=== PATIENT | male | born 1950 | race Caucasian/White ===

== ENCOUNTER 2016-11-29 15:45 | Inpatient (IN) | payer OTHER ==
[~2016-11-29] VITALS: Ht 172.7 cm; Wt 66.5 kg
[~2016-11-29 15:45] MED LIST: LSN10 PO; NRV5 PO
[2016-11-29] MEDS ORDERED: SODIUM CHLORIDE 0.9% 500ML 500 ML IV STA (16:05)
[2016-11-29] MEDS ORDERED: HYOSCYAMINE SULFATE 0.125 MG SL TAB SL STA (16:05)
[2016-11-29] MEDS ORDERED: ONDANSETRON INJ 2 MG/ML 2 ML VIAL IV STA (16:05)
[2016-11-29 16:19] LABS: HEMATOCRIT 31.1 % (42-52); MEAN CELL VOLUME 87.6 fL (80-100); MEAN CORPUSCULAR HGB CONC 33.1 g/dl (32-36); MEAN PLATELET VOLUME 8.6 fL (7.4-10.4); PLATELET COUNT 176 K/uL (130-400); RED BLOOD COUNT 3.55 M/uL (4.7-6.1); WHITE BLOOD COUNT 11.56 K/uL (4.8-10.8)
[2016-11-29 16:43] LABS: BASO % 0.1 %; BASO ABS # 0.01 K/uL (0-0.2); COMPLETE YES; EOS % 0.2 %; IG% 0.3 %; LYMPH % 2.9 %; LYMPH ABS # 0.33 K/uL (1.2-3.4); MONO % 0.1 %; NEUT % 96.4 %
[2016-11-29 16:47] LABS: ALT/SGPT 9 U/L (12-78); AST/SGOT 14 U/L (15-37); BLOOD UREA NITROGEN 16 mg/dl (7-18); CALCIUM 8.6 mg/dl (8.5-10.1); CARBON DIOXIDE 22 mmol/L (21-32); CHLORIDE 111 mmol/L (98-107); CREATININE 0.93 mg/dl (0.60-1.40); GLUCOSE 96 mg/dl (70-99); POTASSIUM 3.4 mmol/L (3.5-5.1); SODIUM 143 mmol/L (136-145)
[2016-11-29 16:50] LABS: ALKALINE PHOSPHATASE 80 U/L (45-117)
--- NOTE | 2016-11-29 17:50 | EMERGENCY ROOM VISIT NOTE ---
History Report prepared by Heather: Neal Alves Under the Supervision of: Dr. Gian Bell M.D. First contact with patient: 15:55 Chief Complaint: ABDOMINAL PAIN Stated Complaint: AB PAIN, RECTAL BLEEDING, NAUSEA History of Present Illness The patient is a 66 year old male who presents to the Emergency Room with complaints of persistent diffuse abdominal pain since approximately 1400 today. The patient was walking downtown when he started to have the abdominal pain along with nausea. He thought that he would feel better after he had a bowel movement. When he went to the bathroom he noticed bright red blood mixed with his stool. The bright red blood was also on the toilet paper. He could not tell what color the stool was. The pain did not resolve after the bowel movement. The patient's last normal bowel movement was yesterday. He did not have diarrhea. He has not had any fevers. The patient is not on blood thinners. He does not have a history of hemorrhoids. The patient is currently homeless. The patient believes that the bleeding is caused by something he had at [facility]. Source of History: patient Onset: 1400 today Position: abdomen (diffuse) Symptom Intensity: moderate Quality: other ("nausea") Timing: other (persistent) Modifying Factors (Relieving): other (Not relived by bowel movement.) Associated Symptoms: + hematochezia, + nausea, No diarrhea, No fevers Review of Systems See HPI for pertinent positives & negatives. A total of 10 systems reviewed and were otherwise negative. 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 Surgical Problems: (1) Status post orchiectomy Social History Problems: (1) Pseudomonas Infect Nos (2) Syncope (3) Ulcer Of Other Part Of Lower Limb Family History No pertinent family history Social History Smoking Status: Former Smoker Alcohol Use: none Marital Status: single Housing Status: other Occupation Status: unemployed Current/Historical Medications No Active Prescriptions or Reported Meds Allergies Coded Allergies: Horse Dander (Verified Allergy, Unknown, HORSE HAIR, 08/26/16) Tetanus Toxoid (Verified Allergy, Unknown, 08/26/16) Physical Exam Vital Signs Date Time Temp Pulse Resp B/P Pulse Ox O2 Delivery O2 Flow Rate FiO2 11/29/16 16:15 105 11/29/16 16:01 36.4 99 18 182/88 99 Room Air Physical Exam Constitutional: Vital signs reviewed. Eyes: Pupils are equal round reactive to light. Conjunctiva are noninjected. ENT: Pharynx is clear without erythema or exudate. Mucous membranes are moist. Neck supple without meningeal signs. Respiratory: Clear to auscultation bilaterally. Breath sounds are equal bilaterally. Cardiovascular: Regular rate and rhythm. No rubs or gallops. GI: Soft, nondistended with mild diffuse tenderness. Bowel sounds are present. Rectal: Guaiac positive brown stool with bright red blood. External hemorrhoids. Musculoskeletal: Right leg lymphedema. Integumentary: No cyanosis. Neurological: The patient is awake and alert. No focal deficits. Psychiatric: Normal affect. Medical Decision & Procedures Laboratory Results 11/29/16 16:00 Red Blood Count 3.55, Mean Corpuscular Volume 87.6, Mean Corpuscular Hemoglobin 29.0, Mean Corpuscular Hemoglobin Concent 33.1, Mean Platelet Volume 8.6, Neutrophils (%) (Auto) 96.4, Lymphocytes (%) (Auto) 2.9, Monocytes (%) (Auto) 0.1, Eosinophils (%) (Auto) 0.2, Basophils (%) (Auto) 0.1, Neutrophils # (Auto) 11.16, Lymphocytes # (Auto) 0.33, Monocytes # (Auto) 0.01, Eosinophils # (Auto) 0.02, Basophils # (Auto) 0.01 11/29/16 16:00 Test 11/29/16 16:00 White Blood Count 11.56 K/uL (4.8-10.8) Red Blood Count 3.55 M/uL (4.7-6.1) Hemoglobin 10.3 g/dL (14.0-18.0) Hematocrit 31.1 % (42-52) Mean Corpuscular Volume 87.6 fL (80-100) Mean Corpuscular Hemoglobin 29.0 pg (25-34) Mean Corpuscular Hemoglobin Concent 33.1 g/dl (32-36) Platelet Count 176 K/uL (130-400) Mean Platelet Volume 8.6 fL (7.4-10.4) Neutrophils (%) (Auto) 96.4 % Lymphocytes (%) (Auto) 2.9 % Monocytes (%) (Auto) 0.1 % Eosinophils (%) (Auto) 0.2 % Basophils (%) (Auto) 0.1 % Neutrophils # (Auto) 11.16 K/uL (1.4-6.5) Lymphocytes # (Auto) 0.33 K/uL (1.2-3.4) Monocytes # (Auto) 0.01 K/uL (0.11-0.59) Eosinophils # (Auto) 0.02 K/uL (0-0.5) Basophils # (Auto) 0.01 K/uL (0-0.2) RDW Standard Deviation 48.5 fL (36.4-46.3) RDW Coefficient of Variation 15.1 % (11.5-14.5) Immature Granulocyte % (Auto) 0.3 % Immature Granulocyte # (Auto) 0.03 K/uL (0.00-0.02) Red Blood Cell Morphology Unremarkable Anion Gap 10.0 mmol/L (3-11) Est Creatinine Clear Calc Drug Dose 77.6 ml/min Estimated GFR () 100.2 Estimated GFR (Non- 86.5 BUN/Creatinine Ratio 17.0 (10-20) Calcium Level 8.6 mg/dl (8.5-10.1) Total Bilirubin 0.4 mg/dl (0.2-1) Direct Bilirubin < 0.1 mg/dl (0-0.2) Aspartate Amino Transf (AST/SGOT) 14 U/L (15-37) Alanine Aminotransferase (ALT/SGPT) 9 U/L (12-78) Alkaline Phosphatase 80 U/L (45-117) Total Protein 6.7 gm/dl (6.4-8.2) Albumin 2.9 gm/dl (3.4-5.0) Lipase 138 U/L (73-393) Laboratory results as reviewed by me. Medications Administered Medications (Trade) Dose Ordered Sig/Marilyn Route Start Time Stop Time Status Last Admin Dose Admin Ondansetron HCl (Zofran Inj) 4 mg NOW STAT IV 11/29/16 16:05 11/29/16 16:08 DC 11/29/16 16:30 4 MG Hyoscyamine Sulfate 0.125 mg 0.125 mg NOW STAT SL 11/29/16 16:05 11/29/16 16:08 DC 11/29/16 16:30 0.125 MG Sodium Chloride (Nss 500ml) 500 ml @ 999 mls/hr Q31M STAT IV 11/29/16 16:05 11/29/16 16:35 DC 11/29/16 16:29 999 MLS/HR ED Course 1558: The patient was evaluated in room B8. A complete history and physical exam was performed. 1605: NSS 500 ml @ 999 mls/hr, Levsin 0.125 mg SL, Zofran 4 mg IV. Medical Decision This is a 66-year-old male who presents with abdominal pain and rectal bleeding. Differential diagnosis includes colitis, mass, hemorrhoids, enteritis , anemia. I did perform a limited focused review of portions of the patient's old chart on the electronic medical record. The patient was admitted in October of last year for cellulitis of the right lower extremity. He had a CT abdomen & pelvis on October 25 showing persistent thickening of the rectum and chronic mild gallbladder wall thickening. I did evaluate the patient as noted above. IV access was established. I did treat patient with Zofran IV. I did order and review the patient's blood work as noted in the electronic medical record. His hemoglobin is 10.3 which is not unusually low for him. I did order a CT of the abdomen and pelvis. This is pending at this time. The patient was signed out to Dr. Marlow. Impression Primary Impression: Rectal bleeding Additional Impressions: Anemia Acute generalized abdominal pain Scribe Attestation The scribe's documentation has been prepared under my direct and personally reviewed by me in its entirety. I confirm that the note above accurately reflects all work, treatment, procedures, and medical decision making performed by me. Departure Information Dispostion Still a Patient Prescriptions No Active Prescriptions or Reported Meds Referrals No Doctor, Assigned (PCP) Patient Instructions A Signature Page Problem Qualifiers Additional Impressions: Anemia Anemia type: unspecified type Qualified Codes: D64.9 - Anemia, unspecified
[2016-11-29 18:53] LABS: URINE APPEARANCE CLEAR (CLEAR); URINE BILIRUBIN NEG (NEG); URINE COLOR YELLOW; URINE NITRITE NEG (NEG); URINE SPECIFIC GRAVITY 1.007 (1.000-1.030); UROBILINOGEN NEG (NEG)
[2016-11-29 18:59] LABS: MANUAL MICROSCOPIC REQUIRED? NO; REVIEW REQ? NO
[2016-11-29] MEDS ORDERED: OPTIRAY 320 IV PRN (19:00)
--- NOTE | 2016-11-29 19:44 | DIAGNOSTIC IMAGING REPORT ---
ADDENDUM Addendum: The last sentence of the findings in the initial report is incorrect. It should read that there is no evidence for a bowel obstruction. Electronically signed by: Terence Donahue M.D. 11/30/2016 10:07 AM Dictated Date/Time: 11/30/2016 10:[address] OF THE ABDOMEN AND PELVIS WITH CONTRAST CLINICAL HISTORY: Abdominal pain, rectal bleeding and nausea. COMPARISON STUDY: CT of the abdomen and pelvis October 25, 2016. TECHNIQUE: Following IV administration of 135 mL of Optiray-320, axial images of the abdomen and pelvis were obtained from the lung bases to the proximal femurs. Images were reviewed in the axial, sagittal, and coronal planes. IV contrast was administered without complication. Oral contrast was administered. A second scan was performed given IV malfunction on the initial attempt. CT DOSE: 767.78 mGy.cm FINDINGS: The heart is moderately enlarged. Mild biliary ductal dilatation is unchanged. Trace pericholecystic fluid is unchanged. Right renal atrophy is again noted. The spleen, adrenal glands, left kidney and pancreas are normal. There is no pancreatic ductal dilatation. No peripancreatic infiltration is present. 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 This was shown on multiple prior exams. Lower extremity edema is unchanged since prior exam. Right groin infiltration is unchanged. This may be postsurgical. There is extensive atherosclerotic plaque within the major vessels of the abdomen. No pneumatosis, free air or portal venous gas is present. There are no suspicious osseous lesions. A few mildly enlarged inguinal lymph nodes are unchanged. Sensitivity for detection of mucosal lesions is diminished given CT technique. There is mild rectal wall thickening. A definite mass is not identified although sensitivity is diminished given CT technique. There is no convincing evidence for proctitis or colitis. There is evidence for a bowel obstruction. IMPRESSION: 1. No definite acute process within the abdomen or pelvis. 2. Mild rectal wall thickening. This may be due to underdistention. Proctitis is considered less likely. Sensitivity for detection of mucosal lesions is significantly diminished given CT technique. No discrete mass identified. 3. 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 No change in right thigh and groin infiltration since prior exam. Electronically signed by: Terence Donahue M.D. 11/29/2016 7:42 PM Dictated Date/Time: 11/29/2016 7:27 PM
[2016-11-29] MEDS ORDERED: POTASSIUM CHLORIDE 10 MEQ TABCR PO SCH (21:00)
[2016-11-29] MEDS ORDERED: AMLODIPINE BESYLATE 5 MG TAB PO SCH (21:00)
--- NOTE | 2016-11-29 21:22 | History and Physical ---
History & Physical Date & Time of Service: Nov 29, 2016 at 21:01 Chief Complaint: Abdominal Pain, Rectal Bleeding Primary Care Physician: No Doctor, Assigned History of Present Illness 66 year old male who presents to the ER with reports of generalized abdominal pain and rectal bleeding. Patient was recently discharged from [facility] 11/09 for when he was treated for LLE cellulitis. Patient reports that today he developed generalized abdominal pain. He had a formed bowel movement and reports there was bright red blood. He denies nausea or vomiting. He denies chest pain and shortness of breath. No lightheadedness, dizziness, or syncope. No fever or chills. Says his lower extremity wounds are doing "ok". In the ER, patient is mildly tachycardic in the low 100s. Hgb is 10.3. Rectal exam in the ER revealed bright red blood. Past Medical/Surgical History Medical Problems: (1) History of adenomatous polyp of colon Status: Chronic (2) History of DVT of lower extremity Permanent Comment: not safe candidate for anticoagulation; declined IVC filter Status: Chronic (3) History of testicular cancer Permanent Comment: seminoma; s/p orchiectomy + radical lymphatic dissection Status: Chronic (4) HTN (hypertension) Permanent Comment: declines to take medication Status: Chronic (5) Hypertension Nos Permanent Comment: declines to take medications Status: Chronic (6) Hypothyroidism Permanent Comment: declines to take medications Status: Chronic (7) Influenza Status: Resolved (8) Lymphedema of right lower extremity Status: Chronic (9) Sacroiliitis Nec Permanent Comment: Pseudomonas septic arthritis right SI joint Status: Resolved (10) Schizophrenia Nos-Unspec Status: Chronic (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 Status: Chronic Surgical Problems: (1) Status post orchiectomy Permanent Comment: testicular Ca Status: Chronic Family History No pertinent family history Social History Smoking Status: Former Smoker Alcohol Use: none Housing status: other (homeless) Multi-Drug Resistant Organisms History of MDRO: No Allergies Coded Allergies: Horse Dander (Verified Allergy, Unknown, HORSE HAIR, 08/26/16) Tetanus Toxoid (Verified Allergy, Unknown, 08/26/16) Home Medications No Active Prescriptions or Reported Meds Review of Systems 10 point review of systems was completed with the pertinent positives and negatives noted per the HPI Physical Exam Vital Signs Date Time Temp Pulse Resp B/P Pulse Ox O2 Delivery O2 Flow Rate FiO2 11/29/16 20:14 113 11/29/16 20:00 110 24 150/77 99 Room Air 11/29/16 18:00 111 26 170/84 96 Room Air 11/29/16 16:15 105 11/29/16 16:01 36.4 99 18 182/88 99 Room Air General Appearance: + mild distress (moaning at times due to abdominal pain ) Head: normocephalic Eyes: normal inspection ENT: hearing grossly normal Neck: supple, no JVD Respiratory/Chest: lungs clear, normal breath sounds, no respiratory distress Cardiovascular: + tachycardia (normal rhythm ), + pertinent finding (+3 edema BLLE R>L, chronic lymphedema) Abdomen/GI: normal bowel sounds, soft, + tenderness (generalized) Extremities/Musculoskelatal: normal inspection, no calf tenderness Neurologic/Psych: no motor/sensory deficits, alert, oriented x 3, + pertinent finding (does not open eyes much during exam, moaning in pain at times, does not offer much detailed history) Skin: + pertinent finding (BLLE with chronic lymphedema R>L, rippled skin, RLE wounds covered in bandaging) Diagnostics Laboratory Results Results Past 24 Hours Test 11/29/16 16:00 11/29/16 18:22 11/29/16 20:57 Range/Units White Blood Count 11.56 4.8-10.8 K/uL Red Blood Count 3.55 4.7-6.1 M/uL Hemoglobin 10.3 14.0-18.0 g/dL Hematocrit 31.1 42-52 % Mean Corpuscular Volume 87.6 80-100 fL Mean Corpuscular Hemoglobin 29.0 25-34 pg Mean Corpuscular Hemoglobin Concent 33.1 32-36 g/dl Platelet Count 176 130-400 K/uL Mean Platelet Volume 8.6 7.4-10.4 fL Neutrophils (%) (Auto) 96.4 % Lymphocytes (%) (Auto) 2.9 % Monocytes (%) (Auto) 0.1 % Eosinophils (%) (Auto) 0.2 % Basophils (%) (Auto) 0.1 % Neutrophils # (Auto) 11.16 1.4-6.5 K/uL Lymphocytes # (Auto) 0.33 1.2-3.4 K/uL Monocytes # (Auto) 0.01 0.11-0.59 K/uL Eosinophils # (Auto) 0.02 0-0.5 K/uL Basophils # (Auto) 0.01 0-0.2 K/uL RDW Standard Deviation 48.5 36.4-46.3 fL RDW Coefficient of Variation 15.1 11.5-14.5 % Immature Granulocyte % (Auto) 0.3 % Immature Granulocyte # (Auto) 0.03 0.00-0.02 K/uL Red Blood Cell Morphology Unremarkable Sodium Level 143 136-145 mmol/L Potassium Level 3.4 3.5-5.1 mmol/L Chloride Level 111 98-107 mmol/L Carbon Dioxide Level 22 21-32 mmol/L Anion Gap 10.0 3-11 mmol/L Blood Urea Nitrogen 16 7-18 mg/dl Creatinine 0.93 0.60-1.40 mg/dl Est Creatinine Clear Calc Drug Dose 77.6 ml/min Estimated GFR () 100.2 Estimated GFR (Non- 86.5 BUN/Creatinine Ratio 17.0 10-20 Random Glucose 96 70-99 mg/dl Calcium Level 8.6 8.5-10.1 mg/dl Total Bilirubin 0.4 0.2-1 mg/dl Direct Bilirubin < 0.1 0-0.2 mg/dl Aspartate Amino Transf (AST/SGOT) 14 15-37 U/L Alanine Aminotransferase (ALT/SGPT) 9 12-78 U/L Alkaline Phosphatase 80 45-117 U/L Total Protein 6.7 6.4-8.2 gm/dl Albumin 2.9 3.4-5.0 gm/dl Lipase 138 73-393 U/L Urine Color YELLOW Urine Appearance CLEAR CLEAR Urine pH 5.0 4.5-7.5 Urine Specific [place] 1.007 1.000-1.030 Urine Protein NEG NEG Urine Glucose (UA) NEG NEG Urine Ketones NEG NEG Urine Occult Blood NEG NEG Urine Nitrite NEG NEG Urine Bilirubin NEG NEG Urine Urobilinogen NEG NEG Urine Leukocyte Esterase NEG NEG Diagnostic Radiology CT ABD/PELVIS IMPRESSION: 1. No definite acute process within the abdomen or pelvis. 2. Mild rectal wall thickening. This may be due to underdistention. Proctitis is considered less likely. Sensitivity for detection of mucosal lesions is significantly diminished given CT technique. No discrete mass identified. 3. 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 No change in right thigh and groin infiltration since prior exam. Impression Assessment and Plan ABDOMINAL PAIN, BRIGHT RED BLEEDING PER RECTUM - admit to med/surg - ? due to hemorrhoids - CT abd/pelvis unremarkable - slightly tachycardic, BP stable, hgb stable - IVF - serial H/H - GI consult in AM HTN - BP elevated, declines to take medications when out of the hospital - usual meds while admitted - Norvasc 5mg, Lisinopril 10mg - resume these and make adjustments as needed CHRONIC RLE WOUNDS, LYMPHEDEMA - wound care nurse consult HYPOTHYROIDISM - patient declines to take meds HX DVT - not a good candidate for anticoagulation, declined IVC filter in the past DVT PROPHYLAXIS - unable to use pharmacologic prophylaxis due to rectal bleeding and unable to use SCDs due to chronic LE wounds and lymphedema DISPO - In my clinical judgment this beneficiary meets acute admission criteria, established by [facility], that includes being hospitalized through two midnights. Attending Addendum: The patient was seen and examined in ER Not been taking any medications since discharge from the hospital Not feeling well ,has had some abdominal pain followed by 2 x Bright red rectal bleed O/E No distress at rest HEENT-unremarkable Chest-clear to auscultate bilaterally Heart -regular,no murmur Abdomen-benign,no masses,bowel sound present Extremities-Has bilateral Lymphedema.Right >>Left Chronic leg ulceration right leg [employer] Labs and Imaging studies were reviewed Has BRRB with Mild Tachycardia and Stable Hb Agree with the assessment and plan. Dr Beatriz Gonzalez VTE Prophylaxis VTE Risk Assessment Done? Y/N: Yes Risk Level: Moderate
--- NOTE | 2016-11-29 21:34 | EMERGENCY ROOM VISIT NOTE ---
ED Visit Note Patient is a 66-year-old male who presents the ER for bright red blood per rectum. He had 2 episodes this associated with diffuse abdominal pain. Patient was initially seen by Dr. Johnson and rectal was performed which was heme positive. Labs were obtained and resulted showing fairly stable hemoglobin. Patient was signed out to me awaiting CT scan. He was unable to drink the oral contrast and consequently CT with IV contrast is performed. This showed a questionable colitis however on reevaluation he is still fairly tachycardic in the low 100s. He is having persistent pain. Based on this I elected to admit the patient to internal medicine for GI bleed and tachycardia. Systolic pressures remained stable. I did discuss case at [address] Gonzalez from [facility].
[2016-11-29 22:24] VITALS: BP 155/79; PULSE 101; TEMP 37; O2SAT 97; Ht 172.7 cm; Wt 66.5 kg
[2016-11-29 23:27] VITALS: BP 124/64; PULSE 96; TEMP 37.5; O2SAT 97
[2016-11-29] MEDS: LISINOPRIL 10 MG TAB PO SCH (23:57)
[2016-11-29] MEDS: SODIUM CHLORIDE 0.9% 1000ML 1,000 ML IV SCH (23:58)
[2016-11-30 00:41] VITALS: BP 138/71; PULSE 96
[2016-11-30] MEDS: KETOROLAC TROMETHAMINE 15 MG/ML VIAL IV PRN ×4 (02:03→23:48)
[2016-11-30] MEDS: SODIUM CHLORIDE 0.9% 1000ML 1,000 ML IV SCH ×2 (06:55→16:14)
[2016-11-30 07:24] VITALS: BP 131/62; PULSE 86; TEMP 37.1; O2SAT 98
[2016-11-30] MEDS ORDERED: PNEUMOCOCCAL POLYSACCHARIDES 25 MCG/0.5 ML VIAL/SYR IM. ONE (08:00)
[2016-11-30] MEDS: AMLODIPINE BESYLATE 5 MG TAB PO SCH (08:00)
[2016-11-30] MEDS ORDERED: INFLUENZA VIRUS QUAD VACCINE 0.5 ML SYR IM. ONE (08:00)
[2016-11-30] MEDS ORDERED: PNEUMOCOCCAL ADMINISTRATION CHARGE ONE (08:00)
[2016-11-30] MEDS ORDERED: INFLUENZA ADMINISTRATION CHARGE ONE (08:00)
[2016-11-30] MEDS: LISINOPRIL 10 MG TAB PO SCH (08:00)
[2016-11-30 09:01] LABS: MEAN CELL VOLUME 87.5 fL (80-100); MEAN CORPUSCULAR HEMOGLOBIN 28.4 pg (25-34); MEAN CORPUSCULAR HGB CONC 32.5 g/dl (32-36); MEAN PLATELET VOLUME 8.3 fL (7.4-10.4); PLATELET COUNT 127 K/uL (130-400)
[2016-11-30 09:31] LABS: CALCIUM 8.1 mg/dl (8.5-10.1); CREATININE 1.1 mg/dl (0.60-1.40); POTASSIUM 3.5 mmol/L (3.5-5.1)
--- NOTE | 2016-11-30 10:16 | Gastrointestinal Consultation ---
Gastrointestinal Consultation Date of Consultation: Nov 30, 2016 Consulting Physician: Dr. Purcell Reason for Consultation: rectal bleeding, abd pain History of Present Illness Patient is a 66 year old male, poor history. Past medical history was gathered from previous records and is significant for cellulitis, anemia, schizophrenia, testicular CA s/p orchidectomy (unknown date and course of treatment) adenomatous polyp of the colon (unknown date of colonoscopy) who presented to the ED with abdominal pain and rectal bleeding. He states that he was in his "normal" state of health until yesterday afternoon. He states that the only food he consumed was from [employer] and that he normally eats food from there. He reports generalized abdominal pain that does not radiate. There is associated nausea. No vomiting. He reports bright red blood per rectum with bowel movements. He states that his abdominal pain is unchanged after a BM. He denies dizziness, lightheadedness, SOB, chest pain. He reports right leg pain secondary to cellulitis. He is complaining of a BARRETT at this time. He was made NPO overnight, however, the patient is refusing to proceed with either an EGD or a colonoscopy. ROS were reviewed and negative except as above CT abd 11/30/16: No definite acute process within the abdomen or pelvis. Mild rectal wall thickening. This may be due to underdistention. Proctitis is considered less likely. Sensitivity for detection of mucosal lesions is significantly diminished given CT technique. No discrete mass identified. 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 No change in right thigh and groin infiltration since prior exam. Past Medical/Surgical History Medical Problems: (1) Acute generalized abdominal pain Status: Acute (2) Anemia Status: Acute (3) Cellulitis of right lower extremity Status: Acute (4) Dizziness Status: Acute (5) Facial contusion Status: Acute (6) Hypertension Nos Permanent Comment: declines to take medications Status: Chronic (7) Rectal bleeding Status: Acute (8) Renal failure Status: Acute (9) Sepsis Status: Acute (10) Small bowel obstruction Status: Acute (11) TSH elevation Status: Acute (12) Vomiting Status: Acute (13) Weakness Status: Acute (14) Wound of right lower extremity Status: Acute Social History Problems: (1) Ambulatory dysfunction Status: Acute (2) Cellulitis Status: Acute (3) Cellulitis and abscess of leg Status: Acute (4) Cellulitis of right leg Status: Acute (5) Cellulitis of right leg Status: Acute (6) Cellulitis of right lower extremity Status: Acute (7) Cellulitis of right lower extremity Status: Acute (8) Cellulitis of right lower extremity Status: Acute (9) Cellulitis of right lower extremity Status: Acute (10) Chronic acquired lymphedema Status: Acute (11) Diarrhea Status: Acute (12) Facial contusion Status: Acute (13) Fever Status: Acute (14) Nausea Status: Acute (15) Partial small bowel obstruction Status: Acute (16) Sepsis Status: Acute (17) Shortness of breath Status: Acute (18) 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 (19) Weakness Status: Acute Family History No pertinent family history Social History Smoking Status: Former Smoker Alcohol Use: none Housing Status: other Allergies Coded Allergies: Horse Dander (Verified Allergy, Unknown, HORSE HAIR, 08/26/16) Tetanus Toxoid (Verified Allergy, Unknown, 08/26/16) Current Medications Home Meds and Scripts Medications Dose Route/Sig Max Daily Dose Days Date Category No Active Prescriptions or Reported Medications Rx Review of Systems Constitutional: No chills, No fever Respiratory: No cough, No shortness of breath Cardiac: + edema, No chest pain Abdomen: + GI bleeding, + nausea, + pain, No constipation, No diarrhea, No vomiting Physical Exam Date Time Temp Pulse Resp B/P Pulse Ox O2 Delivery O2 Flow Rate FiO2 11/30/16 07:46 Room Air 11/30/16 07:24 37.1 86 16 131/62 98 Room Air 11/30/16 00:41 96 138/71 11/29/16 23:27 37.5 96 18 124/64 97 Room Air 11/29/16 23:20 Room Air 11/29/16 22:29 36.4 103 20 128/69 96 11/29/16 22:24 37.0 101 20 155/79 97 Room Air 11/29/16 22:00 103 20 128/69 96 Room Air 11/29/16 20:14 113 11/29/16 20:00 110 24 150/77 99 Room Air 11/29/16 18:00 111 26 170/84 96 Room Air 11/29/16 16:15 105 11/29/16 16:01 36.4 99 18 182/88 99 Room Air General Appearance: + mild distress (patient is restless in bed) Eyes: PERRL ENT: hearing grossly normal Neck: supple, trachea midline Respiratory/Chest: lungs clear, normal breath sounds, no respiratory distress, no accessory muscle use Cardiovascular: regular rate, rhythm, no gallop, no JVD, no murmur, + pertinent finding (bilateral lower leg extremitiy, significant right leg cellulitis ) Abdomen: normal bowel sounds, soft, no organomegaly, no pulsatile mass, + tenderness (generalized tenderness x 4 quadrants ) Extremities: + pertinent finding (cellulitis ) Neurologic/Psych: alert, normal mood/affect, oriented x 3 Skin: normal color, no jaundice, warm/dry, no rash Laboratory Results Last 24 Hours Test 11/29/16 16:00 11/29/16 18:22 11/29/16 23:46 11/30/16 08:40 White Blood Count 11.56 K/uL 9.60 K/uL Red Blood Count 3.55 M/uL 3.20 M/uL Hemoglobin 10.3 g/dL 9.7 g/dL 9.1 g/dL Hematocrit 31.1 % 29.0 % 28.0 % Mean Corpuscular Volume 87.6 fL 87.5 fL Mean Corpuscular Hemoglobin 29.0 pg 28.4 pg Mean Corpuscular Hemoglobin Concent 33.1 g/dl 32.5 g/dl Platelet Count 176 K/uL 127 K/uL Mean Platelet Volume 8.6 fL 8.3 fL Neutrophils (%) (Auto) 96.4 % Lymphocytes (%) (Auto) 2.9 % Monocytes (%) (Auto) 0.1 % Eosinophils (%) (Auto) 0.2 % Basophils (%) (Auto) 0.1 % Neutrophils # (Auto) 11.16 K/uL Lymphocytes # (Auto) 0.33 K/uL Monocytes # (Auto) 0.01 K/uL Eosinophils # (Auto) 0.02 K/uL Basophils # (Auto) 0.01 K/uL RDW Standard Deviation 48.5 fL 51.0 fL RDW Coefficient of Variation 15.1 % 15.8 % Immature Granulocyte % (Auto) 0.3 % Immature Granulocyte # (Auto) 0.03 K/uL Red Blood Cell Morphology Unremarkable Sodium Level 143 mmol/L 143 mmol/L Potassium Level 3.4 mmol/L 3.5 mmol/L Chloride Level 111 mmol/L 112 mmol/L Carbon Dioxide Level 22 mmol/L 20 mmol/L Anion Gap 10.0 mmol/L 11.0 mmol/L Blood Urea Nitrogen 16 mg/dl 17 mg/dl Creatinine 0.93 mg/dl 1.10 mg/dl Est Creatinine Clear Calc Drug Dose 77.6 ml/min 63.8 ml/min Estimated GFR () 100.2 81.8 Estimated GFR (Non- 86.5 70.6 BUN/Creatinine Ratio 17.0 15.0 Random Glucose 96 mg/dl 86 mg/dl Calcium Level 8.6 mg/dl 8.1 mg/dl Magnesium Level 1.7 mg/dl Total Bilirubin 0.4 mg/dl Direct Bilirubin < 0.1 mg/dl Aspartate Amino Transf (AST/SGOT) 14 U/L Alanine Aminotransferase (ALT/SGPT) 9 U/L Alkaline Phosphatase 80 U/L Total Protein 6.7 gm/dl Albumin 2.9 gm/dl Lipase 138 U/L Urine Color YELLOW Urine Appearance CLEAR Urine pH 5.0 Urine Specific [place] 1.007 Urine Protein NEG Urine Glucose (UA) NEG Urine Ketones NEG Urine Occult Blood NEG Urine Nitrite NEG Urine Bilirubin NEG Urine Urobilinogen NEG Urine Leukocyte Esterase NEG Test 11/30/16 09:06 Impression Patient is a 66 year old male with generalized abdominal pain, nausea, BRBPR with stooling with a HGB of 9.[address] of the abdomen that is unremarkable. Differentials include infectious colitis, hemorrhoidal bleed, diverticular bleed, ischemic colitis, proctitis Patient is refusing proceeding with either an EGD or a colonoscopy Plan Stool studies Zofran PRN nausea Trend H&H Transfuse PRN Patient will not consent to any invasive GI procedures GI will advance diet and sign off Please call with any questions or concerns. ATTESTATION: I have performed a history and physical examination of this patient and reviewed the electronic record. Specifically, on extensive conversation with the patient, he continues to refuse endoscopic evaluation of his bleeding, even though he recognizes the risk of missing a cancer or precancerous lesion. I have discussed the case with IAIN Bravo. The above note reflects my findings, conclusions, and recommendations. Darian Purcell MD
[2016-11-30 15:08] VITALS: BP 116/73; PULSE 78; TEMP 37.1; O2SAT 100
[2016-11-30 16:07] LABS: HEMATOCRIT 29.7 % (42-52)
[2016-11-30] MEDS: ONDANSETRON INJ 2 MG/ML 2 ML VIAL IV PRN ×2 (16:14→23:47)
--- NOTE | 2016-11-30 17:29 | Progress Note ---
Medicine Progress Note Date & Time of Visit: Nov 30, 2016 at 17:28. Subjective Patient is adamantly refusing any scopes, states he feels weak and achy all over. Reports he has not eaten since the day of admission. No overnight events noted. No other complaints at this time. Objective Last 8 Hrs Date Time Temp Pulse Resp B/P Pulse Ox O2 Delivery O2 Flow Rate FiO2 11/30/16 15:08 37.1 78 16 116/73 100 Room Air Physical Exam: GENERAL: Patient is in no acute distress. HEENT: No acute trauma, normocephalic, mucous membranes moist, no nasal congestion, no scleral icterus. NECK: No stridor, trachea is midline LUNGS: Clear to auscultation bilaterally, no wheeze, no rhonchi, breath sounds equal. HEART: Without murmurs gallops or rubs, regular rate and rhythm. ABDOMEN: Soft, nontender, bowel sounds positive EXTREMITIES: No cyanosis; + LE edema R>L NEUROLOGIC: Oriented x 3, no acute motor or sensory deficits, no focal weakness. SKIN: No jaundice, no diaphoresis, right leg with multiple ulcerations and cobblestone appearance Laboratory Results: Last 24 Hours Test 11/29/16 18:22 11/29/16 23:46 11/30/16 08:40 11/30/16 15:59 Urine Color YELLOW Urine Appearance CLEAR Urine pH 5.0 Urine Specific [place] 1.007 Urine Protein NEG Urine Glucose (UA) NEG Urine Ketones NEG Urine Occult Blood NEG Urine Nitrite NEG Urine Bilirubin NEG Urine Urobilinogen NEG Urine Leukocyte Esterase NEG Hemoglobin 9.7 g/dL 9.1 g/dL 9.8 g/dL Hematocrit 29.0 % 28.0 % 29.7 % White Blood Count 9.60 K/uL Red Blood Count 3.20 M/uL Mean Corpuscular Volume 87.5 fL Mean Corpuscular Hemoglobin 28.4 pg Mean Corpuscular Hemoglobin Concent 32.5 g/dl RDW Standard Deviation 51.0 fL RDW Coefficient of Variation 15.8 % Platelet Count 127 K/uL Mean Platelet Volume 8.3 fL Sodium Level 143 mmol/L Potassium Level 3.5 mmol/L Chloride Level 112 mmol/L Carbon Dioxide Level 20 mmol/L Anion Gap 11.0 mmol/L Blood Urea Nitrogen 17 mg/dl Creatinine 1.10 mg/dl Est Creatinine Clear Calc Drug Dose 63.8 ml/min Estimated GFR () 81.8 Estimated GFR (Non- 70.6 BUN/Creatinine Ratio 15.0 Random Glucose 86 mg/dl Calcium Level 8.1 mg/dl Hepatitis C Antibody Screen NEG Assessment & Plan ABDOMINAL PAIN, BRIGHT RED BLEEDING PER RECTUM: -Hb at 9.1 -no additional bleeding per patient since admission -? if due to hemorrhoids -CT abd/pelvis unremarkable -was slightly tachycardic, BP stable -IV fluids continued -serial Hb -GI consulted, patient refused endoscopic evaluation HTN: -BP elevated, but continuously refuses to take medications when out of the hospital -resumed Norvasc 5mg, Lisinopril 10mg; titrate as needed CHRONIC RLE WOUNDS, LYMPHEDEMA: -wound care nurse consulted, appreciate recs HYPOTHYROIDISM: per history -refuses to take meds Current Inpatient Medications: Current Inpatient Medications Medications (Trade) Dose Ordered Sig/Marilyn Route Start Time Stop Time Status Last Admin Dose Admin Ioversol (Optiray 320) 125 ml UD PRN IV 11/29/16 19:00 12/03/16 18:59 Acetaminophen (Tylenol Tab) 650 mg Q4H PRN PO 11/29/16 21:00 12/29/16 20:59 Ondansetron HCl 4 mg 4 mg Q6H PRN IV 11/29/16 21:00 12/29/16 20:59 11/30/16 16:14 4 MG Sodium Chloride (Nss 1000ml) 1,000 ml @ 100 mls/hr Q10H IV 11/29/16 21:00 12/29/16 20:59 11/30/16 16:14 100 MLS/HR Lisinopril (Zestril Tab) 10 mg QAM PO 11/29/16 21:00 12/29/16 20:59 11/30/16 08:00 10 MG Amlodipine Besylate (Norvasc Tab) 5 mg QAM PO 11/30/16 09:00 12/30/16 08:59 11/30/16 08:00 5 MG Ketorolac Tromethamine (Toradol Inj) 15 mg Q6H PRN IV 11/30/16 00:30 12/05/16 00:29 11/30/16 16:14 15 MG
[2016-11-30 23:37] VITALS: BP 152/79; PULSE 75; TEMP 36.9; O2SAT 99
[2016-12-01] MEDS: SODIUM CHLORIDE 0.9% 1000ML 1,000 ML IV SCH ×2 (02:19→12:15)
[2016-12-01 07:39] VITALS: BP 167/85; PULSE 78; TEMP 36.8; O2SAT 96
[2016-12-01] MEDS: KETOROLAC TROMETHAMINE 15 MG/ML VIAL IV PRN (07:57)
[2016-12-01] MEDS: AMLODIPINE BESYLATE 5 MG TAB PO SCH (07:57)
[2016-12-01] MEDS: LISINOPRIL 10 MG TAB PO SCH (07:57)
[2016-12-01] MEDS: ACETAMINOPHEN 325 MG TAB PO PRN (07:58)
[2016-12-01 10:06] LABS: HEMATOCRIT 27.5 % (42-52); MEAN CELL VOLUME 87.6 fL (80-100); MEAN CORPUSCULAR HGB CONC 33.1 g/dl (32-36); MEAN PLATELET VOLUME 8.8 fL (7.4-10.4); PLATELET COUNT 117 K/uL (130-400); RED BLOOD COUNT 3.14 M/uL (4.7-6.1); WHITE BLOOD COUNT 5.12 K/uL (4.8-10.8)
[2016-12-01 10:43] LABS: BUN/CREATININE RATIO 18.2 (10-20); CALCIUM 7.9 mg/dl (8.5-10.1); CREATININE 0.94 mg/dl (0.60-1.40); POTASSIUM 3.8 mmol/L (3.5-5.1)
[2016-12-01 13:00] VITALS: BP 151/73
[2016-12-01 14:59] VITALS: BP 145/91; PULSE 66; TEMP 36.6; O2SAT 98
--- NOTE | 2016-12-01 19:29 | Progress Note ---
Medicine Progress Note Date & Time of Visit: Dec 01, 2016 at 19:29. Subjective Patient reports left sided rib pain and fears he fell and possibly fractured his ribs. Had a BM which he states was dark but no bright red blood. Tolerating PO but reports some nausea earlier today. No overnight events noted. Objective Last 8 Hrs Date Time Temp Pulse Resp B/P Pulse Ox O2 Delivery O2 Flow Rate FiO2 12/01/16 15:30 Room Air 12/01/16 14:59 36.6 66 18 145/91 98 Room Air 12/01/16 13:00 151/73 Physical Exam: GENERAL: Patient is in no acute distress. HEENT: No acute trauma, normocephalic, mucous membranes moist, no nasal congestion, no scleral icterus. NECK: No stridor, trachea is midline LUNGS: Clear to auscultation bilaterally, no wheeze, no rhonchi, breath sounds equal. HEART: Without murmurs gallops or rubs, regular rate and rhythm. ABDOMEN: Soft, nontender, bowel sounds positive EXTREMITIES: No cyanosis; + LE edema R>L NEUROLOGIC: Oriented x 3, no acute motor or sensory deficits, no focal weakness. SKIN: No jaundice, no diaphoresis, right leg with multiple ulcerations and cobblestone appearance Laboratory Results: Last 24 Hours Test 12/01/16 09:56 White Blood Count 5.12 K/uL Red Blood Count 3.14 M/uL Hemoglobin 9.1 g/dL Hematocrit 27.5 % Mean Corpuscular Volume 87.6 fL Mean Corpuscular Hemoglobin 29.0 pg Mean Corpuscular Hemoglobin Concent 33.1 g/dl RDW Standard Deviation 51.4 fL RDW Coefficient of Variation 15.9 % Platelet Count 117 K/uL Mean Platelet Volume 8.8 fL Sodium Level 146 mmol/L Potassium Level 3.8 mmol/L Chloride Level 117 mmol/L Carbon Dioxide Level 20 mmol/L Anion Gap 9.0 mmol/L Blood Urea Nitrogen 17 mg/dl Creatinine 0.94 mg/dl Est Creatinine Clear Calc Drug Dose 74.7 ml/min Estimated GFR () 98.9 Estimated GFR (Non- 85.3 BUN/Creatinine Ratio 18.2 Random Glucose 83 mg/dl Calcium Level 7.9 mg/dl Assessment & Plan ABDOMINAL PAIN, BRIGHT RED BLEEDING PER RECTUM: -Hb at 9.1 -no additional bleeding per patient since admission -? if due to hemorrhoids -CT abd/pelvis unremarkable -was slightly tachycardic, BP stable -IV fluids stopped as patient now taking PO -monitor serial Hb -GI consulted, patient refused endoscopic evaluation -check for influenza HTN: -BP elevated, but continuously refuses to take medications when out of the hospital -resumed Norvasc 5mg, Lisinopril 10mg; titrate as needed CHRONIC RLE WOUNDS, LYMPHEDEMA: -wound care nurse consulted, appreciate recs HYPOTHYROIDISM: per history -refuses to take meds RIB PAIN: -check CXR for rib fractures Current Inpatient Medications: Current Inpatient Medications Medications (Trade) Dose Ordered Sig/Marilyn Route Start Time Stop Time Status Last Admin Dose Admin Ioversol (Optiray 320) 125 ml UD PRN IV 11/29/16 19:00 12/03/16 18:59 Acetaminophen (Tylenol Tab) 650 mg Q4H PRN PO 11/29/16 21:00 12/29/16 20:59 12/01/16 07:58 650 MG Ondansetron HCl (Zofran Inj) 4 mg Q6H PRN IV 11/29/16 21:00 12/29/16 20:59 11/30/16 23:47 4 MG Lisinopril (Zestril Tab) 10 mg QAM PO 11/29/16 21:00 12/29/16 20:59 12/01/16 07:57 10 MG Amlodipine Besylate (Norvasc Tab) 5 mg QAM PO 11/30/16 09:00 12/30/16 08:59 12/01/16 07:57 5 MG Ketorolac Tromethamine (Toradol Inj) 15 mg Q6H PRN IV 11/30/16 00:30 12/05/16 00:29 12/01/16 07:57 15 MG
--- NOTE | 2016-12-01 21:47 | DIAGNOSTIC IMAGING REPORT ---
LEFT RIBS UNILATERAL WITH PA CHEST CLINICAL HISTORY: Left rib pain status post trauma COMPARISON STUDY: CT scan the chest dated 10/25/2016 FINDINGS: The heart is enlarged. There is mild azygous distention. Small pleural effusions are suspected.. No pneumothorax is visualized. No left-sided rib fractures are visualized. Left basilar opacities, are likely atelectatic IMPRESSION: 1. No evidence of pneumothorax. No left-sided rib fractures are visualized 2. Cardiomegaly, azygos distention, and suspected small bilateral pleural effusions Electronically signed by: Villa Almeida M.D. 12/01/2016 9:45 PM Dictated Date/Time: 12/01/2016 9:43 PM
[2016-12-01 23:04] VITALS: BP 165/83; PULSE 68; TEMP 36.8; O2SAT 99
[2016-12-02 02:39] LABS: INFLUENZA A PCR Neg for Influ A (NEG); INFLUENZA B PCR Neg for Influ B (NEG)
[2016-12-02 07:44] VITALS: BP 131/97; PULSE 76; TEMP 36.8; O2SAT 98
[2016-12-02] MEDS: ACETAMINOPHEN 325 MG TAB PO PRN (07:56)
[2016-12-02] MEDS: KETOROLAC TROMETHAMINE 15 MG/ML VIAL IV PRN (07:56)
[2016-12-02 08:04] VITALS: O2SAT 98
[2016-12-02 09:14] VITALS: BP 160/80; PULSE 65
[2016-12-02] MEDS: LISINOPRIL 10 MG TAB PO SCH (09:15)
[2016-12-02] MEDS: AMLODIPINE BESYLATE 5 MG TAB PO SCH (09:16)
[2016-12-02 09:44] LABS: HEMATOCRIT 28.3 % (42-52); MEAN CELL VOLUME 87.3 fL (80-100); MEAN CORPUSCULAR HGB CONC 33.2 g/dl (32-36); MEAN PLATELET VOLUME 8.9 fL (7.4-10.4); PLATELET COUNT 127 K/uL (130-400); RED BLOOD COUNT 3.24 M/uL (4.7-6.1); WHITE BLOOD COUNT 6.02 K/uL (4.8-10.8)
[2016-12-02 15:11] VITALS: BP 156/81; PULSE 70; TEMP 36.8; O2SAT 98
[2016-12-02] MEDS: ONDANSETRON INJ 2 MG/ML 2 ML VIAL IV PRN (16:22)
[2016-12-02] MEDS: TRAMADOL HCL 50 MG TAB PO PRN (17:55)
--- NOTE | 2016-12-02 18:30 | Progress Note ---
Medicine Progress Note Date & Time of Visit: Dec 02, 2016 at 18:30. Subjective Patient reports feeling malaise, states he still has nausea and has been taking zofran. Reports poor appetite. No overnight events noted. No emesis. No additional diarrhea or rectal bleeding noted. Objective Last 8 Hrs Date Time Temp Pulse Resp B/P Pulse Ox O2 Delivery O2 Flow Rate FiO2 12/02/16 15:11 36.8 70 18 156/81 98 Room Air Physical Exam: GENERAL: Patient is in no acute distress. HEENT: No acute trauma, normocephalic, mucous membranes moist, no nasal congestion, no scleral icterus. NECK: No stridor, trachea is midline LUNGS: Clear to auscultation bilaterally, no wheeze, no rhonchi, breath sounds equal. HEART: Without murmurs gallops or rubs, regular rate and rhythm. ABDOMEN: Soft, nontender, bowel sounds positive EXTREMITIES: No cyanosis; + LE edema R>L NEUROLOGIC: Oriented x 3, no acute motor or sensory deficits, no focal weakness. SKIN: No jaundice, no diaphoresis, right leg with multiple ulcerations and cobblestone appearance Laboratory Results: Last 24 Hours Test 12/01/16 22:15 12/02/16 09:32 Influenza Type A (RT-PCR) Neg for Influ A Influenza Type B (RT-PCR) Neg for Influ B White Blood Count 6.02 K/uL Red Blood Count 3.24 M/uL Hemoglobin 9.4 g/dL Hematocrit 28.3 % Mean Corpuscular Volume 87.3 fL Mean Corpuscular Hemoglobin 29.0 pg Mean Corpuscular Hemoglobin Concent 33.2 g/dl RDW Standard Deviation 49.8 fL RDW Coefficient of Variation 15.5 % Platelet Count 127 K/uL Mean Platelet Volume 8.9 fL Assessment & Plan ABDOMINAL PAIN, BRIGHT RED BLEEDING PER RECTUM: -Hb stable at 9.5 today -no additional bleeding per patient since admission -? if due to hemorrhoids -CT abd/pelvis unremarkable -was slightly tachycardic, BP stable -IV fluids stopped as patient now taking PO -monitor serial Hb -GI consulted, patient refused endoscopic evaluation -check for influenza: negative -stool cultures still pending as patient has not had a BM yet HTN: -BP elevated, but continuously refuses to take medications when out of the hospital -resumed Norvasc 5mg, Lisinopril 10mg; titrate as needed CHRONIC RLE WOUNDS, LYMPHEDEMA: -wound care nurse consulted, appreciate recs HYPOTHYROIDISM: per history -refuses to take meds RIB PAIN: -CXR for rib fractures; negative -PRN pain control Current Inpatient Medications: Current Inpatient Medications Medications (Trade) Dose Ordered Sig/Marilyn Route Start Time Stop Time Status Last Admin Dose Admin Ioversol (Optiray 320) 125 ml UD PRN IV 11/29/16 19:00 12/03/16 18:59 Acetaminophen (Tylenol Tab) 650 mg Q4H PRN PO 11/29/16 21:00 12/29/16 20:59 12/02/16 07:56 650 MG Ondansetron HCl (Zofran Inj) 4 mg Q6H PRN IV 11/29/16 21:00 12/29/16 20:59 12/02/16 16:22 4 MG Amlodipine Besylate (Norvasc Tab) 5 mg QAM PO 11/30/16 09:00 12/30/16 08:59 12/02/16 09:16 5 MG Ketorolac Tromethamine (Toradol Inj) 15 mg Q6H PRN IV 11/30/16 00:30 12/05/16 00:29 12/02/16 07:56 15 MG Lisinopril (Zestril Tab) 20 mg QAM PO 12/03/16 09:00 01/02/17 08:59 Tramadol HCl (Ultram Tab) 50 mg Q6 PRN PO 12/02/16 17:15 01/01/17 17:14 12/02/16 17:55 50 MG
[2016-12-02 23:03] VITALS: BP 165/95; PULSE 64; TEMP 36.7; O2SAT 98
[2016-12-03 07:19] VITALS: BP_SYST 181; BP_SYST 182; BP_DIAS 100; BP_DIAS 91; PULSE 58; TEMP 36.4; O2SAT 99
[2016-12-03] MEDS: AMLODIPINE BESYLATE 5 MG TAB PO SCH (08:14)
[2016-12-03] MEDS: LISINOPRIL 20 MG TAB PO SCH (08:34)
[2016-12-03 11:19] LABS: HEMATOCRIT 29.6 % (42-52); MEAN CELL VOLUME 87.3 fL (80-100); MEAN CORPUSCULAR HGB CONC 32.1 g/dl (32-36); MEAN PLATELET VOLUME 8.8 fL (7.4-10.4); PLATELET COUNT 158 K/uL (130-400); RED BLOOD COUNT 3.39 M/uL (4.7-6.1); WHITE BLOOD COUNT 4.56 K/uL (4.8-10.8)
[2016-12-03 12:12] LABS: BUN/CREATININE RATIO 12.6 (10-20); CALCIUM 7.9 mg/dl (8.5-10.1); CREATININE 0.84 mg/dl (0.60-1.40); MAGNESIUM 1.9 mg/dl (1.8-2.4); POTASSIUM 3.6 mmol/L (3.5-5.1)
[2016-12-03 14:54] VITALS: BP 187/66; PULSE 59; TEMP 36.4; O2SAT 100
[2016-12-03] MEDS ORDERED: AMLODIPINE BESYLATE 5 MG TAB PO ONE (15:15)
[2016-12-03 17:06] VITALS: BP 188/89; PULSE 61; TEMP 36.7; O2SAT 99
[2016-12-03] MEDS: TRAMADOL HCL 50 MG TAB PO PRN (18:40)
--- NOTE | 2016-12-03 19:17 | Progress Note ---
Medicine Progress Note Date & Time of Visit: Dec 03, 2016 at 19:17. Subjective Patient reports feeling "rough" but does not elaborate. States the nausea has been better. States he has been tolerating 1 meal a day which is how he normally eats when not in the hospital. Had a BM that was slightly watery. No overnight events noted. No specific complaints. Objective Last 8 Hrs Date Time Temp Pulse Resp B/P Pulse Ox O2 Delivery O2 Flow Rate FiO2 12/03/16 17:06 36.7 61 16 188/89 99 Room Air 12/03/16 15:35 Room Air 12/03/16 14:54 36.4 59 16 187/66 100 Room Air Physical Exam: GENERAL: Patient is in no acute distress. HEENT: No acute trauma, normocephalic, mucous membranes moist, no nasal congestion, no scleral icterus. NECK: No stridor, trachea is midline LUNGS: Clear to auscultation bilaterally, no wheeze, no rhonchi, breath sounds equal. HEART: Without murmurs gallops or rubs, regular rate and rhythm. ABDOMEN: Soft, nontender, bowel sounds positive EXTREMITIES: No cyanosis; + LE edema R>L NEUROLOGIC: Oriented x 3, no acute motor or sensory deficits, no focal weakness. SKIN: No jaundice, no diaphoresis, right leg with multiple ulcerations and cobblestone appearance Laboratory Results: Last 24 Hours Test 12/03/16 11:05 White Blood Count 4.56 K/uL Red Blood Count 3.39 M/uL Hemoglobin 9.5 g/dL Hematocrit 29.6 % Mean Corpuscular Volume 87.3 fL Mean Corpuscular Hemoglobin 28.0 pg Mean Corpuscular Hemoglobin Concent 32.1 g/dl RDW Standard Deviation 48.8 fL RDW Coefficient of Variation 15.1 % Platelet Count 158 K/uL Mean Platelet Volume 8.8 fL Sodium Level 141 mmol/L Potassium Level 3.6 mmol/L Chloride Level 109 mmol/L Carbon Dioxide Level 25 mmol/L Anion Gap 7.0 mmol/L Blood Urea Nitrogen 11 mg/dl Creatinine 0.84 mg/dl Est Creatinine Clear Calc Drug Dose 83.6 ml/min Estimated GFR () 107.2 Estimated GFR (Non- 92.5 BUN/Creatinine Ratio 12.6 Random Glucose 81 mg/dl Calcium Level 7.9 mg/dl Magnesium Level 1.9 mg/dl Date/Time Source Procedure Growth Status 12/03/16 10:42 Stool C.difficile Toxin B Gene (PCR) - Final No C. difficile toxin B gene detected Complete 12/03/16 10:42 Stool Rotavirus Antigen - Final Negative for Rotavirus Antigen Complete 12/03/16 10:42 Stool Shiga Toxin Test Pending Received 12/03/16 10:42 Stool Stool Culture Pending Received Assessment & Plan ABDOMINAL PAIN, BRIGHT RED BLEEDING PER RECTUM: -Hb stable at 9.5 today -no additional bleeding per patient since admission -? if due to hemorrhoids -CT abd/pelvis unremarkable -was slightly tachycardic, BP stable -IV fluids stopped as patient now taking adequate PO -monitor Hb -GI consulted, patient refused endoscopic evaluation -influenza: negative -stool cultures still pending -rotavirus and c diff negative HTN: -BP elevated, but continuously refuses to take medications when out of the hospital -resumed Norvasc 5mg, Lisinopril 20mg; titrate as needed CHRONIC RLE WOUNDS, LYMPHEDEMA: -wound care nurse consulted, appreciate recs HYPOTHYROIDISM: per history -refuses to take meds RIB PAIN: -CXR for rib fractures; negative -PRN pain control Current Inpatient Medications: Current Inpatient Medications Medications (Trade) Dose Ordered Sig/Marilyn Route Start Time Stop Time Status Last Admin Dose Admin Acetaminophen (Tylenol Tab) 650 mg Q4H PRN PO 11/29/16 21:00 12/29/16 20:59 12/02/16 07:56 650 MG Ondansetron HCl (Zofran Inj) 4 mg Q6H PRN IV 11/29/16 21:00 12/29/16 20:59 12/02/16 16:22 4 MG Amlodipine Besylate (Norvasc Tab) 5 mg QAM PO 11/30/16 09:00 12/30/16 08:59 12/03/16 08:14 5 MG Ketorolac Tromethamine (Toradol Inj) 15 mg Q6H PRN IV 11/30/16 00:30 12/05/16 00:29 12/02/16 07:56 15 MG Lisinopril (Zestril Tab) 20 mg QAM PO 12/03/16 09:00 01/02/17 08:59 1/14/17 08:34 20 MG Tramadol HCl (Ultram Tab) 50 mg Q6 PRN PO 12/02/16 17:15 01/01/17 17:14 12/03/16 18:40 50 MG
[2016-12-03 21:47] VITALS: BP 154/90; PULSE 67; TEMP 36.6; O2SAT 96
[2016-12-03 22:56] VITALS: BP 157/91; PULSE 60; TEMP 36.6; O2SAT 97
[2016-12-04 07:15] VITALS: BP 174/89; PULSE 57; TEMP 36.5; O2SAT 98
[2016-12-04] MEDS: LISINOPRIL 20 MG TAB PO SCH (08:34)
[2016-12-04] MEDS: AMLODIPINE BESYLATE 5 MG TAB PO SCH (08:34)
[2016-12-04 15:22] VITALS: BP 154/87; PULSE 63; TEMP 36.6; O2SAT 98
--- NOTE | 2016-12-04 19:03 | Progress Note ---
Medicine Progress Note Date & Time of Visit: Dec 04, 2016 at 19:03. Subjective Patient states he feels ok, was slightly nauseated after a shower but no vomiting and did not take any zofran. No overnight events noted. Denies any diarrhea or blood in stool. Denies any other complaints at this time. Objective Last 8 Hrs Date Time Temp Pulse Resp B/P Pulse Ox O2 Delivery O2 Flow Rate FiO2 12/04/16 15:45 Room Air 12/04/16 15:22 36.6 63 18 154/87 98 Room Air Physical Exam: GENERAL: Patient is in no acute distress. HEENT: No acute trauma, normocephalic, mucous membranes moist, no nasal congestion, no scleral icterus. NECK: No stridor, trachea is midline LUNGS: Clear to auscultation bilaterally, no wheeze, no rhonchi, breath sounds equal. HEART: Without murmurs gallops or rubs, regular rate and rhythm. ABDOMEN: Soft, nontender, bowel sounds positive EXTREMITIES: No cyanosis; + LE edema R>L NEUROLOGIC: Oriented x 3, no acute motor or sensory deficits, no focal weakness. SKIN: No jaundice, no diaphoresis, right leg with multiple ulcerations and cobblestone appearance Assessment & Plan ABDOMINAL PAIN, BRIGHT RED BLEEDING PER RECTUM: -Hb stable at 9.5 today -no additional bleeding per patient since admission -? if due to hemorrhoids -CT abd/pelvis unremarkable -was slightly tachycardic, BP stable -IV fluids stopped as patient taking adequate PO -monitor Hb, trending up with no additional bleeding noted -GI consulted, patient refused endoscopic evaluation -influenza: negative -stool cultures negative -rotavirus and c diff negative HTN: -BP elevated, but continuously refuses to take medications when out of the hospital -resumed Norvasc 5mg, Lisinopril 20mg; titrate as needed CHRONIC RLE WOUNDS, LYMPHEDEMA: -wound care nurse consulted, appreciate recs -no odor/discharge/or surrounding erythema to suggest infection HYPOTHYROIDISM: per history -refuses to take meds RIB PAIN: -CXR for rib fractures; negative -PRN pain control Current Inpatient Medications: Current Inpatient Medications Medications (Trade) Dose Ordered Sig/Marilyn Route Start Time Stop Time Status Last Admin Dose Admin Acetaminophen (Tylenol Tab) 650 mg Q4H PRN PO 11/29/16 21:00 12/29/16 20:59 12/02/16 07:56 650 MG Ondansetron HCl (Zofran Inj) 4 mg Q6H PRN IV 11/29/16 21:00 12/29/16 20:59 12/02/16 16:22 4 MG Amlodipine Besylate (Norvasc Tab) 5 mg QAM PO 11/30/16 09:00 12/30/16 08:59 12/04/16 08:34 5 MG Ketorolac Tromethamine (Toradol Inj) 15 mg Q6H PRN IV 11/30/16 00:30 12/05/16 00:29 12/02/16 07:56 15 MG Lisinopril (Zestril Tab) 20 mg QAM PO 12/03/16 09:00 01/02/17 08:59 12/04/16 08:34 20 MG Tramadol HCl (Ultram Tab) 50 mg Q6 PRN PO 12/02/16 17:15 01/01/17 17:14 12/03/16 18:40 50 MG
[2016-12-04] MEDS: TRAMADOL HCL 50 MG TAB PO PRN (19:50)
[2016-12-04] MEDS: ONDANSETRON INJ 2 MG/ML 2 ML VIAL IV PRN (19:51)
[2016-12-04] MEDS: ACETAMINOPHEN 325 MG TAB PO PRN (21:02)
[2016-12-04] MEDS: KETOROLAC TROMETHAMINE 15 MG/ML VIAL IV PRN (21:02)
[2016-12-04 23:22] VITALS: BP 114/74; PULSE 59; TEMP 36.9; O2SAT 96
[2016-12-05 06:19] LABS: HEMATOCRIT 30.3 % (42-52); MEAN CELL VOLUME 86.6 fL (80-100); MEAN CORPUSCULAR HEMOGLOBIN 28.3 pg (25-34); MEAN CORPUSCULAR HGB CONC 32.7 g/dl (32-36); MEAN PLATELET VOLUME 9.1 fL (7.4-10.4); PLATELET COUNT 217 K/uL (130-400); WHITE BLOOD COUNT 3.96 K/uL (4.8-10.8)
[2016-12-05 06:47] LABS: CALCIUM 8.3 mg/dl (8.5-10.1); CREATININE 0.95 mg/dl (0.60-1.40); POTASSIUM 4.3 mmol/L (3.5-5.1)
[2016-12-05 07:15] VITALS: BP 147/81; PULSE 48; TEMP 36.5; O2SAT 99
[2016-12-05 08:01] VITALS: PULSE 62
[2016-12-05] MEDS: AMLODIPINE BESYLATE 5 MG TAB PO SCH (08:01)
[2016-12-05] MEDS: LISINOPRIL 20 MG TAB PO SCH (08:01)
[2016-12-05] MEDS ORDERED: LSN20 PO (13:38)
[2016-12-05] MEDS ORDERED: NRV5 PO (13:38)
--- NOTE | 2016-12-05 13:42 | Discharge Instructions ---
Discharge Instructions Admission Reason for Admission: Rectal Bleeding Discharge Discharge Diagnosis / Problem: Rectal bleeding Discharge Goals Goal(s): Therapeutic intervention Activity Recommendations Activity Limitations: as noted below Exercise/Sports Limitations: rest today, gradually increase as tolerated . Instructions / Follow-Up Instructions / Follow-Up If you are able to get to [facility] you will be able to obtain your prescriptions and medical care free of charge. Current Hospital Diet Patient's current hospital diet: Regular Diet, AHA Diet (Heart Healthy) Discharge Diet Recommended Diet: AHA Diet (Heart Healthy), Low Sodium Diet (2gm Na) Pending Studies Studies pending at discharge: no Medical Emergencies . Who to Call and When: Medical Emergencies: If at any time you feel your situation is an emergency, please call 911 immediately. . Non-Emergent Contact Non-Emergency issues call your: Hospital Doctor . . "Provider Documentation" section prepared by Soha Yoon. VTE Core Measure Inpt VTE Proph given/why not?: Treatment not indicated
--- NOTE | 2016-12-05 13:57 | Discharge Summary ---
Discharge Summary Admission Date: Nov 29, 2016 at 20:56 Discharge Date: Dec 05, 2016 Discharge Disposition: Home Principal Diagnosis: Rectal bleeding Consultations: GI Pending Studies/Follow-Up: Encouraged follow up at [facility] Medication Reconciliation New Medications: Amlodipine Besylate (Amlodipine Besylate) 5 Mg Tab 5 MG PO QAM, #30 TAB Lisinopril (Lisinopril) 20 Mg Tab 20 MG PO QAM, #30 TAB Admission Information HPI (per Admitting provider): 66 year old male who presents to the ER with reports of generalized abdominal pain and rectal bleeding. Patient was recently discharged from [facility] 11/09 for when he was treated for LLE cellulitis. Patient reports that today he developed generalized abdominal pain. He had a formed bowel movement and reports there was bright red blood. He denies nausea or vomiting. He denies chest pain and shortness of breath. No lightheadedness, dizziness, or syncope. No fever or chills. Says his lower extremity wounds are doing "ok". In the ER, patient is mildly tachycardic in the low 100s. Hgb is 10.3. Rectal exam in the ER revealed bright red blood. Physical Exam (per Admitting): General Appearance: + mild distress (moaning at times due to abdominal pain ) Head: normocephalic Eyes: normal inspection ENT: hearing grossly normal Neck: supple, no JVD Respiratory/Chest: lungs clear, normal breath sounds, no respiratory distress Cardiovascular: + tachycardia (normal rhythm ), + pertinent finding (+3 edema BLLE R>L, chronic lymphedema) Abdomen/GI: normal bowel sounds, soft, + tenderness (generalized) Extremities/Musculoskelatal: normal inspection, no calf tenderness Neurologic/Psych: no motor/sensory deficits, alert, oriented x 3, + pertinent finding (does not open eyes much during exam, moaning in pain at times , does not offer much detailed history) Skin: + pertinent finding (BLLE with chronic lymphedema R>L, rippled skin, RLE wounds covered in bandaging) Hospital Course ABDOMINAL PAIN, BRIGHT RED BLEEDING PER RECTUM: -Hb stable at 9.9 today -no additional bleeding per patient since admission -? if due to hemorrhoids -CT abd/pelvis unremarkable -was initially slightly tachycardic, BP stable -IV fluids stopped as patient taking adequate PO -monitor Hb, trending up with no additional bleeding noted -GI consulted, patient refused endoscopic evaluation -influenza: negative -stool cultures negative -rotavirus and c diff negative HTN: -BP elevated, but continuously refuses to take medications when out of the hospital -resumed Norvasc 5mg, Lisinopril 20mg; titrate as needed -pharmacy able to provide homepak for 48 hours only, patient encouraged to get scripts from [facility] or pharmacy downtown CHRONIC RLE WOUNDS, LYMPHEDEMA: -wound care nurse consulted, appreciate recs -no odor/discharge/or surrounding erythema to suggest infection -dressing changes as specified by wound care HYPOTHYROIDISM: per history -refuses to take meds RIB PAIN: -CXR for rib fractures; negative -PRN pain control PHYSICAL EXAM ON DAY OF DISCHARGE: GENERAL: Patient is in no acute distress. Appears unkempt. HEENT: No acute trauma, normocephalic, mucous membranes moist, no nasal congestion, no scleral icterus. NECK: No stridor, trachea is midline. LUNGS: Clear to auscultation bilaterally, no wheeze, no rhonchi, breath sounds equal. HEART: Without murmurs gallops or rubs, regular rate and rhythm. ABDOMEN: Soft, nontender, bowel sounds positive EXTREMITIES: No cyanosis; LE lymphedema R>L NEUROLOGIC: Oriented x 3, no acute motor or sensory deficits, no focal weakness. SKIN: No jaundice, no diaphoresis. RLE with multiple shallow ulcerations, no purulence, scant serous drainage Total time spent on discharge = 35 This includes examination of the patient, discharge planning, medication reconciliation, and communication with other providers. Discharge Instructions 12/05/16 05:40 12/05/16 05:40 Test 12/05/16 05:40 Red Blood Count 3.50 M/uL (4.7-6.1) Mean Corpuscular Volume 86.6 fL (80-100) Mean Corpuscular Hemoglobin 28.3 pg (25-34) Mean Corpuscular Hemoglobin Concent 32.7 g/dl (32-36) RDW Standard Deviation 48.1 fL (36.4-46.3) RDW Coefficient of Variation 15.2 % (11.5-14.5) Mean Platelet Volume 9.1 fL (7.4-10.4) Anion Gap 8.0 mmol/L (3-11) Est Creatinine Clear Calc Drug Dose 73.9 ml/min Estimated GFR () 97.7 Estimated GFR (Non- 84.3 BUN/Creatinine Ratio 17.0 (10-20) Calcium Level 8.3 mg/dl (8.5-10.1) Lipase 112 U/L (73-393)
[2016-12-05] MEDS ORDERED: LISINOPRIL 20 MG TAB PO ONE (14:00)
[2016-12-05] MEDS ORDERED: AMLODIPINE BESYLATE 5 MG TAB PO SCH (14:00)
[2016-12-05] MEDS ORDERED: AMLODIPINE BESYLATE 5 MG TAB PO ONE (14:00)
[2016-12-05] MEDS ORDERED: LISINOPRIL 20 MG TAB PO SCH (14:00)
[2016-12-05 14:12] VITALS: BP 147/81; PULSE 62; TEMP 36.5; O2SAT 99
[2016-12-05] MEDS: ONDANSETRON INJ 2 MG/ML 2 ML VIAL IV PRN (14:50)
[2017-02-06] MEDS ORDERED: LSN10 PO (12:05)
[2017-02-06] MEDS ORDERED: [UNRECOGNIZED DRUG - CODE] TD (12:05)
[2017-02-06] MEDS ORDERED: ONDA8TAB62 SL (12:05)
== END 2016-12-05 16:00 | disposition home or self-care (01) | DRG 378 ==
LOC: ENRESERVTM → ENRESERVDT → EDBD 15:45 → C.EDB 15:46 → C.MSW 20:56
PROVIDERS: ADMIT Internal Medicine; ATTEND Internal Medicine
DX: K62.5 Hemorrhage of anus and rectum (principal); L97.919 Non-pressure chronic ulcer of unspecified part of right lower leg with unspecified severity; R10.9 Unspecified abdominal pain; R00.0 Tachycardia, unspecified; R07.81 Pleurodynia; D64.9 Anemia, unspecified; I89.0 Lymphedema, not elsewhere classified; I10 Essential (primary) hypertension; E03.9 Hypothyroidism, unspecified; F20.9 Schizophrenia, unspecified; Z91.14 Patient's other noncompliance with medication regimen; Z53.29 Procedure and treatment not carried out because of patient's decision for other reasons; Z59.0 Homelessness; Z87.891 Personal history of nicotine dependence; Z86.718 Personal history of other venous thrombosis and embolism

== ENCOUNTER 2016-12-26 01:42 | Emergency (ER) | payer OTHER ==
[~2016-12-26] VITALS: Ht 172.7 cm; Wt 74.2 kg
[~2016-12-26 01:42] MED LIST changes: -LSN10 PO; +LSN20 PO
[2016-12-26 01:47] VITALS: TEMP 36.5; Ht 172.7 cm; Wt 74.2 kg
[2016-12-26] MEDS ORDERED: SODIUM CHLORIDE 0.9% 1000ML 1,000 ML IV STA ×2 (02:06)
[2016-12-26 02:20] VITALS: O2SAT 98
[2016-12-26 02:41] LABS: ISTAT CREATININE 0.9 mg/dl (0.6-1.3); ISTAT HEMOGLOBIN 9.2 g/dl (14.0-18.0); ISTAT IONIZED CALCIUM 1.16 mmol/l (1.12-1.32)
[2016-12-26 03:52] LABS: BASO % 0.2 %; BASO ABS # 0.01 K/uL (0-0.2); COMPLETE YES; HEMATOCRIT 29.5 % (42-52); LYMPH % 13.5 %; LYMPH ABS # 0.67 K/uL (1.2-3.4); MEAN CELL VOLUME 87.8 fL (80-100); MEAN CORPUSCULAR HEMOGLOBIN 28.3 pg (25-34); MEAN CORPUSCULAR HGB CONC 32.2 g/dl (32-36); MEAN PLATELET VOLUME 8.9 fL (7.4-10.4); MONO % 8.7 %; NEUT % 75.6 %; PLATELET COUNT 216 K/uL (130-400); RED BLOOD COUNT 3.36 M/uL (4.7-6.1); WHITE BLOOD COUNT 4.96 K/uL (4.8-10.8)
[2016-12-26 04:03] LABS: ALT/SGPT 10 U/L (12-78); AST/SGOT 13 U/L (15-37); BLOOD UREA NITROGEN 20 mg/dl (7-18); BUN/CREATININE RATIO 17.9 (10-20); CALCIUM 8.3 mg/dl (8.5-10.1); CARBON DIOXIDE 22 mmol/L (21-32); CHLORIDE 109 mmol/L (98-107); GLUCOSE 115 mg/dl (70-99); MAGNESIUM 1.7 mg/dl (1.8-2.4); POTASSIUM 3.3 mmol/L (3.5-5.1); SODIUM 143 mmol/L (136-145)
[2016-12-26 04:14] LABS: ALKALINE PHOSPHATASE 92 U/L (45-117)
[2016-12-26] MEDS ORDERED: MAGNESIUM SULFATE 1GM / D5W 1 GM BAG IV STA (04:38)
[2016-12-26] MEDS ORDERED: POTASSIUM CHLORIDE 10 MEQ TABCR PO STA (04:38)
--- NOTE | 2016-12-26 06:29 | EMERGENCY ROOM VISIT NOTE ---
History First contact with patient: 01:46 Chief Complaint: FALL Stated Complaint: FALL History of Present Illness The patient is a 66 year old male who presents to the Emergency Room with complaints of fall last night and hit his head when he fell asleep. Patient states he was sitting at a table fell asleep and fell down and hit his head. Patient states he feels slightly fatigued and weak. Patient is homeless with chronic right lower leg lymphedema. Patient denies chest pain, dyspnea, fever, chills, nausea, vomiting, diarrhea, abdominal pain, numbness, tingling. He is not on antibiotics. Patient denies headache. No other complains per patient. Review of Systems See HPI for pertinent positives & negatives. A total of 10 systems reviewed and were otherwise negative. 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 Surgical Problems: (1) Status post orchiectomy Social History Problems: (1) Pseudomonas Infect Nos (2) Syncope (3) Ulcer Of Other Part Of Lower Limb Family History No pertinent family history Social History Smoking Status: Former Smoker Alcohol Use: none Drug Use: none Housing Status: other Current/Historical Medications Scheduled Amlodipine Besylate (Amlodipine Besylate), 5 MG PO QAM Lisinopril (Lisinopril), 20 MG PO QAM Allergies Coded Allergies: Horse Dander (Verified Allergy, Unknown, HORSE HAIR, 12/26/16) Tetanus Toxoid (Verified Allergy, Unknown, 12/26/16) Physical Exam Vital Signs Date Time Temp Pulse Resp B/P Pulse Ox O2 Delivery O2 Flow Rate FiO2 12/26/16 05:55 78 18 149/81 97 Room Air 12/26/16 05:26 78 12/26/16 04:28 67 18 159/77 97 Room Air 12/26/16 02:55 78 17 139/69 97 Room Air 12/26/16 02:20 98 Room Air 12/26/16 01:52 85 12/26/16 01:47 36.5 89 21 187/97 98 Room Air Physical Exam VITALS: Vitals are noted on the nurse's note and reviewed by myself. Vital signs stable. GENERAL: Disheveled male cooperative, in no acute distress, nondiaphoretic, well -developed well-nourished. SKIN: Right lower leg lymphedema with chronic ulcers with no active drainage that appears normal per patient The rest of the skin was without rashes, erythema, edema, or bruising. There is no tenting of the skin. Capillary reflex less than 2 seconds. HEAD: Normocephalic atraumatic. EARS: External auditory canals clear, tympanic membranes pearly lacy without erythema or effusion bilaterally. EYES: Pupils equal round and reactive to light and accommodation. Conjunctivae without injection, sclerae without icterus. Extraocular movements intact. NOSE: Patent, turbinates without inflammation or discharge. No sinus tenderness. MOUTH: Mucous membranes moist. Pharynx without erythema or exudate. Uvula midline. Airway patent. Tongue does not deviate. NECK: Supple without nuchal rigidity. No lymphadenopathy. No thyromegaly. Cervical spine is nontender. No JVD. HEART: Regular rate and rhythm LUNGS: Clear to auscultation bilaterally without wheezes, rales or rhonchi. No dullness to percussion. No retractions or accessory muscle use. ABDOMEN: Positive bowel sounds x 4. Normal tympanic percussion. Soft, nontender, without masses or organomegaly. Gotti sign negative. No guarding or rebound tenderness. MUSCULOSKELETAL: No muscle atrophy noted. Right lower leg lymphedema with chronic ulcers with no active drainage that appears normal per patient NEURO: Patient was alert and oriented to person place and time. Normal sensation to light and sharp touch. No focal neurological deficits. Medical Decision & Procedures Laboratory Results 12/26/16 02:18 Red Blood Count 3.36, Mean Corpuscular Volume 87.8, Mean Corpuscular Hemoglobin 28.3, Mean Corpuscular Hemoglobin Concent 32.2, Mean Platelet Volume 8.9, Neutrophils (%) (Auto) 75.6, Lymphocytes (%) (Auto) 13.5, Monocytes (%) (Auto) 8.7, Eosinophils (%) (Auto) 2.0, Basophils (%) (Auto) 0.2, Neutrophils # (Auto) 3.75, Lymphocytes # (Auto) 0.67, Monocytes # (Auto) 0.43, Eosinophils # (Auto) 0.10, Basophils # (Auto) 0.01 12/26/16 02:18 Test 12/26/16 02:18 12/26/16 02:21 12/26/16 02:26 White Blood Count 4.96 K/uL (4.8-10.8) Red Blood Count 3.36 M/uL (4.7-6.1) Hemoglobin 9.5 g/dL (14.0-18.0) Hematocrit 29.5 % (42-52) Mean Corpuscular Volume 87.8 fL (80-100) Mean Corpuscular Hemoglobin 28.3 pg (25-34) Mean Corpuscular Hemoglobin Concent 32.2 g/dl (32-36) Platelet Count 216 K/uL (130-400) Mean Platelet Volume 8.9 fL (7.4-10.4) Neutrophils (%) (Auto) 75.6 % Lymphocytes (%) (Auto) 13.5 % Monocytes (%) (Auto) 8.7 % Eosinophils (%) (Auto) 2.0 % Basophils (%) (Auto) 0.2 % Neutrophils # (Auto) 3.75 K/uL (1.4-6.5) Lymphocytes # (Auto) 0.67 K/uL (1.2-3.4) Monocytes # (Auto) 0.43 K/uL (0.11-0.59) Eosinophils # (Auto) 0.10 K/uL (0-0.5) Basophils # (Auto) 0.01 K/uL (0-0.2) RDW Standard Deviation 48.6 fL (36.4-46.3) RDW Coefficient of Variation 15.2 % (11.5-14.5) Immature Granulocyte % (Auto) 0.0 % Immature Granulocyte # (Auto) 0.00 K/uL (0.00-0.02) Est Creatinine Clear Calc Drug Dose 65.6 ml/min Estimated GFR () 81.8 Estimated GFR (Non- 70.6 BUN/Creatinine Ratio 17.9 (10-20) Calcium Level 8.3 mg/dl (8.5-10.1) Magnesium Level 1.7 mg/dl (1.8-2.4) Total Bilirubin 0.3 mg/dl (0.2-1) Direct Bilirubin < 0.1 mg/dl (0-0.2) Aspartate Amino Transf (AST/SGOT) 13 U/L (15-37) Alanine Aminotransferase (ALT/SGPT) 10 U/L (12-78) Alkaline Phosphatase 92 U/L (45-117) Total Protein 7.1 gm/dl (6.4-8.2) Albumin 3.0 gm/dl (3.4-5.0) Thyroid Stimulating Hormone (TSH) 8.020 uIu/ml (0.300-4.500) Bedside Hemoglobin 9.2 g/dl (14.0-18.0) Bedside Hematocrit 27 % (42-52) Bedside Sodium 142 mEq/L (135-144) Bedside Potassium 3.3 mEq/L (3.3-5.0) Bedside Chloride 107 mEq/L (101-112) Bedside Total CO2 20 mEq/l (24-31) Anion Gap 19.0 mmol/L (16-25) Bedside Blood Urea Nitrogen 19 mg/dl (7-18) Bedside Creatinine 0.9 mg/dl (0.6-1.3) Bedside Glucose (other) 126 mg/dl (70-99) Bedside Ionized Calcium (Tank) 1.16 mmol/l (1.12-1.32) Bedside Lactic Acid Venous 1.30 mmol/L (0.90-1.70) Medications Administered Medications (Trade) Dose Ordered Sig/Marilyn Route Start Time Stop Time Status Last Admin Dose Admin Sodium Chloride 1,000 ml @ 999 mls/hr Q1H1M STAT IV 12/26/16 02:06 12/26/16 03:06 DC 12/26/16 02:58 999 MLS/HR Sodium Chloride (Nss 1000ml) 1,000 ml @ 125 mls/hr Q8H STAT IV 12/26/16 02:06 12/26/16 10:05 12/26/16 02:06 125 MLS/HR Potassium Chloride (Klor-Con M10) 20 meq NOW STAT PO 12/26/16 04:38 12/26/16 04:39 DC 12/26/16 04:57 20 MEQ Magnesium Sulfate (Magnesium Sulfate) 1 gm NOW STAT IV 12/26/16 04:38 12/26/16 04:39 DC 12/26/16 04:54 1 GM ED Course Prior records/ancillary studies reviewed and summarized above. Nursing notes reviewed. Additional history obtained from EMS. The patient's history was concerning for head injury and fatigue. Differential diagnosis: Etiologies such as metabolic, infection, hypo/hyperglycemia, electrolyte abnormalities, cardiac sources, intracerebral event, toxicologic, neurologic, as well as others were entertained. Physical examination: As above. ER treatment provided: IV Lock Wound care to right lower leg On reassessment the patient felt better. Diagnostics interpretation by me: ECG: Normal sinus, normal intervals, no acute ST-T changes. Impression normal sinus rhythm interpreted by myself The labs revealed mildly low magnesium and potassium this was replaced. Chronic anemia unchanged Negative lactic acid Imaging studies: Head CT was read by stat radiology and negative for intracranial bleed Exam and history seem consistent with head injury with chronic right lower leg lymphedema. Patient was neurovascularly and neurologically intact. No deficits. He was strongly encouraged to follow-up with [facility] for his leg for his ongoing issues. He is counseled on head injuries and signs and symptoms and verbalized understanding of this. Patient had no other medical complaints. He requested to leave. He was discharged in stable condition. Patient was given information on [facility]. He was given a shower and clean clothes. He was given extra dressings for his wound. By the evaluation outlined above emergent etiologies such as infection, electrolyte abnormalities , cardiac sources, intracerebral event, toxologic, neurologic, abnormalities blood glucose, metabolic, as well as others were deemed relatively unlikely. The pt informed about the findings as listed above. All questions were answered and pleased with the treatment. Return instructions were outlined and the patient was discharged in stable condition. Referral: The patient was referred back to primary care physician for follow-up in 2 to 3 days for a recheck of the current condition. Case reviewed with my attending Medical Decision as above Impression Primary Impression: Head injury Additional Impressions: Lymphedema of right lower extremity Anemia Departure Information Dispostion Home / Self-Care Condition GOOD Referrals No Doctor, Assigned (PCP) Patient Instructions [facility] Additional Instructions Read head injury handout and return for any symptoms. Tylenol 1000 mg as needed for pain (Maximum 3000 mg Tylenol in 24 hr period). Avoid alcohol and contact sports/activities for one week and follow up with family doctor prior to returning to these activities if still symptomatic. Ice and elevate head. Keep right lower leg dry and clean. Do daily dressing changes with Xeroform and Kerlix. This was shown to you in the ER. Follow-up with family care in 2-3 days. Return to ER sooner for chest pain, headache, confusion, difficulty breathing, fever, chills, worsening signs or symptoms or as needed. Problem Qualifiers Primary Impression: Head injury Encounter type: initial encounter Qualified Codes: S09.90XA - Unspecified injury of head, initial encounter
--- NOTE | 2016-12-26 07:12 | DIAGNOSTIC IMAGING REPORT ---
CT OF THE HEAD WITHOUT CONTRAST CLINICAL HISTORY: Fall with head injury. COMPARISON STUDY: Head CT February 02, 2016. CT DOSE: 614.27 mGy.cm TECHNIQUE: Helical axial images of the head were obtained without IV contrast. Automated exposure control was utilized for the study. FINDINGS: No acute intracranial hemorrhage, midline shift or mass effect is present. Ventricular system is stable. The basilar cisterns are patent. There are no extra-axial collections. White matter hypodensities are unchanged and suggest small vessel disease. There is no calvarial fracture. Visualized portions of the sinuses and mastoid air cells are clear. IMPRESSION: 1. No acute intracranial findings. 2. No calvarial fracture. Electronically signed by: Terence Donahue M.D. 12/26/2016 7:11 AM Dictated Date/Time: 12/26/2016 7:09 AM
[2016-12-26 07:41] VITALS: BP 135/75; PULSE 78; O2SAT 96
[2017-02-06] MEDS ORDERED: ONDA8TAB62 SL (12:05)
[2017-02-06] MEDS ORDERED: [UNRECOGNIZED DRUG - CODE] TD (12:05)
[2017-02-06] MEDS ORDERED: LSN10 PO (12:05)
== END 2016-12-26 07:41 | disposition home or self-care (01) ==
LOC: EDBD 01:42 → C.EDB 01:43
DX: S09.90XA Unspecified injury of head, initial encounter (principal); I89.0 Lymphedema, not elsewhere classified; L97.919 Non-pressure chronic ulcer of unspecified part of right lower leg with unspecified severity; D64.9 Anemia, unspecified; E87.8 Other disorders of electrolyte and fluid balance, not elsewhere classified; R53.83 Other fatigue; Z59.0 Homelessness; I10 Essential (primary) hypertension; Z79.899 Other long term (current) drug therapy; Z86.718 Personal history of other venous thrombosis and embolism; Z85.47 Personal history of malignant neoplasm of testis; Z87.891 Personal history of nicotine dependence; W08.XXXA Fall from other furniture, initial encounter; Y99.8 Other external cause status

== ENCOUNTER 2017-01-03 01:54 | Inpatient (IN) | payer OTHER ==
[~2017-01-03] VITALS: Ht 172.7 cm; Wt 69.0 kg
[2017-01-03] VITALS (7 sets, daily range): BP systolic 120–189; BP diastolic 67–95; PULSE 63–78; TEMP 36.5–36.6; O2SAT 98–100; Ht 172.7 cm; Wt 69.0 kg
--- NOTE | 2017-01-03 02:10 | EMERGENCY ROOM VISIT NOTE ---
History Report prepared by Heather: Debbie Rodriguez Under the Supervision of: Dr. Agustin Blackwell M.D. First contact with patient: 02:03 Chief Complaint: SYNCOPE (NEAR SYNCOPE) Stated Complaint: NEAR SYNCOPAL EPISODE/NOSEBLEED Nursing Triage Summary: Fell and hit his head. 1 hour later a nose bleed started. Similar episode 3 days ago. 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 The patient states that he was in the bathroom and states it felt like he has a "microsleep" and states he woke up when his face was about to hit the wall. He states he has a small cut to his forehead today from the fall. He states he has a more severe fall 3 days ago where he also hit his head but had a CT scan had no significant findings. The patient states that since his first fall he has felt slower in cognitive function. He denies any neck pain or increase swelling or pain in his legs. 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 Patient denies increased pain or swelling in legs. Review of Systems See HPI for pertinent positives & negatives. A total of 10 systems reviewed and were otherwise negative. Past Medical & Surgical Medical Problems: (1) Cellulitis (2) History of adenomatous polyp of colon (3) History of DVT of lower extremity (4) History of testicular cancer (5) HTN (hypertension) (6) Hypertension Nos (7) Hypothyroidism (8) Influenza (9) Lymphedema of right lower extremity (10) Sacroiliitis Nec (11) Schizophrenia Nos-Unspec (12) Sleepiness (13) Syncope (14) Vocal Cord/Larynx Polyp Surgical Problems: (1) Status post orchiectomy Social History Problems: (1) Pseudomonas Infect Nos (2) Syncope (3) Ulcer Of Other Part Of Lower Limb Family History No pertinent family history Social History Smoking Status: Former Smoker Alcohol Use: none Drug Use: none Housing Status: other Current/Historical Medications No Active Prescriptions or Reported Meds Allergies Coded Allergies: Horse Dander (Verified Allergy, Unknown, HORSE HAIR, 01/03/17) Tetanus Toxoid (Verified Allergy, Unknown, 01/03/17) Physical Exam Vital Signs Date Time Temp Pulse Resp B/P Pulse Ox O2 Delivery O2 Flow Rate FiO2 01/03/17 05:00 85 20 181/94 96 Room Air 01/03/17 03:47 75 18 161/83 99 Room Air 01/03/17 02:05 77 01/03/17 01:57 36.4 72 176/95 100 Room Air Physical Exam GENERAL: Patient is unkept and malnourished appearing. HEENT: Abrasion over left forehead, normocephalic atraumatic, mucous membranes moist, no nasal congestion, no scleral icterus. NECK: No stridor, no adenopathy, no meningismus, trachea is midline. LUNGS: No dyspnea. Clear to auscultation and equal bilaterally. No wheeze, no rhonchi. HEART: Regular rate and rhythm. No murmurs, rubs, gallops appreciated. ABDOMEN: Soft, nontender, bowel sounds positive, no masses appreciated, no peritonitis. BACK: No midline tenderness, no CVA tenderness EXTREMITIES: Normal motion all extremities, no cyanosis, bilateral leg lymphedema. NEUROLOGIC: Alert and oriented, no acute motor or sensory deficits, no focal weakness, cranial nerves grossly intact. SKIN: No rash, no jaundice, no diaphoresis. Medical Decision & Procedures ER Provider Diagnostic Interpretation: X ray results are stated below per my interpretation: Chest: 1 view: No infiltrate, no effusion, normal cardiac border. CT results as stated below per interpretation by me and the radiologist: Preliminary Results Only--- See Final Report for Complete Findings: CT HEAD: No acute intracranial hemorrhage or mass effect. No displaced skull fracture. Left frontal scalp hematoma. Mucosal thickening at right ethmoid air cells and frontal sinuses recess and minimal mucosal thickening in visualized maxillary sinuses. Radiologist: Agustin Montoya M.D. Study ready at 0324 and initial results transmitted at 0355 Laboratory Results 01/03/17 02:45 Red Blood Count 3.48, Mean Corpuscular Volume 85.3, Mean Corpuscular Hemoglobin 28.4, Mean Corpuscular Hemoglobin Concent 33.3, Mean Platelet Volume 8.8, Neutrophils (%) (Auto) 72.2, Lymphocytes (%) (Auto) 12.6, Monocytes (%) (Auto) 13.1, Eosinophils (%) (Auto) 1.5, Basophils (%) (Auto) 0.3, Neutrophils # (Auto ) 2.80, Lymphocytes # (Auto) 0.49, Monocytes # (Auto) 0.51, Eosinophils # (Auto ) 0.06, Basophils # (Auto) 0.01 01/03/17 02:45 Test 01/03/17 02:45 White Blood Count 3.88 K/uL (4.8-10.8) Red Blood Count 3.48 M/uL (4.7-6.1) Hemoglobin 9.9 g/dL (14.0-18.0) Hematocrit 29.7 % (42-52) Mean Corpuscular Volume 85.3 fL (80-100) Mean Corpuscular Hemoglobin 28.4 pg (25-34) Mean Corpuscular Hemoglobin Concent 33.3 g/dl (32-36) Platelet Count 219 K/uL (130-400) Mean Platelet Volume 8.8 fL (7.4-10.4) Neutrophils (%) (Auto) 72.2 % Lymphocytes (%) (Auto) 12.6 % Monocytes (%) (Auto) 13.1 % Eosinophils (%) (Auto) 1.5 % Basophils (%) (Auto) 0.3 % Neutrophils # (Auto) 2.80 K/uL (1.4-6.5) Lymphocytes # (Auto) 0.49 K/uL (1.2-3.4) Monocytes # (Auto) 0.51 K/uL (0.11-0.59) Eosinophils # (Auto) 0.06 K/uL (0-0.5) Basophils # (Auto) 0.01 K/uL (0-0.2) RDW Standard Deviation 47.2 fL (36.4-46.3) RDW Coefficient of Variation 15.2 % (11.5-14.5) Immature Granulocyte % (Auto) 0.3 % Immature Granulocyte # (Auto) 0.01 K/uL (0.00-0.02) Activated Partial Thromboplast Time 24.8 SECONDS (21.0-31.0) Partial Thromboplastin Ratio 1.0 Anion Gap 9.0 mmol/L (3-11) Est Creatinine Clear Calc Drug Dose 72.2 ml/min Estimated GFR () 91.8 Estimated GFR (Non- 79.2 BUN/Creatinine Ratio 20.7 (10-20) Calcium Level 8.3 mg/dl (8.5-10.1) Phosphorus Level 2.9 mg/dl (2.5-4.9) Magnesium Level 2.1 mg/dl (1.8-2.4) Total Creatine Kinase 119 U/L (39-308) Creatine Kinase MB 3.9 ng/ml (0.5-3.6) Creatine Kinase MB Ratio 3.3 (0-3.0) Troponin I < 0.015 ng/ml (0-0.045) Pro-B-Type Natriuretic Peptide 1192 pg/ml (0-900) Albumin 3.2 gm/dl (3.4-5.0) Laboratory results as reviewed by me. Medications Administered Medications (Trade) Dose Ordered Sig/Marilyn Route Start Time Stop Time Status Last Admin Dose Admin Potassium Chloride (Klor-Con M10) 20 meq NOW STAT PO 01/03/17 04:15 01/03/17 04:24 DC 01/03/17 04:49 20 MEQ ECG Indication: syncope Rate (beats per minute): 75 Rhythm: normal sinus Findings: no acute ischemic change, no ectopy ED Course 0205: The patient was evaluated in room B6. A complete history and physical exam was performed. 0326: I reevaluated the patient and he is resting comfortably. 0410: I discussed the case with Dr. Tiana Menezes Hospitalist. He agreed to evaluate the patient for further management and care. Medical Decision Differential: Vaso-vagal, Intracerebral Event, Neurologic, Infectious, Volume Deficiency, Hypoglycemia, Electrolyte Abnormality, Cardiac Source, Toxicologic, amongst other pathologies entertained. 66 yr old homeless male well known to department for regular visits. This is second visit in a week for reported syncopal episode. Bruise left forehead actually looks a day or two old though he notes this occurred this evening. States no memory of events leading up to syncope. Noting feeling of visual disturbance though difficulty explaining it. No field deficits on exam, no neuro deficits neither. He is stable and labs are unremarkable. No evidence of dissection, encephalopathy, intracranial event at this time. May just be malnutrition leading to his syncope. This is a high risk individual with no outpatient follow up who is now here for second syncope eval thus hospitalists consulted for further evaluation. Consults Time Called: [phone] Consulting Physician: Dr. Tiana Menezes Hospitalist Returned Call: 0410 I discussed the case with Dr. Tiana Menezes Hospitalist. He agreed to evaluate the patient for further management and care. Impression Primary Impression: Syncope Additional Impressions: Failure to thrive Lymphedema Scribe Attestation The scribe's documentation has been prepared under my direction and personally reviewed by me in its entirety. I confirm that the note above accurately reflects all work, treatment, procedures, and medical decision making performed by me. Departure Information Dispostion Being Evaluated By Hospitalist Prescriptions No Active Prescriptions or Reported Meds Referrals No Doctor, Assigned (PCP) Problem Qualifiers Primary Impression: Syncope Syncope type: unspecified Qualified Codes: R55 - Syncope and collapse Additional Impressions: Failure to thrive Failure to thrive age range: in adult Qualified Codes: R62.7 - Adult failure to thrive
[2017-01-03 02:59] LABS: BASO % 0.3 %; BASO ABS # 0.01 K/uL (0-0.2); COMPLETE YES; EOS % 1.5 %; HEMATOCRIT 29.7 % (42-52); IG% 0.3 %; LYMPH % 12.6 %; LYMPH ABS # 0.49 K/uL (1.2-3.4); MEAN CELL VOLUME 85.3 fL (80-100); MEAN CORPUSCULAR HEMOGLOBIN 28.4 pg (25-34); MEAN CORPUSCULAR HGB CONC 33.3 g/dl (32-36); MEAN PLATELET VOLUME 8.8 fL (7.4-10.4); MONO % 13.1 %; NEUT % 72.2 %; PLATELET COUNT 219 K/uL (130-400); RED BLOOD COUNT 3.48 M/uL (4.7-6.1); WHITE BLOOD COUNT 3.88 K/uL (4.8-10.8)
[2017-01-03 03:29] LABS: BLOOD UREA NITROGEN 21 mg/dl (7-18); BUN/CREATININE RATIO 20.7 (10-20); CALCIUM 8.3 mg/dl (8.5-10.1); CARBON DIOXIDE 25 mmol/L (21-32); CHLORIDE 110 mmol/L (98-107); GLUCOSE 99 mg/dl (70-99); MAGNESIUM 2.1 mg/dl (1.8-2.4); POTASSIUM 3.4 mmol/L (3.5-5.1); SODIUM 144 mmol/L (136-145)
[2017-01-03 03:34] LABS: CKMB/CK RATIO 3.3 (0-3.0); PHOSPHORUS 2.9 mg/dl (2.5-4.9)
[2017-01-03] MEDS ORDERED: POTASSIUM CHLORIDE 10 MEQ TABCR PO STA (04:15)
[2017-01-03] MEDS ORDERED: LISINOPRIL 5 MG TAB PO STA (05:12)
[2017-01-03] MEDS ORDERED: LACTATED RINGER'S 1000ML 1,000 ML IV ONE (05:15)
[2017-01-03] MEDS ORDERED: MoRPHine SULFATE 4 MG/ML 1 ML CARP\\VIAL IV PRN (05:15)
[2017-01-03] MEDS ORDERED: ACETAMINOPHEN 325 MG TAB PO PRN (05:15)
[2017-01-03] MEDS ORDERED: IV FLUIDS COMPLETED PRN (05:45)
--- NOTE | 2017-01-03 06:47 | DIAGNOSTIC IMAGING REPORT ---
CHEST ONE VIEW PORTABLE CLINICAL HISTORY: Chest Pain dyspnea COMPARISON STUDY: 10/25/2016 FINDINGS: Mild stable cardiomegaly. Tortuosity thoracic aorta considered stable. Lungs are clear. Subtle chronic interstitial prominence. IMPRESSION: Chronic change. No acute process. Electronically signed by: Daniel Tyler M.D. 01/03/2017 6:45 AM Dictated Date/Time: 01/03/2017 6:45 AM
--- NOTE | 2017-01-03 06:51 | DIAGNOSTIC IMAGING REPORT ---
HEAD CT NONCONTRAST CT DOSE: 614.27 mGy.cm HISTORY: Mental status change syncope TECHNIQUE: Multiaxial CT images of the head were performed without the use of intravenous contrast. Comparison: 12/26/2016 Findings: The paranasal sinuses and mastoid air cells are clear. The calvarium and skull base are intact. The ventricles and sulci are within normal limits. There is no mass, hematoma, midline shift, or acute infarct. Impression: No acute intracranial abnormality. Electronically signed by: Daniel Tyler M.D. 01/03/2017 6:50 AM Dictated Date/Time: 01/03/2017 6:49 AM
--- NOTE | 2017-01-03 08:33 | HISTORY & PHYSICAL EXAMINATION ---
DATE OF ADMISSION: 01/03/2017 CHIEF COMPLAINT: Dozing off. HX obtained from px and records. HISTORY OF PRESENT ILLNESS: Medical history is significant for schizophrenia, hypertension, medication noncompliance, hx DVT, Hx testicular cancer status post surgery, past tobacco abuse, chronic anemia ( baseline Hg 9). History of chronic RLE lymphedema. Recent confinement in May 2016 for rectal bleeding. Patient refused endoscopic evaluation. Last few days, the patient is dozing off more than usual. No chest pain, no shortness of breath. Px denies syncopal events. He had a head trauma a few days ago from dozing off. Seen at the ER. Workup was unremarkable. Px still a little sleepy tonight. Hit his head against a wall. Denies passing out. Some epistaxis. Head sore. MEDICAL HISTORY: As above. SURGERIES: Urologic procedure and orchiectomy. HOME MEDICATIONS: none. ALLERGIES: HORSE DANDER AND TETANUS TOXOID. FAMILY HISTORY: Hypertension and heart disease. PERSONAL AND SOCIAL HISTORY: Past tobacco abuse. denies ETOH intake, homeless. REVIEW OF SYSTEMS: As per HPI. all other ROS negative. PHYSICAL EXAMINATION: VITAL SIGNS: Blood pressure 126/90, pulse rate 72, RR 18, temperature 36.6, and sats 98% on room air. GENERAL: Noted to be comfortable, wane. no respiratory distress. Unkempt. SKIN: Pallor. HEENT: pale palp conjunctivae, dry mucosa. NECK: Supple. CHEST: Clear to auscultation. HEART: RRR. ABDOMEN: Soft. EXTREMITIES: Induration, RLE (chronic) with foul smelling drainage (better than usual as per the patient) NEUROLOGIC: No gross focality. LABORATORY DATA: Hemoglobin was noted to be 9.9, hematocrit 29.7, white cell count 3.88, and platelets are 219. Sodium 140, potassium 4, chloride 110, CO2 of 25, BUN 21, creatinine 1, and glucose was noted to be 99. trop 0 EKG: Rate 75, normal sinus rhythm, LVH. CAT scan of the head, no acute pathology ASSESSMENT: 1. Fall secondary to sleepiness question of viral illness 2. hypertension, elevated secondary to noncompliance 3. chronic RLE lymphedema leg swelling better than usual albeit chronic foul smelling drainage. Patient is not septic. 4. hx testicular CA sp surgery 5. hypokalemia. 6. chronic anemia, hg at baseline 7. hx DVT as per records, px off anticoag 2 to homelessness 8. schizophrenia as per records 9. past tobacco abuse PLAN: Observation GMF Lisinopril for HTN (good response in the past) Replace potassium. PT/OT eval. Social Service RE dc planning DVT prophylaxis, SCDs re epistaxis Full code. MTDD
[2017-01-03] MEDS ORDERED: CLONIDINE HCL 0.1 MG TAB PO ONE (09:45)
--- NOTE | 2017-01-03 18:05 | Progress Note ---
Medicine Progress Note Date & Time of Visit: Jan 03, 2017 at 17:58. Subjective seen resting in bed, sitting up, in good spirits states he slept most of the day as he was feeling tired somewhat better this evening denies headache, dizziness no fever/chills, nasal congestion, cough, abdominal pain, leg pain denies other symptoms Objective Last 8 Hrs Date Time Temp Pulse Resp B/P Pulse Ox O2 Delivery O2 Flow Rate FiO2 01/03/17 15:06 36.5 63 20 120/67 99 Room Air 01/03/17 10:25 161/80 Physical Exam: General-oriented x 3, not in distress, speaks in sentences with no effort Eyes- anicteric ENT- oropharynx clear Neck- supple, no JVD, no adenopathy Lungs- clear to auscultation b/l Heart-normal rate, regular rhythm; no murmurs Abdomen- normal bowel sounds, soft, nontender Extremities-right lower leg: (+) edema, dressing in place left leg: essentially normal Neuro- alert, oriented x 3; no gross focal deficits Skin- warm & dry Laboratory Results: Last 24 Hours Test 01/03/17 02:45 01/03/17 17:41 01/03/17 17:54 White Blood Count 3.88 K/uL Red Blood Count 3.48 M/uL Hemoglobin 9.9 g/dL Hematocrit 29.7 % Mean Corpuscular Volume 85.3 fL Mean Corpuscular Hemoglobin 28.4 pg Mean Corpuscular Hemoglobin Concent 33.3 g/dl Platelet Count 219 K/uL Mean Platelet Volume 8.8 fL Neutrophils (%) (Auto) 72.2 % Lymphocytes (%) (Auto) 12.6 % Monocytes (%) (Auto) 13.1 % Eosinophils (%) (Auto) 1.5 % Basophils (%) (Auto) 0.3 % Neutrophils # (Auto) 2.80 K/uL Lymphocytes # (Auto) 0.49 K/uL Monocytes # (Auto) 0.51 K/uL Eosinophils # (Auto) 0.06 K/uL Basophils # (Auto) 0.01 K/uL RDW Standard Deviation 47.2 fL RDW Coefficient of Variation 15.2 % Immature Granulocyte % (Auto) 0.3 % Immature Granulocyte # (Auto) 0.01 K/uL Activated Partial Thromboplast Time 24.8 SECONDS Partial Thromboplastin Ratio 1.0 Sodium Level 144 mmol/L Potassium Level 3.4 mmol/L Chloride Level 110 mmol/L Carbon Dioxide Level 25 mmol/L Anion Gap 9.0 mmol/L Blood Urea Nitrogen 21 mg/dl Creatinine 1.00 mg/dl Est Creatinine Clear Calc Drug Dose 72.2 ml/min Estimated GFR () 91.8 Estimated GFR (Non- 79.2 BUN/Creatinine Ratio 20.7 Random Glucose 99 mg/dl Calcium Level 8.3 mg/dl Phosphorus Level 2.9 mg/dl Magnesium Level 2.1 mg/dl Total Creatine Kinase 119 U/L Creatine Kinase MB 3.9 ng/ml Creatine Kinase MB Ratio 3.3 Troponin I < 0.015 ng/ml Pro-B-Type Natriuretic Peptide 1192 pg/ml Albumin 3.2 gm/dl Assessment & Plan 1. Fall secondary to lethargy? possible viral illness? -CT head: negative afebrile - check blood cultures - lethargy improving 2. hypertension, elevated secondary to noncompliance - Losartan resumed PRN Clonidine - improving 3. chronic RLE lymphedema leg swelling better than usual albeit chronic foul smelling drainage. - no signs of sepsis - check blood cultures daily wound care 4. hx testicular CA sp surgery 5. hypokalemia -given PO K - repeat PRP tonight 6. chronic anemia, hg at baseline 7. hx DVT as per records, px off anticoag 2 to homelessness 8. schizophrenia as per records 9. past tobacco abuse Disposition pending Current Inpatient Medications: Current Inpatient Medications Medications (Trade) Dose Ordered Sig/Marilyn Route Start Time Stop Time Status Last Admin Dose Admin Lisinopril (Zestril Tab) 5 mg QAM PO 01/04/17 08:00 02/03/17 08:59 Acetaminophen (Tylenol Tab) 650 mg Q4H PRN PO 01/03/17 05:15 02/02/17 05:14 Tramadol HCl (Ultram Tab) 25 mg Q6H PRN PO 01/03/17 05:15 02/02/17 05:14 Ondansetron HCl (Zofran Inj) 4 mg Q6H PRN IV 01/03/17 05:15 02/02/17 05:14 Morphine Sulfate (MoRPHine SULFATE INJ) 4 mg Q3H PRN IV 01/03/17 05:15 01/17/17 05:14 Miscellaneous (Iv Fluids Completed) 1 ea PRN PRN N/A 01/03/17 05:45 01/03/18 05:44 Clonidine HCl (Catapres Tab) 0.1 mg Q6H PRN PO 01/03/17 09:15 02/02/17 09:14
[2017-01-03 18:10] LABS: URINE APPEARANCE CLEAR (CLEAR); URINE BILIRUBIN NEG (NEG); URINE COLOR YELLOW; URINE NITRITE NEG (NEG); URINE SPECIFIC GRAVITY 1.019 (1.000-1.030); UROBILINOGEN NEG (NEG); ZZUR CULT IF INDIC CLEAN CATCH NO
[2017-01-03 18:13] LABS: REVIEW REQ? NO
[2017-01-03 18:14] LABS: MANUAL MICROSCOPIC REQUIRED? NO
[2017-01-03 19:06] LABS: BUN/CREATININE RATIO 18.2 (10-20); CALCIUM 8.3 mg/dl (8.5-10.1); CREATININE 0.97 mg/dl (0.60-1.40); POTASSIUM 3.6 mmol/L (3.5-5.1)
[2017-01-03] MEDS: TRAMADOL HCL 50 MG TAB PO PRN (20:47)
[2017-01-04] VITALS (7 sets, daily range): BP systolic 140–179; BP diastolic 76–90; PULSE 63–74; TEMP 36.4–36.9; O2SAT 98–100
[2017-01-04] MEDS: LISINOPRIL 5 MG TAB PO SCH (07:52)
[2017-01-04 09:26] LABS: BASO % 0.3 %; BASO ABS # 0.01 K/uL (0-0.2); COMPLETE YES; EOS % 1.6 %; HEMATOCRIT 29.7 % (42-52); LYMPH % 22.6 %; LYMPH ABS # 0.72 K/uL (1.2-3.4); MEAN CELL VOLUME 87.1 fL (80-100); MEAN CORPUSCULAR HEMOGLOBIN 27.9 pg (25-34); MEAN PLATELET VOLUME 8.8 fL (7.4-10.4); MONO % 14.1 %; NEUT % 61.4 %; PLATELET COUNT 191 K/uL (130-400); RED BLOOD COUNT 3.41 M/uL (4.7-6.1); WHITE BLOOD COUNT 3.19 K/uL (4.8-10.8)
[2017-01-04 09:41] LABS: CALCIUM 8.4 mg/dl (8.5-10.1); CREATININE 0.9 mg/dl (0.60-1.40); POTASSIUM 3.7 mmol/L (3.5-5.1)
--- NOTE | 2017-01-04 20:09 | Progress Note ---
Medicine Progress Note Date & Time of Visit: Jan 04, 2017 at 20:07. Subjective seen sitting up in bed, reading the newspaper feels improved today not sleepy during the daytime denies headache, dizziness, chest pain felt dyspneic after walking today no other symptoms Objective Last 8 Hrs Date Time Temp Pulse Resp B/P Pulse Ox O2 Delivery O2 Flow Rate FiO2 01/04/17 16:00 100 Room Air 01/04/17 15:04 36.4 64 18 161/85 100 Room Air Physical Exam: General-oriented x 3, not in distress, speaks in sentences with no effort Eyes- anicteric ENT- oropharynx clear Neck- supple, no JVD, no adenopathy Lungs- clear to auscultation b/l Heart-normal rate, regular rhythm; no murmurs Abdomen- normal bowel sounds, soft, nontender Extremities-right lower leg: (+) edema, dressing in place left leg: essentially normal Neuro- alert, oriented x 3; no gross focal deficits Skin- warm & dry Laboratory Results: Last 24 Hours Test 01/04/17 07:50 White Blood Count 3.19 K/uL Red Blood Count 3.41 M/uL Hemoglobin 9.5 g/dL Hematocrit 29.7 % Mean Corpuscular Volume 87.1 fL Mean Corpuscular Hemoglobin 27.9 pg Mean Corpuscular Hemoglobin Concent 32.0 g/dl Platelet Count 191 K/uL Mean Platelet Volume 8.8 fL Neutrophils (%) (Auto) 61.4 % Lymphocytes (%) (Auto) 22.6 % Monocytes (%) (Auto) 14.1 % Eosinophils (%) (Auto) 1.6 % Basophils (%) (Auto) 0.3 % Neutrophils # (Auto) 1.96 K/uL Lymphocytes # (Auto) 0.72 K/uL Monocytes # (Auto) 0.45 K/uL Eosinophils # (Auto) 0.05 K/uL Basophils # (Auto) 0.01 K/uL RDW Standard Deviation 49.9 fL RDW Coefficient of Variation 15.5 % Immature Granulocyte % (Auto) 0.0 % Immature Granulocyte # (Auto) 0.00 K/uL Sodium Level 144 mmol/L Potassium Level 3.7 mmol/L Chloride Level 113 mmol/L Carbon Dioxide Level 22 mmol/L Anion Gap 9.0 mmol/L Blood Urea Nitrogen 14 mg/dl Creatinine 0.90 mg/dl Est Creatinine Clear Calc Drug Dose 80.2 ml/min Estimated GFR () 104.2 Estimated GFR (Non- 89.9 BUN/Creatinine Ratio 16.0 Random Glucose 79 mg/dl Calcium Level 8.4 mg/dl Assessment & Plan 1. Fall secondary to lethargy -CT head: negative afebrile, no leukocytosis - check blood cultures: pending - lethargy likely from poor sleep ff up blood cultures PT eval: recommend d/c home 2. Hypertension, elevated secondary to noncompliance - Losartan resumed PRN Clonidine - improving monitor 3. Chronic RLE lymphedema leg swelling better than usual albeit chronic foul smelling drainage. - no signs of sepsis - check blood cultures: pending daily wound care 4. hx testicular CA sp surgery 5. hypokalemia -given PO K - resolved 6. chronic anemia, hg at baseline 7. hx DVT as per records, px off anticoag 2 to homelessness 8. schizophrenia as per records 9. past tobacco abuse Disposition pending Current Inpatient Medications: Current Inpatient Medications Medications (Trade) Dose Ordered Sig/Marilyn Route Start Time Stop Time Status Last Admin Dose Admin Lisinopril (Zestril Tab) 5 mg QAM PO 01/04/17 08:00 02/03/17 08:59 01/04/17 07:52 5 MG Acetaminophen (Tylenol Tab) 650 mg Q4H PRN PO 01/03/17 05:15 02/02/17 05:14 Tramadol HCl (Ultram Tab) 25 mg Q6H PRN PO 01/03/17 05:15 02/02/17 05:14 01/03/17 20:47 25 MG Ondansetron HCl (Zofran Inj) 4 mg Q6H PRN IV 01/03/17 05:15 02/02/17 05:14 Morphine Sulfate (MoRPHine SULFATE INJ) 4 mg Q3H PRN IV 01/03/17 05:15 01/17/17 05:14 Miscellaneous (Iv Fluids Completed) 1 ea PRN PRN N/A 01/03/17 05:45 01/03/18 05:44 Clonidine HCl (Catapres Tab) 0.1 mg Q6H PRN PO 01/03/17 09:15 02/02/17 09:14
[2017-01-05 00:39] VITALS: BP 169/70
[2017-01-05] MEDS: CLONIDINE HCL 0.1 MG TAB PO PRN (00:39)
[2017-01-05] MEDS: TRAMADOL HCL 50 MG TAB PO PRN ×2 (08:08→19:35)
[2017-01-05] MEDS: LISINOPRIL 5 MG TAB PO SCH (08:08)
[2017-01-05] MEDS: ONDANSETRON INJ 2 MG/ML 2 ML VIAL IV PRN ×2 (08:08→22:05)
[2017-01-05 08:17] VITALS: BP 154/90; PULSE 66; TEMP 36.5; O2SAT 100
[2017-01-05] MEDS ORDERED: LISINOPRIL 5 MG TAB PO SCH (08:45)
[2017-01-05 15:43] VITALS: BP 164/93; PULSE 54; TEMP 36.4; O2SAT 100
--- NOTE | 2017-01-05 16:08 | Progress Note ---
Medicine Progress Note Date & Time of Visit: Jan 05, 2017 at 16:08. Subjective seen sitting up in bed, appears comfortable reports increased right lower leg swelling and pain denies headache, dizziness, lethargy no other symptoms Objective Last 8 Hrs Date Time Temp Pulse Resp B/P Pulse Ox O2 Delivery O2 Flow Rate FiO2 01/05/17 15:43 36.4 54 18 164/93 100 Room Air 01/05/17 08:17 36.5 66 16 154/90 100 Room Air Physical Exam: General-oriented x 3, not in distress, speaks in sentences with no effort Neck- no JVD, no adenopathy Lungs- clear to auscultation bilaterally Heart-normal rate, regular rhythm; no murmurs Abdomen- normal bowel sounds, soft, nontender Extremities-right lower leg: (+) open wounds/ulcer with surrounding erythema, edema, (+) yellowish malodorous discharge left leg: essentially normal Neuro- alert, oriented x 3; no gross focal deficits Skin- warm & dry Assessment & Plan 1. Fall secondary to lethargy -CT head: negative afebrile, no leukocytosis - blood cultures: negative - PT eval: recommend return home Right Lower Leg Ulcers, Cellulitis Chronic Right Lower Extremity Edema - wound cultures ordered - blood cultures negative - empiric Vanco + Zosyn ID consulted - Wound care consult on board Hypertension, elevated secondary to noncompliance - increase Lisinopril to 10mg daily monitor hx testicular CA sp surgery hypokalemia -given PO K - resolved chronic anemia, hg at baseline hx DVT as per records, px off anticoag 2 to homelessness schizophrenia as per records past tobacco abuse DVT prophylaxis Heparin Disposition pending Current Inpatient Medications: Current Inpatient Medications Medications (Trade) Dose Ordered Sig/Marilyn Route Start Time Stop Time Status Last Admin Dose Admin Acetaminophen (Tylenol Tab) 650 mg Q4H PRN PO 01/03/17 05:15 02/02/17 05:14 Tramadol HCl (Ultram Tab) 25 mg Q6H PRN PO 01/03/17 05:15 02/02/17 05:14 01/05/17 08:08 25 MG Ondansetron HCl (Zofran Inj) 4 mg Q6H PRN IV 01/03/17 05:15 02/02/17 05:14 01/05/17 08:08 4 MG Miscellaneous (Iv Fluids Completed) 1 ea PRN PRN N/A 01/03/17 05:45 01/03/18 05:44 Clonidine HCl (Catapres Tab) 0.1 mg Q6H PRN PO 01/03/17 09:15 02/02/17 09:14 01/05/17 00:39 0.1 MG Lisinopril (Zestril Tab) 10 mg QAM PO 01/06/17 08:00 02/05/17 07:59 Miscellaneous Information (Pharmacy Consult) 1 ea NOW STAT N/A 01/05/17 16:03 01/05/17 16:04 UNV
[2017-01-05] MEDS ORDERED: VANCOMYCIN CONSULT ACTIVE SCH (16:23)
[2017-01-05] MEDS ORDERED: PIPERACILL/TAZOBAC IV 3.375 GM in DEXTROSE 5% 100ML IV ONE (16:30)
--- NOTE | 2017-01-05 16:30 | Pharmacy Progress Note ---
Pharmacy Antibiotic Consult Date of Service: Jan 05, 2017. Pharmacy Dosing Scope Pharmacy is consulted to initiate Vancomycin and Zosyn IV dosing therapy, order appropriate labs and adjust drug dose/frequency. Subjective The patient is a 66 year old male admitted on Jan 03, 2017 at 05:02 with right lower leg cellulitis/ulcer. Objective Height (Feet): 5 Height (Inches): 8.00 Weight (Kilograms): 69.000 Lab Results (24hrs): Item Value Date Time White Blood Count 3.19 K/uL L 01/04/17 0750 Creatinine 0.90 mg/dl 01/04/17 0750 Est Creatinine Clear Calc Drug Dose 80.2 ml/min 01/04/17 0750 Blood cultures and leg drainage pending Assessment & Plan VANCOMYCIN Loading dose: Vancomycin 1700 mg (25mg/kg) IV X 1 dose then: * Vancomycin 1000 mg (15mg/kg) IV every 12 hours. * Estimated pharmacokinetic parameters: T1/2 = 10hrs, Bryant = 0.071/hr, Vd = 0.7L/ kg * Goal trough level estimate: ~15mcg/ml for cellulitis * Trough level has been ordered for: prior to 0400 dose, this will be prior to 4th total dose, so patient may not quite be at steady state, which will need to be considered in evaluating the level. ZOSYN: 3.375g IV q8H by extended infusion for CrCl > 20ml/min Pharmacy will continue to follow and will adjust dose/frequency as necessary. Thank you
[2017-01-05] MEDS ORDERED: PIPERACILL/TAZOBAC CONSULT ACTIVE PRN (16:45)
[2017-01-05] MEDS ORDERED: VANCOMYCIN INJ 1,700 MG in SODIUM CHLORIDE 0.9% 500ML 500 ML IV ONE (17:00)
[2017-01-05] MEDS: HEPARIN SOD 5000 UNIT/0.5 ML CARP SQ SCH (22:00)
[2017-01-05] MEDS: PIPERACILL/TAZOBAC IV 3.375 GM in DEXTROSE 5% 100ML IV SCH (23:26)
[2017-01-06 00:11] VITALS: BP 162/85; PULSE 76; TEMP 37; O2SAT 96
[2017-01-06] MEDS: CLONIDINE HCL 0.1 MG TAB PO PRN (00:19)
[2017-01-06] MEDS ORDERED: MoRPHine SULFATE 4 MG/ML 1 ML CARP\\VIAL IV PRN (00:30)
[2017-01-06] MEDS: VANCOMYCIN INJ 1,000 MG in SODIUM CHLORIDE 0.9% 250ML 250 ML IV SCH ×3 (02:48→18:31)
[2017-01-06] MEDS: HEPARIN SOD 5000 UNIT/0.5 ML CARP SQ SCH ×3 (05:33→21:42)
[2017-01-06 07:42] VITALS: BP 125/75; PULSE 72; TEMP 37; O2SAT 97
[2017-01-06 08:22] LABS: BUN/CREATININE RATIO 10.5 (10-20); CALCIUM 7.8 mg/dl (8.5-10.1); CREATININE 1.1 mg/dl (0.60-1.40); POTASSIUM 4.1 mmol/L (3.5-5.1)
[2017-01-06] MEDS: PIPERACILL/TAZOBAC IV 3.375 GM in DEXTROSE 5% 100ML IV SCH ×3 (08:22→23:56)
[2017-01-06] MEDS: LISINOPRIL 10 MG TAB PO SCH (08:23)
--- NOTE | 2017-01-06 10:16 | Progress Note ---
Medicine Progress Note Date & Time of Visit: Jan 06, 2017 at 10:14. Subjective states he had significant right lower leg pain last night improved with pain medication no fever/chills denies headache, dizziness, nausea, neuro symptoms denies other symptoms Objective Last 8 Hrs Date Time Temp Pulse Resp B/P Pulse Ox O2 Delivery O2 Flow Rate FiO2 01/06/17 08:00 Room Air 01/06/17 07:42 37.0 72 20 125/75 97 Room Air Physical Exam: General-oriented x 3, not in distress, speaks in sentences with no effort Neck- no JVD, no adenopathy Lungs- clear to auscultation bilaterally, no rales/wheeze Heart-normal rate, regular rhythm; no murmurs Abdomen- normal bowel sounds, soft, nontender Extremities-right lower leg: (+) dressing in place, (+) erythema, warmth left leg: essentially normal Neuro- alert, oriented x 3; no gross focal deficits Skin- warm & dry Laboratory Results: Last 24 Hours Test 01/06/17 07:20 Sodium Level 142 mmol/L Potassium Level 4.1 mmol/L Chloride Level 110 mmol/L Carbon Dioxide Level 22 mmol/L Anion Gap 10.0 mmol/L Blood Urea Nitrogen 12 mg/dl Creatinine 1.10 mg/dl Est Creatinine Clear Calc Drug Dose 65.6 ml/min Estimated GFR () 81.8 Estimated GFR (Non- 70.6 BUN/Creatinine Ratio 10.5 Random Glucose 85 mg/dl Calcium Level 7.8 mg/dl Date/Time Source Procedure Growth Status 01/05/17 15:50 Drainage - Surface Leg Right Lower Gram Stain Pending Resulted 01/05/17 15:50 Wound Culture - Preliminary Gram Negative Bacilli Resulted Assessment & Plan Right Lower Leg Ulcers, Cellulitis Chronic Right Lower Extremity Edema - wound cultures: gram negative bacilli - blood cultures negative - empiric Vanco + Zosyn Day 2 ID consulted - Wound care consult on board Fall secondary to lethargy -CT head: negative afebrile, no leukocytosis - blood cultures: negative - PT eval: recommend return home Hypertension, elevated secondary to noncompliance - increase Lisinopril to 10mg daily monitor hx testicular CA sp surgery hypokalemia -given PO K - resolved chronic anemia, hg at baseline hx DVT as per records, px off anticoag 2 to homelessness schizophrenia as per records past tobacco abuse DVT prophylaxis Heparin Disposition pending Current Inpatient Medications: Current Inpatient Medications Medications (Trade) Dose Ordered Sig/Marilyn Route Start Time Stop Time Status Last Admin Dose Admin Acetaminophen (Tylenol Tab) 650 mg Q4H PRN PO 01/03/17 05:15 02/02/17 05:14 Ondansetron HCl (Zofran Inj) 4 mg Q6H PRN IV 01/03/17 05:15 02/02/17 05:14 01/05/17 22:05 4 MG Miscellaneous (Iv Fluids Completed) 1 ea PRN PRN N/A 01/03/17 05:45 01/03/18 05:44 Clonidine HCl (Catapres Tab) 0.1 mg Q6H PRN PO 01/03/17 09:15 02/02/17 09:14 01/06/17 00:19 0.1 MG Lisinopril (Zestril Tab) 10 mg QAM PO 01/06/17 08:00 02/05/17 07:59 01/06/17 08:23 10 MG Vancomycin HCl 1 ea 1 ea UD N/A 01/05/17 16:23 02/04/17 16:22 Vancomycin HCl 1000 mg/Sodium Chloride 270 ml @ 125 mls/hr Q12@0400,1600 IV 01/06/17 04:00 01/16/17 03:59 01/06/17 02:48 125 MLS/HR Piperacillin Sod/ Tazobactam Sod/ Dextrose (Zosyn Iv/D5 100ml) 115 ml @ 28.75 mls/ hr Q8H IV 01/06/17 00:00 01/16/17 00:00 01/06/17 08:22 28.75 MLS/HR Piperacillin Sod/ Tazobactam Sod (Consult) 1 ea UD PRN N/A 01/05/17 16:45 02/04/17 16:44 Heparin Sodium (Porcine) (Heparin Sq 5000 Unit/0.5ml) 5,000 unit Q8 SQ 01/05/17 22:00 02/04/17 21:59 Tramadol HCl (Ultram Tab) not relieved by tylenol @ Q6H PRN PO 01/06/17 05:15 02/05/17 05:14 Morphine Sulfate (MoRPHine SULFATE INJ) 4 mg Q6H PRN IV 01/06/17 00:30 01/20/17 00:29
--- NOTE | 2017-01-06 13:48 | Medical Consult ---
Consultation Date of Consultation: Jan 06, 2017. Attending Physician: Patrick Sexton MD Reason for Consultation: Right lower leg cellulitis History of Present Illness Patient is a 66-year-old male known to myself from previous admission who presented to the hospital for complaints of fatigue and weakness for multiple days. The patient states that he fell in his head a few days prior to admission , and he was not sure why he was feeling so weak and fatigued. I previously saw the patient last here in December for right lower extremity cellulitis and wounds in the setting of chronic lymphedema. The patient does continue to have right lower extremity wound, and also has increasing erythema and foul odor from these wounds. Since admission, the patient did have a CT scan of the head , which showed no acute process. He also had a chest x-ray, which showed chronic changes. His white blood cell count on 01/04 was 3.19. His hemoglobin was 9.5. His creatinine today was 1.10. His urinalysis was relatively unremarkable. He had blood cultures drawn which are showing no growth to date. A wound culture from the right lower extremity is growing gram-negative bacilli, staph species, and corynebacterium. The patient was placed on IV vancomycin and Zosyn. He has been afebrile. He states that he has not had any sweats, chills, chest pain, abdominal pain, nausea, vomiting, or diarrhea. The patient has had shortness of breath, but this is chronic. He states he does have on an off increase his of his shortness of breath. Past Medical/Surgical History Medical Problems: (1) Acute generalized abdominal pain Status: Acute (2) Anemia Status: Acute (3) Anemia Status: Acute (4) Cellulitis of right lower extremity Status: Acute (5) Dizziness Status: Acute (6) Facial contusion Status: Acute (7) Fall Status: Acute (8) Head injury Status: Acute (9) Hypertension Nos Permanent Comment: declines to take medications Status: Chronic (10) Rectal bleeding Status: Acute (11) Renal failure Status: Acute (12) Sepsis Status: Acute (13) Small bowel obstruction Status: Acute (14) TSH elevation Status: Acute (15) Vomiting Status: Acute (16) Weakness Status: Acute (17) Wound of right lower extremity Status: Acute Social History Problems: (1) Ambulatory dysfunction Status: Acute (2) Cellulitis Status: Acute (3) Cellulitis and abscess of leg Status: Acute (4) Cellulitis of right leg Status: Acute (5) Cellulitis of right leg Status: Acute (6) Cellulitis of right lower extremity Status: Acute (7) Cellulitis of right lower extremity Status: Acute (8) Cellulitis of right lower extremity Status: Acute (9) Cellulitis of right lower extremity Status: Acute (10) Chronic acquired lymphedema Status: Acute (11) Diarrhea Status: Acute (12) Facial contusion Status: Acute (13) Fever Status: Acute (14) Nausea Status: Acute (15) Partial small bowel obstruction Status: Acute (16) Sepsis Status: Acute (17) Shortness of breath Status: Acute (18) 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 (19) Weakness Status: Acute Medical Problems: (1) History of adenomatous polyp of colon (2) History of DVT of lower extremity (3) History of testicular cancer (4) HTN (hypertension) (5) Hypertension Nos (6) Hypothyroidism (7) Influenza (8) Lymphedema of right lower extremity (9) Sacroiliitis Nec (10) Schizophrenia Nos-Unspec (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 Surgical Problems: (1) Status post orchiectomy Family History No pertinent family history Noncontributory Social History Smoking Status: Former Smoker Drug Use: none Housing Status: other Allergies Coded Allergies: Horse Dander (Verified Allergy, Unknown, HORSE HAIR, 01/03/17) Tetanus Toxoid (Verified Allergy, Unknown, 01/03/17) Home Medications Reported Home Medications Medications Dose Route/Sig Max Daily Dose Days Date Category No Active Prescriptions or Reported Medications Rx Current Inpatient Medications Current Inpatient Medications Medications (Trade) Dose Ordered Sig/Marilyn Route Start Time Stop Time Status Last Admin Dose Admin Acetaminophen (Tylenol Tab) 650 mg Q4H PRN PO 01/03/17 05:15 02/02/17 05:14 Ondansetron HCl (Zofran Inj) 4 mg Q6H PRN IV 01/03/17 05:15 02/02/17 05:14 01/05/17 22:05 4 MG Miscellaneous (Iv Fluids Completed) 1 ea PRN PRN N/A 01/03/17 05:45 01/03/18 05:44 Clonidine HCl (Catapres Tab) 0.1 mg Q6H PRN PO 01/03/17 09:15 02/02/17 09:14 01/06/17 00:19 0.1 MG Lisinopril (Zestril Tab) 10 mg QAM PO 01/06/17 08:00 02/05/17 07:59 01/06/17 08:23 10 MG Vancomycin HCl 1 ea 1 ea UD N/A 01/05/17 16:23 02/04/17 16:22 Vancomycin HCl 1000 mg/Sodium Chloride 270 ml @ 125 mls/hr Q12@0400,1600 IV 01/06/17 04:00 01/16/17 03:59 01/06/17 02:48 125 MLS/HR Piperacillin Sod/ Tazobactam Sod/ Dextrose (Zosyn Iv/D5 100ml) 115 ml @ 28.75 mls/ hr Q8H IV 01/06/17 00:00 01/16/17 00:00 01/06/17 08:22 28.75 MLS/HR Piperacillin Sod/ Tazobactam Sod (Consult) 1 ea UD PRN N/A 01/05/17 16:45 02/04/17 16:44 Heparin Sodium (Porcine) (Heparin Sq 5000 Unit/0.5ml) 5,000 unit Q8 SQ 01/05/17 22:00 02/04/17 21:59 Tramadol HCl (Ultram Tab) not relieved by tylenol @ Q6H PRN PO 01/06/17 05:15 02/05/17 05:14 Morphine Sulfate (MoRPHine SULFATE INJ) 4 mg Q6H PRN IV 01/06/17 00:30 01/20/17 00:29 Review of Systems Constitutional: + fatigue, No chills, No fever, No sweats Eyes: No worsening of vision ENT: No hearing loss, No sore throat Respiratory: + shortness of breath (chronic, but has been on and off worse), No cough Cardiovascular: No chest pain Abdomen: No diarrhea, No nausea, No pain, No vomiting Musculoskeletal: + swelling (right lower extremity), No joint pain Genitourinary - Male: No dysuria, No hematuria Integumentary: + color change (erythema of the right lower extremity, ulceration, drainage; chronic lymphedema), + new/changing skin lesions Physical Exam Date Time Temp Pulse Resp B/P Pulse Ox O2 Delivery O2 Flow Rate FiO2 01/06/17 08:00 Room Air 01/06/17 07:42 37.0 72 20 125/75 97 Room Air 01/06/17 00:11 37.0 76 18 162/85 96 Room Air 01/06/17 00:01 Room Air 01/05/17 20:00 Room Air 01/05/17 16:00 Room Air 01/05/17 15:43 36.4 54 18 164/93 100 Room Air General Appearance: WD/WN, no apparent distress Head: normocephalic, atraumatic Eyes: normal inspection, sclerae normal ENT: hearing grossly normal Neck: supple, trachea midline Respiratory/Chest: chest non-tender, lungs clear, normal breath sounds, no respiratory distress, no accessory muscle use Cardiovascular: regular rate, rhythm Abdomen/GI: normal bowel sounds, non tender, soft Extremities/Musculoskelatal: + pertinent finding (Chronic lymphedema of the right lower extremity. Mild erythema. Multiple, large, foul-smelling, greenish wounds of the right lower extremity.) Neurologic/Psych: alert, normal mood/affect Skin: + pertinent finding (As described above.) Laboratory Results HEAD CT NONCONTRAST CT DOSE: 614.27 mGy.cm HISTORY: Mental status change syncope TECHNIQUE: Multiaxial CT images of the head were performed without the use of intravenous contrast. Comparison: 12/26/2016 Findings: The paranasal sinuses and mastoid air cells are clear. The calvarium and skull base are intact. The ventricles and sulci are within normal limits. There is no mass, hematoma, midline shift, or acute infarct. Impression: No acute intracranial abnormality. Item Value Date Time Blood Culture - Preliminary Resulted 01/03/17 1832 Blood NO GROWTH TO DATE. Gram Stain - Final Resulted 01/05/17 1550 Drainage - Surface Leg Right Lower Blood Culture - Preliminary Resulted 01/03/17 1821 Blood NO GROWTH TO DATE. Last 24 Hours Test 01/06/17 07:20 Sodium Level 142 mmol/L Potassium Level 4.1 mmol/L Chloride Level 110 mmol/L Carbon Dioxide Level 22 mmol/L Anion Gap 10.0 mmol/L Blood Urea Nitrogen 12 mg/dl Creatinine 1.10 mg/dl Est Creatinine Clear Calc Drug Dose 65.6 ml/min Estimated GFR () 81.8 Estimated GFR (Non- 70.6 BUN/Creatinine Ratio 10.5 Random Glucose 85 mg/dl Calcium Level 7.8 mg/dl Assessment & Plan Patient with chronic lymphedema and wound infection with surrounding cellulitis of the right lower extremity. Wound culture from admission is growing Gram- negative bacilli, staph species, and corynebacterium. Blood cultures are showing no growth. Patient is currently on IV vancomycin and Zosyn. This seems appropriate pending culture results. The patient likely will need multiple days of IV antibiotics with wound debridement. We will adjust antibiotics as able. Plan: 1. Continue IV Zosyn and vancomycin pending culture Case reviewed and agree with above assessment.
[2017-01-06 15:35] VITALS: BP 112/65; PULSE 66; TEMP 36.7; O2SAT 100
[2017-01-06 16:00] VITALS: O2SAT 100
[2017-01-06] MEDS: ONDANSETRON INJ 2 MG/ML 2 ML VIAL IV PRN (18:36)
[2017-01-06] MEDS: TRAMADOL HCL 50 MG TAB PO PRN (18:37)
[2017-01-07 00:16] VITALS: BP 143/83; PULSE 63; TEMP 36.9; O2SAT 99
[2017-01-07] MEDS: HEPARIN SOD 5000 UNIT/0.5 ML CARP SQ SCH ×3 (03:17→21:42)
[2017-01-07] MEDS ORDERED: VANCOMYCIN TROUGH SCH (03:30)
[2017-01-07 04:05] LABS: COMPLETE YES; EOS % 4.3 %; HEMATOCRIT 29.9 % (42-52); IG% 0.5 %; LYMPH % 8.1 %; LYMPH ABS # 0.17 K/uL (1.2-3.4); MEAN CELL VOLUME 88.2 fL (80-100); MEAN CORPUSCULAR HGB CONC 31.8 g/dl (32-36); MONO % 6.7 %; NEUT % 80.4 %; PLATELET COUNT 170 K/uL (130-400); RED BLOOD COUNT 3.39 M/uL (4.7-6.1); WHITE BLOOD COUNT 2.09 K/uL (4.8-10.8)
[2017-01-07 04:22] LABS: BUN/CREATININE RATIO 11.1 (10-20); CALCIUM 7.7 mg/dl (8.5-10.1); CREATININE 1.2 mg/dl (0.60-1.40); POTASSIUM 3.9 mmol/L (3.5-5.1)
[2017-01-07 07:19] VITALS: BP 145/79; PULSE 63; TEMP 36.6; O2SAT 100
[2017-01-07] MEDS: ONDANSETRON INJ 2 MG/ML 2 ML VIAL IV PRN ×2 (08:53→19:52)
[2017-01-07] MEDS: PIPERACILL/TAZOBAC IV 3.375 GM in DEXTROSE 5% 100ML IV SCH ×2 (09:05→17:16)
[2017-01-07] MEDS: LISINOPRIL 10 MG TAB PO SCH (09:09)
[2017-01-07] MEDS: TRAMADOL HCL 50 MG TAB PO PRN (09:14)
[2017-01-07] MEDS ORDERED: ALUMINUM/MAGNESIUM/SIMETH (MAALOX MAX) 30 ML UDC PO PRN (09:45)
[2017-01-07] MEDS ORDERED: ALUMINUM/MAGNESIUM/SIMETH (MAALOX MAX) 30 ML UDC PO ONE (10:00)
[2017-01-07] MEDS ORDERED: PANTOprazole INJ 40 MG in SYRINGE 0 ML IV ONE (10:00)
[2017-01-07] MEDS ORDERED: OPTIRAY 320 IV PRN (10:30)
[2017-01-07 10:53] VITALS: O2SAT 98
--- NOTE | 2017-01-07 11:12 | Progress Note ---
Medicine Progress Note Date & Time of Visit: Jan 07, 2017 at 11:09. Subjective reports waking up with central abdominal pain, "like someone punched me", 05/29, associated with nausea no BM x 2 days no fever/chills no leg pain denies other symptoms Objective Last 8 Hrs Date Time Temp Pulse Resp B/P Pulse Ox O2 Delivery O2 Flow Rate FiO2 01/07/17 07:19 36.6 63 20 145/79 100 Room Air Physical Exam: General-oriented x 3, not in distress, speaks in sentences with no effort Neck- no JVD Lungs- clear to auscultation bilaterally, no rales/wheeze Heart-normal rate, regular rhythm; no murmurs Abdomen- normal bowel sounds,non distended, soft, (+) moderate tenderness on the central abdomen and LLQ Extremities-right lower leg: (+) dressing in place, (+) mild erythema, warmth left leg: essentially normal Neuro- alert, oriented x 3; no gross focal deficits Skin- warm & dry Laboratory Results: Last 24 Hours Test 01/06/17 11:30 01/07/17 03:41 01/07/17 10:27 Influenza Type A Antigen Neg for Influ A Influenza Type B Antigen Neg for Influ B White Blood Count 2.09 K/uL Red Blood Count 3.39 M/uL Hemoglobin 9.5 g/dL Hematocrit 29.9 % Mean Corpuscular Volume 88.2 fL Mean Corpuscular Hemoglobin 28.0 pg Mean Corpuscular Hemoglobin Concent 31.8 g/dl Platelet Count 170 K/uL Mean Platelet Volume 9.0 fL Neutrophils (%) (Auto) 80.4 % Lymphocytes (%) (Auto) 8.1 % Monocytes (%) (Auto) 6.7 % Eosinophils (%) (Auto) 4.3 % Basophils (%) (Auto) 0.0 % Neutrophils # (Auto) 1.68 K/uL Lymphocytes # (Auto) 0.17 K/uL Monocytes # (Auto) 0.14 K/uL Eosinophils # (Auto) 0.09 K/uL Basophils # (Auto) 0.00 K/uL RDW Standard Deviation 48.6 fL RDW Coefficient of Variation 15.0 % Immature Granulocyte % (Auto) 0.5 % Immature Granulocyte # (Auto) 0.01 K/uL Sodium Level 143 mmol/L Potassium Level 3.9 mmol/L Chloride Level 109 mmol/L Carbon Dioxide Level 26 mmol/L Anion Gap 8.0 mmol/L Blood Urea Nitrogen 13 mg/dl Creatinine 1.20 mg/dl Est Creatinine Clear Calc Drug Dose 60.2 ml/min Estimated GFR () 73.6 Estimated GFR (Non- 63.5 BUN/Creatinine Ratio 11.1 Random Glucose 90 mg/dl Calcium Level 7.7 mg/dl Vancomycin Level Trough 15.8 mcg/ml Total Bilirubin 0.6 mg/dl Direct Bilirubin 0.2 mg/dl Aspartate Amino Transf (AST/SGOT) 11 U/L Alanine Aminotransferase (ALT/SGPT) 8 U/L Alkaline Phosphatase 77 U/L Total Protein 6.4 gm/dl Albumin 2.4 gm/dl Lipase 383 U/L Assessment & Plan Right Lower Leg Ulcers, Cellulitis Chronic Right Lower Extremity Edema - wound cultures: enterobacter, staph, corynebacterium - blood cultures negative - empiric Vanco + Zosyn Day 3 ID consulted - Wound care consult on board Abdominal pain - check Lipase, Liver function - Maalox, Protonix - check CT abdomen - if negative, likely from constipation Fall secondary to lethargy -CT head: negative afebrile, no leukocytosis - blood cultures: negative - PT eval: recommend return home Hypertension, elevated secondary to noncompliance - increase Lisinopril to 10mg daily improving hx testicular CA sp surgery hypokalemia -given PO K - resolved chronic anemia, hg at baseline hx DVT as per records, px off anticoag 2 to homelessness schizophrenia as per records past tobacco abuse DVT prophylaxis Heparin Disposition pending Current Inpatient Medications: Current Inpatient Medications Medications (Trade) Dose Ordered Sig/Marilyn Route Start Time Stop Time Status Last Admin Dose Admin Acetaminophen (Tylenol Tab) 650 mg Q4H PRN PO 01/03/17 05:15 02/02/17 05:14 Ondansetron HCl (Zofran Inj) 4 mg Q6H PRN IV 01/03/17 05:15 02/02/17 05:14 01/07/17 08:53 4 MG Miscellaneous (Iv Fluids Completed) 1 ea PRN PRN N/A 01/03/17 05:45 01/03/18 05:44 Clonidine HCl (Catapres Tab) 0.1 mg Q6H PRN PO 01/03/17 09:15 3/16/17 09:14 01/06/17 00:19 0.1 MG Lisinopril (Zestril Tab) 10 mg QAM PO 01/06/17 08:00 02/05/17 07:59 01/07/17 09:09 10 MG Vancomycin HCl 1 ea 1 ea UD N/A 01/05/17 16:23 02/04/17 16:22 Vancomycin HCl 1000 mg/Sodium Chloride 270 ml @ 125 mls/hr Q12@0400,1600 IV 01/06/17 04:00 01/16/17 03:59 01/06/17 18:31 125 MLS/HR Piperacillin Sod/ Tazobactam Sod/ Dextrose (Zosyn Iv/D5 100ml) 115 ml @ 28.75 mls/ hr Q8H IV 01/06/17 00:00 01/16/17 00:00 01/07/17 09:05 28.75 MLS/HR Piperacillin Sod/ Tazobactam Sod (Consult) 1 ea UD PRN N/A 01/05/17 16:45 02/04/17 16:44 Heparin Sodium (Porcine) (Heparin Sq 5000 Unit/0.5ml) 5,000 unit Q8 SQ 01/05/17 22:00 02/04/17 21:59 Tramadol HCl (Ultram Tab) not relieved by tylenol @ Q6H PRN PO 01/06/17 05:15 02/05/17 05:14 01/07/17 09:14 50 MG Morphine Sulfate (MoRPHine SULFATE INJ) 4 mg Q6H PRN IV 01/06/17 00:30 01/20/17 00:29 01/07/17 10:38 4 MG Al Hydrox/Mg Hydrox/Simethicone (Maalox Max Susp) 30 ml Q6H PRN PO 01/07/17 09:45 02/06/17 09:44 Ioversol (Optiray 320) 125 ml UD PRN IV 01/07/17 10:30 01/11/17 10:29
--- NOTE | 2017-01-07 11:50 | DIAGNOSTIC IMAGING REPORT ---
CT OF THE ABDOMEN AND PELVIS WITH CONTRAST CLINICAL HISTORY: Central abdominal pain. COMPARISON STUDY: CT of the abdomen and pelvis November 29, 2016. TECHNIQUE: Following IV administration of 118 mL of Optiray-320, axial images of the abdomen and pelvis were obtained from the lung bases to the proximal femurs. Images were reviewed in the axial, sagittal, and coronal planes. IV contrast was administered without complication. CT DOSE: 517.93 mGy.cm FINDINGS: Visualized portions of the lower chest demonstrate moderate cardiomegaly and trace bilateral pleural effusions, right larger than left. Linear and groundglass opacity suggest atelectasis. There has been interval development of moderate intra and extrahepatic biliary ductal dilatation and mild pancreatic ductal dilatation since CT of November 29, 2016. The main pancreatic duct measures 4 mm. The common bile duct measures 1 cm. There is somewhat abrupt narrowing of the distal common bile duct. There is mild infiltration adjacent to the pancreas, most evident along the uncinate process of the pancreatic head. There is prominent mucosal enhancement of the second portion of the duodenum. The gallbladder is mildly distended with gallbladder wall thickening and possible trace pericholecystic fluid. There is increased attenuation of the liver within the gallbladder fossa. The spleen is slightly enlarged. This is unchanged. Marked right renal atrophy is unchanged. There is no hydronephrosis. 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 Extensive atherosclerotic plaque is noted within the major vasculature. Right groin infiltration as well as asymmetric edema of the right thigh and groin is unchanged. Numerous collaterals within the pelvis are noted. These include perirectal collaterals. There is no pneumatosis, free air or portal venous gas. There is no evidence for a bowel obstruction. There is partial ankylosis of the right sacroiliac joint. IMPRESSION: 1. Interval development of biliary and pancreatic ductal dilatation with mild infiltration adjacent to the pancreatic head, uncinate process and second portion of the duodenum. The findings raise the possibility of acute pancreatitis. The ductal dilatation may be related to acute pancreatitis. A mass cannot be excluded on this exam and therefore a short-term follow-up pancreatic protocol CT in one month is recommended. 2. Mild gallbladder distention with gallbladder wall thickening which has been shown on prior exams. Increased enhancement or attenuation within the adjacent liver parenchyma. Acute cholecystitis would be difficult to exclude on this exam. 3. Otherwise, no significant change in appearance of the abdomen and pelvis with multiple chronic findings, as described above. Electronically signed by: Terence Donahue M.D. 01/07/2017 11:49 AM Dictated Date/Time: 01/07/2017 11:29 AM
[2017-01-07] MEDS ORDERED: HYDROmorphone INJ 0.5 MG/0.5 ML SYR ONE (11:52)
[2017-01-07] MEDS ORDERED: LACTATED RINGER'S 1000ML 1,000 ML IV SCH ×2 (14:30→17:30)
[2017-01-07] MEDS: HYDROmorphone INJ 0.5 MG/0.5 ML SYR IV PRN ×2 (15:03→17:54)
[2017-01-07 15:28] VITALS: BP 159/75; PULSE 68; TEMP 36.6; O2SAT 100
[2017-01-07 16:08] LABS: AMYLASE 400 U/L (25-115)
[2017-01-07] MEDS: VANCOMYCIN INJ 1,000 MG in SODIUM CHLORIDE 0.9% 250ML 250 ML IV SCH (17:16)
--- NOTE | 2017-01-07 17:22 | Pharmacy Progress Note ---
Pharmacy Antibiotic Prog Note Date of Service: Jan 07, 2017. Subjective: The patient is currently receiving Vancomycin 1000 mg IV every 12 hours. The patient is currently on day # 3 of Vancomycin IV therapy. Objective: Height (Feet): 5 Height (Inches): 8.00 Weight (Kilograms): 69.000 Levels: Item Value Date Time Vancomycin Level Trough 15.8 mcg/ml 01/07/17 0341 Random Vancomycin Level 11.8 mcg/ml 01/07/17 1540 Lab Results (24hrs): Laboratory Tests Test 01/07/17 03:41 BUN/Creatinine Ratio 11.1 Blood Urea Nitrogen 13 mg/dl Creatinine 1.20 mg/dl White Blood Count 2.09 K/uL Red Blood Count 3.39 M/uL Hemoglobin 9.5 g/dL Hematocrit 29.9 % Mean Corpuscular Volume 88.2 fL Mean Corpuscular Hemoglobin 28.0 pg Mean Corpuscular Hemoglobin Concent 31.8 g/dl Platelet Count 170 K/uL Mean Platelet Volume 9.0 fL Neutrophils (%) (Auto) 80.4 % Lymphocytes (%) (Auto) 8.1 % Monocytes (%) (Auto) 6.7 % Eosinophils (%) (Auto) 4.3 % Basophils (%) (Auto) 0.0 % Neutrophils # (Auto) 1.68 K/uL Lymphocytes # (Auto) 0.17 K/uL Monocytes # (Auto) 0.14 K/uL Eosinophils # (Auto) 0.09 K/uL Basophils # (Auto) 0.00 K/uL Assessment & Plan: Assessment * 66 y/o M on empiric IV Vancomycin and Zosyn for RLL cellulitis/ulcer. ID is also following the patient. * Goal Vancomycin trough ~15 mcg/mL * Vancomycin trough level (appropriately drawn) on 01/07 @ 0341 was 15.8 mcg/mL, which is within the therapeutic range * Patient was supposed to be receiving Vancomycin 1000mg IV q12. However, a nursing error occurred during the evening of 01/06/17. Due to documentation/ computer error, the 0400 dose due at 01/07/17 was "cleared" from the eMAR and therefore the patient never received a dose this AM. His last dose of Vancomycin was given ~16 on 01/06/17. * Given the above information, a repeat random level was ordered. Surprisingly , the level was 11.8 mcg/mL (~24 hours after last dose) on 01/07 @ 1540 * Using the 2 levels, calculated patient-specific Ke to be ~0.024/hr, with an estimated half-life ~28 hours. Patient appears to be eliminating Vancomycin much less rapidly than anticipated. Therefore, will need to extend dosing interval to prevent supratherapeutic levels. Plan * Decrease Vancomycin to 1000mg IV q24 * Recheck trough level on 01/09 @ 1730 (this will again be an early level, but would like to assess dosing regimen earlier) Pharmacy will continue to follow and will adjust dose/frequency as necessary. Thank you
[2017-01-07] MEDS ORDERED: NURSING VERBAL MED ORDER ONE (19:00)
--- NOTE | 2017-01-07 19:06 | Progress Note ---
Progress Note attending addendum reevaluated patient twice explained at length need for MRCP patient declines MRCP this evening, would like to wait until tomorrow explained potential risks of delayed diagnosis including worsening of pancreatitis with complications including he verbalized understanding and acceptance of risks continue pain management, aggressive IV fluid hydration, NPO GI consulted Patrick Sexton MD
[2017-01-07] MEDS ORDERED: HYDROmorphone INJ 1 MG/ML SYR IV ONE (19:10)
--- NOTE | 2017-01-07 20:29 | Progress Note ---
Internal Med Progress Note Date of Service: Jan 07, 2017. Provider Documentation: Px adamantly refuses to receive LRS IVF for pancreatitis despite being given rationale of anti-inflammatory benefits. [facility]. Will relay to AM provider. Vital Signs: Date Time Temp Pulse Resp B/P Pulse Ox O2 Delivery O2 Flow Rate FiO2 01/08/17 07:39 36.7 60 20 154/82 98 01/08/17 00:00 Room Air 01/07/17 23:23 36.6 66 18 159/83 97 Room Air 01/07/17 21:00 Room Air 01/07/17 15:33 Room Air 01/07/17 15:28 36.6 68 16 159/75 100 Room Air 01/07/17 10:53 98 Room Air Lab Results: Results Past 24 Hours Test 01/07/17 10:27 01/07/17 15:40 01/08/17 06:14 Range/Units Total Bilirubin 0.6 0.8 0.2-1 mg/dl Direct Bilirubin 0.2 0.2 0-0.2 mg/dl Aspartate Amino Transf (AST/SGOT) 11 28 15-37 U/L Alanine Aminotransferase (ALT/SGPT) 8 22 12-78 U/L Alkaline Phosphatase 77 146 45-117 U/L Total Protein 6.4 6.0 6.4-8.2 gm/dl Albumin 2.4 2.3 3.4-5.0 gm/dl Lipase 383 4990 2161 73-393 U/L Amylase Level 400 522 25-115 U/L Random Vancomycin Level 11.8 mcg/ml White Blood Count 3.88 4.8-10.8 K/uL Red Blood Count 3.48 4.7-6.1 M/uL Hemoglobin 9.9 14.0-18.0 g/dL Hematocrit 30.6 42-52 % Mean Corpuscular Volume 87.9 80-100 fL Mean Corpuscular Hemoglobin 28.4 25-34 pg Mean Corpuscular Hemoglobin Concent 32.4 32-36 g/dl Platelet Count 201 130-400 K/uL Mean Platelet Volume 9.1 7.4-10.4 fL Neutrophils (%) (Auto) 83.9 % Lymphocytes (%) (Auto) 6.7 % Monocytes (%) (Auto) 6.7 % Eosinophils (%) (Auto) 2.1 % Basophils (%) (Auto) 0.3 % Neutrophils # (Auto) 3.26 1.4-6.5 K/uL Lymphocytes # (Auto) 0.26 1.2-3.4 K/uL Monocytes # (Auto) 0.26 0.11-0.59 K/uL Eosinophils # (Auto) 0.08 0-0.5 K/uL Basophils # (Auto) 0.01 0-0.2 K/uL RDW Standard Deviation 46.7 36.4-46.3 fL RDW Coefficient of Variation 14.6 11.5-14.5 % Immature Granulocyte % (Auto) 0.3 % Immature Granulocyte # (Auto) 0.01 0.00-0.02 K/uL Sodium Level 143 136-145 mmol/L Potassium Level 4.1 3.5-5.1 mmol/L Chloride Level 110 98-107 mmol/L Carbon Dioxide Level 22 21-32 mmol/L Anion Gap 11.0 3-11 mmol/L Blood Urea Nitrogen 11 7-18 mg/dl Creatinine 0.96 0.60-1.40 mg/dl Est Creatinine Clear Calc Drug Dose 75.2 ml/min Estimated GFR () 96.4 Estimated GFR (Non- 83.2 BUN/Creatinine Ratio 11.9 10-20 Random Glucose 71 70-99 mg/dl Calcium Level 7.7 8.5-10.1 mg/dl Magnesium Level 1.9 1.8-2.4 mg/dl
[2017-01-07] MEDS: SODIUM CHLOR 0.45% + 20MEQ KCL 1,000 ML IV SCH (21:39)
[2017-01-07 23:23] VITALS: BP 159/83; PULSE 66; TEMP 36.6; O2SAT 97
[2017-01-08] MEDS: PIPERACILL/TAZOBAC IV 3.375 GM in DEXTROSE 5% 100ML IV SCH ×4 (00:01→23:47)
[2017-01-08] MEDS: SODIUM CHLOR 0.45% + 20MEQ KCL 1,000 ML IV SCH ×5 (02:27→22:16)
[2017-01-08] MEDS: HEPARIN SOD 5000 UNIT/0.5 ML CARP SQ SCH ×3 (05:59→22:00)
[2017-01-08 07:39] VITALS: BP 154/82; PULSE 60; TEMP 36.7; O2SAT 98
[2017-01-08 07:39] LABS: BUN/CREATININE RATIO 11.9 (10-20); CREATININE 0.96 mg/dl (0.60-1.40)
[2017-01-08 07:40] LABS: CALCIUM 7.7 mg/dl (8.5-10.1); MAGNESIUM 1.9 mg/dl (1.8-2.4); POTASSIUM 4.1 mmol/L (3.5-5.1)
[2017-01-08 08:00] VITALS: O2SAT 98
[2017-01-08] MEDS: LISINOPRIL 10 MG TAB PO SCH (08:14)
--- NOTE | 2017-01-08 09:16 | Progress Note ---
Medicine Progress Note Date & Time of Visit: Jan 08, 2017 at 09:11. Subjective patient seen resting in bed, comfortable states abdominal pain has resolved, no nausea, fever/chills no shortness of breath denies leg pain no other symptoms Objective Last 8 Hrs Date Time Temp Pulse Resp B/P Pulse Ox O2 Delivery O2 Flow Rate FiO2 01/08/17 07:39 36.7 60 20 154/82 98 Physical Exam: General-oriented x 3, not in distress, speaks in sentences with no effort Neck- no JVD Lungs- clear breath sounds bilaterally Heart-normal rate, regular rhythm; no murmurs Abdomen- normal bowel sounds,non distended, soft, (+) moderate tenderness : epigastric region Extremities-right lower leg: open wounds but with less surrounding erythema, swelling, no foul odor left leg: essentially normal Neuro- alert, oriented x 3; no gross focal deficits Skin- warm & dry Laboratory Results: Last 24 Hours Test 01/07/17 10:27 01/07/17 15:40 01/08/17 06:14 01/08/17 09:04 Total Bilirubin 0.6 mg/dl 0.8 mg/dl Direct Bilirubin 0.2 mg/dl 0.2 mg/dl Aspartate Amino Transf (AST/SGOT) 11 U/L 28 U/L Alanine Aminotransferase (ALT/SGPT) 8 U/L 22 U/L Alkaline Phosphatase 77 U/L 146 U/L Total Protein 6.4 gm/dl 6.0 gm/dl Albumin 2.4 gm/dl 2.3 gm/dl Lipase 383 U/L 4990 U/L 2161 U/L Amylase Level 400 U/L 522 U/L Random Vancomycin Level 11.8 mcg/ml Sodium Level 143 mmol/L Potassium Level 4.1 mmol/L Chloride Level 110 mmol/L Carbon Dioxide Level 22 mmol/L Anion Gap 11.0 mmol/L Blood Urea Nitrogen 11 mg/dl Creatinine 0.96 mg/dl Est Creatinine Clear Calc Drug Dose 75.2 ml/min Estimated GFR () 96.4 Estimated GFR (Non- 83.2 BUN/Creatinine Ratio 11.9 Random Glucose 71 mg/dl Calcium Level 7.7 mg/dl Magnesium Level 1.9 mg/dl Assessment & Plan Acute Pancreatitis - CT abdomen noted - Lipase level improved from 4900 to 200s - continue IV fluids , NPO patient declining MRCP GI consulted Right Lower Leg Ulcers, Cellulitis Chronic Right Lower Extremity Edema - wound cultures: enterobacter, staph, corynebacterium - blood cultures negative - empiric Vanco + Zosyn Day 4 ID consulted - Wound care consult on board Fall secondary to lethargy -CT head: negative afebrile, no leukocytosis - blood cultures: negative Hypertension, elevated secondary to noncompliance - increased Lisinopril to 10mg daily improving hx testicular CA sp surgery hypokalemia -given PO K - resolved chronic anemia, hg at baseline hx DVT as per records, px off anticoag 2 to homelessness schizophrenia as per records past tobacco abuse DVT prophylaxis Heparin Disposition pending Current Inpatient Medications: Current Inpatient Medications Medications (Trade) Dose Ordered Sig/Marilyn Route Start Time Stop Time Status Last Admin Dose Admin Acetaminophen (Tylenol Tab) 650 mg Q4H PRN PO 01/03/17 05:15 02/02/17 05:14 Ondansetron HCl (Zofran Inj) 4 mg Q6H PRN IV 01/03/17 05:15 02/02/17 05:14 01/07/17 19:52 4 MG Miscellaneous (Iv Fluids Completed) 1 ea PRN PRN N/A 01/03/17 05:45 01/03/18 05:44 Clonidine HCl (Catapres Tab) 0.1 mg Q6H PRN PO 01/03/17 09:15 02/02/17 09:14 01/06/17 00:19 0.1 MG Lisinopril (Zestril Tab) 10 mg QAM PO 01/06/17 08:00 02/05/17 07:59 01/08/17 08:14 10 MG Vancomycin HCl 1 ea 1 ea UD N/A 01/05/17 16:23 02/04/17 16:22 Piperacillin Sod/ Tazobactam Sod/ Dextrose (Zosyn Iv/D5 100ml) 115 ml @ 28.75 mls/ hr Q8H IV 01/06/17 00:00 01/16/17 00:00 01/08/17 08:14 28.75 MLS/HR Piperacillin Sod/ Tazobactam Sod (Consult) 1 ea UD PRN N/A 01/05/17 16:45 02/04/17 16:44 Heparin Sodium (Porcine) (Heparin Sq 5000 Unit/0.5ml) 5,000 unit Q8 SQ 01/05/17 22:00 02/04/17 21:59 Tramadol HCl (Ultram Tab) not relieved by tylenol @ Q6H PRN PO 01/06/17 05:15 02/05/17 05:14 01/07/17 09:14 50 MG Morphine Sulfate (MoRPHine SULFATE INJ) 4 mg Q6H PRN IV 01/06/17 00:30 01/20/17 00:29 01/07/17 10:38 4 MG Al Hydrox/Mg Hydrox/Simethicone (Maalox Max Susp) 30 ml Q6H PRN PO 01/07/17 09:45 02/06/17 09:44 Ioversol 125 ml 125 ml UD PRN IV 01/07/17 10:30 01/11/17 10:29 Vancomycin HCl/ Sodium Chloride (Vancomycin Inj/ Nss 250ml) 270 ml @ 125 mls/hr DAILY@1800 IV 01/08/17 18:00 01/15/17 17:59 Hydromorphone HCl 1 mg 1 mg Q2H PRN IV 01/07/17 20:00 01/21/17 19:59 Potassium Chloride/Sodium Chloride (1/2 Nss + 20meq KCl 1000ml) 1,000 ml @ 200 mls/hr Q5H IV 01/07/17 21:30 02/06/17 21:29 01/08/17 08:10 200 MLS/HR
[2017-01-08 09:27] LABS: BASO % 0.3 %; BASO ABS # 0.01 K/uL (0-0.2); COMPLETE YES; EOS % 2.1 %; HEMATOCRIT 30.6 % (42-52); IG% 0.3 %; LYMPH % 6.7 %; LYMPH ABS # 0.26 K/uL (1.2-3.4); MEAN CELL VOLUME 87.9 fL (80-100); MEAN CORPUSCULAR HEMOGLOBIN 28.4 pg (25-34); MEAN CORPUSCULAR HGB CONC 32.4 g/dl (32-36); MEAN PLATELET VOLUME 9.1 fL (7.4-10.4); MONO % 6.7 %; NEUT % 83.9 %; PLATELET COUNT 201 K/uL (130-400); RED BLOOD COUNT 3.48 M/uL (4.7-6.1); WHITE BLOOD COUNT 3.88 K/uL (4.8-10.8)
--- NOTE | 2017-01-08 11:36 | Gastrointestinal Consultation ---
Gastrointestinal Consultation Date of Consultation: Jan 08, 2017 Attending Physician: Dr. Sexton Consulting Physician: Dr. Núñez Reason for Consultation: pancreatitis History of Present Illness Patient is a 66 year old male with schizophrenia, HTN, h/o DVT, h/o testicular cancer and anemia of chronic disease who presented to the ER with complaints of increased somnolence. He later complained of some generalized abdominal pain. Labs were significant for lipase of 5000. Interestingly, lipase on initial assessment was 380. His LFTs are normal. CT of the abdomen and pelvis showed changes of acute pancreatitis as well as PD of 4mm and CBD of 1cm with abrupt narrowing , GB is present. His abdominal [pain has since resolved. He is refusing an MRCP to further evaluate the biliary tree. he denies any ETOH. Recent admission in May 2016 for rectal bleeding. He refused any work up at that time as well. Past Medical/Surgical History Medical Problems: (1) Acute generalized abdominal pain Status: Acute (2) Anemia Status: Acute (3) Anemia Status: Acute (4) Cellulitis of right lower extremity Status: Acute (5) Dizziness Status: Acute (6) Facial contusion Status: Acute (7) Fall Status: Acute (8) Head injury Status: Acute (9) Hypertension Nos Permanent Comment: declines to take medications Status: Chronic (10) Rectal bleeding Status: Acute (11) Renal failure Status: Acute (12) Sepsis Status: Acute (13) Small bowel obstruction Status: Acute (14) TSH elevation Status: Acute (15) Vomiting Status: Acute (16) Weakness Status: Acute (17) Wound of right lower extremity Status: Acute Social History Problems: (1) Ambulatory dysfunction Status: Acute (2) Cellulitis Status: Acute (3) Cellulitis and abscess of leg Status: Acute (4) Cellulitis of right leg Status: Acute (5) Cellulitis of right leg Status: Acute (6) Cellulitis of right lower extremity Status: Acute (7) Cellulitis of right lower extremity Status: Acute (8) Cellulitis of right lower extremity Status: Acute (9) Cellulitis of right lower extremity Status: Acute (10) Chronic acquired lymphedema Status: Acute (11) Diarrhea Status: Acute (12) Facial contusion Status: Acute (13) Fever Status: Acute (14) Nausea Status: Acute (15) Partial small bowel obstruction Status: Acute (16) Sepsis Status: Acute (17) Shortness of breath Status: Acute (18) 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 (19) Weakness Status: Acute Past Medical History: as noted in HPI Past Surgical History: non-contributory Family History No pertinent family history non-contributory Social History Smoking Status: Former Smoker Alcohol Use: none Drug Use: none Housing Status: other Allergies Coded Allergies: Horse Dander (Verified Allergy, Unknown, HORSE HAIR, 01/03/17) Tetanus Toxoid (Verified Allergy, Unknown, 01/03/17) Current Medications Home Meds and Scripts Medications Dose Route/Sig Max Daily Dose Days Date Category No Active Prescriptions or Reported Medications Rx Review of Systems 12 systems reviewed and negative except as noted Physical Exam Date Time Temp Pulse Resp B/P Pulse Ox O2 Delivery O2 Flow Rate FiO2 01/08/17 07:39 36.7 60 20 154/82 98 01/08/17 00:00 Room Air 01/07/17 23:23 36.6 66 18 159/83 97 Room Air 01/07/17 21:00 Room Air 01/07/17 15:33 Room Air 01/07/17 15:28 36.6 68 16 159/75 100 Room Air General Appearance: WD/WN, no apparent distress Eyes: normal inspection, PERRL ENT: normal ENT inspection, hearing grossly normal, pharynx normal Neck: supple, no adenopathy, no JVD Respiratory/Chest: chest non-tender, lungs clear, normal breath sounds, no accessory muscle use Cardiovascular: regular rate, rhythm, no murmur Abdomen: normal bowel sounds, non tender, soft Extremities: normal range of motion, non-tender, normal inspection, no calf tenderness Neurologic/Psych: test evaluator II-XII nml as tested, no motor/sensory deficits, alert, oriented x 3 Skin: normal color, no jaundice, warm/dry, no rash Laboratory Results Last 24 Hours Test 01/07/17 15:40 01/08/17 06:14 Amylase Level 400 U/L 522 U/L Lipase 4990 U/L 2161 U/L Random Vancomycin Level 11.8 mcg/ml White Blood Count 3.88 K/uL Red Blood Count 3.48 M/uL Hemoglobin 9.9 g/dL Hematocrit 30.6 % Mean Corpuscular Volume 87.9 fL Mean Corpuscular Hemoglobin 28.4 pg Mean Corpuscular Hemoglobin Concent 32.4 g/dl Platelet Count 201 K/uL Mean Platelet Volume 9.1 fL Neutrophils (%) (Auto) 83.9 % Lymphocytes (%) (Auto) 6.7 % Monocytes (%) (Auto) 6.7 % Eosinophils (%) (Auto) 2.1 % Basophils (%) (Auto) 0.3 % Neutrophils # (Auto) 3.26 K/uL Lymphocytes # (Auto) 0.26 K/uL Monocytes # (Auto) 0.26 K/uL Eosinophils # (Auto) 0.08 K/uL Basophils # (Auto) 0.01 K/uL RDW Standard Deviation 46.7 fL RDW Coefficient of Variation 14.6 % Immature Granulocyte % (Auto) 0.3 % Immature Granulocyte # (Auto) 0.01 K/uL Sodium Level 143 mmol/L Potassium Level 4.1 mmol/L Chloride Level 110 mmol/L Carbon Dioxide Level 22 mmol/L Anion Gap 11.0 mmol/L Blood Urea Nitrogen 11 mg/dl Creatinine 0.96 mg/dl Est Creatinine Clear Calc Drug Dose 75.2 ml/min Estimated GFR () 96.4 Estimated GFR (Non- 83.2 BUN/Creatinine Ratio 11.9 Random Glucose 71 mg/dl Calcium Level 7.7 mg/dl Magnesium Level 1.9 mg/dl Total Bilirubin 0.8 mg/dl Direct Bilirubin 0.2 mg/dl Aspartate Amino Transf (AST/SGOT) 28 U/L Alanine Aminotransferase (ALT/SGPT) 22 U/L Alkaline Phosphatase 146 U/L Total Protein 6.0 gm/dl Albumin 2.3 gm/dl Impression Patient is a 66 year old male admitted for other reasons who then developed acute abdominal pain while here and lipase ayden to 5000 with normal LFTs. CBD dilated as well as mild PD dilation. He should have an MRCP but is refusing all procedures. Plan Encouraged patient to consider MRCP. EUS as an outpatient once he recovers from this acute episode is also an option. Conservative mgt with IVF and PRN anti-emetics and analgesia.
[2017-01-08 14:42] VITALS: BP 165/96; PULSE 65; TEMP 36.9; O2SAT 96
[2017-01-08] MEDS: HYDROmorphone INJ 1 MG/ML SYR IV PRN ×2 (15:42→19:48)
[2017-01-08] MEDS: CLONIDINE HCL 0.1 MG TAB PO PRN (17:03)
[2017-01-08 17:04] VITALS: BP 177/92
[2017-01-08] MEDS: ONDANSETRON INJ 2 MG/ML 2 ML VIAL IV PRN (17:11)
[2017-01-08] MEDS ORDERED: VANCOMYCIN INJ 1,000 MG in SODIUM CHLORIDE 0.9% 250ML 250 ML IV SCH (18:00)
[2017-01-09 00:14] VITALS: BP 166/85; PULSE 58; TEMP 36.7; O2SAT 98
[2017-01-09 01:00] VITALS: BP 160/81; PULSE 65
[2017-01-09] MEDS: SODIUM CHLOR 0.45% + 20MEQ KCL 1,000 ML IV SCH ×4 (03:24→18:53)
[2017-01-09] MEDS: HEPARIN SOD 5000 UNIT/0.5 ML CARP SQ SCH ×3 (05:58→21:53)
[2017-01-09 07:35] VITALS: BP 185/90; PULSE 60; TEMP 36.6; O2SAT 99
[2017-01-09 07:36] VITALS: BP 175/88
[2017-01-09 07:44] LABS: BUN/CREATININE RATIO 13.7 (10-20); CALCIUM 8.2 mg/dl (8.5-10.1); CREATININE 0.94 mg/dl (0.60-1.40); POTASSIUM 4.7 mmol/L (3.5-5.1)
[2017-01-09] MEDS: LISINOPRIL 10 MG TAB PO SCH (09:30)
[2017-01-09] MEDS: PIPERACILL/TAZOBAC IV 3.375 GM in DEXTROSE 5% 100ML IV SCH ×2 (09:34→16:42)
[2017-01-09 09:57] LABS: AMYLASE 261 U/L (25-115)
--- NOTE | 2017-01-09 10:01 | Gastroenterology Progress Note ---
Progress Note Date of Service: Jan 09, 2017 Subjective Pt evaluation today including: conversation w/ patient, physical exam, chart review, lab review Mr. Masterson was seen and examined this morning. He reports that he is feeling much better and is getting hungry. He is not having any abdominal pain at rest, however, reports that with pressure there is discomfort in the RUQ and epigastric region. He is tired. Denying all over S/S CT abd: Interval development of biliary and pancreatic ductal dilatation with mild infiltration adjacent to the pancreatic head, uncinate process and second portion of the duodenum. The findings raise the possibility of acute pancreatitis. The ductal dilatation may be related to acute pancreatitis. A mass cannot be excluded on this exam and therefore a short-term follow-up pancreatic protocol CT in one month is recommended. Mild gallbladder distention with gallbladder wall thickening which has been shown on prior exams. Increased enhancement or attenuation within the adjacent liver parenchyma. Acute cholecystitis would be difficult to exclude on this exam. Review of Systems Constitutional: + fatigue, No chills, No fever Respiratory: No cough, No shortness of breath Cardiac: No chest pain, No edema Abdomen: + pain, No GI bleeding, No constipation, No diarrhea, No nausea, No vomiting Medications Current Inpatient Medications Medications (Trade) Dose Ordered Sig/Marilyn Route Start Time Stop Time Status Last Admin Dose Admin Acetaminophen (Tylenol Tab) 650 mg Q4H PRN PO 01/03/17 05:15 02/02/17 05:14 Ondansetron HCl (Zofran Inj) 4 mg Q6H PRN IV 01/03/17 05:15 02/02/17 05:14 01/08/17 17:11 4 MG Miscellaneous (Iv Fluids Completed) 1 ea PRN PRN N/A 01/03/17 05:45 01/03/18 05:44 Clonidine HCl (Catapres Tab) 0.1 mg Q6H PRN PO 01/03/17 09:15 02/02/17 09:14 01/08/17 17:03 0.1 MG Lisinopril 10 mg 10 mg QAM PO 01/06/17 08:00 02/05/17 07:59 01/09/17 09:30 10 MG Piperacillin Sod/ Tazobactam Sod/ Dextrose (Zosyn Iv/D5 100ml) 115 ml @ 28.75 mls/ hr Q8H IV 01/06/17 00:00 01/16/17 00:00 01/09/17 09:34 28.75 MLS/HR Piperacillin Sod/ Tazobactam Sod (Consult) 1 ea UD PRN N/A 01/05/17 16:45 02/04/17 16:44 Heparin Sodium (Porcine) (Heparin Sq 5000 Unit/0.5ml) 5,000 unit Q8 SQ 01/05/17 22:00 02/04/17 21:59 Tramadol HCl (Ultram Tab) not relieved by tylenol @ Q6H PRN PO 01/06/17 05:15 02/05/17 05:14 01/07/17 09:14 50 MG Morphine Sulfate (MoRPHine SULFATE INJ) 4 mg Q6H PRN IV 01/06/17 00:30 01/20/17 00:29 01/07/17 10:38 4 MG Al Hydrox/Mg Hydrox/Simethicone (Maalox Max Susp) 30 ml Q6H PRN PO 01/07/17 09:45 02/06/17 09:44 Ioversol (Optiray 320) 125 ml UD PRN IV 01/07/17 10:30 01/11/17 10:29 Hydromorphone HCl 1 mg 1 mg Q2H PRN IV 01/07/17 20:00 01/21/17 19:59 01/08/17 19:48 1 MG Potassium Chloride/Sodium Chloride (1/2 Nss + 20meq KCl 1000ml) 1,000 ml @ 200 mls/hr Q5H IV 01/07/17 21:30 02/06/17 21:29 01/09/17 08:28 200 MLS/HR Objective Vital Signs Date Time Temp Pulse Resp B/P Pulse Ox O2 Delivery O2 Flow Rate FiO2 01/09/17 07:36 175/88 01/09/17 07:35 36.6 60 16 185/90 99 01/09/17 01:00 65 160/81 01/09/17 00:14 36.7 58 18 166/85 98 Room Air 01/09/17 00:00 Room Air 01/08/17 20:00 Room Air 01/08/17 17:04 177/92 01/08/17 16:00 Room Air 01/08/17 14:42 36.9 65 18 165/96 96 Room Air Physical Exam General Appearance: no apparent distress Eyes: PERRL Neck: supple, trachea midline Respiratory/Chest: lungs clear, normal breath sounds, no respiratory distress, no accessory muscle use Cardiovascular: regular rate, rhythm, no gallop, no JVD, no murmur Abdomen: normal bowel sounds, non tender, soft, no organomegaly, no pulsatile mass Neurologic/Psych: alert, normal mood/affect, oriented x 3 Skin: normal color, no jaundice, warm/dry, no rash Laboratory Results Last 24 Hours Test 01/09/17 06:13 Sodium Level 140 mmol/L Potassium Level 4.7 mmol/L Chloride Level 108 mmol/L Carbon Dioxide Level 21 mmol/L Anion Gap 11.0 mmol/L Blood Urea Nitrogen 13 mg/dl Creatinine 0.94 mg/dl Est Creatinine Clear Calc Drug Dose 76.8 ml/min Estimated GFR () 98.9 Estimated GFR (Non- 85.3 BUN/Creatinine Ratio 13.7 Random Glucose 53 mg/dl Calcium Level 8.2 mg/dl Magnesium Level 2.0 mg/dl Total Bilirubin 0.7 mg/dl Direct Bilirubin 0.2 mg/dl Aspartate Amino Transf (AST/SGOT) 16 U/L Alanine Aminotransferase (ALT/SGPT) 16 U/L Alkaline Phosphatase 136 U/L Total Protein 6.3 gm/dl Albumin 2.5 gm/dl Assessment and Plan Mr. Masterson is a 66 year old male admitted for fatigue and sleepiness who developed acute abdominal pain with lipase of 5000 & normal LFTs. Imaging is suggestive of CBD and PD dilation, MRCP is strongly recommended but Mr. Masterson is refusing. Today Continue IVF, antiemetics and pain medications as needed Clear liquids for lunch MRCP/EUS as an outpatient if patient is agreeable Attg addendum: I interviewed and examined pt, reviewed chart and labs. Pt is hungry. He states that pain is improved, and is now no different than his chronic abd pain. He is mildly tender in epigastrium. He does not want an EUS or MRCP. We discussed possible causes of pancreatitis, including possibilty of panc CA. He may have passed a stone or may havd ductal dilation related to narcs; I cannot rule out underlying panc stricture or mass. Diet as tolerated, analgesia as needed. Can decrease IVF infusion rate. Will sign off, please reconsult as needed.
--- NOTE | 2017-01-09 11:51 | Infectious Disease Progress Nt ---
Progress Note Date of Service Jan 09, 2017. Subjective Pt evaluation today including: conversation w/ patient, physical exam, chart review, lab review, review of studies, review of inpatient medication list WBC count yesterday was 3.88. Noted that his lipase jumped to 4990 on 01/07, but is down to [address] Scan of the abdomen showed development of biliary and pancreatic duct dilatation with mild infiltration around the pancreatic head which could be related to acute pancreatitis. The patient states that he continues to be very weak and fatigued. He is NPO currently. He does not complain of any further abdominal or right leg pain. He continues to have loose stools on and off. Wound culture is growing pansensitive Enterobacter and MSSA along with another GNB pending identification. Vancomycin was discontinued. Patient continues on IV Zosyn. All Other Systems: Reviewed and Negative Medications Current Inpatient Medications Medications (Trade) Dose Ordered Sig/Marilyn Route Start Time Stop Time Status Last Admin Dose Admin Acetaminophen (Tylenol Tab) 650 mg Q4H PRN PO 01/03/17 05:15 02/02/17 05:14 Ondansetron HCl (Zofran Inj) 4 mg Q6H PRN IV 01/03/17 05:15 02/02/17 05:14 01/08/17 17:11 4 MG Miscellaneous (Iv Fluids Completed) 1 ea PRN PRN N/A 01/03/17 05:45 01/03/18 05:44 Clonidine HCl (Catapres Tab) 0.1 mg Q6H PRN PO 01/03/17 09:15 02/02/17 09:14 01/08/17 17:03 0.1 MG Lisinopril 10 mg 10 mg QAM PO 01/06/17 08:00 02/05/17 07:59 01/09/17 09:30 10 MG Piperacillin Sod/ Tazobactam Sod/ Dextrose (Zosyn Iv/D5 100ml) 115 ml @ 28.75 mls/ hr Q8H IV 01/06/17 00:00 01/16/17 00:00 01/09/17 09:34 28.75 MLS/HR Piperacillin Sod/ Tazobactam Sod (Consult) 1 ea UD PRN N/A 01/05/17 16:45 02/04/17 16:44 Heparin Sodium (Porcine) (Heparin Sq 5000 Unit/0.5ml) 5,000 unit Q8 SQ 01/05/17 22:00 02/04/17 21:59 Tramadol HCl (Ultram Tab) not relieved by tylenol @ Q6H PRN PO 01/06/17 05:15 02/05/17 05:14 01/07/17 09:14 50 MG Morphine Sulfate (MoRPHine SULFATE INJ) 4 mg Q6H PRN IV 01/06/17 00:30 01/20/17 00:29 01/07/17 10:38 4 MG Al Hydrox/Mg Hydrox/Simethicone (Maalox Max Susp) 30 ml Q6H PRN PO 01/07/17 09:45 02/06/17 09:44 Ioversol (Optiray 320) 125 ml UD PRN IV 01/07/17 10:30 01/11/17 10:29 Hydromorphone HCl 1 mg 1 mg Q2H PRN IV 01/07/17 20:00 01/21/17 19:59 01/08/17 19:48 1 MG Potassium Chloride/Sodium Chloride (1/2 Nss + 20meq KCl 1000ml) 1,000 ml @ 200 mls/hr Q5H IV 01/07/17 21:30 02/06/17 21:29 01/09/17 08:28 200 MLS/HR Objective Vital Signs Date Time Temp Pulse Resp B/P Pulse Ox O2 Delivery O2 Flow Rate FiO2 01/09/17 07:36 175/88 01/09/17 07:35 36.6 60 16 185/90 99 01/09/17 01:00 65 160/81 01/09/17 00:14 36.7 58 18 166/85 98 Room Air 01/09/17 00:00 Room Air 01/08/17 20:00 Room Air 01/08/17 17:04 177/92 01/08/17 16:00 Room Air 01/08/17 14:42 36.9 65 18 165/96 96 Room Air Physical Exam General Appearance: WD/WN, no apparent distress Eyes: normal inspection, sclerae normal ENT: hearing grossly normal Neck: supple, trachea midline Respiratory/Chest: no respiratory distress, no accessory muscle use Cardiovascular: regular rate, rhythm Extremities: normal range of motion, + swelling, + pertinent finding (right lower extremity with chronic changes from lymphedema. Dressing intact.) Neurologic/Psychiatric: alert, normal mood/affect Skin: warm/dry, no rash Laboratory Results CT OF THE ABDOMEN AND PELVIS WITH CONTRAST CLINICAL HISTORY: Central abdominal pain. COMPARISON STUDY: CT of the abdomen and pelvis November 29, 2016. TECHNIQUE: Following IV administration of 118 mL of Optiray-320, axial images of the abdomen and pelvis were obtained from the lung bases to the proximal femurs. Images were reviewed in the axial, sagittal, and coronal planes. IV contrast was administered without complication. CT DOSE: 517.93 mGy.cm FINDINGS: Visualized portions of the lower chest demonstrate moderate cardiomegaly and trace bilateral pleural effusions, right larger than left. Linear and groundglass opacity suggest atelectasis. There has been interval development of moderate intra and extrahepatic biliary ductal dilatation and mild pancreatic ductal dilatation since CT of November 29, 2016. The main pancreatic duct measures 4 mm. The common bile duct measures 1 cm. There is somewhat abrupt narrowing of the distal common bile duct. There is mild infiltration adjacent to the pancreas, most evident along the uncinate process of the pancreatic head. There is prominent mucosal enhancement of the second portion of the duodenum. The gallbladder is mildly distended with gallbladder wall thickening and possible trace pericholecystic fluid. There is increased attenuation of the liver within the gallbladder fossa. The spleen is slightly enlarged. This is unchanged. Marked right renal atrophy is unchanged. There is no hydronephrosis. 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 Extensive atherosclerotic plaque is noted within the major vasculature. Right groin infiltration as well as asymmetric edema of the right thigh and groin is unchanged. Numerous collaterals within the pelvis are noted. These include perirectal collaterals. There is no pneumatosis, free air or portal venous gas. There is no evidence for a bowel obstruction. There is partial ankylosis of the right sacroiliac joint. IMPRESSION: 1. Interval development of biliary and pancreatic ductal dilatation with mild infiltration adjacent to the pancreatic head, uncinate process and second portion of the duodenum. The findings raise the possibility of acute pancreatitis. The ductal dilatation may be related to acute pancreatitis. A mass cannot be excluded on this exam and therefore a short-term follow-up pancreatic protocol CT in one month is recommended. 2. Mild gallbladder distention with gallbladder wall thickening which has been shown on prior exams. Increased enhancement or attenuation within the adjacent liver parenchyma. Acute cholecystitis would be difficult to exclude on this exam. 3. Otherwise, no significant change in appearance of the abdomen and pelvis with multiple chronic findings, as described above. RUN DATE: 01/08/17 [facility] PAGE 1 RUN TIME: 843 Specimen Inquiry PATIENT: LUZ MARINA MORALEZ LOC: [facility] U # : [id number] AGE/SX: 66/M ROOM: [facility] REG : 01/07/[address]: Patrick Sexton MD : 1950 BED: 1 DIS : STATUS: ADM IN TLOC: SPEC #: [id number] AJAY: 01/05/17 STATUS: RES REQ #: [id number] RECD: 01/05/17-[address]: Patrick Sexton MD SOURCE: DRAIN-SURF ENTR: 01/05/17-16[address] [facility] DR: No Doctor, Assigned [facility]: Trung Puckett M.D. Patterson, Jennifer., D.O. ORDERED: KAELA CRUZ/ANA COMMENTS: Has Specimen Been Obtained/Collected? Y Procedure Result Verified Site GRAM STAIN Final 01/06/17-1024 RESULT MODERATE WBCs SEEN RARE GRAM POSITIVE BACILLI RARE GRAM POSITIVE COCCI SURFACE WOUND CULTURE Preliminary 01/08/1743 Organism 1 ENTEROBACTER CLOACAE QUANITY FEW SENS SENSITIVITY TO FOLLOW +MIXWOUND PLUS MODERATE COUNTS OF PROBABLE SKIN PELON Organism 2 STAPHYLOCOCCUS AUREUS QUANITY FEW SENS SENSITIVITY TO FOLLOW Organism 3 CORYNEBACTERIUM SPECIES QUANITY MODERATE SENS NO SENSITIVITY TO FOLLOW Organism 4 GRAM NEGATIVE BACILLI QUANITY RARE SENS SENSITIVITY TO FOLLOW ENT CLOAC STAPH AUR M.I.C. RX M.I.C. RX --------- ------ --------- ------ TRIMET/SULFA <=2/38 S <=0.5/9.5 S * OXACILLIN <=0.25 S CEFOTAXIME <=2 S CEFTRIAXONE <=1 S CEFEPIME <=4 S IMIPENEM <=1 S VANCOMYCIN 2 S GENTAMICIN <=4 S TOBRAMYCIN <=4 S ERYTHROMYCIN <=0.5 S TETRACYCLINE <=4 S AMIKACIN <=16 S CIPROFLOXACIN <=1 S LEVOFLOXACIN <=2 S CLINDAMYCIN <=0.5 S ERTAPENEM <=1 S DAPTOMYCIN <=0.5 S CONTINUED ON NEXT PAGE RUN DATE: 01/08/17 [facility] LAB PAGE 2 RUN TIME: 0844 Specimen Inquiry SPEC: [id number] PATIENT: LUZ MARINA MORALEZ [id number] ( Continued) Procedure Result Verified Site SURFACE WOUND CULTURE Preliminary (continued) 01/08/17-842 JENN BAEZA M.I.C. RX M.I.C. RX --------- ------ --------- ------ PIP/TAZO <=16 S 1. ENTEROBACTER CLOACAE Target Route Dose RX AB Cost M.I.C. IQ ------ ----- ------ -- ------ -------- - ------ TRIMET/SULFA S <=2/38 CEFOTAXIME S <=2 CEFTRIAXONE S <=1 CEFEPIME S <=4 IMIPENEM S <=1 GENTAMICIN S <=4 TOBRAMYCIN S <=4 AMIKACIN S <=16 CIPROFLOXACIN S <=1 LEVOFLOXACIN S <=2 ERTAPENEM S <=1 PIP/TAZO S <=16 2. STAPHYLOCOCCUS AUREUS Target Route Dose RX AB Cost M.I.C. IQ ------ ----- ------ -- ------ -------- - ------ TRIMET/SULFA S <=0.5/ 9.5 * OXACILLIN S <=0.25 VANCOMYCIN S 2 ERYTHROMYCIN S <=0.5 TETRACYCLINE S <=4 CLINDAMYCIN S <=0.5 DAPTOMYCIN S <=0.5 S = SENSITIVE I = INTERMEDIATE R = RESISTANT END OF REPORT Last 24 Hours Test 01/09/17 06:13 Sodium Level 140 mmol/L Potassium Level 4.7 mmol/L Chloride Level 108 mmol/L Carbon Dioxide Level 21 mmol/L Anion Gap 11.0 mmol/L Blood Urea Nitrogen 13 mg/dl Creatinine 0.94 mg/dl Est Creatinine Clear Calc Drug Dose 76.8 ml/min Estimated GFR () 98.9 Estimated GFR (Non- 85.3 BUN/Creatinine Ratio 13.7 Random Glucose 53 mg/dl Calcium Level 8.2 mg/dl Magnesium Level 2.0 mg/dl Total Bilirubin 0.7 mg/dl Direct Bilirubin 0.2 mg/dl Aspartate Amino Transf (AST/SGOT) 16 U/L Alanine Aminotransferase (ALT/SGPT) 16 U/L Alkaline Phosphatase 136 U/L Total Protein 6.3 gm/dl Albumin 2.5 gm/dl Amylase Level 261 U/L Lipase 348 U/L Assessment and Plan Patient with chronic lymphedema and wound infection with surrounding cellulitis of the right lower extremity and also potential acute pancreatitis. GI suggested MRCP, but patient refused. He continues on IV Zosyn. Recommend continuing current therapy pending final culture results. We will continue to follow. Case reviewed and agree with above assessment .
[2017-01-09 15:10] VITALS: BP 162/85; PULSE 54; TEMP 36.4; O2SAT 100
[2017-01-09] MEDS: HYDROmorphone INJ 1 MG/ML SYR IV PRN ×2 (16:18→20:25)
[2017-01-09] MEDS ORDERED: VANCOMYCIN TROUGH ONE (17:30)
[2017-01-09] MEDS ORDERED: SODIUM CHLORIDE 0.9% 1000ML 1,000 ML IV SCH (19:30)
--- NOTE | 2017-01-09 20:50 | Progress Note ---
Medicine Progress Note Date & Time of Visit: Jan 09, 2017 at 20:42. Subjective patient seen resting in bed abdominal pain has resolved no nausea denies leg pain no other symptoms Objective Last 8 Hrs Date Time Temp Pulse Resp B/P Pulse Ox O2 Delivery O2 Flow Rate FiO2 01/09/17 16:00 Room Air 01/09/17 15:10 36.4 54 18 162/85 100 Physical Exam: General-oriented x 3, not in distress, speaks in sentences with no effort Neck- no JVD Lungs- clear breath sounds bilaterally, no rales/wheeze Heart-normal rate, regular rhythm; no murmurs Abdomen- normal bowel sounds,non distended, soft, no tenderness : epigastric region Extremities-right lower leg:dressing in place- less surrounding erythema, swelling, no foul odor left leg: essentially normal Neuro- alert, oriented x 3; no gross focal deficits Skin- warm & dry Laboratory Results: Last 24 Hours Test 01/09/17 06:13 Sodium Level 140 mmol/L Potassium Level 4.7 mmol/L Chloride Level 108 mmol/L Carbon Dioxide Level 21 mmol/L Anion Gap 11.0 mmol/L Blood Urea Nitrogen 13 mg/dl Creatinine 0.94 mg/dl Est Creatinine Clear Calc Drug Dose 76.8 ml/min Estimated GFR () 98.9 Estimated GFR (Non- 85.3 BUN/Creatinine Ratio 13.7 Random Glucose 53 mg/dl Calcium Level 8.2 mg/dl Magnesium Level 2.0 mg/dl Total Bilirubin 0.7 mg/dl Direct Bilirubin 0.2 mg/dl Aspartate Amino Transf (AST/SGOT) 16 U/L Alanine Aminotransferase (ALT/SGPT) 16 U/L Alkaline Phosphatase 136 U/L Total Protein 6.3 gm/dl Albumin 2.5 gm/dl Amylase Level 261 U/L Lipase 348 U/L Assessment & Plan Right Lower Leg Ulcers, Cellulitis Chronic Right Lower Extremity Edema - wound cultures: enterobacter, staph, corynebacterium - blood cultures negative - on Zosyn Day 5 ID consulted, continue IV zosyn for now - Wound care consult on board Acute Pancreatitis - CT abdomen noted; (+) CBD and hepatic duct dilatation - may have passed a stone, cannot rule out pancreatic mass or stricture - given aggressive IV fluids and made NPO - Lipase level improved from 4900 to 2000--> normal today 300s - decreased IV fluids advanced diet GI consulted, patient declining MRCP at this time Fall secondary to lethargy - presenting chief complaint at the ER -CT head: negative - from Cellulitis? - blood cultures: negative Hypertension, elevated secondary to noncompliance - increased Lisinopril to 10mg daily improving hx testicular CA sp surgery hypokalemia -given PO K - resolved chronic anemia, hg at baseline hx DVT as per records, px off anticoag 2 to homelessness schizophrenia as per records past tobacco abuse DVT prophylaxis Heparin Disposition pending Current Inpatient Medications: Current Inpatient Medications Medications (Trade) Dose Ordered Sig/Marilyn Route Start Time Stop Time Status Last Admin Dose Admin Acetaminophen (Tylenol Tab) 650 mg Q4H PRN PO 01/03/17 05:15 02/02/17 05:14 Ondansetron HCl (Zofran Inj) 4 mg Q6H PRN IV 01/03/17 05:15 02/02/17 05:14 01/08/17 17:11 4 MG Miscellaneous (Iv Fluids Completed) 1 ea PRN PRN N/A 01/03/17 05:45 01/03/18 05:44 Clonidine HCl (Catapres Tab) 0.1 mg Q6H PRN PO 01/03/17 09:15 02/02/17 09:14 01/08/17 17:03 0.1 MG Lisinopril 10 mg 10 mg QAM PO 01/06/17 08:00 02/05/17 07:59 01/09/17 09:30 10 MG Piperacillin Sod/ Tazobactam Sod/ Dextrose (Zosyn Iv/D5 100ml) 115 ml @ 28.75 mls/ hr Q8H IV 01/06/17 00:00 01/16/17 00:00 01/09/17 16:42 28.75 MLS/HR Piperacillin Sod/ Tazobactam Sod (Consult) 1 ea UD PRN N/A 01/05/17 16:45 02/04/17 16:44 Heparin Sodium (Porcine) (Heparin Sq 5000 Unit/0.5ml) 5,000 unit Q8 SQ 01/05/17 22:00 02/04/17 21:59 Tramadol HCl (Ultram Tab) not relieved by tylenol @ Q6H PRN PO 01/06/17 05:15 02/05/17 05:14 01/07/17 09:14 50 MG Morphine Sulfate (MoRPHine SULFATE INJ) 4 mg Q6H PRN IV 01/06/17 00:30 01/20/17 00:29 01/07/17 10:38 4 MG Al Hydrox/Mg Hydrox/Simethicone (Maalox Max Susp) 30 ml Q6H PRN PO 01/07/17 09:45 02/06/17 09:44 Ioversol (Optiray 320) 125 ml UD PRN IV 01/07/17 10:30 01/11/17 10:29 Hydromorphone HCl 1 mg 1 mg Q2H PRN IV 01/07/17 20:00 01/21/17 19:59 01/09/17 20:25 1 MG Sodium Chloride (Nss 1000ml) 1,000 ml @ 60 mls/hr [id number] IV 01/09/17 19:30 01/10/17 12:09
[2017-01-09 23:59] VITALS: BP 113/67; PULSE 58; TEMP 36.3; O2SAT 20
[2017-01-10] MEDS: PIPERACILL/TAZOBAC IV 3.375 GM in DEXTROSE 5% 100ML IV SCH ×2 (00:44→08:13)
[2017-01-10] MEDS: HEPARIN SOD 5000 UNIT/0.5 ML CARP SQ SCH ×3 (06:00→20:42)
[2017-01-10 06:42] LABS: BASO % 0.6 %; BASO ABS # 0.02 K/uL (0-0.2); COMPLETE YES; EOS % 4.4 %; HEMATOCRIT 30.4 % (42-52); IG% 0.3 %; LYMPH % 15.6 %; LYMPH ABS # 0.53 K/uL (1.2-3.4); MEAN CELL VOLUME 85.4 fL (80-100); MEAN CORPUSCULAR HEMOGLOBIN 27.8 pg (25-34); MEAN CORPUSCULAR HGB CONC 32.6 g/dl (32-36); MEAN PLATELET VOLUME 8.9 fL (7.4-10.4); MONO % 11.5 %; NEUT % 67.6 %; PLATELET COUNT 227 K/uL (130-400); RED BLOOD COUNT 3.56 M/uL (4.7-6.1); WHITE BLOOD COUNT 3.39 K/uL (4.8-10.8)
[2017-01-10 07:09] LABS: ALT/SGPT 14 U/L (12-78); BLOOD UREA NITROGEN 11 mg/dl (7-18); BUN/CREATININE RATIO 11.3 (10-20); CALCIUM 8.1 mg/dl (8.5-10.1); CARBON DIOXIDE 23 mmol/L (21-32); CHLORIDE 108 mmol/L (98-107); GLUCOSE 107 mg/dl (70-99); MAGNESIUM 2.1 mg/dl (1.8-2.4); POTASSIUM 4.1 mmol/L (3.5-5.1); SODIUM 141 mmol/L (136-145)
[2017-01-10 07:12] LABS: ALKALINE PHOSPHATASE 124 U/L (45-117); AST/SGOT 14 U/L (15-37)
[2017-01-10 07:24] VITALS: BP 168/91; PULSE 56; TEMP 36.9; O2SAT 98
[2017-01-10] MEDS: LISINOPRIL 10 MG TAB PO SCH (08:13)
--- NOTE | 2017-01-10 12:50 | Infectious Disease Progress Nt ---
Progress Note Date of Service Jan 10, 2017. Subjective Pt evaluation today including: conversation w/ patient, physical exam, chart review, lab review, review of studies, review of inpatient medication list WBC today is 3.39. Amylase was 261 yesterday. Creatinine is stable at 1.00. Wound culture is growing Enterobacter, MSSA, Alcaligenes and Corynebacterium. He continues on IV Zosyn and is tolerating this well. He did eat some soup last night. He states that he is feeling slightly better, but he continues to have some mild nausea. All Other Systems: Reviewed and Negative Medications Current Inpatient Medications Medications (Trade) Dose Ordered Sig/Marilyn Route Start Time Stop Time Status Last Admin Dose Admin Acetaminophen (Tylenol Tab) 650 mg Q4H PRN PO 01/03/17 05:15 02/02/17 05:14 Ondansetron HCl (Zofran Inj) 4 mg Q6H PRN IV 01/03/17 05:15 02/02/17 05:14 01/08/17 17:11 4 MG Miscellaneous (Iv Fluids Completed) 1 ea PRN PRN N/A 01/03/17 05:45 01/03/18 05:44 Clonidine HCl (Catapres Tab) 0.1 mg Q6H PRN PO 01/03/17 09:15 02/02/17 09:14 01/08/17 17:03 0.1 MG Lisinopril (Zestril Tab) 10 mg QAM PO 01/06/17 08:00 02/05/17 07:59 01/10/17 08:13 10 MG Heparin Sodium (Porcine) (Heparin Sq 5000 Unit/0.5ml) 5,000 unit Q8 SQ 01/05/17 22:00 02/04/17 21:59 Tramadol HCl (Ultram Tab) not relieved by tylenol @ Q6H PRN PO 01/06/17 05:15 02/05/17 05:14 01/07/17 09:14 50 MG Morphine Sulfate (MoRPHine SULFATE INJ) 4 mg Q6H PRN IV 01/06/17 00:30 01/20/17 00:29 01/07/17 10:38 4 MG Al Hydrox/Mg Hydrox/Simethicone (Maalox Max Susp) 30 ml Q6H PRN PO 01/07/17 09:45 3/20/17 09:44 Ioversol (Optiray 320) 125 ml UD PRN IV 01/07/17 10:30 01/11/17 10:29 Hydromorphone HCl 1 mg 1 mg Q2H PRN IV 01/07/17 20:00 01/21/17 19:59 01/09/17 20:25 1 MG Ampicillin Sodium/ Sulbactam Sodium/ Sodium Chloride (Unasyn Inj/Nss 100ml) 104 ml @ 200 mls/hr Q6H IV 01/10/17 16:00 01/14/17 23:59 Objective Vital Signs Date Time Temp Pulse Resp B/P Pulse Ox O2 Delivery O2 Flow Rate FiO2 01/10/17 08:00 Room Air 01/10/17 07:24 36.9 56 18 168/91 98 Room Air 01/09/17 23:59 36.3 58 20 113/67 20 Room Air 01/09/17 23:59 Room Air 01/09/17 16:00 Room Air 01/09/17 15:10 36.4 54 18 162/85 100 Physical Exam General Appearance: WD/WN, no apparent distress Eyes: normal inspection, sclerae normal ENT: hearing grossly normal Neck: supple, trachea midline Respiratory/Chest: no respiratory distress, no accessory muscle use Cardiovascular: regular rate, rhythm Extremities: + pertinent finding (Continued mild edema of the right lower extremity. Chronic lymphedema. ) Neurologic/Psychiatric: alert, normal mood/affect Skin: + pertinent finding (Continued open ulceration of the right lower extremity. Still with some biofilm noted in ulcerations and moderate surrounding erythema. Improved from previous exam.) Laboratory Results RUN DATE: 01/10/17 [facility] PAGE 1 RUN TIME: 1158 Specimen Inquiry PATIENT: LUZ MARINA MORALEZ LOC: [facility] U # : [id number] AGE/SX: 66/M ROOM: [facility] REG : 01/07/[address]: Meredith Gonzalez M.D. : 1950 BED: 1 DIS : STATUS: ADM IN TLOC: SPEC #: [id number] AJAY: 01/05/17-1550 STATUS: COMP REQ #: [id number] RECD: 01/05/17-[address]: Patrick Sexton MD SOURCE: DRAIN-SURF ENTR: 01/05/17-161 [facility] DR: Keli Le, Assigned SPDESC: LEG Trung Hastings M.D. Patterson, Jennifer., D.O. ORDERED: SURF JACOBO CU/ANA COMMENTS: Has Specimen Been Obtained/Collected? Y Procedure Result Verified Site GRAM STAIN Final 01/06/17-1024 RESULT MODERATE WBCs SEEN RARE GRAM POSITIVE BACILLI RARE GRAM POSITIVE COCCI SURFACE WOUND CULTURE Final 01/10/17-1158 Organism 1 ENTEROBACTER CLOACAE QUANITY FEW SENS SENSITIVITY TO FOLLOW +MIXWOUND PLUS MODERATE COUNTS OF PROBABLE SKIN PELON Organism 2 STAPHYLOCOCCUS AUREUS QUANITY FEW SENS SENSITIVITY TO FOLLOW Organism 3 CORYNEBACTERIUM SPECIES QUANITY MODERATE SENS NO SENSITIVITY TO FOLLOW Organism 4 ALCALIGENES SPECIES QUANITY RARE SENS SENSITIVITY TO FOLLOW CONTINUED ON NEXT PAGE RUN DATE: 01/10/17 [facility] PAGE 2 RUN TIME: 1158 Specimen Inquiry SPEC: [id number] PATIENT: LUZ MARINA MORALEZ [id number] ( Continued) Procedure Result Verified Site SURFACE WOUND CULTURE Final (continued) 01/10/17-1158 ENT DKAC STAPH AUR ALC SPEC M.I.C. RX M.I.C. RX M.I.C. RX --------- ------ --------- ------ --------- ------ TRIMET/SULFA <=2/38 S <=0.5/9.5 S <=2/38 S * OXACILLIN <=0.25 S CEFOTAXIME <=2 S CEFTAZIDIME 4 S CEFTRIAXONE <=1 S CEFEPIME <=4 S 8 S IMIPENEM <=1 S <=1 S AZTREONAM >16 R VANCOMYCIN 2 S GENTAMICIN <=4 S <=4 S TOBRAMYCIN <=4 S <=4 S ERYTHROMYCIN <=0.5 S TETRACYCLINE <=4 S AMIKACIN <=16 S <=16 S CIPROFLOXACIN <=1 S 2 I LEVOFLOXACIN <=2 S <=2 S CLINDAMYCIN <=0.5 S ERTAPENEM <=1 S DAPTOMYCIN <=0.5 S PIP/TAZO <=16 S <=16 S 1. ENTEROBACTER CLOACAE Target Route Dose RX AB Cost M.I.C. IQ ------ ----- ------ -- ------ -------- - ------ TRIMET/SULFA S <=2/38 CEFOTAXIME S <=2 CEFTRIAXONE S <=1 CEFEPIME S <=4 IMIPENEM S <=1 GENTAMICIN S <=4 TOBRAMYCIN S <=4 AMIKACIN S <=16 CIPROFLOXACIN S <=1 LEVOFLOXACIN S <=2 ERTAPENEM S <=1 PIP/TAZO S <=16 2. STAPHYLOCOCCUS AUREUS Target Route Dose RX AB Cost M.I.C. IQ ------ ----- ------ -- ------ -------- - ------ TRIMET/SULFA S <=0.5/ 9.5 * OXACILLIN S <=0.25 VANCOMYCIN S 2 ERYTHROMYCIN S <=0.5 TETRACYCLINE S <=4 CLINDAMYCIN S <=0.5 CONTINUED ON NEXT PAGE RUN DATE: 01/10/17 [facility] PAGE 3 RUN TIME: 1158 Specimen Inquiry SPEC: [id number] PATIENT: LUZ MARINA MORALEZ [id number] ( Continued) Procedure Result Verified Site SURFACE WOUND CULTURE Final (continued) 01/10/17-115 2. STAPHYLOCOCCUS AUREUS (continued) Target Route Dose RX AB Cost M.I.C. IQ ------ ----- ------ -- ------ -------- - ------ DAPTOMYCIN S <=0.5 4. ALCALIGENES SPECIES Target Route Dose RX AB Cost M.I.C. IQ ------ ----- ------ -- ------ -------- - ------ TRIMET/SULFA S <=2/38 CEFTAZIDIME S 4 CEFEPIME S 8 IMIPENEM S <=1 AZTREONAM R >16 GENTAMICIN S <=4 TOBRAMYCIN S <=4 AMIKACIN S <=16 CIPROFLOXACIN I 2 LEVOFLOXACIN S <=2 PIP/TAZO S <=16 S = SENSITIVE I = INTERMEDIATE R = RESISTANT Item Value Date Time Gram Stain - Final Complete 01/05/17 1550 Drainage - Surface Leg Right Lower Blood Culture - Final Complete 01/03/17 1821 Blood NO GROWTH Blood Culture - Final Complete 01/03/17 1832 Blood NO GROWTH Last 24 Hours Test 01/10/17 06:15 White Blood Count 3.39 K/uL Red Blood Count 3.56 M/uL Hemoglobin 9.9 g/dL Hematocrit 30.4 % Mean Corpuscular Volume 85.4 fL Mean Corpuscular Hemoglobin 27.8 pg Mean Corpuscular Hemoglobin Concent 32.6 g/dl Platelet Count 227 K/uL Mean Platelet Volume 8.9 fL Neutrophils (%) (Auto) 67.6 % Lymphocytes (%) (Auto) 15.6 % Monocytes (%) (Auto) 11.5 % Eosinophils (%) (Auto) 4.4 % Basophils (%) (Auto) 0.6 % Neutrophils # (Auto) 2.29 K/uL Lymphocytes # (Auto) 0.53 K/uL Monocytes # (Auto) 0.39 K/uL Eosinophils # (Auto) 0.15 K/uL Basophils # (Auto) 0.02 K/uL RDW Standard Deviation 45.9 fL RDW Coefficient of Variation 14.5 % Immature Granulocyte % (Auto) 0.3 % Immature Granulocyte # (Auto) 0.01 K/uL Sodium Level 141 mmol/L Potassium Level 4.1 mmol/L Chloride Level 108 mmol/L Carbon Dioxide Level 23 mmol/L Anion Gap 10.0 mmol/L Blood Urea Nitrogen 11 mg/dl Creatinine 1.00 mg/dl Est Creatinine Clear Calc Drug Dose 72.2 ml/min Estimated GFR () 91.8 Estimated GFR (Non- 79.2 BUN/Creatinine Ratio 11.3 Random Glucose 107 mg/dl Calcium Level 8.1 mg/dl Magnesium Level 2.1 mg/dl Total Bilirubin 0.4 mg/dl Direct Bilirubin < 0.1 mg/dl Aspartate Amino Transf (AST/SGOT) 14 U/L Alanine Aminotransferase (ALT/SGPT) 14 U/L Alkaline Phosphatase 124 U/L Total Protein 6.3 gm/dl Albumin 2.4 gm/dl Assessment and Plan Patient with chronic lymphedema and wound infection with surrounding cellulitis of the right lower extremity and also potential acute pancreatitis. GI suggested MRCP, but patient refused. He is currently on IV Zosyn, will decrease spectrum to Unasyn with available cultures. He likely will need a few days of IV abx therapy still. He is very noncompliant after he leaves the hospital, so he likely will not transition to PO abx well. case reviewed and agree with above assessment
[2017-01-10 13:36] VITALS: BP 162/80; PULSE 63; O2SAT 99
[2017-01-10 15:39] VITALS: BP 176/87; PULSE 57; TEMP 36.6; O2SAT 100
[2017-01-10] MEDS: AMPICILLIN/SULBACTAM SOD INJ 1,500 MG in SODIUM CHLORIDE 0.9% 100ML 100 ML IV SCH ×2 (16:19→21:40)
--- NOTE | 2017-01-10 18:03 | Progress Note ---
Internal Med Progress Note Date of Service: Jan 10, 2017. Provider Documentation: SUBJECTIVE: The patient was seen and examined Dizzy on ambulation Has been getting Physical Therapy OBJECTIVE: Vital Signs-as noted below Exam: General-No distress at rest Eyes-normal ENT-normal Neck-supple Lungs-clear to auscultate bilaterally Heart-regular Abdomen-Benign,no masses,bowel sound present Extremities-Bilateral leg edema,chronic with Lymphedema and ulceration Right more than the left Multiple ulcerations with discharges Neuro-AAOx3 Lab data as noted below. ASSESSMENT & PLAN: Right Lower Leg Ulcers, Cellulitis-recurrent Chronic Right Lower Extremity Edema/Lymphedema Chronic Skin changes - wound cultures: Enterobacter, staph, corynebacterium - blood cultures negative - on Zosyn Day 5 -ID consulted and appreciate input - Wound care consult on board -Antibiotic has been changed to Unasyn from 01/10/17 -likely to transition to oral Augmentin on discharge Acute Pancreatitis - CT abdomen noted; (+) CBD and hepatic duct dilatation - may have passed a stone, cannot rule out pancreatic mass or stricture - given aggressive IV fluids and made NPO - Lipase level improved from 4900 to 2000--> normal today 300s - decreased IV fluids -Tolerating advanced diet -GI consulted, patient declining MRCP at this time -no more symptoms Fall secondary to lethargy -likely secondary to dehydration,hypotension and infection - presenting chief complaint at the ER -CT head: negative - blood cultures: negative -getting PT/OT Hypertension, elevated secondary to noncompliance - increased Lisinopril to 10mg daily improving hx testicular CA sp surgery Chronic anemia, hg at baseline H/O DVT as per records, px off anticoag 2 to homelessness Schizophrenia as per records No acute symptoms DVT prophylaxis Heparin Disposition Likely discharge in 2-3 days Vital Signs: Date Time Temp Pulse Resp B/P Pulse Ox O2 Delivery O2 Flow Rate FiO2 01/10/17 16:00 Room Air 01/10/17 15:39 36.6 57 18 176/87 100 Room Air 01/10/17 13:36 63 14 162/80 99 Room Air 01/10/17 08:00 Room Air 01/10/17 07:24 36.9 56 18 168/91 98 Room Air 01/09/17 23:59 36.3 58 20 113/67 20 Room Air 01/09/17 23:59 Room Air Lab Results: Results Past 24 Hours Test 01/10/17 06:15 Range/Units White Blood Count 3.39 4.8-10.8 K/uL Red Blood Count 3.56 4.7-6.1 M/uL Hemoglobin 9.9 14.0-18.0 g/dL Hematocrit 30.4 42-52 % Mean Corpuscular Volume 85.4 80-100 fL Mean Corpuscular Hemoglobin 27.8 25-34 pg Mean Corpuscular Hemoglobin Concent 32.6 32-36 g/dl Platelet Count 227 130-400 K/uL Mean Platelet Volume 8.9 7.4-10.4 fL Neutrophils (%) (Auto) 67.6 % Lymphocytes (%) (Auto) 15.6 % Monocytes (%) (Auto) 11.5 % Eosinophils (%) (Auto) 4.4 % Basophils (%) (Auto) 0.6 % Neutrophils # (Auto) 2.29 1.4-6.5 K/uL Lymphocytes # (Auto) 0.53 1.2-3.4 K/uL Monocytes # (Auto) 0.39 0.11-0.59 K/uL Eosinophils # (Auto) 0.15 0-0.5 K/uL Basophils # (Auto) 0.02 0-0.2 K/uL RDW Standard Deviation 45.9 36.4-46.3 fL RDW Coefficient of Variation 14.5 11.5-14.5 % Immature Granulocyte % (Auto) 0.3 % Immature Granulocyte # (Auto) 0.01 0.00-0.02 K/uL Sodium Level 141 136-145 mmol/L Potassium Level 4.1 3.5-5.1 mmol/L Chloride Level 108 98-107 mmol/L Carbon Dioxide Level 23 21-32 mmol/L Anion Gap 10.0 3-11 mmol/L Blood Urea Nitrogen 11 7-18 mg/dl Creatinine 1.00 0.60-1.40 mg/dl Est Creatinine Clear Calc Drug Dose 72.2 ml/min Estimated GFR () 91.8 Estimated GFR (Non- 79.2 BUN/Creatinine Ratio 11.3 10-20 Random Glucose 107 70-99 mg/dl Calcium Level 8.1 8.5-10.1 mg/dl Magnesium Level 2.1 1.8-2.4 mg/dl Total Bilirubin 0.4 0.2-1 mg/dl Direct Bilirubin < 0.1 0-0.2 mg/dl Aspartate Amino Transf (AST/SGOT) 14 15-37 U/L Alanine Aminotransferase (ALT/SGPT) 14 12-78 U/L Alkaline Phosphatase 124 45-117 U/L Total Protein 6.3 6.4-8.2 gm/dl Albumin 2.4 3.4-5.0 gm/dl
[2017-01-10 18:11] VITALS: BP 185/94
[2017-01-10] MEDS: CLONIDINE HCL 0.1 MG TAB PO PRN (18:12)
[2017-01-10 22:03] VITALS: BP 173/97; PULSE 65
[2017-01-10] MEDS: HYDROmorphone INJ 1 MG/ML SYR IV PRN (22:08)
[2017-01-10 23:59] VITALS: BP 155/89; PULSE 59; TEMP 36.7; O2SAT 97
[2017-01-11] MEDS: AMPICILLIN/SULBACTAM SOD INJ 1,500 MG in SODIUM CHLORIDE 0.9% 100ML 100 ML IV SCH ×4 (03:58→21:41)
[2017-01-11] MEDS: HEPARIN SOD 5000 UNIT/0.5 ML CARP SQ SCH ×3 (05:16→21:40)
[2017-01-11 07:27] VITALS: BP 166/94; PULSE 54; TEMP 36.3; O2SAT 98
[2017-01-11 07:42] LABS: ALKALINE PHOSPHATASE 109 U/L (45-117); ALT/SGPT 12 U/L (12-78); AST/SGOT 11 U/L (15-37)
[2017-01-11] MEDS: LISINOPRIL 10 MG TAB PO SCH (09:20)
[2017-01-11 15:25] VITALS: BP 163/80; PULSE 61; TEMP 36.7; O2SAT 100
[2017-01-11] MEDS: CLONIDINE HCL 0.1 MG TAB PO PRN (15:33)
--- NOTE | 2017-01-11 17:15 | Progress Note ---
Internal Med Progress Note Date of Service: Jan 11, 2017. Provider Documentation: SUBJECTIVE: The patient was seen and examined Has been getting Physical Therapy Reasonably better today [place] be ready to be discharged tomorrow OBJECTIVE: Vital Signs-as noted below Exam: General-No distress at rest Eyes-normal ENT-normal Neck-supple Lungs-clear to auscultate bilaterally Heart-regular Abdomen-Benign,no masses,bowel sound present Extremities-Bilateral leg edema,chronic with Lymphedema and ulceration Right more than the left Multiple ulcerations with discharges Neuro-AAOx3 Lab data as noted below. ASSESSMENT & PLAN: Right Lower Leg Ulcers, Cellulitis-recurrent Chronic Right Lower Extremity Edema/Lymphedema Chronic Skin changes - wound cultures: Enterobacter, staph, corynebacterium - blood cultures negative - on Zosyn Day 5 -ID consulted and appreciate input - Wound care consult on board -Antibiotic has been changed to Unasyn from 01/10/17 -likely to transition to oral Augmentin on discharge -Course of antibiotic needs to be finished Acute Pancreatitis - CT abdomen noted; (+) CBD and hepatic duct dilatation - may have passed a stone, cannot rule out pancreatic mass or stricture - given aggressive IV fluids and made NPO - Lipase level improved from 4900 to 2000--> normal today 300s - decreased IV fluids -Tolerating advanced diet -GI consulted, patient declining MRCP at this time -no more symptoms Fall secondary to lethargy -likely secondary to dehydration,hypotension and infection - presenting chief complaint at the ER -CT head: negative - blood cultures: negative -getting PT/OT -ambulating well Hypertension, elevated secondary to noncompliance - increased Lisinopril to 10mg daily -remains on higher side hx testicular CA sp surgery Chronic anemia, hg at baseline H/O DVT as per records, px off anticoag 2 to homelessness Schizophrenia as per records No acute symptoms DVT prophylaxis Heparin Disposition Likely discharge in 2-3 days Vital Signs: Date Time Temp Pulse Resp B/P Pulse Ox O2 Delivery O2 Flow Rate FiO2 01/11/17 16:32 Room Air 01/11/17 15:25 36.7 61 18 163/80 100 Room Air 01/11/17 09:45 Room Air 01/11/17 07:27 36.3 54 20 166/94 98 Room Air 01/11/17 00:00 Room Air 01/10/17 23:59 36.7 59 20 155/89 97 Room Air 01/10/17 22:03 65 173/97 01/10/17 18:11 185/94 Lab Results: Results Past 24 Hours Test 01/11/17 06:20 Range/Units Magnesium Level 2.0 1.8-2.4 mg/dl Total Bilirubin 0.4 0.2-1 mg/dl Direct Bilirubin < 0.1 0-0.2 mg/dl Aspartate Amino Transf (AST/SGOT) 11 15-37 U/L Alanine Aminotransferase (ALT/SGPT) 12 12-78 U/L Alkaline Phosphatase 109 45-117 U/L Total Protein 6.3 6.4-8.2 gm/dl Albumin 2.4 3.4-5.0 gm/dl
[2017-01-11 19:59] VITALS: BP 159/94; PULSE 55; O2SAT 99
[2017-01-12] VITALS (7 sets, daily range): BP systolic 122–186; BP diastolic 73–95; PULSE 48–58; TEMP 36.4–37; O2SAT 98
[2017-01-12] MEDS: HYDROmorphone INJ 1 MG/ML SYR IV PRN ×3 (01:36→19:35)
[2017-01-12] MEDS: AMPICILLIN/SULBACTAM SOD INJ 1,500 MG in SODIUM CHLORIDE 0.9% 100ML 100 ML IV SCH ×4 (04:12→21:51)
[2017-01-12] MEDS: HEPARIN SOD 5000 UNIT/0.5 ML CARP SQ SCH ×3 (06:00→21:15)
[2017-01-12 07:45] LABS: ALKALINE PHOSPHATASE 111 U/L (45-117); ALT/SGPT 12 U/L (12-78); AST/SGOT 10 U/L (15-37); MAGNESIUM 1.9 mg/dl (1.8-2.4)
[2017-01-12] MEDS: CLONIDINE HCL 0.1 MG TAB PO PRN ×2 (07:52→16:06)
[2017-01-12] MEDS: LISINOPRIL 10 MG TAB PO SCH (07:52)
--- NOTE | 2017-01-12 10:20 | Infectious Disease Progress Nt ---
Progress Note Date of Service Jan 12, 2017. Subjective Pt evaluation today including: conversation w/ patient, physical exam, chart review, lab review, review of studies, conversation w/ regional engagement consultant (Dr. Gonzalez), review of inpatient medication list Repeat AST today was 10. Direct bilirubin stable at <0.1. Patient is feeling slightly better, but he continues to be very fatigued. He has no pain in his left lower extremity currently. I did discuss this patient with Dr. Gonzalez and Charity in wound care. We checked the patient's wounds together. His swelling is less but he has continued maceration of his wound of the left leg. There continues to be some mild erythema of the surrounding area. Final wound culture showed Enterobacter, MSSA, and Alcaligenes. Patient is refusing other types of dressing, though he did agree to one patch of Aquacel over night. All Other Systems: Reviewed and Negative Medications Current Inpatient Medications Medications (Trade) Dose Ordered Sig/Marilyn Route Start Time Stop Time Status Last Admin Dose Admin Acetaminophen (Tylenol Tab) 650 mg Q4H PRN PO 01/03/17 05:15 02/02/17 05:14 Ondansetron HCl (Zofran Inj) 4 mg Q6H PRN IV 01/03/17 05:15 02/02/17 05:14 01/08/17 17:11 4 MG Miscellaneous (Iv Fluids Completed) 1 ea PRN PRN N/A 01/03/17 05:45 01/03/18 05:44 Clonidine HCl (Catapres Tab) 0.1 mg Q6H PRN PO 01/03/17 09:15 02/02/17 09:14 01/12/17 07:52 0.1 MG Lisinopril (Zestril Tab) 10 mg QAM PO 01/06/17 08:00 02/05/17 07:59 01/12/17 07:52 10 MG Heparin Sodium (Porcine) (Heparin Sq 5000 Unit/0.5ml) 5,000 unit Q8 SQ 01/05/17 22:00 02/04/17 21:59 Tramadol HCl (Ultram Tab) not relieved by tylenol @ Q6H PRN PO 01/06/17 05:15 02/05/17 05:14 01/07/17 09:14 50 MG Morphine Sulfate (MoRPHine SULFATE INJ) 4 mg Q6H PRN IV 01/06/17 00:30 01/20/17 00:29 01/07/17 10:38 4 MG Al Hydrox/Mg Hydrox/Simethicone (Maalox Max Susp) 30 ml Q6H PRN PO 01/07/17 09:45 02/06/17 09:44 Hydromorphone HCl 1 mg 1 mg Q2H PRN IV 01/07/17 20:00 01/21/17 19:59 01/12/17 01:36 1 MG Ampicillin Sodium/ Sulbactam Sodium/ Sodium Chloride (Unasyn Inj/Nss 100ml) 104 ml @ 200 mls/hr Q6H IV 01/10/17 16:00 01/14/17 23:59 01/12/17 04:12 200 MLS/HR Objective Vital Signs Date Time Temp Pulse Resp B/P Pulse Ox O2 Delivery O2 Flow Rate FiO2 01/12/17 08:00 98 Room Air 01/12/17 07:50 36.6 48 20 179/85 98 Room Air 01/12/17 00:09 37.0 58 20 150/83 98 Room Air 01/12/17 00:00 Room Air 01/11/17 19:59 55 16 159/94 99 Room Air 01/11/17 16:32 Room Air 01/11/17 15:25 36.7 61 18 163/80 100 Room Air Physical Exam General Appearance: WD/WN, no apparent distress Eyes: normal inspection, sclerae normal ENT: hearing grossly normal Neck: supple, trachea midline Respiratory/Chest: no respiratory distress, no accessory muscle use Cardiovascular: + bradycardia Extremities: + pertinent finding (continued chronic lymphedema changes of the right lower extremity. ) Neurologic/Psychiatric: alert, normal mood/affect Skin: warm/dry, + pertinent finding (continued mild erythema of the right lower extremity. Maceration of the multiple open wounds and biofilm still noted. ) Laboratory Results Item Value Date Time Gram Stain - Final Complete 01/05/17 1550 Drainage - Surface Leg Right Lower Last 24 Hours Test 01/12/17 06:53 Magnesium Level 1.9 mg/dl Total Bilirubin 0.3 mg/dl Direct Bilirubin < 0.1 mg/dl Aspartate Amino Transf (AST/SGOT) 10 U/L Alanine Aminotransferase (ALT/SGPT) 12 U/L Alkaline Phosphatase 111 U/L Total Protein 6.4 gm/dl Albumin 2.4 gm/dl Assessment and Plan Patient with chronic lymphedema and wound infection with surrounding cellulitis of the right lower extremity and also potential acute pancreatitis. GI suggested MRCP, but patient refused. He is currently on IV Unasyn, and likely this patient will need a few more days due to continued maceration of the right lower extremity. He refuses to take PO abx upon discharge and likely would not be accepted at rehab for continued therapy either. We will follow. Case reviewed and agree with above assessment
--- NOTE | 2017-01-12 16:01 | Progress Note ---
Internal Med Progress Note Date of Service: Jan 12, 2017. Provider Documentation: SUBJECTIVE: The patient was seen and examined Has been getting Physical Therapy Wound is not yet healed Will need a few more days OBJECTIVE: Vital Signs-as noted below Exam: General-No distress at rest Eyes-normal ENT-normal Neck-supple Lungs-clear to auscultate bilaterally Heart-regular Abdomen-Benign,no masses,bowel sound present Extremities-Bilateral leg edema,chronic with Lymphedema and ulceration Right more than the left Multiple ulcerations with discharges -a little better Neuro-AAOx3 Lab data as noted below. ASSESSMENT & PLAN: Right Lower Leg Ulcers, Cellulitis-recurrent Chronic Right Lower Extremity Edema/Lymphedema Chronic Skin changes - wound cultures: Enterobacter, staph, corynebacterium - blood cultures negative - on Zosyn Day 5 -ID consulted and appreciate input - Wound care consult on board -Antibiotic has been changed to Unasyn from 01/10/17 -likely to continue IV antibiotic till wound is reasonably better -Course of antibiotic needs to be finished -needs to stay a few more days in hospital Acute Pancreatitis - CT abdomen noted; (+) CBD and hepatic duct dilatation - may have passed a stone, cannot rule out pancreatic mass or stricture - given aggressive IV fluids and made NPO - Lipase level improved from 4900 to 2000--> normal today 300s - decreased IV fluids -Tolerating advanced diet -GI consulted, patient declining MRCP at this time -no more symptoms Fall secondary to lethargy -likely secondary to dehydration,hypotension and infection - presenting chief complaint at the ER -CT head: negative - blood cultures: negative -getting PT/OT -ambulating well Hypertension, elevated secondary to noncompliance - increased Lisinopril to 10mg daily -remains on higher side hx testicular CA sp surgery Chronic anemia, hg at baseline H/O DVT as per records, px off anticoag 2 to homelessness Schizophrenia as per records No acute symptoms DVT prophylaxis Heparin Disposition Likely discharge in 2-3 days Vital Signs: Date Time Temp Pulse Resp B/P Pulse Ox O2 Delivery O2 Flow Rate FiO2 01/12/17 08:00 98 Room Air 01/12/17 07:50 36.6 48 20 179/85 98 Room Air 01/12/17 00:09 37.0 58 20 150/83 98 Room Air 01/12/17 00:00 Room Air 01/11/17 19:59 55 16 159/94 99 Room Air 01/11/17 16:32 Room Air Lab Results: Results Past 24 Hours Test 01/12/17 06:53 Range/Units Magnesium Level 1.9 1.8-2.4 mg/dl Total Bilirubin 0.3 0.2-1 mg/dl Direct Bilirubin < 0.1 0-0.2 mg/dl Aspartate Amino Transf (AST/SGOT) 10 15-37 U/L Alanine Aminotransferase (ALT/SGPT) 12 12-78 U/L Alkaline Phosphatase 111 45-117 U/L Total Protein 6.4 6.4-8.2 gm/dl Albumin 2.4 3.4-5.0 gm/dl
[2017-01-12] MEDS: ONDANSETRON INJ 2 MG/ML 2 ML VIAL IV PRN (19:37)
[2017-01-13] MEDS: AMPICILLIN/SULBACTAM SOD INJ 1,500 MG in SODIUM CHLORIDE 0.9% 100ML 100 ML IV SCH ×4 (03:51→21:48)
[2017-01-13] MEDS: HEPARIN SOD 5000 UNIT/0.5 ML CARP SQ SCH ×3 (06:00→21:49)
[2017-01-13 07:05] LABS: BASO % 0.2 %; BASO ABS # 0.01 K/uL (0-0.2); COMPLETE YES; EOS % 4.8 %; HEMATOCRIT 32.3 % (42-52); LYMPH % 24.1 %; MEAN CELL VOLUME 86.4 fL (80-100); MEAN CORPUSCULAR HGB CONC 31.3 g/dl (32-36); MEAN PLATELET VOLUME 8.8 fL (7.4-10.4); MONO % 7.5 %; NEUT % 63.4 %; PLATELET COUNT 234 K/uL (130-400); RED BLOOD COUNT 3.74 M/uL (4.7-6.1); WHITE BLOOD COUNT 4.56 K/uL (4.8-10.8)
[2017-01-13] MEDS: LISINOPRIL 10 MG TAB PO SCH (07:34)
[2017-01-13 07:45] VITALS: BP 158/80; PULSE 48; TEMP 36.7; O2SAT 98
[2017-01-13 15:34] VITALS: BP 155/88; PULSE 51; TEMP 36.4; O2SAT 98
--- NOTE | 2017-01-13 17:23 | Infectious Disease Progress Nt ---
Progress Note Date of Service Jan 13, 2017. Subjective Pt evaluation today including: conversation w/ patient, physical exam, chart review, lab review, review of studies, review of inpatient medication list The patient's white blood cell count today was 4.56. His hemoglobin was 10.1. His AST was 10, ALT 12, and alk-phos 111. Wound image from yesterday was reviewed by myself. He has had no other imaging studies. No new micro. The patient continues on IV Unasyn. He is tolerating this antibiotic well. He states that he is feeling slightly better today. He did get up and walk to the bathroom himself. He continues to note weakness and fatigue from baseline. He reports little pain in the right lower extremity today. All Other Systems: Reviewed and Negative Medications Current Inpatient Medications Medications (Trade) Dose Ordered Sig/Marilyn Route Start Time Stop Time Status Last Admin Dose Admin Acetaminophen (Tylenol Tab) 650 mg Q4H PRN PO 01/03/17 05:15 02/02/17 05:14 Ondansetron HCl (Zofran Inj) 4 mg Q6H PRN IV 01/03/17 05:15 02/02/17 05:14 01/12/17 19:37 4 MG Miscellaneous (Iv Fluids Completed) 1 ea PRN PRN N/A 01/03/17 05:45 01/03/18 05:44 Clonidine HCl (Catapres Tab) 0.1 mg Q6H PRN PO 01/03/17 09:15 02/02/17 09:14 01/12/17 16:06 0.1 MG Lisinopril (Zestril Tab) 10 mg QAM PO 01/06/17 08:00 02/05/17 07:59 01/13/17 07:34 10 MG Heparin Sodium (Porcine) (Heparin Sq 5000 Unit/0.5ml) 5,000 unit Q8 SQ 01/05/17 22:00 02/04/17 21:59 Tramadol HCl (Ultram Tab) not relieved by tylenol @ Q6H PRN PO 01/06/17 05:15 02/05/17 05:14 01/07/17 09:14 50 MG Morphine Sulfate (MoRPHine SULFATE INJ) 4 mg Q6H PRN IV 01/06/17 00:30 01/20/17 00:29 01/07/17 10:38 4 MG Al Hydrox/Mg Hydrox/Simethicone (Maalox Max Susp) 30 ml Q6H PRN PO 01/07/17 09:45 02/06/17 09:44 Hydromorphone HCl 1 mg 1 mg Q2H PRN IV 01/07/17 20:00 01/21/17 19:59 01/12/17 19:35 1 MG Ampicillin Sodium/ Sulbactam Sodium/ Sodium Chloride (Unasyn Inj/Nss 100ml) 104 ml @ 200 mls/hr Q6H IV 01/10/17 16:00 01/14/17 23:59 01/13/17 15:51 200 MLS/HR Objective Vital Signs Date Time Temp Pulse Resp B/P Pulse Ox O2 Delivery O2 Flow Rate FiO2 01/13/17 16:00 Room Air 01/13/17 15:34 36.4 51 20 155/88 98 Room Air 01/13/17 08:00 Room Air 01/13/17 07:45 36.7 48 18 158/80 98 Room Air 01/13/17 00:00 Room Air 01/12/17 23:57 36.4 55 18 122/73 98 Room Air Physical Exam General Appearance: WD/WN, no apparent distress Eyes: normal inspection, sclerae normal ENT: hearing grossly normal Neck: supple, trachea midline Respiratory/Chest: no respiratory distress, no accessory muscle use Cardiovascular: regular rate, rhythm Extremities: + swelling (Chronic lymphedema), + pertinent finding (Slight improvement.) Skin: + pertinent finding (Patient continues to have large, open, macerated wounds of the right lower extremity. There are areas of improvement where aqua kia was yesterday.) Laboratory Results Last 24 Hours Test 01/13/17 06:55 White Blood Count 4.56 K/uL Red Blood Count 3.74 M/uL Hemoglobin 10.1 g/dL Hematocrit 32.3 % Mean Corpuscular Volume 86.4 fL Mean Corpuscular Hemoglobin 27.0 pg Mean Corpuscular Hemoglobin Concent 31.3 g/dl Platelet Count 234 K/uL Mean Platelet Volume 8.8 fL Neutrophils (%) (Auto) 63.4 % Lymphocytes (%) (Auto) 24.1 % Monocytes (%) (Auto) 7.5 % Eosinophils (%) (Auto) 4.8 % Basophils (%) (Auto) 0.2 % Neutrophils # (Auto) 2.89 K/uL Lymphocytes # (Auto) 1.10 K/uL Monocytes # (Auto) 0.34 K/uL Eosinophils # (Auto) 0.22 K/uL Basophils # (Auto) 0.01 K/uL RDW Standard Deviation 47.2 fL RDW Coefficient of Variation 14.8 % Immature Granulocyte % (Auto) 0.0 % Immature Granulocyte # (Auto) 0.00 K/uL Assessment and Plan Patient with chronic lymphedema and wound infection with surrounding cellulitis of the right lower extremity. He is currently on IV Unasyn, and likely this patient will need a few more days due to continued maceration of the right lower extremity. He refuses to take PO abx upon discharge and likely would not be accepted at rehab for continued therapy either. Had a discussion with the patient, and feel that he would benefit from Aquacel Ag on the rest of his wounds as well. He reluctantly agreed, but was unsure whether not he would actually do this later. We will continue to follow this patient. He likely will need antibiotics through the weekend. PROVIDER ADDENDUM: Patient examined and reviewed with Ms. Agustin. Agree with above assessment.
--- NOTE | 2017-01-13 17:48 | Progress Note ---
Internal Med Progress Note Date of Service: Jan 13, 2017. Provider Documentation: SUBJECTIVE: The patient was seen and examined Has been getting Physical Therapy Wound is not yet healed Will need a few more days No complaints OBJECTIVE: Vital Signs-as noted below Exam: General-No distress at rest Eyes-normal ENT-normal Neck-supple Lungs-clear to auscultate bilaterally Heart-regular Abdomen-Benign,no masses,bowel sound present Extremities-Bilateral leg edema,chronic with Lymphedema and ulceration Right more than the left Multiple ulcerations with discharges -much better Neuro-AAOx3 Lab data as noted below. ASSESSMENT & PLAN: Right Lower Leg Ulcers, Cellulitis-recurrent Chronic Right Lower Extremity Edema/Lymphedema Chronic Skin changes - wound cultures: Enterobacter, staph, corynebacterium - blood cultures negative - on Zosyn Day 5 -ID consulted and appreciate input - Wound care consult on board -Antibiotic has been changed to Unasyn from 01/10/17 -likely to continue IV antibiotic till wound is reasonably better -Course of antibiotic needs to be finished -needs to stay a few more days in hospital -likely discharge on Monday if clinically stable Acute Pancreatitis - CT abdomen noted; (+) CBD and hepatic duct dilatation - may have passed a stone, cannot rule out pancreatic mass or stricture - given aggressive IV fluids and made NPO - Lipase level improved from 4900 to 2000--> normal today 300s - decreased IV fluids -Tolerating advanced diet -GI consulted, patient declining MRCP at this time -no more symptoms Fall secondary to lethargy -likely secondary to dehydration,hypotension and infection - presenting chief complaint at the ER -CT head: negative - blood cultures: negative -getting PT/OT -ambulating well Hypertension, elevated secondary to noncompliance - increased Lisinopril to 10mg daily -remains on higher side hx testicular CA sp surgery Chronic anemia, hg at baseline H/O DVT as per records, px off anticoag 2 to homelessness Schizophrenia as per records No acute symptoms DVT prophylaxis Heparin Disposition Likely discharge in 2-3 days Vital Signs: Date Time Temp Pulse Resp B/P Pulse Ox O2 Delivery O2 Flow Rate FiO2 01/13/17 16:00 Room Air 01/13/17 15:34 36.4 51 20 155/88 98 Room Air 01/13/17 08:00 Room Air 01/13/17 07:45 36.7 48 18 158/80 98 Room Air 01/13/17 00:00 Room Air 01/12/17 23:57 36.4 55 18 122/73 98 Room Air Lab Results: Results Past 24 Hours Test 01/13/17 06:55 Range/Units White Blood Count 4.56 4.8-10.8 K/uL Red Blood Count 3.74 4.7-6.1 M/uL Hemoglobin 10.1 14.0-18.0 g/dL Hematocrit 32.3 42-52 % Mean Corpuscular Volume 86.4 80-100 fL Mean Corpuscular Hemoglobin 27.0 25-34 pg Mean Corpuscular Hemoglobin Concent 31.3 32-36 g/dl Platelet Count 234 130-400 K/uL Mean Platelet Volume 8.8 7.4-10.4 fL Neutrophils (%) (Auto) 63.4 % Lymphocytes (%) (Auto) 24.1 % Monocytes (%) (Auto) 7.5 % Eosinophils (%) (Auto) 4.8 % Basophils (%) (Auto) 0.2 % Neutrophils # (Auto) 2.89 1.4-6.5 K/uL Lymphocytes # (Auto) 1.10 1.2-3.4 K/uL Monocytes # (Auto) 0.34 0.11-0.59 K/uL Eosinophils # (Auto) 0.22 0-0.5 K/uL Basophils # (Auto) 0.01 0-0.2 K/uL RDW Standard Deviation 47.2 36.4-46.3 fL RDW Coefficient of Variation 14.8 11.5-14.5 % Immature Granulocyte % (Auto) 0.0 % Immature Granulocyte # (Auto) 0.00 0.00-0.02 K/uL
[2017-01-13] MEDS: HYDROmorphone INJ 1 MG/ML SYR IV PRN (19:23)
[2017-01-13 23:10] VITALS: BP 151/91; PULSE 49; TEMP 36.7; O2SAT 98
[2017-01-14] MEDS: HYDROmorphone INJ 1 MG/ML SYR IV PRN ×3 (00:21→15:51)
[2017-01-14] MEDS: ONDANSETRON INJ 2 MG/ML 2 ML VIAL IV PRN ×2 (02:51→15:31)
[2017-01-14] MEDS: AMPICILLIN/SULBACTAM SOD INJ 1,500 MG in SODIUM CHLORIDE 0.9% 100ML 100 ML IV SCH ×4 (03:31→21:59)
[2017-01-14] MEDS: HEPARIN SOD 5000 UNIT/0.5 ML CARP SQ SCH ×3 (05:55→21:59)
[2017-01-14 07:39] VITALS: BP 150/84; PULSE 50; TEMP 36.6; O2SAT 98
[2017-01-14] MEDS: LISINOPRIL 10 MG TAB PO SCH (07:46)
--- NOTE | 2017-01-14 15:03 | Progress Note ---
Internal Med Progress Note Date of Service: Jan 14, 2017. Provider Documentation: SUBJECTIVE: The patient was seen and examined Has been getting Physical Therapy Wound is not yet healed Will need a few more days No complaints Ambulating without much difficulty OBJECTIVE: Vital Signs-as noted below Exam: General-No distress at rest Eyes-normal ENT-normal Neck-supple Lungs-clear to auscultate bilaterally Heart-regular Abdomen-Benign,no masses,bowel sound present Extremities-Bilateral leg edema,chronic with Lymphedema and ulceration Right more than the left Multiple ulcerations with discharges -much better Neuro-AAOx3 Lab data as noted below. ASSESSMENT & PLAN: Right Lower Leg Ulcers, Cellulitis-recurrent Chronic Right Lower Extremity Edema/Lymphedema Chronic Skin changes - wound cultures: Enterobacter, staph, corynebacterium - blood cultures negative - on Zosyn Day 5 -ID consulted and appreciate input - Wound care consult on board -Antibiotic has been changed to Unasyn from 01/10/17 -likely to continue IV antibiotic till wound is reasonably better -Course of antibiotic needs to be finished -needs to stay a few more days in hospital -likely discharge on Monday if clinically stable Acute Pancreatitis - CT abdomen noted; (+) CBD and hepatic duct dilatation - may have passed a stone, cannot rule out pancreatic mass or stricture - given aggressive IV fluids and made NPO - Lipase level improved from 4900 to 2000--> normal today 300s - decreased IV fluids -Tolerating advanced diet -GI consulted, patient declining MRCP at this time -no more symptoms Fall secondary to lethargy -likely secondary to dehydration,hypotension and infection - presenting chief complaint at the ER -CT head: negative - blood cultures: negative -getting PT/OT -ambulating well without any difficulty Hypertension, elevated secondary to noncompliance - increased Lisinopril to 10mg daily -remains on higher side hx testicular CA sp surgery Chronic anemia, hg at baseline H/O DVT as per records, px off anticoag 2 to homelessness Schizophrenia as per records No acute symptoms DVT prophylaxis Heparin Disposition Likely discharge on Monday Vital Signs: Date Time Temp Pulse Resp B/P Pulse Ox O2 Delivery O2 Flow Rate FiO2 01/14/17 08:00 Room Air 01/14/17 07:39 36.6 50 18 150/84 98 Room Air 01/14/17 00:30 Room Air 01/13/17 23:10 36.7 49 20 151/91 98 Room Air 01/13/17 16:00 Room Air 01/13/17 15:34 36.4 51 20 155/88 98 Room Air
[2017-01-14 15:23] VITALS: BP 156/82; PULSE 52; TEMP 36.7; O2SAT 96
[2017-01-14] MEDS ORDERED: PROMETHAZINE HCL INJ 12.5 MG in SODIUM CHLORIDE 0.9% 50ML 50 ML IV SCH (18:00)
[2017-01-14 23:57] VITALS: BP 150/89; PULSE 50; TEMP 36.9; O2SAT 100
[2017-01-15] MEDS: HEPARIN SOD 5000 UNIT/0.5 ML CARP SQ SCH ×3 (06:00→20:00)
[2017-01-15 07:30] VITALS: BP 156/84; PULSE 53; TEMP 36.5; O2SAT 97
[2017-01-15] MEDS: LISINOPRIL 10 MG TAB PO SCH (08:35)
--- NOTE | 2017-01-15 14:30 | Progress Note ---
Internal Med Progress Note Date of Service: Jan 15, 2017. Provider Documentation: SUBJECTIVE: The patient was seen and examined Has been getting Physical Therapy Wound is not yet healed Has had abdominal pain with vomiting last evening No more episode OBJECTIVE: Vital Signs-as noted below Exam: General-No distress at rest Eyes-normal ENT-normal Neck-supple Lungs-clear to auscultate bilaterally Heart-regular Abdomen-Benign,no masses,bowel sound present Extremities-Bilateral leg edema,chronic with Lymphedema and ulceration Right more than the left Multiple ulcerations with discharges -much better Neuro-AAOx3 Lab data as noted below. ASSESSMENT & PLAN: Right Lower Leg Ulcers, Cellulitis-recurrent Chronic Right Lower Extremity Edema/Lymphedema Chronic Skin changes - wound cultures: Enterobacter, staph, corynebacterium - blood cultures negative - on Zosyn Day 5 -ID consulted and appreciate input - Wound care consult on board -Antibiotic has been changed to Unasyn from 01/10/17 -likely to continue IV antibiotic till wound is reasonably better -Course of antibiotic needs to be finished -needs to stay a few more days in hospital -likely discharge on Monday if clinically stable -no new symptoms Acute Pancreatitis - CT abdomen noted; (+) CBD and hepatic duct dilatation - may have passed a stone, cannot rule out pancreatic mass or stricture - given aggressive IV fluids and made NPO - Lipase level improved from 4900 to 2000--> normal today 300s - decreased IV fluids -Tolerating advanced diet -GI consulted, patient declining MRCP at this time -has had nausea with vomiting last evenign will get Lipase level in AM Fall secondary to lethargy -likely secondary to dehydration,hypotension and infection - presenting chief complaint at the ER -CT head: negative - blood cultures: negative -getting PT/OT -ambulating well without any difficulty Hypertension, elevated secondary to noncompliance - increased Lisinopril to 10mg daily -remains on higher side -will increase Lisinopril hx testicular CA sp surgery Chronic anemia, hg at baseline H/O DVT as per records, px off anticoag 2 to homelessness Schizophrenia as per records No acute symptoms DVT prophylaxis Heparin Disposition Likely discharge on Monday Vital Signs: Date Time Temp Pulse Resp B/P Pulse Ox O2 Delivery O2 Flow Rate FiO2 01/15/17 07:30 36.5 53 16 156/84 97 Room Air 01/15/17 06:45 Room Air 01/14/17 23:57 36.9 50 18 150/89 100 Room Air 01/14/17 23:00 Room Air 01/14/17 16:00 Room Air 01/14/17 15:23 36.7 52 20 156/82 96 Room Air
[2017-01-15 15:37] VITALS: BP 151/87; PULSE 51; TEMP 36.5; O2SAT 98
[2017-01-15] MEDS: ONDANSETRON INJ 2 MG/ML 2 ML VIAL IV PRN (19:31)
[2017-01-15] MEDS: PROMETHAZINE HCL INJ 12.5 MG in SODIUM CHLORIDE 0.9% 50ML 50 ML IV PRN (20:45)
[2017-01-15] MEDS: HYDROmorphone INJ 1 MG/ML SYR IV PRN (20:54)
[2017-01-16 00:12] VITALS: BP 123/70; PULSE 56; TEMP 36.5; O2SAT 97
[2017-01-16] MEDS: HYDROmorphone INJ 1 MG/ML SYR IV PRN ×2 (01:51→22:14)
[2017-01-16] MEDS: HEPARIN SOD 5000 UNIT/0.5 ML CARP SQ SCH ×3 (04:52→22:00)
[2017-01-16 07:25] VITALS: BP 125/71; PULSE 51; TEMP 36.4; O2SAT 98
[2017-01-16 07:44] LABS: BASO % 0.2 %; BASO ABS # 0.01 K/uL (0-0.2); COMPLETE YES; EOS % 1.7 %; HEMATOCRIT 33.2 % (42-52); IG% 0.2 %; LYMPH ABS # 1.09 K/uL (1.2-3.4); MEAN CELL VOLUME 84.7 fL (80-100); MEAN CORPUSCULAR HGB CONC 31.9 g/dl (32-36); MEAN PLATELET VOLUME 8.7 fL (7.4-10.4); MONO % 7.5 %; NEUT % 73.4 %; PLATELET COUNT 252 K/uL (130-400); RED BLOOD COUNT 3.92 M/uL (4.7-6.1); WHITE BLOOD COUNT 6.43 K/uL (4.8-10.8)
[2017-01-16] MEDS: LISINOPRIL 10 MG TAB PO SCH (08:15)
[2017-01-16 08:19] LABS: BUN/CREATININE RATIO 14.7 (10-20); CALCIUM 8.5 mg/dl (8.5-10.1); CREATININE 1.1 mg/dl (0.60-1.40); MAGNESIUM 2.4 mg/dl (1.8-2.4); PHOSPHORUS 2.9 mg/dl (2.5-4.9); POTASSIUM 3.6 mmol/L (3.5-5.1)
--- NOTE | 2017-01-16 13:03 | Infectious Disease Progress Nt ---
Progress Note Date of Service Jan 16, 2017. Subjective Pt evaluation today including: conversation w/ patient, physical exam, chart review, lab review, review of studies, conversation w/ professional benefits sales consultant (Dr Gonzalez), review of inpatient medication list WBC count this morning was 6.43. Creatinine is 1.10. Lipase noted to be 720 today. The patient did have more vomiting today. His antibiotics were discontinued. Patient continued to refuse Aquacel on his wound over the weekend. All Other Systems: Reviewed and Negative Medications Current Inpatient Medications Medications (Trade) Dose Ordered Sig/Marilyn Route Start Time Stop Time Status Last Admin Dose Admin Acetaminophen (Tylenol Tab) 650 mg Q4H PRN PO 01/03/17 05:15 02/02/17 05:14 Ondansetron HCl (Zofran Inj) 4 mg Q6H PRN IV 01/03/17 05:15 02/02/17 05:14 01/15/17 19:31 4 MG Miscellaneous (Iv Fluids Completed) 1 ea PRN PRN N/A 01/03/17 05:45 01/03/18 05:44 Clonidine HCl (Catapres Tab) 0.1 mg Q6H PRN PO 01/03/17 09:15 02/02/17 09:14 01/12/17 16:06 0.1 MG Lisinopril (Zestril Tab) 10 mg QAM PO 01/06/17 08:00 02/05/17 07:59 01/16/17 08:15 10 MG Heparin Sodium (Porcine) (Heparin Sq 5000 Unit/0.5ml) 5,000 unit Q8 SQ 01/05/17 22:00 02/04/17 21:59 Tramadol HCl (Ultram Tab) not relieved by tylenol @ Q6H PRN PO 01/06/17 05:15 02/05/17 05:14 01/07/17 09:14 50 MG Morphine Sulfate (MoRPHine SULFATE INJ) 4 mg Q6H PRN IV 01/06/17 00:30 01/20/17 00:29 01/07/17 10:38 4 MG Al Hydrox/Mg Hydrox/Simethicone (Maalox Max Susp) 30 ml Q6H PRN PO 01/07/17 09:45 02/06/17 09:44 Hydromorphone HCl 1 mg 1 mg Q2H PRN IV 01/07/17 20:00 01/21/17 19:59 01/16/17 01:51 1 MG Promethazine HCl 12.5 mg/Sodium Chloride 50.5 ml @ 204 mls/hr Q6H PRN IV 01/14/17 18:00 02/13/17 17:59 01/15/17 20:45 204 MLS/HR Ampicillin Sodium/ Sulbactam Sodium/ Sodium Chloride (Unasyn Inj/Nss 100ml) 104 ml @ 200 mls/hr Q6@0200,0800,1400,2000 IV 01/16/17 14:00 01/26/17 13:59 Objective Vital Signs Date Time Temp Pulse Resp B/P Pulse Ox O2 Delivery O2 Flow Rate FiO2 01/16/17 08:00 Room Air 01/16/17 07:25 36.4 51 18 125/71 98 Room Air 01/16/17 00:23 Room Air 01/16/17 00:12 36.5 56 18 123/70 97 Room Air 01/15/17 21:05 Room Air 01/15/17 16:00 Room Air 01/15/17 15:37 36.5 51 20 151/87 98 Room Air Physical Exam General Appearance: WD/WN, no apparent distress Eyes: normal inspection, sclerae normal ENT: hearing grossly normal Neck: supple, trachea midline Respiratory/Chest: no respiratory distress, no accessory muscle use Cardiovascular: regular rate, rhythm Extremities: + pertinent finding (Chronic lymphedema changes RLE) Neurologic/Psychiatric: alert, normal mood/affect Skin: + pertinent finding (Continued mild biofilm on the patient's RLE wounds. Mild surrounding erythema) Laboratory Results Last 24 Hours Test 01/16/17 07:26 01/16/17 07:28 White Blood Count 6.43 K/uL Red Blood Count 3.92 M/uL Hemoglobin 10.6 g/dL Hematocrit 33.2 % Mean Corpuscular Volume 84.7 fL Mean Corpuscular Hemoglobin 27.0 pg Mean Corpuscular Hemoglobin Concent 31.9 g/dl Platelet Count 252 K/uL Mean Platelet Volume 8.7 fL Neutrophils (%) (Auto) 73.4 % Lymphocytes (%) (Auto) 17.0 % Monocytes (%) (Auto) 7.5 % Eosinophils (%) (Auto) 1.7 % Basophils (%) (Auto) 0.2 % Neutrophils # (Auto) 4.73 K/uL Lymphocytes # (Auto) 1.09 K/uL Monocytes # (Auto) 0.48 K/uL Eosinophils # (Auto) 0.11 K/uL Basophils # (Auto) 0.01 K/uL RDW Standard Deviation 46.5 fL RDW Coefficient of Variation 14.8 % Immature Granulocyte % (Auto) 0.2 % Immature Granulocyte # (Auto) 0.01 K/uL Sodium Level 138 mmol/L Potassium Level 3.6 mmol/L Chloride Level 105 mmol/L Carbon Dioxide Level 26 mmol/L Anion Gap 7.0 mmol/L Blood Urea Nitrogen 16 mg/dl Creatinine 1.10 mg/dl Est Creatinine Clear Calc Drug Dose 65.6 ml/min Estimated GFR () 81.8 Estimated GFR (Non- 70.6 BUN/Creatinine Ratio 14.7 Random Glucose 107 mg/dl Calcium Level 8.5 mg/dl Phosphorus Level 2.9 mg/dl Magnesium Level 2.4 mg/dl Lipase 720 U/L Assessment and Plan Patient with chronic lymphedema and wound infection with surrounding cellulitis of the right lower extremity. He is currently on IV Unasyn, and likely this patient will need a few more days due to continued maceration of the right lower extremity. He refuses to take PO abx upon discharge and likely would not be accepted at rehab for continued therapy either. Antibiotics were prematurely stopped over the weekend. Will restart while patient is in-house. PROVIDER ADDENDUM: Patient reviewed with Ms. Agustin. Agree with above assessment.
[2017-01-16] MEDS: AMPICILLIN/SULBACTAM SOD INJ 1,500 MG in SODIUM CHLORIDE 0.9% 100ML 100 ML IV SCH ×2 (14:20→20:18)
[2017-01-16 16:48] VITALS: BP 131/74; PULSE 50; TEMP 36.6; O2SAT 98
--- NOTE | 2017-01-16 16:49 | Progress Note ---
Internal Med Progress Note Date of Service: Jan 16, 2017. Provider Documentation: SUBJECTIVE: The patient was seen and examined Has been getting Physical Therapy Wound is not yet healed Has had abdominal pain with vomiting last evening Lipase is elevated OBJECTIVE: Vital Signs-as noted below Exam: General-No distress at rest Eyes-normal ENT-normal Neck-supple Lungs-clear to auscultate bilaterally Heart-regular Abdomen-Benign,mildly tender epigastrium,no masses,bowel sound present Extremities-Bilateral leg edema,chronic with Lymphedema and ulceration Right more than the left Multiple ulcerations with discharges -much better Neuro-AAOx3 Lab data as noted below. ASSESSMENT & PLAN: Recurrent Acute Pancreatitis - CT abdomen noted; (+) CBD and hepatic duct dilatation - may have passed a stone, cannot rule out pancreatic mass or stricture - given aggressive IV fluids and made NPO - Lipase level improved from 4900 to 2000--> normal today 300s - decreased IV fluids -Tolerating advanced diet -GI consulted, patient declining MRCP at this time -has had nausea with vomiting last evenigng -lipase elevated -will monitor -Not yet ready to be discharged Right Lower Leg Ulcers, Cellulitis-recurrent Chronic Right Lower Extremity Edema/Lymphedema Chronic Skin changes - wound cultures: Enterobacter, staph, corynebacterium - blood cultures negative - on Zosyn Day 5 -ID consulted and appreciate input - Wound care consult on board -Antibiotic has been changed to Unasyn from 01/10/17 -likely to continue IV antibiotic till wound is reasonably better -Course of antibiotic needs to be finished -needs to stay a few more days in hospital -Did not get any antibiotic over the WE -restarted -will need a few more days Fall secondary to lethargy -likely secondary to dehydration,hypotension and infection - presenting chief complaint at the ER -CT head: negative - blood cultures: negative -getting PT/OT -ambulating well without any difficulty Hypertension, elevated secondary to noncompliance - increased Lisinopril to 10mg daily -remains on higher side -will increase Lisinopril hx testicular CA sp surgery Chronic anemia, hg at baseline H/O DVT as per records, px off anticoag 2 to homelessness Schizophrenia as per records No acute symptoms DVT prophylaxis Heparin Disposition Likely discharge on Monday Vital Signs: Date Time Temp Pulse Resp B/P Pulse Ox O2 Delivery O2 Flow Rate FiO2 01/16/17 08:00 Room Air 01/16/17 07:25 36.4 51 18 125/71 98 Room Air 01/16/17 00:23 Room Air 01/16/17 00:12 36.5 56 18 123/70 97 Room Air 01/15/17 21:05 Room Air Lab Results: Results Past 24 Hours Test 01/16/17 07:26 01/16/17 07:28 Range/Units White Blood Count 6.43 4.8-10.8 K/uL Red Blood Count 3.92 4.7-6.1 M/uL Hemoglobin 10.6 14.0-18.0 g/dL Hematocrit 33.2 42-52 % Mean Corpuscular Volume 84.7 80-100 fL Mean Corpuscular Hemoglobin 27.0 25-34 pg Mean Corpuscular Hemoglobin Concent 31.9 32-36 g/dl Platelet Count 252 130-400 K/uL Mean Platelet Volume 8.7 7.4-10.4 fL Neutrophils (%) (Auto) 73.4 % Lymphocytes (%) (Auto) 17.0 % Monocytes (%) (Auto) 7.5 % Eosinophils (%) (Auto) 1.7 % Basophils (%) (Auto) 0.2 % Neutrophils # (Auto) 4.73 1.4-6.5 K/uL Lymphocytes # (Auto) 1.09 1.2-3.4 K/uL Monocytes # (Auto) 0.48 0.11-0.59 K/uL Eosinophils # (Auto) 0.11 0-0.5 K/uL Basophils # (Auto) 0.01 0-0.2 K/uL RDW Standard Deviation 46.5 36.4-46.3 fL RDW Coefficient of Variation 14.8 11.5-14.5 % Immature Granulocyte % (Auto) 0.2 % Immature Granulocyte # (Auto) 0.01 0.00-0.02 K/uL Sodium Level 138 136-145 mmol/L Potassium Level 3.6 3.5-5.1 mmol/L Chloride Level 105 98-107 mmol/L Carbon Dioxide Level 26 21-32 mmol/L Anion Gap 7.0 3-11 mmol/L Blood Urea Nitrogen 16 7-18 mg/dl Creatinine 1.10 0.60-1.40 mg/dl Est Creatinine Clear Calc Drug Dose 65.6 ml/min Estimated GFR () 81.8 Estimated GFR (Non- 70.6 BUN/Creatinine Ratio 14.7 10-20 Random Glucose 107 70-99 mg/dl Calcium Level 8.5 8.5-10.1 mg/dl Phosphorus Level 2.9 2.5-4.9 mg/dl Magnesium Level 2.4 1.8-2.4 mg/dl Lipase 720 73-393 U/L
[2017-01-17] VITALS: BP 112/68; PULSE 56; TEMP 36.9; O2SAT 98
[2017-01-17] MEDS: AMPICILLIN/SULBACTAM SOD INJ 1,500 MG in SODIUM CHLORIDE 0.9% 100ML 100 ML IV SCH ×4 (02:01→19:52)
[2017-01-17] MEDS: HEPARIN SOD 5000 UNIT/0.5 ML CARP SQ SCH ×3 (05:41→22:41)
[2017-01-17 07:51] VITALS: BP 130/84; PULSE 56; TEMP 36.4; O2SAT 98
[2017-01-17] MEDS: LISINOPRIL 10 MG TAB PO SCH (08:09)
--- NOTE | 2017-01-17 14:02 | Infectious Disease Progress Nt ---
Progress Note Date of Service Jan 17, 2017. Subjective Pt evaluation today including: conversation w/ patient, physical exam, chart review, lab review, review of studies, conversation w/ healthcare consultant (Dr. Gonzalez), review of inpatient medication list Lipase today is elevated to 773. The patient states that his stomach continues to be upset this morning. He has not had any continued vomiting. He did put some Aquacel on a small portion of his wound last night, but did not cover the wounds with it. He has had minimal pain in his right leg. All Other Systems: Reviewed and Negative Medications Current Inpatient Medications Medications (Trade) Dose Ordered Sig/Marilyn Route Start Time Stop Time Status Last Admin Dose Admin Acetaminophen (Tylenol Tab) 650 mg Q4H PRN PO 01/03/17 05:15 02/02/17 05:14 Ondansetron HCl (Zofran Inj) 4 mg Q6H PRN IV 01/03/17 05:15 02/02/17 05:14 01/15/17 19:31 4 MG Miscellaneous (Iv Fluids Completed) 1 ea PRN PRN N/A 01/03/17 05:45 01/03/18 05:44 Clonidine HCl (Catapres Tab) 0.1 mg Q6H PRN PO 01/03/17 09:15 02/02/17 09:14 01/12/17 16:06 0.1 MG Lisinopril (Zestril Tab) 10 mg QAM PO 01/06/17 08:00 02/05/17 07:59 01/17/17 08:09 10 MG Heparin Sodium (Porcine) (Heparin Sq 5000 Unit/0.5ml) 5,000 unit Q8 SQ 01/05/17 22:00 02/04/17 21:59 Tramadol HCl (Ultram Tab) not relieved by tylenol @ Q6H PRN PO 01/06/17 05:15 02/05/17 05:14 01/07/17 09:14 50 MG Morphine Sulfate (MoRPHine SULFATE INJ) 4 mg Q6H PRN IV 01/06/17 00:30 01/20/17 00:29 01/07/17 10:38 4 MG Al Hydrox/Mg Hydrox/Simethicone (Maalox Max Susp) 30 ml Q6H PRN PO 01/07/17 09:45 02/06/17 09:44 Hydromorphone HCl 1 mg 1 mg Q2H PRN IV 01/07/17 20:00 01/21/17 19:59 01/16/17 22:14 1 MG Promethazine HCl 12.5 mg/Sodium Chloride 50.5 ml @ 204 mls/hr Q6H PRN IV 01/14/17 18:00 02/13/17 17:59 01/15/17 20:45 204 MLS/HR Ampicillin Sodium/ Sulbactam Sodium/ Sodium Chloride (Unasyn Inj/Nss 100ml) 104 ml @ 200 mls/hr Q6@0200,0800,1400,2000 IV 01/16/17 14:00 01/26/17 13:59 01/17/17 08:08 200 MLS/HR Objective Vital Signs Date Time Temp Pulse Resp B/P Pulse Ox O2 Delivery O2 Flow Rate FiO2 01/17/17 08:00 Room Air 01/17/17 07:51 36.4 56 16 130/84 98 Room Air 01/17/17 00:22 Room Air 01/17/17 00:00 36.9 56 20 112/68 98 Room Air 01/16/17 16:48 36.6 50 18 131/74 98 Room Air 01/16/17 16:00 Room Air Physical Exam General Appearance: WD/WN, no apparent distress Eyes: normal inspection, sclerae normal ENT: hearing grossly normal Neck: supple, trachea midline Respiratory/Chest: no respiratory distress, no accessory muscle use Cardiovascular: regular rate, rhythm Extremities: + pertinent finding (continued chronic changes of the right lower extremity) Neurologic/Psychiatric: alert, normal mood/affect Skin: + pertinent finding (continued open ulceration of the right lower extremity with biofilm in most wounds. Area with Aquacel improved compared to others. Still with mild erythema surrounding the wounds. ) Laboratory Results Last 24 Hours Test 01/17/17 12:05 Lipase 773 U/L Assessment and Plan Patient with chronic lymphedema and wound infection with surrounding cellulitis of the right lower extremity. He is currently on IV Unasyn. His leg has very mildly improved, but continues to have wound changes that are concerning. He refuses to take PO abx upon discharge. Recommend at least 1 more day of IV therapy, but would continue while in house. With patient's Lipase increasing, anticipate he will not be discharged today or tomorrow regardless. We will follow. PROVIDER ADDENDUM: Patient reviewed with Ms. Agustin. Agree with above assessment.
[2017-01-17 14:58] VITALS: BP 161/97; PULSE 85; TEMP 36.2; O2SAT 98
--- NOTE | 2017-01-17 19:07 | Progress Note ---
Medicine Progress Note Date & Time of Visit: Jan 17, 2017 at 19:00. Subjective Pt was seen and examined Sitting in bed comfortable with no discharge Pt said that he is feeling much better today he said that he tolerates clear liquid diet he would like to try to eat some regular food. denies any chest pain, palpitation, n/v Objective Last 8 Hrs Date Time Temp Pulse Resp B/P Pulse Ox O2 Delivery O2 Flow Rate FiO2 01/17/17 16:00 Room Air 01/17/17 14:58 36.2 85 20 161/97 98 Room Air Physical Exam: General- no acute distress Head- atraumatic Eyes- PERRL, EOMI ENT- oropharynx clear Neck- supple, no JVD Lungs- clear to auscultation and percussion Heart- regular rhythm; no murmur Abdomen- normal bowel sounds, soft Extremities- +edema, no calf tenderness Neuro- alert, oriented x 3; PERRL, EOMI Skin- warm & dry Laboratory Results: Last 24 Hours Test 01/17/17 12:05 Lipase 773 U/L Assessment & Plan Recurrent Acute Pancreatitis - CT abdomen noted; (+) CBD and hepatic duct dilatation - may have passed a stone, cannot rule out pancreatic mass or stricture - given aggressive IV fluids and made NPO - Lipase level improved from 4900 to 2000--> normal today 300s - decreased IV fluids -GI consulted, patient declining MRCP at this time -has had nausea with vomiting last evenigng -lipase continue to elevate - Tolerated clear liquid diet, will advanced to full liquid as tolerated Right Lower Leg Ulcers, Cellulitis-recurrent Chronic Right Lower Extremity Edema/Lymphedema Chronic Skin changes - wound cultures: Enterobacter, staph, corynebacterium - blood cultures negative - on Zosyn Day 5 -ID consulted and appreciate input - Wound care consult on board -Antibiotic has been changed to Unasyn from 01/10/17 -likely to continue IV antibiotic till wound is reasonably better -Course of antibiotic needs to be finished -needs to stay a few more days in hospital -Did not get any antibiotic over the WE -Will continue IV abx while inpatient since pt will not take abx once discharge Fall secondary to lethargy -likely secondary to dehydration,hypotension and infection - presenting chief complaint at the ER -CT head: negative - blood cultures: negative -getting PT/OT -ambulating well without any difficulty Hypertension, elevated secondary to noncompliance - increased Lisinopril to 10mg daily -remains on higher side -will increase Lisinopril hx testicular CA sp surgery Chronic anemia, hg at baseline H/O DVT as per records, px off anticoag 2 to homelessness Schizophrenia as per records No acute symptoms DVT prophylaxis Heparin Current Inpatient Medications: Current Inpatient Medications Medications (Trade) Dose Ordered Sig/Marilyn Route Start Time Stop Time Status Last Admin Dose Admin Acetaminophen (Tylenol Tab) 650 mg Q4H PRN PO 01/03/17 05:15 02/02/17 05:14 Ondansetron HCl (Zofran Inj) 4 mg Q6H PRN IV 01/03/17 05:15 02/02/17 05:14 01/15/17 19:31 4 MG Miscellaneous (Iv Fluids Completed) 1 ea PRN PRN N/A 01/03/17 05:45 01/03/18 05:44 Clonidine HCl (Catapres Tab) 0.1 mg Q6H PRN PO 01/03/17 09:15 02/02/17 09:14 01/12/17 16:06 0.1 MG Lisinopril (Zestril Tab) 10 mg QAM PO 01/06/17 08:00 02/05/17 07:59 01/17/17 08:09 10 MG Heparin Sodium (Porcine) (Heparin Sq 5000 Unit/0.5ml) 5,000 unit Q8 SQ 01/05/17 22:00 02/04/17 21:59 Tramadol HCl (Ultram Tab) not relieved by tylenol @ Q6H PRN PO 01/06/17 05:15 02/05/17 05:14 01/07/17 09:14 50 MG Morphine Sulfate (MoRPHine SULFATE INJ) 4 mg Q6H PRN IV 01/06/17 00:30 01/20/17 00:29 01/07/17 10:38 4 MG Al Hydrox/Mg Hydrox/Simethicone (Maalox Max Susp) 30 ml Q6H PRN PO 01/07/17 09:45 02/06/17 09:44 Hydromorphone HCl 1 mg 1 mg Q2H PRN IV 01/07/17 20:00 01/21/17 19:59 01/16/17 22:14 1 MG Promethazine HCl 12.5 mg/Sodium Chloride 50.5 ml @ 204 mls/hr Q6H PRN IV 01/14/17 18:00 02/13/17 17:59 01/15/17 20:45 204 MLS/HR Ampicillin Sodium/ Sulbactam Sodium/ Sodium Chloride (Unasyn Inj/Nss 100ml) 104 ml @ 200 mls/hr Q6@0200,0800,1400,2000 IV 01/16/17 14:00 01/26/17 13:59 01/17/17 15:32 200 MLS/HR
[2017-01-17] MEDS: TRAMADOL HCL 50 MG TAB PO PRN (19:53)
[2017-01-17] MEDS: HYDROmorphone INJ 1 MG/ML SYR IV PRN (20:48)
[2017-01-18] MEDS: ONDANSETRON INJ 2 MG/ML 2 ML VIAL IV PRN (00:35)
[2017-01-18 00:59] VITALS: BP 165/85; PULSE 63; TEMP 36.7; O2SAT 98
[2017-01-18] MEDS: AMPICILLIN/SULBACTAM SOD INJ 1,500 MG in SODIUM CHLORIDE 0.9% 100ML 100 ML IV SCH ×4 (01:43→20:18)
[2017-01-18] MEDS: HYDROmorphone INJ 1 MG/ML SYR IV PRN (02:53)
[2017-01-18] MEDS: HEPARIN SOD 5000 UNIT/0.5 ML CARP SQ SCH ×3 (05:22→20:18)
[2017-01-18 06:57] VITALS: BP 134/78; PULSE 50; TEMP 36.5; O2SAT 98
[2017-01-18 07:45] LABS: HEMATOCRIT 33.3 % (42-52); MEAN CELL VOLUME 86.3 fL (80-100); MEAN CORPUSCULAR HEMOGLOBIN 27.2 pg (25-34); MEAN CORPUSCULAR HGB CONC 31.5 g/dl (32-36); MEAN PLATELET VOLUME 9.1 fL (7.4-10.4); PLATELET COUNT 258 K/uL (130-400); RED BLOOD COUNT 3.86 M/uL (4.7-6.1); WHITE BLOOD COUNT 6.14 K/uL (4.8-10.8)
[2017-01-18 08:04] LABS: BUN/CREATININE RATIO 15.9 (10-20); CALCIUM 8.4 mg/dl (8.5-10.1); CREATININE 0.9 mg/dl (0.60-1.40); POTASSIUM 4.1 mmol/L (3.5-5.1)
[2017-01-18] MEDS: LISINOPRIL 10 MG TAB PO SCH (08:05)
[2017-01-18 14:28] VITALS: BP 134/73; PULSE 48; TEMP 36.7; O2SAT 100
--- NOTE | 2017-01-18 15:15 | Infectious Disease Progress Nt ---
Progress Note Date of Service Jan 18, 2017. Subjective Pt evaluation today including: conversation w/ patient, physical exam, chart review, lab review, review of studies, review of inpatient medication list WBC count this morning was 6.14. Lipase elevated to 955. He is feeling poorly today. He is nauseated. He vomited multiple times yesterday evening after dinner. He is worried to try eating again. He did not put Aquacel on his wounds yesterday. He is having no pain in the RLE. All Other Systems: Reviewed and Negative Medications Current Inpatient Medications Medications (Trade) Dose Ordered Sig/Marilyn Route Start Time Stop Time Status Last Admin Dose Admin Acetaminophen (Tylenol Tab) 650 mg Q4H PRN PO 01/03/17 05:15 02/02/17 05:14 Ondansetron HCl (Zofran Inj) 4 mg Q6H PRN IV 01/03/17 05:15 02/02/17 05:14 01/18/17 00:35 4 MG Miscellaneous (Iv Fluids Completed) 1 ea PRN PRN N/A 01/03/17 05:45 01/03/18 05:44 Clonidine HCl (Catapres Tab) 0.1 mg Q6H PRN PO 01/03/17 09:15 02/02/17 09:14 01/12/17 16:06 0.1 MG Lisinopril (Zestril Tab) 10 mg QAM PO 01/06/17 08:00 02/05/17 07:59 01/18/17 08:05 10 MG Heparin Sodium (Porcine) (Heparin Sq 5000 Unit/0.5ml) 5,000 unit Q8 SQ 01/05/17 22:00 02/04/17 21:59 Tramadol HCl (Ultram Tab) not relieved by tylenol @ Q6H PRN PO 01/06/17 05:15 02/05/17 05:14 01/17/17 19:53 50 MG Morphine Sulfate (MoRPHine SULFATE INJ) 4 mg Q6H PRN IV 01/06/17 00:30 01/20/17 00:29 01/07/17 10:38 4 MG Al Hydrox/Mg Hydrox/Simethicone (Maalox Max Susp) 30 ml Q6H PRN PO 01/07/17 09:45 02/06/17 09:44 Hydromorphone HCl 1 mg 1 mg Q2H PRN IV 01/07/17 20:00 01/21/17 19:59 01/18/17 02:53 1 MG Promethazine HCl 12.5 mg/Sodium Chloride 50.5 ml @ 204 mls/hr Q6H PRN IV 01/14/17 18:00 02/13/17 17:59 01/15/17 20:45 204 MLS/HR Ampicillin Sodium/ Sulbactam Sodium/ Sodium Chloride (Unasyn Inj/Nss 100ml) 104 ml @ 200 mls/hr Q6@0200,0800,1400,2000 IV 01/16/17 14:00 01/26/17 13:59 01/18/17 12:33 200 MLS/HR Objective Vital Signs Date Time Temp Pulse Resp B/P Pulse Ox O2 Delivery O2 Flow Rate FiO2 01/18/17 14:28 36.7 48 18 134/73 100 01/18/17 08:00 Room Air 01/18/17 06:57 36.5 50 18 134/78 98 Room Air 01/18/17 00:59 36.7 63 18 165/85 98 01/18/17 00:00 Room Air 01/17/17 20:00 Room Air 01/17/17 16:00 Room Air Physical Exam General Appearance: WD/WN, no apparent distress Eyes: normal inspection, sclerae normal ENT: hearing grossly normal Neck: supple, trachea midline Respiratory/Chest: no respiratory distress, no accessory muscle use Cardiovascular: regular rate, rhythm Extremities: + pertinent finding (chronic skin changes RLE. Mild erythema and maceration surrounding wounds. ) Neurologic/Psychiatric: alert, normal mood/affect Skin: warm/dry, no rash, + pertinent finding (Continued open wounds of the RLE - slightly improved) Laboratory Results Last 24 Hours Test 01/18/17 06:43 White Blood Count 6.14 K/uL Red Blood Count 3.86 M/uL Hemoglobin 10.5 g/dL Hematocrit 33.3 % Mean Corpuscular Volume 86.3 fL Mean Corpuscular Hemoglobin 27.2 pg Mean Corpuscular Hemoglobin Concent 31.5 g/dl RDW Standard Deviation 46.7 fL RDW Coefficient of Variation 14.9 % Platelet Count 258 K/uL Mean Platelet Volume 9.1 fL Sodium Level 143 mmol/L Potassium Level 4.1 mmol/L Chloride Level 110 mmol/L Carbon Dioxide Level 26 mmol/L Anion Gap 7.0 mmol/L Blood Urea Nitrogen 14 mg/dl Creatinine 0.90 mg/dl Est Creatinine Clear Calc Drug Dose 80.2 ml/min Estimated GFR () 104.2 Estimated GFR (Non- 89.9 BUN/Creatinine Ratio 15.9 Random Glucose 87 mg/dl Calcium Level 8.4 mg/dl Lipase 955 U/L Assessment and Plan Patient with chronic lymphedema and wound infection with surrounding cellulitis of the right lower extremity. He is currently on IV Unasyn. His leg has very mildly improved, but continues to have wound changes that are concerning. He refuses to take PO abx upon discharge. Continue abx therapy during stay. We will follow. PROVIDER ADDENDUM: Patient reviewed with Ms. Agustin. Agree with above assessment.
[2017-01-18 15:45] VITALS: O2SAT 100
--- NOTE | 2017-01-18 21:11 | Progress Note ---
Medicine Progress Note Date & Time of Visit: Jan 18, 2017 at 21:04. Subjective Pt was seen and examined lying in bed with no distress pt said that he continue to feel nauseated he said that he did not eat much today because he vomited multiple times early denies any fever, chest pain, palpitation and sob Objective Last 8 Hrs Date Time Temp Pulse Resp B/P Pulse Ox O2 Delivery O2 Flow Rate FiO2 01/18/17 15:45 100 Room Air 01/18/17 14:28 36.7 48 18 134/73 100 Physical Exam: General- no acute distress Head- atraumatic Eyes- PERRL, EOMI ENT- oropharynx clear Neck- supple, no JVD Lungs- clear to auscultation and percussion Heart- regular rhythm; no murmur Abdomen- normal bowel sounds, soft Extremities- +edema, no calf tenderness, RLE erythema with demarcation Neuro- alert, oriented x 3; PERRL, EOMI Skin- warm & dry Laboratory Results: Last 24 Hours Test 01/18/17 06:43 White Blood Count 6.14 K/uL Red Blood Count 3.86 M/uL Hemoglobin 10.5 g/dL Hematocrit 33.3 % Mean Corpuscular Volume 86.3 fL Mean Corpuscular Hemoglobin 27.2 pg Mean Corpuscular Hemoglobin Concent 31.5 g/dl RDW Standard Deviation 46.7 fL RDW Coefficient of Variation 14.9 % Platelet Count 258 K/uL Mean Platelet Volume 9.1 fL Sodium Level 143 mmol/L Potassium Level 4.1 mmol/L Chloride Level 110 mmol/L Carbon Dioxide Level 26 mmol/L Anion Gap 7.0 mmol/L Blood Urea Nitrogen 14 mg/dl Creatinine 0.90 mg/dl Est Creatinine Clear Calc Drug Dose 80.2 ml/min Estimated GFR () 104.2 Estimated GFR (Non- 89.9 BUN/Creatinine Ratio 15.9 Random Glucose 87 mg/dl Calcium Level 8.4 mg/dl Lipase 955 U/L Assessment & Plan Recurrent Acute Pancreatitis - CT abdomen noted; (+) CBD and hepatic duct dilatation - may have passed a stone, cannot rule out pancreatic mass or stricture - given aggressive IV fluids and made NPO - Lipase level improved from 4900 to 2000--> normal today 300s - decreased IV fluids -GI consulted, patient declining MRCP at this time -lipase continue to elevate -Pt refused to start on IVF -Has not eaten much today - continue monitor Right Lower Leg Ulcers, Cellulitis-recurrent Chronic Right Lower Extremity Edema/Lymphedema Chronic Skin changes - wound cultures: Enterobacter, staph, corynebacterium - blood cultures negative - on Zosyn Day 5 -ID consulted and appreciate input - Wound care consult on board -Antibiotic has been changed to Unasyn from 01/10/17 -likely to continue IV antibiotic till wound is reasonably better -Course of antibiotic needs to be finished -needs to stay a few more days in hospital -Did not get any antibiotic over the WE -Will continue IV abx while inpatient since pt will not take abx once discharge -slightly improved Fall secondary to lethargy -likely secondary to dehydration,hypotension and infection - presenting chief complaint at the ER -CT head: negative - blood cultures: negative -getting PT/OT -ambulating well without any difficulty -Stable Hypertension -Elevated secondary to noncompliance -Continue lisinopril 10mg -Stable hx testicular CA sp surgery Chronic anemia, hg at baseline H/O DVT as per records, px off anticoag 2 to homelessness Schizophrenia as per records No acute symptoms DVT prophylaxis Heparin Current Inpatient Medications: Current Inpatient Medications Medications (Trade) Dose Ordered Sig/Marilyn Route Start Time Stop Time Status Last Admin Dose Admin Acetaminophen (Tylenol Tab) 650 mg Q4H PRN PO 01/03/17 05:15 02/02/17 05:14 Ondansetron HCl (Zofran Inj) 4 mg Q6H PRN IV 01/03/17 05:15 02/02/17 05:14 01/18/17 00:35 4 MG Miscellaneous (Iv Fluids Completed) 1 ea PRN PRN N/A 01/03/17 05:45 01/03/18 05:44 Clonidine HCl (Catapres Tab) 0.1 mg Q6H PRN PO 01/03/17 09:15 02/02/17 09:14 01/12/17 16:06 0.1 MG Lisinopril (Zestril Tab) 10 mg QAM PO 01/06/17 08:00 02/05/17 07:59 01/18/17 08:05 10 MG Heparin Sodium (Porcine) (Heparin Sq 5000 Unit/0.5ml) 5,000 unit Q8 SQ 01/05/17 22:00 02/04/17 21:59 Tramadol HCl (Ultram Tab) not relieved by tylenol @ Q6H PRN PO 01/06/17 05:15 02/05/17 05:14 01/17/17 19:53 50 MG Morphine Sulfate (MoRPHine SULFATE INJ) 4 mg Q6H PRN IV 01/06/17 00:30 01/20/17 00:29 01/07/17 10:38 4 MG Al Hydrox/Mg Hydrox/Simethicone (Maalox Max Susp) 30 ml Q6H PRN PO 01/07/17 09:45 02/06/17 09:44 Hydromorphone HCl 1 mg 1 mg Q2H PRN IV 01/07/17 20:00 01/21/17 19:59 01/18/17 02:53 1 MG Promethazine HCl 12.5 mg/Sodium Chloride 50.5 ml @ 204 mls/hr Q6H PRN IV 01/14/17 18:00 02/13/17 17:59 01/15/17 20:45 204 MLS/HR Ampicillin Sodium/ Sulbactam Sodium/ Sodium Chloride (Unasyn Inj/Nss 100ml) 104 ml @ 200 mls/hr Q6@0200,0800,1400,2000 IV 01/16/17 14:00 01/26/17 13:59 01/18/17 20:18 200 MLS/HR
[2017-01-18] MEDS ORDERED: SODIUM CHLORIDE 0.9% 1000ML 1,000 ML IV SCH (21:45)
[2017-01-18 23:35] VITALS: BP 156/83; PULSE 59; TEMP 36.7; O2SAT 98
[2017-01-19] MEDS: HEPARIN SOD 5000 UNIT/0.5 ML CARP SQ SCH ×3 (01:21→19:24)
[2017-01-19] MEDS: AMPICILLIN/SULBACTAM SOD INJ 1,500 MG in SODIUM CHLORIDE 0.9% 100ML 100 ML IV SCH ×4 (01:43→20:24)
[2017-01-19 06:57] VITALS: BP 168/93; PULSE 50; TEMP 36.6; O2SAT 98
[2017-01-19 07:58] LABS: BASO % 0.5 %; BASO ABS # 0.02 K/uL (0-0.2); COMPLETE YES; EOS % 4.3 %; HEMATOCRIT 32.5 % (42-52); IG% 0.2 %; LYMPH % 23.9 %; LYMPH ABS # 0.99 K/uL (1.2-3.4); MEAN CELL VOLUME 85.8 fL (80-100); MEAN CORPUSCULAR HEMOGLOBIN 27.4 pg (25-34); MEAN PLATELET VOLUME 9.1 fL (7.4-10.4); MONO % 6.5 %; NEUT % 64.6 %; PLATELET COUNT 260 K/uL (130-400); RED BLOOD COUNT 3.79 M/uL (4.7-6.1); WHITE BLOOD COUNT 4.15 K/uL (4.8-10.8)
[2017-01-19] MEDS: LISINOPRIL 10 MG TAB PO SCH (08:16)
[2017-01-19 08:31] LABS: BUN/CREATININE RATIO 12.6 (10-20); CALCIUM 8.8 mg/dl (8.5-10.1); CREATININE 0.95 mg/dl (0.60-1.40); POTASSIUM 4.1 mmol/L (3.5-5.1)
[2017-01-19 08:33] LABS: ALB/GLOB RATIO 0.7 (0.9-2)
--- NOTE | 2017-01-19 12:28 | Progress Note ---
Medicine Progress Note Date & Time of Visit: Jan 19, 2017 at 12:17. Subjective Pt was seen and examined Sitting in bed with no distress Pt said that he feels a little better today he did not eat breakfast this morning He said that he does not feel comfortable being in this room He refused to start on IVF for the pancreatitis Denies any fever, palpitation, dizziness and SOB Objective Last 8 Hrs Date Time Temp Pulse Resp B/P Pulse Ox O2 Delivery O2 Flow Rate FiO2 01/19/17 08:00 Room Air 01/19/17 06:57 36.6 50 20 168/93 98 Room Air Physical Exam: General- no acute distress Head- atraumatic Eyes- PERRL, EOMI ENT- oropharynx clear Neck- supple, no JVD Lungs- clear to auscultation and percussion Heart- regular rhythm; no murmur Abdomen- normal bowel sounds, soft Extremities- +edema, no calf tenderness, RLE erythema with demarcation Neuro- alert, oriented x 3; PERRL, EOMI Skin- warm & dry Laboratory Results: Last 24 Hours Test 01/19/17 07:15 White Blood Count 4.15 K/uL Red Blood Count 3.79 M/uL Hemoglobin 10.4 g/dL Hematocrit 32.5 % Mean Corpuscular Volume 85.8 fL Mean Corpuscular Hemoglobin 27.4 pg Mean Corpuscular Hemoglobin Concent 32.0 g/dl Platelet Count 260 K/uL Mean Platelet Volume 9.1 fL Neutrophils (%) (Auto) 64.6 % Lymphocytes (%) (Auto) 23.9 % Monocytes (%) (Auto) 6.5 % Eosinophils (%) (Auto) 4.3 % Basophils (%) (Auto) 0.5 % Neutrophils # (Auto) 2.68 K/uL Lymphocytes # (Auto) 0.99 K/uL Monocytes # (Auto) 0.27 K/uL Eosinophils # (Auto) 0.18 K/uL Basophils # (Auto) 0.02 K/uL RDW Standard Deviation 46.3 fL RDW Coefficient of Variation 14.8 % Immature Granulocyte % (Auto) 0.2 % Immature Granulocyte # (Auto) 0.01 K/uL Sodium Level 142 mmol/L Potassium Level 4.1 mmol/L Chloride Level 109 mmol/L Carbon Dioxide Level 25 mmol/L Anion Gap 8.0 mmol/L Blood Urea Nitrogen 12 mg/dl Creatinine 0.95 mg/dl Est Creatinine Clear Calc Drug Dose 76.0 ml/min Estimated GFR () 97.7 Estimated GFR (Non- 84.3 BUN/Creatinine Ratio 12.6 Random Glucose 78 mg/dl Calcium Level 8.8 mg/dl Total Bilirubin 0.6 mg/dl Aspartate Amino Transf (AST/SGOT) 21 U/L Alanine Aminotransferase (ALT/SGPT) 18 U/L Alkaline Phosphatase 350 U/L Total Protein 6.8 gm/dl Albumin 2.8 gm/dl Globulin 4.0 gm/dl Albumin/Globulin Ratio 0.7 Lipase 435 U/L Assessment & Plan Recurrent Acute Pancreatitis - CT abdomen noted; (+) CBD and hepatic duct dilatation - may have passed a stone, cannot rule out pancreatic mass or stricture - given aggressive IV fluids and made NPO - Lipase level improved from 4900 to 2000--> normal today 300s - decreased IV fluids -GI consulted, patient declining MRCP at this time 01/19 -Pt refused to start on IVF last night - Lipase decrease to 400's today - his symptoms improved - Will start on clear liquid diet and advanced as tolerated - continue monitor Right Lower Leg Ulcers, Cellulitis-recurrent Chronic Right Lower Extremity Edema/Lymphedema Chronic Skin changes - wound cultures: Enterobacter, staph, corynebacterium - blood cultures negative - on Zosyn Day 5 -ID consulted and appreciate input - Wound care consult on board -Antibiotic has been changed to Unasyn from 01/10/17 -likely to continue IV antibiotic till wound is reasonably better -Course of antibiotic needs to be finished -needs to stay a few more days in hospital -Did not get any antibiotic over the WE -Will continue IV abx while inpatient since pt will not take abx once discharge -slightly improved - Continue IV abx Fall secondary to lethargy -likely secondary to dehydration,hypotension and infection - presenting chief complaint at the ER -CT head: negative - blood cultures: negative -getting PT/OT -ambulating well without any difficulty -Stable Hypertension -Elevated secondary to noncompliance -Consider to increase lisinopril from 10mg to 20mg daily -Stable hx testicular CA sp surgery Chronic anemia, hg at baseline H/O DVT as per records, px off anticoag 2 to homelessness Schizophrenia as per records No acute symptoms DVT prophylaxis Heparin subq CODE STATUS FULL CODE Consultants: ID GI Current Inpatient Medications: Current Inpatient Medications Medications (Trade) Dose Ordered Sig/Marilyn Route Start Time Stop Time Status Last Admin Dose Admin Acetaminophen (Tylenol Tab) 650 mg Q4H PRN PO 01/03/17 05:15 02/02/17 05:14 Ondansetron HCl (Zofran Inj) 4 mg Q6H PRN IV 01/03/17 05:15 02/02/17 05:14 01/18/17 00:35 4 MG Miscellaneous (Iv Fluids Completed) 1 ea PRN PRN N/A 01/03/17 05:45 01/03/18 05:44 Clonidine HCl (Catapres Tab) 0.1 mg Q6H PRN PO 01/03/17 09:15 02/02/17 09:14 01/12/17 16:06 0.1 MG Lisinopril (Zestril Tab) 10 mg QAM PO 01/06/17 08:00 02/05/17 07:59 01/19/17 08:16 10 MG Heparin Sodium (Porcine) (Heparin Sq 5000 Unit/0.5ml) 5,000 unit Q8 SQ 01/05/17 22:00 02/04/17 21:59 Tramadol HCl (Ultram Tab) not relieved by tylenol @ Q6H PRN PO 01/06/17 05:15 02/05/17 05:14 01/17/17 19:53 50 MG Morphine Sulfate (MoRPHine SULFATE INJ) 4 mg Q6H PRN IV 01/06/17 00:30 01/20/17 00:29 01/07/17 10:38 4 MG Al Hydrox/Mg Hydrox/Simethicone (Maalox Max Susp) 30 ml Q6H PRN PO 01/07/17 09:45 02/06/17 09:44 Hydromorphone HCl 1 mg 1 mg Q2H PRN IV 01/07/17 20:00 01/21/17 19:59 01/18/17 02:53 1 MG Promethazine HCl 12.5 mg/Sodium Chloride 50.5 ml @ 204 mls/hr Q6H PRN IV 01/14/17 18:00 02/13/17 17:59 01/15/17 20:45 204 MLS/HR Ampicillin Sodium/ Sulbactam Sodium/ Sodium Chloride (Unasyn Inj/Nss 100ml) 104 ml @ 200 mls/hr Q6@0200,0800,1400,2000 IV 01/16/17 14:00 01/26/17 13:59 01/19/17 08:16 200 MLS/HR
[2017-01-19 15:11] VITALS: BP 162/76; PULSE 54; TEMP 36.6; O2SAT 99
[2017-01-19] MEDS: TRAMADOL HCL 50 MG TAB PO PRN (23:24)
[2017-01-19 23:29] VITALS: BP 145/84; PULSE 62; TEMP 36.6; O2SAT 99
[2017-01-20] MEDS: HYDROmorphone INJ 1 MG/ML SYR IV PRN ×2 (00:28→21:52)
[2017-01-20] MEDS: AMPICILLIN/SULBACTAM SOD INJ 1,500 MG in SODIUM CHLORIDE 0.9% 100ML 100 ML IV SCH ×4 (02:00→19:21)
[2017-01-20] MEDS: HEPARIN SOD 5000 UNIT/0.5 ML CARP SQ SCH ×3 (03:24→19:20)
[2017-01-20 07:19] VITALS: BP 129/74; PULSE 46; TEMP 36.4; O2SAT 98
[2017-01-20] MEDS: LISINOPRIL 10 MG TAB PO SCH (07:39)
[2017-01-20 08:02] VITALS: O2SAT 98
--- NOTE | 2017-01-20 11:31 | Infectious Disease Progress Nt ---
Progress Note Date of Service Jan 20, 2017. Subjective Pt evaluation today including: conversation w/ patient, physical exam, chart review, lab review, review of studies, review of inpatient medication list No repeat labs this morning. No new micro/imaging. Patient continues to refuse MRCP. He continues to refuse Aquacel, and he also is refusing continued PO abx following D/C. He is having some mild nausea this morning with activity. He has not eaten much recently. He otherwise has no other complaints this morning. All Other Systems: Reviewed and Negative Medications Current Inpatient Medications Medications (Trade) Dose Ordered Sig/Marilyn Route Start Time Stop Time Status Last Admin Dose Admin Acetaminophen (Tylenol Tab) 650 mg Q4H PRN PO 01/03/17 05:15 02/02/17 05:14 Ondansetron HCl (Zofran Inj) 4 mg Q6H PRN IV 01/03/17 05:15 02/02/17 05:14 01/18/17 00:35 4 MG Miscellaneous (Iv Fluids Completed) 1 ea PRN PRN N/A 01/03/17 05:45 01/03/18 05:44 Clonidine HCl (Catapres Tab) 0.1 mg Q6H PRN PO 01/03/17 09:15 02/02/17 09:14 01/12/17 16:06 0.1 MG Lisinopril (Zestril Tab) 10 mg QAM PO 01/06/17 08:00 02/05/17 07:59 01/20/17 07:39 10 MG Heparin Sodium (Porcine) (Heparin Sq 5000 Unit/0.5ml) 5,000 unit Q8 SQ 01/05/17 22:00 02/04/17 21:59 Tramadol HCl (Ultram Tab) not relieved by tylenol @ Q6H PRN PO 01/06/17 05:15 02/05/17 05:14 01/19/17 23:24 50 MG Al Hydrox/Mg Hydrox/Simethicone (Maalox Max Susp) 30 ml Q6H PRN PO 01/07/17 09:45 02/06/17 09:44 Hydromorphone HCl 1 mg 1 mg Q2H PRN IV 01/07/17 20:00 01/21/17 19:59 01/20/17 00:28 1 MG Promethazine HCl 12.5 mg/Sodium Chloride 50.5 ml @ 204 mls/hr Q6H PRN IV 01/14/17 18:00 02/13/17 17:59 01/15/17 20:45 204 MLS/HR Ampicillin Sodium/ Sulbactam Sodium/ Sodium Chloride (Unasyn Inj/Nss 100ml) 104 ml @ 200 mls/hr Q6@0200,0800,1400,2000 IV 01/16/17 14:00 01/26/17 13:59 01/20/17 07:39 200 MLS/HR Objective Vital Signs Date Time Temp Pulse Resp B/P Pulse Ox O2 Delivery O2 Flow Rate FiO2 01/20/17 08:02 98 Room Air 01/20/17 07:19 36.4 46 18 129/74 98 Room Air 01/20/17 00:00 Room Air 01/19/17 23:29 36.6 62 18 145/84 99 Room Air 01/19/17 20:00 Room Air 01/19/17 15:11 36.6 54 18 162/76 99 Room Air Physical Exam General Appearance: WD/WN, no apparent distress Eyes: normal inspection, sclerae normal ENT: hearing grossly normal Neck: supple, trachea midline Respiratory/Chest: no respiratory distress, no accessory muscle use Cardiovascular: regular rate, rhythm Extremities: + pertinent finding (right lower extremity with chronic lymphedema ) Neurologic/Psychiatric: alert, normal mood/affect Skin: + pertinent finding (continued very faint erythema and maceration of the right lower extremity. Wounds appear slightly improved. ) Assessment and Plan Patient with chronic lymphedema and wound infection with surrounding cellulitis of the right lower extremity. He is currently on IV Unasyn. His leg is improving. Ideally, would recommend continued abx therapy post-discharge with PO therapy but patient is refusing. Because he does appear to have had improvement, feel that he is OK for discharge this weekend from ID standpoint once medically cleared. Continue abx until discharge. Thanks PROVIDER ADDENDUM: Patient reviewed with Ms. Agustin. Agree with above assessment.
[2017-01-20] MEDS: ONDANSETRON INJ 2 MG/ML 2 ML VIAL IV PRN (13:50)
[2017-01-20 14:55] VITALS: BP 132/76; PULSE 48; TEMP 36.7; O2SAT 98
[2017-01-20 16:00] VITALS: O2SAT 98
--- NOTE | 2017-01-20 20:17 | Progress Note ---
Medicine Progress Note Date & Time of Visit: Jan 20, 2017 at 20:13. Subjective Pt was seen and examined Sitting in bed with no distress Pt said that he vomited about 4 times today he said that he still feels nauseated he did not eat anything today denies any chest pain, palpitation, sob Objective Last 8 Hrs Date Time Temp Pulse Resp B/P Pulse Ox O2 Delivery O2 Flow Rate FiO2 01/20/17 16:00 98 Room Air 01/20/17 14:55 36.7 48 20 132/76 98 Room Air Physical Exam: General- no acute distress Head- atraumatic Eyes- PERRL, EOMI ENT- oropharynx clear Neck- supple, no JVD Lungs- clear to auscultation and percussion Heart- regular rhythm; no murmur Abdomen- normal bowel sounds, soft Extremities- +edema, no calf tenderness, RLE erythema with demarcation Neuro- alert, oriented x 3; PERRL, EOMI Skin- warm & dry Assessment & Plan Recurrent Acute Pancreatitis - CT abdomen noted; (+) CBD and hepatic duct dilatation - may have passed a stone, cannot rule out pancreatic mass or stricture - given aggressive IV fluids and made NPO - Lipase level improved from 4900 to 2000--> normal today 300s - decreased IV fluids -GI consulted, patient declining MRCP at this time 01/20 -Still refused to start on IVF - his symptoms improved - Continue clear liquid diet - repeat lab in am - continue monitor Right Lower Leg Ulcers, Cellulitis-recurrent Chronic Right Lower Extremity Edema/Lymphedema Chronic Skin changes - wound cultures: Enterobacter, staph, corynebacterium - blood cultures negative - on Zosyn Day 5 -ID consulted and appreciate input - Wound care consult on board -Antibiotic has been changed to Unasyn from 01/10/17 -likely to continue IV antibiotic till wound is reasonably better -Course of antibiotic needs to be finished -needs to stay a few more days in hospital -Did not get any antibiotic over the WE -Will continue IV abx while inpatient since pt will not take abx once discharge -improved - From ID standpoint ok to discharge on the weekend - Continue IV abx until discharge since pt refused po abx upon discharge Fall secondary to lethargy -likely secondary to dehydration,hypotension and infection - presenting chief complaint at the ER -CT head: negative - blood cultures: negative -getting PT/OT -ambulating well without any difficulty -Stable Hypertension -Elevated secondary to noncompliance -Consider to increase lisinopril from 10mg to 20mg daily -Stable hx testicular CA sp surgery Chronic anemia, hg at baseline H/O DVT as per records, px off anticoag 2 to homelessness Schizophrenia as per records No acute symptoms DVT prophylaxis Heparin subq CODE STATUS FULL CODE Consultants: ID Gastro Current Inpatient Medications: Current Inpatient Medications Medications (Trade) Dose Ordered Sig/Marilyn Route Start Time Stop Time Status Last Admin Dose Admin Acetaminophen (Tylenol Tab) 650 mg Q4H PRN PO 01/03/17 05:15 02/02/17 05:14 Ondansetron HCl (Zofran Inj) 4 mg Q6H PRN IV 01/03/17 05:15 02/02/17 05:14 01/20/17 13:50 4 MG Miscellaneous (Iv Fluids Completed) 1 ea PRN PRN N/A 01/03/17 05:45 01/03/18 05:44 Clonidine HCl (Catapres Tab) 0.1 mg Q6H PRN PO 01/03/17 09:15 02/02/17 09:14 01/12/17 16:06 0.1 MG Lisinopril (Zestril Tab) 10 mg QAM PO 01/06/17 08:00 02/05/17 07:59 01/20/17 07:39 10 MG Heparin Sodium (Porcine) (Heparin Sq 5000 Unit/0.5ml) 5,000 unit Q8 SQ 01/05/17 22:00 02/04/17 21:59 Tramadol HCl (Ultram Tab) not relieved by tylenol @ Q6H PRN PO 01/06/17 05:15 02/05/17 05:14 01/19/17 23:24 50 MG Al Hydrox/Mg Hydrox/Simethicone (Maalox Max Susp) 30 ml Q6H PRN PO 01/07/17 09:45 02/06/17 09:44 Hydromorphone HCl 1 mg 1 mg Q2H PRN IV 01/07/17 20:00 01/21/17 19:59 01/20/17 00:28 1 MG Promethazine HCl 12.5 mg/Sodium Chloride 50.5 ml @ 204 mls/hr Q6H PRN IV 01/14/17 18:00 02/13/17 17:59 01/15/17 20:45 204 MLS/HR Ampicillin Sodium/ Sulbactam Sodium/ Sodium Chloride (Unasyn Inj/Nss 100ml) 104 ml @ 200 mls/hr Q6@0200,0800,1400,2000 IV 01/16/17 14:00 01/26/17 13:59 01/20/17 19:21 200 MLS/HR
[2017-01-20 23:10] VITALS: BP 120/72; PULSE 51; TEMP 36.5; O2SAT 99
[2017-01-21] MEDS: AMPICILLIN/SULBACTAM SOD INJ 1,500 MG in SODIUM CHLORIDE 0.9% 100ML 100 ML IV SCH ×4 (01:55→19:48)
[2017-01-21] MEDS: HEPARIN SOD 5000 UNIT/0.5 ML CARP SQ SCH ×3 (04:52→19:47)
[2017-01-21 06:30] LABS: HEMATOCRIT 31.9 % (42-52); MEAN CELL VOLUME 85.8 fL (80-100); MEAN CORPUSCULAR HEMOGLOBIN 27.4 pg (25-34); RED BLOOD COUNT 3.72 M/uL (4.7-6.1); WHITE BLOOD COUNT 3.43 K/uL (4.8-10.8)
[2017-01-21 06:31] LABS: PLATELET COUNT 240 K/uL (130-400)
[2017-01-21 06:57] LABS: BUN/CREATININE RATIO 15.3 (10-20); CALCIUM 8.4 mg/dl (8.5-10.1); CREATININE 0.93 mg/dl (0.60-1.40); POTASSIUM 3.8 mmol/L (3.5-5.1)
[2017-01-21 07:00] VITALS: BP 143/86; PULSE 42; TEMP 36.3; O2SAT 99
[2017-01-21 07:00] LABS: ALB/GLOB RATIO 0.7 (0.9-2)
[2017-01-21] MEDS ORDERED: SODIUM CHLORIDE 0.9% 1000ML 1,000 ML IV ONE (07:45)
[2017-01-21 08:00] VITALS: O2SAT 98
[2017-01-21] MEDS: LISINOPRIL 10 MG TAB PO SCH (08:00)
[2017-01-21 15:15] VITALS: BP 182/90; PULSE 50; TEMP 36.7; O2SAT 98
[2017-01-21] MEDS: CLONIDINE HCL 0.1 MG TAB PO PRN (15:25)
[2017-01-21 16:00] VITALS: O2SAT 98
[2017-01-21] MEDS: ONDANSETRON INJ 2 MG/ML 2 ML VIAL IV PRN (16:45)
[2017-01-21] MEDS: HYDROmorphone INJ 1 MG/ML SYR IV PRN ×3 (16:47→22:16)
--- NOTE | 2017-01-21 20:04 | Progress Note ---
Medicine Progress Note Date & Time of Visit: Jan 21, 2017 at 19:50. Subjective Pt was seen and examined Pt sitting in bed with no distress he said that he does not eat today because he slept for the day He continue to feel nauseated. still refused IVF Objective Last 8 Hrs Date Time Temp Pulse Resp B/P Pulse Ox O2 Delivery O2 Flow Rate FiO2 01/21/17 16:00 98 Room Air 01/21/17 15:15 36.7 50 14 182/90 98 Room Air Physical Exam: General- no acute distress Head- atraumatic Eyes- PERRL, EOMI ENT- oropharynx clear Neck- supple, no JVD Lungs- clear to auscultation and percussion Heart- regular rhythm; no murmur Abdomen- normal bowel sounds, soft Extremities- +edema, no calf tenderness, RLE erythema with demarcation Neuro- alert, oriented x 3; PERRL, EOMI Skin- warm & dry Laboratory Results: Last 24 Hours Test 01/21/17 05:44 White Blood Count 3.43 K/uL Red Blood Count 3.72 M/uL Hemoglobin 10.2 g/dL Hematocrit 31.9 % Mean Corpuscular Volume 85.8 fL Mean Corpuscular Hemoglobin 27.4 pg Mean Corpuscular Hemoglobin Concent 32.0 g/dl RDW Standard Deviation 46.6 fL RDW Coefficient of Variation 14.8 % Platelet Count 240 K/uL Mean Platelet Volume 9.0 fL Sodium Level 143 mmol/L Potassium Level 3.8 mmol/L Chloride Level 110 mmol/L Carbon Dioxide Level 25 mmol/L Anion Gap 8.0 mmol/L Blood Urea Nitrogen 14 mg/dl Creatinine 0.93 mg/dl Est Creatinine Clear Calc Drug Dose 77.6 ml/min Estimated GFR () 100.2 Estimated GFR (Non- 86.5 BUN/Creatinine Ratio 15.3 Random Glucose 89 mg/dl Calcium Level 8.4 mg/dl Total Bilirubin 0.8 mg/dl Aspartate Amino Transf (AST/SGOT) 70 U/L Alanine Aminotransferase (ALT/SGPT) 36 U/L Alkaline Phosphatase 486 U/L Total Protein 6.6 gm/dl Albumin 2.8 gm/dl Globulin 3.8 gm/dl Albumin/Globulin Ratio 0.7 Lipase 1372 U/L Assessment & Plan Recurrent Acute Pancreatitis - CT abdomen noted; (+) CBD and hepatic duct dilatation - may have passed a stone, cannot rule out pancreatic mass or stricture - given aggressive IV fluids and made NPO - Lipase level improved from 4900 to 2000--> normal today 300s - decreased IV fluids -GI consulted, patient declining MRCP at this time 01/21 -Still refused to start on IVF - Lipase increased today - Continue conservative management - Continue clear liquid diet - repeat lab in am - continue monitor Right Lower Leg Ulcers, Cellulitis-recurrent Chronic Right Lower Extremity Edema/Lymphedema Chronic Skin changes - wound cultures: Enterobacter, staph, corynebacterium - blood cultures negative - on Zosyn Day 5 -ID consulted and appreciate input - Wound care consult on board -Antibiotic has been changed to Unasyn from 01/10/17 -likely to continue IV antibiotic till wound is reasonably better -Course of antibiotic needs to be finished -needs to stay a few more days in hospital -Did not get any antibiotic over the WE -Will continue IV abx while inpatient since pt will not take abx once discharge - From ID standpoint ok to discharge on the weekend - Continue IV abx until discharge since pt refused po abx upon discharge - Leg is looking much better Fall secondary to lethargy -likely secondary to dehydration,hypotension and infection - presenting chief complaint at the ER -CT head: negative - blood cultures: negative -getting PT/OT -ambulating well without any difficulty -Stable Hypertension -Elevated secondary to noncompliance -Consider to increase lisinopril from 10mg to 20mg daily -Stable hx testicular CA sp surgery Chronic anemia, hg at baseline H/O DVT as per records, px off anticoag 2 to homelessness Schizophrenia as per records No acute symptoms DVT prophylaxis Heparin subq CODE STATUS FULL CODE Consultants: ID Gastro Current Inpatient Medications: Current Inpatient Medications Medications (Trade) Dose Ordered Sig/Marilyn Route Start Time Stop Time Status Last Admin Dose Admin Acetaminophen (Tylenol Tab) 650 mg Q4H PRN PO 01/03/17 05:15 02/02/17 05:14 Ondansetron HCl (Zofran Inj) 4 mg Q6H PRN IV 01/03/17 05:15 02/02/17 05:14 01/21/17 16:45 4 MG Miscellaneous (Iv Fluids Completed) 1 ea PRN PRN N/A 01/03/17 05:45 01/03/18 05:44 Clonidine HCl (Catapres Tab) 0.1 mg Q6H PRN PO 01/03/17 09:15 02/02/17 09:14 01/21/17 15:25 0.1 MG Lisinopril (Zestril Tab) 10 mg QAM PO 01/06/17 08:00 02/05/17 07:59 01/21/17 08:00 10 MG Heparin Sodium (Porcine) (Heparin Sq 5000 Unit/0.5ml) 5,000 unit Q8 SQ 01/05/17 22:00 02/04/17 21:59 Tramadol HCl (Ultram Tab) not relieved by tylenol @ Q6H PRN PO 01/06/17 05:15 02/05/17 05:14 01/19/17 23:24 50 MG Al Hydrox/Mg Hydrox/Simethicone (Maalox Max Susp) 30 ml Q6H PRN PO 01/07/17 09:45 02/06/17 09:44 Hydromorphone HCl 1 mg 1 mg Q2H PRN IV 01/07/17 20:00 01/21/17 19:59 01/21/17 19:48 1 MG Promethazine HCl 12.5 mg/Sodium Chloride 50.5 ml @ 204 mls/hr Q6H PRN IV 01/14/17 18:00 02/13/17 17:59 01/15/17 20:45 204 MLS/HR Ampicillin Sodium/ Sulbactam Sodium/ Sodium Chloride (Unasyn Inj/Nss 100ml) 104 ml @ 200 mls/hr Q6@0200,0800,1400,2000 IV 01/16/17 14:00 01/26/17 13:59 01/21/17 19:48 200 MLS/HR
[2017-01-21] MEDS ORDERED: HYDROmorphone INJ 0.5 MG/0.5 ML SYR IV ONE (21:12)
[2017-01-21] MEDS ORDERED: TRAMADOL HCL 50 MG TAB PO PRN (21:15)
[2017-01-21] MEDS ORDERED: OXYCODONE/ACETAMINOPHEN 5-325 TAB PO PRN (21:15)
[2017-01-21] MEDS ORDERED: OPTIRAY 320 IV PRN (21:30)
[2017-01-21] MEDS: TRAMADOL HCL 50 MG TAB PO PRN (21:31)
--- NOTE | 2017-01-21 22:16 | DIAGNOSTIC IMAGING REPORT ---
CT SCAN OF THE ABDOMEN AND PELVIS WITH IV CONTRAST CLINICAL HISTORY: Generalized abdominal pain. . COMPARISON STUDY: Prior abdominal CT scans, most recently dated 01/07/2017. TECHNIQUE: Following the IV administration of 115 cc of Optiray 320, CT scan of the abdomen and pelvis is performed from the lung bases to the proximal femora. Images are reviewed in the axial, sagittal, and coronal planes. IV contrast was administered without complication. Automated dose control exposure was utilized. CT DOSE: 253.96 mGy.cm FINDINGS: Lung bases: The heart is mildly enlarged and there is trace pericardial effusion. Emphysematous change is seen at the lung bases. There is bibasilar scarring versus atelectasis. No airspace consolidation is seen typical for pneumonia and no pleural effusion is identified. There is a tiny hiatal hernia. Liver: The contrast-enhanced liver is normal in size, contour, and attenuation. Focal fatty infiltration is seen adjacent to the falciform ligament. There is moderate intrahepatic biliary ductal dilatation, similar to the 01/07/2017 examination. The hepatic veins and portal veins are patent. Gallbladder: The gallbladder is markedly distended and appears mildly thick-walled and edematous. The common bile duct measures up to 14 mm in diameter. The common bile duct as well as the central intrahepatic ducts appear mildly thick-walled and hyperemic. Spleen: Normal in size and attenuation. Pancreas: There is mild to moderate glandular atrophy of the pancreas. The pancreatic duct is top normal measuring up to 3 mm. Adrenal glands: Unremarkable. Kidneys: There is markedly asymmetric cortical atrophy of the right kidney as compared to left. Foci of cortical scarring are seen throughout the right kidney and in the left lower pole. No hydronephrosis is seen. The kidneys enhance symmetrically. Abdominal vasculature: The abdominal aorta is normal in course and caliber noting advanced atherosclerotic calcification. 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 There are large azygos and hemiazygos veins which likely represent collateral circulation. This is similar to prior studies. Stomach and bowel: There is a small hiatal hernia. The stomach and duodenum otherwise normal in configuration. Wall thickening and hyperemia is identified in the distal stomach and proximal duodenum. There is periduodenal inflammation with extension the nella hepatis to the pancreatic head. No bowel obstruction is seen. There is moderate colonic fecal retention. The appendix is not identified and reported surgically absent. Peritoneum: There is no intraperitoneal free air or abdominal ascites. Omental collateral vessels are identified. Lymphadenopathy: None. Pelvic viscera: The bladder wall appears thickened comment irregular, and mildly hyperemic. Mild pericystic inflammation is noted. The prostate and seminal vesicles are normal as visualized. Induration is again noted in the right groin with venous collaterals. Some of this may be related to related to previous surgery. Skeletal structures: The skeletal structures are osteopenic. No lytic or blastic lesions are seen. Mild lumbosacral spondylosis is observed. There is near-complete fusion of the right sacroiliac joint. Chronic deformity of the bony pelvis may be related to remote trauma. Soft tissues: The patient is cachectic. There is mild body wall edema. Caput medusa are noted. IMPRESSION: 1. There is moderate intra and extrahepatic biliary ductal dilatation as well as mild dilatation of the pancreatic duct. The intrahepatic ducts appear mildly thick-walled and hyperemic. The appearance is highly concerning for biliary obstruction. A mass lesion would be impossible to exclude. GI consultation and ERCP is recommended for further assessment if not already performed. Infection of the biliary tree be impossible to exclude by imaging. 2. Wall thickening and hyperemia is seen in the distal stomach and proximal duodenum. There is surrounding inflammatory change which extends from the nella hepatis to the pancreatic head. This could be related to biliary obstruction, or could reflect acute pancreatitis and/or duodenitis. Correlation with clinical laboratory findings will be required. 3. The gallbladder is distended, thick-walled, and edematous. This is similar to the 01/07/2017 examination. Acute cholecystitis is not excluded. 4. 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 5. Cardiomegaly. 6. Numerous additional chronic changes as above. Electronically signed by: Mulugeta Mccabe M.D. 01/21/2017 10:15 PM Dictated Date/Time: 01/21/2017 9:54 PM
--- NOTE | 2017-01-21 22:59 | Progress Note ---
Internal Med Progress Note Date of Service: Jan 21, 2017. Provider Documentation: Made aware by RN of px co worsening upper abd pain w/ nausea/emesis episodes EMR notes reviewed. CT abd pelvis noted : 1. There is moderate intra and extrahepatic biliary ductal dilatation as well as mild dilatation of the pancreatic duct. The intrahepatic ducts appear mildly thick-walled and hyperemic. The appearance is highly concerning for biliary obstruction. A mass lesion would be impossible to exclude. GI consultation and ERCP is recommended for further assessment if not already performed. Infection of the biliary tree be impossible to exclude by imaging. 2. Wall thickening and hyperemia is seen in the distal stomach and proximal duodenum. There is surrounding inflammatory change which extends from the nella hepatis to the pancreatic head. This could be related to biliary obstruction, or could reflect acute pancreatitis and/or duodenitis. Correlation with clinical laboratory findings will be required. 3. The gallbladder is distended, thick-walled, and edematous. This is similar to the 01/07/2017 examination. Acute cholecystitis is not excluded. LFTs, lipase worse AP Worsening abd pain biliary pancreatitis poss incipient cholangitis bowel rest for now IVF (px refusing LRS 2 to paranoia) change Unasyn to Zosyn MRCP in AM (px agreeable) Re-consult GI once MRCP results in. Px agreeable to plan of care. Will relay to AM provider. Vital Signs: Date Time Temp Pulse Resp B/P Pulse Ox O2 Delivery O2 Flow Rate FiO2 01/22/17 07:14 36.4 52 18 153/79 98 Room Air 01/22/17 00:00 Room Air 01/21/17 23:15 36.5 72 20 169/78 97 Room Air 01/21/17 20:00 Room Air 01/21/17 16:00 98 Room Air 01/21/17 15:15 36.7 50 14 182/90 98 Room Air Lab Results: Results Past 24 Hours Test 01/21/17 23:54 01/22/17 06:10 Range/Units Prothrombin Time 11.5 9.0-12.0 SECONDS Prothromb Time International Ratio 1.1 0.9-1.1 Sodium Level 144 144 136-145 mmol/L Potassium Level 3.7 4.2 3.5-5.1 mmol/L Chloride Level 111 111 98-107 mmol/L Carbon Dioxide Level 23 22 21-32 mmol/L Anion Gap 10.0 11.0 3-11 mmol/L Blood Urea Nitrogen 13 14 7-18 mg/dl Creatinine 0.97 1.20 0.60-1.40 mg/dl Est Creatinine Clear Calc Drug Dose 74.4 60.2 ml/min Estimated GFR () 95.2 73.6 Estimated GFR (Non- 82.2 63.5 BUN/Creatinine Ratio 13.3 11.8 10-20 Random Glucose 90 83 70-99 mg/dl Calcium Level 8.4 8.4 8.5-10.1 mg/dl Magnesium Level 1.8 1.8-2.4 mg/dl Total Bilirubin 2.2 1.5 0.2-1 mg/dl Aspartate Amino Transf (AST/SGOT) 105 127 15-37 U/L Alanine Aminotransferase (ALT/SGPT) 47 64 12-78 U/L Alkaline Phosphatase 591 630 45-117 U/L Total Protein 6.9 6.9 6.4-8.2 gm/dl Albumin 3.1 2.9 3.4-5.0 gm/dl Globulin 3.8 4.0 2.5-4.0 gm/dl Albumin/Globulin Ratio 0.8 0.7 0.9-2 Lipase 7901 5280 73-393 U/L White Blood Count 8.36 4.8-10.8 K/uL Red Blood Count 4.14 4.7-6.1 M/uL Hemoglobin 11.3 14.0-18.0 g/dL Hematocrit 35.9 42-52 % Mean Corpuscular Volume 86.7 80-100 fL Mean Corpuscular Hemoglobin 27.3 25-34 pg Mean Corpuscular Hemoglobin Concent 31.5 32-36 g/dl Platelet Count 234 130-400 K/uL Mean Platelet Volume 9.8 7.4-10.4 fL Neutrophils (%) (Auto) 95.6 % Lymphocytes (%) (Auto) 3.6 % Monocytes (%) (Auto) 0.4 % Eosinophils (%) (Auto) 0.2 % Basophils (%) (Auto) 0.1 % Neutrophils # (Auto) 7.99 1.4-6.5 K/uL Lymphocytes # (Auto) 0.30 1.2-3.4 K/uL Monocytes # (Auto) 0.03 0.11-0.59 K/uL Eosinophils # (Auto) 0.02 0-0.5 K/uL Basophils # (Auto) 0.01 0-0.2 K/uL RDW Standard Deviation 46.4 36.4-46.3 fL RDW Coefficient of Variation 14.5 11.5-14.5 % Immature Granulocyte % (Auto) 0.1 % Immature Granulocyte # (Auto) 0.01 0.00-0.02 K/uL
[2017-01-21] MEDS ORDERED: SODIUM CHLORIDE 0.45% 1000ML 1,000 ML IV SCH (23:00)
[2017-01-21 23:15] VITALS: BP 169/78; PULSE 72; TEMP 36.5; O2SAT 97
[2017-01-21] MEDS ORDERED: PIPERACILLIN/TAZOBACTAM 4.5 GM/100ML D5W IV STA (23:42)
[2017-01-22] MEDS: HYDROmorphone INJ 1 MG/ML SYR IV PRN ×3 (00:03→21:33)
[2017-01-22 00:18] LABS: BUN/CREATININE RATIO 13.3 (10-20); CALCIUM 8.4 mg/dl (8.5-10.1); CREATININE 0.97 mg/dl (0.60-1.40); MAGNESIUM 1.8 mg/dl (1.8-2.4); POTASSIUM 3.7 mmol/L (3.5-5.1)
[2017-01-22 00:23] LABS: INR 1.1 (0.9-1.1); PROTHROMBIN TIME (PATIENT) 11.5 SECONDS (9.0-12.0)
[2017-01-22 00:30] LABS: ALB/GLOB RATIO 0.8 (0.9-2)
[2017-01-22] MEDS: PROMETHAZINE HCL INJ 12.5 MG in SODIUM CHLORIDE 0.9% 50ML 50 ML IV PRN (01:11)
[2017-01-22] MEDS: SODIUM CHLOR 0.45% + 20MEQ KCL 1,000 ML IV SCH ×4 (02:00→23:37)
[2017-01-22] MEDS: HEPARIN SOD 5000 UNIT/0.5 ML CARP SQ SCH ×3 (05:21→22:41)
[2017-01-22] MEDS: PIPERACILL/TAZOBAC IV 3.375 GM in DEXTROSE 5% 100ML IV SCH ×3 (05:33→23:36)
[2017-01-22 07:08] LABS: BASO % 0.1 %; BASO ABS # 0.01 K/uL (0-0.2); COMPLETE YES; EOS % 0.2 %; HEMATOCRIT 35.9 % (42-52); IG% 0.1 %; LYMPH % 3.6 %; MEAN CELL VOLUME 86.7 fL (80-100); MEAN CORPUSCULAR HEMOGLOBIN 27.3 pg (25-34); MEAN CORPUSCULAR HGB CONC 31.5 g/dl (32-36); MEAN PLATELET VOLUME 9.8 fL (7.4-10.4); MONO % 0.4 %; NEUT % 95.6 %; PLATELET COUNT 234 K/uL (130-400); RED BLOOD COUNT 4.14 M/uL (4.7-6.1); WHITE BLOOD COUNT 8.36 K/uL (4.8-10.8)
[2017-01-22 07:14] VITALS: BP 153/79; PULSE 52; TEMP 36.4; O2SAT 98
[2017-01-22 07:42] LABS: BUN/CREATININE RATIO 11.8 (10-20); CALCIUM 8.4 mg/dl (8.5-10.1); CREATININE 1.2 mg/dl (0.60-1.40); POTASSIUM 4.2 mmol/L (3.5-5.1)
[2017-01-22] MEDS: LISINOPRIL 10 MG TAB PO SCH (08:00)
[2017-01-22] MEDS ORDERED: PIPERACILL/TAZOBAC CONSULT ACTIVE PRN (08:00)
[2017-01-22 08:15] LABS: ALB/GLOB RATIO 0.7 (0.9-2)
[2017-01-22 14:54] VITALS: BP 147/78; PULSE 59; TEMP 36.9; O2SAT 99
--- NOTE | 2017-01-22 18:05 | Progress Note ---
Medicine Progress Note Date & Time of Visit: Jan 22, 2017 at 17:47. Subjective Pt was seen and examined Lying in bed with no distress Pt had a rough night last night he had so much abdominal pain last night he said that his symptoms improved today pt is scheduled for an MRCP and he is refused to get it done I discussed with him that he needs the MRCP since his pancreas enzymes keeps elevating The CT abdomen that he had done last night was abnormal. we need the MRCP to rule out for any obstruction in the abdomen or mass Pt said that he would think about it. Nurse called and said pt still refused to get the MRCP done Objective Last 8 Hrs Date Time Temp Pulse Resp B/P Pulse Ox O2 Delivery O2 Flow Rate FiO2 01/22/17 14:54 36.9 59 18 147/78 99 Room Air 01/22/17 09:55 Room Air Physical Exam: General- no acute distress Head- atraumatic Eyes- PERRL, EOMI ENT- oropharynx clear Neck- supple, no JVD Lungs- clear to auscultation and percussion Heart- regular rhythm; no murmur Abdomen- hypoactive bowel sound, soft, tenderness in mid abdomen with palpation Extremities- +edema, no calf tenderness, RLE erythema with demarcation Neuro- alert, oriented x 3; PERRL, EOMI Skin- warm & dry Laboratory Results: Last 24 Hours Test 01/21/17 23:54 01/22/17 06:10 Prothrombin Time 11.5 SECONDS Prothromb Time International Ratio 1.1 Sodium Level 144 mmol/L 144 mmol/L Potassium Level 3.7 mmol/L 4.2 mmol/L Chloride Level 111 mmol/L 111 mmol/L Carbon Dioxide Level 23 mmol/L 22 mmol/L Anion Gap 10.0 mmol/L 11.0 mmol/L Blood Urea Nitrogen 13 mg/dl 14 mg/dl Creatinine 0.97 mg/dl 1.20 mg/dl Est Creatinine Clear Calc Drug Dose 74.4 ml/min 60.2 ml/min Estimated GFR () 95.2 73.6 Estimated GFR (Non- 82.2 63.5 BUN/Creatinine Ratio 13.3 11.8 Random Glucose 90 mg/dl 83 mg/dl Calcium Level 8.4 mg/dl 8.4 mg/dl Magnesium Level 1.8 mg/dl Total Bilirubin 2.2 mg/dl 1.5 mg/dl Aspartate Amino Transf (AST/SGOT) 105 U/L 127 U/L Alanine Aminotransferase (ALT/SGPT) 47 U/L 64 U/L Alkaline Phosphatase 591 U/L 630 U/L Total Protein 6.9 gm/dl 6.9 gm/dl Albumin 3.1 gm/dl 2.9 gm/dl Globulin 3.8 gm/dl 4.0 gm/dl Albumin/Globulin Ratio 0.8 0.7 Lipase 7901 U/L 5280 U/L White Blood Count 8.36 K/uL Red Blood Count 4.14 M/uL Hemoglobin 11.3 g/dL Hematocrit 35.9 % Mean Corpuscular Volume 86.7 fL Mean Corpuscular Hemoglobin 27.3 pg Mean Corpuscular Hemoglobin Concent 31.5 g/dl Platelet Count 234 K/uL Mean Platelet Volume 9.8 fL Neutrophils (%) (Auto) 95.6 % Lymphocytes (%) (Auto) 3.6 % Monocytes (%) (Auto) 0.4 % Eosinophils (%) (Auto) 0.2 % Basophils (%) (Auto) 0.1 % Neutrophils # (Auto) 7.99 K/uL Lymphocytes # (Auto) 0.30 K/uL Monocytes # (Auto) 0.03 K/uL Eosinophils # (Auto) 0.02 K/uL Basophils # (Auto) 0.01 K/uL RDW Standard Deviation 46.4 fL RDW Coefficient of Variation 14.5 % Immature Granulocyte % (Auto) 0.1 % Immature Granulocyte # (Auto) 0.01 K/uL Assessment & Plan Recurrent Acute Pancreatitis - CT abdomen noted; (+) CBD and hepatic duct dilatation - may have passed a stone, cannot rule out pancreatic mass or stricture - given aggressive IV fluids and made NPO - Lipase level improved from 4900 to 2000--> normal today 300s - decreased IV fluids -GI consulted, patient declining MRCP at this time 01/21 -Still refused to start on IVF - Lipase increased today - Continue conservative management - Continue clear liquid diet - repeat lab in am - continue monitor 01/22 Lipase increased to 7K last night and dropped to 5K MRCP order, pt still refused to get the MRCP Risks discussed with pt for not getting the MRCP Was started on Zosyn last night symptoms improved wants to start on clear liquid diet Continue IVF Right Lower Leg Ulcers, Cellulitis-recurrent Chronic Right Lower Extremity Edema/Lymphedema Chronic Skin changes - wound cultures: Enterobacter, staph, corynebacterium - blood cultures negative -ID consulted and appreciate input - Wound care consult on board -Antibiotic has been changed to Unasyn from 01/10/17 -likely to continue IV antibiotic till wound is reasonably better -Course of antibiotic needs to be finished -needs to stay a few more days in hospital -Did not get any antibiotic over the WE -Will continue IV abx while inpatient since pt will not take abx once discharge - From ID standpoint ok to discharge on the weekend - Continue IV abx until discharge since pt refused po abx upon discharge - Leg is looking much better - Abx was changed last night to Zosyn due to the pancreatitis Fall secondary to lethargy -likely secondary to dehydration,hypotension and infection - presenting chief complaint at the ER -CT head: negative - blood cultures: negative -getting PT/OT -ambulating well without any difficulty -Stable Hypertension -Elevated secondary to noncompliance -Consider to increase lisinopril from 10mg to 20mg daily -Stable hx testicular CA sp surgery Chronic anemia, hg at baseline H/O DVT as per records, px off anticoag 2 to homelessness Schizophrenia as per records No acute symptoms DVT prophylaxis Heparin subq CODE STATUS FULL CODE Consultants: ID Gastro Current Inpatient Medications: Current Inpatient Medications Medications (Trade) Dose Ordered Sig/Marilyn Route Start Time Stop Time Status Last Admin Dose Admin Acetaminophen (Tylenol Tab) 650 mg Q4H PRN PO 01/03/17 05:15 02/02/17 05:14 Ondansetron HCl (Zofran Inj) 4 mg Q6H PRN IV 01/03/17 05:15 02/02/17 05:14 01/21/17 16:45 4 MG Miscellaneous (Iv Fluids Completed) 1 ea PRN PRN N/A 01/03/17 05:45 01/03/18 05:44 Clonidine HCl (Catapres Tab) 0.1 mg Q6H PRN PO 01/03/17 09:15 02/02/17 09:14 01/21/17 15:25 0.1 MG Lisinopril (Zestril Tab) 10 mg QAM PO 01/06/17 08:00 02/05/17 07:59 01/22/17 08:00 10 MG Heparin Sodium (Porcine) (Heparin Sq 5000 Unit/0.5ml) 5,000 unit Q8 SQ 01/05/17 22:00 02/04/17 21:59 Tramadol HCl (Ultram Tab) not relieved by tylenol @ Q6H PRN PO 01/06/17 05:15 02/05/17 05:14 01/21/17 21:31 50 MG Al Hydrox/Mg Hydrox/ Simethicone 30 ml 30 ml Q6H PRN PO 01/07/17 09:45 02/06/17 09:44 Promethazine HCl/ Sodium Chloride (Phenergan Inj/ Nss 50ml) 50.5 ml @ 204 mls/hr Q6H PRN IV 01/14/17 18:00 02/13/17 17:59 01/22/17 01:11 204 MLS/HR Hydromorphone HCl (Dilaudid Inj) 1 mg Q2H PRN IV 01/21/17 21:15 02/04/17 21:14 01/22/17 01:56 1 MG Tramadol HCl (Ultram Tab) not relieved by tylenol @ Q6H PRN PO 01/21/17 21:15 02/20/17 21:14 Oxycodone/ Acetaminophen (Percocet 5-325mg Tab) `1-2 tabs for pain 1 tab ... Q6H PRN PO 01/21/17 21:15 02/04/17 21:14 Ioversol (Optiray 320) 125 ml UD PRN IV 01/21/17 21:30 01/25/17 21:29 Piperacillin Sod/ Tazobactam Sod 1 ea 1 ea UD PRN N/A 01/22/17 08:00 02/21/17 07:59 Piperacillin Sod/ Tazobactam Sod 3.375 gm/Dextrose 115 ml @ 28.75 mls/ hr Q8H IV 01/22/17 06:00 02/01/17 05:59 01/22/17 13:55 28.75 MLS/HR Potassium Chloride/Sodium Chloride (1/2 Nss + 20meq KCl 1000ml) 1,000 ml @ 150 mls/hr Q6H40M IV 01/22/17 02:00 02/21/17 01:59 01/22/17 17:35 150 MLS/HR
[2017-01-22 23:44] VITALS: BP 131/68; PULSE 56; TEMP 37; O2SAT 96
[2017-01-23] MEDS: HEPARIN SOD 5000 UNIT/0.5 ML CARP SQ SCH ×3 (06:00→21:52)
[2017-01-23] MEDS: PIPERACILL/TAZOBAC IV 3.375 GM in DEXTROSE 5% 100ML IV SCH ×3 (06:20→21:50)
[2017-01-23 07:20] VITALS: BP_SYST 188; BP_SYST 196; BP_DIAS 101; BP_DIAS 80; PULSE 50; TEMP 36.8; O2SAT 99
[2017-01-23] MEDS: LISINOPRIL 10 MG TAB PO SCH (07:52)
[2017-01-23 08:01] LABS: BUN/CREATININE RATIO 12.9 (10-20); CALCIUM 8.2 mg/dl (8.5-10.1); CREATININE 1.1 mg/dl (0.60-1.40); POTASSIUM 3.7 mmol/L (3.5-5.1)
[2017-01-23 08:14] LABS: ALB/GLOB RATIO 0.7 (0.9-2)
[2017-01-23 09:05] VITALS: BP 168/83; O2SAT 98
[2017-01-23 10:03] LABS: HEMATOCRIT 32.3 % (42-52); MEAN CELL VOLUME 86.1 fL (80-100); MEAN CORPUSCULAR HEMOGLOBIN 27.5 pg (25-34); MEAN CORPUSCULAR HGB CONC 31.9 g/dl (32-36); MEAN PLATELET VOLUME 9.5 fL (7.4-10.4); PLATELET COUNT 189 K/uL (130-400); RED BLOOD COUNT 3.75 M/uL (4.7-6.1); WHITE BLOOD COUNT 3.25 K/uL (4.8-10.8)
[2017-01-23] MEDS: SODIUM CHLOR 0.45% + 20MEQ KCL 1,000 ML IV SCH ×2 (10:37→19:58)
--- NOTE | 2017-01-23 12:33 | Infectious Disease Progress Nt ---
Progress Note Date of Service Jan 23, 2017. Subjective Pt evaluation today including: conversation w/ patient, physical exam, chart review, lab review, review of studies, review of inpatient medication list WBC count this morning was 3.25. Noted that his lipase increased to 7901 over the weekend, down to [address] this morning. Repeat abdominal CT scan showed dilatation of the pancreatic and biliary ducts, and noted concern for biliary obstruction. ERCP was recommended. Noted that infection of the biliary tree could not be excluded. Acute pancreatitis versus duodenitis/biliary obstruction was also noted. Gallbladder was also distended. The patient continues to refuse ERCP, MRCP, or other interventions. He was changed from IV Unasyn to IV Zosyn over the weekend due to concern for biliary tree infection. All Other Systems: Reviewed and Negative Medications Current Inpatient Medications Medications (Trade) Dose Ordered Sig/Marilyn Route Start Time Stop Time Status Last Admin Dose Admin Acetaminophen (Tylenol Tab) 650 mg Q4H PRN PO 01/03/17 05:15 02/02/17 05:14 Ondansetron HCl (Zofran Inj) 4 mg Q6H PRN IV 01/03/17 05:15 02/02/17 05:14 01/21/17 16:45 4 MG Miscellaneous (Iv Fluids Completed) 1 ea PRN PRN N/A 01/03/17 05:45 01/03/18 05:44 Clonidine HCl (Catapres Tab) 0.1 mg Q6H PRN PO 01/03/17 09:15 02/02/17 09:14 01/21/17 15:25 0.1 MG Lisinopril (Zestril Tab) 10 mg QAM PO 01/06/17 08:00 02/05/17 07:59 01/23/17 07:52 10 MG Heparin Sodium (Porcine) (Heparin Sq 5000 Unit/0.5ml) 5,000 unit Q8 SQ 01/05/17 22:00 02/04/17 21:59 Tramadol HCl (Ultram Tab) not relieved by tylenol @ Q6H PRN PO 01/06/17 05:15 02/05/17 05:14 01/21/17 21:31 50 MG Al Hydrox/Mg Hydrox/ Simethicone 30 ml 30 ml Q6H PRN PO 01/07/17 09:45 02/06/17 09:44 Promethazine HCl/ Sodium Chloride (Phenergan Inj/ Nss 50ml) 50.5 ml @ 204 mls/hr Q6H PRN IV 01/14/17 18:00 02/13/17 17:59 01/22/17 01:11 204 MLS/HR Hydromorphone HCl (Dilaudid Inj) 1 mg Q2H PRN IV 01/21/17 21:15 02/04/17 21:14 01/22/17 21:33 1 MG Tramadol HCl (Ultram Tab) not relieved by tylenol @ Q6H PRN PO 01/21/17 21:15 02/20/17 21:14 Oxycodone/ Acetaminophen (Percocet 5-325mg Tab) `1-2 tabs for pain 1 tab ... Q6H PRN PO 01/21/17 21:15 02/04/17 21:14 Ioversol (Optiray 320) 125 ml UD PRN IV 01/21/17 21:30 01/25/17 21:29 Piperacillin Sod/ Tazobactam Sod 1 ea 1 ea UD PRN N/A 01/22/17 08:00 02/21/17 07:59 Piperacillin Sod/ Tazobactam Sod 3.375 gm/Dextrose 115 ml @ 28.75 mls/ hr Q8H IV 01/22/17 06:00 02/01/17 05:59 01/23/17 06:20 28.75 MLS/HR Potassium Chloride/Sodium Chloride (1/2 Nss + 20meq KCl 1000ml) 1,000 ml @ 100 mls/hr Q10H IV 01/22/17 02:00 02/21/17 01:59 01/23/17 10:37 100 MLS/HR Objective Vital Signs Date Time Temp Pulse Resp B/P Pulse Ox O2 Delivery O2 Flow Rate FiO2 01/23/17 09:05 16 168/83 98 Room Air 01/23/17 08:30 Room Air 01/23/17 07:20 36.8 50 18 196/80 99 Room Air 188/101 01/23/17 00:00 Room Air 01/22/17 23:44 37.0 56 18 131/68 96 Room Air 01/22/17 20:00 Room Air 01/22/17 15:50 Room Air 01/22/17 14:54 36.9 59 18 147/78 99 Room Air Physical Exam General Appearance: no apparent distress, + thin Eyes: normal inspection, sclerae normal ENT: hearing grossly normal Neck: supple Respiratory/Chest: no respiratory distress, no accessory muscle use Cardiovascular: + bradycardia Extremities: + pertinent finding (chronic lymphedema changes RLE. Dressing in place, c/d/i) Neurologic/Psychiatric: alert, normal mood/affect Skin: warm/dry, no rash Laboratory Results CT SCAN OF THE ABDOMEN AND PELVIS WITH IV CONTRAST CLINICAL HISTORY: Generalized abdominal pain. . COMPARISON STUDY: Prior abdominal CT scans, most recently dated 01/07/2017. TECHNIQUE: Following the IV administration of 115 cc of Optiray 320, CT scan of the abdomen and pelvis is performed from the lung bases to the proximal femora. Images are reviewed in the axial, sagittal, and coronal planes. IV contrast was administered without complication. Automated dose control exposure was utilized. CT DOSE: 253.96 mGy.cm FINDINGS: Lung bases: The heart is mildly enlarged and there is trace pericardial effusion. Emphysematous change is seen at the lung bases. There is bibasilar scarring versus atelectasis. No airspace consolidation is seen typical for pneumonia and no pleural effusion is identified. There is a tiny hiatal hernia. Liver: The contrast-enhanced liver is normal in size, contour, and attenuation. Focal fatty infiltration is seen adjacent to the falciform ligament. There is moderate intrahepatic biliary ductal dilatation, similar to the 01/07/2017 examination. The hepatic veins and portal veins are patent. Gallbladder: The gallbladder is markedly distended and appears mildly thick-walled and edematous. The common bile duct measures up to 14 mm in diameter. The common bile duct as well as the central intrahepatic ducts appear mildly thick-walled and hyperemic. Spleen: Normal in size and attenuation. Pancreas: There is mild to moderate glandular atrophy of the pancreas. The pancreatic duct is top normal measuring up to 3 mm. Adrenal glands: Unremarkable. Kidneys: There is markedly asymmetric cortical atrophy of the right kidney as compared to left. Foci of cortical scarring are seen throughout the right kidney and in the left lower pole. No hydronephrosis is seen. The kidneys enhance symmetrically. Abdominal vasculature: The abdominal aorta is normal in course and caliber noting advanced atherosclerotic calcification. 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 There are large azygos and hemiazygos veins which likely represent collateral circulation. This is similar to prior studies. Stomach and bowel: There is a small hiatal hernia. The stomach and duodenum otherwise normal in configuration. Wall thickening and hyperemia is identified in the distal stomach and proximal duodenum. There is periduodenal inflammation with extension the nella hepatis to the pancreatic head. No bowel obstruction is seen. There is moderate colonic fecal retention. The appendix is not identified and reported surgically absent. Peritoneum: There is no intraperitoneal free air or abdominal ascites. Omental collateral vessels are identified. Lymphadenopathy: None. Pelvic viscera: The bladder wall appears thickened comment irregular, and mildly hyperemic. Mild pericystic inflammation is noted. The prostate and seminal vesicles are normal as visualized. Induration is again noted in the right groin with venous collaterals. Some of this may be related to related to previous surgery. Skeletal structures: The skeletal structures are osteopenic. No lytic or blastic lesions are seen. Mild lumbosacral spondylosis is observed. There is near-complete fusion of the right sacroiliac joint. Chronic deformity of the bony pelvis may be related to remote trauma. Soft tissues: The patient is cachectic. There is mild body wall edema. Caput medusa are noted. IMPRESSION: 1. There is moderate intra and extrahepatic biliary ductal dilatation as well as mild dilatation of the pancreatic duct. The intrahepatic ducts appear mildly thick-walled and hyperemic. The appearance is highly concerning for biliary obstruction. A mass lesion would be impossible to exclude. GI consultation and ERCP is recommended for further assessment if not already performed. Infection of the biliary tree be impossible to exclude by imaging. 2. Wall thickening and hyperemia is seen in the distal stomach and proximal duodenum. There is surrounding inflammatory change which extends from the nella hepatis to the pancreatic head. This could be related to biliary obstruction, or could reflect acute pancreatitis and/or duodenitis. Correlation with clinical laboratory findings will be required. 3. The gallbladder is distended, thick-walled, and edematous. This is similar to the 01/07/2017 examination. Acute cholecystitis is not excluded. 4. 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 5. Cardiomegaly. 6. Numerous additional chronic changes as above. Last 24 Hours Test 01/23/17 06:44 White Blood Count 3.25 K/uL Red Blood Count 3.75 M/uL Hemoglobin 10.3 g/dL Hematocrit 32.3 % Mean Corpuscular Volume 86.1 fL Mean Corpuscular Hemoglobin 27.5 pg Mean Corpuscular Hemoglobin Concent 31.9 g/dl RDW Standard Deviation 47.0 fL RDW Coefficient of Variation 14.9 % Platelet Count 189 K/uL Mean Platelet Volume 9.5 fL Sodium Level 142 mmol/L Potassium Level 3.7 mmol/L Chloride Level 109 mmol/L Carbon Dioxide Level 20 mmol/L Anion Gap 13.0 mmol/L Blood Urea Nitrogen 14 mg/dl Creatinine 1.10 mg/dl Est Creatinine Clear Calc Drug Dose 65.6 ml/min Estimated GFR () 81.8 Estimated GFR (Non- 70.6 BUN/Creatinine Ratio 12.9 Random Glucose 76 mg/dl Calcium Level 8.2 mg/dl Total Bilirubin 0.8 mg/dl Aspartate Amino Transf (AST/SGOT) 45 U/L Alanine Aminotransferase (ALT/SGPT) 37 U/L Alkaline Phosphatase 453 U/L Total Protein 6.5 gm/dl Albumin 2.6 gm/dl Globulin 3.9 gm/dl Albumin/Globulin Ratio 0.7 Lipase 276 U/L Assessment and Plan Patient with chronic lymphedema and wound infection with surrounding cellulitis of the right lower extremity. He is currently on IV Zosyn for concerns of biliary tree infection. Ideally, would evaluate with ERCP to R/O biliary tree infection. Otherwise, patient likely should complete approximately 7 days of therapy. Will continue to follow medicine and GI opinion regarding this patient. Case reviewed and agree with above assessment.
[2017-01-23] MEDS: CLONIDINE HCL 0.1 MG TAB PO PRN (14:41)
[2017-01-23 15:05] VITALS: BP 184/94; PULSE 46; TEMP 36.4; O2SAT 99
--- NOTE | 2017-01-23 15:52 | Progress Note ---
Medicine Progress Note Date & Time of Visit: Jan 23, 2017 at 15:43. Subjective Pt was seen and examined lying in bed with no distress Pt said that he feels better this morning He said that his abdominal pain improved. he denies chest pain, palpitation , nausea and dizziness Pt has been refused IVF and imaging for to help manage his pancreatitis Discussed with patient about refused imaging and IVF can worsening his pancreatitis and can lead to jacinto He is very paranoid. he thinks that there is something wrong with the room Objective Last 8 Hrs Date Time Temp Pulse Resp B/P Pulse Ox O2 Delivery O2 Flow Rate FiO2 01/23/17 15:05 36.4 46 22 184/94 99 Room Air 01/23/17 09:05 16 168/83 98 Room Air 01/23/17 08:30 Room Air Physical Exam: General- no acute distress Head- atraumatic Eyes- PERRL, EOMI ENT- oropharynx clear Neck- supple, no JVD Lungs- clear to auscultation and percussion Heart- regular rhythm; no murmur Abdomen- soft, very mild tenderness with palpation deep palpitation Extremities- +edema, no calf tenderness, RLE erythema with demarcation Neuro- alert, oriented, PERRL, EOMI Skin- warm & dry Laboratory Results: Last 24 Hours Test 01/23/17 06:44 White Blood Count 3.25 K/uL Red Blood Count 3.75 M/uL Hemoglobin 10.3 g/dL Hematocrit 32.3 % Mean Corpuscular Volume 86.1 fL Mean Corpuscular Hemoglobin 27.5 pg Mean Corpuscular Hemoglobin Concent 31.9 g/dl RDW Standard Deviation 47.0 fL RDW Coefficient of Variation 14.9 % Platelet Count 189 K/uL Mean Platelet Volume 9.5 fL Sodium Level 142 mmol/L Potassium Level 3.7 mmol/L Chloride Level 109 mmol/L Carbon Dioxide Level 20 mmol/L Anion Gap 13.0 mmol/L Blood Urea Nitrogen 14 mg/dl Creatinine 1.10 mg/dl Est Creatinine Clear Calc Drug Dose 65.6 ml/min Estimated GFR () 81.8 Estimated GFR (Non- 70.6 BUN/Creatinine Ratio 12.9 Random Glucose 76 mg/dl Calcium Level 8.2 mg/dl Total Bilirubin 0.8 mg/dl Aspartate Amino Transf (AST/SGOT) 45 U/L Alanine Aminotransferase (ALT/SGPT) 37 U/L Alkaline Phosphatase 453 U/L Total Protein 6.5 gm/dl Albumin 2.6 gm/dl Globulin 3.9 gm/dl Albumin/Globulin Ratio 0.7 Lipase 276 U/L Assessment & Plan Recurrent Acute Pancreatitis - CT abdomen noted; (+) CBD and hepatic duct dilatation - may have passed a stone, cannot rule out pancreatic mass or stricture - given aggressive IV fluids and made NPO - Lipase level improved from 4900 to 2000--> normal today 300s - decreased IV fluids -GI consulted, patient declining MRCP at this time 01/21 -Still refused to start on IVF - Lipase increased today - Continue conservative management - Continue clear liquid diet - repeat lab in am - continue monitor 01/22 Lipase increased to 7K last night and dropped to 5K MRCP order, pt still refused to get the MRCP Risks discussed with pt for not getting the MRCP Was started on Zosyn last night symptoms improved wants to start on clear liquid diet refused IVF 01/23 Symptoms improved Lipase came down to normal Refused MRCP Has been refused IVF He understands the risks and complications for not getting IVF and imaging Discussed with him for refusing appropriate treatment that can lead to sepsis and Continue abx Right Lower Leg Ulcers, Cellulitis-recurrent Chronic Right Lower Extremity Edema/Lymphedema Chronic Skin changes - wound cultures: Enterobacter, staph, corynebacterium - blood cultures negative -ID consulted and appreciate input - Wound care consult on board -Antibiotic has been changed to Unasyn from 01/10/17 -likely to continue IV antibiotic till wound is reasonably better -Course of antibiotic needs to be finished -needs to stay a few more days in hospital -Did not get any antibiotic over the WE -Will continue IV abx while inpatient since pt will not take abx once discharge - From ID standpoint ok to discharge on the weekend - Continue IV abx until discharge since pt refused po abx upon discharge - Leg is looking much better - Abx was changed last night to Zosyn due to the pancreatitis - Continue abx. Fall secondary to lethargy -likely secondary to dehydration,hypotension and infection - presenting chief complaint at the ER -CT head: negative - blood cultures: negative -getting PT/OT -ambulating well without any difficulty -Stable Hypertension -Elevated secondary to noncompliance -Consider to increase lisinopril from 10mg to 20mg daily -Stable hx testicular CA sp surgery Chronic anemia, hg at baseline H/O DVT as per records, px off anticoag 2 to homelessness Schizophrenia as per records paranoid Refused appropriate medical management will consult psych DVT prophylaxis Heparin subq CODE STATUS FULL CODE Consultants: ID Gastro Current Inpatient Medications: Current Inpatient Medications Medications (Trade) Dose Ordered Sig/Marilyn Route Start Time Stop Time Status Last Admin Dose Admin Acetaminophen (Tylenol Tab) 650 mg Q4H PRN PO 01/03/17 05:15 02/02/17 05:14 Ondansetron HCl (Zofran Inj) 4 mg Q6H PRN IV 01/03/17 05:15 02/02/17 05:14 01/21/17 16:45 4 MG Miscellaneous (Iv Fluids Completed) 1 ea PRN PRN N/A 01/03/17 05:45 01/03/18 05:44 Clonidine HCl (Catapres Tab) 0.1 mg Q6H PRN PO 01/03/17 09:15 02/02/17 09:14 01/23/17 14:41 0.1 MG Lisinopril (Zestril Tab) 10 mg QAM PO 01/06/17 08:00 02/05/17 07:59 01/23/17 07:52 10 MG Heparin Sodium (Porcine) (Heparin Sq 5000 Unit/0.5ml) 5,000 unit Q8 SQ 01/05/17 22:00 02/04/17 21:59 Tramadol HCl (Ultram Tab) not relieved by tylenol @ Q6H PRN PO 01/06/17 05:15 02/05/17 05:14 01/21/17 21:31 50 MG Al Hydrox/Mg Hydrox/ Simethicone 30 ml 30 ml Q6H PRN PO 01/07/17 09:45 02/06/17 09:44 Promethazine HCl/ Sodium Chloride (Phenergan Inj/ Nss 50ml) 50.5 ml @ 204 mls/hr Q6H PRN IV 01/14/17 18:00 02/13/17 17:59 01/22/17 01:11 204 MLS/HR Hydromorphone HCl (Dilaudid Inj) 1 mg Q2H PRN IV 01/21/17 21:15 02/04/17 21:14 01/22/17 21:33 1 MG Tramadol HCl (Ultram Tab) not relieved by tylenol @ Q6H PRN PO 01/21/17 21:15 02/20/17 21:14 Oxycodone/ Acetaminophen (Percocet 5-325mg Tab) `1-2 tabs for pain 1 tab ... Q6H PRN PO 01/21/17 21:15 02/04/17 21:14 Ioversol (Optiray 320) 125 ml UD PRN IV 01/21/17 21:30 01/25/17 21:29 Piperacillin Sod/ Tazobactam Sod 1 ea 1 ea UD PRN N/A 01/22/17 08:00 02/21/17 07:59 Piperacillin Sod/ Tazobactam Sod 3.375 gm/Dextrose 115 ml @ 28.75 mls/ hr Q8H IV 01/22/17 06:00 02/01/17 05:59 01/23/17 14:00 28.75 MLS/HR Potassium Chloride/Sodium Chloride (1/2 Nss + 20meq KCl 1000ml) 1,000 ml @ 100 mls/hr Q10H IV 01/22/17 02:00 02/21/17 01:59 01/23/17 10:37 100 MLS/HR
[2017-01-23] MEDS: HYDROmorphone INJ 1 MG/ML SYR IV PRN (21:51)
[2017-01-23 23:11] VITALS: BP 144/80; PULSE 46; TEMP 36.7; O2SAT 97
[2017-01-24] MEDS: HEPARIN SOD 5000 UNIT/0.5 ML CARP SQ SCH ×3 (06:00→22:00)
[2017-01-24] MEDS: SODIUM CHLOR 0.45% + 20MEQ KCL 1,000 ML IV SCH ×2 (06:20→16:54)
[2017-01-24] MEDS: PIPERACILL/TAZOBAC IV 3.375 GM in DEXTROSE 5% 100ML IV SCH ×3 (06:20→22:33)
[2017-01-24 06:59] LABS: HEMATOCRIT 31.1 % (42-52); MEAN CELL VOLUME 83.8 fL (80-100); MEAN CORPUSCULAR HEMOGLOBIN 27.2 pg (25-34); MEAN CORPUSCULAR HGB CONC 32.5 g/dl (32-36); MEAN PLATELET VOLUME 9.3 fL (7.4-10.4); PLATELET COUNT 184 K/uL (130-400); RED BLOOD COUNT 3.71 M/uL (4.7-6.1)
[2017-01-24 07:17] VITALS: BP_SYST 189; BP_SYST 190; BP_DIAS 98; PULSE 44; TEMP 36.6; O2SAT 98
[2017-01-24 07:28] LABS: BUN/CREATININE RATIO 11.8 (10-20); CALCIUM 8.3 mg/dl (8.5-10.1); CREATININE 0.93 mg/dl (0.60-1.40); POTASSIUM 3.8 mmol/L (3.5-5.1)
[2017-01-24 07:31] LABS: ALB/GLOB RATIO 0.7 (0.9-2)
[2017-01-24] MEDS: LISINOPRIL 10 MG TAB PO SCH (08:03)
[2017-01-24] MEDS: CLONIDINE HCL 0.1 MG TAB PO PRN ×2 (08:03→14:04)
[2017-01-24 14:00] VITALS: BP 197/111; PULSE 48; TEMP 36.7; O2SAT 97
--- NOTE | 2017-01-24 14:33 | Psychiatric Progress Notes ---
Psychiatric Progress Note Date of Service Jan 24, 2017. Notes Consult requested for capacity to make medical decisions. Prior to being able to do such a consult we will need documentation that the patient has been told what the recommended treatment is, the consequences of refusing it. Dr. Meme giles.
[2017-01-24 16:54] VITALS: BP 189/94
--- NOTE | 2017-01-24 17:51 | Progress Note ---
Internal Med Progress Note Date of Service: Jan 24, 2017. Provider Documentation: SUBJECTIVE: Pt was seen and examined who is lying in bed with no distress Pt said that he feels better this morning. He said that his abdominal pain has improved. Denies chest pain/pressure, palpitation , nausea and dizziness Pt has been refused IVF and imaging for to help manage his pancreatitis Discussed with patient about refused imaging and IVF can worsening his pancreatitis. He is very paranoid & thinks that there is something wrong with the room OBJECTIVE: Vital Signs-as noted below Examination: General- Alert/Awake, paranoid but in no acute distress Head- atraumatic Eyes- PERRL, EOMI ENT- oropharynx clear Neck- supple, midline trachea,no JVD Lungs- B/l Clear to auscultation. Heart- regular rhythm; no murmur Abdomen- soft, very mild tenderness with palpation deep palpitation Extremities- +edema, no calf tenderness, RLE erythema with demarcation Neuro- alert, oriented, PERRL, EOMI Skin- warm & dry Lab data as noted below. ASSESSMENT & PLAN: Recurrent Acute Pancreatitis: Cinically doing well. Pain sadie now and has been tolerating oral intake. CT abdomen noted; (+) CBD and hepatic duct dilatation & he may have passed a stone, cannot rule out pancreatic mass or stricture Refusing MRCP despite repeated discussions. -Lipase level is back to normal now. -GI consulted, patient declining MRCP at this time Right Lower Leg Ulcers, Cellulitis-recurrent with Chronic Right Lower Extremity Edema/Lymphedema Chronic Skin changes -Wound cultures: Enterobacter, staph, corynebacterium -Blood cultures are negative -ID consulted and appreciate input -Wound care has been following the patient. -Has been on antibiotics for about 2 weeks so have stopped Zosyn today. S/P Fall secondary to Lethargy: Likely secondary to dehydration,hypotension and infection Presenting chief complaint at the ER -CT head: negative -Blood cultures: negative -Getting PT/OT -Ambulating well without any difficulty Hypertension: Elevated secondary to noncompliance -Increased lisinopril from 10mg to 20mg daily History Testicular CA s/p surgery. Stable. Chronic Anemia: Stable and is at baseline. H/O DVT as per records. Patient is off anticoagulants being homelessness Schizophrenia(Paranoid): Refused appropriate medical management -Counselled again DVT Prophylaxis: Sq Heparin Code Status: FULL CODE Vital Signs: Date Time Temp Pulse Resp B/P Pulse Ox O2 Delivery O2 Flow Rate FiO2 01/25/17 14:52 36.7 47 20 166/83 96 Room Air 175/86 01/25/17 08:03 Room Air 01/25/17 07:00 36.8 42 20 175/84 93 Room Air 01/25/17 01:10 Room Air 01/25/17 00:10 36.9 47 18 125/72 98 Room Air 01/24/17 20:00 Room Air 01/24/17 16:54 189/94 01/24/17 16:30 Room Air Lab Results: Results Past 24 Hours Test 01/25/17 05:35 Range/Units White Blood Count 2.00 4.8-10.8 K/uL Red Blood Count 3.79 4.7-6.1 M/uL Hemoglobin 10.3 14.0-18.0 g/dL Hematocrit 32.4 42-52 % Mean Corpuscular Volume 85.5 80-100 fL Mean Corpuscular Hemoglobin 27.2 25-34 pg Mean Corpuscular Hemoglobin Concent 31.8 32-36 g/dl Platelet Count 177 130-400 K/uL Mean Platelet Volume 9.6 7.4-10.4 fL Neutrophils (%) (Auto) 64.5 % Lymphocytes (%) (Auto) 19.5 % Monocytes (%) (Auto) 7.5 % Eosinophils (%) (Auto) 8.0 % Basophils (%) (Auto) 0.5 % Neutrophils # (Auto) 1.29 1.4-6.5 K/uL Lymphocytes # (Auto) 0.39 1.2-3.4 K/uL Monocytes # (Auto) 0.15 0.11-0.59 K/uL Eosinophils # (Auto) 0.16 0-0.5 K/uL Basophils # (Auto) 0.01 0-0.2 K/uL RDW Standard Deviation 46.9 36.4-46.3 fL RDW Coefficient of Variation 14.9 11.5-14.5 % Immature Granulocyte % (Auto) 0.0 % Immature Granulocyte # (Auto) 0.00 0.00-0.02 K/uL Sodium Level 143 136-145 mmol/L Potassium Level 3.8 3.5-5.1 mmol/L Chloride Level 110 98-107 mmol/L Carbon Dioxide Level 24 21-32 mmol/L Anion Gap 9.0 3-11 mmol/L Blood Urea Nitrogen 10 7-18 mg/dl Creatinine 1.10 0.60-1.40 mg/dl Est Creatinine Clear Calc Drug Dose 65.6 ml/min Estimated GFR () 81.8 Estimated GFR (Non- 70.6 BUN/Creatinine Ratio 9.0 10-20 Random Glucose 89 70-99 mg/dl Calcium Level 8.4 8.5-10.1 mg/dl Lipase 388 73-393 U/L
[2017-01-24] MEDS: FAMOTIDINE IV INJ 20 MG in DEXTROSE 5% 100ML 100 ML IV SCH (18:29)
[2017-01-24] MEDS: DOCUSATE SODIUM 100 MG CAP PO SCH (19:47)
[2017-01-24] MEDS ORDERED: HYDROmorphone INJ 1 MG/ML SYR IV PRN (20:00)
[2017-01-24] MEDS: ONDANSETRON INJ 2 MG/ML 2 ML VIAL IV PRN (22:34)
[2017-01-25 00:10] VITALS: BP 125/72; PULSE 47; TEMP 36.9; O2SAT 98
[2017-01-25] MEDS ORDERED: NURSING VERBAL MED ORDER ONE (05:45)
[2017-01-25] MEDS: FAMOTIDINE IV INJ 20 MG in DEXTROSE 5% 100ML 100 ML IV SCH ×2 (05:59→17:11)
[2017-01-25] MEDS: PIPERACILL/TAZOBAC IV 3.375 GM in DEXTROSE 5% 100ML IV SCH ×2 (05:59→07:20)
[2017-01-25] MEDS: HEPARIN SOD 5000 UNIT/0.5 ML CARP SQ SCH ×2 (06:00→14:00)
[2017-01-25 06:17] LABS: BASO % 0.5 %; BASO ABS # 0.01 K/uL (0-0.2); COMPLETE YES; HEMATOCRIT 32.4 % (42-52); LYMPH % 19.5 %; LYMPH ABS # 0.39 K/uL (1.2-3.4); MEAN CELL VOLUME 85.5 fL (80-100); MEAN CORPUSCULAR HEMOGLOBIN 27.2 pg (25-34); MEAN CORPUSCULAR HGB CONC 31.8 g/dl (32-36); MEAN PLATELET VOLUME 9.6 fL (7.4-10.4); MONO % 7.5 %; NEUT % 64.5 %; PLATELET COUNT 177 K/uL (130-400); RED BLOOD COUNT 3.79 M/uL (4.7-6.1)
[2017-01-25 06:47] LABS: CALCIUM 8.4 mg/dl (8.5-10.1); CREATININE 1.1 mg/dl (0.60-1.40); POTASSIUM 3.8 mmol/L (3.5-5.1)
[2017-01-25 07:00] VITALS: BP 175/84; PULSE 42; TEMP 36.8; O2SAT 93
[2017-01-25] MEDS: DOCUSATE SODIUM 100 MG CAP PO SCH ×2 (08:00→20:00)
[2017-01-25] MEDS: LISINOPRIL 10 MG TAB PO SCH (08:08)
--- NOTE | 2017-01-25 14:01 | CONSULTATION REPORT ---
DATE OF CONSULTATION: 01/25/2017 DATE OF CONSULTATION: 01/25/2017. IDENTIFYING DATA: Mendoza Masterson is a 66-year-old homeless gentleman well known to our facility. He is currently hospitalized with pancreatitis. We are consulted to evaluate patient's capacity to make decisions to refuse his medical treatment. Information is gathered from the patient and the electronic medical record and considered to be reliable. CHIEF COMPLAINT: "I should have been out of here a few days ago." HISTORY OF PRESENT ILLNESS: Mendoza Masterson is a 66-year-old gentleman with past medical history for hypertension, DVT, history of testicular cancer status post surgery, tobacco use, chronic anemia, chronic right lower extremity lymphedema and schizophrenia, who presented to the hospital on 01/07/2017 because of lethargy, having fallen and hit his head. He was admitted for evaluation, later found to have pancreatitis. In the course of treating him, the patient has refused to accept certain recommended treatments including an MRI with MRCP to evaluate the pancreatitis. He has also at times refused IV fluids. At the time I see the patient, he is alert, cooperative. He is fully oriented to person, place, all date parameters and events. He is able to tell me that they are recommending that he have an MRI with MRCP, and that he has been refusing it. He understands that the possible consequences are that his pancreatitis will only continue to get worse making him sicker. He indicates he has some fears about being exposed to the magnetic field of the MRI. This does not appear to be reality based. However, it is persistent and he does not want that exposure. He also goes on to talk about some paranoid ideation about the room next door. Apparently he believes that there was a person in there for several days who was having severe GI problems. He believes that that somehow contaminated his room for several days to the degree that people could not get things in there like a tray or a cart. He cannot further explain this in ways that it make sense, but he says that it has been getting better and clearing up. He does not see a psychiatric provider, denies that he has been abusing any substances. He continues to live on the street by choice saying that he was offered an apartment through [employer] but believed the apartment to be in such poor shape that it would be detrimental to his health. He also has refused to participate in the [employer] program that allows homeless people to sleep in churches as he does not feel comfortable doing that in a sikhism in which he grew up and received his pentecostal. He indicates his mood has been okay, denying depression or suicidality. He denies that he has auditory hallucinations or visual hallucinations. CURRENT MEDICATIONS: 1. Lisinopril 20 mg q. a.m. 2. Percocet 5/325 one tab q. 6 hours p.r.n. moderate pain. 3. Dilaudid 1 mg q. 4 hours for severe pain only. 4. Colace 100 mg b.i.d. 5. Famotidine IV q. 12. 6. Piperacillin/tazobactam. 7. Tramadol p.r.n. 8. Promethazine p.r.n. 9. Heparin. 10. Catapres p.r.n. PAST PSYCHIATRIC HISTORY: The patient is known to have chronic schizophrenia and has never successfully been in extended treatment. He chooses not to take medications and does not want psychiatric outpatient treatment. I do not know at this time whether or not he has had hospitalizations in the past. He denies any suicide attempts. FAMILY HISTORY: Noncontributory at this time. SUBSTANCE USE: The patient says that his last use of alcoholism was last year some time. He says he has only consumed alcohol twice in the last year. He denies the use of street drugs, organic substances, inhalants, abuse of over the counter medicines or prescription medicines. PERSONAL HISTORY: Noncontributory but we certainly know that he is homeless, he survives by living in various places throughout town. He has used some services in the past, but generally accepts and believes that it is safer for him to live on the street than it is for him to live in organized housing. MENTAL STATUS EXAMINATION: A 66-year-old gentleman with long lacy hair and lim, which is clean and recently combed, wearing hospital gown, sitting in his fourth floor bed. He is alert and cooperative with the interview. He makes good eye contact. Motor behavior is unremarkable, and is without abnormal muscle movements. Speech is of normal rate, volume, and tone. Affect is restricted but able to smile. Mood is "okay." Thought process is organized and goal directed. He denies thought disorder in the form of auditory or visual hallucinations but does have paranoid delusions as stated in the HPI. Today, he is fully oriented. Memory functions are intact. Fund of knowledge is intact. Intelligence is estimated to be average. Insight and judgment are limited. VITAL SIGNS: Temp 36.8, pulse 42, respirations 20, blood pressure 175/84, pulse ox 93% on room air. LABORATORIES: 1. CBC with diff -- WBCs low at 2.00, RBCs 3.79, hemoglobin 10.3, hematocrit 32.4. 2. Urinalysis -- appears to be contaminated. 3. Coag studies -- within normal limits. 4. Influenza A and B negative. IMAGIN. Head CT -- no acute intracranial abnormality. 2. Abdomen and pelvis CT -- moderate intra- and extrahepatic biliary ductal dilatation as well as some mild dilatation of the pancreatic duct. The intrahepatic ducts appear mildly thick walled and hyperemic. The appearance is highly concerning for biliary obstruction. A mass lesion would be impossible to exclude. GI consultation and ERCP is recommended for further assessment if not already performed. Infection of biliary tree may be possible to exclude by imaging. Wall thickening and hyperemia is seen in the distal stomach and proximal duodenum. There is surrounding inflammatory change which extends from the nella hepatis to the pancreatic head. This could be related to biliary obstruction or could reflect acute pancreatitis or duodenitis. 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 Cardiomegaly. REVIEW OF SYSTEMS: Positive for ongoing right lower extremity lymphedema with healing wounds, paranoia, abdominal pain. PHYSICAL EXAMINATION: As per Dr. Valentine. IMPRESSION: A 66-year-old gentleman admitted to the hospital with pancreatitis and lethargy. We are consulted to evaluate capacity to make decisions regarding his medical care. The patient has the ability to communicate and understand our conversation. He is able to state the recommended treatments and complications of refusing. He is able to appreciate the meaning of his decisions. He does say that although he is refusing to follow through with the MRCP at this time, if he goes home and his condition worsens, he agrees that he will represent to the Emergency Room and reconsider these tests at that time. He remains paranoid as he has been for many, many years, but I do not believe this is the case in which we could enforce any kind of involuntary treatment. Although his paranoia may be interfering with him making a good decision, it does not appear that the consequences of refusing this test is imminent within the next 30 days in view of the fact that he is agreeing to return to the hospital if things get worse. Therefore, the patient has capacity to make these decisions at this time. This information has been reviewed with Dr. Kadie Davies who is in agreement. Thank you for allowing us to participate in this man's care. MORALES
[2017-01-25 14:52] VITALS: BP_SYST 166; BP_SYST 175; BP_DIAS 83; BP_DIAS 86; PULSE 47; TEMP 36.7; O2SAT 96
--- NOTE | 2017-01-25 16:10 | Progress Note ---
Internal Med Progress Note Date of Service: Jan 25, 2017. Provider Documentation: SUBJECTIVE: Pt was seen and examined who is lying in bed with no distress Pt said that he feels better this morning & denies and abdominal pain/nausea/vomiting. Denies chest pain/pressure, palpitation and dizziness Pt has been refused IVF and imaging for to help manage his pancreatitis He is very paranoid & thinks that there is something wrong with the other room OBJECTIVE: Vital Signs-as noted below Examination: General- Alert/Awake, paranoid but in no acute distress Head- atraumatic Eyes- PERRL, EOMI ENT- oropharynx clear Neck- supple, midline trachea,no JVD Lungs- B/l Clear to auscultation. Heart- regular rhythm; no murmur Abdomen- soft, very mild tenderness with palpation deep palpitation Extremities- +edema, no calf tenderness, RLE erythema with demarcation Neuro- alert, oriented, PERRL, EOMI Skin- warm & dry Lab data as noted below. ASSESSMENT & PLAN: Recurrent Acute Pancreatitis: Clinically doing well. Pain sadie now and has been tolerating oral intake. CT abdomen noted; (+) CBD and hepatic duct dilatation & he may have passed a stone, cannot rule out pancreatic mass or stricture Refusing MRCP despite repeated discussions. -Lipase level is back to normal now. -GI consulted, patient declining MRCP at this time Right Lower Leg Ulcers, Cellulitis-recurrent with Chronic Right Lower Extremity Edema/Lymphedema Chronic Skin changes -Wound cultures: Enterobacter, staph, corynebacterium -Blood cultures are negative -ID consulted and appreciate input -Wound care has been following the patient. -Has been on antibiotics for about 2 weeks so have stopped Zosyn. S/P Fall secondary to Lethargy: Likely secondary to dehydration,hypotension and infection Presenting chief complaint at the ER -CT head: negative -Blood cultures: negative -Getting PT/OT -Ambulating well without any difficulty Hypertension: Elevated secondary to noncompliance -Increased lisinopril from 10mg to 20mg daily History Testicular CA s/p surgery. Stable. Chronic Anemia: Stable and is at baseline. H/O DVT as per records. Patient is off anticoagulants being homelessness Schizophrenia(Paranoid): Refused appropriate medical management -Counselled again DVT Prophylaxis: Sq Heparin Code Status: FULL CODE Vital Signs: Date Time Temp Pulse Resp B/P Pulse Ox O2 Delivery O2 Flow Rate FiO2 3/8/17 14:52 36.7 47 20 166/83 96 Room Air 175/86 01/25/17 08:03 Room Air 01/25/17 07:00 36.8 42 20 175/84 93 Room Air 01/25/17 01:10 Room Air 01/25/17 00:10 36.9 47 18 125/72 98 Room Air 01/24/17 20:00 Room Air 01/24/17 16:54 189/94 01/24/17 16:30 Room Air Lab Results: Results Past 24 Hours Test 01/25/17 05:35 Range/Units White Blood Count 2.00 4.8-10.8 K/uL Red Blood Count 3.79 4.7-6.1 M/uL Hemoglobin 10.3 14.0-18.0 g/dL Hematocrit 32.4 42-52 % Mean Corpuscular Volume 85.5 80-100 fL Mean Corpuscular Hemoglobin 27.2 25-34 pg Mean Corpuscular Hemoglobin Concent 31.8 32-36 g/dl Platelet Count 177 130-400 K/uL Mean Platelet Volume 9.6 7.4-10.4 fL Neutrophils (%) (Auto) 64.5 % Lymphocytes (%) (Auto) 19.5 % Monocytes (%) (Auto) 7.5 % Eosinophils (%) (Auto) 8.0 % Basophils (%) (Auto) 0.5 % Neutrophils # (Auto) 1.29 1.4-6.5 K/uL Lymphocytes # (Auto) 0.39 1.2-3.4 K/uL Monocytes # (Auto) 0.15 0.11-0.59 K/uL Eosinophils # (Auto) 0.16 0-0.5 K/uL Basophils # (Auto) 0.01 0-0.2 K/uL RDW Standard Deviation 46.9 36.4-46.3 fL RDW Coefficient of Variation 14.9 11.5-14.5 % Immature Granulocyte % (Auto) 0.0 % Immature Granulocyte # (Auto) 0.00 0.00-0.02 K/uL Sodium Level 143 136-145 mmol/L Potassium Level 3.8 3.5-5.1 mmol/L Chloride Level 110 98-107 mmol/L Carbon Dioxide Level 24 21-32 mmol/L Anion Gap 9.0 3-11 mmol/L Blood Urea Nitrogen 10 7-18 mg/dl Creatinine 1.10 0.60-1.40 mg/dl Est Creatinine Clear Calc Drug Dose 65.6 ml/min Estimated GFR () 81.8 Estimated GFR (Non- 70.6 BUN/Creatinine Ratio 9.0 10-20 Random Glucose 89 70-99 mg/dl Calcium Level 8.4 8.5-10.1 mg/dl Lipase 388 73-393 U/L
[2017-01-26] VITALS (7 sets, daily range): BP systolic 124–198; BP diastolic 79–99; PULSE 46–61; TEMP 36.5–36.9; O2SAT 97–98
[2017-01-26] MEDS: CLONIDINE HCL 0.1 MG TAB PO PRN (01:37)
[2017-01-26] MEDS: ONDANSETRON INJ 2 MG/ML 2 ML VIAL IV PRN ×2 (03:48→12:41)
[2017-01-26] MEDS: OXYCODONE/ACETAMINOPHEN 5-325 TAB PO PRN ×2 (04:06→12:25)
[2017-01-26] MEDS ORDERED: HydrALAZINE HCL 20 MG/ML VIAL IV. ONE (04:30)
[2017-01-26] MEDS: FAMOTIDINE IV INJ 20 MG in DEXTROSE 5% 100ML 100 ML IV SCH ×2 (06:14→17:34)
[2017-01-26] MEDS: ENOXAPARIN 40 MG/0.4 ML SYR SQ SCH (07:40)
[2017-01-26] MEDS: DOCUSATE SODIUM 100 MG CAP PO SCH ×2 (07:40→20:00)
[2017-01-26] MEDS: LISINOPRIL 10 MG TAB PO SCH (07:42)
[2017-01-26] MEDS ORDERED: BISACODYL 5 MG TABEC PO ONE (14:45)
--- NOTE | 2017-01-26 14:46 | Progress Note ---
Internal Med Progress Note Date of Service: Jan 26, 2017. Provider Documentation: SUBJECTIVE: Pt was seen and examined who is lying in bed with no distress Pt said that he feels better this morning & denies and abdominal pain/nausea/vomiting. Denies chest pain/pressure, palpitation and dizziness. Not eating much. Pt has been refused IVF and imaging for to help manage his pancreatitis He is very paranoid & thinks that there is something wrong with the other room OBJECTIVE: Vital Signs-as noted below Examination: General- Alert/Awake, paranoid but in no acute distress Head- atraumatic Eyes- PERRL, EOMI ENT- oropharynx clear Neck- supple, midline trachea,no JVD Lungs- B/l Clear to auscultation. Heart- regular rhythm; no murmur Abdomen- soft, very mild tenderness with palpation deep palpitation Extremities- +edema, no calf tenderness, RLE erythema with demarcation Neuro- alert, oriented, PERRL, EOMI Skin- warm & dry Lab data as noted below. ASSESSMENT & PLAN: Recurrent Acute Pancreatitis: Clinically doing well. Pain sadie now and has been tolerating oral intake. CT abdomen noted; (+) CBD and hepatic duct dilatation & he may have passed a stone, cannot rule out pancreatic mass or stricture Refusing MRCP despite repeated discussions. -Lipase level is back to normal now. -GI consulted, patient declining MRCP at this time Right Lower Leg Ulcers, Cellulitis-recurrent with Chronic Right Lower Extremity Edema/Lymphedema Chronic Skin changes -Wound cultures: Enterobacter, staph, corynebacterium -Blood cultures are negative -ID consulted and appreciate input -Wound care has been following the patient. -Has been on antibiotics for about 2 weeks so have stopped Zosyn on 01/25/2017. S/P Fall secondary to Lethargy: Likely secondary to dehydration,hypotension and infection Presenting chief complaint at the ER -CT head: negative -Blood cultures: negative -Getting PT/OT but not participating much. -Ambulating well without any difficulty Hypertension: Elevated secondary to noncompliance -Increased lisinopril from 10mg to 20mg daily History Testicular CA s/p surgery. Stable. Chronic Anemia: Stable and is at baseline. H/O DVT as per records. Patient is off anticoagulants being homelessness Schizophrenia(Paranoid): Refused appropriate medical management -Counselled again DVT Prophylaxis: Sq Heparin Code Status: FULL CODE Vital Signs: Date Time Temp Pulse Resp B/P Pulse Ox O2 Delivery O2 Flow Rate FiO2 01/26/17 07:55 Room Air 01/26/17 07:02 36.6 48 18 158/81 97 Room Air 01/26/17 06:19 54 151/79 01/26/17 04:39 50 186/94 01/26/17 04:09 51 198/99 01/26/17 01:33 61 180/86 01/26/17 00:21 36.9 54 18 186/92 98 Room Air 01/26/17 00:00 Room Air 01/25/17 18:54 Room Air 01/25/17 14:52 36.7 47 20 166/83 96 Room Air 175/86
[2017-01-27 00:07] VITALS: BP 148/83; PULSE 55; TEMP 36.4; O2SAT 99
[2017-01-27] MEDS: FAMOTIDINE IV INJ 20 MG in DEXTROSE 5% 100ML 100 ML IV SCH ×2 (05:44→18:25)
[2017-01-27] MEDS: ENOXAPARIN 40 MG/0.4 ML SYR SQ SCH (07:22)
[2017-01-27] MEDS: DOCUSATE SODIUM 100 MG CAP PO SCH ×2 (07:22→19:59)
[2017-01-27] MEDS: LISINOPRIL 10 MG TAB PO SCH (07:30)
[2017-01-27 08:01] VITALS: BP_SYST 181; BP_SYST 189; BP_DIAS 100; BP_DIAS 89; PULSE 52; TEMP 36.8; O2SAT 96
[2017-01-27 08:18] LABS: CREATININE 0.96 mg/dl (0.60-1.40)
[2017-01-27 11:10] VITALS: BP 156/89
--- NOTE | 2017-01-27 14:12 | Progress Note ---
Internal Med Progress Note Date of Service: Jan 27, 2017. Provider Documentation: SUBJECTIVE: Pt was seen and examined who is lying in bed with no distress Pt said that he feels better this morning & denies and abdominal pain/nausea/vomiting. Denies chest pain/pressure, palpitation and dizziness. Not eating much.Pt has been refused IVF and imaging for to help manage his pancreatitis He is very paranoid & thinks that there is something wrong with the other room OBJECTIVE: Vital Signs-as noted below Examination: General- Alert/Awake, paranoid but in no acute distress Head- atraumatic Eyes- PERRL, EOMI ENT- oropharynx clear Neck- supple, midline trachea,no JVD Lungs- B/l Clear to auscultation. Heart- regular rhythm; no murmur Abdomen- soft, very mild tenderness with palpation deep palpitation Extremities- +edema, no calf tenderness, RLE erythema with demarcation Neuro- alert, oriented, PERRL, EOMI Skin- warm & dry Lab data as noted below. ASSESSMENT & PLAN: Recurrent Acute Pancreatitis: Clinically doing well. Pain sadie now and has been tolerating oral intake. CT abdomen noted; (+) CBD and hepatic duct dilatation & he may have passed a stone, cannot rule out pancreatic mass or stricture Refusing MRCP despite repeated discussions. -Lipase level is back to normal now. -GI consulted, patient declining MRCP at this time Right Lower Leg Ulcers, Cellulitis-recurrent with Chronic Right Lower Extremity Edema/Lymphedema Chronic Skin changes -Wound cultures: Enterobacter, staph, corynebacterium -Blood cultures are negative -ID consulted and appreciate input -Wound care has been following the patient. -Has been on antibiotics for about 2 weeks so have stopped Zosyn on 01/25/2017. S/P Fall secondary to Lethargy: Likely secondary to dehydration,hypotension and infection Presenting chief complaint at the ER -CT head: negative -Blood cultures: negative -Getting PT/OT but not participating much. -Ambulating well without any difficulty Hypertension: Elevated secondary to noncompliance -Increased lisinopril from 10mg to 20mg daily History Testicular CA s/p surgery. Stable. Chronic Anemia: Stable and is at baseline. H/O DVT as per records. Patient is off anticoagulants being homelessness Schizophrenia(Paranoid): Refused appropriate medical management -Counselled again DVT Prophylaxis: Sq Heparin Code Status: FULL CODE Disposition: Had multiple discussions with patient regarding placement to Rehab as he is homeless. He is receptive but has not made up his mind so far. Vital Signs: Date Time Temp Pulse Resp B/P Pulse Ox O2 Delivery O2 Flow Rate FiO2 01/27/17 11:10 156/89 01/27/17 08:01 36.8 52 20 189/100 96 181/89 01/27/17 07:55 Room Air 01/27/17 00:25 Room Air 01/27/17 00:07 36.4 55 20 148/83 99 Room Air 01/26/17 20:00 Room Air 01/26/17 16:06 Room Air 01/26/17 14:55 36.5 46 22 124/79 98 Room Air Lab Results: Results Past 24 Hours Test 01/27/17 07:35 Range/Units Creatinine 0.96 0.60-1.40 mg/dl Est Creatinine Clear Calc Drug Dose 75.2 ml/min Estimated GFR () 96.4 Estimated GFR (Non- 83.2
[2017-01-27 15:55] VITALS: BP 177/94; PULSE 65; TEMP 36.2; O2SAT 98
[2017-01-27 18:23] VITALS: BP 172/86
[2017-01-27] MEDS: CLONIDINE HCL 0.1 MG TAB PO PRN (18:26)
[2017-01-27 23:59] VITALS: BP 153/84; PULSE 57; TEMP 37.6; O2SAT 97
[2017-01-28] MEDS: OXYCODONE/ACETAMINOPHEN 5-325 TAB PO PRN ×2 (05:10→18:53)
[2017-01-28] MEDS: FAMOTIDINE IV INJ 20 MG in DEXTROSE 5% 100ML 100 ML IV SCH (05:44)
[2017-01-28 07:25] VITALS: BP 152/91; PULSE 64; TEMP 37.3; O2SAT 96
[2017-01-28] MEDS: DOCUSATE SODIUM 100 MG CAP PO SCH ×2 (07:36→20:00)
[2017-01-28] MEDS: ENOXAPARIN 40 MG/0.4 ML SYR SQ SCH (07:36)
[2017-01-28] MEDS: LISINOPRIL 10 MG TAB PO SCH (07:37)
[2017-01-28 08:00] LABS: HEMATOCRIT 34.3 % (42-52); MEAN CELL VOLUME 83.3 fL (80-100); MEAN CORPUSCULAR HEMOGLOBIN 26.5 pg (25-34); MEAN CORPUSCULAR HGB CONC 31.8 g/dl (32-36); MEAN PLATELET VOLUME 9.7 fL (7.4-10.4); PLATELET COUNT 181 K/uL (130-400); RED BLOOD COUNT 4.12 M/uL (4.7-6.1); WHITE BLOOD COUNT 1.13 K/uL (4.8-10.8)
[2017-01-28 10:26] LABS: BASO % 0.9 %; BASO ABS # 0.01 K/uL (0-0.2); COMPLETE YES; EOS % 6.4 %; LYMPH % 34.5 %; LYMPH ABS # 0.38 K/uL (1.2-3.4); MONO % 18.2 %
--- NOTE | 2017-01-28 11:10 | Psychiatric Progress Notes ---
Psychiatric Progress Note Date of Service Jan 28, 2017. Notes ID: Patient reviewed with liaison nurse. Interim progress reviewed. CC: "I don't mind being here" HPI: has been taking PO meds (save stool softener), lipase is normalized, he cooperated with labs this am. States he doesn't like what comes on his tray which is why he hasn't been eating too much (suspect he rarely gets more than 1 meal a day. ROS: denied paranoia, c/o some right sided abdominal pain MSE: alert, cooperative, calm, thoughts concrete but organized, no SI/HI/[place] Imp: hx of schizophrenia Plan: agree not acute indication for inpatient psychiatric hospitalization patient declines any follow up care
--- NOTE | 2017-01-28 13:58 | Progress Note ---
Internal Med Progress Note Date of Service: Jan 28, 2017. Provider Documentation: SUBJECTIVE: Pt was seen and examined who is lying in bed with no distress Pt said that he feels better this morning & denies and abdominal pain/nausea/vomiting. Denies chest pain/pressure, palpitation and dizziness. Not eating much.Pt has been refused IVF and imaging for to help manage his pancreatitis He is very paranoid & thinks that there is something wrong with the other room OBJECTIVE: Vital Signs-as noted below Examination: General- Alert/Awake, paranoid but in no acute distress Head- atraumatic Eyes- PERRL, EOMI ENT- oropharynx clear Neck- supple, midline trachea,no JVD Lungs- B/l Clear to auscultation. Heart- regular rhythm; no murmur Abdomen- soft, very mild tenderness with palpation deep palpitation Extremities- +edema, no calf tenderness, RLE erythema with demarcation Neuro- alert, oriented, PERRL, EOMI Skin- warm & dry Lab data as noted below. ASSESSMENT & PLAN: Recurrent Acute Pancreatitis: Clinically doing well. Pain sadie now and has been tolerating oral intake. CT abdomen noted; (+) CBD and hepatic duct dilatation & he may have passed a stone, cannot rule out pancreatic mass or stricture Refusing MRCP despite repeated discussions. -Lipase level is back to normal now. -GI consulted, patient declining MRCP at this time -Noted drop in WBC so will follow CBC in AM. Right Lower Leg Ulcers, Cellulitis-recurrent with Chronic Right Lower Extremity Edema/Lymphedema Chronic Skin changes -Wound cultures: Enterobacter, staph, corynebacterium -Blood cultures are negative -ID consulted and appreciate input -Wound care has been following the patient. -Has been on antibiotics for about 2 weeks so have stopped Zosyn on 01/25/2017. S/P Fall secondary to Lethargy: Likely secondary to dehydration,hypotension and infection Presenting chief complaint at the ER -CT head: negative -Blood cultures: negative -Getting PT/OT but not participating much. -Ambulating well without any difficulty Hypertension: Elevated secondary to noncompliance -Increased lisinopril from 10mg to 20mg daily History Testicular CA s/p surgery. Stable. Chronic Anemia: Stable and is at baseline. H/O DVT as per records. Patient is off anticoagulants being homelessness Schizophrenia(Paranoid): Refused appropriate medical management -Counselled again DVT Prophylaxis: Sq Heparin Code Status: FULL CODE Disposition: Had multiple discussions with patient regarding placement to Rehab as he is homeless. He is receptive but has not made up his mind so far. Vital Signs: Date Time Temp Pulse Resp B/P Pulse Ox O2 Delivery O2 Flow Rate FiO2 01/28/17 08:00 Room Air 01/28/17 07:25 37.3 64 20 152/91 96 Room Air 01/28/17 00:00 Room Air 01/27/17 23:59 37.6 57 16 153/84 97 Room Air 01/27/17 18:23 172/86 01/27/17 16:00 Room Air 01/27/17 15:55 36.2 65 20 177/94 98 Room Air Lab Results: Results Past 24 Hours Test 01/28/17 06:43 Range/Units White Blood Count 1.13 4.8-10.8 K/uL Red Blood Count 4.12 4.7-6.1 M/uL Hemoglobin 10.9 14.0-18.0 g/dL Hematocrit 34.3 42-52 % Mean Corpuscular Volume 83.3 80-100 fL Mean Corpuscular Hemoglobin 26.5 25-34 pg Mean Corpuscular Hemoglobin Concent 31.8 32-36 g/dl Platelet Count 181 130-400 K/uL Mean Platelet Volume 9.7 7.4-10.4 fL Neutrophils (%) (Auto) 40.0 % Lymphocytes (%) (Auto) 34.5 % Monocytes (%) (Auto) 18.2 % Eosinophils (%) (Auto) 6.4 % Basophils (%) (Auto) 0.9 % Neutrophils # (Auto) 0.44 1.4-6.5 K/uL Lymphocytes # (Auto) 0.38 1.2-3.4 K/uL Monocytes # (Auto) 0.20 0.11-0.59 K/uL Eosinophils # (Auto) 0.07 0-0.5 K/uL Basophils # (Auto) 0.01 0-0.2 K/uL RDW Standard Deviation 45.7 36.4-46.3 fL RDW Coefficient of Variation 15.0 11.5-14.5 % Immature Granulocyte % (Auto) 0.0 % Immature Granulocyte # (Auto) 0.00 0.00-0.02 K/uL
[2017-01-28 15:17] VITALS: BP 165/87; PULSE 53; TEMP 36.8; O2SAT 96
[2017-01-28] MEDS: ONDANSETRON INJ 2 MG/ML 2 ML VIAL IV PRN (18:53)
[2017-01-28] MEDS: TRAMADOL HCL 50 MG TAB PO PRN (20:32)
[2017-01-29] VITALS: BP 148/87; PULSE 59; TEMP 37; O2SAT 96
[2017-01-29 07:15] VITALS: BP 157/83; PULSE 55; TEMP 36.9; O2SAT 97
[2017-01-29 07:31] LABS: CREATININE 0.98 mg/dl (0.60-1.40)
[2017-01-29] MEDS: DOCUSATE SODIUM 100 MG CAP PO SCH ×2 (08:00→19:44)
[2017-01-29] MEDS: ENOXAPARIN 40 MG/0.4 ML SYR SQ SCH (08:00)
[2017-01-29 08:06] LABS: HEMATOCRIT 35.7 % (42-52); MEAN CELL VOLUME 85.4 fL (80-100); MEAN CORPUSCULAR HEMOGLOBIN 26.8 pg (25-34); MEAN CORPUSCULAR HGB CONC 31.4 g/dl (32-36); PLATELET COUNT 170 K/uL (130-400); RED BLOOD COUNT 4.18 M/uL (4.7-6.1); WHITE BLOOD COUNT 1.24 K/uL (4.8-10.8)
[2017-01-29] MEDS: ONDANSETRON INJ 2 MG/ML 2 ML VIAL IV PRN ×2 (08:07→15:37)
[2017-01-29] MEDS: OXYCODONE/ACETAMINOPHEN 5-325 TAB PO PRN (08:08)
[2017-01-29 08:15] LABS: BASO % 0.8 %; BASO ABS # 0.01 K/uL (0-0.2); COMPLETE YES; LYMPH % 44.4 %; LYMPH ABS # 0.55 K/uL (1.2-3.4); MONO % 28.2 %; NEUT % 22.6 %
[2017-01-29] MEDS: LISINOPRIL 10 MG TAB PO SCH (08:37)
--- NOTE | 2017-01-29 09:36 | Progress Note ---
Internal Med Progress Note Date of Service: Jan 29, 2017. Provider Documentation: SUBJECTIVE: Pt was seen and examined who is lying in bed with no distress Pt said that he feels better this morning & had nausea. Denies chest pain/pressure, palpitation and dizziness. Not eating much.Pt has been refused IVF and imaging for to help manage his pancreatitis He is very paranoid & thinks that there is something wrong with the other room OBJECTIVE: Vital Signs-as noted below Examination: General- Alert/Awake, paranoid but in no acute distress Head- atraumatic Eyes- PERRL, EOMI ENT- oropharynx clear Neck- supple, midline trachea,no JVD Lungs- B/l Clear to auscultation. Heart- regular rhythm; no murmur Abdomen- soft, very mild tenderness with palpation deep palpitation Extremities- +edema, no calf tenderness, RLE erythema with demarcation Neuro- alert, oriented, PERRL, EOMI Skin- warm & dry Lab data as noted below. ASSESSMENT & PLAN: Recurrent Acute Pancreatitis: Clinically doing well. Pain sadie now and has been tolerating oral intake. CT abdomen noted; (+) CBD and hepatic duct dilatation & he may have passed a stone, cannot rule out pancreatic mass or stricture Refusing MRCP despite repeated discussions. -Lipase level is back to normal now. -GI consulted, patient declining MRCP at this time -Noted drop in WBC/Neutrophils so will follow CBC in AM. Right Lower Leg Ulcers, Cellulitis-recurrent with Chronic Right Lower Extremity Edema/Lymphedema Chronic Skin changes -Wound cultures: Enterobacter, staph, corynebacterium -Blood cultures are negative -ID consulted and appreciate input -Wound care has been following the patient. -Has been on antibiotics for about 2 weeks so have stopped Zosyn on 01/25/2017. S/P Fall secondary to Lethargy: Likely secondary to dehydration,hypotension and infection Presenting chief complaint at the ER -CT head: negative -Blood cultures: negative -Getting PT/OT but not participating much. -Ambulating well without any difficulty Hypertension: Elevated secondary to noncompliance -Increased lisinopril from 10mg to 20mg daily History Testicular CA s/p surgery. Stable. Chronic Anemia: Stable and is at baseline. H/O DVT as per records. Patient is off anticoagulants being homelessness Schizophrenia(Paranoid): Refused appropriate medical management -Counselled again DVT Prophylaxis: Sq Heparin Code Status: FULL CODE Disposition: Had multiple discussions with patient regarding placement to Rehab as he is homeless. He is receptive but has not made up his mind so far. Vital Signs: Date Time Temp Pulse Resp B/P Pulse Ox O2 Delivery O2 Flow Rate FiO2 01/29/17 08:00 Room Air 01/29/17 07:15 36.9 55 18 157/83 97 Room Air 01/29/17 00:00 37.0 59 18 148/87 96 Room Air 01/29/17 00:00 Room Air 01/28/17 16:00 Room Air 01/28/17 15:17 36.8 53 19 165/87 96 Lab Results: Results Past 24 Hours Test 01/29/17 06:00 Range/Units White Blood Count 1.24 4.8-10.8 K/uL Red Blood Count 4.18 4.7-6.1 M/uL Hemoglobin 11.2 14.0-18.0 g/dL Hematocrit 35.7 42-52 % Mean Corpuscular Volume 85.4 80-100 fL Mean Corpuscular Hemoglobin 26.8 25-34 pg Mean Corpuscular Hemoglobin Concent 31.4 32-36 g/dl Platelet Count 170 130-400 K/uL Mean Platelet Volume 10.0 7.4-10.4 fL Neutrophils (%) (Auto) 22.6 % Lymphocytes (%) (Auto) 44.4 % Monocytes (%) (Auto) 28.2 % Eosinophils (%) (Auto) 4.0 % Basophils (%) (Auto) 0.8 % Neutrophils # (Auto) 0.28 1.4-6.5 K/uL Lymphocytes # (Auto) 0.55 1.2-3.4 K/uL Monocytes # (Auto) 0.35 0.11-0.59 K/uL Eosinophils # (Auto) 0.05 0-0.5 K/uL Basophils # (Auto) 0.01 0-0.2 K/uL RDW Standard Deviation 47.6 36.4-46.3 fL RDW Coefficient of Variation 15.2 11.5-14.5 % Immature Granulocyte % (Auto) 0.0 % Immature Granulocyte # (Auto) 0.00 0.00-0.02 K/uL Creatinine 0.98 0.60-1.40 mg/dl Est Creatinine Clear Calc Drug Dose 73.7 ml/min Estimated GFR () 94.1 Estimated GFR (Non- 81.2
[2017-01-29] MEDS ORDERED: DICYCLOMINE HCL 10 MG/ML 2 ML AMP IM ONE (10:00)
[2017-01-29] MEDS ORDERED: DICYCLOMINE HCL 10 MG CAP PO ONE (11:00)
[2017-01-29] MEDS ORDERED: DICYCLOMINE HCL 10 MG CAP PO PRN (17:00)
[2017-01-29 17:06] VITALS: BP 126/77; PULSE 56; TEMP 36.9; O2SAT 95
[2017-01-29] MEDS: METOCLOPRAMIDE HCL INJ 5 MG/ML 2 ML VIAL IV SCH ×2 (18:00→23:30)
--- NOTE | 2017-01-29 19:56 | DIAGNOSTIC IMAGING REPORT ---
KUB CLINICAL HISTORY: Nausea and vomiting. FINDINGS: 2 AP supine abdominal radiograph are correlated with abdominal CT dated 01/21/2017. There is a nonobstructed abdominal bowel gas pattern noting moderate colonic fecal retention. No evidence of intraperitoneal free air is seen on these supine views. Surgical clips are present in the right lower quadrant. Numerous phleboliths are observed in the pelvis. The skeletal structures are osteopenic. The bony structures appear intact. The lung bases appear clear. Cardiomegaly is observed. IMPRESSION: Nonobstructed abdominal bowel gas pattern noting moderate colonic fecal retention. Electronically signed by: Mulugeta Mccabe M.D. 01/29/2017 7:55 PM Dictated Date/Time: 01/29/2017 7:53 PM
[2017-01-29] MEDS: TRAMADOL HCL 50 MG TAB PO PRN (23:18)
[2017-01-29 23:28] VITALS: BP 129/72; PULSE 57; TEMP 37; O2SAT 96
[2017-01-30] MEDS: METOCLOPRAMIDE HCL INJ 5 MG/ML 2 ML VIAL IV SCH ×4 (05:47→23:39)
[2017-01-30 07:19] VITALS: BP 149/81; PULSE 52; TEMP 36.7; O2SAT 96
[2017-01-30] MEDS: ENOXAPARIN 40 MG/0.4 ML SYR SQ SCH (07:47)
[2017-01-30] MEDS: DOCUSATE SODIUM 100 MG CAP PO SCH ×2 (07:47→21:11)
[2017-01-30] MEDS: LISINOPRIL 10 MG TAB PO SCH (07:50)
[2017-01-30 08:28] LABS: HEMATOCRIT 36.4 % (42-52); MEAN CELL VOLUME 85.4 fL (80-100); MEAN CORPUSCULAR HGB CONC 31.6 g/dl (32-36); MEAN PLATELET VOLUME 9.4 fL (7.4-10.4); PLATELET COUNT 149 K/uL (130-400); RED BLOOD COUNT 4.26 M/uL (4.7-6.1); WHITE BLOOD COUNT 1.16 K/uL (4.8-10.8)
[2017-01-30 09:53] LABS: BASO % 1.7 %; BASO ABS # 0.02 K/uL (0-0.2); COMPLETE YES; EOS % 2.6 %; GIANT PLATELETS 1+; LARGE PLATELETS 1+; LYMPH % 51.7 %; MONO % 29.3 %; NEUT % 14.7 %
[2017-01-30] MEDS ORDERED: DOCUSATE SODIUM 100 MG CAP PO ONE (12:00)
[2017-01-30] MEDS ORDERED: PROMETHAZINE HCL INJ 12.5 MG in SODIUM CHLORIDE 0.9% 50ML 50 ML IV PRN (12:00)
[2017-01-30] MEDS ORDERED: BISACODYL 5 MG TABEC PO ONE (12:00)
[2017-01-30] MEDS ORDERED: POLYETHYLENE (MIRALAX) 17 GM PACK PO ONE (13:00)
[2017-01-30] MEDS: TRAMADOL HCL 50 MG TAB PO PRN (13:12)
--- NOTE | 2017-01-30 14:28 | Progress Note ---
Internal Med Progress Note Date of Service: Jan 30, 2017. Provider Documentation: SUBJECTIVE: Pt was seen and examined lying in bed with no distress Pt said that he feels better this morning & had nausea earlier today. Denies chest pain/pressure, palpitation and dizziness. Not eating much.Pt has been refused IVF and imaging for to help manage his pancreatitis He is very paranoid & thinks that there is something wrong with the other room Has been eating dinner only and not answering well about status of bowel movements. Dictates the nurses about medications and refuses stool softeners. OBJECTIVE: Vital Signs-as noted below Examination: General- Alert/Awake, paranoid but in no acute distress Head- atraumatic Eyes- PERRL, EOMI ENT- oropharynx clear Neck- supple, midline trachea,no JVD Lungs- B/l Clear to auscultation. Heart- regular rhythm; no murmur Abdomen- soft, very mild tenderness with palpation deep palpitation Extremities- +edema, no calf tenderness, RLE erythema with demarcation Neuro- alert, oriented, PERRL, EOMI Skin- warm & dry Lab data as noted below. ASSESSMENT & PLAN: KUB (01/29/2017) IMPRESSION: Nonobstructed abdominal bowel gas pattern noting moderate colonic fecal retention. Recurrent Acute Pancreatitis: Clinically doing well. Pain sadie now and has been tolerating oral intake. CT abdomen noted; (+) CBD and hepatic duct dilatation & he may have passed a stone, cannot rule out pancreatic mass or stricture Refusing MRCP despite repeated discussions. -Lipase level is back to normal now. -GI consulted, patient declining MRCP at this time -Noted drop in WBC/Neutrophils so will follow CBC in AM. Right Lower Leg Ulcers, Cellulitis-recurrent with Chronic Right Lower Extremity Edema/Lymphedema Chronic Skin changes -Wound cultures: Enterobacter, staph, corynebacterium -Blood cultures are negative -ID consulted and appreciate input -Wound care has been following the patient. -Has been on antibiotics for about 2 weeks so have stopped Zosyn on 01/25/2017. Constipation: Counselled him to take his stool softeners as ordered. Discussed the results of KUB with him. -WILL AVOID ANY NARCOTICS as there is no acute pain. S/P Fall secondary to Lethargy: Likely secondary to dehydration,hypotension and infection Presenting chief complaint at the ER -CT head: negative -Blood cultures: negative -Getting PT/OT but not participating much. -Ambulating well without any difficulty Hypertension: Elevated secondary to noncompliance -Increased lisinopril from 10mg to 20mg daily History Testicular CA s/p surgery. Stable. Chronic Anemia: Stable and is at baseline. H/O DVT as per records. Patient is off anticoagulants being homelessness Schizophrenia(Paranoid): Refused appropriate medical management -Counselled again DVT Prophylaxis: Sq Heparin Code Status: FULL CODE Disposition: Had multiple discussions with patient regarding placement to Rehab as he is homeless. He is receptive but has not made up his mind so far. Discharge as soon this storm is over. Vital Signs: Date Time Temp Pulse Resp B/P Pulse Ox O2 Delivery O2 Flow Rate FiO2 01/30/17 08:00 Room Air 01/30/17 07:19 36.7 52 20 149/81 96 01/30/17 00:00 Room Air 01/29/17 23:28 37.0 57 18 129/72 96 Room Air 01/29/17 17:06 36.9 56 18 126/77 95 Room Air 01/29/17 16:00 Room Air Lab Results: Results Past 24 Hours Test 01/30/17 06:35 Range/Units White Blood Count 1.16 4.8-10.8 K/uL Red Blood Count 4.26 4.7-6.1 M/uL Hemoglobin 11.5 14.0-18.0 g/dL Hematocrit 36.4 42-52 % Mean Corpuscular Volume 85.4 80-100 fL Mean Corpuscular Hemoglobin 27.0 25-34 pg Mean Corpuscular Hemoglobin Concent 31.6 32-36 g/dl Platelet Count 149 130-400 K/uL Mean Platelet Volume 9.4 7.4-10.4 fL Neutrophils (%) (Auto) 14.7 % Lymphocytes (%) (Auto) 51.7 % Monocytes (%) (Auto) 29.3 % Eosinophils (%) (Auto) 2.6 % Basophils (%) (Auto) 1.7 % Neutrophils # (Auto) 0.17 1.4-6.5 K/uL Lymphocytes # (Auto) 0.60 1.2-3.4 K/uL Monocytes # (Auto) 0.34 0.11-0.59 K/uL Eosinophils # (Auto) 0.03 0-0.5 K/uL Basophils # (Auto) 0.02 0-0.2 K/uL RDW Standard Deviation 47.9 36.4-46.3 fL RDW Coefficient of Variation 15.2 11.5-14.5 % Immature Granulocyte % (Auto) 0.0 % Immature Granulocyte # (Auto) 0.00 0.00-0.02 K/uL Large Platelets 1+ Giant Platelets 1+
[2017-01-30 14:49] VITALS: BP 147/83; PULSE 60; TEMP 37.3; O2SAT 97
[2017-01-30 16:20] VITALS: O2SAT 97
[2017-01-31 00:25] VITALS: BP 132/78; PULSE 52; TEMP 36.8; O2SAT 94
[2017-01-31] MEDS: METOCLOPRAMIDE HCL INJ 5 MG/ML 2 ML VIAL IV SCH ×4 (05:46→23:34)
[2017-01-31 06:43] LABS: BUN/CREATININE RATIO 18.3 (10-20); CALCIUM 8.2 mg/dl (8.5-10.1); CREATININE 0.99 mg/dl (0.60-1.40); POTASSIUM 3.4 mmol/L (3.5-5.1)
[2017-01-31 06:45] LABS: ALB/GLOB RATIO 0.7 (0.9-2)
[2017-01-31 07:11] VITALS: BP 159/81; PULSE 48; TEMP 36.7; O2SAT 97
[2017-01-31 07:20] LABS: HEMATOCRIT 35.6 % (42-52); MEAN CELL VOLUME 85.2 fL (80-100); MEAN CORPUSCULAR HEMOGLOBIN 27.5 pg (25-34); MEAN CORPUSCULAR HGB CONC 32.3 g/dl (32-36); MEAN PLATELET VOLUME 9.7 fL (7.4-10.4); PLATELET COUNT 141 K/uL (130-400); RED BLOOD COUNT 4.18 M/uL (4.7-6.1); WHITE BLOOD COUNT 1.54 K/uL (4.8-10.8)
[2017-01-31 07:40] VITALS: O2SAT 97
[2017-01-31 08:00] LABS: BASO % 0.6 %; BASO ABS # 0.01 K/uL (0-0.2); COMPLETE YES; EOS % 7.1 %; LYMPH % 51.9 %; MONO % 30.5 %; NEUT % 9.9 %
[2017-01-31 08:01] LABS: GIANT PLATELETS 1+; SMUDGE CELLS PRESENT
[2017-01-31] MEDS ORDERED: POTASSIUM CHLORIDE 20 MEQ TABCR PO ONE (08:30)
[2017-01-31] MEDS: ENOXAPARIN 40 MG/0.4 ML SYR SQ SCH (08:36)
[2017-01-31] MEDS: LISINOPRIL 10 MG TAB PO SCH (08:39)
[2017-01-31] MEDS: DOCUSATE SODIUM 100 MG CAP PO SCH ×2 (08:39→19:26)
--- NOTE | 2017-01-31 09:58 | Medical Consult ---
Consultation Date of Consultation: Jan 31, 2017. Attending Physician: Uche Chatman MD Reason for Consultation: Neutropenia History of Present Illness Mr. Masterson is a 66 yo male Who is new to the consulting hematology service. 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 He was admitted to the hospital on 01/03/2017 for altered mental status after a fall. A CT of the head was negative for an acute process. He was started on vancomycin and Zosyn for his chronic right lower extremity infection (vancomycin d/c after a couple of days). During this hospitalization, he was also diagnosed with pancreatitis , but due to his mental disorder he has been apparently refusing treatment such as IV fluids and more diagnostic procedures such as MRCP. When he was diagnosed with possible biliary tree infection, his antibiotics were switched from Zosyn to Unasyn (01/10/17-01/21/17), and then Zosyn restarted. The Zosyn was discontinued on 01/25/2017, as he had had about 2 weeks of antibiotic therapy. Psychiatry has been involved and has deemed the patient capable of making medical decisions. Consistent leukopenia was 1st noted on 01/23/2017 with a WBC of 3250, no differential performed that day. On 01/25/2017, his WBC was 2000 with an ANC of 1290. From 01/28/2017 to 01/31/2017 his WBC has ranged from 2207-5298. His ANC has ranged from 150 to 440. His hemoglobin is remaining stable between 10.5 and 11.5. His platelet count has remained normal. His absolute lymphocyte count has also been noted to be decreased. His MCV is in the mid 80s. Notably , on 01/22/2017 his ANC was around 8000. On admission, his total white count from 01/03/2017 to 01/10/2017 ranged 2298-1340 with normal ANC on the status. His admission hemoglobin was 9.9. Platelets have been normal. His LFTs were abnormal with a diagnosis of pancreatitis, but have normalized aside from the alkaline phosphatase today. His renal function has been normal during hospitalization. His right lower extremity cultured out enterobacter, Staph aureus, corynebacterium, alcaligenes. Blood cultures x2 negative. Additional history obtained from patient at bedside. The patient reports feeling overall fair today. He reports over the past year he has had intermittent nausea, mainly in the morning. He states the nausea has been worse during this hospitalization with the pancreatitis. He does not have vomiting. He states the abdominal pain experienced during this hospitalization as primary resolved and he reports outside of the hospitalization he does not have issues with abdominal pain. When questioned about the episode of rectal bleeding back in November 2016, he reports this was an isolated incident and he has not had any further melena or bright red blood from the rectum. He reports a healthy appetite. he states he eats regularly 1 he is not hospitalized. His weight has remained stable. He has not noted hematuria. He denies swollen glands, fevers or recurrent infections. He reports chronic dyspnea on exertion , but no cough. He states his right lower extremity is feeling much better since it has been treated for infection during his hospitalization. Past Medical/Surgical History Medical Problems: (1) Acute generalized abdominal pain Status: Acute (2) Anemia Status: Acute (3) Anemia Status: Acute (4) Cellulitis of right lower extremity Status: Acute (5) Dizziness Status: Acute (6) Facial contusion Status: Acute (7) Fall Status: Acute (8) Head injury Status: Acute (9) Hypertension Nos Permanent Comment: declines to take medications Status: Chronic (10) Rectal bleeding Status: Acute (11) Renal failure Status: Acute (12) Sepsis Status: Acute (13) Small bowel obstruction Status: Acute (14) TSH elevation Status: Acute (15) Vomiting Status: Acute (16) Weakness Status: Acute (17) Wound of right lower extremity Status: Acute Social History Problems: (1) Ambulatory dysfunction Status: Acute (2) Cellulitis Status: Acute (3) Cellulitis and abscess of leg Status: Acute (4) Cellulitis of right leg Status: Acute (5) Cellulitis of right leg Status: Acute (6) Cellulitis of right lower extremity Status: Acute (7) Cellulitis of right lower extremity Status: Acute (8) Cellulitis of right lower extremity Status: Acute (9) Cellulitis of right lower extremity Status: Acute (10) Chronic acquired lymphedema Status: Acute (11) Diarrhea Status: Acute (12) Facial contusion Status: Acute (13) Fever Status: Acute (14) Nausea Status: Acute (15) Partial small bowel obstruction Status: Acute (16) Sepsis Status: Acute (17) Shortness of breath Status: Acute (18) 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 (19) Weakness Status: Acute Family History No pertinent family history Social History Smoking Status: Former Smoker Drug Use: none Housing Status: other Allergies Coded Allergies: Horse Dander (Verified Allergy, Unknown, HORSE HAIR, 01/03/17) Tetanus Toxoid (Verified Allergy, Unknown, 01/03/17) Current Inpatient Medications Current Inpatient Medications Medications (Trade) Dose Ordered Sig/Marilyn Route Start Time Stop Time Status Last Admin Dose Admin Acetaminophen (Tylenol Tab) 650 mg Q4H PRN PO 01/03/17 05:15 02/02/17 05:14 Miscellaneous (Iv Fluids Completed) 1 ea PRN PRN N/A 01/03/17 05:45 01/03/18 05:44 Clonidine HCl (Catapres Tab) 0.1 mg Q6H PRN PO 01/03/17 09:15 02/02/17 09:14 01/27/17 18:26 0.1 MG Tramadol HCl (Ultram Tab) not relieved by tylenol @ Q6H PRN PO 01/06/17 05:15 02/05/17 05:14 01/30/17 13:12 50 MG Al Hydrox/Mg Hydrox/Simethicone (Maalox Max Susp) 30 ml Q6H PRN PO 01/07/17 09:45 02/06/17 09:44 Docusate Sodium (coLACE CAP) 100 mg BID PO 01/24/17 20:00 02/23/17 19:59 01/31/17 08:39 100 MG Enoxaparin Sodium (Lovenox Inj) 40 mg QAM SQ 01/26/17 08:00 02/25/17 07:59 Lisinopril (Zestril Tab) 30 mg QAM PO 01/28/17 08:00 02/27/17 07:59 01/31/17 08:39 30 MG Metoclopramide HCl (Reglan Inj) 10 mg Q6H IV 01/29/17 18:00 02/28/17 17:59 Dicyclomine HCl 10 mg 10 mg Q6 PRN PO 01/29/17 17:00 02/28/17 16:59 Promethazine HCl/ Sodium Chloride (Phenergan Inj/ Nss 50ml) 50.5 ml @ 204 mls/hr Q6H PRN IV 01/30/17 12:00 03/01/17 11:59 Review of Systems Constitutional: No chills, No fever, No weight loss Respiratory: + dyspnea on exertion, No cough, No wheezing Cardiovascular: + edema (of RLE, severe, chronic), No palpitations Abdomen: + nausea, + pain (almost resolved- see HPI), No GI bleeding, No constipation, No diarrhea, No vomiting Genitourinary - Male: No hematuria Psychiatric: + problem reported (schizophrenia) Hematologic / Lymphatic: + clotting problems (h/o DVT about 5 yrs ago), No night sweats, No swollen lymph nodes Physical Exam Date Time Temp Pulse Resp B/P Pulse Ox O2 Delivery O2 Flow Rate FiO2 01/31/17 07:40 97 Room Air 01/31/17 07:11 36.7 48 20 159/81 97 01/31/17 00:25 36.8 52 18 132/78 94 Room Air 01/31/17 00:00 Room Air 01/30/17 16:20 97 Room Air 01/30/17 14:49 37.3 60 20 147/83 97 General Appearance: no apparent distress, + thin ENT: hearing grossly normal Respiratory/Chest: lungs clear, normal breath sounds, no respiratory distress, no accessory muscle use Cardiovascular: regular rate, rhythm Abdomen/GI: normal bowel sounds, non tender Extremities/Musculoskelatal: + pertinent finding (significant RLE edema to knee , majority of area covered with bandage; chronic skin changes of LLE, dusky red) Neurologic/Psych: alert, oriented x 3 Laboratory Results 01/29/17 06:00 Red Blood Count 4.18, Mean Corpuscular Volume 85.4, Mean Corpuscular Hemoglobin 26.8, Mean Corpuscular Hemoglobin Concent 31.4, Mean Platelet Volume 10.0, Neutrophils (%) (Auto) 22.6, Lymphocytes (%) (Auto) 44.4, Monocytes (%) (Auto) 28.2, Eosinophils (%) (Auto) 4.0, Basophils (%) (Auto) 0.8, Neutrophils # (Auto ) 0.28, Lymphocytes # (Auto) 0.55, Monocytes # (Auto) 0.35, Eosinophils # (Auto ) 0.05, Basophils # (Auto) 0.01 01/30/17 06:35 Red Blood Count 4.26, Mean Corpuscular Volume 85.4, Mean Corpuscular Hemoglobin 27.0, Mean Corpuscular Hemoglobin Concent 31.6, Mean Platelet Volume 9.4, Neutrophils (%) (Auto) 14.7, Lymphocytes (%) (Auto) 51.7, Monocytes (%) (Auto) 29.3, Eosinophils (%) (Auto) 2.6, Basophils (%) (Auto) 1.7, Neutrophils # (Auto ) 0.17, Lymphocytes # (Auto) 0.60, Monocytes # (Auto) 0.34, Eosinophils # (Auto ) 0.03, Basophils # (Auto) 0.02 01/31/17 05:26 Red Blood Count 4.18, Mean Corpuscular Volume 85.2, Mean Corpuscular Hemoglobin 27.5, Mean Corpuscular Hemoglobin Concent 32.3, Mean Platelet Volume 9.7, Neutrophils (%) (Auto) 9.9, Lymphocytes (%) (Auto) 51.9, Monocytes (%) (Auto) 30.5, Eosinophils (%) (Auto) 7.1, Basophils (%) (Auto) 0.6, Neutrophils # (Auto ) 0.15, Lymphocytes # (Auto) 0.80, Monocytes # (Auto) 0.47, Eosinophils # (Auto ) 0.11, Basophils # (Auto) 0.01 01/29/17 06:00 01/31/17 05:36 Test 01/29/17 06:00 01/30/17 06:35 01/31/17 05:26 01/31/17 05:36 White Blood Count 1.24 K/uL (4.8-10.8) 1.16 K/uL (4.8-10.8) 1.54 K/uL (4.8-10.8) Red Blood Count 4.18 M/uL (4.7-6.1) 4.26 M/uL (4.7-6.1) 4.18 M/uL (4.7-6.1) Hemoglobin 11.2 g/dL (14.0-18.0) 11.5 g/dL (14.0-18.0) 11.5 g/dL (14.0-18.0) Hematocrit 35.7 % (42-52) 36.4 % (42-52) 35.6 % (42-52) Mean Corpuscular Volume 85.4 fL (80-100) 85.4 fL (80-100) 85.2 fL (80-100) Mean Corpuscular Hemoglobin 26.8 pg (25-34) 27.0 pg (25-34) 27.5 pg (25-34) Mean Corpuscular Hemoglobin Concent 31.4 g/dl (32-36) 31.6 g/dl (32-36) 32.3 g/dl (32-36) Platelet Count 170 K/uL (130-400) 149 K/uL (130-400) 141 K/uL (130-400) Mean Platelet Volume 10.0 fL (7.4-10.4) 9.4 fL (7.4-10.4) 9.7 fL (7.4-10.4) Neutrophils (%) (Auto) 22.6 % 14.7 % 9.9 % Lymphocytes (%) (Auto) 44.4 % 51.7 % 51.9 % Monocytes (%) (Auto) 28.2 % 29.3 % 30.5 % Eosinophils (%) (Auto) 4.0 % 2.6 % 7.1 % Basophils (%) (Auto) 0.8 % 1.7 % 0.6 % Neutrophils # (Auto) 0.28 K/uL (1.4-6.5) 0.17 K/uL (1.4-6.5) 0.15 K/uL (1.4-6.5) Lymphocytes # (Auto) 0.55 K/uL (1.2-3.4) 0.60 K/uL (1.2-3.4) 0.80 K/uL (1.2-3.4) Monocytes # (Auto) 0.35 K/uL (0.11-0.59) 0.34 K/uL (0.11-0.59) 0.47 K/uL (0.11-0.59) Eosinophils # (Auto) 0.05 K/uL (0-0.5) 0.03 K/uL (0-0.5) 0.11 K/uL (0-0.5) Basophils # (Auto) 0.01 K/uL (0-0.2) 0.02 K/uL (0-0.2) 0.01 K/uL (0-0.2) RDW Standard Deviation 47.6 fL (36.4-46.3) 47.9 fL (36.4-46.3) 47.6 fL (36.4-46.3) RDW Coefficient of Variation 15.2 % (11.5-14.5) 15.2 % (11.5-14.5) 15.2 % (11.5-14.5) Immature Granulocyte % (Auto) 0.0 % 0.0 % 0.0 % Immature Granulocyte # (Auto) 0.00 K/uL (0.00-0.02) 0.00 K/uL (0.00-0.02) 0.00 K/uL (0.00-0.02) Est Creatinine Clear Calc Drug Dose 73.7 ml/min 72.9 ml/min Estimated GFR () 94.1 92.9 Estimated GFR (Non- 81.2 80.2 Large Platelets 1+ Giant Platelets 1+ 1+ Smudge Cells PRESENT Anion Gap 8.0 mmol/L (3-11) BUN/Creatinine Ratio 18.3 (10-20) Calcium Level 8.2 mg/dl (8.5-10.1) Total Bilirubin 0.4 mg/dl (0.2-1) Aspartate Amino Transf (AST/SGOT) 29 U/L (15-37) Alanine Aminotransferase (ALT/SGPT) 27 U/L (12-78) Alkaline Phosphatase 314 U/L (45-117) Total Protein 6.9 gm/dl (6.4-8.2) Albumin 2.9 gm/dl (3.4-5.0) Globulin 4.0 gm/dl (2.5-4.0) Albumin/Globulin Ratio 0.7 (0.9-2) Lipase 436 U/L (73-393) Labs from 12/05/2014: Iron 16, transferrin 189, transferrin saturation 6%, ferritin 11.5 Folate from 01/04/16: 19.85 Vitamin B12 from 01/04/16:234 Lyme disease testing negative on 07/06/2016 Hepatitis-C antibody negative on 11/30/[address] from 01/03/2017: No acute intracranial abnormality. Calvarium and skull base intact. Chest x-ray from 01/03/2017: Mild stable cardiomegaly. Tortuous study thoracic aorta stable. Lungs clear. Subtle chronic interstitial prominence. No acute process. CT of the abdomen/pelvis from 01/07/2017: Moderate cardiomegaly and trace bilateral pleural effusions, right larger than left. Interval development of moderate intra and extrahepatic biliary ductal dilatation and mild pancreatic ductal dilatation since CT from 11/29/2016. Main pancreatic duct measuring 4 mm. Common bile duct measuring 1 cm. Somewhat upper up narrowing of the distal common bile duct. Mild infiltration adjacent pancreas, seen along the uncinate process and pancreatic head. These findings raise the possibility of acute pancreatitis. Mass cannot be excluded, so short-term follow-up pancreatic protocol CT in 1 month recommended. Gallbladder is mildly distended with gallbladder wall thickening a possible trace pericholecystic fluid. Spleen is slightly enlarged. Marked right renal atrophy. 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 Right groin infiltration as well as asymmetric edema of right thigh anchoring unchanged. CT of the abdomen/pelvis from 01/21/2017: No pleural effusion identified. Moderate intrahepatic biliary ductal dilatation, similar to 01/07/2017. Liver is normal in size and attenuation. Gallbladder is markedly distended and appears mildly thick-walled edematous. CBD measuring 14 mm. CBD as well as central intrahepatic ducts appear mildly thick walled and hyperemic. The appearance is highly concerning for biliary obstruction. Spleen normal in size. Mild to moderate glandular atrophy of pancreas. Pancreatic duct top normal measuring 3 mm. 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 Wall thickening and hyperemia identified in distal stomach and proximal duodenum. This could be due to biliary obstruction, acute pancreatitis or duodenitis. Mass lesion would be impossible to exclude. Inflammation with extension in to the nella hepaticus and pancreatic head. No lymphadenopathy. Bladder wall appears thickened and irregular. No lytic or blastic lesions. KUB from 01/29/2017: Nonobstructed abdominal bowel gas pattern noting moderate colonic fecal retention Assessment & Plan 1. Neutropenia x 6 days- discussed with Dr. Vora, favoring drug-induced neutropenia as it started while patient was on last days of antibiotic when regimen was switched from Unasyn back to Zosyn. Active infection of RLE, pancreatitis could be playing role in marrow suppression. His vitamin B12 is also borderline low, which could affect ANC. Check CBC daily, expecting ANC to increase in next few days. No Neupogen support at this time. Neutropenia precautions should be adhered to. 2. Anemia from multiple mechanisms- patient has had iron deficiency noted back in 2014, along with episode in 12/06 of GI bleeding which required hospitalization does raise concern for an issue in GI tract causing chronic blood loss. He was counseled at 12/06 to have endoscopy, colonoscopy, but he refused. I discussed with patient about checking iron studies today to see if this is still an active issue; he was agreeable, but then stated he would not necessarily agree to treatment for iron deficiency. I again counseled the patient that with his GI bleeding a few months, in addition if he is found to be iron deficient, that he should have colonoscopy and endoscopy, explaining that worst case scenario would be a malignancy in his GI tract. He still refuses any such invasive testing. Again, as his vitamin B 12 is borderline low , this could be affecting anemia. Discussed with patient about parenteral replacement, which he stated he would do it hospitalist was on board. Discussed with Dr. Chatman and he was agreeable. Plan to start patient on vitamin B 12 1000 mcg every week x 4, followed by monthly administration. He likely also has component of anemia of inflammation with active infection in RLE, pancreatitis. 3. Chronic RLE edema with chronic infection- management per ID and hospitalist team. Currently off antibiotics at this time. 4. Acute pancreatitis with possible biliary tree infection- resolving. Received supportive care with pain control, liquid diet that was advanced. Had Unasyn coverage for period of time for possible biliary tree infection- see HPI. Discussed with patient that pancreatic malignancy cannot be excluded with current imaging available, but he states he still will not have MRCP. 5. History of DVT with chronic thrombus of IVC noted- patient believes initial DVT was about 5 yrs ago, was not forthcoming with anymore details surrounding the diagnosis. He stated he is not concerned with this history and with chronic thrombus with IVC. Apparently has not been on AC for long period of time per hospital notes. 6. H/o testicular cancer (1984)- s/p surgical intervention and radical lymph node dissection with chronic RLE edema as complication- patient's testicular cancer history is significantly remote at this point. I performed a history and physical examination of the patient and discussed the management with Cindy Johns PA-C . I reviewed her note and agree with the documented findings and plan of care. In summary, 66 -year-old male, who has few comorbid conditions as outlined above , recent blood workup showed progressive neutropenia which appears to be drug- induced. Agree about intravenous iron therapy 1 and parent vitamin B12 investment therapy. I think neutropenia is likely to improve in the next few days. History of testicular events in the past, no evidence of recurrent disease noted. Dr. Ivan Vora Hem/Onc (This note was completed using the dictation program Fluency Direct. As such, there may be misspellings, word substitutions, or other variations that should not change the essence of the clinical content of this encounter note. If there is need for further clarification, please direct questions to the provider listed above.)
--- NOTE | 2017-01-31 14:57 | Progress Note ---
Internal Med Progress Note Date of Service: Jan 31, 2017. Provider Documentation: SUBJECTIVE: Patient is seen and examined at bedside. He complains of dizziness and mild abdominal pain. Refuses to take PO potassium per staff. Denies any chest pain, SOB. Agreeable to IV fluids today but states doesn't work any further work up for abdominal pain. Offers no other complaints. OBJECTIVE: Vital Signs-as noted below Physical Exam: Vitals signs as noted above General Appearance:Moderately built and nourished, no apparent distress Head: normocephalic, Atraumatic Eyes: normal inspection, EOMI, PERRLA Neck: supple, Trachea midline Respiratory/Chest: Normal breath sounds, CTA, No accessory muscle use Cardiovascular: S1, S2, No murmur Abdomen/GI:Soft, Mild tenderness diffusely, Bowel sounds present Extremities/Musculoskelatal: RLE: Lymphedema and mild erythema, +edema, in bandage Neurologic/Psych:AAOX3, grossly no focal neurological deficits Skin: normal color, warm Lab data as noted below. ASSESSMENT & PLAN: Recurrent Acute Pancreatitis: Clinically Stable. Has mild abd pain, agreeable for IV fluids today Doesn't want any procedure including MRCP CT abdomen: (+) CBD and hepatic duct dilatation. cannot rule out pancreatic mass or stricture. Could have passed a stone Lipase level: trended down GI consulted, patient declining MRCP at this time Start IV fluids, patient complaining of dizziness Neutropenia: Likely secondary to acute illness and Zosyn Afebrile H/O Testicular cancer Will consult Oncology Hypokalemia: Refused PO potassium replacement Will replace IV with IVF Continue to monitor Right Lower Leg Ulcers: Cellulitis-recurrent with Chronic Right Lower Extremity Edema/ Lymphedema Wound cultures: Enterobacter, staph, corynebacterium Blood cultures:negative Appreciate ID input Continue Wound care . S/P IV antibiotics for about 2 weeks so have stopped Zosyn on 2016 Constipation: Continue bowel regimen Avoid Narcotics S/P Fall secondary to Lethargy: Likely secondary to dehydration,hypotension and infection CT head: negative Blood cultures: negative PT/OT Hypertension: Elevated secondary to noncompliance Continue lisinopril Continue to monitor History R Testicular CA s/p surgery Stable. Chronic Anemia: Stable H/O DVT as per records. Patient is off anticoagulants being homelessness/ Non compliant Schizophrenia(Paranoid): Refused appropriate medical management Counselled DVT Px: Sq Heparin Code Status: FULL CODE Disposition: Patient is homeless. health services coordinator consulted Vital Signs: Date Time Temp Pulse Resp B/P Pulse Ox O2 Delivery O2 Flow Rate FiO2 01/31/17 07:40 97 Room Air 01/31/17 07:11 36.7 48 20 159/81 97 01/31/17 00:25 36.8 52 18 132/78 94 Room Air 01/31/17 00:00 Room Air 01/30/17 16:20 97 Room Air Lab Results: Results Past 24 Hours Test 01/31/17 05:26 01/31/17 05:36 Range/Units White Blood Count 1.54 4.8-10.8 K/uL Red Blood Count 4.18 4.7-6.1 M/uL Hemoglobin 11.5 14.0-18.0 g/dL Hematocrit 35.6 42-52 % Mean Corpuscular Volume 85.2 80-100 fL Mean Corpuscular Hemoglobin 27.5 25-34 pg Mean Corpuscular Hemoglobin Concent 32.3 32-36 g/dl Platelet Count 141 130-400 K/uL Mean Platelet Volume 9.7 7.4-10.4 fL Neutrophils (%) (Auto) 9.9 % Lymphocytes (%) (Auto) 51.9 % Monocytes (%) (Auto) 30.5 % Eosinophils (%) (Auto) 7.1 % Basophils (%) (Auto) 0.6 % Neutrophils # (Auto) 0.15 1.4-6.5 K/uL Lymphocytes # (Auto) 0.80 1.2-3.4 K/uL Monocytes # (Auto) 0.47 0.11-0.59 K/uL Eosinophils # (Auto) 0.11 0-0.5 K/uL Basophils # (Auto) 0.01 0-0.2 K/uL RDW Standard Deviation 47.6 36.4-46.3 fL RDW Coefficient of Variation 15.2 11.5-14.5 % Immature Granulocyte % (Auto) 0.0 % Immature Granulocyte # (Auto) 0.00 0.00-0.02 K/uL Smudge Cells PRESENT Giant Platelets 1+ Sodium Level 143 136-145 mmol/L Potassium Level 3.4 3.5-5.1 mmol/L Chloride Level 110 98-107 mmol/L Carbon Dioxide Level 25 21-32 mmol/L Anion Gap 8.0 3-11 mmol/L Blood Urea Nitrogen 18 7-18 mg/dl Creatinine 0.99 0.60-1.40 mg/dl Est Creatinine Clear Calc Drug Dose 72.9 ml/min Estimated GFR () 92.9 Estimated GFR (Non- 80.2 BUN/Creatinine Ratio 18.3 10-20 Random Glucose 82 70-99 mg/dl Calcium Level 8.2 8.5-10.1 mg/dl Total Bilirubin 0.4 0.2-1 mg/dl Aspartate Amino Transf (AST/SGOT) 29 15-37 U/L Alanine Aminotransferase (ALT/SGPT) 27 12-78 U/L Alkaline Phosphatase 314 45-117 U/L Total Protein 6.9 6.4-8.2 gm/dl Albumin 2.9 3.4-5.0 gm/dl Globulin 4.0 2.5-4.0 gm/dl Albumin/Globulin Ratio 0.7 0.9-2 Lipase 436 73-393 U/L
[2017-01-31 15:40] VITALS: BP 154/88; PULSE 49; TEMP 36.9; O2SAT 96
[2017-01-31] MEDS: SODIUM CHLOR 0.45% + 20MEQ KCL 1,000 ML IV SCH (18:00)
[2017-01-31] MEDS: TRAMADOL HCL 50 MG TAB PO PRN (19:25)
[2017-02-01 00:28] VITALS: BP 150/80; PULSE 60; TEMP 37.1; O2SAT 96
[2017-02-01] MEDS: SODIUM CHLOR 0.45% + 20MEQ KCL 1,000 ML IV SCH ×3 (02:01→23:11)
[2017-02-01] MEDS: METOCLOPRAMIDE HCL INJ 5 MG/ML 2 ML VIAL IV SCH ×4 (05:18→23:11)
[2017-02-01] MEDS ORDERED: CYANOCOBALAMIN 1000 MCG/ML VIAL SC SCH (07:00)
[2017-02-01 07:21] VITALS: BP 146/87; PULSE 50; TEMP 36.5; O2SAT 97
[2017-02-01] MEDS: ENOXAPARIN 40 MG/0.4 ML SYR SQ SCH (07:42)
[2017-02-01 07:54] LABS: BUN/CREATININE RATIO 16.1 (10-20); CREATININE 0.88 mg/dl (0.60-1.40); POTASSIUM 3.7 mmol/L (3.5-5.1)
[2017-02-01 07:59] LABS: FERRITIN 21.7 ng/ml (8.0-388.0)
[2017-02-01] MEDS: DOCUSATE SODIUM 100 MG CAP PO SCH ×2 (08:00→20:00)
[2017-02-01 08:01] LABS: MEAN CELL VOLUME 83.3 fL (80-100); MEAN CORPUSCULAR HEMOGLOBIN 26.7 pg (25-34); MEAN CORPUSCULAR HGB CONC 32.1 g/dl (32-36); MEAN PLATELET VOLUME 9.2 fL (7.4-10.4); PLATELET COUNT 139 K/uL (130-400); RED BLOOD COUNT 4.08 M/uL (4.7-6.1); WHITE BLOOD COUNT 2.19 K/uL (4.8-10.8)
[2017-02-01] MEDS: LISINOPRIL 10 MG TAB PO SCH (08:20)
[2017-02-01 09:00] VITALS: O2SAT 97
[2017-02-01 10:18] VITALS: BP 157/90
[2017-02-01 10:21] LABS: COMPLETE YES; EOSINOPHIL % 3.5 %; LYMPH ABS # 1.02 K/uL (1.2-3.4); LYMPHOCYTE % 46.5 %; NEUTROPHILS % 30.7 %
[2017-02-01 10:25] LABS: SMUDGE CELLS PRESENT
[2017-02-01] MEDS: ONDANSETRON INJ 2 MG/ML 2 ML VIAL IV PRN (14:37)
[2017-02-01] MEDS ORDERED: NURSING VERBAL MED ORDER ONE (14:45)
[2017-02-01 16:01] VITALS: BP 159/92; PULSE 50; TEMP 36.6; O2SAT 97
--- NOTE | 2017-02-01 18:30 | Progress Note ---
Internal Med Progress Note Date of Service: Feb 01, 2017. Provider Documentation: SUBJECTIVE: Patient is seen and examined at bedside. States dizziness resolved. Abdominal pain is improving. Has chronic nausea. Refused B12 hot today. Offers no other complaints. OBJECTIVE: Vital Signs-as noted below Physical Exam: Vitals signs as noted above General Appearance:Moderately built and nourished, no apparent distress Head: normocephalic, Atraumatic Eyes: normal inspection, EOMI, PERRLA Neck: supple, Trachea midline Respiratory/Chest: Normal breath sounds, CTA, No accessory muscle use Cardiovascular: S1, S2, No murmur Abdomen/GI:Soft, Mild tenderness diffusely, Bowel sounds present Extremities/Musculoskelatal: RLE: Lymphedema and mild erythema, +edema, in bandage Neurologic/Psych:AAOX3, grossly no focal neurological deficits Skin: normal color, warm Lab data as noted below. ASSESSMENT & PLAN: Recurrent Acute Pancreatitis: Clinically Stable. Has mild abd pain, agreeable for IV fluids today Doesn't want any procedure including MRCP CT abdomen: (+) CBD and hepatic duct dilatation. cannot rule out pancreatic mass or stricture. Could have passed a stone Lipase level: trended down GI consulted, patient declining MRCP at this time Continue IV fluids Neutropenia: Likely secondary to acute illness and Zosyn Improving Afebrile H/O Testicular cancer Appreciate Oncology input Smudge cells and blasts noted on peripheral smear: Discussed with on 02/01/17 No further work up for now per oncology Hypokalemia: Resolved Continue to monitor Right Lower Leg Ulcers: Cellulitis-recurrent with Chronic Right Lower Extremity Edema/ Lymphedema Wound cultures: Enterobacter, staph, corynebacterium Blood cultures:negative Appreciate ID input Continue Wound care . S/P IV antibiotics for about 2 weeks so have stopped Zosyn on 2016 Constipation: Continue bowel regimen Avoid Narcotics S/P Fall secondary to Lethargy: Likely secondary to dehydration,hypotension and infection CT head: negative Blood cultures: negative PT/OT Hypertension: Elevated secondary to noncompliance Continue lisinopril Continue to monitor History R Testicular CA s/p surgery Stable. Chronic Anemia: Multifactorial Refuses B12 shots as recommended IV Venofer one time per oncology Refuses scopes for further work up H/O DVT as per records. Patient is off anticoagulants being homelessness/ Non compliant Schizophrenia(Paranoid): Refused appropriate medical management Counselled DVT Px: Sq Heparin Code Status: FULL CODE Disposition: Patient is homeless. financial services agent consulted Vital Signs: Date Time Temp Pulse Resp B/P Pulse Ox O2 Delivery O2 Flow Rate FiO2 02/01/17 16:30 Room Air 02/01/17 16:01 36.6 50 16 159/92 97 Room Air 02/01/17 10:18 157/90 02/01/17 09:00 97 Room Air 02/01/17 07:21 36.5 50 12 146/87 97 Room Air 02/01/17 00:28 37.1 60 18 150/80 96 Room Air 02/01/17 00:00 Room Air 01/31/17 19:30 Room Air Lab Results: Results Past 24 Hours Test 02/01/17 06:30 Range/Units White Blood Count 2.19 4.8-10.8 K/uL Red Blood Count 4.08 4.7-6.1 M/uL Hemoglobin 10.9 14.0-18.0 g/dL Hematocrit 34.0 42-52 % Mean Corpuscular Volume 83.3 80-100 fL Mean Corpuscular Hemoglobin 26.7 25-34 pg Mean Corpuscular Hemoglobin Concent 32.1 32-36 g/dl Platelet Count 139 130-400 K/uL Mean Platelet Volume 9.2 7.4-10.4 fL RDW Standard Deviation 45.8 36.4-46.3 fL RDW Coefficient of Variation 14.9 11.5-14.5 % Neutrophils % (Manual) 30.7 % Lymphocytes % (Manual) 46.5 % Monocytes % (Manual) 18.4 % Eosinophils % (Manual) 3.5 % Blast Cells % 0.9 % Neutrophils # (Manual) 0.67 1.4-6.5 K/uL Total Absolute Neutrophils 0.67 1.4-6.5 K/uL Lymphocytes # (Manual) 1.02 1.2-3.4 K/uL Total Absolute Lymphocytes 1.02 1.2-3.4 K/uL Monocytes # (Manual) 0.40 0.11-0.59 K/uL Eosinophils # (Manual) 0.08 0-0.5 K/uL Blast Cells # 0.02 0-0 K/uL Smudge Cells PRESENT Red Blood Cell Morphology Unremarkable Absolute Reticulocyte Count < 0.02 0.02-0.10 10^6/uL Percent Reticulocyte Count < 0.5 0.5-2.0 % Sodium Level 141 136-145 mmol/L Potassium Level 3.7 3.5-5.1 mmol/L Chloride Level 110 98-107 mmol/L Carbon Dioxide Level 24 21-32 mmol/L Anion Gap 7.0 3-11 mmol/L Blood Urea Nitrogen 14 7-18 mg/dl Creatinine 0.88 0.60-1.40 mg/dl Est Creatinine Clear Calc Drug Dose 82.0 ml/min Estimated GFR () 105.2 Estimated GFR (Non- 90.8 BUN/Creatinine Ratio 16.1 10-20 Random Glucose 77 70-99 mg/dl Calcium Level 8.0 8.5-10.1 mg/dl Iron Level 22 35-175 mcg/dl Total Iron Binding Capacity 262 250-450 mcg/dl Transferrin 202 200-360 mg/dl Transferrin % Saturation 8 20-50 % Ferritin 21.7 8.0-388.0 ng/ml
[2017-02-01] MEDS ORDERED: IRON SUCROSE INJ 100 MG in SODIUM CHLORIDE 0.9% 100ML 100 ML IV ONE (19:00)
[2017-02-01] MEDS: HYDROmorphone INJ 0.5 MG/0.5 ML SYR IV PRN (21:55)
[2017-02-01 22:42] LABS: BUN/CREATININE RATIO 15.5 (10-20); CALCIUM 7.9 mg/dl (8.5-10.1); CREATININE 0.82 mg/dl (0.60-1.40); POTASSIUM 4.2 mmol/L (3.5-5.1)
[2017-02-01 22:44] LABS: ALB/GLOB RATIO 0.8 (0.9-2)
[2017-02-01 22:57] VITALS: BP 134/82; PULSE 85; TEMP 36.6; O2SAT 95
[2017-02-02] VITALS (7 sets, daily range): BP systolic 157–213; BP diastolic 70–104; PULSE 48–65; TEMP 36.3–37; O2SAT 95–96
[2017-02-02] MEDS: METOCLOPRAMIDE HCL INJ 5 MG/ML 2 ML VIAL IV SCH ×4 (05:24→23:35)
[2017-02-02 06:51] LABS: HEMATOCRIT 34.4 % (42-52); MEAN CELL VOLUME 84.9 fL (80-100); MEAN CORPUSCULAR HEMOGLOBIN 26.9 pg (25-34); MEAN CORPUSCULAR HGB CONC 31.7 g/dl (32-36); MEAN PLATELET VOLUME 10.4 fL (7.4-10.4); PLATELET COUNT 133 K/uL (130-400); RED BLOOD COUNT 4.05 M/uL (4.7-6.1); WHITE BLOOD COUNT 3.23 K/uL (4.8-10.8)
[2017-02-02 07:25] LABS: BUN/CREATININE RATIO 12.7 (10-20); CALCIUM 7.9 mg/dl (8.5-10.1); CREATININE 0.89 mg/dl (0.60-1.40); POTASSIUM 4.2 mmol/L (3.5-5.1)
[2017-02-02] MEDS: LISINOPRIL 10 MG TAB PO SCH (07:54)
[2017-02-02] MEDS: DOCUSATE SODIUM 100 MG CAP PO SCH ×2 (07:57→19:33)
[2017-02-02] MEDS: ENOXAPARIN 40 MG/0.4 ML SYR SQ SCH (07:57)
[2017-02-02] MEDS: HYDROmorphone INJ 0.5 MG/0.5 ML SYR IV PRN ×5 (08:17→22:35)
[2017-02-02 09:14] LABS: BASO ABS # 0.09 K/uL (0-0.2); BASOPHIL % 2.7 % (0-2); COMPLETE YES; EOSINOPHIL % 5.5 %; LYMPH ABS # 1.06 K/uL (1.2-3.4); LYMPHOCYTE % 32.7 %; NEUTROPHILS % 42.8 %; VARIANT LYM ABS # 0.41 K/uL; VARIANT LYMPHOCYTE % 12.7 %
[2017-02-02] MEDS: ONDANSETRON INJ 2 MG/ML 2 ML VIAL IV PRN ×2 (09:18→19:39)
[2017-02-02] MEDS: SODIUM CHLOR 0.45% + 20MEQ KCL 1,000 ML IV SCH (09:19)
--- NOTE | 2017-02-02 09:47 | Infectious Disease Progress Nt ---
Progress Note Date of Service Feb 02, 2017. Subjective Pt evaluation today including: conversation w/ patient, physical exam, chart review, lab review, review of studies, review of inpatient medication list Patient is feeling nauseated this morning and has a "stomach ache". He has been neutropenic over the past few days. Neutrophil count today was 1.38. WBC count was 3.23. Lipase yesterday wa noted to be elevated again to 574. The patient is on and off vomiting this morning. Nothing makes his stomach feel better. He continues to refuse further abdominal imaging stating "the MRI will not show anything the CAT scan couldn't see". Inpatient wound images were all reviewed today. Note improvement of RLE. All Other Systems: Reviewed and Negative Medications Current Inpatient Medications Medications (Trade) Dose Ordered Sig/Marilyn Route Start Time Stop Time Status Last Admin Dose Admin Miscellaneous (Iv Fluids Completed) 1 ea PRN PRN N/A 01/03/17 05:45 01/03/18 05:44 Clonidine HCl (Catapres Tab) 0.1 mg Q6H PRN PO 01/03/17 09:15 02/16/17 09:14 01/27/17 18:26 0.1 MG Tramadol HCl (Ultram Tab) not relieved by tylenol @ Q6H PRN PO 01/06/17 05:15 02/05/17 05:14 01/31/17 19:25 50 MG Al Hydrox/Mg Hydrox/Simethicone (Maalox Max Susp) 30 ml Q6H PRN PO 01/07/17 09:45 02/06/17 09:44 Docusate Sodium (coLACE CAP) 100 mg BID PO 01/24/17 20:00 02/23/17 19:59 01/31/17 08:39 100 MG Enoxaparin Sodium (Lovenox Inj) 40 mg QAM SQ 01/26/17 08:00 02/25/17 07:59 Lisinopril (Zestril Tab) 30 mg QAM PO 01/28/17 08:00 02/27/17 07:59 02/02/17 07:54 30 MG Metoclopramide HCl (Reglan Inj) 10 mg Q6H IV 01/29/17 18:00 02/28/17 17:59 Dicyclomine HCl 10 mg 10 mg Q6 PRN PO 01/29/17 17:00 02/28/17 16:59 Promethazine HCl 12.5 mg/Sodium Chloride 50.5 ml @ 204 mls/hr Q6H PRN IV 01/30/17 12:00 03/01/17 11:59 Potassium Chloride/Sodium Chloride (1/2 Nss + 20meq KCl 1000ml) 1,000 ml @ 100 mls/hr Q10H IV 01/31/17 16:00 03/02/17 15:59 02/02/17 09:19 100 MLS/HR Cyanocobalamin (Vitamin B-12 Inj) 1,000 mcg Q7D SC 02/01/17 07:00 02/22/17 07:01 Ondansetron HCl (Zofran Inj) 4 mg Q6H PRN IV 02/01/17 14:45 03/03/17 14:44 02/02/17 09:18 4 MG Hydromorphone HCl (Dilaudid Inj) 0.5 mg Q3H PRN IV 02/01/17 21:30 02/15/17 21:29 02/02/17 08:17 0.5 MG Objective Vital Signs Date Time Temp Pulse Resp B/P Pulse Ox O2 Delivery O2 Flow Rate FiO2 02/02/17 07:30 36.3 55 20 180/95 96 Room Air 176/81 02/02/17 00:00 Room Air 02/01/17 22:57 36.6 85 18 134/82 95 Room Air 02/01/17 16:30 Room Air 02/01/17 16:01 36.6 50 16 159/92 97 Room Air 02/01/17 10:18 157/90 Physical Exam General Appearance: WD/WN, + moderate distress Eyes: normal inspection, sclerae normal ENT: hearing grossly normal Neck: supple, trachea midline Respiratory/Chest: no respiratory distress, no accessory muscle use Extremities: normal range of motion Neurologic/Psychiatric: alert Skin: normal color Laboratory Results Last 24 Hours Test 02/01/17 22:00 02/02/17 06:20 Sodium Level 142 mmol/L 141 mmol/L Potassium Level 4.2 mmol/L 4.2 mmol/L Chloride Level 110 mmol/L 110 mmol/L Carbon Dioxide Level 26 mmol/L 25 mmol/L Anion Gap 6.0 mmol/L 6.0 mmol/L Blood Urea Nitrogen 13 mg/dl 11 mg/dl Creatinine 0.82 mg/dl 0.89 mg/dl Est Creatinine Clear Calc Drug Dose 88.0 ml/min 81.1 ml/min Estimated GFR () 108.3 104.7 Estimated GFR (Non- 93.5 90.4 BUN/Creatinine Ratio 15.5 12.7 Random Glucose 108 mg/dl 78 mg/dl Calcium Level 7.9 mg/dl 7.9 mg/dl Total Bilirubin 0.4 mg/dl Aspartate Amino Transf (AST/SGOT) 25 U/L Alanine Aminotransferase (ALT/SGPT) 21 U/L Alkaline Phosphatase 275 U/L Total Protein 6.5 gm/dl Albumin 2.8 gm/dl Globulin 3.7 gm/dl Albumin/Globulin Ratio 0.8 Lipase 574 U/L White Blood Count 3.23 K/uL Red Blood Count 4.05 M/uL Hemoglobin 10.9 g/dL Hematocrit 34.4 % Mean Corpuscular Volume 84.9 fL Mean Corpuscular Hemoglobin 26.9 pg Mean Corpuscular Hemoglobin Concent 31.7 g/dl Platelet Count 133 K/uL Mean Platelet Volume 10.4 fL RDW Standard Deviation 47.1 fL RDW Coefficient of Variation 15.0 % Neutrophils % (Manual) 42.8 % Lymphocytes % (Manual) 32.7 % Variant Lymphocytes % (manual) 12.7 % Monocytes % (Manual) 3.6 % Eosinophils % (Manual) 5.5 % Basophils % (Manual) 2.7 % Neutrophils # (Manual) 1.38 K/uL Total Absolute Neutrophils 1.38 K/uL Lymphocytes # (Manual) 1.06 K/uL Absolute Variant Lymphocytes 0.41 K/uL Total Absolute Lymphocytes 1.47 K/uL Monocytes # (Manual) 0.12 K/uL Eosinophils # (Manual) 0.18 K/uL Basophils # (Manual) 0.09 K/uL Red Blood Cell Morphology Unremarkable Assessment and Plan Patient with chronic lymphedema and wound infection with surrounding cellulitis of the right lower extremity- cellulitis appears to be resolved and wounds are healing. Patient completed IV Zosyn and has been off of abx at this time. He continues to have pancytopenia and elevated lipase. Recommended to the patient that he consider further abdominal imaging/intervention. He stated he would think about it. ID will sign off. Call with questions. Thanks Case reviewed and agree with above assessment.
[2017-02-02] MEDS ORDERED: NURSING VERBAL MED ORDER ONE ×3 (11:00→17:30)
--- NOTE | 2017-02-02 13:56 | Progress Note ---
Internal Med Progress Note Date of Service: Feb 02, 2017. Provider Documentation: SUBJECTIVE: Patient is seen and examined at bedside. Refuses medications per staff. States having nausea and an episode of vomiting today. Abdominal pain is worse today, he requests pain medications and still doesn't want to get MRCP done. OBJECTIVE: Vital Signs-as noted below Physical Exam: Vitals signs as noted above General Appearance:Moderately built and nourished, no apparent distress Head: normocephalic, Atraumatic Eyes: normal inspection, EOMI, PERRLA Neck: supple, Trachea midline Respiratory/Chest: Normal breath sounds, CTA, No accessory muscle use Cardiovascular: S1, S2, No murmur Abdomen/GI:Soft, + tenderness diffusely, Bowel sounds present Extremities/Musculoskelatal: RLE: Lymphedema and mild erythema, +edema, in bandage Neurologic/Psych:AAOX3, grossly no focal neurological deficits Skin: normal color, warm Lab data as noted below. ASSESSMENT & PLAN: Recurrent Acute Pancreatitis: Clinically Stable. Has mild abd pain, agreeable for IV fluids today Doesn't want any procedure including MRCP CT abdomen: (+) CBD and hepatic duct dilatation. cannot rule out pancreatic mass or stricture. Could have passed a stone Lipase level: trended down GI consulted, patient declining MRCP at this time Continue IV fluids Will do clear liquid diet for now Pain control Refuses further investigations despite counselling Neutropenia: Likely secondary to acute illness and Zosyn Improving, Continue to monitor daily Afebrile H/O Testicular cancer Appreciate Oncology input Smudge cells and blasts noted on peripheral smear: Discussed with on 02/01/17 No further work up for now per oncology Hypokalemia: Resolved Continue to monitor Right Lower Leg Ulcers: Cellulitis-recurrent with Chronic Right Lower Extremity Edema/ Lymphedema Wound cultures: Enterobacter, staph, corynebacterium Blood cultures:negative Appreciate ID input Continue Wound care . S/P IV antibiotics for about 2 weeks so have stopped Zosyn on 2016 Constipation: Continue bowel regimen Avoid Narcotics S/P Fall secondary to Lethargy: Likely secondary to dehydration,hypotension and infection CT head: negative Blood cultures: negative PT/OT Hypertension: Elevated secondary to noncompliance Continue lisinopril Continue to monitor History R Testicular CA s/p surgery Stable. Chronic Anemia: Multifactorial Refuses B12 shots as recommended IV Venofer one time per oncology Refuses scopes for further work up H/O DVT as per records. Patient is off anticoagulants being homelessness/ Non compliant Schizophrenia(Paranoid): Refused appropriate medical management Counselled DVT Px: Sq Heparin Code Status: FULL CODE Disposition: Patient is homeless. adult services librarian consulted Vital Signs: Date Time Temp Pulse Resp B/P Pulse Ox O2 Delivery O2 Flow Rate FiO2 02/02/17 09:48 52 159/83 02/02/17 07:45 Room Air 02/02/17 07:30 36.3 55 20 180/95 96 Room Air 176/81 02/02/17 00:00 Room Air 02/01/17 22:57 36.6 85 18 134/82 95 Room Air 02/01/17 16:30 Room Air 02/01/17 16:01 36.6 50 16 159/92 97 Room Air Lab Results: Results Past 24 Hours Test 02/01/17 22:00 02/02/17 06:20 Range/Units Sodium Level 142 141 136-145 mmol/L Potassium Level 4.2 4.2 3.5-5.1 mmol/L Chloride Level 110 110 98-107 mmol/L Carbon Dioxide Level 26 25 21-32 mmol/L Anion Gap 6.0 6.0 3-11 mmol/L Blood Urea Nitrogen 13 11 7-18 mg/dl Creatinine 0.82 0.89 0.60-1.40 mg/dl Est Creatinine Clear Calc Drug Dose 88.0 81.1 ml/min Estimated GFR () 108.3 104.7 Estimated GFR (Non- 93.5 90.4 BUN/Creatinine Ratio 15.5 12.7 10-20 Random Glucose 108 78 70-99 mg/dl Calcium Level 7.9 7.9 8.5-10.1 mg/dl Total Bilirubin 0.4 0.2-1 mg/dl Aspartate Amino Transf (AST/SGOT) 25 15-37 U/L Alanine Aminotransferase (ALT/SGPT) 21 12-78 U/L Alkaline Phosphatase 275 45-117 U/L Total Protein 6.5 6.4-8.2 gm/dl Albumin 2.8 3.4-5.0 gm/dl Globulin 3.7 2.5-4.0 gm/dl Albumin/Globulin Ratio 0.8 0.9-2 Lipase 574 73-393 U/L White Blood Count 3.23 4.8-10.8 K/uL Red Blood Count 4.05 4.7-6.1 M/uL Hemoglobin 10.9 14.0-18.0 g/dL Hematocrit 34.4 42-52 % Mean Corpuscular Volume 84.9 80-100 fL Mean Corpuscular Hemoglobin 26.9 25-34 pg Mean Corpuscular Hemoglobin Concent 31.7 32-36 g/dl Platelet Count 133 130-400 K/uL Mean Platelet Volume 10.4 7.4-10.4 fL RDW Standard Deviation 47.1 36.4-46.3 fL RDW Coefficient of Variation 15.0 11.5-14.5 % Neutrophils % (Manual) 42.8 % Lymphocytes % (Manual) 32.7 % Variant Lymphocytes % (manual) 12.7 % Monocytes % (Manual) 3.6 % Eosinophils % (Manual) 5.5 % Basophils % (Manual) 2.7 0-2 % Neutrophils # (Manual) 1.38 1.4-6.5 K/uL Total Absolute Neutrophils 1.38 1.4-6.5 K/uL Lymphocytes # (Manual) 1.06 1.2-3.4 K/uL Absolute Variant Lymphocytes 0.41 K/uL Total Absolute Lymphocytes 1.47 1.2-3.4 K/uL Monocytes # (Manual) 0.12 0.11-0.59 K/uL Eosinophils # (Manual) 0.18 0-0.5 K/uL Basophils # (Manual) 0.09 0-0.2 K/uL Red Blood Cell Morphology Unremarkable
[2017-02-02] MEDS ORDERED: HydrALAZINE HCL 20 MG/ML VIAL IV. PRN (15:30)
[2017-02-02] MEDS ORDERED: CLONIDINE HCL 0.1 MG/24 HR TRANSDERM SYS TD SCH (18:00)
[2017-02-02] MEDS: FENTANYL PATCH REMOVE & WASTE SCH (18:59)
[2017-02-02] MEDS: CHECK CLONIDINE PATCH PLACEMENT SCH (19:33)
[2017-02-02] MEDS: FENTANYL 12 MCG/HR TDSY TD SCH (19:33)
[2017-02-02] MEDS: AMLODIPINE BESYLATE 5 MG TAB PO SCH (19:55)
[2017-02-02] MEDS: CHECK FENTANYL PATCH PLACEMENT SCH (23:36)
[2017-02-03 00:03] VITALS: BP 153/84; PULSE 55; TEMP 36.6; O2SAT 94
[2017-02-03] MEDS: METOCLOPRAMIDE HCL INJ 5 MG/ML 2 ML VIAL IV SCH ×3 (05:39→18:00)
[2017-02-03] MEDS: CHECK CLONIDINE PATCH PLACEMENT SCH ×3 (07:43→20:30)
[2017-02-03] MEDS: CHECK FENTANYL PATCH PLACEMENT SCH ×2 (07:43→15:43)
[2017-02-03] MEDS: AMLODIPINE BESYLATE 5 MG TAB PO SCH (07:43)
[2017-02-03 07:44] VITALS: BP 130/72; PULSE 44; TEMP 37; O2SAT 96
[2017-02-03] MEDS: LISINOPRIL 10 MG TAB PO SCH (07:44)
[2017-02-03] MEDS: ENOXAPARIN 40 MG/0.4 ML SYR SQ SCH (07:45)
[2017-02-03] MEDS: DOCUSATE SODIUM 100 MG CAP PO SCH ×2 (07:46→20:30)
[2017-02-03 08:00] LABS: BASO % 0.3 %; BASO ABS # 0.01 K/uL (0-0.2); COMPLETE YES; EOS % 3.7 %; HEMATOCRIT 38.4 % (42-52); IG% 0.3 %; LYMPH % 32.8 %; LYMPH ABS # 0.98 K/uL (1.2-3.4); MEAN CELL VOLUME 82.2 fL (80-100); MEAN CORPUSCULAR HEMOGLOBIN 26.8 pg (25-34); MEAN CORPUSCULAR HGB CONC 32.6 g/dl (32-36); MEAN PLATELET VOLUME 9.5 fL (7.4-10.4); MONO % 14.7 %; NEUT % 48.2 %; PLATELET COUNT 159 K/uL (130-400); RED BLOOD COUNT 4.67 M/uL (4.7-6.1); WHITE BLOOD COUNT 2.99 K/uL (4.8-10.8)
[2017-02-03 08:38] LABS: CREATININE 0.97 mg/dl (0.60-1.40); POTASSIUM 4.1 mmol/L (3.5-5.1)
[2017-02-03 15:35] VITALS: BP 138/75; PULSE 46; TEMP 36.6; O2SAT 94
--- NOTE | 2017-02-03 17:25 | Progress Note ---
Internal Med Progress Note Date of Service: Feb 03, 2017. Provider Documentation: SUBJECTIVE: Patient is seen and examined at bedside. Patient states he is feeling better today. Abd pain is much improved. Dizziness resolved. States having some nausea. Denies any chest pain, SOB. Offers no other complaints. OBJECTIVE: Vital Signs-as noted below Physical Exam: Vitals signs as noted above General Appearance:Moderately built and nourished, no apparent distress Head: normocephalic, Atraumatic Eyes: normal inspection, EOMI, PERRLA Neck: supple, Trachea midline Respiratory/Chest: Normal breath sounds, CTA, No accessory muscle use Cardiovascular: S1, S2, No murmur Abdomen/GI:Soft, non tender, Bowel sounds present Extremities/Musculoskelatal: RLE: Lymphedema and mild erythema, +edema, in bandage Neurologic/Psych:AAOX3, grossly no focal neurological deficits Skin: normal color, warm Lab data as noted below. ASSESSMENT & PLAN: Recurrent Acute Pancreatitis: Doesn't want any procedure including MRCP CT abdomen: (+) CBD and hepatic duct dilatation. cannot rule out pancreatic mass or stricture. Could have passed a stone Lipase level: trended down GI consulted, patient declining MRCP at this time S/P IV fluids Continue clear liquid diet today Will advance diet as tolerated Pain control Refuses further investigations despite counselling on multiple occasions Neutropenia: Likely secondary to acute illness and Zosyn Improving, Continue to monitor daily Afebrile H/O Testicular cancer Appreciate Oncology input Smudge cells and blasts noted on peripheral smear: Discussed with on 02/01/17 No further work up for now per oncology Hypertension: Elevated secondary to noncompliance/Pain BP better Continue current meds Continue to monitor Hypokalemia: Resolved Continue to monitor Right Lower Leg Ulcers: Cellulitis-recurrent with Chronic Right Lower Extremity Edema/ Lymphedema Wound cultures: Enterobacter, staph, corynebacterium Blood cultures:negative Appreciate ID input Continue Wound care . S/P IV antibiotics for about 2 weeks so have stopped Zosyn on 2016 Constipation: Continue bowel regimen Avoid Narcotics S/P Fall secondary to Lethargy: Likely secondary to dehydration,hypotension and infection CT head: negative Blood cultures: negative PT/OT History R Testicular CA s/p surgery Stable. Chronic Anemia: Multifactorial Refuses B12 shots as recommended IV Venofer one time per oncology: Refused Refuses scopes for further work up H/O DVT as per records. Patient is off anticoagulants being homelessness/ Non compliant Schizophrenia(Paranoid): Refused appropriate medical management Counselled DVT Px: Sq Heparin Code Status: FULL CODE Disposition: Patient is homeless. technical services consultant consulted Vital Signs: Date Time Temp Pulse Resp B/P Pulse Ox O2 Delivery O2 Flow Rate FiO2 02/03/17 15:45 Room Air 02/03/17 15:35 36.6 46 16 138/75 94 02/03/17 08:00 Room Air 02/03/17 07:44 37.0 44 16 130/72 96 02/03/17 00:03 36.6 55 18 153/84 94 Room Air 02/03/17 00:00 Room Air 02/02/17 20:30 Room Air 02/02/17 20:30 157/89 02/02/17 19:00 51 174/86 Lab Results: Results Past 24 Hours Test 02/03/17 07:32 Range/Units White Blood Count 2.99 4.8-10.8 K/uL Red Blood Count 4.67 4.7-6.1 M/uL Hemoglobin 12.5 14.0-18.0 g/dL Hematocrit 38.4 42-52 % Mean Corpuscular Volume 82.2 80-100 fL Mean Corpuscular Hemoglobin 26.8 25-34 pg Mean Corpuscular Hemoglobin Concent 32.6 32-36 g/dl Platelet Count 159 130-400 K/uL Mean Platelet Volume 9.5 7.4-10.4 fL Neutrophils (%) (Auto) 48.2 % Lymphocytes (%) (Auto) 32.8 % Monocytes (%) (Auto) 14.7 % Eosinophils (%) (Auto) 3.7 % Basophils (%) (Auto) 0.3 % Neutrophils # (Auto) 1.44 1.4-6.5 K/uL Lymphocytes # (Auto) 0.98 1.2-3.4 K/uL Monocytes # (Auto) 0.44 0.11-0.59 K/uL Eosinophils # (Auto) 0.11 0-0.5 K/uL Basophils # (Auto) 0.01 0-0.2 K/uL RDW Standard Deviation 44.4 36.4-46.3 fL RDW Coefficient of Variation 14.8 11.5-14.5 % Immature Granulocyte % (Auto) 0.3 % Immature Granulocyte # (Auto) 0.01 0.00-0.02 K/uL Sodium Level 144 136-145 mmol/L Potassium Level 4.1 3.5-5.1 mmol/L Chloride Level 110 98-107 mmol/L Carbon Dioxide Level 24 21-32 mmol/L Anion Gap 10.0 3-11 mmol/L Blood Urea Nitrogen 10 7-18 mg/dl Creatinine 0.97 0.60-1.40 mg/dl Est Creatinine Clear Calc Drug Dose 74.4 ml/min Estimated GFR () 95.2 Estimated GFR (Non- 82.2 BUN/Creatinine Ratio 10.0 10-20 Random Glucose 87 70-99 mg/dl Calcium Level 9.0 8.5-10.1 mg/dl Chemistry Specimen Hemolysis
[2017-02-03 23:43] VITALS: BP 110/70; PULSE 40; PULSE 70; TEMP 36.3; O2SAT 95
[2017-02-04] MEDS: METOCLOPRAMIDE HCL INJ 5 MG/ML 2 ML VIAL IV SCH ×4 (06:00→17:50)
[2017-02-04 06:23] LABS: BASO % 0.6 %; BASO ABS # 0.02 K/uL (0-0.2); COMPLETE YES; EOS % 3.8 %; HEMATOCRIT 36.2 % (42-52); LYMPH % 25.3 %; LYMPH ABS # 0.86 K/uL (1.2-3.4); MEAN CELL VOLUME 82.6 fL (80-100); MEAN CORPUSCULAR HEMOGLOBIN 26.9 pg (25-34); MEAN CORPUSCULAR HGB CONC 32.6 g/dl (32-36); MEAN PLATELET VOLUME 9.5 fL (7.4-10.4); NEUT % 60.3 %; PLATELET COUNT 152 K/uL (130-400); RED BLOOD COUNT 4.38 M/uL (4.7-6.1)
[2017-02-04 06:56] LABS: BUN/CREATININE RATIO 15.8 (10-20); CALCIUM 8.5 mg/dl (8.5-10.1); POTASSIUM 3.5 mmol/L (3.5-5.1)
[2017-02-04 07:13] VITALS: BP 140/79; PULSE 85; TEMP 36.5; O2SAT 97
[2017-02-04] MEDS: DOCUSATE SODIUM 100 MG CAP PO SCH ×2 (08:00→20:00)
[2017-02-04] MEDS: ENOXAPARIN 40 MG/0.4 ML SYR SQ SCH (08:00)
[2017-02-04] MEDS: AMLODIPINE BESYLATE 5 MG TAB PO SCH (08:07)
[2017-02-04] MEDS: LISINOPRIL 10 MG TAB PO SCH (08:07)
[2017-02-04] MEDS: CHECK FENTANYL PATCH PLACEMENT SCH ×3 (08:08→16:23)
[2017-02-04] MEDS: CHECK CLONIDINE PATCH PLACEMENT SCH ×3 (08:08→20:28)
--- NOTE | 2017-02-04 15:53 | Progress Note ---
Internal Med Progress Note Date of Service: Feb 04, 2017. Provider Documentation: SUBJECTIVE: Patient is seen and examined at bedside. Nausea and abd pain much improved. Denies any chest pain, SOB. Offers no other complaints. OBJECTIVE: Vital Signs-as noted below Physical Exam: Vitals signs as noted above General Appearance:Moderately built and nourished, no apparent distress Head: normocephalic, Atraumatic Eyes: normal inspection, EOMI, PERRLA Neck: supple, Trachea midline Respiratory/Chest: Normal breath sounds, CTA, No accessory muscle use Cardiovascular: S1, S2, No murmur Abdomen/GI:Soft, non tender, Bowel sounds present Extremities/Musculoskelatal: RLE: Lymphedema and mild erythema, +edema, in bandage Neurologic/Psych:AAOX3, grossly no focal neurological deficits Skin: normal color, warm Lab data as noted below. ASSESSMENT & PLAN: Recurrent Acute Pancreatitis: Doesn't want any procedure including MRCP CT abdomen: (+) CBD and hepatic duct dilatation. cannot rule out pancreatic mass or stricture. Could have passed a stone Lipase level: trended down GI consulted, patient declining MRCP at this time DC IV fluids Pain control Refuses further investigations despite counselling on multiple occasions Will advance to GI soft diet Neutropenia: Likely secondary to acute illness and Zosyn Improving, Continue to monitor daily Afebrile H/O Testicular cancer Appreciate Oncology input Smudge cells and blasts noted on peripheral smear: Discussed with on 02/01/17 No further work up for now per oncology Hypertension: Elevated secondary to noncompliance/Pain BP controlled Continue current meds Continue to monitor Hypokalemia: Resolved Continue to monitor Right Lower Leg Ulcers: Cellulitis-recurrent with Chronic Right Lower Extremity Edema/ Lymphedema Wound cultures: Enterobacter, staph, corynebacterium Blood cultures:negative Appreciate ID input Continue Wound care . S/P IV antibiotics for about 2 weeks so have stopped Zosyn on 2016 Constipation: Continue bowel regimen Avoid Narcotics S/P Fall secondary to Lethargy: Likely secondary to dehydration,hypotension and infection CT head: negative Blood cultures: negative PT/OT History R Testicular CA s/p surgery Stable. Chronic Anemia: Multifactorial Refuses B12 shots as recommended IV Venofer one time per oncology: Refused Refuses scopes for further work up H/O DVT as per records. Patient is off anticoagulants being homelessness/ Non compliant Schizophrenia(Paranoid): Refused appropriate medical management Counselled DVT Px: Sq Heparin Code Status: FULL CODE Disposition: Patient is homeless. director emergency services consulted Vital Signs: Date Time Temp Pulse Resp B/P Pulse Ox O2 Delivery O2 Flow Rate FiO2 02/04/17 15:57 36.3 48 16 116/74 94 Room Air 02/04/17 15:45 Room Air 02/04/17 08:00 Room Air 02/04/17 07:13 36.5 85 18 140/79 97 Room Air 02/03/17 23:59 Room Air 02/03/17 23:43 36.3 40 18 110/70 95 Room Air 02/03/17 20:00 Room Air Lab Results: Results Past 24 Hours Test 02/04/17 06:14 Range/Units White Blood Count 3.40 4.8-10.8 K/uL Red Blood Count 4.38 4.7-6.1 M/uL Hemoglobin 11.8 14.0-18.0 g/dL Hematocrit 36.2 42-52 % Mean Corpuscular Volume 82.6 80-100 fL Mean Corpuscular Hemoglobin 26.9 25-34 pg Mean Corpuscular Hemoglobin Concent 32.6 32-36 g/dl Platelet Count 152 130-400 K/uL Mean Platelet Volume 9.5 7.4-10.4 fL Neutrophils (%) (Auto) 60.3 % Lymphocytes (%) (Auto) 25.3 % Monocytes (%) (Auto) 10.0 % Eosinophils (%) (Auto) 3.8 % Basophils (%) (Auto) 0.6 % Neutrophils # (Auto) 2.05 1.4-6.5 K/uL Lymphocytes # (Auto) 0.86 1.2-3.4 K/uL Monocytes # (Auto) 0.34 0.11-0.59 K/uL Eosinophils # (Auto) 0.13 0-0.5 K/uL Basophils # (Auto) 0.02 0-0.2 K/uL RDW Standard Deviation 45.4 36.4-46.3 fL RDW Coefficient of Variation 14.8 11.5-14.5 % Immature Granulocyte % (Auto) 0.0 % Immature Granulocyte # (Auto) 0.00 0.00-0.02 K/uL Sodium Level 143 136-145 mmol/L Potassium Level 3.5 3.5-5.1 mmol/L Chloride Level 109 98-107 mmol/L Carbon Dioxide Level 27 21-32 mmol/L Anion Gap 7.0 3-11 mmol/L Blood Urea Nitrogen 16 7-18 mg/dl Creatinine 1.00 0.60-1.40 mg/dl Est Creatinine Clear Calc Drug Dose 72.2 ml/min Estimated GFR () 91.8 Estimated GFR (Non- 79.2 BUN/Creatinine Ratio 15.8 10-20 Random Glucose 92 70-99 mg/dl Calcium Level 8.5 8.5-10.1 mg/dl
[2017-02-04 15:57] VITALS: BP 116/74; PULSE 48; TEMP 36.3; O2SAT 94
[2017-02-04 23:50] VITALS: BP 124/76; PULSE 46; TEMP 36.4; O2SAT 95
[2017-02-05] MEDS: CHECK FENTANYL PATCH PLACEMENT SCH ×3 (00:01→15:52)
[2017-02-05] MEDS: KETOROLAC TROMETHAMINE 30 MG/ML VIAL IV PRN (00:19)
[2017-02-05 05:53] LABS: BASO % 0.3 %; BASO ABS # 0.01 K/uL (0-0.2); COMPLETE YES; EOS % 3.8 %; HEMATOCRIT 36.5 % (42-52); IG% 0.3 %; LYMPH % 25.6 %; LYMPH ABS # 0.94 K/uL (1.2-3.4); MEAN CELL VOLUME 84.1 fL (80-100); MEAN CORPUSCULAR HGB CONC 32.1 g/dl (32-36); MEAN PLATELET VOLUME 10.5 fL (7.4-10.4); PLATELET COUNT 182 K/uL (130-400); RED BLOOD COUNT 4.34 M/uL (4.7-6.1); WHITE BLOOD COUNT 3.67 K/uL (4.8-10.8)
[2017-02-05] MEDS: METOCLOPRAMIDE HCL INJ 5 MG/ML 2 ML VIAL IV SCH ×4 (06:00→17:37)
[2017-02-05 06:21] LABS: CREATININE 1.1 mg/dl (0.60-1.40)
[2017-02-05 06:22] LABS: BUN/CREATININE RATIO 19.1 (10-20); CALCIUM 8.2 mg/dl (8.5-10.1); POTASSIUM 3.5 mmol/L (3.5-5.1)
[2017-02-05 07:14] VITALS: BP 162/87; PULSE 40; TEMP 36.3; O2SAT 97
[2017-02-05] MEDS: DOCUSATE SODIUM 100 MG CAP PO SCH ×2 (08:00→20:00)
[2017-02-05] MEDS: ENOXAPARIN 40 MG/0.4 ML SYR SQ SCH (08:00)
[2017-02-05] MEDS: CHECK CLONIDINE PATCH PLACEMENT SCH ×3 (08:18→20:02)
[2017-02-05] MEDS: LISINOPRIL 10 MG TAB PO SCH (08:18)
[2017-02-05 15:15] VITALS: BP 132/88; PULSE 47; TEMP 36.5; O2SAT 97
--- NOTE | 2017-02-05 16:59 | Progress Note ---
Internal Med Progress Note Date of Service: Feb 05, 2017. Provider Documentation: SUBJECTIVE: Patient is seen and examined at bedside. States abd pain, nausea is improved. Dizziness resolved. Still adamant about not undergoing further evaluation. Offers no new complaints. OBJECTIVE: Vital Signs-as noted below Physical Exam: Vitals signs as noted above General Appearance:Moderately built and nourished, no apparent distress Head: normocephalic, Atraumatic Eyes: normal inspection, EOMI, PERRLA Neck: supple, Trachea midline Respiratory/Chest: Normal breath sounds, CTA, No accessory muscle use Cardiovascular: S1, S2, No murmur Abdomen/GI:Soft, non tender, Bowel sounds present Extremities/Musculoskelatal: RLE: Lymphedema and mild erythema, +edema, in bandage Neurologic/Psych:AAOX3, grossly no focal neurological deficits Skin: normal color, warm Lab data as noted below. ASSESSMENT & PLAN: Recurrent Acute Pancreatitis: Doesn't want any procedure including MRCP CT abdomen: (+) CBD and hepatic duct dilatation. cannot rule out pancreatic mass or stricture. Could have passed a stone Lipase level: trended down Appreciate GI input, patient declining further evaluation and management S/P IV fluids Pain control Refuses further investigations despite counselling on multiple occasions Tolerating diet Neutropenia: Likely secondary to acute illness and Zosyn Counts continues to monitor Afebrile H/O Testicular cancer Appreciate Oncology input Smudge cells and blasts noted on peripheral smear: Discussed with on 02/01/17 No further work up for now per oncology Hypertension: Elevated secondary to noncompliance/Pain BP controlled Continue current meds Continue to monitor Hypokalemia: Resolved Continue to monitor Right Lower Leg Ulcers: Cellulitis-recurrent with Chronic Right Lower Extremity Edema/ Lymphedema Wound cultures: Enterobacter, staph, corynebacterium Blood cultures:negative Appreciate ID input Continue Wound care . S/P IV antibiotics for about 2 weeks so have stopped Zosyn on 2016 Constipation: Continue bowel regimen Avoid Narcotics S/P Fall secondary to Lethargy: Likely secondary to dehydration,hypotension and infection CT head: negative Blood cultures: negative PT/OT History R Testicular CA s/p surgery Stable. Chronic Anemia: Multifactorial Refuses B12 shots as recommended IV Venofer one time per oncology: Refused Refuses scopes for further work up H/O DVT as per records. Patient is off anticoagulants being homelessness/ Non compliant Schizophrenia(Paranoid): Refused appropriate medical management Counselled DVT Px: Sq Heparin Code Status: FULL CODE Disposition: Patient is homeless. consulting services project manager consulted Vital Signs: Date Time Temp Pulse Resp B/P Pulse Ox O2 Delivery O2 Flow Rate FiO2 02/05/17 16:00 Room Air 02/05/17 15:15 36.5 47 20 132/88 97 Room Air 02/05/17 08:00 Room Air 02/05/17 07:14 36.3 40 16 162/87 97 Room Air 02/04/17 23:59 Room Air 02/04/17 23:50 36.4 46 18 124/76 95 Room Air 02/04/17 20:00 Room Air Lab Results: Results Past 24 Hours Test 02/05/17 05:31 Range/Units White Blood Count 3.67 4.8-10.8 K/uL Red Blood Count 4.34 4.7-6.1 M/uL Hemoglobin 11.7 14.0-18.0 g/dL Hematocrit 36.5 42-52 % Mean Corpuscular Volume 84.1 80-100 fL Mean Corpuscular Hemoglobin 27.0 25-34 pg Mean Corpuscular Hemoglobin Concent 32.1 32-36 g/dl Platelet Count 182 130-400 K/uL Mean Platelet Volume 10.5 7.4-10.4 fL Neutrophils (%) (Auto) 58.0 % Lymphocytes (%) (Auto) 25.6 % Monocytes (%) (Auto) 12.0 % Eosinophils (%) (Auto) 3.8 % Basophils (%) (Auto) 0.3 % Neutrophils # (Auto) 2.13 1.4-6.5 K/uL Lymphocytes # (Auto) 0.94 1.2-3.4 K/uL Monocytes # (Auto) 0.44 0.11-0.59 K/uL Eosinophils # (Auto) 0.14 0-0.5 K/uL Basophils # (Auto) 0.01 0-0.2 K/uL RDW Standard Deviation 46.5 36.4-46.3 fL RDW Coefficient of Variation 14.9 11.5-14.5 % Immature Granulocyte % (Auto) 0.3 % Immature Granulocyte # (Auto) 0.01 0.00-0.02 K/uL Sodium Level 142 136-145 mmol/L Potassium Level 3.5 3.5-5.1 mmol/L Chloride Level 108 98-107 mmol/L Carbon Dioxide Level 26 21-32 mmol/L Anion Gap 8.0 3-11 mmol/L Blood Urea Nitrogen 21 7-18 mg/dl Creatinine 1.10 0.60-1.40 mg/dl Est Creatinine Clear Calc Drug Dose 65.6 ml/min Estimated GFR () 81.8 Estimated GFR (Non- 70.6 BUN/Creatinine Ratio 19.1 10-20 Random Glucose 95 70-99 mg/dl Calcium Level 8.2 8.5-10.1 mg/dl
[2017-02-05] MEDS: FENTANYL 12 MCG/HR TDSY TD SCH (18:46)
[2017-02-05] MEDS: FENTANYL PATCH REMOVE & WASTE SCH (18:47)
[2017-02-05 23:55] VITALS: BP 140/89; PULSE 53; TEMP 36.3; O2SAT 95
[2017-02-06] MEDS: CHECK FENTANYL PATCH PLACEMENT SCH ×3 (00:15→16:55)
[2017-02-06] MEDS: KETOROLAC TROMETHAMINE 30 MG/ML VIAL IV PRN (01:34)
[2017-02-06] MEDS: ONDANSETRON INJ 2 MG/ML 2 ML VIAL IV PRN ×2 (01:35→14:48)
[2017-02-06] MEDS: METOCLOPRAMIDE HCL INJ 5 MG/ML 2 ML VIAL IV SCH ×4 (06:00→16:55)
[2017-02-06 07:29] VITALS: BP 151/81; PULSE 40; TEMP 36.3; O2SAT 97
[2017-02-06] MEDS: DOCUSATE SODIUM 100 MG CAP PO SCH (08:00)
[2017-02-06] MEDS: ENOXAPARIN 40 MG/0.4 ML SYR SQ SCH (08:00)
[2017-02-06] MEDS: CHECK CLONIDINE PATCH PLACEMENT SCH ×2 (08:01→14:20)
[2017-02-06] MEDS: LISINOPRIL 10 MG TAB PO SCH (08:03)
[2017-02-06 11:58] VITALS: PULSE 54
--- NOTE | 2017-02-06 12:01 | Progress Note ---
Internal Med Progress Note Date of Service: Feb 06, 2017. Provider Documentation: SUBJECTIVE: Patient is seen and examined at bedside. States having chronic nausea but no vomiting. Denies abd pain, tolerating diet. Offers no new complaints. OBJECTIVE: Vital Signs-as noted below Physical Exam: Vitals signs as noted above General Appearance:Moderately built and nourished, no apparent distress Head: normocephalic, Atraumatic Eyes: normal inspection, EOMI, PERRLA Neck: supple, Trachea midline Respiratory/Chest: Normal breath sounds, CTA, No accessory muscle use Cardiovascular: S1, S2, No murmur Abdomen/GI:Soft, non tender, Bowel sounds present Extremities/Musculoskelatal: RLE: Lymphedema and mild erythema, +edema, in bandage Neurologic/Psych:AAOX3, grossly no focal neurological deficits Skin: normal color, warm Lab data as noted below. ASSESSMENT & PLAN: Recurrent Acute Pancreatitis: Doesn't want any procedure including MRCP CT abdomen: (+) CBD and hepatic duct dilatation. cannot rule out pancreatic mass or stricture. Could have passed a stone Lipase level: trended down Appreciate GI input, patient declining further evaluation and management S/P IV fluids Refuses further investigations despite counselling on multiple occasions Tolerating diet well Neutropenia: Resolved Likely secondary to acute illness and Zosyn Afebrile H/O Testicular cancer Appreciate Oncology input Smudge cells and blasts noted on peripheral smear: Discussed with on 02/01/17 No further work up for now per oncology Hypertension: Elevated secondary to noncompliance/Pain BP controlled Continue current meds Patient denies to be discharged on HTN medications Off note likely not going to fill prescriptions Hypokalemia: Resolved Continue to monitor Right Lower Leg Ulcers: Cellulitis-recurrent with Chronic Right Lower Extremity Edema/ Lymphedema Wound cultures: Enterobacter, staph, corynebacterium Blood cultures:negative Appreciate ID input Continue Wound care . S/P IV antibiotics for about 2 weeks so have stopped Zosyn on 2016 Constipation: Continue bowel regimen Avoid Narcotics S/P Fall secondary to Lethargy: Likely secondary to dehydration,hypotension and infection CT head: negative Blood cultures: negative PT/OT History R Testicular CA s/p surgery Stable. Chronic Anemia: Multifactorial Refuses B12 shots as recommended IV Venofer one time per oncology: Refused Refuses scopes for further work up H/O DVT as per records. Patient is off anticoagulants being homelessness/ Non compliant Schizophrenia(Paranoid): Refused appropriate medical management Counselled DVT Px: Sq Heparin Code Status: FULL CODE Disposition: Patient is homeless. building services coordinator consulted Plan to discharge today Vital Signs: Date Time Temp Pulse Resp B/P Pulse Ox O2 Delivery O2 Flow Rate FiO2 02/06/17 08:00 Room Air 02/06/17 07:29 36.3 40 20 151/81 97 Room Air 02/05/17 23:59 Room Air 02/05/17 23:55 36.3 53 18 140/89 95 Room Air 02/05/17 20:00 Room Air 02/05/17 16:00 Room Air 02/05/17 15:15 36.5 47 20 132/88 97 Room Air
[2017-02-06] MEDS ORDERED: ONDA8TAB62 SL (12:05)
[2017-02-06] MEDS ORDERED: LSN10 PO (12:05)
[2017-02-06] MEDS ORDERED: [UNRECOGNIZED DRUG - CODE] TD (12:05)
--- NOTE | 2017-02-06 12:07 | Discharge Summary ---
Discharge Summary Date of Service Feb 06, 2017. Discharge Summary Admission Date: Jan 07, 2017 at 11:16 Discharge Date: Feb 06, 2017 Discharge Disposition: Home Principal Diagnosis: Acute Pancreatitis Procedures: CT Head: No acute intracranial abnormality CT ABD: 1. Interval development of biliary and pancreatic ductal dilatation with mild infiltration adjacent to the pancreatic head, uncinate process and second portion of the duodenum. The findings raise the possibility of acute pancreatitis. The ductal dilatation may be related to acute pancreatitis. A mass cannot be excluded on this exam and therefore a short-term follow-up pancreatic protocol CT in one month is recommended. 2. Mild gallbladder distention with gallbladder wall thickening which has been shown on prior exams. Increased enhancement or attenuation within the adjacent liver parenchyma. Acute cholecystitis would be difficult to exclude on this exam. 3. Otherwise, no significant change in appearance of the abdomen and pelvis with multiple chronic findings, as described above. Repeat CT abd: 1. There is moderate intra and extrahepatic biliary ductal dilatation as well as mild dilatation of the pancreatic duct. The intrahepatic ducts appear mildly thick-walled and hyperemic. The appearance is highly concerning for biliary obstruction. A mass lesion would be impossible to exclude. GI consultation and ERCP is recommended for further assessment if not already performed. Infection of the biliary tree be impossible to exclude by imaging. 2. Wall thickening and hyperemia is seen in the distal stomach and proximal duodenum. There is surrounding inflammatory change which extends from the nella hepatis to the pancreatic head. This could be related to biliary obstruction, or could reflect acute pancreatitis and/or duodenitis. Correlation with clinical laboratory findings will be required. 3. The gallbladder is distended, thick-walled, and edematous. This is similar to the 01/07/2017 examination. Acute cholecystitis is not excluded. 4. 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 5. Cardiomegaly. 6. Numerous additional chronic changes as above. Consultations: ID, Gastro Pending Studies/Follow-Up: Follow up with your Primary Care physician in 1 week Medication Reconciliation New Medications: Ondansetron Odt (Zofran Odt) 8 Mg Soltab 8 MG SL Q6H PRN for Nausea for 10 Days, #40 TAB Clonidine HCl (Clonidine HCl) 1 Patch Tdsy 1 PATCH TD Th@1800 for 30 Days, #10 Lisinopril (Zestril) 10 Mg Tab 30 MG PO QAM for 30 Days, #30 TAB Admission Information HPI (per Admitting provider): CHIEF COMPLAINT: Dozing off. HX obtained from px and records. HISTORY OF PRESENT ILLNESS: Medical history is significant for schizophrenia, hypertension, medication noncompliance, hx DVT, Hx testicular cancer status post surgery, past tobacco abuse, chronic anemia ( baseline Hg 9). History of chronic RLE lymphedema. Recent confinement in May 2016 for rectal bleeding. Patient refused endoscopic evaluation. Last few days, the patient is dozing off more than usual. No chest pain, no shortness of breath. Px denies syncopal events. He had a head trauma a few days ago from dozing off. Seen at the ER. Workup was unremarkable. Px still a little sleepy tonight. Hit his head against a wall. Denies passing out. Some epistaxis. Head sore. Physical Exam (per Admitting): PHYSICAL EXAMINATION: VITAL SIGNS: Blood pressure 126/90, pulse rate 72, RR 18, temperature 36.6, and sats 98% on room air. GENERAL: Noted to be comfortable, wane. no respiratory distress. Unkempt. SKIN: Pallor. HEENT: pale palp conjunctivae, dry mucosa. NECK: Supple. CHEST: Clear to auscultation. HEART: RRR. ABDOMEN: Soft. EXTREMITIES: Induration, RLE (chronic) with foul smelling drainage (better than usual as per the patient) NEUROLOGIC: No gross focality. Hospital Course Recurrent Acute Pancreatitis: Doesn't want any procedure including MRCP CT abdomen: (+) CBD and hepatic duct dilatation. cannot rule out pancreatic mass or stricture. Could have passed a stone Lipase level: trended down Appreciate GI input, patient declining further evaluation and management S/P IV fluids Refuses further investigations despite counselling on multiple occasions Tolerating diet well Neutropenia: Resolved Likely secondary to acute illness and Zosyn Afebrile H/O Testicular cancer Appreciate Oncology input Smudge cells and blasts noted on peripheral smear: Discussed with on 02/01/17 No further work up for now per oncology Hypertension: Elevated secondary to noncompliance/Pain BP controlled Continue current meds Patient denies to be discharged on HTN medications Off note likely not going to fill prescriptions Hypokalemia: Resolved Continue to monitor Right Lower Leg Ulcers: Cellulitis-recurrent with Chronic Right Lower Extremity Edema/ Lymphedema Wound cultures: Enterobacter, staph, corynebacterium Blood cultures:negative Appreciate ID input Continue Wound care . S/P IV antibiotics for about 2 weeks so have stopped Zosyn on 2016 Constipation: Continue bowel regimen Avoid Narcotics S/P Fall secondary to Lethargy: Likely secondary to dehydration,hypotension and infection CT head: negative Blood cultures: negative PT/OT History R Testicular CA s/p surgery Stable. Chronic Anemia: Multifactorial Refuses B12 shots as recommended IV Venofer one time per oncology: Refused Refuses scopes for further work up H/O DVT as per records. Patient is off anticoagulants being homelessness/ Non compliant Schizophrenia(Paranoid): Refused appropriate medical management Counselled DVT Px: Sq Heparin Code Status: FULL CODE Disposition: Patient is homeless. library services coordinator consulted Plan to discharge today Total time spent on discharge = This includes examination of the patient, discharge planning, medication reconciliation, and communication with other providers. Discharge Instructions Discharge Instructions Date of Service Feb 06, 2017. Admission Reason for Admission: Sleepiness Discharge Discharge Diagnosis / Problem: Acute Pancreatitis Discharge Goals Goal(s): Decrease discomfort, Improve function Activity Recommendations Activity Limitations: resume your previous activity Exercise/Sports Limitations: as tolerated . Instructions / Follow-Up Instructions / Follow-Up Follow up with your Primary Care physician in 1 week Current Hospital Diet Patient's current hospital diet: Low Fiber Diet Discharge Diet Recommended Diet: Low Fiber Diet Pending Studies Studies pending at discharge: no Medical Emergencies . Who to Call and When: Medical Emergencies: If at any time you feel your situation is an emergency, please call 911 immediately. . Non-Emergent Contact Non-Emergency issues call your: Primary Care Provider Call Non-Emergent contact if: you have a fever, your pain is not controlled, your pain is worsening, your pain is unusual for you, you have any medication questions . . "Provider Documentation" section prepared by Uche Chatman. VTE Core Measure Inpt VTE Proph given/why not?: Enoxaparin (Lovenox)SQ
[2017-02-06 12:11] VITALS: BP 151/81; PULSE 54; TEMP 36.3; O2SAT 97
== END 2017-02-06 17:45 | disposition home or self-care (01) | DRG 438 ==
LOC: ENRESERVTM → CANRESERV → ENRESERVDT → EDBD 01:54 → C.EDB 01:57 → C.MS4W 05:02 → EDBEDREQSVC 05:04 → EDBEDREQ 05:04 → OBSVTOIN 01-07 11:16
PROVIDERS: ADMIT Internal Medicine; ATTEND Internal Medicine
DX: K85.90 Acute pancreatitis without necrosis or infection, unspecified (principal); K83.1 Obstruction of bile duct; L03.115 Cellulitis of right lower limb; L97.919 Non-pressure chronic ulcer of unspecified part of right lower leg with unspecified severity; K81.0 Acute cholecystitis; F20.0 Paranoid schizophrenia; I89.0 Lymphedema, not elsewhere classified; Z86.718 Personal history of other venous thrombosis and embolism; E86.0 Dehydration; I95.9 Hypotension, unspecified; Z85.47 Personal history of malignant neoplasm of testis; Z59.0 Homelessness; D64.9 Anemia, unspecified; I10 Essential (primary) hypertension; D70.9 Neutropenia, unspecified; Z87.891 Personal history of nicotine dependence; Z91.19 Patient's noncompliance with other medical treatment and regimen; K44.9 Diaphragmatic hernia without obstruction or gangrene; K29.80 Duodenitis without bleeding; K59.00 Constipation, unspecified; E87.6 Hypokalemia; G89.29 Other chronic pain; R33.9 Retention of urine, unspecified

== ENCOUNTER 2017-02-07 02:40 | Inpatient (IN) | payer OTHER ==
[~2017-02-07] VITALS: Ht 167.6 cm; Wt 52.2 kg
[~2017-02-07 02:40] MED LIST changes: +LSN10 PO; -LSN20 PO; -NRV5 PO; +ONDA8TAB62 SL; +[UNRECOGNIZED DRUG - CODE] TD
[2017-02-07] MEDS ORDERED: ONDANSETRON INJ 2 MG/ML 2 ML VIAL IV STA (02:57)
--- NOTE | 2017-02-07 02:59 | EMERGENCY ROOM VISIT NOTE ---
History Report prepared by Heather: Debbie Rordiguez Under the Supervision of: Dr. Zee Perry D.O. 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 The patient states that he was discharged today after a evaluation for pancreatitis. The patient states that he was still experiencing nausea and vomiting this morning but was discharged. He states that he was feeling better and was at [employer] for about 4 hours and then started to have some nausea. He states that he then tried to eat two hot dogs from [facility] and his nausea worsened and he started vomiting. The patient states that he has had normal dinner trays for the last few days while at the hospital. The patient denies any abdominal pain. 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 A total of 10 systems reviewed and were otherwise negative. 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 Surgical Problems: (1) Status post orchiectomy Social History Problems: (1) Pseudomonas Infect Nos (2) Syncope (3) Ulcer Of Other Part Of Lower Limb Family History No pertinent family history Social History Smoking Status: Former Smoker Alcohol Use: none Drug Use: none Housing Status: other Current/Historical Medications Scheduled Clonidine HCl (Clonidine HCl), 1 PATCH TD Th@1800 Lisinopril (Zestril), 30 MG PO QAM Scheduled PRN Ondansetron Odt (Zofran Odt), 8 MG SL Q6H PRN for Nausea Allergies Coded Allergies: Horse Dander (Verified Allergy, Unknown, HORSE HAIR, 02/07/17) Tetanus Toxoid (Verified Allergy, Unknown, 02/07/17) Physical Exam Vital Signs Date Time Temp Pulse Resp B/P Pulse Ox O2 Delivery O2 Flow Rate FiO2 3/21/17 03:59 60 18 144/81 96 Room Air 02/07/17 02:58 70 02/07/17 02:55 36.6 67 20 161/100 98 Room Air Physical Exam HEENT: Head - normocephalic and atraumatic Pupils are equal, round, and reactive to light. Extraocular eye muscles are intact, and sclera are anicteric. Nose - moist nasal mucosa without discharge. Mouth - moist buccal mucosa. Oropharynx is nonerythematous and there is no tonsillar exudate or edema noted. Neck: Supple; no JVD, nuchal rigidity, cervical lymphadenopathy. Heart: Regular rate and rhythm. There is a normal S1 and S2 with no murmurs, clicks, or gallops appreciated. Lungs: Clear to auscultation bilaterally with no wheezes, rales, or rhonchi. Abdomen: Soft, epigastric pain with palpation, nondistended, with good bowel sounds. There are no palpable pulsatile masses or hepatosplenomegaly. There is no guarding, rigidity, or rebound noted. Extremities: Significant lymphedema with healing wounds. Skin: warm and dry with good turgor and no rashes. Medical Decision & Procedures Laboratory Results 02/07/17 03:10 02/07/17 03:10 Test 02/07/17 03:10 Red Blood Count 4.94 M/uL (4.7-6.1) Mean Corpuscular Volume 82.8 fL (80-100) Mean Corpuscular Hemoglobin 27.3 pg (25-34) Mean Corpuscular Hemoglobin Concent 33.0 g/dl (32-36) RDW Standard Deviation 45.0 fL (36.4-46.3) RDW Coefficient of Variation 14.7 % (11.5-14.5) Mean Platelet Volume 10.3 fL (7.4-10.4) Anion Gap 11.0 mmol/L (3-11) Est Creatinine Clear Calc Drug Dose 43.2 ml/min Estimated GFR () 56.2 Estimated GFR (Non- 48.5 BUN/Creatinine Ratio 16.1 (10-20) Calcium Level 9.2 mg/dl (8.5-10.1) Magnesium Level 2.0 mg/dl (1.8-2.4) Total Bilirubin 1.5 mg/dl (0.2-1) Direct Bilirubin 0.6 mg/dl (0-0.2) Aspartate Amino Transf (AST/SGOT) 39 U/L (15-37) Alanine Aminotransferase (ALT/SGPT) 36 U/L (12-78) Alkaline Phosphatase 463 U/L (45-117) Total Protein 8.4 gm/dl (6.4-8.2) Albumin 3.6 gm/dl (3.4-5.0) Lipase 2629 U/L (73-393) Thyroid Stimulating Hormone (TSH) 3.270 uIu/ml (0.300-4.500) Laboratory results per my review. Medications Administered Medications (Trade) Dose Ordered Sig/Marilyn Route Start Time Stop Time Status Last Admin Dose Admin Ondansetron HCl 4 mg 4 mg NOW STAT IV 02/07/17 02:57 02/07/17 02:58 DC 02/07/17 03:13 4 MG Sodium Chloride 500 ml @ 999 mls/hr Q31M STAT IV 02/07/17 03:59 02/07/17 04:29 DC 02/07/17 03:59 999 MLS/HR Sodium Chloride (Nss 1000ml) 1,000 ml @ 200 mls/hr Q5H STAT IV 02/07/17 03:59 02/07/17 08:58 02/07/17 04:13 200 MLS/HR Procedure Medications Administered: Ondansetron HCl Sodium Chloride ED Course 0252: Past medical records reviewed. The patient was evaluated in room A11. A complete history and physical exam was performed. An IV lock was initiated and labs were drawn as above. 0257: Ordered Zofran Inj 4 mg IV. 0359: Ordered Sodium Chloride 1,000 ml @ 200 mls/hr IV, Sodium Chloride 500 ml @ 999 mls/hr IV. 0400: I reevaluated the patient and he states he is feeling a little better and is now less nauseous. 0405: I discussed the case with Dr. Tiana Menezes Hospitalist. He agreed to evaluate the patient for further management and care. Medical Decision The patient is a 66 year old male who presents to the ED with vomiting. Differential diagnosis includes dehydration, recurrent pancreatitis, and gastritis. Labs: Normal white blood cell count Stable H&H BUN 24 Creatintine 1.5 up from 1.1 two days ago Glucose 101 Total bilirubin 1.5 Direct Bilirubin 0.6 AST 39 ALT 36 Alkaline Phosphatase 463 Lipase 2629 The patient has a history of pancreatitis which she was admitted to the hospital. His lipase was around 400 prior to discharge. He presents to the ER tonight with epigastric abdominal pain and vomiting. Lipase is now back up to 2629. Patient also has a creatinine up to 1.5 from 1.1. I had a conversation with the patient about his lengthy admission in the hospital. He states that he would not consent to having an MRCP performed because of the magnet involved and the dangers associated with that. The patient seems somewhat paranoid. When I asked him about the paranoia, he stated that he only wanted to do what was right for himself. I discussed the case with the [facility] Hospitalist and they will evaluate for further management. Consults Time Called: 0400 Consulting Physician: Dr. Tiana Shaffer Returned Call: [phone] I discussed the case with Dr. Tiana Shaffer. He agreed to evaluate the patient for further management and care. Impression Primary Impression: Pancreatitis Additional Impression: Acute kidney injury Scribe Attestation The scribe's documentation has been prepared under my direction and personally reviewed by me in its entirety. I confirm that the note above accurately reflects all work, treatment, procedures, and medical decision making performed by me. Departure Information Dispostion Being Evaluated By Hospitalist Referrals No Doctor, Assigned (PCP) Patient Instructions My [facility] Problem Qualifiers
[2017-02-07 03:30] LABS: HEMATOCRIT 40.9 % (42-52); MEAN CELL VOLUME 82.8 fL (80-100); MEAN CORPUSCULAR HEMOGLOBIN 27.3 pg (25-34); MEAN PLATELET VOLUME 10.3 fL (7.4-10.4); PLATELET COUNT 259 K/uL (130-400); RED BLOOD COUNT 4.94 M/uL (4.7-6.1); WHITE BLOOD COUNT 6.51 K/uL (4.8-10.8)
[2017-02-07 03:48] LABS: BUN/CREATININE RATIO 16.1 (10-20); CALCIUM 9.2 mg/dl (8.5-10.1); CREATININE 1.5 mg/dl (0.60-1.40); POTASSIUM 3.6 mmol/L (3.5-5.1)
[2017-02-07] MEDS ORDERED: SODIUM CHLORIDE 0.9% 1000ML 1,000 ML IV STA (03:59)
[2017-02-07] MEDS ORDERED: SODIUM CHLORIDE 0.9% 500ML 500 ML IV STA (03:59)
[2017-02-07 04:40] LABS: THYROID STIMULATING HORMONE 3.27 uIu/ml (0.300-4.500)
[2017-02-07] MEDS ORDERED: LORAZEPAM 2 MG/ML 1 ML VIAL IV PRN (05:00)
[2017-02-07] MEDS ORDERED: TRAMADOL HCL 50 MG TAB PO PRN (05:00)
[2017-02-07] MEDS ORDERED: ACETAMINOPHEN 325 MG TAB PO PRN (05:00)
[2017-02-07] MEDS ORDERED: HYDROmorphone INJ 0.5 MG/0.5 ML SYR IV PRN (05:00)
[2017-02-07] MEDS ORDERED: PROMETHAZINE HCL INJ 12.5 MG in SODIUM CHLORIDE 0.9% 50ML 50 ML IV PRN (05:00)
[2017-02-07 05:10] VITALS: BP 177/109; PULSE 58; TEMP 36.2; O2SAT 97; BMI 20.6
[2017-02-07] MEDS: LACTATED RINGER'S 1000ML 1,000 ML IV SCH ×4 (05:18→21:00)
[2017-02-07] MEDS: HYDROmorphone INJ 0.5 MG/0.5 ML SYR IV PRN ×2 (05:25→14:03)
[2017-02-07] MEDS: ONDANSETRON INJ 2 MG/ML 2 ML VIAL IV PRN ×2 (05:30→17:16)
[2017-02-07 05:58] VITALS: BP 142/85; PULSE 53
[2017-02-07] MEDS: HEPARIN SOD 5000 UNIT/0.5 ML CARP SQ SCH ×3 (06:00→21:26)
--- NOTE | 2017-02-07 06:26 | HISTORY & PHYSICAL EXAMINATION ---
DATE OF ADMISSION: 02/07/2017 PRIMARY CARE DOCTOR: Hola Hx obtained form px and records. CHIEF COMPLAINT: Abdominal pain. HISTORY OF PRESENT ILLNESS: Medical history is significant for schizophrenia, hypertension, history of DVT, history of testicular CA sp surgery and chemotherapy, past tobacco abuse, chronic anemia (baseline hemoglobin of 11), chronic lymphedema. Recent month long confinement last month for recurrent pancreatitis. Patient's CAT scan of the abdomen showed CBD hepatic duct dilatation, cannot rule out mass, stricture. Patient declined MRCP, further evaluation and management. Subsequently was discharged yesterday. Last night, the patient felt sick after consuming two hot dogs. Had achy epigastric pain, nausea and vomiting. No fever, no chills or hematemesis. No chest pain, no shortness of breath. Patient was brought to the Emergency Room. MEDICAL HISTORY: As above. SURGERIES: Urologic procedures . HOME MEDICATIONS: Clonidine, lisinopril and Zofran. ALLERGIES: TO HORSE DANDER AND TETANUS TOXOID. FAMILY HISTORY: High blood pressure and heart disease. PERSONAL AND SOCIAL HISTORY: Past tobacco abuse. No ETOH use, Homeless. REVIEW OF SYSTEMS: As per HPI, all other ROS negative. PHYSICAL EXAMINATION: VITAL SIGNS: Blood pressure was noted to be 161/100, pulse rate 67, RR 20 T37 sats 98 on room air. GENERAL: Uncomfortable, hyposthenic, in no respiratory distress, unkempt SKIN: Pallor. HEENT: Pale palpebral conjunctivae. Dry mucosa. NECK: No JVD. Supple. CHEST: Decreased effort. HEART: Regular rate and rhythm. ABDOMEN: Epigastric tenderness. EXTREMITIES: Lymphedema, right. NEUROLOGIC: No gross focality. LABORATORIES: Hemoglobin 13, hematocrit 40.6, platelet 270. Sodium noted to be 145%, potassium 3.6 chloride 108, CO2 26, BUN 20 creatinine 1.5 glucose of 101. AST 39, ALT 36, alkaline phosphatase 463 and lipase was 2628 ASSESSMENT: 1. Recurrent pancreatitis precipitated by hot dog intake. rule out cholecystitis possible biliary/pancreatic tumor patient refused workup during recent confinement 2. Hypertension, slightly elevated. hx non-compliance 3. Past tobacco abuse 4. paranoid schizophrenia as per records extreme paranoia prohibiting patient from following medical recommendations (px paranoid about "magnets" for recommended MRCP procedure) 5. Acute renal failure 2 to medications and clinical dehydration. 6. hx testicular tumor sp surgery 7. hx DVT not on anticoag 2 to homelessness PLAN: GMF analgesia, antiemetics, bowel rest, IV fluids. RUQ US ro cholecystitis Px will think about recommended MRCP procedure. GI consult once MRCP results in if patient is amenable. Baseline urinalysis. Monitor creatinine response to IV fluids. hold home ACEI Social service discharge planning. DVT prophylaxis, Heparin subQ. Full code. MTDD
[2017-02-07 07:14] VITALS: BP 148/80; PULSE 48; TEMP 36.7; O2SAT 94
[2017-02-07] MEDS: CHECK CLONIDINE PATCH PLACEMENT SCH ×2 (08:00→16:00)
--- NOTE | 2017-02-07 09:39 | DIAGNOSTIC IMAGING REPORT ---
ULTRASOUND RIGHT UPPER QUADRANT ABDOMEN CLINICAL HISTORY: Right upper quadrant abdominal pain. COMPARISON STUDY: Abdominal CT dated 01/21/2017. TECHNIQUE: Real-time, grayscale, and color flow sonography of the right upper quadrant of the abdomen was performed. Images are reviewed in the transverse and longitudinal planes. FINDINGS: Liver: The liver is normal in size and echotexture. There is intrahepatic biliary ductal dilatation. The main portal vein is patent. Gallbladder: The gallbladder is distended. There are layering calcified gallstones as well as biliary sludge. The gallbladder wall is mildly thickened measuring up to 4 mm. No pericholecystic fluid is seen. A sonographic Gotti's sign is reportedly present. The common bile duct measures up to 1.4 cm in diameter. Pancreas: Visualized parenchyma of the pancreatic head and body is normal in appearance. The pancreatic duct is dilated measuring up to 4 mm. The splenic vein is patent. Right kidney: Survey images of the right kidney demonstrate marked cortical atrophy and increased echotexture. There is no hydronephrosis. Ascites: None. IMPRESSION: 1. Cholelithiasis and biliary sludge. Sonographic findings are consistent with acute cholecystitis. 2. There is intra and extrahepatic biliary ductal dilatation as well as mild dilatation of the pancreatic duct. The dilatation of the pancreatic duct is atypical, and although this is likely related to cholecystitis an obstructing lesion at the level of the pancreatic head is not excluded. Follow-up imaging posttreatment is recommended for reassessment. 3. The right kidney is markedly atrophic and echogenic consistent with medical renal disease. Electronically signed by: Mulugeta Mccabe M.D. 02/07/2017 9:37 AM Dictated Date/Time: 02/07/2017 9:33 AM
[2017-02-07] MEDS: ACETAMINOPHEN IV 650 MG in EMPTY BAG 0 ML IV PRN (10:04)
[2017-02-07] MEDS ORDERED: PIPERACILL/TAZOBAC IV 4.5 GM in DEXTROSE 5% 100ML 100 ML IV ONE (12:45)
[2017-02-07] MEDS ORDERED: PIPERACILL/TAZOBAC CONSULT ACTIVE PRN (12:45)
--- NOTE | 2017-02-07 13:00 | Medical Consult ---
Consultation Date of Consultation: Feb 07, 2017. Attending Physician: Meredith Gonzalez M.D. History of Present Illness 66 y/o male admitted for severe epigastric pain and nausea after eating a hot dog. He was discharged yesterday after month long admission for pancreatitis, lymphedema and LE cellulitis. Apparently he refused to have MRCP believing that CT should have been sufficient. He has been having intermittent pain for several months, but now more severe. Past Medical/Surgical History Medical Problems: (1) Acute generalized abdominal pain Status: Acute (2) Acute kidney injury Status: Acute (3) Anemia Status: Acute (4) Anemia Status: Acute (5) Cellulitis of right lower extremity Status: Acute (6) Dizziness Status: Acute (7) Facial contusion Status: Acute (8) Fall Status: Acute (9) Head injury Status: Acute (10) Hypertension Nos Permanent Comment: declines to take medications Status: Chronic (11) Pancreatitis Status: Acute (12) Rectal bleeding Status: Acute (13) Renal failure Status: Acute (14) Sepsis Status: Acute (15) Small bowel obstruction Status: Acute (16) TSH elevation Status: Acute (17) Vomiting Status: Acute (18) Weakness Status: Acute (19) Wound of right lower extremity Status: Acute Social History Problems: (1) Ambulatory dysfunction Status: Acute (2) Cellulitis Status: Acute (3) Cellulitis and abscess of leg Status: Acute (4) Cellulitis of right leg Status: Acute (5) Cellulitis of right leg Status: Acute (6) Cellulitis of right lower extremity Status: Acute (7) Cellulitis of right lower extremity Status: Acute (8) Cellulitis of right lower extremity Status: Acute (9) Cellulitis of right lower extremity Status: Acute (10) Chronic acquired lymphedema Status: Acute (11) Diarrhea Status: Acute (12) Facial contusion Status: Acute (13) Fever Status: Acute (14) Nausea Status: Acute (15) Partial small bowel obstruction Status: Acute (16) Sepsis Status: Acute (17) Shortness of breath Status: Acute (18) 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 (19) Weakness Status: Acute Family History No pertinent family history Social History Smoking Status: Former Smoker Drug Use: none Housing Status: other Allergies Coded Allergies: Horse Dander (Verified Allergy, Unknown, HORSE HAIR, 02/07/17) Tetanus Toxoid (Verified Allergy, Unknown, 02/07/17) Current Inpatient Medications Current Inpatient Medications Medications (Trade) Dose Ordered Sig/Marilyn Route Start Time Stop Time Status Last Admin Dose Admin Lactated Ringer's (Lr 1000ml) 1,000 ml @ 150 mls/hr Q6H40M IV 02/07/17 05:00 03/09/17 04:59 02/07/17 12:08 150 MLS/HR Heparin Sodium (Porcine) (Heparin Sq 5000 Unit/0.5ml) 5,000 unit Q8H SQ 02/07/17 06:00 03/09/17 05:59 Acetaminophen (Tylenol Tab) 650 mg Q4H PRN PO 02/07/17 05:00 03/09/17 04:59 Ondansetron HCl 4 mg 4 mg Q6H PRN IV 02/07/17 05:00 03/09/17 04:59 02/07/17 05:30 4 MG Promethazine HCl/ Sodium Chloride (Phenergan Inj/ Nss 50ml) 50.5 ml @ 204 mls/hr Q6H PRN IV 02/07/17 05:00 03/09/17 04:59 Clonidine HCl ([id number]-Zpo-8 0.1mg/24hr Patch) 1 patch Th@1800 TD 02/09/17 18:00 03/11/17 17:59 Hydromorphone HCl (Dilaudid Inj) 0.5 mg Q6H PRN IV 02/07/17 05:30 02/21/17 05:29 02/07/17 05:25 0.5 MG Tramadol HCl not relieved by tylenol @ Q6H PRN PO 02/07/17 05:30 03/09/17 05:29 Acetaminophen 650 mg/Empty Bag 65 ml @ 260 mls/hr Q6H PRN IV 02/07/17 05:30 03/09/17 05:29 02/07/17 10:04 260 MLS/HR Lorazepam/Syringe (Ativan Inj/ Syringe) 1 ml @ 1 mls/min Q4H PRN IV 02/07/17 05:30 03/09/17 05:29 Miscellaneous (Remove Clonidine Patch) 1 ea Th@1759 N/A 02/09/17 17:59 03/11/17 17:58 Miscellaneous Information 1 ea 1 ea QS N/A 02/07/17 08:00 03/09/17 07:59 02/07/17 08:00 1 EA Piperacillin Sod/ Tazobactam Sod 3.375 gm/Dextrose 115 ml @ 28.75 mls/ hr Q8H IV 02/07/17 18:00 02/17/17 17:59 Piperacillin Sod/ Tazobactam Sod/ Dextrose (Zosyn Iv/D5 100ml) 120 ml @ 200 mls/hr TODAY@1245 ONCE IV 02/07/17 12:45 02/07/17 13:20 Piperacillin Sod/ Tazobactam Sod (Consult) 1 ea UD PRN N/A 02/07/17 12:45 03/09/17 12:44 Review of Systems Constitutional: No chills, No fever Respiratory: No shortness of breath Cardiovascular: No chest pain Abdomen: + nausea, + pain, + vomiting Physical Exam Date Time Temp Pulse Resp B/P Pulse Ox O2 Delivery O2 Flow Rate FiO2 02/07/17 10:00 Room Air 02/07/17 07:14 36.7 48 16 148/80 94 Room Air 02/07/17 05:58 53 142/85 02/07/17 05:10 36.2 58 18 177/109 97 Room Air 02/07/17 05:03 72 18 164/97 96 02/07/17 03:59 60 18 144/81 96 Room Air 02/07/17 02:58 70 02/07/17 02:55 36.6 67 20 161/100 98 Room Air General Appearance: no apparent distress Respiratory/Chest: lungs clear Cardiovascular: regular rate, rhythm Abdomen/GI: soft, + tenderness (epigastric > RUQ) Extremities/Musculoskelatal: + pertinent finding (lymphedema RLE, did not remove dressing from stiles) Laboratory Results Last 24 Hours Test 02/07/17 03:10 White Blood Count 6.51 K/uL Red Blood Count 4.94 M/uL Hemoglobin 13.5 g/dL Hematocrit 40.9 % Mean Corpuscular Volume 82.8 fL Mean Corpuscular Hemoglobin 27.3 pg Mean Corpuscular Hemoglobin Concent 33.0 g/dl RDW Standard Deviation 45.0 fL RDW Coefficient of Variation 14.7 % Platelet Count 259 K/uL Mean Platelet Volume 10.3 fL Sodium Level 145 mmol/L Potassium Level 3.6 mmol/L Chloride Level 108 mmol/L Carbon Dioxide Level 26 mmol/L Anion Gap 11.0 mmol/L Blood Urea Nitrogen 24 mg/dl Creatinine 1.50 mg/dl Est Creatinine Clear Calc Drug Dose 43.2 ml/min Estimated GFR () 56.2 Estimated GFR (Non- 48.5 BUN/Creatinine Ratio 16.1 Random Glucose 101 mg/dl Calcium Level 9.2 mg/dl Magnesium Level 2.0 mg/dl Total Bilirubin 1.5 mg/dl Direct Bilirubin 0.6 mg/dl Aspartate Amino Transf (AST/SGOT) 39 U/L Alanine Aminotransferase (ALT/SGPT) 36 U/L Alkaline Phosphatase 463 U/L Total Protein 8.4 gm/dl Albumin 3.6 gm/dl Lipase 2629 U/L Thyroid Stimulating Hormone (TSH) 3.270 uIu/ml U/S IMPRESSION: 1. Cholelithiasis and biliary sludge. Sonographic findings are consistent with acute cholecystitis. 2. There is intra and extrahepatic biliary ductal dilatation as well as mild dilatation of the pancreatic duct. The dilatation of the pancreatic duct is atypical, and although this is likely related to cholecystitis an obstructing lesion at the level of the pancreatic head is not excluded. Follow-up imaging posttreatment is recommended for reassessment. 3. The right kidney is markedly atrophic and echogenic consistent with medical renal disease. Electronically signed by: Mulugeta Mccabe M.D. 02/07/2017 9:37 AM Assessment & Plan cholelithiasis, likely choledocholithiasis, chronic/acute cholecystitis, pancreatitis await GI evaluation, could consider concurrent ERCP/lap lucas continue IV abx
--- NOTE | 2017-02-07 13:04 | Surgery Progress Note ---
Surgery Progress Note Date of Service Feb 07, 2017. Subjective see José Manuel Quiñones's note pt is awake, alert adm with recurrent pancreatitis, dilated CBD, gb edema and gallstones all c/w gallstone pancreatitis recent adm for same- refused procedures Objective Vital Signs: Date Time Temp Pulse Resp B/P Pulse Ox O2 Delivery O2 Flow Rate FiO2 02/07/17 10:00 Room Air 02/07/17 07:14 36.7 48 16 148/80 94 Room Air 02/07/17 05:58 53 142/85 02/07/17 05:10 36.2 58 18 177/109 97 Room Air 02/07/17 05:03 72 18 164/97 96 02/07/17 03:59 60 18 144/81 96 Room Air 02/07/17 02:58 70 02/07/17 02:55 36.6 67 20 161/100 98 Room Air General Appearance: no apparent distress Respiratory/Chest: no respiratory distress Abdomen: non tender, soft Laboratory Results: Results Past 24 Hours Test 02/07/17 03:10 Range/Units White Blood Count 6.51 4.8-10.8 K/uL Red Blood Count 4.94 4.7-6.1 M/uL Hemoglobin 13.5 14.0-18.0 g/dL Hematocrit 40.9 42-52 % Mean Corpuscular Volume 82.8 80-100 fL Mean Corpuscular Hemoglobin 27.3 25-34 pg Mean Corpuscular Hemoglobin Concent 33.0 32-36 g/dl RDW Standard Deviation 45.0 36.4-46.3 fL RDW Coefficient of Variation 14.7 11.5-14.5 % Platelet Count 259 130-400 K/uL Mean Platelet Volume 10.3 7.4-10.4 fL Sodium Level 145 136-145 mmol/L Potassium Level 3.6 3.5-5.1 mmol/L Chloride Level 108 98-107 mmol/L Carbon Dioxide Level 26 21-32 mmol/L Anion Gap 11.0 3-11 mmol/L Blood Urea Nitrogen 24 7-18 mg/dl Creatinine 1.50 0.60-1.40 mg/dl Est Creatinine Clear Calc Drug Dose 43.2 ml/min Estimated GFR () 56.2 Estimated GFR (Non- 48.5 BUN/Creatinine Ratio 16.1 10-20 Random Glucose 101 70-99 mg/dl Calcium Level 9.2 8.5-10.1 mg/dl Magnesium Level 2.0 1.8-2.4 mg/dl Total Bilirubin 1.5 0.2-1 mg/dl Direct Bilirubin 0.6 0-0.2 mg/dl Aspartate Amino Transf (AST/SGOT) 39 15-37 U/L Alanine Aminotransferase (ALT/SGPT) 36 12-78 U/L Alkaline Phosphatase 463 45-117 U/L Total Protein 8.4 6.4-8.2 gm/dl Albumin 3.6 3.4-5.0 gm/dl Lipase 2629 73-393 U/L Thyroid Stimulating Hormone (TSH) 3.270 0.300-4.500 uIu/ml Assessment & Plan 02/07/17- adm with recurrent pancreatitis, dilated CBD, gallstones, mild gb edema- not significantly distended- doubt significant acute cholecystitis Discussed with pt- he would likely benefit from ERCP and lap lucas. He seems to be thinking about it.
--- NOTE | 2017-02-07 14:23 | Gastrointestinal Consultation ---
Gastrointestinal Consultation Date of Consultation: Feb 07, 2017 Attending Physician: Dr. Gonzalez Consulting Physician: Dr. Purcell Reason for Consultation: Recurrent gallstone pancreatitis History of Present Illness Patient is a 66 year old male with schizophrenia, hypertension, history of DVT, testicular cancer S/P orchiectomy who presented to the ED last evening for abdominal pain, nausea and vomiting. He tells me that, last night, while eating a second hotdog, he had sudden, severe abdominal pain, nausea and vomiting. He presented to the ED for these symptoms. US suggested wall thickening, stones and dilated CBD at 1.4 cm. Lipase was elevated at 2629. T bili elevated at 1.5 and direct bili 0.6, Alk Phos was elevated 463, AST and ALT were normal. He appears well but tells me that he continues with abdominal pain. He is NPO, on IV fluids. No further vomiting since arrival. He is hemodynamically stable but Cr is elevated at 1.5. His baseline is 0.9. He is known to our group as he was admitted here in December for gallstone pancreatitis, that time with elevated lipase and CT evidence of acute pancreatitis. A review of notes shows that he was dx'ed with pancreatitis in 2006. The history that the patient provides is somewhat circuitous and at times conflicting. At one point he said that he had pancreatitis last month, that it occurred here in the hospital but he also told me that he has not had previous similar pain, that this started yesterday. He also tells me that each morning, he has some nausea and pain which feels better after eating. He denies increased alcohol intake. He has frequent antibiotics for a non healing leg wound during hospitalizations but he is not on any regular medications at home. Past Medical/Surgical History Medical Problems: (1) Acute generalized abdominal pain Status: Acute (2) Acute kidney injury Status: Acute (3) Anemia Status: Acute (4) Anemia Status: Acute (5) Cellulitis of right lower extremity Status: Acute (6) Dizziness Status: Acute (7) Facial contusion Status: Acute (8) Fall Status: Acute (9) Head injury Status: Acute (10) Hypertension Nos Permanent Comment: declines to take medications Status: Chronic (11) Pancreatitis Status: Acute (12) Rectal bleeding Status: Acute (13) Renal failure Status: Acute (14) Sepsis Status: Acute (15) Small bowel obstruction Status: Acute (16) TSH elevation Status: Acute (17) Vomiting Status: Acute (18) Weakness Status: Acute (19) Wound of right lower extremity Status: Acute Social History Problems: (1) Ambulatory dysfunction Status: Acute (2) Cellulitis Status: Acute (3) Cellulitis and abscess of leg Status: Acute (4) Cellulitis of right leg Status: Acute (5) Cellulitis of right leg Status: Acute (6) Cellulitis of right lower extremity Status: Acute (7) Cellulitis of right lower extremity Status: Acute (8) Cellulitis of right lower extremity Status: Acute (9) Cellulitis of right lower extremity Status: Acute (10) Chronic acquired lymphedema Status: Acute (11) Diarrhea Status: Acute (12) Facial contusion Status: Acute (13) Fever Status: Acute (14) Nausea Status: Acute (15) Partial small bowel obstruction Status: Acute (16) Sepsis Status: Acute (17) Shortness of breath Status: Acute (18) 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 (19) Weakness Status: Acute Past Medical History: 1. HTN 2. DVT 3. Testicular Cancer S/P orchiectomy 4. Colon polyp 5. Paranoid Schizophrenia Past Surgical History: 1. Colonoscopy (unknown date) 2. Orchiectomy (unknown date) Family History No pertinent family history Social History Smoking Status: Former Smoker Alcohol Use: none Drug Use: none Housing Status: other Allergies Coded Allergies: Horse Dander (Verified Allergy, Unknown, HORSE HAIR, 02/07/17) Tetanus Toxoid (Verified Allergy, Unknown, 02/07/17) Current Medications Home Meds and Scripts Medications Dose Route/Sig Max Daily Dose Days Date Category Zofran Odt (Ondansetron HCl) 8 Mg Soltab 8 Mg SL Q6H PRN 10 02/06/17 Rx Zestril (Lisinopril) 10 Mg Tab 30 Mg PO QAM 30 02/06/17 Rx Clonidine HCl 1 Patch Tdsy 1 Patch TD TH@1800 30 02/06/17 Rx Review of Systems Constitutional: No chills, No fever, No sweats, No weakness, No weight loss Eyes: No eye pain, No redness ENT: No pain on swallowing, No sore throat, No trouble swallowing Respiratory: No cough, No dyspnea on exertion, No shortness of breath, No wheezing Cardiac: No chest pain, No edema, No palpitations Abdomen: + nausea, + pain, + see HPI, + vomiting, No GI bleeding, No constipation, No diarrhea Neuro: No balance problems, No memory loss, No numbness/tingling, No vertigo, No weakness Psych: No anxiety, No depression symptoms, No insomnia Heme: No abnormal bleeding/bruising, No night sweats Endo: No excessive thirst, No excessive urination, No fatigue Skin: No itch, No jaundice, No new/changing skin lesions, No rash Physical Exam Date Time Temp Pulse Resp B/P Pulse Ox O2 Delivery O2 Flow Rate FiO2 02/07/17 10:00 Room Air 02/07/17 07:14 36.7 48 16 148/80 94 Room Air 02/07/17 05:58 53 142/85 02/07/17 05:10 36.2 58 18 177/109 97 Room Air 02/07/17 05:03 72 18 164/97 96 02/07/17 03:59 60 18 144/81 96 Room Air 02/07/17 02:58 70 02/07/17 02:55 36.6 67 20 161/100 98 Room Air General Appearance: no apparent distress, + thin Eyes: normal inspection, EOMI ENT: + pertinent finding (poor dentition) Neck: supple, no adenopathy, thyroid normal Respiratory/Chest: chest non-tender, lungs clear, normal breath sounds, no accessory muscle use Cardiovascular: regular rate, rhythm, no JVD, no murmur Abdomen: normal bowel sounds, soft, no organomegaly, + tenderness (very tender over the entire upper abdomen; right side more than left.) Extremities: normal inspection, no pedal edema, normal capillary refill Neurologic/Psych: alert, normal mood/affect, oriented x 3 Skin: normal color, no jaundice, warm/dry, no rash Laboratory Results Last 24 Hours Test 02/07/17 03:10 White Blood Count 6.51 K/uL Red Blood Count 4.94 M/uL Hemoglobin 13.5 g/dL Hematocrit 40.9 % Mean Corpuscular Volume 82.8 fL Mean Corpuscular Hemoglobin 27.3 pg Mean Corpuscular Hemoglobin Concent 33.0 g/dl RDW Standard Deviation 45.0 fL RDW Coefficient of Variation 14.7 % Platelet Count 259 K/uL Mean Platelet Volume 10.3 fL Sodium Level 145 mmol/L Potassium Level 3.6 mmol/L Chloride Level 108 mmol/L Carbon Dioxide Level 26 mmol/L Anion Gap 11.0 mmol/L Blood Urea Nitrogen 24 mg/dl Creatinine 1.50 mg/dl Est Creatinine Clear Calc Drug Dose 43.2 ml/min Estimated GFR () 56.2 Estimated GFR (Non- 48.5 BUN/Creatinine Ratio 16.1 Random Glucose 101 mg/dl Calcium Level 9.2 mg/dl Magnesium Level 2.0 mg/dl Total Bilirubin 1.5 mg/dl Direct Bilirubin 0.6 mg/dl Aspartate Amino Transf (AST/SGOT) 39 U/L Alanine Aminotransferase (ALT/SGPT) 36 U/L Alkaline Phosphatase 463 U/L Total Protein 8.4 gm/dl Albumin 3.6 gm/dl Lipase 2629 U/L Thyroid Stimulating Hormone (TSH) 3.270 uIu/ml Impression Patient is a 66 year old male Mr. Donaldson is a 66 yr old male with symptoms, labs and imaging all diagnostic of acute, but recurrent gallstone pancreatitis. With this he has a worsening of his renal function. In the past, he has no provided consent for ERCP or surgery. Again today, he asks appropriate questions but after long discussions indicates that he does not wish to undergo procedures. Plan 1. Aggressive hydration with LR at 250cc/hr; will consider decreasing tomorrow. 2. Further imaging of the CBD and pancreas not necessary at this time as US shows stones and he has recently had a CT with IV contrast w/o any evidence of pancreas mass or other abnormalities that would predispose him to pancreatitis such as pancreatic divisum. 3. NPO except ice chips and water. ATTESTATION: I have performed a history and physical examination of this patient and reviewed the electronic record. Specifically, on physical examination there is midabdominal tenderness. I have discussed the case with IAIN Obrien. The above note reflects my findings, conclusions, and recommendations. Darian Purcell MD
--- NOTE | 2017-02-07 14:37 | Progress Note ---
Internal Med Progress Note Date of Service: Feb 07, 2017. Provider Documentation: SUBJECTIVE: The patient was seen and examined Admitted early this morning with another attack of Pancreatitis Continue to have upper abdominal pain with nausea No fevr,chills OBJECTIVE: Vital Signs-as noted below Exam: General-no distress at rest Eyes-normal ENT-normal Neck-supple Lungs-clear to ausucltate bilaterally Heart-Regular,no murmur Abdomen-benign,no masses,bowel sound present Extremities-Chronic edema bilaterally Right more than the left Chronic cellulitis right leg Neuro-AAOx3 Lab data as noted below. ASSESSMENT & PLAN: Acute Recurrent pancreatitis likely secondary to Gall stone disease precipitated by hot dog intake. 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 hx non-compliance Continue current medication Paranoid schizophrenia as per records extreme paranoia prohibiting patient from following medical recommendations (px paranoid about "magnets" for recommended MRCP procedure) Has had Psychiatric evaluation during recent admission Past tobacco abuse Acute renal failure 2 to medications and clinical dehydration. hx testicular tumor sp surgery No acute symptoms hx DVT not on anticoag 2 to homelessness On SQ Heparin Full code. DISPOSITION Social SVC consulted Vital Signs: Date Time Temp Pulse Resp B/P Pulse Ox O2 Delivery O2 Flow Rate FiO2 02/07/17 10:00 Room Air 02/07/17 07:14 36.7 48 16 148/80 94 Room Air 02/07/17 05:58 53 142/85 02/07/17 05:10 36.2 58 18 177/109 97 Room Air 02/07/17 05:03 72 18 164/97 96 02/07/17 03:59 60 18 144/81 96 Room Air 02/07/17 02:58 70 02/07/17 02:55 36.6 67 20 161/100 98 Room Air Lab Results: Results Past 24 Hours Test 02/07/17 03:10 Range/Units White Blood Count 6.51 4.8-10.8 K/uL Red Blood Count 4.94 4.7-6.1 M/uL Hemoglobin 13.5 14.0-18.0 g/dL Hematocrit 40.9 42-52 % Mean Corpuscular Volume 82.8 80-100 fL Mean Corpuscular Hemoglobin 27.3 25-34 pg Mean Corpuscular Hemoglobin Concent 33.0 32-36 g/dl RDW Standard Deviation 45.0 36.4-46.3 fL RDW Coefficient of Variation 14.7 11.5-14.5 % Platelet Count 259 130-400 K/uL Mean Platelet Volume 10.3 7.4-10.4 fL Sodium Level 145 136-145 mmol/L Potassium Level 3.6 3.5-5.1 mmol/L Chloride Level 108 98-107 mmol/L Carbon Dioxide Level 26 21-32 mmol/L Anion Gap 11.0 3-11 mmol/L Blood Urea Nitrogen 24 7-18 mg/dl Creatinine 1.50 0.60-1.40 mg/dl Est Creatinine Clear Calc Drug Dose 43.2 ml/min Estimated GFR () 56.2 Estimated GFR (Non- 48.5 BUN/Creatinine Ratio 16.1 10-20 Random Glucose 101 70-99 mg/dl Calcium Level 9.2 8.5-10.1 mg/dl Magnesium Level 2.0 1.8-2.4 mg/dl Total Bilirubin 1.5 0.2-1 mg/dl Direct Bilirubin 0.6 0-0.2 mg/dl Aspartate Amino Transf (AST/SGOT) 39 15-37 U/L Alanine Aminotransferase (ALT/SGPT) 36 12-78 U/L Alkaline Phosphatase 463 45-117 U/L Total Protein 8.4 6.4-8.2 gm/dl Albumin 3.6 3.4-5.0 gm/dl Lipase 2629 73-393 U/L Thyroid Stimulating Hormone (TSH) 3.270 0.300-4.500 uIu/ml
[2017-02-07 15:14] VITALS: BP 152/70; PULSE 46; TEMP 36.7; O2SAT 95
[2017-02-07 16:00] VITALS: O2SAT 95
[2017-02-07] MEDS: PIPERACILL/TAZOBAC IV 3.375 GM in DEXTROSE 5% 100ML 100 ML IV SCH (17:18)
[2017-02-07 17:47] LABS: URINE APPEARANCE CLOUDY (CLEAR); URINE BILIRUBIN NEG (NEG); URINE COLOR DK YELLOW; URINE EPITHELIAL CELL AUTO >30 /lpf (0-5); URINE NITRITE NEG (NEG); UROBILINOGEN NEG (NEG); ZZUR CULT IF INDIC CLEAN CATCH YES
[2017-02-07 18:04] LABS: MANUAL MICROSCOPIC REQUIRED? NO; REVIEW REQ? YES
[2017-02-07 18:22] LABS: URINE MUCUS PRESENT (NONE PRSENT); URINE PATH CASTS 1-5 GRANULAR CASTS /lpf (0)
[2017-02-07] MEDS: LORAZEPAM INJ 0.5 MG in SYRINGE 0.75 ML IV PRN (22:40)
[2017-02-07 22:55] VITALS: BP 174/83; PULSE 46; TEMP 36.9; O2SAT 98
[2017-02-08] VITALS (8 sets, daily range): BP systolic 111–204; BP diastolic 61–90; PULSE 38–69; TEMP 36.7–37; O2SAT 96–98; Ht 167.6 cm; Wt 52.2 kg
[2017-02-08] MEDS: LACTATED RINGER'S 1000ML 1,000 ML IV SCH ×5 (00:13→19:57)
[2017-02-08] MEDS: CHECK CLONIDINE PATCH PLACEMENT SCH ×4 (00:14→23:43)
[2017-02-08] MEDS: PIPERACILL/TAZOBAC IV 3.375 GM in DEXTROSE 5% 100ML 100 ML IV SCH ×3 (01:41→16:26)
[2017-02-08] MEDS: ACETAMINOPHEN IV 650 MG in EMPTY BAG 0 ML IV PRN ×2 (05:04→19:57)
[2017-02-08] MEDS: HEPARIN SOD 5000 UNIT/0.5 ML CARP SQ SCH ×3 (05:41→20:48)
[2017-02-08 06:56] LABS: BASO % 0.6 %; BASO ABS # 0.02 K/uL (0-0.2); COMPLETE YES; EOS % 1.4 %; HEMATOCRIT 34.4 % (42-52); IG% 0.3 %; LYMPH % 3.4 %; LYMPH ABS # 0.12 K/uL (1.2-3.4); MEAN CELL VOLUME 83.5 fL (80-100); MEAN CORPUSCULAR HEMOGLOBIN 26.9 pg (25-34); MEAN CORPUSCULAR HGB CONC 32.3 g/dl (32-36); MONO % 7.4 %; NEUT % 86.9 %; PLATELET COUNT 166 K/uL (130-400); RED BLOOD COUNT 4.12 M/uL (4.7-6.1); WHITE BLOOD COUNT 3.51 K/uL (4.8-10.8)
[2017-02-08 07:20] LABS: BUN/CREATININE RATIO 13.9 (10-20); CALCIUM 8.2 mg/dl (8.5-10.1); CREATININE 1.2 mg/dl (0.60-1.40); POTASSIUM 3.5 mmol/L (3.5-5.1)
[2017-02-08 07:28] LABS: ALB/GLOB RATIO 0.7 (0.9-2)
[2017-02-08] MEDS: HYDROmorphone INJ 0.5 MG/0.5 ML SYR IV PRN ×2 (09:35→20:45)
--- NOTE | 2017-02-08 11:51 | Gastroenterology Progress Note ---
Progress Note Date of Service: Feb 08, 2017 Subjective Pt evaluation today including: conversation w/ patient, physical exam, chart review, lab review, review of studies, review of inpatient medication list Pt was easily awakened from sleep for interview and exam this morning. He reports continued abdominal pain w/o improvement. Lipase today improved at 991 (down from >2K). Alk phos decreased from 463 to 372 , T bili increased from 1.5 to 1.9. Transaminases remain normal. Review of Systems Constitutional: No fever Respiratory: No cough Cardiac: No chest pain Abdomen: + pain, + problem reported (no nausea/vomiting since prior to admission), No GI bleeding Male : No dysuria Psych: + problem reported (Laying on his side in his bed, no eye contact. Asked me, "what do you want?") Skin: No jaundice Medications Current Inpatient Medications Medications (Trade) Dose Ordered Sig/Marilyn Route Start Time Stop Time Status Last Admin Dose Admin Heparin Sodium (Porcine) (Heparin Sq 5000 Unit/0.5ml) 5,000 unit Q8H SQ 02/07/17 06:00 03/09/17 05:59 Acetaminophen (Tylenol Tab) 650 mg Q4H PRN PO 02/07/17 05:00 03/09/17 04:59 Ondansetron HCl 4 mg 4 mg Q6H PRN IV 02/07/17 05:00 03/09/17 04:59 02/07/17 17:16 4 MG Promethazine HCl/ Sodium Chloride (Phenergan Inj/ Nss 50ml) 50.5 ml @ 204 mls/hr Q6H PRN IV 02/07/17 05:00 03/09/17 04:59 02/07/17 17:40 204 MLS/HR Clonidine HCl (Bkmudhck-Exm-1 0.1mg/24hr Patch) 1 patch Th@1800 TD 02/09/17 18:00 03/11/17 17:59 Hydromorphone HCl (Dilaudid Inj) 0.5 mg Q6H PRN IV 02/07/17 05:30 02/21/17 05:29 02/08/17 09:35 0.5 MG Tramadol HCl not relieved by tylenol @ Q6H PRN PO 02/07/17 05:30 03/09/17 05:29 Acetaminophen 650 mg/Empty Bag 65 ml @ 260 mls/hr Q6H PRN IV 02/07/17 05:30 03/09/17 05:29 02/08/17 05:04 260 MLS/HR Lorazepam/Syringe (Ativan Inj/ Syringe) 1 ml @ 1 mls/min Q4H PRN IV 02/07/17 05:30 03/09/17 05:29 02/07/17 22:40 1 MLS/MIN Miscellaneous (Remove Clonidine Patch) 1 ea Th@1759 N/A 02/09/17 17:59 03/11/17 17:58 Miscellaneous Information 1 ea 1 ea QS N/A 02/07/17 08:00 03/09/17 07:59 02/08/17 07:14 1 EA Piperacillin Sod/ Tazobactam Sod/ Dextrose (Zosyn Iv/D5 100ml) 115 ml @ 28.75 mls/ hr Q8H IV 02/07/17 18:00 02/17/17 17:59 02/08/17 09:34 28.75 MLS/HR Piperacillin Sod/ Tazobactam Sod 1 ea 1 ea UD PRN N/A 02/07/17 12:45 03/09/17 12:44 Lactated Ringer's (Lr 1000ml) 1,000 ml @ 150 mls/hr Q6H40M IV 02/08/17 07:00 03/10/17 06:59 02/08/17 07:11 150 MLS/HR Objective Vital Signs Date Time Temp Pulse Resp B/P Pulse Ox O2 Delivery O2 Flow Rate FiO2 02/08/17 09:50 40 02/08/17 08:27 Room Air 02/08/17 07:40 36.7 38 16 175/83 97 Room Air 02/08/17 00:15 Room Air 02/07/17 22:55 36.9 46 16 174/83 98 Room Air 02/07/17 16:00 95 Room Air 02/07/17 15:14 36.7 46 18 152/70 95 Room Air Physical Exam General Appearance: + mild distress (c/o pain when asked, but appears well) Neck: no JVD Respiratory/Chest: lungs clear Cardiovascular: regular rate, rhythm, no murmur Abdomen: normal bowel sounds, soft, + tenderness (moderate epigastric and RUQ tenderness) Extremities: no pedal edema Neurologic/Psych: oriented x 3 Skin: no jaundice Laboratory Results Last 24 Hours Test 02/07/17 17:15 02/08/17 06:49 Urine Color DK YELLOW Urine Appearance CLOUDY Urine pH 6.0 Urine Specific [place] 1.030 Urine Protein 1+ Urine Glucose (UA) NEG Urine Ketones TRACE Urine Occult Blood TRACE Urine Nitrite NEG Urine Bilirubin NEG Urine Urobilinogen NEG Urine Leukocyte Esterase MODERATE Urine WBC (Auto) 10-30 /hpf Urine RBC (Auto) 0-4 /hpf Urine Hyaline Casts (Auto) >30 /lpf Urine Epithelial Cells (Auto) >30 /lpf Urine Bacteria (Auto) NEG Urine Renal Epithelial Cells /lpf Urine Crystals CALCIUM OXALATE Urine Pathogenic Casts 1-5 GRANULAR CASTS /lpf Urine Mucus PRESENT Urine Yeast (Auto) BUD W/ HYPHAE White Blood Count 3.51 K/uL Red Blood Count 4.12 M/uL Hemoglobin 11.1 g/dL Hematocrit 34.4 % Mean Corpuscular Volume 83.5 fL Mean Corpuscular Hemoglobin 26.9 pg Mean Corpuscular Hemoglobin Concent 32.3 g/dl Platelet Count 166 K/uL Mean Platelet Volume 10.0 fL Neutrophils (%) (Auto) 86.9 % Lymphocytes (%) (Auto) 3.4 % Monocytes (%) (Auto) 7.4 % Eosinophils (%) (Auto) 1.4 % Basophils (%) (Auto) 0.6 % Neutrophils # (Auto) 3.05 K/uL Lymphocytes # (Auto) 0.12 K/uL Monocytes # (Auto) 0.26 K/uL Eosinophils # (Auto) 0.05 K/uL Basophils # (Auto) 0.02 K/uL RDW Standard Deviation 46.4 fL RDW Coefficient of Variation 15.1 % Immature Granulocyte % (Auto) 0.3 % Immature Granulocyte # (Auto) 0.01 K/uL Sodium Level 144 mmol/L Potassium Level 3.5 mmol/L Chloride Level 110 mmol/L Carbon Dioxide Level 25 mmol/L Anion Gap 9.0 mmol/L Blood Urea Nitrogen 17 mg/dl Creatinine 1.20 mg/dl Est Creatinine Clear Calc Drug Dose 54.0 ml/min Estimated GFR () 73.6 Estimated GFR (Non- 63.5 BUN/Creatinine Ratio 13.9 Random Glucose 78 mg/dl Calcium Level 8.2 mg/dl Total Bilirubin 1.9 mg/dl Aspartate Amino Transf (AST/SGOT) 29 U/L Alanine Aminotransferase (ALT/SGPT) 24 U/L Alkaline Phosphatase 372 U/L Total Protein 6.2 gm/dl Albumin 2.5 gm/dl Globulin 3.7 gm/dl Albumin/Globulin Ratio 0.7 Lipase 991 U/L Assessment and Plan Mr. Donaldson is a 66 yr old male with symptoms, imaging and labs that are consistent with gallstone pancreatitis, possible choledocholithiasis vs. dilated bile duct from other issue which is less likely. Clinically the pancreatitis is improving. Plan: 1. Encouraged pt to get MRCP then ERCP. Pt didn't respond to my statements. 2. Continue LR now at 150/hr. 3. Would add back clear liquids po. 4. Our hope is that the patient will undergo MRCP and if indicated, ERCP then eventual cholecystectomy. Indication for these procedures including showing anatomic landmarks, explaining risk of recurrent pain, infection, pancreatitis if doesn't go forward with the procedure was discussed in detail with the patient by myself yesterday by myself then by Dr. Purcell. Today, the pt is less receptive to discuss potential testing/procedures so I was only able to make brief statement suggesting that he have these tests. ATTESTATION: I have performed a history and physical examination of this patient and reviewed the electronic record. Specifically, on physical examination there is epigastric pain. The patient continues to refuse further workup or intervention. I have discussed the case with IAIN Obrien. The above note reflects my findings, conclusions, and recommendations. Darian Purcell MD
--- NOTE | 2017-02-08 12:47 | Surgery Progress Note ---
Surgery Progress Note Date of Service Feb 08, 2017. Subjective + diet (npo), No complaints Objective Vital Signs: Date Time Temp Pulse Resp B/P Pulse Ox O2 Delivery O2 Flow Rate FiO2 02/08/17 09:50 40 02/08/17 08:27 Room Air 02/08/17 07:40 36.7 38 16 175/83 97 Room Air 02/08/17 00:15 Room Air 02/07/17 22:55 36.9 46 16 174/83 98 Room Air 02/07/17 16:00 95 Room Air 02/07/17 15:14 36.7 46 18 152/70 95 Room Air Abdomen: soft, + tenderness (epigastric) Laboratory Results: Results Past 24 Hours Test 02/07/17 17:15 02/08/17 06:49 Range/Units Urine Color DK YELLOW Urine Appearance CLOUDY CLEAR Urine pH 6.0 4.5-7.5 Urine Specific [place] 1.030 1.000-1.030 Urine Protein 1+ NEG Urine Glucose (UA) NEG NEG Urine Ketones TRACE NEG Urine Occult Blood TRACE NEG Urine Nitrite NEG NEG Urine Bilirubin NEG NEG Urine Urobilinogen NEG NEG Urine Leukocyte Esterase MODERATE NEG Urine WBC (Auto) 10-30 0-5 /hpf Urine RBC (Auto) 0-4 0-4 /hpf Urine Hyaline Casts (Auto) >30 0-5 /lpf Urine Epithelial Cells (Auto) >30 0-5 /lpf Urine Bacteria (Auto) NEG NEG Urine Renal Epithelial Cells 0-5 /lpf Urine Crystals CALCIUM OXALATE NONE PRSENT Urine Pathogenic Casts 1-5 GRANULAR CASTS 0 /lpf Urine Mucus PRESENT NONE PRSENT Urine Yeast (Auto) BUD W/ HYPHAE NONE PRSENT White Blood Count 3.51 4.8-10.8 K/uL Red Blood Count 4.12 4.7-6.1 M/uL Hemoglobin 11.1 14.0-18.0 g/dL Hematocrit 34.4 42-52 % Mean Corpuscular Volume 83.5 80-100 fL Mean Corpuscular Hemoglobin 26.9 25-34 pg Mean Corpuscular Hemoglobin Concent 32.3 32-36 g/dl Platelet Count 166 130-400 K/uL Mean Platelet Volume 10.0 7.4-10.4 fL Neutrophils (%) (Auto) 86.9 % Lymphocytes (%) (Auto) 3.4 % Monocytes (%) (Auto) 7.4 % Eosinophils (%) (Auto) 1.4 % Basophils (%) (Auto) 0.6 % Neutrophils # (Auto) 3.05 1.4-6.5 K/uL Lymphocytes # (Auto) 0.12 1.2-3.4 K/uL Monocytes # (Auto) 0.26 0.11-0.59 K/uL Eosinophils # (Auto) 0.05 0-0.5 K/uL Basophils # (Auto) 0.02 0-0.2 K/uL RDW Standard Deviation 46.4 36.4-46.3 fL RDW Coefficient of Variation 15.1 11.5-14.5 % Immature Granulocyte % (Auto) 0.3 % Immature Granulocyte # (Auto) 0.01 0.00-0.02 K/uL Sodium Level 144 136-145 mmol/L Potassium Level 3.5 3.5-5.1 mmol/L Chloride Level 110 98-107 mmol/L Carbon Dioxide Level 25 21-32 mmol/L Anion Gap 9.0 3-11 mmol/L Blood Urea Nitrogen 17 7-18 mg/dl Creatinine 1.20 0.60-1.40 mg/dl Est Creatinine Clear Calc Drug Dose 54.0 ml/min Estimated GFR () 73.6 Estimated GFR (Non- 63.5 BUN/Creatinine Ratio 13.9 10-20 Random Glucose 78 70-99 mg/dl Calcium Level 8.2 8.5-10.1 mg/dl Total Bilirubin 1.9 0.2-1 mg/dl Aspartate Amino Transf (AST/SGOT) 29 15-37 U/L Alanine Aminotransferase (ALT/SGPT) 24 12-78 U/L Alkaline Phosphatase 372 45-117 U/L Total Protein 6.2 6.4-8.2 gm/dl Albumin 2.5 3.4-5.0 gm/dl Globulin 3.7 2.5-4.0 gm/dl Albumin/Globulin Ratio 0.7 0.9-2 Lipase 991 73-393 U/L Microbiology Results 02/07/17 Urine Culture, Received Pending Assessment & Plan cholelithiasis, biliary pancreatitis, likely choledocholithiasis, chronic/acute cholecystitis lipase improved, bili up slightly, afebrile, WBC diluted today he is convinced that his fall in December is causing his symptoms, or there are other "nasty things in the corner that are influencing my body" will stand by but seems unlikely he will agree to any procedures
[2017-02-08] MEDS ORDERED: HydrALAZINE HCL 20 MG/ML VIAL IV. PRN (16:15)
--- NOTE | 2017-02-08 16:52 | Progress Note ---
Internal Med Progress Note Date of Service: Feb 08, 2017. Provider Documentation: SUBJECTIVE: The patient was seen and examined Admitted early this morning with another attack of Pancreatitis Pain is less today Agreeable to undergo the procedure OBJECTIVE: Vital Signs-as noted below Exam: General-no distress at rest Eyes-normal ENT-normal Neck-supple Lungs-clear to ausucltate bilaterally Heart-Regular,no murmur Abdomen-benign,no masses,bowel sound present Mildly tender upper quadrants Extremities-Chronic edema bilaterally Right more than the left Chronic cellulitis right leg Neuro-AAOx3 Lab data as noted below. ASSESSMENT & PLAN: Acute Recurrent pancreatitis likely secondary to Gall stone disease precipitated by hot dog intake. 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-refused ERCP during recent admission agreeable to undergo procedure if needed GI and Surgery consulted -appreciate input Lipase is better Symptomatically better Acute Cholecystitis Asper US LFTs are slightly elevated No Fever/Chills NO increase in [facility] Surgery consulted-appreciate input Repeat LFTs are not elevated Hypertension, hx non-compliance Much elevated will try Hydralazine PRN Paranoid schizophrenia as per records extreme paranoia prohibiting patient from following medical recommendations (px paranoid about "magnets" for recommended MRCP procedure) Has had Psychiatric evaluation during recent admission Past tobacco abuse Acute renal failure 2 to medications and clinical dehydration Renal function is improving . hx testicular tumor sp surgery No acute symptoms hx DVT not on anticoag 2 to homelessness On SQ Heparin Full code. DISPOSITION Social SVC consulted Has been refusing recommended studies Will discharge home on improvement Understands the consequence of not following recommendation and that could result in and disability Vital Signs: Date Time Temp Pulse Resp B/P Pulse Ox O2 Delivery O2 Flow Rate FiO2 02/08/17 16:02 38 16 202/85 02/08/17 16:00 Room Air 02/08/17 15:36 37.0 43 18 204/90 96 Room Air 02/08/17 09:50 40 02/08/17 08:27 Room Air 02/08/17 07:40 36.7 38 16 175/83 97 Room Air 02/08/17 00:15 Room Air 02/07/17 22:55 36.9 46 16 174/83 98 Room Air Lab Results: Results Past 24 Hours Test 02/07/17 17:15 02/08/17 06:49 Range/Units Urine Color DK YELLOW Urine Appearance CLOUDY CLEAR Urine pH 6.0 4.5-7.5 Urine Specific [place] 1.030 1.000-1.030 Urine Protein 1+ NEG Urine Glucose (UA) NEG NEG Urine Ketones TRACE NEG Urine Occult Blood TRACE NEG Urine Nitrite NEG NEG Urine Bilirubin NEG NEG Urine Urobilinogen NEG NEG Urine Leukocyte Esterase MODERATE NEG Urine WBC (Auto) 10-30 0-5 /hpf Urine RBC (Auto) 0-4 0-4 /hpf Urine Hyaline Casts (Auto) >30 0-5 /lpf Urine Epithelial Cells (Auto) >30 0-5 /lpf Urine Bacteria (Auto) NEG NEG Urine Renal Epithelial Cells 0-5 /lpf Urine Crystals CALCIUM OXALATE NONE PRSENT Urine Pathogenic Casts 1-5 GRANULAR CASTS 0 /lpf Urine Mucus PRESENT NONE PRSENT Urine Yeast (Auto) BUD W/ HYPHAE NONE PRSENT White Blood Count 3.51 4.8-10.8 K/uL Red Blood Count 4.12 4.7-6.1 M/uL Hemoglobin 11.1 14.0-18.0 g/dL Hematocrit 34.4 42-52 % Mean Corpuscular Volume 83.5 80-100 fL Mean Corpuscular Hemoglobin 26.9 25-34 pg Mean Corpuscular Hemoglobin Concent 32.3 32-36 g/dl Platelet Count 166 130-400 K/uL Mean Platelet Volume 10.0 7.4-10.4 fL Neutrophils (%) (Auto) 86.9 % Lymphocytes (%) (Auto) 3.4 % Monocytes (%) (Auto) 7.4 % Eosinophils (%) (Auto) 1.4 % Basophils (%) (Auto) 0.6 % Neutrophils # (Auto) 3.05 1.4-6.5 K/uL Lymphocytes # (Auto) 0.12 1.2-3.4 K/uL Monocytes # (Auto) 0.26 0.11-0.59 K/uL Eosinophils # (Auto) 0.05 0-0.5 K/uL Basophils # (Auto) 0.02 0-0.2 K/uL RDW Standard Deviation 46.4 36.4-46.3 fL RDW Coefficient of Variation 15.1 11.5-14.5 % Immature Granulocyte % (Auto) 0.3 % Immature Granulocyte # (Auto) 0.01 0.00-0.02 K/uL Sodium Level 144 136-145 mmol/L Potassium Level 3.5 3.5-5.1 mmol/L Chloride Level 110 98-107 mmol/L Carbon Dioxide Level 25 21-32 mmol/L Anion Gap 9.0 3-11 mmol/L Blood Urea Nitrogen 17 7-18 mg/dl Creatinine 1.20 0.60-1.40 mg/dl Est Creatinine Clear Calc Drug Dose 54.0 ml/min Estimated GFR () 73.6 Estimated GFR (Non- 63.5 BUN/Creatinine Ratio 13.9 10-20 Random Glucose 78 70-99 mg/dl Calcium Level 8.2 8.5-10.1 mg/dl Total Bilirubin 1.9 0.2-1 mg/dl Aspartate Amino Transf (AST/SGOT) 29 15-37 U/L Alanine Aminotransferase (ALT/SGPT) 24 12-78 U/L Alkaline Phosphatase 372 45-117 U/L Total Protein 6.2 6.4-8.2 gm/dl Albumin 2.5 3.4-5.0 gm/dl Globulin 3.7 2.5-4.0 gm/dl Albumin/Globulin Ratio 0.7 0.9-2 Lipase 991 73-393 U/L Microbiology Results 02/07/17 Urine Culture - Preliminary, Resulted NO GROWTH - LESS THAN 1,000 COLONIES/...
[2017-02-08] MEDS: HydrALAZINE HCL 20 MG/ML VIAL IV. PRN (20:44)
[2017-02-09] VITALS (7 sets, daily range): BP systolic 155–209; BP diastolic 72–91; PULSE 42–60; TEMP 36.4–36.9; O2SAT 96–98
[2017-02-09] MEDS: LORAZEPAM INJ 0.5 MG in SYRINGE 0.75 ML IV PRN (00:06)
[2017-02-09] MEDS: PIPERACILL/TAZOBAC IV 3.375 GM in DEXTROSE 5% 100ML 100 ML IV SCH ×3 (01:38→17:49)
[2017-02-09] MEDS: HYDROmorphone INJ 0.5 MG/0.5 ML SYR IV PRN ×4 (02:48→23:51)
[2017-02-09] MEDS: LACTATED RINGER'S 1000ML 1,000 ML IV SCH ×2 (02:58→09:11)
[2017-02-09] MEDS: HEPARIN SOD 5000 UNIT/0.5 ML CARP SQ SCH ×3 (05:39→22:00)
[2017-02-09 08:03] LABS: BUN/CREATININE RATIO 14.7 (10-20); CALCIUM 8.2 mg/dl (8.5-10.1); CREATININE 1.1 mg/dl (0.60-1.40); POTASSIUM 3.3 mmol/L (3.5-5.1)
[2017-02-09] MEDS: CHECK CLONIDINE PATCH PLACEMENT SCH ×3 (08:05→23:57)
[2017-02-09 08:06] LABS: ALB/GLOB RATIO 0.6 (0.9-2)
[2017-02-09] MEDS: HydrALAZINE HCL 20 MG/ML VIAL IV. PRN ×3 (08:13→23:46)
--- NOTE | 2017-02-09 08:14 | Surgery Progress Note ---
Surgery Progress Note Date of Service Feb 09, 2017. Subjective discussions/ care noted Objective Vital Signs: Date Time Temp Pulse Resp B/P Pulse Ox O2 Delivery O2 Flow Rate FiO2 02/09/17 07:52 36.4 51 16 184/88 97 Room Air 02/09/17 00:15 36.9 51 18 155/74 96 Room Air 02/08/17 23:20 Room Air 02/08/17 21:25 69 18 111/61 96 Room Air 02/08/17 19:20 36.9 47 18 181/85 98 Room Air 02/08/17 17:11 67 18 150/70 96 Room Air 02/08/17 16:02 38 16 202/85 02/08/17 16:00 Room Air 02/08/17 15:36 37.0 43 18 204/90 96 Room Air 02/08/17 09:50 40 02/08/17 08:27 Room Air Laboratory Results: Results Past 24 Hours Test 02/09/17 06:55 Range/Units Sodium Level 141 136-145 mmol/L Potassium Level 3.3 3.5-5.1 mmol/L Chloride Level 106 98-107 mmol/L Carbon Dioxide Level 22 21-32 mmol/L Anion Gap 13.0 3-11 mmol/L Blood Urea Nitrogen 16 7-18 mg/dl Creatinine 1.10 0.60-1.40 mg/dl Est Creatinine Clear Calc Drug Dose 56.2 ml/min Estimated GFR () 81.8 Estimated GFR (Non- 70.6 BUN/Creatinine Ratio 14.7 10-20 Random Glucose 60 70-99 mg/dl Calcium Level 8.2 8.5-10.1 mg/dl Total Bilirubin 1.8 0.2-1 mg/dl Aspartate Amino Transf (AST/SGOT) 25 15-37 U/L Alanine Aminotransferase (ALT/SGPT) 24 12-78 U/L Alkaline Phosphatase 419 45-117 U/L Total Protein 6.5 6.4-8.2 gm/dl Albumin 2.5 3.4-5.0 gm/dl Globulin 4.0 2.5-4.0 gm/dl Albumin/Globulin Ratio 0.6 0.9-2 Lipase 510 73-393 U/L Assessment & Plan 02/09/17- pt cont to refuse treatment plans which would entail any type of procedure- will follow in hospital care . 02/07/17- adm with recurrent pancreatitis, dilated CBD, gallstones, mild gb edema- not significantly distended- doubt significant acute cholecystitis Discussed with pt- he would likely benefit from ERCP and lap lucas. He seems to be thinking about it. 02/07/17- adm with recurrent pancreatitis, dilated CBD, gallstones, mild gb edema- not significantly distended- doubt significant acute cholecystitis Discussed with pt- he would likely benefit from ERCP and lap lucas. He seems to be thinking about it.
[2017-02-09] MEDS: ACETAMINOPHEN IV 650 MG in EMPTY BAG 0 ML IV PRN ×2 (09:06→15:41)
[2017-02-09] MEDS: D5NSS + 20MEQ KCL 1,000 ML IV SCH ×2 (11:19→20:08)
[2017-02-09] MEDS: ONDANSETRON INJ 2 MG/ML 2 ML VIAL IV PRN (11:30)
--- NOTE | 2017-02-09 15:54 | Progress Note ---
Internal Med Progress Note Date of Service: Feb 09, 2017. Provider Documentation: SUBJECTIVE: The patient was seen and examined Admitted early this morning with another attack of Pancreatitis Pain is less today Agreeable to undergo the procedure again today but refused yesterday OBJECTIVE: Vital Signs-as noted below Exam: General-no distress at rest Eyes-normal ENT-normal Neck-supple Lungs-clear to ausucltate bilaterally Heart-Regular,no murmur Abdomen-benign,no masses,bowel sound present Mildly tender upper quadrants Extremities-Chronic edema bilaterally Right more than the left Chronic cellulitis right leg Neuro-AAOx3 Lab data as noted below. ASSESSMENT & PLAN: Low Blood Sugar Around 60s Will change IVF to D5NS with Potassium Acute Recurrent pancreatitis likely secondary to Gall stone disease precipitated by hot dog intake. 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-refused ERCP during recent admission agreeable to undergo procedure if needed GI and Surgery consulted -appreciate input Lipase is better Symptomatically better today Agrees to go for the procedure Acute Cholecystitis Asper US LFTs are slightly elevated No Fever/Chills NO increase in [facility] Surgery consulted-appreciate input Repeat LFTs are not elevated Hypertension, hx non-compliance Much elevated will try Hydralazine PRN with increase frequency Paranoid schizophrenia as per records extreme paranoia prohibiting patient from following medical recommendations (px paranoid about "magnets" for recommended MRCP procedure) Has had Psychiatric evaluation during recent admission Still having paranoia Past tobacco abuse Acute renal failure 2 to medications and clinical dehydration Renal function is improving . hx testicular tumor sp surgery No acute symptoms hx DVT not on anticoag 2 to homelessness On SQ Heparin Full code. DISPOSITION Social SVC consulted Has been refusing recommended studies again and again Will discharge home on improvement Understands the consequence of not following recommendation and that could result in and disability Vital Signs: Date Time Temp Pulse Resp B/P Pulse Ox O2 Delivery O2 Flow Rate FiO2 02/09/17 09:16 157/75 02/09/17 07:52 36.4 51 16 184/88 97 Room Air 02/09/17 07:15 Room Air 02/09/17 00:15 36.9 51 18 155/74 96 Room Air 02/08/17 23:20 Room Air 02/08/17 21:25 69 18 111/61 96 Room Air 02/08/17 19:20 36.9 47 18 181/85 98 Room Air 02/08/17 17:11 67 18 150/70 96 Room Air 02/08/17 16:02 38 16 202/85 02/08/17 16:00 Room Air Lab Results: Results Past 24 Hours Test 02/09/17 06:55 Range/Units Sodium Level 141 136-145 mmol/L Potassium Level 3.3 3.5-5.1 mmol/L Chloride Level 106 98-107 mmol/L Carbon Dioxide Level 22 21-32 mmol/L Anion Gap 13.0 3-11 mmol/L Blood Urea Nitrogen 16 7-18 mg/dl Creatinine 1.10 0.60-1.40 mg/dl Est Creatinine Clear Calc Drug Dose 56.2 ml/min Estimated GFR () 81.8 Estimated GFR (Non- 70.6 BUN/Creatinine Ratio 14.7 10-20 Random Glucose 60 70-99 mg/dl Calcium Level 8.2 8.5-10.1 mg/dl Total Bilirubin 1.8 0.2-1 mg/dl Aspartate Amino Transf (AST/SGOT) 25 15-37 U/L Alanine Aminotransferase (ALT/SGPT) 24 12-78 U/L Alkaline Phosphatase 419 45-117 U/L Total Protein 6.5 6.4-8.2 gm/dl Albumin 2.5 3.4-5.0 gm/dl Globulin 4.0 2.5-4.0 gm/dl Albumin/Globulin Ratio 0.6 0.9-2 Lipase 510 73-393 U/L
[2017-02-09] MEDS: CLONIDINE HCL 0.1 MG/24 HR TRANSDERM SYS TD SCH (18:00)
[2017-02-09] MEDS: TRAMADOL HCL 50 MG TAB PO PRN (22:12)
[2017-02-10] VITALS (8 sets, daily range): BP systolic 143–202; BP diastolic 73–95; PULSE 44–60; TEMP 36.8–37.2; O2SAT 95–98
[2017-02-10] MEDS: PIPERACILL/TAZOBAC IV 3.375 GM in DEXTROSE 5% 100ML 100 ML IV SCH ×3 (01:57→17:26)
[2017-02-10] MEDS: HEPARIN SOD 5000 UNIT/0.5 ML CARP SQ SCH ×3 (06:00→20:55)
[2017-02-10] MEDS: D5NSS + 20MEQ KCL 1,000 ML IV SCH ×4 (06:17→22:52)
--- NOTE | 2017-02-10 07:03 | Surgery Progress Note ---
Surgery Progress Note Date of Service Feb 10, 2017. Subjective notes/ care reviewed Refused MRCP Objective Vital Signs: Date Time Temp Pulse Resp B/P Pulse Ox O2 Delivery O2 Flow Rate FiO2 02/10/17 00:29 49 143/73 02/09/17 23:40 Room Air 02/09/17 23:27 36.5 49 18 209/91 96 Room Air 02/09/17 17:11 60 164/72 97 Room Air 02/09/17 16:02 42 189/84 02/09/17 15:53 36.6 45 18 183/89 98 Room Air 02/09/17 15:30 Room Air 02/09/17 09:16 157/75 02/09/17 07:52 36.4 51 16 184/88 97 Room Air 02/09/17 07:15 Room Air Laboratory Results: Results Past 24 Hours Test 02/10/17 04:44 Range/Units Assessment & Plan 02/10/17- Refusing studies/ procedures. Does not have life threatening cholecystitis. No plan for surgical intervention 02/09/17- pt cont to refuse treatment plans which would entail any type of procedure- will follow in hospital care . 02/07/17- adm with recurrent pancreatitis, dilated CBD, gallstones, mild gb edema- not significantly distended- doubt significant acute cholecystitis Discussed with pt- he would likely benefit from ERCP and lap lucas. He seems to be thinking about it. 02/09/17- pt cont to refuse treatment plans which would entail any type of procedure- will follow in hospital care . 02/07/17- adm with recurrent pancreatitis, dilated CBD, gallstones, mild gb edema- not significantly distended- doubt significant acute cholecystitis Discussed with pt- he would likely benefit from ERCP and lap lucas. He seems to be thinking about it.
[2017-02-10] MEDS: CHECK CLONIDINE PATCH PLACEMENT SCH ×3 (07:18→23:44)
[2017-02-10] MEDS: HYDROmorphone INJ 0.5 MG/0.5 ML SYR IV PRN ×4 (07:25→22:45)
[2017-02-10 08:20] LABS: HEMATOCRIT 36.8 % (42-52); MEAN CELL VOLUME 79.8 fL (80-100); MEAN CORPUSCULAR HEMOGLOBIN 26.9 pg (25-34); MEAN CORPUSCULAR HGB CONC 33.7 g/dl (32-36); MEAN PLATELET VOLUME 9.7 fL (7.4-10.4); PLATELET COUNT 194 K/uL (130-400); RED BLOOD COUNT 4.61 M/uL (4.7-6.1); WHITE BLOOD COUNT 3.57 K/uL (4.8-10.8)
[2017-02-10 08:49] LABS: BUN/CREATININE RATIO 9.2 (10-20); CALCIUM 8.3 mg/dl (8.5-10.1); CREATININE 0.95 mg/dl (0.60-1.40); POTASSIUM 3.4 mmol/L (3.5-5.1)
[2017-02-10 08:58] LABS: ALB/GLOB RATIO 0.7 (0.9-2)
[2017-02-10] MEDS: HydrALAZINE HCL 20 MG/ML VIAL IV. PRN ×3 (09:33→22:45)
--- NOTE | 2017-02-10 11:23 | Progress Note ---
Internal Med Progress Note Date of Service: Feb 10, 2017. Provider Documentation: SUBJECTIVE: The patient was seen and examined Admitted early this morning with another attack of Pancreatitis Did not tolerate MRCP Remains symptomatic Considering the procedure since not feeling any better OBJECTIVE: Vital Signs-as noted below Exam: General-no distress at rest Eyes-normal ENT-normal Neck-supple Lungs-clear to ausucltate bilaterally Heart-Regular,no murmur Abdomen-benign,no masses,bowel sound present Mildly tender upper quadrants Extremities-Chronic edema bilaterally Right more than the left Chronic cellulitis right leg Neuro-AAOx3 Lab data as noted below. ASSESSMENT & PLAN: Low Blood Sugar Around 60s Will change IVF to D5NS with Potassium Potassium remains low ,will supplement Acute Recurrent pancreatitis likely secondary to Gall stone disease precipitated by hot dog intake. 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-refused ERCP during recent admission agreeable to undergo procedure if needed GI and Surgery consulted -appreciate input Lipase is better Symptomatically better today Agrees to go for the procedure Acute Cholecystitis Asper US LFTs are slightly elevated No Fever/Chills NO increase in WCC Surgery consulted-appreciate input Repeat LFTs are not elevated Hypertension, hx non-compliance Much elevated will try Hydralazine PRN with increase frequency Remains at the upper side Paranoid schizophrenia as per records extreme paranoia prohibiting patient from following medical recommendations (px paranoid about "magnets" for recommended MRCP procedure) Has had Psychiatric evaluation during recent admission Still having paranoia Past tobacco abuse Acute renal failure 2 to medications and clinical dehydration Renal function is improving . hx testicular tumor sp surgery No acute symptoms hx DVT not on anticoag 2 to homelessness On SQ Heparin Full code. DISPOSITION Social SVC consulted Has been refusing recommended studies again and again Will discharge home on improvement Understands the consequence of not following recommendation and that could result in and disability Agreeable to the procedure as of Today Medically not yet better to be discharged Vital Signs: Date Time Temp Pulse Resp B/P Pulse Ox O2 Delivery O2 Flow Rate FiO2 02/10/17 09:31 95 Room Air 02/10/17 07:54 36.8 57 18 170/82 95 Room Air 02/10/17 07:51 Room Air 02/10/17 00:29 49 143/73 02/09/17 23:40 Room Air 02/09/17 23:27 36.5 49 18 209/91 96 Room Air 02/09/17 17:11 60 164/72 97 Room Air 02/09/17 16:02 42 189/84 02/09/17 15:53 36.6 45 18 183/89 98 Room Air 02/09/17 15:30 Room Air Lab Results: Results Past 24 Hours Test 02/10/17 07:41 Range/Units White Blood Count 3.57 4.8-10.8 K/uL Red Blood Count 4.61 4.7-6.1 M/uL Hemoglobin 12.4 14.0-18.0 g/dL Hematocrit 36.8 42-52 % Mean Corpuscular Volume 79.8 80-100 fL Mean Corpuscular Hemoglobin 26.9 25-34 pg Mean Corpuscular Hemoglobin Concent 33.7 32-36 g/dl RDW Standard Deviation 43.1 36.4-46.3 fL RDW Coefficient of Variation 14.8 11.5-14.5 % Platelet Count 194 130-400 K/uL Mean Platelet Volume 9.7 7.4-10.4 fL Sodium Level 141 136-145 mmol/L Potassium Level 3.4 3.5-5.1 mmol/L Chloride Level 107 98-107 mmol/L Carbon Dioxide Level 22 21-32 mmol/L Anion Gap 12.0 3-11 mmol/L Blood Urea Nitrogen 9 7-18 mg/dl Creatinine 0.95 0.60-1.40 mg/dl Est Creatinine Clear Calc Drug Dose 65.1 ml/min Estimated GFR () 97.7 Estimated GFR (Non- 84.3 BUN/Creatinine Ratio 9.2 10-20 Random Glucose 122 70-99 mg/dl Calcium Level 8.3 8.5-10.1 mg/dl Total Bilirubin 2.4 0.2-1 mg/dl Aspartate Amino Transf (AST/SGOT) 46 15-37 U/L Alanine Aminotransferase (ALT/SGPT) 28 12-78 U/L Alkaline Phosphatase 536 45-117 U/L Total Protein 6.7 6.4-8.2 gm/dl Albumin 2.7 3.4-5.0 gm/dl Globulin 4.0 2.5-4.0 gm/dl Albumin/Globulin Ratio 0.7 0.9-2 Lipase 974 73-393 U/L
[2017-02-10] MEDS: ONDANSETRON INJ 2 MG/ML 2 ML VIAL IV PRN (16:46)
[2017-02-11] VITALS (7 sets, daily range): BP systolic 160–190; BP diastolic 71–88; PULSE 49–56; TEMP 36.2–36.8; O2SAT 97–99
[2017-02-11] MEDS: PIPERACILL/TAZOBAC IV 3.375 GM in DEXTROSE 5% 100ML 100 ML IV SCH ×3 (01:51→19:04)
[2017-02-11] MEDS: D5NSS + 20MEQ KCL 1,000 ML IV SCH ×3 (01:53→22:45)
[2017-02-11] MEDS: HYDROmorphone INJ 0.5 MG/0.5 ML SYR IV PRN ×4 (03:36→15:46)
[2017-02-11] MEDS: ONDANSETRON INJ 2 MG/ML 2 ML VIAL IV PRN ×2 (03:36→11:50)
[2017-02-11] MEDS: HEPARIN SOD 5000 UNIT/0.5 ML CARP SQ SCH ×3 (05:30→22:00)
[2017-02-11 07:52] LABS: BASO % 0.3 %; BASO ABS # 0.01 K/uL (0-0.2); COMPLETE YES; EOS % 0.5 %; HEMATOCRIT 35.8 % (42-52); IG% 0.3 %; LYMPH % 13.5 %; LYMPH ABS # 0.52 K/uL (1.2-3.4); MEAN CELL VOLUME 79.4 fL (80-100); MEAN CORPUSCULAR HEMOGLOBIN 26.2 pg (25-34); MEAN PLATELET VOLUME 9.9 fL (7.4-10.4); MONO % 6.8 %; NEUT % 78.6 %; PLATELET COUNT 205 K/uL (130-400); RED BLOOD COUNT 4.51 M/uL (4.7-6.1); WHITE BLOOD COUNT 3.84 K/uL (4.8-10.8)
[2017-02-11] MEDS: CHECK CLONIDINE PATCH PLACEMENT SCH ×2 (08:00→15:38)
[2017-02-11] MEDS: HydrALAZINE HCL 20 MG/ML VIAL IV. PRN (08:16)
[2017-02-11 08:23] LABS: CREATININE 0.97 mg/dl (0.60-1.40)
--- NOTE | 2017-02-11 15:53 | Progress Note ---
Internal Med Progress Note Date of Service: Feb 11, 2017. 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 ASSESSMENT & PLAN: Low Blood Sugar Around 60s Will change IVF to D5NS with Potassium Potassium remains low ,will supplement Blood sugar remains stable Acute Recurrent pancreatitis likely secondary to Gall stone disease precipitated by hot dog intake. 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-refused ERCP during recent admission agreeable to undergo procedure if needed GI and Surgery consulted -appreciate input Lipase is better Symptomatically better today Agrees to go for the procedure and refuses when it is going to be done Ongoing refusal of any recommendation Medically unstable to be discharged Acute Cholecystitis Asper US LFTs are slightly elevated No Fever/Chills NO increase in WCC Surgery consulted-appreciate input Repeat LFTs are not elevated Hypertension, hx non-compliance Much elevated will try Hydralazine PRN with increase frequency Remains at the upper side Paranoid schizophrenia as per records extreme paranoia prohibiting patient from following medical recommendations (px paranoid about "magnets" for recommended MRCP procedure) Has had Psychiatric evaluation during recent admission Still having paranoia Past tobacco abuse Acute renal failure 2 to medications and clinical dehydration Renal function is improving . hx testicular tumor sp surgery No acute symptoms hx DVT not on anticoag 2 to homelessness On SQ Heparin Full code. DISPOSITION Social SVC consulted Has been refusing recommended studies again and again Will discharge home on improvement Understands the consequence of not following recommendation and that could result in and disability Agreeable to the procedure as of Today Medically not yet better to be discharged Vital Signs: Date Time Temp Pulse Resp B/P Pulse Ox O2 Delivery O2 Flow Rate FiO2 02/11/17 11:35 36.2 52 17 160/72 99 Room Air 02/11/17 09:42 99 Room Air 02/11/17 09:39 164/75 02/11/17 08:23 36.4 55 16 190/71 99 Room Air 02/11/17 07:30 Room Air 02/10/17 23:39 56 153/74 02/10/17 23:35 Room Air 02/10/17 22:30 37.2 60 20 194/95 98 Room Air 02/10/17 20:00 Room Air 02/10/17 17:06 Room Air 02/10/17 16:48 50 166/81 Lab Results: Results Past 24 Hours Test 02/11/17 07:35 Range/Units White Blood Count 3.84 4.8-10.8 K/uL Red Blood Count 4.51 4.7-6.1 M/uL Hemoglobin 11.8 14.0-18.0 g/dL Hematocrit 35.8 42-52 % Mean Corpuscular Volume 79.4 80-100 fL Mean Corpuscular Hemoglobin 26.2 25-34 pg Mean Corpuscular Hemoglobin Concent 33.0 32-36 g/dl Platelet Count 205 130-400 K/uL Mean Platelet Volume 9.9 7.4-10.4 fL Neutrophils (%) (Auto) 78.6 % Lymphocytes (%) (Auto) 13.5 % Monocytes (%) (Auto) 6.8 % Eosinophils (%) (Auto) 0.5 % Basophils (%) (Auto) 0.3 % Neutrophils # (Auto) 3.02 1.4-6.5 K/uL Lymphocytes # (Auto) 0.52 1.2-3.4 K/uL Monocytes # (Auto) 0.26 0.11-0.59 K/uL Eosinophils # (Auto) 0.02 0-0.5 K/uL Basophils # (Auto) 0.01 0-0.2 K/uL RDW Standard Deviation 44.2 36.4-46.3 fL RDW Coefficient of Variation 15.0 11.5-14.5 % Immature Granulocyte % (Auto) 0.3 % Immature Granulocyte # (Auto) 0.01 0.00-0.02 K/uL Creatinine 0.97 0.60-1.40 mg/dl Est Creatinine Clear Calc Drug Dose 63.8 ml/min Estimated GFR () 95.2 Estimated GFR (Non- 82.2
[2017-02-12] VITALS (7 sets, daily range): BP systolic 160–196; BP diastolic 82–91; PULSE 50–71; TEMP 36.7–37.2; O2SAT 97–98
[2017-02-12] MEDS: HydrALAZINE HCL 20 MG/ML VIAL IV. PRN ×2 (00:14→07:28)
[2017-02-12] MEDS: PIPERACILL/TAZOBAC IV 3.375 GM in DEXTROSE 5% 100ML 100 ML IV SCH ×3 (03:53→18:04)
[2017-02-12] MEDS: HEPARIN SOD 5000 UNIT/0.5 ML CARP SQ SCH ×3 (05:59→21:08)
[2017-02-12 06:28] LABS: BUN/CREATININE RATIO 10.7 (10-20); CALCIUM 8.6 mg/dl (8.5-10.1); CREATININE 0.94 mg/dl (0.60-1.40); POTASSIUM 3.4 mmol/L (3.5-5.1)
[2017-02-12 06:31] LABS: ALB/GLOB RATIO 0.7 (0.9-2)
[2017-02-12] MEDS: CHECK CLONIDINE PATCH PLACEMENT SCH ×3 (07:27→16:00)
[2017-02-12] MEDS: POTASSIUM CHLORIDE INJ 20 MEQ in D5W AND NSS 1,000 ML IV SCH ×2 (08:57→18:04)
--- NOTE | 2017-02-12 14:29 | Progress Note ---
Internal Med Progress Note Date of Service: Feb 12, 2017. 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 ASSESSMENT & PLAN: Acute Schizophrenia Paranoid schizophrenia as per records extreme paranoia prohibiting patient from following medical recommendations (px paranoid about "magnets" for recommended MRCP procedure) Still having paranoia and significant symptoms suggestive of Schizophrenia Edd consult Psychiatry Low Blood Sugar Around 60s Will change IVF to D5NS with Potassium Potassium remains low ,will supplement Blood sugar remains stable Acute Recurrent pancreatitis likely secondary to Gall stone disease precipitated by hot dog intake. 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-refused ERCP during recent admission agreeable to undergo procedure if needed GI and Surgery consulted -appreciate input Lipase is better but not yet normal Symptomatically better Agrees to go for the procedure and refuses when it is going to be done Ongoing refusal of any recommendation Medically unstable to be discharged Acute Cholecystitis Asper US LFTs are slightly elevated No Fever/Chills NO increase in WCC Surgery consulted-appreciate input Repeat LFTs are not elevated Hypertension, hx non-compliance Much elevated will try Hydralazine PRN with increase frequency Remains at the upper side Past tobacco abuse Acute renal failure 2 to medications and clinical dehydration Renal function is improving . hx testicular tumor sp surgery No acute symptoms hx DVT not on anticoag 2 to homelessness On SQ Heparin Full code. DISPOSITION Social SVC consulted Has been refusing recommended studies again and again Will discharge home on improvement Understands the consequence of not following recommendation and that could result in and disability Agreeable to the procedure as of Today Medically not yet better to be discharged Vital Signs: Date Time Temp Pulse Resp B/P Pulse Ox O2 Delivery O2 Flow Rate FiO2 02/12/17 10:36 164/83 02/12/17 09:25 71 183/86 02/12/17 07:15 Room Air 02/12/17 07:11 36.7 50 20 196/91 97 Room Air 02/12/17 01:56 160/82 02/12/17 00:15 Room Air 02/11/17 22:58 36.8 49 16 171/88 97 Room Air 02/11/17 16:00 99 Room Air 02/11/17 15:54 36.6 56 16 166/76 99 Room Air Lab Results: Results Past 24 Hours Test 02/12/17 05:36 Range/Units Sodium Level 142 136-145 mmol/L Potassium Level 3.4 3.5-5.1 mmol/L Chloride Level 110 98-107 mmol/L Carbon Dioxide Level 21 21-32 mmol/L Anion Gap 11.0 3-11 mmol/L Blood Urea Nitrogen 10 7-18 mg/dl Creatinine 0.94 0.60-1.40 mg/dl Est Creatinine Clear Calc Drug Dose 65.8 ml/min Estimated GFR () 98.9 Estimated GFR (Non- 85.3 BUN/Creatinine Ratio 10.7 10-20 Random Glucose 76 70-99 mg/dl Calcium Level 8.6 8.5-10.1 mg/dl Total Bilirubin 2.0 0.2-1 mg/dl Aspartate Amino Transf (AST/SGOT) 53 15-37 U/L Alanine Aminotransferase (ALT/SGPT) 45 12-78 U/L Alkaline Phosphatase 492 45-117 U/L Total Protein 6.9 6.4-8.2 gm/dl Albumin 2.9 3.4-5.0 gm/dl Globulin 4.0 2.5-4.0 gm/dl Albumin/Globulin Ratio 0.7 0.9-2 Lipase 589 73-393 U/L
[2017-02-12] MEDS: HYDROmorphone INJ 0.5 MG/0.5 ML SYR IV PRN (21:03)
[2017-02-12] MEDS: ONDANSETRON INJ 2 MG/ML 2 ML VIAL IV PRN (21:08)
[2017-02-13] MEDS: CHECK CLONIDINE PATCH PLACEMENT SCH ×3 (00:25→16:54)
[2017-02-13] MEDS: PIPERACILL/TAZOBAC IV 3.375 GM in DEXTROSE 5% 100ML 100 ML IV SCH ×2 (02:24→09:39)
[2017-02-13] MEDS: POTASSIUM CHLORIDE INJ 20 MEQ in D5W AND NSS 1,000 ML IV SCH ×2 (04:27→14:08)
[2017-02-13 05:38] LABS: HEMATOCRIT 36.7 % (42-52); MEAN CELL VOLUME 81.2 fL (80-100); MEAN CORPUSCULAR HEMOGLOBIN 26.8 pg (25-34); MEAN PLATELET VOLUME 9.5 fL (7.4-10.4); PLATELET COUNT 180 K/uL (130-400); RED BLOOD COUNT 4.52 M/uL (4.7-6.1)
[2017-02-13] MEDS: HEPARIN SOD 5000 UNIT/0.5 ML CARP SQ SCH ×3 (06:00→21:17)
--- NOTE | 2017-02-13 06:20 | Surgery Progress Note ---
Surgery Progress Note Date of Service Feb 13, 2017. Objective Vital Signs: Date Time Temp Pulse Resp B/P Pulse Ox O2 Delivery O2 Flow Rate FiO2 02/13/17 00:20 Room Air 02/12/17 22:49 36.8 69 16 164/83 97 Room Air 02/12/17 16:00 98 Room Air 02/12/17 14:48 37.2 63 18 176/85 98 Room Air 02/12/17 10:36 164/83 02/12/17 09:25 71 183/86 02/12/17 07:15 Room Air 02/12/17 07:11 36.7 50 20 196/91 97 Room Air Laboratory Results: Results Past 24 Hours Test 02/13/17 05:29 Range/Units White Blood Count 3.30 4.8-10.8 K/uL Red Blood Count 4.52 4.7-6.1 M/uL Hemoglobin 12.1 14.0-18.0 g/dL Hematocrit 36.7 42-52 % Mean Corpuscular Volume 81.2 80-100 fL Mean Corpuscular Hemoglobin 26.8 25-34 pg Mean Corpuscular Hemoglobin Concent 33.0 32-36 g/dl RDW Standard Deviation 45.5 36.4-46.3 fL RDW Coefficient of Variation 15.4 11.5-14.5 % Platelet Count 180 130-400 K/uL Mean Platelet Volume 9.5 7.4-10.4 fL Assessment & Plan 02/13/17- record reviewed- nurses having difficulty with pt compliance and refusal of treatment- no acute chgs- LFTs, lipase mildly elevated , no worsening sxs, no evidence of acute cholecystitis following- Psychiatry consulted 02/10/17- Refusing studies/ procedures. Does not have life threatening cholecystitis. No plan for surgical intervention 02/09/17- pt cont to refuse treatment plans which would entail any type of procedure- will follow in hospital care . 02/07/17- adm with recurrent pancreatitis, dilated CBD, gallstones, mild gb edema- not significantly distended- doubt significant acute cholecystitis Discussed with pt- he would likely benefit from ERCP and lap lucas. He seems to be thinking about it. 02/10/17- Refusing studies/ procedures. Does not have life threatening cholecystitis. No plan for surgical intervention 02/09/17- pt cont to refuse treatment plans which would entail any type of procedure- will follow in hospital care . 02/07/17- adm with recurrent pancreatitis, dilated CBD, gallstones, mild gb edema- not significantly distended- doubt significant acute cholecystitis Discussed with pt- he would likely benefit from ERCP and lap lucas. He seems to be thinking about it.
[2017-02-13 07:52] VITALS: BP 191/91; PULSE 56; TEMP 36.5; O2SAT 97
[2017-02-13] MEDS ORDERED: NITROGLYCERIN OINT 2% 1GM PACKET EXT SCH (09:00)
--- NOTE | 2017-02-13 13:32 | Psychiatric Consultation ---
Consultation Date of Consultation Feb 13, 2017. Identifying Data Mendoza Masterson is a 66-year-old male with a history of schizophrenia and multiple medical problems who was admitted to the hospitalist service with pancreatitis. Psychiatry was consulted for psychosis. Chief Complaint "When they strapped me into that thing, I just couldn't do it". History of Present Illness The patient is well known to us from previous consultations, and was seen earlier this month by IAIN Webber, to assess capacity to refuse recommended medical treatment. He was determined to have capacity to refuse MRI and ERCP, and was discharged 02/06/2017. He read presented to the emergency room one day later with abdominal pain after eating a hot dog, and was admitted with recurrent pancreatitis. He had an ultrasound which showed cholelithiasis and cholecystitis, and GI and surgery have been consulted. He is again declining MRCP, and is nothing by mouth. Dr. Tafoya of surgery saw him this morning, and although ERCP has been recommended, he has declined. The note indicates he does not have life-threatening cholecystitis, and lipase levels are coming down. On my assessment, the patient states that he is refusing the MRI because he does not like being in the MRI machine, and says that he had agreed to the test, but then felt uncomfortable once he got into the machine, so it was not completed. He also thinks that the magnets can cause harm to people, and is not willing to accept that risk. He is able to reiterate the risks of refusing the recommended treatment, including worsening of pancreatitis, nausea, and vomiting. He states that he feels better with the treatment he is receiving here, and is hopeful that he will continue to improve , stating that he doesn't feel safe leaving until he is able to eat and get some of his strength back. He continues to endorse paranoid delusions, stating that there is "dark stuff hitting my food, if they brought me ice chips, they wouldn't be clear, would be all black." He states that this also happens outside the hospital, and thinks that "the bad stuff was hitting that hot dog" that he ate it she eats prior to admission. He is poorly able to characterize the "dark stuff," other than to state that it is bad and makes him sick. He does feel that some of the food available to him is healthy and safe for consumption, but notes that he is currently nothing by mouth. He states he is declining the cholecystectomy because he doesn't think it will help with his overall health, and also notes "I take surgery very seriously." He does want to feel better, and states he is willing to continue to work with Dr. Gonzalez to try to improve his health. He denies auditory and visual hallucinations, delusions of reference, symptoms of depression (scored a 3 on the PHP 9), symptoms of anxiety (scored a 3 on the LUIS CARLOS 7), kervin, and thoughts of harming himself or others. Past Psychiatric History Current OP Treatment: no current treatment Access to a Gun: No Suicide Attempts: No Additional Notes Per records, long history of schizophrenia, which has been untreated for years. Previous medication trials and history of hospitalizations are unknown. Past Medical/Surgical History (1) Pancreatitis (2) Lymphedema of right lower extremity (3) History of testicular cancer (4) HTN (hypertension) (5) History of DVT of lower extremity (6) Hypothyroidism Allergies Allergies: Coded Allergies: Horse Dander (Verified Allergy, Unknown, HORSE HAIR, 02/07/17) Tetanus Toxoid (Verified Allergy, Unknown, 02/07/17) Home Medications Scheduled Clonidine HCl (Clonidine HCl), 1 PATCH TD Th@1800 Lisinopril (Zestril), 30 MG PO QAM Scheduled PRN Ondansetron Odt (Zofran Odt), 8 MG SL Q6H PRN for Nausea Family History No pertinent family history Alcohol Use Alcohol Use In Past 12 Months: Yes (admits to drinking alcohol twice in the past year.) Smoking Use Smoking Status: Former Smoker Substance History The patient denies using recreational drugs, illicit drugs, abusing prescription medications, or [id number] medications. Personal History Lives in: [place] area, homeless and has declined use of the local skilled nursing Work History: Unemployed Review of Systems 10 systems reviewed; positive for nausea, vomiting, abdominal pain, others negative except as stated above. Examination Vital Signs Vital Signs Past 12 Hours Date Time Temp Pulse Resp B/P Pulse Ox O2 Delivery O2 Flow Rate FiO2 02/13/17 08:32 Room Air 02/13/17 07:52 36.5 56 16 191/91 97 Room Air Laboratory Results Last 24 Hours Test 02/13/17 05:29 White Blood Count 3.30 K/uL Red Blood Count 4.52 M/uL Hemoglobin 12.1 g/dL Hematocrit 36.7 % Mean Corpuscular Volume 81.2 fL Mean Corpuscular Hemoglobin 26.8 pg Mean Corpuscular Hemoglobin Concent 33.0 g/dl RDW Standard Deviation 45.5 fL RDW Coefficient of Variation 15.4 % Platelet Count 180 K/uL Mean Platelet Volume 9.5 fL Mental Examination During interview pt is: alert and oriented (x6/6) Appearance: appropriately dressed (in a hospital gown), appropriately groomed ( long hair and lim, appears clean, combed), other (apppears older than stated age) Eye contact is: good Motor behavior is: no abnormal motor movements Speech: normal in rate, rhythm & volume Affect: other (full, appropriate, and congruent) Mood is: other ("fine") Thought process: goal directed Thought content: paranoid, delusions Suicidal thought are: denied Homicidal thoughts are: denied Hallucinations: denies auditory, denies visual Cognition: memory grossly intact, attention grossly intact, language grossly intact Intelligence estimated to be: average Insight: impaired Judgement: impaired Impression / Recommendations Impression 66-year-old white male with a history of untreated schizophrenia and multiple medical problems who was admitted for recurrent pancreatitis. He is expressing paranoid delusions here, which are chronic, and psychiatry was consulted for psychosis. He has long declined psychiatric medication and mental health treatment, and although he has untreated schizophrenia, he is not at imminent risk of , disability, or serious injury, so does not meet criteria for involuntarily commitment. He currently has capacity to refuse MRI and surgical interventions for his pancreatitis, as he is able to review the treatment recommendations, express his choice, appreciate the potential consequences, and explain his rational. Although his choices are not typical and are fueled in part by his paranoia, they are consistent with his previously expressed wishes. Recommendations (1) Schizophrenia Nos-Unspec Longstanding paranoia and delusions of contamination, for which he refuses antipsychotic medication and outpatient follow up. He is not at imminent risk of , disability or serious injury due to mental illness, so is not committable. Thank you for the consultation, we will continue to follow, and please notify us of a change in clinical status or willingness to accept psychiatric treatment.
--- NOTE | 2017-02-13 14:03 | Progress Note ---
Internal Med Progress Note Date of Service: Feb 13, 2017. Provider Documentation: SUBJECTIVE: The patient was seen and examined Has paranoia and psychosis No harmful to other or to himself Refusing management for his illness -repeatedly Mode any symptoms today OBJECTIVE: Vital Signs-as noted below Exam: General-no distress at rest Eyes-normal ENT-normal Neck-supple Lungs-clear to ausucltate bilaterally Heart-Regular,no murmur Abdomen-benign,no masses,bowel sound present Mildly tender upper quadrants Extremities-Chronic edema bilaterally Right more than the left Chronic cellulitis right leg Neuro-AAOx3 Lab data as noted below. ASSESSMENT & PLAN: Acute Schizophrenia Paranoid schizophrenia as per records extreme paranoia prohibiting patient from following medical recommendations (px paranoid about "magnets" for recommended MRCP procedure) Still having paranoia and significant symptoms suggestive of Schizophrenia Will consult Psychiatry-appreciate input No immediate danger to life ,does not require inpatient psychiatry care Low Blood Sugar Around 60s Will change IVF to D5NS with Potassium Potassium remains low ,will supplement Blood sugar remains stable Acute Recurrent pancreatitis likely secondary to Gall stone disease precipitated by hot dog intake. 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-refused ERCP during recent admission agreeable to undergo procedure if needed GI and Surgery consulted -appreciate input Lipase is better but not yet normal Symptomatically better Agrees to go for the procedure and refuses when it is going to be done Ongoing refusal of any recommendation Will start clears today ,check labs in AM If reasonably stable will discharge home Acute Cholecystitis Asper US LFTs are slightly elevated No Fever/Chills NO increase in WCC Surgery consulted-appreciate input Repeat LFTs are not elevated Refusing treatment Hypertension, hx non-compliance Much elevated will try Hydralazine PRN with increase frequency Remains at the upper side Past tobacco abuse Acute renal failure 2 to medications and clinical dehydration Renal function is improving . hx testicular tumor sp surgery No acute symptoms hx DVT not on anticoag 2 to homelessness On SQ Heparin Full code. DISPOSITION Social SVC consulted Has been refusing recommended studies again and again Will discharge home on improvement Understands the consequence of not following recommendation and that could result in and disability Agreeable to the procedure as of Today and later on refused Starts clears orally Likely discharge tomorrow if Labs and symptoms are reasonable Vital Signs: Date Time Temp Pulse Resp B/P Pulse Ox O2 Delivery O2 Flow Rate FiO2 02/13/17 08:32 Room Air 02/13/17 07:52 36.5 56 16 191/91 97 Room Air 02/13/17 00:20 Room Air 02/12/17 22:49 36.8 69 16 164/83 97 Room Air 02/12/17 16:00 98 Room Air 02/12/17 14:48 37.2 63 18 176/85 98 Room Air Lab Results: Results Past 24 Hours Test 02/13/17 05:29 Range/Units White Blood Count 3.30 4.8-10.8 K/uL Red Blood Count 4.52 4.7-6.1 M/uL Hemoglobin 12.1 14.0-18.0 g/dL Hematocrit 36.7 42-52 % Mean Corpuscular Volume 81.2 80-100 fL Mean Corpuscular Hemoglobin 26.8 25-34 pg Mean Corpuscular Hemoglobin Concent 33.0 32-36 g/dl RDW Standard Deviation 45.5 36.4-46.3 fL RDW Coefficient of Variation 15.4 11.5-14.5 % Platelet Count 180 130-400 K/uL Mean Platelet Volume 9.5 7.4-10.4 fL
[2017-02-13 15:43] VITALS: BP 189/93; PULSE 56; TEMP 36.9; O2SAT 97
[2017-02-13] MEDS: CLONIDINE HCL 0.1 MG/24 HR TRANSDERM SYS TD SCH (17:39)
[2017-02-13] MEDS: HYDROmorphone INJ 0.5 MG/0.5 ML SYR IV PRN ×2 (18:30→22:36)
[2017-02-13 19:02] VITALS: BP 214/105
[2017-02-13] MEDS: HydrALAZINE HCL 20 MG/ML VIAL IV. PRN (19:07)
[2017-02-13 19:56] VITALS: BP 165/84
[2017-02-13] MEDS: CIPROFLOXACIN 500 MG TAB PO SCH ×2 (21:00→21:17)
[2017-02-13] MEDS: ONDANSETRON INJ 2 MG/ML 2 ML VIAL IV PRN (21:20)
[2017-02-13 22:49] VITALS: BP 133/79; PULSE 77; TEMP 36.6; O2SAT 97
[2017-02-14] MEDS: HEPARIN SOD 5000 UNIT/0.5 ML CARP SQ SCH ×3 (06:00→21:25)
[2017-02-14 06:45] VITALS: BP 167/84; PULSE 63; TEMP 36.7; O2SAT 96
[2017-02-14 07:48] LABS: BASO % 0.9 %; BASO ABS # 0.03 K/uL (0-0.2); COMPLETE YES; EOS % 2.1 %; HEMATOCRIT 36.5 % (42-52); IG% 0.6 %; LYMPH % 20.9 %; LYMPH ABS # 0.68 K/uL (1.2-3.4); MEAN CELL VOLUME 80.6 fL (80-100); MEAN CORPUSCULAR HEMOGLOBIN 27.2 pg (25-34); MEAN CORPUSCULAR HGB CONC 33.7 g/dl (32-36); MEAN PLATELET VOLUME 9.5 fL (7.4-10.4); MONO % 14.7 %; NEUT % 60.8 %; PLATELET COUNT 193 K/uL (130-400); RED BLOOD COUNT 4.53 M/uL (4.7-6.1); WHITE BLOOD COUNT 3.26 K/uL (4.8-10.8)
[2017-02-14] MEDS: CHECK CLONIDINE PATCH PLACEMENT SCH ×4 (08:07→23:45)
[2017-02-14 08:19] LABS: CREATININE 0.88 mg/dl (0.60-1.40); POTASSIUM 3.3 mmol/L (3.5-5.1)
[2017-02-14] MEDS ORDERED: POTASSIUM CHLORIDE 10 MEQ TABCR PO ONE (09:45)
[2017-02-14] MEDS: CIPROFLOXACIN 500 MG TAB PO SCH ×2 (10:15→21:23)
--- NOTE | 2017-02-14 11:34 | Progress Note ---
Internal Med Progress Note Date of Service: Feb 14, 2017. Provider Documentation: SUBJECTIVE: The patient was seen and examined Has paranoia and psychosis No harmful to other or to himself Refusing management for his illness -repeatedly Remains stable Tolerating clears Refusing treatment OBJECTIVE: Vital Signs-as noted below Exam: General-no distress at rest Eyes-normal ENT-normal Neck-supple Lungs-clear to ausucltate bilaterally Heart-Regular,no murmur Abdomen-benign,soft ,no masses,bowel sound present Mildly tender upper quadrants Extremities-Chronic edema bilaterally Right more than the left Chronic cellulitis right leg Neuro-AAOx3 Lab data as noted below. ASSESSMENT & PLAN: Acute Recurrent pancreatitis likely secondary to Gall stone disease precipitated by hot dog intake. 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-refused ERCP during recent admission agreeable to undergo procedure if needed GI and Surgery consulted -appreciate input Agrees to go for the procedure and refuses when it is going to be done Ongoing refusal of any recommendation Clears started 02/14/16 Pain control is reasonable Lipase went up>1000 Continue clears for today If Lipase goes down and pain is reasonably controlled ,can be discharged tomorrow Discussed in detailed with the patient and he is agreaaable to that Acute Schizophrenia Paranoid schizophrenia as per records extreme paranoia prohibiting patient from following medical recommendations (px paranoid about "magnets" for recommended MRCP procedure) Still having paranoia and significant symptoms suggestive of Schizophrenia Will consult Psychiatry-appreciate input No immediate danger to life ,does not require inpatient psychiatry care stable today Low Blood Sugar Around 60s Will change IVF to D5NS with Potassium Potassium remains low ,will supplement Blood sugar remains stable Acute Cholecystitis Asper US LFTs are slightly elevated No Fever/Chills NO increase in WCC Surgery consulted-appreciate input Repeat LFTs are not elevated Refusing treatment-surgery signed off Hypertension, hx non-compliance Much elevated will try Hydralazine PRN with increase frequency Remains at the upper side Past tobacco use Acute renal failure 2 to medications and clinical dehydration Renal function is improving . hx testicular tumor sp surgery No acute symptoms hx DVT not on anticoag 2 to homelessness On SQ Heparin Full code. DISPOSITION Social SVC consulted Has been refusing recommended studies again and again Will discharge home on improvement Understands the consequence of not following recommendation and that could result in and disability Agreeable to the procedure as of Today and later on refused Continue Clear liquid orally Likely discharge tomorrow if Labs and symptoms are reasonable-towards the improved side Discussed with case management Vital Signs: Date Time Temp Pulse Resp B/P Pulse Ox O2 Delivery O2 Flow Rate FiO2 02/14/17 10:19 Room Air 02/14/17 06:45 36.7 63 17 167/84 96 Room Air 02/14/17 00:30 Room Air 02/13/17 22:49 36.6 77 16 133/79 97 Room Air 02/13/17 19:56 165/84 02/13/17 19:02 214/105 02/13/17 15:45 Room Air 02/13/17 15:43 36.9 56 18 189/93 97 Room Air Lab Results: Results Past 24 Hours Test 02/14/17 07:30 Range/Units White Blood Count 3.26 4.8-10.8 K/uL Red Blood Count 4.53 4.7-6.1 M/uL Hemoglobin 12.3 14.0-18.0 g/dL Hematocrit 36.5 42-52 % Mean Corpuscular Volume 80.6 80-100 fL Mean Corpuscular Hemoglobin 27.2 25-34 pg Mean Corpuscular Hemoglobin Concent 33.7 32-36 g/dl Platelet Count 193 130-400 K/uL Mean Platelet Volume 9.5 7.4-10.4 fL Neutrophils (%) (Auto) 60.8 % Lymphocytes (%) (Auto) 20.9 % Monocytes (%) (Auto) 14.7 % Eosinophils (%) (Auto) 2.1 % Basophils (%) (Auto) 0.9 % Neutrophils # (Auto) 1.98 1.4-6.5 K/uL Lymphocytes # (Auto) 0.68 1.2-3.4 K/uL Monocytes # (Auto) 0.48 0.11-0.59 K/uL Eosinophils # (Auto) 0.07 0-0.5 K/uL Basophils # (Auto) 0.03 0-0.2 K/uL RDW Standard Deviation 45.8 36.4-46.3 fL RDW Coefficient of Variation 15.6 11.5-14.5 % Immature Granulocyte % (Auto) 0.6 % Immature Granulocyte # (Auto) 0.02 0.00-0.02 K/uL Sodium Level 141 136-145 mmol/L Potassium Level 3.3 3.5-5.1 mmol/L Chloride Level 109 98-107 mmol/L Carbon Dioxide Level 22 21-32 mmol/L Anion Gap 10.0 3-11 mmol/L Blood Urea Nitrogen 16 7-18 mg/dl Creatinine 0.88 0.60-1.40 mg/dl Est Creatinine Clear Calc Drug Dose 70.3 ml/min Estimated GFR () 105.2 Estimated GFR (Non- 90.8 BUN/Creatinine Ratio 18.0 10-20 Random Glucose 72 70-99 mg/dl Calcium Level 9.0 8.5-10.1 mg/dl Total Bilirubin 2.3 0.2-1 mg/dl Direct Bilirubin 1.3 0-0.2 mg/dl Aspartate Amino Transf (AST/SGOT) 65 15-37 U/L Alanine Aminotransferase (ALT/SGPT) 48 12-78 U/L Alkaline Phosphatase 582 45-117 U/L Total Protein 6.9 6.4-8.2 gm/dl Albumin 3.0 3.4-5.0 gm/dl Lipase 1301 73-393 U/L
[2017-02-14] MEDS: HYDROmorphone INJ 0.5 MG/0.5 ML SYR IV PRN ×3 (13:47→22:12)
[2017-02-14 16:02] VITALS: BP 172/93; PULSE 55; TEMP 36.5; O2SAT 96
[2017-02-14] MEDS: HydrALAZINE HCL 20 MG/ML VIAL IV. PRN (16:16)
[2017-02-14] MEDS: ONDANSETRON INJ 2 MG/ML 2 ML VIAL IV PRN (18:14)
[2017-02-14 22:55] VITALS: BP 119/85; PULSE 55; TEMP 36.6; O2SAT 96
[2017-02-15] MEDS: HEPARIN SOD 5000 UNIT/0.5 ML CARP SQ SCH ×3 (05:51→22:00)
[2017-02-15 07:35] VITALS: BP 129/85; PULSE 53; TEMP 36.3; O2SAT 97
[2017-02-15] MEDS: CHECK CLONIDINE PATCH PLACEMENT SCH ×3 (07:38→23:46)
[2017-02-15] MEDS: CIPROFLOXACIN 500 MG TAB PO SCH ×2 (08:28→23:45)
[2017-02-15] MEDS: HYDROmorphone INJ 0.5 MG/0.5 ML SYR IV PRN ×3 (08:28→23:48)
[2017-02-15 09:24] LABS: HEMATOCRIT 38.8 % (42-52); MEAN CELL VOLUME 80.2 fL (80-100); MEAN CORPUSCULAR HEMOGLOBIN 26.4 pg (25-34); MEAN PLATELET VOLUME 9.7 fL (7.4-10.4); PLATELET COUNT 227 K/uL (130-400); RED BLOOD COUNT 4.84 M/uL (4.7-6.1); WHITE BLOOD COUNT 3.21 K/uL (4.8-10.8)
[2017-02-15 09:55] LABS: BUN/CREATININE RATIO 19.6 (10-20); CALCIUM 8.9 mg/dl (8.5-10.1); CREATININE 1.1 mg/dl (0.60-1.40); POTASSIUM 3.4 mmol/L (3.5-5.1)
[2017-02-15 10:13] LABS: ALB/GLOB RATIO 0.8 (0.9-2)
[2017-02-15 15:27] VITALS: BP 132/73; PULSE 51; TEMP 36.4; O2SAT 96
[2017-02-15 16:00] VITALS: O2SAT 96
[2017-02-15] MEDS: SODIUM CHLORIDE 0.9% 1000ML 1,000 ML IV SCH ×2 (17:06→22:33)
--- NOTE | 2017-02-15 20:27 | Progress Note ---
Medicine Progress Note Date & Time of Visit: Feb 15, 2017 at 19:50. Subjective Pt was seen and examined lying in bed with no distress he said that he developed abdominal pain today he is still refusing medical management for the recurrent pancreatitis such ERCP , IVF, medications pt is paranoid, he thinks the IV bag is dirty or someone is injected something in his IV access. He thinks there is someone standing at the head of the bed at his left side hiding denies any fever, palpitation, dizziness and sob Objective Last 8 Hrs Date Time Temp Pulse Resp B/P Pulse Ox O2 Delivery O2 Flow Rate FiO2 02/15/17 15:27 36.4 51 16 132/73 96 Room Air Physical Exam: General- No acute distress Head- atraumatic Eyes- PERRL, EOMI ENT- oropharynx clear Neck- supple, no JVD Lungs- no wheezing Heart- regular rhythm Abdomen- normal bowel sounds, soft, +tenderness Extremities- no calf tenderness, B/L LE edema with chronic leg ulcers Neuro- alert, oriented, PERRL, EOMI, paranoid behavior Skin- warm & dry Laboratory Results: Last 24 Hours Test 02/15/17 09:01 White Blood Count 3.21 K/uL Red Blood Count 4.84 M/uL Hemoglobin 12.8 g/dL Hematocrit 38.8 % Mean Corpuscular Volume 80.2 fL Mean Corpuscular Hemoglobin 26.4 pg Mean Corpuscular Hemoglobin Concent 33.0 g/dl RDW Standard Deviation 46.3 fL RDW Coefficient of Variation 15.8 % Platelet Count 227 K/uL Mean Platelet Volume 9.7 fL Sodium Level 143 mmol/L Potassium Level 3.4 mmol/L Chloride Level 108 mmol/L Carbon Dioxide Level 28 mmol/L Anion Gap 7.0 mmol/L Blood Urea Nitrogen 22 mg/dl Creatinine 1.10 mg/dl Est Creatinine Clear Calc Drug Dose 56.2 ml/min Estimated GFR () 81.8 Estimated GFR (Non- 70.6 BUN/Creatinine Ratio 19.6 Random Glucose 87 mg/dl Calcium Level 8.9 mg/dl Total Bilirubin 3.1 mg/dl Aspartate Amino Transf (AST/SGOT) 74 U/L Alanine Aminotransferase (ALT/SGPT) 63 U/L Alkaline Phosphatase 587 U/L Total Protein 7.1 gm/dl Albumin 3.2 gm/dl Globulin 3.9 gm/dl Albumin/Globulin Ratio 0.8 Lipase 2466 U/L Assessment & Plan Recurrent pancreatitis likely secondary to Gallstone disease Aggressive hydration,pain medication and Antibiotic- Refused IVF possible biliary/pancreatic tumor-refused MRCP during last admission and this admission as well GI and Surgery consulted -appreciate input Ongoing refusal of any recommendation continue clear liquid diet Pain control is reasonable Lipase increased to 2K Continue refusing IVF and MRCP after a long discussion with him he said that he will think about the MRCP. Agreed with the fluid, but when the nurse tried to start it, he refused he understands the risk for refusing appropriate management such as worsening symptoms and even . If Lipase goes down and pain is reasonably controlled ,can be discharged tomorrow Acute Schizophrenia Paranoid schizophrenia as per records extreme paranoia prohibiting patient from following medical recommendations (px paranoid about "magnets" for recommended MRCP procedure) Still having paranoia and significant symptoms suggestive of Schizophrenia Psych consulted as per psych no immediate danger to life ,does not require inpatient psychiatry care stable today Low Blood Sugar Blood sugar remains stable Acute Cholecystitis As per US LFTs are slightly elevated No Fever/Chills NO increase in WCC Surgery consulted-appreciate input Repeat LFTs are not elevated Refusing treatment-surgery signed off Hypertension, hx non-compliance Hydralazine PRN Stable Acute renal failure Possible related to medications and clinical dehydration Resolved hx testicular tumor sp surgery No acute symptoms stable Hx DVT not a good candidate for anticoag. 2 to homelessness and noncompliant DVT px On SQ Heparin CODE STATUS Full code. Current Inpatient Medications: Current Inpatient Medications Medications (Trade) Dose Ordered Sig/Marilyn Route Start Time Stop Time Status Last Admin Dose Admin Heparin Sodium (Porcine) (Heparin Sq 5000 Unit/0.5ml) 5,000 unit Q8H SQ 02/07/17 06:00 03/09/17 05:59 Acetaminophen (Tylenol Tab) 650 mg Q4H PRN PO 02/07/17 05:00 03/09/17 04:59 Ondansetron HCl 4 mg 4 mg Q6H PRN IV 02/07/17 05:00 03/09/17 04:59 02/14/17 18:14 4 MG Promethazine HCl/ Sodium Chloride (Phenergan Inj/ Nss 50ml) 50.5 ml @ 204 mls/hr Q6H PRN IV 02/07/17 05:00 03/09/17 04:59 02/07/17 17:40 204 MLS/HR Clonidine HCl (Qwukkiyx-Mhi-7 0.1mg/24hr Patch) 1 patch Th@1800 TD 02/09/17 18:00 03/11/17 17:59 02/13/17 17:39 1 PATCH Tramadol HCl not relieved by tylenol @ Q6H PRN PO 02/07/17 05:30 03/09/17 05:29 Acetaminophen 650 mg/Empty Bag 65 ml @ 260 mls/hr Q6H PRN IV 02/07/17 05:30 03/09/17 05:29 02/09/17 15:41 260 MLS/HR Lorazepam/Syringe (Ativan Inj/ Syringe) 1 ml @ 1 mls/min Q4H PRN IV 02/07/17 05:30 03/09/17 05:29 02/09/17 00:06 1 MLS/MIN Miscellaneous (Remove Clonidine Patch) 1 ea Th@1759 N/A 02/09/17 17:59 03/11/17 17:58 02/09/17 17:53 1 EA Miscellaneous Information (Check Clonidine Patch Placement) 1 ea QS N/A 02/07/17 08:00 03/09/17 07:59 02/15/17 17:16 1 EA Hydralazine HCl (HydrALAZINE INJ) 10 mg Q4H PRN IV. 02/08/17 20:21 03/10/17 20:20 02/14/17 16:16 10 MG Hydromorphone HCl (Dilaudid Inj) 0.5 mg Q4H PRN IV 02/10/17 21:52 02/24/17 21:51 02/15/17 14:24 0.5 MG Ciprofloxacin 500 mg 500 mg BID PO 02/13/17 21:00 02/23/17 20:59 02/15/17 08:28 500 MG Sodium Chloride (Nss 1000ml) 1,000 ml @ 150 mls/hr Q6H40M IV 02/15/17 16:00 03/17/17 15:59
[2017-02-15] MEDS: ONDANSETRON INJ 2 MG/ML 2 ML VIAL IV PRN (22:28)
[2017-02-15 23:00] VITALS: BP 158/95; PULSE 66; TEMP 36.9; O2SAT 99
[2017-02-15] MEDS ORDERED: PROMETHAZINE HCL INJ 12.5 MG in SODIUM CHLORIDE 0.9% 50ML 50 ML IV PRN (23:00)
[2017-02-16] MEDS: LORAZEPAM INJ 0.5 MG in SYRINGE 0.75 ML IV PRN (03:44)
[2017-02-16] MEDS: HYDROmorphone INJ 0.5 MG/0.5 ML SYR IV PRN ×5 (03:44→23:12)
[2017-02-16] MEDS: SODIUM CHLORIDE 0.9% 1000ML 1,000 ML IV SCH ×3 (04:36→17:47)
[2017-02-16] MEDS: HEPARIN SOD 5000 UNIT/0.5 ML CARP SQ SCH ×3 (05:50→21:48)
[2017-02-16 07:20] LABS: HEMATOCRIT 37.9 % (42-52); MEAN CELL VOLUME 80.3 fL (80-100); MEAN CORPUSCULAR HEMOGLOBIN 26.5 pg (25-34); MEAN PLATELET VOLUME 9.6 fL (7.4-10.4); PLATELET COUNT 229 K/uL (130-400); RED BLOOD COUNT 4.72 M/uL (4.7-6.1); WHITE BLOOD COUNT 5.28 K/uL (4.8-10.8)
[2017-02-16 07:40] VITALS: BP 161/101; PULSE 52; TEMP 36.4; O2SAT 96
[2017-02-16] MEDS: ONDANSETRON INJ 2 MG/ML 2 ML VIAL IV PRN (07:56)
[2017-02-16 07:58] LABS: BUN/CREATININE RATIO 22.6 (10-20); CALCIUM 9.2 mg/dl (8.5-10.1); CREATININE 1.1 mg/dl (0.60-1.40); POTASSIUM 3.2 mmol/L (3.5-5.1)
[2017-02-16] MEDS: CHECK CLONIDINE PATCH PLACEMENT SCH ×2 (08:31→15:42)
[2017-02-16] MEDS ORDERED: POTASSIUM CHLORIDE 20 MEQ TABCR PO ONE (08:45)
[2017-02-16] MEDS: CIPROFLOXACIN 500 MG TAB PO SCH (11:57)
[2017-02-16] MEDS ORDERED: PIPERACILL/TAZOBAC CONSULT ACTIVE PRN (12:45)
[2017-02-16] MEDS ORDERED: VANCOMYCIN CONSULT ACTIVE PRN (12:45)
[2017-02-16] MEDS ORDERED: PIPERACILL/TAZOBAC IV 3.375 GM in DEXTROSE 5% 100ML 100 ML IV ONE (13:15)
[2017-02-16 15:26] VITALS: BP 150/83; PULSE 57; TEMP 36.5; O2SAT 99
[2017-02-16] MEDS: CLONIDINE HCL 0.1 MG/24 HR TRANSDERM SYS TD SCH (17:47)
[2017-02-16] MEDS ORDERED: PIPERACILL/TAZOBAC IV 3.375 GM in DEXTROSE 5% 100ML 100 ML IV SCH (18:00)
--- NOTE | 2017-02-16 18:42 | Progress Note ---
Medicine Progress Note Date & Time of Visit: Feb 16, 2017 at 18:42. Subjective Pt was seen and examined Lying in bed with no distress Pt said that he is having alot of abd pain he agreed to start the IVF since his lipase increased denies any chest pain, palpitation and sob. Objective Last 8 Hrs Date Time Temp Pulse Resp B/P Pulse Ox O2 Delivery O2 Flow Rate FiO2 02/16/17 15:26 36.5 57 18 150/83 99 Room Air Physical Exam: General- No acute distress Head- atraumatic Eyes- PERRL, EOMI ENT- oropharynx clear Neck- supple, no JVD Lungs- no wheezing Heart- regular rhythm Abdomen- normal bowel sounds, soft, +tenderness Extremities- no calf tenderness, B/L LE edema with chronic leg ulcers Neuro- alert, oriented, PERRL, EOMI, paranoid behavior Skin- warm & dry Laboratory Results: Last 24 Hours Test 02/16/17 06:50 White Blood Count 5.28 K/uL Red Blood Count 4.72 M/uL Hemoglobin 12.5 g/dL Hematocrit 37.9 % Mean Corpuscular Volume 80.3 fL Mean Corpuscular Hemoglobin 26.5 pg Mean Corpuscular Hemoglobin Concent 33.0 g/dl RDW Standard Deviation 46.7 fL RDW Coefficient of Variation 15.8 % Platelet Count 229 K/uL Mean Platelet Volume 9.6 fL Sodium Level 146 mmol/L Potassium Level 3.2 mmol/L Chloride Level 108 mmol/L Carbon Dioxide Level 28 mmol/L Anion Gap 10.0 mmol/L Blood Urea Nitrogen 25 mg/dl Creatinine 1.10 mg/dl Est Creatinine Clear Calc Drug Dose 56.2 ml/min Estimated GFR () 81.8 Estimated GFR (Non- 70.6 BUN/Creatinine Ratio 22.6 Random Glucose 92 mg/dl Calcium Level 9.2 mg/dl Lipase 4524 U/L Assessment & Plan Recurrent pancreatitis likely secondary to Gallstone disease Aggressive hydration,pain medication and Antibiotic- Refused IVF possible biliary/pancreatic tumor-refused MRCP during last admission and this admission as well GI and Surgery consulted -appreciate input Ongoing refusal of any recommendation continue clear liquid diet Pain control is reasonable Lipase increased to ~4500 Refused IVF and MRCP after a long discussion with him yesterday he said that he will think about the MRCP. he understands the risk for refusing appropriate management such as worsening symptoms and even . Today he agreed to start IVF and requested about IV abx If Lipase trending down and pain is reasonably controlled ,can be discharged tomorrow Acute Schizophrenia Paranoid schizophrenia as per records extreme paranoia prohibiting patient from following medical recommendations (px paranoid about "magnets" for recommended MRCP procedure) Still having paranoia and significant symptoms suggestive of Schizophrenia Psych consulted as per psych no immediate danger to life ,does not require inpatient psychiatry care stable today Low Blood Sugar Blood sugar remains stable Acute Cholecystitis As per [place] LFTs are slightly elevated No Fever/Chills NO increase in WCC Surgery consulted-appreciate input Repeat LFTs are not elevated Refusing treatment-surgery signed off Hypertension, hx non-compliance Hydralazine PRN Stable Acute renal failure Possible related to medications and clinical dehydration Resolved hx testicular tumor sp surgery No acute symptoms stable Hx DVT not a good candidate for anticoag. 2 to homelessness and noncompliant DVT px On SQ Heparin CODE STATUS Full code. Current Inpatient Medications: Current Inpatient Medications Medications (Trade) Dose Ordered Sig/Marilyn Route Start Time Stop Time Status Last Admin Dose Admin Heparin Sodium (Porcine) (Heparin Sq 5000 Unit/0.5ml) 5,000 unit Q8H SQ 02/07/17 06:00 03/09/17 05:59 Acetaminophen (Tylenol Tab) 650 mg Q4H PRN PO 02/07/17 05:00 03/09/17 04:59 Ondansetron HCl 4 mg 4 mg Q6H PRN IV 02/07/17 05:00 03/09/17 04:59 02/16/17 07:56 4 MG Promethazine HCl/ Sodium Chloride (Phenergan Inj/ Nss 50ml) 50.5 ml @ 204 mls/hr Q6H PRN IV 02/07/17 05:00 03/09/17 04:59 02/07/17 17:40 204 MLS/HR Clonidine HCl (Zcqlbyao-Wbz-3 0.1mg/24hr Patch) 1 patch Th@1800 TD 02/09/17 18:00 03/11/17 17:59 02/16/17 17:47 1 PATCH Tramadol HCl not relieved by tylenol @ Q6H PRN PO 02/07/17 05:30 03/09/17 05:29 Acetaminophen 650 mg/Empty Bag 65 ml @ 260 mls/hr Q6H PRN IV 02/07/17 05:30 03/09/17 05:29 02/09/17 15:41 260 MLS/HR Lorazepam/Syringe (Ativan Inj/ Syringe) 1 ml @ 1 mls/min Q4H PRN IV 02/07/17 05:30 03/09/17 05:29 02/16/17 03:44 1 MLS/MIN Miscellaneous (Remove Clonidine Patch) 1 ea Th@1759 N/A 02/09/17 17:59 03/11/17 17:58 02/16/17 17:47 1 EA Miscellaneous Information (Check Clonidine Patch Placement) 1 ea QS N/A 02/07/17 08:00 03/09/17 07:59 02/16/17 15:42 1 EA Hydralazine HCl (HydrALAZINE INJ) 10 mg Q4H PRN IV. 02/08/17 20:21 03/10/17 20:20 02/14/17 16:16 10 MG Hydromorphone HCl (Dilaudid Inj) 0.5 mg Q4H PRN IV 02/10/17 21:52 02/24/17 21:51 02/16/17 16:14 0.5 MG Ciprofloxacin 500 mg 500 mg BID PO 02/13/17 21:00 02/23/17 20:59 Future Hold 02/15/17 08:28 500 MG Sodium Chloride 1,000 ml @ 150 mls/hr Q6H40M IV 02/15/17 16:00 03/17/17 15:59 02/16/17 17:47 150 MLS/HR Promethazine HCl/ Sodium Chloride (Phenergan Inj/ Nss 50ml) 50.5 ml @ 204 mls/hr Q6H PRN IV 02/15/17 23:00 03/17/17 22:59 Piperacillin Sod/ Tazobactam Sod 1 ea 1 ea UD PRN N/A 02/16/17 12:45 03/18/17 12:44 Piperacillin Sod/ Tazobactam Sod/ Dextrose (Zosyn Iv/D5 100ml) 115 ml @ 28.75 mls/ hr Q8H IV 02/16/17 20:00 02/26/17 19:59
[2017-02-16] MEDS ORDERED: SODIUM CHLOR 0.45% + 20MEQ KCL 1,000 ML IV SCH (19:30)
[2017-02-16] MEDS: PIPERACILL/TAZOBAC IV 3.375 GM in DEXTROSE 5% 100ML IV SCH (19:32)
[2017-02-16] MEDS ORDERED: POTASSIUM CHLORIDE 10 MEQ TABCR PO STA (19:44)
[2017-02-16] MEDS: SODIUM CHLORIDE 0.45% 1000ML 1,000 ML IV SCH (20:00)
[2017-02-16 22:45] VITALS: BP 164/86; PULSE 74; TEMP 36.8; O2SAT 97
[2017-02-17] MEDS: SODIUM CHLORIDE 0.45% 1000ML 1,000 ML IV SCH (02:40)
[2017-02-17] MEDS: PIPERACILL/TAZOBAC IV 3.375 GM in DEXTROSE 5% 100ML IV SCH ×3 (03:37→19:30)
[2017-02-17] MEDS: HEPARIN SOD 5000 UNIT/0.5 ML CARP SQ SCH ×3 (06:00→21:30)
[2017-02-17 06:44] LABS: BASO % 0.4 %; BASO ABS # 0.02 K/uL (0-0.2); COMPLETE YES; EOS % 2.2 %; HEMATOCRIT 38.5 % (42-52); IG% 0.4 %; LYMPH % 5.4 %; LYMPH ABS # 0.25 K/uL (1.2-3.4); MEAN CELL VOLUME 80.5 fL (80-100); MEAN CORPUSCULAR HEMOGLOBIN 25.9 pg (25-34); MEAN CORPUSCULAR HGB CONC 32.2 g/dl (32-36); MEAN PLATELET VOLUME 9.7 fL (7.4-10.4); NEUT % 84.6 %; PLATELET COUNT 204 K/uL (130-400); RED BLOOD COUNT 4.78 M/uL (4.7-6.1); WHITE BLOOD COUNT 4.59 K/uL (4.8-10.8)
[2017-02-17 07:35] LABS: CREATININE 1.1 mg/dl (0.60-1.40); POTASSIUM 3.1 mmol/L (3.5-5.1)
[2017-02-17] MEDS: HYDROmorphone INJ 0.5 MG/0.5 ML SYR IV PRN ×3 (07:37→19:39)
[2017-02-17] MEDS: CHECK CLONIDINE PATCH PLACEMENT SCH ×4 (07:38→23:56)
[2017-02-17 07:45] VITALS: BP 152/80; PULSE 57; TEMP 36.6; O2SAT 93
[2017-02-17] MEDS: ONDANSETRON INJ 2 MG/ML 2 ML VIAL IV PRN (09:20)
[2017-02-17] MEDS ORDERED: POTASSIUM CHLORIDE 20 MEQ TABCR PO ONE (09:30)
[2017-02-17 11:01] VITALS: O2SAT 93
--- NOTE | 2017-02-17 14:36 | Psychiatric Progress Notes ---
Psychiatric Progress Note Date of Service Feb 17, 2017. Notes ID: Patient reviewed with liaison nurse. Initial consult by Dr. Davies on 02/13 reviewed. Patient known to me from previous stay. CC: "this is a bad am" HPI: notes personality conflicts with staff shift to shift but no calls to our service re: acting out behaviors. He is clearly aware another MRI was recommended, states he didn't like being strapped down and that he has some baseline claustrophobia. ROS: c/o N and poor appetite MSE: alert, readily redirected/calmed, smiling by end of interaction Imp: as per initial consult, agree he has capacity to make medical decisions Plan: there is some anxiety related to medical decision making if not jasmine paranoia, encouraged use of prn Ativan prior to procedures, he continues to decline standing dose. He is unlikely to request prns as doesn't want "help" so best if given as MD order 30 min prior to procedures.
[2017-02-17 14:53] VITALS: BP 140/80; PULSE 48; TEMP 36.5; O2SAT 96
--- NOTE | 2017-02-17 20:46 | Progress Note ---
Medicine Progress Note Date & Time of Visit: Feb 17, 2017 at 20:43. Subjective Pt was seen and examined Lying in complaint of abdominal pain Pt refused the IVF last night he agreed to start the IVF today he refused the potassium denies any fever, chest pain and palpitation Objective Last 8 Hrs Date Time Temp Pulse Resp B/P Pulse Ox O2 Delivery O2 Flow Rate FiO2 02/17/17 15:30 Room Air 02/17/17 14:53 36.5 48 16 140/80 96 Room Air Physical Exam: General- No acute distress Head- atraumatic Eyes- PERRL, EOMI ENT- oropharynx clear Neck- supple, no JVD Lungs- no wheezing Heart- regular rhythm Abdomen- normal bowel sounds, soft, +tenderness Extremities- no calf tenderness, B/L LE edema with chronic leg ulcers Neuro- alert, oriented, PERRL, EOMI, paranoid behavior Skin- warm & dry Laboratory Results: Last 24 Hours Test 02/17/17 06:30 White Blood Count 4.59 K/uL Red Blood Count 4.78 M/uL Hemoglobin 12.4 g/dL Hematocrit 38.5 % Mean Corpuscular Volume 80.5 fL Mean Corpuscular Hemoglobin 25.9 pg Mean Corpuscular Hemoglobin Concent 32.2 g/dl Platelet Count 204 K/uL Mean Platelet Volume 9.7 fL Neutrophils (%) (Auto) 84.6 % Lymphocytes (%) (Auto) 5.4 % Monocytes (%) (Auto) 7.0 % Eosinophils (%) (Auto) 2.2 % Basophils (%) (Auto) 0.4 % Neutrophils # (Auto) 3.88 K/uL Lymphocytes # (Auto) 0.25 K/uL Monocytes # (Auto) 0.32 K/uL Eosinophils # (Auto) 0.10 K/uL Basophils # (Auto) 0.02 K/uL RDW Standard Deviation 46.8 fL RDW Coefficient of Variation 15.9 % Immature Granulocyte % (Auto) 0.4 % Immature Granulocyte # (Auto) 0.02 K/uL Sodium Level 147 mmol/L Potassium Level 3.1 mmol/L Chloride Level 108 mmol/L Carbon Dioxide Level 32 mmol/L Anion Gap 7.0 mmol/L Blood Urea Nitrogen 22 mg/dl Creatinine 1.10 mg/dl Est Creatinine Clear Calc Drug Dose 56.2 ml/min Estimated GFR () 81.8 Estimated GFR (Non- 70.6 BUN/Creatinine Ratio 20.0 Random Glucose 99 mg/dl Calcium Level 9.0 mg/dl Lipase 2825 U/L Assessment & Plan Recurrent pancreatitis likely secondary to Gallstone disease Aggressive hydration,pain medication and Antibiotic- Refused IVF possible biliary/pancreatic tumor-refused MRCP during last admission and this admission as well GI and Surgery consulted -appreciate input Ongoing refusal of any recommendation continue clear liquid diet Pain control is reasonable Lipase increased to ~4500 Refused IVF and MRCP after a long discussion with him yesterday he said that he will think about the MRCP. he understands the risk for refusing appropriate management such as worsening symptoms and even . received IVF and abx yesterday, but refused at night Today he agreed to start IVF and IV abx again Continue to refuse MRCP If Lipase trending down and pain is reasonably controlled Acute Schizophrenia Paranoid schizophrenia as per records extreme paranoia prohibiting patient from following medical recommendations (px paranoid about "magnets" for recommended MRCP procedure) Still having paranoia and significant symptoms suggestive of Schizophrenia Psych consulted as per psych no immediate danger to life ,does not require inpatient psychiatry care stable today Low Blood Sugar Blood sugar remains stable Acute Cholecystitis As per US LFTs are slightly elevated No Fever/Chills NO increase in [facility] Surgery consulted-appreciate input Repeat LFTs are not elevated Refusing treatment-surgery signed off Hypertension, hx non-compliance Hydralazine PRN Stable Acute renal failure Possible related to medications and clinical dehydration Resolved hx testicular tumor sp surgery No acute symptoms stable Hx DVT not a good candidate for anticoag. 2 to homelessness and noncompliant DVT px On SQ Heparin CODE STATUS Full code. Current Inpatient Medications: Current Inpatient Medications Medications (Trade) Dose Ordered Sig/Marilyn Route Start Time Stop Time Status Last Admin Dose Admin Heparin Sodium (Porcine) (Heparin Sq 5000 Unit/0.5ml) 5,000 unit Q8H SQ 02/07/17 06:00 03/09/17 05:59 Acetaminophen (Tylenol Tab) 650 mg Q4H PRN PO 02/07/17 05:00 03/09/17 04:59 Ondansetron HCl (Zofran Inj) 4 mg Q6H PRN IV 02/07/17 05:00 03/09/17 04:59 02/17/17 09:20 4 MG Clonidine HCl (Xkzaulli-Mzo-2 0.1mg/24hr Patch) 1 patch Th@1800 TD 02/09/17 18:00 03/11/17 17:59 02/16/17 17:47 1 PATCH Tramadol HCl not relieved by tylenol @ Q6H PRN PO 02/07/17 05:30 03/09/17 05:29 Acetaminophen 650 mg/Empty Bag 65 ml @ 260 mls/hr Q6H PRN IV 02/07/17 05:30 03/09/17 05:29 02/09/17 15:41 260 MLS/HR Lorazepam/Syringe (Ativan Inj/ Syringe) 1 ml @ 1 mls/min Q4H PRN IV 02/07/17 05:30 03/09/17 05:29 02/16/17 03:44 1 MLS/MIN Miscellaneous (Remove Clonidine Patch) 1 ea Th@1759 N/A 02/09/17 17:59 03/11/17 17:58 02/16/17 17:47 1 EA Miscellaneous Information (Check Clonidine Patch Placement) 1 ea QS N/A 02/07/17 08:00 03/09/17 07:59 02/17/17 16:00 1 EA Hydralazine HCl (HydrALAZINE INJ) 10 mg Q4H PRN IV. 02/08/17 20:21 03/10/17 20:20 02/14/17 16:16 10 MG Hydromorphone HCl (Dilaudid Inj) 0.5 mg Q4H PRN IV 02/10/17 21:52 02/24/17 21:51 02/17/17 19:39 0.5 MG Ciprofloxacin 500 mg 500 mg BID PO 02/13/17 21:00 02/23/17 20:59 Future Hold 02/15/17 08:28 500 MG Promethazine HCl/ Sodium Chloride (Phenergan Inj/ Nss 50ml) 50.5 ml @ 204 mls/hr Q6H PRN IV 02/15/17 23:00 03/17/17 22:59 Piperacillin Sod/ Tazobactam Sod 1 ea 1 ea UD PRN N/A 02/16/17 12:45 03/18/17 12:44 Piperacillin Sod/ Tazobactam Sod/ Dextrose (Zosyn Iv/D5 100ml) 115 ml @ 28.75 mls/ hr Q8H IV 02/16/17 20:00 02/26/17 19:59 02/17/17 11:44 28.75 MLS/HR
[2017-02-17 22:54] VITALS: BP 164/95; PULSE 43; TEMP 36.7; O2SAT 96
[2017-02-18 00:25] VITALS: BP 165/95
[2017-02-18] MEDS: HYDROmorphone INJ 0.5 MG/0.5 ML SYR IV PRN ×4 (00:25→22:39)
[2017-02-18] MEDS: HydrALAZINE HCL 20 MG/ML VIAL IV. PRN (00:25)
[2017-02-18] MEDS: PIPERACILL/TAZOBAC IV 3.375 GM in DEXTROSE 5% 100ML IV SCH ×3 (04:00→20:00)
[2017-02-18] MEDS: HEPARIN SOD 5000 UNIT/0.5 ML CARP SQ SCH ×3 (05:57→21:43)
[2017-02-18 07:15] VITALS: BP 183/97; PULSE 41; TEMP 36.6; O2SAT 95
[2017-02-18] MEDS: CHECK CLONIDINE PATCH PLACEMENT SCH ×2 (07:21→16:09)
[2017-02-18 07:28] LABS: HEMATOCRIT 38.4 % (42-52); MEAN CORPUSCULAR HEMOGLOBIN 26.2 pg (25-34); MEAN CORPUSCULAR HGB CONC 32.3 g/dl (32-36); MEAN PLATELET VOLUME 9.9 fL (7.4-10.4); PLATELET COUNT 213 K/uL (130-400); RED BLOOD COUNT 4.74 M/uL (4.7-6.1); WHITE BLOOD COUNT 4.76 K/uL (4.8-10.8)
[2017-02-18 08:04] LABS: BUN/CREATININE RATIO 19.2 (10-20); CALCIUM 9.1 mg/dl (8.5-10.1); CREATININE 1.1 mg/dl (0.60-1.40); MAGNESIUM 2.3 mg/dl (1.8-2.4); POTASSIUM 3.3 mmol/L (3.5-5.1)
[2017-02-18] MEDS ORDERED: POTASSIUM CHLORIDE 20 MEQ TABCR PO ONE (09:45)
[2017-02-18 15:11] VITALS: BP 155/88; PULSE 43; TEMP 36.6; O2SAT 97
[2017-02-18 16:00] VITALS: O2SAT 97
--- NOTE | 2017-02-18 21:08 | Progress Note ---
Medicine Progress Note Date & Time of Visit: Feb 18, 2017 at 21:04. Subjective Pt was seen and examined lying in bed complaint of abdominal pain pt said that he was vomiting this morning he refused to get IVF this morning and potassium replacement Pt is paranoid today he said that there is someone in the room that poked him in his nose and messed with his food and the IV fluid denies any chest pain, palpitation and SOB Objective Last 8 Hrs Date Time Temp Pulse Resp B/P Pulse Ox O2 Delivery O2 Flow Rate FiO2 02/18/17 16:00 97 Room Air 02/18/17 15:11 36.6 43 18 155/88 97 Room Air Physical Exam: General- No acute distress Head- atraumatic Eyes- PERRL, EOMI ENT- oropharynx clear Neck- supple, no JVD Lungs- no wheezing Heart- regular rhythm Abdomen- normal bowel sounds, soft, +tenderness Extremities- no calf tenderness, B/L LE edema with chronic leg ulcers Neuro- alert, oriented, PERRL, EOMI, paranoid behavior Skin- warm & dry Laboratory Results: Last 24 Hours Test 02/18/17 06:52 White Blood Count 4.76 K/uL Red Blood Count 4.74 M/uL Hemoglobin 12.4 g/dL Hematocrit 38.4 % Mean Corpuscular Volume 81.0 fL Mean Corpuscular Hemoglobin 26.2 pg Mean Corpuscular Hemoglobin Concent 32.3 g/dl RDW Standard Deviation 47.9 fL RDW Coefficient of Variation 16.2 % Platelet Count 213 K/uL Mean Platelet Volume 9.9 fL Sodium Level 145 mmol/L Potassium Level 3.3 mmol/L Chloride Level 107 mmol/L Carbon Dioxide Level 32 mmol/L Anion Gap 6.0 mmol/L Blood Urea Nitrogen 21 mg/dl Creatinine 1.10 mg/dl Est Creatinine Clear Calc Drug Dose 56.2 ml/min Estimated GFR () 81.8 Estimated GFR (Non- 70.6 BUN/Creatinine Ratio 19.2 Random Glucose 117 mg/dl Calcium Level 9.1 mg/dl Magnesium Level 2.3 mg/dl Lipase 2621 U/L Assessment & Plan Recurrent pancreatitis likely secondary to Gallstone disease Aggressive hydration,pain medication and Antibiotic- Refused IVF possible biliary/pancreatic tumor-refused MRCP during last admission and this admission as well GI and Surgery consulted -appreciate input Ongoing refusal of any recommendation continue clear liquid diet Pain control is reasonable Lipase increased to ~4500 Refused IVF and MRCP after a long discussion with him yesterday he said that he will think about the MRCP. he understands the risk for refusing appropriate management such as worsening symptoms and even . received IVF and abx yesterday, but refused at night Today he agreed to start IVF and IV abx again Continue to refuse MRCP lipase slightly trends down refused IVF this morning Acute Schizophrenia Paranoid schizophrenia as per records extreme paranoia prohibiting patient from following medical recommendations (px paranoid about "magnets" for recommended MRCP procedure) Still having paranoia and significant symptoms suggestive of Schizophrenia Psych consulted as per psych no immediate danger to life ,does not require inpatient psychiatry care Low Blood Sugar Blood sugar remains stable Acute Cholecystitis As per [place] LFTs are slightly elevated No Fever/Chills NO increase in [facility] Surgery consulted-appreciate input Repeat LFTs are not elevated Refusing treatment-surgery signed off Hypertension, hx non-compliance Hydralazine PRN Stable Acute renal failure Possible related to medications and clinical dehydration Resolved hx testicular tumor sp surgery No acute symptoms stable Hx DVT not a good candidate for anticoag. 2 to homelessness and noncompliant DVT px On SQ Heparin CODE STATUS Full code. Current Inpatient Medications: Current Inpatient Medications Medications (Trade) Dose Ordered Sig/Marilyn Route Start Time Stop Time Status Last Admin Dose Admin Heparin Sodium (Porcine) (Heparin Sq 5000 Unit/0.5ml) 5,000 unit Q8H SQ 02/07/17 06:00 03/09/17 05:59 Acetaminophen (Tylenol Tab) 650 mg Q4H PRN PO 02/07/17 05:00 03/09/17 04:59 Ondansetron HCl (Zofran Inj) 4 mg Q6H PRN IV 02/07/17 05:00 03/09/17 04:59 02/17/17 09:20 4 MG Clonidine HCl (Szjrnqsw-Xdr-6 0.1mg/24hr Patch) 1 patch Th@1800 TD 02/09/17 18:00 03/11/17 17:59 02/16/17 17:47 1 PATCH Tramadol HCl not relieved by tylenol @ Q6H PRN PO 02/07/17 05:30 03/09/17 05:29 Acetaminophen 650 mg/Empty Bag 65 ml @ 260 mls/hr Q6H PRN IV 02/07/17 05:30 03/09/17 05:29 02/09/17 15:41 260 MLS/HR Lorazepam/Syringe (Ativan Inj/ Syringe) 1 ml @ 1 mls/min Q4H PRN IV 02/07/17 05:30 03/09/17 05:29 02/16/17 03:44 1 MLS/MIN Miscellaneous (Remove Clonidine Patch) 1 ea Th@1759 N/A 02/09/17 17:59 03/11/17 17:58 02/16/17 17:47 1 EA Miscellaneous Information (Check Clonidine Patch Placement) 1 ea QS N/A 02/07/17 08:00 03/09/17 07:59 02/18/17 16:09 1 EA Hydralazine HCl (HydrALAZINE INJ) 10 mg Q4H PRN IV. 02/08/17 20:21 03/10/17 20:20 02/18/17 00:25 10 MG Hydromorphone HCl (Dilaudid Inj) 0.5 mg Q4H PRN IV 02/10/17 21:52 02/24/17 21:51 02/18/17 18:18 0.5 MG Ciprofloxacin 500 mg 500 mg BID PO 02/13/17 21:00 02/23/17 20:59 Future Hold 02/15/17 08:28 500 MG Promethazine HCl/ Sodium Chloride (Phenergan Inj/ Nss 50ml) 50.5 ml @ 204 mls/hr Q6H PRN IV 02/15/17 23:00 03/17/17 22:59 Piperacillin Sod/ Tazobactam Sod 1 ea 1 ea UD PRN N/A 02/16/17 12:45 03/18/17 12:44 Piperacillin Sod/ Tazobactam Sod/ Dextrose (Zosyn Iv/D5 100ml) 115 ml @ 28.75 mls/ hr Q8H IV 02/16/17 20:00 02/26/17 19:59 02/17/17 11:44 28.75 MLS/HR
[2017-02-18 23:45] VITALS: BP 141/80; PULSE 48; TEMP 36.7; O2SAT 95
[2017-02-19] MEDS: CHECK CLONIDINE PATCH PLACEMENT SCH ×3 (00:06→16:00)
[2017-02-19] MEDS: PIPERACILL/TAZOBAC IV 3.375 GM in DEXTROSE 5% 100ML IV SCH ×3 (04:00→21:27)
[2017-02-19] MEDS: HEPARIN SOD 5000 UNIT/0.5 ML CARP SQ SCH ×3 (05:45→21:27)
[2017-02-19 07:15] LABS: HEMATOCRIT 36.9 % (42-52); MEAN CELL VOLUME 80.9 fL (80-100); MEAN CORPUSCULAR HEMOGLOBIN 26.1 pg (25-34); MEAN CORPUSCULAR HGB CONC 32.2 g/dl (32-36); MEAN PLATELET VOLUME 10.3 fL (7.4-10.4); PLATELET COUNT 213 K/uL (130-400); RED BLOOD COUNT 4.56 M/uL (4.7-6.1); WHITE BLOOD COUNT 5.51 K/uL (4.8-10.8)
[2017-02-19 07:26] VITALS: BP 168/86; PULSE 42; TEMP 36.4; O2SAT 97
[2017-02-19 07:35] VITALS: BP 178/98; PULSE 47
[2017-02-19] MEDS: HydrALAZINE HCL 20 MG/ML VIAL IV. PRN (07:44)
[2017-02-19 07:51] LABS: BUN/CREATININE RATIO 24.4 (10-20); CALCIUM 8.9 mg/dl (8.5-10.1); CREATININE 0.84 mg/dl (0.60-1.40); POTASSIUM 3.2 mmol/L (3.5-5.1)
[2017-02-19 08:50] VITALS: BP 125/70; PULSE 42
[2017-02-19] MEDS ORDERED: POTASSIUM CHLORIDE 20 MEQ TABCR PO ONE (10:00)
[2017-02-19] MEDS: SODIUM CHLORIDE 0.9% 1000ML 1,000 ML IV SCH ×2 (11:30→21:27)
[2017-02-19] MEDS ORDERED: NURSING VERBAL MED ORDER ONE (12:30)
[2017-02-19 14:55] VITALS: BP 142/79; PULSE 42; TEMP 36.2; O2SAT 97
--- NOTE | 2017-02-19 16:30 | Progress Note ---
Medicine Progress Note Date & Time of Visit: Feb 19, 2017 at 16:24. Subjective Pt was seen and examined sitting in bed with no distress Pt said that he fees very noxious this morning he is very paranoid and he believes there is someone in his room that trying to contaminated the IVF He would like to try to eat some fruits denies any chest pain, palpitation and sob. Objective Last 8 Hrs Date Time Temp Pulse Resp B/P Pulse Ox O2 Delivery O2 Flow Rate FiO2 02/19/17 14:55 36.2 42 16 142/79 97 Room Air 02/19/17 08:50 42 125/70 Physical Exam: General- No acute distress Head- atraumatic Eyes- PERRL, EOMI ENT- oropharynx clear Neck- supple, no JVD Lungs- no wheezing Heart- regular rhythm Abdomen- normal bowel sounds, soft, +tenderness Extremities- no calf tenderness, B/L LE edema with chronic leg ulcers Neuro- alert, oriented, PERRL, EOMI, paranoid behavior Skin- warm & dry Laboratory Results: Last 24 Hours Test 02/19/17 06:40 White Blood Count 5.51 K/uL Red Blood Count 4.56 M/uL Hemoglobin 11.9 g/dL Hematocrit 36.9 % Mean Corpuscular Volume 80.9 fL Mean Corpuscular Hemoglobin 26.1 pg Mean Corpuscular Hemoglobin Concent 32.2 g/dl RDW Standard Deviation 48.7 fL RDW Coefficient of Variation 16.2 % Platelet Count 213 K/uL Mean Platelet Volume 10.3 fL Sodium Level 144 mmol/L Potassium Level 3.2 mmol/L Chloride Level 107 mmol/L Carbon Dioxide Level 29 mmol/L Anion Gap 8.0 mmol/L Blood Urea Nitrogen 20 mg/dl Creatinine 0.84 mg/dl Est Creatinine Clear Calc Drug Dose 73.6 ml/min Estimated GFR () 107.2 Estimated GFR (Non- 92.5 BUN/Creatinine Ratio 24.4 Random Glucose 101 mg/dl Calcium Level 8.9 mg/dl Lipase 2513 U/L Assessment & Plan Recurrent pancreatitis likely secondary to Gallstone disease Aggressive hydration,pain medication and Antibiotic- Refused IVF possible biliary/pancreatic tumor-refused MRCP during last admission and this admission as well GI and Surgery consulted -appreciate input Ongoing refusal of any recommendation continue clear liquid diet Pain control is reasonable Lipase increased to ~4500 Refused IVF and MRCP after a long discussion with him yesterday he said that he will think about the MRCP. he understands the risk for refusing appropriate management such as worsening symptoms and even . received IVF and abx yesterday, but refused at night Today he agreed to start IVF and IV abx again Continue to refuse MRCP lipase slightly trends down has been refused IVF, hope he will agree to start IVF today If Lipase trending down and pain is reasonably controlled, will consider to discharge Acute Schizophrenia Paranoid schizophrenia as per records extreme paranoia prohibiting patient from following medical recommendations (px paranoid about "magnets" for recommended MRCP procedure) Still having paranoia and significant symptoms suggestive of Schizophrenia Psych consulted as per psych no immediate danger to life ,does not require inpatient psychiatry care Low Blood Sugar Blood sugar remains stable Acute Cholecystitis As per [place] LFTs are slightly elevated No Fever/Chills NO increase in [facility] Surgery consulted-appreciate input Repeat LFTs are not elevated Refusing treatment-surgery signed off Hypokalemia Pt refused potassium He understands the risks by refusing K such as cardiac arrhythmia, and even continue monitor BMP Hypertension hx non-compliance Hydralazine PRN Stable Acute renal failure Possible related to medications and clinical dehydration Resolved hx testicular tumor sp surgery No acute symptoms stable Hx DVT not a good candidate for anticoag. 2 to homelessness and noncompliant DVT px On SQ Heparin CODE STATUS Full code. Current Inpatient Medications: Current Inpatient Medications Medications (Trade) Dose Ordered Sig/Marilyn Route Start Time Stop Time Status Last Admin Dose Admin Heparin Sodium (Porcine) (Heparin Sq 5000 Unit/0.5ml) 5,000 unit Q8H SQ 02/07/17 06:00 03/09/17 05:59 Acetaminophen (Tylenol Tab) 650 mg Q4H PRN PO 02/07/17 05:00 03/09/17 04:59 Ondansetron HCl (Zofran Inj) 4 mg Q6H PRN IV 02/07/17 05:00 03/09/17 04:59 02/17/17 09:20 4 MG Clonidine HCl (Jeldocmn-Yna-9 0.1mg/24hr Patch) 1 patch Th@1800 TD 02/09/17 18:00 03/11/17 17:59 02/16/17 17:47 1 PATCH Tramadol HCl not relieved by tylenol @ Q6H PRN PO 02/07/17 05:30 03/09/17 05:29 Acetaminophen 650 mg/Empty Bag 65 ml @ 260 mls/hr Q6H PRN IV 02/07/17 05:30 03/09/17 05:29 02/09/17 15:41 260 MLS/HR Lorazepam/Syringe (Ativan Inj/ Syringe) 1 ml @ 1 mls/min Q4H PRN IV 02/07/17 05:30 03/09/17 05:29 02/16/17 03:44 1 MLS/MIN Miscellaneous (Remove Clonidine Patch) 1 ea Th@1759 N/A 02/09/17 17:59 03/11/17 17:58 02/16/17 17:47 1 EA Miscellaneous Information (Check Clonidine Patch Placement) 1 ea QS N/A 02/07/17 08:00 03/09/17 07:59 02/19/17 07:40 1 EA Hydralazine HCl (HydrALAZINE INJ) 10 mg Q4H PRN IV. 02/08/17 20:21 03/10/17 20:20 02/19/17 07:44 10 MG Hydromorphone HCl (Dilaudid Inj) 0.5 mg Q4H PRN IV 02/10/17 21:52 02/24/17 21:51 02/18/17 22:39 0.5 MG Ciprofloxacin 500 mg 500 mg BID PO 02/13/17 21:00 02/23/17 20:59 Future Hold 02/15/17 08:28 500 MG Promethazine HCl/ Sodium Chloride (Phenergan Inj/ Nss 50ml) 50.5 ml @ 204 mls/hr Q6H PRN IV 02/15/17 23:00 03/17/17 22:59 Piperacillin Sod/ Tazobactam Sod 1 ea 1 ea UD PRN N/A 02/16/17 12:45 03/18/17 12:44 Piperacillin Sod/ Tazobactam Sod 3.375 gm/Dextrose 115 ml @ 28.75 mls/ hr Q8H IV 02/16/17 20:00 02/26/17 19:59 02/19/17 11:59 28.75 MLS/HR Sodium Chloride (Nss 1000ml) 1,000 ml @ 150 mls/hr Q6H40M IV 02/19/17 12:45 03/21/17 12:44 02/19/17 11:30 150 MLS/HR
[2017-02-19 23:18] VITALS: BP 151/80; PULSE 52; TEMP 36.6; O2SAT 98
[2017-02-20] MEDS: HYDROmorphone INJ 0.5 MG/0.5 ML SYR IV PRN ×3 (00:28→21:42)
[2017-02-20] MEDS: CHECK CLONIDINE PATCH PLACEMENT SCH ×3 (00:29→15:29)
[2017-02-20] MEDS: SODIUM CHLORIDE 0.9% 1000ML 1,000 ML IV SCH ×5 (02:05→22:05)
[2017-02-20] MEDS: PIPERACILL/TAZOBAC IV 3.375 GM in DEXTROSE 5% 100ML IV SCH ×2 (04:00→12:04)
[2017-02-20] MEDS: HEPARIN SOD 5000 UNIT/0.5 ML CARP SQ SCH ×3 (05:46→21:42)
[2017-02-20 07:05] LABS: BASO % 0.4 %; BASO ABS # 0.02 K/uL (0-0.2); COMPLETE YES; HEMATOCRIT 36.5 % (42-52); IG% 0.2 %; LYMPH % 12.2 %; LYMPH ABS # 0.58 K/uL (1.2-3.4); MEAN CELL VOLUME 81.8 fL (80-100); MEAN CORPUSCULAR HEMOGLOBIN 26.7 pg (25-34); MEAN CORPUSCULAR HGB CONC 32.6 g/dl (32-36); MEAN PLATELET VOLUME 10.7 fL (7.4-10.4); MONO % 10.5 %; NEUT % 72.7 %; PLATELET COUNT 199 K/uL (130-400); RED BLOOD COUNT 4.46 M/uL (4.7-6.1); WHITE BLOOD COUNT 4.77 K/uL (4.8-10.8)
[2017-02-20 07:38] VITALS: BP 141/83; PULSE 49; TEMP 36.6; O2SAT 96
[2017-02-20 08:21] LABS: BUN/CREATININE RATIO 20.7 (10-20); CALCIUM 8.6 mg/dl (8.5-10.1); CREATININE 0.9 mg/dl (0.60-1.40)
[2017-02-20 10:19] VITALS: O2SAT 96
[2017-02-20] MEDS: POTASSIUM CHLR 10 MEQ / WTR 10 MEQ in PREMIXED WATER 100 ML IV SCH ×4 (10:44→13:00)
--- NOTE | 2017-02-20 13:44 | Progress Note ---
Medicine Progress Note Date & Time of Visit: Feb 20, 2017 at 13:36. Subjective Pt was seen and examined Sitting in bed with no distress Pt said that he had some food today for breakfast and tolerates it so far He said that he feels his legs are weak he is still very paranoid he has been refused his potassium, IVF and Abx denies any chest pain, palpitation, dizziness and sob Objective Last 8 Hrs Date Time Temp Pulse Resp B/P Pulse Ox O2 Delivery O2 Flow Rate FiO2 02/20/17 10:19 96 Room Air 02/20/17 07:43 Room Air 02/20/17 07:38 36.6 49 20 141/83 96 Room Air Physical Exam: General- No acute distress Head- atraumatic Eyes- PERRL, EOMI ENT- oropharynx clear Neck- supple, no JVD Lungs- no wheezing Heart- regular rhythm Abdomen- normal bowel sounds, soft, +tenderness with palpation Extremities- no calf tenderness, B/L LE edema with chronic leg ulcers Neuro- alert, oriented, PERRL, EOMI, paranoid behavior Skin- warm & dry Laboratory Results: Last 24 Hours Test 02/20/17 06:35 White Blood Count 4.77 K/uL Red Blood Count 4.46 M/uL Hemoglobin 11.9 g/dL Hematocrit 36.5 % Mean Corpuscular Volume 81.8 fL Mean Corpuscular Hemoglobin 26.7 pg Mean Corpuscular Hemoglobin Concent 32.6 g/dl Platelet Count 199 K/uL Mean Platelet Volume 10.7 fL Neutrophils (%) (Auto) 72.7 % Lymphocytes (%) (Auto) 12.2 % Monocytes (%) (Auto) 10.5 % Eosinophils (%) (Auto) 4.0 % Basophils (%) (Auto) 0.4 % Neutrophils # (Auto) 3.47 K/uL Lymphocytes # (Auto) 0.58 K/uL Monocytes # (Auto) 0.50 K/uL Eosinophils # (Auto) 0.19 K/uL Basophils # (Auto) 0.02 K/uL RDW Standard Deviation 49.8 fL RDW Coefficient of Variation 16.4 % Immature Granulocyte % (Auto) 0.2 % Immature Granulocyte # (Auto) 0.01 K/uL Sodium Level 144 mmol/L Potassium Level 3.0 mmol/L Chloride Level 107 mmol/L Carbon Dioxide Level 29 mmol/L Anion Gap 8.0 mmol/L Blood Urea Nitrogen 19 mg/dl Creatinine 0.90 mg/dl Est Creatinine Clear Calc Drug Dose 68.7 ml/min Estimated GFR () 104.2 Estimated GFR (Non- 89.9 BUN/Creatinine Ratio 20.7 Random Glucose 128 mg/dl Calcium Level 8.6 mg/dl Lipase 1205 U/L Assessment & Plan Recurrent pancreatitis likely secondary to Gallstone disease Aggressive hydration,pain medication and Antibiotic- Refused IVF possible biliary/pancreatic tumor-refused MRCP during last admission and this admission as well GI and Surgery consulted -appreciate input Ongoing refusal of any recommendation continue clear liquid diet Pain control is reasonable Lipase increased to ~4500 Refused IVF and MRCP after a long discussion with him yesterday he said that he will think about the MRCP. he understands the risk for refusing appropriate management such as worsening symptoms and even . received IVF and abx yesterday, but refused at night Today he agreed to start IVF and IV abx again Continue to refuse MRCP lipase slightly trends down refused IVF this morning Lipase trending down today Ate eggs for breakfast Still encourage him to get IVF if continue to tolerate diet, will consider to discharge him clinically improved Acute Schizophrenia Paranoid schizophrenia as per records extreme paranoia prohibiting patient from following medical recommendations (px paranoid about "magnets" for recommended MRCP procedure) Still having paranoia and significant symptoms suggestive of Schizophrenia Psych consulted as per psych no immediate danger to life ,does not require inpatient psychiatry care stable Low Blood Sugar Blood sugar remains stable Hypokalemia K 3.0 today Pt refused potassium He understands the risks by refusing K such as cardiac arrhythmia, and even continue monitor BMP Acute Cholecystitis As per [place] LFTs are slightly elevated No Fever/Chills NO increase in [facility] Surgery consulted-appreciate input Repeat LFTs are not elevated Refusing treatment-surgery signed off Hypertension, hx non-compliance Hydralazine PRN Stable Acute renal failure Possible related to medications and clinical dehydration Resolved hx testicular tumor sp surgery No acute symptoms stable Hx DVT not a good candidate for anticoag. 2 to homelessness and noncompliant DVT px On SQ Heparin CODE STATUS Full code. Current Inpatient Medications: Current Inpatient Medications Medications (Trade) Dose Ordered Sig/Marilyn Route Start Time Stop Time Status Last Admin Dose Admin Heparin Sodium (Porcine) (Heparin Sq 5000 Unit/0.5ml) 5,000 unit Q8H SQ 3/21/17 06:00 03/09/17 05:59 Acetaminophen (Tylenol Tab) 650 mg Q4H PRN PO 02/07/17 05:00 03/09/17 04:59 Ondansetron HCl (Zofran Inj) 4 mg Q6H PRN IV 02/07/17 05:00 03/09/17 04:59 02/17/17 09:20 4 MG Clonidine HCl (Dogtqmlr-Aic-9 0.1mg/24hr Patch) 1 patch Th@1800 TD 02/09/17 18:00 03/11/17 17:59 02/16/17 17:47 1 PATCH Tramadol HCl not relieved by tylenol @ Q6H PRN PO 02/07/17 05:30 03/09/17 05:29 Acetaminophen 650 mg/Empty Bag 65 ml @ 260 mls/hr Q6H PRN IV 02/07/17 05:30 03/09/17 05:29 02/09/17 15:41 260 MLS/HR Lorazepam/Syringe (Ativan Inj/ Syringe) 1 ml @ 1 mls/min Q4H PRN IV 02/07/17 05:30 03/09/17 05:29 02/16/17 03:44 1 MLS/MIN Miscellaneous (Remove Clonidine Patch) 1 ea Th@1759 N/A 02/09/17 17:59 03/11/17 17:58 02/16/17 17:47 1 EA Miscellaneous Information (Check Clonidine Patch Placement) 1 ea QS N/A 02/07/17 08:00 03/09/17 07:59 02/20/17 07:26 1 EA Hydralazine HCl (HydrALAZINE INJ) 10 mg Q4H PRN IV. 02/08/17 20:21 03/10/17 20:20 02/19/17 07:44 10 MG Hydromorphone HCl (Dilaudid Inj) 0.5 mg Q4H PRN IV 02/10/17 21:52 02/24/17 21:51 02/20/17 00:28 0.5 MG Ciprofloxacin 500 mg 500 mg BID PO 02/13/17 21:00 02/23/17 20:59 Future Hold 02/15/17 08:28 500 MG Promethazine HCl 12.5 mg/Sodium Chloride 50.5 ml @ 204 mls/hr Q6H PRN IV 02/15/17 23:00 03/17/17 22:59 Sodium Chloride 1,000 ml @ 150 mls/hr Q6H40M IV 02/19/17 12:45 03/21/17 12:44 02/20/17 10:44 150 MLS/HR Potassium Chloride/Prmx (Kcl 10 Meq / Wtr/Premixed Water) 100 ml @ 100 mls/hr Q1H IV 02/20/17 10:00 02/20/17 13:59
[2017-02-20 14:33] VITALS: BP 122/90
[2017-02-20 15:28] VITALS: BP 167/95; PULSE 53; TEMP 36.9; O2SAT 97
[2017-02-20] MEDS: HydrALAZINE HCL 20 MG/ML VIAL IV. PRN (15:54)
[2017-02-20 20:52] VITALS: BP 160/87
[2017-02-20 23:26] VITALS: BP 139/81; PULSE 56; TEMP 36.6; O2SAT 98
[2017-02-21] MEDS: CHECK CLONIDINE PATCH PLACEMENT SCH ×3 (00:05→15:46)
[2017-02-21] MEDS: SODIUM CHLORIDE 0.9% 1000ML 1,000 ML IV SCH ×3 (04:34→18:10)
[2017-02-21] MEDS: HEPARIN SOD 5000 UNIT/0.5 ML CARP SQ SCH ×3 (05:17→21:43)
[2017-02-21 07:25] VITALS: BP 160/81; PULSE 49; TEMP 36.4; O2SAT 97
[2017-02-21] MEDS: HYDROmorphone INJ 0.5 MG/0.5 ML SYR IV PRN ×3 (08:47→21:43)
[2017-02-21] MEDS: ONDANSETRON INJ 2 MG/ML 2 ML VIAL IV PRN (08:47)
[2017-02-21 09:06] LABS: BUN/CREATININE RATIO 20.5 (10-20); CALCIUM 8.7 mg/dl (8.5-10.1); CREATININE 0.77 mg/dl (0.60-1.40)
[2017-02-21 09:21] VITALS: BP 185/96; PULSE 49
[2017-02-21] MEDS: HydrALAZINE HCL 20 MG/ML VIAL IV. PRN (09:58)
[2017-02-21 10:59] VITALS: BP 154/74; PULSE 49
[2017-02-21] MEDS ORDERED: POTASSIUM CHLORIDE INJ 40 MEQ in SODIUM CHLORIDE 0.9% 1000ML 1,000 ML IV SCH (11:00)
--- NOTE | 2017-02-21 13:04 | Progress Note ---
Medicine Progress Note Date & Time of Visit: Feb 21, 2017 at 12:41. Subjective Pt was seen and examined Sitting in bed with no distress Pt said that this morning his abdomen hurts and he is having nausea He said that he stopped the IVF about 1 AM today when he was getting ready to fall asleep because he has to be awake to watch the IVF since there is someone in the room that keeps contaminating the IVF Pt said that he wants a new bag of IVF because the one that is hanging now has someone sitting inside the bag of the IVF He is very paranoid and continue to refuse IVF (except when he is awake now) and MRCP He said that he is feeling weak because he has not been able to eat much Denies any fever, vomiting, chest pain and palpitation Objective Last 8 Hrs Date Time Temp Pulse Resp B/P Pulse Ox O2 Delivery O2 Flow Rate FiO2 02/21/17 10:59 49 154/74 02/21/17 09:21 49 185/96 02/21/17 07:48 Room Air 02/21/17 07:25 36.4 49 16 160/81 97 Room Air Physical Exam: General- No acute distress Head- atraumatic Eyes- PERRL, EOMI ENT- oropharynx clear Neck- supple, no JVD Lungs- no wheezing Heart- regular rhythm Abdomen- normal bowel sounds, soft, +tenderness with palpation Extremities- no calf tenderness, B/L LE edema with chronic leg ulcers Neuro- alert, oriented, PERRL, EOMI, paranoid behavior Skin- warm & dry Laboratory Results: Last 24 Hours Test 02/21/17 08:20 Sodium Level 142 mmol/L Potassium Level 3.0 mmol/L Chloride Level 108 mmol/L Carbon Dioxide Level 26 mmol/L Anion Gap 8.0 mmol/L Blood Urea Nitrogen 16 mg/dl Creatinine 0.77 mg/dl Est Creatinine Clear Calc Drug Dose 80.3 ml/min Estimated GFR () 111.2 Estimated GFR (Non- 95.9 BUN/Creatinine Ratio 20.5 Random Glucose 106 mg/dl Calcium Level 8.7 mg/dl Lipase 3340 U/L Assessment & Plan Recurrent pancreatitis likely secondary to Gallstone disease Aggressive hydration,pain medication and Antibiotic- Refused IVF possible biliary/pancreatic tumor-refused MRCP during last admission and this admission as well GI and Surgery consulted -appreciate input Ongoing refusal of any recommendation continue clear liquid diet Pain control is reasonable Lipase increased to ~4500 Refused IVF and MRCP after a long discussion with him yesterday he said that he will think about the MRCP. he understands the risk for refusing appropriate management such as worsening symptoms and even . received IVF and abx yesterday, but refused at night Today he agreed to start IVF and IV abx again Continue to refuse MRCP lipase slightly trends down refused IVF this morning Lipase trending down today Ate eggs for breakfast Still encourage him to get IVF if continue to tolerate diet, will consider to discharge him clinically improved 02/21/17 Abdominal pain worst today compared to yesterday associated with nausea Lipase increased to 3340 today Continue refusing IVF fluid, but agreed today to start IVF while he is awake that he can watch the IVF bag Continue refusing MRCP Will change diet to clear liquid continue monitor Acute Schizophrenia Paranoid schizophrenia as per records extreme paranoia prohibiting patient from following medical recommendations (px paranoid about "magnets" for recommended MRCP procedure) Still having paranoia and significant symptoms suggestive of Schizophrenia Psych consulted as per psych no immediate danger to life ,does not require inpatient psychiatry care Very paranoid that prevents pt to accept appropriate medical management Low Blood Sugar Blood sugar remains stable Hypokalemia K 3.0 today Continue refusing potassium He understands the risks by refusing K such as cardiac arrhythmia, and even Will add Potassium 40meq in the IVFx1 bag continue monitor BMP Generalized Weakness Possible related to poor intake Continue PT/OT Acute Cholecystitis As per US LFTs are slightly elevated No Fever/Chills NO increase in WCC Surgery consulted-appreciate input Repeat LFTs are not elevated Refusing treatment-surgery signed off Hypertension, hx non-compliance BP elevated Resume lisinopril 30mg Hydralazine PRN Stable Acute renal failure Possible related to medications and clinical dehydration Resolved hx testicular tumor sp surgery No acute symptoms stable Hx DVT not a good candidate for anticoag due to homelessness and noncompliant DVT px On SQ Heparin CODE STATUS Full code. Current Inpatient Medications: Current Inpatient Medications Medications (Trade) Dose Ordered Sig/Marilyn Route Start Time Stop Time Status Last Admin Dose Admin Heparin Sodium (Porcine) (Heparin Sq 5000 Unit/0.5ml) 5,000 unit Q8H SQ 02/07/17 06:00 03/09/17 05:59 Acetaminophen (Tylenol Tab) 650 mg Q4H PRN PO 02/07/17 05:00 03/09/17 04:59 Ondansetron HCl (Zofran Inj) 4 mg Q6H PRN IV 02/07/17 05:00 03/09/17 04:59 02/21/17 08:47 4 MG Clonidine HCl (Tihvwhah-Qzs-4 0.1mg/24hr Patch) 1 patch Th@1800 TD 02/09/17 18:00 03/11/17 17:59 02/16/17 17:47 1 PATCH Tramadol HCl not relieved by tylenol @ Q6H PRN PO 02/07/17 05:30 03/09/17 05:29 Acetaminophen 650 mg/Empty Bag 65 ml @ 260 mls/hr Q6H PRN IV 02/07/17 05:30 03/09/17 05:29 02/09/17 15:41 260 MLS/HR Lorazepam/Syringe (Ativan Inj/ Syringe) 1 ml @ 1 mls/min Q4H PRN IV 02/07/17 05:30 03/09/17 05:29 02/16/17 03:44 1 MLS/MIN Miscellaneous (Remove Clonidine Patch) 1 ea Th@1759 N/A 02/09/17 17:59 03/11/17 17:58 02/16/17 17:47 1 EA Miscellaneous Information (Check Clonidine Patch Placement) 1 ea QS N/A 02/07/17 08:00 03/09/17 07:59 02/21/17 07:57 1 EA Hydralazine HCl (HydrALAZINE INJ) 10 mg Q4H PRN IV. 02/08/17 20:21 03/10/17 20:20 02/21/17 09:58 10 MG Hydromorphone HCl (Dilaudid Inj) 0.5 mg Q4H PRN IV 02/10/17 21:52 02/24/17 21:51 02/21/17 08:47 0.5 MG Ciprofloxacin 500 mg 500 mg BID PO 02/13/17 21:00 02/23/17 20:59 Future Hold 02/15/17 08:28 500 MG Promethazine HCl 12.5 mg/Sodium Chloride 50.5 ml @ 204 mls/hr Q6H PRN IV 02/15/17 23:00 03/17/17 22:59 Sodium Chloride 1,000 ml @ 150 mls/hr Q6H40M IV 02/19/17 12:45 03/21/17 12:44 02/20/17 15:12 150 MLS/HR Potassium Chloride/Sodium Chloride (KCl Inj/Nss 1000ml) 1,020 ml @ 150 mls/hr Q6H48M IV 02/21/17 11:00 02/21/17 17:47 02/21/17 11:09 150 MLS/HR
[2017-02-21 15:07] VITALS: BP 134/85; PULSE 53; TEMP 36.6; O2SAT 95
[2017-02-21 23:01] VITALS: BP 138/81; PULSE 54; TEMP 36.9; O2SAT 95
[2017-02-22] MEDS: CHECK CLONIDINE PATCH PLACEMENT SCH ×3 (00:09→16:00)
[2017-02-22] MEDS: SODIUM CHLORIDE 0.9% 1000ML 1,000 ML IV SCH ×4 (00:16→21:10)
[2017-02-22] MEDS: HEPARIN SOD 5000 UNIT/0.5 ML CARP SQ SCH ×3 (05:34→21:10)
[2017-02-22 07:07] VITALS: BP 183/99; PULSE 54; TEMP 36.3; O2SAT 97
[2017-02-22 08:55] LABS: BUN/CREATININE RATIO 16.8 (10-20); CALCIUM 8.6 mg/dl (8.5-10.1); CREATININE 0.81 mg/dl (0.60-1.40); PHOSPHORUS 2.5 mg/dl (2.5-4.9); POTASSIUM 3.6 mmol/L (3.5-5.1)
[2017-02-22] MEDS: TRAMADOL HCL 50 MG TAB PO PRN (09:45)
[2017-02-22] MEDS: LISINOPRIL 10 MG TAB PO SCH (09:46)
[2017-02-22 13:21] VITALS: BP 170/102; PULSE 70
[2017-02-22] MEDS: HYDROmorphone INJ 0.5 MG/0.5 ML SYR IV PRN (13:27)
[2017-02-22] MEDS: HydrALAZINE HCL 20 MG/ML VIAL IV. PRN (13:27)
[2017-02-22 15:33] VITALS: BP 145/86; PULSE 64; TEMP 36.4; O2SAT 99
--- NOTE | 2017-02-22 16:58 | Progress Note ---
Internal Med Progress Note Date of Service: Feb 22, 2017. Provider Documentation: SUBJECTIVE: Patient is demanding his pain medications. Says he cannot eat without his pain medications. Abdominal pain + nausea + but no vomiting. No fever, chillls OBJECTIVE: Vital Signs-as noted below Exam: General-AAOX3, no distress Eyes-No icterus Neck-Supple Lungs-AEBE, no wheezing, rhonchi Heart-S1, S2 normal, no murmurs Abdomen-Soft, tenderness +, BS present Extremities-B/L LE edema with chronic leg ulcers Lab data as noted below. ASSESSMENT & PLAN: RECURRENT PANCREATITIS LIKELY SECONDARY TO GALL STONE Patient has been in and out of hospital multiple times for the same reason. Refuses tests, IV fluids and only thing he takes on a regular basis is his pain medications- IV Dilaudid PRN, but takes it as scheduled. -Lipase has been up -Refused MRCP and any tests during last admissions and this admission -Ongoing refusal of any type of recommendations - IVF/Antibiotics -S/P GI/Surgery consults. ACUTE CHOLECYSTITIS - As per US LFTs are slightly elevated--> LFTs repeat - not elevated No Fever/Chills; NO increase in WCC -Surgery consulted-appreciate input -Refusing treatment-surgery signed off ACUTE SCHIZOPHRENIA- Paranoid schizophrenia as per records Extreme paranoia prohibiting patient from following medical recommendations (px paranoid about "magnets" for recommended MRCP procedure) -Psych consulted - as per psych no immediate danger to life ,does not require inpatient psychiatry care HYPOGLYCEMIA -Blood sugar remains stable HYPOKALEMIA- Resolved -Had been refusing potassium supplementation too -He understands the risks by refusing K such as cardiac arrhythmia, and even HTN- hx non-compliance BP elevated -Resumed lisinopril 30mg -Hydralazine PRN LAUREN - Resolved -Possible related to medications and clinical dehydration HX OF TESTICULAR TUMOR S/P SURGERY -No acute symptoms stable Hx DVT not a good candidate for anticoag due to homelessness and noncompliant DVT px On SQ Heparin CODE STATUS Full code. DISPOSITION To be determined Non compliant with medications, tests - refuses to follow recommendations, but at the same time refusing to be discharged from hospital. Vital Signs: Date Time Temp Pulse Resp B/P Pulse Ox O2 Delivery O2 Flow Rate FiO2 02/22/17 15:33 36.4 64 19 145/86 99 Room Air 02/22/17 13:21 70 170/102 02/22/17 08:30 Room Air 02/22/17 07:07 36.3 54 16 183/99 97 Room Air 02/21/17 23:20 Room Air 02/21/17 23:01 36.9 54 18 138/81 95 Room Air Lab Results: Results Past 24 Hours Test 02/22/17 07:50 Range/Units Sodium Level 144 136-145 mmol/L Potassium Level 3.6 3.5-5.1 mmol/L Chloride Level 112 98-107 mmol/L Carbon Dioxide Level 25 21-32 mmol/L Anion Gap 7.0 3-11 mmol/L Blood Urea Nitrogen 14 7-18 mg/dl Creatinine 0.81 0.60-1.40 mg/dl Est Creatinine Clear Calc Drug Dose 76.4 ml/min Estimated GFR () 108.9 Estimated GFR (Non- 93.9 BUN/Creatinine Ratio 16.8 10-20 Random Glucose 107 70-99 mg/dl Calcium Level 8.6 8.5-10.1 mg/dl Phosphorus Level 2.5 2.5-4.9 mg/dl Lipase 3085 73-393 U/L
[2017-02-22] MEDS: MoRPHine SULFATE 2 MG/ML CARP IV PRN (19:28)
[2017-02-22 22:52] VITALS: BP 132/78; PULSE 81; TEMP 36.6; O2SAT 98
[2017-02-23] MEDS: CHECK CLONIDINE PATCH PLACEMENT SCH ×3 (00:17→16:00)
[2017-02-23] MEDS: MoRPHine SULFATE 2 MG/ML CARP IV PRN ×3 (01:45→20:28)
[2017-02-23] MEDS: ONDANSETRON INJ 2 MG/ML 2 ML VIAL IV PRN ×2 (01:45→07:52)
[2017-02-23] MEDS: SODIUM CHLORIDE 0.9% 1000ML 1,000 ML IV SCH ×5 (03:25→20:26)
[2017-02-23] MEDS: HEPARIN SOD 5000 UNIT/0.5 ML CARP SQ SCH ×3 (05:33→20:42)
[2017-02-23 07:37] VITALS: BP 190/98; PULSE 69; TEMP 36.6; O2SAT 97
[2017-02-23] MEDS: HydrALAZINE HCL 20 MG/ML VIAL IV. PRN (07:52)
[2017-02-23] MEDS: LISINOPRIL 10 MG TAB PO SCH (10:50)
--- NOTE | 2017-02-23 10:56 | Psychiatric Progress Notes ---
Psychiatric Progress Note Date of Service Feb 23, 2017. Notes 66-year-old single white male with a history of schizophrenia, pancreatitis, and multiple medical problems who is admitted to the hospitalist service with pancreatitis. Psychiatry has been following him and has done multiple capacity assessments during his past 2 admissions. He was seen today in follow-up, and the case discussed with the primary attending, Dr. Vora. Chief complaint: "I almost went nuts with the pain this morning." Interval history: The patient has been seen by myself and our medical surgery nurse, Dr. lrason, on multiple occasions during this admission and a previous medical admission last month. He has been admitted to our facility medically multiple times, and has always refused recommendations for mental health treatment, including psychotropic medications or outpatient follow-up. He has been homeless for years, preferring to live on the streets rather than in a residential or public housing. He has a long-standing discharge of medicines and often refuses the recommended medical studies and procedures. He was seen on 2016 and was found to have capacity to decline an MRCP to further evaluate causes of his pancreatitis. He was seen again on 01/28/2017, at which time there was no indication for inpatient psychiatric hospitalization and he was declining follow-up care. He was seen by the undersigned on 02/13/2017, continued to refuse antipsychotic medications or outpatient psychiatric follow- up, and did not meet criteria for involuntary psychiatric commitment. He was seen on 02/17/[address] larson, who agreed with the recommendations in the initial consult several days prior. Since that time, I've reviewed his case with Dr. larson and with the primary attending Dr. Vora. He continues to except only certain treatment recommendations, for example is refusing further workup such as MRCP, and refusing surgery (cholecystectomy), stating that he does not think either of these things will help his pain. He at times except IV fluids, but at other times refuses, and does not always willing to follow the recommended diet, at times requesting to eat, although he will then become nauseated and vomit. He has been accepting of pain medications, and at times is angry if he is not given the pain medications he desires. The option of transferring him to a mcc or longterm facility have been discussed, and although at times he will agree, at other times he refuses. On my assessment, the patient states that he was upset this morning because he was vomiting and had abdominal pain, but has now "calm down." He states he is not interested in pursuing endoscopy for MRI, stating that he thinks it will make him feel worse and does not think these studies will help him, stating he has had an endoscopy before, and it did not help him. He is able to state the risks of refusing them, including worsening pain and pancreatitis. He states he doesn't want his gallbladder removed, as he doesn't want surgery, and again does not think that this will help his pain and may actually cause more pain in the short-term. He notes that he doesn't trust director of medical education or the medical field in general due to his past experiences. He wants to stay in the hospital until he can eat and get stronger, stating that he doesn't think he could return to his previous lifestyle of living on the streets in his current condition. He becomes irritable when asked what he is willing to do at this point, as he cannot stay in the hospital indefinitely, and his pancreatitis may take some time to resolve, and may not resolve if he is not willing to except the recommended treatment. He ultimately states that he would be willing to go to [facility] or some other local nursing facility, but does not want to go out of the area, as he would have no way to get back if and when he is discharged. He denies symptoms of depression, anxiety, hallucinations, and jasmine paranoia. He denies suicidality and homicidality. Review of systems: Positive for abdominal pain, nausea, and weight loss. 10 systems reviewed, and others are negative except as stated above. Thin white male appearing older than his stated age. Estimate hospital gown, lying in bed in no acute distress, with long white hair and lim. Poor dentition, adequate hygiene. Irritable at times, but cooperative with assessment. Eying in bed in NAD, with fair eye contact and no abnormal movements. Speech is normal rate, volume, and tone, at times gets irritable and voices louder. Mood is "the pain was bad this morning," and affect is congruent. Thoughts are goal directed. The patient denied suicidal and homicidal ideation. Denies paranoia and hallucinations, and did not appear to be responding to internal stimuli. No jasmine delusions expressed, but there is an underlying theme of paranoia about medical treatments and procedures, with significant concern about potential negative consequences or side effects. Cognition is grossly intact. Alert and oriented to person, place and time. Intelligence is stated to be average. Insight and judgment are impaired. Diagnosis: Chronic schizophrenia, pancreatitis Recommendations: 1. Schizophrenia: Patient continues to refuse antipsychotic medications and outpatient psychiatric follow-up. He does not meet criteria for inpatient psychiatric treatment nor involuntary commitment, as he is not at imminent risk of , disability, or serious injury as a direct result of his mental illness. 2. Noncompliance with treatment: The patient has had many medical admissions, and often directs his own treatment, picking and choosing which interventions he will accept. This is in part driven by his long-standing distrust of the medical community, and his schizophrenia may certainly play a role in this. It is also evident in his long-standing choice to live his life is a homeless individual on the street, being unwilling to accept social supports in the community. He now has pancreatitis, and has been unwilling to follow many of the recommendations about treating this, for example insisting on eating when he cannot tolerate it, which results in worsening abdominal pain and vomiting, and only occasionally excepting IV fluids. He is not interested in pursuing further imaging or surgery, and I believe he has the capacity to refuse these interventions, as he understands the risks of doing so and the choice, while not what many of us would choose, is consistent with his beliefs, and these are long-standing. With respect to the next steps in his treatment, he indicates a preference to remain in the hospital, but a willingness to consider a mcc placement if that is what is medically recommended by the primary team. If he is accepted to a mcc and is then unwilling to go, we will need to revisit the question of whether he has the capacity to refuse placement, and if he does, and alternative decision maker will need to be appointed.
--- NOTE | 2017-02-23 12:48 | Progress Note ---
Internal Med Progress Note Date of Service: Feb 23, 2017. Provider Documentation: SUBJECTIVE: Patient had an episode of vomiting in AM. On my evaluation, he is demanding his pain medications and just upset about it. Explained to him about changing diet to clear liquids - very upset about it. Abdominal pain + nausea + but no vomiting, fever, chills. No fever, chills OBJECTIVE: Vital Signs-as noted below Exam: General-AAOX3, no distress Eyes-No icterus Neck-Supple Lungs-AEBE, no wheezing, rhonchi Heart-S1, S2 normal, no murmurs Abdomen-Soft, tenderness +, BS present Extremities-B/L LE edema with chronic leg ulcers Lab data as noted below. ASSESSMENT & PLAN: RECURRENT PANCREATITIS LIKELY SECONDARY TO GALL STONE : Patient has been in and out of hospital multiple times for the same reason. Refuses tests, IV fluids and only thing he takes on a regular basis is his pain medications- IV Dilaudid PRN, but takes it as scheduled. Has had elevated Lipase , LFTS - obstructive pattern with ALP in 500s for the past few admissions. US this admission does show acute cholecystitis, Intra/extra hepatic duct, pancreatic duct dilation, Cholelithiasis. Has refused Imaging- MRCP, Procedures like ERCP and even surgery in past including this admission -As had vomiting today, worsening abdominal pain with elevated lipase, recommend continuation of IV fluids, Diet --change to Clear liquids, Pain medication- IV Morphine q 6 hours PRN -However, he does refuse to take IVF, upset about clear liquid diet. Explained him with his current medical condition, this would be the appropriate diet. -Ongoing refusal of any type of recommendations. -S/P GI/Surgery consults. ACUTE CHOLECYSTITIS - As per US LFTs are elevated including ALP No Fever/Chills; NO increase in WCC -Surgery consulted-appreciate input. Signed off as refused treatment ACUTE SCHIZOPHRENIA- Paranoid schizophrenia as per records Extreme paranoia prohibiting patient from following medical recommendations (px paranoid about "magnets" for recommended MRCP procedure) -Psych consulted - as per psych no immediate danger to life , does not require inpatient psychiatry care HYPOGLYCEMIA -Blood sugar remains stable HYPOKALEMIA- Resolved -Had been refusing potassium supplementation too -He understands the risks by refusing K such as cardiac arrhythmia, and even HTN- hx non-compliance BP elevated -Resumed lisinopril 30mg -Hydralazine PRN LAUREN - Resolved -Possible related to medications and clinical dehydration HX OF TESTICULAR TUMOR S/P SURGERY -No acute symptoms stable Hx DVT not a good candidate for anticoag due to homelessness and noncompliant DVT px On SQ Heparin CODE STATUS Full code. DISPOSITION To be determined Non compliant with medications, tests - refuses to follow recommendations, but at the same time refusing to be discharged from hospital or go to the rehab Vital Signs: Date Time Temp Pulse Resp B/P Pulse Ox O2 Delivery O2 Flow Rate FiO2 02/23/17 07:40 Room Air 02/23/17 07:37 36.6 69 18 190/98 97 Room Air 02/23/17 00:20 Room Air 02/22/17 22:52 36.6 81 18 132/78 98 Room Air 02/22/17 16:15 Room Air 02/22/17 15:33 36.4 64 19 145/86 99 Room Air 02/22/17 13:21 70 170/102
[2017-02-23 15:07] VITALS: BP 143/93; PULSE 60; TEMP 36.9; O2SAT 97
[2017-02-23] MEDS: CLONIDINE HCL 0.1 MG/24 HR TRANSDERM SYS TD SCH (18:28)
[2017-02-23 23:05] VITALS: BP 188/90; PULSE 65; TEMP 36.7; O2SAT 97
[2017-02-24] VITALS (7 sets, daily range): BP systolic 150–179; BP diastolic 66–98; PULSE 50–59; TEMP 36.6–36.9; O2SAT 94–97
[2017-02-24] MEDS: CHECK CLONIDINE PATCH PLACEMENT SCH ×4 (00:01→23:21)
[2017-02-24] MEDS: MoRPHine SULFATE 2 MG/ML CARP IV PRN ×2 (05:53→20:24)
[2017-02-24] MEDS: HEPARIN SOD 5000 UNIT/0.5 ML CARP SQ SCH ×3 (05:59→19:52)
[2017-02-24] MEDS: SODIUM CHLORIDE 0.9% 1000ML 1,000 ML IV SCH ×3 (06:05→17:42)
[2017-02-24 08:07] LABS: HEMATOCRIT 36.7 % (42-52); MEAN CORPUSCULAR HEMOGLOBIN 27.2 pg (25-34); MEAN CORPUSCULAR HGB CONC 33.5 g/dl (32-36); MEAN PLATELET VOLUME 10.4 fL (7.4-10.4); PLATELET COUNT 207 K/uL (130-400); RED BLOOD COUNT 4.53 M/uL (4.7-6.1); WHITE BLOOD COUNT 4.93 K/uL (4.8-10.8)
[2017-02-24 08:45] LABS: BUN/CREATININE RATIO 19.3 (10-20); CALCIUM 9.2 mg/dl (8.5-10.1); CREATININE 0.87 mg/dl (0.60-1.40); POTASSIUM 3.3 mmol/L (3.5-5.1)
[2017-02-24 08:47] LABS: ALB/GLOB RATIO 0.8 (0.9-2)
[2017-02-24] MEDS: LISINOPRIL 10 MG TAB PO SCH (08:51)
--- NOTE | 2017-02-24 15:50 | Progress Note ---
Internal Med Progress Note Date of Service: Feb 24, 2017. Provider Documentation: SUBJECTIVE: Patient had vomiting x 1 episode today. Abdominal pain + Upset about being on clear liquid diet and negotiating for more food. No fever, chills. OBJECTIVE: Vital Signs-as noted below Exam: General-AAOX3, no distress Eyes-No icterus Neck-Supple Lungs-AEBE, no wheezing, rhonchi Heart-S1, S2 normal, no murmurs Abdomen-Soft, tenderness +, BS present Extremities-B/L LE edema with chronic leg ulcers Lab data as noted below. ASSESSMENT & PLAN: RECURRENT PANCREATITIS LIKELY SECONDARY TO GALL STONE : Patient has been in and out of hospital multiple times for the same reason. Refuses tests, IV fluids and only thing he takes on a regular basis is his pain medications- IV Dilaudid PRN, but takes it as scheduled. Has had elevated Lipase , LFTS - obstructive pattern with ALP in 500s for the past few admissions. US this admission does show acute cholecystitis, Intra/extra hepatic duct, pancreatic duct dilation, Cholelithiasis. Has refused Imaging- MRCP, Procedures like ERCP and even surgery in past including this admission. -Had a small vomitus today, abdominal pain + , recommend continuation of IV fluids, Diet -- Clear liquids, Pain medication- IV Morphine q 6 hours PRN -However, he does refuse to take IVF, upset about clear liquid diet. Explained him with his current medical condition, this would be the appropriate diet. -Ongoing refusal of any type of recommendations. -S/P GI/Surgery consults. ACUTE CHOLECYSTITIS - As per US LFTs are elevated including ALP No Fever/Chills; NO increase in WCC -Surgery consulted-appreciate input. Signed off as refused treatment HYPOKALEMIA -K ordered ACUTE SCHIZOPHRENIA- Paranoid schizophrenia as per records Extreme paranoia prohibiting patient from following medical recommendations (px paranoid about "magnets" for recommended MRCP procedure) -Psych consulted - as per psych no immediate danger to life , does not require inpatient psychiatry care HYPOGLYCEMIA -Blood sugar remains stable HYPOKALEMIA- Resolved -Had been refusing potassium supplementation too -He understands the risks by refusing K such as cardiac arrhythmia, and even HTN- hx non-compliance BP elevated -Resumed lisinopril 30mg -Hydralazine PRN LAUREN - Resolved -Possible related to medications and clinical dehydration HX OF TESTICULAR TUMOR S/P SURGERY -No acute symptoms stable Hx DVT not a good candidate for anticoag due to homelessness and noncompliant DVT px On SQ Heparin CODE STATUS Full code. DISPOSITION To be determined Non compliant with medications, tests - refuses to follow recommendations, but at the same time refusing to be discharged from hospital or go to the rehab Vital Signs: Date Time Temp Pulse Resp B/P Pulse Ox O2 Delivery O2 Flow Rate FiO2 02/24/17 15:00 36.6 50 16 179/98 97 Room Air 02/24/17 07:58 36.7 59 18 152/66 95 Room Air 02/24/17 07:30 Room Air 02/24/17 00:58 157/89 02/24/17 00:00 Room Air 02/23/17 23:05 36.7 65 18 188/90 97 Room Air 02/23/17 16:39 Room Air Lab Results: Results Past 24 Hours Test 02/24/17 07:47 Range/Units White Blood Count 4.93 4.8-10.8 K/uL Red Blood Count 4.53 4.7-6.1 M/uL Hemoglobin 12.3 14.0-18.0 g/dL Hematocrit 36.7 42-52 % Mean Corpuscular Volume 81.0 80-100 fL Mean Corpuscular Hemoglobin 27.2 25-34 pg Mean Corpuscular Hemoglobin Concent 33.5 32-36 g/dl RDW Standard Deviation 50.1 36.4-46.3 fL RDW Coefficient of Variation 16.8 11.5-14.5 % Platelet Count 207 130-400 K/uL Mean Platelet Volume 10.4 7.4-10.4 fL Sodium Level 145 136-145 mmol/L Potassium Level 3.3 3.5-5.1 mmol/L Chloride Level 108 98-107 mmol/L Carbon Dioxide Level 25 21-32 mmol/L Anion Gap 12.0 3-11 mmol/L Blood Urea Nitrogen 17 7-18 mg/dl Creatinine 0.87 0.60-1.40 mg/dl Est Creatinine Clear Calc Drug Dose 71.1 ml/min Estimated GFR () 105.7 Estimated GFR (Non- 91.2 BUN/Creatinine Ratio 19.3 10-20 Random Glucose 78 70-99 mg/dl Calcium Level 9.2 8.5-10.1 mg/dl Total Bilirubin 6.0 0.2-1 mg/dl Aspartate Amino Transf (AST/SGOT) 125 15-37 U/L Alanine Aminotransferase (ALT/SGPT) 115 12-78 U/L Alkaline Phosphatase 579 45-117 U/L Total Protein 6.2 6.4-8.2 gm/dl Albumin 2.8 3.4-5.0 gm/dl Globulin 3.4 2.5-4.0 gm/dl Albumin/Globulin Ratio 0.8 0.9-2 Lipase 2643 73-393 U/L
[2017-02-24] MEDS: HydrALAZINE HCL 20 MG/ML VIAL IV. PRN ×3 (15:54→23:25)
--- NOTE | 2017-02-24 17:18 | Psychiatric Progress Notes ---
Psychiatric Progress Note Date of Service Feb 24, 2017. Notes ID: Patient reviewed with liaison nurse. Interim progress reviewed. Ongoing case discussions with Dr. Davies, Dedra Menjivar, RN and today [employer] rep again. CC: complaints about clear diet HPI: patient reports he is essentially unchanged, wishes he could get better food but aware of medical recs re: pancreatitis, states that he would be willing to go to recommended level of nursing care for additional support around nutrition and monitoring. ROS: nausea/pain MSE: alert, cooperative, affect pleasant, thoughts concrete but oriented, denies SI/HI/badillo. No delusions reported Imp: hx of paranoia, minimal psych records Plan: [facility] arranging for neuropsych assessment for more detailed assessment of thought processing and determine if meets criteria for a cognitive disorder around which they would intervene does not meet criteria for inpatient psychiatric hospitalization and there is no active delirium or acute psychosis interfering with his decision making currently states he would agree to nursing facility
[2017-02-24] MEDS ORDERED: POTASSIUM CHLORIDE 20 MEQ TABCR PO ONE (18:00)
[2017-02-25 00:17] VITALS: BP 141/71
[2017-02-25] MEDS: SODIUM CHLORIDE 0.9% 1000ML 1,000 ML IV SCH ×4 (02:05→22:05)
[2017-02-25] MEDS: HEPARIN SOD 5000 UNIT/0.5 ML CARP SQ SCH ×3 (04:39→21:24)
[2017-02-25] MEDS: CHECK CLONIDINE PATCH PLACEMENT SCH ×3 (07:21→23:49)
[2017-02-25] MEDS: HydrALAZINE HCL 20 MG/ML VIAL IV. PRN ×2 (07:21→15:47)
[2017-02-25 07:36] VITALS: BP 181/87; PULSE 47; TEMP 36.4; O2SAT 96
[2017-02-25] MEDS: MoRPHine SULFATE 2 MG/ML CARP IV PRN ×3 (07:38→21:26)
[2017-02-25 08:51] VITALS: BP 154/85; PULSE 56
[2017-02-25] MEDS: LISINOPRIL 10 MG TAB PO SCH (08:52)
--- NOTE | 2017-02-25 13:13 | Progress Note ---
Internal Med Progress Note Date of Service: Feb 25, 2017. Provider Documentation: SUBJECTIVE: Patient had vomiting x 1 episode today. Abdominal pain + Upset about being on clear liquid diet and negotiating for more food. No fever, chills. OBJECTIVE: Vital Signs-as noted below Exam: General-AAOX3, no distress Eyes-No icterus Neck-Supple Lungs-AEBE, no wheezing, rhonchi Heart-S1, S2 normal, no murmurs Abdomen-Soft, tenderness +, BS present Extremities-B/L LE edema with chronic leg ulcers Lab data as noted below. ASSESSMENT & PLAN: RECURRENT PANCREATITIS LIKELY SECONDARY TO GALL STONE : Patient has been in and out of hospital multiple times for the same reason. Refuses tests, IV fluids and only thing he takes on a regular basis is his pain medications- IV Dilaudid PRN, but takes it as scheduled. Has had elevated Lipase , LFTS - obstructive pattern with ALP in 500s for the past few admissions. US this admission does show acute cholecystitis, Intra/extra hepatic duct, pancreatic duct dilation, Cholelithiasis. Has refused Imaging- MRCP, Procedures like ERCP and even surgery in past including this admission. -Had a small vomitus today, abdominal pain + , recommend continuation of IV fluids, Diet -- Clear liquids, Pain medication- IV Morphine q 6 hours PRN -However, he does refuse to take IVF, upset about clear liquid diet. Explained him with his current medical condition, this would be the appropriate diet. -Ongoing refusal of any type of recommendations. -S/P GI/Surgery consults. ACUTE CHOLECYSTITIS - As per US LFTs are elevated including ALP No Fever/Chills; NO increase in WCC -Surgery consulted-appreciate input. Signed off as refused treatment HYPOKALEMIA -Had been refusing potassium supplementation too -He understands the risks by refusing K such as cardiac arrhythmia, and even ACUTE SCHIZOPHRENIA- Paranoid schizophrenia as per records Extreme paranoia prohibiting patient from following medical recommendations (px paranoid about "magnets" for recommended MRCP procedure) -Psych consulted - as per psych no immediate danger to life , does not require inpatient psychiatry care HYPOGLYCEMIA -Blood sugar remains stable HTN- hx non-compliance BP elevated -Resumed lisinopril 30mg -Hydralazine PRN LAUREN - Resolved -Possible related to medications and clinical dehydration HX OF TESTICULAR TUMOR S/P SURGERY -No acute symptoms stable Hx DVT not a good candidate for anticoag due to homelessness and noncompliant DVT px On SQ Heparin CODE STATUS Full code. DISPOSITION To be determined Non compliant with medications, tests - refuses to follow recommendations, but at the same time refusing to be discharged from hospital or go to the rehab Vital Signs: Date Time Temp Pulse Resp B/P Pulse Ox O2 Delivery O2 Flow Rate FiO2 02/25/17 08:51 56 154/85 02/25/17 07:36 36.4 47 16 181/87 96 Room Air 02/25/17 07:25 Room Air 02/25/17 00:17 141/71 02/24/17 23:10 Room Air 02/24/17 23:06 36.9 57 15 173/84 94 Room Air 02/24/17 21:10 50 150/86 02/24/17 17:35 50 174/87 02/24/17 17:35 Room Air 02/24/17 16:00 97 Room Air 02/24/17 15:00 36.6 50 16 179/98 97 Room Air
[2017-02-25 14:53] VITALS: BP 174/90; PULSE 51; TEMP 36.7; O2SAT 98
[2017-02-25 16:31] VITALS: BP 155/83
[2017-02-25 23:31] VITALS: BP 157/94; PULSE 51; TEMP 36.7; O2SAT 96
[2017-02-26] MEDS: SODIUM CHLORIDE 0.9% 1000ML 1,000 ML IV SCH ×4 (05:31→23:55)
[2017-02-26] MEDS: HEPARIN SOD 5000 UNIT/0.5 ML CARP SQ SCH ×3 (05:31→21:02)
[2017-02-26] MEDS: HydrALAZINE HCL 20 MG/ML VIAL IV. PRN ×2 (08:01→16:34)
[2017-02-26] MEDS: CHECK CLONIDINE PATCH PLACEMENT SCH ×3 (08:02→23:54)
[2017-02-26 08:09] VITALS: BP 183/85; PULSE 46; TEMP 36.4; O2SAT 97
[2017-02-26] MEDS: LISINOPRIL 10 MG TAB PO SCH (09:00)
--- NOTE | 2017-02-26 10:53 | Progress Note ---
Internal Med Progress Note Date of Service: Feb 26, 2017. Provider Documentation: SUBJECTIVE: Patient denies vomiting today. Abdominal pain is bit better, but still taking IV morphine as scheduled. Upset about being on clear liquid diet and negotiating for more food. No fever, chills. OBJECTIVE: Vital Signs-as noted below Exam: General-AAOX3, no distress Eyes-No icterus Neck-Supple Lungs-AEBE, no wheezing, rhonchi Heart-S1, S2 normal, no murmurs Abdomen-Soft, tenderness +, BS present Extremities-B/L LE edema with chronic leg ulcers Lab data as noted below. ASSESSMENT & PLAN: RECURRENT PANCREATITIS LIKELY SECONDARY TO GALL STONE : Patient has been in and out of hospital multiple times for the same reason. Refuses tests, IV fluids and only thing he takes on a regular basis is his pain medications- IV Dilaudid PRN, but takes it as scheduled. Has had elevated Lipase , LFTS - obstructive pattern with ALP in 500s for the past few admissions. US this admission does show acute cholecystitis, Intra/extra hepatic duct, pancreatic duct dilation, Cholelithiasis. Has refused Imaging- MRCP, Procedures like ERCP and even surgery in past including this admission. -No vomiting today, abdominal pain + , recommend continuation of IV fluids, Diet -- Clear liquids, Pain medication- IV Morphine q 6 hours PRN--> change to q 8 hours prn -However, he does refuse to take IVF, upset about clear liquid diet. Explained him with his current medical condition, this would be the appropriate diet. -Ongoing refusal of any type of recommendations. -S/P GI/Surgery consults. ACUTE CHOLECYSTITIS - As per US LFTs are elevated including ALP No Fever/Chills; NO increase in WCC -Surgery consulted-appreciate input. Signed off as refused treatment HYPOKALEMIA -Had been refusing potassium supplementation too -He understands the risks by refusing K such as cardiac arrhythmia, and even ACUTE SCHIZOPHRENIA- Paranoid schizophrenia as per records Extreme paranoia prohibiting patient from following medical recommendations (px paranoid about "magnets" for recommended MRCP procedure) -Psych consulted - as per psych no immediate danger to life , does not require inpatient psychiatry care HYPOGLYCEMIA -Blood sugar remains stable HTN- hx non-compliance BP elevated -Resumed lisinopril 30mg -Hydralazine PRN LAUREN - Resolved -Possible related to medications and clinical dehydration HX OF TESTICULAR TUMOR S/P SURGERY -No acute symptoms stable Hx DVT not a good candidate for anticoag due to homelessness and noncompliant DVT px On SQ Heparin CODE STATUS Full code. DISPOSITION To be determined Non compliant with medications, tests - refuses to follow recommendations, but at the same time refusing to be discharged from hospital or go to the rehab Vital Signs: Date Time Temp Pulse Resp B/P Pulse Ox O2 Delivery O2 Flow Rate FiO2 02/26/17 08:09 36.4 46 16 183/85 97 Room Air 02/25/17 23:31 36.7 51 12 157/94 96 Room Air 02/25/17 23:20 Room Air 02/25/17 16:56 Room Air 02/25/17 16:31 155/83 02/25/17 14:53 36.7 51 16 174/90 98 Room Air
[2017-02-26 15:06] VITALS: BP 193/89; PULSE 72; TEMP 36.4; O2SAT 99
[2017-02-26 16:15] VITALS: BP 200/89
[2017-02-26] MEDS ORDERED: MoRPHine SULFATE 2 MG/ML CARP IV ONE (17:00)
[2017-02-26] MEDS ORDERED: NURSING VERBAL MED ORDER ONE (17:00)
[2017-02-26] MEDS: MoRPHine SULFATE 2 MG/ML CARP IV PRN ×2 (18:13→23:55)
[2017-02-26 22:45] VITALS: BP 140/79; PULSE 57; TEMP 36.6; O2SAT 97
[2017-02-27] MEDS: ONDANSETRON INJ 2 MG/ML 2 ML VIAL IV PRN (00:03)
[2017-02-27] MEDS: HEPARIN SOD 5000 UNIT/0.5 ML CARP SQ SCH ×3 (05:40→22:00)
[2017-02-27] MEDS: SODIUM CHLORIDE 0.9% 1000ML 1,000 ML IV SCH ×3 (07:17→20:45)
[2017-02-27] MEDS: CHECK CLONIDINE PATCH PLACEMENT SCH ×3 (07:17→23:52)
[2017-02-27 07:37] LABS: HEMATOCRIT 35.7 % (42-52); MEAN CELL VOLUME 81.3 fL (80-100); MEAN CORPUSCULAR HEMOGLOBIN 26.7 pg (25-34); MEAN CORPUSCULAR HGB CONC 32.8 g/dl (32-36); MEAN PLATELET VOLUME 10.3 fL (7.4-10.4); PLATELET COUNT 196 K/uL (130-400); RED BLOOD COUNT 4.39 M/uL (4.7-6.1); WHITE BLOOD COUNT 3.74 K/uL (4.8-10.8)
[2017-02-27 08:02] VITALS: BP 124/70; PULSE 74; TEMP 36; O2SAT 93
[2017-02-27 08:02] LABS: ALB/GLOB RATIO 0.8 (0.9-2); BUN/CREATININE RATIO 21.6 (10-20); CALCIUM 8.9 mg/dl (8.5-10.1); CREATININE 0.85 mg/dl (0.60-1.40); POTASSIUM 3.2 mmol/L (3.5-5.1)
[2017-02-27] MEDS: LISINOPRIL 10 MG TAB PO SCH (08:58)
--- NOTE | 2017-02-27 12:53 | Progress Note ---
Internal Med Progress Note Date of Service: Feb 27, 2017. Provider Documentation: SUBJECTIVE: Patient had an episode of vomiting yesterday. Abdominal pain is bit better, but still taking IV morphine as scheduled. Upset about being on clear liquid diet and negotiating for more food. No fever, chills, diarrhea. OBJECTIVE: Vital Signs-as noted below Exam: General-AAOX3, no distress Eyes-No icterus Neck-Supple Lungs-AEBE, no wheezing, rhonchi Heart-S1, S2 normal, no murmurs Abdomen-Soft, tenderness +, BS present Extremities-B/L LE edema with chronic leg ulcers Lab data as noted below. ASSESSMENT & PLAN: RECURRENT PANCREATITIS LIKELY SECONDARY TO GALL STONE : Patient has been in and out of hospital multiple times for the same reason. Refuses tests, IV fluids and only thing he takes on a regular basis is his pain medications- IV Morphine PRN but takes it as scheduled. Has had elevated Lipase , LFTS - obstructive pattern with ALP in 500s for the past few admissions. US this admission does show acute cholecystitis, Intra/extra hepatic duct, pancreatic duct dilation, Cholelithiasis. Has refused Imaging- MRCP, Procedures like ERCP and even surgery in past including this admission. -One episode of vomiting yesterday, abdominal pain + , recommend continuation of IV fluids, Diet -- Clear liquids--> Advance to mechanical soft diet to see whether he tolerates, Pain medication- Tapering down IV Morphine q 6 hours PRN-- > changed to q 8 hours prn yesterday -He refuses IVF. Explained him with his current medical condition, have to advance diet slowly, but does not understand and refuses to accept that food can cause worsening of symptoms in pancreatitis. -Ongoing refusal of any type of recommendations. -S/P GI/Surgery consults. ACUTE CHOLECYSTITIS - As per US LFTs are elevated including ALP No Fever/Chills; NO increase in WCC -Surgery consulted-appreciate input. Signed off as refused treatment HYPOKALEMIA -K continues to remain low -Had been refusing potassium supplementation. ACUTE SCHIZOPHRENIA- Paranoid schizophrenia as per records Extreme paranoia prohibiting patient from following medical recommendations (px paranoid about "magnets" for recommended MRCP procedure) -Psych consulted - as per psych no immediate danger to life , does not require inpatient psychiatry care HYPOGLYCEMIA -Blood sugar remains stable HTN- hx non-compliance and takes medications on and off when he feels like -Resumed lisinopril 30mg -Hydralazine PRN LAUREN - Resolved -Possible related to medications and clinical dehydration HX OF TESTICULAR TUMOR S/P SURGERY -No acute symptoms stable Hx DVT not a good candidate for anticoag due to homelessness and noncompliant DVT px On SQ Heparin CODE STATUS Full code. DISPOSITION To be determined Non compliant with medications, tests - refuses to follow recommendations, but at the same time refusing to be discharged from hospital or go to the rehab. Had a meeting on 02/22/17 with case picker, nurse supervisor plating and point assembly, office of aging/ protective service dept to discuss the case and options Neuropsychiatric assessment today for more detailed assessment of thought processing and determine medical competency Vital Signs: Date Time Temp Pulse Resp B/P Pulse Ox O2 Delivery O2 Flow Rate FiO2 02/27/17 08:02 36.0 74 21 124/70 93 Room Air 02/27/17 07:10 Room Air 02/27/17 00:06 Room Air 02/26/17 22:45 36.6 57 18 140/79 97 Room Air 02/26/17 16:45 Room Air 02/26/17 16:15 200/89 02/26/17 15:06 36.4 72 18 193/89 99 Room Air Lab Results: Results Past 24 Hours Test 02/27/17 07:01 Range/Units White Blood Count 3.74 4.8-10.8 K/uL Red Blood Count 4.39 4.7-6.1 M/uL Hemoglobin 11.7 14.0-18.0 g/dL Hematocrit 35.7 42-52 % Mean Corpuscular Volume 81.3 80-100 fL Mean Corpuscular Hemoglobin 26.7 25-34 pg Mean Corpuscular Hemoglobin Concent 32.8 32-36 g/dl RDW Standard Deviation 52.3 36.4-46.3 fL RDW Coefficient of Variation 17.8 11.5-14.5 % Platelet Count 196 130-400 K/uL Mean Platelet Volume 10.3 7.4-10.4 fL Sodium Level 144 136-145 mmol/L Potassium Level 3.2 3.5-5.1 mmol/L Chloride Level 107 98-107 mmol/L Carbon Dioxide Level 28 21-32 mmol/L Anion Gap 9.0 3-11 mmol/L Blood Urea Nitrogen 18 7-18 mg/dl Creatinine 0.85 0.60-1.40 mg/dl Est Creatinine Clear Calc Drug Dose 68.1 ml/min Estimated GFR () 106.7 Estimated GFR (Non- 92.1 BUN/Creatinine Ratio 21.6 10-20 Random Glucose 68 70-99 mg/dl Calcium Level 8.9 8.5-10.1 mg/dl Total Bilirubin 6.8 0.2-1 mg/dl Aspartate Amino Transf (AST/SGOT) 95 15-37 U/L Alanine Aminotransferase (ALT/SGPT) 114 12-78 U/L Alkaline Phosphatase 554 45-117 U/L Total Protein 6.2 6.4-8.2 gm/dl Albumin 2.7 3.4-5.0 gm/dl Globulin 3.5 2.5-4.0 gm/dl Albumin/Globulin Ratio 0.8 0.9-2 Lipase 2256 73-393 U/L
[2017-02-27 15:19] VITALS: BP 156/85; PULSE 52; TEMP 36.9; O2SAT 97
[2017-02-27] MEDS: MoRPHine SULFATE 2 MG/ML CARP IV PRN ×2 (15:42→23:46)
[2017-02-27 23:15] VITALS: BP 126/73; PULSE 54; TEMP 36.8; O2SAT 96
[2017-02-28] MEDS: SODIUM CHLORIDE 0.9% 1000ML 1,000 ML IV SCH ×4 (03:14→23:08)
[2017-02-28] MEDS: HEPARIN SOD 5000 UNIT/0.5 ML CARP SQ SCH ×3 (05:43→21:40)
[2017-02-28 07:05] VITALS: BP 153/94; PULSE 44; TEMP 36.5; O2SAT 93
[2017-02-28] MEDS: CHECK CLONIDINE PATCH PLACEMENT SCH ×3 (07:50→23:08)
[2017-02-28] MEDS: LISINOPRIL 10 MG TAB PO SCH (09:00)
[2017-02-28] MEDS: MoRPHine SULFATE 2 MG/ML CARP IV PRN ×2 (11:20→20:01)
[2017-02-28 12:35] VITALS: BP 126/83; PULSE 62; O2SAT 96
[2017-02-28 15:13] VITALS: BP 129/80; PULSE 66; TEMP 36.8; O2SAT 97
--- NOTE | 2017-02-28 18:06 | Progress Note ---
Internal Med Progress Note Date of Service: Feb 28, 2017. Provider Documentation: SUBJECTIVE: Patient is seen and examined at bedside. States having nausea overnight which currently resolved. Also states abd pain is improving and is tolerating diet. OBJECTIVE: Vital Signs-as noted below Physical Exam: General Appearance:Thin, fragile, no apparent distress Head: normocephalic, Atraumatic Eyes: normal inspection, EOMI, PERRLA Neck: supple, JVD, Trachea midline Respiratory/Chest: Normal breath sounds, CTA Cardiovascular: S1, S2, No murmur Abdomen/GI:Soft, + tender, Bowel sounds present Extremities/Musculoskelatal: RLE in bandage. No edema Neurologic/Psych:AAOX3, grossly no focal neurological deficits Skin: normal color, warm Lab data as noted below. ASSESSMENT & PLAN: RECURRENT PANCREATITIS LIKELY SECONDARY TO GALL STONE : Multiple admissions with same problem. Refuses tests, procedures and doesn't want any surgery. Elevated Lipase, LFTS - obstructive pattern with ALP in 500s for the past few admissions. Ultrasound this admission does show acute cholecystitis, Intra/extra hepatic duct, pancreatic duct dilation, Cholelithiasis. Refused: MRCP, Procedures like ERCP and surgery despite counselling Abd pain improving, Nausea overnight IV fluids, currently on mechanical soft diet Pain control S/P GI/Surgery consults. ACUTE CHOLECYSTITIS As per US LFTs are elevated including ALP No Fever/Chills; NO increase in WCC Surgery consulted-appreciate input. Signed off as refused treatment HYPOKALEMIA Replace and monitor Had been refusing potassium supplementation. ACUTE SCHIZOPHRENIA Paranoid schizophrenia as per records Extreme paranoia prohibiting patient from following medical recommendations (px paranoid about "magnets" for recommended MRCP procedure) Psych consulted - as per psych no immediate danger to life , does not require inpatient psych care HYPOGLYCEMIA Blood sugar remains stable Monitor HTN- hx non-compliance and takes medications on and off when he feels like Continue lisinopril 30mg Hydralazine PRN LAUREN Resolved Possible related to medications and dehydration Monitor renal function HX OF TESTICULAR TUMOR S/P SURGERY No acute symptoms stable Hx DVT not a good candidate for anticoag due to homelessness and noncompliant DVT px SQ Heparin CODE STATUS Full code. DISPOSITION To be determined Neuropsychiatric assessment for more detailed assessment of thought processing and determine medical competency Vital Signs: Date Time Temp Pulse Resp B/P Pulse Ox O2 Delivery O2 Flow Rate FiO2 02/28/17 15:13 36.8 66 18 129/80 97 Room Air 02/28/17 12:35 62 126/83 96 02/28/17 07:05 36.5 44 16 153/94 93 Room Air 02/28/17 07:05 Room Air 02/27/17 23:45 Room Air 02/27/17 23:15 36.8 54 16 126/73 96 Room Air
[2017-02-28] MEDS ORDERED: POTASSIUM CHLORIDE 10 MEQ TABCR PO ONE (19:00)
[2017-02-28 23:20] VITALS: BP 124/83; PULSE 56; TEMP 36.7; O2SAT 97
[2017-03-01] MEDS: ONDANSETRON INJ 2 MG/ML 2 ML VIAL IV PRN ×2 (04:49→08:53)
[2017-03-01] MEDS: MoRPHine SULFATE 2 MG/ML CARP IV PRN ×3 (04:49→21:30)
[2017-03-01] MEDS: HEPARIN SOD 5000 UNIT/0.5 ML CARP SQ SCH ×3 (05:34→21:31)
[2017-03-01] MEDS: SODIUM CHLORIDE 0.9% 1000ML 1,000 ML IV SCH ×2 (05:34→12:18)
[2017-03-01 07:52] VITALS: BP 143/94; PULSE 56; TEMP 36.4; O2SAT 96
[2017-03-01] MEDS: CHECK CLONIDINE PATCH PLACEMENT SCH ×2 (08:53→16:43)
[2017-03-01 08:57] LABS: BUN/CREATININE RATIO 23.9 (10-20); CALCIUM 8.8 mg/dl (8.5-10.1); CREATININE 0.79 mg/dl (0.60-1.40); POTASSIUM 3.3 mmol/L (3.5-5.1)
[2017-03-01] MEDS: LISINOPRIL 10 MG TAB PO SCH (10:40)
[2017-03-01 15:05] VITALS: BP 144/85; PULSE 59; TEMP 36.7; O2SAT 96
--- NOTE | 2017-03-01 15:54 | Progress Note ---
Internal Med Progress Note Date of Service: Mar 01, 2017. Provider Documentation: SUBJECTIVE: Patient is seen and examined at bedside. States having nausea, vomiting and abd pain today. Very reluctant to be changed to clear liquid diet. Denies chest pain , SOB. OBJECTIVE: Vital Signs-as noted below Physical Exam: General Appearance:Thin, fragile, no apparent distress Head: normocephalic, Atraumatic Eyes: normal inspection, EOMI, PERRLA Neck: supple, JVD, Trachea midline Respiratory/Chest: Normal breath sounds, CTA Cardiovascular: S1, S2, No murmur Abdomen/GI:Soft, + tender, Bowel sounds present Extremities/Musculoskelatal: RLE in bandage. No edema Neurologic/Psych:AAOX3, grossly no focal neurological deficits Skin: normal color, warm Lab data as noted below. ASSESSMENT & PLAN: RECURRENT PANCREATITIS LIKELY SECONDARY TO GALL STONE : Multiple admissions with same problem. Refuses tests, procedures and doesn't want any surgery. Elevated Lipase, LFTS - obstructive pattern with ALP in 500s for the past few admissions. Ultrasound this admission does show acute cholecystitis, Intra/extra hepatic duct, pancreatic duct dilation, Cholelithiasis. Refused: MRCP, Procedures like ERCP and surgery despite counselling Has Abd pain, Nausea and vomiting IV fluids, currently on mechanical soft diet Pain control S/P GI/Surgery consults ACUTE CHOLECYSTITIS As per US LFTs are elevated including ALP No Fever/Chills; NO increase in WCC Surgery consulted-appreciate input. Signed off as refused treatment HYPOKALEMIA Had been refusing potassium supplementation. Will add potassium to IVF if patient agrees to be on IV fluids. ACUTE SCHIZOPHRENIA Paranoid schizophrenia as per records Extreme paranoia prohibiting patient from following medical recommendations (px paranoid about "magnets" for recommended MRCP procedure) Psych consulted - as per psych no immediate danger to life , does not require inpatient psych care HYPOGLYCEMIA Blood sugar remains stable Monitor HTN- hx non-compliance and takes medications on and off when he feels like Continue lisinopril 30mg Hydralazine PRN LAUREN Resolved Possible related to medications and dehydration Monitor renal function HX OF TESTICULAR TUMOR S/P SURGERY No acute symptoms stable Hx DVT not a good candidate for anticoag due to homelessness and noncompliant DVT px SQ Heparin CODE STATUS Full code. DISPOSITION Likely to [facility] if accepted behavioral services tech working on placement Vital Signs: Date Time Temp Pulse Resp B/P Pulse Ox O2 Delivery O2 Flow Rate FiO2 03/01/17 15:05 36.7 59 18 144/85 96 Room Air 03/01/17 08:14 Room Air 03/01/17 07:52 36.4 56 19 143/94 96 Room Air 02/28/17 23:20 36.7 56 16 124/83 97 Room Air 02/28/17 19:15 Room Air Lab Results: Results Past 24 Hours Test 03/01/17 07:54 Range/Units Sodium Level 145 136-145 mmol/L Potassium Level 3.3 3.5-5.1 mmol/L Chloride Level 107 98-107 mmol/L Carbon Dioxide Level 30 21-32 mmol/L Anion Gap 8.0 3-11 mmol/L Blood Urea Nitrogen 19 7-18 mg/dl Creatinine 0.79 0.60-1.40 mg/dl Est Creatinine Clear Calc Drug Dose 70.9 ml/min Estimated GFR () 110.0 Estimated GFR (Non- 94.9 BUN/Creatinine Ratio 23.9 10-20 Random Glucose 118 70-99 mg/dl Calcium Level 8.8 8.5-10.1 mg/dl
[2017-03-01] MEDS: NSS + 20MEQ KCL 1000ML 1,000 ML IV SCH (17:00)
[2017-03-01 23:01] VITALS: BP 134/90; PULSE 61; TEMP 36.8; O2SAT 94
[2017-03-02] MEDS: CHECK CLONIDINE PATCH PLACEMENT SCH ×2 (00:02→09:06)
[2017-03-02] MEDS: NSS + 20MEQ KCL 1000ML 1,000 ML IV SCH (05:17)
[2017-03-02] MEDS: HEPARIN SOD 5000 UNIT/0.5 ML CARP SQ SCH ×2 (05:17→14:00)
[2017-03-02 07:30] VITALS: BP 161/99; PULSE 56; TEMP 36.7; O2SAT 96
[2017-03-02 08:42] LABS: BUN/CREATININE RATIO 23.5 (10-20); CREATININE 0.8 mg/dl (0.60-1.40); POTASSIUM 3.8 mmol/L (3.5-5.1)
[2017-03-02] MEDS: LISINOPRIL 10 MG TAB PO SCH (09:00)
[2017-03-02] MEDS: MoRPHine SULFATE 2 MG/ML CARP IV PRN (09:06)
[2017-03-02 09:20] LABS: CALCIUM 9.3 mg/dl (8.5-10.1)
--- NOTE | 2017-03-02 13:12 | Progress Note ---
Internal Med Progress Note Date of Service: Mar 02, 2017. Provider Documentation: SUBJECTIVE: Patient is seen and examined at bedside. No nausea, vomiting today. Abd pain is controlled. Very reluctant to get treated despite counselling on multiple occasions. Denies chest pain, SOB. OBJECTIVE: Vital Signs-as noted below Physical Exam: General Appearance:Thin, fragile, no apparent distress Head: normocephalic, Atraumatic Eyes: normal inspection, EOMI, PERRLA Neck: supple, JVD, Trachea midline Respiratory/Chest: Normal breath sounds, CTA Cardiovascular: S1, S2, No murmur Abdomen/GI:Soft, + tender, Bowel sounds present Extremities/Musculoskelatal: RLE in bandage. No edema Neurologic/Psych:AAOX3, grossly no focal neurological deficits Skin: normal color, warm Lab data as noted below. ASSESSMENT & PLAN: RECURRENT PANCREATITIS LIKELY SECONDARY TO GALL STONE : Multiple admissions with same problem. Refuses tests, procedures and doesn't want any surgery. Elevated Lipase, LFTS - obstructive pattern with ALP in 500s for the past few admissions. Ultrasound this admission does show acute cholecystitis, Intra/extra hepatic duct, pancreatic duct dilation, Cholelithiasis. Refused: MRCP, Procedures like ERCP and surgery despite counselling Intermittent Abd pain, Nausea and vomiting refused IV fluids, currently on mechanical soft diet Pain control S/P GI/Surgery consults: Refused further management despite counseling on multiple occasions. ACUTE CHOLECYSTITIS As per US LFTs are elevated including ALP No Fever/Chills; NO increase in WCC Surgery consulted-appreciate input. Signed off as refused treatment HYPOKALEMIA Resolved ACUTE SCHIZOPHRENIA Paranoid schizophrenia as per records Extreme paranoia prohibiting patient from following medical recommendations (px paranoid about "magnets" for recommended MRCP procedure) Psych consulted - as per psych no immediate danger to life , does not require inpatient psych care Neuro psych assessment done HYPOGLYCEMIA Blood sugar remains stable Monitor HTN hx non-compliance and takes medications on and off when he feels like Continue lisinopril 30mg Hydralazine PRN LAUREN Resolved Possible related to medications and dehydration Monitor renal function HX OF TESTICULAR TUMOR S/P SURGERY No acute symptoms stable Hx DVT not a good candidate for anticoag due to homelessness and noncompliant DVT px SQ Heparin CODE STATUS Full code. DISPOSITION Plan to discharge today REFUSES TO FOLLOW UP WITH ANY PRIMARY CARE PHYSICIAN REFUSES TO BE PRESCRIBED ON ANY MEDICATIONS Office of Aging aware No nursing facilities in [facility] can accept Pt at this time. Patient is not willing to go outside of [facility]. Provided taxi voucher back to [facility] upon discharge Coordinated with social service Vital Signs: Date Time Temp Pulse Resp B/P Pulse Ox O2 Delivery O2 Flow Rate FiO2 03/02/17 08:05 Room Air 03/02/17 07:30 36.7 56 19 161/99 96 Room Air 03/02/17 00:00 Room Air 03/01/17 23:01 36.8 61 15 134/90 94 Room Air 03/01/17 16:00 Room Air 03/01/17 15:05 36.7 59 18 144/85 96 Room Air Lab Results: Results Past 24 Hours Test 03/02/17 07:04 Range/Units Sodium Level 142 136-145 mmol/L Potassium Level 3.8 3.5-5.1 mmol/L Chloride Level 108 98-107 mmol/L Carbon Dioxide Level 27 21-32 mmol/L Anion Gap 7.0 3-11 mmol/L Blood Urea Nitrogen 19 7-18 mg/dl Creatinine 0.80 0.60-1.40 mg/dl Est Creatinine Clear Calc Drug Dose 68.9 ml/min Estimated GFR () 109.4 Estimated GFR (Non- 94.4 BUN/Creatinine Ratio 23.5 10-20 Random Glucose 110 70-99 mg/dl Calcium Level 9.3 8.5-10.1 mg/dl Total Bilirubin 4.7 0.2-1 mg/dl Direct Bilirubin 3.1 0-0.2 mg/dl Aspartate Amino Transf (AST/SGOT) 75 15-37 U/L Alanine Aminotransferase (ALT/SGPT) 109 12-78 U/L Alkaline Phosphatase 481 45-117 U/L Total Protein 6.3 6.4-8.2 gm/dl Albumin 2.7 3.4-5.0 gm/dl Lipase 1011 73-393 U/L
--- NOTE | 2017-03-02 13:20 | Discharge Summary ---
Discharge Summary Date of Service Mar 02, 2017. Discharge Summary Admission Date: Feb 07, 2017 at 04:11 Discharge Date: Mar 02, 2017 Discharge Disposition: Home Principal Diagnosis: Recurrent Pancreatitis and acute cholecystitis Procedures: Gall bladder USD: 1. Cholelithiasis and biliary sludge. Sonographic findings are consistent with acute cholecystitis. 2. There is intra and extrahepatic biliary ductal dilatation as well as mild dilatation of the pancreatic duct. The dilatation of the pancreatic duct is atypical, and although this is likely related to cholecystitis an obstructing lesion at the level of the pancreatic head is not excluded. Follow-up imaging posttreatment is recommended for reassessment. 3. The right kidney is markedly atrophic and echogenic consistent with medical renal disease. Consultations: GI, Surgery Medication Reconciliation Continued Medications: Clonidine HCl (Clonidine HCl) 1 Patch Tdsy 1 PATCH TD Th@1800 for 30 Days, #10 Lisinopril (Zestril) 10 Mg Tab 30 MG PO QAM for 30 Days, #30 TAB Admission Information HPI (per Admitting provider): CHIEF COMPLAINT: Abdominal pain. HISTORY OF PRESENT ILLNESS: Medical history is significant for schizophrenia, hypertension, history of DVT, history of testicular CA sp surgery and chemotherapy, past tobacco abuse, chronic anemia (baseline hemoglobin of 11), chronic lymphedema. Recent month long confinement last month for recurrent pancreatitis. Patient's CAT scan of the abdomen showed CBD hepatic duct dilatation, cannot rule out mass, stricture. Patient declined MRCP, further evaluation and management. Subsequently was discharged yesterday. Last night, the patient felt sick after consuming two hot dogs. Had achy epigastric pain, nausea and vomiting. No fever, no chills or hematemesis. No chest pain, no shortness of breath. Patient was brought to the Emergency Room. Physical Exam (per Admitting): PHYSICAL EXAMINATION: VITAL SIGNS: Blood pressure was noted to be 161/100, pulse rate 67, RR 20 T37 sats 98 on room air. GENERAL: Uncomfortable, hyposthenic, in no respiratory distress, unkempt SKIN: Pallor. HEENT: Pale palpebral conjunctivae. Dry mucosa. NECK: No JVD. Supple. CHEST: Decreased effort. HEART: Regular rate and rhythm. ABDOMEN: Epigastric tenderness. EXTREMITIES: Lymphedema, right. NEUROLOGIC: No gross focality. Hospital Course RECURRENT PANCREATITIS LIKELY SECONDARY TO GALL STONE : Multiple admissions with same problem. Refuses tests, procedures and doesn't want any surgery. Elevated Lipase, LFTS - obstructive pattern with ALP in 500s for the past few admissions. Ultrasound this admission does show acute cholecystitis, Intra/extra hepatic duct, pancreatic duct dilation, Cholelithiasis. Refused: MRCP, Procedures like ERCP and surgery despite counselling Intermittent Abd pain, Nausea and vomiting refused IV fluids, currently on mechanical soft diet Pain control S/P GI/Surgery consults: Refused further management despite counseling on multiple occasions. ACUTE CHOLECYSTITIS As per US LFTs are elevated including ALP No Fever/Chills; NO increase in WCC Surgery consulted-appreciate input. Signed off as refused treatment HYPOKALEMIA Resolved ACUTE SCHIZOPHRENIA Paranoid schizophrenia as per records Extreme paranoia prohibiting patient from following medical recommendations (px paranoid about "magnets" for recommended MRCP procedure) Psych consulted - as per psych no immediate danger to life , does not require inpatient psych care Neuro psych assessment done HYPOGLYCEMIA Blood sugar remains stable Monitor HTN hx non-compliance and takes medications on and off when he feels like Continue lisinopril 30mg Hydralazine PRN LAUREN Resolved Possible related to medications and dehydration Monitor renal function HX OF TESTICULAR TUMOR S/P SURGERY No acute symptoms stable Hx DVT not a good candidate for anticoag due to homelessness and noncompliant DVT px SQ Heparin CODE STATUS Full code. DISPOSITION Plan to discharge today REFUSES TO FOLLOW UP WITH ANY PRIMARY CARE PHYSICIAN REFUSES TO BE PRESCRIBED ON ANY MEDICATIONS Office of Aging aware No nursing facilities in [facility] [address] [facility] can accept Pt at this time. Patient is not willing to go outside of [facility] [address] [facility]. Provided taxi voucher back to [facility] upon discharge Coordinated with social service Total time spent on discharge = This includes examination of the patient, discharge planning, medication reconciliation, and communication with other providers. Discharge Instructions Discharge Instructions Date of Service Mar 02, 2017. Admission Reason for Admission: Pancreatitis Discharge Discharge Diagnosis / Problem: Recurrent Pancreatitis and acute cholecystitis Discharge Goals Goal(s): Decrease discomfort, Improve function Activity Recommendations Activity Limitations: resume your previous activity Exercise/Sports Limitations: as tolerated . Instructions / Follow-Up Instructions / Follow-Up Follow up with your primary care physician as advised Seek immediate medical attention if your symptoms worsen Get further evaluation and treatment for your recurrent pancreatitis/ cholecystitis as advised if you change your decision (As you refused treatment while hospitalized) Current Hospital Diet Patient's current hospital diet: AHA Diet (Heart Healthy) Discharge Diet Recommended Diet: Low Fiber Diet, Low Fat Diet Pending Studies Studies pending at discharge: no Medical Emergencies . Who to Call and When: Medical Emergencies: If at any time you feel your situation is an emergency, please call 911 immediately. . Non-Emergent Contact Non-Emergency issues call your: Primary Care Provider Call Non-Emergent contact if: you have a fever, your pain is not controlled, your pain is worsening, your pain is unusual for you, you have any medication questions . . "Provider Documentation" section prepared by Uche Chatman. VTE Core Measure Inpt VTE Proph given/why not?: Unfractionated heparin SQ
[2017-03-02 13:22] VITALS: BP 161/99; PULSE 56; TEMP 36.7; O2SAT 96
== END 2017-03-02 15:11 | disposition home or self-care (01) | DRG 439 ==
LOC: ENRESERVDT → ENRESERVTM → EDBD 02:40 → C.EDA 02:41 → C.MSN 04:11
PROVIDERS: ADMIT Internal Medicine; ATTEND Internal Medicine
DX: K86.1 Other chronic pancreatitis (principal); N17.9 Acute kidney failure, unspecified; K80.00 Calculus of gallbladder with acute cholecystitis without obstruction; F20.0 Paranoid schizophrenia; I10 Essential (primary) hypertension; D64.9 Anemia, unspecified; E87.6 Hypokalemia; E16.2 Hypoglycemia, unspecified; Z86.718 Personal history of other venous thrombosis and embolism; Z91.19 Patient's noncompliance with other medical treatment and regimen; Z82.49 Family history of ischemic heart disease and other diseases of the circulatory system; Z87.891 Personal history of nicotine dependence; Z59.0 Homelessness; Z85.47 Personal history of malignant neoplasm of testis

== ENCOUNTER 2017-03-02 23:09 | Emergency (ER) | payer OTHER ==
[~2017-03-02] VITALS: Ht 172.7 cm; Wt 54.9 kg
[~2017-03-02 23:09] MED LIST changes: -ONDA8TAB62 SL
[2017-03-02 23:21] VITALS: TEMP 36.7; Ht 172.7 cm; Wt 54.9 kg
[2017-03-02] MEDS ORDERED: SODIUM CHLORIDE 0.9% 1000ML 1,000 ML IV STA (23:27)
--- NOTE | 2017-03-02 23:42 | EMERGENCY ROOM VISIT NOTE ---
History Report prepared by Heather: Dara Lam Under the Supervision of: Dr. Nataliia Agustin M.D. First contact with patient: 23:13 Chief Complaint: DIZZY Stated Complaint: DIZZY/GENERAL WEAKNESS Nursing Triage Summary: Patient arrived to ED via BLS. Patient reports that he was released from the hospital this afternoon. Patient had ambulance called today because when he was at [facility] he became weak and felt as though he was going to pass out. Patient reports that he hasn't eaten in 40 days because he was NPO in the hospital for pertonitis. Patient reports that he attempted to drink some soda and eat some potato chips today. Patient denies pain or n/v. History of Present Illness The patient is a 66 year old male who presents to the Emergency Room via BLS with complaints of severe weakness starting a few days ago. The patient was at [facility] today when he felt severely weak and lightheaded. He felt as though he was about to pass out. The patient attempted to eat some chips and drink some liquids with some relief. He reports a loss of appetite and reduced fluid intake. He states that he has been starving for about 30-40 days. He was at [facility] for 50 days and was discharged home 5 days ago. He was evaluated for pancreatitis. He reports that he was unable to eat while in the hospital because he did not like the taste of the hospital food. He currently complains of throat pain and right sided abdominal pain. He has shortness of breath with talking. He denies fevers, chills, chest pain, nausea, vomiting, lower extremity pain/swelling, or any other complaints. Of note while the patient was in the hospital, he was diagnosed with a acute cholecystitis and pancreatitis. He had refused any medical intervention other than pain medications and IV fluids. He states that the food was "terrible" and he couldn't eat at. Source of History: patient Onset: a few days ago Position: other (global) Symptom Intensity: severe Quality: other (weakness) Associated Symptoms: + SOB, + abdominal pain, No chest pain, No chills, No fevers, No nausea, No vomiting Review of Systems See HPI for pertinent positives & negatives. A total of 10 systems reviewed and were otherwise negative. 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 Surgical Problems: (1) Status post orchiectomy Social History Problems: (1) Pseudomonas Infect Nos (2) Syncope (3) Ulcer Of Other Part Of Lower Limb Family History No pertinent family history Social History Smoking Status: Former Smoker Alcohol Use: none Drug Use: none Housing Status: other (homeless) Occupation Status: unemployed Current/Historical Medications No Active Prescriptions or Reported Meds Allergies Coded Allergies: Horse Dander (Verified Allergy, Unknown, HORSE HAIR, 03/02/17) Tetanus Toxoid (Verified Allergy, Unknown, 03/02/17) Physical Exam Vital Signs Date Time Temp Pulse Resp B/P Pulse Ox O2 Delivery O2 Flow Rate FiO2 03/03/17 06:15 61 20 151/88 95 Room Air 03/03/17 04:30 65 20 138/77 96 Room Air 03/03/17 02:32 64 20 134/80 98 Room Air 03/03/17 00:48 60 20 106/69 96 Room Air 03/02/17 23:37 69 20 118/79 72 100/74 65/50 03/02/17 23:29 76 03/02/17 23:21 36.7 68 20 112/64 100 Room Air Physical Exam Vital signs reviewed. General chronically ill thin and frail with chronic wound and dressing to the right lower extremity. HEENT: No scleral icterus, PERRLA, neck supple. Atraumatic. Cardiovascular: Regular rate and rhythm, no extra sounds. Pulmonary: Clear to auscultation bilaterally, normal work of breathing. Abdomen: Soft, tenderness to palpation in the epigastric region, nondistended, positive bowel sounds. Musculoskeletal: Atraumatic, no peripheral edema. Neurologic: Patient awake alert and oriented x 3, full strength in all 4 extremities. Cranial nerves 2 through 12 grossly intact. Skin: Chronic wound to the right lower extremity. Gauze in place. The size of the wound seems to have diminished. Medical Decision & Procedures ER Provider Diagnostic Interpretation: X-ray results as stated below per interpretation by me: CHEST X-RAY No focal lung consolidation, no failure. Laboratory Results 03/02/17 23:40 Red Blood Count 4.91, Mean Corpuscular Volume 82.7, Mean Corpuscular Hemoglobin 27.3, Mean Corpuscular Hemoglobin Concent 33.0, Mean Platelet Volume 10.2, Neutrophils (%) (Auto) 77.7, Lymphocytes (%) (Auto) 12.9, Monocytes (%) (Auto) 5.5, Eosinophils (%) (Auto) 3.4, Basophils (%) (Auto) 0.3, Neutrophils # (Auto) 5.07, Lymphocytes # (Auto) 0.84, Monocytes # (Auto) 0.36, Eosinophils # (Auto) 0.22, Basophils # (Auto) 0.02 03/03/17 00:34 Test 03/02/17 23:40 03/02/17 23:44 03/03/17 00:34 White Blood Count 6.52 K/uL (4.8-10.8) Red Blood Count 4.91 M/uL (4.7-6.1) Hemoglobin 13.4 g/dL (14.0-18.0) Hematocrit 40.6 % (42-52) Mean Corpuscular Volume 82.7 fL (80-100) Mean Corpuscular Hemoglobin 27.3 pg (25-34) Mean Corpuscular Hemoglobin Concent 33.0 g/dl (32-36) Platelet Count 218 K/uL (130-400) Mean Platelet Volume 10.2 fL (7.4-10.4) Neutrophils (%) (Auto) 77.7 % Lymphocytes (%) (Auto) 12.9 % Monocytes (%) (Auto) 5.5 % Eosinophils (%) (Auto) 3.4 % Basophils (%) (Auto) 0.3 % Neutrophils # (Auto) 5.07 K/uL (1.4-6.5) Lymphocytes # (Auto) 0.84 K/uL (1.2-3.4) Monocytes # (Auto) 0.36 K/uL (0.11-0.59) Eosinophils # (Auto) 0.22 K/uL (0-0.5) Basophils # (Auto) 0.02 K/uL (0-0.2) RDW Standard Deviation 55.4 fL (36.4-46.3) RDW Coefficient of Variation 18.2 % (11.5-14.5) Immature Granulocyte % (Auto) 0.2 % Immature Granulocyte # (Auto) 0.01 K/uL (0.00-0.02) Magnesium Level 2.1 mg/dl (1.8-2.4) Total Bilirubin 4.4 mg/dl (0.2-1) Direct Bilirubin 3.2 mg/dl (0-0.2) Aspartate Amino Transf (AST/SGOT) 81 U/L (15-37) Alanine Aminotransferase (ALT/SGPT) 130 U/L (12-78) Alkaline Phosphatase 516 U/L (45-117) Total Creatine Kinase 45 U/L (39-308) Creatine Kinase MB < 0.5 ng/ml (0.5-3.6) Creatine Kinase MB Ratio (0-3.0) Total Protein 7.2 gm/dl (6.4-8.2) Albumin 3.0 gm/dl (3.4-5.0) Amylase Level 139 U/L (25-115) Lipase 721 U/L (73-393) Thyroid Stimulating Hormone (TSH) 5.460 uIu/ml (0.300-4.500) Bedside Troponin I 0.010 ng/ml (0-0.045) Anion Gap 9.0 mmol/L (3-11) Est Creatinine Clear Calc Drug Dose 32.2 ml/min Estimated GFR () 45.1 Estimated GFR (Non- 38.9 BUN/Creatinine Ratio 12.8 (10-20) Calcium Level 8.5 mg/dl (8.5-10.1) Laboratory results per my review. Medications Administered Medications (Trade) Dose Ordered Sig/Marilyn Route Start Time Stop Time Status Last Admin Dose Admin Sodium Chloride (Nss 1000ml) 1,000 ml @ 200 mls/hr Q5H STAT IV 03/02/17 23:27 03/03/17 04:26 DC 03/02/17 23:39 200 MLS/HR ECG Indication: weakness Rate (beats per minute): 70 Rhythm: normal sinus Findings: other (LVH; poor quality baseline for interpretation; J point elevation) ED Course 2313: Past medical records reviewed. The patient was evaluated in room B10. A complete history and physical examination was performed. 2327: Sodium Chloride 1000 ml @ 200 mls/hr IV 0420: Upon reevaluation, the patient appeared to have improvement of his symptoms. I discussed findings with him. He verbalized agreement of the treatment plan. He was discharged home. Medical Decision Differential diagnosis: Etiologies such as pancreatitis, peptic ulcer disease, metabolic, infection, hypo/hyperglycemia, electrolyte abnormalities, cardiac sources, intracerebral event, toxicologic, neurologic, as well as others were entertained. This patient was evaluated and appeared to be in no significant distress. IV access was obtained and laboratory work was drawn. Patient was placed on the front desk monitor and found to be mildly hypotensive and in a normal sinus rhythm. He was hydrated with normal saline solution. Patient's creatinine has jumped to 1.9 from a normal the previous day. I did discuss the patient's current stressors including his living situation. The patient has refused any inpatient medical test or procedure. The patient has been refused at all nursing facilities in [facility] and his insurance has denied [facility]. The patient was discharged to follow-up with a PCP. The patient has been noncompliant in the past. He will return to the ER for worsening of symptoms or any medical concerns. Impression Primary Impression: Orthostasis Additional Impressions: Renal insufficiency Cholecystitis Scribe Attestation The scribe's documentation has been prepared under my direction and personally reviewed by me in its entirety. I confirm that the note above accurately reflects all work, treatment, procedures, and medical decision making performed by me. Departure Information Dispostion Home / Self-Care Prescriptions No Active Prescriptions or Reported Meds Referrals No Doctor, Assigned (PCP) Forms HOME CARE DOCUMENTATION FORM, IMPORTANT VISIT INFORMATION Patient Instructions My [facility] Additional Instructions Diagnosis: Orthostasis Drink plenty of clear fluids. You are encouraged to follow-up with a primary care physician as soon as possible. Please use caution when changing position. Return to the ER for worsening of symptoms or any medical concerns. Problem Qualifiers
[2017-03-02 23:50] LABS: BASO % 0.3 %; BASO ABS # 0.02 K/uL (0-0.2); COMPLETE YES; EOS % 3.4 %; HEMATOCRIT 40.6 % (42-52); IG% 0.2 %; LYMPH % 12.9 %; LYMPH ABS # 0.84 K/uL (1.2-3.4); MEAN CELL VOLUME 82.7 fL (80-100); MEAN CORPUSCULAR HEMOGLOBIN 27.3 pg (25-34); MEAN PLATELET VOLUME 10.2 fL (7.4-10.4); MONO % 5.5 %; NEUT % 77.7 %; PLATELET COUNT 218 K/uL (130-400); RED BLOOD COUNT 4.91 M/uL (4.7-6.1); WHITE BLOOD COUNT 6.52 K/uL (4.8-10.8)
[2017-03-03 00:10] LABS: ALT/SGPT 130 U/L (12-78); AMYLASE 139 U/L (25-115); AST/SGOT 81 U/L (15-37); BLOOD UREA NITROGEN 23 mg/dl (7-18); BUN/CREATININE RATIO 12.1 (10-20); CALCIUM 8.9 mg/dl (8.5-10.1); CARBON DIOXIDE 27 mmol/L (21-32); CHLORIDE 104 mmol/L (98-107); GLUCOSE 94 mg/dl (70-99); MAGNESIUM 2.1 mg/dl (1.8-2.4); POTASSIUM 3.8 mmol/L (3.5-5.1); SODIUM 141 mmol/L (136-145)
[2017-03-03 00:18] LABS: ALKALINE PHOSPHATASE 516 U/L (45-117)
[2017-03-03 01:01] LABS: BUN/CREATININE RATIO 12.8 (10-20); CALCIUM 8.5 mg/dl (8.5-10.1); CREATININE 1.8 mg/dl (0.60-1.40); POTASSIUM 3.3 mmol/L (3.5-5.1)
--- NOTE | 2017-03-03 07:05 | DIAGNOSTIC IMAGING REPORT ---
CHEST ONE VIEW PORTABLE CLINICAL HISTORY: near syncope dyspnea COMPARISON STUDY: 01/03/2017 FINDINGS: The bones soft tissues and hemidiaphragms are normal. The cardiomediastinal silhouette is normal. The lungs are clear. The pulmonary vasculature is normal. IMPRESSION: Negative chest. Electronically signed by: Daniel Tyler M.D. 03/03/2017 7:03 AM Dictated Date/Time: 03/03/2017 7:03 AM
[2017-03-03 07:59] VITALS: BP 141/79; PULSE 71; O2SAT 95
== END 2017-03-03 08:00 | disposition home or self-care (01) ==
LOC: EDBD 23:09 → C.EDB 23:11
DX: I95.1 Orthostatic hypotension (principal); N28.9 Disorder of kidney and ureter, unspecified; K81.9 Cholecystitis, unspecified; I10 Essential (primary) hypertension; Z85.47 Personal history of malignant neoplasm of testis; Z86.718 Personal history of other venous thrombosis and embolism; Z87.891 Personal history of nicotine dependence

== ENCOUNTER 2019-06-15 11:18 | Inpatient (IN) ==
[~2019-06-15 11:18] MED LIST changes: +ETOMIDATE 2 MG/ML 20 ML VIAL IV ONE; -LSN10 PO; +MIDAZOLAM HCL 5 MG/ML 1 ML VIAL IV ONE; +RAPID SEQUENCE INDUCTION BAG ONE; +SUCCINYLCHOLINE CHLORIDE 20 MG/ML 10 ML VIAL IV ONE; -[UNRECOGNIZED DRUG - CODE] TD; +fentaNYL citrate 100 MCG/2 ML CARP IV ONE
--- OUTSIDE RECORDS SUMMARY | 2019-06-15 11:20 | External Medical Summary | Continuity of Care Document ---
:1950 Author Name Joseph Lundberg, Provider Address Unavailable Unavailable , Care Team Providers Name Role Phone [facility] M.Paige, Provider Unavailable [email or web address], UNKNOWN Unavailable Unavailable Problems Active medical history not documented Allergies and Adverse Reactions Allergy history not documented Medications Medications not documented Procedures Procedures not documented Immunizations Immunizations not documented Plan of Treatment Planned Observations Planned Goals not documented Results No Known Results Results not documented
[2019-06-15] MEDS ORDERED: SODIUM CHLORIDE 0.9% 1000ML 1,000 ML IV ONE (11:28)
[2019-06-15] MEDS ORDERED: PROPOFOL 1,000 MG/100 ML VIAL IV SCH (11:28)
[2019-06-15] MEDS ORDERED: PROPOFOL IV EMULSION 10 MG/ML 100 ML VIAL IV ONE (11:28)
[2019-06-15] MEDS ORDERED: MIDAZOLAM HCL 5 MG/ML 1 ML VIAL IV STA (11:40)
[2019-06-15] MEDS ORDERED: MIDAZOLAM HCL 5 MG/ML VIAL IV ONE (11:40)
[2019-06-15] MEDS ORDERED: fentaNYL citrate 100 MCG/2 ML VIAL IV STA (11:40)
[2019-06-15] MEDS ORDERED: ASPIRIN 300 MG SUPP PR ONE (11:51)
[2019-06-15 11:54] LABS: Basophils # (auto) 0.01 K/uL (0-0.2); Basophils % (auto) 0.2 %; Eosinophils # (auto) 0.04 K/uL (0-0.5); Eosinophils % (auto) 0.6 %; Hematocrit (blood only) 30.1 % (42-52); Immature Granulocytes # (auto) 0.01 K/uL (0.00-0.02); Immature Granulocytes % (auto) 0.2 %; Lymphocytes # (auto) 0.99 K/uL (1.2-3.4); Lymphocytes % (auto) 15.4 %; Mean Corpuscular Hemoglobin 29.8 pg (25-34); Mean Corpuscular Hgb Conc 33.2 g/dL (32-36); Mean Corpuscular Volume 89.6 fL (80-100); Mean Platelet Volume 9.9 fL (7.4-10.4); Monocytes # (auto) 0.29 K/uL (0.11-0.59); Monocytes % (auto) 4.5 %; Neutrophils % (auto) 79.1 %; Platelet Count 157 K/uL (130-400); Red Blood Count 3.36 M/uL (4.7-6.1); White Blood Count 6.44 K/uL (4.8-10.8)
--- NOTE | 2019-06-15 11:56 | XRay Report ---
SINGLE VIEW CHEST CLINICAL HISTORY: Intubation. FINDINGS: An AP, portable, supine chest radiograph is compared to study dated 03/19/2017 and correlate d with chest CT dated 10/28/2016. The examination is degraded by portable technique and patient rotati on. An endotracheal tube has been placed. The tip of the catheter projects 4.5 cm above the kay. A cardiac pad is in place. The heart is enlarged and there is atherosclerotic calcification of the tho racic aorta. There is prominence of the central pulmonary vessels. Emphysema with chronic interstitia l thickening/nodularity is similar to previous. Bibasilar scarring/atelectasis is identified. There i s no airspace consolidation or large pleural effusion. No pneumothorax is seen. The skeletal structur es are osteopenic. The bony thorax is grossly intact. IMPRESSION: 1. An endotracheal tube has been placed. The tip projects 4.5 cm above the kay. 2. Cardiomegaly with prominence of the central pulmonary vessels. Correlate clinically for evidence o f mild congestive failure. 3. Emphysema. 4. No airspace consolidation or large pleural effusion is identified. Electronically signed by: Mulugeta Mccabe M.D. 06/15/2019 11:55 AM
[2019-06-15 12:05] LABS: INR 1.1 (0.9-1.1); Prothrombin Time 10.8 Seconds (9.0-12.0)
[2019-06-15 12:08] LABS: iSTAT Creatinine 1.2 mg/dl (0.6-1.3); iSTAT Hemoglobin 8.8 g/dl (14.0-18.0); iSTAT Ionized Calcium 1.03 mmol/l (1.12-1.32); iSTAT Potassium 3.1 mEq/L (3.3-5.0)
[2019-06-15] MEDS ORDERED: fentaNYL citrate 100 MCG/2 ML VIAL ONE (12:09)
[2019-06-15] MEDS ORDERED: MIDAZOLAM HCL 1 MG/ML 2ML VIAL ONE (12:09)
[2019-06-15] MEDS ORDERED: HEPARIN (PORCINE) 1000 UNIT/ML 10 ML (CATH LAB USE ONLY) ONE (12:09)
[2019-06-15] MEDS ORDERED: NITROGLYCERIN/D5W 100MCG/ML 20ML SYR ONE (12:10)
[2019-06-15 12:18] LABS: Alanine Aminotransferase 35 U/L (12-78); Albumin Level 2.6 gm/dl (3.4-5.0); Aspartate Aminotransferase 51 U/L (15-37); BUN Creatinine Ratio 14.9 (10-20); Bilirubin Direct 0.1 mg/dl (0-0.2); Blood Urea Nitrogen 20 mg/dl (7-18); Calcium 7.7 mg/dl (8.5-10.1); Carbon Dioxide 15 mmol/L (21-32); Chloride 114 mmol/L (98-107); Est GFR (African American) 62.5; Est GFR (Non-African American) 53.9; Glucose 266 mg/dl (70-99); Lipase 109 U/L (73-393); Magnesium 1.7 mg/dl (1.8-2.4); Potassium 3.1 mmol/L (3.5-5.1); Sodium 142 mmol/L (136-145)
[2019-06-15 12:21] LABS: Acetaminophen < 2 ug/ml (10-30); Salicylate 4.7 mg/dl (2.8-20)
[2019-06-15 12:30] LABS: Alkaline Phosphatase 80 U/L (45-117); Bilirubin,Total 0.5 mg/dl (0.2-1); Creatine Kinase 92 U/L (39-308); Total Protein 5.8 gm/dl (6.4-8.2); Troponin I 0.541 ng/ml (0-0.045)
[2019-06-15 12:50] LABS: Appearance Urine Clear (Clear); Bacteria Urine Automated Negative (Negative); Bilirubin Urine Negative (Negative); Blood Urine 1+ (Negative); Color Urine Yellow; Epithelial Cell Urine Auto >30 /lpf (0-5); Glucose Urine UA 1+ (Negative); Ketones Urine Negative (Negative); Leukocyte Esterase Urine Negative (Negative); Nitrite Urine Negative (Negative); RBC Urine Automated 0-4 /hpf (0-4); Specific Gravity Urine 1.011 (1.000-1.030); Urobilinogen Urine Negative (Negative); pH Urine 7.5 (4.5-7.5)
[2019-06-15 12:50] LABS: T4 Free Thyroxine 1.08 ng/dl (0.8-1.6)
[2019-06-15] MEDS ORDERED: NOREPINEPHRINE BITARTRATE 1 MG/ML 4 ML VIAL (CATH LAB USE ONLY) ONE (12:53)
[2019-06-15] MEDS ORDERED: AMIODARONE 360MG / 200ML D5W (CATH LAB USE ONLY) ONE (12:54)
[2019-06-15] MEDS ORDERED: AMIODARONE 150MG / 100ML D5W (CATH LAB USE ONLY) ONE (12:54)
[2019-06-15 13:06] LABS: Protein Urine 3+ (Negative)
[2019-06-15 13:07] LABS: Cast Urine Automated 0 /lpf (0-5)
[2019-06-15 13:13] LABS: Amphetamines+Metham, Urine Neg (Neg); Barbiturates, Urine Neg (Neg); Benzodiazepine, Urine Pos (Neg); Cocaine, Urine Neg (Neg); MDMA (Ecstacy), Urine Neg (Neg); Methadone, Urine Neg (Neg); Opiate, Urine Neg (Neg); Phencyclidine, Urine Neg (Neg)
--- NOTE | 2019-06-15 13:19 | Cardiology Consultation ---
Date of Consultation June 15, 2019 Assessment & Plan (1) Acute myocardial infarction: Patient's presentation is consistent with an inferoposterior infarct. This is based on the EKG changes and associated conduction disease. Unfortunately, no history can be obtained from the patient is currently intubated and sedated. Based on the EKG findings he will be taken emergently to the cardiac catheterization laboratory for angiography. He was given aspirin rectally. Heparin was not started immediately as we anticipated a head CT for possible head trauma. There is no visible trauma to the patient's head. In the past, there has been some concern regarding compliance with medical therapy. In the past the patient has refused to take medications and follow up on a regular basis. He is noted to have significant psychiatric illness and this may complicate his his care going forward. However, at this time there appears to be a life-threatening emergency and proceed as noted above. History of Present Illness Reason for Consultation: Bradycardia, heart Requesting Physician: Rosalva History of Present Illness the patient is a 69-year-old gentleman to be homeless who apparently made a phone call to EMS for collapsing. Patient was found by EMS unresponsive, hypotensive and bradycardic. The patient was transported to our facility where he underwent infusion normal saline with improvement in his hemodynamics. He also underwent intubation and sedation with propofol. An EKG in the field suggested an element of heart block. There are also significant ST segment changes. EKG at our facility was concerning for an acute coronary event specifically and infero posterior myocardial infarction. The rhythm appeared to be atrial fibrillation. Patient is known to have a history of schizophrenia and pancreatitis. There are no records of him being in our facility since 2017 Allergies Allergy/AdvReac Type Severity Reaction Status Date / Time horse dander Allergy Unknown HORSE HAIR Verified 03/02/17 23:27 tetanus toxoid, adsorbed Allergy Unknown Verified 03/02/17 23:27 Patient History Social History Preferred Language: Maltese Smoking Status: Unknown if ever smoked Review of Systems Review of Systems: Unobtainable due to endotracheal tube Physical Exam Physical Exam: Currently intubated and sedated. Patient was agitated at times and required some additional sedation. HEENT: . The sclerae are anicteric. Neuro: Could not be obtained due to sedation Neck: Patient's neck is supple. He has palpable carotid pulses bilaterally without bruits on auscultation. There is no evidence of jugular venous distention. The thyroid is not enlarged. Lungs: Apices are clear Cardiac: Ms. irregular. No significant murmur. Pulses: The patient has palpable radial pulses bilaterally that are equal in intensity Abdomen: He did have some distended veins in the left lower abdomen. Extremities: There was no evidence of hypoperfusion. He has significant lymphedema and skin changes in the right leg. Results & Data Vital Signs (Past 12 Hours) Vital Signs Temp Pulse Resp BP Pulse Ox 06/15/19 12:30 77 16 129/105 H 80 L 06/15/19 12:21 77 16 129/105 H 80 L 06/15/19 12:15 73 12 152/101 H 83 L 06/15/19 12:10 77 16 144/99 H 86 L 06/15/19 12:08 71 16 143/103 H 83 L 06/15/19 12:05 81 14 137/101 H 72 L 06/15/19 12:00 113 H 15 145/103 H 87 L 06/15/19 11:55 85 21 162/110 H 06/15/19 11:45 75 29 H 140/101 H 06/15/19 11:40 72 26 H 147/112 H 06/15/19 11:35 65 16 132/87 06/15/19 11:32 47 L 16 105/73 06/15/19 11:28 35.1 C L 45 L 18 101/61 93 06/15/19 11:25 45 L 15 106/71 06/15/19 11:24 46 L 16 94/65 L 94 06/15/19 11:22 45 L 23 101/61 Laboratory Results Abnormal Lab Results 06/15/19 06/15/19 06/15/19 11:45 11:45 11:45 WBC 6.44 RBC 3.36 L Hgb 10.0 L POC Hgb Hct 30.1 L POC Hct MCV 89.6 MCH 29.8 MCHC 33.2 RDW Std Deviation 46.0 RDW Coeff of Dante 14.0 Plt Count 157 MPV 9.9 Immature Gran % (Auto) 0.2 Neut % (Auto) 79.1 Lymph % (Auto) 15.4 [place] % (Auto) 4.5 Eos % (Auto) 0.6 Baso % (Auto) 0.2 Immature Gran # (Auto) 0.01 Neut # (Auto) 5.10 Lymph # (Auto) 0.99 L [place] # (Auto) 0.29 Eos # (Auto) 0.04 Baso # (Auto) 0.01 PT 10.8 INR 1.1 POC Sodium Sodium 142 POC Potassium Potassium 3.1 L POC Chloride Chloride 114 H Carbon Dioxide 15 L POC Total CO2 Anion Gap 13.0 H POC Anion Gap POC BUN BUN 20 H Creatinine 1.35 POC Creatinine Est Cr Clr Drug Dosing Not Reportable Est GFR ( Amer) 62.5 Est GFR (Non-Af Amer) 53.9 BUN/Creatinine Ratio 14.9 Glucose 266 H POC Glucose (other) Lactate Calcium 7.7 L POC Ioniz Calcium Tank Magnesium 1.7 L Total Bilirubin 0.5 Direct Bilirubin 0.1 AST 51 H ALT 35 Alkaline Phosphatase 80 Total Creatine Kinase 92 Troponin I 0.541 H* Total Protein 5.8 L Albumin 2.6 L Lipase 109 TSH 35.800 H Free T4 1.08 Urine Color Urine Appearance Urine pH Ur Specific [place] Urine Protein Urine Glucose (UA) Urine Ketones Urine Blood Urine Nitrite Urine Bilirubin Urine Urobilinogen Ur Leukocyte Esterase Urine WBC (Auto) Urine RBC (Auto) U Hyaline Cast (Auto) U Epithel Cells (Auto) Urine Bacteria (Auto) Ur Renal Epithelial Cell Salicylates Urine Opiates Screen Ur Methadone, Qual Acetaminophen Urine Barbiturates Ur Phencyclidine (PCP) U Amphetamin/Meth Scrn MDMA (Ecstasy) Screen U Benzodiazepines Scrn Ur Cocaine Metabolite U Marijuana (THC) Screen Ethyl Alcohol mg/dL 06/15/19 06/15/19 06/15/19 11:45 11:53 12:01 WBC RBC Hgb POC Hgb 8.8 L Hct POC Hct 26 L MCV MCH MCHC RDW Std Deviation RDW Coeff of Dante Plt Count MPV Immature Gran % (Auto) Neut % (Auto) Lymph % (Auto) [place] % (Auto) Eos % (Auto) Baso % (Auto) Immature Gran # (Auto) Neut # (Auto) Lymph # (Auto) [place] # (Auto) Eos # (Auto) Baso # (Auto) PT INR POC Sodium 140 Sodium POC Potassium 3.1 L Potassium POC Chloride 110 Chloride Carbon Dioxide POC Total CO2 15 L Anion Gap POC Anion Gap 18.0 POC BUN 20 H BUN Creatinine POC Creatinine 1.2 Est Cr Clr Drug Dosing Est GFR ( Amer) Est GFR (Non-Af Amer) BUN/Creatinine Ratio Glucose POC Glucose (other) 271 H Lactate 3.0 H* Calcium POC Ioniz Calcium Tank 1.03 L Magnesium Total Bilirubin Direct Bilirubin AST ALT Alkaline Phosphatase Total Creatine Kinase Troponin I Total Protein Albumin Lipase TSH Free T4 Urine Color Urine Appearance Urine pH Ur Specific [place] Urine Protein Urine Glucose (UA) Urine Ketones Urine Blood Urine Nitrite Urine Bilirubin Urine Urobilinogen Ur Leukocyte Esterase Urine WBC (Auto) Urine RBC (Auto) U Hyaline Cast (Auto) U Epithel Cells (Auto) Urine Bacteria (Auto) Ur Renal Epithelial Cell Salicylates 4.7 Urine Opiates Screen Ur Methadone, Qual Acetaminophen < 2 L Urine Barbiturates Ur Phencyclidine (PCP) U Amphetamin/Meth Scrn MDMA (Ecstasy) Screen U Benzodiazepines Scrn Ur Cocaine Metabolite U Marijuana (THC) Screen Ethyl Alcohol mg/dL 06/15/19 06/15/19 06/15/19 12:01 12:30 12:30 WBC RBC Hgb POC Hgb Hct POC Hct MCV MCH MCHC RDW Std Deviation RDW Coeff of Dante Plt Count MPV Immature Gran % (Auto) Neut % (Auto) Lymph % (Auto) [place] % (Auto) Eos % (Auto) Baso % (Auto) Immature Gran # (Auto) Neut # (Auto) Lymph # (Auto) [place] # (Auto) Eos # (Auto) Baso # (Auto) PT INR POC Sodium Sodium POC Potassium Potassium POC Chloride Chloride Carbon Dioxide POC Total CO2 Anion Gap POC Anion Gap POC BUN BUN Creatinine POC Creatinine Est Cr Clr Drug Dosing Est GFR ( Amer) Est GFR (Non-Af Amer) BUN/Creatinine Ratio Glucose POC Glucose (other) Lactate Calcium POC Ioniz Calcium Takn Magnesium Total Bilirubin Direct Bilirubin AST ALT Alkaline Phosphatase Total Creatine Kinase Troponin I Total Protein Albumin Lipase TSH Free T4 Urine Color Yellow Urine Appearance Clear Urine pH 7.5 Ur Specific [place] 1.011 Urine Protein 3+ H Urine Glucose (UA) 1+ H Urine Ketones Negative Urine Blood 1+ H Urine Nitrite Negative Urine Bilirubin Negative Urine Urobilinogen Negative Ur Leukocyte Esterase Negative Urine WBC (Auto) 1-5 Urine RBC (Auto) 0-4 U Hyaline Cast (Auto) 0 U Epithel Cells (Auto) >30 H Urine Bacteria (Auto) Negative Ur Renal Epithelial Cell Not Reportable Salicylates Urine Opiates Screen Neg Ur Methadone, Qual Neg Acetaminophen Urine Barbiturates Neg Ur Phencyclidine (PCP) Neg U Amphetamin/Meth Scrn Neg MDMA (Ecstasy) Screen Neg U Benzodiazepines Scrn Pos H Ur Cocaine Metabolite Neg U Marijuana (THC) Screen Neg Ethyl Alcohol mg/dL < 3.0 Diagnostic Findings Chest x-ray obtained at the time of admission did not reveal any acute cardiopulmonary process ECG Additional Comments: EKG appears to be atrial fibrillation with inferoposterior injury pattern
--- NOTE | 2019-06-15 13:24 | History & Physical Report ---
Date of Service June 15, 2019 Assessment & Plan (1) Acute GA inferior lateral first episode care: (2) Respiratory failure with hypoxia: (3) History of testicular cancer: (4) Lymphedema of right lower extremity: (5) Metabolic acidosis: (6) Atrial fibrillation: (7) Hyperglycemia: (8) Hypocalcemia: (9) Hypokalemia: (10) Anemia: (11) History of DVT of lower extremity: (12) HTN (hypertension): (13) Hypothyroidism: (14) Status post orchiectomy: Patient will be admitted to the ICU, consult with the critical care team, cardiology is involved, he was given amiodarone, aspirin, heparin, he is sedated on the vent, was given IV fluids and Brilinta. I just received a call that he h ad a stent placed in his left circumflex, and he is on amiodarone drip and is back in normal sinus rhythm. We will monitor daily labs especially his blood sugars, and treat his acidosis. Total critical care time 90 minutes ROS-offers no history Physical Exam Gen-vented and sedated, disheveled Head-NCAT, Anicteric Sclera, intubated Neck-No JVD, No Thyromegaly, No Masses, No LAD, No Bruits Lungs-Clear to Auscultation Bilaterally, No Rales, No Rhonchi, No Wheezing, No C repitus Chest-irregularly irregular, with runs of nonsustained V. tach no S4, +S1, +S2, No S3, No Murmurs, No Rubs, No Gallops, positive ectopy Abdomen-Soft, Bowel Sounds Present, Non Tender, Non Distended, No Hepatomegaly, No Splenomegaly, No Palpable Masses, No Rebound, No Rigidity, No Guarding Musculoskeletal-Full Range of Motion Bilaterally, No CVAT Extremities-Severe lymphedema with an ulcer in the right lower extremity, left lower extremity no cyanosis clubbing or edema Nuero-Cranial Nerves II-XII grossly intact, Non Focal Psych-vented and sedated History of Present Illness 69-year-old male with a past medical history of schizophrenia, hypertension, DVT, lymphedema in the right lower extremity, testicular cancer, tobacco use, pancreatitis, acute kidney injury, and cellulitis was in the [employer] [facility] in [place], he is a homeless person. According to witnesses he did not feel right and called 911 when he got to the scene he was unresponsive he was intubated and brought into the emergency room. When I got to his bedside he was sedated and intubated and offered no history. Past medical historyschizophrenia, hypertension, DVT, elephantiasis, lymphedema left lower extremity, testicular cancer, tobacco use, cryptitis, acute kidney injury, cellulitis Past surgical historyGU procedures Family historyhypertension, coronary artery disease Social+Tobacco, Homeless Primary Care Provider: NO PCP Allergies Allergy/AdvReac Type Severity Reaction Status Date / Time horse dander Allergy Unknown HORSE HAIR Verified 03/02/17 23:27 tetanus toxoid, adsorbed Allergy Unknown Verified 03/02/17 23:27 Past Med/Surg History Social History Preferred Language: Hebrew Smoking Status: Unknown if ever smoked Results & Data Vital Signs (Past 12 Hours) Vital Signs Temp Pulse Resp BP Pulse Ox 06/15/19 12:30 77 16 129/105 H 80 L 06/15/19 12:21 77 16 129/105 H 80 L 06/15/19 12:15 73 12 152/101 H 83 L 06/15/19 12:10 77 16 144/99 H 86 L 06/15/19 12:08 71 16 143/103 H 83 L 06/15/19 12:05 81 14 137/101 H 72 L 06/15/19 12:00 113 H 15 145/103 H 87 L 06/15/19 11:55 85 21 162/110 H 06/15/19 11:45 75 29 H 140/101 H 06/15/19 11:40 72 26 H 147/112 H 06/15/19 11:35 65 16 132/87 06/15/19 11:32 47 L 16 105/73 06/15/19 11:28 35.1 C L 45 L 18 101/61 93 06/15/19 11:25 45 L 15 106/71 06/15/19 11:24 46 L 16 94/65 L 94 06/15/19 11:22 45 L 23 101/61 Allergies horse dander Allergy (Unknown, Verified 03/02/17 23:27) HORSE HAIR tetanus toxoid, adsorbed Allergy (Unknown, Verified 03/02/17 23:27) Height/Weight/Isolation Weight 70.6 kg Chemistry 06/15/19 11:45 Sodium 142 Potassium 3.1 L Chloride 114 H Carbon Dioxide 15 L Anion Gap 13.0 H BUN 20 H Creatinine 1.35 Glucose 266 H Urinalysis 06/15/19 12:30 Urine Color Yellow Urine Appearance Clear Urine pH 7.5 Ur Specific [place] 1.011 Urine Protein 3+ H Urine Glucose (UA) 1+ H Urine Ketones Negative Urine Blood 1+ H Urine Nitrite Negative Urine Bilirubin Negative Microbiology 06/15/19 12:01 Blood Aerobic Blood Culture - Pending 06/15/19 12:01 Blood Anaerobic Blood Culture - Pending
--- NOTE | 2019-06-15 13:38 | Cardiac Catheterization ---
Cardiac Cath Procedure Full Procedure Date June 15, 2019 Pre-Procedure Diagnosis Pre-Procedure Diagnosis: STEMI AUC Score AUC Score: 9 Post-Procedure Diagnosis Post-Procedure Diagnosis: Severe CAD, Successful PCI and Normal Intracardiac Pressures Procedure(s) Performed Procedure(s) Performed: Coronary Angiography, Left Heart Cath, Drug Eluting Stent and Defibrillation Laundry Attendant Oni Jansen MD Welt Cutter(s) Glunt Estimated Blood Loss Estimated Blood Loss: 15 Medication(s) Medication(s): Heparin, Lidocaine 1% and Nicardipine Medication(s): Ticagrelor Summary of Findings Indication: STEMI/Heart Alert Access: 6 Fr right radial artery Catheters: Ikari 3.5 guide Findings: LM - Large caliber vessel, lumianl irregularities. LAD -large caliber vessel that wraps around apex, 20 to 30% proximal disease, diffuse mid segment disease up to 60% at takeoff of small second diagonal, mild diffuse distal disease. Very small first diagonal subtotally occluded. Circumflex -large caliber vessel, mild proximal disease prior to aneurysmal mid segment. 100% acute occlusion after aneurysm. RCA -small to moderate caliber, dominant, chronically occluded the mid segment with partial filling of distal vessel via left to right collaterals LVEDP -15 -- PCI -- Antithrombotic therapy: Heparin, ticagrelor Procedure: Left main cannulated with [place] 3.5 guide Prosthetic Technician 50 wire passed across lesion into large OM 2 Mid circumflex lesion predilated with 2.5 compliant balloon Second pilot plant supervisor 50 wire passed into distal PLB Mid circumflex into PLB dilated with 2.5 compliant balloon Dilated lesion stented with 2.75 x 18 mm integrity bare-metal stent extending from aneurysm into large OM 2 Stent post-dilated with 3.25 noncompliant balloon IC vasodilators administered for spasm Post procedure JACKELINE 3 flow, stent well expanded with minimal residual stenosis, mild residual stenosis in distal circumflex at takeoff from stent with JACKELINE-3 flow into PLB. No apparent coronary complications. Intraprocedure course complicated by episode of VF requiring defibrillation x1. Loaded with amiodarone. Required minimal norepinephrine support. Arterial Closure: TR band Summary: 1. Inferior STEMI/Occluded mid circumflex 2. Chronic occluded mid RCA with left to right collaterals 3. Moderate 50-60% mid LAD 4. Intraprocedure VF requiring defibrillation 5. Atrial fibrillation 6. Normal intracardiac filling pressure 7. Successful PCI of mid circumflex extending from aneurysmal segment into large OM2 with single bare metal stent (2.75 x 18 mm integrity; postdilated with 3.25 NC). Recommendations: Admit to ICU for continued monitoring Loaded with ticagrelor 180 mg in photo lab specialist Continue dual-antiplatelet therapy for at least 1 year. Likely transition to clopidogrel prior to discharge Trend troponins until peak, Check Echo High-dose statin Consult cardiac Rehab Hemodynamics Rest Ao:: 122/73/96 Final Ao: 96/54/68 LV: 78/15 Recommendations Recommendations: PCI without planned CABG Specimens Specimens: None Radiation Exposure (mGy) 1948 Fluids (cc crystalloids) Fluids (cc crystalloids): 160 Drains Drains: none Anesthesia propofol Procedural Complication(s) None Disposition ICU ACC Data: Skid Machine Operator Cardiac Status Clinical evaluation leading to the procedure CAD Presenation: STEMI Anginal Classification: CCS IV Heart Failure: No Cardiogenic Shock within 24 Hours: No Cardiac Arrest within 24 Hours: Yes Imaging Studies Past 6 Months: No Stress Studies Past 6 Months: No Diagnostic Physicians Name: Oni Jansen MD Status: Emergency Closure Device Percutaneous Entry Location: Radial Closure Device: Radial Band Recommendations: PCI without planned CABG PCI Indication: Immediate PCI for STEMI First Noted: Subsequent EKG Reason For Delay in PCI:: Cardiac Arrest &/or Lesion Segment Name: mid circumflex Culprit Artery: Yes Stenosis Prior to Rx (%): 100 Chronic Total Occlusion: No IVUS: No FFR: No Pre-Procedure JACKELINE Flow: 0 Previously Treated Lesion: No Lesion Complexity: High/C Lesion Length (mm): 15 Thrombus Present: Yes Bifurcation Lesion: Yes Guidewire Across Lesion: Stenosis Post-Procedure (%): 0 Post-Procedure JACKELINE Flow: 3 Devices(s) Deployed: Yes Yes Intraprocedure Events Significant Disection: No Perforation: No
[2019-06-15] MEDS: TICAGRELOR 90 MG TAB PO ONE ×2 (13:50→15:03)
[2019-06-15] MEDS ORDERED: AMIODARONE / D5W 360 MG/200 ML BAG IV STA (13:55)
[2019-06-15] MEDS ORDERED: NOREPINEPHRINE BIT INJ 8 MG in DEXTROSE 5% 500 ML IV PRN (13:55)
[2019-06-15] MEDS ORDERED: GLUCOSE 10 TABS/TUBE PO PRN (14:32)
[2019-06-15] MEDS ORDERED: GLUCOSE 40% GEL 15 GM TUBE PO PRN (14:32)
[2019-06-15] MEDS ORDERED: CARBOHYDRATES FOR HYPOGLYCEMIA PO PRN (14:32)
[2019-06-15] MEDS ORDERED: ICU PROTOCOL FOR HYPERGLYCEMIA PRN (14:32)
[2019-06-15] MEDS ORDERED: GLUCAGON FOR INJ 1 MG VIAL SQ PRN (14:32)
--- NOTE | 2019-06-15 14:49 | Emergency Department Note ---
Entered by Anamaria Parekh acting as a scribe for Agustin Blackwell MD ED Provider Note Name: Mendoza Masterson Age: 69 Arrives Via: Ambulance Informant: EMT CC: Unresponsive HPI: A 69 year old male arrives for evaluation after being found unresponsive via EMS. EMS reports they administered atropine that did not resolve symptoms. EMS states that the patient called 911 from the [facility]. EMS reports that he went unresponsive during the call, and they found him in the bathroom with vomit all over and unresponsive. On route, EMS notes that he has been semi- responsive at most, and EMS also notes his sugar level was at 223. The HPI is limited due to the patient being unresponsive. ROS: See above HPI for pertinent positives & negatives. A total of 10 systems re viewed and were otherwise negative. Past Medical History: Lymphedema of right lower extremity, testicular cancer, hypertension, DVT, hypothyroidism, cellulitis, pancreatitis, adenomatous polyp of colon Past Surgical History: Orchiectomy Family History: No significant family history. Social History: Homeless Home Medications: Unknown. Allergies Tetanus toxoid, absorbed Physical: Vitals: BP 129/105. Pulse 77. Resp 16. Temp 35.1. O2 Sat 80. Mechanical Vent Exam: GENERAL: Patient is obtunded. Disheveled, covered in vomit and stool. Unresponsive with weak movements of arms periodically. EYES: No scleral icterus, sluggish pupils. ENT: Mucous membranes dry, vomit in bilateral nares. Vomit in posterior pharynx NECK: No masses appreciated, no meningismus, trachea is midline. RESPIRATORY: Shallow respirations, mild crackles without wheezing, equal bilaterally CARDIOVASCULAR: Bradycardia, irregular. No murmurs, rubs, gallops appreciated. GASTROINTESTINAL: Abdomen soft, non-tender, no peritonitis. Bowel sounds positive. No masses appreciated. BACK: No midline tenderness, no CVA tenderness EXTREMITIES: Bilateral severe lymphedema legs, weak movement arms, pulses intact in arms, difficulty feeling in feet though cap refill intact. NEUROLOGIC: Obtunded, GCS 4, weakly moves arms. SKIN: No rash, no jaundice, no diaphoresis. ED Course: Prior Medical Record, Triage/Nursing Notes, Medications, Allergies reviewed by Me Vital Signs: reviewed and remarkable for hypoxia, hypotension Labs: Reviewed and remarkable for +trop, + la, low orlin, anemia, unremarkable BMP Interventions: Saline Lock, NSS bolus Imaging: Radiology results as stated below per my review and the radiologist's interpretation: SINGLE VIEW CHEST CLINICAL HISTORY: Intubation. FINDINGS: An AP, portable, supine chest radiograph is compared to study dated 03/19/2017 and correlated with chest CT dated 10/28/2016. The examination is degraded by portable technique and patient rotation. An endotracheal tube has been placed. The tip of the catheter projects 4.5 cm above the kay. A cardiac pad is in place. The heart is enlarged and there is atherosclerotic calcification of the thoracic aorta. There is prominence of the central pulmonary vessels. Emphysema with chronic interstitial thickening/nodularity is similar to previous. Bibasilar scarring/atelectasis is identified. There is no airspace consolidation or large pleural effusion. No pneumothorax is seen. The skeletal structures are osteopenic. The bony thorax is grossly intact. IMPRESSION: 1. An endotracheal tube has been placed. The tip projects 4.5 cm above the kay. 2. Cardiomegaly with prominence of the central pulmonary vessels. Correlate clinically for evidence of mild congestive failure. 3. Emphysema. 4. No airspace consolidation or large pleural effusion is identified. Electronically signed by: Mulugeta Mccabe M.D. 06/15/2019 11:55 AM EKG: Course: 1123: Past medical records reviewed. The patient was evaluated in room A1. A complete history and physical exam was performed. 1144: Dr. Carter and I are at bedside and both agree that intervention is best option. Heart alert called. 1203: I discussed the case with Dr. Alanis-Shovel Operator, who was made aware of the plan. I also discussed the case with Riri. Dr. Britt-Hospitalist Riri will further evaluate the patient. Procedures: Endotracheal Intubation Indication Respiratory failure, airway protection. The patient was on 100% oxygen via NRB prior to the procedure. Suction, airway equipment, RSI drugs, respiratory equipment, and appropriate personnel were prepared prior to the initiation of the procedure. A time out was taken. Induction was performed with Etomidate & Succinylcholine. After observing the clinical benefit of the medications, the airway was easily visualized utilizing a #3 Glidescope. A 7.5 size ETT tube was placed atraumatically to 24 cm using standard technique. The cuff inflated without signs of malfunction. There were bilateral breath sounds, positive colormetric change, no gastric sounds, a good capnography waveform, and post procedure pulse oximetry was 85%. Post intubation sedation and paralysis was administered using Propofol, versed, fentanyl. There were no complications. Blood pressure: hypotension. No Referral necessary Disposition: Taken To Stage Electrician Differentials: ACS, PE, Dissection, ICH/Mass, Stroke, Electrolyte, Overdose, I nfectious, amongst other pathologies. Medical Decision Making: Chronically unwell 69 yr old male with history thyroid disorder, lymphedema, HTN, DVT arrives obtunded with complete heart block. With atropine and pacing prior to arrival he has improved BP. Given further fluids on arrival and BP stable without need to pace and EKG looks more Afib jonathan at this time than he art block. He is obtunded, vomit in airway, and clearly needs airway protection. Intubated without issue though will not that some vomit was suctioned from airway prior to intubation. Initial electrolytes OK and thus after discussion with Cards at bedside will take emergently to central lab technician for further evaluation as high concern for ACS. Will note CXR with mild high tube though I do not feel repositioning necessary at this time. Cultures obtained but without clear evidence sepsis would not start abx at this time. Reviewed concern for aspiration as well given vomit noted in airway on intubation but CXR looks alright for now. Multiple other labs pending. He has history of DVT though EKG looks more related heart block/fib/inferior IA. Difficulty obtaining O2 sats, though abg actually looks pretty good. No report of overdose, nor intentional reason for this event. His BP remains stable throughout. Taken to central lab technician for further evaluation and management. I did make ICU and Hospitalist aware of patient and story. Impression: Complete Heart Block Acute Respiratory Distress Altered Mental Status Acute Coronary Syndrome Aspiration into airway Critical Care Time: I have personally spent greater than 45 minutes of critical care time in the direct management of this patient. Obtunded patient requiring intubation with afib/heart block and taken to central lab technician for ACS. This was a life/limb threatening event. This includes time spent evaluating patient, direct bedside care, chart review, placing orders, interpretation of diagnostic studies, discussion with consultants, patient, and family members, as well as other required patient management activities. This 45 minutes is in excess of all separately billable procedures. The scribe's documentation has been prepared under my direction and personally reviewed by me in its entirety. I confirm that the note above accurately reflects all work, treatment, procedures, and medical decision making performed by me. Agustin Blackwell MD Impression & Plan Complete heart block, Acute respiratory distress, Altered mental status, Acute coronary syndrome, Aspiration into airway Past Med/Surg History Social History Preferred Language: [place] Communication Ability: Effective Beliefs That Will Affect Care: None Current Living Situation: Homeless Feels Safe at Home: Hesitant to Answer Smoking Status: Never smoker Hx Alcohol Use: No Hx Substance Use: No Results & Data Vital Signs Vital Signs - 24 hr 06/15/19 11:22 06/15/19 11:24 06/15/19 11:25 Temperature Temperature Source Sepsis Recent Fever Within 48 Hours Sepsis New/Unexplained Change in Mental Status Sepsis Action Taken by Nursing Pulse Rate 45 L 46 L 45 L Pulse Rate from SpO2 Sensor 47 L Respiratory Rate 23 16 15 Respiratory Effort / Characteristics Respiratory Depth Respiratory Pattern Blood Pressure 101/61 94/65 L 106/71 Blood Pressure Mean 74 74 82 Pulse Oximetry 94 Oxygen Delivery Method Room Air Fraction of Inspired Oxygen 06/15/19 11:28 06/15/19 11:32 06/15/19 11:35 Temperature 35.1 C L Temperature Source Oral Sepsis Recent Fever Within 48 Hours No Sepsis New/Unexplained Change in Mental Status No Sepsis Action Taken by Nursing No Action Required Pulse Rate 45 L 47 L 65 Pulse Rate from SpO2 Sensor 47 L Respiratory Rate 18 16 16 Respiratory Effort / Characteristics Non-Labored Respiratory Depth Normal Respiratory Pattern Regular Blood Pressure 101/61 105/73 132/87 Blood Pressure Mean 74 83 102 Pulse Oximetry 93 Oxygen Delivery Method Room Air Fraction of Inspired Oxygen 06/15/19 11:40 06/15/19 11:45 06/15/19 11:55 Temperature Temperature Source Sepsis Recent Fever Within 48 Hours Sepsis New/Unexplained Change in Mental Status Sepsis Action Taken by Nursing Pulse Rate 72 75 85 Pulse Rate from SpO2 Sensor 141 H Respiratory Rate 26 H 29 H 21 Respiratory Effort / Characteristics Respiratory Depth Respiratory Pattern Blood Pressure 147/112 H 140/101 H 162/110 H Blood Pressure Mean 123 114 127 Pulse Oximetry Oxygen Delivery Method Fraction of Inspired Oxygen 100 06/15/19 12:00 06/15/19 12:05 06/15/19 12:08 Temperature Temperature Source Sepsis Recent Fever Within 48 Hours Sepsis New/Unexplained Change in Mental Status Sepsis Action Taken by Nursing Pulse Rate 113 H 81 71 Pulse Rate from SpO2 Sensor 164 H 163 H 163 H Respiratory Rate 15 14 16 Respiratory Effort / Characteristics Respiratory Depth Respiratory Pattern Blood Pressure 145/103 H 137/101 H 143/103 H Blood Pressure Mean 117 113 116 Pulse Oximetry 87 L 72 L 83 L Oxygen Delivery Method Mechanical Vent Mechanical Vent Mechanical Vent Fraction of Inspired Oxygen 06/15/19 12:10 06/15/19 12:15 06/15/19 12:21 Temperature Temperature Source Sepsis Recent Fever Within 48 Hours Sepsis New/Unexplained Change in Mental Status Sepsis Action Taken by Nursing Pulse Rate 77 73 77 Pulse Rate from SpO2 Sensor 164 H 159 H 169 H Respiratory Rate 16 12 16 Respiratory Effort / Characteristics Respiratory Depth Respiratory Pattern Blood Pressure 144/99 H 152/101 H 129/105 H Blood Pressure Mean 114 118 113 Pulse Oximetry 86 L 83 L 80 L Oxygen Delivery Method Mechanical Vent Mechanical Vent Mechanical Vent Fraction of Inspired Oxygen 06/15/19 12:30 Temperature Temperature Source Sepsis Recent Fever Within 48 Hours Sepsis New/Unexplained Change in Mental Status Sepsis Action Taken by Nursing Pulse Rate 77 Pulse Rate from SpO2 Sensor Respiratory Rate 16 Respiratory Effort / Characteristics Respiratory Depth Respiratory Pattern Blood Pressure 129/105 H Blood Pressure Mean Pulse Oximetry 80 L Oxygen Delivery Method Mechanical Vent Fraction of Inspired Oxygen Laboratory Data Result diagrams: 06/15/19 11:45 06/15/19 15:10 Lab Results 06/15/19 06/15/19 06/15/19 Range/Units 11:45 11:45 11:45 WBC 6.44 (4.8-10.8) K/uL RBC 3.36 L (4.7-6.1) M/uL Hgb 10.0 L (14.0-18.0) g/dL POC Hgb (14.0-18.0) g/dl Hct 30.1 L (42-52) % POC Hct (42-52) % MCV 89.6 (80-100) fL MCH 29.8 (25-34) pg MCHC 33.2 (32-36) g/dL RDW Std Deviation 46.0 (36.4-46.3) fL RDW Coeff of Dante 14.0 (11.5-14.5) % Plt Count 157 (130-400) K/uL MPV 9.9 (7.4-10.4) fL Immature Gran % (Auto) 0.2 % Neut % (Auto) 79.1 % Lymph % (Auto) 15.4 % [place] % (Auto) 4.5 % Eos % (Auto) 0.6 % Baso % (Auto) 0.2 % Immature Gran # (Auto) 0.01 (0.00-0.02) K/uL Neut # (Auto) 5.10 (1.4-6.5) K/uL Lymph # (Auto) 0.99 L (1.2-3.4) K/uL [place] # (Auto) 0.29 (0.11-0.59) K/uL Eos # (Auto) 0.04 (0-0.5) K/uL Baso # (Auto) 0.01 (0-0.2) K/uL PT 10.8 (9.0-12.0) Seconds INR 1.1 (0.9-1.1) POC Sodium (135-144) mEq/L Sodium 142 (136-145) mmol/L POC Potassium (3.3-5.0) mEq/L Potassium 3.1 L (3.5-5.1) mmol/L POC Chloride (101-112) mEq/L Chloride 114 H (98-107) mmol/L Carbon Dioxide 15 L (21-32) mmol/L POC Total CO2 (24-31) mEq/l Anion Gap 13.0 H (3-11) POC Anion Gap (16-25) mmol/L POC BUN (7-18) mg/dl BUN 20 H (7-18) mg/dl Creatinine 1.35 (0.6-1.4) mg/dl POC Creatinine (0.6-1.3) mg/dl Est Cr Clr Drug Dosing Not Reportable Est GFR ( Amer) 62.5 Est GFR (Non-Af Amer) 53.9 BUN/Creatinine Ratio 14.9 (10-20) Glucose 266 H (70-99) mg/dl POC Glucose (other) (70-99) mg/dl Lactate (0.4-2.0) mmol/L Calcium 7.7 L (8.5-10.1) mg/dl POC Ioniz Calcium Tank (1.12-1.32) mmol/l Magnesium 1.7 L (1.8-2.4) mg/dl Total Bilirubin 0.5 (0.2-1) mg/dl Direct Bilirubin 0.1 (0-0.2) mg/dl AST 51 H (15-37) U/L ALT 35 (12-78) U/L Alkaline Phosphatase 80 (45-117) U/L Total Creatine Kinase 92 (39-308) U/L Troponin I 0.541 H* (0-0.045) ng/ml Total Protein 5.8 L (6.4-8.2) gm/dl Albumin 2.6 L (3.4-5.0) gm/dl Lipase 109 (73-393) U/L TSH 35.800 H (0.300-4.500) uIu/ml Free T4 1.08 (0.8-1.6) ng/dl Urine Color Urine Appearance (Clear) Urine pH (4.5-7.5) Ur Specific [place] (1.000-1.030) Urine Protein (Negative) Urine Glucose (UA) (Negative) Urine Ketones (Negative) Urine Blood (Negative) Urine Nitrite (Negative) Urine Bilirubin (Negative) Urine Urobilinogen (Negative) Ur Leukocyte Esterase (Negative) Urine WBC (Auto) (0-5) /hpf Urine RBC (Auto) (0-4) /hpf U Hyaline Cast (Auto) (0-5) /lpf U Epithel Cells (Auto) (0-5) /lpf Urine Bacteria (Auto) (Negative) Ur Renal Epithelial Cell Salicylates (2.8-20) mg/dl Urine Opiates Screen (Neg) Ur Methadone, Qual (Neg) Acetaminophen (10-30) ug/ml Urine Barbiturates (Neg) Ur Phencyclidine (PCP) (Neg) U Amphetamin/Meth Scrn (Neg) MDMA (Ecstasy) Screen (Neg) U Benzodiazepines Scrn (Neg) Ur Cocaine Metabolite (Neg) U Marijuana (THC) Screen (Neg) Ethyl Alcohol mg/dL (0-3) mg/dl 06/15/19 06/15/19 06/15/19 Range/Units 11:45 11:53 12:01 WBC (4.8-10.8) K/uL RBC (4.7-6.1) M/uL Hgb (14.0-18.0) g/dL POC Hgb 8.8 L (14.0-18.0) g/dl Hct (42-52) % POC Hct 26 L (42-52) % MCV (80-100) fL MCH (25-34) pg MCHC (32-36) g/dL RDW Std Deviation (36.4-46.3) fL RDW Coeff of Dante (11.5-14.5) % Plt Count (130-400) K/uL MPV (7.4-10.4) fL Immature Gran % (Auto) % Neut % (Auto) % Lymph % (Auto) % [place] % (Auto) % Eos % (Auto) % Baso % (Auto) % Immature Gran # (Auto) (0.00-0.02) K/uL Neut # (Auto) (1.4-6.5) K/uL Lymph # (Auto) (1.2-3.4) K/uL [place] # (Auto) (0.11-0.59) K/uL Eos # (Auto) (0-0.5) K/uL Baso # (Auto) (0-0.2) K/uL PT (9.0-12.0) Seconds INR (0.9-1.1) POC Sodium 140 (135-144) mEq/L Sodium (136-145) mmol/L POC Potassium 3.1 L (3.3-5.0) mEq/L Potassium (3.5-5.1) mmol/L POC Chloride 110 (101-112) mEq/L Chloride (98-107) mmol/L Carbon Dioxide (21-32) mmol/L POC Total CO2 15 L (24-31) mEq/l Anion Gap (3-11) POC Anion Gap 18.0 (16-25) mmol/L POC BUN 20 H (7-18) mg/dl BUN (7-18) mg/dl Creatinine (0.6-1.4) mg/dl POC Creatinine 1.2 (0.6-1.3) mg/dl Est Cr Clr Drug Dosing Est GFR ( Amer) Est GFR (Non-Af Amer) BUN/Creatinine Ratio (10-20) Glucose (70-99) mg/dl POC Glucose (other) 271 H (70-99) mg/dl Lactate 3.0 H* (0.4-2.0) mmol/L Calcium (8.5-10.1) mg/dl POC Ioniz Calcium Tank 1.03 L (1.12-1.32) mmol/l Magnesium (1.8-2.4) mg/dl Total Bilirubin (0.2-1) mg/dl Direct Bilirubin (0-0.2) mg/dl AST (15-37) U/L ALT (12-78) U/L Alkaline Phosphatase (45-117) U/L Total Creatine Kinase (39-308) U/L Troponin I (0-0.045) ng/ml Total Protein (6.4-8.2) gm/dl Albumin (3.4-5.0) gm/dl Lipase (73-393) U/L TSH (0.300-4.500) uIu/ml Free T4 (0.8-1.6) ng/dl Urine Color Urine Appearance (Clear) Urine pH (4.5-7.5) Ur Specific [place] (1.000-1.030) Urine Protein (Negative) Urine Glucose (UA) (Negative) Urine Ketones (Negative) Urine Blood (Negative) Urine Nitrite (Negative) Urine Bilirubin (Negative) Urine Urobilinogen (Negative) Ur Leukocyte Esterase (Negative) Urine WBC (Auto) (0-5) /hpf Urine RBC (Auto) (0-4) /hpf U Hyaline Cast (Auto) (0-5) /lpf U Epithel Cells (Auto) (0-5) /lpf Urine Bacteria (Auto) (Negative) Ur Renal Epithelial Cell Salicylates 4.7 (2.8-20) mg/dl Urine Opiates Screen (Neg) Ur Methadone, Qual (Neg) Acetaminophen < 2 L (10-30) ug/ml Urine Barbiturates (Neg) Ur Phencyclidine (PCP) (Neg) U Amphetamin/Meth Scrn (Neg) MDMA (Ecstasy) Screen (Neg) U Benzodiazepines Scrn (Neg) Ur Cocaine Metabolite (Neg) U Marijuana (THC) Screen (Neg) Ethyl Alcohol mg/dL (0-3) mg/dl 06/15/19 06/15/19 06/15/19 Range/Units 12:01 12:30 12:30 WBC (4.8-10.8) K/uL RBC (4.7-6.1) M/uL Hgb (14.0-18.0) g/dL POC Hgb (14.0-18.0) g/dl Hct (42-52) % POC Hct (42-52) % MCV (80-100) fL MCH (25-34) pg MCHC (32-36) g/dL RDW Std Deviation (36.4-46.3) fL RDW Coeff of Dante (11.5-14.5) % Plt Count (130-400) K/uL MPV (7.4-10.4) fL Immature Gran % (Auto) % Neut % (Auto) % Lymph % (Auto) % [place] % (Auto) % Eos % (Auto) % Baso % (Auto) % Immature Gran # (Auto) (0.00-0.02) K/uL Neut # (Auto) (1.4-6.5) K/uL Lymph # (Auto) (1.2-3.4) K/uL [place] # (Auto) (0.11-0.59) K/uL Eos # (Auto) (0-0.5) K/uL Baso # (Auto) (0-0.2) K/uL PT (9.0-12.0) Seconds INR (0.9-1.1) POC Sodium (135-144) mEq/L Sodium (136-145) mmol/L POC Potassium (3.3-5.0) mEq/L Potassium (3.5-5.1) mmol/L POC Chloride (101-112) mEq/L Chloride (98-107) mmol/L Carbon Dioxide (21-32) mmol/L POC Total CO2 (24-31) mEq/l Anion Gap (3-11) POC Anion Gap (16-25) mmol/L POC BUN (7-18) mg/dl BUN (7-18) mg/dl Creatinine (0.6-1.4) mg/dl POC Creatinine (0.6-1.3) mg/dl Est Cr Clr Drug Dosing Est GFR ( Amer) Est GFR (Non-Af Amer) BUN/Creatinine Ratio (10-20) Glucose (70-99) mg/dl POC Glucose (other) (70-99) mg/dl Lactate (0.4-2.0) mmol/L Calcium (8.5-10.1) mg/dl POC Ioniz Calcium Tank (1.12-1.32) mmol/l Magnesium (1.8-2.4) mg/dl Total Bilirubin (0.2-1) mg/dl Direct Bilirubin (0-0.2) mg/dl AST (15-37) U/L ALT (12-78) U/L Alkaline Phosphatase (45-117) U/L Total Creatine Kinase (39-308) U/L Troponin I (0-0.045) ng/ml Total Protein (6.4-8.2) gm/dl Albumin (3.4-5.0) gm/dl Lipase (73-393) U/L TSH (0.300-4.500) uIu/ml Free T4 (0.8-1.6) ng/dl Urine Color Yellow Urine Appearance Clear (Clear) Urine pH 7.5 (4.5-7.5) Ur Specific [place] 1.011 (1.000-1.030) Urine Protein 3+ H (Negative) Urine Glucose (UA) 1+ H (Negative) Urine Ketones Negative (Negative) Urine Blood 1+ H (Negative) Urine Nitrite Negative (Negative) Urine Bilirubin Negative (Negative) Urine Urobilinogen Negative (Negative) Ur Leukocyte Esterase Negative (Negative) Urine WBC (Auto) 1-5 (0-5) /hpf Urine RBC (Auto) 0-4 (0-4) /hpf U Hyaline Cast (Auto) 0 (0-5) /lpf U Epithel Cells (Auto) >30 H (0-5) /lpf Urine Bacteria (Auto) Negative (Negative) Ur Renal Epithelial Cell Not Reportable Salicylates (2.8-20) mg/dl Urine Opiates Screen Neg (Neg) Ur Methadone, Qual Neg (Neg) Acetaminophen (10-30) ug/ml Urine Barbiturates Neg (Neg) Ur Phencyclidine (PCP) Neg (Neg) U Amphetamin/Meth Scrn Neg (Neg) MDMA (Ecstasy) Screen Neg (Neg) U Benzodiazepines Scrn Pos H (Neg) Ur Cocaine Metabolite Neg (Neg) U Marijuana (THC) Screen Neg (Neg) Ethyl Alcohol mg/dL < 3.0 (0-3) mg/dl Administered Medications Albuterol (Duoneb) 3 ml NEB Q4R MIRZA Stop: 07/15/19 14:31 Last Admin: 06/15/19 16:00 Dose: 3 ml Documented by: [id number] Admin: 06/15/19 15:05 Dose: Not Given Documented by: [id number] Propofol (Diprivan) 1,000 mg in 100 mls @ 6.354 mls/hr IV .[id number] MIRZA; Protocol Stop: 06/18/19 11:27 Last Titration: 06/15/19 11:48 Dose: 15 mcg/kg/min, 6.4 mls/hr Documented by: [id number] Admin: 06/15/19 11:35 Dose: 5 mcg/kg/min, 2.1 mls/hr Documented by: [id number] Cosigned by: [id number] Amiodarone HCl/Dextrose (Nexterone / D5w) 360 mg in 200 mls @ 33.333 mls/hr IV .Q6H STA Stop: 06/15/19 19:54 Last Admin: 06/15/19 15:03 Dose: Not Given Documented by: [id number] Magnesium Sulfate/Dextrose (Magnesium Sulfate / D5w) 1 gm in 100 mls @ 100 mls/hr IV Q1H MIRZA Stop: 06/15/19 18:14 Last Admin: 06/15/19 17:18 Dose: 100 mls/hr Documented by: [id number] Infusion: 06/15/19 17:16 Dose: 100 mls/hr Documented by: [id number] Admin: 06/15/19 16:16 Dose: 100 mls/hr Documented by: [id number] Potassium Chloride (K [place]og[place] / Wtr) 10 meq in 100 mls @ 100 mls/hr IV Q1H MIRZA Stop: 06/15/19 17:59 Last Admin: 06/15/19 17:18 Dose: 100 mls/hr Documented by: [id number] Infusion: 06/15/19 17:16 Dose: 100 mls/hr Documented by: [id number] Admin: 06/15/19 16:16 Dose: 100 mls/hr Documented by: [id number] Insulin Aspart (Novolog Flexpen) 0 units SC Q4 MIRZA Stop: 07/15/19 15:59 Last Admin: 06/15/19 16:14 Dose: Not Given Documented by: [id number] Cosigned by: [id number] Discontinued Medications Amiodarone HCl/Dextrose (Nexterone / D5w (Stage Electrician Use Only)) Confirm Administered Dose 150 mg .ROUTE .STK-MED ONE Stop: 06/15/19 12:55 Last Admin: 06/15/19 15:03 Dose: Not Given Documented by: [id number] Amiodarone HCl/Dextrose (Nexterone / D5w (Stage Electrician Use Only)) Confirm Administered Dose 360 mg .ROUTE .STK-MED ONE Stop: 06/15/19 12:55 Last Admin: 06/15/19 15:03 Dose: Not Given Documented by: [id number] Aspirin (Aspirin) 300 mg LA ONE ONE Stop: 06/15/19 11:52 Last Admin: 06/15/19 12:15 Dose: 300 mg Documented by: [id number] Fentanyl Citrate (Fentanyl Citrate) 50 mcg IV NOW STA Stop: 06/15/19 11:41 Last Admin: 06/15/19 11:43 Dose: 50 mcg Documented by: [id number] Fentanyl Citrate (Fentanyl Citrate) Confirm Administered Dose 100 mcg .ROUTE .STK-MED ONE Stop: 06/15/19 12:10 Last Admin: 06/15/19 15:02 Dose: Not Given Documented by: [id number] Heparin Sodium (Porcine) (Heparin Iv Bolus ([facility] Electric[facility] Use Only)) Confirm Administered Dose 10,000 units .ROUTE .STK-MED ONE Stop: 06/15/19 12:10 Last Admin: 06/15/19 15:02 Dose: Not Given Documented by: [id number] Heparin Sodium/Sodium Chloride (Heparin/Nss 1000 Unit/500ml Flush Bag) Confirm Administered Dose 3,000 units IV .STK-MED ONE Stop: 06/15/19 12:10 Last Admin: 06/15/19 15:02 Dose: Not Given Documented by: [id number] Sodium Chloride (Nss 1000ml) 1,000 mls @ 999 mls/hr IV .Q1H1M ONE Stop: 06/15/19 12:28 Last Infusion: 06/15/19 15:05 Dose: 0 mls/hr Documented by: [id number] Admin: 06/15/19 11:30 Dose: 999 mls/hr Documented by: [id number] Calcium Gluconate 1,000 mg/ (Sodium Chloride) 60 mls @ 240 mls/hr IV 1500 ONE Stop: 06/15/19 15:14 Last Infusion: 06/15/19 15:37 Dose: 0 mls/hr Documented by: [id number] Admin: 06/15/19 15:12 Dose: 240 mls/hr Documented by: [id number] Insulin Glargine (Lantus Solostar Pen) 15 units SC NOW ONE Stop: 06/15/19 15:01 Last Admin: 06/15/19 16:14 Dose: 15 units Documented by: [id number] Cosigned by: [id number] Midazolam HCl (Versed) 2 mg IV TODAY@1140 ONE Stop: 06/15/19 11:41 Last Admin: 06/15/19 11:44 Dose: 2 mg Documented by: [id number] Midazolam HCl (Versed) Confirm Administered Dose 2 mg .ROUTE .STK-MED ONE Stop: 06/15/19 12:10 Last Admin: 06/15/19 15:02 Dose: Not Given Documented by: [id number] Miscellaneous () Confirm Administered Dose 1 ea .ROUTE .STK-MED ONE Stop: 06/15/19 11:17 Last Admin: 06/15/19 15:01 Dose: Not Given Documented by: [id number] Nitroglycerin/Dextrose (Nitroglycerin/D5w 100 Mcg/Ml 20ml Syringe) Confirm Administered Dose 2,000 mcg .ROUTE .STK-MED ONE Stop: 06/15/19 12:11 Last Admin: 06/15/19 15:02 Dose: Not Given Documented by: [id number] Norepinephrine Bitartrate (Levophed ([employer] Electric[employer] Use Only)) Confirm Administered Dose 4 mg .ROUTE .STK-MED ONE Stop: 06/15/19 12:54 Last Admin: 06/15/19 15:02 Dose: Not Given Documented by: [id number] Propofol (Diprivan) Confirm Administered Dose 1,000 mg IV .STK-MED ONE Stop: 06/15/19 11:29 Last Admin: 06/15/19 15:01 Dose: Not Given Documented by: [id number] Ticagrelor (Brilinta) Confirm Administered Dose 180 mg PO .STK-MED ONE Stop: 06/15/19 13:30 Last Admin: 06/15/19 13:50 Dose: 180 mg Documented by: [id number] Discharge Plan Visit Data *Final* Discharge Date/Time: 06/15/19 12:30 Chief Complaint: Unresponsive Other Complaint: Cardiac Assessment ED Provider: Agustin Blackwell Discharge Problem: Complete heart block, Acute respiratory distress, Altered mental status, Acute coronary syndrome, Aspiration into airway Patient Disposition: Still a Patient Discharge Instructions Interventions: ED Discharge Assessment Last Done: 06/15/19 12:30 Discharge Problem: Altered mental status Qualifiers: Altered mental status type: stupor Qualified Code(s): R40.1 - Stupor Aspiration into airway Qualifiers: Encounter type: initial encounter Qualified Code(s): T17.908A - Unspecified foreign body in respiratory tract, part unspecified causing other injury, initial encounter The scribe's documentation has been prepared under my direction and personally reviewed by me in its entirety. I confirm that the note above accurately reflects all work, treatment, procedures, and medical decision making performed by me.
[2019-06-15] MEDS ORDERED: PHARMACY GLYCEMIC MGMT CONSULT PRN (14:55)
--- NOTE | 2019-06-15 14:59 | Critical Care Consultation ---
Date of Consultation June 15, 2019 Assessment & Plan (1) Admitted to intensive care unit: 69-year-old male was admitted post cardiac cath's STEMI post cardiac stent. Neuro: The patient remains intubated and sedated and he is on a ventilator. Respiratory: The patient is with acute respiratory failure he was intubated in the ER and was sent to cardiac label designer. He is with acute AR. Currently he is sedated with propofol and is also on a ventilator and is oxygenating well. We are going to wake him up and try to wean him and if tolerated we are going to extubate him. Cardiac: The patient was admitted with acute myocardial infarction STEMI. He was taken to the cardiac lab. Coronary Angiography, Left Heart Cath, Drug Eluting Stent and Defibrillation Summary: Cardiac cath. 1. Inferior STEMI/Occluded mid circumflex 2. Chronic occluded mid RCA with left to right collaterals 3. Moderate 50-60% mid LAD 4. Intraprocedure VF requiring defibrillation 5. Atrial fibrillation 6. Normal intracardiac filling pressure 7. Successful PCI of mid circumflex extending from aneurysmal segment into large OM2 with single bare metal stent (2.75 x 18 mm integrity; postdilated with 3.25 NC). The patient was also loaded with ticagrelor and he was started on dual antiplatelet therapy. Also high-dose statin. GI: The patient is stable at this time. Endocrine: The patient has hypothyroidism and he will be started on his home medications. Renal: The patient has electrolytes abnormalities including hypokalemia and hypocalcemia. Will be replacing those. I am also going to check repeat potassium calcium and magnesium and depending on the findings we will be replacing them. Hematology: The patient has stable WBC, H&H, platelets. We are going to monitor him very closely. (2) Acute AR inferior lateral first episode care: (3) Atrial fibrillation: (4) Anemia: (5) Hypokalemia: (6) Metabolic acidosis: (7) Hypocalcemia: (8) Respiratory failure with hypoxia: (9) Hyperglycemia: (10) Acute myocardial infarction: History of Present Illness Reason for Consultation: Respiratory failure/STEMI/post cardiac cath/intubation. Requesting Physician: Oni Jansen MD Attending Physician: Oni Jansen MD History of Present Illness History of Present Illness the patient is a 69-year-old gentleman to be homeless who apparently made a phone call to EMS for collapsing. Patient was found by EMS unresponsive, hypotensive and bradycardic. The patient was transported to our facility where he underwent infusion normal saline with improvement in his hemodynamics. He also underwent intubation and sedation with propofol. An EKG in the field suggested an element of heart block. There are also significant ST segment changes. EKG at our facility was concerning for an acute coronary event specifically and infero posterior myocardial infarction. The rhythm appeared to be atrial fibrillation. Patient is known to have a history of schizophrenia and pancreatitis. There are no records of him being in our facility since 2017 The patient was taken to cardiac Director Of Psychology and he is post Coronary Angiography, Left Heart Cath, Drug Eluting Stent and Defibrillation. The patient was brought into the ICU intubated and on ventilator and on propofol. Currently he is sedated and is not able to answer any questions. Allergies Allergy/AdvReac Type Severity Reaction Status Date / Time horse dander Allergy Unknown HORSE HAIR Verified 03/02/17 23:27 tetanus toxoid, adsorbed Allergy Unknown Verified 03/02/17 23:27 Patient History Social History Preferred Language: [place] Smoking Status: Unknown if ever smoked Review of Systems Review of Systems: Review of system unable to obtain secondary to his current medical condition and mental status. Physical Exam Physical Exam: 69-year-old male currently intubated and sedated. Patient was agitated at times and required some additional sedation. HEENT: . The sclerae are anicteric. Pupils are reactive to light. Unable to examine the oral cavity because he is intubated. Neuro: Could not be obtained due to sedation and he remains on a ventilator. Neck: Patient's neck is supple. He has palpable carotid pulses bilaterally without bruits on auscultation. There is no evidence of jugular venous distention. The thyroid is not enlarged. No cervical or supraclavicular adenopathy. Lungs: Bilateral coarse breathing with few scattered rhonchi, no wheezing no crackles heard. Cardiac: Ms. irregular. No significant murmur. Pulses: The patient has palpable radial pulses bilaterally that are equal in intensity Abdomen: He did have some distended veins in the left lower abdomen. Abdomen is soft nontender bowel sounds are positive. Unable to palpate any mass. Extremities: There was no evidence of hypoperfusion. He has significant lymphedema and skin changes in the right leg. Skin: The patient has chronic changes on both of his legs and is homeless. Results & Data Vital Signs (Past 12 Hours) Vital Signs Temp Pulse Pulse Resp BP BP Pulse Ox 06/15/19 13:55 66 18 154/104 H 06/15/19 13:50 16 06/15/19 12:30 77 16 129/105 H 80 L 06/15/19 12:21 77 16 129/105 H 80 L 06/15/19 12:15 73 12 152/101 H 83 L 06/15/19 12:10 77 16 144/99 H 86 L 06/15/19 12:08 71 16 143/103 H 83 L 06/15/19 12:05 81 14 137/101 H 72 L 06/15/19 12:00 113 H 15 145/103 H 87 L 06/15/19 11:55 85 21 162/110 H 06/15/19 11:45 75 29 H 140/101 H 06/15/19 11:40 72 26 H 147/112 H 06/15/19 11:35 65 16 132/87 06/15/19 11:32 47 L 16 105/73 06/15/19 11:28 35.1 C L 45 L 18 101/61 93 06/15/19 11:25 45 L 15 106/71 06/15/19 11:24 46 L 16 94/65 L 94 06/15/19 11:22 45 L 23 101/61 Laboratory Results Abnormal lab results 06/15/19 06/15/19 06/15/19 Range/Units 11:45 11:45 11:45 RBC 3.36 L (4.7-6.1) M/uL Hgb 10.0 L (14.0-18.0) g/dL POC Hgb (14.0-18.0) g/dl Hct 30.1 L (42-52) % POC Hct (42-52) % Lymph # (Auto) 0.99 L (1.2-3.4) K/uL POC Potassium (3.3-5.0) mEq/L Potassium 3.1 L (3.5-5.1) mmol/L Chloride 114 H (98-107) mmol/L Carbon Dioxide 15 L (21-32) mmol/L POC Total CO2 (24-31) mEq/l Anion Gap 13.0 H (3-11) POC BUN (7-18) mg/dl BUN 20 H (7-18) mg/dl Glucose 266 H (70-99) mg/dl POC Glucose (other) (70-99) mg/dl Lactate (0.4-2.0) mmol/L Calcium 7.7 L (8.5-10.1) mg/dl POC Ioniz Calcium Tank (1.12-1.32) mmol/l Magnesium 1.7 L (1.8-2.4) mg/dl AST 51 H (15-37) U/L Troponin I 0.541 H* (0-0.045) ng/ml Total Protein 5.8 L (6.4-8.2) gm/dl Albumin 2.6 L (3.4-5.0) gm/dl TSH 35.800 H (0.300-4.500) uIu/ml Urine Protein (Negative) Urine Glucose (UA) (Negative) Urine Blood (Negative) U Epithel Cells (Auto) (0-5) /lpf Acetaminophen < 2 L (10-30) ug/ml U Benzodiazepines Scrn (Neg) 06/15/19 06/15/19 06/15/19 Range/Units 11:53 12:01 12:30 RBC (4.7-6.1) M/uL Hgb (14.0-18.0) g/dL POC Hgb 8.8 L (14.0-18.0) g/dl Hct (42-52) % POC Hct 26 L (42-52) % Lymph # (Auto) (1.2-3.4) K/uL POC Potassium 3.1 L (3.3-5.0) mEq/L Potassium (3.5-5.1) mmol/L Chloride (98-107) mmol/L Carbon Dioxide (21-32) mmol/L POC Total CO2 15 L (24-31) mEq/l Anion Gap (3-11) POC BUN 20 H (7-18) mg/dl BUN (7-18) mg/dl Glucose (70-99) mg/dl POC Glucose (other) 271 H (70-99) mg/dl Lactate 3.0 H* (0.4-2.0) mmol/L Calcium (8.5-10.1) mg/dl POC Ioniz Calcium Tank 1.03 L (1.12-1.32) mmol/l Magnesium (1.8-2.4) mg/dl AST (15-37) U/L Troponin I (0-0.045) ng/ml Total Protein (6.4-8.2) gm/dl Albumin (3.4-5.0) gm/dl TSH (0.300-4.500) uIu/ml Urine Protein 3+ H (Negative) Urine Glucose (UA) 1+ H (Negative) Urine Blood 1+ H (Negative) U Epithel Cells (Auto) >30 H (0-5) /lpf Acetaminophen (10-30) ug/ml U Benzodiazepines Scrn (Neg) 06/15/19 Range/Units 12:30 RBC (4.7-6.1) M/uL Hgb (14.0-18.0) g/dL POC Hgb (14.0-18.0) g/dl Hct (42-52) % POC Hct (42-52) % Lymph # (Auto) (1.2-3.4) K/uL POC Potassium (3.3-5.0) mEq/L Potassium (3.5-5.1) mmol/L Chloride (98-107) mmol/L Carbon Dioxide (21-32) mmol/L POC Total CO2 (24-31) mEq/l Anion Gap (3-11) POC BUN (7-18) mg/dl BUN (7-18) mg/dl Glucose (70-99) mg/dl POC Glucose (other) (70-99) mg/dl Lactate (0.4-2.0) mmol/L Calcium (8.5-10.1) mg/dl POC Ioniz Calcium Tank (1.12-1.32) mmol/l Magnesium (1.8-2.4) mg/dl AST (15-37) U/L Troponin I (0-0.045) ng/ml Total Protein (6.4-8.2) gm/dl Albumin (3.4-5.0) gm/dl TSH (0.300-4.500) uIu/ml Urine Protein (Negative) Urine Glucose (UA) (Negative) Urine Blood (Negative) U Epithel Cells (Auto) (0-5) /lpf Acetaminophen (10-30) ug/ml U Benzodiazepines Scrn Pos H (Neg) Diagnostic Findings SINGLE VIEW CHEST CLINICAL HISTORY: Intubation. FINDINGS: An AP, portable, supine chest radiograph is compared to study dated 03/19/2017 and correlated with chest CT dated 10/28/2016. The examination is degraded by portable technique and patient rotation. An endotracheal tube has been placed. The tip of the catheter projects 4.5 cm above the kay. A cardiac pad is in place. The heart is enlarged and there is atherosclerotic calcification of the thoracic aorta. There is prominence of the central pulmonary vessels. Emphysema with chronic interstitial thickening/nodularity is similar to previous. Bibasilar scarring/atelectasis is identified. There is no airspace consolidation or large pleural effusion. No pneumothorax is seen. The skeletal structures are osteopenic. The bony thorax is grossly intact. IMPRESSION: 1. An endotracheal tube has been placed. The tip projects 4.5 cm above the kay. 2. Cardiomegaly with prominence of the central pulmonary vessels. Correlate clinically for evidence of mild congestive failure. 3. Emphysema. 4. No airspace consolidation or large pleural effusion is identified. Electronically signed by: Mulugeta Mccabe M.D. 06/15/2019 11:55 AM Medications Administered Current Inpatient Medications Albuterol (Duoneb) 3 ml NEB Q4R [facility] Stop: 07/15/19 14:31 Aspirin (Ecotrin Ectab) 81 mg PO QAM [facility] Stop: 07/16/19 08:59 Atorvastatin Calcium (Lipitor) 80 mg PO QAM [facility] Stop: 07/16/19 08:59 Dextrose (Dextrose 50%) 25 - 50 ml IV UD PRN; Protocol PRN Reason: Hypoglycemia Protocol Stop: 07/15/19 14:31 Glucagon (Glucagen) 1 mg SQ UD PRN; Protocol PRN Reason: Hypoglycemia Protocol Stop: 07/15/19 14:31 Glucose (Glucose 40%) 15 - 30 gm PO UD PRN; Protocol PRN Reason: Hypoglycemia Protocol Stop: 07/15/19 14:31 Glucose (Dex4 Glucose) 4 - 8 tabs PO UD PRN; Protocol PRN Reason: Hypoglycemia Protocol Stop: 07/15/19 14:31 Propofol (Diprivan) 1,000 mg in 100 mls @ 6.354 mls/hr IV .[id number] [facility]; Protocol Stop: 06/18/19 11:27 Last Titration: 06/15/19 11:48 Dose: 15 mcg/kg/min, 6.4 mls/hr Documented by: Amiodarone HCl/Dextrose (Nexterone / D5w) 360 mg in 200 mls @ 33.333 mls/hr IV .Q6H [facility] Stop: 06/15/19 19:54 Last Admin: 06/15/19 15:03 Dose: Not Given Documented by: Norepinephrine Bitartrate 8 mg (/ Dextrose) 508 mls @ 13.45 mls/hr IV .Q24H PRN; Protocol PRN Reason: PROTOCOL Stop: 07/15/19 13:54 Calcium Gluconate 1,000 mg/ (Sodium Chloride) 60 mls @ 240 mls/hr IV 1500 ONE Stop: 06/15/19 15:14 Insulin Aspart (Novolog Flexpen) 0 units SC Q4 [facility] Stop: 07/15/19 15:59 Miscellaneous (Icu Protocol For Hyperglycemia) 1 ea N/A PRN PRN; Protocol PRN Reason: Hyperglycemia Protocol Stop: 06/17/19 14:31 Miscellaneous (Carbohydrates For Hypoglycemia) 15 - 30 gm PO UD PRN PRN Reason: Hypoglycemia Treatment Stop: 07/15/19 14:31 Miscellaneous Information (Consult Glycemic Management Pharmacy) 1 ea N/A UD PRN; Protocol PRN Reason: Consult Stop: 07/15/19 14:54 Ticagrelor (Brilinta) 90 mg PO BID [facility] Stop: 07/15/19 20:59 PG Care Time/CCT Total # of Minutes Spent Total Time Spent: 55 Total Time Spent with Patient: Total time spent is greater than 50% in coordination of care (as documented) at patient's floor/unit and/or counseling patient: Critical Care Time: Yes Total Critical Care Time: 55
[2019-06-15] MEDS ORDERED: CALCIUM GLUCONATE 10% 1,000 MG in SODIUM CHLORIDE 0.9% 50 ML IV ONE (15:00)
[2019-06-15] MEDS ORDERED: INSULIN GLARGINE SOLOSTAR 100 UNITS/ML 3 ML PEN SC ONE (15:00)
[2019-06-15] MEDS: ALBUT/IPRATROP 3MG/0.5MG NEB 3 ML VIAL NEB SCH ×5 (15:05→23:23)
[2019-06-15 15:43] LABS: Potassium 3.4 mmol/L (3.5-5.1)
[2019-06-15] MEDS: INSULIN ASPART 100 UNITS/ML 3 ML PEN SC SCH ×2 (16:14→20:50)
[2019-06-15] MEDS: POTASSIUM CHLORIDE / WTR 10 MEQ/100 ML PLCT IV SCH ×2 (16:16→17:18)
[2019-06-15] MEDS: MAGNESIUM SULFATE / D5W 1 GM/100 ML BAG IV SCH ×2 (16:16→17:18)
[2019-06-15 16:26] LABS: Magnesium 1.9 mg/dl (1.8-2.4); Troponin I > 200.000 ng/ml (0-0.045)
[2019-06-15] MEDS ORDERED: AMIODARONE IV BOLUS / DRIP IV STA (17:50)
[2019-06-15] MEDS: MoRPHine SULFATE 2 MG/ML CARP IV PRN ×2 (17:59→22:52)
[2019-06-15] MEDS: AMIODARONE / D5W 360 MG/200 ML BAG IV SCH ×2 (17:59→18:43)
[2019-06-15] MEDS ORDERED: AMIODARONE / D5W 360 MG/200 ML BAG IV SCH (18:00)
[2019-06-15] MEDS ORDERED: ONDANSETRON INJ 2 MG/ML 2 ML VIAL IV SCH (19:00)
[2019-06-15] MEDS ORDERED: ONDANSETRON INJ 2 MG/ML 2 ML VIAL ONE (19:08)
[2019-06-15] MEDS ORDERED: ONDANSETRON INJ 2 MG/ML 2 ML VIAL IV STA (19:09)
[2019-06-15] MEDS ORDERED: MoRPHine SULFATE 2 MG/ML CARP IV STA (19:22)
[2019-06-15] MEDS ORDERED: TICAGRELOR 90 MG TAB PO SCH (21:00)
[2019-06-16] MEDS: INSULIN ASPART 100 UNITS/ML 3 ML PEN SC SCH ×6 (00:24→23:47)
[2019-06-16 02:13] LABS: Alanine Aminotransferase 105 U/L (12-78); Albumin Level 2.7 gm/dl (3.4-5.0); Aspartate Aminotransferase 943 U/L (15-37); BUN Creatinine Ratio 15.8 (10-20); Blood Urea Nitrogen 22 mg/dl (7-18); Calcium 8.1 mg/dl (8.5-10.1); Carbon Dioxide 22 mmol/L (21-32); Chloride 112 mmol/L (98-107); Creatinine Clr Calc Pharmacy 49.5 ml/min; Est GFR (African American) 59.8; Est GFR (Non-African American) 51.6; Glucose 97 mg/dl (70-99); Potassium 3.8 mmol/L (3.5-5.1); Sodium 141 mmol/L (136-145)
[2019-06-16 02:38] LABS: Albumin Globulin Ratio 0.8 (0.9-2); Alkaline Phosphatase 83 U/L (45-117); Bilirubin,Total 0.4 mg/dl (0.2-1); Globulin 3.6 gm/dl (2.5-4.0); Total Protein 6.3 gm/dl (6.4-8.2); Troponin I > 200.000 ng/ml (0-0.045)
[2019-06-16] MEDS ORDERED: METOCLOPRAMIDE HCL INJ 5 MG/ML 2 ML VIAL IV ONE (02:55)
[2019-06-16] MEDS ORDERED: ONDANSETRON INJ 2 MG/ML 2 ML VIAL ONE (02:55)
[2019-06-16] MEDS: MoRPHine SULFATE 2 MG/ML CARP IV PRN ×4 (02:56→23:05)
[2019-06-16] MEDS ORDERED: ONDANSETRON INJ 2 MG/ML 2 ML VIAL IV STA (03:00)
[2019-06-16 04:43] LABS: Basophils # (auto) 0.01 K/uL (0-0.2); Basophils % (auto) 0.1 %; Hematocrit (blood only) 35.1 % (42-52); Hemoglobin 11.6 g/dL (14.0-18.0); Immature Granulocytes # (auto) 0.01 K/uL (0.00-0.02); Immature Granulocytes % (auto) 0.1 %; Lymphocytes # (auto) 0.49 K/uL (1.2-3.4); Lymphocytes % (auto) 6.5 %; Mean Corpuscular Hemoglobin 29.4 pg (25-34); Mean Corpuscular Volume 88.9 fL (80-100); Mean Platelet Volume 10.3 fL (7.4-10.4); Monocytes # (auto) 0.47 K/uL (0.11-0.59); Monocytes % (auto) 6.2 %; Neutrophils # (auto) 6.57 K/uL (1.4-6.5); Neutrophils % (auto) 87.1 %; Platelet Count 136 K/uL (130-400); RDW Coefficient of Variation 14.7 % (11.5-14.5); Red Blood Count 3.95 M/uL (4.7-6.1); White Blood Count 7.55 K/uL (4.8-10.8)
[2019-06-16 05:06] LABS: Prothrombin Time 10.5 Seconds (9.0-12.0)
[2019-06-16] MEDS: ALBUT/IPRATROP 3MG/0.5MG NEB 3 ML VIAL NEB SCH ×3 (05:45→11:39)
[2019-06-16] MEDS: AMIODARONE / D5W 360 MG/200 ML BAG IV SCH (06:18)
[2019-06-16] MEDS: ASPIRIN 81 MG ECTAB PO SCH (07:55)
[2019-06-16] MEDS: ATORVASTATIN 40 MG TAB PO SCH (07:55)
--- NOTE | 2019-06-16 08:08 | Hospitalist Progress Note ---
Date of Service June 16, 2019 Assessment & Plan (1) Acute myocardial infarction: Patient is a 69-year-old male with history of schizophrenia, hypertension, DVT, lymphedema, and right lower extremity, chronic wounds, testicular carcinoma, tobacco abuse, known to our practice for multiple admissions in the past, homeless, came to ED in an unresponsive state. Noted to have inferior STEMI, [facility] in mid circumflex and transferred to ICU for further care. INFERIOR STEMI Multiple risk factorsNon compliant with medications, hypertension, tobacco abuse, self-neglect, homeless situation, unknown compliance Status post cardiac catheterization done emergently on 06/15/2019occluded mid circumflex, single bare-metal stent placed, chronically occluded mid RCA, moderate 50 to 60% LAD, intraprocedure V. fib requiring defibrillation, Atrial fibrillation. Continue with dual antiplatelet for at least one year. Continue with high dose Atorvastatin 80 mg q HS Troponin peaked up to more than 200. Echocardiogram EF 40 to 45%, grade 2 diastolic dysfunction, wall motion abnormalities Cardiology on board. Appreciate inputs ACUTE HYPOXIC RESPIRATORY FAILURE- Resolved Required Intubation on arrival to ED due to unresponsive state/ STEMI -S/P Intubation on 06/15--> Self extubated overnight --> Doing well on RA -CC on board. Appreciate inputs VOMITING US - Possible cholecystitis -No leucocytosis, No fever -IV Zosyn empirically -Monitor HX OF ATRIAL FIBRILLATION Intraoperatively had VF requiring defrillation -On IV Amiodarone drip - Off it now HTN Hx of non compliance and takes medications on and off when he feels like - Per prior notes BP is borderline low -Was on lisinopril 30 mg , Clonidine patch in past -Continue to monitor and accordingly add meds as tolerated HX OF SCHIZOPHRENIA Paranoid schizophrenia per records BILATERAL LOWER EXTREMITIES -Wound care consult HX OF TESTICULAR TUMOR S/P SURGERY HX OF DVT Not a candidate for anticoagulation given homelessness, non compliance DVT PROPHYLAXIS SCDS/ TEDS DISPOSITION Transfer to PCU from ICU Subjective Patient continues to have vomiting. Not able to tolerate p.o. diet much. No chest pain, shortness of breath, nausea, vomiting. Physical Exam Physical Exam: GENERAL- AAOX3, mild distress secondary to vomiting. Disheveled + NECK- Supple, no JVD LUNGS- Air entry bilaterally equal. No rales, rhonchi, crackles, wheezes heard. HEART- Regular rate and rhythm. No murmurs ABDOMEN- Soft, non tender, non distended, Bowel sounds heard. EXTREMITIES- Good peripheral pulses, no edema NEUROMUSCULAR- AAOX3, Grossly no focal deficits Results & Data Vital Signs (Past 12 Hours) Vital Signs Temp Pulse Resp BP Pulse Ox 06/16/19 06:00 56 L 15 96/67 L 96 06/16/19 05:00 56 L 20 91/62 L 97 06/16/19 04:00 36.5 C 60 12 96/66 L 97 06/16/19 03:00 58 L 20 99/69 L 96 06/16/19 02:00 58 L 24 98/68 L 94 06/16/19 01:00 57 L 23 105/74 99 06/16/19 00:00 57 L 20 104/72 94 06/15/19 23:30 56 L 25 H 110/76 95 06/15/19 23:00 57 L 18 101/69 98 06/15/19 22:30 59 L 14 108/77 98 06/15/19 22:00 56 L 19 114/77 98 06/15/19 21:30 59 L 15 111/76 98 06/15/19 21:00 55 L 21 106/74 100 06/15/19 20:30 54 L 16 101/68 99
[2019-06-16] MEDS ORDERED: SODIUM CHLORIDE 0.9% 500 ML IV ONE (08:58)
--- NOTE | 2019-06-16 09:03 | Cardiology Progress Note ---
Date of Service June 16, 2019 Assessment & Plan (1) Acute myocardial infarction: Patient presented with an acute inferior posterior myocardial infarction that involved acute occlusion of the left circumflex system. 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 He had successful reperfusion with stenting of the circumflex vessel. He had some symptoms of atypical chest discomfort over the course of the evening and some mild chest pain early this morning. There are no other objective findings of ongoing ischemia. Does have significantly elevated biomarkers suggesting a sizable infarct and the echocardiogram also suggests a sizable infarct. He is mildly hypotensive this morning and possibly volume depleted. He responded quite well to volume administration yesterday which can be typical in the setting of inferior OK. We will try fluid bolus this morning. I would try to initiate beta-polo therapy as well. We will hold off on Jt inhibition until his hemodynamics are more stable. I discussed with him the need for continued medical therapy including dual anti- platelet therapy. He was very adamant that he would not take Brilinta. It is unclear what his reservation regarding Brilinta happens to be, but he apparently had heard this name before and feels that this medication is not safe for him. We decided to try Plavix as an alternative. This may also improve compliance of that is a daily medication versus twice daily. (2) Complete heart block: This resolved with reperfusion. He currently has intact AV conduction. He does have an element of bradycardia which could be worsened by his amiodarone infusion. Hopefully we can stop the amiodarone and start low-dose beta-blockade today. He would benefit from beta-polo going forward and hopefully his hemodynamics will allow gradual increases in the dose. Will monitor him on telemetry for evidence of worsening bradycardia or recurrent AV block. (3) Mitral regurgitation: His echocardiogram demonstrated severe mitral regurgitation. This may be related to his acute infarct. Curiously, he does not have a loud murmur on examination. Will monitor his volume status closely. Hopefully with imp rovement in his LV function and recovery from his OK will see some improvement in the mitral regurgitation as well. (4) Ventricular ectopy: He did have fairly frequent ventricular ectopy and frequent triplets during the late evening yesterday. This seems to have improved. I think we can stop the amiodarone start beta-blockade today. Subjective This morning the patient complains of abdominal discomfort. He has significant nausea was noted by the nursing staff to a vomited on more than 1 occasion. He does not report abdominal tenderness. He also reports some strain sensation in the chest. He states that overnight he had variable and fleeting chest pains. This morning he notes more of a chest pressure which is very mild. No pleuritic symptoms. No breathing difficulty. He also had some concerns regarding ulcers on his right leg. Review of Systems Review of Systems: Per HPI Physical Exam Physical Exam: The patient is alert and oriented. Mood and affect appeared normal. He answered all questions appropriately. HEENT: Pupils are equal and reactive to light and accommodation. Extraocular movements are intact. The sclerae are anicteric. Neuro: Cranial nerves intact Lungs: Clear to auscultation bilaterally. He has good air movement without use of accessory muscles. No rales wheezes or rhonchi. Cardiac: Heart demonstrates a regular rate and rhythm. Normal S1 and S2. No significant murmurs appreciated even with adequate taken in the axilla Pulses: The patient has palpable radial pulses bilaterally that are equal in intensity Extremities: There was no evidence of hypoperfusion. There is no cyanosis or clubbing. He has marked lymphedema and chronic changes involving the right lower extremity. Ulcerations or bandaged. Results & Data Vital Signs (Past 12 Hours) Vital Signs Temp Pulse Resp BP Pulse Ox 06/16/19 06:00 56 L 15 96/67 L 96 06/16/19 05:00 56 L 20 91/62 L 97 06/16/19 04:00 36.5 C 60 12 96/66 L 97 06/16/19 03:00 58 L 20 99/69 L 96 06/16/19 02:00 58 L 24 98/68 L 94 06/16/19 01:00 57 L 23 105/74 99 06/16/19 00:00 57 L 20 104/72 94 06/15/19 23:30 56 L 25 H 110/76 95 06/15/19 23:00 57 L 18 101/69 98 06/15/19 22:30 59 L 14 108/77 98 06/15/19 22:00 56 L 19 114/77 98 06/15/19 21:30 59 L 15 111/76 98 Laboratory Results Abnormal Lab Results 06/15/19 06/15/19 06/15/19 11:45 11:45 11:45 WBC 6.44 RBC 3.36 L Hgb 10.0 L POC Hgb Hct 30.1 L POC Hct MCV 89.6 MCH 29.8 MCHC 33.2 RDW Std Deviation 46.0 RDW Coeff of Dante 14.0 Plt Count 157 MPV 9.9 Immature Gran % (Auto) 0.2 Neut % (Auto) 79.1 Lymph % (Auto) 15.4 [place] % (Auto) 4.5 Eos % (Auto) 0.6 Baso % (Auto) 0.2 Immature Gran # (Auto) 0.01 Neut # (Auto) 5.10 Lymph # (Auto) 0.99 L [place] # (Auto) 0.29 Eos # (Auto) 0.04 Baso # (Auto) 0.01 PT 10.8 INR 1.1 Activ Coag Time Kaolin POC Sodium Sodium 142 POC Potassium Potassium 3.1 L POC Chloride Chloride 114 H Carbon Dioxide 15 L POC Total CO2 Anion Gap 13.0 H POC Anion Gap POC BUN BUN 20 H Creatinine 1.35 POC Creatinine Est Cr Clr Drug Dosing Not Reportable Est GFR ( Amer) 62.5 Est GFR (Non-Af Amer) 53.9 BUN/Creatinine Ratio 14.9 Glucose 266 H POC Glucose POC Glucose (other) Lactate Calcium 7.7 L POC Ioniz Calcium Tank Ionized Calcium Magnesium 1.7 L Total Bilirubin 0.5 Direct Bilirubin 0.1 AST 51 H ALT 35 Alkaline Phosphatase 80 Total Creatine Kinase 92 Troponin I 0.541 H* Total Protein 5.8 L Albumin 2.6 L Globulin Albumin/Globulin Ratio Lipase 109 TSH 35.800 H Free T4 1.08 Urine Color Urine Appearance Urine pH Ur Specific [place] Urine Protein Urine Glucose (UA) Urine Ketones Urine Blood Urine Nitrite Urine Bilirubin Urine Urobilinogen Ur Leukocyte Esterase Urine WBC (Auto) Urine RBC (Auto) U Hyaline Cast (Auto) U Epithel Cells (Auto) Urine Bacteria (Auto) Ur Renal Epithelial Cell Nasal Screen MRSA (PCR) Salicylates Urine Opiates Screen Ur Methadone, Qual Acetaminophen Urine Barbiturates Ur Phencyclidine (PCP) U Amphetamin/Meth Scrn MDMA (Ecstasy) Screen U Benzodiazepines Scrn Ur Cocaine Metabolite U Marijuana (THC) Screen Ethyl Alcohol mg/dL 06/15/19 06/15/19 06/15/19 11:45 11:53 12:01 WBC RBC Hgb POC Hgb 8.8 L Hct POC Hct 26 L MCV MCH MCHC RDW Std Deviation RDW Coeff of Dante Plt Count MPV Immature Gran % (Auto) Neut % (Auto) Lymph % (Auto) [place] % (Auto) Eos % (Auto) Baso % (Auto) Immature Gran # (Auto) Neut # (Auto) Lymph # (Auto) [place] # (Auto) Eos # (Auto) Baso # (Auto) PT INR Activ Coag Time Kaolin POC Sodium 140 Sodium POC Potassium 3.1 L Potassium POC Chloride 110 Chloride Carbon Dioxide POC Total CO2 15 L Anion Gap POC Anion Gap 18.0 POC BUN 20 H BUN Creatinine POC Creatinine 1.2 Est Cr Clr Drug Dosing Est GFR ( Amer) Est GFR (Non-Af Amer) BUN/Creatinine Ratio Glucose POC Glucose POC Glucose (other) 271 H Lactate 3.0 H* Calcium POC Ioniz Calcium Tank 1.03 L Ionized Calcium Magnesium Total Bilirubin Direct Bilirubin AST ALT Alkaline Phosphatase Total Creatine Kinase Troponin I Total Protein Albumin Globulin Albumin/Globulin Ratio Lipase TSH Free T4 Urine Color Urine Appearance Urine pH Ur Specific [place] Urine Protein Urine Glucose (UA) Urine Ketones Urine Blood Urine Nitrite Urine Bilirubin Urine Urobilinogen Ur Leukocyte Esterase Urine WBC (Auto) Urine RBC (Auto) U Hyaline Cast (Auto) U Epithel Cells (Auto) Urine Bacteria (Auto) Ur Renal Epithelial Cell Nasal Screen MRSA (PCR) Salicylates 4.7 Urine Opiates Screen Ur Methadone, Qual Acetaminophen < 2 L Urine Barbiturates Ur Phencyclidine (PCP) U Amphetamin/Meth Scrn MDMA (Ecstasy) Screen U Benzodiazepines Scrn Ur Cocaine Metabolite U Marijuana (THC) Screen Ethyl Alcohol mg/dL 06/15/19 06/15/19 06/15/19 12:01 12:30 12:30 WBC RBC Hgb POC Hgb Hct POC Hct MCV MCH MCHC RDW Std Deviation RDW Coeff of Dante Plt Count MPV Immature Gran % (Auto) Neut % (Auto) Lymph % (Auto) [place] % (Auto) Eos % (Auto) Baso % (Auto) Immature Gran # (Auto) Neut # (Auto) Lymph # (Auto) [place] # (Auto) Eos # (Auto) Baso # (Auto) PT INR Activ Coag Time Kaolin POC Sodium Sodium POC Potassium Potassium POC Chloride Chloride Carbon Dioxide POC Total CO2 Anion Gap POC Anion Gap POC BUN BUN Creatinine POC Creatinine Est Cr Clr Drug Dosing Est GFR ( Amer) Est GFR (Non-Af Amer) BUN/Creatinine Ratio Glucose POC Glucose POC Glucose (other) Lactate Calcium POC Ioniz Calcium Tank Ionized Calcium Magnesium Total Bilirubin Direct Bilirubin AST ALT Alkaline Phosphatase Total Creatine Kinase Troponin I Total Protein Albumin Globulin Albumin/Globulin Ratio Lipase TSH Free T4 Urine Color Yellow Urine Appearance Clear Urine pH 7.5 Ur Specific [place] 1.011 Urine Protein 3+ H Urine Glucose (UA) 1+ H Urine Ketones Negative Urine Blood 1+ H Urine Nitrite Negative Urine Bilirubin Negative Urine Urobilinogen Negative Ur Leukocyte Esterase Negative Urine WBC (Auto) 1-5 Urine RBC (Auto) 0-4 U Hyaline Cast (Auto) 0 U Epithel Cells (Auto) >30 H Urine Bacteria (Auto) Negative Ur Renal Epithelial Cell Not Reportable Nasal Screen MRSA (PCR) Salicylates Urine Opiates Screen Neg Ur Methadone, Qual Neg Acetaminophen Urine Barbiturates Neg Ur Phencyclidine (PCP) Neg U Amphetamin/Meth Scrn Neg MDMA (Ecstasy) Screen Neg U Benzodiazepines Scrn Pos H Ur Cocaine Metabolite Neg U Marijuana (THC) Screen Neg Ethyl Alcohol mg/dL < 3.0 06/15/19 06/15/19 06/15/19 13:08 15:10 15:10 WBC RBC Hgb POC Hgb Hct POC Hct MCV MCH MCHC RDW Std Deviation RDW Coeff of Dante Plt Count MPV Immature Gran % (Auto) Neut % (Auto) Lymph % (Auto) [place] % (Auto) Eos % (Auto) Baso % (Auto) Immature Gran # (Auto) Neut # (Auto) Lymph # (Auto) [place] # (Auto) Eos # (Auto) Baso # (Auto) PT INR Activ Coag Time Kaolin 186 H POC Sodium Sodium POC Potassium Potassium 3.4 L POC Chloride Chloride Carbon Dioxide POC Total CO2 Anion Gap POC Anion Gap POC BUN BUN Creatinine POC Creatinine Est Cr Clr Drug Dosing Est GFR ( Amer) Est GFR (Non-Af Amer) BUN/Creatinine Ratio Glucose POC Glucose POC Glucose (other) Lactate 5.1 H* Calcium POC Ioniz Calcium Tank Ionized Calcium Magnesium 1.9 Total Bilirubin Direct Bilirubin AST ALT Alkaline Phosphatase Total Creatine Kinase Troponin I > 200.000 H* Total Protein Albumin Globulin Albumin/Globulin Ratio Lipase TSH Free T4 Urine Color Urine Appearance Urine pH Ur Specific [place] Urine Protein Urine Glucose (UA) Urine Ketones Urine Blood Urine Nitrite Urine Bilirubin Urine Urobilinogen Ur Leukocyte Esterase Urine WBC (Auto) Urine RBC (Auto) U Hyaline Cast (Auto) U Epithel Cells (Auto) Urine Bacteria (Auto) Ur Renal Epithelial Cell Nasal Screen MRSA (PCR) Salicylates Urine Opiates Screen Ur Methadone, Qual Acetaminophen Urine Barbiturates Ur Phencyclidine (PCP) U Amphetamin/Meth Scrn MDMA (Ecstasy) Screen U Benzodiazepines Scrn Ur Cocaine Metabolite U Marijuana (THC) Screen Ethyl Alcohol mg/dL 06/15/19 06/15/19 06/15/19 15:10 15:10 15:10 WBC RBC Hgb POC Hgb Hct POC Hct MCV MCH MCHC RDW Std Deviation RDW Coeff of Dante Plt Count MPV Immature Gran % (Auto) Neut % (Auto) Lymph % (Auto) [place] % (Auto) Eos % (Auto) Baso % (Auto) Immature Gran # (Auto) Neut # (Auto) Lymph # (Auto) [place] # (Auto) Eos # (Auto) Baso # (Auto) PT INR Activ Coag Time Kaolin POC Sodium Sodium POC Potassium Potassium Cancelled POC Chloride Chloride Carbon Dioxide POC Total CO2 Anion Gap POC Anion Gap POC BUN BUN Creatinine POC Creatinine Est Cr Clr Drug Dosing Est GFR ( Amer) Est GFR (Non-Af Amer) BUN/Creatinine Ratio Glucose POC Glucose POC Glucose (other) Lactate Calcium POC Ioniz Calcium Tank Ionized Calcium 1.16 Magnesium Cancelled Total Bilirubin Direct Bilirubin AST ALT Alkaline Phosphatase Total Creatine Kinase Troponin I Total Protein Albumin Globulin Albumin/Globulin Ratio Lipase TSH Free T4 Urine Color Urine Appearance Urine pH Ur Specific [place] Urine Protein Urine Glucose (UA) Urine Ketones Urine Blood Urine Nitrite Urine Bilirubin Urine Urobilinogen Ur Leukocyte Esterase Urine WBC (Auto) Urine RBC (Auto) U Hyaline Cast (Auto) U Epithel Cells (Auto) Urine Bacteria (Auto) Ur Renal Epithelial Cell Nasal Screen MRSA (PCR) Salicylates Urine Opiates Screen Ur Methadone, Qual Acetaminophen Urine Barbiturates Ur Phencyclidine (PCP) U Amphetamin/Meth Scrn MDMA (Ecstasy) Screen U Benzodiazepines Scrn Ur Cocaine Metabolite U Marijuana (THC) Screen Ethyl Alcohol mg/dL 06/15/19 06/15/19 06/15/19 16:00 16:12 20:03 WBC RBC Hgb POC Hgb Hct POC Hct MCV MCH MCHC RDW Std Deviation RDW Coeff of Dante Plt Count MPV Immature Gran % (Auto) Neut % (Auto) Lymph % (Auto) [place] % (Auto) Eos % (Auto) Baso % (Auto) Immature Gran # (Auto) Neut # (Auto) Lymph # (Auto) [place] # (Auto) Eos # (Auto) Baso # (Auto) PT INR Activ Coag Time Kaolin POC Sodium Sodium POC Potassium Potassium POC Chloride Chloride Carbon Dioxide POC Total CO2 Anion Gap POC Anion Gap POC BUN BUN Creatinine POC Creatinine Est Cr Clr Drug Dosing Est GFR ( Amer) Est GFR (Non-Af Amer) BUN/Creatinine Ratio Glucose POC Glucose 112 H POC Glucose (other) Lactate Calcium POC Ioniz Calcium Tank Ionized Calcium Magnesium Total Bilirubin Direct Bilirubin AST ALT Alkaline Phosphatase Total Creatine Kinase Troponin I > 200.000 H* Total Protein Albumin Globulin Albumin/Globulin Ratio Lipase TSH Free T4 Urine Color Urine Appearance Urine pH Ur Specific [place] Urine Protein Urine Glucose (UA) Urine Ketones Urine Blood Urine Nitrite Urine Bilirubin Urine Urobilinogen Ur Leukocyte Esterase Urine WBC (Auto) Urine RBC (Auto) U Hyaline Cast (Auto) U Epithel Cells (Auto) Urine Bacteria (Auto) Ur Renal Epithelial Cell Nasal Screen MRSA (PCR) Negative Salicylates Urine Opiates Screen Ur Methadone, Qual Acetaminophen Urine Barbiturates Ur Phencyclidine (PCP) U Amphetamin/Meth Scrn MDMA (Ecstasy) Screen U Benzodiazepines Scrn Ur Cocaine Metabolite U Marijuana (THC) Screen Ethyl Alcohol mg/dL 06/15/19 06/16/19 06/16/19 20:47 00:18 01:33 WBC RBC Hgb POC Hgb Hct POC Hct MCV MCH MCHC RDW Std Deviation RDW Coeff of Dante Plt Count MPV Immature Gran % (Auto) Neut % (Auto) Lymph % (Auto) [place] % (Auto) Eos % (Auto) Baso % (Auto) Immature Gran # (Auto) Neut # (Auto) Lymph # (Auto) [place] # (Auto) Eos # (Auto) Baso # (Auto) PT INR Activ Coag Time Kaolin POC Sodium Sodium 141 POC Potassium Potassium 3.8 POC Chloride Chloride 112 H Carbon Dioxide 22 POC Total CO2 Anion Gap 7.0 POC Anion Gap POC BUN BUN 22 H Creatinine 1.40 POC Creatinine Est Cr Clr Drug Dosing 49.5 Est GFR ( Amer) 59.8 Est GFR (Non-Af Amer) 51.6 BUN/Creatinine Ratio 15.8 Glucose 97 POC Glucose 95 78 POC Glucose (other) Lactate Calcium 8.1 L POC Ioniz Calcium Tank Ionized Calcium Magnesium Total Bilirubin 0.4 Direct Bilirubin AST 943 H ALT 105 H Alkaline Phosphatase 83 Total Creatine Kinase Troponin I > 200.000 H* Total Protein 6.3 L Albumin 2.7 L Globulin 3.6 Albumin/Globulin Ratio 0.8 L Lipase TSH Free T4 Urine Color Urine Appearance Urine pH Ur Specific [place] Urine Protein Urine Glucose (UA) Urine Ketones Urine Blood Urine Nitrite Urine Bilirubin Urine Urobilinogen Ur Leukocyte Esterase Urine WBC (Auto) Urine RBC (Auto) U Hyaline Cast (Auto) U Epithel Cells (Auto) Urine Bacteria (Auto) Ur Renal Epithelial Cell Nasal Screen MRSA (PCR) Salicylates Urine Opiates Screen Ur Methadone, Qual Acetaminophen Urine Barbiturates Ur Phencyclidine (PCP) U Amphetamin/Meth Scrn MDMA (Ecstasy) Screen U Benzodiazepines Scrn Ur Cocaine Metabolite U Marijuana (THC) Screen Ethyl Alcohol mg/dL 06/16/19 06/16/19 06/16/19 04:21 04:21 04:21 WBC 7.55 RBC 3.95 L Hgb 11.6 L POC Hgb Hct 35.1 L POC Hct MCV 88.9 MCH 29.4 MCHC 33.0 RDW Std Deviation 48.0 H RDW Coeff of Dante 14.7 H Plt Count 136 MPV 10.3 Immature Gran % (Auto) 0.1 Neut % (Auto) 87.1 Lymph % (Auto) 6.5 [place] % (Auto) 6.2 Eos % (Auto) 0.0 Baso % (Auto) 0.1 Immature Gran # (Auto) 0.01 Neut # (Auto) 6.57 H Lymph # (Auto) 0.49 L [place] # (Auto) 0.47 Eos # (Auto) 0.00 Baso # (Auto) 0.01 PT 10.5 INR 1.0 Activ Coag Time Kaolin POC Sodium Sodium POC Potassium Potassium POC Chloride Chloride Carbon Dioxide POC Total CO2 Anion Gap POC Anion Gap POC BUN BUN Creatinine POC Creatinine Est Cr Clr Drug Dosing Est GFR ( Amer) Est GFR (Non-Af Amer) BUN/Creatinine Ratio Glucose POC Glucose POC Glucose (other) Lactate 3.9 H* Calcium POC Ioniz Calcium Tank Ionized Calcium Magnesium Total Bilirubin Direct Bilirubin AST ALT Alkaline Phosphatase Total Creatine Kinase Troponin I Total Protein Albumin Globulin Albumin/Globulin Ratio Lipase TSH Free T4 Urine Color Urine Appearance Urine pH Ur Specific [place] Urine Protein Urine Glucose (UA) Urine Ketones Urine Blood Urine Nitrite Urine Bilirubin Urine Urobilinogen Ur Leukocyte Esterase Urine WBC (Auto) Urine RBC (Auto) U Hyaline Cast (Auto) U Epithel Cells (Auto) Urine Bacteria (Auto) Ur Renal Epithelial Cell Nasal Screen MRSA (PCR) Salicylates Urine Opiates Screen Ur Methadone, Qual Acetaminophen Urine Barbiturates Ur Phencyclidine (PCP) U Amphetamin/Meth Scrn MDMA (Ecstasy) Screen U Benzodiazepines Scrn Ur Cocaine Metabolite U Marijuana (THC) Screen Ethyl Alcohol mg/dL 06/16/19 06/16/19 04:21 08:23 WBC RBC Hgb POC Hgb Hct POC Hct MCV MCH MCHC RDW Std Deviation RDW Coeff of Dante Plt Count MPV Immature Gran % (Auto) Neut % (Auto) Lymph % (Auto) [place] % (Auto) Eos % (Auto) Baso % (Auto) Immature Gran # (Auto) Neut # (Auto) Lymph # (Auto) [place] # (Auto) Eos # (Auto) Baso # (Auto) PT INR Activ Coag Time Kaolin POC Sodium Sodium POC Potassium Potassium POC Chloride Chloride Carbon Dioxide POC Total CO2 Anion Gap POC Anion Gap POC BUN BUN Creatinine POC Creatinine Est Cr Clr Drug Dosing Est GFR ( Amer) Est GFR (Non-Af Amer) BUN/Creatinine Ratio Glucose POC Glucose 102 H 112 H POC Glucose (other) Lactate Calcium POC Ioniz Calcium Tank Ionized Calcium Magnesium Total Bilirubin Direct Bilirubin AST ALT Alkaline Phosphatase Total Creatine Kinase Troponin I Total Protein Albumin Globulin Albumin/Globulin Ratio Lipase TSH Free T4 Urine Color Urine Appearance Urine pH Ur Specific [place] Urine Protein Urine Glucose (UA) Urine Ketones Urine Blood Urine Nitrite Urine Bilirubin Urine Urobilinogen Ur Leukocyte Esterase Urine WBC (Auto) Urine RBC (Auto) U Hyaline Cast (Auto) U Epithel Cells (Auto) Urine Bacteria (Auto) Ur Renal Epithelial Cell Nasal Screen MRSA (PCR) Salicylates Urine Opiates Screen Ur Methadone, Qual Acetaminophen Urine Barbiturates Ur Phencyclidine (PCP) U Amphetamin/Meth Scrn MDMA (Ecstasy) Screen U Benzodiazepines Scrn Ur Cocaine Metabolite U Marijuana (THC) Screen Ethyl Alcohol mg/dL Diagnostic Findings Echocardiogram performed yesterday afternoon revealed mildly reduced LV systolic function with regional wall motion abnormality involving severe hypokinesis and akinesis of the posterior and inferior gauthier. Also severe mitral regurgitation. ECG Additional Comments: Sinus bradycardia.
[2019-06-16] MEDS: CLOPIDOGREL BISULFATE 75 MG TAB PO SCH (09:29)
--- NOTE | 2019-06-16 09:29 | Ultrasound Report ---
ABDOMINAL ULTRASOUND, RIGHT UPPER QUADRANT HISTORY: elevated labs and nausea and vomiting. COMPARISON: Abdominal ultrasound 02/07/2017. FINDINGS: Pancreas: The body and tail are obscured by overlying bowel gas. Normal echotexture within the pancre atic head. No change in the mild pancreatic duct dilatation at 4 mm. Liver: No change in the intrahepatic bile duct dilatation. No hepatic masses. Gallbladder: The gallbladder remains distended. There is gallbladder wall edema along the hepatic tiffani face and trace pericholecystic ascites. This has progressed in the interval. The gallbladder wall jeff ma results in gallbladder wall thickening up to 1.1 cm. No definite stones. The patient's describes t enderness over lying the gallbladder suggesting the possibility of a sonographic Gotti's sign. CBD: Dilated up to 1.4 cm. This is similar to the prior study. Right kidney: Echogenic and atrophic right kidney, unchanged. IMPRESSION: 1. Gallbladder wall edema primarily along the hepatic surface and trace pericholecystic fluid. This h as progressed in the interval. There are no gallstones. The patient describes tenderness overlying th e gallbladder during scanning raises the possibility of a sonographic Gotti sign. Therefore, the gal lbladder wall thickening/edema is nonspecific and could be due to the diffuse edematous state. An acu te cholecystitis could also have a similar appearance. Clinical correlation recommended. 2. No change in the intra and extra hepatic bile duct dilatation. Electronically signed by: Srikanth Ferrell M.D. 06/16/2019 9:27 AM
[2019-06-16] MEDS ORDERED: PIPERACILL/TAZOBAC CONSULT ACTIVE PRN (09:33)
--- NOTE | 2019-06-16 09:57 | Critical Care Progress Note ---
Date of Service June 16, 2019 Assessment & Plan (1) Admitted to intensive care unit: 69-year-old old male was admitted with acute STEMI and was taken to the cardiac Track Watchman status post stent placement. Neuro: Overall patient remains stable and was extubated yesterday and is moving all his extremities and is alert awake and oriented. Respiratory: The patient was extubated yesterday. Currently he is on 2 L oxygen and is maintaining his saturation 98 to 99%. He does not have any distress. He was recommended for the nebulizer treatment which he is refusing. Cardiac: Patient had an acute myocardial infarction he presented with acute inferior posterior myocardial infarction that involved acute occlusion of the left circumflex system. 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 He had successful reperfusion with stenting of the circumflex vessel. The echocardiogram was done which revealed sizable infarct. The blood pressure remains in mid to high 90s. Cardiology had evaluated the pat ient and he was started on beta-polo as well as LOIS inhibitors and also on Plavix. He has refused to take Brilinta. His heart block has resolved after reperfusion. On echocardiogram he has also severe mitral regurgitation. Currently cardiology is monitoring that. The amiodarone was stopped because of his bradycardia as well as improvement in his ventricular ectopy. GI: The patient had right upper quadrant ultrasound done that revealed acute cholecystitis. We have also started him on Zosyn and he was evaluated in the past for MRCP/ERCP by GI and he had refused. We will consider requesting gastroenterology to evaluate him further and if indicated he might need cholecystectomy. ID: The patient has lymphedema of the right lower extremity. Possibility of some infection. Also he has got acute on chronic cholecystitis. The patient was started on Zosyn and will monitor him closely. Hematology: H&H is stable. His platelets and white count is also stable. Renal: The patient is making some urine. His BUN/creatinine is 22/1.40. Endocrine: Blood sugar is around 112. Overall he remains stable. He is on ICU glycemic control. (2) Acute coronary syndrome: (3) Acute respiratory distress: (4) Altered mental status: (5) Complete heart block: (6) Ventricular ectopy: (7) Acute [place] inferior lateral first episode care: (8) Respiratory failure with hypoxia: (9) Acute myocardial infarction: (10) Lymphedema of right lower extremity: Subjective The patient was seen and examined by me. He still not able to eat anything. Every time he tries to eat or drink he is having vomiting. We had done a stat ultrasound of the right upper quadrant and that was consistent with acute cholecystitis also dilatation of the bile duct and fluids around the gallbladder. His AST and ALT are also elevated. The patient has been refusing for loss of medications including the inhalers and blood thinner as well. Cardiology has come and discussed with the patient and he was started on Plavix. He denies having any chest pain or palpitations. Also denies having any shortness of breath. He does not have any abdominal pain but he has got nausea and vomiting. Review of Systems Review of Systems: Total 12 systems reviewed and they are negative except mentioned as above in history. Physical Exam Physical Exam: 69-year-old male currently intubated and sedated. Patient was agitated at times and required some additional sedation. HEENT: . The sclerae are anicteric. Pupils are reactive to light. Unable to examine the oral cavity because he is intubated. Neuro: Could not be obtained due to sedation and he remains on a ventilator. Neck: Patient's neck is supple. He has palpable carotid pulses bilaterally without bruits on auscultation. There is no evidence of jugular venous distention. The thyroid is not enlarged. No cervical or supraclavicular adenopathy. Lungs: Bilateral coarse breathing with few scattered rhonchi, no wheezing no crackles heard. Cardiac: Sinus rhythm at 56. S1-S2 heard and no murmur or rubs are appreciated. Pulses: The patient has palpable radial pulses bilaterally that are equal in intensity Abdomen: He did have some distended veins in the left lower abdomen. Abdomen is soft nontender bowel sounds are positive. Unable to palpate any mass. Extremities: There was no evidence of hypoperfusion. He has significant lymphedema and skin changes in the right leg. Skin: The patient has chronic changes on both of his legs and is homeless. Results & Data Vital Signs (Past 12 Hours) Vital Signs Temp Pulse Resp BP Pulse Ox 06/16/19 06:00 56 L 15 96/67 L 96 06/16/19 05:00 56 L 20 91/62 L 97 06/16/19 04:00 36.5 C 60 12 96/66 L 97 06/16/19 03:00 58 L 20 99/69 L 96 06/16/19 02:00 58 L 24 98/68 L 94 06/16/19 01:00 57 L 23 105/74 99 06/16/19 00:00 57 L 20 104/72 94 06/15/19 23:30 56 L 25 H 110/76 95 06/15/19 23:00 57 L 18 101/69 98 06/15/19 22:30 59 L 14 108/77 98 06/15/19 22:00 56 L 19 114/77 98 Laboratory Results 06/16/19 04:21 06/16/19 01:33 Diagnostic Findings ABDOMINAL ULTRASOUND, RIGHT UPPER QUADRANT HISTORY: elevated labs and nausea and vomiting. COMPARISON: Abdominal ultrasound 02/07/2017. FINDINGS: Pancreas: The body and tail are obscured by overlying bowel gas. Normal echotexture within the pancreatic head. No change in the mild pancreatic duct dilatation at 4 mm. Liver: No change in the intrahepatic bile duct dilatation. No hepatic masses. Gallbladder: The gallbladder remains distended. There is gallbladder wall edema along the hepatic surface and trace pericholecystic ascites. This has progressed in the interval. The gallbladder wall edema results in gallbladder wall thickening up to 1.1 cm. No definite stones. The patient's describes tenderness over lying the gallbladder suggesting the possibility of a sonographic Gotti's sign. CBD: Dilated up to 1.4 cm. This is similar to the prior study. Right kidney: Echogenic and atrophic right kidney, unchanged. IMPRESSION: 1. Gallbladder wall edema primarily along the hepatic surface and trace pericholecystic fluid. This has progressed in the interval. There are no gallstones. The patient describes tenderness overlying the gallbladder during scanning raises the possibility of a sonographic Gotti sign. Therefore, the gallbladder wall thickening/edema is nonspecific and could be due to the diffuse edematous state. An acute cholecystitis could also have a similar appearance. Clinical correlation recommended. 2. No change in the intra and extra hepatic bile duct dilatation. Electronically signed by: Srikanth Ferrell M.D. 06/16/2019 9:27 AM Medications Administered Current Inpatient Medications Albuterol (Duoneb) 3 ml NEB Q4R MIRZA Stop: 07/15/19 14:31 Last Admin: 06/16/19 08:32 Dose: Not Given Documented by: Aspirin (Ecotrin Ectab) 81 mg PO QAM MIRZA Stop: 07/16/19 08:59 Last Admin: 06/16/19 07:55 Dose: 81 mg Documented by: Atorvastatin Calcium (Lipitor) 80 mg PO QAM [facility] Stop: 07/16/19 08:59 Last Admin: 06/16/19 07:55 Dose: 80 mg Documented by: Clopidogrel [facility] (Plavix) [facility] Stop: 07/16/19 08:59 Last Admin: 06/16/19 09:29 Dose: 75 mg Documented by: Dextrose (Dextrose 50%) 25 - 50 ml IV UD PRN; Protocol PRN Reason: Hypoglycemia Protocol Stop: 07/15/19 14:31 Glucagon (Glucagen) 1 mg SQ UD PRN; Protocol PRN Reason: Hypoglycemia Protocol Stop: 07/15/19 14:31 Glucose (Glucose 40%) 15 - 30 gm PO UD PRN; Protocol PRN Reason: Hypoglycemia Protocol Stop: 07/15/19 14:31 Glucose (Dex4 Glucose) 4 - 8 tabs PO UD PRN; Protocol PRN Reason: Hypoglycemia Protocol Stop: 07/15/19 14:31 Piperacillin Sod/Tazobactam (Sod 3.375 gm/ Dextrose) 115 mls @ 28.75 mls/hr IV Q8H MIRZA; Protocol Stop: 06/26/19 09:44 Insulin Aspart (Novolog Flexpen) 0 units SC Q4 MIRZA Stop: 07/15/19 15:59 Last Admin: 06/16/19 08:32 Dose: Not Given Documented by: Miscellaneous (Icu Protocol For Hyperglycemia) 1 ea N/A PRN PRN; Protocol PRN Reason: Hyperglycemia Protocol Stop: 06/17/19 14:31 Miscellaneous (Carbohydrates For Hypoglycemia) 15 - 30 gm PO UD PRN PRN Reason: Hypoglycemia Treatment Stop: 07/15/19 14:31 Miscellaneous Information (Consult Glycemic Management Pharmacy) 1 ea N/A UD PRN; Protocol PRN Reason: Consult Stop: 07/15/19 14:54 Miscellaneous Information (Consult) 1 ea N/A UD PRN PRN Reason: Consult Stop: 07/16/19 09:32 Morphine Sulfate (Morphine Sulfate) 2 mg IV Q2HWA PRN PRN Reason: Pain Stop: 06/29/19 17:48 Last Admin: 06/16/19 06:20 Dose: 2 mg Documented by: PG Care Time/CCT Total # of Minutes Spent Total Time Spent with Patient: Total time spent is greater than 50% in coordination of care (as documented) at patient's floor/unit and/or counseling patient: Critical Care Time: Yes Total Critical Care Time: 35 (1) Altered mental status Altered mental status type: stupor Qualified Code(s): R40.1 - Stupor
[2019-06-16] MEDS ORDERED: PIPERACILLIN/TAZOBACTAM 3.375 GM in DEXTROSE 5% 100 ML IV ONE (10:00)
[2019-06-16] MEDS ORDERED: MIDAZOLAM HCL 5 MG/ML VIAL IV ONE (11:40)
[2019-06-16] MEDS ORDERED: INSULIN ASPART 100 UNITS/ML 3 ML PEN SC SCH (12:30)
--- NOTE | 2019-06-16 14:43 | Pharmacy Report ---
Glycemic Control Consultation - Date of Service June 16, 2019 - Scope Scope: Glycemic Pharmacist consulted by Dr Britt on 06/15/19 for glycemic control and to write orders per [facility] inpatient glycemic control protocol - Objective Weight: 70.6 kg Accuchecks BSG (last 24hrs): 06/15/19 06/15/19 06/16/19 16:12 20:47 00:18 Glucose POC Glucose 112 H 95 78 06/16/19 06/16/19 06/16/19 01:33 04:21 08:23 Glucose 97 POC Glucose 102 H 112 H 06/16/19 11:41 Glucose POC Glucose 100 H Laboratory Data (last 24hrs): 06/15/19 06/15/19 06/16/19 15:10 15:10 01:33 Potassium 3.4 L Cancelled 3.8 Carbon Dioxide 22 Anion Gap 7.0 Creatinine 1.40 Est Cr Clr Drug Dosing 49.5 HbA1c: pending for 06/17/19 - Recent Pertinent Medications Outpatient Anti-diabetic Regimen: * N/A * A1c = [] % [date] Risk Factors for Insulin Resistance: * STEMI/acute stress * Infection * Pressor - Assessment & Plan Assessment & Plan: ASSESSMENT: * 69yo male with unknown history of DM- A1c pending for tomorrow morning * A1c > 6.5% is diagnostic for diabetes * Pt only with hyperglycemia on admission with acute stress, infection, pressors, etc. BSGs all well controlled now with minimal insulin (15 units of Lantus x 1 ) * Will continue conservative SQ basal bolus insulin regimen and titrate based on BSG trends PLAN FOR INPATIENT GLYCEMIC CONTROL: * Basal insulin * Lantus SQ HS - dose based on BSG * BSG below 150mg/dl --> 0 units * BSG 150-200 mg/dl --> 5 units * BSG >200mg/dl --> 10 units * Bolus insulin * NovoLog per scale ACHS or Q6hrs while NPO * Goal Range: Low 110 mg/dL - High 150 mg/dL * Correction Factor: 25 mg/dL/unit * Nutritional / Prandial insulin per carb ratio of 1 unit per 8 grams CHO consumed * Please note that the plan above was derived based on current level of insulin resistance and hospital stress. These recommendations are appropriate for inpatient admission only. Plan of care upon discharge will need to be reassessed to avoid potential outpatient hypo/hyperglycemia. Thank you.
[2019-06-16] MEDS ORDERED: SODIUM CHLORIDE 0.9% 500 ML IV SCH (15:00)
[2019-06-16] MEDS ORDERED: Nursing to Pharmacy Communication ONE (15:23)
[2019-06-16] MEDS: SODIUM CHLORIDE 0.9% 1000ML 1,000 ML IV SCH (15:59)
[2019-06-16] MEDS: PIPERACILLIN/TAZOBACTAM 3.375 GM in DEXTROSE 5% 100 ML IV SCH ×2 (16:00→23:47)
[2019-06-16] MEDS: CARVEDILOL 3.125 MG TAB PO SCH (20:28)
[2019-06-16] MEDS ORDERED: INSULIN GLARGINE SOLOSTAR 100 UNITS/ML 3 ML PEN SC SCH (21:00)
[2019-06-17] MEDS: SODIUM CHLORIDE 0.9% 1000ML 1,000 ML IV SCH ×2 (04:13→16:55)
[2019-06-17 04:21] LABS: Hematocrit (blood only) 32.3 % (42-52); Hemoglobin 10.6 g/dL (14.0-18.0); Immature Granulocytes # (auto) 0.02 K/uL (0.00-0.02); Immature Granulocytes % (auto) 0.4 %; Lymphocytes # (auto) 0.14 K/uL (1.2-3.4); Lymphocytes % (auto) 2.6 %; Mean Corpuscular Hgb Conc 32.8 g/dL (32-36); Mean Corpuscular Volume 88.5 fL (80-100); Mean Platelet Volume 10.4 fL (7.4-10.4); Monocytes % (auto) 5.6 %; Neutrophils % (auto) 91.4 %; Platelet Count 103 K/uL (130-400); RDW Coefficient of Variation 15.2 % (11.5-14.5); RDW Standard Deviation 49.9 fL (36.4-46.3); Red Blood Count 3.65 M/uL (4.7-6.1); White Blood Count 5.36 K/uL (4.8-10.8)
[2019-06-17 04:42] LABS: Albumin Level 2.5 gm/dl (3.4-5.0); BUN Creatinine Ratio 19.4 (10-20); Calcium 8.1 mg/dl (8.5-10.1); Creatinine Clr Calc Pharmacy 40.8 ml/min; Est GFR (African American) 47.3; Est GFR (Non-African American) 40.8; Potassium 4.3 mmol/L (3.5-5.1)
[2019-06-17 04:44] LABS: Albumin Globulin Ratio 0.7 (0.9-2); Bilirubin,Total 0.7 mg/dl (0.2-1); Globulin 3.6 gm/dl (2.5-4.0); Total Protein 6.1 gm/dl (6.4-8.2)
[2019-06-17] MEDS: INSULIN ASPART 100 UNITS/ML 3 ML PEN SC SCH ×4 (05:54→21:05)
[2019-06-17] MEDS: MoRPHine SULFATE 2 MG/ML CARP IV PRN (05:56)
[2019-06-17 06:46] LABS: Estimated Average Glucose 117 mg/dl; Hemoglobin A1C 5.7 % (4.5-5.6)
[2019-06-17] MEDS: PIPERACILLIN/TAZOBACTAM 3.375 GM in DEXTROSE 5% 100 ML IV SCH ×2 (08:24→16:51)
[2019-06-17 09:43] LABS: iSTAT Arterial Blood Gas HCO3 16 meg/L (19-24); iSTAT Arterial Blood Gas pCO2 29 mmHg (35-46); iSTAT Arterial Blood Gas pH 7.35 (7.35-7.45); iSTAT Arterial Blood Gas pO2 380 mmHg (80-95); iSTAT Carbon Dioxide 17 mEq/l (24-31)
[2019-06-17 09:44] LABS: iSTAT Sample Type Arterial
[2019-06-17 09:48] LABS: iSTAT Creatinine 1.2 mg/dl (0.6-1.3); iSTAT Hemoglobin 10.2 g/dl (14.0-18.0); iSTAT Ionized Calcium 1.09 mmol/l (1.12-1.32); iSTAT Potassium 3.7 mEq/L (3.3-5.0)
[2019-06-17] MEDS: ASPIRIN 81 MG ECTAB PO SCH (09:55)
[2019-06-17] MEDS: CARVEDILOL 3.125 MG TAB PO SCH ×2 (09:55→11:12)
[2019-06-17] MEDS: ATORVASTATIN 40 MG TAB PO SCH (09:55)
[2019-06-17] MEDS: CLOPIDOGREL BISULFATE 75 MG TAB PO SCH (09:55)
--- NOTE | 2019-06-17 10:12 | Cardiology Progress Note ---
Date of Service June 17, 2019 Assessment & Plan (1) Acute myocardial infarction: From cardiovascular standpoint appears to be stable. He is not appear to be in overt heart failure or have pulmonary vascular congestion. Watch his fluid status closely. His hemodynamics have improved. His pulses slightly higher his blood pressure is much better today. This may allow us to increase his carvedilol and start Jt inhibition as well. His dual anti-platelet therapy with switch from Brilinta to aspirin and Plavix yesterday at the request of the patient. It is imperative that he take these medications specifically his aspirin and Plavix. He has had some difficulty keeping medicines down and occasionally he refused certain interventions. This may be the limiting factor in his recovery. He is certainly at risk of recurrent infarction and due to poor compliance with medical therapy (2) Complete heart block: This resolved with reperfusion. No significant pauses or bradycardia currently. Will continue with carvedilol. (3) Mitral regurgitation: His echocardiogram demonstrated severe mitral regurgitation. This may be related to his acute infarct. Curiously, he does not have a loud murmur on examination. Will monitor his volume status closely. Hopefully with improvement in his LV function and recovery from his LA will see some improvement in the mitral regurgitation as well. (4) Ventricular ectopy: This appears to be resolved. Will continue beta-polo therapy. Subjective This morning the patient wanted to have some ailin rarely or Sprite. He claims to be thirsty. He noted some mild abdominal discomfort and has vomited this morning. He states that the mild chest pain he had yesterday is nearly resolved. He did not report any ambulation. Review of Systems Review of Systems: Per HPI Physical Exam Physical Exam: The patient is alert and oriented. Mood and affect appeared normal. He answered all questions appropriately. HEENT: Pupils are equal and reactive to light and accommodation. Extraocular movements are intact. The sclerae are anicteric. Neuro: Cranial nerves intact Lungs: Clear to auscultation bilaterally. He has good air movement without use of accessory muscles. No rales wheezes or rhonchi. Cardiac: Heart demonstrates a regular rate and rhythm. Normal S1 and S2. No murmurs on examination. Pulses: The patient has palpable radial pulses bilaterally that are equal in intensity Extremities: There was no evidence of hypoperfusion. There is no cyanosis or clubbing. Chronic changes of the right lower extremity due to lymphedema. Her lower extremity was bandaged. Skin: I did not appreciate any rashes on examination today. Results & Data Vital Signs (Past 12 Hours) Vital Signs Temp Pulse Resp BP Pulse Ox 06/17/19 08:24 36.9 C 63 14 129/85 92 06/17/19 04:00 36.6 C 62 16 113/74 96 06/17/19 00:21 36.5 C 64 18 107/71 95 Laboratory Results Abnormal Lab Results 06/15/19 06/15/19 06/16/19 11:37 11:43 11:41 WBC RBC Hgb POC Hgb 10.2 L Hct POC Hct 30 L MCV MCH MCHC RDW Std Deviation RDW Coeff of Dante Plt Count MPV Immature Gran % (Auto) Neut % (Auto) Lymph % (Auto) Pickett % (Auto) Eos % (Auto) Baso % (Auto) Immature Gran # (Auto) Neut # (Auto) Lymph # (Auto) Pickett # (Auto) Eos # (Auto) Baso # (Auto) Specimen Type Arterial POC pH 7.35 POC pCO2 29 L POC pO2 380 H POC HCO3 16 L POC Base Excess -10.0 L POC ABG O2 Sat 100.0 H POC Sodium 140 Sodium POC Potassium 3.7 Potassium POC Chloride 106 Chloride Carbon Dioxide POC Total CO2 19 L 17 L Anion Gap POC Anion Gap 20.0 POC BUN 21 H BUN Creatinine POC Creatinine 1.2 Est Cr Clr Drug Dosing Est GFR ( Amer) Est GFR (Non-Af Amer) BUN/Creatinine Ratio Glucose POC Glucose 100 H POC Glucose (other) 241 H Estimat Average Glucose Hemoglobin A1c Calcium POC Ioniz Calcium Tank 1.09 L Total Bilirubin AST ALT Alkaline Phosphatase Total Protein Albumin Globulin Albumin/Globulin Ratio Lipase 06/16/19 06/16/19 06/16/19 18:27 18:28 18:59 WBC RBC Hgb POC Hgb Hct POC Hct MCV MCH MCHC RDW Std Deviation RDW Coeff of Dante Plt Count MPV Immature Gran % (Auto) Neut % (Auto) Lymph % (Auto) Pickett % (Auto) Eos % (Auto) Baso % (Auto) Immature Gran # (Auto) Neut # (Auto) Lymph # (Auto) Pickett # (Auto) Eos # (Auto) Baso # (Auto) Specimen Type POC pH POC pCO2 POC pO2 POC HCO3 POC Base Excess POC ABG O2 Sat POC Sodium Sodium POC Potassium Potassium POC Chloride Chloride Carbon Dioxide POC Total CO2 Anion Gap POC Anion Gap POC BUN BUN Creatinine POC Creatinine Est Cr Clr Drug Dosing Est GFR ( Amer) Est GFR (Non-Af Amer) BUN/Creatinine Ratio Glucose POC Glucose 62 L* 75 76 POC Glucose (other) Estimat Average Glucose Hemoglobin A1c Calcium POC Ioniz Calcium Tank Total Bilirubin AST ALT Alkaline Phosphatase Total Protein Albumin Globulin Albumin/Globulin Ratio Lipase 06/16/19 06/16/19 06/17/19 20:31 23:45 04:00 WBC 5.36 RBC 3.65 L Hgb 10.6 L POC Hgb Hct 32.3 L POC Hct MCV 88.5 MCH 29.0 MCHC 32.8 RDW Std Deviation 49.9 H RDW Coeff of Dante 15.2 H Plt Count 103 L MPV 10.4 Immature Gran % (Auto) 0.4 Neut % (Auto) 91.4 Lymph % (Auto) 2.6 Pickett % (Auto) 5.6 Eos % (Auto) 0.0 Baso % (Auto) 0.0 Immature Gran # (Auto) 0.02 Neut # (Auto) 4.90 Lymph # (Auto) 0.14 L Pickett # (Auto) 0.30 Eos # (Auto) 0.00 Baso # (Auto) 0.00 Specimen Type POC pH POC pCO2 POC pO2 POC HCO3 POC Base Excess POC ABG O2 Sat POC Sodium Sodium POC Potassium Potassium POC Chloride Chloride Carbon Dioxide POC Total CO2 Anion Gap POC Anion Gap POC BUN BUN Creatinine POC Creatinine Est Cr Clr Drug Dosing Est GFR ( Amer) Est GFR (Non-Af Amer) BUN/Creatinine Ratio Glucose POC Glucose 74 84 POC Glucose (other) Estimat Average Glucose Hemoglobin A1c Calcium POC Ioniz Calcium Tank Total Bilirubin AST ALT Alkaline Phosphatase Total Protein Albumin Globulin Albumin/Globulin Ratio Lipase 06/17/19 06/17/19 06/17/19 04:00 04:00 05:53 WBC RBC Hgb POC Hgb Hct POC Hct MCV MCH MCHC RDW Std Deviation RDW Coeff of Dante Plt Count MPV Immature Gran % (Auto) Neut % (Auto) Lymph % (Auto) Pickett % (Auto) Eos % (Auto) Baso % (Auto) Immature Gran # (Auto) Neut # (Auto) Lymph # (Auto) Pickett # (Auto) Eos # (Auto) Baso # (Auto) Specimen Type POC pH POC pCO2 POC pO2 POC HCO3 POC Base Excess POC ABG O2 Sat POC Sodium Sodium 145 POC Potassium Potassium 4.3 POC Chloride Chloride 115 H Carbon Dioxide 20 L POC Total CO2 Anion Gap 10.0 POC Anion Gap POC BUN BUN 33 H Creatinine 1.70 H D POC Creatinine Est Cr Clr Drug Dosing 40.8 Est GFR ( Amer) 47.3 Est GFR (Non-Af Amer) 40.8 BUN/Creatinine Ratio 19.4 Glucose 69 L POC Glucose 78 POC Glucose (other) Estimat Average Glucose 117 Hemoglobin A1c 5.7 H Calcium 8.1 L POC Ioniz Calcium Tank Total Bilirubin 0.7 AST 609 H ALT 83 H Alkaline Phosphatase 83 Total Protein 6.1 L Albumin 2.5 L Globulin 3.6 Albumin/Globulin Ratio 0.7 L Lipase 32 L Diagnostic Findings Abdominal ultrasound suggesting cholecystitis ECG Additional Comments: Telemetry demonstrated normal sinus rhythm and some occasional sinus bradycardia. No additional ventricular arrhythmias.
[2019-06-17] MEDS: LISINOPRIL 2.5 MG TAB PO SCH (11:13)
[2019-06-17] MEDS: DEXTROSE 50% 50 ML SYRINGE IV PRN ×2 (11:54→16:39)
--- NOTE | 2019-06-17 12:35 | Pharmacy Report ---
Pharmacy Glycemic Short Note 2 - Date of Service June 17, 2019 - Glycemic Short BSG Results (Last 24 hours): 06/15/19 06/16/19 06/16/19 11:37 18:27 18:28 Glucose POC Glucose 62 L* 75 POC Glucose (other) 241 H 06/16/19 06/16/19 06/16/19 18:59 20:31 23:45 Glucose POC Glucose 76 74 84 POC Glucose (other) 06/17/19 06/17/19 06/17/19 04:00 05:53 11:08 Glucose 69 L POC Glucose 78 56 L* POC Glucose (other) 06/17/19 06/17/19 06/17/19 11:09 11:27 11:28 Glucose POC Glucose 62 L* 57 L* 60 L* POC Glucose (other) 06/17/19 06/17/19 06/17/19 11:45 11:48 12:08 Glucose POC Glucose 55 L* 56 L* 94 POC Glucose (other) OUTPATIENT ANTIDIABETIC REGIMEN: * n/a * a1c 5.7% 06/17/19 ASSESSMENT: * Patient's BSGs have ranged from 50s-112 since initial hyperglycemia, expect hyperglycemia was from stress response. * A1c 5.7% meets criteria for pre-diabetes, not currently on any home medications * Patient has not received any insulin sine receiving 15 units of lantus in the afternoon 06/15. * Removed current lantus orders and removed carb ratio. Patient is NPO. * Will continue to monitor PLAN FOR INPATIENT GLYCEMIC CONTROL: * Hold outpatient oral diabetes medications * Bolus insulin * NovoLog per scale ACHS or Q6hrs while NPO * Goal Range: Low 110 mg/dL - High 150 mg/dL * Correction Factor: 25 mg/dL/unit
--- NOTE | 2019-06-17 15:04 | Hospitalist Progress Note ---
Date of Service June 17, 2019 Assessment & Plan (1) Acute myocardial infarction: Patient is a 69-year-old male with history of schizophrenia, hypertension, DVT, lymphedema, and right lower extremity, chronic wounds, testicular carcinoma, tobacco abuse, known to our practice for multiple admissions in the past, homeless, came to ED in an unresponsive state. Noted to have inferior STEMI, was taken to the Out Patient Therapist emergentlyhad a stent placed in mid circumflex and transferred to ICU for further care. INFERIOR STEMI Multiple risk factorsNon compliant with medications, hypertension, tobacco abuse, self-neglect, homeless situation, unknown compliance Status post cardiac catheterization done emergently on 06/15/2019occluded mid circumflex, single bare-metal stent placed, chronically occluded mid RCA, moderate 50 to 60% LAD, intraprocedure V. fib requiring defibrillation, Atrial fibrillation. Continue with dual antiplatelet for at least one year. Continue with high dose Atorvastatin 80 mg q HS Troponin peaked up to more than 200. Echocardiogram EF 40 to 45%, grade 2 diastolic dysfunction, wall motion abnormalities Cardiology on board. Appreciate inputs ACUTE CHOLECYSTITIS Ultrasound shows acute cholecystitis. Does have right upper quadrant pain/tenderness, nausea. No more episodes of vomiting. No fever, chills. No leukocytosis NPO --> Advance to clear liquid -IV Zosyn - Day 2 -IV Fluids -Tylenol PRN, Avoid IV morphine- discontinued. IV Zofran - Avoiding due to prolonged QTC -US- Acute cholecystitis, no change in bile duct dilation - 1.4 cm, LFTs elevated, no increase in ALP/direct bilirubin, therefore do not suspect choledocholithiasis HYPOGLYCEMIA BGs in range of 50-110s. Hemoglobin A1c 5.7. Received Lantus 15 units in afternoon of 06/15/2019. No Lantus received since . Patient is also n.p.o. -IV Dextrose PRN -Starting clear liquid now -Monitor BGs ACUTE HYPOXIC RESPIRATORY FAILURE- Resolved Required Intubation on arrival to ED due to unresponsive state/ STEMI -S/P Intubation on 06/15--> Self extubated overnight --> Doing well on RA -CC on board. Appreciate inputs HX OF ATRIAL FIBRILLATION Intraoperatively had VF requiring defrillation -On IV Amiodarone drip - Off it now HTN Hx of non compliance and takes medications on and off when he feels like - Per prior notes BP is borderline low -Was on lisinopril 30 mg , Clonidine patch in past -Continue to monitor and accordingly add meds as tolerated HX OF SCHIZOPHRENIA Paranoid schizophrenia per records BILATERAL LOWER EXTREMITIES -Wound care consult HX OF TESTICULAR TUMOR S/P SURGERY HX OF DVT Not a candidate for anticoagulation given homelessness, non compliance DVT PROPHYLAXIS SCDS/ TEDS DISPOSITION Continue with PCU monitoring 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 Patient does complain of nausea, dry heaving but no episodes of vomiting. Does complain of abdominal pain more on right side. No fever, chills. On and off does have upper chest pain. Did refuses IV dextrose for hypoglycemia but later agreed to take it. Physical Exam Physical Exam: GENERAL- AAOX3, mild distress secondary to vomiting. Disheveled + NECK- Supple, no JVD LUNGS- Air entry bilaterally equal. No rales, rhonchi, crackles, wheezes heard. HEART- Regular rate and rhythm. No murmurs ABDOMEN- Soft, mild tenderness in right upper quadrant, non distended, Bowel sounds heard. EXTREMITIES- Good peripheral pulses, no edema NEUROMUSCULAR- AAOX3, Grossly no focal deficits Results & Data Vital Signs (Past 12 Hours) Vital Signs Temp Pulse Resp BP Pulse Ox 06/17/19 12:00 36.8 C 63 24 126/80 94 06/17/19 11:34 94 06/17/19 11:20 36.8 C 24 126/80 92 06/17/19 11:00 88 L 06/17/19 08:24 36.9 C 63 14 129/85 92 06/17/19 04:00 36.6 C 62 16 113/74 96
[2019-06-17] MEDS: TRAMADOL HCL 50 MG TABLET PO PRN (16:50)
[2019-06-17] MEDS: D5W AND NSS 1,000 ML IV SCH (17:28)
[2019-06-17] MEDS: CARVEDILOL 6.25 MG TAB PO SCH (21:04)
[2019-06-18] MEDS: PIPERACILLIN/TAZOBACTAM 3.375 GM in DEXTROSE 5% 100 ML IV SCH ×2 (01:05→08:31)
[2019-06-18] MEDS: D5W AND NSS 1,000 ML IV SCH (05:19)
[2019-06-18] MEDS: TRAMADOL HCL 50 MG TABLET PO PRN ×2 (05:28→20:15)
[2019-06-18 06:15] LABS: Hematocrit (blood only) 35.8 % (42-52); Hemoglobin 11.7 g/dL (14.0-18.0); Mean Corpuscular Hemoglobin 29.3 pg (25-34); Mean Corpuscular Hgb Conc 32.7 g/dL (32-36); Mean Corpuscular Volume 89.5 fL (80-100); Platelet Count 123 K/uL (130-400); RDW Standard Deviation 49.1 fL (36.4-46.3); White Blood Count 7.24 K/uL (4.8-10.8)
[2019-06-18 06:42] LABS: Albumin Level 2.4 gm/dl (3.4-5.0); Calcium 7.9 mg/dl (8.5-10.1); Creatinine Clr Calc Pharmacy 36.9 ml/min; Est GFR (African American) 42.2; Est GFR (Non-African American) 36.4; Potassium 3.9 mmol/L (3.5-5.1)
[2019-06-18 06:45] LABS: Albumin Globulin Ratio 0.6 (0.9-2); Globulin 3.9 gm/dl (2.5-4.0); Total Protein 6.3 gm/dl (6.4-8.2)
[2019-06-18] MEDS: LISINOPRIL 2.5 MG TAB PO SCH (08:24)
[2019-06-18] MEDS: ATORVASTATIN 40 MG TAB PO SCH (08:24)
[2019-06-18] MEDS: CARVEDILOL 6.25 MG TAB PO SCH ×2 (08:24→20:16)
[2019-06-18] MEDS: CLOPIDOGREL BISULFATE 75 MG TAB PO SCH (08:54)
[2019-06-18] MEDS: ASPIRIN 81 MG ECTAB PO SCH (08:54)
[2019-06-18] MEDS: INSULIN ASPART 100 UNITS/ML 3 ML PEN SC SCH ×4 (11:41→21:36)
--- NOTE | 2019-06-18 14:00 | Hospitalist Progress Note ---
Date of Service June 18, 2019 Assessment & Plan (1) Acute myocardial infarction: Patient is a 69-year-old male with history of schizophrenia, hypertension, DVT, lymphedema, and right lower extremity, chronic wounds, testicular carcinoma, tobacco abuse, known to our practice for multiple admissions in the past, homeless, came to ED in an unresponsive state. Noted to have inferior STEMI, was taken to the Clinical Cytogeneticist emergentlyhad a stent placed in mid circumflex and transferred to ICU for further care. INFERIOR STEMI Multiple risk factorsNon compliant with medications, hypertension, tobacco abuse, self-neglect, homeless situation, unknown compliance S/P cardiac catheterization done emergently on 06/15/2019occluded mid circumflex, single bare-metal stent placed, chronically occluded mid RCA, moderate 50 to 60% LAD, intraprocedure V. fib requiring defibrillation, Atrial fibrillation. Continue with dual antiplatelet for at least one year. Continue with high dose Atorvastatin 80 mg q HS (Patient is refusing ASA, Plavix). Unable to convince him. Started on Coreg 6.25 mg twice daily, lisinopril 2.5 mg Troponin peaked up to more than 200. Echocardiogram EF 40 to 45%, grade 2 diastolic dysfunction, wall motion abnormalities Cardiology on board. Appreciate inputs ACUTE CHOLECYSTITIS Patient has had multiple episodes of cholecystitis in the past, refusing surgery. Ultrasound shows acute cholecystitis. Does have right upper quadrant pain/tenderness, nausea. No more episodes of vomiting. No fever, chills. No leukocytosis Clear liquids --> Advance to soft diet -IV Zosyn - Day 3 -IV Fluids- Discontinue -Tylenol PRN, Avoid IV narcotics. IV Zofran - Avoiding due to prolonged QTC -US- Acute cholecystitis, no change in bile duct dilation - 1.4 cm, LFTs elevated, no increase in ALP/direct bilirubin, therefore do not suspect choledocholithiasis HYPOGLYCEMIA - BGs in range of 50-110s. Hemoglobin A1c 5.7. Received Lantus 15 units in afternoon of 06/15/2019. No Lantus received since then.Patient was also NPO -IV Dextrose PRN -IV D5 NS ---> Will discontinue as starting on soft diet and BGs improving -Monitor BGs ACUTE HYPOXIC RESPIRATORY FAILURE- Required Intubation on arrival to ED due to unresponsive state/ STEMI -S/P Intubation on 06/15--> Self extubated overnight --> Doing well on RA--> Now on oxygen again -CC on board. Appreciate inputs HX OF ATRIAL FIBRILLATION Intraoperatively had VF requiring defrillation -S/P IV Amiodarone drip - Off it now HTN Hx of non compliance and takes medications on and off when he feels like - Per prior notes BP is borderline low -Was on lisinopril 30 mg , Clonidine patch in past -Started on low dose lisinopril 2.5 mg, Coreg twice daily -Continue to monitor and accordingly add meds as tolerated HX OF SCHIZOPHRENIA Paranoid schizophrenia BILATERAL LOWER EXTREMITIES -Wound care consult HX OF TESTICULAR TUMOR S/P SURGERY HX OF DVT Not a candidate for anticoagulation given homelessness, non compliance Noncompliance Patient is known to our practice for long, very noncompliant with medications or follow-up. Refusing aspirin, Plavix while in the hospital in spite of explaining the importance and risk of sudden cardiac . Doubt compliance with medications or follow-up once discharged. DVT PROPHYLAXIS SCDS/ TEDS DISPOSITION Okay to transfer to [facility] Homeless. resource development manager on board Subjective Patient is not a very reliable historian with schizophrenia. Refusing his aspirin, Plavix. Unable to convince him to take it. On and off refuses medications. Tolerating clear liquids. No vomiting episodes since then. Denies any chest pain. On 3 L of oxygen Physical Exam Physical Exam: GENERAL- AAOX3, mild distress secondary to vomiting. Disheveled + NECK- Supple, no JVD LUNGS- Air entry bilaterally equal. No rales, rhonchi, crackles, wheezes heard. HEART- Regular rate and rhythm. No murmurs ABDOMEN- Soft, mild tenderness in right upper quadrant, non distended, Bowel sounds heard. EXTREMITIES- Good peripheral pulses, no edema NEUROMUSCULAR- AAOX3, Grossly no focal deficits Results & Data Vital Signs (Past 12 Hours) Vital Signs Temp Pulse Resp BP Pulse Ox 06/18/19 11:37 36.2 C L 61 22 104/76 92 06/18/19 08:00 68 06/18/19 07:19 36.6 C 66 22 109/72 92 06/18/19 04:46 75 06/18/19 03:24 36.6 C 67 16 114/73 95
[2019-06-18] MEDS: cefTRIAXone SODIUM 1,000 MG in DEXTROSE 5% 50 ML IV SCH (15:41)
--- NOTE | 2019-06-18 16:53 | Cardiology Progress Note ---
Date of Service June 18, 2019 Assessment & Plan (1) Acute myocardial infarction: No current complications related to his inferior myocardial infarction. He has been hemodynamically and electrically stable for over 24 hours. Seems to be tolerating carvedilol and lisinopril. We may have an opportunity to increase the doses in the next day or 2. The main concern continues to be his refusal of anti-platelet agents. We switched from Brilinta to Plavix at his request but he is currently refusing Plavix in even aspirin. He seemed to have very poor insight in to the reason for using these medications. I explained him on more than 1 occasion that refusing these medications puts him at significant risk of both recurrent heart attack and dying. I spoke with the nursing staff and encouraged them to try several times today to get him to take these medications. In the absence of dual anti-platelet therapy we can anticipate repeat infarct and a very poor outcome up to and including . (2) Complete heart block: This resolved with reperfusion. Episode of bradycardia when returning from the commode earlier this morning. This likely accounts for some of the symptoms he described. Whether this was a sinus rhythm cannot entirely be de termined by the telemetry. It is very possible he had a vagal response subsequent to defecating and ambulating back to bed. (3) Mitral regurgitation: His echocardiogram demonstrated severe mitral regurgitation. This may be related to his acute infarct. Curiously, he does not have a loud murmur on examination. Will monitor his volume status closely. Hopefully with improvement in his LV function and recovery from his UT will see some improvement in the mitral regurgitation as well. (4) Ventricular ectopy: This appears to be resolved. Will continue beta-polo therapy. Subjective Patient had a variety of complaints this morning which seem to be a sense of presyncope when coming back from the commode. He states that his chest pain symptoms are improving in nearly resolved. He denied abdominal discomfort but still has difficulty with vomiting. He has been tolerating some liquids. Review of Systems Review of Systems: Per HPI Physical Exam Physical Exam: The patient is alert and oriented. Mood and affect appeared normal. He answered all questions appropriately. HEENT: Pupils are equal and reactive to light and accommodation. Extraocular movements are intact. The sclerae are anicteric. Neuro: Cranial nerves intact Lungs: Clear to auscultation bilaterally. He has good air movement without use of accessory muscles. No rales wheezes or rhonchi. Cardiac: Heart demonstrates a regular rate and rhythm. Pulses: The patient has palpable radial pulses bilaterally that are equal in intensity Results & Data Vital Signs (Past 12 Hours) Vital Signs Temp Pulse Resp BP Pulse Ox 06/18/19 15:11 36.5 C 66 20 102/73 94 06/18/19 11:37 36.2 C L 61 22 104/76 92 06/18/19 08:00 68 06/18/19 07: 36.6 C 66 22 109/72 92 Laboratory Results Abnormal Lab Results 06/17/19 06/17/19 06/17/19 16:57 17:51 20:39 WBC RBC Hgb Hct MCV MCH MCHC RDW Std Deviation RDW Coeff of Dante Plt Count MPV Sodium Potassium Chloride Carbon Dioxide Anion Gap BUN Creatinine Est Cr Clr Drug Dosing Est GFR ( Amer) Est GFR (Non-Af Amer) BUN/Creatinine Ratio Glucose POC Glucose 106 H 90 99 Calcium Total Bilirubin AST ALT Alkaline Phosphatase Total Protein Albumin Globulin Albumin/Globulin Ratio 06/18/19 06/18/19 06/18/19 05:14 06:01 06:01 WBC 7.24 RBC 4.00 L Hgb 11.7 L Hct 35.8 L MCV 89.5 MCH 29.3 MCHC 32.7 RDW Std Deviation 49.1 H RDW Coeff of Dante 15.0 H Plt Count 123 L MPV 11.0 H Sodium 143 Potassium 3.9 Chloride 116 H Carbon Dioxide 20 L Anion Gap 7.0 BUN 39 H Creatinine 1.87 H Est Cr Clr Drug Dosing 36.9 Est GFR ( Amer) 42.2 Est GFR (Non-Af Amer) 36.4 BUN/Creatinine Ratio 21.0 H Glucose 118 H POC Glucose 134 H Calcium 7.9 L Total Bilirubin 1.0 AST 409 H ALT 134 H Alkaline Phosphatase 97 Total Protein 6.3 L Albumin 2.4 L Globulin 3.9 Albumin/Globulin Ratio 0.6 L 06/18/19 06/18/19 06/18/19 07:21 11:26 16:20 WBC RBC Hgb Hct MCV MCH MCHC RDW Std Deviation RDW Coeff of Dante Plt Count MPV Sodium Potassium Chloride Carbon Dioxide Anion Gap BUN Creatinine Est Cr Clr Drug Dosing Est GFR ( Amer) Est GFR (Non-Af Amer) BUN/Creatinine Ratio Glucose POC Glucose 130 H 171 H 122 H Calcium Total Bilirubin AST ALT Alkaline Phosphatase Total Protein Albumin Globulin Albumin/Globulin Ratio ECG Additional Comments: She limit she reveals sinus rhythm sinus bradycardia.
[2019-06-18] MEDS: metroNIDAZOLE 500 MG/100 ML BAG IV SCH (18:35)
[2019-06-19] MEDS: metroNIDAZOLE 500 MG/100 ML BAG IV SCH ×3 (01:25→17:58)
[2019-06-19] MEDS: TRAMADOL HCL 50 MG TABLET PO PRN ×2 (07:57→15:43)
[2019-06-19] MEDS: CARVEDILOL 6.25 MG TAB PO SCH ×2 (07:58→20:44)
[2019-06-19] MEDS: LISINOPRIL 2.5 MG TAB PO SCH (07:58)
[2019-06-19] MEDS: ASPIRIN 81 MG ECTAB PO SCH (07:59)
[2019-06-19] MEDS: CLOPIDOGREL BISULFATE 75 MG TAB PO SCH (07:59)
[2019-06-19] MEDS: INSULIN ASPART 100 UNITS/ML 3 ML PEN SC SCH (07:59)
[2019-06-19] MEDS: ATORVASTATIN 40 MG TAB PO SCH (08:01)
[2019-06-19 08:03] LABS: Creatinine Clr Calc Pharmacy 41.8 ml/min; Est GFR (African American) 49.1; Est GFR (Non-African American) 42.3
--- NOTE | 2019-06-19 08:14 | Pharmacy Report ---
Pharmacy Glycemic Sign Off Nt - Date of Service June 19, 2019 - Assessment & Plan ASSESSMENT: * Pharmacy was consulted by Dr Britt on 06/08/19 for glycemic control and to write orders per [facility] inpatient glycemic control protocol. * Major changes made by pharmacy to antidiabetic regimen include: * addition of basal/bolus * Patient has been receiving/requiring 0 units of insulin per day for adequate glycemic control * BSGs ranging 78 -171 mg/dl * Regimen has only required minor adjustments over the past 48hrs to achieve this level of control * Do not anticipate further changes in patient status that would quickly deteriorate glycemic control (i.e. patient to be NPO for upcoming procedure, steroids tapering, starting tube feedings, etc). PLAN FOR INPATIENT GLYCEMIC CONTROL: No changes needed to current regimen. Will d/c insulin * Pharmacy is signing off of glycemic consult and will no longer be making adjustments to inpatient regimen. Please feel free to re-consult if needed. Thank you.
--- NOTE | 2019-06-19 10:58 | Cardiology Progress Note ---
Date of Service June 19, 2019 Assessment & Plan (1) Acute myocardial infarction: Clinically he is doing well. He has been hemodynamically and electrically stable. However, he continues to refuse medications. His mental health issues will clearly affect his overall outcome. He is not appear to have a reasonable rationale for refusing aspirin or Plavix. I described to him again the risks associated with not taking his medications including recurrent heart attack and . We discussed the option of an alternate medication in the hopes that he will take some anti-platelet agent I changed his Plavix to prasugrel. Will continue beta-polo and LOIS-inhibitor at current doses. (2) Complete heart block: Appears to be maintaining a normal sinus rhythm. Heart rates in the normal range. Will continue to monitor this and hopefully can increase his beta- polo to certain point. (3) Mitral regurgitation: His echocardiogram demonstrated severe mitral regurgitation. This may be related to his acute infarct. Curiously, he does not have a loud murmur on examination. Will monitor his volume status closely. Hopefully with improvement in his LV function and recovery from his CA will see some i mprovement in the mitral regurgitation as well. (4) Ventricular ectopy: This appears to be resolved. Will continue beta-polo therapy. Subjective This morning the patient verbalize complaints of abdominal discomfort and anxiety. He continues to refuse certain medications. He refused aspirin as he feels this will messed him up. He also refused Plavix as he feels this makes me dumber. He also has significant anxiety regarding his treatment in the hospital and the fact that it certain treatments may "do him in". Review of Systems Review of Systems: Per HPI. Mild breathing difficulty due to abdominal discomfort. No chest pain. Physical Exam Physical Exam: The patient is alert and oriented. Mood and affect appeared normal. He answered all questions appropriately. HEENT: Pupils are equal and reactive to light and accommodation. Extraocular movements are intact. The sclerae are anicteric. Neuro: Cranial nerves intact Neck: Patient's neck is supple. He has palpable carotid pulses bilaterally without bruits on auscultation. There is no evidence of jugular venous distention. The thyroid is not enlarged. Lungs: Clear to auscultation bilaterally. He has good air movement without use of accessory muscles. No rales wheezes or rhonchi. Cardiac: Heart demonstrates a regular rate and rhythm. Normal S1 and S2. No murmurs on examination. Pulses: The patient has palpable radial pulses bilaterally that are equal in intensity Results & Data Vital Signs (Past 12 Hours) Vital Signs Temp Pulse Pulse Pulse Resp BP Pulse Ox 06/19/19 08:19 60 06/19/19 07:08 36.4 C L 65 20 112/76 95 06/19/19 03:25 36.3 C L 62 18 113/74 96 06/18/19 23:55 63
[2019-06-19] MEDS: PRASugrel TAB 10 MG TAB PO SCH (12:18)
--- NOTE | 2019-06-19 13:08 | Hospitalist Progress Note ---
Date of Service June 19, 2019 Assessment & Plan (1) Acute myocardial infarction: Patient is a 69-year-old male with history of schizophrenia, hypertension, DVT, lymphedema, and right lower extremity, chronic wounds, testicular carcinoma, tobacco abuse, known to our practice for multiple admissions in the past, homeless, came to ED in an unresponsive state. Noted to have inferior STEMI, was taken to the Air Twister Winder emergentlyhad a stent placed in mid circumflex and transferred to ICU for further care. INFERIOR STEMI Multiple risk factorsNon compliant with medications, hypertension, tobacco abuse, self-neglect, homeless situation, unknown compliance S/P cardiac catheterization done emergently on 06/15/2019occluded mid circumflex, single bare-metal stent placed, chronically occluded mid RCA, moderate 50 to 60% LAD, intraprocedure V. fib requiring defibrillation, Atrial fibrillation. Continue with dual antiplatelet for at least one year. Continue with high dose Atorvastatin 80 mg q HS (Patient is refusing ASA, Plavix ). Unable to convince him as has no rational, schizophrenia contributing. Started on Coreg 6.25 mg twice daily, lisinopril 2.5 mg Troponin peaked up to more than 200. Echocardiogram EF 40 to 45%, grade 2 diastolic dysfunction, wall motion abnormalities. Acute MR which could be related to STEMI Cardiology on board. Appreciate inputs ACUTE CHOLECYSTITISimproving Patient has had multiple episodes of cholecystitis in the past, refusing surgery. Ultrasound shows acute cholecystitis. Does have right upper quadrant pain/tenderness, nausea. No more episodes of vomiting. No fever, chills. No leukocytosis On soft diet now -S/P IV Zosyn --> Changed to IV rocephin and flagyl (avoid qtc prolonging agents) -S/P IVF -Tylenol PRN, Avoid IV narcotics. IV Zofran - Avoiding due to prolonged QTC -US- Acute cholecystitis, no change in bile duct dilation - 1.4 cm, LFTs elevated, no increase in ALP/direct bilirubin, therefore do not suspect choledocholithiasis HYPOGLYCEMIA -Improving BGs in range of 50-110s. Hemoglobin A1c 5.7. Received Lantus 15 units in afternoon of 06/15/2019. No Lantus received since then.Patient was also NPO -IV Dextrose PRN -S/P IV D5NS -Monitor BGs as should improve with improvement in diet ACUTE HYPOXIC RESPIRATORY FAILURE- Resolving Required Intubation on arrival to ED due to unresponsive state/ STEMI -S/P Intubation on 06/15--> Self extubated overnight within 24 hours --> Doing well on RA--> Now on oxygen --> Wean as tolerated -CC on board. Appreciate inputs HX OF ATRIAL FIBRILLATION Intraoperatively had VF requiring defrillation -S/P IV Amiodarone drip - Off it now HTN Hx of non compliance and takes medications on and off when he feels like - Per prior notes BP is borderline low -Was on lisinopril 30 mg , Clonidine patch in past -Started on low dose lisinopril 2.5 mg, Coreg twice daily -Continue to monitor and accordingly add meds as tolerated HX OF SCHIZOPHRENIA Paranoid schizophrenia BILATERAL LOWER EXTREMITIES -Wound care consult HX OF TESTICULAR TUMOR S/P SURGERY HX OF DVT Not a candidate for anticoagulation given homelessness, non compliance Noncompliance Patient is known to our practice for long, very noncompliant with medications or follow-up. Schizophrenia contributing Refusing aspirin, Plavix while in the hospital in spite of explaining the importance and risk of sudden cardiac . Doubt compliance with medications or follow-up once discharged. DVT PROPHYLAXIS SCDS/ TEDS DISPOSITION Medical mx in progress Homeless. manager documentation on board Subjective Patient continues to complain of abdominal discomfort, has some paranoid delusions from his schizophrenia. Continues to refuse multiple medications including aspirin and Plavix. Denies chest pain, shortness of breath On p.o. diet Physical Exam Physical Exam: GENERAL- AAOX3, mild distress secondary to vomiting. Disheveled + NECK- Supple, no JVD LUNGS- Air entry bilaterally equal. No rales, rhonchi, crackles, wheezes heard. HEART- Regular rate and rhythm. No murmurs ABDOMEN- Soft, mild tenderness in right upper quadrant, non distended, Bowel sounds heard. EXTREMITIES- Good peripheral pulses, no edema NEUROMUSCULAR- AAOX3, Grossly no focal deficits PSYCHIATRY- On and off does exhibit paranoid delusions + Results & Data Vital Signs (Past 12 Hours) Vital Signs Temp Pulse Pulse Pulse Resp BP Pulse Ox 06/19/19 11:10 36.8 C 62 20 100/65 93 06/19/19 08:19 60 06/19/19 07:08 36.4 C L 65 20 112/76 95 07/31/19 03:25 36.3 C L 62 18 113/74 96
[2019-06-19] MEDS: cefTRIAXone SODIUM 1,000 MG in DEXTROSE 5% 50 ML IV SCH (15:44)
[2019-06-19] MEDS ORDERED: NURSING DECISION MEDICATION ONE (19:58)
[2019-06-19] MEDS ORDERED: COUGH DROP (SUGAR FREE) LOZ 24 LOZ/1 BOX BUCCAL PRN (20:00)
[2019-06-20] MEDS: metroNIDAZOLE 500 MG/100 ML BAG IV SCH ×3 (02:20→18:54)
[2019-06-20] MEDS: TRAMADOL HCL 50 MG TABLET PO PRN ×2 (06:05→17:26)
[2019-06-20] MEDS: ASPIRIN 81 MG ECTAB PO SCH (08:53)
[2019-06-20] MEDS: PRASugrel TAB 10 MG TAB PO SCH (08:53)
[2019-06-20] MEDS: CARVEDILOL 6.25 MG TAB PO SCH ×2 (08:54→20:25)
[2019-06-20] MEDS: LISINOPRIL 2.5 MG TAB PO SCH (08:54)
[2019-06-20] MEDS: ATORVASTATIN 40 MG TAB PO SCH (08:54)
[2019-06-20 11:04] LABS: 7-Aminoclonaz, Confirm NEGATIVE NG/ML (CUTOFF=25); Hydro-Alp Ur, GC/MS NEGATIVE NG/ML (CUTOFF=25); Hydroxyethylflurazepam, Conf NEGATIVE NG/ML (CUTOFF=50); Hydroxytriazolam NEGATIVE NG/ML (CUTOFF=50); Lorazepam, Ur GC/MS NEGATIVE NG/ML (CUTOFF=50); Nordiazepam, Confirm NEGATIVE NG/ML (CUTOFF=50); Oxazepam Ur, GC/MS NEGATIVE NG/ML (CUTOFF=50); Temazepam, Confirm NEGATIVE NG/ML (CUTOFF=50)
[2019-06-20] MEDS: cefTRIAXone SODIUM 1,000 MG in DEXTROSE 5% 50 ML IV SCH (18:13)
--- NOTE | 2019-06-20 18:31 | Hospitalist Progress Note ---
Date of Service June 20, 2019 Assessment & Plan (1) Acute myocardial infarction: Patient is 69 yr male with H/O schizophrenia, hypertension, DVT, lymphedema, and right lower extremity, chronic wounds, testicular carcinoma, tobacco abuse, known to our practice for multiple admissions in the past, homeless, came to ED in an unresponsive state. Noted to have inferior STEMI, was taken to the Case Finishing Machine Adjuster emergentlyhad a stent placed in mid circumflex and transferred to ICU for further care. Inferior STEMI Multiple risk factorsNon compliant with medications, hypertension, tobacco abuse, self-neglect, homeless situation, unknown compliance S/P cardiac catheterization done emergently on 06/15/2019occluded mid circumflex, single bare-metal stent placed, chronically occluded mid RCA, moderate 50 to 60% LAD, intraprocedure V. fib requiring defibrillation, Atrial fibrillation. Echocardiogram EF 40 to 45%, grade 2 diastolic dysfunction, wall motion abnormalities. Acute MR which could be related to STEMI Ideally needs to continue with dual antiplatelet for at least one year Patient refuses aspirin, Plavix (Unable to convince him as has no rational, schizophrenia contributing) Started on Prasugrel Continue Atorvastatin 80 mg q HS, Coreg, Lisinopril Appreciate Cardiology Input Needs Cardiology as outpatient upon discharge Possible Acute Cholecystitis: Slowly improving Patient has had multiple episodes of cholecystitis in the past, refusing surgery. Ultrasound shows acute cholecystitis. Does have right upper quadrant pain/tenderness, nausea. No more episodes of vomiting. No fever, chills. No leukocytosis Refused any surgical procedures in the past --ABD USD:1. Gallbladder wall edema primarily along the hepatic surface and trace pericholecystic fluid. This has progressed in the interval. There are no gallstones. The patient describes tenderness overlying the gallbladder during scanning raises the possibility of a sonographic Gotti sign. Therefore, the gallbladder wall thickening/edema is nonspecific and could be due to the diffuse edematous state. An acute cholecystitis could also have a similar appearance. Clinical correlation recommended. No change in the intra and extra hepatic bile duct dilatation. --IV Zosyn transitioned to IV rocephin and flagyl (avoid qtc prolonging agents) Received IVF Pain control Tolerating diet Hypoglycemia: Slowly improving Hb A1c 5.7. IV Dextrose PRN Received IV fluids with dextrose Monitor BGs Acute Hypoxic respiratory failure Resolved Currently saturating well on room air Required Intubation on arrival to ED due to unresponsive state/ STEMI S/P Intubation on 06/15--> Self extubated overnight within 24 hours Appreciate critical care input H/O ATRIAL FIBRILLATION Intraoperatively had VF requiring defrillation S/P IV Amiodarone drip - Off it now HTN H/O non compliance and takes medications on and off when he feels like - Per prior notes BP is borderline low Was on lisinopril 30 mg , Clonidine patch in past Started on low-dose lisinopril, Coreg Monitor HX OF SCHIZOPHRENIA Paranoid schizophrenia B/L LE wounds Wound care consulted HX OF TESTICULAR TUMOR S/P SURGERY HX OF DVT Not a candidate for anticoagulation given homelessness, non compliance Noncompliance Patient is known to our practice for long, very noncompliant with medications or follow-up. Schizophrenia contributing Refusing aspirin, Plavix while in the hospital in spite of explaining the importance and risk of sudden cardiac . Doubt compliance with medications or follow-up once discharged. DVT Px: SCDS/ TEDS DISPOSITION Homeless. care services manager on board Subjective Patient seen and examined at bedside Complaints of mild abdominal pain, intermittent transient chest pain Denies any shortness of breath, nausea, vomiting, diarrhea Offers no other complaints Tolerating diet Review of Systems Review of Systems: All systems reviewed & are unremarkable except as noted in HPI & below Physical Exam Physical Exam: Physical Exam: Vitals signs as noted above General Appearance:Chronic ill appearing, disheveled Head: normocephalic, Atraumatic Eyes: normal inspection, EOMI Neck: supple, Trachea midline Respiratory/Chest: Normal breath sounds, CTA Cardiovascular: S1, S2, No murmur Abdomen/GI:Soft, mild tender, Bowel sounds present Extremities/Musculoskelatal:normal inspection, no edema, R leg in dressing Neurologic/Psych:AAOX3, grossly no focal neurological deficits, + paranoid delusions Skin: normal color, warm Results & Data Vital Signs (Past 12 Hours) Vital Signs Temp Pulse Pulse Resp BP Pulse Ox Pulse Ox 06/20/19 15:43 64 06/20/19 15:06 36.5 C 70 18 120/81 96 06/20/19 12:52 96 06/20/19 11:14 36.6 C 73 18 125/84 95 06/20/19 09:00 68 06/20/19 07:26 68 06/20/19 07:14 36.7 C 68 18 114/74 94
[2019-06-21] MEDS: metroNIDAZOLE 500 MG/100 ML BAG IV SCH ×3 (02:04→18:13)
[2019-06-21] MEDS: ASPIRIN 81 MG ECTAB PO SCH (07:25)
[2019-06-21] MEDS: LISINOPRIL 2.5 MG TAB PO SCH (07:26)
[2019-06-21] MEDS: PRASugrel TAB 10 MG TAB PO SCH (07:26)
[2019-06-21] MEDS: CARVEDILOL 6.25 MG TAB PO SCH ×2 (07:26→20:37)
[2019-06-21] MEDS: ATORVASTATIN 40 MG TAB PO SCH (07:26)
[2019-06-21] MEDS: TRAMADOL HCL 50 MG TABLET PO PRN ×3 (07:29→23:34)
[2019-06-21 08:03] LABS: Hematocrit (blood only) 35.4 % (42-52); Hemoglobin 11.5 g/dL (14.0-18.0); Mean Corpuscular Hemoglobin 29.4 pg (25-34); Mean Corpuscular Hgb Conc 32.5 g/dL (32-36); Mean Corpuscular Volume 90.5 fL (80-100); Mean Platelet Volume 11.3 fL (7.4-10.4); Nucleated RBC # (auto) 0.02 K/uL (0-0); Nucleated RBC % (auto) 0.2 %; Platelet Count 132 K/uL (130-400); RDW Coefficient of Variation 15.3 % (11.5-14.5); RDW Standard Deviation 50.8 fL (36.4-46.3); Red Blood Count 3.91 M/uL (4.7-6.1); White Blood Count 7.47 K/uL (4.8-10.8)
[2019-06-21 08:34] LABS: BUN Creatinine Ratio 27.2 (10-20); Calcium 8.2 mg/dl (8.5-10.1); Creatinine Clr Calc Pharmacy 54.6 ml/min; Est GFR (African American) 67.3; Est GFR (Non-African American) 58.1; Potassium 3.7 mmol/L (3.5-5.1)
--- NOTE | 2019-06-21 11:09 | Cardiology Progress Note ---
Date of Service June 21, 2019 Assessment & Plan (1) Acute myocardial infarction: From a cardiac standpoint is actually doing fairly well. This is surprising given his refusal of anti-platelet therapy and the intervention which she underwent. I suppose it is possible that he completed his infarct and could simply have continued occlusion of those vessels, but he still encouraged him to try prasugrel. My main concern is a will have acute stent thrombosis and recurrent NV. I have discussed this possibility with our interventionalist, and at this point we would not return the patient to the laboratory for treatment of recurrent NV given his noncompliance with therapy. 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 His hemodynamics have improved gradually. I think we have an opportunity to intensify the remainder of his medical therapy. For some reason, he has no objection to taking beta-blockade and Jt inhibitors and I will increase his doses. I will increase the beta-polo dose today. If his pressure remains good I would advocate increasing his lisinopril dose tomorrow. I will be away from the hospital for the next 2 days. Please contact the on- call [facility] toll line mechanic for additional questions regarding this patient's care. (2) Complete heart block: Appears to be maintaining a normal sinus rhythm. Heart rates in the normal range. Will continue to monitor this and hopefully can increase his beta- polo to certain point. (3) Mitral regurgitation: His echocardiogram demonstrated severe mitral regurgitation. This may be related to his acute infarct. Curiously, he does not have a loud murmur on examination. Will monitor his volume status closely. Hopefully with improvement in his LV function and recovery from his NV will see some improvement in the mitral regurgitation as well. (4) Ventricular ectopy: This appears to be resolved. Will continue beta-polo therapy. Subjective This morning the patient's main complaint was weakness. He is very concerned about his ability to ambulate and get around. Some of this appeared to be related to weakness. Some this appeared to be related to anxiety about having another heart attack and dying. He continues to have concerns about medications. Apparently he has refused all anti-platelet agents. Reasons for his refusal are unclear. He did not report chest pain currently. He reports a ll over pain and requested more narcotics. He does not specifically report breathing difficulty. Review of Systems Review of Systems: Per HPI Physical Exam Physical Exam: The patient is alert and oriented. Mood and affect appeared normal. He answered all questions appropriately but clearly had poor logic and insight. HEENT: Pupils are equal and reactive to light and accommodation. Extraocular movements are intact. The sclerae are anicteric. Neuro: Cranial nerves intact Lungs: Clear to auscultation bilaterally. He has good air movement without use of accessory muscles. No rales wheezes or rhonchi. Cardiac: Heart demonstrates a regular rate and rhythm. Normal S1 and S2. No murmurs on examination. Pulses: The patient has palpable radial pulses bilaterally that are equal in intensity. Right wrist still bandaged. Skin: I did not appreciate any rashes on examination today. Right leg bandaged Results & Data Vital Signs (Past 12 Hours) Vital Signs Temp Pulse Pulse Resp BP Pulse Ox 06/21/19 08:00 66 06/21/19 07:13 36.5 C 71 18 133/84 96 06/21/19 03:37 36.5 C 69 18 106/71 91 06/21/19 00:00 66 06/20/19 23:22 36.4 C L 74 20 115/77 92
[2019-06-21] MEDS: LACTOBACILLUS ACIDOPHILUS (FLORANEX) TAB PO SCH ×3 (11:16→20:31)
--- NOTE | 2019-06-21 15:36 | Hospitalist Progress Note ---
Date of Service June 21, 2019 Assessment & Plan (1) Acute myocardial infarction: Patient is 69 yr male with H/O schizophrenia, hypertension, DVT, lymphedema, and right lower extremity, chronic wounds, testicular carcinoma, tobacco abuse, known to our practice for multiple admissions in the past, homeless, came to ED in an unresponsive state. Noted to have inferior STEMI, [facility] in mid circumflex and transferred to ICU for further care. Inferior STEMI Multiple risk factorsNon compliant with medications, hypertension, tobacco abuse, self-neglect, homeless situation, unknown compliance S/P cardiac catheterization done emergently on 06/15/2019occluded mid circumflex, single bare-metal stent placed, chronically occluded mid RCA, moderate 50 to 60% LAD, intraprocedure V. fib requiring defibrillation, Atrial fibrillation. Echocardiogram EF 40 to 45%, grade 2 diastolic dysfunction, wall motion abnormalities. Acute MR which could be related to STEMI Ideally needs to continue with dual antiplatelet for at least one year Patient refuses aspirin, Plavix (Unable to convince him as has no rational, schizophrenia contributing) Has a risk for stent thrombosis, recurrent [place] as patient refuses dual antiplatelet therapy. Continue Prasugrel Continue Atorvastatin 80 mg q HS, Coreg, Lisinopril Coreg dose increased to 12.5 mg p.o. twice daily Plan to increase dose of lisinopril if blood pressure accommodates Appreciate Cardiology Input Needs Cardiology as outpatient upon discharge Possible Acute Cholecystitis: Slowly improving Patient has had multiple episodes of cholecystitis in the past, refusing surgery. Ultrasound shows acute cholecystitis. Does have right upper quadrant pain/tenderness, nausea. No more episodes of vomiting. No fever, chills. No leukocytosis Refused any surgical procedures in the past as well --ABD USD:1. Gallbladder wall edema primarily along the hepatic surface and trace pericholecystic fluid. This has progressed in the interval. There are no gallstones. The patient describes tenderness overlying the gallbladder during scanning raises the possibility of a sonographic Gotti sign. Therefore, the gallbladder wall thickening/edema is nonspecific and could be due to the diffuse edematous state. An acute cholecystitis could also have a similar appearance. Clinical correlation recommended. No change in the intra and extra hepatic bile duct dilatation. --IV Zosyn transitioned to IV rocephin and flagyl (avoid qtc prolonging agents) Discussed regarding Possible need for cholecystectomy---Refuses any intervention/Surgical Procedures despite explaining the risks/benefits Received IVF Pain control Tolerating diet Hypoglycemia: Slowly improving Hb A1c 5.7. IV Dextrose PRN Received IV fluids with dextrose Monitor BGs Acute Hypoxic respiratory failure Resolved Currently saturating well on room air Required Intubation on arrival to ED due to unresponsive state/ STEMI S/P Intubation on 06/15--> Self extubated overnight within 24 hours Appreciate critical care input H/O ATRIAL FIBRILLATION Intraoperatively had VF requiring defibrillation S/P IV Amiodarone drip - Discontinued HTN H/O non compliance and takes medications on and off when he feels like - Per prior notes BP is borderline low Was on lisinopril 30 mg , Clonidine patch in past Restarted low-dose lisinopril, Coreg Monitor HX OF SCHIZOPHRENIA Paranoid schizophrenia B/L LE wounds Wound care consulted HX OF TESTICULAR TUMOR S/P SURGERY HX OF DVT Not a candidate for anticoagulation given homelessness, non compliance Noncompliance Patient is known to our practice for long, very noncompliant with medications or follow-up. Schizophrenia could be contributing Refusing aspirin, Plavix while in the hospital in spite of explaining the importance and risk of sudden cardiac . Doubt compliance with medications or follow-up once discharged. 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 Subjective Patient seen and examined at bedside Reports generalized weakness Had small Loose BM today Reports intermittent mild abdominal discomfort Denies any chest pain, shortness of breath, nausea, vomiting Discussed regarding Possible need for cholecystectomy---Refuses any intervention Offers no other complaints Tolerating diet Review of Systems Review of Systems: All systems reviewed & are unremarkable except as noted in HPI & below Physical Exam Physical Exam: Physical Exam: Vitals signs as noted above General Appearance:Chronic ill appearing, disheveled Head: normocephalic, Atraumatic Eyes: normal inspection, EOMI Neck: supple, Trachea midline Respiratory/Chest: Normal breath sounds, CTA Cardiovascular: S1, S2, No murmur Abdomen/GI:Soft, mild tender R&L LQ, Bowel sounds present Extremities/Musculoskelatal:normal inspection, no edema, R leg in dressing Neurologic/Psych:AAOX3, grossly no focal neurological deficits, + paranoid delusions Skin: normal color, warm Results & Data Vital Signs (Past 12 Hours) Vital Signs Temp Pulse Pulse Resp BP Pulse Ox 06/21/19 15:04 36.5 C 74 20 118/78 95 06/21/19 11:16 36.8 C 81 18 112/43 L 95 06/21/19 08:00 66 06/21/19 07:13 36.5 C 71 18 133/84 96 06/21/19 03:37 36.5 C 69 18 106/71 91 Laboratory Results Short CBC 06/21/19 Range/Units 07:16 WBC 7.47 (4.8-10.8) K/uL Hgb 11.5 L (14.0-18.0) g/dL Hct 35.4 L (42-52) % Plt Count 132 (130-400) K/uL BMP 06/21/19 07:16 Sodium 146 H Potassium 3.7 Chloride 118 H Carbon Dioxide 22 BUN 35 H Creatinine 1.27 Glucose 108 H Calcium 8.2 L
[2019-06-21] MEDS: cefTRIAXone SODIUM 1,000 MG in DEXTROSE 5% 50 ML IV SCH (16:11)
[2019-06-22] MEDS: metroNIDAZOLE 500 MG/100 ML BAG IV SCH ×3 (02:06→18:49)
[2019-06-22] MEDS: ATORVASTATIN 40 MG TAB PO SCH (07:50)
[2019-06-22] MEDS: CARVEDILOL 6.25 MG TAB PO SCH ×2 (07:50→20:42)
[2019-06-22] MEDS: LISINOPRIL 2.5 MG TAB PO SCH (07:51)
[2019-06-22] MEDS: PRASugrel TAB 10 MG TAB PO SCH (07:51)
[2019-06-22] MEDS: ASPIRIN 81 MG ECTAB PO SCH (07:51)
[2019-06-22] MEDS: LACTOBACILLUS ACIDOPHILUS (FLORANEX) TAB PO SCH ×4 (07:58→20:39)
[2019-06-22] MEDS: TRAMADOL HCL 50 MG TABLET PO PRN ×2 (08:25→18:35)
[2019-06-22] MEDS: cefTRIAXone SODIUM 1,000 MG in DEXTROSE 5% 50 ML IV SCH (16:42)
--- NOTE | 2019-06-22 17:33 | Hospitalist Progress Note ---
Date of Service June 22, 2019 Assessment & Plan (1) Acute myocardial infarction: Patient is 69 yr male with H/O schizophrenia, hypertension, DVT, lymphedema, and right lower extremity, chronic wounds, testicular carcinoma, tobacco abuse, known to our practice for multiple admissions in the past, homeless, came to ED in an unresponsive state. Noted to have inferior STEMI, was [facility] a stent placed in mid circumflex and transferred to ICU for further care. Inferior STEMI Multiple risk factorsNon compliant with medications, hypertension, tobacco abuse, self-neglect, homeless situation, unknown compliance S/P cardiac catheterization done emergently on 06/15/2019occluded mid circumflex, single bare-metal stent placed, chronically occluded mid RCA, moderate 50 to 60% LAD, intraprocedure V. fib requiring defibrillation, Atrial fibrillation. Echocardiogram EF 40 to 45%, grade 2 diastolic dysfunction, wall motion abnormalities. Acute MR which could be related to STEMI Patient refuses Plavix (Unable to convince him as has no rational, schizophrenia contributing) Has a risk for stent thrombosis, recurrent [place] as patient refuses dual antiplatelet therapy. Continue Aspirin, Prasugrel Continue Atorvastatin 80 mg q HS, Coreg, Lisinopril Coreg dose increased to 12.5 mg p.o. twice daily Plan to increase dose of lisinopril if blood pressure accommodates Appreciate Cardiology Input Needs Cardiology as outpatient upon discharge Continue current medications Possible Acute Cholecystitis: Slowly improving Patient has had multiple episodes of cholecystitis in the past, refusing surgery. Ultrasound shows acute cholecystitis. Does have right upper quadrant pain/tenderness, nausea. No more episodes of vomiting. No fever, chills. No leukocytosis Refused any surgical procedures in the past as well --ABD USD:1. Gallbladder wall edema primarily along the hepatic surface and trace pericholecystic fluid. This has progressed in the interval. There are no gallstones. The patient describes tenderness overlying the gallbladder during scanning raises the possibility of a sonographic Gotti sign. Therefore, the gallbladder wall thickening/edema is nonspecific and could be due to the diffuse edematous state. An acute cholecystitis could also have a similar appearance. Clinical correlation recommended. No change in the intra and extra hepatic bile duct dilatation. --IV Zosyn transitioned to IV rocephin and flagyl (avoid qtc prolonging agents) Discussed regarding Possible need for cholecystectomy---Refuses any intervention/Surgical Procedures despite explaining the risks/benefits Received IVF Pain control Tolerating diet Plan to discontinue Abx tomorrow Hypoglycemia: Slowly improving Hb A1c 5.7. IV Dextrose PRN Received IV fluids with dextrose Monitor BGs Acute Hypoxic respiratory failure Resolved Currently saturating well on room air Required Intubation on arrival to ED due to unresponsive state/ STEMI S/P Intubation on 06/15--> Self extubated overnight within 24 hours Appreciate critical care input H/O ATRIAL FIBRILLATION Intraoperatively had VF requiring defibrillation S/P IV Amiodarone drip - Discontinued HTN H/O non compliance and takes medications on and off when he feels like - Per prior notes BP is borderline low Was on lisinopril 30 mg , Clonidine patch in past Restarted low-dose lisinopril, Coreg Monitor HX OF SCHIZOPHRENIA Paranoid schizophrenia B/L LE wounds Wound care consulted HX OF TESTICULAR TUMOR S/P SURGERY HX OF DVT Not a candidate for anticoagulation given homelessness, non compliance Noncompliance Patient is known to our practice for long, very noncompliant with medications or follow-up. Schizophrenia could be contributing Refusing aspirin, Plavix while in the hospital in spite of explaining the importance and risk of sudden cardiac . Doubt compliance with medications or follow-up once discharged. 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 Subjective Patient seen and examined at bedside Reports back pain this morning Also reports generalized weakness No other complaints Denies any chest pain, shortness of breath, nausea, vomiting Review of Systems Review of Systems: All systems reviewed & are unremarkable except as noted in HPI & below Physical Exam Physical Exam: Physical Exam: Vitals signs as noted above General Appearance:Chronic ill appearing, disheveled Head: normocephalic, Atraumatic Eyes: normal inspection, EOMI Neck: supple, Trachea midline Respiratory/Chest: Normal breath sounds, CTA Cardiovascular: S1, S2, No murmur Abdomen/GI:Soft, mild tender R&L LQ, Bowel sounds present Extremities/Musculoskelatal:normal inspection, no edema, R leg in dressing Neurologic/Psych:AAOX3, grossly no focal neurological deficits, + paranoid delusions Skin: normal color, warm Results & Data Vital Signs (Past 12 Hours) Vital Signs Temp Pulse Pulse Resp BP Pulse Ox 06/22/19 15:20 36.4 C L 70 16 118/75 93 06/22/19 11:56 36.6 C 63 16 109/72 94 06/22/19 08:00 67 06/22/19 07:18 36.6 C 71 18 136/77 97
[2019-06-23] MEDS: TRAMADOL HCL 50 MG TABLET PO PRN ×2 (01:40→16:13)
[2019-06-23] MEDS: metroNIDAZOLE 500 MG/100 ML BAG IV SCH ×2 (01:40→09:48)
[2019-06-23] MEDS ORDERED: SODIUM CHLORIDE 0.65% NA SOLN 45 ML (OCEAN) PRN (07:37)
[2019-06-23] MEDS: CARVEDILOL 6.25 MG TAB PO SCH ×2 (08:01→22:24)
[2019-06-23] MEDS: ATORVASTATIN 40 MG TAB PO SCH ×2 (08:02→08:10)
[2019-06-23] MEDS: ASPIRIN 81 MG ECTAB PO SCH ×2 (08:02→08:10)
[2019-06-23] MEDS: LISINOPRIL 2.5 MG TAB PO SCH (08:02)
[2019-06-23] MEDS: PRASugrel TAB 10 MG TAB PO SCH (08:02)
[2019-06-23] MEDS: LACTOBACILLUS ACIDOPHILUS (FLORANEX) TAB PO SCH ×4 (08:02→22:25)
--- NOTE | 2019-06-23 13:56 | Hospitalist Progress Note ---
Date of Service June 23, 2019 Assessment & Plan (1) Acute myocardial infarction: Patient is 69 yr male with H/O schizophrenia, hypertension, DVT, lymphedema, and right lower extremity, chronic wounds, testicular carcinoma, tobacco abuse, known to our practice for multiple admissions in the past, homeless, came to ED in an unresponsive state. Noted to have inferior STEMI, [facility] in mid circumflex and transferred to ICU for further care. Inferior STEMI Multiple risk factorsNon compliant with medications, hypertension, tobacco abuse, self-neglect, homeless situation, unknown compliance S/P cardiac catheterization done emergently on 06/15/2019occluded mid circumflex, single bare-metal stent placed, chronically occluded mid RCA, moderate 50 to 60% LAD, intraprocedure V. fib requiring defibrillation, Atrial fibrillation. Echocardiogram EF 40 to 45%, grade 2 diastolic dysfunction, wall motion abnormalities. Acute MR which could be related to STEMI Patient refuses Plavix (Unable to convince him as has no rational, schizophrenia contributing) Has a risk for stent thrombosis, recurrent [place] as patient refuses dual antiplatelet therapy. Continue Aspirin, Prasugrel Continue Atorvastatin 80 mg q HS, Coreg, Lisinopril Coreg dose increased to 12.5 mg p.o. twice daily Plan to increase dose of lisinopril if blood pressure accommodates Appreciate Cardiology Input Needs Cardiology as outpatient upon discharge Continue current medications Transient Epistaxis In setting of Aspirin, Effient use and stent placement Monitor CBC May need ENT eval if re occurs Possible Acute Cholecystitis: Slowly improving Patient has had multiple episodes of cholecystitis in the past, refusing surgery. Ultrasound shows acute cholecystitis. Does have right upper quadrant pain/tenderness, nausea. No more episodes of vomiting. No fever, chills. No leukocytosis Refused any surgical procedures in the past as well --ABD USD:1. Gallbladder wall edema primarily along the hepatic surface and trace pericholecystic fluid. This has progressed in the interval. There are no gallstones. The patient describes tenderness overlying the gallbladder during scanning raises the possibility of a sonographic Gotti sign. Therefore, the gallbladder wall thickening/edema is nonspecific and could be due to the diffuse edematous state. An acute cholecystitis could also have a similar appearance. Clinical correlation recommended. No change in the intra and extra hepatic bile duct dilatation. --IV Zosyn transitioned to IV rocephin and flagyl (avoid qtc prolonging agents)>>>To PO abx Discussed regarding Possible need for cholecystectomy---Refuses any intervention/Surgical Procedures despite explaining the risks/benefits Received IVF Pain control Tolerating diet Hypoglycemia: Slowly improving Hb A1c 5.7. IV Dextrose PRN Received IV fluids with dextrose Monitor BGs Acute Hypoxic respiratory failure Resolved Required Intubation on arrival to ED due to unresponsive state/ STEMI S/P Intubation on 06/15--> Self extubated overnight within 24 hours Appreciate critical care input H/O ATRIAL FIBRILLATION Intraoperatively had VF requiring defibrillation S/P IV Amiodarone drip - Discontinued HTN H/O non compliance and takes medications on and off when he feels like - Per prior notes BP is borderline low Was on lisinopril 30 mg , Clonidine patch in past Restarted low-dose lisinopril, Coreg Monitor HX OF SCHIZOPHRENIA Paranoid schizophrenia B/L LE wounds Wound care consulted HX OF TESTICULAR TUMOR S/P SURGERY HX OF DVT Not a candidate for anticoagulation given homelessness, non compliance Noncompliance Patient is known to our practice for long, very noncompliant with medications or follow-up. Schizophrenia could be contributing Refusing aspirin, Plavix while in the hospital in spite of explaining the importance and risk of sudden cardiac . Doubt compliance with medications or follow-up once discharged. 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 Subjective Patient seen and examined at bedside Had transient epistaxis this morning Refused aspirin today Abdominal pain improved Reports generalized weakness Denies any chest pain, shortness of breath, nausea, vomiting Review of Systems Review of Systems: All systems reviewed & are unremarkable except as noted in HPI & below Physical Exam Physical Exam: Physical Exam: Vitals signs as noted above General Appearance:Chronic ill appearing, disheveled Head: normocephalic, Atraumatic Eyes: normal inspection, EOMI Neck: supple, Trachea midline Respiratory/Chest: Normal breath sounds, CTA Cardiovascular: S1, S2, No murmur Abdomen/GI:Soft, non tender, Bowel sounds present Extremities/Musculoskelatal:normal inspection, no edema, R leg in dressing Neurologic/Psych:AAOX3, grossly no focal neurological deficits, + paranoid delusions Skin: normal color, warm Results & Data Vital Signs (Past 12 Hours) Vital Signs Temp Pulse Pulse Resp BP Pulse Ox 06/23/19 11:27 37.0 C 71 18 115/78 95 06/23/19 08:00 74 06/23/19 07:38 36.5 C 71 18 130/88 96 06/23/19 03:53 36.6 C 70 20 120/82 96
[2019-06-23] MEDS: AMOXICILLIN/CLAVULANATE 500 MG TAB PO SCH (19:12)
[2019-06-23] MEDS ORDERED: FUROSEMIDE 40 MG in SYRINGE 0 ML IV ONE (19:48)
--- NOTE | 2019-06-23 19:48 | XRay Report ---
XR chest 1V portable HISTORY: Shortness of breath. COMPARISON: Chest 06/15/2019. FINDINGS: No pneumothorax. The heart remains enlarged. Moderate bilateral pleural effusions. Perihila r airspace opacities with diffuse interstitial thickening consistent with severe pulmonary edema. IMPRESSION: Interval development of severe pulmonary edema and moderate bilateral pleural effusions. Electronically signed by: Srikanth Ferrell M.D. 06/23/2019 7:47 PM
[2019-06-23] MEDS ORDERED: ALBUT/IPRATROP 3MG/0.5MG NEB 3 ML VIAL NEB STA (19:53)
--- NOTE | 2019-06-23 21:39 | Hospitalist Progress Note ---
Date of Service June 23, 2019 Subjective Made aware by RN of patient complaints of shortness of breath. Chest x-ray showed pulmonary edema. Patient refusing Lasix despite being counseled about potential for respiratory decompensation leading to intubation with diuretic Rx refusal. Patient agreeable to receiving Lasix if "I am knocked out, if you need to save me." " Lasix will mess me up. I only want Benadryl." Will relay to AM provider. Results & Data Vital Signs (Past 12 Hours) Vital Signs Temp Pulse Pulse Pulse Resp BP Pulse Ox 06/23/19 19:12 160/98 H 92 06/23/19 19:00 36.4 C L 84 22 178/110 H 91 06/23/19 18:10 77 06/23/19 14:43 36.2 C L 79 22 143/91 H 92 06/23/19 11:27 37.0 C 71 18 115/78 95
[2019-06-24 07:19] LABS: Hematocrit (blood only) 37.4 % (42-52); Hemoglobin 12.2 g/dL (14.0-18.0); Mean Corpuscular Hemoglobin 29.4 pg (25-34); Mean Corpuscular Hgb Conc 32.6 g/dL (32-36); Mean Corpuscular Volume 90.1 fL (80-100); Mean Platelet Volume 11.2 fL (7.4-10.4); Nucleated RBC # (auto) 0.02 K/uL (0-0); Nucleated RBC % (auto) 0.2 %; Platelet Count 141 K/uL (130-400); RDW Coefficient of Variation 15.8 % (11.5-14.5); RDW Standard Deviation 50.2 fL (36.4-46.3); Red Blood Count 4.15 M/uL (4.7-6.1); White Blood Count 8.87 K/uL (4.8-10.8)
[2019-06-24 07:55] LABS: BUN Creatinine Ratio 21.4 (10-20); Calcium 8.2 mg/dl (8.5-10.1); Creatinine Clr Calc Pharmacy 58.3 ml/min; Est GFR (African American) 72.8; Est GFR (Non-African American) 62.8; Potassium 4.2 mmol/L (3.5-5.1)
[2019-06-24] MEDS: ATORVASTATIN 40 MG TAB PO SCH (08:19)
[2019-06-24] MEDS: AMOXICILLIN/CLAVULANATE 500 MG TAB PO SCH ×2 (08:19→15:38)
[2019-06-24] MEDS: CARVEDILOL 6.25 MG TAB PO SCH ×2 (08:19→20:23)
[2019-06-24] MEDS: LISINOPRIL 2.5 MG TAB PO SCH (08:21)
[2019-06-24] MEDS: LACTOBACILLUS ACIDOPHILUS (FLORANEX) TAB PO SCH ×4 (08:21→20:31)
[2019-06-24] MEDS: PRASugrel TAB 10 MG TAB PO SCH (08:21)
[2019-06-24] MEDS: ASPIRIN 81 MG ECTAB PO SCH (08:22)
--- NOTE | 2019-06-24 11:51 | Hospitalist Progress Note ---
Date of Service June 24, 2019 Assessment & Plan (1) Hypoxia: Worsening hypoxia in setting of acute heart failure and MR. Holding NPO at this time until his respiratory status improves or Cardiology sees him and changes this. (2) Acute heart failure: Complication s/o STEMI. Taking ASA, Prasugrel, Atorvastatin, Coreg, Lisinopril. Already with acute MR. High risk for cardiogenic shock or ventricular rupture. Volume overloaded on exam and clinically appears worse since seen by Cardiology last. I have reached out to them to re-evaluate now and am transferring him to PCU as he is high risk for cardiac demise and . He is declining Lasix since yesterday when first offered and continues to decline this now. Defer to Cardiology for further management. (3) Mitral regurgitation: Cont medical management for now. Likely related to recent STEMI. (4) STEMI (ST elevation myocardial infarction): Inferiori STEMI on arrival s/p BMS placement. Ventricular fibrillation during cath procedure requiring defibrillation attempt and atrial fibrillation noted on monitor. Echo reveals EF 40-45% with acute MR which could be related to STEMI. Patient refuses Plavix/DAPT (schizophrenic paranoia contributing). Agrees to Prasugrel. Cont current medical management. Transfer to PCU. (5) Acute hypoxemic respiratory failure: 2/2 STEMI, required intubation on arrival to the ED and self-extubated within 24 hours. No has worsening hypoxia with signs of acute left heart failure on exam/imaging. (6) Cholecystitis, acute: Pt with multiple episodes of cholecystitis in the past and has refused surgery (schizophrenic paranoia thought to be contributing). US this admission reveals evidence of GB wall edema and no gallstones. GB wall thickening also could have been related to edematous state. This was associated with RUQ pain and nausea. He was treated medically with a course of Zosyn which was transitioned to Rocephin and Flagyl to avoid QTc prolonging agents. Was switched to augmentin for another few days. (7) HTN (hypertension): AT goal. Cont current medication. (8) Open wound of right lower extremity: Chronic, wrapped. Cont wound care daily. (9) Smoker: (10) Lymphedema of right lower extremity: chronic (11) H/O atrial fibrillation without current medication: During recent cardiac catheterization flipped into atrial fibrillation and was initially placed on an amio drip which was stopped. Sinus rhythm, on Coreg. (12) Noncompliance: Paranoid schizophrenia and homelessness likely contributing to this. (13) Complete heart block: Present earlier in admission. In sinus rhythm. EKG ordered for this morning. (14) DVT prophylaxis: Heparin ordered Full Dispo-worsened with complications post-STEMI. Moving to PCU. Chelsea Mosley DO [facility] Hospitalist Subjective 69 yo M s/p STEMI with subsequent acute heart failure who is refusing treatment for various reasons. He believes the medications being offered including Lasix and nitroglycerin will not help him. He is expressing being "knocked over" and it's not clear to me what he is referring to, but I believe he thinks the [employer] will do this to him. He has clear exercise intolerance and cannot easily ambulate to the bathroom without severe dyspnea. Lung sounds are diminished on exam and he is on 5L oxygen via nasal canula with a baseline of no hypoxia prior to the STEMI. He denies any chest pain and believes he feels slightly better. He then will tel me that he feels worse, so it is not clear. What is clear is that he doesn't want any treatment medically for this acute heart failure at this time. Review of Systems Review of Systems: +SOB, +SOB with exertion, denies CP, fevers, abdominal pain. Beyond this it appears he has some struggles, but I cannot ascertain what exactly these are as he continues to redirect the conversation. Physical Exam Physical Exam: CONSTITUTIONAL: WNWD, vitals as above, generally ill appearing and fatigued, +conversational dyspnea, speaking in a whisper, appears to be struggling somewhat. EYES: normal conjunctivae, no scleral icterus ENT: MMM, poor dentition. RESPIRATORY: clear to auscultation with diminished breath sounds throughout all lung celeste and some converstational dyspnea. Some respiratory distress noted, but appears to recover well when he stops speaking. CARDIOVASCULAR: regular rate and rhythm, S1 and 2 heard without murmurs, gallops or rubs, + JVD, +RLE swelling with wound present. No LLE swelling GASTROINTESTINAL: soft, nontender, nondistended MUSCULOSKELETAL: head is normocephalic and atraumatic, moves all extremities with ease. No gross focal deficits. SKIN: warm and dry, RLE wound wrapped with dressing that is CDI with some erythema present. Multiple scabs on legs and skin is in bad shape with alot of crusting and chronic-appearing changes. Swelling to RLE >LLE. NEUROLOGIC: No facial palsy, no dysarthria. Speaking in a whisper. CN 2-12 grossly intact, no sensory deficit, appears to have some paranoia and distrust PSYCHIATRIC: alert cooperative and oriented Results & Data Vital Signs (Past 12 Hours) Vital Signs Temp Pulse Pulse Resp BP Pulse Ox 06/24/19 11:09 37.3 C 74 24 126/88 96 06/24/19 07:34 77 06/24/19 07:30 36.7 C 71 20 143/93 H 95 06/24/19 02:39 36.5 C 72 20 130/89 98 Laboratory Results Short CBC 06/24/19 Range/Units 07:00 WBC 8.87 (4.8-10.8) K/uL Hgb 12.2 L (14.0-18.0) g/dL Hct 37.4 L (42-52) % Plt Count 141 (130-400) K/uL BMP 06/24/19 07:00 Sodium 147 H Potassium 4.2 Chloride 114 H Carbon Dioxide 25 BUN 26 H Creatinine 1.19 Glucose 121 H Calcium 8.2 L Diagnostic Findings XR chest 1V portable HISTORY: Shortness of breath. COMPARISON: Chest 06/15/2019. FINDINGS: No pneumothorax. The heart remains enlarged. Moderate bilateral pleural effusions. Perihilar airspace opacities with diffuse interstitial thickening consistent with severe pulmonary edema. IMPRESSION: Interval development of severe pulmonary edema and moderate bilateral pleural effusions. Medications Administered Current Inpatient Medications Albuterol (Duoneb) 3 ml NEB Q4R PRN PRN Reason: SOB/WHEEZING Stop: 07/15/19 14:31 Amoxicillin/Clavulanate Potassium (Augmentin 500mg) 1 tab PO BIDM [facility]; Protocol Stop: 06/26/19 08:01 Last Admin: 06/24/19 08:19 Dose: 1 tab Documented by: Aspirin (Ecotrin Ectab) 81 mg PO [facility] Stop: 07/16/19 08:59 Last Admin: 06/24/19 08:22 Dose: 81 mg Documented by: Atorvastatin Calcium (Lipitor) 80 mg PO [facility] Stop: 07/16/19 08:59 Last Admin: 06/24/19 08:19 Dose: 80 mg Documented by: Carvedilol (Coreg) 12.5 mg PO BID [facility] Stop: 07/21/19 20:59 Last Admin: 06/24/19 08:19 Dose: 12.5 mg Documented by: Dextrose (Dextrose 50%) 25 - 50 ml IV UD PRN; Protocol PRN Reason: Hypoglycemia Protocol Stop: 07/15/19 14:31 Last Admin: 06/17/19 16:39 Dose: 25 ml Documented by: Glucagon (Glucagen) 1 mg SQ UD PRN; Protocol PRN Reason: Hypoglycemia Protocol Stop: 07/15/19 14:31 Glucose (Glucose 40%) 15 - 30 gm PO UD PRN; Protocol PRN Reason: Hypoglycemia Protocol Stop: 07/15/19 14:31 Glucose (Dex4 Glucose) 4 - 8 tabs PO UD PRN; Protocol PRN Reason: Hypoglycemia Protocol Stop: 07/15/19 14:31 Last Admin: 06/17/19 11:32 Dose: 4 tabs Documented by: Lactobacillus Acidophilus (Floranex) 4 tab PO QIDM [facility] Stop: 07/21/19 11:59 Last Admin: 06/24/19 08:21 Dose: Not Given Documented by: Lisinopril (Zestril) 2.5 mg PO QAM [facility] Stop: 07/17/19 10:14 Last Admin: 06/24/19 08:21 Dose: 2.5 mg Documented by: Menthol (Nice) 1 valentine BUCCAL NOW PRN PRN Reason: Sore Throat Stop: 07/19/19 19:59 Miscellaneous (Carbohydrates For Hypoglycemia) 15 - 30 gm PO UD PRN PRN Reason: Hypoglycemia Treatment Stop: 07/15/19 14:31 Last Admin: 06/17/19 11:11 Dose: 15 gm Documented by: Prasugrel (Effient) 10 mg PO QAM [facility] Stop: 07/19/19 11:29 Last Admin: 06/24/19 08:21 Dose: 10 mg Documented by: Sodium Chloride ([place] Nasal) 0 sprays NA PRN PRN PRN Reason: Congestion Stop: 07/23/19 07:36 Tramadol HCl (Ultram) 50 mg PO Q4H PRN PRN Reason: moderate to severe pain Stop: 07/17/19 14:55 Last Admin: 06/23/19 16:13 Dose: 50 mg Documented by:
[2019-06-24] MEDS ORDERED: BUMETANIDE 0.5 MG in SYRINGE 0 ML IV ONE (14:05)
[2019-06-24] MEDS: TRAMADOL HCL 50 MG TABLET PO PRN ×2 (15:37→22:16)
--- NOTE | 2019-06-24 15:51 | Cardiology Progress Note ---
Date of Service June 24, 2019 Assessment & Plan (1) Acute myocardial infarction: He was doing fairly well from cardiac standpoint but appears to have developed pulmonary edema. With this related to his left ventricular function, mitral regurgitation or other etiology is not clear. His x-ray looks quite concerning but symptomatic Nimo he downplays any breathing difficulty. I do believe that diuresis will be beneficial. However, he has been reluctant to allow administration of Lasix. He may allow for an alternate diuretic. I explained to him again the need for medical compliance in the importance of these medications. However, his mental illness appears to compromise his understanding of his disease process. He is certainly at risk of complications related to his myocardial infarction to include recurrent infarction, ventricular arrhythmia and mechanical complication. I do not believe he has suffered a mechanical complication at this point. I think we can increase his lisinopril. Continue his carvedilol currently with intention to transition into a daily dose medications such as Toprol XL prior to discharge. (2) Complete heart block: Appears to be maintaining a normal sinus rhythm. Heart rates in the normal range. Will continue to monitor this and hopefully can increase his beta- polo to certain point. (3) Mitral regurgitation: His echocardiogram demonstrated severe mitral regurgitation. This may be related to his acute infarct. Curiously, he does not have a loud murmur on examination. He would benefit from diuresis but this point has been refusing.. (4) Ventricular ectopy: This appears to be resolved. Will continue beta-polo therapy. Subjective Last evening the patient complained of breathing difficulty and an x-ray was obtained. This revealed significant pulmonary edema. Patient was subsequent transferred to defer unit for closer observation. He currently is concerned mostly about anxiety. He did not report overt breathing trouble. However, he does report some symptoms of chest tightness on occasion. He still has difficulty with ambulation and performing activities as he feels like he is going to pass out. He continues to have abdominal pain. Review of Systems Review of Systems: Per HPI Physical Exam Physical Exam: The patient is alert and oriented. Mood and affect appeared normal. He answered all questions appropriately. HEENT: Pupils are equal and reactive to light and accommodation. Extraocular movements are intact. The sclerae are anicteric. Neuro: Cranial nerves intact Lungs: Crackles at the bases bilaterally. No expiratory wheezing. Normal respiratory effort. Cardiac: Heart demonstrates a regular rate and rhythm. Normal S1 and S2. No murmurs on examination. Pulses: The patient has palpable radial pulses bilaterally that are equal in intensity Extremities: No significant edema the left leg. Right leg has chronic lymphedema. Skin: I did not appreciate any rashes on examination today. Results & Data Vital Signs (Past 12 Hours) Vital Signs Temp Pulse Pulse Resp BP BP Pulse Ox 06/24/19 15:18 36.5 C 77 12 135/93 100 06/24/19 13:40 77 20 132/98 97 06/24/19 11:09 37.3 C 74 24 126/88 96 06/24/19 07:34 77 06/24/19 07:30 36.7 C 71 20 143/93 H 95 Laboratory Results Abnormal Lab Results 06/24/19 06/24/19 06/24/19 06:34 07:00 07:00 WBC 8.87 RBC 4.15 L Hgb 12.2 L Hct 37.4 L MCV 90.1 MCH 29.4 MCHC 32.6 RDW Std Deviation 50.2 H RDW Coeff of Dante 15.8 H Plt Count 141 MPV 11.2 H Absolute Nucleated RBC 0.02 H Nucleated RBC % (auto) 0.2 Sodium 147 H Potassium 4.2 Chloride 114 H Carbon Dioxide 25 Anion Gap 7.0 BUN 26 H Creatinine 1.19 Est Cr Clr Drug Dosing 58.3 Est GFR ( Amer) 72.8 Est GFR (Non-Af Amer) 62.8 BUN/Creatinine Ratio 21.4 H Glucose 121 H POC Glucose 118 H Calcium 8.2 L Diagnostic Findings Chest x-ray obtained yesterday revealed notable pulmonary edema ECG Additional Comments: Telemetry reveals sinus rhythm without significant arrhythmia
[2019-06-24] MEDS: MoRPHine SULFATE 2 MG/ML CARP IV PRN (16:56)
[2019-06-25] MEDS: MoRPHine SULFATE 2 MG/ML CARP IV PRN ×3 (00:20→20:51)
[2019-06-25 05:17] LABS: Eosinophils # (auto) 0.07 K/uL (0-0.5); Eosinophils % (auto) 0.6 %; Hematocrit (blood only) 36.8 % (42-52); Hemoglobin 11.7 g/dL (14.0-18.0); Immature Granulocytes # (auto) 0.05 K/uL (0.00-0.02); Immature Granulocytes % (auto) 0.5 %; Lymphocytes # (auto) 0.71 K/uL (1.2-3.4); Lymphocytes % (auto) 6.5 %; Mean Corpuscular Hgb Conc 31.8 g/dL (32-36); Mean Corpuscular Volume 91.1 fL (80-100); Mean Platelet Volume 10.8 fL (7.4-10.4); Monocytes % (auto) 7.3 %; Neutrophils # (auto) 9.35 K/uL (1.4-6.5); Neutrophils % (auto) 85.1 %; Platelet Count 136 K/uL (130-400); RDW Coefficient of Variation 16.3 % (11.5-14.5); RDW Standard Deviation 52.6 fL (36.4-46.3); Red Blood Count 4.04 M/uL (4.7-6.1); White Blood Count 10.98 K/uL (4.8-10.8)
[2019-06-25 05:33] LABS: Calcium 7.9 mg/dl (8.5-10.1); Creatinine Clr Calc Pharmacy 65.4 ml/min; Est GFR (African American) 83.8; Est GFR (Non-African American) 72.3; Magnesium 2.1 mg/dl (1.8-2.4); Potassium 4.2 mmol/L (3.5-5.1)
[2019-06-25 05:34] LABS: Partial Thromboplastin Ratio 1.3
[2019-06-25] MEDS: PRASugrel TAB 10 MG TAB PO SCH (08:11)
[2019-06-25] MEDS: CARVEDILOL 6.25 MG TAB PO SCH ×2 (08:12→20:49)
[2019-06-25] MEDS: ATORVASTATIN 40 MG TAB PO SCH (08:13)
[2019-06-25] MEDS: ASPIRIN 81 MG ECTAB PO SCH (08:16)
[2019-06-25] MEDS: LACTOBACILLUS ACIDOPHILUS (FLORANEX) TAB PO SCH ×4 (08:16→21:53)
[2019-06-25] MEDS: AMOXICILLIN/CLAVULANATE 500 MG TAB PO SCH ×2 (08:16→18:17)
[2019-06-25] MEDS: LISINOPRIL 5 MG TAB PO SCH (08:17)
--- NOTE | 2019-06-25 10:32 | Cardiology Progress Note ---
Date of Service June 25, 2019 Assessment & Plan (1) Acute myocardial infarction: He continues to have symptoms associated with pulmonary edema. Yesterday he was very suspicious about medications. Today he seems to have consented to a dose of diuretic. I think this will improve his symptoms. Will monitor its effect. I increased his lisinopril today. Hopefully we can increase his carvedilol tomorrow. Some point we will transition him to a daily medication such as metoprolol succinate. (2) Complete heart block: Appears to be maintaining a normal sinus rhythm. Heart rates in the normal range. Will continue to monitor this and hopefully can increase his beta- polo to certain point. (3) Mitral regurgitation: His echocardiogram demonstrated severe mitral regurgitation. This may be related to his acute infarct. Curiously, he does not have a loud murmur on examination. We will see if the dose of diuretic improves his symptoms today. (4) Ventricular ectopy: This appears to be resolved. Will continue beta-polo therapy. (5) Atrial fibrillation: He did have some atrial fibrillation overnight. This is the first atrial fibrillation we have seen since his initial presentation. He appeared to have reasonable rate control even when in atrial fibrillation. Do not think we need to alter his medical regimen in that regard. Our plan is to increase his beta- polo in any event likely tomorrow. From the standpoint of anticoagulation, he would benefit from being on systemic anticoagulation.He has not been taking his aspirin but has been taking his Prasugrel. I think I will prescribe him Xarelto to see if he will take it. I think moving forward this would be the easiest medication for him to take on an outpatient basis. Pressor grill and Xarelto would be a good combination for helping to prevent additional events as well. Subjective This morning the patient had little appetite. He claims to be eating [employer] [employer]. He continues to have what he calls "anxiety" with activity. This appears to be a sense of chest pressure. He is notably winded with activity as well. Review of Systems Review of Systems: Per HPI Physical Exam Physical Exam: The patient is alert and oriented. Mood and affect appeared normal. He answered all questions appropriately. HEENT: Pupils are equal and reactive to light and accommodation. Extraocular movements are intact. The sclerae are anicteric. Neuro: Cranial nerves intact Lungs reduced air movement overall. No expiratory wheezing. Reduced breath sounds at the bases with occasional crackles. Cardiac: Heart demonstrates a regular rate and rhythm with occasional ectopy. Normal S1 and S2. No murmurs on examination. Pulses: The patient has palpable radial pulses bilaterally that are equal in intensity Results & Data Vital Signs (Past 12 Hours) Vital Signs Temp Pulse Resp BP Pulse Ox 06/25/19 06:59 37.0 C 77 18 121/90 97 06/25/19 04:29 36.5 C 16 122/87 97 06/24/19 23:11 36.9 C 67 16 123/87 97 Laboratory Results Abnormal Lab Results 06/25/19 06/25/19 06/25/19 04:51 04:51 04:51 WBC 10.98 H RBC 4.04 L Hgb 11.7 L Hct 36.8 L MCV 91.1 MCH 29.0 MCHC 31.8 L RDW Std Deviation 52.6 H RDW Coeff of Dante 16.3 H Plt Count 136 MPV 10.8 H Immature Gran % (Auto) 0.5 Neut % (Auto) 85.1 Lymph % (Auto) 6.5 Ware % (Auto) 7.3 Eos % (Auto) 0.6 Baso % (Auto) 0.0 Immature Gran # (Auto) 0.05 H Neut # (Auto) 9.35 H Lymph # (Auto) 0.71 L Ware # (Auto) 0.80 H Eos # (Auto) 0.07 Baso # (Auto) 0.00 APTT 34.0 H PTT Ratio 1.3 Sodium 144 Potassium 4.2 Chloride 113 H Carbon Dioxide 25 Anion Gap 6.0 BUN 24 H Creatinine 1.06 Est Cr Clr Drug Dosing 65.4 Est GFR ( Amer) 83.8 Est GFR (Non-Af Amer) 72.3 BUN/Creatinine Ratio 23.0 H Glucose 102 H Calcium 7.9 L Magnesium 2.1 PG Care Time/CCT Total # of Minutes Spent Total Time Spent with Patient: Total time spent is greater than 50% in coordination of care (as documented) at patient's floor/unit and/or counseling patient:
[2019-06-25] MEDS ORDERED: BUMETANIDE 0.5 MG in SYRINGE 0 ML IV ONE (10:45)
[2019-06-25] MEDS: TRAMADOL HCL 50 MG TABLET PO PRN ×3 (11:25→23:52)
--- NOTE | 2019-06-25 16:04 | Hospitalist Progress Note ---
Date of Service June 25, 2019 Assessment & Plan (1) Paroxysmal atrial fibrillation: Continue Coreg. Patient back in sinus rhythm. Cardiology considering anticoagulation. (2) STEMI (ST elevation myocardial infarction): Inferiori STEMI on arrival s/p BMS placement. Ventricular fibrillation during cath procedure requiring defibrillation attempt and atrial fibrillation noted on monitor. Echo reveals EF 40-45% with acute MR which could be related to STEMI. Patient refuses Plavix/DAPT (schizophrenic paranoia contributing). Agrees to Prasugrel. Declines aspirin. Cont current medical management. (3) Acute heart failure: Complication s/p STEMI. Taking ASA(refusing), Prasugrel, Atorvastatin, Coreg, Lisinopril. Already with acute MR. High risk for cardiogenic shock or ventricular rupture. Volume overloaded on exam and has symptoms of dyspnea on exertion, but refuses Lasix or Bumex or other diuretic at this time. Appreciate Cardiology assistance with management. (4) Paranoid schizophrenia: Hallucinations. Unable to get a history secondary to mental health condition. (5) Hypoxia: Worsening hypoxia in setting of acute heart failure and MR. Cont medical therapy as patient allows. (6) Mitral regurgitation: Cont medical management for now. Likely related to recent STEMI. (7) Acute hypoxemic respiratory failure: 2/2 STEMI, required intubation on arrival to the ED and self-extubated within 24 hours. He was clinically improved and then became worse but is stable on 4L via nasal canula 2/2 acute heart failure exacerbation. (8) Cholecystitis, acute: Pt with multiple episodes of cholecystitis in the past and has refused surgery (schizophrenic paranoia thought to be contributing). US this admission reveals evidence of GB wall edema and no gallstones. GB wall thickening also could have been related to edematous state. This was associated with RUQ pain and nausea. He was treated medically with a course of Zosyn which was transitioned to Rocephin and Flagyl to avoid QTc prolonging agents. Was switched to augmentin for another few days. (9) HTN (hypertension): At goal continue current management. (10) Open wound of right lower extremity: Chronic, wrapped. Cont wound care daily. (11) Smoker: Strongly recommend quitting. (12) Lymphedema of right lower extremity: chronic (13) Noncompliance: Paranoid schizophrenia and homelessness likely contributing to this. Case management is engaging with office of aging to prepare for discharge. (14) DVT prophylaxis: Heparin Full Dispo-worsened with complications post-STEMI. Continue hospitalization Chelsea Mosley DO [facility] Hospitalist Subjective Appears confused keeps saying that he wasn't knocked out when he thought he would be feels like the day is good doesn't answer direct questions, but denies any pain, including in his abdomen. Tolerating PO cannot accurately tell me he understands about his atrial fibrillation issue overnight despite recently speaking with the global security architect about this.' He cannot tell me if he is short of breath today or not. Still speaking in a whisper no apparent conversational dyspnea. Review of Systems Review of Systems: All systems reviewed & are unremarkable except as noted in HPI & below Physical Exam Physical Exam: CONSTITUTIONAL: WNWD, vitals as above, generally ill appearing and fatigued, no conversational dyspnea, speaking in a whisper, no distress EYES: normal conjunctivae, no scleral icterus ENT: MMM, poor dentition. RESPIRATORY: Faint coarse rhonchi throughout. No overt respiratory distress. CARDIOVASCULAR: regular rate and rhythm, S1 and 2 heard without murmurs, gallops or rubs, no JVD, +RLE swelling with wound present. No LLE swelling GASTROINTESTINAL: soft, nontender, nondistended MUSCULOSKELETAL: head is normocephalic and atraumatic, moves all extremities with ease. No gross focal deficits. SKIN: warm and dry, RLE wound wrapped with dressing that is CDI with some erythema present that appears chronic. Multiple scabs on legs and skin with chronic-appearing changes. Swelling to RLE >LLE. NEUROLOGIC: No facial palsy, no dysarthria. Speaking in a whisper. CN 2-12 grossly intact, no sensory deficit, paranoid, unable to focus on questioning or one conversation. PSYCHIATRIC: alert cooperative and oriented Results & Data Vital Signs (Past 12 Hours) Vital Signs Temp Pulse Resp BP Pulse Ox 06/25/19 15:12 36.8 C 71 15 111/74 97 06/25/19 11:36 36.6 C 72 17 117/82 98 06/25/19 06:59 37.0 C 77 18 121/90 97 06/25/19 04:29 36.5 C 16 122/87 97 Laboratory Results Short CBC 06/25/19 Range/Units 04:51 WBC 10.98 H (4.8-10.8) K/uL Hgb 11.7 L (14.0-18.0) g/dL Hct 36.8 L (42-52) % Plt Count 136 (130-400) K/uL [facility] 06/25/19 04:51 Sodium 144 Potassium 4.2 Chloride 113 H Carbon Dioxide 25 BUN 24 H Creatinine 1.06 Glucose 102 H Calcium 7.9 L Medications Administered Current Inpatient Medications Albuterol (Duoneb) 3 ml NEB Q4R PRN PRN Reason: SOB/WHEEZING Stop: 07/15/19 14:31 Amoxicillin/Clavulanate Potassium (Augmentin 500mg) 1 tab PO BIDM [facility]; Protocol Stop: 06/26/19 08:01 Last Admin: 06/25/19 08:16 Dose: Not Given Documented by: Aspirin (Ecotrin Ectab) 81 mg PO [facility] Stop: 07/16/19 08:59 Last Admin: 06/25/19 08:16 Dose: Not Given Documented by: Atorvastatin Calcium (Lipitor) 80 mg PO [facility] Stop: 07/16/19 08:59 Last Admin: 06/25/19 08:13 Dose: 20 mg Documented by: Carvedilol (Coreg) 12.5 mg PO BID [facility] Stop: 07/21/19 20:59 Last Admin: 06/25/19 08:12 Dose: 12.5 mg Documented by: Dextrose (Dextrose 50%) 25 - 50 ml IV UD PRN; Protocol PRN Reason: Hypoglycemia Protocol Stop: 07/15/19 14:31 Last Admin: 06/17/19 16:39 Dose: 25 ml Documented by: Glucagon (Glucagen) 1 mg SQ UD PRN; Protocol PRN Reason: Hypoglycemia Protocol Stop: 07/15/19 14:31 Glucose (Glucose 40%) 15 - 30 gm PO UD PRN; Protocol PRN Reason: Hypoglycemia Protocol Stop: 07/15/19 14:31 Glucose (Dex4 Glucose) 4 - 8 tabs PO UD PRN; Protocol PRN Reason: Hypoglycemia Protocol Stop: 07/15/19 14:31 Last Admin: 06/17/19 11:32 Dose: 4 tabs Documented by: Lactobacillus Acidophilus (Floranex) 4 tab PO QIDM [facility] Stop: 07/21/19 11:59 Last Admin: 06/25/19 11:25 Dose: Not Given Documented by: [facility]: 07/25/19 08:59 Last Admin: 06/25/19 08:17 Dose: 5 mg Documented by: Menthol (Nice) 1 valentine BUCCAL NOW PRN PRN Reason: Sore Throat Stop: 07/19/19 19:59 Miscellaneous (Carbohydrates For Hypoglycemia) 15 - 30 gm PO UD PRN PRN Reason: Hypoglycemia Treatment Stop: 07/15/19 14:31 Last Admin: 06/17/19 11:11 Dose: 15 gm Documented by: Morphine Sulfate (Morphine Sulfate) 2 mg IV Q4H PRN PRN Reason: Pain Stop: 07/08/19 15:49 Last Admin: 06/25/19 08:57 Dose: 2 mg Documented by: [facility] (Effient) [facility] Stop: 07/19/19 11:29 Last Admin: 06/25/19 08:11 Dose: 10 mg Documented by: Sodium Chloride ([place] Nasal) 0 sprays NA PRN PRN PRN Reason: Congestion Stop: 07/23/19 07:36 Tramadol HCl (Ultram) 50 mg PO Q4H PRN PRN Reason: moderate to severe pain Stop: 07/17/19 14:55 Last Admin: 06/25/19 11:25 Dose: 50 mg Documented by:
[2019-06-26] MEDS: MoRPHine SULFATE 2 MG/ML CARP IV PRN ×3 (02:15→20:34)
[2019-06-26 06:04] LABS: Hematocrit (blood only) 34.1 % (42-52); Hemoglobin 10.8 g/dL (14.0-18.0); Mean Corpuscular Hemoglobin 29.1 pg (25-34); Mean Corpuscular Hgb Conc 31.7 g/dL (32-36); Mean Corpuscular Volume 91.9 fL (80-100); Platelet Count 144 K/uL (130-400); RDW Coefficient of Variation 16.6 % (11.5-14.5); RDW Standard Deviation 54.2 fL (36.4-46.3); Red Blood Count 3.71 M/uL (4.7-6.1); White Blood Count 11.19 K/uL (4.8-10.8)
[2019-06-26 06:42] LABS: BUN Creatinine Ratio 25.5 (10-20); Calcium 7.7 mg/dl (8.5-10.1); Est GFR (African American) 87.7; Est GFR (Non-African American) 75.7
[2019-06-26] MEDS: AMOXICILLIN/CLAVULANATE 500 MG TAB PO SCH (08:55)
[2019-06-26] MEDS: ATORVASTATIN 40 MG TAB PO SCH (08:56)
[2019-06-26] MEDS: CARVEDILOL 6.25 MG TAB PO SCH ×2 (08:56→20:32)
[2019-06-26] MEDS: LISINOPRIL 5 MG TAB PO SCH (08:57)
[2019-06-26] MEDS: ASPIRIN 81 MG ECTAB PO SCH (08:57)
[2019-06-26] MEDS: PRASugrel TAB 10 MG TAB PO SCH (08:57)
[2019-06-26] MEDS: LACTOBACILLUS ACIDOPHILUS (FLORANEX) TAB PO SCH ×3 (08:58→17:39)
--- NOTE | 2019-06-26 13:06 | Cardiology Progress Note ---
Date of Service June 26, 2019 Assessment & Plan (1) Acute myocardial infarction: He has pulmonary edema on exam and is symptomatic. Unfortunately our efforts to provide good care are frustrated by his mental illness. He continues to refuse certain treatments despite multiple conversations related to the dangers of his condition. I will increase his BB today. Continue current dose of lisinopril. He is taking prasugrel but will not take aspirin Will try anticoagulation as well. (2) Complete heart block: Appears to be maintaining a normal sinus rhythm. Heart rates in the normal range. Will increase BB today (3) Mitral regurgitation: His echocardiogram demonstrated severe mitral regurgitation. This may be related to his acute infarct. Curiously, he does not have a loud murmur on examination. Ideally he will undergo diuresis, but he is refusing treatment. (4) Ventricular ectopy: This appears to be resolved. Will continue beta-polo therapy. (5) Atrial fibrillation: No recurrence. No symptoms. No issues with high rates. Will try to add anticoagulation. Continue BB Subjective He continues to complain of weakness and chest pressure ("anxiety"). Even after we discussed the need for diuretic yesterday he eventually refused over concerns about need ing a bedpan. This morning he is concerned that some "dark forces" are cusing some of his symptoms. He is afraid to ambulate. He only eats tomato soup and Sprite. Review of Systems Review of Systems: Per HPI Physical Exam Physical Exam: The patient is alert and oriented. Mood and affect appeared normal. HEENT: Pupils are equal and reactive to light and accommodation. Extraocular movements are intact. The sclerae are anicteric. Neuro: Cranial nerves intact Lungs: Reduced breath sounds in the bases bilaterally. Occasional crackle in the left base. No expiratory wheezing. Normal respiratory effort. Cardiac: Heart demonstrates a regular rate and rhythm. Normal S1 and S2. No murmurs on examination. Pulses: The patient has palpable radial pulses bilaterally that are equal in intensity Extremities: There was no evidence of hypoperfusion. There is no cyanosis or clubbing. Results & Data Vital Signs (Past 12 Hours) Vital Signs Temp Pulse Pulse Resp BP Pulse Ox 06/26/19 11:05 36.7 C 74 12 109/73 06/26/19 08:00 37.1 C 68 16 104/72 95 06/26/19 03:05 36.9 C 71 18 95/67 L 96 Laboratory Results Abnormal Lab Results 06/26/19 06/26/19 05:38 05:39 WBC 11.19 H RBC 3.71 L Hgb 10.8 L Hct 34.1 L MCV 91.9 MCH 29.1 MCHC 31.7 L RDW Std Deviation 54.2 H RDW Coeff of Adnte 16.6 H Plt Count 144 MPV 11.0 H Sodium 143 Potassium 4.0 Chloride 113 H Carbon Dioxide 25 Anion Gap 5.0 BUN 26 H Creatinine 1.02 Est Cr Clr Drug Dosing 68.0 Est GFR ( Amer) 87.7 Est GFR (Non-Af Amer) 75.7 BUN/Creatinine Ratio 25.5 H Glucose 90 Calcium 7.7 L PG Care Time/CCT Total # of Minutes Spent Total Time Spent with Patient: Total time spent is greater than 50% in coordination of care (as documented) at patient's floor/unit and/or counseling patient:
[2019-06-26] MEDS: TRAMADOL HCL 50 MG TABLET PO PRN ×2 (13:17→19:19)
--- NOTE | 2019-06-26 16:33 | Psychiatric Consultation ---
Date of Consultation June 26, 2019 Impression / Recommendations Impression 69-year-old male with history of schizophrenia which remains untreated along with multiple medical concerns. Pt was admitted medically on 06/15/19 due to acute LA requiring cardiac catheterization. He has a history of poor compliance with treatment, and psychiatric consultation is requested to assess patient for noncompliance in the setting of history of schizophrenia diagnosis. Pt was last seen on our consult service in 01/2017 for similar concerns; at that time refusing imaging/testing and surgical recommendations. As patient was reported to have capacity to refuse medical recommendations, the [facility] was contacted to facilitate any necessary discharge planning. On this admission, patient has refused several recommended medications (declining specifically Lasix and Plavix/DAPT - but agreed to Prasugrel). There is also concern for compliance with treatment recommendations on discharge; in particular if oxygen is recommended. Pt is able to present a reasonable explanation for his objections to treatment based on his personal belief system (desire to maintain normal socialization, limitations due to his homelessness, information he has received about side effects or complications from medications). While we may not agree with his decisions, he is able to review treatment recommendations suggested, explain his rationale for his decision, appreciate the consequences, and verbalize a specific choice regarding interventions he is accepting. Pt does verbalize understanding that his decisions may have life-altering consequences and is accepting of this outcome. He is also showing that he is agreeable to certain interventions, and is not entirely refusing all recommendations. Although his choices may not be typical of a usual patient in his circumstances, they have remained consistent and he appears at time of this evaluation to have capacity to make decisions regarding medication interventions in his treatment. He does not meet criteria for inpatient psychiatric admission, as he is denying SI/HI, A/V hallucinations, and does not demonstrate signs of active psychosis. His previous history of schizophrenia is documented, and while his prognosis is poor when compared with the general public, he does not appear to be at acute risk of , disability, or serious injury - as it directly relates to a primary psychiatric condition. It would be recommended t hat suggested medical interventions continue to be presented to the patient, but at this time it seems that patient has the capacity to refuse or accept treatment options. Please notify us if there is a significant change in the patient's presentation as we can re-evaluate the patient if he becomes willing for psychiatric treatment. Dr. Kadie Davies was directly involved in review and discussion of the patient's case and participated in medical decision making regarding treatment recommendations. (1) Noncompliance: 06/26 - Documentation suggesting patient is refusing rather specific recommended interventions. He is not refusing treatment as a whole and denies SI as a motivation for refusal fo recommendations - At time of encounter, patient is able to explain recommendations he is refusing, able to share the risk of ongoing cardiac concerns and fluid overload should he refuse. He verbalizes awareness that this may have life-altering effects and is able to explain his rationale - which, while it may not be typical of a patient in his situation, does not seems to be directly related to delusional beliefs. At time of this evaluation, patient appears to have capacity to make decisions regarding refusal of specific medications - No present criteria at this time for inpatient psychiatric admission, as he is denying SI/HI, A/V hallucinations, and is not showing acute signs of psychosis (2) History of paranoid schizophrenia: 06/26 - Reported history of schizophrenia with longstanding refusal of psychiatric medications and outpatient treatment recommendations - Pt has longstanding history of paranoia and delusions - but these do not seem to be directly related at this time to his refusal of specific medical interventions - He does not appear to be at imminent risk of , disability, or serious injury as it directly relates to a primary psychiatric condition; therefore no indication for inpatient psychiatric commitment - Pt had previously been involved with the [facility], which may have collateral information or may be able to facilitate options regarding discharge planning CPT Code Initial Consultation: 03450 Psych History Identifying Data 69-year-old male admitted medically on 06/15/19 with an acute LA. Pt underwent a cardiac catheterization, recovery is complicated by history of medical noncompliance and refusal of some recommended interventions and medications. Psychiatric consultation is requested based on patient's reported history of schizophrenia and concern for noncompliance. Information is gathered from the patient himself and from hospital documentation. Chief Complaint "It's so difficult, I've been in the hospital over 20 times since my 30's." History of Present Illness Mendoza Masterson is a 69-year-old male admitted medically on 06/15/19 with an acute LA. Pt presented to the ED via EMS and underwent a cardiac catheterization with stent placement. In his recovery, patient has reportedly refused several recommended interventions, specifically recommendation for Lasix and aspirin. Pt declined initiation of clopidogrel but was willing to accept prasugrel as an alternative. Psychiatric consultation is requested to assess patient for his refusal of treatment, given his history of schizophrenia. Pt is known to us from previous psychiatric consultations, the most recent available was in 01/2017 for similar concerns. Pt's case was reviewed with psychiatric nurse liaison (see nursing note for full details). Pt was agreeable to consultation and participated appropriately in evaluation. Pt states, "everyday I'm getting better." Pt states that he has been improving, but remains concerned about his status and is hopeful to keep improving. Pt was asked if he is following recommendations from his primary team in order to ensure a healthy recovery. Pt states, "most of it, there are some things I just won't do." Pt clearly states he is not interested in taking aspirin and states his goal is to "maintain normalcy with people." He shares with this provider that he is not interested in taking medications that affect his ability to interaction with others appropriately - "I'm homeless, that's the nature of it. If I start causing trouble, we have a problem." He is not clearly able to explain how the aspirin will affect his ability to socialize, but states he is taking other recommended medication in its place. Pt states, "they've tried some things, I've tried it, but I can't be running around acting stupid. That's not going to work with how I live." Pt was asked about his ability to care for himself outside of the hospital and replies, "I'm worried, I'm still not sure if I can do it. But I should be anyway from my cancer. This place pulled me through. I can keep going." Pt is rather realistic about his homeless status and interventions that are conducive to that lifestyle. He states, "can you imagine a homeless rj carrying a bottle of oxygen around, that's crazy." Pt denies previous history with psychotropic medications and states, "I don't get much money, I'm not going to throw it away on stuff like that when I can power through just fine." Pt states, "they listed me as schizophrenic, that's not true." Pt denies any disorientation or confusion, he does not verbalize any clearly delusional thought content. He denies hallucinations when asked. Pt denies SI/HI and other acute symptoms of psychosis. Pt was asked if he had any safety concerns, which he denied. Pt states that he had previously had housing arranged by [employer] and he continues to look for an efficiency. Pt states, "People take care of me. People know who I am in [place], they bring me money and drop off food." Past Psychiatric History Previous Psych History: Patient reportedly has a long history of schizophrenia, which continues to be untreated. He denies previous medication trials or inpatient psychiatric hospitalizations. True psychiatric history is unknown. Allergies Allergy/AdvReac Type Severity Reaction Status Date / Time horse dander Allergy Unknown HORSE HAIR Verified 03/02/17 23:27 tetanus toxoid, adsorbed Allergy Unknown Verified 03/02/17 23:27 Family History Pt denies family history of psychiatric conditions Substance Abuse History Pt denies substance abuse. He has not been able to afford alcohol and denies use of other illicit substances. He denies previous history of inpatient D&A rehabilitation. Personal History Living Arrangements: Homeless Employment Status: Unemployed Marital Status: Single Beliefs That Will Affect Care: Spiritual Patient History Social History Preferred Language: Jordanian Communication Ability: Effective Beliefs That Will Affect Care: None Current Living Situation: Homeless Feels Safe at Home: Hesitant to Answer Smoking Status: Never smoker Hx Alcohol Use: No Hx Substance Use: No Physical Exam Psychiatric: Orientation: alert, oriented to person, oriented to place, oriented to time (with the exception of believing today is "Monday" not Monday) and cooperative (and pleasant) Apperance: appropriately dressed (in hospital gown), + disheveled and appeared stated age Pt has long unkempt lim and long white hair, despite appearing disheveled, he is not malodorous. Edentulous. Eye Contact: good eye contact Motor Behavior: no abnormal motor movements (observed while sitting upright in bed) Speech: + abnormal rate/rhythm/volume of speech (voice is raspy and very quiet - difficult to hear; normal rate and rhythym) Affect: + blunted affect (mildly; not appearing overtly depressed or anxious) Mood: + depressed mood (at baseline - "I live a hard life, but I make it through") Thought Process: goal directed thought process, clear/coherent thought process and thought association intact; no thought blocking and thought process not tangential Thought Content: + paranoid (some mild verbalization of distrust of doctors or people in the community); no delusions (no verbalization of obvious delusional thought content) Suicidal Thoughts: denies suicidal thoughts (does report occasional hopelessness with situation, but motivation to live), denies suicidal plan and denies suicidal intent Homicidal Thoughts: denies homicidal thoughts Hallucinations: no auditory hallucinations and no visual hallucinations Documentation suggests patient has reported a "black cloud" and other hallucinations; however, patient denies any history of having seen or heard things others do not Cognition: remote memory grossly intact, attention grossly intact and language grossly intact; + recent memory not intact (does report difficulty recalling some instructions, word recall is poor) Estimated Intelligence: consistent with education level Insight: + fair insight Judgement: + fair judgement (making poor medical decisions, but reasoning is of grossly sound judgment) Vital Signs (Past 24 Hours): Last Vital Signs Temp 36.6 C 06/26/19 15:13 Pulse 74 06/26/19 11:05 Resp 18 06/26/19 15:13 BP 104/67 06/26/19 15:13 Pulse Ox 99 06/26/19 15:13 Review of Systems Constitutional: reports general fatigue Cardiovascular: denied Respiratory: reports episodes of SOB Gastrointestinal: denied Neurological: denied Psychiatric: denies symptoms other than stated above Total of at least 10 systems reviewed, pertinent positives as above and in HPI. Results & Data Medications Administered Aspirin (Ecotrin Ectab) 81 mg PO [facility] Stop: 07/16/19 08:59 Last Admin: 06/26/19 08:57 Dose: Not Given Documented by: [id number] Admin: 06/25/19 08:16 Dose: Not Given Documented by: [id number] Admin: 06/24/19 08:22 Dose: 81 mg Documented by: [id number] Admin: 06/23/19 08:10 Dose: Not Given Documented by: [id number] Admin: 06/22/19 07:51 Dose: 81 mg Documented by: [id number] Admin: 06/21/19 07:25 Dose: Not Given Documented by: [id number] Admin: 06/20/19 08:53 Dose: Not Given Documented by: [id number] Admin: 06/19/19 07:59 Dose: Not Given Documented by: [id number] Admin: 06/18/19 08:54 Dose: Not Given Documented by: [id number] Admin: 06/17/19 09:55 Dose: Not Given Documented by: [id number] Admin: 06/16/19 07:55 Dose: 81 mg Documented by: [id number] Atorvastatin Calcium (Lipitor) 80 mg PO QAM [facility] Stop: 07/16/19 08:59 Last Admin: 06/26/19 08:56 Dose: 20 mg Documented by: [id number] Admin: 06/25/19 08:13 Dose: 20 mg Documented by: [id number] Admin: 06/24/19 08:19 Dose: 80 mg Documented by: [id number] Admin: 06/23/19 08:10 Dose: Not Given Documented by: [id number] Admin: 06/22/19 07:50 Dose: 80 mg Documented by: [id number] Admin: 06/21/19 07:26 Dose: 80 mg Documented by: [id number] Admin: 06/20/19 08:54 Dose: 80 mg Documented by: [id number] Admin: 06/19/19 08:01 Dose: 80 mg Documented by: [id number] Admin: 06/18/19 08:24 Dose: 40 mg Documented by: [id number] Admin: 06/17/19 09:55 Dose: Not Given Documented by: [id number] Admin: 06/16/19 07:55 Dose: 80 mg Documented by: [id number] Carvedilol (Coreg) 12.5 mg PO BID [facility] Stop: 07/21/19 20:59 Last Admin: 06/26/19 08:56 Dose: 12.5 mg Documented by: [id number] Admin: 06/25/19 20:49 Dose: 12.5 mg Documented by: [id number] Admin: 06/25/19 08:12 Dose: 12.5 mg Documented by: [id number] Admin: 06/24/19 20:23 Dose: 12.5 mg Documented by: [id number] Admin: 06/24/19 08:19 Dose: 12.5 mg Documented by: [id number] Admin: 06/23/19 22:24 Dose: 12.5 mg Documented by: [id number] Admin: 06/23/19 08:01 Dose: 12.5 mg Documented by: [id number] Admin: 06/22/19 20:42 Dose: 12.5 mg Documented by: [id number] Admin: 06/22/19 07:50 Dose: 12.5 mg Documented by: [id number] Admin: 06/21/19 20:37 Dose: 12.5 mg Documented by: [id number] Dextrose (Dextrose 50%) 25 - 50 ml IV UD PRN; Protocol PRN Reason: Hypoglycemia Protocol Stop: 07/15/19 14:31 Last Admin: 06/17/19 16:39 Dose: 25 ml Documented by: [id number] Admin: 06/17/19 11:54 Dose: 25 ml Documented by: [id number] Glucose (Dex4 Glucose) 4 - 8 tabs PO UD PRN; Protocol PRN Reason: Hypoglycemia Protocol Stop: 07/15/19 14:31 Last Admin: 06/17/19 11:32 Dose: 4 tabs Documented by: [id number] Lactobacillus Acidophilus (Floranex) 4 tab PO QIDM [facility] Stop: 07/21/19 11:59 Last Admin: 06/26/19 11:29 Dose: Not Given Documented by: [id number] Admin: 06/26/19 08:58 Dose: Not Given Documented by: [id number] Admin: 06/25/19 21:53 Dose: Not Given Documented by: [id number] Admin: 06/25/19 18:17 Dose: Not Given Documented by: [id number] Admin: 06/25/19 11:25 Dose: Not Given Documented by: [id number] Admin: 06/25/19 08:16 Dose: Not Given Documented by: [id number] Admin: 06/24/19 20:31 Dose: Not Given Documented by: [id number] Admin: 06/24/19 15:38 Dose: Not Given Documented by: [id number] Admin: 06/24/19 12:15 Dose: Not Given Documented by: [id number] Admin: 06/24/19 08:21 Dose: Not Given Documented by: [id number] Admin: 06/23/19 22:25 Dose: Not Given Documented by: [id number] Admin: 06/23/19 18:24 Dose: Not Given Documented by: [id number] Admin: 06/23/19 11:39 Dose: Not Given Documented by: [id number] Admin: 06/23/19 08:02 Dose: Not Given Documented by: [id number] Admin: 06/22/19 20:39 Dose: Not Given Documented by: [id number] Admin: 06/22/19 16:45 Dose: Not Given Documented by: [id number] Admin: 06/22/19 11:42 Dose: Not Given Documented by: [id number] Admin: 06/22/19 07:58 Dose: Not Given Documented by: [id number] Admin: 06/21/19 20:31 Dose: Not Given Documented by: [id number] Admin: 06/21/19 16:57 Dose: Not Given Documented by: [id number] Admin: 06/21/19 11:16 Dose: 4 tab Documented by: [id number] [facility]) [facility] [place] Stop: 07/25/19 08:59 Last Admin: 06/26/19 08:57 Dose: 5 mg Documented by: [id number] Admin: 06/25/19 08:17 Dose: 5 mg Documented by: [id number] Miscellaneous (Carbohydrates For Hypoglycemia) 15 - 30 gm PO UD PRN PRN Reason: Hypoglycemia Treatment Stop: 07/15/19 14:31 Last Admin: 06/17/19 11:11 Dose: 15 gm Documented by: [id number] Morphine Sulfate (Morphine Sulfate) 2 mg IV Q4H PRN PRN Reason: Pain Stop: 07/08/19 15:49 Last Admin: 06/26/19 13:17 Dose: 2 mg Documented by: [id number] Admin: 06/26/19 02:15 Dose: 2 mg Documented by: [id number] Admin: 06/25/19 20:51 Dose: 2 mg Documented by: [id number] Admin: 06/25/19 08:57 Dose: 2 mg Documented by: [id number] Admin: 06/25/19 00:20 Dose: 2 mg Documented by: [id number] Admin: 06/24/19 16:56 Dose: 2 mg Documented by: [id number] Prasugrel (Effient) 10 [facility] [place] Stop: 07/19/19 11:29 Last Admin: 06/26/19 08:57 Dose: 10 mg Documented by: [id number] Admin: 06/25/19 08:11 Dose: 10 mg Documented by: [id number] Admin: 06/24/19 08:21 Dose: 10 mg Documented by: [id number] Admin: 06/23/19 08:02 Dose: 10 mg Documented by: [id number] Admin: 06/22/19 07:51 Dose: 10 mg Documented by: [id number] Admin: 06/21/19 07:26 Dose: 10 mg Documented by: [id number] Admin: 06/20/19 08:53 Dose: Not Given Documented by: [id number] Admin: 06/19/19 12:18 Dose: Not Given Documented by: [id number] Tramadol HCl (Ultram) 50 mg PO Q4H PRN PRN Reason: moderate to severe pain Stop: 07/17/19 14:55 Last Admin: 06/26/19 13:17 Dose: 50 mg Documented by: [id number] Admin: 06/25/19 23:52 Dose: 50 mg Documented by: [id number] Admin: 06/25/19 18:16 Dose: 50 mg Documented by: [id number] Admin: 06/25/19 11:25 Dose: 50 mg Documented by: [id number] Admin: 06/24/19 22:16 Dose: 50 mg Documented by: [id number] Admin: 06/24/19 15:37 Dose: 50 mg Documented by: [id number] Admin: 06/23/19 16:13 Dose: 50 mg Documented by: [id number] Admin: 06/23/19 01:40 Dose: 50 mg Documented by: [id number] Admin: 06/22/19 18:35 Dose: 50 mg Documented by: [id number] Admin: 06/22/19 08:25 Dose: 50 mg Documented by: [id number] Admin: 06/21/19 23:34 Dose: 50 mg Documented by: [id number] Admin: 06/21/19 16:56 Dose: 50 mg Documented by: [id number]
--- NOTE | 2019-06-26 16:54 | Hospitalist Progress Note ---
Date of Service June 26, 2019 Assessment & Plan (1) Paroxysmal atrial fibrillation: Continue Coreg. Xarelto started. Patient has been in sinus rhythm for the past 24 hours. (2) Acute heart failure: Complication s/p STEMI. Taking ASA(refusing), Prasugrel, Atorvastatin, Coreg, Lisinopril. Already with acute MR. High risk for cardiogenic shock or ventricular rupture. Volume overloaded on exam and has symptoms of dyspnea on exertion, but refuses Lasix or Bumex or other diuretic at this time. Appreciate Cardiology assistance with management. (3) Hypoxia: Worsening hypoxia in setting of acute heart failure and MR. Cont medical therapy as patient allows. (4) Mitral regurgitation: Cont medical management for now. Likely related to recent STEMI. (5) STEMI (ST elevation myocardial infarction): Inferiori STEMI on arrival s/p BMS placement. Ventricular fibrillation during cath procedure requiring defibrillation attempt and atrial fibrillation noted on monitor. Echo reveals EF 40-45% with acute MR which could be related to STEMI. Patient refuses Plavix/DAPT (schizophrenic paranoia contributing). Agrees to Prasugrel. Declines aspirin. Cont current medical management. (6) Acute hypoxemic respiratory failure: 2/2 STEMI, required intubation on arrival to the ED and self-extubated within 24 hours. He was clinically improved and then became worse but is stable on 4L via nasal canula 2/2 acute heart failure exacerbation. (7) Cholecystitis, acute: Pt with multiple episodes of cholecystitis in the past and has refused surgery (schizophrenic paranoia thought to be contributing). US this admission reveals evidence of GB wall edema and no gallstones. GB wall thickening also could have been related to edematous state. This was associated with RUQ pain and nausea. He was treated medically with a course of Zosyn which was transitioned to Rocephin and Flagyl to avoid QTc prolonging agents. Was switched to augmentin for another few days and this is now stopped. Some TTP on exam in RUQ but he is difficult to examine and seems to be reacting before I push on him. He is also tensing up his abdomen on exam and I cannot get him to relax enough to perform an accurate exam. (8) HTN (hypertension): Blood pressure is on the low side. Will decrease Coreg and lisinopril dosages by half. (9) Open wound of right lower extremity: Chronic, wrapped. Cont wound care daily. (10) Smoker: Strongly recommend quitting. (11) Lymphedema of right lower extremity: chronic (12) Noncompliance: Paranoid schizophrenia and homelessness likely contributing to this. Case management is engaging with office of aging to prepare for discharge. (13) Paranoid schizophrenia: Hallucinations. Unable to get a history secondary to mental health condition. Consulted psychiatry for assistance. (14) DVT prophylaxis: Xarelto Full Dispo-worsened with complications post-STEMI. Continue hospitalization Chelsea Mosley DO [facility] Hospitalist Subjective Review of systems cannot be obtained as patient is paranoid schizophrenic and unable to answer questions directly. He is reporting a large black cloud in his room which is potentially going to knock him out. He continues to fixate on this. Review of Systems Review of Systems: Unobtainable due to mental health condition Physical Exam Physical Exam: CONSTITUTIONAL: WNWD, vitals as above, generally ill appearing and fatigued, no conversational dyspnea, speaking in a whisper, no distress EYES: normal conjunctivae, no scleral icterus ENT: MMM, poor dentition. RESPIRATORY: Faint coarse rhonchi throughout. No overt respiratory distress. CARDIOVASCULAR: regular rate and rhythm, S1 and 2 heard without murmurs, gallops or rubs, no JVD, +RLE swelling with wound present. No LLE swelling GASTROINTESTINAL: soft, nontender, nondistended MUSCULOSKELETAL: head is normocephalic and atraumatic, moves all extremities with ease. No gross focal deficits. SKIN: warm and dry, RLE wound wrapped with dressing that is CDI with some erythema present that appears chronic. Multiple scabs on legs and skin with chronic-appearing changes. Swelling to RLE >LLE. NEUROLOGIC: No facial palsy, no dysarthria. Speaking in a whisper. CN 2-12 grossly intact, no sensory deficit, paranoid, unable to focus on questioning or one conversation. PSYCHIATRIC: alert cooperative and oriented Results & Data Vital Signs (Past 12 Hours) Vital Signs Temp Pulse Pulse Resp BP Pulse Ox 06/26/19 15:13 36.6 C 18 104/67 99 06/26/19 11:05 36.7 C 74 12 109/73 06/26/19 08:00 37.1 C 68 16 104/72 95 Laboratory Results Short CBC 06/26/19 Range/Units 05:39 WBC 11.19 H (4.8-10.8) K/uL Hgb 10.8 L (14.0-18.0) g/dL Hct 34.1 L (42-52) % Plt Count 144 (130-400) K/uL BMP 06/26/19 05:38 Sodium 143 Potassium 4.0 Chloride 113 H Carbon Dioxide 25 BUN 26 H Creatinine 1.02 Glucose 90 Calcium 7.7 L Medications Administered Current Inpatient Medications Albuterol (Duoneb) 3 ml NEB Q4R PRN PRN Reason: SOB/WHEEZING Stop: 07/15/19 14:31 [facility]ir[facility] ([facility]rin [facility]) [facility] [place]: 07/16/19 08:59 Last Admin: 06/26/19 08:57 Dose: Not Given Documented by: Atorvastatin Calcium (Lipitor) [facility] Stop: 07/16/19 08:59 Last Admin: 06/26/19 08:56 Dose: 20 mg Documented by: Carvedilol (Coreg) 12.5 mg PO BID [facility] Stop: 07/21/19 20:59 Last Admin: 06/26/19 08:56 Dose: 12.5 mg Documented by: Dextrose (Dextrose 50%) 25 - 50 ml IV UD PRN; Protocol PRN Reason: Hypoglycemia Protocol Stop: 07/15/19 14:31 Last Admin: 06/17/19 16:39 Dose: 25 ml Documented by: Glucagon (Glucagen) 1 mg SQ UD PRN; Protocol PRN Reason: Hypoglycemia Protocol Stop: 07/15/19 14:31 Glucose (Glucose 40%) 15 - 30 gm PO UD PRN; Protocol PRN Reason: Hypoglycemia Protocol Stop: 07/15/19 14:31 Glucose (Dex4 Glucose) 4 - 8 tabs PO UD PRN; Protocol PRN Reason: Hypoglycemia Protocol Stop: 07/15/19 14:31 Last Admin: 06/17/19 11:32 Dose: 4 tabs Documented by: Lactobacillus Acidophilus (Floranex) 4 tab PO QIDM [facility] Stop: 07/21/19 11:59 Last Admin: 06/26/19 11:29 Dose: Not Given Documented by: Lisinopril (Zestril) [facility] Stop: 07/25/19 08:59 Last Admin: 06/26/19 08:57 Dose: 5 mg Documented by: Menthol (Nice) 1 valentine BUCCAL NOW PRN PRN Reason: Sore Throat Stop: 07/19/19 19:59 Miscellaneous (Carbohydrates For Hypoglycemia) 15 - 30 gm PO UD PRN PRN Reason: Hypoglycemia Treatment Stop: 07/15/19 14:31 Last Admin: 06/17/19 11:11 Dose: 15 gm Documented by: Morphine Sulfate (Morphine Sulfate) 2 mg IV Q4H PRN PRN Reason: Pain Stop: 07/08/19 15:49 Last Admin: 06/26/19 13:17 Dose: 2 mg Documented by: Prasugrel (Effient) 10 mg PO QAM [facility] Stop: 07/19/19 11:29 Last Admin: 06/26/19 08:57 Dose: 10 mg Documented by: Sodium Chloride ([place] Nasal) 0 sprays NA PRN PRN PRN Reason: Congestion Stop: 07/23/19 07:36 Tramadol HCl (Ultram) 50 mg PO Q4H PRN PRN Reason: moderate to severe pain Stop: 07/17/19 14:55 Last Admin: 06/26/19 13:17 Dose: 50 mg Documented by:
[2019-06-27] MEDS: TRAMADOL HCL 50 MG TABLET PO PRN ×3 (05:30→22:21)
[2019-06-27 06:18] LABS: Hematocrit (blood only) 35.3 % (42-52); Hemoglobin 11.2 g/dL (14.0-18.0); Mean Corpuscular Hemoglobin 29.1 pg (25-34); Mean Corpuscular Hgb Conc 31.7 g/dL (32-36); Mean Corpuscular Volume 91.7 fL (80-100); Mean Platelet Volume 10.6 fL (7.4-10.4); Platelet Count 158 K/uL (130-400); RDW Coefficient of Variation 16.5 % (11.5-14.5); RDW Standard Deviation 54.1 fL (36.4-46.3); Red Blood Count 3.85 M/uL (4.7-6.1); White Blood Count 13.04 K/uL (4.8-10.8)
[2019-06-27 06:46] LABS: Albumin Level 2.2 gm/dl (3.4-5.0); BUN Creatinine Ratio 24.5 (10-20); Bilirubin Direct 0.3 mg/dl (0-0.2); Calcium 8.4 mg/dl (8.5-10.1); Creatinine Clr Calc Pharmacy 64.8 ml/min; Est GFR (African American) 82.8; Est GFR (Non-African American) 71.5
[2019-06-27 06:49] LABS: Bilirubin,Total 0.7 mg/dl (0.2-1); Total Protein 5.6 gm/dl (6.4-8.2)
[2019-06-27] MEDS: CARVEDILOL 6.25 MG TAB PO SCH ×2 (09:46→20:29)
[2019-06-27] MEDS: ASPIRIN 81 MG ECTAB PO SCH (09:46)
[2019-06-27] MEDS: PRASugrel TAB 10 MG TAB PO SCH (09:46)
[2019-06-27] MEDS: LISINOPRIL 2.5 MG TAB PO SCH (09:46)
[2019-06-27] MEDS: RIVAROXABAN 15 MG TAB PO SCH (09:46)
[2019-06-27] MEDS: ATORVASTATIN 40 MG TAB PO SCH ×2 (09:50→09:52)
--- NOTE | 2019-06-27 12:13 | Cardiology Progress Note ---
Date of Service June 27, 2019 Assessment & Plan (1) Acute myocardial infarction: He has pulmonary edema on exam and is symptomatic. He has a lot of paranoia regarding certain medications and potentially even the people administering his medications. He was evaluated by Psychiatry yesterday. The did not feel that he required any inpatient admission or more aggressive therapy for his mental illness. While his thought process certainly puts him at risk of serious cardiac complications and , who was felt that it was reasonable for him to make these choices based on his own logic regarding the consequences. Ideally he would take a diuretic, eyes this would likely make him feel a lot better. He still has an element of pulmonary vascular congestion. He has been tolerating his beta-polo and LOIS-inhibitor, but the doses were reduced yesterday over some concern over low blood pressure. I would advocate increasing his doses of both carvedilol and lisinopril. (2) Complete heart block: Appears to be maintaining a normal sinus rhythm. Heart rates in the normal range. (3) Mitral regurgitation: His echocardiogram demonstrated severe mitral regurgitation. This may be related to his acute infarct. Curiously, he does not have a loud murmur on examination. Ideally he will undergo diuresis, but he is refusing treatment. (4) Ventricular ectopy: This appears to be resolved. Will continue beta-polo therapy. (5) Atrial fibrillation: No recurrence. No symptoms. No issues with high rates. Xarelto was added to his medical regimen this morning. Which shows reduced dose based on his compliance with prasugrel therapy. Interestingly, he did take aspirin this morning as well. Will continue beta-blockade. Subjective This morning the patient reported feeling poorly. The did apparently sit on the edge of the bed yesterday but felt fatigued and dizzy. He continues to have symptoms of chest pressure and breathing difficulty associated with activity. He describes this in different ways and is very fearful that someone in particular is causing the symptoms in his case. He has some concerns about medications and food at our institution. He is also very concerned about leaving the hospital as he does not trust many people. Review of Systems Review of Systems: Per HPI Physical Exam Physical Exam: The patient is alert and oriented. Mood and affect appeared normal. He answered all questions appropriately. HEENT: Pupils are equal and reactive to light and accommodation. Extraocular movements are intact. The sclerae are anicteric. Neuro: Cranial nerves intact Lungs: Normal respiratory effort. Reduced breath sounds at the bases bilaterally. No expiratory wheezing. Cardiac: Heart demonstrates a regular rate and rhythm. Normal S1 and S2. No murmurs on examination. Pulses: The patient has palpable radial pulses bilaterally that are equal in intensity Results & Data Vital Signs (Past 12 Hours) Vital Signs Temp Pulse Pulse Pulse Resp BP Pulse Ox 06/27/19 10:40 36.8 C 77 18 120/77 93 06/27/19 07:20 73 06/27/19 07:01 36.8 C 75 18 110/68 95 06/27/19 03:11 36.8 C 72 17 124/71 95 Laboratory Results Abnormal Lab Results 06/27/19 06/27/19 05:42 05:42 WBC 13.04 H RBC 3.85 L Hgb 11.2 L Hct 35.3 L MCV 91.7 MCH 29.1 MCHC 31.7 L RDW Std Deviation 54.1 H RDW Coeff of Dante 16.5 H Plt Count 158 MPV 10.6 H Sodium 142 Potassium 4.0 Chloride 110 H Carbon Dioxide 27 Anion Gap 5.0 BUN 26 H Creatinine 1.07 Est Cr Clr Drug Dosing 64.8 Est GFR ( Amer) 82.8 Est GFR (Non-Af Amer) 71.5 BUN/Creatinine Ratio 24.5 H Glucose 91 Calcium 8.4 L Total Bilirubin 0.7 Direct Bilirubin 0.3 H AST 30 ALT 37 Alkaline Phosphatase 137 H Total Protein 5.6 L Albumin 2.2 L ECG Additional Comments: Sinus rhythm PG Care Time/CCT Total # of Minutes Spent Total Time Spent with Patient: Total time spent is greater than 50% in coordination of care (as documented) at patient's floor/unit and/or counseling patient:
--- NOTE | 2019-06-27 12:35 | Hospitalist Progress Note ---
Date of Service June 27, 2019 Assessment & Plan (1) Paroxysmal atrial fibrillation: Continue Coreg. Patient back in sinus rhythm. Started on Xarelto. (2) STEMI (ST elevation myocardial infarction): Inferiori STEMI on arrival s/p BMS placement. Ventricular fibrillation during cath procedure requiring defibrillation attempt and atrial fibrillation noted on monitor. Echo reveals EF 40-45% with acute MR which could be related to STEMI. Patient refuses Plavix/DAPT (schizophrenic paranoia contributing). Agrees to Prasugrel. Declines aspirin. Cont current medical management. (3) Acute heart failure: Complication s/p STEMI. Taking ASA(refusing), Prasugrel, Atorvastatin, Coreg, Lisinopril. Already with acute MR. High risk for cardiogenic shock or ventricular rupture. Volume overloaded on exam and has symptoms of dyspnea on exertion, but refuses Lasix or Bumex or other diuretic at this time. Appreciate Cardiology assistance with management. (4) Paranoid schizophrenia: Hallucinations. Unable to get a history secondary to mental health condition. Evaluated by psych who feels there is nothing further to do from a treatment standpoint, and he is able to make his own decisions. (5) Hypoxia: Worsening hypoxia in setting of acute heart failure and MR. Cont medical therapy as patient allows. (6) Mitral regurgitation: Cont medical management for now. Likely related to recent STEMI. (7) Acute hypoxemic respiratory failure: 2/2 STEMI, required intubation on arrival to the ED and self-extubated within 24 hours. He was clinically improved and then became worse but is stable on 4L via nasal canula 2/2 acute heart failure exacerbation. (8) Cholecystitis, acute: Pt with multiple episodes of cholecystitis in the past and has refused surgery (schizophrenic paranoia thought to be contributing). US this admission reveals evidence of GB wall edema and no gallstones. GB wall thickening also could have been related to edematous state. This was associated with RUQ pain and nausea. He was treated medically with a course of Zosyn which was transitioned to Rocephin and Flagyl to avoid QTc prolonging agents. Was switched to augmentin but has now completed the course. No further abdominal pain or distension and he is tolerating oral food. (9) HTN (hypertension): At goal, continue current management. (10) Open wound of right lower extremity: Chronic, wrapped. Cont wound care daily. (11) Smoker: Strongly recommend quitting. (12) Lymphedema of right lower extremity: chronic (13) Noncompliance: Paranoid schizophrenia and homelessness likely contributing to this. Case management is engaging with office of aging to prepare for discharge. (14) DVT prophylaxis: Xarelto Full Dispo-worsened with complications post-STEMI. Continue hospitalization Chelsea Mosley DO [facility] Hospitalist Subjective Unable to assess patient as he cannot answer questions appropriately. He gets easily frustrated and shuts down about the plans/meds that he has reasons to decline. He did take aspirin today but continues to decline diuretics, which have been offered daily. Review of Systems Review of Systems: Unobtainable due to mental health condition Physical Exam Physical Exam: CONSTITUTIONAL: WNWD, vitals as above, generally ill appearing and fatigued, no conversational dyspnea, speaking in a whisper, no distress EYES: normal conjunctivae, no scleral icterus ENT: MMM, poor dentition. RESPIRATORY: clear to auscultation throughout. No overt respiratory distress. CARDIOVASCULAR: regular rate and rhythm, S1 and 2 heard without murmurs, gallops or rubs, no JVD, +RLE swelling with wound present. No LLE swelling GASTROINTESTINAL: soft, nontender, nondistended MUSCULOSKELETAL: head is normocephalic and atraumatic, moves all extremities with ease. No gross focal deficits. SKIN: warm and dry, RLE wound wrapped with dressing that is CDI with some erythema present that appears chronic. Multiple scabs on legs and skin with chronic-appearing changes. Swelling to RLE >LLE. NEUROLOGIC: No facial palsy, no dysarthria. Speaking in a whisper. CN 2-12 grossly intact, no sensory deficit, paranoid, unable to focus on questioning or one conversation. PSYCHIATRIC: alert cooperative and oriented Results & Data Vital Signs (Past 12 Hours) Vital Signs Temp Pulse Pulse Pulse Resp BP Pulse Ox 06/27/19 10:40 36.8 C 77 18 120/77 93 06/27/19 07:20 73 06/27/19 07:01 36.8 C 75 18 110/68 95 06/27/19 03:11 36.8 C 72 17 124/71 95 Laboratory Results Short CBC 06/27/19 Range/Units 05:42 WBC 13.04 H (4.8-10.8) K/uL Hgb 11.2 L (14.0-18.0) g/dL Hct 35.3 L (42-52) % Plt Count 158 (130-400) K/uL BMP 06/27/19 05:42 Sodium 142 Potassium 4.0 Chloride 110 H Carbon Dioxide 27 BUN 26 H Creatinine 1.07 Glucose 91 Calcium 8.4 L Liver Function 06/27/19 Range/Units 05:42 Total Bilirubin 0.7 (0.2-1) mg/dl Direct Bilirubin 0.3 H (0-0.2) mg/dl AST 30 (15-37) U/L ALT 37 (12-78) U/L Alkaline Phosphatase 137 H (45-117) U/L Albumin 2.2 L (3.4-5.0) gm/dl Medications Administered Current Inpatient Medications Albuterol (Duoneb) 3 ml NEB Q4R PRN PRN Reason: SOB/WHEEZING Stop: 07/15/19 14:31 Aspirin (Ecotrin Ectab) 81 mg PO QAM [facility] Stop: 07/16/19 08:59 Last Admin: 06/27/19 09:46 Dose: 81 mg Documented by: Atorvastatin Calcium (Lipitor) 80 mg PO QAM [facility] Stop: 07/16/19 08:59 Last Admin: 06/27/19 09:52 Dose: Not Given Documented by: Carvedilol (Coreg) 6.25 mg PO BID [facility] Stop: 07/26/19 20:59 Last Admin: 06/27/19 09:46 Dose: 6.25 mg Documented by: Dextrose (Dextrose 50%) 25 - 50 ml IV UD PRN; Protocol PRN Reason: Hypoglycemia Protocol Stop: 07/15/19 14:31 Last Admin: 06/17/19 16:39 Dose: 25 ml Documented by: Glucagon (Glucagen) 1 mg SQ UD PRN; Protocol PRN Reason: Hypoglycemia Protocol Stop: 07/15/19 14:31 Glucose (Glucose 40%) 15 - 30 gm PO UD PRN; Protocol PRN Reason: Hypoglycemia Protocol Stop: 07/15/19 14:31 Glucose (Dex4 Glucose) 4 - 8 tabs PO UD PRN; Protocol PRN Reason: Hypoglycemia Protocol Stop: 07/15/19 14:31 Last Admin: 06/17/19 11:32 Dose: 4 tabs Documented by: Lisinopril (Zestril) [facility] Stop: 07/27/19 08:59 Last Admin: 06/27/19 09:46 Dose: 2.5 mg Documented by: Menthol (Nice) 1 valentine BUCCAL NOW PRN PRN Reason: Sore Throat Stop: 07/19/19 19:59 Miscellaneous (Carbohydrates For Hypoglycemia) 15 - 30 gm PO UD PRN PRN Reason: Hypoglycemia Treatment Stop: 07/15/19 14:31 Last Admin: 06/17/19 11:11 Dose: 15 gm Documented by: Morphine Sulfate (Morphine Sulfate) 2 mg IV Q4H PRN PRN Reason: Pain Stop: 07/08/19 15:49 Last Admin: 06/26/19 20:34 Dose: 2 mg Documented by: Prasugrel (Effient) 10 mg PO QAM [facility] Stop: 07/19/19 11:29 Last Admin: 06/27/19 09:46 Dose: 10 mg Documented by: Rivaroxaban (Xarelto) 15 mg PO QDD [facility] Stop: 07/27/19 08:59 Last Admin: 06/27/19 09:46 Dose: 15 mg Documented by: Sodium Chloride ([place] Nasal) 0 sprays NA PRN PRN PRN Reason: Congestion Stop: 07/23/19 07:36 Tramadol HCl (Ultram) 50 mg PO Q4H PRN PRN Reason: moderate to severe pain Stop: 07/17/19 14:55 Last Admin: 06/27/19 05:30 Dose: 50 mg Documented by:
[2019-06-27] MEDS ORDERED: METOPROLOL TARTRATE 1 MG/ML VIAL IV ONE (16:11)
[2019-06-27] MEDS ORDERED: METOPROLOL TARTRATE 1 MG/ML VIAL IV STA (16:12)
[2019-06-27] MEDS ORDERED: METOPROLOL TARTRATE 25 MG TAB PO ONE (16:30)
--- NOTE | 2019-06-27 17:05 | Cardiology Progress Note ---
Date of Service June 27, 2019 Assessment & Plan (1) Complete heart block: He had a brief period complete heart block associated with bradycardia. This was in the setting of forceful coughing. Generally speaking he has been maintaining normal sinus rhythm without significant conduction disease. Will continue to monitor him for additional episodes. (2) Atrial fibrillation: Did have what appeared to be some brief atrial fibrillation but this rh ythm eventually regularize did appears to be a sustained atrial flutter. The overall heart rate is relatively low, around 100 beats per minute. However, given his pulmonary edema, reduced LV function and recent myocardial infarction, seems imperative to add either slow the rate or convert him back to sinus. He was amenable to taking extra doses of beta-polo. So far they have not had the desired effect. Did describe to him the option for amiodarone. This will need to be given intravenously. He seems to wax and wane with respect to accepting this possibility. He wants to think about it for the time being. He likely does have some ischemia associated with this fast heartbeat. It is unclear whether he is fully revascularized given his noncompliance with medical therapy over the past few days. It is possible that he has had some stent thrombosis or compromised flow. He certainly has EKG changes concerning for ischemia. He has symptoms of chest discomfort which are likely more related to his pulmonary edema. He continues to refuse diuretics for the reasons previously mentioned, primarily concerns over use of a bedpan. Did have an extensive conversation with the patient today regarding other options to include a [place] catheter or a condom catheter. Again he wishes to think about it. I did mention to the patient the at he could suffer a significant an acute decli ne in his cardiac function. Did mention that he has had some cardiac injury and this can be a deadly problem. Briefly discussed code status and he does wish to be resuscitated if necessary. Subjective This afternoon the patient developed recurrent atrial arrhythmias. He did have a period bradycardia associated with coughing. Later developed a brief episode of a narrow complex tachycardia suggestive of an atrial flutter. This spontaneously converted to a normal sinus rhythm. Later in the afternoon with some activity the patient again converted to a rapid heartbeat. He did have some associated dyspnea and chest discomfort. Results & Data Vital Signs (Past 12 Hours) Vital Signs Temp Pulse Pulse Pulse Resp BP BP 06/27/19 16:16 105 H 154/96 H 06/27/19 15:19 36.5 C 85 24 154/96 H 06/27/19 15:14 75 06/27/19 10:40 36.8 C 77 18 120/77 06/27/19 07:20 73 06/27/19 07:01 36.8 C 75 18 110/68 Pulse Ox 06/27/19 16:16 06/27/19 15:19 97 06/27/19 15:14 06/27/19 10:40 93 06/27/19 07:20 06/27/19 07:01 95
[2019-06-27] MEDS ORDERED: AMIODARONE IV BOLUS / DRIP IV STA (18:51)
[2019-06-27] MEDS ORDERED: AMIODARONE / D5W 150 MG/100 ML BAG IV ONE (19:00)
[2019-06-27] MEDS ORDERED: AMIODARONE / D5W 360 MG/200 ML BAG IV SCH (19:10)
[2019-06-27] MEDS: MoRPHine SULFATE 2 MG/ML CARP IV PRN (20:29)
[2019-06-28] MEDS: MoRPHine SULFATE 2 MG/ML CARP IV PRN ×2 (00:33→08:29)
[2019-06-28] MEDS ORDERED: AMIODARONE / D5W 360 MG/200 ML BAG IV SCH (01:10)
[2019-06-28] MEDS: TRAMADOL HCL 50 MG TABLET PO PRN ×4 (04:07→21:08)
[2019-06-28 06:33] LABS: Hematocrit (blood only) 33.2 % (42-52); Hemoglobin 10.6 g/dL (14.0-18.0); Mean Corpuscular Hgb Conc 31.9 g/dL (32-36); Mean Corpuscular Volume 90.7 fL (80-100); Mean Platelet Volume 10.9 fL (7.4-10.4); Platelet Count 186 K/uL (130-400); RDW Coefficient of Variation 16.6 % (11.5-14.5); RDW Standard Deviation 54.2 fL (36.4-46.3); Red Blood Count 3.66 M/uL (4.7-6.1); White Blood Count 12.25 K/uL (4.8-10.8)
[2019-06-28 07:10] LABS: BUN Creatinine Ratio 27.3 (10-20); Creatinine Clr Calc Pharmacy 68.7 ml/min; Est GFR (African American) 88.8; Est GFR (Non-African American) 76.6; Potassium 4.4 mmol/L (3.5-5.1)
[2019-06-28] MEDS: PRASugrel TAB 10 MG TAB PO SCH (08:30)
[2019-06-28] MEDS: ASPIRIN 81 MG ECTAB PO SCH (08:31)
[2019-06-28] MEDS: ATORVASTATIN 40 MG TAB PO SCH (08:31)
[2019-06-28] MEDS: LISINOPRIL 2.5 MG TAB PO SCH (08:31)
[2019-06-28] MEDS: CARVEDILOL 6.25 MG TAB PO SCH ×2 (08:31→21:08)
--- NOTE | 2019-06-28 15:40 | Hospitalist Progress Note ---
Date of Service June 28, 2019 Assessment & Plan (1) Paranoid schizophrenia: Hallucinations. Unable to get a history secondary to mental health condition. Evaluated by psych who feels there is nothing further to do from a treatment standpoint, and he is able to make his own decisions. He has been refusing to let the nurses change his bedsheets when he urinates and refuses to let them turn him or clean him and he is very malodorous at this point. He is not able to demonstrate knowledge to me that he understands what is going on with him. He gets defensive any time someone tells him something that doesn't match his current hallucinations/beliefs. (2) Paroxysmal atrial fibrillation: Continue Coreg. Patient back in sinus rhythm. Started on Xarelto. Cardio planning to try amiodarone. (3) STEMI (ST elevation myocardial infarction): Inferiori STEMI on arrival s/p BMS placement. Ventricular fibrillation during cath procedure requiring defibrillation attempt and atrial fibrillation noted on monitor. Echo reveals EF 40-45% with acute MR which could be related to STEMI. Patient refuses Plavix/DAPT (schizophrenic paranoia contributing). Agrees to Prasugrel. Declines aspirin. Cont current medical management. (4) Acute heart failure: Complication s/p STEMI. Taking ASA(refusing), Prasugrel, Atorvastatin, Coreg, Lisinopril. Already with acute MR. High risk for cardiogenic shock or ventricular rupture. Volume overloaded on exam and has symptoms of dyspnea on exertion, but refuses Lasix or Bumex or other diuretic at this time. Appreciate Cardiology assistance with management. (5) Hypoxia: Worsening hypoxia in setting of acute heart failure and MR. Cont medical therapy as patient allows. (6) Mitral regurgitation: Cont medical management for now. Likely related to recent STEMI. (7) Acute hypoxemic respiratory failure: 2/2 STEMI, required intubation on arrival to the ED and self-extubated within 24 hours. He was clinically improved and then became worse but is stable on 4L via nasal canula 2/2 acute heart failure exacerbation. (8) Cholecystitis, acute: Pt with multiple episodes of cholecystitis in the past and has refused surgery (schizophrenic paranoia thought to be contributing). US this admission reveals evidence of GB wall edema and no gallstones. GB wall thickening also could have been related to edematous state. This was associated with RUQ pain and nausea. He was treated medically with a course of Zosyn which was transitioned to Rocephin and Flagyl to avoid QTc prolonging agents. Was switched to augmentin but has now completed the course. No further abdominal pain or distension and he is tolerating oral food. (9) HTN (hypertension): At goal, continue current management. (10) Open wound of right lower extremity: Chronic, wrapped. Cont wound care daily. (11) Smoker: Strongly recommend quitting. (12) Lymphedema of right lower extremity: chronic (13) Noncompliance: Paranoid schizophrenia and homelessness likely contributing to this. Case management is engaging with office of aging to prepare for discharge. (14) DVT prophylaxis: Xarelto Full Dispo-worsened with complications post-STEMI. Continue hospitalization Chelsea Mosley DO [facility] Hospitalist Subjective The patient states "Im dong alright. I didn't think I was going to...I thought we were going to have a bad bad day, but I'm alright" Continues to say variations of this throughout the exam. He denies chest pain, but then reports pain all over. Has used morphine and tramadol overnight for generalized pain. He is tolerating PO He refuses to ambulate or to let the nurses change his sheets. He has not been out of bed in many days and is very deconditioned. He continues to decline various medications, for example, he refused to take all 80mg of his lipitor, but he said he would take 20mg. Review of Systems Review of Systems: All systems reviewed & are unremarkable except as noted in HPI & below seems to be more clear during our discussion. Physical Exam Physical Exam: CONSTITUTIONAL: WNWD, vitals as above, generally ill appearing and fatigued, no conversational dyspnea, speaking in a whisper, no distress, oxygen is off his face. Malodorous EYES: normal conjunctivae, no scleral icterus ENT: MMM, poor dentition. RESPIRATORY: clear to auscultation throughout. No overt respiratory distress. CARDIOVASCULAR: regular rate and rhythm, S1 and 2 heard without murmurs, gallops or rubs, no JVD, +RLE swelling with wound present. No LLE swelling GASTROINTESTINAL: soft, nontender, nondistended MUSCULOSKELETAL: head is normocephalic and atraumatic, moves all extremities with ease. No gross focal deficits. SKIN: warm and dry, RLE wound wrapped with dressing that is CDI with some erythema present that appears chronic. Multiple scabs on legs and skin with chronic-appearing changes. Swelling to RLE >LLE. NEUROLOGIC: No facial palsy, no dysarthria. Speaking in a whisper. CN 2-12 grossly intact, no sensory deficit, paranoid, unable to focus on questioning or one conversation. PSYCHIATRIC: alert cooperative and oriented Results & Data Vital Signs (Past 12 Hours) Vital Signs Temp Pulse Pulse Resp BP Pulse Ox 06/28/19 15:17 36.5 C 75 19 116/76 96 06/28/19 11:03 36.6 C 77 28 H 122/81 92 06/28/19 07:40 36.5 C 74 19 116/77 94 06/28/19 03:57 36.5 C 73 22 116/76 96 Laboratory Results Short CBC 06/28/19 Range/Units 06:00 WBC 12.25 H (4.8-10.8) K/uL Hgb 10.6 L (14.0-18.0) g/dL Hct 33.2 L (42-52) % Plt Count 186 (130-400) K/uL BMP 06/28/19 06:00 Sodium 142 Potassium 4.4 Chloride 112 H Carbon Dioxide 25 BUN 28 H Creatinine 1.01 Glucose 95 Calcium 8.0 L Medications Administered Current Inpatient Medications Albuterol (Duoneb) 3 ml NEB Q4R PRN PRN Reason: SOB/WHEEZING Stop: 07/15/19 14:31 Aspirin (Ecotrin Ectab) 81 mg PO QAM [facility] Stop: 07/16/19 08:59 Last Admin: 06/28/19 08:31 Dose: Not Given Documented by: Atorvastatin Calcium (Lipitor) 80 mg PO QAM [facility] Stop: 07/16/19 08:59 Last Admin: 06/28/19 08:31 Dose: 80 mg Documented by: Carvedilol (Coreg) 6.25 mg PO BID [facility] Stop: 07/26/19 20:59 Last Admin: 06/28/19 08:31 Dose: 6.25 mg Documented by: Dextrose (Dextrose 50%) 25 - 50 ml IV UD PRN; Protocol PRN Reason: Hypoglycemia Protocol Stop: 07/15/19 14:31 Last Admin: 06/17/19 16:39 Dose: 25 ml Documented by: Glucagon (Glucagen) 1 mg SQ UD PRN; Protocol PRN Reason: Hypoglycemia Protocol Stop: 07/15/19 14:31 Glucose (Glucose 40%) 15 - 30 gm PO UD PRN; Protocol PRN Reason: Hypoglycemia Protocol Stop: 07/15/19 14:31 Glucose (Dex4 Glucose) 4 - 8 tabs PO UD PRN; Protocol PRN Reason: Hypoglycemia Protocol Stop: 07/15/19 14:31 Last Admin: 06/17/19 11:32 Dose: 4 tabs Documented by: [facility]: 07/27/19 08:59 Last Admin: 06/28/19 08:31 Dose: 2.5 mg Documented by: Menthol (Nice) 1 valentine BUCCAL NOW PRN PRN Reason: Sore Throat Stop: 07/19/19 19:59 Miscellaneous (Carbohydrates For Hypoglycemia) 15 - 30 gm PO UD PRN PRN Reason: Hypoglycemia Treatment Stop: 07/15/19 14:31 Last Admin: 06/17/19 11:11 Dose: 15 gm Documented by: Morphine Sulfate (Morphine Sulfate) 2 mg IV Q4H PRN PRN Reason: Pain Stop: 07/08/19 15:49 Last Admin: 06/28/19 08:29 Dose: 2 mg Documented by: Prasugrel (Effient) 10 mg PO QAM [facility] Stop: 07/19/19 11:29 Last Admin: 06/28/19 08:30 Dose: 10 mg Documented by: Rivaroxaban (Xarelto) 15 mg PO QDD [facility] Stop: 07/27/19 08:59 Last Admin: 06/27/19 09:46 Dose: 15 mg Documented by: Sodium Chloride ([place] Nasal) 0 sprays NA PRN PRN PRN Reason: Congestion Stop: 07/23/19 07:36 Tramadol HCl (Ultram) 50 mg PO Q4H PRN PRN Reason: moderate to severe pain Stop: 07/17/19 14:55 Last Admin: 06/28/19 11:43 Dose: 50 mg Documented by:
--- NOTE | 2019-06-28 16:00 | Cardiology Progress Note ---
Date of Service June 28, 2019 Assessment & Plan (1) Complete heart block: He had some episodes of heart block yesterday. This was in the setting of coughing and activity. Perhaps this was vagally mediated. No similar episodes today. Maintaining good sinus rhythm. (2) Atrial fibrillation: He did have a sustained episode of atrial flutter yesterday. He was symptomatic with the episode. After a long discussion he agreed to try amiodarone but appears to have converted to sinus rhythm prior to administration. I think would be reasonable to try him on low-dose amiodarone at this time will order him oral medication and see if he takes it. Will continue his beta-polo and anticoagulation. (3) Mitral regurgitation: This appears severe on his echocardiogram. No notable murmur. (4) Acute coronary syndrome: Did have evidence of ischemia when he was in a tachycardia yesterday. He also had some symptoms of chest tightness. Unclear whether his jj scularization is complete given his noncompliance with medical therapy. However, at this time will simply continue his prasugrel in Xarelto. (5) Acute heart failure: He continues require supplemental oxygen. He continues to deny diuretics. However, he did have some success using a urinal today rather than a bedpan which may make him more amenable to use of diuretics. I think repeating an x- ray may also be helpful. Subjective This morning the patient claims to be feeling better. He did verbalize some concerns over people from [facility] coming to take him to a "very dark place. Review of Systems Review of Systems: Per HPI. Physical Exam Physical Exam: The patient is alert and oriented. Answer questions ap propriately. HEENT: Pupils are equal and reactive to light and accommodation. Extraocular movements are intact. The sclerae are anicteric. Neuro: Cranial nerves intact Lungs: Apices are clear. No expiratory wheezing. Some reduced breath sounds at the bases bilaterally. Cardiac: Heart demonstrates a regular rate and rhythm. Normal S1 and S2. No murmurs on examination. Pulses: The patient has palpable radial pulses bilaterally that are equal in intensity Results & Data Vital Signs (Past 12 Hours) Vital Signs Temp Pulse Resp BP Pulse Ox 06/28/19 15:17 36.5 C 75 19 116/76 96 06/28/19 11:03 36.6 C 77 28 H 122/81 92 06/28/19 07:40 36.5 C 74 19 116/77 94 Laboratory Results Abnormal Lab Results 06/28/19 06/28/19 06:00 06:00 WBC 12.25 H RBC 3.66 L Hgb 10.6 L Hct 33.2 L MCV 90.7 MCH 29.0 MCHC 31.9 L RDW Std Deviation 54.2 H RDW Coeff of Dante 16.6 H Plt Count 186 MPV 10.9 H Sodium 142 Potassium 4.4 Chloride 112 H Carbon Dioxide 25 Anion Gap 5.0 BUN 28 H Creatinine 1.01 Est Cr Clr Drug Dosing 68.7 Est GFR ( Amer) 88.8 Est GFR (Non-Af Amer) 76.6 BUN/Creatinine Ratio 27.3 H Glucose 95 Calcium 8.0 L PG Care Time/CCT Total # of Minutes Spent Total Time Spent with Patient: Total time spent is greater than 50% in coordination of care (as documented) at patient's floor/unit and/or counseling patient:
[2019-06-28] MEDS: RIVAROXABAN 15 MG TAB PO SCH (17:02)
[2019-06-29] MEDS: MoRPHine SULFATE 2 MG/ML CARP IV PRN (00:16)
[2019-06-29] MEDS: ASPIRIN 81 MG ECTAB PO SCH (08:34)
[2019-06-29] MEDS: CARVEDILOL 6.25 MG TAB PO SCH (08:48)
[2019-06-29] MEDS: LISINOPRIL 2.5 MG TAB PO SCH (08:49)
[2019-06-29] MEDS: ATORVASTATIN 40 MG TAB PO SCH (08:49)
[2019-06-29] MEDS: PRASugrel TAB 10 MG TAB PO SCH (08:49)
[2019-06-29] MEDS: TRAMADOL HCL 50 MG TABLET PO PRN ×3 (09:00→21:25)
--- NOTE | 2019-06-29 16:14 | Hospitalist Progress Note ---
Date of Service June 29, 2019 Assessment & Plan (1) Paranoid schizophrenia: Hallucinations. Unable to get a history secondary to mental health condition. Evaluated by psych who feels there is nothing further to do from a treatment standpoint, and he is able to make his own decisions. I do not agree that he has capacity because he cannot tell me what is going on with him or why he is hospitalized, even if I just told him why. Will re-engage with psychiatry to see if they can monitor him periodically. (2) Paroxysmal atrial fibrillation: Continue Coreg. Stays in sinus rhythm on telemetry review. Started on Xarelto. Cardio considering amiodarone. Cont to monitor on telemetry for this reason. (3) STEMI (ST elevation myocardial infarction): Inferiori STEMI on arrival s/p BMS placement. Ventricular fibrillation during cath procedure requiring defibrillation attempt and atrial fibrillation noted on monitor. Echo reveals EF 40-45% with acute MR which could be related to STEMI. Patient refuses Plavix/DAPT (schizophrenic paranoia contributing). Agrees to Prasugrel. Declines aspirin but takes it some days. Intermittently declines statin. Cont current medical management. (4) Acute heart failure: Complication s/p STEMI. Taking ASA(refusing), Prasugrel, Atorvastatin, Coreg, Lisinopril. Already with acute MR. High risk for cardiogenic shock or ventricular rupture but has been stable from a cardiac standpoint for several days with the exception of some intermittent afib/aflutter that doesn't last long. Volume overloaded on exam and has symptoms of dyspnea on exertion, but refuses Lasix or Bumex or other diuretic at this time. Refuses to get out of bed or ambulate. Appreciate Cardiology assistance with management. (5) Hypoxia: 2/2 acute heart failure. Cont oxygen supplementation. (6) Mitral regurgitation: Cont medical management for now. Likely related to recent STEMI. (7) Acute hypoxemic respiratory failure: 2/2 STEMI, required intubation on arrival to the ED and self-extubated within 24 hours. He was clinically improved and then became worse but is stable on 4L via nasal canula 2/2 acute heart failure exacerbation. (8) Cholecystitis, acute: Pt with multiple episodes of cholecystitis in the past and has refused surgery (schizophrenic paranoia thought to be contributing). US this admission reveals evidence of GB wall edema and no gallstones. GB wall thickening also could have been related to edematous state. This was associated with RUQ pain and nausea. He was treated medically with a course of Zosyn which was transitioned to Rocephin and Flagyl to avoid QTc prolonging agents. Was switched to augmentin but has now completed the course. No further abdominal pain or distension and he is tolerating oral food. Will repeat hepatic panel intermittently as he is a poor historian. (9) HTN (hypertension): At goal, continue current management. (10) Open wound of right lower extremity: Chronic, wrapped. Cont wound care daily. (11) Smoker: Strongly recommend quitting. (12) Lymphedema of right lower extremity: chronic (13) Noncompliance: Paranoid schizophrenia and homelessness likely contributing to this. Case management is engaging with office of aging to prepare for discharge. (14) DVT prophylaxis: Xarelto Full Dispo-worsened with complications post-STEMI. Continue hospitalization. Appreciate case management assistance is disposition. He refuses to get out of bed and has been there for at least 7 days. It is unclear if he will be strong enough to walk. Additionally, he has no capacity to ensure his own compliance with medications because he cannot communicate that he understands the disease process and he believes he has something else going on (eg: the phlegm in my throat is causing my shortness of breath). For these reasons, I believe he should go to SNF at discharge. Whether he can be accepted to one or would be willing to go is another story. I have been informed there are no family or friends in the picture who can advocate for him. The patient told me that he was living in executive housing somewhere by [facility], but that he chose to leave that apartment after they told him they needed to move him to another location. So he decided to go back to the streets in order to avoid a bad situation. ? When I asked why having a new home would be a bad situation, he couldn't explain it to me. But then he says that being homeless is not preferential. I will continue to work with Case Management on disposition options for him. Chelsea Mosley [facility] Subjective The patient has the same disposition today. Each day when I arrive he appears comfortable, and then when I ask him how it's going he rolls his eyes and starts telling me how noone agrees with him that he is sick and there are things in the universe that are trying to take him down or "knock him over." He frequently speaks about having an overall good day or bad day but doesn't really define it as a day per se. He more speaks about something I cannot understand that is going to be good vs bad. He has hallucinations nearly every time I see him about a black cloud that appears in his room. Today he appeared to be seeing a woman whom he was talking to. When I talk to him about his disease process, he cannot reiterate what I am saying to me and will consistently launch into some tirade about how he is sick and no one will "agree with him" even if we are not talking about treatment, just the disease itself. He does not have capacity in my opinion because of this. Although he can be specific about certain drugs and why he won't take them I have seen this change on a daily basis. He clings to certain things such as using Benadryl for "phlegm" in his throat causing him difficulty breathing. He continues to report generalized pain which is a new thing he has mentioned to me in the past few days. He was getting tramadol, but remembered we carry morphine and has been requesting this. When asked if he has chest pain, he would say no, but he was then told by a provider if he had chest pain he could get morphine. He denies chest pain or shortness of breath for me again today. He refuses to get out of bed saying "I might as well just ." He refuses to let the nurses clean him up or change his bedsheets even when they had urine on them at one point. He is eating and has 6 or 7 plastic cups that are filled with a pink fluid at his bedside table that are evidently [employer] instant breakfast. Review of Systems Review of Systems: Unobtainable due to mental health condition Physical Exam Physical Exam: CONSTITUTIONAL: WNWD, vitals as above, generally ill appearing and fatigued, no conversational dyspnea, speaking in a whisper, no distress, oxygen is on. Malodorous, disheveled. EYES: normal conjunctivae, no scleral icterus ENT: MMM, poor dentition. RESPIRATORY: clear to auscultation throughout. No overt respiratory distress. CARDIOVASCULAR: regular rate and rhythm, S1 and 2 heard without murmurs, gallops or rubs, no JVD, +RLE swelling with wound present. No LLE swelling GASTROINTESTINAL: soft, nontender, nondistended MUSCULOSKELETAL: head is normocephalic and atraumatic, moves all extremities with ease. No gross focal deficits. SKIN: warm and dry, RLE wound wrapped with dressing that is CDI with some erythema present that appears chronic. Multiple scabs on legs and skin with chronic-appearing changes. Swelling to RLE >LLE. NEUROLOGIC: No facial palsy, no dysarthria. Speaking in a whisper. CN 2-12 grossly intact, no sensory deficit, paranoid, unable to answer questions that are being asked; tends to go in a different direction with his answers. PSYCHIATRIC: alert cooperative and oriented Results & Data Vital Signs (Past 12 Hours) Vital Signs Temp Pulse Pulse Resp BP Pulse Ox 06/29/19 14:58 36.4 C L 75 22 127/81 94 06/29/19 12:01 36.4 C L 76 18 133/89 99 06/29/19 08:00 75 06/29/19 07:55 36.5 C 70 16 122/80 97 Medications Administered Current Inpatient Medications Albuterol (Duoneb) 3 ml NEB Q4R PRN PRN Reason: SOB/WHEEZING Stop: 07/15/19 14:31 Aspirin (Ecotrin Ectab) 81 mg PO QAM [facility] Stop: 07/16/19 08:59 Last Admin: 06/29/19 08:34 Dose: Not Given Documented by: Atorvastatin Calcium (Lipitor) 80 mg PO QAM [facility] Stop: 07/16/19 08:59 Last Admin: 06/29/19 08:49 Dose: Not Given Documented by: Carvedilol (Coreg) 6.25 mg PO BID [facility] Stop: 07/26/19 20:59 Last Admin: 06/29/19 08:48 Dose: 6.25 mg Documented by: Dextrose (Dextrose 50%) 25 - 50 ml IV UD PRN; Protocol PRN Reason: Hypoglycemia Protocol Stop: 07/15/19 14:31 Last Admin: 06/17/19 16:39 Dose: 25 ml Documented by: Glucagon (Glucagen) 1 mg SQ UD PRN; Protocol PRN Reason: Hypoglycemia Protocol Stop: 07/15/19 14:31 Glucose (Glucose 40%) 15 - 30 gm PO UD PRN; Protocol PRN Reason: Hypoglycemia Protocol Stop: 07/15/19 14:31 Glucose (Dex4 Glucose) 4 - 8 tabs PO UD PRN; Protocol PRN Reason: Hypoglycemia Protocol Stop: 07/15/19 14:31 Last Admin: 06/17/19 11:32 Dose: 4 tabs Documented by: Lisinopril (Zestril) 2.5 mg PO QAM [facility] Stop: 07/27/19 08:59 Last Admin: 06/29/19 08:49 Dose: 2.5 mg Documented by: Menthol (Nice) 1 valentine BUCCAL NOW PRN PRN Reason: Sore Throat Stop: 07/19/19 19:59 Miscellaneous (Carbohydrates For Hypoglycemia) 15 - 30 gm PO UD PRN PRN Reason: Hypoglycemia Treatment Stop: 07/15/19 14:31 Last Admin: 06/17/19 11:11 Dose: 15 gm Documented by: Morphine Sulfate (Morphine Sulfate) 2 mg IV Q4H PRN PRN Reason: Pain Stop: 07/08/19 15:49 Last Admin: 06/29/19 00:16 Dose: 2 mg Documented by: Prasugrel (Effient) 10 mg PO QAM [facility] Stop: 07/19/19 11:29 Last Admin: 06/29/19 08:49 Dose: 10 mg Documented by: Rivaroxaban (Xarelto) 15 mg PO QDD [facility] Stop: 07/27/19 08:59 Last Admin: 06/28/19 17:02 Dose: 15 mg Documented by: Sodium Chloride ([place] Nasal) 0 sprays NA PRN PRN PRN Reason: Congestion Stop: 07/23/19 07:36 Tramadol HCl (Ultram) 50 mg PO Q4H PRN PRN Reason: moderate to severe pain Stop: 07/17/19 14:55 Last Admin: 06/29/19 09:00 Dose: 50 mg Documented by:
[2019-06-29] MEDS: RIVAROXABAN 15 MG TAB PO SCH (17:19)
--- NOTE | 2019-06-29 17:20 | Cardiology Progress Note ---
Date of Service June 29, 2019 Assessment & Plan (1) Complete heart block: He had 1 episode this morning which appear to involve complete heart block. This was associated with some initial tachycardia followed by slowing of the sinus rate and a junctional escape rhythm. I believe this was likely the event to which she was referring during our conversation. I think he gets very anxious when it is time to perform activity and this is a vagally mediated response. Afterwards he has a sinus tachycardia which is also characteristic of a vagally mediated response. I do not believe this represents ischemic heart block. (2) Atrial fibrillation: No additional episodes. Initially I thought trying him on amiodarone would be necessary given the sustained episode he had 2 days ago. However, this is not an ideal long-term solution for him given the difficulties with monitoring. I think I will simply increase his carvedilol again and keep him on telemetry for now. (3) Mitral regurgitation: This appears severe on his echocardiogram. No notable murmur. (4) Acute coronary syndrome: He did seem to have some ischemia on his EKG and perhaps symptoms of ische christian when his heart rate was fast a couple of days ago. It is very possible that he has occluded the stents placed earlier in his admission. He does not have symptoms at rest. I do not think there is any role for an additional evaluation given his difficulty with compliance. (5) Acute heart failure: He continues require supplemental oxygen. His lung examination seems fairly benign. I think I will order chest x-ray for tomorrow and see if he will allow it to be done. Subjective Cherelle in the patient was upset about attempts to clean his bed, his perineum and requests to ambulate. Did report having 1 episode earlier this morning. He also had several accidents in bed which have required him to attempt cleaning himself. He was waiting to eat dinner until 5:00 p.m.. He did not report any abdominal pain today. His breathing is about the same as yesterday. He is afraid to try walking. Review of Systems Review of Systems: Per HPI Physical Exam Physical Exam: The patient is alert. He did have some paranoid ideations. He answered questions appropriately. HEENT: Pupils are equal and reactive to light and accommodation. Extraocular movements are intact. The sclerae are anicteric. Neuro: Cranial nerves intact Lungs: Clear to auscultation bilaterally. He has good air movement without use of accessory muscles. No rales wheezes or rhonchi. Cardiac: Heart demonstrates a regular rate and rhythm. Normal S1 and S2. No murmurs on examination. Pulses: The patient has palpable radial pulses bilaterally that are equal in intensity Results & Data Vital Signs (Past 12 Hours) Vital Signs Temp Pulse Pulse Resp BP Pulse Ox 06/29/19 14:58 36.4 C L 75 22 127/81 94 06/29/19 12:01 36.4 C L 76 18 133/89 99 06/29/19 08:00 75 06/29/19 07:55 36.5 C 70 16 122/80 97 PG Care Time/CCT Total # of Minutes Spent Total Time Spent with Patient: Total time spent is greater than 50% in coordination of care (as documented) at patient's floor/unit and/or counseling patient:
[2019-06-29] MEDS ORDERED: MoRPHine SULFATE 2 MG/ML CARP IV PRN (19:32)
[2019-06-29] MEDS ORDERED: NITROGLYCERIN SL 0.4 MG/TAB TAB SL PRN (19:32)
[2019-06-29] MEDS ORDERED: NITROGLYCERIN SL 0.4 MG/TAB TAB ONE (19:40)
[2019-06-29] MEDS: CARVEDILOL 12.5 MG TAB PO SCH (21:25)
[2019-06-30] MEDS: TRAMADOL HCL 50 MG TABLET PO PRN ×2 (06:21→20:11)
--- NOTE | 2019-06-30 06:58 | XRay Report ---
XR chest 1V portable CLINICAL HISTORY: 69 years-old Male presenting with CHF. TECHNIQUE: Portable upright AP view of the chest was obtained. COMPARISON: 06/23/2019. FINDINGS: Atherosclerosis of the aortic arch. Cardiac silhouette enlarged. Decreased bibasilar opacities though significant persistent central and upper lobe predominant opacities. Small bilateral pleural effusio ns. No pneumothorax. Osseous structures normal. Upper abdomen normal. IMPRESSION: 1. Decreased bibasilar infiltrates with persistent significant central and upper lobe predominant in filtrates. The distribution is less typical for edema. In addition to pulmonary edema, consider multi focal infection. 2. Cardiomegaly and small pleural effusions. Electronically signed by: Delta Gotti M.D. 06/30/2019 6:56 AM
[2019-06-30] MEDS: ATORVASTATIN 40 MG TAB PO SCH (07:31)
[2019-06-30] MEDS: ASPIRIN 81 MG ECTAB PO SCH (07:31)
[2019-06-30] MEDS: PRASugrel TAB 10 MG TAB PO SCH (09:12)
[2019-06-30] MEDS: CARVEDILOL 12.5 MG TAB PO SCH ×2 (09:12→20:11)
[2019-06-30] MEDS: LISINOPRIL 2.5 MG TAB PO SCH (09:12)
--- NOTE | 2019-06-30 13:42 | Hospitalist Progress Note ---
Date of Service June 30, 2019 Assessment & Plan (1) Paranoid schizophrenia: Chronic hallucinations. Discussed his past with psychiatry and discussed further the capacity to make decisions. Evidently he has a brother and other family in town. He will need to continue with psychiatric care. (2) Paroxysmal atrial fibrillation: Continue Coreg. Stays in sinus rhythm on telemetry review. Started on Xarelto which was held in setting of the large wound just found on his backside. Cardio considering amiodarone. Cont to monitor on telemetry for this reason. (3) STEMI (ST elevation myocardial infarction): Inferiori STEMI on arrival s/p BMS placement. Ventricular fibrillation during cath procedure requiring defibrillation attempt and atrial fibrillation noted on monitor. Echo reveals EF 40-45% with acute MR which could be related to STEMI. Patient refuses Plavix/DAPT (schizophrenic paranoia contributing). Agrees to Prasugrel. Declines aspirin but takes it some days. Intermittently declines statin. Cont current medical management. Of note, ASA/prasugrel should be continued with recent stent despite significant bruising with sacral wound. Appreciate further recs from cardiology regarding this. (4) Acute heart failure: Complication s/p STEMI and has acute MR. Volume overloaded on exam and has symptoms of dyspnea on exertion, but refuses Lasix or Bumex or other diuretic at this time. Refuses to get out of bed or ambulate. Appreciate Cardiology assistance with management. (5) Hypoxia: 2/2 acute heart failure. Cont oxygen supplementation. (6) Mitral regurgitation: Cont medical management for now. Likely related to recent STEMI. (7) Acute hypoxemic respiratory failure: 2/2 STEMI, required intubation on arrival to the ED and self-extubated within 24 hours. He was clinically improved and then became worse but is stable on 4L via nasal canula 2/2 acute heart failure exacerbation. (8) Cholecystitis, acute: Pt with multiple episodes of cholecystitis in the past and has refused surgery (schizophrenic paranoia thought to be contributing). US this admission reveals evidence of GB wall edema and no gallstones. GB wall thickening also could have been related to edematous state. This was associated with RUQ pain and nausea. He was treated medically with a course of Zosyn which was transitioned to Rocephin and Flagyl to avoid QTc prolonging agents. Was switched to augmentin but has now completed the course. No further abdominal pain or distension and he is tolerating oral food. Will repeat hepatic panel intermittently as he is a poor historian. (9) HTN (hypertension): At goal, continue current management. (10) Open wound of right lower extremity: Chronic, wrapped. Cont wound care daily. (11) Smoker: Strongly recommend quitting. (12) Lymphedema of right lower extremity: chronic (13) Noncompliance: Paranoid schizophrenia and homelessness likely contributing to this. Case management is engaging with office of aging to prepare for discharge. (14) DVT prophylaxis: Xarelto held-SCDs for now Full Dispo-Will need SNF care if able at discharge. Now has a need for wound care and will likely need PT and OT assistance with significant deconditioning. Chelsea Mosley DO [facility] Hospitalist Subjective Patient reports feeling well and having good day. He continues to speak in generalities of good time/good day versus bad time/bad day. He states the nurses were helping him and everyone was working as a team last night to change his bed sheets, and he appeared happy about that. He denied any pain at this time. He denied any chest pain or shortness of breath. However, he does not actually say he does not have those things he just changes the subject when asked most of the time. After seeing him I was later notified by nursing that he has a very severe purple wound that is large. This is not unexpected as he has not gotten out of bed for over a week and has refused to be turned. He is also on Xarelto. The wound does not open per nursing. Wound care was consulted. Review of Systems Review of Systems: All systems reviewed & are unremarkable except as noted in HPI & below Physical Exam Physical Exam: CONSTITUTIONAL: WNWD, vitals as above, generally appears fatigued and disheveled, no conversational dyspnea, speaking in a whisper, no di stress, oxygen is in place EYES: normal conjunctivae, no scleral icterus ENT: MMM, poor dentition. RESPIRATORY: clear to auscultation throughout. No overt respiratory distress. CARDIOVASCULAR: regular rate and rhythm, S1 and 2 heard without murmurs, gallops or rubs, no JVD, right leg swelling with wound present. No LLE swelling GASTROINTESTINAL: soft, nontender, nondistended MUSCULOSKELETAL: head is normocephalic and atraumatic, generally deconditioned and weak. SKIN: warm and dry, RLE wound wrapped with dressing that is CDI with some erythema present that appears chronic. Multiple scabs on legs and skin with chronic-appearing changes. Swelling to RLE >LLE. NEUROLOGIC: No facial palsy, no dysarthria. Speaking in a whisper. CN 2-12 grossly intact, no sensory deficit, paranoid, unable to answer questions that are being asked; tends to go in a different direction with his answers. PSYCHIATRIC: alert Results & Data Vital Signs (Past 12 Hours) Vital Signs Temp Pulse Resp BP BP Pulse Ox 06/30/19 11:35 36.4 C L 72 18 114/75 98 06/30/19 08:05 36.6 C 75 20 122/82 96 06/30/19 03:35 36.7 C 73 16 117/68 97 Laboratory Results Cardiac Enzymes 06/29/19 06/30/19 Range/Units 19:47 00:35 Troponin I 5.190 H* 4.640 H* (0-0.045) ng/ml Medications Administered Current Inpatient Medications Albuterol (Duoneb) 3 ml NEB Q4R PRN PRN Reason: SOB/WHEEZING Stop: 07/15/19 14:31 Aspirin (Ecotrin Ectab) 81 mg PO QAM [facility] Stop: 07/16/19 08:59 Last Admin: 06/30/19 07:31 Dose: Not Given Documented by: Atorvastatin Calcium (Lipitor) 80 mg PO QAM [facility] Stop: 07/16/19 08:59 Last Admin: 06/30/19 07:31 Dose: Not Given Documented by: Carvedilol (Coreg) 12.5 mg PO BID [facility] Stop: 07/29/19 20:59 Last Admin: 06/30/19 09:12 Dose: 12.5 mg Documented by: Dextrose (Dextrose 50%) 25 - 50 ml IV UD PRN; Protocol PRN Reason: Hypoglycemia Protocol Stop: 07/15/19 14:31 Last Admin: 06/17/19 16:39 Dose: 25 ml Documented by: Glucagon (Glucagen) 1 mg SQ UD PRN; Protocol PRN Reason: Hypoglycemia Protocol Stop: 07/15/19 14:31 Glucose (Glucose 40%) 15 - 30 gm PO UD PRN; Protocol PRN Reason: Hypoglycemia Protocol Stop: 07/15/19 14:31 Glucose (Dex4 Glucose) 4 - 8 tabs PO UD PRN; Protocol PRN Reason: Hypoglycemia Protocol Stop: 07/15/19 14:31 Last Admin: 06/17/19 11:32 Dose: 4 tabs Documented by: Lisinopril (Zestril) 2.5 mg PO QAM [facility] Stop: 07/27/19 08:59 Last Admin: 06/30/19 09:12 Dose: 2.5 mg Documented by: Menthol (Nice) 1 valentine BUCCAL NOW PRN PRN Reason: Sore Throat Stop: 07/19/19 19:59 Miscellaneous (Carbohydrates For Hypoglycemia) 15 - 30 gm PO UD PRN PRN Reason: Hypoglycemia Treatment Stop: 07/15/19 14:31 Last Admin: 06/17/19 11:11 Dose: 15 gm Documented by: Morphine Sulfate (Morphine Sulfate) 2 mg IV Q6H PRN PRN Reason: Chest Pain Stop: 07/08/19 15:49 Nitroglycerin (Nitrostat) 0.4 mg SL PRN PRN PRN Reason: Chest Pain Stop: 07/29/19 19:31 [facility] (Effient) [facility] [place] 07/19/19 11:29 Last Admin: 06/30/19 09:12 Dose: 10 mg Documented by: Rivaroxaban (Xarelto) 15 mg PO QDD [facility] Stop: 07/27/19 08:59 Last Admin: 06/29/19 17:19 Dose: 15 mg Documented by: Sodium Chloride (Woodruff Nasal) 0 sprays NA PRN PRN PRN Reason: Congestion Stop: 07/23/19 07:36 Tramadol HCl (Ultram) 50 mg PO Q4H PRN PRN Reason: moderate to severe pain Stop: 07/17/19 14:55 Last Admin: 06/30/19 06:21 Dose: 50 mg Documented by:
[2019-06-30] MEDS ORDERED: ACETAMINOPHEN 500 MG TAB PO PRN (14:11)
[2019-07-01 06:17] LABS: Hematocrit (blood only) 34.1 % (42-52); Mean Corpuscular Hemoglobin 29.3 pg (25-34); Mean Corpuscular Hgb Conc 32.3 g/dL (32-36); Mean Corpuscular Volume 90.9 fL (80-100); Mean Platelet Volume 9.9 fL (7.4-10.4); Platelet Count 248 K/uL (130-400); RDW Coefficient of Variation 16.4 % (11.5-14.5); RDW Standard Deviation 53.5 fL (36.4-46.3); Red Blood Count 3.75 M/uL (4.7-6.1); White Blood Count 9.82 K/uL (4.8-10.8)
[2019-07-01] MEDS: TRAMADOL HCL 50 MG TABLET PO PRN ×3 (06:25→19:48)
[2019-07-01 06:52] LABS: BUN Creatinine Ratio 25.8 (10-20); Calcium 8.1 mg/dl (8.5-10.1); Creatinine Clr Calc Pharmacy 78.8 ml/min; Est GFR (Non-African American) 88.9; Potassium 4.2 mmol/L (3.5-5.1)
[2019-07-01 06:54] LABS: Albumin Globulin Ratio 0.6 (0.9-2); Bilirubin,Total 1.3 mg/dl (0.2-1); Globulin 3.5 gm/dl (2.5-4.0); Total Protein 5.5 gm/dl (6.4-8.2)
[2019-07-01] MEDS: CARVEDILOL 12.5 MG TAB PO SCH ×2 (09:31→19:48)
[2019-07-01] MEDS: LISINOPRIL 2.5 MG TAB PO SCH (09:31)
[2019-07-01] MEDS: PRASugrel TAB 10 MG TAB PO SCH (09:32)
[2019-07-01] MEDS: ASPIRIN 81 MG ECTAB PO SCH (10:10)
[2019-07-01] MEDS: ATORVASTATIN 40 MG TAB PO SCH (10:10)
[2019-07-01] MEDS ORDERED: FUROSEMIDE 40 MG/4 ML VIAL IV STA (14:10)
[2019-07-01] MEDS ORDERED: FUROSEMIDE 40 MG in SYRINGE 0 ML IV ONE (14:20)
[2019-07-01] MEDS: ALBUT/IPRATROP 3MG/0.5MG NEB 3 ML VIAL NEB PRN (14:26)
--- NOTE | 2019-07-01 14:50 | XRay Report ---
XR chest 1V portable CLINICAL HISTORY: SOB dyspnea COMPARISON STUDY: 06/30/2019 FINDINGS: Unchanged bilateral parenchymal infiltrative change. Small right pleural effusion. Consolid ated and/or fusion type changes left lung base. All findings are stable. IMPRESSION: Unchanged exam. Diffuse bilateral parenchymal infiltrative change with bilateral pleural effusions. Atypical pulmonary edema is a secondary consideration. The above report was generated using voice recognition software. It may contain grammatical, syntax or spelling errors. Electronically signed by: Daniel Tyler M.D. 07/01/2019 2:49 PM
--- NOTE | 2019-07-01 15:54 | Psychiatric Progress Note ---
Date of Service July 01, 2019 Impression / Recommendations Impression 69-year-old male admitted medically on 06/15/19 following an PR. Initial psychiatric consultation was completed on 06/26/19 due to concern for noncompliance and reported history of schizophrenia. He is seen for follow-up visit on 07/01/19 due to worsening condition and ongoing selective refusal of medication recommendations. Pt seen today in combination with palliative care CHEMICAL MILLING PROCESSOR and attending physician. He continues recommendation for Lasix, with the reasoning that it will cause diarrhea and he does not desire to be on the bed sutton. While diarrhea is generally less of a concern than urinary frequency with Lasix, it is a potential side effect - though unclear if it is one the patient has experienced previously. Pt continues to verbalize hesitation with agreeing to the medication. When asked his awareness of the repercussions of his decision, he is able to verbalize that he may end up requiring intubation if his lungs are unable to function properly. While there is legitimate concern regarding patient's atypical decision, it does appear that the patient still has the capacity to make the decision to accept or refuse the addition of Lasix to his medication regimen. Would suggest ongoing explanation of his condition, and would recommend consideration of alternative diuretics which may be more acceptable to the patient. Again, patient's refusal of medication recommendations does not appear to be directly linked to a primary psychiatric condition. Pt continues to make statements suggesting a desire to live. It is certainly expected that patient's overall condition may worsen as a result of his medication refusal. Decision-making capacity can be determined by any medical provider if at such time it is felt the patient no longer has insight into the severity of his condition, he is not able to appreciate the repercussions of his decisions, is not able to verbalize a clear choice, and is not able to provide rational explanation of his decision-making process. As patient's verbalized desire is to remain a full-code, it is to be expected that he will require an alternate decision-maker should he reach a point where he lacks decision-making capacity. Progress notes from the primary team suggests patient may have some local family, would suggest attempts be made to make contact with family/supports or discuss with patient if he has a designated decision-maker. Dr. Kadie Davies was directly involved in review and discussion of the patient's case and participated in medical decision making regarding treatment recommendations. (1) Noncompliance: 06/26 - Documentation suggesting patient is refusing rather specific recommended interventions. He is not refusing treatment as a whole and denies SI as a motivation for refusal fo recommendations - At time of encounter, patient is able to explain recommendations he is refusing, able to share the risk of ongoing cardiac concerns and fluid overload should he refuse. He verbalizes awareness that this may have life-altering effects and is able to explain his rationale - which, while it may not be typical of a patient in his situation, does not seems to be directly related to delusional beliefs. At time of this evaluation, patient appears to have capacity to make decisions regarding refusal of specific medications - No present criteria at this time for inpatient psychiatric admission, as he is denying SI/HI, A/V hallucinations, and is not showing acute signs of psychosis 07/01 - Determination of capacity on this particular patient continues to be challenging. While he is not making decisions one would expect or encourage in his current situation, he is not rejecting treatment in its entirety and is able to voice that his primary reason for refusal of Lasix is the risk of diarrhea (a known, but lesser side effect in most individuals). It is not clear if this concern is based in the patient's own personal history, a side effect from secondary knowledge, or based in a delusional belief. As it can not be clearly stated that the patient lacks capacity at this time, it may be reasonable to offer the patient alternative diuretics which, while not first-line recommendation, may also serve to treat his fluid overload. Will defer recommendations to cardiology, but this particular patient may require clear reasoning for recommendations along with alternative therapies which could also be considered - allowing patient to decide what he finds acceptable. - Continue to reassess for capacity, as this is likely to continue to be a concern as patient's condition worsens. At this time, he does desire to remain a full code, and continues to verbalize desire to live - with this being said, it is recommended he be provided with multiple options from which to choose when discussing his treatment trajectory - While patient states, "taking Lasix would be committing suicide", he very clearly articulates a desire to remain alive. He is not demonstrating any acute signs of psychosis - Recommending ethics consultation for assistance with guiding further treatment decisions - as patient's verbalized desire to remain alive contradicts his refusal of recommended care. Insight would be helpful in order to ensure his decision-making rights are respected as long has he continues to have that capacity. (2) History of paranoid schizophrenia: 06/26 - Reported history of schizophrenia with longstanding refusal of psychiatric medications and outpatient treatment recommendations - Pt has longstanding history of paranoia and delusions - but these do not seem to be directly related at this time to his refusal of specific medical interventions - He does not appear to be at imminent risk of , disability, or serious injury as it directly relates to a primary psychiatric condition; therefore no indication for inpatient psychiatric commitment - Pt had previously been involved with the [facility], which may have collateral information or may be able to facilitate options regarding discharge planning 07/01 - Unlikely patient will be agreeable to medications to target his long history of paranoia and delusions - though was not the primary focus of today's encounter so was not discussed in detail Interval History Identifying Information 69-year-old male admitted medically on 06/15/19 with an acute PR. Pt underwent a cardiac catheterization, recovery is complicated by history of medical noncompliance and refusal of some recommended interventions and medications. Psychiatric consultation is requested based on patient's reported history of schizophrenia and concern for noncompliance. Initial consultation completed on 06/26/19, patient is seen in follow-up today. Chief Complaint "There is water on my nose, but they won't take it out. They think it's down here [pointing to chest]." Review of Systems Notes Constitutional: currently experiencing a bloody nose Cardiovascular: ongoing chest tightness Respiratory: ongoing shortness of breath Gastrointestinal: denied, but reports concern for diarrhea with certain medication options Neurological: denied Psychiatric: denies symptoms other than stated above Total of at least 10 systems reviewed, pertinent positives as above and in HPI. Subjective Subjective Patient was seen & assessed and interval progress reviewed with psychiatrist and psychiatric nurse liaison. This provider planned to stop by patient's room, but he was completing his palliative care interview. As patient was limited in his portion of conversation, this provider was invited to join. This provider noticed the patient holding a bloodied tissue to his nose, while holding his nasal canula into his mouth. Pt verbalize difficulty speaking due to his discomfort and shortness of breath. Pt stated, "There is water on my nose, but they won't take it out. They think it's down here." Pt had reported to our liaison a desire for Benadryl, as he believes his sinuses need to be "dried up." Pt was informed that there is significant concern that there is too much fluid in his lungs, and recommendation is for a medication to assist with that. Pt states, "I don't want to be on the bed sutton, that would be like ." Pt continues for several minutes to explain his desire to remain off medications which may cause diarrhea. Pt was informed that one of the most significant side effects of diuretics is urinary frequency - but he remains focused on the potential for diarrhea. Pt was asked his understanding of the ramifications of refusing Lasix, and stated, "Well, I may have to have the tube down my throat." It appears patient is understanding that his condition is far less than ideal, but for him his concern for experiencing diarrhea seems to outweigh the risk of possible intubation. Pt was reminded again that medications such as Lasix would take some of the work off his weaken heart. Pt was then offered to consider an alternative to Lasix. He seemed interested in hearing about these options. At this point in the conversation, cardiology had been informed of patient's request to speak with someone from their team. Pt has also stated, "give me 15 or 20 minutes to think about it." Pt did verbalize willingness to consider other options which may be presented by cardiology. He denied other acute needs at this time, but continued to verbalize being "scared for my life." Procedures Performed Operation Date: 06/15/19 12:15 Actual Procedures s Cath, Left with Cors and Vent - Jenaro Jansen MD s Cineradiography w/Routine Exam - Jenaro Jansen MD p Aspiration/PCI w/BMS for Stemi - Jenaro Jansen MD s Cardiopulmonary Resuscitation - Jenaro Jansen MD Physical Exam Psychiatric Orientation: alert, oriented to person, oriented to place and cooperative (superficially; participates in conversation but remains resistant to recs ) Apperance: appropriately dressed (in hospital gown) and + disheveled Eye Contact: good eye contact Motor Behavior: no abnormal motor movements (observed while laying upright in bed) Speech: + abnormal rate/rhythm/volume of speech (raspy voice, very soft tone, low volume) Affect: + anxious affect (appearing worried) Mood: + anxious mood ("I'm scared to " and "we can't make the wrong decision here") Thought Process: + perseveration (on medication side effects) and + concrete thought process Suicidal Thoughts: denies suicidal thoughts (does state "I'll be committing suicide today") and denies suicidal intent But states this comment is in the context of if he agrees to take Lasix; he denies a desire to end his life or harm himself. Verbalized multiple times a desire to remain alive. Homicidal Thoughts: denies homicidal thoughts Insight: + poor insight (but not so clearly indicating lack of capacity to reason through decisions) Judgement: + poor judgement (but not so clearly indiciating lack of capacity to make medical decisions) Vital Signs (Past 24 Hours) Last Vital Signs Temp 36.4 C L 07/01/19 11:47 Pulse 96 H 07/01/19 14:26 Resp 38 H 07/01/19 14:26 BP 129/84 07/01/19 11:47 Pulse Ox 94 07/01/19 14:26 Results & Data Laboratory Results Laboratory Results - last 24 hr 07/01/19 07/01/19 05:23 05:23 WBC 9.82 RBC 3.75 L Hgb 11.0 L Hct 34.1 L MCV 90.9 MCH 29.3 MCHC 32.3 RDW Std Deviation 53.5 H RDW Coeff of Dante 16.4 H Plt Count 248 MPV 9.9 Sodium 143 Potassium 4.2 Chloride 109 H Carbon Dioxide 26 Anion Gap 8.0 BUN 23 H Creatinine 0.88 Est Cr Clr Drug Dosing 78.8 Est GFR ( Amer) 103.0 Est GFR (Non-Af Amer) 88.9 BUN/Creatinine Ratio 25.8 H Glucose 89 Calcium 8.1 L Total Bilirubin 1.3 H AST 39 H ALT 29 Alkaline Phosphatase 153 H Total Protein 5.5 L Albumin 2.0 L Globulin 3.5 Albumin/Globulin Ratio 0.6 L Current Inpatient Medications Current Inpatient Medications: Current Inpatient Medications Acetaminophen (Tylenol) 1,000 mg PO Q8H PRN PRN Reason: Pain Stop: 07/30/19 14:10 Albuterol (Duoneb) 3 ml NEB Q4R PRN PRN Reason: SOB/WHEEZING Stop: 07/15/19 14:31 Last Admin: 07/01/19 14:26 Dose: 3 ml Documented by: Aspirin (Ecotrin Ectab) 81 mg PO [facility] Stop: 07/16/19 08:59 Last Admin: 07/01/19 10:10 Dose: Not Given Documented by: Atorvastatin Calcium (Lipitor) 80 mg PO [facility] Stop: 07/16/19 08:59 Last Admin: 07/01/19 10:10 Dose: Not Given Documented by: Carvedilol (Coreg) 12.5 mg PO BID [facility] Stop: 07/29/19 20:59 Last Admin: 07/01/19 09:31 Dose: 12.5 mg Documented by: Dextrose (Dextrose 50%) 25 - 50 ml IV UD PRN; Protocol PRN Reason: Hypoglycemia Protocol Stop: 07/15/19 14:31 Last Admin: 06/17/19 16:39 Dose: 25 ml Documented by: Glucagon (Glucagen) 1 mg SQ UD PRN; Protocol PRN Reason: Hypoglycemia Protocol Stop: 07/15/19 14:31 Glucose (Glucose 40%) 15 - 30 gm PO UD PRN; Protocol PRN Reason: Hypoglycemia Protocol Stop: 07/15/19 14:31 Glucose (Dex4 Glucose) 4 - 8 tabs PO UD PRN; Protocol PRN Reason: Hypoglycemia Protocol Stop: 07/15/19 14:31 Last Admin: 06/17/19 11:32 Dose: 4 tabs Documented by: Lisinopril (Zestril) 2.5 mg PO [facility] Stop: 07/27/19 08:59 Last Admin: 07/01/19 09:31 Dose: 2.5 mg Documented by: Menthol (Nice) 1 valentine BUCCAL NOW PRN PRN Reason: Sore Throat Stop: 07/19/19 19:59 Miscellaneous (Carbohydrates For Hypoglycemia) 15 - 30 gm PO UD PRN PRN Reason: Hypoglycemia Treatment Stop: 07/15/19 14:31 Last Admin: 06/17/19 11:11 Dose: 15 gm Documented by: Nitroglycerin (Nitrostat) 0.4 mg SL PRN PRN PRN Reason: Chest Pain Stop: 07/29/19 19:31 Prasugrel (Effient) 10 mg PO [facility] Stop: 07/19/19 11:29 Last Admin: 07/01/19 09:32 Dose: 10 mg Documented by: Rivaroxaban (Xarelto) 15 mg PO QDD [facility] Stop: 07/27/19 08:59 Last Admin: 06/29/19 17:19 Dose: 15 mg Documented by: Sodium Chloride ([place] Nasal) 0 sprays NA PRN PRN PRN Reason: Congestion Stop: 07/23/19 07:36 Tramadol HCl (Ultram) 50 mg PO Q4H PRN PRN Reason: Severe Pain Stop: 07/30/19 14:35 Last Admin: 07/01/19 10:48 Dose: 50 mg Documented by: CPT Code CPT Code 59588
--- NOTE | 2019-07-01 15:56 | Palliative Care Consultation ---
Date of Consultation July 01, 2019 Assessment & Plan (1) Goals of care, counseling/discussion: -69 year old male patient with PMH schizophrenia, hypertension, DVT, lymphedema in the right lower extremity, testicular cancer, tobacco use, pancreatitis, acute kidney injury, and cellulitis, presented to the hospital 16 days ago unresponsive and hypotensive. Patient is homeless and was in a parking garage when he went down. He underwent intubation. Had some acute EKG changes and was taken to the cardiac catheterization lab. He underwent left heart cath with successful PCI to the mid circ with drug-eluding stent. 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 Echocardiogram on 06/15 showed EF 40-45%, wall motion abnormalities, severe mitral regurg, and mildly reduced RV systolic function. 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 Today, patient was experiencing worsening SOB and hypoxia. CXR reveals "Diffuse bilateral parenchymal infiltrative change with gold ateral pleural effusions. Atypical pulmonary edema is a secondary consideration." He was ordered some IV Lasix, but patient refusing. Patient is also full code. Psychiatry department is very familiar with patient and consulted as well. Palliative care was consulted to discuss goals of care in the setting of a patient who is refusing treatment for his acute hypoxia 2/2 heart failure. -Met with patient in room 202. First, just patient and I, then along with Dr. Chatman and Carolina Glover PA-C with psych. -Patient is awake, alert and oriented x4. Patient is able to state exactly why he does not want to take his medications and the consequences of not taking them. He is able to articulate consequences of his actions, but also does lack some insight into complex medical decisions. At any rate, he IS able to make his own medical decisions. -Patient believes Lasix will give him diarrhea, as it has in the past. Patient gets extreme anxiety when he is having diarrhea and requires help from nurses to get on/off bedpan or be cleaned up. He is then worried that if he is having diarrhea, he wont make it to the bathroom. We talked at length and tried to negotiate with patient on different medications and treatment plans. Patient wants to speak with a resort host-- Dr. Ankush paged. -Patient does want to remain a FULL CODE at this time. -No role for palliative care team at this time, but we will follow peripherally. Please contact us with any further needs. (2) STEMI (ST elevation myocardial infarction): (3) Acute heart failure: (4) Acute hypoxemic respiratory failure: History of Present Illness Reason for Consultation: Goals of care Requesting Physician: Dr. Chatman Attending Physician: Uche Chatman MD History of Present Illness This 69 year old male patient with PMH schizophrenia, hypertension, DVT, lymphedema in the right lower extremity, testicular cancer, tobacco use, pancreatitis, acute kidney injury, and cellulitis, presented to the hospital 16 days ago unresponsive and hypotensive. Patient is homeless and was in a parking garage when he went down. He underwent intubation. Had some acute EKG changes and was taken to the cardiac catheterization lab. He underwent left heart cath with successful PCI to the mid circ with drug-eluding stent. 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 Echocardiogram on 06/15 showed EF 40-45%, wall motion abnormalities, severe mitral regurg, and mildly reduced RV systolic function. 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 Today, patient was experiencing worsening SOB and hypoxia. CXR reveals "Diffuse bilateral parenchymal infiltrative change with bilateral pleural effusions. Atypical pulmonary edema is a secondary consideration." He was ordered some IV Lasix, but patient refusing. Patient is also full code. Psychiatry department is very familiar with patient and con sulted as well. Palliative care was consulted to discuss goals of care in the setting of a patient who is refusing treatment for his acute hypoxia 2/2 heart failure. Thank you kindly for this consult. I will follow peripherally. Allergies Allergy/AdvReac Type Severity Reaction Status Date / Time horse dander Allergy Unknown HORSE HAIR Verified 03/02/17 23:27 tetanus toxoid, adsorbed Allergy Unknown Verified 03/02/17 23:27 Patient History Social History Preferred Language: Palauan Communication Ability: Effective Beliefs That Will Affect Care: Spiritual Current Living Situation: Homeless Feels Safe at Home: Hesitant to Answer Smoking Status: Never smoker Hx Alcohol Use: No Hx Substance Use: No Review of Systems Review of Systems: C/O hoarse voice with difficulty talking, nose bleed, SOB, and diarrhea. Denies chest pain, N/V. Physical Exam Constitutional: + ill appearing and + disheveled ENMT: Nose: + epistaxis Neck: normal visual inspection Respiratory: + labored breathing did not auscultate lungs due to patient refusal Cardiovascular: Rate/Rhythm: regular rate Extremities: + edema (chronic BLE) Gastrointestinal (Abdomen): did not assess abdomen due to patient refusal Skin: dry, flaking skin on legs Neurologic: moves all extremities and awake Psychiatric: Orientation: alert and oriented x 3 Insight: + limited insight Results & Data Vital Signs (Past 12 Hours) Vital Signs Temp Pulse Pulse Resp BP Pulse Ox 07/01/19 15:49 36.6 C 85 20 137/87 95 07/01/19 14:26 96 H 38 H 94 07/01/19 11:47 36.4 C L 77 28 H 129/84 94 07/01/19 11:25 96 07/01/19 07:36 36.9 C 72 21 127/82 96 07/01/19 04:14 36.9 C 72 20 129/77 96 Time Spent Midlevel 70 minutes with >50% of the time spent at bedside with patient, attending physician, PA-C, and nursing staff, discussing condition and GOC.
--- NOTE | 2019-07-01 16:59 | Hospitalist Progress Note ---
Date of Service July 01, 2019 Assessment & Plan (1) Paranoid schizophrenia: Chronic hallucinations. Currently not on meds Psychiatry following Determination of capacity is difficult to assess (2) Paroxysmal atrial fibrillation: Continue Coreg Xarelto held secondary to large back wound and intermittent epistaxis Initially thought to be started on amiodarone, however not started as patient is non complaint and is also difficult to monitor (3) STEMI (ST elevation myocardial infarction): Inferior STEMI S/P BMS placement. Ventricular fibrillation during cath procedure requiring defibrillation attempt ECHO: EF 40-45% with acute MR which could be related to STEMI. Patient refuses Plavix/DAPT (schizophrenic paranoia contributing) Continue Prasugrel Intermittently takes aspirin Non complaint with statin Also on coreg, Lisinopril Appreciate Cardiology help (4) Acute heart failure: Likely Ischemic Cardiomyopathy Acute systolic diastolic CHF Severe mitral regurgitation Volume overloaded on exam Refuses Lasix or Bumex or Torsemide other diuretics at this time Appreciate Cardiology Input Continue Lisinopril Continue Oxygen supplementation PRN Appreciate Palliative Care Input to address goals of Care (5) Hypoxia: Secondary to acute heart failure. Continue oxygen supplementation (6) Mitral regurgitation: Continue Current meds (7) Acute hypoxemic respiratory failure: S/P Extubation Secondary to acute CHF due to STEMI Refuses diuretics Continue Oxygen supplementation (8) Cholecystitis, acute: Had multiple episodes of cholecystitis in the past and has refused surgery (schizophrenic paranoia thought to be contributing) Ultrasound reveals evidence of GB wall edema and no gallstones. GB wall thickening also could have been related to edematous state Received Zosyn>>> transitioned to Rocephin and Flagyl>> transitioned to augmentin and completed the course. Refuses to have surgical evaluation during this admission as well (9) HTN (hypertension): continue current meds (10) Open wound of right lower extremity: Chronic, wrapped. 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 (12) Lymphedema of right lower extremity: chronic (13) Noncompliance: Paranoid schizophrenia and homelessness likely contributing Case management is engaging with office of aging (14) DVT prophylaxis: Xarelto held-SCDs for now Code Status Full Code Disposition To be determined Subjective Patient is seen and examined present Patient has significant shortness of breath, chest x-ray suggestive of volume overload He adamantly refuses lasix--states concern for diarrhea Discussed with psychiatry, palliative care and ICU team Continue supplemental oxygen as needed Patient also states being nauseous, tired, intermittent chest discomfort Offers no other complaints Refuses Oxymax, BiPAP as well Requests Morphine " I want to be knocked out" Patient refuses most of his meds and refused his sacral wound evaluation Review of Systems Review of Systems: All systems reviewed & are unremarkable except as noted in HPI & below Physical Exam Physical Exam: Physical Exam: Vitals signs as noted above General Appearance:Chronic ill appearing, disheveled, respiratory distress Head: normocephalic, Atraumatic Eyes: normal inspection, EOMI Neck: supple, Trachea midline Respiratory/Chest: B/L coarse breath sounds, + crackles, tachypnea Cardiovascular: S1, S2, No murmur, +Tachycardia Abdomen/GI:Soft, non tender, Bowel sounds present Extremities/Musculoskelatal:normal inspection, no edema, R leg in dressing Neurologic/Psych:AAOX3, grossly no focal neurological deficits, + paranoid delusions Skin: normal color, warm Results & Data Vital Signs (Past 12 Hours) Vital Signs Temp Pulse Pulse Resp BP Pulse Ox 07/01/19 15:49 36.6 C 85 20 137/87 95 07/01/19 14:26 96 H 38 H 94 07/01/19 11:47 36.4 C L 77 28 H 129/84 94 07/01/19 11:25 96 07/01/19 07:36 36.9 C 72 21 127/82 96 Laboratory Results Short CBC 07/01/19 Range/Units 05:23 WBC 9.82 (4.8-10.8) K/uL Hgb 11.0 L (14.0-18.0) g/dL Hct 34.1 L (42-52) % Plt Count 248 (130-400) K/uL BMP 07/01/19 05:23 Sodium 143 Potassium 4.2 Chloride 109 H Carbon Dioxide 26 BUN 23 H Creatinine 0.88 Glucose 89 Calcium 8.1 L Liver Function 07/01/19 Range/Units 05:23 Total Bilirubin 1.3 H (0.2-1) mg/dl AST 39 H (15-37) U/L ALT 29 (12-78) U/L Alkaline Phosphatase 153 H (45-117) U/L Albumin 2.0 L (3.4-5.0) gm/dl Diagnostic Findings CXR: Unchanged exam. Diffuse bilateral parenchymal infiltrative change with bilateral pleural effusions. Atypical pulmonary edema is a secondary consideration.
[2019-07-02] MEDS: TRAMADOL HCL 50 MG TABLET PO PRN ×5 (00:09→20:07)
[2019-07-02 06:05] LABS: Hematocrit (blood only) 33.2 % (42-52); Hemoglobin 10.7 g/dL (14.0-18.0); Mean Corpuscular Hemoglobin 29.4 pg (25-34); Mean Corpuscular Hgb Conc 32.2 g/dL (32-36); Mean Corpuscular Volume 91.2 fL (80-100); Mean Platelet Volume 9.5 fL (7.4-10.4); Platelet Count 237 K/uL (130-400); RDW Coefficient of Variation 16.2 % (11.5-14.5); RDW Standard Deviation 53.6 fL (36.4-46.3); Red Blood Count 3.64 M/uL (4.7-6.1); White Blood Count 9.34 K/uL (4.8-10.8)
[2019-07-02 06:43] LABS: BUN Creatinine Ratio 23.4 (10-20); Calcium 7.8 mg/dl (8.5-10.1); Creatinine Clr Calc Pharmacy 74.9 ml/min; Est GFR (African American) 100.7; Est GFR (Non-African American) 86.9; Potassium 4.4 mmol/L (3.5-5.1)
[2019-07-02] MEDS: CARVEDILOL 12.5 MG TAB PO SCH ×2 (08:11→20:04)
[2019-07-02] MEDS: ATORVASTATIN 40 MG TAB PO SCH (08:11)
[2019-07-02] MEDS: PRASugrel TAB 10 MG TAB PO SCH (08:12)
[2019-07-02] MEDS: ASPIRIN 81 MG ECTAB PO SCH (08:12)
[2019-07-02] MEDS: LISINOPRIL 2.5 MG TAB PO SCH (08:12)
--- NOTE | 2019-07-02 14:02 | Hospitalist Progress Note ---
Date of Service July 02, 2019 Assessment & Plan (1) Paranoid schizophrenia: Chronic hallucinations. Currently not on any meds Psychiatry following Determination of capacity is difficult to assess (2) Paroxysmal atrial fibrillation: Continue Coreg Xarelto held secondary to large back wound and intermittent epistaxis Initially thought to be started on amiodarone, however not started as patient is non complaint and is also difficult to monitor Currently in sinus (3) STEMI (ST elevation myocardial infarction): Inferior STEMI S/P BMS placement. Ventricular fibrillation during cath procedure requiring defibrillation attempt ECHO: EF 40-45% with acute MR which could be related to STEMI. Patient refuses Plavix/DAPT (schizophrenic paranoia could be contributing) Continue Prasugrel Intermittently takes aspirin Non complaint with statin Also on coreg, Lisinopril Appreciate Cardiology help (4) Acute heart failure: Likely Ischemic Cardiomyopathy Acute systolic and diastolic CHF Severe mitral regurgitation Volume overloaded on exam Refuses Lasix or Bumex or Torsemide or any other diuretics at this time Appreciate Cardiology Input Continue Lisinopril Continue Oxygen supplementation PRN Appreciate Palliative Care Input to address goals of Care (5) Hypoxia: Secondary to acute heart failure. Continue oxygen supplementation (6) Mitral regurgitation: Continue current meds (7) Acute hypoxemic respiratory failure: S/P Extubation Secondary to acute CHF due to STEMI Refuses diuretics Continue Oxygen supplementation Counseled in detail the importance of taking the medications (8) Cholecystitis, acute: Had multiple episodes of cholecystitis in the past and has refused surgery (schizophrenic paranoia thought to be contributing) Ultrasound reveals evidence of GB wall edema and no gallstones. GB wall thickening also could have been related to edematous state Received Zosyn>>> transitioned to Rocephin and Flagyl>> transitioned to Augmentin and completed the course. Refuses to have surgical evaluation during this admission as well (9) HTN (hypertension): continue current meds (10) Open wound of right lower extremity: Chronic, wrapped. 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 (12) Lymphedema of right lower extremity: chronic (13) Noncompliance: Paranoid schizophrenia and homelessness likely contributing Case management is engaging with office of aging (14) DVT prophylaxis: Xarelto held-SCDs for now Code Status Full Code Disposition To be determined Subjective Patient is seen and examined present Continues to be SOB and refuses diuretics Requires 5 liters of supplemental oxygen to maintain sats No new complaints Has intermittent chest discomfort, generalized weakness Very poor PO intake Review of Systems Review of Systems: All systems reviewed & are unremarkable except as noted in HPI & below Physical Exam Physical Exam: Physical Exam: Vitals signs as noted above General Appearance:Chronic ill appearing, disheveled, respiratory distress Head: normocephalic, Atraumatic Eyes: normal inspection, EOMI Neck: supple, Trachea midline Respiratory/Chest: B/L coarse breath sounds, + crackles Cardiovascular: S1, S2, No murmur Abdomen/GI:Soft, non tender, Bowel sounds present Extremities/Musculoskelatal:normal inspection, no edema, R leg in dressing Neurologic/Psych:AAOX3, grossly no focal neurological deficits, + paranoid delusions Skin: normal color, warm Results & Data Vital Signs (Past 12 Hours) Vital Signs Temp Pulse Pulse Pulse Resp BP Pulse Ox 07/02/19 10:48 36.7 C 75 25 H 127/80 90 07/02/19 07:05 36.5 C 81 18 148/98 H 95 07/02/19 04:00 36.7 C 66 16 121/87 95 Laboratory Results Short CBC 07/02/19 Range/Units 05:41 WBC 9.34 (4.8-10.8) K/uL Hgb 10.7 L (14.0-18.0) g/dL Hct 33.2 L (42-52) % Plt Count 237 (130-400) K/uL BMP 07/02/19 05:41 Sodium 144 Potassium 4.4 Chloride 111 H Carbon Dioxide 27 BUN 21 H Creatinine 0.91 Glucose 75 Calcium 7.8 L
--- NOTE | 2019-07-02 14:37 | Cardiology Progress Note ---
Date of Service July 02, 2019 Assessment & Plan (1) Complete heart block: No recent episodes. Rhythm has been very steady recently. Most of the episodes we saw appear to be vagally mediated. Initial heart block resolved with reperfusion. (2) Atrial fibrillation: No additional episodes. His anticoagulation was stopped over concerns about epistaxis and a PAC lesion. Will continue beta-polo. Amiodarone for acute poorly tolerated episodes. (3) Mitral regurgitation: This appears severe on his echocardiogram. No notable murmur. (4) Acute coronary syndrome: He did seem to have some ischemia on his EKG and perhaps symptoms of ischemia when his heart rate was fast a couple of days ago. It is very possible that he has occluded the stents placed earlier in his admission. He does not have symptoms at rest. I do not think there is any role for an additional evaluation given his difficulty with compliance. (5) Acute heart failure: While the changes on his x-ray are most likely related to pulmonary edema, the distribution is unusual. He also seemed to respond well to bronchodilators yesterday. I still think a dose of diuretic would be beneficial, but he is resistant. I think we need to be wary of other possible explanations for his abnormal chest x-ray and breathing difficulty. Subjective His breathing difficulty did appear to improve with use of bronchodilators yesterday. This morning the patient had some concerns about physical therapy yesterday. He apparently became very anxious, short of breath and made MS all over with attempts at physical therapy. I think he was referring to frequent urination and use of the bedpan. He has a lot of concerns about the need to use the bedpan and reportedly spent most of yesterday afternoon using the bedpan. He had more Lock sitting on the side of the bed when the nurses change sheets. He continues to report episodes of chest tightness and breathing difficulty. This seems to be most closely associated with activity or being upset. He continues to have a poor appetite. Review of Systems Review of Systems: Per HPI Physical Exam Physical Exam: The patient is alert and oriented. Mood and affect appeared normal. He answered all questions appropriately. HEENT: Pupils are equal and reactive to light and accommodation. Extraocular movements are intact. The sclerae are anicteric. Neuro: Cranial nerves intact Lungs: Diffusely reduced breath sounds in excursion. Occasional expiratory wheezing. Cardiac: Heart demonstrates a regular rate and rhythm. Normal S1 and S2. No murmurs on examination. Pulses: The patient has palpable radial pulses bilaterally that are equal in intensity Results & Data Vital Signs (Past 12 Hours) Vital Signs Temp Pulse Pulse Pulse Resp BP Pulse Ox 07/02/19 10:48 36.7 C 75 25 H 127/80 90 07/02/19 07:05 36.5 C 81 18 148/98 H 95 07/02/19 04:00 36.7 C 66 16 121/87 95 Laboratory Results Abnormal Lab Results 07/02/19 07/02/19 05:41 05:41 WBC 9.34 RBC 3.64 L Hgb 10.7 L Hct 33.2 L MCV 91.2 MCH 29.4 MCHC 32.2 RDW Std Deviation 53.6 H RDW Coeff of Dante 16.2 H Plt Count 237 MPV 9.5 Sodium 144 Potassium 4.4 Chloride 111 H Carbon Dioxide 27 Anion Gap 6.0 BUN 21 H Creatinine 0.91 Est Cr Clr Drug Dosing 74.9 Est GFR ( Amer) 100.7 Est GFR (Non-Af Amer) 86.9 BUN/Creatinine Ratio 23.4 H Glucose 75 Calcium 7.8 L Diagnostic Findings Chest x-ray demonstrated persistent pulmonary infiltrates. PG Care Time/CCT Total # of Minutes Spent Total Time Spent with Patient: Total time spent is greater than 50% in coordination of care (as documented) at patient's floor/unit and/or counseling patient:
--- NOTE | 2019-07-02 14:50 | Wound Consultation ---
Date of Consultation July 02, 2019 Assessment & Plan (1) Fungal dermatitis: This is a 69-year-old male with a complicated history and noncompliance due to his paranoid schizophrenia who presents with wound on his sacrum. Wound appears to be combination of pressure and fungal. No debridement was required. Wound be dressed with stoma powder and antifungal cream. Thank you for allowing me to participate in the care of this patient. Please not hesitate to call with any questions. Present on Admission?: Yes (2) Pressure ulcer of sacral region, stage 1: Present on Admission?: Yes History of Present Illness Attending Physician: Uche Chatman MD 69-year-old male with a history of paranoid schizophrenia, atrial fibrillation, acute heart failure, hypertension, hypothyroidism, chronic cholecystitis mitral regurgitation who was admitted with STEMI. Patient was found to have a wound on his buttocks. I attempted to see patient yesterday and he refused. Today he is willing to allow me to see him. Allergies Allergy/AdvReac Type Severity Reaction Status Date / Time horse dander Allergy Unknown HORSE HAIR Verified 03/02/17 23:27 tetanus toxoid, adsorbed Allergy Unknown Verified 03/02/17 23:27 Patient History Social History Preferred Language: Icelandic Communication Ability: Effective Beliefs That Will Affect Care: Spiritual Current Living Situation: Homeless Feels Safe at Home: Hesitant to Answer Smoking Status: Never smoker Hx Alcohol Use: No Hx Substance Use: No Review of Systems Review of Systems: All systems reviewed & are unremarkable except as noted in HPI & below Physical Exam Skin: Wound measuring as recorded in nursing documentation. Buttocks is erythematous and cracked. Appears fungal in nature. There is no drainage. Neurologic: awake; not confused Psychiatric: Orientation: oriented to person, oriented to place, oriented to time and cooperative Results & Data Vital Signs (Past 12 Hours) Vital Signs Temp Pulse Pulse Pulse Resp BP Pulse Ox 07/02/19 10:48 36.7 C 75 25 H 127/80 90 07/02/19 07:05 36.5 C 81 18 148/98 H 95 07/02/19 04:00 36.7 C 66 16 121/87 95
[2019-07-03] MEDS: TRAMADOL HCL 50 MG TABLET PO PRN ×3 (00:52→18:32)
[2019-07-03 05:47] LABS: Hematocrit (blood only) 33.7 % (42-52); Hemoglobin 10.7 g/dL (14.0-18.0)
[2019-07-03 06:23] LABS: Creatinine Clr Calc Pharmacy 75.7 ml/min; Est GFR (African American) 102.1; Est GFR (Non-African American) 88.1
[2019-07-03] MEDS: CARVEDILOL 12.5 MG TAB PO SCH ×2 (08:15→20:53)
[2019-07-03] MEDS: ATORVASTATIN 40 MG TAB PO SCH (08:15)
[2019-07-03] MEDS: ASPIRIN 81 MG ECTAB PO SCH (08:15)
[2019-07-03] MEDS: LISINOPRIL 5 MG TAB PO SCH (08:16)
[2019-07-03] MEDS: PRASugrel TAB 10 MG TAB PO SCH (08:16)
--- NOTE | 2019-07-03 12:48 | ENT Consultation ---
Date of Consultation July 03, 2019 Assessment & Plan (1) Epistaxis: Please contact me if there is any further bleeding. At the present time there is no active bleeding and the patient is refusing any intervention at this time. History of Present Illness Reason for Consultation: Nosebleeds Attending Physician: Uche Chatman MD History of Present Illness 69-year-old with intermittent episodes of epistaxis status post acute circumflex myocardial infarction status post stent, refusing Xarelto, extubated after previous intubation Allergies Allergy/AdvReac Type Severity Reaction Status Date / Time horse dander Allergy Unknown HORSE HAIR Verified 03/02/17 23:27 tetanus toxoid, adsorbed Allergy Unknown Verified 03/02/17 23:27 Patient History Social History Preferred Language: [place]ib[place]ian Communication Ability: Effective Beliefs That Will Affect Care: Spiritual Current Living Situation: Homeless Feels Safe at Home: Hesitant to Answer Smoking Status: Never smoker Hx Alcohol Use: No Hx Substance Use: No Physical Exam Constitutional: WD/WN, vitals as above Eyes: PERRL, conjunctivae normal, anicteric sclerae ENMT: Nose: + nasal mucous membrane abnormality (Blood clot in left nares with no active bleeding and ulceration of right se) and + septum abnormality (Endoscopy showed ulceration of right septum and blood clots preventing entr) Neck: trachea midline, no thyromegaly Respiratory: normal respiratory effort, lungs clear to auscultation Results & Data Vital Signs (Past 12 Hours) Vital Signs Temp Pulse Pulse Resp BP Pulse Ox 07/03/19 12:12 36.5 C 74 23 109/62 92 07/03/19 07:05 37.2 C 66 16 125/81 93 07/03/19 04:38 36.4 C L 72 20 122/76 95
--- NOTE | 2019-07-03 17:25 | Hospitalist Progress Note ---
Date of Service July 03, 2019 Assessment & Plan (1) Paranoid schizophrenia: Chronic ongoing hallucinations. Currently not on any meds Psychiatry following Determination of capacity is difficult to assess Epistaxis: Intermittent In setting of Aspirin/Prasugrel use for recent cardiac stent Patient refused any intervention by ENT surgeon Appreciate otolaryngology help Monitor H&H Xarelto held (2) Paroxysmal atrial fibrillation: Continue Coreg Xarelto held secondary to large back wound and intermittent epistaxis Initially thought to be started on amiodarone, however not started as patient is non complaint and is also difficult to monitor Currently in sinus (3) STEMI (ST elevation myocardial infarction): Inferior STEMI S/P BMS placement. Ventricular fibrillation during cath procedure requiring defibrillation attempt ECHO: EF 40-45% with acute MR which could be related to STEMI. Patient refuses Plavix/DAPT (schizophrenic paranoia could be contributing) Continue Prasugrel Intermittently takes aspirin Non complaint with statin Also on coreg, Lisinopril Appreciate Cardiology help (4) Acute heart failure: Likely Ischemic Cardiomyopathy Acute systolic and diastolic CHF Severe mitral regurgitation Volume overloaded on exam Refuses Lasix or Bumex or Torsemide or any other diuretics at this time Appreciate Cardiology Input Continue Lisinopril Continue Oxygen supplementation PRN Appreciate Palliative Care Input to address goals of Care (5) Hypoxia: Secondary to acute heart failure. Continue oxygen supplementation (6) Mitral regurgitation: Continue current meds (7) Acute hypoxemic respiratory failure: S/P Extubation Secondary to acute CHF due to STEMI Refuses diuretics Continue Oxygen supplementation Counseled in detail the importance of taking the medications (8) Cholecystitis, acute: Had multiple episodes of cholecystitis in the past and has refused surgery (schizophrenic paranoia thought to be contributing) Ultrasound reveals evidence of GB wall edema and no gallstones. GB wall thickening also could have been related to edematous state Received Zosyn>>> transitioned to Rocephin and Flagyl>> transitioned to Augmentin and completed the course. Refuses to have surgical evaluation during this admission as well (9) HTN (hypertension): continue current meds (10) Open wound of right lower extremity: Chronic, wrapped. 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 (12) Lymphedema of right lower extremity: chronic (13) Noncompliance: Paranoid schizophrenia and homelessness likely contributing Case management is engaging with office of aging (14) DVT prophylaxis: Xarelto held-SCDs for now Code Status Full Code Disposition To be determined Subjective Patient is seen and examined present Has ongoing chronic hallucinations Had transient epistaxis this morning Refused any intervention by ENT today Chest pain, SOB slightly better today as per patient No other complaints Review of Systems Review of Systems: All systems reviewed & are unremarkable except as noted in HPI & below Physical Exam Physical Exam: Physical Exam: Vitals signs as noted above General Appearance:Chronic ill appearing, disheveled, respiratory distress Head: normocephalic, Atraumatic Eyes: normal inspection, EOMI Neck: supple, Trachea midline Respiratory/Chest: B/L coarse breath sounds, + Mild crackles Cardiovascular: S1, S2, No murmur Abdomen/GI:Soft, non tender, Bowel sounds present Extremities/Musculoskelatal:normal inspection, no edema, R leg in dressing Neurologic/Psych:AAOX3, grossly no focal neurological deficits, + paranoid delusions Skin: normal color, warm Results & Data Vital Signs (Past 12 Hours) Vital Signs Temp Pulse Pulse Resp BP BP Pulse Ox 07/03/19 16:05 36.5 C 82 21 145/92 H 96 07/03/19 12:12 36.5 C 74 23 109/62 92 07/03/19 07:05 37.2 C 66 16 125/81 93 Laboratory Results Short CBC 07/03/19 Range/Units 05:19 Hgb 10.7 L (14.0-18.0) g/dL Hct 33.7 L (42-52) % BMP 07/03/19 05:19 Creatinine 0.90
[2019-07-03] MEDS ORDERED: OXYCODONE HCL IR 5 MG TAB (IMMEDIATE RELEASE) PO STA (21:04)
--- NOTE | 2019-07-03 21:24 | XRay Report ---
SINGLE VIEW CHEST CLINICAL HISTORY: Atypical chest pain. FINDINGS: An AP, portable, upright chest radiograph is compared to study dated 07/01/2019 and correlat ed with chest CT dated 10/28/2016. The examination is degraded by portable technique and patient rotat ion. The heart is enlarged and there is atherosclerotic calcification of the thoracic aorta. There i s pulmonary vascular congestion. Emphysema and chronic interstitial thickening are similar to previou s. Multifocal bilateral airspace consolidation is unchanged from 07/01/2019. Small pleural effusions a re noted. No pneumothorax is seen. The bony thorax is grossly intact. IMPRESSION: 1. Cardiomegaly and emphysema with evidence of congestive failure. 2. Multifocal bilateral airspace consolidation is unchanged from 07/01/2019. Top differential consider ations include pulmonary edema and/or multifocal pneumonia. Clinical correlation will be required. 3. Layering pleural effusions. Electronically signed by: Mulugeta Mccabe M.D. 07/03/2019 9:22 PM
[2019-07-03 21:35] LABS: Basophils # (auto) 0.01 K/uL (0-0.2); Basophils % (auto) 0.1 %; Eosinophils # (auto) 0.08 K/uL (0-0.5); Hemoglobin 11.6 g/dL (14.0-18.0); Immature Granulocytes # (auto) 0.01 K/uL (0.00-0.02); Immature Granulocytes % (auto) 0.1 %; Lymphocytes # (auto) 0.44 K/uL (1.2-3.4); Lymphocytes % (auto) 5.3 %; Mean Corpuscular Hemoglobin 29.4 pg (25-34); Mean Corpuscular Hgb Conc 32.2 g/dL (32-36); Mean Corpuscular Volume 91.4 fL (80-100); Mean Platelet Volume 9.7 fL (7.4-10.4); Monocytes # (auto) 0.52 K/uL (0.11-0.59); Monocytes % (auto) 6.3 %; Neutrophils # (auto) 7.23 K/uL (1.4-6.5); Neutrophils % (auto) 87.2 %; Platelet Count 263 K/uL (130-400); RDW Coefficient of Variation 16.1 % (11.5-14.5); RDW Standard Deviation 53.2 fL (36.4-46.3); Red Blood Count 3.94 M/uL (4.7-6.1); White Blood Count 8.29 K/uL (4.8-10.8)
[2019-07-03] MEDS ORDERED: FUROSEMIDE 40 MG in SYRINGE 0 ML IV ONE (21:43)
[2019-07-03 21:47] LABS: Partial Thromboplastin Ratio 1.1; Partial Thromboplastin Time 31.1 Seconds (21.0-31.0)
[2019-07-03 21:52] LABS: Albumin Level 2.2 gm/dl (3.4-5.0); BUN Creatinine Ratio 23.7 (10-20); Creatinine Clr Calc Pharmacy 75.7 ml/min; Est GFR (African American) 100.7; Est GFR (Non-African American) 86.9; Magnesium 2.2 mg/dl (1.8-2.4); Potassium 4.3 mmol/L (3.5-5.1)
[2019-07-03 22:11] LABS: Albumin Globulin Ratio 0.6 (0.9-2); Bilirubin,Total 1.3 mg/dl (0.2-1); Globulin 3.7 gm/dl (2.5-4.0); Total Protein 5.9 gm/dl (6.4-8.2); Troponin I 2.24 ng/ml (0-0.045)
--- NOTE | 2019-07-03 23:38 | Hospitalist Progress Note ---
Date of Service July 03, 2019 Assessment & Plan (1) Chest pain: With S OB Persistent pulmonary congestion Diuretic noncompliance Patient continues to refuse recommended diuretic medication due to paranoia about side effects. Topical nitro if patient agreeable. Transferred back to PCU for closer monitoring. Will relay to AM provider. Subjective Made aware by RN of chest pain, S OB complaints. Usual dry cough symptoms. Physical Exam Physical Exam: GENERAL: uncomfortable, no respiratory distress, unkempt, anxious SKIN: Pallor, warm HEENT: Pale palpebral conjunctivae, no ptosis, dry buccal mucosa NECK : Supple, no tenderness CHEST : Bilateral crackles, occasional wheeze, no tenderness HEART : RRR, systolic murmur ABDOMEN: Soft, nontender EXTREMITIES : Minimal LE swelling, no LE tenderness, no other conspicuous deformities noted NEUROLOGIC : Coherent, no facial asymmetry, no other gross focality Results & Data Vital Signs (Past 12 Hours) Vital Signs Temp Pulse Resp BP BP Pulse Ox 07/03/19 16:05 36.5 C 82 21 145/92 H 96 07/03/19 12:12 36.5 C 74 23 109/62 92 Laboratory Results Laboratory Results WBC 7.33 K/uL (4.8-10.8) 07/04/19 06:52 RBC 3.68 M/uL (4.7-6.1) L 07/04/19 06:52 Hgb 10.6 g/dL (14.0-18.0) L 07/04/19 06:52 POC Hgb 8.8 g/dl (14.0-18.0) L 06/15/19 11:53 Hct 34.2 % (42-52) L 07/04/19 06:52 POC Hct 26 % (42-52) L 06/15/19 11:53 MCV 92.9 fL (80-100) 07/04/19 06:52 MCH 28.8 pg (25-34) 07/04/19 06:52 MCHC 31.0 g/dL (32-36) L 07/04/19 06:52 RDW Std Deviation 54.8 fL (36.4-46.3) H 07/04/19 06:52 RDW Coeff of Dante 16.2 % (11.5-14.5) H 07/04/19 06:52 Plt Count 236 K/uL (130-400) 07/04/19 06:52 MPV 9.5 fL (7.4-10.4) 07/04/19 06:52 Immature Gran % (Auto) 0.1 % 07/04/19 06:52 Neut % (Auto) 83.4 % 07/04/19 06:52 Lymph % (Auto) 8.3 % 07/04/19 06:52 [place] % (Auto) 6.7 % 07/04/19 06:52 Eos % (Auto) 1.4 % 07/04/19 06:52 Baso % (Auto) 0.1 % 07/04/19 06:52 Immature Gran # (Auto) 0.01 K/uL (0.00-0.02) 07/04/19 06:52 Neut # (Auto) 6.11 K/uL (1.4-6.5) 07/04/19 06:52 Lymph # (Auto) 0.61 K/uL (1.2-3.4) L 07/04/19 06:52 [place] # (Auto) 0.49 K/uL (0.11-0.59) 07/04/19 06:52 Eos # (Auto) 0.10 K/uL (0-0.5) 07/04/19 06:52 Baso # (Auto) 0.01 K/uL (0-0.2) 07/04/19 06:52 Absolute Nucleated RBC 0.02 K/uL (0-0) H 06/24/19 07:00 Nucleated RBC % (auto) 0.2 % 06/24/19 07:00 PT 10.5 Seconds (9.0-12.0) 06/16/19 04:21 INR 1.0 (0.9-1.1) 06/16/19 04:21 APTT 31.1 Seconds (21.0-31.0) H 07/03/19 21:27 PTT Ratio 1.1 07/03/19 21:27 Activ Coag Time Kaolin 186 SECONDS (94-140) H 06/15/19 13:08 Specimen Type Arterial 06/15/19 11:43 POC pH 7.35 (7.35-7.45) 06/15/19 11:43 POC pCO2 29 mmHg (35-46) L 06/15/19 11:43 POC pO2 380 mmHg (80-95) H 06/15/19 11:43 POC HCO3 16 izabella/L (19-24) L 06/15/19 11:43 POC Total CO2 17 mEq/l (24-31) L 06/15/19 11:43 POC Base Excess -10.0 izabella/L (-9-1.8) L 06/15/19 11:43 POC ABG O2 Sat 100.0 % (90-95) H 06/15/19 11:43 POC Sodium 140 mEq/L (135-144) 06/15/19 11:53 Sodium 142 mmol/L (136-145) 07/03/19 21:27 POC Potassium 3.1 mEq/L (3.3-5.0) L 06/15/19 11:53 Potassium 4.3 mmol/L (3.5-5.1) 07/03/19 21:27 POC Chloride 110 mEq/L (101-112) 06/15/19 11:53 Chloride 109 mmol/L (98-107) H 07/03/19 21:27 Carbon Dioxide 26 mmol/L (21-32) 07/03/19 21:27 POC Total CO2 15 mEq/l (24-31) L 06/15/19 11:53 Anion Gap 7.0 (3-11) 07/03/19 21: POC Anion Gap 18.0 mmol/L (16-25) 06/15/19 11:53 POC BUN 20 mg/dl (7-18) H 06/15/19 11:53 BUN 22 mg/dl (7-18) H 07/03/19 21:27 Creatinine 0.91 mg/dl (0.6-1.4) 07/03/19 21:27 POC Creatinine 1.2 mg/dl (0.6-1.3) 06/15/19 11:53 Est Cr Clr Drug Dosing 75.7 ml/min 07/03/19 21:27 Est GFR ( Amer) 100.7 07/03/19 21:27 Est GFR (Non-Af Amer) 86.9 07/03/19 21:27 BUN/Creatinine Ratio 23.7 (10-20) H 07/03/19 21:27 Glucose 102 mg/dl (70-99) H 07/03/19 21:27 POC Glucose 84 (70-99) 07/02/19 20:31 POC Glucose (other) 271 mg/dl (70-99) H 06/15/19 11:53 Estimat Average Glucose 117 mg/dl 06/17/19 04:00 Hemoglobin A1c 5.7 % (4.5-5.6) H 06/17/19 04:00 POC Lactic Acid Arter 5.05 mmol/L (0.36-1.25) H 06/15/19 11:49 Lactate 3.9 mmol/L (0.4-2.0) H* 06/16/19 04:21 Calcium 8.0 mg/dl (8.5-10.1) L 07/03/19 21:27 POC Ioniz Calcium Tank 1.03 mmol/l (1.12-1.32) L 06/15/19 11:53 Ionized Calcium 1.16 mmol/L (1.12-1.32) 06/15/19 15:10 Magnesium 2.2 mg/dl (1.8-2.4) 07/03/19 21:27 Total Bilirubin 1.3 mg/dl (0.2-1) H 07/03/19 21:27 Direct Bilirubin 0.3 mg/dl (0-0.2) H 06/27/19 05:42 AST 27 U/L (15-37) 07/03/19 21:27 ALT 27 U/L (12-78) 07/03/19 21:27 Alkaline Phosphatase 137 U/L (45-117) H 07/03/19 21:27 Total Creatine Kinase 92 U/L (39-308) 06/15/19 11:45 Troponin I 2.240 ng/ml (0-0.045) H* 07/03/19 21:27 Total Protein 5.9 gm/dl (6.4-8.2) L 07/03/19 21:27 Albumin 2.2 gm/dl (3.4-5.0) L 07/03/19 21:27 Globulin 3.7 gm/dl (2.5-4.0) 07/03/19 21:27 Albumin/Globulin Ratio 0.6 (0.9-2) L 07/03/19 21:27 Lipase 47 U/L (73-393) L 07/03/19 21:27 TSH 35.800 uIu/ml (0.300-4.500) H 06/15/19 11:45 Free T4 1.08 ng/dl (0.8-1.6) 06/15/19 11:45 Urine Color Yellow 06/15/19 12:30 Urine Appearance Clear (Clear) 06/15/19 12:30 Urine pH 7.5 (4.5-7.5) 06/15/19 12:30 Ur Specific [place] 1.011 (1.000-1.030) 06/15/19 12:30 Urine Protein 3+ (Negative) H 06/15/19 12:30 Urine Glucose (UA) 1+ (Negative) H 06/15/19 12:30 Urine Ketones Negative (Negative) 06/15/19 12:30 Urine Blood 1+ (Negative) H 06/15/19 12:30 Urine Nitrite Negative (Negative) 06/15/19 12:30 Urine Bilirubin Negative (Negative) 06/15/19 12:30 Urine Urobilinogen Negative (Negative) 06/15/19 12:30 Ur Leukocyte Esterase Negative (Negative) 06/15/19 12:30 Urine WBC (Auto) 1-5 /hpf (0-5) 06/15/19 12:30 Urine RBC (Auto) 0-4 /hpf (0-4) 06/15/19 12:30 U Hyaline Cast (Auto) 0 /lpf (0-5) 06/15/19 12:30 U Epithel Cells (Auto) >30 /lpf (0-5) H 06/15/19 12:30 Urine Bacteria (Auto) Negative (Negative) 06/15/19 12:30 Ur Renal Epithelial Cell Not Reportable 06/15/19 12:30 Nasal Screen MRSA (PCR) Negative (Negative) 06/15/19 16:00 Salicylates 4.7 mg/dl (2.8-20) 06/15/19 11:45 Urine Opiates Screen Neg (Neg) 06/15/19 12:30 Ur Methadone, Qual Neg (Neg) 06/15/19 12:30 Acetaminophen < 2 ug/ml (10-30) L 06/15/19 11:45 Urine Barbiturates Neg (Neg) 06/15/19 12:30 Ur Phencyclidine (PCP) Neg (Neg) 06/15/19 12:30 U Amphetamin/Meth Scrn Neg (Neg) 06/15/19 12:30 MDMA (Ecstasy) Screen Neg (Neg) 06/15/19 12:30 U OH-Alprazolam Confrm NEGATIVE NG/ML (CUTOFF=25) 06/15/19 12:30 U Benzodiazepines Scrn Pos (Neg) H 06/15/19 12:30 7-Amino Clonazepam NEGATIVE NG/ML (CUTOFF=25) 06/15/19 12:30 Ur Nordiazepam Confirm NEGATIVE NG/ML (CUTOFF=50) 06/15/19 12:30 U OH-ethylflurazepam NEGATIVE NG/ML (CUTOFF=50) 06/15/19 12:30 U Lorazepam Cnf GC/MS NEGATIVE NG/ML (CUTOFF=50) 06/15/19 12:30 U Oxazepam Confm GC/MS NEGATIVE NG/ML (CUTOFF=50) 06/15/19 12:30 Ur Temazepam Confirm NEGATIVE NG/ML (CUTOFF=50) 06/15/19 12:30 U OH-Triazolam Confirm NEGATIVE NG/ML (CUTOFF=50) 06/15/19 12:30 U OH-Midazolam Confirm 585 NG/ML (CUTOFF=50) A 06/15/19 12:30 Ur Cocaine Metabolite Neg (Neg) 06/15/19 12:30 U Marijuana (THC) Screen Neg (Neg) 06/15/19 12:30 Ethyl Alcohol mg/dL < 3.0 mg/dl (0-3) 06/15/19 12:01 Chest x-ray showed 1. Cardiomegaly and emphysema with evidence of congestive failure. 2. Multifocal bilateral airspace consolidation is unchanged from 07/01/2019. Top differential considerations include pulmonary edema and/or multifocal pneumonia. Clinical correlation will be required. 3. Layering pleural effusions. EKG as per my interpretation : Rate 85, NSR, ST depression lateral leads, low voltage
[2019-07-04] MEDS ORDERED: NITROGLYCERIN 2% OINTMENT 30GM TUBE EXT ONE (00:02)
[2019-07-04] MEDS ORDERED: METOPROLOL TARTRATE 1 MG/ML VIAL IV STA (00:58)
[2019-07-04] MEDS: TRAMADOL HCL 50 MG TABLET PO PRN ×5 (01:09→22:10)
[2019-07-04] MEDS ORDERED: CARVEDILOL 12.5 MG TAB PO SCH (01:15)
[2019-07-04 07:06] LABS: Basophils # (auto) 0.01 K/uL (0-0.2); Basophils % (auto) 0.1 %; Eosinophils % (auto) 1.4 %; Hematocrit (blood only) 34.2 % (42-52); Hemoglobin 10.6 g/dL (14.0-18.0); Immature Granulocytes # (auto) 0.01 K/uL (0.00-0.02); Immature Granulocytes % (auto) 0.1 %; Lymphocytes # (auto) 0.61 K/uL (1.2-3.4); Lymphocytes % (auto) 8.3 %; Mean Corpuscular Hemoglobin 28.8 pg (25-34); Mean Corpuscular Volume 92.9 fL (80-100); Mean Platelet Volume 9.5 fL (7.4-10.4); Monocytes # (auto) 0.49 K/uL (0.11-0.59); Monocytes % (auto) 6.7 %; Neutrophils # (auto) 6.11 K/uL (1.4-6.5); Neutrophils % (auto) 83.4 %; Platelet Count 236 K/uL (130-400); RDW Coefficient of Variation 16.2 % (11.5-14.5); RDW Standard Deviation 54.8 fL (36.4-46.3); Red Blood Count 3.68 M/uL (4.7-6.1); White Blood Count 7.33 K/uL (4.8-10.8)
[2019-07-04 07:15] LABS: Partial Thromboplastin Ratio 1.1; Partial Thromboplastin Time 30.7 Seconds (21.0-31.0)
[2019-07-04 07:37] LABS: BUN Creatinine Ratio 22.3 (10-20); Bilirubin Direct 0.5 mg/dl (0-0.2); Calcium 7.9 mg/dl (8.5-10.1); Creatinine Clr Calc Pharmacy 76.4 ml/min; Est GFR (African American) 102.1; Est GFR (Non-African American) 88.1; Potassium 4.3 mmol/L (3.5-5.1)
[2019-07-04 07:47] LABS: Bilirubin,Total 1.2 mg/dl (0.2-1); Total Protein 5.5 gm/dl (6.4-8.2); Troponin I 2.17 ng/ml (0-0.045)
[2019-07-04] MEDS: ATORVASTATIN 40 MG TAB PO SCH (08:17)
[2019-07-04] MEDS: CARVEDILOL 12.5 MG TAB PO SCH ×2 (08:18→20:36)
[2019-07-04] MEDS: LISINOPRIL 5 MG TAB PO SCH (08:20)
[2019-07-04] MEDS: PRASugrel TAB 10 MG TAB PO SCH (08:20)
[2019-07-04] MEDS: ASPIRIN 81 MG ECTAB PO SCH (08:21)
[2019-07-04] MEDS ORDERED: FUROSEMIDE 20 MG in SYRINGE 0 ML IV ONE (12:40)
[2019-07-04] MEDS: ALBUT/IPRATROP 3MG/0.5MG NEB 3 ML VIAL NEB PRN (14:13)
--- NOTE | 2019-07-04 14:26 | Surgery Progress Note ---
Date of Service July 04, 2019 Assessment & Plan (1) Epistaxis: stable, no further Rx. Subjective no further bleeding from nose Physical Exam ENMT: Nose: + nasal mucous membrane abnormality (dried blood left) Results & Data Vital Signs (Past 12 Hours) Vital Signs Temp Pulse Pulse Resp BP BP Pulse Ox 07/04/19 14:13 78 36 H 84 L 07/04/19 11:16 36.8 C 78 22 142/83 H 94 07/04/19 08:55 93 07/04/19 07:30 36.5 C 74 17 125/74 95 07/04/19 03:47 37 C 71 18 126/81 96
--- NOTE | 2019-07-04 17:16 | Cardiology Progress Note ---
Date of Service July 04, 2019 Assessment & Plan (1) Complete heart block: He was on telemetry yesterday. Transported back to telemetry unit due to an episode of chest discomfort. Currently in sinus rhythm. EKG obtained last night did not demonstrate any conduction abnormality. (2) Atrial fibrillation: No additional episodes. His anticoagulation was stopped over concerns about epistaxis and a PAC lesion. Will continue beta-polo. Amiodarone for acute poorly tolerated episodes. (3) Mitral regurgitation: This appears severe on his echocardiogram. No notable murmur. (4) Acute coronary syndrome: He had some symptoms of chest pain again last night. However, the episodes he describes are fairly similar over the course of his admission. Unclear whether they represent worsening pulmonary edema, ischemia or more likely simply anxiety. Tends to happen when he is asked to do things or perform activities. When he gets very stressed he tends to have these episodes and I believe it is more anxiety related than anything else. He feels that an increase in his pain medications may prevent these episodes. In any event, we will not be bringing him back to the catheterization lab for any additional intervention. Given his history of noncompliance he was seen these efforts would be unfruitful. (5) Acute heart failure: He continues to have some breathing difficulty require supplemental oxygen. While he does takes her medicines, he continues to refuse diuretics. He has a lot of difficulty with his perineal area. He is very sensitive regarding this area in actually slowed himself today. He is very paranoid about using the bedpan or having accident such as this. I think this and pursue our efforts to employ diuretics. Subjective Seven in the patient reported an episode anxiety over the course of the evening. It is unclear what activity he was engaged in when he began to feel like this is the end. There were some associated symptoms of chest discomfort and breathing difficulty. He feels better now that he has been able to come down. Does not report eating or drinking anything today. His stomach hurts little bit more today needs more nauseated. Review of Systems Review of Systems: Per HPI Physical Exam Physical Exam: The patient is alert and answered questions appropriately. HEENT: Pupils are equal and reactive to light and accommodation. Extraocular movements are intact. The sclerae are anicteric. Neuro: Cranial nerves intact Lungs: Coarse upper airway sounds bilaterally. Poor air movement overall. Cardiac: Heart demonstrates a regular rate and rhythm. Normal S1 and S2. No murmurs on examination. Pulses: The patient has palpable radial pulses bilaterally that are equal in intensity Extremities: There was no evidence of hypoperfusion. He did have feces on his right hand. Results & Data Vital Signs (Past 12 Hours) Vital Signs Temp Pulse Pulse Resp BP Pulse Ox 07/04/19 15:45 36.6 C 80 20 161/82 H 90 07/04/19 14:13 78 36 H 84 L 07/04/19 11:16 36.8 C 78 22 142/83 H 94 07/04/19 08:55 93 07/04/19 07:30 36.5 C 74 17 125/74 95 Laboratory Results Abnormal Lab Results 07/03/19 07/03/19 07/03/19 21:27 21:27 21:27 WBC 8.29 RBC 3.94 L Hgb 11.6 L Hct 36.0 L MCV 91.4 MCH 29.4 MCHC 32.2 RDW Std Deviation 53.2 H RDW Coeff of Dante 16.1 H Plt Count 263 MPV 9.7 Immature Gran % (Auto) 0.1 Neut % (Auto) 87.2 Lymph % (Auto) 5.3 [place] % (Auto) 6.3 Eos % (Auto) 1.0 Baso % (Auto) 0.1 Immature Gran # (Auto) 0.01 Neut # (Auto) 7.23 H Lymph # (Auto) 0.44 L [place] # (Auto) 0.52 Eos # (Auto) 0.08 Baso # (Auto) 0.01 APTT 31.1 H PTT Ratio 1.1 Sodium 142 Potassium 4.3 Chloride 109 H Carbon Dioxide 26 Anion Gap 7.0 BUN 22 H Creatinine 0.91 Est Cr Clr Drug Dosing 75.7 Est GFR ( Amer) 100.7 Est GFR (Non-Af Amer) 86.9 BUN/Creatinine Ratio 23.7 H Glucose 102 H Calcium 8.0 L Magnesium 2.2 Total Bilirubin 1.3 H Direct Bilirubin AST 27 ALT 27 Alkaline Phosphatase 137 H Troponin I 2.240 H* Total Protein 5.9 L Albumin 2.2 L Globulin 3.7 Albumin/Globulin Ratio 0.6 L Lipase 47 L 07/04/19 07/04/19 07/04/19 06:52 06:52 06:52 WBC 7.33 RBC 3.68 L Hgb 10.6 L Hct 34.2 L MCV 92.9 MCH 28.8 MCHC 31.0 L RDW Std Deviation 54.8 H RDW Coeff of Dante 16.2 H Plt Count 236 MPV 9.5 Immature Gran % (Auto) 0.1 Neut % (Auto) 83.4 Lymph % (Auto) 8.3 [place] % (Auto) 6.7 Eos % (Auto) 1.4 Baso % (Auto) 0.1 Immature Gran # (Auto) 0.01 Neut # (Auto) 6.11 Lymph # (Auto) 0.61 L [place] # (Auto) 0.49 Eos # (Auto) 0.10 Baso # (Auto) 0.01 APTT 30.7 PTT Ratio 1.1 Sodium 145 Potassium 4.3 Chloride 111 H Carbon Dioxide 29 Anion Gap 5.0 BUN 20 H Creatinine 0.90 Est Cr Clr Drug Dosing 76.4 Est GFR ( Amer) 102.1 Est GFR (Non-Af Amer) 88.1 BUN/Creatinine Ratio 22.3 H Glucose 81 Calcium 7.9 L Magnesium Total Bilirubin 1.2 H Direct Bilirubin 0.5 H AST 27 ALT 23 Alkaline Phosphatase 124 H Troponin I 2.170 H* Total Protein 5.5 L Albumin 2.0 L Globulin Albumin/Globulin Ratio Lipase Diagnostic Findings Chest x-ray obtained yesterday revealed persistent abnormality, likely pulmonary edema superimposed upon emphysema. PG Care Time/CCT Total # of Minutes Spent Total Time Spent with Patient: Total time spent is greater than 50% in coordination of care (as documented) at patient's floor/unit and/or counseling patient:
--- NOTE | 2019-07-04 17:17 | Hospitalist Progress Note ---
Date of Service July 04, 2019 Assessment & Plan (1) Paranoid schizophrenia: Chronic ongoing hallucinations. Currently not on any meds Psychiatry following Determination of capacity is difficult to assess Epistaxis:Intermittent In setting of Aspirin/Prasugrel use for recent cardiac stent Patient refused any intervention by ENT surgeon Appreciate otolaryngology help Monitor H&H Xarelto held No bleeding today (2) Paroxysmal atrial fibrillation: Continue Coreg Xarelto held secondary to large back wound and intermittent epistaxis Initially thought to be started on amiodarone, however not started as patient is non complaint and is also difficult to monitor Currently in sinus (3) STEMI (ST elevation myocardial infarction): Inferior STEMI S/P BMS placement. Ventricular fibrillation during cath procedure requiring defibrillation attempt ECHO: EF 40-45% with acute MR which could be related to STEMI. Patient refuses Plavix/DAPT (schizophrenic paranoia could be contributing) Continue Prasugrel Intermittently takes aspirin Non complaint with statin Also on coreg, Lisinopril Appreciate Cardiology help (4) Acute heart failure: Likely Ischemic Cardiomyopathy Acute systolic and diastolic CHF Severe mitral regurgitation Volume overloaded on exam Refuses Lasix or Bumex or Torsemide or any other diuretics at this time Appreciate Cardiology Input Continue Lisinopril Continue Oxygen supplementation PRN Appreciate Palliative Care Input to address goals of Care Continues to refuse diuretics (5) Hypoxia: Secondary to acute heart failure. Continue oxygen supplementation (6) Mitral regurgitation: Continue current meds (7) Acute hypoxemic respiratory failure: S/P Extubation Secondary to acute CHF due to STEMI Refuses diuretics Continue Oxygen supplementation Counseled in detail the importance of taking the medications (8) Cholecystitis, acute: Had multiple episodes of cholecystitis in the past and has refused surgery (schizophrenic paranoia thought to be contributing) Ultrasound reveals evidence of GB wall edema and no gallstones. GB wall thickening also could have been related to edematous state Received Zosyn>>> transitioned to Rocephin and Flagyl>> transitioned to Augmentin and completed the course. Refuses to have surgical evaluation during this admission as well (9) HTN (hypertension): continue current meds (10) Open wound of right lower extremity: Chronic, wrapped. 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 (12) Lymphedema of right lower extremity: chronic (13) Noncompliance: Paranoid schizophrenia and homelessness likely contributing Case management is engaging with office of aging (14) DVT prophylaxis: Xarelto held-SCDs for now Code Status Full Code Disposition To be determined Subjective Patient is seen and examined present Clinically declining Refuses care despite explaining on multiple occasions No epistaxis today Has ongoing chronic hallucinations Refused diuretics, Oxymask Reports Chest pain, SOB --ongoing Review of Systems Review of Systems: All systems reviewed & are unremarkable except as noted in HPI & below Physical Exam Physical Exam: Physical Exam: Vitals signs as noted above General Appearance:Chronic ill appearing, disheveled, respiratory distress Head: normocephalic, Atraumatic Eyes: normal inspection, EOMI Neck: supple, Trachea midline Respiratory/Chest: B/L coarse breath sounds, + Mild crackles Cardiovascular: S1, S2, No murmur Abdomen/GI:Soft, non tender, Bowel sounds present Extremities/Musculoskelatal:normal inspection, no edema, R leg in dressing Neurologic/Psych:AAOX3, grossly no focal neurological deficits, + paranoid delusions Skin: normal color, warm Results & Data Vital Signs (Past 12 Hours) Vital Signs Temp Pulse Pulse Resp BP Pulse Ox 07/04/19 15:45 36.6 C 80 20 161/82 H 90 07/04/19 14:13 78 36 H 84 L 07/04/19 11:16 36.8 C 78 22 142/83 H 94 07/04/19 08:55 93 07/04/19 07:30 36.5 C 74 17 125/74 95 Laboratory Results Short CBC 07/03/19 07/04/19 Range/Units 21:27 06:52 WBC 8.29 7.33 (4.8-10.8) K/uL Hgb 11.6 L 10.6 L (14.0-18.0) g/dL Hct 36.0 L 34.2 L (42-52) % Plt Count 263 236 (130-400) K/uL BMP 07/03/19 07/04/19 21:27 06:52 Sodium 142 145 Potassium 4.3 4.3 Chloride 109 H 111 H Carbon Dioxide 26 29 BUN 22 H 20 H Creatinine 0.91 0.90 Glucose 102 H 81 Calcium 8.0 L 7.9 L Cardiac Enzymes 07/03/19 07/04/19 Range/Units 21:27 06:52 Troponin I 2.240 H* 2.170 H* (0-0.045) ng/ml Liver Function 07/03/19 07/04/19 Range/Units 21:27 06:52 Total Bilirubin 1.3 H 1.2 H (0.2-1) mg/dl Direct Bilirubin 0.5 H (0-0.2) mg/dl AST 27 27 (15-37) U/L ALT 27 23 (12-78) U/L Alkaline Phosphatase 137 H 124 H (45-117) U/L Albumin 2.2 L 2.0 L (3.4-5.0) gm/dl
[2019-07-05] MEDS: TRAMADOL HCL 50 MG TABLET PO PRN ×5 (02:54→22:56)
[2019-07-05 06:00] LABS: Hematocrit (blood only) 37.3 % (42-52); Hemoglobin 11.6 g/dL (14.0-18.0)
[2019-07-05 06:28] LABS: BUN Creatinine Ratio 23.7 (10-20); Calcium 7.9 mg/dl (8.5-10.1); Creatinine Clr Calc Pharmacy 64.2 ml/min; Est GFR (African American) 88.8; Est GFR (Non-African American) 76.6; Potassium 4.3 mmol/L (3.5-5.1)
[2019-07-05] MEDS: CARVEDILOL 12.5 MG TAB PO SCH ×2 (07:59→21:33)
[2019-07-05] MEDS: ATORVASTATIN 40 MG TAB PO SCH (08:00)
[2019-07-05] MEDS: LISINOPRIL 5 MG TAB PO SCH (08:00)
[2019-07-05] MEDS: PRASugrel TAB 10 MG TAB PO SCH (08:00)
[2019-07-05] MEDS: ASPIRIN 81 MG ECTAB PO SCH (08:01)
--- NOTE | 2019-07-05 17:43 | Hospitalist Progress Note ---
Date of Service July 05, 2019 Assessment & Plan (1) Paranoid schizophrenia: Chronic ongoing hallucinations. Currently not on any meds Psychiatry following Determination of capacity is difficult to assess Epistaxis:Intermittent In setting of Aspirin/Prasugrel use for recent cardiac stent Patient refused any intervention by ENT surgeon Appreciate otolaryngology help Monitor H&H Xarelto held No Epistaxis today Hb stable (2) Paroxysmal atrial fibrillation: Continue Coreg Xarelto held secondary to large back wound and intermittent epistaxis Initially thought to be started on amiodarone, however not started as patient is non complaint and is also difficult to monitor Currently in sinus (3) STEMI (ST elevation myocardial infarction): Inferior STEMI S/P BMS placement. Ventricular fibrillation during cath procedure requiring defibrillation attempt ECHO: EF 40-45% with acute MR which could be related to STEMI. Patient refuses Plavix/DAPT (schizophrenic paranoia could be contributing) Continue Prasugrel Intermittently takes aspirin Non complaint with statin Also on coreg, Lisinopril Appreciate Cardiology help No plan for repeat intervention, given noncompliance (4) Acute heart failure: Likely Ischemic Cardiomyopathy Acute systolic and diastolic CHF Severe mitral regurgitation Volume overloaded on exam Refuses Lasix or Bumex or Torsemide or any other diuretics at this time Appreciate Cardiology Input Continue Lisinopril Continue Oxygen supplementation PRN Appreciate Palliative Care Input to address goals of Care Refuses diuretics (5) Hypoxia: Secondary to acute heart failure. Continue oxygen supplementation (6) Mitral regurgitation: Continue current meds (7) Acute hypoxemic respiratory failure: S/P Extubation Secondary to acute CHF due to STEMI Refuses diuretics Continue Oxygen supplementation Counseled in detail the importance of taking the medications but continues to refuse (8) Cholecystitis, acute: Had multiple episodes of cholecystitis in the past and has refused surgery (schizophrenic paranoia thought to be contributing) Ultrasound reveals evidence of GB wall edema and no gallstones. GB wall thickening also could have been related to edematous state Received Zosyn>>> transitioned to Rocephin and Flagyl>> transitioned to Augmentin and completed the course. Refuses to have surgical evaluation during this admission as well (9) HTN (hypertension): continue current meds (10) Open wound of right lower extremity: Chronic, wrapped. 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 (12) Lymphedema of right lower extremity: chronic (13) Noncompliance: Paranoid schizophrenia and homelessness likely contributing Case management is engaging with office of aging (14) DVT prophylaxis: Xarelto held-SCDs for now Code Status Full Code Disposition To be determined Subjective Patient is seen and examined present Subjectively feels better today Very poor appetite Refuses most of his medications No epistaxis today Has ongoing chronic hallucinations Reports Chest pain, SOB --Intermittently Review of Systems Review of Systems: All systems reviewed & are unremarkable except as noted in HPI & below Physical Exam Physical Exam: Physical Exam: Vitals signs as noted above General Appearance:Chronic ill appearing, disheveled, respiratory distress Head: normocephalic, Atraumatic Eyes: normal inspection, EOMI Neck: supple, Trachea midline Respiratory/Chest: B/L coarse breath sounds, + Mild crackles Cardiovascular: S1, S2, No murmur Abdomen/GI:Soft, non tender, Bowel sounds present Extremities/Musculoskelatal:normal inspection, no edema, R leg in dressing Neurologic/Psych:AAOX3, grossly no focal neurological deficits, + paranoid delusions Skin: normal color, warm Results & Data Vital Signs (Past 12 Hours) Vital Signs Temp Pulse Resp BP Pulse Ox 07/05/19 15:08 36.4 C L 68 18 130/79 96 07/05/19 11:13 36.5 C 61 16 125/76 93 07/05/19 07:11 36.3 C L 73 19 138/85 95 Laboratory Results Short CBC 07/05/19 Range/Units 05:27 Hgb 11.6 L (14.0-18.0) g/dL Hct 37.3 L (42-52) % BMP 07/05/19 05:27 Sodium 143 Potassium 4.3 Chloride 109 H Carbon Dioxide 27 BUN 24 H Creatinine 1.01 Glucose 79 Calcium 7.9 L
[2019-07-06] MEDS: TRAMADOL HCL 50 MG TABLET PO PRN ×4 (03:13→18:13)
[2019-07-06] MEDS: LISINOPRIL 5 MG TAB PO SCH (08:04)
[2019-07-06] MEDS: ASPIRIN 81 MG ECTAB PO SCH (08:04)
[2019-07-06] MEDS: PRASugrel TAB 10 MG TAB PO SCH (08:04)
[2019-07-06] MEDS: CARVEDILOL 12.5 MG TAB PO SCH ×2 (08:04→19:24)
[2019-07-06] MEDS: ATORVASTATIN 40 MG TAB PO SCH (08:04)
--- NOTE | 2019-07-06 16:47 | Hospitalist Progress Note ---
Date of Service July 06, 2019 Assessment & Plan (1) Paranoid schizophrenia: Chronic ongoing hallucinations. Currently not on any medications Psychiatry following Determination of capacity is difficult to assess Epistaxis:Intermittent In setting of Aspirin/Prasugrel use for recent cardiac stent Patient refused any intervention by ENT surgeon Appreciate otolaryngology help Monitor H&H Xarelto held Epistaxis seems to have resolved Hb stable (2) Paroxysmal atrial fibrillation: Continue Coreg Xarelto held secondary to large back wound and intermittent epistaxis Initially thought to be started on amiodarone, however not started as patient is non complaint and is also difficult to monitor Heart rate is controlled (3) STEMI (ST elevation myocardial infarction): Inferior STEMI S/P BMS placement. Ventricular fibrillation during cath procedure requiring defibrillation attempt ECHO: EF 40-45% with acute MR which could be related to STEMI. Patient refuses Plavix/DAPT (schizophrenic paranoia could be contributing) Continue Prasugrel Intermittently takes aspirin Non complaint with statin Also on Coreg, Lisinopril Appreciate Cardiology help No plan for repeat intervention if needed, given noncompliance (4) Acute heart failure: Likely Ischemic Cardiomyopathy Acute systolic and diastolic CHF Severe mitral regurgitation Volume overloaded on exam Refuses Lasix or Bumex or Torsemide or any other diuretics at this time Appreciate Cardiology Input Continue Lisinopril Continue Oxygen supplementation PRN Appreciate Palliative Care Input to address goals of Care Refuses diuretics Monitor volume status (5) Hypoxia: Secondary to acute heart failure. Continue oxygen supplementation (6) Mitral regurgitation: Continue current meds (7) Acute hypoxemic respiratory failure: S/P Extubation Secondary to acute CHF due to STEMI Refuses diuretics Continue Oxygen supplementation Counseled in detail the importance of taking the medications but continues to refuse (8) Cholecystitis, acute: Had multiple episodes of cholecystitis in the past and has refused surgery (schizophrenic paranoia thought to be contributing) Ultrasound reveals evidence of GB wall edema and no gallstones. GB wall thickening also could have been related to edematous state Received Zosyn>>> transitioned to Rocephin and Flagyl>> transitioned to Augmentin and completed the course. Refuses to have surgical evaluation during this admission as well (9) HTN (hypertension): continue current meds (10) Open wound of right lower extremity: Chronic, wrapped. 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 (12) Lymphedema of right lower extremity: chronic (13) Noncompliance: Paranoid schizophrenia and homelessness likely contributing Case management is engaging with office of aging (14) DVT prophylaxis: Xarelto held-SCDs for now Code Status Full Code Disposition To be determined Subjective Patient is seen and examined present No diarrhea today Encouraged to increase PO intake Denies epistaxis Has ongoing chronic hallucinations Reports Chest pain, SOB --Intermittently No other complaints Review of Systems Review of Systems: All systems reviewed & are unremarkable except as noted in HPI & below Physical Exam Physical Exam: Physical Exam: Vitals signs as noted above General Appearance:Chronic ill appearing, disheveled, respiratory distress Head: normocephalic, Atraumatic Eyes: normal inspection, EOMI Neck: supple, Trachea midline Respiratory/Chest: B/L coarse breath sounds, + Minimal crackles Cardiovascular: S1, S2, No murmur Abdomen/GI:Soft, non tender, Bowel sounds present Extremities/Musculoskelatal:normal inspection, no edema, R leg in dressing Neurologic/Psych:AAOX3, grossly no focal neurological deficits, + paranoid delusions Skin: normal color, warm Results & Data Vital Signs (Past 12 Hours) Vital Signs Temp Pulse Resp BP Pulse Ox 07/06/19 15:36 36.9 C 74 20 143/68 H 96 07/06/19 11:21 36.6 C 72 18 141/86 H 99 07/06/19 07:14 36.7 C 80 19 150/85 H 97
[2019-07-07] MEDS: TRAMADOL HCL 50 MG TABLET PO PRN ×5 (04:45→23:20)
[2019-07-07] MEDS: PRASugrel TAB 10 MG TAB PO SCH (07:43)
[2019-07-07] MEDS: LISINOPRIL 5 MG TAB PO SCH (07:43)
[2019-07-07] MEDS: ATORVASTATIN 40 MG TAB PO SCH (07:43)
[2019-07-07] MEDS: CARVEDILOL 12.5 MG TAB PO SCH ×2 (07:43→19:23)
[2019-07-07] MEDS: ASPIRIN 81 MG ECTAB PO SCH ×2 (07:44→07:51)
--- NOTE | 2019-07-07 14:28 | Hospitalist Progress Note ---
Date of Service July 07, 2019 Assessment & Plan (1) Paranoid schizophrenia: Chronic ongoing hallucinations. Currently not on any medications Psychiatry following Determination of capacity is difficult to assess Epistaxis: In setting of Aspirin/Prasugrel use for recent cardiac stent Patient refused any intervention by ENT surgeon Appreciate otolaryngology help Monitor H&H Xarelto held Epistaxis resolved Monitor CBC (2) Paroxysmal atrial fibrillation: Continue Coreg Xarelto held secondary to large back wound and intermittent epistaxis Initially thought to be started on amiodarone, however not started as patient is non complaint and is also difficult to monitor Heart rate is controlled (3) STEMI (ST elevation myocardial infarction): Inferior STEMI S/P BMS placement. Ventricular fibrillation during cath procedure requiring defibrillation attempt ECHO: EF 40-45% with acute MR which could be related to STEMI. Patient refuses Plavix/DAPT (schizophrenic paranoia could be contributing) Continue Prasugrel Intermittently takes aspirin Non complaint with statin Also on Coreg, Lisinopril Appreciate Cardiology help No plan for repeat intervention if needed, given noncompliance Continue current medications (4) Acute heart failure: Likely Ischemic Cardiomyopathy Acute systolic and diastolic CHF Severe mitral regurgitation Volume overloaded on exam Refuses Lasix or Bumex or Torsemide or any other diuretics Appreciate Cardiology Input Continue Lisinopril Continue Oxygen supplementation PRN Appreciate Palliative Care Input to address goals of Care Refuses diuretics Monitor volume status (5) Hypoxia: Secondary to acute heart failure. Continue oxygen supplementation (6) Mitral regurgitation: Continue current meds (7) Acute hypoxemic respiratory failure: S/P Extubation Secondary to acute CHF due to STEMI Refuses diuretics Continue Oxygen supplementation Counseled in detail the importance of taking the medications but continues to refuse (8) Cholecystitis, acute: Had multiple episodes of cholecystitis in the past and has refused surgery (schizophrenic paranoia thought to be contributing) Ultrasound reveals evidence of GB wall edema and no gallstones. GB wall thickening also could have been related to edematous state Received Zosyn>>> transitioned to Rocephin and Flagyl>> transitioned to Augmentin and completed the course. Refuses to have surgical evaluation during this admission as well (9) HTN (hypertension): continue current meds (10) Open wound of right lower extremity: Chronic, wrapped. 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 (12) Lymphedema of right lower extremity: chronic (13) Noncompliance: Paranoid schizophrenia and homelessness likely contributing Case management is engaging with office of aging (14) DVT prophylaxis: Xarelto held-SCDs for now Code Status Full Code Disposition To be determined Subjective Patient is seen and examined present Nauseous earlier today, no vomiting or abdominal pain Very poor appetite Denies epistaxis Has ongoing chronic hallucinations Has Chest pain, SOB --Intermittently, unchanged Review of Systems Review of Systems: All systems reviewed & are unremarkable except as noted in HPI & below Physical Exam Physical Exam: Physical Exam: Vitals signs as noted above General Appearance:Chronic ill appearing, disheveled, respiratory distress Head: normocephalic, Atraumatic Eyes: normal inspection, EOMI Neck: supple, Trachea midline Respiratory/Chest: B/L air entry, + Minimal crackles Cardiovascular: S1, S2, No murmur Abdomen/GI:Soft, non tender, Bowel sounds present Extremities/Musculoskelatal:normal inspection, no edema, R leg in dressing Neurologic/Psych:AAOX3, grossly no focal neurological deficits, + paranoid delusions Skin: normal color, warm Results & Data Vital Signs (Past 12 Hours) Vital Signs Temp Pulse Resp BP Pulse Ox 07/07/19 11:37 36.6 C 68 20 143/87 H 97 07/07/19 07:47 36.4 C L 80 20 162/94 H 95 07/07/19 03:27 36.6 C 72 18 137/76 98
[2019-07-08] MEDS: TRAMADOL HCL 50 MG TABLET PO PRN ×3 (04:11→19:56)
[2019-07-08] MEDS: LISINOPRIL 5 MG TAB PO SCH (08:03)
[2019-07-08] MEDS: ATORVASTATIN 40 MG TAB PO SCH (08:03)
[2019-07-08] MEDS: CARVEDILOL 12.5 MG TAB PO SCH ×2 (08:03→19:55)
[2019-07-08] MEDS: PRASugrel TAB 10 MG TAB PO SCH (08:03)
[2019-07-08] MEDS: ASPIRIN 81 MG ECTAB PO SCH (08:03)
[2019-07-08] MEDS: ALBUT/IPRATROP 3MG/0.5MG NEB 3 ML VIAL NEB PRN (12:56)
[2019-07-08] MEDS ORDERED: MoRPHine SULFATE 2 MG/ML CARP ONE (13:06)
[2019-07-08] MEDS ORDERED: MoRPHine SULFATE 2 MG/ML CARP IV STA (13:09)
--- NOTE | 2019-07-08 15:06 | XRay Report ---
XR chest 1V portable HISTORY: 69 years-old Male Respiratory failure acute respiratory failure COMPARISON: Chest radiograph 07/03/2019 TECHNIQUE: Portable AP view of the chest FINDINGS: Cardiac silhouette is unchanged in size. Extensive bilateral mixed interstitial and alveolar opacitie s are redemonstrated with slightly progressed alveolar opacities of the left midlung. No pneumothorax . Right greater than left bilateral pleural effusions. Suggested emphysema. Bones of the chest appear grossly intact. IMPRESSION: 1. Extensive bilateral mixed interstitial and alveolar opacities redemonstrated suggestive of pulmona ry edema. Alveolar opacities of the left midlung have slightly progressed. Superimposed pneumonia wou ld be impossible to exclude. 2. Right greater than left bilateral pleural effusions. The above report was generated using voice recognition software. It may contain grammatical, syntax o r spelling errors. Electronically signed by: Shaun Dorantes M.D. 07/08/2019 3:05 PM
--- NOTE | 2019-07-08 15:09 | Hospitalist Progress Note ---
Date of Service July 08, 2019 Assessment & Plan (1) Paranoid schizophrenia: Chronic ongoing hallucinations. Currently not on any medications Psychiatry following Determination of capacity is difficult to assess Epistaxis: In setting of Aspirin/Prasugrel use for recent cardiac stent Patient refused any intervention by ENT surgeon Appreciate otolaryngology help Monitor H&H Xarelto held Epistaxis resolved Monitor CBC (2) Paroxysmal atrial fibrillation: Continue Coreg Xarelto held secondary to large back wound and intermittent epistaxis Initially thought to be started on amiodarone, however not started as patient is non complaint and is also difficult to monitor Heart rate is controlled (3) STEMI (ST elevation myocardial infarction): Inferior STEMI S/P BMS placement. Ventricular fibrillation during cath procedure requiring defibrillation attempt ECHO: EF 40-45% with acute MR which could be related to STEMI. Patient refuses Plavix/DAPT (schizophrenic paranoia could be contributing) Continue Prasugrel Intermittently takes aspirin Non complaint with statin Also on Coreg, Lisinopril Appreciate Cardiology help No plan for repeat intervention if needed, given noncompliance Acute Hypoxemic respiratory failure Likely due to CHF/Ischemic Cardiomyopathy S/P Extubation this hospitalization Refuses diuretics adamantly Claustrophobic to Oxymask/BiPAP use Continue Nebs, Supplemental Oxygen Will repeat CXR Consulted Pulmonology for Input (4) Acute heart failure: Likely Ischemic Cardiomyopathy Acute systolic and diastolic CHF Severe mitral regurgitation Volume overloaded on exam Refuses Lasix or Bumex or Torsemide or any other diuretics Appreciate Cardiology Input Continue Lisinopril Continue Oxygen supplementation PRN Appreciate Palliative Care Input to address goals of Care Refuses diuretics Monitor volume status (5) Hypoxia: Management as above (6) Mitral regurgitation: Continue current meds (7) Acute hypoxemic respiratory failure: Management as above (8) Cholecystitis, acute: Had multiple episodes of cholecystitis in the past and has refused surgery (schizophrenic paranoia thought to be contributing) Ultrasound reveals evidence of GB wall edema and no gallstones. GB wall thickening also could have been related to edematous state Received Zosyn>>> transitioned to Rocephin and Flagyl>> transitioned to Augmentin and completed the course. Refuses to have surgical evaluation during this admission as well (9) HTN (hypertension): continue current meds (10) Open wound of right lower extremity: Chronic, wrapped. 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 (12) Lymphedema of right lower extremity: chronic (13) Noncompliance: Paranoid schizophrenia and homelessness likely contributing Case management is engaging with office of aging (14) DVT prophylaxis: Xarelto held-Re: Recurrent Epistaxis: SCDs for now Code Status Full Code Disposition To be determined Subjective Patient is seen and examined present Is in respiratory distress earlier today Initially refused Oxymask but later agreed to use Sats only slightly improved with breathing treatment Refuses BiPAP due to claustrophobia Continues to refuse diuretics Reports shortness of breath and is anxious Ongoing chronic hallucinations Has Chest pain --Intermittently, unchanged per patient Review of Systems Review of Systems: All systems reviewed & are unremarkable except as noted in HPI & below Physical Exam Physical Exam: Physical Exam: Vitals signs as noted above General Appearance:Chronic ill appearing, disheveled, + respiratory distress Head: normocephalic, Atraumatic Eyes: normal inspection, EOMI Neck: supple, Trachea midline Respiratory/Chest: B/L air entry, + crackles Cardiovascular: S1, S2, No murmur Abdomen/GI:Soft, non tender, Bowel sounds present Extremities/Musculoskelatal:normal inspection, no edema, R leg in dressing Neurologic/Psych:AAOX3, grossly no focal neurological deficits, + paranoid delusions Skin: normal color, warm Results & Data Vital Signs (Past 12 Hours) Vital Signs Temp Pulse Resp BP Pulse Ox 07/08/19 12:57 97 H 32 H 97 07/08/19 11:11 36.6 C 77 20 157/97 H 90 07/08/19 07:06 36.5 C 83 17 136/98 92 07/08/19 04:04 36.7 C 78 18 146/79 H 92
[2019-07-08 15:15] LABS: Basophils # (auto) 0.01 K/uL (0-0.2); Basophils % (auto) 0.1 %; Eosinophils # (auto) 0.05 K/uL (0-0.5); Eosinophils % (auto) 0.6 %; Hematocrit (blood only) 36.2 % (42-52); Hemoglobin 11.7 g/dL (14.0-18.0); Immature Granulocytes # (auto) 0.02 K/uL (0.00-0.02); Immature Granulocytes % (auto) 0.2 %; Lymphocytes # (auto) 0.42 K/uL (1.2-3.4); Lymphocytes % (auto) 4.7 %; Mean Corpuscular Hemoglobin 29.9 pg (25-34); Mean Corpuscular Volume 92.6 fL (80-100); Mean Platelet Volume 9.2 fL (7.4-10.4); Monocytes # (auto) 0.52 K/uL (0.11-0.59); Monocytes % (auto) 5.8 %; Neutrophils # (auto) 7.99 K/uL (1.4-6.5); Neutrophils % (auto) 88.6 %; Platelet Count 248 K/uL (130-400); RDW Coefficient of Variation 15.9 % (11.5-14.5); RDW Standard Deviation 53.6 fL (36.4-46.3); Red Blood Count 3.91 M/uL (4.7-6.1); White Blood Count 9.01 K/uL (4.8-10.8)
[2019-07-08 15:48] LABS: BUN Creatinine Ratio 23.9 (10-20); Creatinine Clr Calc Pharmacy 74.5 ml/min; Est GFR (African American) 103.5; Est GFR (Non-African American) 89.3; Mean Corpuscular Hgb Conc 32.3 g/dL (32-36); Potassium 4.2 mmol/L (3.5-5.1)
--- NOTE | 2019-07-08 20:04 | Pulmonary Consultation ---
Date of Consultation July 08, 2019 Assessment & Plan (1) Hypoxia: Hypoxia is most likely multifactorial to recent PR with demonstrated severe mitral regurgitation as well as pulmonary edema from the same. Patient is currently refusing diuresis. Patient also has pleural effusions which may be resultant and atelectasis further compromising respiratory status. At this point we have offered alternatives to the patient regarding diuresis and he is adamantly refusing at this time. A plan was suggested to him and he would like to think about treatment alternatives. We indicated that we will stop by tomorrow and have further discussion regarding treatment options with the patient. Plan was also discussed with Dr. Mosley of the primary team. We will continue to follow this patient with you. (2) Pleural effusion: Chest x-ray today reveals small to moderate bilateral pleural effusions as well as pulmonary edema. At this point patient is not receptive to any invasive treatments. Pleural effusions most likely secondary to cardiac manifestation and refusal of patient to use diuretics. Hopefully the patient will agree to diuresis and pleural effusions will improve without invasive intervention. (3) DVT prophylaxis: Patient is currently receiving aspirin as well as Xarelto for recent stent Patient is refusing other antiplatelet agents Patient does have history of DVT in the past with right lower extremity lymphedema Continue to monitor Increase ambulation as tolerated We will defer further DVT prophylaxis to primary team Thank you for including us in the care of this patient. Please refer to Dr. Batres's addendum for further recommendations. We will continue to follow t his patient with you at this time. Supervising Physician Co-Signing Physician Notes I personally evaluated and examined this patient. I agree with the assessment and plan of Sudhir MAYS. [Patient has a significant history of severe schizophrenia which is making it difficult to come up with a treatment plan that would be agreeable to the patient. He refuses any diuretic therapy as he says that it makes him have severe and frequent bowel movements. We gave him the option of receiving a one- time dose of loperamide and then giving him Lasix to hopefully to reduce this side effect that he has with diuretic therapy. He says that he will "think about it" at this time. He has severe mitral valve regurgitation along with grade 2 diastolic dysfunction which are the most likely causes of his hypoxemia and appearance of his chest x-ray (bilateral batwing infiltrates). Given his psychiatric history, it is prudent to check his HIV status and his drug abuse status. If he is found to be in an immunocompromised state, he is certainly at risk for PJP. Though at this time it is more likely that he has heart failure causing his significant hypoxemia. On bedside ultrasound he had very large bilateral effusions and evidence of B-lines. He also had clear evidence of a dilated IVC and reduced ejection fraction. It does not appear that he has diffuse alveolar hemorrhage given that his hemoglobin is stable and he has no significant hemoptysis. It is of note, that he is at risk for alveolar hemorrhage given the appearance of the infiltrates on his chest x-ray and the multiple anticoagulants that he is on.] History of Present Illness Attending Physician: Uche Chatman MD History of Present Illness Attending: Dr. Batres Is a 69-year-old male that was admitted for acute ST elevated PR. He was taken to the cardiac catheterization lab and received a stent to the c ircumflex vessel. The patient was refusing Plavix and was adamant that he would not take Brilinta. Patient did have evidence of complete heart block which resolved with reperfusion. Echocardiogram revealed severe mitral regurgitation. Patient also had evidence of ventricular ectopy during this hospital stay. Patient initially was started on amiodarone. That was stopped and patient was started on beta-blockade. Over the course the last several days the patient has become more hypoxic and d yspneic. He is to the point where he cannot move out of bed without significant dyspnea with exertion. The patient does have demonstrated fluid overload on imaging as well as bedside ultrasound. Bedside exam today by Dr. Sparks revealed significant B-lines with ultrasound. Patient also has bilateral pleural effusions. We had a long discussion with the patient about diuresis and at this time he is refusing Lasix as well as Bumex. He states that every time he takes Lasix he has to go on the bedpan and this nearly kills them and that he also has bowel movements every time that he takes Lasix. It was suggested that the patient receive a single dose of Imodium prior to diuresis. Patient stated that he wanted to think about this. The patient denies any cough or sputum production. He has no frothy sputum. He has no hemoptysis. The patient currently denies chest pain or tightness. He also has no flank pain. He denies any further acute complaints. The patient is reportedly homeless. He lives in the [place] area. In discussion regarding past drug abuse history he states that he did drugs in college but never did IV drugs. He does admit to smoking marijuana. He also reportedly has a tobacco abuse history with cigarette smoking but states that he quit smoking 10 years ago. He denies any current ethanol use. He denies any activity placing him at risk for HIV but does consent to HIV testing secondary to imaging as explained to him. The patient has no family in the area and no third-libertarian decision maker. The patient does have a recent court order of guardianship allowing medical staff to make decisions regarding his treatment. At the time of our examination, it appeared that the patient was competent and we will comply with his decision not to have diuresis but strongly advised that he consider medical treatment. We indicated to him the failure to receive treatment could result in . Allergies Allergy/AdvReac Type Severity Reaction Status Date / Time horse dander Allergy Unknown HORSE HAIR Verified 03/02/17 23:27 tetanus toxoid, adsorbed Allergy Unknown Verified 03/02/17 23:27 Patient History Medical History History of pancreatitis History of tobacco abuse History of testicular cancer Lymphedema of right lower extremity History of DVT (deep vein thrombosis) Hypertension Schizophrenia Homelessness Surgical History Hx of heart artery stent Status post cardiac catheterization Family History Other Unknown family medical history Social History Preferred Language: Filipino Communication Ability: Effective Beliefs That Will Affect Care: Spiritual Current Living Situation: Homeless Feels Safe at Home: Hesitant to Answer Smoking Status: Former smoker Number of Years Since Quit: 10 ; Hx Alcohol Use: Yes Hx Substance Use: Yes (Smoked marijuana and used other oral drugs in college. No IV drug abuse reported) Review of Systems Review of Systems: All systems reviewed & are unremarkable except as noted in HPI & below Physical Exam Physical Exam: GENERAL : No acute distress. Poor nutritional appearance EYES: No icterus, gaze conjugate. NOSE: No evidence of epistaxis MOUTH: No lesions or candidiasis. Mucosa moist NECK: Supple LUNGS: CTA B/L, no wheezes, rales or rhonchi HEART: Regular, rate controlled ABDOMEN: Soft, NT, ND, BS Present EXTREMITIES: Right lower extremity lymphedema NEURO: Awake and alert. Appears to be competent during our discussion. Refusing treatment but has his own rationale which is sound to him. Results & Data Vital Signs (Past 12 Hours) Vital Signs Temp Pulse Pulse Resp BP Pulse Ox 07/08/19 19:00 36.7 C 84 18 167/98 H 92 07/08/19 15:28 36.6 C 69 16 129/86 96 07/08/19 12:57 97 H 32 H 97 07/08/19 11:11 36.6 C 77 20 157/97 H 90 Laboratory Results 07/08/19 15:03 07/08/19 15:03 Diagnostic Findings XR chest 1V portable HISTORY: 69 years-old Male Respiratory failure acute respiratory failure COMPARISON: Chest radiograph 07/03/2019 TECHNIQUE: Portable AP view of the chest FINDINGS: Cardiac silhouette is unchanged in size. Extensive bilateral mixed interstitial and alveolar opacities are redemonstrated with slightly progressed alveolar opacities of the left midlung. No pneumothorax. Right greater than left bilateral pleural effusions. Suggested emphysema. Bones of the chest appear grossly intact. IMPRESSION: 1. Extensive bilateral mixed interstitial and alveolar opacities redemonstrated suggestive of pulmonary edema. Alveolar opacities of the left midlung have slightly progressed. Superimposed pneumonia would be impossible to exclude. 2. Right greater than left bilateral pleural effusions. The above report was generated using voice recognition software. It may contain grammatical, syntax or spelling errors. Electronically signed by: Shaun Dorantes M.D. 07/08/2019 3:05 PM PG Care Time/CCT Total # of Minutes Spent Total Time Spent with Patient: Total time spent is greater than 50% in coordination of care (as documented) at patient's floor/unit and/or counseling patient:
[2019-07-09] MEDS ORDERED: METOPROLOL TARTRATE 1 MG/ML VIAL IV PRN (02:56)
[2019-07-09 06:22] LABS: Basophils # (auto) 0.01 K/uL (0-0.2); Basophils % (auto) 0.1 %; Eosinophils # (auto) 0.08 K/uL (0-0.5); Eosinophils % (auto) 1.1 %; Hematocrit (blood only) 38.4 % (42-52); Hemoglobin 11.9 g/dL (14.0-18.0); Immature Granulocytes # (auto) 0.01 K/uL (0.00-0.02); Immature Granulocytes % (auto) 0.1 %; Lymphocytes # (auto) 0.45 K/uL (1.2-3.4); Lymphocytes % (auto) 6.4 %; Mean Corpuscular Hemoglobin 28.7 pg (25-34); Mean Corpuscular Volume 92.8 fL (80-100); Mean Platelet Volume 9.7 fL (7.4-10.4); Monocytes # (auto) 0.53 K/uL (0.11-0.59); Monocytes % (auto) 7.5 %; Neutrophils # (auto) 5.94 K/uL (1.4-6.5); Neutrophils % (auto) 84.8 %; Platelet Count 227 K/uL (130-400); Red Blood Count 4.14 M/uL (4.7-6.1); White Blood Count 7.02 K/uL (4.8-10.8)
[2019-07-09 06:59] LABS: BUN Creatinine Ratio 25.8 (10-20); Calcium 8.1 mg/dl (8.5-10.1); Creatinine Clr Calc Pharmacy 77.2 ml/min; Est GFR (African American) 106.6; Potassium 3.9 mmol/L (3.5-5.1)
[2019-07-09] MEDS: CARVEDILOL 12.5 MG TAB PO SCH ×2 (08:00→19:38)
[2019-07-09] MEDS: TRAMADOL HCL 50 MG TABLET PO PRN ×3 (08:00→19:38)
[2019-07-09] MEDS: ATORVASTATIN 40 MG TAB PO SCH (08:01)
[2019-07-09] MEDS: ASPIRIN 81 MG ECTAB PO SCH (08:01)
[2019-07-09] MEDS: LISINOPRIL 5 MG TAB PO SCH (08:01)
[2019-07-09] MEDS: PRASugrel TAB 10 MG TAB PO SCH (08:01)
[2019-07-09] MEDS ORDERED: FUROSEMIDE 40 MG/4 ML VIAL IV STA (10:37)
[2019-07-09] MEDS ORDERED: MoRPHine SULFATE 2 MG/ML CARP IV STA (10:38)
[2019-07-09] MEDS ORDERED: FUROSEMIDE 40 MG in SYRINGE 0 ML IV ONE (10:45)
--- NOTE | 2019-07-09 16:08 | Hospitalist Progress Note ---
Date of Service July 09, 2019 Assessment & Plan (1) Paranoid schizophrenia: Chronic ongoing hallucinations. Currently not on any medications Psychiatry following Determination of capacity is difficult to assess Has been refusing treatment Office of aging involved Placed "order for patient to receive treatment in the hospital and placement post discharge Court hearing on July 11 at 1500 Epistaxis: In setting of Aspirin/Prasugrel use for recent cardiac stent Patient refused any intervention by ENT surgeon Appreciate otolaryngology help Monitor H&H Xarelto held No bleeding issues currently Monitor CBC (2) Paroxysmal atrial fibrillation: Continue Coreg Xarelto held secondary to large back wound and intermittent epistaxis Initially thought to be started on amiodarone, however not started as patient is non complaint and is also difficult to monitor Lopressor PRN Plan to resume Xarelto as able (3) STEMI (ST elevation myocardial infarction): Inferior STEMI S/P BMS placement. Ventricular fibrillation during cath procedure requiring defibrillation attempt ECHO: EF 40-45% with acute MR which could be related to STEMI. Patient refuses Plavix/DAPT (schizophrenic paranoia could be contributing) Continue Prasugrel Intermittently takes aspirin Non complaint with statin Also on Coreg, Lisinopril Appreciate Cardiology help No plan for repeat intervention if needed, given noncompliance Acute Hypoxemic respiratory failure Likely due to CHF/Ischemic Cardiomyopathy S/P Extubation this hospitalization Refuses diuretics adamantly Claustrophobic to Oxymask/BiPAP use Continue Nebs, Supplemental Oxygen Consulted Pulmonology Plan to continue IV diuretics--started today as per Court orders (4) Acute heart failure: Likely Ischemic Cardiomyopathy Acute systolic and diastolic CHF Severe mitral regurgitation Volume overloaded on exam Refuses Lasix or Bumex or Torsemide or any other diuretics Appreciate Cardiology Input Continue Lisinopril Continue Oxygen supplementation PRN Appreciate Palliative Care Input to address goals of Care Refuses PO diuretics Monitor volume status Continue IV diuretics as above (5) Hypoxia: Management as above (6) Mitral regurgitation: Continue current meds (7) Acute hypoxemic respiratory failure: Management as above (8) Cholecystitis, acute: Had multiple episodes of cholecystitis in the past and has refused surgery (schizophrenic paranoia thought to be contributing) Ultrasound reveals evidence of GB wall edema and no gallstones. GB wall thickening also could have been related to edematous state Received Zosyn>>> transitioned to Rocephin and Flagyl>> transitioned to Augmentin and completed the course. Refuses to have surgical evaluation during this admission as well (9) HTN (hypertension): continue current meds (10) Open wound of right lower extremity: Chronic, wrapped. 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 (12) Lymphedema of right lower extremity: chronic (13) Noncompliance: Paranoid schizophrenia and homelessness likely contributing Case management is engaging with office of aging (14) DVT prophylaxis: Xarelto held-Re: Recurrent Epistaxis: SCDs for now Code Status Full Code Disposition To be determined Subjective Patient is seen and examined present Anxious intermittently No significant change from yesterday On 5 liters of supplemental Oxygen Reports shortness of breath Ongoing chronic hallucinations Has Chest pain --Intermittently No other complaints Review of Systems Review of Systems: All systems reviewed & are unremarkable except as noted in HPI & below Physical Exam Physical Exam: Physical Exam: Vitals signs as noted above General Appearance:Chronic ill appearing, disheveled, + respiratory distress Head: normocephalic, Atraumatic Eyes: normal inspection, EOMI Neck: supple, Trachea midline Respiratory/Chest: B/L air entry, + B/L crackles Cardiovascular: S1, S2, No murmur Abdomen/GI:Soft, non tender, Bowel sounds present Extremities/Musculoskelatal:normal inspection, no edema, R leg in dressing Neurologic/Psych:AAOX3, grossly no focal neurological deficits, + paranoid delusions Skin: normal color, warm Results & Data Vital Signs (Past 12 Hours) Vital Signs Temp Pulse Resp BP Pulse Ox 07/09/19 15:02 36.2 C L 96 H 18 127/83 93 07/09/19 11:32 36.4 C L 101 H 19 165/93 H 94 07/09/19 07:33 36.6 C 102 H 20 149/91 H 94 Laboratory Results Short CBC 07/09/19 Range/Units 06:06 WBC 7.02 (4.8-10.8) K/uL Hgb 11.9 L (14.0-18.0) g/dL Hct 38.4 L (42-52) % Plt Count 227 (130-400) K/uL BMP 07/09/19 06:06 Sodium 145 Potassium 3.9 Chloride 109 H Carbon Dioxide 29 BUN 21 H Creatinine 0.81 Glucose 86 Calcium 8.1 L
[2019-07-10] MEDS: TRAMADOL HCL 50 MG TABLET PO PRN ×4 (00:40→16:36)
[2019-07-10] MEDS ORDERED: MAGNESIUM SULFATE / D5W 1 GM/100 ML BAG IV STA (01:56)
[2019-07-10] MEDS ORDERED: AMIODARONE IV BOLUS / DRIP IV STA (02:14)
[2019-07-10] MEDS ORDERED: AMIODARONE / D5W 150 MG/100 ML BAG IV STA (02:14)
[2019-07-10] MEDS ORDERED: AMIODARONE / D5W 360 MG/200 ML BAG IV SCH (02:15)
[2019-07-10 02:23] LABS: Basophils # (auto) 0.01 K/uL (0-0.2); Basophils % (auto) 0.2 %; Eosinophils # (auto) 0.14 K/uL (0-0.5); Eosinophils % (auto) 2.2 %; Hematocrit (blood only) 33.8 % (42-52); Hemoglobin 10.7 g/dL (14.0-18.0); Immature Granulocytes # (auto) 0.01 K/uL (0.00-0.02); Immature Granulocytes % (auto) 0.2 %; Lymphocytes # (auto) 0.56 K/uL (1.2-3.4); Lymphocytes % (auto) 8.8 %; Mean Corpuscular Hemoglobin 28.8 pg (25-34); Mean Corpuscular Hgb Conc 31.7 g/dL (32-36); Mean Corpuscular Volume 91.1 fL (80-100); Mean Platelet Volume 9.1 fL (7.4-10.4); Neutrophils # (auto) 4.96 K/uL (1.4-6.5); Neutrophils % (auto) 77.6 %; Platelet Count 216 K/uL (130-400); RDW Standard Deviation 53.1 fL (36.4-46.3); Red Blood Count 3.71 M/uL (4.7-6.1); White Blood Count 6.38 K/uL (4.8-10.8)
[2019-07-10 02:38] LABS: BUN Creatinine Ratio 26.1 (10-20); Calcium 7.8 mg/dl (8.5-10.1); Creatinine Clr Calc Pharmacy 70.3 ml/min; Est GFR (African American) 102.5; Est GFR (Non-African American) 88.5; Magnesium 2.1 mg/dl (1.8-2.4); Potassium 3.5 mmol/L (3.5-5.1)
[2019-07-10 02:48] LABS: Troponin I 0.766 ng/ml (0-0.045)
[2019-07-10] MEDS ORDERED: POTASSIUM CHLORIDE 20 MEQ TABCR PO STA (03:39)
[2019-07-10] MEDS: AMIODARONE / D5W 360 MG/200 ML BAG IV SCH ×2 (08:49→18:43)
--- NOTE | 2019-07-10 09:06 | Hospitalist Progress Note ---
Date of Service July 10, 2019 Subjective Was notified that patinet having wide complex tachycardia. Patient mostly asympt omatic. EKG shows WCT with rate of 140. QTC 583. hx of a fib.Received iv lasix earlier. Started on iv [id number]. Patient then had short run of v tach and converted to sinus rhythm. Electrolyes ok. Started on iv amiodarone drip after conforming from cardiology. Results & Data Vital Signs (Past 12 Hours) Vital Signs Temp Pulse Pulse Resp BP Pulse Ox 07/10/19 07:07 36.4 C L 62 18 102/66 96 07/10/19 04:00 36.7 C 58 L 18 107/68 96 07/10/19 02:44 63 07/09/19 23:00 36.5 C 65 19 117/66 96
[2019-07-10] MEDS: ATORVASTATIN 40 MG TAB PO SCH (10:45)
[2019-07-10] MEDS: CARVEDILOL 12.5 MG TAB PO SCH ×2 (10:45→20:11)
[2019-07-10] MEDS: PRASugrel TAB 10 MG TAB PO SCH (10:47)
[2019-07-10] MEDS: LISINOPRIL 5 MG TAB PO SCH (10:47)
[2019-07-10] MEDS: FUROSEMIDE 40 MG in SYRINGE 0 ML IV SCH (10:47)
[2019-07-10] MEDS: ASPIRIN 81 MG ECTAB PO SCH (10:47)
--- NOTE | 2019-07-10 11:30 | Hospitalist Progress Note ---
Date of Service July 10, 2019 Assessment & Plan (1) Paranoid schizophrenia: Ongoing hallucinations. Currently not on any medications Psychiatry following Has been refusing treatment Office of aging involved Placed "order for patient to receive treatment in the hospital and placement p ost discharge" Court hearing on July 11 at 1500 Epistaxis: In setting of Aspirin/Prasugrel use for recent cardiac stent Patient refused any intervention by ENT surgeon Monitor H&H Xarelto held No bleeding issues currently Monitor CBC (2) Paroxysmal atrial fibrillation: Continue Coreg Xarelto held secondary to large back wound and intermittent epistaxis Initially thought to be started on amiodarone, however not started as patient is non complaint and is also difficult to monitor Lopressor PRN Plan to resume Xarelto as able (3) STEMI (ST elevation myocardial infarction): Inferior STEMI S/P BMS placement. Ventricular fibrillation during cath procedure requiring defibrillation attempt ECHO: EF 40-45% with acute MR which could be related to STEMI. Patient refuses Plavix/DAPT (schizophrenic paranoia could be contributing) Continue Prasugrel Intermittently takes aspirin Non complaint with statin Also on Coreg, Lisinopril No plan for repeat intervention if needed, given noncompliance Acute Hypoxemic respiratory failure Likely due to CHF/Ischemic Cardiomyopathy S/P Extubation this hospitalization Refuses diuretics adamantly Claustrophobic to Oxymask/BiPAP use Continue Nebs, Supplemental Oxygen Consulted Pulmonology Plan to continue IV diuretics--started today as per Court orders (4) Acute heart failure: Likely Ischemic Cardiomyopathy Acute systolic and diastolic CHF Severe mitral regurgitation Refuses Lasix or Bumex or Torsemide or any other diuretics Continue Lisinopril Continue Oxygen supplementation PRN Appreciate Palliative Care Input to address goals of Care Refuses PO diuretics Monitor volume status Continue IV diuretics as above (5) Hypoxia: Management as above (6) Mitral regurgitation: Continue current meds (7) Acute hypoxemic respiratory failure: Management as above (8) Cholecystitis, acute: Had multiple episodes of cholecystitis in the past and has refused surgery (schizophrenic paranoia thought to be contributing) Ultrasound reveals evidence of GB wall edema and no gallstones. GB wall thickening also could have been related to edematous state Received Zosyn>>> transitioned to Rocephin and Flagyl>> transitioned to Augmentin and completed the course. Refuses to have surgical evaluation during this admission as well (9) HTN (hypertension): continue current meds (10) Open wound of right lower extremity: Chronic, wrapped. 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 (12) Lymphedema of right lower extremity: chronic (13) Noncompliance: Paranoid schizophrenia and homelessness likely contributing Case management is engaging with office of aging (14) DVT prophylaxis: Xarelto held-Re: Recurrent Epistaxis: SCDs for now Code Status Full Code Disposition To be determined Labs reviewed ROS-No Headache, No Visual Changes, No Nausea, No Vomiting, No Fever, No Chills, No Neck Pain or Stiffness, No Chest Pain, No Palpitations, No SOB, No LOCK, No Cough, No Sputum, No Wheezing, No Abdominal Pain, No Diarrhea, No Hematemesis, No Hemoptysis, No Unexpected Weight Loss, No Flank pain, No Melena, No Hematochezia, No Frequency, No Urgency, No Burning, No Hematuria, No Rashes, No Diaphoresis. Appetite is Normal Physical Exam Gen-AAO x 3, NAD, Afebrile Head-NCAT, EOMI, PERRLA, Anicteric Sclera, No Posterior Pharyngeal Erythema Neck-Supple, No JVD, No Thyromegaly, No Masses, No LAD, No Bruits Lungs-Clear to Auscultation Bilaterally, No Rales, No Rhonchi, No Wheezing, No Crepitus Chest-No S4, +S1, +S2, No S3, No Murmurs, No Rubs, No Gallops, No Ectopy Abdomen-Soft, Bowel Sounds Present, Non Tender, Non Distended, No Hepatomegaly, No Splenomegaly, No Palpable Masses, No Rebound, No Rigidity, No Guarding Musculoskeletal-Full Range of Motion Bilaterally, No CVAT Extremities-No Cyanosis, No Clubbing, No Edema Nuero-Cranial Nerves II-XII grossly intact, Motor WNL, DTRs WNL, Strength WNL, Non Focal Psych-Normal Mood Results & Data Vital Signs (Past 12 Hours) Vital Signs Temp Pulse Pulse Resp BP Pulse Ox 07/10/19 11:12 36.8 C 62 18 106/70 100 07/10/19 07:07 36.4 C L 62 18 102/66 96 07/10/19 04:00 36.7 C 58 L 18 107/68 96 07/10/19 02:44 63
--- NOTE | 2019-07-10 13:38 | XRay Report ---
XR chest 1V portable HISTORY: 69 years-old Male Hypoxia acute hypoxia COMPARISON: Chest radiograph 07/08/2019 TECHNIQUE: Portable AP view of the chest FINDINGS: Cardiomediastinal and hilar silhouettes are unchanged. Extensive bilateral mixed interstitial and bennett eolar opacities redemonstrated and have mildly improved from comparison. Small pleural effusions pers ist, slightly decreased in size on the right. Improved aeration of the lung bases. Suspected emphysem a. Bones appear grossly intact. IMPRESSION: 1. Extensive bilateral mixed interstitial and alveolar opacities have mildly improved from comparison . 2. Bilateral pleural effusions, slightly decreased in size on the right. The above report was generated using voice recognition software. It may contain grammatical, syntax o r spelling errors. Electronically signed by: Shaun Dorantes M.D. 07/10/2019 1:37 PM
--- NOTE | 2019-07-10 20:14 | Pulmonology Progress Note ---
Date of Service July 10, 2019 Assessment & Plan (1) Hypoxia: Multifactorial including recent WI with demonstrated severe mitral regurgitation and pulmonary edema on echocardiogram Patient now receiving furosemide Post diuresis x-ray shows improvement to both pleural effusions as well as i nterstitial edema Continue diuresis Continue to follow clinically (2) Pleural effusion: Small to moderate bilateral pleural effusions on admission. Diuresis x-ray shows improvement to the bilateral pleural effusions with slight decrease on the right. No indication for intervention with thoracentesis at this time Recommend continue diuresis and follow expectantly Continue supplemental oxygen as required Patient may require ongoing supplemental O2 via nasal cannula secondary to acute cardiac insult Would hope for continued diuresis and improvement in pulmonary edema (3) DVT prophylaxis: Continue aspirin and Xarelto Lymphedema to the right lower extremity History of DVT No indication of acute change Ambulate as tolerated Continue monitor clinically Thank you for including us in the care of this patient. Please refer to Dr. Batres's addendum for further recommendations. At this point we will sign off. Please feel free to reconsult as needed for pulmonary concerns. Subjective Patient now receiving Lasix IV Adequate urine output Patient reports that breathing seems to be improved Continue lymphedema of the right lower extremity No edema of the left lower extremity Patient denies any pain to the lower extremities Positive for pain to the buttocks from pressure sores. Review of Systems Review of Systems: All systems reviewed & are unremarkable except as noted in HPI & below Denies fever, chills, sweats, rigors No significant sputum No hemoptysis No chest pain or flank pain Physical Exam Physical Exam: GENERAL : No acute distress. Pleasant. Appears cachectic EYES: No icterus, gaze conjugate NOSE: No evidence of epistaxis MOUTH: No lesions or candidiasis NECK: Supple LUNGS: Slight decrease of breath sounds bilaterally. No rhonchi or bronchospasm. Generally clear to auscultation HEART: Regular, rate controlled ABDOMEN: Soft, NT, ND, BS Present EXTREMITIES: Positive for right lower extremity lymphedema. Dressing dry and in place to right lower extremity. No left LE edema NEURO: Awake and alert. No obvious focal deficits appreciated Results & Data Vital Signs (Past 12 Hours) Vital Signs Temp Pulse Pulse Resp BP Pulse Ox 07/10/19 19:32 36.6 C 61 17 94/57 L 97 07/10/19 16:12 36.4 C L 56 L 21 91/58 L 97 07/10/19 16:00 59 L 07/10/19 11:12 36.8 C 62 18 106/70 100 Laboratory Results 07/10/19 02:11 07/10/19 02:10 Diagnostic Findings XR chest 1V portable HISTORY: 69 years-old Male Hypoxia acute hypoxia COMPARISON: Chest radiograph 07/08/2019 TECHNIQUE: Portable AP view of the chest FINDINGS: Cardiomediastinal and hilar silhouettes are unchanged. Extensive bilateral mixed interstitial and alveolar opacities redemonstrated and have mildly improved from comparison. Small pleural effusions persist, slightly decreased in size on the right. Improved aeration of the lung bases. Suspected emphysema. Bones appear grossly intact. IMPRESSION: 1. Extensive bilateral mixed interstitial and alveolar opacities have mildly improved from comparison. 2. Bilateral pleural effusions, slightly decreased in size on the right. The above report was generated using voice recognition software. It may contain grammatical, syntax or spelling errors. Electronically signed by: Shaun Dorantes M.D. 07/10/2019 1:37 PM PG Care Time/CCT Total # of Minutes Spent Total Time Spent with Patient: Total time spent is greater than 50% in coordi nation of care (as documented) at patient's floor/unit and/or counseling patient:25
[2019-07-11] MEDS: TRAMADOL HCL 50 MG TABLET PO PRN ×5 (00:09→23:24)
[2019-07-11] MEDS: AMIODARONE / D5W 360 MG/200 ML BAG IV SCH (05:52)
[2019-07-11] MEDS: FUROSEMIDE 40 MG in SYRINGE 0 ML IV SCH (08:16)
[2019-07-11] MEDS: LISINOPRIL 5 MG TAB PO SCH (08:55)
[2019-07-11] MEDS: CARVEDILOL 12.5 MG TAB PO SCH ×2 (08:55→20:36)
[2019-07-11] MEDS: ASPIRIN 81 MG ECTAB PO SCH (08:57)
[2019-07-11] MEDS: ATORVASTATIN 40 MG TAB PO SCH (08:57)
[2019-07-11] MEDS: PRASugrel TAB 10 MG TAB PO SCH (08:58)
--- NOTE | 2019-07-11 11:17 | Hospitalist Progress Note ---
Date of Service July 11, 2019 Assessment & Plan (1) Paranoid schizophrenia: Ongoing hallucinations. Currently not on any medications Psychiatry following Has been refusing treatment Office of aging involved Placed "order for patient to receive treatment in the hospital and placement p ost discharge" Court hearing today Epistaxis: In setting of Aspirin/Prasugrel use for recent cardiac stent Patient refused any intervention by ENT surgeon Monitor H&H Xarelto held No bleeding issues currently Monitor CBC (2) Paroxysmal atrial fibrillation: Continue Coreg Xarelto held secondary to large back wound and intermittent epistaxis Initially thought to be started on amiodarone, however not started as patient is non complaint and is also difficult to monitor Lopressor PRN Plan to resume Xarelto as able (3) STEMI (ST elevation myocardial infarction): Inferior STEMI S/P BMS placement. Ventricular fibrillation during cath procedure requiring defibrillation attempt ECHO: EF 40-45% with acute MR which could be related to STEMI. Patient refuses Plavix/DAPT (schizophrenic paranoia could be contributing) Continue Prasugrel Intermittently takes aspirin Non complaint with statin Also on Coreg, Lisinopril No plan for repeat intervention if needed, given noncompliance Acute Hypoxemic respiratory failure Likely due to CHF/Ischemic Cardiomyopathy S/P Extubation this hospitalization Refuses diuretics adamantly Claustrophobic to Oxymask/BiPAP use Continue Nebs, Supplemental Oxygen Consulted Pulmonology Plan to continue IV diuretics--started today as per Court orders (4) Acute heart failure: Likely Ischemic Cardiomyopathy Acute systolic and diastolic CHF Severe mitral regurgitation Refuses Lasix or Bumex or Torsemide or any other diuretics Continue Lisinopril Continue Oxygen supplementation PRN Appreciate Palliative Care Input to address goals of Care Refuses PO diuretics, on IV Monitor volume status Continue IV diuretics as above (5) Hypoxia: Management as above (6) Mitral regurgitation: Continue current meds (7) Acute hypoxemic respiratory failure: Management as above (8) Cholecystitis, acute: Had multiple episodes of cholecystitis in the past and has refused surgery (schizophrenic paranoia thought to be contributing) Ultrasound reveals evidence of GB wall edema and no gallstones. GB wall thickening also could have been related to edematous state Received Zosyn>>> transitioned to Rocephin and Flagyl>> transitioned to Augmentin and completed the course. Refuses to have surgical evaluation during this admission as well (9) HTN (hypertension): continue current meds (10) Open wound of right lower extremity: Chronic, wrapped. 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 (12) Lymphedema of right lower extremity: chronic (13) Noncompliance: Paranoid schizophrenia and homelessness likely contributing Case management is engaging with office of aging (14) DVT prophylaxis: Xarelto held-Re: Recurrent Epistaxis: SCDs for now Code Status Full Code Disposition To be determined Labs reviewed No changes for now ROS-No Headache, No Visual Changes, No Nausea, No Vomiting, No Fever, No Chills, No Neck Pain or Stiffness, No Chest Pain, No Palpitations, No SOB, No LOCK, No Cough, No Sputum, No Wheezing, No Abdominal Pain, No Diarrhea, No Hematemesis, No Hemoptysis, No Unexpected Weight Loss, No Flank pain, No Melena, No Hematochezia, No Frequency, No Urgency, No Burning, No Hematuria, No Rashes, No Diaphoresis. Appetite is Normal Physical Exam Gen-AAO x 3, NAD, Afebrile Head-NCAT, EOMI, PERRLA, Anicteric Sclera, No Posterior Pharyngeal Erythema Neck-Supple, No JVD, No Thyromegaly, No Masses, No LAD, No Bruits Lungs-Clear to Auscultation Bilaterally, No Rales, No Rhonchi, No Wheezing, No Crepitus Chest-No S4, +S1, +S2, No S3, No Murmurs, No Rubs, No Gallops, No Ectopy Abdomen-Soft, Bowel Sounds Present, Non Tender, Non Distended, No Hepatomegaly, No Splenomegaly, No Palpable Masses, No Rebound, No Rigidity, No Guarding Musculoskeletal-Full Range of Motion Bilaterally, No CVAT Extremities-No Cyanosis, No Clubbing, No Edema Nuero-Cranial Nerves II-XII grossly intact, Motor WNL, DTRs WNL, Strength WNL, Non Focal Psych-Normal Mood Results & Data Vital Signs (Past 12 Hours) Vital Signs Temp Pulse Pulse Resp BP BP Pulse Ox 07/11/19 11:10 36.4 C L 57 L 19 105/69 99 07/11/19 07:26 36.4 C L 60 18 103/66 99 07/11/19 07:20 53 L 07/11/19 04:24 36.9 C 66 16 98/61 L 98 07/11/19 00:38 56 L 07/11/19 00:16 36.6 C 59 L 16 85/60 L 100 labs checked
[2019-07-12] MEDS: TRAMADOL HCL 50 MG TABLET PO PRN ×4 (04:35→21:05)
[2019-07-12] MEDS: CARVEDILOL 12.5 MG TAB PO SCH ×2 (08:46→21:06)
[2019-07-12] MEDS: ASPIRIN 81 MG ECTAB PO SCH (08:47)
[2019-07-12] MEDS: LISINOPRIL 5 MG TAB PO SCH (08:48)
[2019-07-12] MEDS: PRASugrel TAB 10 MG TAB PO SCH (08:48)
[2019-07-12] MEDS: ATORVASTATIN 40 MG TAB PO SCH (08:48)
[2019-07-12] MEDS: FUROSEMIDE 40 MG in SYRINGE 0 ML IV SCH (08:49)
--- NOTE | 2019-07-12 10:51 | Hospitalist Progress Note ---
Date of Service July 12, 2019 Assessment & Plan (1) Paranoid schizophrenia: Currently not on any medications Psychiatry following Has been refusing treatment Office of aging involved Placed "order for patient to receive treatment in the hospital and placement post discharge" Court hearing found him competent Epistaxis: In setting of Aspirin/Prasugrel use for recent cardiac stent Patient refused any intervention by ENT surgeon Monitor H&H Xarelto held No bleeding issues currently Monitor CBC (2) Paroxysmal atrial fibrillation: In NSR after Amio gtt, stopped hopefully no need for Xarelto, Continue ASA/Effient (3) STEMI (ST elevation myocardial infarction): Inferior STEMI S/P BMS placement. Ventricular fibrillation during cath procedure requiring defibrillation attempt ECHO: EF 40-45% with acute MR which could be related to STEMI. Patient refuses Plavix/DAPT (schizophrenic paranoia could be contributing) Continue Prasugrel Intermittently takes aspirin Non complaint with statin Also on Coreg, Lisinopril No plan for repeat intervention if needed, given noncompliance Acute Hypoxemic respiratory failure Likely due to CHF/Ischemic Cardiomyopathy S/P Extubation this hospitalization Refuses diuretics adamantly Claustrophobic to Oxymask/BiPAP use Continue Nebs, Supplemental Oxygen Consulted Pulmonology Plan to continue IV diuretics--started today as per Court orders (4) Acute heart failure: Likely Ischemic Cardiomyopathy Acute systolic and diastolic CHF Severe mitral regurgitation Refuses Lasix or Bumex or Torsemide or any other diuretics Continue Lisinopril Continue Oxygen supplementation PRN Appreciate Palliative Care Input to address goals of Care Refuses PO diuretics, on IV Monitor volume status Continue IV diuretics as above (5) Hypoxia: Management as above (6) Mitral regurgitation: Continue current meds (7) Acute hypoxemic respiratory failure: Management as above (8) Cholecystitis, acute: Had multiple episodes of cholecystitis in the past and has refused surgery (schizophrenic paranoia thought to be contributing) Ultrasound reveals evidence of GB wall edema and no gallstones. GB wall thickening also could have been related to edematous state Received Zosyn>>> transitioned to Rocephin and Flagyl>> transitioned to Augmentin and completed the course. Refuses to have surgical evaluation during this admission as well (9) HTN (hypertension): continue current meds (10) Open wound of right lower extremity: Chronic, wrapped. 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 (12) Lymphedema of right lower extremity: chronic (13) Noncompliance: Paranoid schizophrenia and homelessness likely contributing Case management is engaging with office of aging (14) DVT prophylaxis: Xarelto held-Re: Recurrent Epistaxis: SCDs for now Code Status Full Code Disposition To be determined Labs reviewed No changes for now ROS-No Headache, No Visual Changes, No Nausea, No Vomiting, No Fever, No Chills, No Neck Pain or Stiffness, No Chest Pain, No Palpitations, No SOB, No LOCK, No Co ugh, No Sputum, No Wheezing, No Abdominal Pain, No Diarrhea, No Hematemesis, No Hemoptysis, No Unexpected Weight Loss, No Flank pain, No Melena, No Hematochezia, No Frequency, No Urgency, No Burning, No Hematuria, No Rashes, No Diaphoresis. Appetite is Normal Physical Exam Gen-AAO x 3, NAD, Afebrile Head-NCAT, EOMI, PERRLA, Anicteric Sclera, No Posterior Pharyngeal Erythema Neck-Supple, No JVD, No Thyromegaly, No Masses, No LAD, No Bruits Lungs-Clear to Auscultation Bilaterally, No Rales, No Rhonchi, No Wheezing, No Crepitus Chest-No S4, +S1, +S2, No S3, No Murmurs, No Rubs, No Gallops, No Ectopy Abdomen-Soft, Bowel Sounds Present, Non Tender, Non Distended, No Hepatomegaly, No Splenomegaly, No Palpable Masses, No Rebound, No Rigidity, No Guarding Musculoskeletal-Full Range of Motion Bilaterally, No CVAT Extremities-No Cyanosis, No Clubbing, No Edema Nuero-Cranial Nerves II-XII grossly intact, Motor WNL, DTRs WNL, Strength WNL, Non Focal Psych-Normal Mood Results & Data Vital Signs (Past 12 Hours) Vital Signs Temp Pulse Pulse Resp BP Pulse Ox 07/12/19 08:00 75 07/12/19 07:31 36.5 C 60 18 114/65 96 07/12/19 04:04 75 07/12/19 03:48 36.4 C L 60 16 100/60 98 07/11/19 23:44 36.6 C 68 16 91/50 L 99
[2019-07-13] MEDS: TRAMADOL HCL 50 MG TABLET PO PRN ×4 (06:13→21:22)
--- NOTE | 2019-07-13 10:14 | Hospitalist Progress Note ---
Date of Service July 13, 2019 Assessment & Plan (1) Paranoid schizophrenia: Currently not on any medications Psychiatry following Has been refusing treatment Office of aging involved Placed "order for patient to receive treatment in the hospital and placement post discharge" Court hearing found him competent Epistaxis: In setting of Aspirin/Prasugrel use for recent cardiac stent Patient refused any intervention by ENT surgeon Monitor H&H Xarelto held No bleeding issues currently Monitor CBC (2) Paroxysmal atrial fibrillation: In NSR after Amio gtt, stopped, hopefully no need for Xarelto, Continue ASA/Effient (3) STEMI (ST elevation myocardial infarction): Inferior STEMI S/P BMS placement. Ventricular fibrillation during cath procedure requiring defibrillation attempt ECHO: EF 40-45% with acute MR which could be related to STEMI. Patient refuses Plavix/DAPT (schizophrenic paranoia could be contributing) Continue Prasugrel Intermittently takes aspirin Non complaint with statin Also on Coreg, Lisinopril No plan for repeat intervention if needed, given noncompliance Acute Hypoxemic respiratory failure Likely due to CHF/Ischemic Cardiomyopathy S/P Extubation this hospitalization Refuses diuretics adamantly Claustrophobic to Oxymask/BiPAP use Continue Nebs, Supplemental Oxygen (4) Acute heart failure: Likely Ischemic Cardiomyopathy Acute systolic and diastolic CHF Severe mitral regurgitation Refuses Lasix or Bumex or Torsemide or any other diuretics Continue Lisinopril Continue Oxygen supplementation PRN Appreciate Palliative Care Input to address goals of Care Refuses PO diuretics, on IV Monitor volume status Continue IV diuretics as above (5) Hypoxia: Management as above (6) Mitral regurgitation: Continue current meds (7) Acute hypoxemic respiratory failure: Management as above (8) Cholecystitis, acute: Had multiple episodes of cholecystitis in the past and has refused surgery (schizophrenic paranoia thought to be contributing) Ultrasound reveals evidence of GB wall edema and no gallstones. GB wall thickening also could have been related to edematous state Received Zosyn>>> transitioned to Rocephin and Flagyl>> transitioned to Augmentin and completed the course. Refuses to have surgical evaluation during this admission as well (9) HTN (hypertension): continue current meds (10) Open wound of right lower extremity: Chronic, wrapped. 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 (12) Lymphedema of right lower extremity: chronic (13) Noncompliance: Paranoid schizophrenia and homelessness likely contributing Case management is engaging with office of aging (14) DVT prophylaxis: Xarelto held-Re: Recurrent Epistaxis: SCDs for now Code Status Full Code Disposition [facility] Labs reviewed No changes for now ROS-No Headache, No Visual Changes, No Nausea, No Vomiting, No Fever, No Chills, No Neck Pain or Stiffness, No Chest Pain, No Palpitations, No SOB, No LOCK, No Cough, No Sputum, No Wheezing, No Abdominal Pain, No Diarrhea, No Hematemesis, No Hemoptysis, No Unexpected Weight Loss, No Flank pain, No Melena, No Hematochezia, No Frequency, No Urgency, No Burning, No Hematuria, No Rashes, No Diaphoresis. Appetite is Normal Physical Exam Gen-AAO x 3, NAD, Afebrile Head-NCAT, EOMI, PERRLA, Anicteric Sclera, No Posterior Pharyngeal Erythema Neck-Supple, No JVD, No Thyromegaly, No Masses, No LAD, No Bruits Lungs-Clear to Auscultation Bilaterally, No Rales, No Rhonchi, No Wheezing, No Crepitus Chest-No S4, +S1, +S2, No S3, No Murmurs, No Rubs, No Gallops, No Ectopy Abdomen-Soft, Bowel Sounds Present, Non Tender, Non Distended, No Hepatomegaly, No Splenomegaly, No Palpable Masses, No Rebound, No Rigidity, No Guarding Musculoskeletal-Full Range of Motion Bilaterally, No CVAT Extremities-No Cyanosis, No Clubbing, No Edema Nuero-Cranial Nerves II-XII grossly intact, Motor WNL, DTRs WNL, Strength WNL, Non Focal Psych-Normal Mood Results & Data Vital Signs (Past 12 Hours) Vital Signs Temp Pulse Pulse Resp BP Pulse Ox 07/13/19 07:30 58 L 07/13/19 07:29 36.7 C 63 23 100/61 95 07/13/19 00:34 63 07/12/19 23:24 36.6 C 62 19 94/57 L 95
[2019-07-13] MEDS: PRASugrel TAB 10 MG TAB PO SCH (10:49)
[2019-07-13] MEDS: CARVEDILOL 12.5 MG TAB PO SCH ×2 (10:50→20:22)
[2019-07-13] MEDS: FUROSEMIDE 40 MG in SYRINGE 0 ML IV SCH (10:50)
[2019-07-13] MEDS: ASPIRIN 81 MG ECTAB PO SCH (10:50)
[2019-07-13] MEDS: ATORVASTATIN 40 MG TAB PO SCH (10:51)
[2019-07-13] MEDS: LISINOPRIL 5 MG TAB PO SCH (10:51)
--- NOTE | 2019-07-13 14:41 | XRay Report ---
XR sacrum only CLINICAL HISTORY: Weakness. Sacral pain. COMPARISON: CT of the abdomen and pelvis January 21, 2017. FINDINGS: No sacral fracture is identified. There is no radiographic evidence of osteomyelitis withi n the sacrum. Right sacroiliac joint fusion is noted as shown on CT of January 21, 2017. IMPRESSION: 1. No sacral fracture identified by radiography. 2. Fusion of the right sacroiliac joint, as shown on earlier CT. Electronically signed by: Terence Donahue M.D. 07/13/2019 2:40 PM
[2019-07-14] MEDS: PRASugrel TAB 10 MG TAB PO SCH (07:56)
[2019-07-14] MEDS: TRAMADOL HCL 50 MG TABLET PO PRN ×4 (07:58→22:33)
[2019-07-14] MEDS: ATORVASTATIN 40 MG TAB PO SCH (08:00)
[2019-07-14] MEDS: LISINOPRIL 5 MG TAB PO SCH (08:00)
[2019-07-14] MEDS: ASPIRIN 81 MG ECTAB PO SCH (08:00)
[2019-07-14] MEDS: CARVEDILOL 12.5 MG TAB PO SCH ×2 (08:00→20:03)
[2019-07-14] MEDS: FUROSEMIDE 40 MG in SYRINGE 0 ML IV SCH (08:00)
[2019-07-14 09:08] LABS: Hematocrit (blood only) 34.8 % (42-52); Mean Corpuscular Hemoglobin 29.3 pg (25-34); Mean Corpuscular Hgb Conc 31.6 g/dL (32-36); Mean Corpuscular Volume 92.6 fL (80-100); Mean Platelet Volume 9.6 fL (7.4-10.4); Platelet Count 204 K/uL (130-400); RDW Coefficient of Variation 15.7 % (11.5-14.5); Red Blood Count 3.76 M/uL (4.7-6.1); White Blood Count 6.15 K/uL (4.8-10.8)
[2019-07-14 09:19] LABS: INR 1.2 (0.9-1.1); Prothrombin Time 11.8 Seconds (9.0-12.0)
[2019-07-14 09:38] LABS: BUN Creatinine Ratio 24.3 (10-20); Calcium 8.4 mg/dl (8.5-10.1); Creatinine Clr Calc Pharmacy 60.4 ml/min; Est GFR (African American) 96.8; Est GFR (Non-African American) 83.6; Potassium 4.2 mmol/L (3.5-5.1)
[2019-07-14 09:41] LABS: Albumin Globulin Ratio 0.5 (0.9-2); Bilirubin,Total 1.2 mg/dl (0.2-1); Globulin 3.8 gm/dl (2.5-4.0); Total Protein 5.8 gm/dl (6.4-8.2)
--- NOTE | 2019-07-14 09:56 | Hospitalist Progress Note ---
Date of Service July 14, 2019 Assessment & Plan (1) Paranoid schizophrenia: Currently not on any medications Psychiatry following Has been refusing treatment Office of aging involved Placed "order for patient to receive treatment in the hospital and placement post discharge" Court hearing found him competent Epistaxis: In setting of Aspirin/Prasugrel use for recent cardiac stent Patient refused any intervention by ENT surgeon Monitor H&H Xarelto held No bleeding issues currently Monitor CBC (2) Paroxysmal atrial fibrillation: In NSR after Amio gtt, stopped, hopefully no need for Xarelto, Continue ASA/Effient (3) STEMI (ST elevation myocardial infarction): Inferior STEMI S/P BMS placement. Ventricular fibrillation during cath procedure requiring defibrillation attempt ECHO: EF 40-45% with acute MR which could be related to STEMI. Patient refuses Plavix/DAPT (schizophrenic paranoia could be contributing) Continue Prasugrel Intermittently takes aspirin Non complaint with statin Also on Coreg, Lisinopril No plan for repeat intervention if needed, given noncompliance Acute Hypoxemic respiratory failure Likely due to CHF/Ischemic Cardiomyopathy S/P Extubation this hospitalization Refuses diuretics adamantly Claustrophobic to Oxymask/BiPAP use Continue Nebs, Supplemental Oxygen (4) Acute heart failure: Likely Ischemic Cardiomyopathy Acute systolic and diastolic CHF Severe mitral regurgitation Refuses Lasix or Bumex or Torsemide or any other diuretics Continue Lisinopril Continue Oxygen supplementation PRN Appreciate Palliative Care Input to address goals of Care Refuses PO diuretics, Stop IV Lasix Monitor volume status (5) Hypoxia: Management as above (6) Mitral regurgitation: Continue current meds (7) Acute hypoxemic respiratory failure: Management as above (8) Cholecystitis, acute: Had multiple episodes of cholecystitis in the past and has refused surgery (schizophrenic paranoia thought to be contributing) Ultrasound reveals evidence of GB wall edema and no gallstones. GB wall thickening also could have been related to edematous state Received Zosyn>>> transitioned to Rocephin and Flagyl>> transitioned to Augm entin and completed the course. Refuses to have surgical evaluation during this admission as well (9) HTN (hypertension): continue current meds (10) Open wound of right lower extremity: Chronic, wrapped. 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 (12) Lymphedema of right lower extremity: chronic (13) Noncompliance: Paranoid schizophrenia and homelessness likely contributing Case management is engaging with office of aging (14) DVT prophylaxis: Xarelto held-Re: Recurrent Epistaxis: SCDs for now Code Status Full Code Disposition [facility] Labs reviewed No changes for now ROS-No Headache, No Visual Changes, No Nausea, No Vomiting, No Fever, No Chills, No Neck Pain or Stiffness, No Chest Pain, No Palpitations, No SOB, No LOCK, No Cough, No Sputum, No Wheezing, No Abdominal Pain, No Diarrhea, No Hematemesis, No Hemoptysis, No Unexpected Weight Loss, No Flank pain, No Melena, No Hematochezia, No Frequency, No Urgency, No Burning, No Hematuria, No Rashes, No Diaphoresis. Appetite is Normal, Weak Physical Exam Gen-AAO x 3, NAD, Afebrile Head-NCAT, EOMI, PERRLA, Anicteric Sclera, No Posterior Pharyngeal Erythema Neck-Supple, No JVD, No Thyromegaly, No Masses, No LAD, No Bruits Lungs-Clear to Auscultation Bilaterally, No Rales, No Rhonchi, No Wheezing, No Crepitus Chest-No S4, +S1, +S2, No S3, No Murmurs, No Rubs, No Gallops, No Ectopy Abdomen-Soft, Bowel Sounds Present, Non Tender, Non Distended, No Hepatomegaly, No Splenomegaly, No Palpable Masses, No Rebound, No Rigidity, No Guarding Musculoskeletal-Full Range of Motion Bilaterally, No CVAT Extremities-No Cyanosis, No Clubbing, No Edema Nuero-Cranial Nerves II-XII grossly intact, Motor WNL, DTRs WNL, Strength WNL, Non Focal Psych-Normal Mood Results & Data Vital Signs (Past 12 Hours) Vital Signs Temp Pulse Pulse Resp BP Pulse Ox 07/14/19 08:00 36.6 C 65 20 119/74 97 07/14/19 07:29 65 07/14/19 03:00 36.7 C 68 16 120/73 96 07/13/19 23:00 36.8 C 69 18 99/69 L 95 Current Diagnoses Superficial mycosis, unspecified (06/15/19) Anemia, unspecified (06/15/19) Hypothyroidism, unspecified (06/15/19) Hypocalcemia (06/15/19) Acidosis (06/15/19) Hypokalemia (06/15/19) Nicotine dependence, unspecified, uncomplicated (06/15/19) Paranoid schizophrenia (06/15/19) Essential (primary) hypertension (06/15/19) ST elevation (STEMI) myocardial infarction involving other coronary artery of inferior wall (06/15/19) ST elevation (STEMI) myocardial infarction of unspecified site (06/15/19) Acute myocardial infarction, unspecified (06/15/19) Acute ischemic heart disease, unspecified (06/15/19) Nonrheumatic mitral (valve) insufficiency (06/15/19) Atrioventricular block, complete (06/15/19) Paroxysmal atrial fibrillation (06/15/19) Unspecified atrial fibrillation (06/15/19) Ventricular premature depolarization (06/15/19) Heart failure, unspecified (06/15/19) Lymphedema, not elsewhere classified (06/15/19) Pleural effusion, not elsewhere classified (06/15/19) Acute respiratory failure with hypoxia (06/15/19) Respiratory failure, unspecified with hypoxia (06/15/19) Acute cholecystitis (06/15/19) Pressure ulcer of sacral region, stage 1 (06/15/19) Epistaxis (06/15/19) Acute respiratory distress (06/15/19) Chest pain, unspecified (06/15/19) Hypoxemia (06/15/19) Stupor (06/15/19) Hyperglycemia, unspecified (06/15/19) Unspecified open wound, right lower leg, initial encounter (06/15/19) Encounter for prophylactic measures, unspecified (06/15/19) Other specified counseling (06/15/19) Other specified health status (06/15/19) Personal history of malignant neoplasm of testis (06/15/19) Personal history of other mental and behavioral disorders (06/15/19) Personal history of other venous thrombosis and embolism (06/15/19) Personal history of other diseases of the circulatory system (06/15/19) Acquired absence of other genital organ(s) (06/15/19) Patient's noncompliance with other medical treatment and regimen (06/15/19) Allergies horse dander Allergy (Unknown, Verified 03/02/17 23:27) HORSE HAIR tetanus toxoid, adsorbed Allergy (Unknown, Verified 03/02/17 23:27) Height/Weight/Isolation Height 5 ft 8 in Weight 56 kg CBC 06/15/19 06/16/19 06/17/19 11:45 01:33 04:00 Carbon Dioxide 15 L 22 20 L BUN 20 H 22 H 33 H 06/18/19 06/21/19 06/24/19 06:01 07:16 07:00 Carbon Dioxide 20 L 22 25 BUN 39 H 35 H 26 H 06/25/19 06/26/19 06/27/19 04:51 05:38 05:42 Carbon Dioxide 25 25 27 BUN 24 H 26 H 26 H 06/28/19 07/01/19 07/02/19 06:00 05:23 05:41 Carbon Dioxide 25 26 27 BUN 28 H 23 H 21 H 07/03/19 07/04/19 07/05/19 21:27 06:52 05:27 Carbon Dioxide 26 29 27 BUN 22 H 20 H 24 H 07/08/19 07/09/19 07/10/19 15:03 06:06 02:10 Carbon Dioxide 27 29 33 H BUN 21 H 21 H 23 H 07/14/19 08:50 Carbon Dioxide 37 H BUN 23 H Chemistry 07/14/19 08:50 Sodium 144 Potassium 4.2 Chloride 104 Carbon Dioxide 37 H Anion Gap 3.0 BUN 23 H Creatinine 0.94 Glucose 89
[2019-07-15 07:07] LABS: Hemoglobin 10.9 g/dL (14.0-18.0); Mean Corpuscular Hemoglobin 28.8 pg (25-34); Mean Corpuscular Hgb Conc 31.1 g/dL (32-36); Mean Corpuscular Volume 92.3 fL (80-100); Mean Platelet Volume 9.9 fL (7.4-10.4); Platelet Count 202 K/uL (130-400); RDW Coefficient of Variation 15.7 % (11.5-14.5); Red Blood Count 3.79 M/uL (4.7-6.1); White Blood Count 6.45 K/uL (4.8-10.8)
[2019-07-15 07:39] LABS: BUN Creatinine Ratio 25.5 (10-20); Calcium 8.1 mg/dl (8.5-10.1); Creatinine Clr Calc Pharmacy 67.5 ml/min; Est GFR (African American) 104.5; Est GFR (Non-African American) 90.2; Potassium 4.2 mmol/L (3.5-5.1)
[2019-07-15 07:42] LABS: Albumin Globulin Ratio 0.5 (0.9-2); Bilirubin,Total 1.4 mg/dl (0.2-1); Globulin 3.7 gm/dl (2.5-4.0); Total Protein 5.7 gm/dl (6.4-8.2)
[2019-07-15] MEDS: CARVEDILOL 12.5 MG TAB PO SCH ×2 (07:50→20:21)
[2019-07-15] MEDS: PRASugrel TAB 10 MG TAB PO SCH (07:50)
[2019-07-15] MEDS: TRAMADOL HCL 50 MG TABLET PO PRN (07:50)
[2019-07-15] MEDS: LISINOPRIL 5 MG TAB PO SCH (07:51)
[2019-07-15] MEDS: ATORVASTATIN 40 MG TAB PO SCH (07:51)
[2019-07-15] MEDS: ASPIRIN 81 MG ECTAB PO SCH (07:51)
--- NOTE | 2019-07-15 07:53 | Hospitalist Progress Note ---
Date of Service July 15, 2019 Assessment & Plan (1) Paranoid schizophrenia: Currently not on any medications Psychiatry following Has been refusing treatment Office of aging involved Placed "order for patient to receive treatment in the hospital and placement post discharge" Court hearing found him competent Epistaxis: In setting of Aspirin/Prasugrel use for recent cardiac stent Patient refused any intervention by ENT surgeon Monitor H&H Xarelto held No bleeding issues currently Monitor CBC (2) Paroxysmal atrial fibrillation: In NSR after Amio gtt, stopped, hopefully no need for Xarelto, Continue ASA/Effient (3) STEMI (ST elevation myocardial infarction): +CP today, EKG, CXR, Trops ordered, Hold dc Inferior STEMI S/P BMS placement. Ventricular fibrillation during cath procedure requiring defibrillation attempt ECHO: EF 40-45% with acute MR which could be related to STEMI. Patient refuses Plavix/DAPT (schizophrenic paranoia could be contributing) Continue Prasugrel Intermittently takes aspirin Non complaint with statin Also on Coreg, Lisinopril No plan for repeat intervention if needed, given noncompliance Acute Hypoxemic respiratory failure Likely due to CHF/Ischemic Cardiomyopathy S/P Extubation this hospitalization Refuses diuretics adamantly Claustrophobic to Oxymask/BiPAP use Continue Nebs, Supplemental Oxygen (4) Acute heart failure: Likely Ischemic Cardiomyopathy Acute systolic and diastolic CHF Severe mitral regurgitation Refuses Lasix or Bumex or Torsemide or any other diuretics Continue Lisinopril Continue Oxygen supplementation PRN Appreciate Palliative Care Input to address goals of Care Refuses PO diuretics, off IV Lasix Monitor volume status (5) Hypoxia: Management as above (6) Mitral regurgitation: Continue current meds (7) Acute hypoxemic respiratory failure: Management as above (8) Cholecystitis, acute: Had multiple episodes of cholecystitis in the past and has refused surgery (schizophrenic paranoia thought to be contributing) Ultrasound reveals evidence of GB wall edema and no gallstones. GB wall thickening also could have been related to edematous state Received Zosyn>>> transitioned to Rocephin and Flagyl>> transitioned to Augmentin and completed the course. Refuses to have surgical evaluation during this admission as well (9) HTN (hypertension): continue current meds (10) Open wound of right lower extremity: Chronic, wrapped. 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 (12) Lymphedema of right lower extremity: chronic (13) Noncompliance: Paranoid schizophrenia and homelessness likely contributing Case management is engaging with office of aging (14) DVT prophylaxis: Xarelto held-Re: Recurrent Epistaxis: SCDs for now Code Status Full Code Disposition [facility] Labs reviewed No changes for now ROS-No Headache, No Visual Changes, No Nausea, No Vomiting, No Fever, No Chills, No Neck Pain or Stiffness, + Chest Pain, No Palpitations, No SOB, No LOCK, No Cough, No Sputum, No Wheezing, No Abdominal Pain, No Diarrhea, No Hematemesis, No Hemoptysis, No Unexpected Weight Loss, No Flank pain, No Melena, No Hematochezia, No Frequency, No Urgency, No Burning, No Hematuria, No Rashes, No Diaphoresis. Appetite is Normal, Weak Physical Exam Gen-AAO x 3, mild distress, Afebrile Head-NCAT, EOMI, PERRLA, Anicteric Sclera, No Posterior Pharyngeal Erythema Neck-Supple, No JVD, No Thyromegaly, No Masses, No LAD, No Bruits Lungs-Clear to Auscultation Bilaterally, No Rales, No Rhonchi, No Wheezing, No Crepitus Chest-No S4, +S1, +S2, No S3, No Murmurs, No Rubs, No Gallops, No Ectopy Abdomen-Soft, Bowel Sounds Present, Non Tender, Non Distended, No Hepatomegaly, No Splenomegaly, No Palpable Masses, No Rebound, No Rigidity, No Guarding Musculoskeletal-Full Range of Motion Bilaterally, No CVAT Extremities-No Cyanosis, No Clubbing, No Edema Nuero-Cranial Nerves II-XII grossly intact, Motor WNL, DTRs WNL, Strength WNL, Non Focal Psych-Normal Mood Results & Data Vital Signs (Past 12 Hours) Vital Signs Temp Pulse Pulse Resp BP Pulse Ox 07/15/19 07:09 36.7 C 72 18 123/75 96 07/15/19 04:28 36.6 C 72 18 131/80 91 07/15/19 00:14 73 07/14/19 23:04 36.3 C L 76 18 125/74 94 Current Diagnoses Superficial mycosis, unspecified (06/15/19) Anemia, unspecified (06/15/19) Hypothyroidism, unspecified (06/15/19) Hypocalcemia (06/15/19) Acidosis (06/15/19) Hypokalemia (06/15/19) Nicotine dependence, unspecified, uncomplicated (06/15/19) Paranoid schizophrenia (06/15/19) Essential (primary) hypertension (06/15/19) ST elevation (STEMI) myocardial infarction involving other coronary artery of inferior wall (06/15/19) ST elevation (STEMI) myocardial infarction of unspecified site (06/15/19) Acute myocardial infarction, unspecified (06/15/19) Acute ischemic heart disease, unspecified (06/15/19) Nonrheumatic mitral (valve) insufficiency (06/15/19) Atrioventricular block, complete (06/15/19) Paroxysmal atrial fibrillation (06/15/19) Unspecified atrial fibrillation (06/15/19) Ventricular premature depolarization (06/15/19) Heart failure, unspecified (06/15/19) Lymphedema, not elsewhere classified (06/15/19) Pleural effusion, not elsewhere classified (06/15/19) Acute respiratory failure with hypoxia (06/15/19) Respiratory failure, unspecified with hypoxia (06/15/19) Acute cholecystitis (06/15/19) Pressure ulcer of sacral region, stage 1 (06/15/19) Epistaxis (06/15/19) Acute respiratory distress (06/15/19) Chest pain, unspecified (06/15/19) Hypoxemia (06/15/19) Stupor (06/15/19) Hyperglycemia, unspecified (06/15/19) Unspecified open wound, right lower leg, initial encounter (06/15/19) Encounter for prophylactic measures, unspecified (06/15/19) Other specified counseling (06/15/19) Other specified health status (06/15/19) Personal history of malignant neoplasm of testis (06/15/19) Personal history of other mental and behavioral disorders (06/15/19) Personal history of other venous thrombosis and embolism (06/15/19) Personal history of other diseases of the circulatory system (06/15/19) Acquired absence of other genital organ(s) (06/15/19) Patient's noncompliance with other medical treatment and regimen (06/15/19) Allergies horse dander Allergy (Unknown, Verified 03/02/17 23:27) HORSE HAIR tetanus toxoid, adsorbed Allergy (Unknown, Verified 03/02/17 23:27) Height/Weight/Isolation Height 5 ft 8 in Weight 56.6 kg Chemistry 07/14/19 07/15/19 08:50 06:23 Sodium 144 143 Potassium 4.2 4.2 Chloride 104 105 Carbon Dioxide 37 H 33 H Anion Gap 3.0 5.0 BUN 23 H 22 H Creatinine 0.94 0.85 Glucose 89 86
--- NOTE | 2019-07-15 08:16 | XRay Report ---
XR chest 1V portable HISTORY: 69 years-old Male cp acute atypical chest pain COMPARISON: Chest radiograph 07/10/2019 TECHNIQUE: Portable AP view of the chest FINDINGS: Cardiac mediastinal and hilar silhouettes are unchanged. Extensive bilateral mixed interstitial and a lveolar opacities are redemonstrated which have not significantly changed from comparison study. Susp ected background emphysema. Bilateral pleural effusions, right greater than left with persistent righ t basilar opacities. Degenerative changes of the shoulders and spine. IMPRESSION: 1. Extensive mixed bilateral interstitial and alveolar opacities appear stable from comparison. 2. Unchanged right greater than left bilateral pleural effusions. The above report was generated using voice recognition software. It may contain grammatical, syntax o r spelling errors. Electronically signed by: Shaun Dorantes M.D. 07/15/2019 8:14 AM
[2019-07-15] MEDS: MoRPHine SULFATE 4 MG/ML 1 ML CARP\\VIAL IV PRN ×3 (11:56→20:22)
[2019-07-16] MEDS: MoRPHine SULFATE 4 MG/ML 1 ML CARP\\VIAL IV PRN ×2 (02:33→08:30)
[2019-07-16 07:17] LABS: Hematocrit (blood only) 33.3 % (42-52); Hemoglobin 10.4 g/dL (14.0-18.0); Mean Corpuscular Hemoglobin 28.8 pg (25-34); Mean Corpuscular Hgb Conc 31.2 g/dL (32-36); Mean Corpuscular Volume 92.2 fL (80-100); Mean Platelet Volume 9.4 fL (7.4-10.4); Platelet Count 175 K/uL (130-400); RDW Coefficient of Variation 15.4 % (11.5-14.5); RDW Standard Deviation 52.2 fL (36.4-46.3); Red Blood Count 3.61 M/uL (4.7-6.1)
[2019-07-16 07:47] LABS: BUN Creatinine Ratio 26.7 (10-20); Calcium 8.3 mg/dl (8.5-10.1); Creatinine Clr Calc Pharmacy 63.5 ml/min; Est GFR (Non-African American) 88.9; Potassium 4.3 mmol/L (3.5-5.1)
[2019-07-16] MEDS: CARVEDILOL 12.5 MG TAB PO SCH (08:29)
[2019-07-16] MEDS: LISINOPRIL 5 MG TAB PO SCH (08:29)
--- NOTE | 2019-07-16 08:29 | Discharge Summary ---
Date of Service July 16, 2019 Admission HPI Per Admitting Provider Mendoza Masterson is a 69-year-old male admitted medically on 06/15/19 with an acute ME. Pt presented to the ED via EMS and underwent a cardiac catheterization with stent placement. In his recovery, patient has reportedly refused several recommended interventions, specifically recommendation for Lasix and aspirin. Pt declined initiation of clopidogrel but was willing to accept prasugrel as an alternative. Psychiatric consultation is requested to assess patient for his refusal of treatment, given his history of schizophrenia. Pt is known to us from previous psychiatric consultations, the most recent available was in 01/2017 for similar concerns. Pt's case was reviewed with psychiatric nurse liaison (see nursing note for full details). Pt was agreeable to consultation and participated appropriately in evaluation. Pt states, "everyday I'm getting better." Pt states that he has been improving, but remains concerned about his status and is hopeful to keep improving. Pt was asked if he is following recommendations from his primary team in order to ensure a healthy recovery. Pt states, "most of it, there are some things I just won't do." Pt clearly states he is not interested in taking aspirin and states his goal is to "maintain normalcy with people." He shares with this provider that he is not interested in taking medications that affect his ability to interaction with others appropriately - "I'm homeless, that's the nature of it. If I start causing trouble, we have a problem." He is not clearly able to explain how the aspirin will affect his ability to socialize, but states he is taking other recommended medication in its place. Pt states, "they've tried some things, I've tried it, but I can't be running around acting stupid. That's not going to work with how I live." Pt was asked about his ability to care for himself outside of the hospital and replies, "I'm worried, I'm still not sure if I can do it. But I should be anyway from my cancer. This place pulled me through. I can keep going." Pt is rather realistic about his homeless status and interventions that are conducive to that lifestyle. He states, "can you imagine a homeless rj carrying a bottle of oxygen around, that's crazy." Pt denies previous history with psychotropic medications and states, "I don't get much money, I'm not going to throw it away on stuff like that when I can power through just fine." Pt states, "they listed me as schizophrenic, that's not true." Pt denies any disorientation or confusion, he does not verbalize any clearly delusional thought content. He denies hallucinations when asked. Pt denies SI/HI and other acute symptoms of psychosis. Pt was asked if he had any safety concerns, which he denied. Pt states that he had previously had housing arranged by [employer] and he continues to look for an efficiency. Pt states, "People take care of me. People know who I am in [place], they bring me money and drop off food." Admission Exam Per Admitting Provider Physical Exam Gen-vented and sedated, disheveled Head-NCAT, Anicteric Sclera, intubated Neck-No JVD, No Thyromegaly, No Masses, No LAD, No Bruits Lungs-Clear to Auscultation Bilaterally, No Rales, No Rhonchi, No Wheezing, No Crepitus Chest-irregularly irregular, with runs of nonsustained V. tach no S4, +S1, +S2, No S3, No Murmurs, No Rubs, No Gallops, positive ectopy Abdomen-Soft, Bowel Sounds Present, Non Tender, Non Distended, No Hepatomegaly, No Splenomegaly, No Palpable Masses, No Rebound, No Rigidity, No Guarding Musculoskeletal-Full Range of Motion Bilaterally, No CVAT Extremities-Severe lymphedema with an ulcer in the right lower extremity, left lower extremity no cyanosis clubbing or edema Nuero-Cranial Nerves II-XII grossly intact, Non Focal Psych-vented and sedated Principal Diagnosis (1) Paranoid schizophrenia: (2) Paroxysmal atrial fibrillation: (3) STEMI (ST elevation myocardial infarction): (4) Acute heart failure: (5) Hypoxia: (6) Mitral regurgitation: (7) Acute hypoxemic respiratory failure: (8) Cholecystitis, acute: (9) HTN (hypertension): (10) Open wound of right lower extremity: (11) Smoker: (12) Lymphedema of right lower extremity: (13) Noncompliance: Discharge Exam Physical Exam Gen-AAO x 3, NAD, Afebrile Head-NCAT, EOMI, PERRLA, Anicteric Sclera, No Posterior Pharyngeal Erythema Neck-Supple, No JVD, No Thyromegaly, No Masses, No LAD, No Bruits Lungs-Clear to Auscultation Bilaterally, No Rales, No Rhonchi, No Wheezing, No Crepitus Chest-No S4, +S1, +S2, No S3, No Murmurs, No Rubs, No Gallops, No Ectopy Abdomen-Soft, Bowel Sounds Present, Non Tender, Non Distended, No Hepatomegaly, No Splenomegaly, No Palpable Masses, No Rebound, No Rigidity, No Guarding Musculoskeletal-Full Range of Motion Bilaterally, No CVAT Extremities-No Cyanosis, No Clubbing, No Edema Nuero-Cranial Nerves II-XII grossly intact, Motor WNL, DTRs WNL, Strength WNL, Non Focal Psych-Normal Mood Discharge Data Allergies Allergy/AdvReac Type Severity Reaction Status Date / Time horse dander Allergy Unknown HORSE HAIR Verified 03/02/17 23:27 tetanus toxoid, adsorbed Allergy Unknown Verified 03/02/17 23:27 Consultations 06/15/19 12:04 ED Decision to Admit Stat 06/15/19 14:32 Consult Case Management - Discharge Planning Routine Consult Rn School Routine 06/26/19 12:11 Consult Psychiatry Routine 06/27/19 12:32 Consult Cardiology Routine 06/30/19 14:16 Consult Wound Care Provider Routine 07/01/19 14:36 Consult Palliative Care Routine 07/03/19 09:51 Consult Otolaryngology (Head and Neck) Routine 07/08/19 14:50 Consult Pulmonology Routine Procedures Performed Operation Date: 06/15/19 12:15 Actual Procedures s Cath, Left with Cors and Vent - Jenaro Jansen MD s Cineradiography w/Routine Exam - Jenaro Jansen MD p Aspiration/PCI w/BMS for Stemi - Jenaro Jasnen MD s Cardiopulmonary Resuscitation - Jenaro Jansen MD Ordered Studies 06/15/19 12:03 CL Cath Imgs for PACS use only Stat 06/16/19 08:04 US abdomen limited Routine 07/03/19 21:00 CT head/brain wo con Urgent 07/03/19 21:02 CT abd pelvis IV con only Urgent Hospital Course (1) Paranoid schizophrenia: Currently not on any medications Psychiatry following Has been refusing treatment Office of aging involved Placed "order for patient to receive treatment in the hospital and placement post discharge" Court hearing found him competent Epistaxis: In setting of Aspirin/Prasugrel use for recent cardiac stent Patient refused any intervention by ENT surgeon Monitor H&H Xarelto held No bleeding issues currently Monitor CBC (2) Paroxysmal atrial fibrillation: In NSR after Amio gtt, stopped, hopefully no need for Xarelto, Continue ASA/Effient (3) STEMI (ST elevation myocardial infarction): +CP / w/u negative Inferior STEMI S/P BMS placement. Ventricular fibrillation during cath procedure requiring defibrillation attempt ECHO: EF 40-45% with acute MR which could be related to STEMI. Patient refuses Plavix/DAPT (schizophrenic paranoia could be contributing) Continue Prasugrel Intermittently takes aspirin Non complaint with statin Also on Coreg, Lisinopril No plan for repeat intervention if needed, given noncompliance Acute Hypoxemic respiratory failure Likely due to CHF/Ischemic Cardiomyopathy S/P Extubation this hospitalization Refuses diuretics adamantly Claustrophobic to Oxymask/BiPAP use Continue Nebs, Supplemental Oxygen (4) Acute heart failure: Likely Ischemic Cardiomyopathy Acute systolic and diastolic CHF Severe mitral regurgitation Refuses Lasix or Bumex or Torsemide or any other diuretics Continue Lisinopril Continue Oxygen supplementation PRN Appreciate Palliative Care Input to address goals of Care Refuses PO diuretics, off IV Lasix Monitor volume status (5) Hypoxia: Management as above (6) Mitral regurgitation: Continue current meds (7) Acute hypoxemic respiratory failure: Management as above (8) Cholecystitis, acute: Had multiple episodes of cholecystitis in the past and has refused surgery (schizophrenic paranoia thought to be contributing) Ultrasound reveals evidence of GB wall edema and no gallstones. GB wall thickening also could have been related to edematous state Received Zosyn>>> transitioned to Rocephin and Flagyl>> transitioned to Augmentin and completed the course. Refuses to have surgical evaluation during this admission as well (9) HTN (hypertension): continue current meds (10) Open wound of right lower extremity: Chronic, wrapped. 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 (12) Lymphedema of right lower extremity: chronic (13) Noncompliance: Paranoid schizophrenia and homelessness likely contributing Case management is engaging with office of aging (14) DVT prophylaxis: Xarelto held-Try SC Heparin if he allows Code Status Full Code Disposition [facility] Today Total Time Total Time Spent Total Time Spent (In Minutes): 60 mins Discharge Plan Discharge Items Patient Disposition: Transfer Snf Fac Reason For Visit: UNRESPONSIVE Discharge Diagnosis: (1) Paranoid schizophrenia: (2) Paroxysmal atrial fibrillation: (3) STEMI (ST elevation myocardial infarction): (4) Acute heart failure: (5) Hypoxia: (6) Mitral regurgitation: (7) Acute hypoxemic respiratory failure: (8) Cholecystitis, acute: (9) HTN (hypertension): (10) Open wound of right lower extremity: (11) Smoker: (12) Lymphedema of right lower extremity: (13) Noncompliance: Condition: Fair Discharge Goals: Improve disease control Activity: Per 'Additional Instructions' section Activity Comment: Ad Emily Lifting: None Bathing: No limitations Sexual Activity: Wait until after follow-up appointment Exercise/Sports: Wait until after follow-up appointment Driving/Machine Use Comment: None Weightbearing: Full weightbearing Non-emergency contact: Primary Care Provider and Certified Coatings Inspector Call non-emergency contact if: you have any medication questions and your symptoms worsen Follow-up/Referrals: PCP,NO [Primary Care Provider] - Diet: Heart Healthy Fluids: 1200ml (5 cups) Addtl Provider Instructions: Refuses a lot of care Wound Eval and Treat Prescriptions: New atorvastatin 40 mg Tablet 80 mg PO QAM Qty: 30 RF: 0 carvedilol 12.5 mg Tablet 12.5 mg PO BID Qty: 30 RF: 0 nitroglycerin [Nitrostat] 0.4 mg Tablet, Sublingual 0.4 mg sublingual PRN PRN (Reason: chest pain) Qty: 30 RF: 0 lisinopril [Zestril] 5 mg Tablet 5 mg PO QAM Qty: 30 RF: 0 prasugrel [Effient] 10 mg Tablet 10 mg PO QAM Qty: 30 RF: 0 aspirin [Ecotrin Low Strength] 81 mg Tablet,Delayed Release (Dr/Ec) 81 mg PO QAM Qty: 30 RF: 0 furosemide [Lasix] 40 mg tablet 40 mg PO DAILY Qty: 30 RF: 0 metoprolol succinate 25 mg capsule,sprinkle,ER 24hr 25 mg PO DAILY Qty: 30 RF: 0 Stand-Alone Forms: My [facility] Skilled Items Patient informed of condition?: Yes DNR: No Discharge Level of Care: Skilled Communicable Disease: No Discharge Prognosis: Stable Admission Data Admit Date/Time: 06/15/19 12:44 Attending Provider: Arnold Britt Admit Provider: Bela Vora Primary Care Provider: PCP,CONSTANCE Other Providers: Bela Vora ; Chelsea Mosley ; Arnold Britt ; Minal Haney ; Octavia Merino ; Jenaro Carter ; Jan Bergman ; Jasmyne Pelletier ; Jenaro Jansen ; Corrine Balderas ; Nikhil Peres ; Maria Antonia Seth ; Avinash Batres Service: Medical
[2019-07-16] MEDS: PRASugrel TAB 10 MG TAB PO SCH (08:30)
== END 2019-07-16 15:57 | DRG 246 ==
LOC: ED 11:18 → CC 12:30 → 1E 12:30 → SUATTDRO 12:44 → 1E 12:44 → 2S 06-17 09:35 → 2W 06-18 14:00 → 2E 06-24 12:09 → 4W 07-03 15:41 → 2S 07-04 00:53 → 2N 07-12 10:46
PROC: CLB.CPR (2019-06-15 12:15)

== ENCOUNTER 2019-09-11 13:48 | Inpatient (IN) ==
[2019-09-11] MEDS ORDERED: ASPIRIN CHEW 324 MG PO STA (14:12)
[2019-09-11 14:39] LABS: Basophils # (auto) 0.01 K/uL (0-0.2); Basophils % (auto) 0.1 %; Hematocrit (blood only) 31.5 % (42-52); Hemoglobin 10.1 g/dL (14.0-18.0); Immature Granulocytes # (auto) 0.01 K/uL (0.00-0.02); Immature Granulocytes % (auto) 0.1 %; Lymphocytes # (auto) 0.43 K/uL (1.2-3.4); Lymphocytes % (auto) 6.1 %; Mean Corpuscular Hemoglobin 28.3 pg (25-34); Mean Corpuscular Hgb Conc 32.1 g/dL (32-36); Mean Corpuscular Volume 88.2 fL (80-100); Mean Platelet Volume 9.1 fL (7.4-10.4); Monocytes # (auto) 0.53 K/uL (0.11-0.59); Monocytes % (auto) 7.6 %; Neutrophils # (auto) 6.03 K/uL (1.4-6.5); Neutrophils % (auto) 86.1 %; Platelet Count 257 K/uL (130-400); RDW Coefficient of Variation 14.9 % (11.5-14.5); RDW Standard Deviation 48.6 fL (36.4-46.3); Red Blood Count 3.57 M/uL (4.7-6.1); White Blood Count 7.01 K/uL (4.8-10.8)
--- NOTE | 2019-09-11 14:45 | XRay Report ---
XR chest 1V portable HISTORY: Atypical Chest Pain COMPARISON: Chest 07/15/2019. FINDINGS: No pneumothorax. Trace bilateral pleural effusions and mild, mainly persist. Bilateral mid to lower lung zone airspace opacities have progressed. The upper lung zones remain clear. IMPRESSION: Bilateral mid to lower lung zone airspace opacities and trace bilateral pleural effusions. This may r epresent pneumonia or pulmonary edema. Electronically signed by: Srikanth Ferrell M.D. 09/11/2019 2:44 PM
[2019-09-11 14:49] LABS: INR 1.1 (0.9-1.1); Partial Thromboplastin Ratio 0.9; Partial Thromboplastin Time 23.7 Seconds (21.0-31.0); Prothrombin Time 11.6 Seconds (9.0-12.0)
[2019-09-11 14:51] LABS: D Dimer 1080 ug/L FEU (0-500)
[2019-09-11 14:55] LABS: Albumin Level 2.7 gm/dl (3.4-5.0); BUN Creatinine Ratio 17.9 (10-20); Bilirubin Direct 0.3 mg/dl (0-0.2); Calcium 8.5 mg/dl (8.5-10.1); Creatinine Clr Calc Pharmacy 57.7 ml/min; Est GFR (African American) 85.7; Est GFR (Non-African American) 73.9; Potassium 3.6 mmol/L (3.5-5.1)
[2019-09-11 15:03] LABS: Bilirubin,Total 1.2 mg/dl (0.2-1); Total Protein 6.6 gm/dl (6.4-8.2); Troponin I 0.051 ng/ml (0-0.045)
[2019-09-11 15:21] LABS: Base Excess VBG -0.5 mEq/L; HCO3 VBG 23 mmol/L; PCO2 VBG 35 mmHg (38-50); PO2 VBG 21 mmHg; pH VBG 7.44 (7.36-7.41)
[2019-09-11 15:24] LABS: Oxygen Saturation VBG < 60.0 %
[2019-09-11] MEDS ORDERED: OPTIRAY 320 125ml IV PRN (15:52)
[2019-09-11] MEDS ORDERED: LORazepam 1 MG/2 ML VIAL IV STA (16:08)
--- NOTE | 2019-09-11 17:48 | CT Scan Report ---
CT angio chest PE protocol CLINICAL HISTORY: 69 years-old Male presenting with shortness of breath, atypical chest pain, clinica l concern for pulmonary embolus. TECHNIQUE: Multidetector CT angiography of the chest was performed after administration of intravenou s contrast. 3-D volumetric and/or maximum intensity projection (MIP) images were subsequently reconst ructed for review. IV contrast: 118 mL of Optiray 320. One or more dose lowering techniques were used consistent with the principles of ALARA (as low as reasonably achievable), including automatic expos ure control, mA or kV adjustment to individual patient size, and/or use of iterative reconstruction. COMPARISON: 10/28/2016. CT DOSE (mGy.cm): The estimated cumulative dose is 378.43 mGy.cm. FINDINGS: Grinder Set Up Operator External topogram: Cardiomegaly and bilateral pulmonary infiltrates. Pulmonary vasculature: The study is adequate for assessment of the pulmonary vascular tree. No filling defect within the pul monary arteries to suggest embolus. Slightly diminished opacification of lower lobe pulmonary arterie s relative to the upper lobes may relate to elevated pulmonary arterial capillary bed pressure in reg ions of infiltrates. Mid pulmonary artery enlarged measuring 3.5 cm in diameter. No flattening of the interventricular septum. No intracardiac filling defect. Reflux of contrast into the IVC and hepatic veins. This likely indicates elevated right heart pressure. Remaining chest: Soft tissues: Normal thyroid and thoracic inlet. Gynecomastia. No axillary, supraclavicular, mediasti nal, or hilar lymphadenopathy. Atherosclerosis of the aorta. Multichamber enlargement of the heart. C oronary artery and aortic valve calcification. Moderate bilateral simple-appearing pleural effusions. No pericardial effusion. Upper abdomen normal. Lungs and airways: No pneumothorax. Extensive peribronchovascular bundle thickening. Central airways patent. Mild centrilobular upper lobe predominant emphysema. Pulmonary arteries are not significantly enlarged relative to adjacent bronchi. Mild interlobular septal thickening is evident at the lung ba ses. Extensive peribronchovascular predominant as well as patchy peripheral groundglass and more gene d consolidation. This affects the mid to lower lung regions to a greater extent than the apices. All 5 lobes are involved. Predominantly subpleural sparing is noted apart from few foci anteriorly. Musculoskeletal: Degenerative changes of the spine. IMPRESSION: 1. Extensive predominantly mid to basilar peribronchovascular infiltrates. This is favored to repres ent moderate pulmonary edema. Differential considerations include pulmonary hemorrhage, diffuse alveo lar damage and multifocal pneumonia. 2. Cardiomegaly with evidence of pulmonary arterial hypertension and right heart dysfunction. 3. Moderate bilateral pleural effusions. 4. Underlying mild emphysema. 5. No evidence of pulmonary embolus. Electronically signed by: Delta Gotti M.D. 09/11/2019 5:47 PM
[2019-09-11] MEDS ORDERED: FUROSEMIDE 40 MG/4 ML VIAL IV STA (18:15)
--- NOTE | 2019-09-11 20:11 | History & Physical Report ---
Date of Service September 11, 2019 Assessment & Plan (1) CHF exacerbation: hx chronic systolic heart failure secondary to ischemic cardiomyopathy EF 40-45%, TTE 2019) severe MR Medication noncompliance from paranoid schizophrenia contributory to decompensated HF CAD status post stent hypertension, stable hx PAF, patient NSR, deemed to be a poor candidate for anticoagulation past hx DVT hxf testicular CA sp surgery and chemotherapy past tobacco abuse chronic anemia, hemoglobin at baseline chronic lymphedema, usual R>L leg swelling with scant drainage as per patient low TSH, elevated free T4, new diagnosis of hyperthyroidism PCU Diuretic Rx Resume low-dose beta-polo if patient agreeable. Strict I/Os, daily weights, CHF education Cardiology consult RE decompensated heart failure (Patient known to [facility] [place] Initiate Methimazole, outpatient Endocrinology follow-up DVT prophylaxis with Lovenox subcu Full code History of Present Illness Chief Complaint: Shortness of breath Primary Care Provider: Dr. Misty Vora History obtained from patient and records. Medical history significant for chronic systolic heart failure secondary to ischemic cardiomyopathy EF 45%, TTE 2019), severe MR, CAD status post stent, hypertension, hx PAF, paranoid schizophrenia, past hx DVT, hxf testicular CA sp surgery and chemotherapy, past tobacco abuse, chronic anemia (baseline hemoglobin of 10-11), chronic lymphedema, medication noncompliance. Recent confinement June 15 - July 16, [address] elevation MD status post bare-metal stent placement. EEG showed EF 40 to 45% with acute MR. Paroxysmal A. fib during confinement. Patient subsequently discharged to [facility] facility. Erratic compliance with discharge meds (aspirin, beta-polo, statin, Lasix) at rehab facility as per records. Patient discharged from rehab facility second week of July,. 2 weeks history of worsening shortness of breath on exertion without chest pain, unusual cough symptoms. Wheezing noted by home health nurses. Patient admits to not taking some of the heart meds he's supposed to take. Denies dietary indiscretion. Denies abdominal pain symptoms. Increasing weakness. Unable to see PCP for appointment. At the ER, patient received Lasix for CHF, aspirin given for troponin elevation. Ativan given prior to CT study. Medical History as above Surgical History : Appendectomy, orchiectomy Family History : Heart disease Personal/Social history : Past tobacco abuse, no EtOH intake, disabled Allergies Allergy/AdvReac Type Severity Reaction Status Date / Time horse dander Allergy Unknown HORSE HAIR Verified 09/11/19 14:30 tetanus toxoid, adsorbed Allergy Unknown Verified 09/11/19 14:30 Home Medications Home Medications Medication Instructions Recorded Confirmed Type aspirin [Ecotrin Low Strength] 81 mg PO QAM #30 tab 07/16/19 09/11/19 Rx atorvastatin 80 mg PO QAM #30 tab 07/16/19 09/11/19 Rx nitroglycerin [Nitrostat] 0.4 mg SUBLINGUAL PRN PRN #30 tab 07/16/19 09/11/19 Rx prasugrel [Effient] 10 mg PO QAM #30 tab 07/16/19 09/11/19 Rx tramadol 50 mg PO Q8 PRN 09/11/19 09/11/19 History Past Med/Surg History Medical History History of pancreatitis History of tobacco abuse History of testicular cancer Lymphedema of right lower extremity History of DVT (deep vein thrombosis) Hypertension Schizophrenia Homelessness Surgical History Hx of heart artery stent Status post cardiac catheterization Family History Other Unknown family medical history Social History Preferred Language: Niuean Communication Ability: Effective Beliefs That Will Affect Care: None Current Living Situation: Alone Current Living Situation Comment: apartment Feels Safe at Home: Yes Safety Concerns: Feels Safe At This Time Smoking Status: Former smoker Do You Dip or Chew Tobacco: No ; Number of Years Since Quit: 10 ; Hx Alcohol Use: Yes Alcohol type: hard liquor Hx Substance Use: Yes (45 years ago) Review of Systems Review of Systems: Somewhat limited secondary to lethargy post Ativan administration Physical Exam Physical Exam: GENERAL: Episodic lethargy, chronic dysphonia, minimal respiratory distress, underweight SKIN: Pallor , warm HEENT: Pale palpebral conjunctivae, no ptosis, dry buccal mucosa NECK : Supple, no tenderness CHEST : Decreased breath sounds, bibasilar crackles, no tenderness HEART : RRR, systolic murmur ABDOMEN: Soft, nontender EXTREMITIES : Chronic bilateral LE swelling RLE greater than the left; RLE covered with dressing, minimal RLE tenderness NEUROLOGIC : Lethargic, no facial asymmetry, no other gross focality Results & Data Vital Signs (Past 12 Hours) Vital Signs Temp Pulse Pulse Resp BP BP Pulse Ox 09/11/19 20:02 99 09/11/19 20:01 96 H 15 99 09/11/19 20:00 97 H 31 H 153/117 H 99 09/11/19 18:40 92 H 23 138/103 H 98 09/11/19 17:41 95 H 22 151/111 H 100 09/11/19 15:30 101 H 26 H 157/116 H 99 09/11/19 13:55 37.1 C 104 H 26 H 148/111 H 2 L Laboratory Results Laboratory Results WBC 7.01 K/uL (4.8-10.8) 09/11/19 14:30 RBC 3.57 M/uL (4.7-6.1) L 09/11/19 14:30 Hgb 10.1 g/dL (14.0-18.0) L 09/11/19 14:30 Hct 31.5 % (42-52) L 09/11/19 14:30 MCV 88.2 fL (80-100) 09/11/19 14:30 MCH 28.3 pg (25-34) 09/11/19 14:30 MCHC 32.1 g/dL (32-36) 09/11/19 14:30 RDW Std Deviation 48.6 fL (36.4-46.3) H 09/11/19 14:30 RDW Coeff of Dante 14.9 % (11.5-14.5) H 09/11/19 14:30 Plt Count 257 K/uL (130-400) 09/11/19 14:30 MPV 9.1 fL (7.4-10.4) 09/11/19 14:30 Immature Gran % (Auto) 0.1 % 09/11/19 14:30 Neut % (Auto) 86.1 % 09/11/19 14:30 Lymph % (Auto) 6.1 % 09/11/19 14:30 Webb % (Auto) 7.6 % 09/11/19 14:30 Eos % (Auto) 0.0 % 09/11/19 14:30 Baso % (Auto) 0.1 % 09/11/19 14:30 Immature Gran # (Auto) 0.01 K/uL (0.00-0.02) 09/11/19 14:30 Neut # (Auto) 6.03 K/uL (1.4-6.5) 09/11/19 14:30 Lymph # (Auto) 0.43 K/uL (1.2-3.4) L 09/11/19 14:30 Webb # (Auto) 0.53 K/uL (0.11-0.59) 09/11/19 14:30 Eos # (Auto) 0.00 K/uL (0-0.5) 09/11/19 14:30 Baso # (Auto) 0.01 K/uL (0-0.2) 09/11/19 14:30 PT 11.6 Seconds (9.0-12.0) 09/11/19 14:12 INR 1.1 (0.9-1.1) 09/11/19 14:12 APTT 23.7 Seconds (21.0-31.0) 09/11/19 14:12 PTT Ratio 0.9 09/11/19 14:12 D-Dimer 1080 ug/L FEU (0-500) H* 09/11/19 14:12 VBG pH 7.44 (7.36-7.41) H 09/11/19 15:08 VBG pCO2 35 mmHg (38-50) L 09/11/19 15:08 VBG pO2 21 mmHg 09/11/19 15:08 VBG HCO3 23 mmol/L 09/11/19 15:08 VBG O2 Saturation < 60.0 % 09/11/19 15:08 VBG Base Excess -0.5 mEq/L 09/11/19 15:08 Barometric Pressure 732.8 mm/Hg 09/11/19 15:08 Sodium 140 mmol/L (136-145) 09/11/19 14:30 Potassium 3.6 mmol/L (3.5-5.1) 09/11/19 14:30 Chloride 112 mmol/L (98-107) H 09/11/19 14:30 Carbon Dioxide 19 mmol/L (21-32) L 09/11/19 14:30 Anion Gap 9.0 (3-11) 09/11/19 14:30 BUN 19 mg/dl (7-18) H 09/11/19 14:30 Creatinine 1.04 mg/dl (0.6-1.4) 09/11/19 14:30 Est Cr Clr Drug Dosing 57.7 ml/min 09/11/19 14:30 Est GFR ( Amer) 85.7 09/11/19 14:30 Est GFR (Non-Af Amer) 73.9 09/11/19 14:30 BUN/Creatinine Ratio 17.9 (10-20) 09/11/19 14:30 Glucose 114 mg/dl (70-99) H 09/11/19 14:30 Calcium 8.5 mg/dl (8.5-10.1) 09/11/19 14:30 Magnesium 1.9 mg/dl (1.8-2.4) 09/11/19 14:30 Total Bilirubin 1.2 mg/dl (0.2-1) H 09/11/19 14:30 Direct Bilirubin 0.3 mg/dl (0-0.2) H 09/11/19 14:30 AST 19 U/L (15-37) 09/11/19 14:30 ALT 25 U/L (12-78) 09/11/19 14:30 Alkaline Phosphatase 194 U/L (45-117) H 09/11/19 14:30 Troponin I 0.051 ng/ml (0-0.045) H* 09/11/19 14:30 NT-Pro-B Natriuret Pep 86052 pg/ml (0-900) H 09/11/19 14:30 NT-Pro-B Natriuret Pep Cancelled 09/11/19 14:30 Total Protein 6.6 gm/dl (6.4-8.2) 09/11/19 14:30 Albumin 2.7 gm/dl (3.4-5.0) L 09/11/19 14:30 Lipase 504 U/L (73-393) H 09/11/19 14:[address] chest: 1. Extensive predominantly mid to basilar peribronchovascular infiltrates. This is favored to represent moderate pulmonary edema. Differential considerations include pulmonary hemorrhage, diffuse alveolar damage and multifocal pneumonia. 2. Cardiomegaly with evidence of pulmonary arterial hypertension and right heart dysfunction. 3. Moderate bilateral pleural effusions. 4. Underlying mild emphysema. 5. No evidence of pulmonary embolus. EKG as per my interpretation rate 105, sinus tachycardia, RAD, incomplete RBBB; septal infarct, T wave flattening septal leads (1) CHF exacerbation Heart failure type: unspecified Qualified Code(s): I50.9 - Heart failure, unspecified
--- NOTE | 2019-09-11 20:48 | Emergency Department Note ---
Entered by Meg Marinelli acting as a scribe for History of Present Illness General Chief complaint: Shortness of Breath/Dyspnea Stated complaint: sob Time Seen by Provider: 09/11/19 14:02 Source: patient History of Present Illness Provider complaint: Shortness of Breath/Dyspnea Onset (ago): hour(s) 4 Location: chest Maximum Pain Intensity: 10 Relieved By: + rest Exacerbated By: + none Associated symptoms: no chest pain The patient is a 69 year old male who presents to the Emergency Room with complaints of shortness of breath/dyspnea that began about 4 hours ago. The patient states the symptoms are relieved at rest and not exacerbated by anything. The patient denies experiencing any chest pain. The patient mentioned that he is living in an apartment called [facility] and notes that he has missed taking his medications for the last 2 days. Home Medications Home Medications Medication Instructions Recorded Confirmed Type aspirin [Ecotrin Low Strength] 81 mg PO QAM #30 tab 07/16/19 09/11/19 Rx atorvastatin 80 mg PO QAM #30 tab 07/16/19 09/11/19 Rx nitroglycerin [Nitrostat] 0.4 mg SUBLINGUAL PRN PRN #30 tab 07/16/19 09/11/19 Rx prasugrel [Effient] 10 mg PO QAM #30 tab 07/16/19 09/11/19 Rx tramadol 50 mg PO Q8 PRN 09/11/19 09/11/19 History Allergies Allergy/AdvReac Type Severity Reaction Status Date / Time horse dander Allergy Unknown HORSE HAIR Verified 09/11/19 14:30 tetanus toxoid, adsorbed Allergy Unknown Verified 09/11/19 14:30 Past Med/Surg History Medical History History of pancreatitis History of tobacco abuse History of testicular cancer Lymphedema of right lower extremity History of DVT (deep vein thrombosis) Hypertension Schizophrenia Homelessness Surgical History Hx of heart artery stent Status post cardiac catheterization Family History Other Unknown family medical history Social History Preferred Language: Indonesian Communication Ability: Effective Beliefs That Will Affect Care: Spiritual Current Living Situation: Homeless Feels Safe at Home: Yes Smoking Status: Current every day smoker Number of Years Since Quit: 10 ; Hx Alcohol Use: Yes Hx Substance Use: Yes (Smoked marijuana and used other oral drugs in college. No IV drug abuse reported) Review of Systems See HPI for pertinent positives & negatives. and A total of 10 systems reviewed and were otherwise negative Physical Exam Vital Signs Vital Signs - 24 hr 09/11/19 13:55 09/11/19 15:30 09/11/19 17:41 Temperature 37.1 C Temperature Source Oral Sepsis Recent Fever Within 48 Hours No Sepsis New/Unexplained Change in Mental Status No Sepsis Action Taken by Nursing No Action Required Pulse Oximetry Post Tiitration 100 Pulse Rate 104 H Pulse Rate [Right Foot] 101 H 95 H Pulse Rate from SpO2 Sensor Respiratory Rate 26 H 26 H 22 Blood Pressure 148/111 H Blood Pressure [Right Arm] 157/116 H 151/111 H Blood Pressure Mean 123 Blood Pressure Mean [Right Arm] 129 124 Blood Pressure Position Sitting Pulse Oximetry 2 L 99 100 Oxygen Delivery Method Room Air Nasal Cannula Oxygen Flow Rate 100 2 09/11/19 18:40 09/11/19 20:00 09/11/19 20:01 Temperature Temperature Source Sepsis Recent Fever Within 48 Hours Sepsis New/Unexplained Change in Mental Status Sepsis Action Taken by Nursing Pulse Oximetry Post Tiitration Pulse Rate 97 H 96 H Pulse Rate [Right Foot] 92 H Pulse Rate from SpO2 Sensor 98 H 100 H Respiratory Rate 23 31 H 15 Blood Pressure 153/117 H Blood Pressure [Right Arm] 138/103 H Blood Pressure Mean 129 Blood Pressure Mean [Right Arm] 114 Blood Pressure Position Pulse Oximetry 98 99 99 Oxygen Delivery Method Nasal Cannula Nasal Cannula Oxygen Flow Rate 2 3 09/11/19 20:02 09/11/19 20:30 Temperature Temperature Source Sepsis Recent Fever Within 48 Hours Sepsis New/Unexplained Change in Mental Status Sepsis Action Taken by Nursing Pulse Oximetry Post Tiitration Pulse Rate 90 Pulse Rate [Right Foot] Pulse Rate from SpO2 Sensor 88 Respiratory Rate 23 Blood Pressure 137/100 Blood Pressure [Right Arm] Blood Pressure Mean 112 Blood Pressure Mean [Right Arm] Blood Pressure Position Pulse Oximetry 99 99 Oxygen Delivery Method Nasal Cannula Nasal Cannula Oxygen Flow Rate 3 3 GENERAL: He is oriented to person, place, and time. He appears well-developed and well-nourished. He does not appear distressed. Disheveled. HENT: Exam performed. - Head: Normocephalic and atraumatic. - Right Ear: External ear normal. No mastoid tenderness. - Left Ear: External ear normal. No mastoid tenderness. - Mouth/Throat: The oropharynx is clear and moist. No trismus in the jaw. No dental abscesses or uvula swelling. No oropharyngeal exudate or tonsillar abscesses. EYES: Conjunctivae and EOM are normal. Pupils are equal, round, and reactive to light. Right eye exhibits no discharge. Left eye exhibits no discharge. No scleral icterus. NECK: Normal range of motion. Neck supple. No JVD present. No spinous process tenderness present. No carotid bruit present. No rigidity. No tracheal deviation and normal range of motion present. No Brudzinski's sign and no Kernig's sign noted. CV: Normal rate, regular rhythm, normal heart sounds and intact distal pulses. 2+ pedal edema bilaterally lower extremities. Palpable radial pulses bue. PULM/CHEST:Rales at basis bilaterally. 2+ pedal edema bilaterally lower extremities. - Chest Wall: He exhibits no tenderness. ABD: The abdomen is soft. Bowel sounds are normal. He has no distension. No mass is present. There is no tenderness. There is no rebound, no guarding, no Gotti's sign and no tenderness at McBurney's point. Rovsig negative. MUSC/SKEL: Normal range of motion. There is no peripheral edema, tenderness or deformity. LYMPH: No cervical adenopathy. NEURO: He is alert and oriented to person, place, and time. He has normal strength. No cranial nerve deficit or sensory deficit. Coordination and gait normal. GCS eye subscore is 4. GCS verbal subscore is 5. GCS motor subscore is 6. Cerebellar tests wnl. SKIN: Skin is warm and dry. He is not diaphoretic. PSYCH: He has a normal mood and affect. Behavior is normal. Judgment and thought content normal. Course 1405: EMR reviewed. Patient was admitted from June 15 to July [address] He had a stent placed and while it was being placed he went into Vfib and required defibrillation. During his recovery time he refused Lasix and Aspirin as well as Plavix. He had to be evaluated by psych during his stay and has a history of ischemic cardiomyopathy and CHF. 1408: Past medical records reviewed. The patient was evaluated in room C04. A complete history and physical exam was performed. 1820: Vital signs stable. Labs within normal limits with the exception of an elevated proBNP and d-dimer level. Troponin is also elevated 0.051. CTA of the chest showed pulmonary edema with cardiomegaly. Patient does not have any chest pain, this is thought to be due to CHF exacerbation. I spoke with Dr. Mosley- Hospitalist about the patient's case and she will accept the patient for further evaluation. 40 mg of Lasix was given. Administered Medications Discontinued Medications Aspirin (Aspirin) 324 mg PO NOW STA Stop: 09/11/19 14:13 Last Admin: 09/11/19 14:35 Dose: 324 mg Documented by: [id number] Furosemide (Lasix) 40 mg IV NOW STA Stop: 09/11/19 18:16 Last Admin: 09/11/19 18:33 Dose: 40 mg Documented by: [id number] Lorazepam (Ativan) 1 mg in 2 mls @ 2 mls/min IV NOW STA Stop: 09/11/19 16:09 Last Admin: 09/11/19 16:17 Dose: 2 mls/min Documented by: [id number] Medical Decision Making Medical Records Attestation: I reviewed the patient's medical records. Home Medications Current Medication List: was personally reviewed by me Laboratory Data Attestation: I reviewed the patient's lab results. Result diagrams: 09/11/19 14:30 09/11/19 14:30 Lab Results 09/11/19 09/11/19 09/11/19 Range/Units 14:12 14:30 14:30 WBC 7.01 (4.8-10.8) K/uL RBC 3.57 L (4.7-6.1) M/uL Hgb 10.1 L (14.0-18.0) g/dL Hct 31.5 L (42-52) % MCV 88.2 (80-100) fL MCH 28.3 (25-34) pg MCHC 32.1 (32-36) g/dL RDW Std Deviation 48.6 H (36.4-46.3) fL RDW Coeff of Dante 14.9 H (11.5-14.5) % Plt Count 257 (130-400) K/uL MPV 9.1 (7.4-10.4) fL Immature Gran % (Auto) 0.1 % Neut % (Auto) 86.1 % Lymph % (Auto) 6.1 % Borden % (Auto) 7.6 % Eos % (Auto) 0.0 % Baso % (Auto) 0.1 % Immature Gran # (Auto) 0.01 (0.00-0.02) K/uL Neut # (Auto) 6.03 (1.4-6.5) K/uL Lymph # (Auto) 0.43 L (1.2-3.4) K/uL Borden # (Auto) 0.53 (0.11-0.59) K/uL Eos # (Auto) 0.00 (0-0.5) K/uL Baso # (Auto) 0.01 (0-0.2) K/uL PT 11.6 (9.0-12.0) Seconds INR 1.1 (0.9-1.1) APTT 23.7 (21.0-31.0) Seconds PTT Ratio 0.9 D-Dimer 1080 H* (0-500) ug/L FEU VBG pH (7.36-7.41) VBG pCO2 (38-50) mmHg VBG pO2 mmHg VBG HCO3 mmol/L VBG O2 Saturation % VBG Base Excess mEq/L Barometric Pressure mm/Hg Sodium 140 (136-145) mmol/L Potassium 3.6 (3.5-5.1) mmol/L Chloride 112 H (98-107) mmol/L Carbon Dioxide 19 L (21-32) mmol/L Anion Gap 9.0 (3-11) BUN 19 H (7-18) mg/dl Creatinine 1.04 (0.6-1.4) mg/dl Est Cr Clr Drug Dosing 57.7 ml/min Est GFR ( Amer) 85.7 Est GFR (Non-Af Amer) 73.9 BUN/Creatinine Ratio 17.9 (10-20) Glucose 114 H (70-99) mg/dl Calcium 8.5 (8.5-10.1) mg/dl Magnesium (1.8-2.4) mg/dl Total Bilirubin 1.2 H (0.2-1) mg/dl Direct Bilirubin 0.3 H (0-0.2) mg/dl AST 19 (15-37) U/L ALT 25 (12-78) U/L Alkaline Phosphatase 194 H (45-117) U/L Troponin I 0.051 H* (0-0.045) ng/ml NT-Pro-B Natriuret Pep 85349 H (0-900) pg/ml Total Protein 6.6 (6.4-8.2) gm/dl Albumin 2.7 L (3.4-5.0) gm/dl Lipase 504 H (73-393) U/L 09/11/19 09/11/19 09/11/19 Range/Units 14:30 14:30 15:08 WBC (4.8-10.8) K/uL RBC (4.7-6.1) M/uL Hgb (14.0-18.0) g/dL Hct (42-52) % MCV (80-100) fL MCH (25-34) pg MCHC (32-36) g/dL RDW Std Deviation (36.4-46.3) fL RDW Coeff of Dante (11.5-14.5) % Plt Count (130-400) K/uL MPV (7.4-10.4) fL Immature Gran % (Auto) % Neut % (Auto) % Lymph % (Auto) % Borden % (Auto) % Eos % (Auto) % Baso % (Auto) % Immature Gran # (Auto) (0.00-0.02) K/uL Neut # (Auto) (1.4-6.5) K/uL Lymph # (Auto) (1.2-3.4) K/uL Borden # (Auto) (0.11-0.59) K/uL Eos # (Auto) (0-0.5) K/uL Baso # (Auto) (0-0.2) K/uL PT (9.0-12.0) Seconds INR (0.9-1.1) APTT (21.0-31.0) Seconds PTT Ratio D-Dimer (0-500) ug/L FEU VBG pH 7.44 H (7.36-7.41) VBG pCO2 35 L (38-50) mmHg VBG pO2 21 mmHg VBG HCO3 23 mmol/L VBG O2 Saturation < 60.0 % VBG Base Excess -0.5 mEq/L Barometric Pressure 732.8 mm/Hg Sodium (136-145) mmol/L Potassium (3.5-5.1) mmol/L Chloride (98-107) mmol/L Carbon Dioxide (21-32) mmol/L Anion Gap (3-11) BUN (7-18) mg/dl Creatinine (0.6-1.4) mg/dl Est Cr Clr Drug Dosing ml/min Est GFR ( Amer) Est GFR (Non-Af Amer) BUN/Creatinine Ratio (10-20) Glucose (70-99) mg/dl Calcium (8.5-10.1) mg/dl Magnesium 1.9 (1.8-2.4) mg/dl Total Bilirubin (0.2-1) mg/dl Direct Bilirubin (0-0.2) mg/dl AST (15-37) U/L ALT (12-78) U/L Alkaline Phosphatase (45-117) U/L Troponin I (0-0.045) ng/ml NT-Pro-B Natriuret Pep Cancelled (0-900) pg/ml Total Protein (6.4-8.2) gm/dl Albumin (3.4-5.0) gm/dl Lipase (73-393) U/L Imaging Data Radiologist's Impression: Radiology results as stated below per my review and the radiologist's interpretation: XR chest 1V portable HISTORY: Atypical Chest Pain COMPARISON: Chest 07/15/2019. FINDINGS: No pneumothorax. Trace bilateral pleural effusions and mild, mainly persist. Bilateral mid to lower lung zone airspace opacities have progressed. The upper lung zones remain clear. IMPRESSION: Bilateral mid to lower lung zone airspace opacities and trace bilateral pleural effusions. This may represent pneumonia or pulmonary edema. Electronically signed by: Srikanth Ferrell M.D. 09/11/2019 2:[address] angio chest PE protocol CLINICAL HISTORY: 69 years-old Male presenting with shortness of breath, at ypical chest pain, clinical concern for pulmonary embolus. TECHNIQUE: Multidetector CT angiography of the chest was performed after administration of intravenous contrast. 3-D volumetric and/or maximum intensity projection (MIP) images were subsequently reconstructed for review. IV contrast: 118 mL of Optiray 320. One or more dose lowering techniques were used consistent with the principles of ALARA (as low as reasonably achievable), including automatic exposure control, mA or kV adjustment to individual patient size, and/or use of iterative reconstruction. COMPARISON: 10/28/2016. CT DOSE (mGy.cm): The estimated cumulative dose is 378.43 mGy.cm. FINDINGS: Development Trainer topogram: Cardiomegaly and bilateral pulmonary infiltrates. Pulmonary vasculature: The study is adequate for assessment of the pulmonary vascular tree. No filling defect within the pulmonary arteries to suggest embolus. Slightly diminished opacification of lower lobe pulmonary arteries relative to the upper lobes may relate to elevated pulmonary arterial capillary bed pressure in regions of infiltrates. Mid pulmonary artery enlarged measuring 3.5 cm in diameter. No flattening of the interventricular septum. No intracardiac filling defect. Reflux of contrast into the IVC and hepatic veins. This likely indicates elevat ed right heart pressure. Remaining chest: Soft tissues: Normal thyroid and thoracic inlet. Gynecomastia. No axillary, supraclavicular, mediastinal, or hilar lymphadenopathy. Atherosclerosis of the a rodolfo. Multichamber enlargement of the heart. Coronary artery and aortic valve calcification. Moderate bilateral simple-appearing pleural effusions. No pericardial effusion. Upper abdomen normal. Lungs and airways: No pneumothorax. Extensive peribronchovascular bundle thickening. Central airways patent. Mild centrilobular upper lobe predominant emphysema. Pulmonary arteries are not significantly enlarged relative to adjacent bronchi. Mild interlobular septal thickening is evident at the lung bas es. Extensive peribronchovascular predominant as well as patchy peripheral groundglass and more solid consolidation. This affects the mid to lower lung regions to a greater extent than the apices. All 5 lobes are involved. Predominantly subpleural sparing is noted apart from few foci anteriorly. Musculoskeletal: Degenerative changes of the spine. IMPRESSION: 1. Extensive predominantly mid to basilar peribronchovascular infiltrates. This is favored to represent moderate pulmonary edema. Differential considerations include pulmonary hemorrhage, diffuse alveolar damage and multifocal pneumonia. 2. Cardiomegaly with evidence of pulmonary arterial hypertension and right heart dysfunction. 3. Moderate bilateral pleural effusions. 4. Underlying mild emphysema. 5. No evidence of pulmonary embolus. Electronically signed by: Delta Gotti M.D. 09/11/2019 5:47 PM ECG Data Attestation: I personally reviewed and interpreted this ECG as follows: Indication: SOB/dyspnea Rate (beats per minute): 102 Rhythm: normal sinus Findings: + other (KS and QRS within normal limits. QTC is 503. Right ventricular hypertrophy) and + RBBB; no ST depression and no ST elevation Comparison ECG Date: from (07/2019) Change: the following changes noted (QTC has elongated) Blood Pressure Blood Pressure Findings: Elevated blood pressure Blood Pressure Disposition: further management by hospitalist [facility] Narrative 1405: EMR reviewed. Patient was admitted from June 15 to July [address] He had a stent placed and while it was being placed he went into Vfib and required defibrillation. During his recovery time he refused Lasix and Aspirin as well as Plavix. He had to be evaluated by psych during his stay and has a history of ischemic cardiomyopathy and CHF. 1408: Past medical records reviewed. The patient was evaluated in room C04. A complete history and physical exam was performed. 1820: Vital signs stable. Labs within normal limits with the exception of an e levated proBNP and d-dimer level. Troponin is also elevated 0.051. CTA of the chest showed pulmonary edema with cardiomegaly. Patient does not have any chest pain, this is thought to be due to CHF exacerbation. I spoke with Dr. Mosley- Hospitalist about the patient's case and she will accept the patient for further evaluation. 40 mg of Lasix was given. Impression & Plan CHF exacerbation Discharge Plan Visit Data Chief Complaint: Shortness of Breath/Dyspnea Stated Complaint: sob ED Provider: Pradeep Vee Discharge Problem: CHF exacerbation Forms Stand Alone Forms: [facility] Prescriptions Prescriptions: No Action atorvastatin 40 mg Tablet 80 mg PO QAM Qty: 30 RF: 0 nitroglycerin [Nitrostat] 0.4 mg Tablet, Sublingual 0.4 mg sublingual PRN PRN (Reason: chest pain) Qty: 30 RF: 0 prasugrel [Effient] 10 mg Tablet 10 mg PO QAM Qty: 30 RF: 0 aspirin [Ecotrin Low Strength] 81 mg Tablet,Delayed Release (Dr/Ec) 81 mg PO QAM Qty: 30 RF: 0 tramadol 50 mg tablet 50 mg PO Q8 PRN (Reason: Pain) RF: 0 Discharge Problem: CHF exacerbation Qualifiers: Heart failure type: unspecified Qualified Code(s): I50.9 - Heart failure, unspecified The scribe's documentation has been prepared under my direction and personally reviewed by me in its entirety. I confirm that the note above accurately reflects all work, treatment, procedures, and medical decision making performed by me.
[2019-09-11 21:22] LABS: Thyroid Stimulating Hormone 0.241 uIu/ml (0.300-4.500)
[2019-09-11] MEDS ORDERED: PROMETHAZINE HCL 12.5 MG in SODIUM CHLORIDE 0.9% 50 ML IV PRN (21:52)
[2019-09-11] MEDS ORDERED: IPRATROPIUM BROMIDE NEB SOLN 0.02% 2.5 ML VIAL INH PRN (21:52)
[2019-09-11] MEDS ORDERED: LEVALBUTEROL 1.25MG/0.5ML NEB INH PRN (21:52)
[2019-09-11] MEDS ORDERED: NITROGLYCERIN SL 0.4 MG/TAB TAB SL PRN ×2 (21:52)
[2019-09-11] MEDS ORDERED: POTASSIUM CHLORIDE 20 MEQ TABCR PO STA (21:52)
[2019-09-11] MEDS ORDERED: ACETAMINOPHEN 325 MG TAB PO PRN (21:52)
[2019-09-11] MEDS ORDERED: XOPENEX/ATROVENT 1.25mg/0.5MG NEB COMBO NEB PRN (21:52)
[2019-09-11 21:57] LABS: T4 Free Thyroxine 2.23 ng/dl (0.8-1.6)
[2019-09-11] MEDS: METOPROLOL TARTRATE 25 MG TAB PO SCH (22:00)
[2019-09-11] MEDS: TRAMADOL HCL 50 MG TABLET PO PRN (22:51)
[2019-09-12] MEDS ORDERED: PROMETHAZINE HCL 12.5 MG in SODIUM CHLORIDE 0.9% 50 ML IV ONE (04:00)
[2019-09-12 06:10] LABS: Basophils # (auto) 0.01 K/uL (0-0.2); Basophils % (auto) 0.1 %; Hematocrit (blood only) 31.1 % (42-52); Hemoglobin 9.8 g/dL (14.0-18.0); Immature Granulocytes # (auto) 0.02 K/uL (0.00-0.02); Immature Granulocytes % (auto) 0.3 %; Lymphocytes # (auto) 0.55 K/uL (1.2-3.4); Lymphocytes % (auto) 7.3 %; Mean Corpuscular Hemoglobin 28.2 pg (25-34); Mean Corpuscular Hgb Conc 31.5 g/dL (32-36); Mean Corpuscular Volume 89.6 fL (80-100); Mean Platelet Volume 9.3 fL (7.4-10.4); Monocytes # (auto) 0.59 K/uL (0.11-0.59); Monocytes % (auto) 7.9 %; Neutrophils # (auto) 6.32 K/uL (1.4-6.5); Neutrophils % (auto) 84.4 %; Platelet Count 250 K/uL (130-400); RDW Coefficient of Variation 15.2 % (11.5-14.5); RDW Standard Deviation 49.9 fL (36.4-46.3); Red Blood Count 3.47 M/uL (4.7-6.1); White Blood Count 7.49 K/uL (4.8-10.8)
[2019-09-12 06:38] LABS: Calcium 8.3 mg/dl (8.5-10.1); Creatinine Clr Calc Pharmacy 62.9 ml/min; Est GFR (Non-African American) 78.5; Potassium 4.1 mmol/L (3.5-5.1)
[2019-09-12 06:41] LABS: Albumin Level 2.3 gm/dl (3.4-5.0); Bilirubin Direct 0.3 mg/dl (0-0.2); Troponin I 0.045 ng/ml (0-0.045)
[2019-09-12 06:49] LABS: Thyroid Stimulating Hormone 0.128 uIu/ml (0.300-4.500)
[2019-09-12] MEDS: TRAMADOL HCL 50 MG TABLET PO PRN ×2 (08:00→17:25)
[2019-09-12] MEDS: FUROSEMIDE 40 MG in SYRINGE 0 ML IV SCH ×4 (08:03→22:02)
[2019-09-12] MEDS: ATORVASTATIN 40 MG TAB PO SCH (08:03)
[2019-09-12] MEDS: ASPIRIN 81 MG ECTAB PO SCH ×2 (08:03→11:59)
[2019-09-12] MEDS: PRASugrel TAB 10 MG TAB PO SCH (08:03)
[2019-09-12] MEDS: METOPROLOL TARTRATE 25 MG TAB PO SCH ×3 (08:03→21:50)
[2019-09-12] MEDS: POTASSIUM CHLORIDE 10 MEQ TABCR PO SCH ×2 (08:04→18:35)
[2019-09-12] MEDS: ENOXAPARIN INJ 30 MG/0.3 ML SYR SQ SCH (08:04)
[2019-09-12] MEDS ORDERED: METOPROLOL TARTRATE 25 MG TAB PO SCH (09:00)
--- NOTE | 2019-09-12 09:08 | Cardiology Consultation ---
Date of Consultation September 12, 2019 Assessment & Plan (1) CHF exacerbation: 2. Ischemic cardiomyopathy 3. Multivessel coronary artery disease, occluded RCA, prior PCI to circumflex, moderate to severe mid LAD disease 4. Severe mitral regurgitation 5. Paroxysmal atrial relation 6. History of paranoid schizophrenia Significant congestion on exam, well-perfused. Suspected exacerbation precipitated by lack of maintenance diuretics, increased salt intake, limited medical adherence. Low suspicion for acute ischemia Limited response to initial IV Lasix. Agree with IV Lasix 40 mg twice daily, target -1 L today Continue current Prasugrel, metoprolol, high intensity statin No additional cardiac testing necessary at this time. We will continue to follow History of Present Illness Attending Physician: Funmi Valentine MD History of Present Illness Mr. Masterson is a 69-year-old man with a history of paranoid schizophrenia, prior homelessness and coronary artery disease post inferior STEMI treated with primary PCI to in May 2019, known occluded RCA, paroxysmal atrial relation, ischemic cardiomyopathy with an EF of 40 to 45%, severe mitral regurgitation here for acute systolic heart failure. Patient admitted yesterday after episodes of increasing shortness of breath, generally feeling unwell. On presentation tachypneic, hypertensive and hypoxic. Chest x-ray/chest CTA showed bilateral pleural effusions with pulmonary infiltrates, BNP greater than 18,000. Troponin negative, EKG showed sinus tachycardia. Given IV Lasix x2. Continued on prior Prasugrel. Today states still feels weak, short of breath. Denies any chest pain. Reports decreased appetite. Reports not taking Lasix at home. Has been eating more canned soup. Prior cardiac studies: Echo 05/2018: EF 40 to 45%, grade 2 diastolic dysfunction, mild RV dysfunction, severe MR Cardiac cath 05/2019: 60% mid LAD, subtotally occluded small diagonal, circumflex aneurysmal with mid segment acute occlusion. RCA small chronically occluded with [id number] collaterals. Post PCI with 2.75 x 18 mm integrity BMS Allergies Allergy/AdvReac Type Severity Reaction Status Date / Time horse dander Allergy Unknown HORSE HAIR Verified 09/11/19 14:30 tetanus toxoid, adsorbed Allergy Unknown Verified 09/11/19 14:30 Home Medications Home Medications Medication Instructions Recorded Confirmed Type aspirin [Ecotrin Low Strength] 81 mg PO QAM #30 tab 07/16/19 09/11/19 Rx atorvastatin 80 mg PO QAM #30 tab 07/16/19 09/11/19 Rx nitroglycerin [Nitrostat] 0.4 mg SUBLINGUAL PRN PRN #30 tab 07/16/19 09/11/19 Rx prasugrel [Effient] 10 mg PO QAM #30 tab 07/16/19 09/11/19 Rx tramadol 50 mg PO Q8 PRN 09/11/19 09/11/19 History Patient History Medical History History of pancreatitis History of tobacco abuse History of testicular cancer Lymphedema of right lower extremity History of DVT (deep vein thrombosis) Hypertension Schizophrenia Homelessness Surgical History Hx of heart artery stent Status post cardiac catheterization Family History Other Unknown family medical history Social History Preferred Language: Lithuanian Communication Ability: Effective Beliefs That Will Affect Care: None Current Living Situation: Alone Current Living Situation Comment: apartment Feels Safe at Home: Yes Safety Concerns: Feels Safe At This Time Smoking Status: Former smoker Do You Dip or Chew Tobacco: No ; Number of Years Since Quit: 10 ; Hx Alcohol Use: Yes Alcohol type: hard liquor Hx Substance Use: Yes (45 years ago) Review of Systems Review of Systems: All systems reviewed & are unremarkable except as noted in HPI & below Physical Exam Physical Exam: General: Chronically ill, frail Eyes: Sclerae anicteric, extraocular movements intact HENT: Oropharynx clear mucous membranes moist Neck: Unable to assess JVD Lungs: Decreased breath sounds at bases, crackles up to upper lungs Cardiac: Tachycardic, regular, no murmurs Vascular: 2+ radial bilaterally. Chronic lymphedema/venous stasis changes involving right leg. Trace to 1+ left lower extremity edema Abdomen: Soft, nontender, nondistended, positive bowel sounds. . Psych: Alert oriented Results & Data Vital Signs (Past 12 Hours) Vital Signs Temp Pulse Pulse Resp BP BP Pulse Ox 09/12/19 07:08 97.3 F L 90 18 150/108 H 142/96 H 94 09/12/19 03:30 97.5 F L 92 H 22 149/95 H 94 09/12/19 00:00 97 H 09/11/19 22:37 91 H 28 H 145/99 H 94 09/11/19 22:01 97.7 F 112 H 38 H 173/134 H 186/116 H 95 09/11/19 21:40 Pulse Ox 09/12/19 07:08 09/12/19 03:30 09/12/19 00:00 09/11/19 22:37 09/11/19 22:01 09/11/19 21:40 95 PG Care Time/CCT Total # of Minutes Spent Total Time Spent with Patient: Total time spent is greater than 50% in coordination of care (as documented) at patient's floor/unit and/or counseling patient: (1) CHF exacerbation Heart failure type: unspecified Qualified Code(s): I50.9 - Heart failure, unspecified
[2019-09-12] MEDS: methIMAzole 5 MG TABLET PO SCH ×2 (11:48→21:50)
--- NOTE | 2019-09-12 16:22 | Hospitalist Progress Note ---
Date of Service September 12, 2019 Assessment & Plan (1) CHF exacerbation: Ischemic cardiomyopathy Mostly related to noncompliance due his paranoid schizophrenia has been refused lasix, but agreed to take it after talking to him ECHO on 06/07 showed EF 40-45% Continue IV lasix 40mg BID Cardiology on board Continue monitor I/O CAD status post stent Refuse to take asa and metoprolol, only take half of lipitor Denies any chest pain Hyperthyroidism Continue Methimazole for now Check TSH in 6 to 8 weeks Hypertension BP elevated Refused to take medication Monitor BP DVT on Lovenox (But refused) CODE STATUS FULL CODE Subjective Pt was seen and examined Lying in bed with no distress Pt refused to take his medication He said that he continues to have SOB with minimal exertion After a lot of back and forth talked , he agreed to take the lasix IV Denies any chest pain, palpitation, dizziness and fever Physical Exam Physical Exam: General- No acute distress Head- atraumatic Eyes- PERRL, EOMI, ENT- oropharynx clear Neck- supple, no JVD Lungs- Decrease BS, +crackle Heart- +tachycardia Abdomen- normal bowel sounds, soft, nontender Extremities- no calf tenderness, +Chronic lymphedema/venous stasis changes involving right leg. Neuro- alert, oriented x 3; PERRL, EOMI; no facial palsy; no dysarthria Skin- warm & dry Results & Data Vital Signs (Past 12 Hours) Vital Signs Temp Pulse Pulse Resp BP BP Pulse Ox 09/12/19 15:10 36.5 C 99 H 18 160/118 H 97 09/12/19 11:06 36.3 C L 105 H 20 159/110 H 159/114 H 93 09/12/19 08:00 91 H 09/12/19 07:08 36.3 C L 90 18 150/108 H 142/96 H 94 Pulse Ox 09/12/19 15:10 09/12/19 11:06 09/12/19 08:00 95 09/12/19 07:08 (1) CHF exacerbation Heart failure type: unspecified Qualified Code(s): I50.9 - Heart failure, unspecified
[2019-09-13] MEDS: PRASugrel TAB 10 MG TAB PO SCH (09:03)
[2019-09-13] MEDS: METOPROLOL TARTRATE 25 MG TAB PO SCH ×2 (09:04→20:25)
[2019-09-13] MEDS: methIMAzole 5 MG TABLET PO SCH ×2 (09:05→20:26)
[2019-09-13] MEDS: ENOXAPARIN INJ 30 MG/0.3 ML SYR SQ SCH (09:05)
[2019-09-13] MEDS: POTASSIUM CHLORIDE 10 MEQ TABCR PO SCH ×2 (09:10→16:40)
[2019-09-13] MEDS: ATORVASTATIN 40 MG TAB PO SCH (09:10)
[2019-09-13] MEDS: ASPIRIN 81 MG ECTAB PO SCH (09:10)
[2019-09-13 10:26] LABS: BUN Creatinine Ratio 21.2 (10-20); Calcium 8.1 mg/dl (8.5-10.1); Creatinine Clr Calc Pharmacy 50.8 ml/min; Est GFR (African American) 75.9; Est GFR (Non-African American) 65.5; Potassium 3.3 mmol/L (3.5-5.1)
--- NOTE | 2019-09-13 12:49 | Cardiology Progress Note ---
Date of Service September 13, 2019 Assessment & Plan (1) CHF exacerbation: 2. Ischemic cardiomyopathy 3. Multivessel coronary artery disease, occluded RCA, prior PCI to circumflex, moderate to severe mid LAD disease 4. Severe mitral regurgitation 5. Paroxysmal atrial relation 6. History of paranoid schizophrenia Patient is responding well to diuresis with IV Lasix, -2.5 L thus far. On exam well perfused still with evidence of congestion. Renal function is stable. Mild hypokalemia and K supplement has been started. Continue IV Lasix 40 mg BID. Low Na diet. Daily weights. Strict I&Os. Troponin down to normal today. Low suspicion for acute ischemia. Acute CHF likely occurred in setting of medication noncompliance and increased sodium intake. Continue current Prasugrel, metoprolol, high intensity statin We will continue to follow. Subjective Patient reports feeling somewhat better today. Slept well overnight without orthopnea or PND. Still feeling very weak. Shortness of breath improved to some degree at rest but worse when he got up to use the rest room. No chest pain. Also felt lightheaded when he walked to the restroom. No palpitations, near syncope or syncope. No abnormal bleeding. Negative greater than 2L so far. Review of Systems Review of Systems: All systems reviewed & are unremarkable except as noted in HPI & below Physical Exam Physical Exam: General: Chronically ill, frail Eyes: Sclerae anicteric, extraocular movements intact HENT: Oropharynx clear mucous membranes moist Neck: JVD difficult to assess Lungs: Decreased breath sounds at bases, crackles to mid lung bilaterally Cardiac: Regular rate and rhythm. No murmur. Vascular/extremities: 2+ radial bilaterally. Chronic lymphedema/venous stasis changes involving right leg with wound dressed. Trace to 1+ left lower extremity edema Abdomen: Soft, nontender, nondistended, positive bowel sounds. Psych: Alert oriented Results & Data Vital Signs (Past 12 Hours) Vital Signs Temp Pulse Resp BP Pulse Ox 09/13/19 10:50 36.9 C 85 19 121/83 97 09/13/19 09:02 115/74 09/13/19 06:51 36.4 C L 85 19 138/90 97 Laboratory Results Laboratory Results - last 24 hr 09/13/19 09:36 Sodium 142 Potassium 3.3 L D Chloride 108 H Carbon Dioxide 24 Anion Gap 10.0 BUN 24 H Creatinine 1.15 Est Cr Clr Drug Dosing 50.8 Est GFR ( Amer) 75.9 Est GFR (Non-Af Amer) 65.5 BUN/Creatinine Ratio 21.2 H Glucose 104 H Calcium 8.1 L ECG Additional Comments: Tele reviewed-- Sinus rhythm 80-90s PG Care Time/CCT Total # of Minutes Spent Total Time Spent with Patient: Total time spent is greater than 50% in coordination of care (as documented) at patient's floor/unit and/or counseling patient: (1) CHF exacerbation Heart failure type: unspecified Qualified Code(s): I50.9 - Heart failure, unspecified
[2019-09-13] MEDS: TRAMADOL HCL 50 MG TABLET PO PRN (13:45)
--- NOTE | 2019-09-13 19:35 | Hospitalist Progress Note ---
Date of Service September 13, 2019 Assessment & Plan (1) CHF exacerbation: Ischemic cardiomyopathy Mostly related to noncompliance due his paranoid schizophrenia has been refused lasix, but agreed to take it after talking to him ECHO on 06/07 showed EF 40-45% Continue IV lasix 40mg BID Cardiology on board Continue monitor I/O CAD status post stent Refuse to take asa and metoprolol, only take half of lipitor Denies any chest pain Hyperthyroidism Continue Methimazole (Refused to take med) Check TSH in 6 to 8 weeks Hypertension BP elevated Refused to take medication Monitor BP General Weakness Fall precaution PT/OT eval DVT on Lovenox (But refused) CODE STATUS FULL CODE Disposition Continue monitor in PCU Subjective Pt was seen and examined Lying in bed with no distress Pt said that he is diuresis well He said that he wants something stronger for pain He said that he feels weak He said that his breathing is much better Denies any chest pain, palpitation, dizziness and SOB Physical Exam Physical Exam: General- No acute distress Head- atraumatic Eyes- PERRL, EOMI, ENT- oropharynx clear Neck- supple, no JVD Lungs- Decrease BS, +crackle Heart- +tachycardia Abdomen- normal bowel sounds, soft, nontender Extremities- no calf tenderness, +Chronic lymphedema/venous stasis changes involving right leg. Neuro- alert, oriented x 3; PERRL, EOMI; no facial palsy; no dysarthria Skin- warm & dry Results & Data Vital Signs (Past 12 Hours) Vital Signs Temp Pulse Pulse Resp BP Pulse Ox 09/13/19 19:05 37 C 86 18 117/74 94 09/13/19 15:16 37 C 92 H 20 134/89 99 09/13/19 15:00 92 H 09/13/19 14:37 85 120/77 09/13/19 10:50 36.9 C 85 19 121/83 97 09/13/19 09:02 115/74 (1) CHF exacerbation Heart failure type: unspecified Qualified Code(s): I50.9 - Heart failure, unspecified
[2019-09-13] MEDS: OXYCODONE HCL IR 5 MG TAB (IMMEDIATE RELEASE) PO PRN (20:23)
[2019-09-13] MEDS: FUROSEMIDE 40 MG in SYRINGE 0 ML IV SCH (20:34)
[2019-09-14] MEDS: ATORVASTATIN 40 MG TAB PO SCH (08:53)
[2019-09-14] MEDS: METOPROLOL TARTRATE 25 MG TAB PO SCH ×2 (08:53→22:37)
[2019-09-14] MEDS: ASPIRIN 81 MG ECTAB PO SCH (08:54)
[2019-09-14] MEDS: PRASugrel TAB 10 MG TAB PO SCH (08:54)
[2019-09-14] MEDS: POTASSIUM CHLORIDE 10 MEQ TABCR PO SCH ×2 (08:55→16:46)
[2019-09-14] MEDS: ENOXAPARIN INJ 30 MG/0.3 ML SYR SQ SCH (08:55)
[2019-09-14] MEDS: methIMAzole 5 MG TABLET PO SCH ×2 (09:00→22:37)
[2019-09-14 09:51] LABS: BUN Creatinine Ratio 27.7 (10-20); Creatinine Clr Calc Pharmacy 53.3 ml/min; Est GFR (African American) 82.8; Est GFR (Non-African American) 71.5; Potassium 3.3 mmol/L (3.5-5.1)
[2019-09-14] MEDS: OXYCODONE HCL IR 5 MG TAB (IMMEDIATE RELEASE) PO PRN ×2 (10:40→22:37)
[2019-09-14] MEDS: FUROSEMIDE 40 MG in SYRINGE 0 ML IV SCH ×2 (11:12→16:46)
--- NOTE | 2019-09-14 19:06 | Hospitalist Progress Note ---
Date of Service September 14, 2019 Assessment & Plan (1) CHF exacerbation: Ischemic cardiomyopathy Mostly related to noncompliance due his paranoid schizophrenia has been refused lasix, but agreed to take it after talking to him ECHO on 06/07 showed EF 40-45% Continue IV lasix 40mg BID Cardiology on board Continue monitor I/O Monitor BPM CAD status post stent Refuse to take asa and metoprolol, only take half of lipitor Denies any chest pain Refused to take medications Hyperthyroidism Continue Methimazole (Refused to take med) Check TSH in 6 to 8 weeks Hypertension BP elevated Refused to take medication Monitor BP Hypokalemia K 3.3 Refused to take any K supplement Discussed with patient about the risk of Low K such as arrhythmia and even Monitor K General Weakness Fall precaution PT/OT eval Interested to go to rehab, will inform case management DVT on Lovenox (But refused) CODE STATUS FULL CODE Disposition Continue monitor in PCU Subjective Pt was seen and examined Lying in bed with no distress Pt said that he feels weak He said that he is interested to go to rehab He continues to refuse to take K supplement Denies any chest pain, palpitation and SOB Physical Exam Physical Exam: General- No acute distress Head- atraumatic Eyes- PERRL, EOMI, ENT- oropharynx clear Neck- supple, no JVD Lungs- Decrease BS, +crackle Heart- +tachycardia Abdomen- normal bowel sounds, soft, nontender Extremities- no calf tenderness, +Chronic lymphedema/venous stasis changes involving right leg. Neuro- alert, oriented x 3; PERRL, EOMI; no facial palsy; no dysarthria Skin- warm & dry Results & Data Vital Signs (Past 12 Hours) Vital Signs Temp Pulse Pulse Resp BP Pulse Ox 09/14/19 15:20 36.9 C 78 20 103/69 98 09/14/19 14:55 79 09/14/19 07:43 80 09/14/19 07:13 36.3 C L 80 18 127/83 99 (1) CHF exacerbation Heart failure type: unspecified Qualified Code(s): I50.9 - Heart failure, unspecified
[2019-09-15 07:26] LABS: Calcium 8.1 mg/dl (8.5-10.1); Creatinine Clr Calc Pharmacy 49.1 ml/min; Est GFR (African American) 80.1; Est GFR (Non-African American) 69.1; Potassium 3.3 mmol/L (3.5-5.1)
[2019-09-15] MEDS: ASPIRIN 81 MG ECTAB PO SCH (08:56)
[2019-09-15] MEDS: POTASSIUM CHLORIDE 10 MEQ TABCR PO SCH ×2 (08:57→16:13)
[2019-09-15] MEDS: PRASugrel TAB 10 MG TAB PO SCH (08:57)
[2019-09-15] MEDS: METOPROLOL TARTRATE 25 MG TAB PO SCH ×2 (08:58→21:17)
[2019-09-15] MEDS: ATORVASTATIN 40 MG TAB PO SCH (08:59)
[2019-09-15] MEDS: ENOXAPARIN INJ 30 MG/0.3 ML SYR SQ SCH (09:00)
[2019-09-15] MEDS: methIMAzole 5 MG TABLET PO SCH ×2 (09:01→21:17)
[2019-09-15] MEDS: FUROSEMIDE 40 MG in SYRINGE 0 ML IV SCH ×2 (11:37→16:13)
--- NOTE | 2019-09-15 15:49 | Hospitalist Progress Note ---
Date of Service September 15, 2019 Assessment & Plan (1) CHF exacerbation: Ischemic cardiomyopathy Mostly related to noncompliance due his paranoid schizophrenia has been refused lasix, but agreed to take it after talking to him ECHO on 06/07 showed EF 40-45% On IV lasix 40mg BID (only taking once daily) Cardiology on board Continue monitor I/O Continue 2L fluid restriction daily Will change IV lasix to oral tomorrow (not sure if he will take the oral lasix, if not will continue to give the IV) Monitor BPM CAD status post stent Refuse to take asa and metoprolol, only take half of lipitor Denies any chest pain Refused to take medications Hyperthyroidism Continue Methimazole (Refused to take med) Check TSH in 6 to 8 weeks Hypertension BP elevated Refused to take medication Monitor BP Hypokalemia K 3.3 Refused to take any K supplement Discussed with patient about the risk of Low K such as arrhythmia and even Monitor BMP General Weakness Fall precaution PT/OT eval Interested to go to rehab, will inform case management DVT on Lovenox (But refused) CODE STATUS FULL CODE Disposition Will transfer to medical Waiting for placement to rehab Subjective Pt was seen and examined. Lying in bed with no distress Pt did not eat his lunch today because he was paranoid that someone messed up the lunch He continues refusing to take most of his medications He agreed to take the lasix this afternoon He said that he would only take it after speaking to me Denies any chest pain, palpitation, dizziness and SOB Physical Exam Physical Exam: General- No acute distress Head- atraumatic Eyes- PERRL, EOMI, ENT- oropharynx clear Neck- supple, no JVD Lungs- Decrease BS, Heart- +tachycardia Abdomen- normal bowel sounds, soft, nontender Extremities- no calf tenderness, +Chronic lymphedema/venous stasis changes involving right leg. Neuro- alert, oriented x 3; PERRL, EOMI; no facial palsy; no dysarthria Skin- warm & dry Results & Data Vital Signs (Past 12 Hours) Vital Signs Temp Pulse Pulse Resp BP Pulse Ox 09/15/19 15:15 36.9 C 85 18 112/74 98 09/15/19 14:57 85 09/15/19 11:33 36.7 C 73 17 115/75 100 09/15/19 07:03 36.4 C L 81 18 125/74 96 09/15/19 07:00 82 (1) CHF exacerbation Heart failure type: unspecified Qualified Code(s): I50.9 - Heart failure, unspecified
[2019-09-15] MEDS: OXYCODONE HCL IR 5 MG TAB (IMMEDIATE RELEASE) PO PRN (17:08)
[2019-09-15] MEDS: TRAMADOL HCL 50 MG TABLET PO PRN (21:17)
[2019-09-16] MEDS: OXYCODONE HCL IR 5 MG TAB (IMMEDIATE RELEASE) PO PRN ×2 (05:21→21:08)
[2019-09-16 06:39] LABS: BUN Creatinine Ratio 29.8 (10-20); Calcium 8.2 mg/dl (8.5-10.1); Creatinine Clr Calc Pharmacy 57.5 ml/min; Est GFR (African American) 96.8; Est GFR (Non-African American) 83.6; Potassium 3.2 mmol/L (3.5-5.1)
[2019-09-16] MEDS: methIMAzole 5 MG TABLET PO SCH ×2 (08:31→21:09)
[2019-09-16] MEDS: METOPROLOL TARTRATE 25 MG TAB PO SCH ×2 (08:31→21:09)
[2019-09-16] MEDS: PRASugrel TAB 10 MG TAB PO SCH (08:32)
[2019-09-16] MEDS: ATORVASTATIN 40 MG TAB PO SCH (08:32)
[2019-09-16] MEDS: POTASSIUM CHLORIDE 10 MEQ TABCR PO SCH ×2 (08:33→17:16)
[2019-09-16] MEDS: ASPIRIN 81 MG ECTAB PO SCH (08:33)
[2019-09-16] MEDS: ENOXAPARIN INJ 30 MG/0.3 ML SYR SQ SCH (08:38)
[2019-09-16] MEDS: TRAMADOL HCL 50 MG TABLET PO PRN (11:45)
[2019-09-16] MEDS: FUROSEMIDE 40 MG in SYRINGE 0 ML IV SCH ×2 (11:46→17:33)
--- NOTE | 2019-09-16 15:59 | Hospitalist Progress Note ---
Date of Service September 16, 2019 Assessment & Plan (1) CHF exacerbation: Ischemic cardiomyopathy Mostly related to noncompliance due his paranoid schizophrenia Has been intermittently refusing lasix, but agreed to take it after talking to him today I counselled extensively on need for this and need to adhere to fluid restriction even after discharge ECHO on 06/07 showed EF 40-45% On IV lasix 40mg BID Cardiology on board Continue monitor I/O. Net fluid was -348 ml yesterday Continue 2L fluid restriction daily Plan to change to po tomorrow Monitor BMP (2) CAD (coronary artery disease): s/p stent Intermittently refuses certain medications Counselled patients on need for these medications (3) Hypokalemia: K is 3.2 Continue repletion and monitoring (4) Hyperthyroidism: Continue Methimazole (Refused to take med) Check TSH in 6 to 8 weeks (5) Hypertension: BP currently borderline today Will monitor (6) DVT prophylaxis: DVT on Lovenox (But refuses intermittently) I spent sometime explaining to patient the need for various medications and the risks associated with not taking them. He seems to understand the risks. Will continue to reassess, if at any point there is concern about insight, may need to get psych for thorough assessment of capacity. General Weakness Fall precaution PT/OT eval Interested to go to rehab, Follow up PT recommendations Subjective Patient seen and examined. Patient refused to take his lasix earlier today. Reports fatigue which is improving since admission and some dyspnea on moderate exertion Has chronic right leg swelling. Reports occasional dry cough. No orthopnea, or PND Physical Exam Physical Exam: General: Cachetic, in no obvious distress Eyes: PERRL, conjunctivae normal, mild pallor, anicteric sclerae, EOM intact bilaterally ENMT: External ear and nose normal, oropharynx normal Neck: Normal visual inspection, no tracheal deviation, no swelling noted Respiratory: Normal respiratory effort, no respiratory distress, Fine basal crackles (L>R), good air entry bilaterally Cardiovascular: Pulse is RRR. S1 S2 Chest (Breasts): Chest: normal inspection of chest Gastrointestinal (Abdomen): Abdomen is not distended, soft, non-tender to palpation, no guarding, no palpable hepatosplenomegaly, normal bowel sounds Musculoskeletal: No cyanosis or clubbing, all extremities motor strength 5/5, Right LE edema (chronic, nonpitting) Neurologic: Alert and oriented x 3, No focal weakness, sensation grossly intact Psychiatric: Alert and oriented x 3, euthymic affect, no depressed affect Results & Data Vital Signs (Past 12 Hours) Vital Signs Temp Pulse Resp BP Pulse Ox 09/16/19 15:41 36.2 C L 73 16 99/64 L 97 09/16/19 07:15 36.5 C 78 18 109/71 99 Laboratory Results [facility] 09/16/19 05:42 Sodium 142 Potassium 3.2 L Chloride 105 Carbon Dioxide 30 BUN 28 H Creatinine 0.94 Glucose 96 Calcium 8.2 L (1) CHF exacerbation Heart failure type: unspecified Qualified Code(s): I50.9 - Heart failure, unspecified
[2019-09-16] MEDS ORDERED: FUROSEMIDE 40 MG in SYRINGE 0 ML IV STA (16:17)
[2019-09-16] MEDS ORDERED: POTASSIUM CHLORIDE 20 MEQ TABCR PO STA (16:26)
[2019-09-17] MEDS: PRASugrel TAB 10 MG TAB PO SCH (08:30)
[2019-09-17] MEDS: ATORVASTATIN 40 MG TAB PO SCH (08:30)
[2019-09-17] MEDS: METOPROLOL TARTRATE 25 MG TAB PO SCH ×2 (08:31→20:30)
[2019-09-17] MEDS: FUROSEMIDE 40 MG in SYRINGE 0 ML IV SCH ×3 (08:31→17:15)
[2019-09-17] MEDS: methIMAzole 5 MG TABLET PO SCH ×2 (08:31→20:31)
[2019-09-17] MEDS: POTASSIUM CHLORIDE 10 MEQ TABCR PO SCH ×2 (08:32→16:51)
[2019-09-17] MEDS: ENOXAPARIN INJ 30 MG/0.3 ML SYR SQ SCH (08:32)
[2019-09-17] MEDS: ASPIRIN 81 MG ECTAB PO SCH (08:32)
--- NOTE | 2019-09-17 18:52 | Hospitalist Progress Note ---
Date of Service September 17, 2019 Assessment & Plan (1) CHF exacerbation: Ischemic cardiomyopathy ECHO on 06/07 showed EF 40-45% Mostly related to noncompliance due his paranoid schizophrenia Has been intermittently refusing lasix, Present volume status stable with negative balance Cardiology on board Continue 2L fluid restriction daily (2) CAD (coronary artery disease): s/p stent Complaint of chest pain or angina symptom Intermittently refuses certain medications Counselled patients on need for these medications (3) Hypokalemia: K is 3.2 Patient has been refusing to take calcium tablets (4) Hyperthyroidism: Continue Methimazole (Refused to take med) Check TSH in 6 to 8 weeks (5) Hypertension: BP currently borderline (6) DVT prophylaxis: DVT on Lovenox (But refuses intermittently) Part note : I spent sometime explaining to patient the need for various medications and the risks associated with not taking them. He seems to understand the risks. Disposition: Patient is willing to go to rehab, request for [facility] referral PT OT consulted Service consult for discharge planning Subjective Shortness of breath, no dyspnea on exertion, no cough or respiratory distress Refused to take Lasix and potassium tablet today, Later this afternoon willing to take Lasix about does not want to take potassium tablet, even after telling that his potassium level is already low, taking Lasix can drop potassium level for better Volume status remains stable with negative balance, Hold off giving Lasix today as patient has been refusing Patient reports he is willing to go to [facility] No fever or chills, GI or issues Physical Exam Constitutional: + ill appearing; no acute distress Eyes: + anicteric sclerae ENMT: external ear and nose normal, oropharynx normal Neck: trachea midline, no thyromegaly Respiratory: normal respiratory effort, lungs clear to auscultation Cardiovascular: Rate/Rhythm: regular rate and regular rhythm Trace bilateral lower extremity edema Gastrointestinal (Abdomen): Percussion/Palpation: abdomen soft; abdomen nontender Skin: Chronic bilateral lower abdominal stasis change with chronic edema Neurologic: PERRL, EOMI, accommodation nl, no face palsy, no dysarthria Psychiatric: Orientation: alert, oriented to person and oriented to place Apperance: + disheveled Affect: + flat affect Results & Data Vital Signs (Past 12 Hours) Vital Signs Temp Pulse Resp BP BP Pulse Ox 09/17/19 15:47 36.6 C 75 20 107/70 100 09/17/19 07:39 36.2 C L 75 18 116/79 100 (1) CHF exacerbation Heart failure type: unspecified Qualified Code(s): I50.9 - Heart failure, unspecified
[2019-09-17] MEDS: TRAMADOL HCL 50 MG TABLET PO PRN (20:30)
[2019-09-18] MEDS: ASPIRIN 81 MG ECTAB PO SCH (08:06)
[2019-09-18] MEDS: FUROSEMIDE 40 MG in SYRINGE 0 ML IV SCH ×2 (08:08→16:19)
[2019-09-18] MEDS: ATORVASTATIN 40 MG TAB PO SCH (08:08)
[2019-09-18] MEDS: POTASSIUM CHLORIDE 10 MEQ TABCR PO SCH ×2 (08:09→16:19)
[2019-09-18] MEDS: ENOXAPARIN INJ 30 MG/0.3 ML SYR SQ SCH (08:09)
[2019-09-18] MEDS: PRASugrel TAB 10 MG TAB PO SCH (08:10)
[2019-09-18] MEDS: METOPROLOL TARTRATE 25 MG TAB PO SCH ×2 (08:10→19:58)
[2019-09-18] MEDS: methIMAzole 5 MG TABLET PO SCH ×2 (08:11→21:16)
--- NOTE | 2019-09-18 18:55 | Hospitalist Progress Note ---
Date of Service September 18, 2019 Assessment & Plan (1) CHF exacerbation: Ischemic cardiomyopathy ECHO on 06/07 showed EF 40-45% Mostly related to noncompliance due his paranoid schizophrenia He has been refusing Lasix and potassium supplement At present volume status stable with negative balance Continue to monitor Continue 2L fluid restriction daily (2) CAD (coronary artery disease): s/p stent Complaint of chest pain or angina symptom Refused to take aspirin this morning Counselled patients on need for these medications (3) Hypokalemia: K is 3.2 Patient has been refusing to take potassium tablet (4) Hyperthyroidism: Continue Methimazole (Refused to take med) Check TSH in 6 to 8 weeks (5) Hypertension: BP currently borderline (6) DVT prophylaxis: DVT on Lovenox (But refuses intermittently) Part note : I spent sometime explaining to patient the need for various medications and the risks associated with not taking them. He seems to understand the risks. Disposition: Patient declined rehab at [facility] Does not want to return back to his appointment Insist going to [facility] is his only chance to get back Request home oxygen Order for nocturnal pulse oximetry Social service following for discharge planning Subjective Continues to refuse, Lasix and potassium p.o. Major agreeable to get intravenous Lasix but does not want any potassium Counseling provided, patient's potassium level already low, giving further Lasix will decrease the potassium level diet and supplement Patient adamantly refuses, willing to take only "1 pill" Complaint of shortness of breath no orthopnea no cough no fever chills Physical Exam Constitutional: + ill appearing; no acute distress Eyes: + anicteric sclerae ENMT: external ear and nose normal, oropharynx normal Neck: trachea midline, no thyromegaly Respiratory: normal respiratory effort, lungs clear to auscultation Cardiovascular: Rate/Rhythm: regular rate and regular rhythm Gastrointestinal (Abdomen): Percussion/Palpation: abdomen soft; abdomen nontender Neurologic: PERRL, EOMI, accommodation nl, no face palsy, no dysarthria Psychiatric: Orientation: alert, oriented to person and oriented to place Apperance: + disheveled Affect: + flat affect Results & Data Vital Signs (Past 12 Hours) Vital Signs Temp Pulse Resp BP Pulse Ox 09/18/19 16:00 36.9 C 81 22 107/69 100 09/18/19 08:03 65 113/74 09/18/19 07:00 36.8 C 78 16 94/61 L 97 (1) CHF exacerbation Heart failure type: unspecified Qualified Code(s): I50.9 - Heart failure, unspecified
[2019-09-18] MEDS: OXYCODONE HCL IR 5 MG TAB (IMMEDIATE RELEASE) PO PRN (20:07)
[2019-09-19] MEDS: ENOXAPARIN INJ 30 MG/0.3 ML SYR SQ SCH (09:15)
[2019-09-19] MEDS: ASPIRIN 81 MG ECTAB PO SCH (09:15)
[2019-09-19] MEDS: ATORVASTATIN 40 MG TAB PO SCH (09:17)
[2019-09-19] MEDS: POTASSIUM CHLORIDE 10 MEQ TABCR PO SCH ×2 (09:17→18:32)
[2019-09-19] MEDS: FUROSEMIDE 40 MG in SYRINGE 0 ML IV SCH ×2 (09:17→18:33)
[2019-09-19] MEDS: METOPROLOL TARTRATE 25 MG TAB PO SCH ×2 (09:18→21:20)
[2019-09-19] MEDS: methIMAzole 5 MG TABLET PO SCH ×2 (09:19→21:20)
[2019-09-19] MEDS: OXYCODONE HCL IR 5 MG TAB (IMMEDIATE RELEASE) PO PRN ×2 (09:48→21:19)
[2019-09-19] MEDS: PRASugrel TAB 10 MG TAB PO SCH (11:37)
--- NOTE | 2019-09-19 16:59 | Hospitalist Progress Note ---
Date of Service September 19, 2019 Assessment & Plan (1) CHF exacerbation: Ischemic cardiomyopathy ECHO on 06/07 showed EF 40-45% Mostly related to noncompliance due his paranoid schizophrenia He has been refusing Lasix and potassium supplement At present volume status stable with negative balance Continue to monitor Continue 2L fluid restriction daily (2) CAD (coronary artery disease): s/p stent Complaint of chest pain or angina symptom Refused to take aspirin this morning Counselled patients on need for these medications (3) Hypokalemia: K is 3.2 Patient has been refusing to take potassium tablet (4) Hyperthyroidism: Continue Methimazole (Refused to take med) Check TSH in 6 to 8 weeks (5) Hypertension: BP currently borderline (6) DVT prophylaxis: DVT on Lovenox (But refuses intermittently) Disposition: Patient declined rehab at [facility] Refused nocturnal pulse oximetry Social service following for discharge planning To discharge patient department tomorrow Subjective Patient refuses to have nocturnal pulse oximetry, refusing Lasix, calcium tablet Insist on going to rehab, patient was declined by insurance Plan to discharge patient to his apartment tomorrow Physical Exam Constitutional: + ill appearing; no acute distress Eyes: + anicteric sclerae ENMT: external ear and nose normal, oropharynx normal Neck: trachea midline, no thyromegaly Respiratory: normal respiratory effort, lungs clear to auscultation Cardiovascular: Rate/Rhythm: regular rate and regular rhythm Gastrointestinal (Abdomen): Percussion/Palpation: abdomen soft; abdomen nontender Neurologic: PERRL, EOMI, accommodation nl, no face palsy, no dysarthria Psychiatric: Orientation: alert, oriented to person and oriented to place Apperance: + disheveled Affect: + flat affect Results & Data Vital Signs (Past 12 Hours) Vital Signs Temp Pulse Resp BP BP Pulse Ox 09/19/19 15:08 36.6 C 81 18 120/81 99 09/19/19 09:10 80 108/70 09/19/19 07:28 36.7 C 80 18 115/77 100 (1) CHF exacerbation Heart failure type: unspecified Qualified Code(s): I50.9 - Heart failure, unspecified
[2019-09-20] MEDS: ATORVASTATIN 40 MG TAB PO SCH (09:22)
[2019-09-20] MEDS: PRASugrel TAB 10 MG TAB PO SCH (09:22)
[2019-09-20] MEDS: POTASSIUM CHLORIDE 10 MEQ TABCR PO SCH ×2 (09:22→17:34)
[2019-09-20] MEDS: ASPIRIN 81 MG ECTAB PO SCH (09:22)
[2019-09-20] MEDS: FUROSEMIDE 40 MG in SYRINGE 0 ML IV SCH ×2 (09:22→17:35)
[2019-09-20] MEDS: methIMAzole 5 MG TABLET PO SCH ×2 (09:23→21:51)
[2019-09-20] MEDS: ENOXAPARIN INJ 30 MG/0.3 ML SYR SQ SCH (09:23)
[2019-09-20] MEDS: METOPROLOL TARTRATE 25 MG TAB PO SCH ×2 (09:23→22:31)
[2019-09-20] MEDS: OXYCODONE HCL IR 5 MG TAB (IMMEDIATE RELEASE) PO PRN (09:31)
[2019-09-20] MEDS ORDERED: PROCHLORPERAZINE 10 MG in SYRINGE 8 ML IV ONE (14:00)
[2019-09-20] MEDS ORDERED: KETOROLAC TROMETHAMINE 15 MG/ML VIAL IV ONE (15:18)
[2019-09-20] MEDS ORDERED: PROCHLORPERAZINE MALEATE 5 MG TAB PO PRN (17:43)
[2019-09-20] MEDS ORDERED: PROCHLORPERAZINE 10 MG in SYRINGE 8 ML IV PRN (17:44)
[2019-09-20] MEDS ORDERED: KETOROLAC 30 MG/ML VIAL IV PRN (17:44)
--- NOTE | 2019-09-20 17:54 | Hospitalist Progress Note ---
Date of Service September 20, 2019 Assessment & Plan (1) CHF exacerbation: Volume status has been stable so far Ischemic cardiomyopathy ECHO on 06/07 showed EF 40-45% Presented with with volume overload -increased weight, lower extremity swelling shortness of breath due to acute on chronic decompensated CHF with systolic dysfunction He has been refusing Lasix and potassium supplement-intermittently pt is known to be very noncompliant with his medication on discharge due his paranoid schizophrenia Continue 2L fluid restriction daily (2) CAD (coronary artery disease): s/p stent Complaint of chest pain or angina symptom refusing to take medication intermittently Counselled patients on need for these medications (3) Hypokalemia: K is 3.2 Patient has been refusing to take potassium tablet (4) Hyperthyroidism: Continue Methimazole (Refused to take med) (5) Hypertension: BP currently borderline (6) DVT prophylaxis: DVT on Lovenox (But refuses intermittently) Disposition: Patient is interested to go to rehab And ambulating independently without without any need for assistance Patient's insurance declined rehab at [facility]-functional capacity activity at baseline To have home oxygen no Desaturation noted during daytime/adequate oxygenation in room air Refused nocturnal pulse oximetry-to assess for nighttime O2 Social service following for discharge planning Discharge home to his apartment Refuses to have home health visiting nurse at his apartment Subjective Patient was scheduled to be discharged to apartment today Patient's been very disappointed not able to go to [facility] secondary to insurance nonapproval This a.m. says he is feeling nauseous, felt dizzy and lightheaded when went to the bathroom Having pain all over his body(did not have any complaint of pain or discomfort for the last several days) Does not feel today's a good day to be discharged to his own apartment Requesting stronger pain meds, also different nausea medication and Phenergan (not helping at all) Zofran cannot be ordered secondary to prolonged QTC Ordered for PRN IV Toradol IV Compazine as needed for nausea This management updated regarding canceling plan to discharge patient home today Physical Exam Constitutional: + ill appearing; no acute distress Eyes: + anicteric sclerae ENMT: external ear and nose normal, oropharynx normal Neck: trachea midline, no thyromegaly Respiratory: normal respiratory effort, lungs clear to auscultation Cardiovascular: Rate/Rhythm: regular rate and regular rhythm Gastrointestinal (Abdomen): Percussion/Palpation: abdomen soft; abdomen nontender Neurologic: PERRL, EOMI, accommodation nl, no face palsy, no dysarthria Psychiatric: Orientation: alert, oriented to person and oriented to place Apperance: + disheveled Affect: + flat affect Results & Data Vital Signs (Past 12 Hours) Vital Signs Temp Pulse Resp BP BP Pulse Ox 09/20/19 15:03 36.5 C 92 H 18 129/80 100 09/20/19 07:12 36.7 C 77 20 119/77 98 (1) CHF exacerbation Heart failure type: unspecified Qualified Code(s): I50.9 - Heart failure, unspecified
[2019-09-21] MEDS: POTASSIUM CHLORIDE 10 MEQ TABCR PO SCH ×2 (08:21→16:53)
[2019-09-21] MEDS: ATORVASTATIN 40 MG TAB PO SCH (08:21)
[2019-09-21] MEDS: ASPIRIN 81 MG ECTAB PO SCH (08:21)
[2019-09-21] MEDS: METOPROLOL TARTRATE 25 MG TAB PO SCH ×2 (08:23→20:18)
[2019-09-21] MEDS: ENOXAPARIN INJ 30 MG/0.3 ML SYR SQ SCH (08:23)
[2019-09-21] MEDS: FUROSEMIDE 40 MG in SYRINGE 0 ML IV SCH ×3 (08:23→20:19)
[2019-09-21] MEDS: PRASugrel TAB 10 MG TAB PO SCH (08:23)
[2019-09-21] MEDS: methIMAzole 5 MG TABLET PO SCH ×2 (08:24→20:18)
--- NOTE | 2019-09-21 16:19 | Hospitalist Progress Note ---
Date of Service September 21, 2019 Assessment & Plan (1) CHF exacerbation: Volume status has been stable, Ischemic cardiomyopathy ECHO on 06/07 showed EF 40-45% Presented with with volume overload -increased weight, lower extremity swelling shortness of breath due to acute on chronic decompensated CHF with systolic dysfunction He has been refusing Lasix and potassium supplement-intermittently pt is known to be very noncompliant with his medication on discharge due his paranoid schizophrenia Continue 2L fluid restriction daily (2) CAD (coronary artery disease): s/p stent Complaint of chest pain or angina symptom refusing to take medication intermittently Counselled patients on need for these medications (3) Hypokalemia: K is 3.2 Patient has been refusing to take potassium tablet (4) Hyperthyroidism: Continue Methimazole (Refused to take med) (5) Hypertension: BP currently borderline (6) DVT prophylaxis: DVT on Lovenox (But refuses intermittently) Disposition: Patient is interested to go to rehab And ambulating independently without without any need for assistance Patient's insurance declined rehab at [facility]-functional capacity activity at baseline To have home oxygen no Desaturation noted during daytime/adequate oxygenation in room air Refused nocturnal pulse oximetry-to assess for nighttime O2 Social service following for discharge planning Discharge home to his apartment Refuses to have home health visiting nurse at his apartment Continue to monitor patient was secondary to episodes of nausea, abdominal pain Plan is to discharge to home on Monday if remains medically stable Subjective No change in status, complain of shortness of breath, no hypoxia complains of intermittent nausea, started on PRN Compazine, patient reports of having improvement of symptoms Physical Exam Constitutional: + ill appearing; no acute distress Eyes: + anicteric sclerae ENMT: external ear and nose normal, oropharynx normal Neck: trachea midline, no thyromegaly Respiratory: normal respiratory effort, lungs clear to auscultation Cardiovascular: Rate/Rhythm: regular rate and regular rhythm Gastrointestinal (Abdomen): Percussion/Palpation: abdomen soft; abdomen nontender Neurologic: PERRL, EOMI, accommodation nl, no face palsy, no dysarthria Psychiatric: Orientation: alert, oriented to person and oriented to place A pperance: + disheveled Affect: + flat affect Results & Data Vital Signs (Past 12 Hours) Vital Signs Temp Pulse Resp BP BP Pulse Ox 09/21/19 15:03 36.9 C 92 H 18 134/85 99 09/21/19 07:00 36.4 C L 88 18 132/81 100 (1) CHF exacerbation Heart failure type: unspecified Qualified Code(s): I50.9 - Heart failure, unspecified
[2019-09-21] MEDS: OXYCODONE HCL IR 5 MG TAB (IMMEDIATE RELEASE) PO PRN (16:57)
[2019-09-21] MEDS: FLUTICASONE PROPIONATE NA SPR 16 GM BTL SCH (23:33)
[2019-09-22] MEDS: OXYCODONE HCL IR 5 MG TAB (IMMEDIATE RELEASE) PO PRN (06:40)
[2019-09-22] MEDS: PRASugrel TAB 10 MG TAB PO SCH (08:17)
[2019-09-22] MEDS: ATORVASTATIN 40 MG TAB PO SCH (08:17)
[2019-09-22] MEDS: FLUTICASONE PROPIONATE NA SPR 16 GM BTL SCH (08:20)
[2019-09-22] MEDS: POTASSIUM CHLORIDE 10 MEQ TABCR PO SCH ×2 (08:20→16:27)
[2019-09-22] MEDS: FUROSEMIDE 40 MG in SYRINGE 0 ML IV SCH ×2 (08:20→16:27)
[2019-09-22] MEDS: ASPIRIN 81 MG ECTAB PO SCH (08:20)
[2019-09-22] MEDS: METOPROLOL TARTRATE 25 MG TAB PO SCH ×2 (08:21→16:24)
[2019-09-22] MEDS: methIMAzole 5 MG TABLET PO SCH ×2 (08:21→20:40)
[2019-09-22] MEDS: ENOXAPARIN INJ 30 MG/0.3 ML SYR SQ SCH (08:21)
--- NOTE | 2019-09-22 13:30 | Hospitalist Progress Note ---
Date of Service September 22, 2019 Assessment & Plan (1) CHF exacerbation: Volume status has been stable, Ischemic cardiomyopathy ECHO on 06/07 showed EF 40-45% Presented with with volume overload -increased weight, lower extremity swelling/ shortness of breath due to acute on chronic decompensated CHF with systolic dysfunction Ischemic cardiomyopathy He has been refusing Lasix and potassium supplement-intermittently Patient refused to take Lasix today,-As he is worried about losing more weight, Counseling provided: Lasix is a water pill which will prevent fluid buildup in his legs and his lungs Patient is still not convinced, He feels fine,Does not want to take anymore medication pt is known to be very noncompliant with his medications due to his paranoid schizophrenia Continue 2L fluid restriction daily (2) CAD (coronary artery disease): s/p stent No complaint of chest pain or angina symptom refusing to take medication Intermittently Multiple times counseling provided by previous providers and myself Patient is paranoid: thinks those medications will cause him to get sick" (3) Hypokalemia: K is 3.2 Patient has been refusing to take potassium tablet (4) Hyperthyroidism: ordered for Methimazole (Refused to take med) (5) Hypertension: BP currently borderline (6) DVT prophylaxis: DVT on Lovenox (But refuses intermittently) Disposition: Patient is interested to go to rehab And ambulating independently without without any need for assistance Patient's insurance declined rehab at [facility]-functional capacity activity at baseline To have home oxygen no Desaturation noted during daytime/adequate oxygenation in room air Refused nocturnal pulse oximetry-to assess for nighttime O2 Social service following for discharge planning Discharge home to his apartment Refuses to have home health visiting nurse at his apartment pt is having anxiety and distress thinking about : discharged to his Apartment tomorrow there is something wrong in the apartment the past home health nurse -broke the bathroom also he has not been feeling well lately needs to have at least " one good day " before discharge Subjective Patient states "not having a good day today" Could not specify a particular discomfort or symptom Thinks something is not right, Does not feel that he will be able to return back to his apartment tomorrow Does not want to to take anymore Lasix, as he is already "very skinny" Needs to gain weight with more food Does not need Lasix Worried about possible conspiracy of the kitchen staff-there is one particular kitchen staff, spying on him-came to his room 4 times yesterday which he found very unsettling Patient is counseled, the reason for kitchen staff's coming to his room : to deliver food trays ,take orders and take away food trays Patient is not convinced, kept on saying," something is not right here"-they are not giving him the food that ordered Taking away his snacks/cookies He is losing weight, needs more food Paranoid delusion noted(history of underlying schizophrenia) Denies of hearing voices, or seeing things No thoughts of self-harm his biggest concern is-" I just need more food" Thinks that he is not getting the food that he ordered patient remains cooperative, no agitation or combativeness Updated nursing staff, Food trays should be taken to patient's room by the nursing staff's only, to prevent anxiety, agitation to the patient Patient trusts the nurses and Aids/MERCHANDISING COORDINATOR's on this floor Thinks they are a bunch of" reliable people" But not sure about the kitchen stuff Physical Exam Constitutional: + ill appearing; no acute distress Eyes: + anicteric sclerae ENMT: external ear and nose normal, oropharynx normal Neck: trachea midline, no thyromegaly Respiratory: normal respiratory effort, lungs clear to auscultation Cardiovascular: Rate/Rhythm: regular rate and regular rhythm Gastrointestinal (Abdomen): Percussion/Palpation: abdomen soft; abdomen nontender Neurologic: PERRL, EOMI, accommodation nl, no face palsy, no dysarthria Psychiatric: Orientation: alert, oriented to person and oriented to place Apperance: + disheveled Affect: + labile affect Thought Content: + paranoid Suicidal Thoughts: denies suicidal thoughts and denies suicidal intent Hallucinations: no auditory hallucinations, no visual hallucinations and no tactile hallucinations Results & Data Vital Signs (Past 12 Hours) Vital Signs Temp Pulse Resp BP Pulse Ox 09/22/19 07:21 36.5 C 84 16 122/87 100 (1) CHF exacerbation Heart failure type: unspecified Qualified Code(s): I50.9 - Heart failure, unspecified
[2019-09-22] MEDS: TRAMADOL HCL 50 MG TABLET PO PRN (14:25)
[2019-09-22] MEDS ORDERED: METOPROLOL TARTRATE 25 MG TAB PO ONE (18:13)
--- NOTE | 2019-09-22 18:16 | Hospitalist Progress Note ---
Date of Service September 22, 2019 Subjective attending addendum : evening Vitals shows HR > 140 BP 110 /83 12 lead EKG shows RBBB HR > 140 compared to prior EKG HR increased , no change in Rhytm pt does not have any complain of chest pain , Dizzy spelll of palpitation , no SOB has been refusing to take meds Last time took lopressor few days back Evening dose of lopressor 12.5 mg given repeat Vital in 1 hr HR remains in 140's pt asymtpmatic ordered 25 mg PO Lorpessor X1 if HR remains persistently elevated may need to be transferred to tele for IV lopressor will update night time special education associate hospitalist Joy Francis MD Results & Data Vital Signs (Past 12 Hours) Vital Signs Temp Pulse Resp BP BP Pulse Ox 09/22/19 17:49 149 H 20 119/89 09/22/19 15:27 36.8 C 149 H 21 123/98 98 09/22/19 07:21 36.5 C 84 16 122/87 100
[2019-09-23] MEDS: PRASugrel TAB 10 MG TAB PO SCH (09:03)
[2019-09-23] MEDS: ATORVASTATIN 40 MG TAB PO SCH (09:03)
[2019-09-23] MEDS: POTASSIUM CHLORIDE 10 MEQ TABCR PO SCH ×2 (09:06→17:10)
[2019-09-23] MEDS: FLUTICASONE PROPIONATE NA SPR 16 GM BTL SCH (09:06)
[2019-09-23] MEDS: ASPIRIN 81 MG ECTAB PO SCH (09:06)
[2019-09-23] MEDS: ENOXAPARIN INJ 30 MG/0.3 ML SYR SQ SCH (09:06)
[2019-09-23] MEDS: methIMAzole 5 MG TABLET PO SCH ×2 (09:06→20:36)
[2019-09-23] MEDS: FUROSEMIDE 40 MG in SYRINGE 0 ML IV SCH ×2 (09:06→17:10)
[2019-09-23] MEDS: METOPROLOL TARTRATE 25 MG TAB PO SCH ×2 (10:11→20:36)
--- NOTE | 2019-09-23 18:30 | Hospitalist Progress Note ---
Date of Service September 23, 2019 Assessment & Plan (1) CHF exacerbation: Volume status has been stable, Ischemic cardiomyopathy ECHO on 06/07 showed EF 40-45% Presented with with volume overload -increased weight, lower extremity swelling/ shortness of breath due to acute on chronic decompensated CHF with systolic dysfunction Ischemic cardiomyopathy He has been refusing Lasix and potassium supplement--As he is worried about losing more weight, Counseling provided: Lasix is a water pill which will prevent fluid buildup in his legs and his lungs Patient is still not convinced, He feels fine,Does not want to take anymore medication pt is known to be very noncompliant with his medications due to his paranoid schizophrenia Continue 2L fluid restriction daily (2) CAD (coronary artery disease): s/p stent No complaint of chest pain or angina symptom refusing to take medication Intermittently Multiple times counseling provided by previous providers and myself Patient is paranoid: thinks those medications will cause him to get sick" SINUS TACHYCARDIA : has been refusing Beta polo does not have any symptoms after long time counselling pt is willing to take Beta polo ( does not want to be transferred to Tele unit for IV lopressor , prefers to stay in this room ) lopressor dose increased to 25 mg BID HR inproved after inititation of beta polo (3) Hypokalemia: K is 3.2 Patient has been refusing to take potassium tablet (4) Hyperthyroidism: ordered for Methimazole (Refused to take med) (5) Hypertension: BP currently borderline (6) DVT prophylaxis: DVT on Lovenox (But refuses intermittently) Disposition: Patient is interested to go to rehab And ambulating independently without without any need for assistance Patient's insurance declined rehab at [facility]-functional capacity activity at baseline To have home oxygen no Desaturation noted during daytime/adequate oxygenation in room air Refused nocturnal pulse oximetry-to assess for nighttime O2 Social service following for discharge planning Discharge home to his apartment Refuses to have home health visiting nurse at his apartment pt is having anxiety and distress thinking about : discharged to his Apartment tomorrow there is something wrong in the apartment the past home health nurse -broke the bathroom got very upset as a new pt arrived to his room later pt was changed to different room MR Masterson was alone -still continues to be agitated with paranoid thoughts Subjective took lopressor this AM HR in low 90's continue to refuse Lasix , K tablet got very upset as another pt was wheeled into his room Physical Exam Constitutional: + ill appearing; no acute distress Eyes: + anicteric sclerae ENMT: external ear and nose normal, oropharynx normal Neck: trachea midline, no thyromegaly Respiratory: normal respiratory effort, lungs clear to auscultation Cardiovascular: Rate/Rhythm: regular rate and regular rhythm Gastrointestinal (Abdomen): Percussion/Palpation: abdomen soft; abdomen nontender Neurologic: PERRL, EOMI, accommodation nl, no face palsy, no dysarthria Psychiatric: Orientation: alert, oriented to person and oriented to place Apperance: + disheveled Affect: + labile affect Thought Content: + paranoid Suicidal Thoughts: denies suicidal thoughts and denies suicidal intent Hallucinations: no auditory hallucinations, no visual hallucinations and no tactile hallucinations Results & Data Vital Signs (Past 12 Hours) Vital Signs Temp Pulse Resp BP BP Pulse Ox 09/23/19 15:37 36.4 C L 77 18 105/70 100 09/23/19 15:12 36.3 C L 82 18 135/82 100 09/23/19 07:00 36.7 C 74 18 117/73 98 (1) CHF exacerbation Heart failure type: unspecified Qualified Code(s): I50.9 - Heart failure, unspecified
[2019-09-24] MEDS: FUROSEMIDE 40 MG in SYRINGE 0 ML IV SCH ×2 (08:36→17:57)
[2019-09-24] MEDS: ENOXAPARIN INJ 30 MG/0.3 ML SYR SQ SCH (08:36)
[2019-09-24] MEDS: METOPROLOL TARTRATE 25 MG TAB PO SCH ×2 (08:36→20:30)
[2019-09-24] MEDS: methIMAzole 5 MG TABLET PO SCH ×2 (08:36→20:45)
[2019-09-24] MEDS: PRASugrel TAB 10 MG TAB PO SCH (08:37)
[2019-09-24] MEDS: ATORVASTATIN 40 MG TAB PO SCH (08:37)
[2019-09-24] MEDS: POTASSIUM CHLORIDE 10 MEQ TABCR PO SCH ×2 (08:37→17:57)
[2019-09-24] MEDS: ASPIRIN 81 MG ECTAB PO SCH (08:38)
[2019-09-24] MEDS: FLUTICASONE PROPIONATE NA SPR 16 GM BTL SCH (08:40)
[2019-09-24] MEDS: OXYCODONE HCL IR 5 MG TAB (IMMEDIATE RELEASE) PO PRN ×2 (08:45→23:16)
[2019-09-24] MEDS: TRAMADOL HCL 50 MG TABLET PO PRN (16:24)
--- NOTE | 2019-09-24 19:16 | Hospitalist Progress Note ---
Date of Service September 24, 2019 Assessment & Plan (1) CHF exacerbation: Volume status has been stable, Ischemic cardiomyopathy ECHO on 06/07 showed EF 40-45% Presented with with volume overload -increased weight, lower extremity swelling/ shortness of breath due to acute on chronic decompensated CHF with systolic dysfunction Ischemic cardiomyopathy He has been refusing Lasix and potassium supplement--As he is worried about losing more weight, Counseling provided: Lasix is a water pill which will prevent fluid buildup in his legs and his lungs Patient is still not convinced, He feels fine,Does not want to take anymore medication pt is known to be very noncompliant with his medications due to his paranoid schizophrenia Continue 2L fluid restriction daily (2) CAD (coronary artery disease): s/p stent No complaint of chest pain or angina symptom refusing to take medication Intermittently Multiple times counseling provided by previous providers and myself Patient is paranoid: thinks those medications will cause him to get sick" SINUS TACHYCARDIA : Hr in 80's now took lopressor has been refusing Beta polo does not have any symptoms due to tachycarida after long time counselling pt is willing to take Beta polo ( does not want to be transferred to Tele unit for IV lopressor , prefers to stay in this room ) lopressor dose increased to 25 mg BID HR improved after pt started to take Lopressor pt known not to take any of his meds after discharge (3) Hypokalemia: K is 3.2 Patient has been refusing to take potassium tablet (4) Hyperthyroidism: ordered for Methimazole (Refused to take med) (5) Hypertension: BP currently borderline (6) DVT prophylaxis: DVT on Lovenox (But refuses intermittently) Disposition: Patient is interested to go to rehab And ambulating independently without without any need for assistance Patient's insurance declined rehab at [facility]-functional capacity activity at baseline To have home oxygen no Desaturation noted during daytime/adequate oxygenation in room air did not complete nocturnal pulse oximetry( as discussed above ) -to assess for nighttime O2 Social service following for discharge planning plan is to Discharge home to his apartment pt is willing to go home tomorrow afternoon , but only if home 02 is arranged Refuses to have home health visiting nurse at his apartment pt is having anxiety and distress thinking about : discharged to his Apartment tomorrow there is something wrong in the apartment the past home health nurse -broke the bathroom got very upset as a new pt arrived to his room later pt was changed to different room MR Masterson was alone -still continues to be agitated with paranoid thoughts Subjective pt still feels very agitated ,panicked with the episode of having another pt in his room says he is still trying to get over the shock initially refused to take Lasix ,as he is only 120lb , can not afford to lose more wt after counselling ( his leg edema will return and worsen) he is willing to take one dose of IV lasix tonight and no more thinking of going home tomorrow but absolutely needs 02 at home he did not complete nocturnal pulse oximetry as the sp02 did not go below 97 % he watched it till 4 am and took his probe off , as he was sure that he will not qualify and if he continues the test -something bad will happen but strongly feels he needs 02 , as every day he wakes up feeling short of breath Physical Exam Constitutional: + ill appearing; no acute distress Eyes: + anicteric sclerae ENMT: external ear and nose normal, oropharynx normal Neck: trachea midline, no thyromegaly Respiratory: normal respiratory effort, lungs clear to auscultation Cardiovascular: Rate/Rhythm: regular rate and regular rhythm Gastrointestinal (Abdomen): Percussion/Palpation: abdomen soft; abdomen nontender Neurologic: PERRL, EOMI, accommodation nl, no face palsy, no dysarthria Psychiatric: Orientation: alert, oriented to person and oriented to place Apperance: + disheveled Affect: + labile affect Thought Content: + paranoid Suicidal Thoughts: denies suicidal thoughts and denies suicidal intent Hallucinations: no auditory hallucinations, no visual hallucinations and no tactile hallucinations Results & Data Vital Signs (Past 12 Hours) Vital Signs Temp Pulse Resp BP Pulse Ox 09/24/19 15:00 36.4 C L 84 18 111/72 100 (1) CHF exacerbation Heart failure type: unspecified Qualified Code(s): I50.9 - Heart failure, unspecified
[2019-09-24] MEDS ORDERED: FUROSEMIDE 40 MG in SYRINGE 0 ML IV STA (19:53)
--- NOTE | 2019-09-25 07:28 | Hospitalist Progress Note ---
Date of Service September 25, 2019 Subjective Pt insists that he needs oxygen and requests talking to Dr. Belle. He currently denies any chest pain, shortness of breath, abd. pain, nausea, vomiting. Says "everything is good". Results & Data Vital Signs (Past 12 Hours) Vital Signs Temp Pulse Resp BP Pulse Ox 09/24/19 23:32 36.7 C 76 20 110/78 98 Medications Administered Current Inpatient Medications Acetaminophen (Tylenol) 650 mg PO Q4H PRN PRN Reason: Pain or Fever Stop: 10/11/19 21:51 [facility]ir[facility]) [facility] [place]: 10/12/19 08:59 Last Admin: 09/24/19 08:38 Dose: Not Given Documented by: Atorvastatin Calcium (Lipitor) 80 mg PO QAM [facility] Stop: 10/12/19 08:59 Last Admin: 09/24/19 08:37 Dose: 20 mg Documented by: Enoxaparin Sodium (Lovenox) [facility] [place] Stop: 10/12/19 08:59 Last Admin: 09/24/19 08:36 Dose: Not Given Documented by: Fluticasone Propionate (Flonase) 1 sprays NA DAILY [facility] Stop: 10/21/19 23:04 Last Admin: 09/24/19 08:40 Dose: Not Given Documented by: Promethazine HCl 12.5 mg/ (Sodium Chloride) 50.5 mls @ 202 mls/hr IV Q6H PRN PRN Reason: Nausea And Vomiting Stop: 10/11/19 21:51 Last Infusion: 09/11/19 23:46 Dose: Infused Documented by: Furosemide 40 mg/ Syringe 4 mls @ 4 mls/min IV BID17 [facility] Stop: 10/13/19 19:59 Last Admin: 09/24/19 17:57 Dose: Not Given Documented by: Prochlorperazine 10 mg/ (Syringe) 10 mls @ 5 mls/min IV Q6H PRN PRN Reason: Nausea And Vomiting Stop: 10/20/19 17:43 Ipratropium Cisco (Atrovent 0.02% 0.5mg/2.5ml) 0.5 mg INH Q4H PRN PRN Reason: SOB/WHEEZING Stop: 10/11/19 21:51 Levalbuterol HCl (Xopenex 1.25mg/0.5ml Neb) 1.25 mg INH Q4H PRN PRN Reason: SOB/WHEEZING Stop: 10/11/19 21:51 Methimazole (Tapazole) 5 mg PO BID [facility] Stop: 10/12/19 08:59 Last Admin: 09/24/19 20:45 Dose: Not Given Documented by: Metoprolol Tartrate (Lopressor) 25 mg PO BID [facility] Stop: 10/23/19 20:59 Last Admin: 09/24/19 20:30 Dose: 25 mg Documented by: Nitroglycerin (Nitrostat) 0.4 mg SL UD PRN PRN Reason: Chest Pain Stop: 10/11/19 21:51 Oxycodone HCl (Roxicodone Immediate Rel) 5 mg PO Q12H PRN PRN Reason: Pain Stop: 09/27/19 19:33 Last Admin: 09/24/19 23:16 Dose: 5 mg Documented by: Potassium Chloride (Klor-Con M10) 20 meq PO BID17 [facility] Stop: 10/12/19 08:59 Last Admin: 09/24/19 17:57 Dose: Not Given Documented by: Prasugrel (Effient) 10 mg PO QAM [facility] Stop: 10/12/19 08:59 Last Admin: 09/24/19 08:37 Dose: 10 mg Documented by: Tramadol HCl (Ultram) 50 mg PO Q8 PRN PRN Reason: Pain Stop: 10/22/19 14:15 Last Admin: 09/24/19 16:24 Dose: 50 mg Documented by:
[2019-09-25] MEDS: METOPROLOL TARTRATE 25 MG TAB PO SCH (08:07)
[2019-09-25] MEDS: ATORVASTATIN 40 MG TAB PO SCH (08:07)
[2019-09-25] MEDS: ASPIRIN 81 MG ECTAB PO SCH (08:08)
[2019-09-25] MEDS: methIMAzole 5 MG TABLET PO SCH (08:08)
[2019-09-25] MEDS: PRASugrel TAB 10 MG TAB PO SCH (08:08)
[2019-09-25] MEDS: POTASSIUM CHLORIDE 10 MEQ TABCR PO SCH (08:08)
[2019-09-25] MEDS: ENOXAPARIN INJ 30 MG/0.3 ML SYR SQ SCH (08:09)
[2019-09-25] MEDS: FLUTICASONE PROPIONATE NA SPR 16 GM BTL SCH (08:09)
--- NOTE | 2019-09-25 11:35 | Hospitalist Progress Note ---
Date of Service September 25, 2019 Assessment & Plan (1) CHF exacerbation: Volume status has been stable, hx Ischemic cardiomyopathy ECHO on 06/07 showed EF 40-45% Presented with with volume overload -increased weight, lower extremity swelling/ shortness of breath due to acute on chronic decompensated CHF with systolic dysfunction Ischemic cardiomyopathy He has been refusing Lasix and potassium supplement--As he is worried about losing more weight, Counseling provided: Lasix is a water pill which will prevent fluid buildup in his legs and his lungs Patient is still not convinced, He feels fine,Does not want to take anymore medication pt is known to be very noncompliant with his medications due to his paranoid schizophrenia Continue 2L fluid restriction daily pt will be discharged home today with PO Lasix and K supplement hospital follow up scheduled with family physician in a week (2) CAD (coronary artery disease): s/p stent No complaint of chest pain or angina symptom refusing to take medication Intermittently Multiple times counseling provided by previous providers and myself Patient is paranoid: thinks those medications will cause him to get sick" SINUS TACHYCARDIA : secondary to not taking Lopressor Hr in 80's now after taking beta polo has been refusing Beta polo does not have any symptoms due to tachycarida after long time counselling pt is willing to take Beta polo ( does not want to be transferred to Tele unit for IV lopressor , prefers to stay in this room ) lopressor dose increased to 25 mg BID HR improved after pt started to take Lopressor script for Lopressor 25 mg BID sent to his pharmacy Hospital follow up scheduled with Dr Vora next Monday10/01/2019 pt known not to take any of his meds after discharge pt is counselled repeatedly (3) Hypokalemia: Patient has been refusing to take potassium tablet (4) Hyperthyroidism: ordered for Methimazole (Refused to take med) (5) Hypertension: BP currently borderline (6) DVT prophylaxis: DVT on Lovenox (But refuses intermittently) Disposition: pt is medically stable to be discharged home today does not qualify for the home 02 pt is discharged to his Apartment today Taxi voucher for transport to Apartment given to pt Subjective pt thinks today he can return back to his apartment but thinks he needs the oxygen insists that he is given prescription for Oxygen and the 02 supply to be delivered to his apartment pt is counselled with out a formal 2 step exercise testing or nocturnal pulse oximetry -insurance will not cover the cost of the Oxygen and he will not be able to afford the out of pocket cost 2 step exercise done today -no de saturation noted at rest or ambulation does not qualify for home 02 CM updated -pt will need a Taxi Voucher to return to apartment does not want Home Health visiting nurse service but worried that his Apartment administration had to be contacted to allow him to get into his place will update case management all his Meds scripts sent To his Pharmacy at [facility] and counselling provided numerous times importance of taking medications as directed pt still remains impulsive about taking meds , and continues to pick and chose which medication he will take in a daily basis medically if remains stable lower ext edema has resolved no hypoxia , no LOCK , no orthopnea stable to be discharged to his Apartment home today Physical Exam Constitutional: + ill appearing; no acute distress Eyes: + anicteric sclerae ENMT: external ear and nose normal, oropharynx normal Neck: trachea midline, no thyromegaly Respiratory: normal respiratory effort, lungs clear to auscultation Cardiovascular: Rate/Rhythm: regular rate and regular rhythm Gastrointestinal (Abdomen): Percussion/Palpation: abdomen soft; abdomen nontender Neurologic: PERRL, EOMI, accommodation nl, no face palsy, no dysarthria Psychiatric: Orientation: alert, oriented to person and oriented to place Apperance: + disheveled Affect: + labile affect Thought Content: + paranoid Suicidal Thoughts: denies suicidal thoughts and denies suicidal intent Hallucinations: no auditory hallucinations, no visual hallucinations and no tactile hallucinations Results & Data Vital Signs (Past 12 Hours) Vital Signs Temp Pulse Resp BP Pulse Ox 09/25/19 08:00 36.5 C 80 18 111/77 99 (1) CHF exacerbation Heart failure type: unspecified Qualified Code(s): I50.9 - Heart failure, unspecified
--- NOTE | 2019-09-25 12:14 | Discharge Summary ---
Date of Service September 25, 2019 Admission HPI Per Admitting Provider History obtained from patient and records. Medical history significant for chronic systolic heart failure secondary to ischemic cardiomyopathy EF 45%, TTE 2018), severe MR, CAD status post stent, hypertension, hx PAF, paranoid schizophrenia, past hx DVT, hxf testicular CA sp surgery and chemotherapy, past tobacco abuse, chronic anemia (baseline hemoglobin of 10-11), chronic lymphedema, medication noncompliance. Recent confinement June 15 - July 16, [address] elevation MT status post bare-metal stent placement. EEG showed EF 40 to 45% with acute MR. Paroxysmal A. fib during confinement. Patient subsequently discharged to [facility] facility. Erratic compliance with discharge meds (aspirin, beta-polo, statin, Lasix) at rehab facility as per records. Patient discharged from rehab facility second week of July,. 2 weeks history of worsening shortness of breath on exertion without chest pain, unusual cough symptoms. Wheezing noted by home health nurses. Patient admits to not taking some of the heart meds he's supposed to take. Denies dietary indiscretion. Denies abdominal pain symptoms. Increasing weakness. Unable to see PCP for appointment. At the ER, patient received Lasix for CHF, aspirin given for troponin elevation. Ativan given prior to CT study. Medical History as above Surgical History : Appendectomy, orchiectomy Family History : Heart disease Personal/Social history : Past tobacco abuse, no EtOH intake, disabled Principal Diagnosis Decompensated CHF with systolic dysfunction, ischemic cardiomyopathy, volume overload, medication noncompliant Discharge Exam Constitutional + ill appearing; no acute distress Eyes + anicteric sclerae ENMT external ear and nose normal, oropharynx normal Neck trachea midline, no thyromegaly Respiratory normal respiratory effort, lungs clear to auscultation Cardiovascular Rate/Rhythm: regular rate and regular rhythm Gastrointestinal (Abdomen) Percussion/Palpation: abdomen soft; abdomen nontender Neurologic PERRL, EOMI, accommodation nl, no face palsy, no dysarthria Psychiatric Orientation: alert, oriented to person and oriented to place Apperance: + disheveled Affect: + labile affect Thought Content: + paranoid Suicidal Thoughts: denies suicidal thoughts and denies suicidal intent Hallucinations: no auditory hallucinations, no visual hallucinations and no tactile hallucinations Discharge Data Allergies Allergy/AdvReac Type Severity Reaction Status Date / Time horse dander Allergy Unknown HORSE HAIR Verified 09/11/19 14:30 tetanus toxoid, adsorbed Allergy Unknown Verified 09/11/19 14:30 Consultations 09/11/19 18:19 ED Decision to Admit Stat 09/11/19 21:52 Consult Cardiology Routine Ordered Studies 09/11/19 14:53 CT angio chest PE protocol Stat Hospital Course (1) CHF exacerbation: Volume status has been stable, hx Ischemic cardiomyopathy ECHO on 06/07 showed EF 40-45% Presented with with volume overload -increased weight, lower extremity swelling/ shortness of breath due to acute on chronic decompensated CHF with systolic dysfunction Ischemic cardiomyopathy He has been refusing Lasix and potassium supplement--As he is worried about losing more weight, Counseling provided: Lasix is a water pill which will prevent fluid buildup in his legs and his lungs Patient is still not convinced, He feels fine,Does not want to take anymore medication pt is known to be very noncompliant with his medications due to his paranoid schizophrenia Continue 2L fluid restriction daily pt will be discharged home today with PO Lasix and K supplement hospital follow up scheduled with family physician in a week (2) CAD (coronary artery disease): s/p stent No complaint of chest pain or angina symptom refusing to take medication Intermittently Multiple times counseling provided by previous providers and myself Patient is paranoid: thinks those medications will cause him to get sick" SINUS TACHYCARDIA : secondary to not taking Lopressor Hr in 80's now after taking beta polo has been refusing Beta polo does not have any symptoms due to tachycarida after long time counselling pt is willing to take Beta polo ( does not want to be transferred to Tele unit for IV lopressor , prefers to stay in this room ) lopressor dose increased to 25 mg BID HR improved after pt started to take Lopressor script for Lopressor 25 mg BID sent to his pharmacy Hospital follow up scheduled with Dr Vora next Monday10/01/2019 pt known not to take any of his meds after discharge pt is counselled repeatedly (3) Hypokalemia: Patient has been refusing to take potassium tablet (4) Hyperthyroidism: ordered for Methimazole (Refused to take med) (5) Hypertension: BP currently borderline (6) DVT prophylaxis: DVT on Lovenox (But refuses intermittently) Disposition: pt is medically stable to be discharged home today does not qualify for the home 02 pt is discharged to his Apartment today Taxi voucher for transport to Apartment given to pt Total Time Total Time Spent Total Time Spent (In Minutes): approx 45 mins Total Time Includes: Examination of the Patient, Discharge Planning and Medication Reconciliation Discharge Plan Discharge Items Patient Disposition: Home - Self-Care Reason For Visit: CHF Discharge Diagnosis: Decompensated CHF with systolic dysfunction, ischemic cardiomyopathy, volume overload, medication noncompliant Activity: Resume your previous activity Non-emergency contact: Primary Care Provider Call non-emergency contact if: you have any medication questions Follow-up/Referrals: Misty Vora MD [Physician] - 10/01/19 1:20 pm Diet: Heart Healthy Fluids: 2000ml (8 cups) Addtl Attending Provider Instructions: HOSPITAL FOLLOW UP with Dr. Misty Vora on monday10/01/2019 @ 1: 20 PM IT IS VERY IMPORTANT FOR YOU TO TAKE MEDICATIONS DIRECTED Call your Primary Care doctor if any of the following symptoms or problems start or get worse: * Shortness of breath or difficulty breathing * Wake up at night short of breath * Chest pain * Cough * Swelling of your hands, feet, or legs * More fatigued or tired with your normal activity * Palpitations - sudden fast heart beats WEIGHT * Weigh yourself every morning after using the bathroom. * Use the same scale. * Wear the same amount of clothing. * Write your weight down on a chart. * Call your Primary Care doctor if you gain more than 2-3 pounds in 1-2 days. MEDICATIONS * Use this discharge instruction sheet for medication instructions. * Take your medications at the time your doctor ordered. * Do not skip a dose of your medicines. * If you miss a dose of medicine, take it as soon as possible, but DO NOT DOUBLE A DOSE. * Read your medicine information when you get home. * Know all of the side effects of your medicine. If in doubt, ask your pharmacist * Call your Primary Care doctor's office if you have any side effects. * Be sure all of your doctors know what medicine and herbs you take (including cold, flu, and herbal medicine). Take the following with you to your follow-up doctor appointments: * Weight Chart * Medication List * List of questions Do not drink excessive alcohol, beer or wine. Pending Studies at Discharge: No Stand-Alone Forms: My [facility], Smoking Cessation Medications and DC Order Prescriptions: New methimazole 5 mg Tablet 5 mg PO BID 30 Days Qty: 60 RF: 0 potassium chloride [Klor-Con M10] 10 mEq Tablet,Er Particles/Crystals 20 meq PO BID17 30 Days Qty: 60 RF: 0 furosemide [Lasix] 40 mg tablet 40 mg PO BID Qty: 60 RF: 0 metoprolol tartrate 25 mg Tablet 25 mg PO BID 30 Days Qty: 60 RF: 0 Continued atorvastatin 40 mg Tablet 80 mg PO QAM Qty: 30 RF: 0 nitroglycerin [Nitrostat] 0.4 mg Tablet, Sublingual 0.4 mg sublingual PRN PRN (Reason: chest pain) Qty: 30 RF: 0 prasugrel [Effient] 10 mg Tablet 10 mg PO QAM Qty: 30 RF: 0 aspirin [Ecotrin Low Strength] 81 mg Tablet,Delayed Release (Dr/Ec) 81 mg PO QAM Qty: 30 RF: 0 tramadol 50 mg tablet 50 mg PO Q8 PRN (Reason: Pain) RF: 0 Discharge Orders: Discharge Order (Routine); Ordered 09/25/19 Ordered By: Joy Belle Admission Data Admit Date/Time: 09/11/19 20:14 Attending Provider: Junaid Enciso Admit Provider: Trung Montiel Primary Care Provider: PCP,NO Other Providers: [facility] ; Chelsea Mosley ; Jenaro Carter ; Funmi Valentine ; [place] ; Joy Belle Other Interventions: Discharge Summary Assessment (RN) Last Done: 09/25/19 12:03
[2019-09-25] MEDS: OXYCODONE HCL IR 5 MG TAB (IMMEDIATE RELEASE) PO PRN (12:46)
== END 2019-09-25 16:02 | disposition home health service (06) | DRG 292 ==
LOC: ED 13:48 → SUATTDRO 20:14 → 2S 20:14 → 4W 09-15 17:00

== ENCOUNTER 2019-10-14 01:50 | Inpatient (IN) ==
[2019-10-14 02:35] LABS: Basophils # (auto) 0.02 K/uL (0-0.2); Basophils % (auto) 0.3 %; Eosinophils # (auto) 0.17 K/uL (0-0.5); Eosinophils % (auto) 2.5 %; Hematocrit (blood only) 30.7 % (42-52); Hemoglobin 9.8 g/dL (14.0-18.0); Immature Granulocytes # (auto) 0.01 K/uL (0.00-0.02); Immature Granulocytes % (auto) 0.1 %; Lymphocytes # (auto) 0.56 K/uL (1.2-3.4); Lymphocytes % (auto) 8.2 %; Mean Corpuscular Hemoglobin 26.7 pg (25-34); Mean Corpuscular Hgb Conc 31.9 g/dL (32-36); Mean Corpuscular Volume 83.7 fL (80-100); Mean Platelet Volume 9.1 fL (7.4-10.4); Monocytes % (auto) 5.8 %; Neutrophils % (auto) 83.1 %; Platelet Count 167 K/uL (130-400); RDW Coefficient of Variation 15.3 % (11.5-14.5); RDW Standard Deviation 46.7 fL (36.4-46.3); Red Blood Count 3.67 M/uL (4.7-6.1); White Blood Count 6.86 K/uL (4.8-10.8)
[2019-10-14 03:03] LABS: Albumin Level 2.5 gm/dl (3.4-5.0); BUN Creatinine Ratio 17.8 (10-20); Calcium 8.4 mg/dl (8.5-10.1); Creatinine Clr Calc Pharmacy 64.5 ml/min; Est GFR (Non-African American) 88.9; Potassium 3.2 mmol/L (3.5-5.1)
[2019-10-14 03:17] LABS: Albumin Globulin Ratio 0.6 (0.9-2); Bilirubin,Total 0.5 mg/dl (0.2-1); Thyroid Stimulating Hormone 0.277 uIu/ml (0.300-4.500); Total Protein 6.5 gm/dl (6.4-8.2); Troponin I 0.056 ng/ml (0-0.045)
[2019-10-14] MEDS ORDERED: METOPROLOL TARTRATE 1 MG/ML VIAL IV STA (03:47)
[2019-10-14] MEDS ORDERED: POTASSIUM CHLORIDE 20 MEQ TABCR PO STA ×2 (04:14→08:02)
[2019-10-14 04:28] LABS: Magnesium 1.6 mg/dl (1.8-2.4)
[2019-10-14 04:43] LABS: Partial Thromboplastin Ratio 1.1; Partial Thromboplastin Time 29.6 Seconds (21.0-31.0)
[2019-10-14] MEDS ORDERED: fentaNYL citrate 100 MCG/2 ML VIAL IV STA (04:46)
[2019-10-14 04:49] LABS: T4 Free Thyroxine 1.29 ng/dl (0.8-1.6)
[2019-10-14] MEDS: METOPROLOL TARTRATE 25 MG TAB PO SCH ×2 (04:57→21:01)
--- NOTE | 2019-10-14 04:57 | History & Physical Report ---
Date of Service October 14, 2019 Assessment & Plan (1) Atypical chest pain: Rule out PE Past history DVT as per records Right-sided abdominal pain Etiology to be determined Troponin elevation secondary to tachycardia chronic systolic heart failure secondary to ischemic cardiomyopathy EF 45%, TTE 2019), some congestion secondary to missed medications severe MR CAD status post stent hypertension, stable hx PAF, some tachycardia secondary to missed medications/electrolyte abnormali ties/medication noncompliance Poor candidate for home anticoagulation due to paranoid schizophrenia hx testicular CA sp surgery and chemotherapy past tobacco abuse chronic anemia, hemoglobin at baseline Hyperthyroidism, medication noncompliance chronic lymphedema Malnutrition RE low BMI OBS PCU Facilitate home meds Replace electrolytes Trend troponin CT chest PE study RE right-sided chest pain CT abdomen pelvis RE right-sided abdominal pain Further management pending work-up results Social service RE discharge planning Nutrition consult RE low BMI DVT prophylaxis. Heparin subcu Full code History of Present Illness Chief Complaint: Chest pain, right-sided abdominal pain heart pounding Primary Care Provider: Dr. Misty Vora History obtained from patient and records. Medical history significant for chronic systolic heart failure secondary to ischemic cardiomyopathy EF 45%, TTE 2019), severe MR, CAD status post stent, hypertension, hx PAF, paranoid schizophrenia, past hx DVT, hxf testicular CA sp surgery and chemotherapy, past tobacco abuse, chronic anemia (baseline hemoglobin of 10-11), chronic lymphedema, medication noncompliance. Recent confinement last month for decompensated CHF. [facility] As per patient, he did not have medications at home on discharge Medications will be refilled until October 16, 2019. No follow-up with PCP. Riri business case analyst unable to contact patient on multiple attempts as per outpatient notes. 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 Patient woke up this morning with sudden right-sided chest discomfort and shortness of breath. Achy right-sided abdominal pain. No constipation/diarrhea/patient. Medical History as above Surgical History : Appendectomy, orchiectomy Family History : Heart disease Personal/Social history : Past tobacco abuse, no EtOH intake, disabled Allergies Allergy/AdvReac Type Severity Reaction Status Date / Time horse dander Allergy Unknown HORSE HAIR Verified 10/14/19 02:15 tetanus toxoid, adsorbed Allergy Unknown Unknown Verified 10/14/19 02:15 Home Medications Home Medications Medication Instructions Recorded Confirmed Type aspirin [Ecotrin Low Strength] 81 mg PO QAM #30 tab 08/27/19 11/25/19 Rx atorvastatin 80 mg PO QAM #30 tab 07/16/19 10/14/19 Rx nitroglycerin [Nitrostat] 0.4 mg SUBLINGUAL PRN PRN #30 tab 07/16/19 10/14/19 Rx prasugrel [Effient] 10 mg PO QAM #30 tab 07/16/19 10/14/19 Rx tramadol 50 mg PO Q8 PRN 09/11/19 10/14/19 History methimazole 5 mg PO BID 30 Days #60 tab 09/21/19 10/14/19 Rx potassium chloride [Klor-Con M10] 20 meq PO BID17 30 Days #60 tab 09/21/19 10/14/19 Rx furosemide [Lasix] 40 mg PO BID #60 tab 09/25/19 10/14/19 Rx metoprolol tartrate 25 mg PO BID 30 Days #60 tab 09/25/19 10/14/19 Rx Past Med/Surg History Social History Preferred Language: Amharic Communication Ability: Effective Matrix Bath Operator Required: No Beliefs That Will Affect Care: None Current Living Situation: Alone Current Living Situation Comment: apartment Other Information That Helps Us Care for You: No Feels Safe at Home: Yes Safety Concerns: Feels Safe At This Time Smoking Status: Former smoker Do You Dip or Chew Tobacco: No ; Number of Years Since Quit: 10 ; Second Hand Exposure: No ; Tobacco Cessation Education Requested by Patient: No Hx Alcohol Use: Yes Alcohol type: hard liquor Hx Substance Use: No Review of Systems Review of Systems: As per HPI, all 10 systems reviewed, all other ROS negative Physical Exam Physical Exam: GENERAL: Anxious, chronic dysphonia, minimal respiratory distress, underweight SKIN: Pallor , warm HEENT: Pale palpebral conjunctivae, no ptosis, dry buccal mucosa NECK : Supple, no tenderness CHEST : Decreased breath sounds, minimal right-sided chest wall tenderness HEART : RRR, systolic murmur ABDOMEN: Scaphoid abdomen, right-sided abdominal tenderness EXTREMITIES : Chronic bilateral LE swelling RLE greater than the left; minimal RLE tenderness NEUROLOGIC : Coherent, no facial asymmetry, no other gross focality Results & Data Vital Signs (Past 12 Hours) Vital Signs Temp Pulse Resp BP Pulse Ox 10/14/19 04:30 85 24 126/89 95 10/14/19 04:00 86 17 124/88 97 10/14/19 03:51 100 H 127/95 10/14/19 03:30 99 H 19 127/95 100 10/14/19 03:00 101 H 17 151/105 H 95 10/14/19 02:30 95 H 20 130/84 99 10/14/19 02:13 99 H 23 127/78 98 10/14/19 01:54 36.4 C L 97 H 21 143/95 H 98 Laboratory Results Laboratory Results WBC 6.86 K/uL (4.8-10.8) 10/14/19 02:20 RBC 3.67 M/uL (4.7-6.1) L 10/14/19 02:20 Hgb 9.8 g/dL (14.0-18.0) L 10/14/19 02:20 Hct 30.7 % (42-52) L 10/14/19 02:20 MCV 83.7 fL (80-100) 10/14/19 02:20 MCH 26.7 pg (25-34) 10/14/19 02:20 MCHC 31.9 g/dL (32-36) L 10/14/19 02:20 RDW Std Deviation 46.7 fL (36.4-46.3) H 10/14/19 02:20 RDW Coeff of Dante 15.3 % (11.5-14.5) H 10/14/19 02:20 Plt Count 167 K/uL (130-400) 10/14/19 02:20 MPV 9.1 fL (7.4-10.4) 10/14/19 02:20 Immature Gran % (Auto) 0.1 % 10/14/19 02:20 Neut % (Auto) 83.1 % 10/14/19 02:20 Lymph % (Auto) 8.2 % 10/14/19 02:20 Angelina % (Auto) 5.8 % 10/14/19 02:20 Eos % (Auto) 2.5 % 10/14/19 02:20 Baso % (Auto) 0.3 % 10/14/19 02:20 Immature Gran # (Auto) 0.01 K/uL (0.00-0.02) 10/14/19 02:20 Neut # (Auto) 5.70 K/uL (1.4-6.5) 10/14/19 02:20 Lymph # (Auto) 0.56 K/uL (1.2-3.4) L 10/14/19 02:20 Angelina # (Auto) 0.40 K/uL (0.11-0.59) 10/14/19 02:20 Eos # (Auto) 0.17 K/uL (0-0.5) 10/14/19 02:20 Baso # (Auto) 0.02 K/uL (0-0.2) 10/14/19 02:20 APTT 29.6 Seconds (21.0-31.0) 10/14/19 02:27 PTT Ratio 1.1 10/14/19 02:27 Sodium 142 mmol/L (136-145) 10/14/19 02:20 Potassium 3.2 mmol/L (3.5-5.1) L 10/14/19 02:20 Chloride 114 mmol/L (98-107) H 10/14/19 02:20 Carbon Dioxide 22 mmol/L (21-32) 10/14/19 02:20 Anion Gap 6.0 (3-11) 10/14/19 02:20 BUN 16 mg/dl (7-18) 10/14/19 02:20 Creatinine 0.88 mg/dl (0.6-1.4) 10/14/19 02:20 Est Cr Clr Drug Dosing 64.5 ml/min 10/14/19 02:20 Est GFR ( Amer) 103.0 10/14/19 02:20 Est GFR (Non-Af Amer) 88.9 10/14/19 02:20 BUN/Creatinine Ratio 17.8 (10-20) 10/14/19 02:20 Glucose 105 mg/dl (70-99) H 10/14/19 02:20 Calcium 8.4 mg/dl (8.5-10.1) L 10/14/19 02:20 Magnesium 1.6 mg/dl (1.8-2.4) L 10/14/19 02:20 Total Bilirubin 0.5 mg/dl (0.2-1) 10/14/19 02:20 AST 23 U/L (15-37) 10/14/19 02:20 ALT 20 U/L (12-78) 10/14/19 02:20 Alkaline Phosphatase 126 U/L (45-117) H 10/14/19 02:20 Troponin I 0.056 ng/ml (0-0.045) H* 10/14/19 02:20 Total Protein 6.5 gm/dl (6.4-8.2) 10/14/19 02:20 Albumin 2.5 gm/dl (3.4-5.0) L 10/14/19 02:20 Globulin 4.0 gm/dl (2.5-4.0) 10/14/19 02:20 Albumin/Globulin Ratio 0.6 (0.9-2) L 10/14/19 02:20 Lipase 160 U/L (73-393) 10/14/19 02:20 TSH 0.277 uIu/ml (0.300-4.500) L 10/14/19 02:20 Free T4 1.29 ng/dl (0.8-1.6) 10/14/19 02:20 Diagnostic Findings Chest x-ray as per my interpretation congestion EKG as per my interpretation : Rate 105, sinus tachycardia, normal axis, T wave flattening lateral leads Code Status & VTE Plan VTE Prophylaxis Plan VTE Prophylaxis will be ordered: Yes
[2019-10-14] MEDS ORDERED: OPTIRAY 320 125ml IV PRN (05:30)
[2019-10-14] MEDS ORDERED: NITROGLYCERIN SL 0.4 MG/TAB TAB SL PRN (05:39)
[2019-10-14] MEDS ORDERED: ACETAMINOPHEN 325 MG TAB PO PRN (05:39)
[2019-10-14] MEDS ORDERED: PROMETHAZINE HCL 12.5 MG in SODIUM CHLORIDE 0.9% 50 ML IV PRN (05:39)
--- NOTE | 2019-10-14 06:50 | CT Scan Report ---
CT ANGIOGRAM OF THE CHEST CLINICAL HISTORY: Atypical chest pain. Shortness of breath. COMPARISON STUDY: 09/11/2019 TECHNIQUE: Following the IV administration of mL of Optiray-320, CT angiogram of the thorax was perfo rmed from the thoracic inlet to the lung bases utilizing the pulmonary embolus protocol. Images are r eviewed in the axial, sagittal, and coronal planes. IV contrast was administered without complication . MIP imaging was performed. A dose lowering technique was utilized adhering to the principles of AL KATERINE. CT DOSE: FINDINGS: No pathologically enlarged axillary mediastinal or hilar lymph nodes were visualized. There was no evidence of thoracic aortic dilatation. There were no pulmonary artery filling defects to indicate acute pulmonary embolism. There are small bilateral pleural effusions There is pulmonary edema. There is septal thickening. There is lower lobe bronchial wall thickening. There is reflux of contrast into hepatic veins suggesting elevated right heart pressures. The heart i s enlarged. There are coronary artery calcifications. There is pulmonary edema with a 5 cm focus of clustered cysts within the left upper lobe. There is a suggestion of mild biliary ductal dilatation There is right renal atrophy. IMPRESSION: 1. No evidence of acute pulmonary embolism 2. Suspected congestive heart failure/fluid overload. 3. Pulmonary emphysema. 4. Lower lobe bronchial wall thickening. Electronically signed by: Villa Almeida M.D. 10/14/2019 6:48 AM
--- NOTE | 2019-10-14 06:53 | CT Scan Report ---
CT abd pelvis IV con only CLINICAL HISTORY: 69 years-old Male presenting with right-sided abdominal pain. TECHNIQUE: Multidetector CT of the abdomen and pelvis was performed after the administration of intra venous contrast. IV contrast: 117 mL of Optiray 320. One or more dose lowering techniques were used c onsistent with the principles of ALARA (as low as reasonably achievable), including automatic exposur e control, mA or kV adjustment to individual patient size, and/or use of iterative reconstruction. COMPARISON: 01/21/2017. CT DOSE (mGy.cm): The estimated cumulative dose is 535.88 mGy.cm. FINDINGS: Product Analyst topogram: Surgical clips project over the right lower quadrant. Lung bases: Moderate multichamber enlargement of the heart. Small pericardial effusion. Small bilater al pleural effusions. Extensive lower lobe bronchial wall thickening and interlobular septal thickeni ng. Dependent atelectasis as well as patchy superimposed groundglass opacity. Liver: Normal morphology. Heterogeneous enhancement may relate to the early portal venous phase. Allo wing for the phase of contrast, no focal lesion. Hepatic veins not yet opacified. Hepatic artery and portal veins patent. Biliary: Marked central predominant intrahepatic and extrahepatic biliary ductal dilatation, which is slightly increased from prior. The common bile duct measures 1.7 cm in diameter in the midportion. N o gross evidence of obstructing mass or calculus. Gallbladder wall thickening versus or cholecystic f luid. Mucosal hyperemia of the gallbladder. Pancreas: Pancreatic ductal dilatation slightly increased from prior exam. No gross evidence of an ob structing calculus or mass. Spleen: Normal. Adrenal glands: Normal. Kidneys and ureters: Severe atrophy of the right kidney. Normal left kidney allowing for the phase of contrast. No nephrolithiasis or hydronephrosis. Left ureter nondistended. Bladder: Possible asymmetric wall thickening along the right anterolateral aspect of the bladder. Pelvic organs: Prostate and seminal vesicles normal. Bowel: Mild stool burden throughout normal caliber colon. The appendix is not visualized and surgical clips are noted in the right lower quadrant as on prior exam no bowel obstruction. Fluid noted in th e mid small bowel. Feces noted in the distal small bowel likely indicating delayed transit, bacterial overgrowth, or an incompetent ileocecal valve. Peritoneal cavity: Mesenteric edema. Trace free fluid in the pelvis. No free intraperitoneal gas. Lymph nodes: Allowing for diffuse infiltrative fat planes, no lymphadenopathy. Vasculature: Prominent varices in the abdominal wall. There is nonopacification and likely chronic oc clusion of the IVC and common iliac veins. This could account for the presence of the prominent colla teral vasculature the abdominal wall. Prominent veins in the retrocrural regions also noted. Diffuse atherosclerosis including along the origins and courses of several of the major branch vessels most p rominently the superior mesenteric artery. Abdominal wall: Severe body wall edema. Musculoskeletal: Degenerative changes of the spine. IMPRESSION: 1. Interval increase in marked biliary ductal dilatation as well as increased pancreatic ductal dila tation. No evidence of an obstructing mass or calculus allowing for limitations of this single phase CT examination. Given this was present to a significant degree on the prior exam, this could represen ts a benign stricture at the sphincter of Oddi among other possibilities. Correlate with LFTs. 2. Gallbladder wall thickening/pericholecystic fluid. This is nonspecific in the setting of volume o verload. 3. Volume overload with congestive change and pulmonary edema at the lung bases, pericardial and ple ural effusions, anasarca, and mesenteric edema. 4. Fluid in the mid small bowel could indicate a mild enteritis among other etiologies. Feces in the distal small bowel without evidence of bowel obstruction, possibly due to delayed transit, bacterial overgrowth, or an incompetent ileocecal valve. 5. Chronic IVC occlusion. 6. Additional findings as above. Electronically signed by: Delta Gotti M.D. 10/14/2019 6:52 AM
--- NOTE | 2019-10-14 07:07 | XRay Report ---
XR chest 1V portable CLINICAL HISTORY: Chest pain. COMPARISON STUDY: Chest CT and chest radiograph September 11, 2019. FINDINGS: There is no pneumothorax. Moderate cardiomegaly is noted. Mild pulmonary edema is present. Small bilateral pleural effusions are present. IMPRESSION: Mild pulmonary edema with small bilateral pleural effusions. Electronically signed by: Terence Donahue M.D. 10/14/2019 7:06 AM
--- NOTE | 2019-10-14 07:16 | Emergency Department Note ---
Entered by Jose Roberto Rodriguez acting as a scribe for History of Present Illness General Chief complaint: Chest Pain Stated complaint: chest pain Time Seen by Provider: 10/14/19 02:00 Source: patient History of Present Illness Onset (ago): day(s) (this morning) Location: chest Pain Consistency: + now resolved Maximum Pain Intensity: 2 Associated symptoms: + other (Positive for episodes of dizziness and near syncope as well as SOB and leg swelling.) The patient is a 69 year old male who presents to the emergency department with complaints of resolved chest pain beginning this morning. The patient states t hat he woke up with chest pain this morning. He notes that his chest pain resolved once EMS arrived and was able to calm him down. He reports that he has been episodes of dizziness and near syncope for the last few days. He also complains of SOB and leg swelling. The patient states that he has not been taking his medication since coming out of the hospital. Home Medications Home Medications Medication Instructions Recorded Confirmed Type aspirin [Ecotrin Low Strength] 81 mg PO QAM #30 tab 07/16/19 10/14/19 Rx atorvastatin 80 mg PO QAM #30 tab 07/16/19 10/14/19 Rx nitroglycerin [Nitrostat] 0.4 mg SUBLINGUAL PRN PRN #30 tab 07/16/19 10/14/19 Rx prasugrel [Effient] 10 mg PO QAM #30 tab 07/16/19 10/14/19 Rx tramadol 50 mg PO Q8 PRN 09/11/19 10/14/19 History methimazole 5 mg PO BID 30 Days #60 tab 09/21/19 10/14/19 Rx potassium chloride [Klor-Con M10] 20 meq PO BID17 30 Days #60 tab 09/21/19 10/14/19 Rx furosemide [Lasix] 40 mg PO BID #60 tab 09/25/19 10/14/19 Rx metoprolol tartrate 25 mg PO BID 30 Days #60 tab 09/25/19 10/14/19 Rx Allergies Allergy/AdvReac Type Severity Reaction Status Date / Time horse dander Allergy Unknown HORSE HAIR Verified 10/14/19 02:15 tetanus toxoid, adsorbed Allergy Unknown Unknown Verified 10/14/19 02:15 Past Med/Surg History Social History Preferred Language: Ukrainian Communication Ability: Effective Inspector Of Dredging Required: No Beliefs That Will Affect Care: None Current Living Situation: Alone Current Living Situation Comment: apartment Other Information That Helps Us Care for You: No Feels Safe at Home: Yes Safety Concerns: Feels Safe At This Time Smoking Status: Former smoker Do You Dip or Chew Tobacco: No ; Number of Years Since Quit: 10 ; Second Hand Exposure: No ; Tobacco Cessation Education Requested by Patient: No Hx Alcohol Use: Yes Alcohol type: hard liquor Hx Substance Use: No Review of Systems See HPI for pertinent positives & negatives. and A total of 10 systems reviewed and were otherwise negative Physical Exam Vital Signs Vital Signs - 24 hr 10/14/19 01:54 10/14/19 02:13 10/14/19 02:18 Temperature 36.4 C L Temperature Source Oral Pulse Rate 97 H 99 H Pulse Rate from SpO2 Sensor 103 H Respiratory Rate 21 23 Respiratory Effort / Characteristics Non-Labored Spontaneous Respiratory Depth Normal Blood Pressure 143/95 H 127/78 Blood Pressure Mean 111 86 Pulse Oximetry 98 98 Oxygen Delivery Method Room Air Room Air Room Air Sepsis Recent Fever Within 48 Hours No Sepsis New/Unexplained Change in Mental Status No Sepsis Action Taken by Nursing No Action Required 10/14/19 02:30 10/14/19 03:00 10/14/19 03:30 Temperature Temperature Source Pulse Rate 95 H 101 H 99 H Pulse Rate from SpO2 Sensor 95 H 106 H 99 H Respiratory Rate 20 17 19 Respiratory Effort / Characteristics Respiratory Depth Blood Pressure 130/84 151/105 H 127/95 Blood Pressure Mean 99 114 105 Pulse Oximetry 99 95 100 Oxygen Delivery Method Room Air Room Air Room Air Sepsis Recent Fever Within 48 Hours Sepsis New/Unexplained Change in Mental Status Sepsis Action Taken by Nursing 10/14/19 03:51 10/14/19 04:00 10/14/19 04:30 Temperature Temperature Source Pulse Rate 100 H 86 85 Pulse Rate from SpO2 Sensor 87 88 Respiratory Rate 17 24 Respiratory Effort / Characteristics Respiratory Depth Blood Pressure 127/95 124/88 126/89 Blood Pressure Mean 103 100 Pulse Oximetry 97 95 Oxygen Delivery Method Room Air Room Air Sepsis Recent Fever Within 48 Hours Sepsis New/Unexplained Change in Mental Status Sepsis Action Taken by Nursing General: Looks much better than usual. HEENT: Head - normocephalic and atraumatic Pupils are equal, round, and reactive to light. Extraocular eye muscles are intact, and sclera are anicteric. Nose - moist nasal mucosa without discharge. Mouth - moist buccal mucosa. Oropharynx is nonerythematous and there is no tonsillar exudate or edema noted. Neck: Supple; no JVD, nuchal rigidity, cervical lymphadenopathy, or auscultated bruits. Heart: Regular rate and rhythm. There is a normal S1 and S2 with no murmurs, clicks, or gallops appreciated. Lungs: Clear to auscultation bilaterally with no wheezes, rales, or rhonchi. Abdomen: Soft, completely nontender, nondistended, with good bowel sounds. There are no palpable pulsatile masses or hepatosplenomegaly. There is no guarding, rigidity, or rebound noted. Extremities: No evidence of cyanosis or clubbing. There are easily palpable peripheral pulses. Significant lymphedema of right leg. Skin: warm and dry with good turgor and no rashes. Course Course 0206: The patient was evaluated in room A2. A complete history and physical examination were performed. Nursing notes and previous electronic medical records were reviewed. The patient's pre hospital EKG was reviewed. He had significant ST segment depression in lead V5 and V6 which is now resolved. IV lock was established and labs were drawn as above. The patient was observed on the matzo forming machine operator and pulse oximeter. He was in a normal sinus rhythm on the monitor. 0310: The patient had an episode of pounding chest pain and he was noted to be in atrial flutter with RVR. I reviewed the rhythm strips during the patient's episode and he was in atrial flutter with RVR. 0345: Upon reevaluation, the patient is stable. I discussed the findings and the treatment plan with the patient. He expresses agreement and understanding. [facility] The patient will be evaluated for further management. 0347: I rechecked the patient. He is still having intermittent episodes of palpitations. He will be given Lopressor. 0351: Metoprolol Tartrate 5mg IV Consultations Consultation #1: I [facility] the [facility] He will evaluate the patient for further management. Time: 03:45 Administered Medications Heparin Sodium (Porcine) (Heparin Sodium (Porcine)) 5,000 units SQ Q8 MIRZA Stop: 11/13/19 05:59 Last Admin: 10/14/19 07:17 Dose: Not Given Documented by: [id number] Ioversol (Optiray 320 125ml) 125 ml IV ONCE PRN PRN Reason: Interaction Checking Stop: 10/18/19 05:29 Last Admin: 10/14/19 05:30 Dose: 117 ml Documented by: [id number] Metoprolol Tartrate (Lopressor) 25 mg PO BID MIRZA Stop: 11/13/19 04:49 Last Admin: 10/14/19 04:57 Dose: 25 mg Documented by: [id number] Discontinued Medications Fentanyl Citrate (Fentanyl Citrate) 12.5 mcg IV NOW STA Stop: 10/14/19 04:47 Last Admin: 10/14/19 04:57 Dose: 12.5 mcg Documented by: [id number] Metoprolol Tartrate (Lopressor) 5 mg IV NOW STA Stop: 10/14/19 03:48 Last Admin: 10/14/19 03:51 Dose: 5 mg Documented by: [id number] Potassium Chloride (Klor-Con M20) 40 meq PO NOW STA Stop: 10/14/19 04:15 Last Admin: 10/14/19 05:11 Dose: Not Given Documented by: [id number] Medical Decision Making Differential Diagnosis Differential diagnoses include: hypertension, hypotension, vertigo, medication noncompliance, and cardiac dysrhythmia. Medical Records Attestation: I reviewed the patient's medical records. Home Medications Current Medication List: was personally reviewed by me Laboratory Data Attestation: I reviewed the patient's lab results. Result diagrams: 10/14/19 02:20 10/14/19 02:20 Lab Results 10/14/19 10/14/19 10/14/19 Range/Units 02:20 02:20 02:27 WBC 6.86 (4.8-10.8) K/uL RBC 3.67 L (4.7-6.1) M/uL Hgb 9.8 L (14.0-18.0) g/dL Hct 30.7 L (42-52) % MCV 83.7 (80-100) fL MCH 26.7 (25-34) pg MCHC 31.9 L (32-36) g/dL RDW Std Deviation 46.7 H (36.4-46.3) fL RDW Coeff of Dante 15.3 H (11.5-14.5) % Plt Count 167 (130-400) K/uL MPV 9.1 (7.4-10.4) fL Immature Gran % (Auto) 0.1 % Neut % (Auto) 83.1 % Lymph % (Auto) 8.2 % Waldo % (Auto) 5.8 % Eos % (Auto) 2.5 % Baso % (Auto) 0.3 % Immature Gran # (Auto) 0.01 (0.00-0.02) K/uL Neut # (Auto) 5.70 (1.4-6.5) K/uL Lymph # (Auto) 0.56 L (1.2-3.4) K/uL Waldo # (Auto) 0.40 (0.11-0.59) K/uL Eos # (Auto) 0.17 (0-0.5) K/uL Baso # (Auto) 0.02 (0-0.2) K/uL APTT 29.6 (21.0-31.0) Seconds PTT Ratio 1.1 Sodium 142 (136-145) mmol/L Potassium 3.2 L (3.5-5.1) mmol/L Chloride 114 H (98-107) mmol/L Carbon Dioxide 22 (21-32) mmol/L Anion Gap 6.0 (3-11) BUN 16 (7-18) mg/dl Creatinine 0.88 (0.6-1.4) mg/dl Est Cr Clr Drug Dosing 64.5 ml/min Est GFR ( Amer) 103.0 Est GFR (Non-Af Amer) 88.9 BUN/Creatinine Ratio 17.8 (10-20) Glucose 105 H (70-99) mg/dl Calcium 8.4 L (8.5-10.1) mg/dl Magnesium 1.6 L (1.8-2.4) mg/dl Total Bilirubin 0.5 (0.2-1) mg/dl AST 23 (15-37) U/L ALT 20 (12-78) U/L Alkaline Phosphatase 126 H (45-117) U/L Troponin I 0.056 H* (0-0.045) ng/ml Total Protein 6.5 (6.4-8.2) gm/dl Albumin 2.5 L (3.4-5.0) gm/dl Globulin 4.0 (2.5-4.0) gm/dl Albumin/Globulin Ratio 0.6 L (0.9-2) Lipase 160 (73-393) U/L TSH 0.277 L (0.300-4.500) uIu/ml Free T4 1.29 (0.8-1.6) ng/dl 10/14/19 Range/Units 04:44 WBC (4.8-10.8) K/uL RBC (4.7-6.1) M/uL Hgb (14.0-18.0) g/dL Hct (42-52) % MCV (80-100) fL MCH (25-34) pg MCHC (32-36) g/dL RDW Std Deviation (36.4-46.3) fL RDW Coeff of Dante (11.5-14.5) % Plt Count (130-400) K/uL MPV (7.4-10.4) fL Immature Gran % (Auto) % Neut % (Auto) % Lymph % (Auto) % Waldo % (Auto) % Eos % (Auto) % Baso % (Auto) % Immature Gran # (Auto) (0.00-0.02) K/uL Neut # (Auto) (1.4-6.5) K/uL Lymph # (Auto) (1.2-3.4) K/uL Waldo # (Auto) (0.11-0.59) K/uL Eos # (Auto) (0-0.5) K/uL Baso # (Auto) (0-0.2) K/uL APTT (21.0-31.0) Seconds PTT Ratio Sodium (136-145) mmol/L Potassium (3.5-5.1) mmol/L Chloride (98-107) mmol/L Carbon Dioxide (21-32) mmol/L Anion Gap (3-11) BUN (7-18) mg/dl Creatinine (0.6-1.4) mg/dl Est Cr Clr Drug Dosing ml/min Est GFR ( Amer) Est GFR (Non-Af Amer) BUN/Creatinine Ratio (10-20) Glucose (70-99) mg/dl Calcium (8.5-10.1) mg/dl Magnesium (1.8-2.4) mg/dl Total Bilirubin (0.2-1) mg/dl AST (15-37) U/L ALT (12-78) U/L Alkaline Phosphatase (45-117) U/L Troponin I 0.088 H* (0-0.045) ng/ml Total Protein (6.4-8.2) gm/dl Albumin (3.4-5.0) gm/dl Globulin (2.5-4.0) gm/dl Albumin/Globulin Ratio (0.9-2) Lipase (73-393) U/L TSH (0.300-4.500) uIu/ml Free T4 (0.8-1.6) ng/dl Imaging Data Attestation: I personally reviewed and interpreted this imaging study as follows: My Impression: CHEST X-RAY: Cardiomegaly. Compared to 09/11/2019, bilateral opacities have resolved and resolving pleural effusions. ECG Data Attestation: I personally reviewed and interpreted this ECG as follows: Indication: + chest pain Rate (beats per minute): 103 Rhythm: + sinus tachycardia Additional Comments: Flattened T waves in lead V6, 1 and AVL. EKG #2: Sinus tachycardia, 108, 3 beats of multifocal PVCs. Blood Pressure Blood Pressure Findings: Elevated blood pressure Blood Pressure Disposition: further management by hospitalist MAGGI Rodriges The patient is a 69 year old male who presents to the emergency department with complaints of resolved chest pain beginning this morning. The patient awoke from sleep with a pounding sensation in his left chest with some substernal chest discomfort. The patient was admitted to the hospital back in August. Upon discharge, the patient states that he was unable to get any of his medications and believes this is contributed to his symptoms. Upon evaluation here in the emergency department, the patient's chest discomfort and pounding sensation have resolved. His vital signs were stable. However, during his stay, the patient had an episode of pounding in his chest again which correlated to an episode of atrial flutter with RVR. The patient was noted to have an elevated troponin but this is not unusual for him. The patient will be evaluated by Dr. Guerin as the [facility] hospitalist. Impression & Plan Atrial flutter with rapid ventricular response, Palpitations, Elevated troponin Discharge Plan Visit Data *Final* Discharge Date/Time: 10/14/19 05:10 Chief Complaint: Chest Pain Stated Complaint: chest pain ED Provider: Zee Perry Discharge Problem: Atrial flutter with rapid ventricular response, Palpitations, Elevated troponin Patient Disposition: Admitted As Inpatient Discharge Instructions Interventions: ED Discharge Assessment Last Done: 10/14/19 05:10 The scribe's documentation has been prepared under my direction and personally reviewed by me in its entirety. I confirm that the note above accurately reflects all work, treatment, procedures, and medical decision making performed by me.
[2019-10-14] MEDS: HEPARIN SOD 5,000 UNIT/0.5 ML VIAL SQ SCH ×3 (07:17→22:00)
[2019-10-14] MEDS: MAGNESIUM SULFATE / D5W 1 GM/100 ML BAG IV SCH ×2 (07:52→08:47)
[2019-10-14] MEDS: PRASugrel TAB 10 MG TAB PO SCH (07:55)
[2019-10-14] MEDS: ATORVASTATIN 40 MG TAB PO SCH (07:55)
[2019-10-14] MEDS: ASPIRIN 81 MG ECTAB PO SCH (07:55)
[2019-10-14] MEDS: methIMAzole 5 MG TABLET PO SCH ×2 (07:56→21:01)
[2019-10-14] MEDS: FUROSEMIDE 40 MG TAB PO SCH ×2 (07:59→20:58)
[2019-10-14] MEDS: POTASSIUM CHLORIDE / WTR 10 MEQ/100 ML PLCT IV SCH (08:48)
[2019-10-14] MEDS: MoRPHine SULFATE 2 MG/ML CARP IV PRN ×2 (11:31→23:58)
--- NOTE | 2019-10-14 14:40 | Hospitalist Progress Note ---
Date of Service October 14, 2019 Assessment & Plan (1) Atypical chest pain: Atypical chest pain Acute on chronic systolic CHF H/O Ischemic Cardiomyopathy CTA:No evidence of acute pulmonary embolism. Suspected congestive heart failure/fluid overload. Pulmonary emphysema. Lower lobe bronchial wall thickening. Likely due to volume overload, tachycardia Secondary to Non compliance with Medications Chronic elevation of Troponin--Trending down EKG: Non specific ST-T wave changes Non complaint with medications Refuses most medications including diuretics despite counseling Continue fluid restriction Monitor volume statins, electrolytes Chronic Abdominal pain --CT ABD:Interval increase in marked biliary ductal dilatation as well as increased pancreatic ductal dilatation. No evidence of an obstructing mass or calculus allowing for limitations of this single phase CT examination. Given this was present to a significant degree on the prior exam, this could represents a benign stricture at the sphincter of Oddi among other possibilities. Correlate with LFTs. Gallbladder wall thickening/pericholecystic fluid. This is nonspecific in the setting of volume overload. Volume overload with congestive change and pulmonary edema at the lung bases, pericardial and pleural effusions, anasarca, and mesenteric edema. Fluid in the mid small bowel could indicate a mild enteritis among other etiologies. Feces in the distal small bowel without evidence of bowel obstruction, possibly due to delayed transit, bacterial overgrowth, or an incompetent ileocecal valve. Chronic IVC occlusion. Possible asymmetric bladder wall thickening along the right anterolateral aspect. This could relate to chronic bladder obstruction in the setting of prostatomegaly, however, an underlying neoplastic etiology is not excluded. Correlate with urinalysis and consider urologic consultation on a non urgent outpatient basis. -- Normal LFTs --Pain control --Tolerating diet --Monitor H/O CAD S/P stents Continue home medications if patient agrees to take Refused aspirin Hypertension stable Continue current meds H/O P.Afib Tachycardic on presentation due to being non complaint Continue metoprolol, Effient Poor candidate for home anticoagulation due to paranoid schizophrenia, Non com pliance H/O Testicular CA S/P surgery and chemotherapy Chronic anemia Hb at baseline Hyperthyroidism Continue methimazole Chronic lymphedema Malnutrition RE low BMI Refuses diuretics Nutrition consult DVT Px: Refused Heparin SQ Code Status Full code Subjective Patient is seen and examined at bedside Chest pounding, pain slightly better when compared to yesterday Still has some shortness of breath on exertion especially Denies any nausea, vomiting, abdominal pain today Refuses to take medications despite counseling Review of Systems Review of Systems: All systems reviewed & are unremarkable except as noted in HPI & below Physical Exam Physical Exam: Physical Exam: Vitals signs as noted above General Appearance:Thin, Frail, no apparent distress Head: normocephalic, Atraumatic Eyes: normal inspection, EOMI Neck: supple, Trachea midline Respiratory/Chest: Normal breath sounds, + Basal Crackles Cardiovascular: S1, S2, No murmur Abdomen/GI:Soft, Non tender, Bowel sounds present Extremities/Musculoskelatal:normal inspection, B/L LE edema, RLE in dressing Neurologic/Psych:AAOX3, grossly no focal neurological deficits Skin: normal color, warm Results & Data Vital Signs (Past 12 Hours) Vital Signs Temp Pulse Pulse Resp BP BP Pulse Ox 10/14/19 11:24 36.6 C 89 22 142/83 H 96 10/14/19 09:17 80 10/14/19 07:49 36.6 C 86 22 126/90 99 10/14/19 05:40 36.3 C L 89 26 H 140/90 100 10/14/19 05:38 92 H 10/14/19 05:00 89 22 137/88 97 10/14/19 04:30 85 24 126/89 95 10/14/19 04:00 86 17 124/88 97 10/14/19 03:51 100 H 127/95 10/14/19 03:30 99 H 19 127/95 100 10/14/19 03:00 101 H 17 151/105 H 95 Laboratory Results Short CBC 10/14/19 Range/Units 02:20 WBC 6.86 (4.8-10.8) K/uL Hgb 9.8 L (14.0-18.0) g/dL Hct 30.7 L (42-52) % Plt Count 167 (130-400) K/uL BMP 10/14/19 02:20 Sodium 142 Potassium 3.2 L Chloride 114 H Carbon Dioxide 22 BUN 16 Creatinine 0.88 Glucose 105 H Calcium 8.4 L Cardiac Enzymes 10/14/19 10/14/19 10/14/19 Range/Units 02:20 04:44 10:47 Troponin I 0.056 H* 0.088 H* 0.079 H* (0-0.045) ng/ml Liver Function 10/14/19 Range/Units 02:20 Total Bilirubin 0.5 (0.2-1) mg/dl AST 23 (15-37) U/L ALT 20 (12-78) U/L Alkaline Phosphatase 126 H (45-117) U/L Albumin 2.5 L (3.4-5.0) gm/dl
[2019-10-15] MEDS: HEPARIN SOD 5,000 UNIT/0.5 ML VIAL SQ SCH ×3 (05:19→21:19)
[2019-10-15] MEDS: TRAMADOL HCL 50 MG TABLET PO PRN ×3 (05:52→18:54)
[2019-10-15] MEDS ORDERED: SODIUM CHLORIDE 0.65% NA SOLN 45 ML (OCEAN) ONE (06:02)
[2019-10-15 07:05] LABS: Basophils # (auto) 0.01 K/uL (0-0.2); Basophils % (auto) 0.1 %; Eosinophils # (auto) 0.07 K/uL (0-0.5); Eosinophils % (auto) 0.9 %; Hematocrit (blood only) 29.8 % (42-52); Hemoglobin 9.4 g/dL (14.0-18.0); Immature Granulocytes # (auto) 0.01 K/uL (0.00-0.02); Immature Granulocytes % (auto) 0.1 %; Lymphocytes # (auto) 0.53 K/uL (1.2-3.4); Lymphocytes % (auto) 6.5 %; Mean Corpuscular Hemoglobin 26.9 pg (25-34); Mean Corpuscular Hgb Conc 31.5 g/dL (32-36); Mean Corpuscular Volume 85.4 fL (80-100); Mean Platelet Volume 9.4 fL (7.4-10.4); Monocytes # (auto) 0.59 K/uL (0.11-0.59); Monocytes % (auto) 7.2 %; Neutrophils # (auto) 6.99 K/uL (1.4-6.5); Neutrophils % (auto) 85.2 %; Platelet Count 176 K/uL (130-400); RDW Coefficient of Variation 15.6 % (11.5-14.5); RDW Standard Deviation 48.5 fL (36.4-46.3); Red Blood Count 3.49 M/uL (4.7-6.1)
[2019-10-15 07:37] LABS: Calcium 8.5 mg/dl (8.5-10.1); Est GFR (Non-African American) 90.6; Magnesium 1.8 mg/dl (1.8-2.4); Potassium 3.6 mmol/L (3.5-5.1)
[2019-10-15] MEDS: ASPIRIN 81 MG ECTAB PO SCH (08:06)
[2019-10-15] MEDS: methIMAzole 5 MG TABLET PO SCH ×2 (08:08→20:09)
[2019-10-15] MEDS: ATORVASTATIN 40 MG TAB PO SCH (08:09)
[2019-10-15] MEDS: FUROSEMIDE 40 MG TAB PO SCH (08:09)
[2019-10-15] MEDS: METOPROLOL TARTRATE 25 MG TAB PO SCH ×2 (08:10→20:09)
[2019-10-15] MEDS: PRASugrel TAB 10 MG TAB PO SCH (08:10)
[2019-10-15] MEDS: FUROSEMIDE 20 MG TAB PO SCH ×2 (12:43→20:10)
--- NOTE | 2019-10-15 18:11 | Hospitalist Progress Note ---
Date of Service October 15, 2019 Assessment & Plan (1) Atypical chest pain: Atypical chest pain Acute on chronic systolic CHF H/O Ischemic Cardiomyopathy CTA:No evidence of acute pulmonary embolism. Suspected congestive heart failure/fluid overload. Pulmonary emphysema. Lower lobe bronchial wall thickening. Likely due to volume overload, tachycardia Secondary to Non compliance with Medications Chronic elevation of Troponin--Trending down EKG: Non specific ST-T wave changes Non complaint with medications Refuses most medications including diuretics despite counseling Continue fluid restriction to 1.5 liters per day Monitor volume statins, electrolytes Refuses to take diuretics Chronic Abdominal pain --CT ABD:Interval increase in marked biliary ductal dilatation as well as increased pancreatic ductal dilatation. No evidence of an obstructing mass or calculus allowing for limitations of this single phase CT examination. Given this was present to a significant degree on the prior exam, this could represents a benign stricture at the sphincter of Oddi among other po ssibilities. Correlate with LFTs. Gallbladder wall thickening/pericholecystic fluid. This is nonspecific in the setting of volume overload. Volume overload with congestive change and pulmonary edema at the lung bases, pericardial and pleural effusions, anasarca, and mesenteric edema. Fluid in the mid small bowel could indicate a mild enteritis among other etiologies. Feces in the distal small bowel without evidence of bowel obstruction, possibly due to delayed transit, bacterial overgrowth, or an incompetent ileocecal valve. Chronic IVC occlusion. Possible asymmetric bladder wall thickening along the right anterolateral aspect. This could relate to chronic bladder obstruction in the setting of prostatomegaly, however, an underlying neoplastic etiology is not excluded. Correlate with urinalysis and consider urologic consultation on a nonurgent outpatient basis. -- Normal LFTs --Pain control --Tolerating diet --Monitor H/O CAD S/P stents Continue home medications if patient agrees to take Refused aspirin Hypertension stable Continue current meds H/O P.Afib Tachycardic on presentation due to being non complaint Continue metoprolol, Effient Poor candidate for home anticoagulation due to paranoid schizophrenia, Non compliance H/O Testicular CA S/P surgery and chemotherapy Chronic anemia Hb at baseline Hyperthyroidism Continue methimazole Chronic lymphedema Malnutrition RE low BMI Refuses diuretics Nutrition consult DVT Px: Refused Heparin SQ Code Status Full code Subjective Patient is seen and examined at bedside Continues to refuse diuretics No chest pain today Nausea, vomiting, abdominal pain today Anxious at times Requests IV pain meds Review of Systems Review of Systems: All systems reviewed & are unremarkable except as noted in HPI & below Physical Exam Physical Exam: Physical Exam: Vitals signs as noted above General Appearance:Thin, Frail, no apparent distress Head: normocephalic, Atraumatic Eyes: normal inspection, EOMI Neck: supple, Trachea midline Respiratory/Chest: Normal breath sounds, + Basal Crackles Cardiovascular: S1, S2, No murmur Abdomen/GI:Soft, Non tender, Bowel sounds present Extremities/Musculoskelatal:normal inspection, B/L LE edema, RLE in dressing Neurologic/Psych:AAOX3, grossly no focal neurological deficits Skin: normal color, warm Results & Data Vital Signs (Past 12 Hours) Vital Signs Temp Pulse Pulse Resp BP Pulse Ox 10/15/19 15:57 37.0 C 87 14 150/104 H 93 10/15/19 15:20 93 H 10/15/19 11:56 89 20 144/98 H 99 10/15/19 08:00 37.1 C 89 16 134/91 97 10/15/19 07:48 37.0 C 102 H 22 160/98 H 96 Laboratory Results Short CBC 10/15/19 Range/Units 06:30 WBC 8.20 (4.8-10.8) K/uL Hgb 9.4 L (14.0-18.0) g/dL Hct 29.8 L (42-52) % Plt Count 176 (130-400) K/uL BMP 10/15/19 06:30 Sodium 142 Potassium 3.6 Chloride 115 H Carbon Dioxide 21 BUN 17 Creatinine 0.84 Glucose 98 Calcium 8.5
[2019-10-16] MEDS: TRAMADOL HCL 50 MG TABLET PO PRN ×3 (02:59→15:58)
[2019-10-16] MEDS: HEPARIN SOD 5,000 UNIT/0.5 ML VIAL SQ SCH ×3 (05:54→20:04)
--- NOTE | 2019-10-16 07:19 | XRay Report ---
XR chest 1V portable CLINICAL HISTORY: CHF COMPARISON STUDY: 10/14/2019 FINDINGS: The heart remains enlarged. There is continued radiographic evidence for congestive failure /fluid overload with associated pulmonary edema. Developing left mid lower lung zone airspace opaciti es, likely represent focal edema. There is slight increase in the right pleural effusion.[A trace lef t pleural effusion is also suspected IMPRESSION: 1. Slight worsening pulmonary edema pattern. Developing left mid lower lung zone airspace opacities l ikely representing focal edema. There is slight increase in size of the right pleural effusion. Electronically signed by: Villa Almeida M.D. 10/16/2019 7:18 AM
[2019-10-16 08:36] LABS: BUN Creatinine Ratio 23.9 (10-20); Calcium 8.8 mg/dl (8.5-10.1); Creatinine Clr Calc Pharmacy 70.7 ml/min; Est GFR (African American) 106.1; Est GFR (Non-African American) 91.5
[2019-10-16] MEDS: methIMAzole 5 MG TABLET PO SCH ×2 (08:47→20:03)
[2019-10-16] MEDS: METOPROLOL TARTRATE 25 MG TAB PO SCH ×2 (08:47→20:01)
[2019-10-16] MEDS: ATORVASTATIN 40 MG TAB PO SCH (08:51)
[2019-10-16] MEDS: FUROSEMIDE 20 MG TAB PO SCH ×3 (08:51→20:12)
[2019-10-16] MEDS: ASPIRIN 81 MG ECTAB PO SCH (08:52)
[2019-10-16] MEDS: PRASugrel TAB 10 MG TAB PO SCH (09:33)
--- NOTE | 2019-10-16 16:56 | Hospitalist Progress Note ---
Date of Service October 16, 2019 Assessment & Plan (1) Atypical chest pain: Atypical chest pain Acute on chronic systolic CHF history of Ischemic Cardiomyopathy -CTA:No evidence of acute pulmonary embolism. Suspected congestive heart failure/fluid overload. Pulmonary emphysema. Lower lobe bronchial wall thickening. -Likely due to volume overload, tachycardia Secondary to Non compliance with Medications -Chronic elevation of Troponin which peaked at on this admission on 10/14/19 as 0.088 -patient confirms being nonadherent to medications, continue cardiac medications while inpatient -encourage patient to take diuretics -will discuss with case management Coronary Artery Disease -S/P stents in the past -Continue home medications if patient agrees to take Paroxysmal Atrial fibrillation -Tachycardic on presentation due to being non complaint -Continue metoprolol, Effient -Poor candidate for home anticoagulation due to paranoid schizophrenia, Non compliance -non specific reported symptoms on 10/16/19 -cardiac rate and rhythm appears to be uneventful on telemetry monitoring; transfer from telemetry garcia to medical garcia on 10/16/19 for further monitoring Hypertension -continue diuretic and metoprolol tartrate Chronic anemia -no concern for any gross bleeding Hyperthyroidism -Continue methimazole Chronic Abdominal pain -CT ABD:Interval increase in marked biliary ductal dilatation as well as increased pancreatic ductal dilatation. No evidence of an obstructing mass or calculus allowing for limitations of this single phase CT examination. Given this was present to a significant degree on the prior exam, this could represents a benign stricture at the sphincter of Oddi among other possibilities. Correlate with LFTs. Gallbladder wall thickening/pericholecystic fluid. This is nonspecific in the setting of volume overload. Volume overload with congestive change and pulmonary edema at the lung bases, pericardial and pleural effusions, anasarca, and mesenteric edema. Fluid in the mid small bowel could indicate a mild enteritis among other etiologies. Feces in the distal small bowel without evidence of bowel obstruction, possibly due to delayed transit, bacterial overgrowth, or an incompetent ileocecal valve. Chronic IVC occlusion. Possible asymmetric bladder wall thickening along the right anterolateral aspect. This could relate to chronic bladder obstruction in the setting of prostatomegaly, however, an underlying neoplastic etiology is not excluded. Correlate with urinalysis and consider urologic consultation on a nonurgent outpatient basis. -no acute process at this time -patient is able to eat Chronic lymphedema Malnutrition -diet while in hospital -diuretic as BID if patient takes history of Testicular Cancer -S/P surgery and chemotherapy in the past DVT Px: heparin for DVT prophylaxis if patient takes Code Status Full code Subjective No acute telemetry events. Patient denies chest pain or palpitations today. Patient reports some concern of feeling close to have a "seizure" but no actual seizure. Patient appears to have good appetite. No vomiting. denies abdominal pain Review of Systems Review of Systems: All systems reviewed & are unremarkable except as noted in HPI & below Physical Exam Constitutional: well groomed Eyes: PERRL, conjunctivae normal, anicteric sclerae EOM intact bilaterally ENMT: external ear and nose normal, oropharynx normal Respiratory: normal respiratory effort and + respiratory distress Cardiovascular: RRR, no murmur, no edema Gastrointestinal (Abdomen): normal bowel sounds, soft, nontender, no hepatosplenomegaly Musculoskeletal: Head/Neck/Chest: normocephalic and head atraumatic right lower extremity in dressing Neurologic: PERRL, EOMI, accommodation nl, no face palsy, no dysarthria Psychiatric: Orientation: alert, oriented x 3 and cooperative Results & Data Vital Signs (Past 12 Hours) Vital Signs Temp Pulse Pulse Resp BP Pulse Ox 10/16/19 15:19 36.7 C 87 18 130/87 97 10/16/19 11:01 36.7 C 68 18 142/96 H 100 10/16/19 07:42 87 10/16/19 07:12 36.8 C 94 H 18 169/101 H 95
[2019-10-16] MEDS ORDERED: ACETAMINOPHEN 325 MG TAB PO PRN (18:33)
[2019-10-16] MEDS ORDERED: TRAMADOL HCL 50 MG TABLET PO STA (20:14)
[2019-10-17] MEDS: HEPARIN SOD 5,000 UNIT/0.5 ML VIAL SQ SCH ×3 (06:02→20:19)
[2019-10-17] MEDS: FUROSEMIDE 20 MG TAB PO SCH ×3 (08:59→20:19)
[2019-10-17] MEDS: methIMAzole 5 MG TABLET PO SCH ×2 (09:00→20:16)
[2019-10-17] MEDS: ATORVASTATIN 40 MG TAB PO SCH (09:01)
[2019-10-17] MEDS: METOPROLOL TARTRATE 25 MG TAB PO SCH ×2 (09:02→20:16)
[2019-10-17] MEDS: PRASugrel TAB 10 MG TAB PO SCH (09:02)
[2019-10-17] MEDS: ASPIRIN 81 MG ECTAB PO SCH (09:04)
--- NOTE | 2019-10-17 10:37 | Hospitalist Progress Note ---
Date of Service October 17, 2019 Assessment & Plan (1) Atypical chest pain: Atypical chest pain Acute on chronic systolic CHF history of Ischemic Cardiomyopathy -CTA:No evidence of acute pulmonary embolism. Suspected congestive heart failure/fluid overload. Pulmonary emphysema. Lower lobe bronchial wall thickening. -Likely due to volume overload, tachycardia Secondary to Non compliance with Medications -Chronic elevation of Troponin which peaked at on this admission on 10/14/19 as 0.088 -patient confirms being nonadherent to medications, continue cardiac medications while inpatient -encourage patient to take diuretics -nurse reports that patient is taking diuretics on 10/17/19 -discussed with patient that tramadol is not indicated at this time. Coronary Artery Disease -S/P stents in the past -Continue home medications if patient agrees to take Paroxysmal Atrial fibrillation -Tachycardic on presentation due to being non complaint -Continue metoprolol, Effient -Poor candidate for home anticoagulation due to paranoid schizophrenia, Non compliance -non specific reported symptoms on 10/16/19 -cardiac rate and rhythm appears to be uneventful on telemetry monitoring; transfer from telemetry garcia to medical garcia on 10/16/19 for further monitoring -heart rate stable as of 10/17/19 Hypertension -continue diuretic and metoprolol tartrate Chronic anemia -no concern for any gross bleeding Hyperthyroidism -Continue methimazole Chronic Abdominal pain -CT ABD:Interval increase in marked biliary ductal dilatation as well as increased pancreatic ductal dilatation. No evidence of an obstructing mass or calculus allowing for limitations of this single phase CT examination. Given this was present to a significant degree on the prior exam, this could represents a benign stricture at the sphincter of Oddi among other possibilities. Correlate with LFTs. Gallbladder wall thickening/pericholecystic fluid. This is nonspecific in the setting of volume overload. Volume overload with congestive change and pulmonary edema at the lung bases, pericardial and pleural effusions, anasarca, and mesenteric edema. Fluid in the mid small bowel could indicate a mild enteritis among other etiologies. Feces in the distal small bowel without evidence of bowel obstruction, possibly due to delayed transit, bacterial overgrowth, or an incompetent ileocecal valve. Chronic IVC occlusion. Possible asymmetric bladder wall thickening along the right anterolateral aspect. This could relate to chronic bladder obstruction in the setting of prostatomegaly, however, an underlying neoplastic etiology is not excluded. Correlate with urinalysis and consider urologic consultation on a nonu rgent outpatient basis. -no acute process at this time -patient is able to eat Chronic lymphedema Malnutrition -chronic right lower extremity edema -heart healthy/low sodium diet while in hospital -diuretic history of Testicular Cancer -S/P surgery and chemotherapy in the past DVT Px: heparin for DVT prophylaxis if patient takes Code Status Full code Disposition: Discussed with patient about plans for hospital discharge as cardiac workup has been completed and encouraged patient of medical adherence. Patient replies that his housing situation is unsafe on a holiday as the administrators who oversee the housing are not available on a holiday and therefore he cannot return there today. Discussed with patient about hospital discharge on Monday which is after Subjective Patient breathing on room air. No chest pain complaint today. Patient able to eat. No vomiting. No diarrhea. Patient able to make urine. Discussed with cristina ent about plans for hospital discharge as cardiac workup has been completed and encouraged patient of medical adherence. Patient replies that his housing situation is unsafe on a holiday as the administrators who oversee the housing are not available on a holiday and therefore he cannot return there today. Discussed with patient about hospital discharge on Monday which is after . Review of Systems Review of Systems: All systems reviewed & are unremarkable except as noted in HPI & below Physical Exam Constitutional: comfortable Eyes: PERRL, conjunctivae normal, anicteric sclerae EOM intact bilaterally ENMT: external ear and nose normal, oropharynx normal Respiratory: normal respiratory effort and + respiratory distress Cardiovascular: RRR, no murmur, no edema Gastrointestinal (Abdomen): normal bowel sounds, soft, nontender, no hepatosplenomegaly Musculoskeletal: Head/Neck/Chest: normocephalic and head atraumatic chronic right lower extremity edema, dried skin Neurologic: PERRL, EOMI, accommodation nl, no face palsy, no dysarthria Psychiatric: Orientation: alert, oriented x 3 and cooperative Results & Data Vital Signs (Past 12 Hours) Vital Signs Temp Pulse Resp BP Pulse Ox 10/17/19 07:40 36.4 C L 77 18 120/74 95 10/16/19 23:07 36.4 C L 83 24 129/89 98
[2019-10-17] MEDS ORDERED: IBUPROFEN 200 MG TAB PO PRN (14:17)
[2019-10-18] MEDS: PRASugrel TAB 10 MG TAB PO SCH (08:37)
[2019-10-18] MEDS: ATORVASTATIN 40 MG TAB PO SCH (08:37)
[2019-10-18] MEDS: ASPIRIN 81 MG ECTAB PO SCH (08:37)
[2019-10-18] MEDS: METOPROLOL TARTRATE 25 MG TAB PO SCH ×2 (08:38→20:01)
[2019-10-18] MEDS: FUROSEMIDE 20 MG TAB PO SCH (08:38)
[2019-10-18] MEDS: methIMAzole 5 MG TABLET PO SCH ×2 (08:38→20:03)
--- NOTE | 2019-10-18 13:57 | XRay Report ---
SINGLE VIEW CHEST CLINICAL HISTORY: Dyspnea. FINDINGS: An AP, portable, upright chest radiograph is compared to study dated 10/16/2019 and correla cheri with chest CT dated 10/14/2019. The heart is enlarged noting atherosclerotic calcification of the thoracic aorta. There is pulmonary vascular congestion. Emphysematous change is noted. There are sma ll layering pleural effusions with bibasilar consolidation. Diffuse bilateral airspace consolidation is similar to previous. No pneumothorax is seen. The skeletal structures are osteopenic. The bony tho rax is grossly intact. IMPRESSION: 1. Cardiomegaly with evidence of congestive failure. 2. Multifocal bilateral airspace opacities have modestly increased from 10/14/2019. This likely repre sents interstitial edema. Correlate clinically for evidence of a superimposed infectious/inflammatory pneumonitis. 3. Layering pleural effusions. 4. Emphysema. Electronically signed by: Mulugeta Mccabe M.D. 10/18/2019 1:56 PM
--- NOTE | 2019-10-18 15:07 | Hospitalist Progress Note ---
Date of Service October 18, 2019 Assessment & Plan (1) Atypical chest pain: Atypical chest pain Acute on chronic systolic CHF history of Ischemic Cardiomyopathy, Coronary Artery Disease -S/P stents in the past - admission CTA: No evidence of acute pulmonary embolism. Suspected congestive h eart failure/fluid overload. Pulmonary emphysema. Lower lobe bronchial wall thickening. -chest pain likely due to volume overload and initial tachycardia Secondary to Non compliance with Medications -Chronic elevation of Troponin which peaked at on this admission on 10/14/19 as 0.088 -patient confirms being nonadherent to medications, continue cardiac medications while inpatient -encourage patient to take diuretics -10/18/19: Patient seen and examined at bedside. Breathing on room air. Having intermittent adherence to oral diuretic. Patient reports his appetite is decreased. he feels afraid of the food. he denies acute pain of the neck or pain with swallowing. he does not report of choking. he repeatedly asks for narcotic pain medication because he thinks it will prevent him from feeling light headed or general malaise of the face. he denies headache. blood pressure is stable. patient has not been noted by nursing staff to have episodes of passing up. When asked if he has been ambulating, he reports he did not ambulate very far in the [place] way before he feels that he cannot do it anymore. Discussed with patient about about some increased congestion on chest X ray. he is agreeable to IV diuretic. He declines respiratory antibiotics because he thinks the antibiotics will make him "disappear" by weight loss. Hospitalists expressed concern about his miscellaneous and vague complaints and asked him if he is agreeable to be evaluated by inpatient psychiatry. Patient denies that his feelings are from anxiety but allows psychiatry consultation Paroxysmal Atrial fibrillation -Tachycardic on presentation due to being non complaint -Continue metoprolol, Effient -Poor candidate for home anticoagulation due to paranoid schizophrenia, Non compliance -non specific reported symptoms on 10/16/19 -cardiac rate and rhythm appears to be uneventful on telemetry monitoring; transfer from telemetry garcia to medical garcia on 10/16/19 for further monitoring -will decrease metoprolol 25 mg BID to 12.5 mg to alleviate any possible malaise from beta polo History of paranoid schizophrenia -will ask for psychiatry consultation Hypertension -Lasix diuretic and metoprolol tartrate Chronic anemia -no concern for any gross bleeding Hyperthyroidism -Continue methimazole Chronic Abdominal pain -CT ABD:Interval increase in marked biliary ductal dilatation as well as increased pancreatic ductal dilatation. No evidence of an obstructing mass or calculus allowing for limitations of this single phase CT examination. Given this was present to a significant degree on the prior exam, this could represents a benign stricture at the sphincter of Oddi among other possibilities. Correlate with LFTs. Gallbladder wall thickening/pericholecystic fluid. This is nonspecific in the setting of volume overload. Volume overload with congestive change and pulmonary edema at the lung bases, pericardial and pleural effusions, anasarca, and mesenteric edema. Fluid in the mid small bowel could indicate a mild enteritis among other etiologies. Feces in the distal small bowel without evidence of bowel obstruction, possibly due to delayed transit, bacterial overgrowth, or an incompetent ileocecal valve. Chronic IVC occlusion. Possible asymmetric bladder wall thickening along the right anterolateral aspect. This could relate to chronic bladder obstruction in the setting of prostatomegaly, however, an underlying neoplastic etiology is not excluded. Correlate with urinalysis and consider urologic consultation on a nonurgent outpatient basis. - -transition to liquid diet Chronic lymphedema Malnutrition -chronic right lower extremity edema -food diet and diuretic and BOOST nutrition supplements history of Testicular Cancer -S/P surgery and chemotherapy in the past DVT Px: heparin for DVT prophylaxis if patient takes Code Status Full code Subjective Patient seen and examined at bedside. Breathing on room air. Having intermittent adherence to oral diuretic. Patient reports his appetite is decreased. he feels afraid of the food. he denies acute pain of the neck or pain with swallowing. he does not report of choking. he repeatedly asks for narcotic pain medication because he thinks it will prevent him from feeling light headed or general malaise of the face. he denies headache. blood pressure is stable. patient has not been noted by nursing staff to have episodes of passing up. When asked if he has been ambulating, he reports he did not ambulate very far in the [place] way before he feels that he cannot do it anymore. Discussed with patient about about some increased congestion on chest X ray. he is agreeable to IV diuretic. He declines respiratory antibiotics because he thinks the antibiotics will make him "disappear" by weight loss. Hospitalists expressed concern about his miscellaneous and vague complaints and asked him if he is agreeable to be evaluated by inpatient psychiatry. Patient denies that his feelings are from anxiety but allows psychiatry consultation Review of Systems Review of Systems: All systems reviewed & are unremarkable except as noted in HPI & below Physical Exam Constitutional: comfortable Eyes: PERRL, conjunctivae normal, anicteric sclerae EOM intact bilaterally ENMT: external ear and nose normal, oropharynx normal Respiratory: normal respiratory effort and + respiratory distress Cardiovascular: RRR, no murmur, no edema Gastrointestinal (Abdomen): normal bowel sounds, soft, nontender, no hepatosp lenomegaly Musculoskeletal: Head/Neck/Chest: normocephalic and head atraumatic Neurologic: PERRL, EOMI, accommodation nl, no face palsy, no dysarthria Psychiatric: Orientation: alert, oriented x 3 and cooperative Results & Data Vital Signs (Past 12 Hours) Vital Signs Temp Pulse Resp BP Pulse Ox 10/18/19 10:25 36.9 C 105 H 18 140/93 98 10/18/19 07:39 36.7 C 66 18 133/87 99
[2019-10-18] MEDS: KETOROLAC TROMETHAMINE 15 MG/ML VIAL IV PRN ×2 (15:43→21:46)
[2019-10-18] MEDS: FUROSEMIDE 20 MG in SYRINGE 0 ML IV SCH (17:14)
[2019-10-18] MEDS: HEPARIN SOD 5,000 UNIT/0.5 ML VIAL SQ SCH ×2 (18:45→20:03)
[2019-10-19] MEDS: KETOROLAC TROMETHAMINE 15 MG/ML VIAL IV PRN ×4 (04:30→22:30)
[2019-10-19] MEDS: HEPARIN SOD 5,000 UNIT/0.5 ML VIAL SQ SCH ×3 (05:25→21:13)
[2019-10-19 05:58] LABS: Basophils # (auto) 0.01 K/uL (0-0.2); Basophils % (auto) 0.2 %; Eosinophils # (auto) 0.18 K/uL (0-0.5); Eosinophils % (auto) 3.8 %; Hemoglobin 9.6 g/dL (14.0-18.0); Immature Granulocytes # (auto) 0.01 K/uL (0.00-0.02); Immature Granulocytes % (auto) 0.2 %; Lymphocytes # (auto) 0.69 K/uL (1.2-3.4); Lymphocytes % (auto) 14.6 %; Mean Corpuscular Hemoglobin 26.8 pg (25-34); Mean Corpuscular Volume 83.8 fL (80-100); Mean Platelet Volume 10.3 fL (7.4-10.4); Monocytes # (auto) 0.33 K/uL (0.11-0.59); Neutrophils # (auto) 3.52 K/uL (1.4-6.5); Neutrophils % (auto) 74.2 %; Platelet Count 192 K/uL (130-400); RDW Coefficient of Variation 15.5 % (11.5-14.5); RDW Standard Deviation 47.8 fL (36.4-46.3); Red Blood Count 3.58 M/uL (4.7-6.1); White Blood Count 4.74 K/uL (4.8-10.8)
[2019-10-19 06:28] LABS: BUN Creatinine Ratio 28.5 (10-20); Calcium 8.2 mg/dl (8.5-10.1); Creatinine Clr Calc Pharmacy 65.2 ml/min; Est GFR (African American) 102.1; Est GFR (Non-African American) 88.1; Magnesium 1.9 mg/dl (1.8-2.4); Potassium 3.4 mmol/L (3.5-5.1)
[2019-10-19] MEDS ORDERED: POTASSIUM CHLORIDE 20 MEQ TABCR PO STA (07:06)
[2019-10-19] MEDS: MAGNESIUM OXIDE 400 MG TAB PO SCH (08:43)
[2019-10-19] MEDS: methIMAzole 5 MG TABLET PO SCH ×2 (08:45→20:34)
[2019-10-19] MEDS: METOPROLOL TARTRATE 25 MG TAB PO SCH ×2 (08:45→20:33)
[2019-10-19] MEDS: ATORVASTATIN 40 MG TAB PO SCH (08:46)
[2019-10-19] MEDS: PRASugrel TAB 10 MG TAB PO SCH (08:46)
[2019-10-19] MEDS: ASPIRIN 81 MG ECTAB PO SCH (08:48)
[2019-10-19] MEDS: FUROSEMIDE 20 MG in SYRINGE 0 ML IV SCH ×2 (13:17→15:27)
--- NOTE | 2019-10-19 15:16 | Psychiatric Consultation ---
Date of Consultation October 19, 2019 Impression / Recommendations Impression 69-year-old gentleman with long history of schizophrenia who appears at or very near his normal baseline of thinking and functioning. He has chronic delusions however no acute safety concerns appreciated and his decisional capacity similarly appears near baseline. He is able to provide a fair account of recent medical circumstances and interventions and his rationale for times when he does not want to comply with recommendations. He is fairly concrete in discussing his desire for pain medication for his chest pain seemingly perceiving that type of intervention is less risky than "something for mental problems." He was educated regarding the potential benefit of an anxiolytic type medication, namely a calming antidepressant, for anxiety which may be contributing to his somatic preoccupations presently however he declines intervention stating a preference to try to cope without additional medication. At the present time he does not appear to be a compelling indication for involuntary treatment of any sort however we are happy to continue to follow. (1) Schizophrenia: (2) Anxiety: Risk Factors Assessment Male: Yes : Yes Do You Have Access To A Gun?: No Health Problems: Yes Mental Health Diagnoses: Yes Substance Use Disorders: No Hopelessness: No Protective Factors Assessment : No Responsible for Young Children: No Employed: No CPT Code 49688 Psych History Identifying Data 69-year-old gentleman with long history of schizophrenia and voluntary homelessness who is known to the behavioral health service. Admitted 10/14/2019 for atypical chest pain. Chief Complaint "I have to do everything just right". History of Present Illness Per admission H&P: History obtained from patient and records. Medical history significant for chronic systolic heart failure secondary to ischemic cardiomyopathy EF 45%, TTE 2018), severe MR, CAD status post stent, hypertension, hx PAF, paranoid schizophrenia, past hx DVT, hxf testicular CA sp surgery and chemotherapy, past tobacco abuse, chronic anemia (baseline hemoglobin of 10-11), chronic lymphedema, medication noncompliance. Recent confinement last month for decompensated CHF. Patient discharged to senior care. As per patient, he did not have medications at home on discharge Medications will be refilled until October 16, 2019. No follow-up with PCP. Riri director case management unable to contact patient on multiple attempts as per outpatient notes. 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 Patient woke up this morning with sudden right-sided chest discomfort and shortness of breath. Achy right-sided abdominal pain. No constipation/diarrhea/patient. Medical History as above Surgical History : Appendectomy, orchiectomy Family History : Heart disease Personal/Social history : Past tobacco abuse, no EtOH intake, disabled Review of Dr. Gaspar's note from today indicates intermittent adherence to oral diuretic. Diminished appetite. Requests for narcotic pain medication. Concern for "miscellaneous and vague complaints" and patient agreeable to psychiatric consultation. Per available nursing staff who know him from prior admissions he appears near baseline regarding his demeanor and behavior. On psychiatric interview patient complains of chest pain intermittently and acknowledges that this is very distressing to him and he worries that if he does not do "the right thing" that he will be harmed in some way. He describes illogical perceptions of being able to feel the presence of others and hear what they are saying from outside of the room. He describes illogical believes regarding the importance of being in the right place at the right time and attentional for bad outcomes if he is in the wrong place. He states that he feels safe here in the hospital. He reports that he does have an apartment to go to should he choose to accept it from [facility]. He denies desire for the end of his life denies thoughts of harm to himself or others. Despite his awareness of anxiety he declines offer of an antidepressant trial following education about the risks and be nefits. "I prefer to stay away from medications." Past Psychiatric History Previous Psych History: Patient reportedly has a long history of schizophrenia, which continues to be untreated. He denies previous medication trials or inpatient psychiatric hospitalizations. Outpatient Services: none Do You Have Access To A Gun?: No Past Medication Trials: none Allergies Allergy/AdvReac Type Severity Reaction Status Date / Time horse dander Allergy Unknown HORSE HAIR Verified 10/14/19 02:15 tetanus toxoid, adsorbed Allergy Unknown Unknown Verified 10/14/19 02:15 Home Medications Home Medications Medication Instructions Recorded Confirmed Type aspirin [Ecotrin Low Strength] 81 mg PO QAM #30 tab 07/16/19 10/14/19 Rx atorvastatin 80 mg PO QAM #30 tab 07/16/19 10/14/19 Rx nitroglycerin [Nitrostat] 0.4 mg SUBLINGUAL PRN PRN #30 tab 07/16/19 10/14/19 Rx prasugrel [Effient] 10 mg PO QAM #30 tab 07/16/19 10/14/19 Rx tramadol 50 mg PO Q8 PRN 09/11/19 10/14/19 History methimazole 5 mg PO BID 30 Days #60 tab 09/21/19 10/14/19 Rx potassium chloride [Klor-Con M10] 20 meq PO BID17 30 Days #60 tab 09/21/19 10/14/19 Rx furosemide [Lasix] 40 mg PO BID #60 tab 09/25/19 10/14/19 Rx metoprolol tartrate 25 mg PO BID 30 Days #60 tab 09/25/19 10/14/19 Rx Family History Pt denies family history of psychiatric conditions Substance Abuse History Pt denies substance abuse Personal History Living Arrangements: Apartment ([facility]ru [facility]) Employment Status: Unemployed Beliefs That Will Affect Care: None Patient History Medical History CAD (coronary artery disease) CHF exacerbation (Acute) Cholecystitis, acute History of DVT (deep vein thrombosis) History of pancreatitis History of testicular cancer History of tobacco abuse Homelessness HTN (hypertension) (Chronic) "declines to take medication" Hypertension Hyperthyroidism Lymphedema of right lower extremity Pleural effusion Schizophrenia STEMI (ST elevation myocardial infarction) Surgical History Hx of heart artery stent Status post cardiac catheterization Social History Preferred Language: Czech Communication Ability: Effective Burlap Roll Coverer Required: No Beliefs That Will Affect Care: None Current Living Situation: Alone Current Living Situation Comment: apartment Other Information That Helps Us Care for You: No Feels Safe at Home: Yes Safety Concerns: Feels Safe At This Time Smoking Status: Former smoker Do You Dip or Chew Tobacco: No ; Number of Years Since Quit: 10 ; Second Hand Exposure: No ; Tobacco Cessation Education Requested by Patient: No Hx Alcohol Use: Yes Alcohol type: hard liquor Hx Substance Use: No Physical Exam Psychiatric: Orientation: alert and cooperative Apperance: + disheveled Eye Contact: good eye contact Motor Behavior: no psychomotor agitation and n akathisia Speech: no pressured speech Affect: mood congruent with affect; no labile affect and no angry affect Mood: + anxious mood Thought Process: + perseveration Thought Content: + delusions Suicidal Thoughts: denies suicidal thoughts, denies suicidal plan and denies suicidal intent Homicidal Thoughts: denies homicidal thoughts, denies homicidal plan and denies homicidal intent Hallucinations: no auditory hallucinations (however reports he can hear others from a distance) and no visual hallucinations Insight: + limited insight Judgement: + limited judgement Vital Signs (Past 24 Hours): Last Vital Signs Temp 36.9 C 10/18/19 23:06 Pulse 72 10/19/19 00:10 Resp 20 10/18/19 23:06 BP 117/75 10/19/19 00:10 Pulse Ox 99 10/19/19 00:10 Review of Systems Constitutional: + fatigue Respiratory: + dyspnea Cardiovascular: as per Subjective / HPI Psychiatric: no behavioral changes, no hopelessness, no suicidal ideation, no homicidal ideation and no confusion Results & Data Medications Administered Acetaminophen (Tylenol) 325 mg PO Q6H PRN PRN Reason: Pain or Fever Stop: 11/15/19 18:32 Last Admin: 10/17/19 20:16 Dose: 325 mg Documented by: [id number] Aspirin (Ecotrin Ectab) 81 mg PO [facility] Stop: 11/13/19 08:59 Last Admin: 10/19/19 08:48 Dose: Not Given Documented by: [id number] Admin: 10/18/19 08:37 Dose: 81 mg Documented by: [id number] Admin: 10/17/19 09:04 Dose: Not Given Documented by: [id number] Admin: 10/16/19 08:52 Dose: Not Given Documented by: [id number] Admin: 10/15/19 08:06 Dose: Not Given Documented by: [id number] Admin: 10/14/19 07:55 Dose: Not Given Documented by: [id number] Atorvastatin Calcium (Lipitor) 80 mg PO [facility] Stop: 11/13/19 08:59 Last Admin: 10/19/19 08:46 Dose: 40 mg Documented by: [id number] Admin: 10/18/19 08:37 Dose: 40 mg Documented by: [id number] Admin: 10/17/19 09:01 Dose: 20 mg Documented by: [id number] Admin: 10/16/19 08:51 Dose: 20 mg Documented by: [id number] Admin: 10/15/19 08:09 Dose: 80 mg Documented by: [id number] Admin: 10/14/19 07:55 Dose: 80 mg Documented by: [id number] Heparin Sodium (Porcine) (Heparin Sodium (Porcine)) 5,000 units SQ Q8 MIR[facility] Stop: 11/13/19 05:59 Last Admin: 10/19/19 13:18 Dose: Not Given Documented by: [id number] Admin: 10/19/19 05:25 Dose: Not Given Documented by: [id number] Admin: 10/18/19 20:03 Dose: Not Given Documented by: [id number] Admin: 10/18/19 18:45 Dose: Not Given Documented by: [id number] Admin: 10/18/19 18:45 Dose: Not Given Documented by: [id number] Admin: 10/17/19 20:19 Dose: Not Given Documented by: [id number] Admin: 10/17/19 13:20 Dose: Not Given Documented by: [id number] Admin: 10/17/19 06:02 Dose: Not Given Documented by: [id number] Admin: 10/16/19 20:04 Dose: Not Given Documented by: [id number] Admin: 10/16/19 13:37 Dose: Not Given Documented by: [id number] Admin: 10/16/19 05:54 Dose: Not Given Documented by: [id number] Admin: 10/15/19 21:19 Dose: Not Given Documented by: [id number] Admin: 10/15/19 09:07 Dose: Not Given Documented by: [id number] Admin: 10/15/19 05:19 Dose: Not Given Documented by: [id number] Admin: 10/14/19 22:00 Dose: Not Given Documented by: [id number] Admin: 10/14/19 12:54 Dose: Not Given Documented by: [id number] Admin: 10/14/19 07:17 Dose: Not Given Documented by: [id number] Furosemide 20 mg/ Syringe 2 mls @ 4 mls/min IV BID17 [facility] Stop: 11/17/19 16:59 Last Admin: 10/19/19 13:17 Dose: 4 mls/min Documented by: [id number] Admin: 10/18/19 17:14 Dose: 4 mls/min Documented by: [id number] Ketorolac Tromethamine (Toradol) 15 mg IV Q6H PRN PRN Reason: Severe Pain Stop: 10/22/19 14:06 Last Admin: 10/19/19 10:50 Dose: 15 mg Documented by: [id number] Admin: 10/19/19 04:30 Dose: 15 mg Documented by: [id number] Admin: 10/18/19 21:46 Dose: 15 mg Documented by: [id number] Admin: 10/18/19 15:43 Dose: 15 mg Documented by: [id number] Magnesium Oxide (Mag-Ox) 400 mg PO QAM MIRZA Stop: 11/18/19 08:59 Last Admin: 10/19/19 08:43 Dose: Not Given Documented by: [id number] Methimazole (Tapazole) 5 mg PO BID [facility]IR[facility] Stop: 11/13/19 08:59 Last Admin: 10/19/19 08:45 Dose: Not Given Documented by: [id number] Admin: 10/18/19 20:03 Dose: 5 mg Documented by: [id number] Admin: 10/18/19 08:38 Dose: Not Given Documented by: [id number] Admin: 10/17/19 20:16 Dose: 5 mg Documented by: [id number] Admin: 10/17/19 09:00 Dose: 5 mg Documented by: [id number] Admin: 10/16/19 20:03 Dose: 5 mg Documented by: [id number] Admin: 10/16/19 08:47 Dose: 5 mg Documented by: [id number] Admin: 10/15/19 20:09 Dose: 5 mg Documented by: [id number] Admin: 10/15/19 08:08 Dose: Not Given Documented by: [id number] Admin: 10/14/19 21:01 Dose: 5 mg Documented by: [id number] Admin: 10/14/19 07:56 Dose: 5 mg Documented by: [id number] Metoprolol Tartrate (Lopressor) 12.5 mg PO BID MIRZA Stop: 11/17/19 20:59 Last Admin: 10/19/19 08:45 Dose: 12.5 mg Documented by: [id number] Admin: 10/18/19 20:01 Dose: 12.5 mg Documented by: [id number] Prasugrel (Effient) 10 mg PO QAM MIRZA Stop: 11/13/19 08:59 Last Admin: 10/19/19 08:46 Dose: 10 mg Documented by: [id number] Admin: 10/18/19 08:37 Dose: 10 mg Documented by: [id number] Admin: 10/17/19 09:02 Dose: 10 mg Documented by: [id number] Admin: 10/16/19 09:33 Dose: 10 mg Documented by: [id number] Admin: 10/15/19 08:10 Dose: 10 mg Documented by: [id number] Admin: 10/14/19 07:55 Dose: 10 mg Documented by: [id number] Coding Level of Care Code 83292 U Intl Hosp Care Lvl 1 Diagnoses Schizophrenia F20.9 Anxiety F41.9
--- NOTE | 2019-10-19 15:28 | Hospitalist Progress Note ---
Date of Service October 19, 2019 Assessment & Plan (1) Atypical chest pain: Atypical chest pain Acute on chronic systolic CHF history of Ischemic Cardiomyopathy, Coronary Artery Disease -S/P stents in the past - admission CTA: No evidence of acute pulmonary embolism. Suspected congestive h eart failure/fluid overload. Pulmonary emphysema. Lower lobe bronchial wall thickening. -chest pain likely due to volume overload and initial tachycardia Secondary to Non compliance with Medications -Chronic elevation of Troponin which peaked at on this admission on 10/14/19 as 0.088 -patient confirms being nonadherent to medications, continue cardiac medications while inpatient -encourage patient to take diuretics -10/18/19: Patient seen and examined at bedside. Breathing on room air. Having intermittent adherence to oral diuretic. Patient reports his appetite is decreased. he feels afraid of the food. he denies acute pain of the neck or pain with swallowing. he does not report of choking. he repeatedly asks for narcotic pain medication because he thinks it will prevent him from feeling light headed or general malaise of the face. he denies headache. blood pressure is stable. patient has not been noted by nursing staff to have episodes of passing up. When asked if he has been ambulating, he reports he did not ambulate very far in the [place] way before he feels that he cannot do it anymore. Discussed with patient about about some increased congestion on chest X ray. he is agreeable to IV diuretic. He declines respiratory antibiotics because he thinks the antibiotics will make him "disappear" by weight loss. Hospitalists expressed concern about his miscellaneous and vague complaints and asked him if he is agreeable to be evaluated by inpatient psychiatry. Patient denies that his feelings are from anxiety but allows psychiatry consultation -10/19/19: Patient is very different in attitude today. He reports he is feeling better, no longer scared of eating and would like to try to transition from liquid diet to solid diet. He was encouraged by medical doctor throughout the da y to try to some walking in the hallway which he has yet to attempt today. Patient does not appear to have acute pain concerns as he did yesterday. As per patient's nurse, behavioral health doctor saw the patient today. Paroxysmal Atrial fibrillation -Tachycardic on presentation due to being non complaint -Continue metoprolol, Effient -Poor candidate for home anticoagulation due to paranoid schizophrenia, Non compliance -non specific reported symptoms on 10/16/19 -cardiac rate and rhythm appears to be uneventful on telemetry monitoring; transfer from telemetry garcia to medical garcia on 10/16/19 for further monitoring -10/18/19 decrease metoprolol 25 mg BID to 12.5 mg to alleviate any possible malaise from beta polo -10/19/19: continue 12m5 mg BID metoprolol History of paranoid schizophrenia -behavioral health recommendations pending Hypertension -Lasix diuretic and metoprolol tartrate Chronic anemia -no concern for any gross bleeding Hyperthyroidism -Continue methimazole Chronic Abdominal pain -CT ABD:Interval increase in marked biliary ductal dilatation as well as increased pancreatic ductal dilatation. No evidence of an obstructing mass or calculus allowing for limitations of this single phase CT examination. Given this was present to a significant degree on the prior exam, this could represents a benign stricture at the sphincter of Oddi among other possibilities . Correlate with LFTs. Gallbladder wall thickening/pericholecystic fluid. This is nonspecific in the setting of volume overload. Volume overload with congestive change and pulmonary edema at the lung bases, pericardial and pleural effusions, anasarca, and mesenteric edema. Fluid in the mid small bowel could indicate a mild enteritis among other etiologies. Feces in the distal small bowel without evidence of bowel obstruction, possibly due to delayed transit, bacterial overgrowth, or an incompetent ileocecal valve. Chronic IVC occlusion. Possible asymmetric bladder wall thickening along the right anterolateral aspect. This could relate to chronic bladder obstruction in the setting of prostatomegaly, however, an underlying neoplastic etiology is not excluded. Correlate with urinalysis and consider urologic consultation on a nonurgent outpatient basis. Chronic lymphedema Malnutrition -chronic right lower extremity edema -food diet and diuretic and BOOST nutrition supplements history of Testicular Cancer -S/P surgery and chemotherapy in the past DVT Px: heparin for DVT prophylaxis if patient takes Code Status Full code Subjective Patient is very different in attitude today. He reports he is feeling better, no longer scared of eating and would like to try to transition from liquid diet to solid diet. He was encouraged by medical doctor throughout the day to try to some walking in the hallway which he has yet to attempt today. Patient does not appear to have acute pain concerns as he did yesterday. As per patient's nurse, behavioral health doctor saw the patient today. Review of Systems Review of Systems: All systems reviewed & are unremarkable except as noted in HPI & below Physical Exam Constitutional: comfortable Eyes: PERRL, conjunctivae normal, anicteric sclerae EOM intact bilaterally ENMT: external ear and nose normal, oropharynx normal Respiratory: normal respiratory effort Cardiovascular: RRR, no murmur, no edema Gastrointestinal (Abdomen): normal bowel sounds, soft, nontender, no hepatosplenomegaly Musculoskeletal: Head/Neck/Chest: normocephalic and head atraumatic Neurologic: PERRL, EOMI, accommodation nl, no face palsy, no dysarthria Psychiatric: Orientation: alert, oriented x 3 and cooperative Results & Data Vital Signs (Past 12 Hours) Vital Signs Temp Pulse Resp BP Pulse Ox 10/19/19 15:16 36.8 C 78 16 131/86 96
[2019-10-20] MEDS: KETOROLAC TROMETHAMINE 15 MG/ML VIAL IV PRN (05:11)
[2019-10-20] MEDS: HEPARIN SOD 5,000 UNIT/0.5 ML VIAL SQ SCH ×2 (05:13→20:48)
[2019-10-20] MEDS ORDERED: LORazepam 0.25 MG/0.5 ML VIAL IV STA (07:12)
[2019-10-20] MEDS: ATORVASTATIN 40 MG TAB PO SCH (08:37)
[2019-10-20] MEDS: METOPROLOL TARTRATE 25 MG TAB PO SCH ×2 (08:38→20:48)
[2019-10-20] MEDS: FUROSEMIDE 20 MG in SYRINGE 0 ML IV SCH ×2 (08:38→17:50)
[2019-10-20] MEDS: PRASugrel TAB 10 MG TAB PO SCH (08:39)
[2019-10-20] MEDS: ASPIRIN 81 MG ECTAB PO SCH (08:39)
[2019-10-20] MEDS: MAGNESIUM OXIDE 400 MG TAB PO SCH (08:39)
[2019-10-20] MEDS: methIMAzole 5 MG TABLET PO SCH ×2 (08:40→20:49)
[2019-10-20] MEDS: HYDROmorphone INJ 0.5 MG/0.5 ML SYR IV PRN ×2 (10:42→18:32)
--- NOTE | 2019-10-20 16:13 | Hospitalist Progress Note ---
Date of Service October 20, 2019 Assessment & Plan (1) Atypical chest pain: Atypical chest pain Acute on chronic systolic CHF history of Ischemic Cardiomyopathy, Coronary Artery Disease -S/P stents in the past - admission CTA: No evidence of acute pulmonary embolism. Suspected congestive heart failure/fluid overload. Pulmonary emphysema. Lower lobe bronchial wall thickening. -chest pain likely due to volume overload and initial tachycardia Secondary to Non compliance with Medications -Chronic elevation of Troponin which peaked at on this admission on 10/14/19 as 0.088 -patient confirms being nonadherent to medications, continue cardiac medications while inpatient -encourage patient to take diuretics -10/18/19: Patient seen and examined at bedside. Breathing on room air. Having intermittent adherence to oral diuretic. Patient reports his appetite is decreased. he feels afraid of the food. he denies acute pain of the neck or pain with swallowing. he does not report of choking. he repeatedly asks for narcotic pain medication because he thinks it will prevent him from feeling light headed or general malaise of the face. he denies headache. blood pressure is stable. patient has not been noted by nursing staff to have episodes of passing up. When asked if he has been ambulating, he reports he did not ambulate very far in the [place] way before he feels that he cannot do it anymore. Discussed with patient about about some increased congestion on chest X ray. he is agreeable to IV diuretic. He declines respiratory antibiotics because he thinks the antibiotics will make him "disappear" by weight loss. Hospitalists expressed concern about his miscellaneous and vague complaints and asked him if he is agreeable to be evaluated by inpatient psychiatry. Patient denies that his feelings are from anxiety but allows psychiatry consultation -10/19/19: Patient is very different in attitude today. He reports he is feeling better, no longer scared of eating and would like to try to transition from liquid diet to solid diet. He was encouraged by medical doctor throughout the day to try to some walking in the hallway which he has yet to attempt today. Patient does not appear to have acute pain concerns as he did yesterday. As per patient's nurse, behavioral health doctor saw the patient today. -10/20/19: Patient feels subjective better today. He reports less fearful today of his surroundings. He feels he is walking more in his room. Patient reports generalized pain feels better today with pain medications. He reports he does not feel confident yet to go home. Patient prefers to continue the IV Lasix for now. Psychiatry service is following the patient in the hospital stay History of paranoid schizophrenia -behavioral health recommendations are appreciated Paroxysmal Atrial fibrillation -Tachycardic on presentation due to being non complaint -Continue metoprolol, Effient -Poor candidate for home anticoagulation due to paranoid schizophrenia, Non compliance -non specific reported symptoms on 10/16/19 -cardiac rate and rhythm appears to be uneventful on telemetry monitoring; transfer from telemetry garcia to medical garcia on 10/16/19 for further monitoring -10/18/19: decrease metoprolol 25 mg BID to 12.5 mg to alleviate any possible malaise from beta polo -10/19/19 to 10/20/19: continue 12.5 mg BID metoprolol Chronic lymphedema Malnutrition -chronic right lower extremity edema -food diet and diuretic and BOOST nutrition supplements Hypertension -Lasix diuretic and metoprolol tartrate Chronic anemia -no concern for any gross bleeding Hyperthyroidism -Continue methimazole Chronic Abdominal pain -admission:CT ABD:Interval increase in marked biliary ductal dilatation as well as increased pancreatic ductal dilatation. No evidence of an obstructing mass or calculus allowing for limitations of this single phase CT examination. Given this was present to a significant degree on the prior exam, this could represents a benign stricture at the sphincter of Oddi among other possibilities. Correlate with LFTs. Gallbladder wall thickening/pericholecystic fluid. This is nonspecific in the setting of volume overload. Volume overload with congestive change and pulmonary edema at the lung bases, pericardial and pleural effusions, anasarca, and mesenteric edema. Fluid in the mid small bowel could indicate a mild enteritis among other etiologies. Feces in the distal small bowel without evidence of bowel obstruction, possibly due to delayed trans it, bacterial overgrowth, or an incompetent ileocecal valve. Chronic IVC occlusion. Possible asymmetric bladder wall thickening along the right anterolateral aspect. This could relate to chronic bladder obstruction in the setting of prostatomegaly, however, an underlying neoplastic etiology is not excluded. -send urine analysis -send PSA history of Testicular Cancer -S/P surgery and chemotherapy in the past DVT Px: heparin for DVT prophylaxis if patient takes Code Status Full code Subjective Patient feels subjective better today. He reports less fearful today of his surroundings. He feels he is walking more in his room. Patient reports generalized pain feels better today with pain medications. He reports he does not feel confident yet to go home. Patient prefers to continue the IV Lasix for now Review of Systems Review of Systems: All systems reviewed & are unremarkable except as noted in HPI & below Physical Exam Constitutional: comfortable Eyes: PERRL, conjunctivae normal, anicteric sclerae EOM intact bilaterally ENMT: external ear and nose normal, oropharynx normal Neck: normal visual inspection Respiratory: normal respiratory effort Cardiovascular: RRR, no murmur, no edema Gastrointestinal (Abdomen): normal bowel sounds, soft, nontender, no hepatosplenomegaly Musculoskeletal: Head/Neck/Chest: normocephalic and head atraumatic Neurologic: PERRL, EOMI, accommodation nl, no face palsy, no dysarthria Psychiatric: Orientation: alert, oriented x 3 and cooperative Results & Data Vital Signs (Past 12 Hours) Vital Signs Temp Pulse Resp BP Pulse Ox 10/20/19 15:00 36.6 C 83 17 149/101 H 98 10/20/19 07:26 36.6 C 81 34 H 148/95 H 99
[2019-10-20 21:21] LABS: Appearance Urine Clear (Clear); Bilirubin Urine Negative (Negative); Blood Urine Negative (Negative); Cast Urine Automated 0 /lpf (0-5); Color Urine Dark Yellow; Glucose Urine UA Negative (Negative); Ketones Urine Negative (Negative); Leukocyte Esterase Urine Negative (Negative); Nitrite Urine Negative (Negative); Protein Urine 1+ (Negative); RBC Urine Automated 0-4 /hpf (0-4); Specific Gravity Urine 1.022 (1.000-1.030); Urobilinogen Urine Negative (Negative); pH Urine 6.5 (4.5-7.5)
[2019-10-20 21:33] LABS: Calcium Oxalate Crystals Urine Present (None Prsent)
[2019-10-20 21:34] LABS: Bacteria Urine Automated 1+ (Negative); Mucus Urine Present (None Prsent)
[2019-10-21] MEDS: HYDROmorphone INJ 0.5 MG/0.5 ML SYR IV PRN ×3 (05:30→21:35)
[2019-10-21 07:43] LABS: Albumin Level 2.3 gm/dl (3.4-5.0); BUN Creatinine Ratio 25.6 (10-20); Calcium 8.5 mg/dl (8.5-10.1); Creatinine Clr Calc Pharmacy 73.3 ml/min; Est GFR (African American) 106.1; Est GFR (Non-African American) 91.5; Magnesium 1.8 mg/dl (1.8-2.4); Potassium 3.9 mmol/L (3.5-5.1)
[2019-10-21 07:48] LABS: Albumin Globulin Ratio 0.6 (0.9-2); Bilirubin,Total 0.5 mg/dl (0.2-1); Globulin 4.1 gm/dl (2.5-4.0); Prostate Specific Antigen 0.323 ng/ml (0-4); Total Protein 6.4 gm/dl (6.4-8.2)
[2019-10-21] MEDS: HEPARIN SOD 5,000 UNIT/0.5 ML VIAL SQ SCH ×2 (08:44→20:33)
[2019-10-21] MEDS: PRASugrel TAB 10 MG TAB PO SCH (09:16)
[2019-10-21] MEDS: MAGNESIUM OXIDE 400 MG TAB PO SCH (09:16)
[2019-10-21] MEDS: METOPROLOL TARTRATE 25 MG TAB PO SCH ×2 (09:16→20:34)
[2019-10-21] MEDS: FUROSEMIDE 20 MG in SYRINGE 0 ML IV SCH ×2 (09:16→16:34)
[2019-10-21] MEDS: methIMAzole 5 MG TABLET PO SCH ×2 (09:17→20:34)
[2019-10-21] MEDS: ATORVASTATIN 40 MG TAB PO SCH (09:17)
[2019-10-21] MEDS: ASPIRIN 81 MG ECTAB PO SCH (09:19)
[2019-10-21] MEDS ORDERED: METOPROLOL TARTRATE 25 MG TAB PO STA (11:59)
--- NOTE | 2019-10-21 15:34 | Hospitalist Progress Note ---
Date of Service October 21, 2019 Assessment & Plan (1) Atypical chest pain: Atypical chest pain Acute on chronic systolic CHF history of Ischemic Cardiomyopathy, Coronary Artery Disease -S/P stents in the past - admission CTA: No evidence of acute pulmonary embolism. Suspected congestive heart failure/fluid overload. Pulmonary emphysema. Lower lobe bronchial wall thickening. -chest pain likely due to volume overload and initial tachycardia Secondary to Non compliance with Medications -Chronic elevation of Troponin which peaked at on this admission on 10/14/19 as 0.088 -patient confirms being nonadherent to medications, continue cardiac medications while inpatient -encourage patient to take diuretics -10/18/19: Patient seen and examined at bedside. Breathing on room air. Having intermittent adherence to oral diuretic. Patient reports his appetite is decreased. he feels afraid of the food. he denies acute pain of the neck or pain with swallowing. he does not report of choking. he repeatedly asks for narcotic pain medication because he thinks it will prevent him from feeling light headed or general malaise of the face. he denies headache. blood pressure is stable. patient has not been noted by nursing staff to have episodes of passing up. When asked if he has been ambulating, he reports he did not ambulate very far in the [place] way before he feels that he cannot do it anymore. Discussed with patient about about some increased congestion on chest X ray. he is agreeable to IV diuretic. He declines respiratory antibiotics because he thinks the antibiotics will make him "disappear" by weight loss. Hospitalists expressed concern about his miscellaneous and vague complaints and asked him if he is agreeable to be evaluated by inpatient psychiatry. Patient denies that his feelings are from anxiety but allows psychiatry consultation -10/19/19: Patient is very different in attitude today. He reports he is feeling better, no longer scared of eating and would like to try to transition from liquid diet to solid diet. He was encouraged by medical doctor throughout the d ay to try to some walking in the hallway which he has yet to attempt today. Patient does not appear to have acute pain concerns as he did yesterday. As per patient's nurse, behavioral health doctor saw the patient today. -10/20/19: Patient feels subjective better today. He reports less fearful today of his surroundings. He feels he is walking more in his room. Patient reports generalized pain feels better today with pain medications. He reports he does not feel confident yet to go home. Patient prefers to continue the IV Lasix for now. Psychiatry service is following the patient in the hospital stay -10/21/19: Patient seen and examined this AM. was able to ambulate with physical therapist. Diastolic blood pressures noted to be elevated. Patient had metoprolol 12.5 mg BID re-dosed to 25 mg BID by having additional 12.5 mg metoprolol added on on original 12.5 mg morning dose . The additional dose of metoprolol appears to better control heart rate and blood pressure. However, when seen later this afternoon, patient complains of malaise. he declines to get out of the bed. no actual syncope episodes. patient not in pain. patient is being visited by his home director quality systems today. History of paranoid schizophrenia -behavioral health recommendations are appreciated Paroxysmal Atrial fibrillation -Tachycardic on presentation due to being non complaint -Continue metoprolol, Effient -Poor candidate for home anticoagulation due to paranoid schizophrenia, Non compliance -non specific reported symptoms on 10/16/19 -cardiac rate and rhythm appears to be uneventful on telemetry monitoring; transfer from telemetry garcia to medical garcia on 10/16/19 for further monitoring -10/18/19: decrease metoprolol 25 mg BID to 12.5 mg to alleviate any possible malaise from beta polo -10/19/19 to 10/20/19: continue 12.5 mg BID metoprolol -10/21/19 resumed metoprolol 25 mg BID metoprolol as diastolic blood pressures were recorded above 100 when on reduced metoprolol Chronic lymphedema Malnutrition -chronic right lower extremity edema -food diet and diuretic and BOOST nutrition supplements Hypertension -Lasix diuretic and metoprolol tartrate Chronic anemia -no concern for any gross bleeding Hyperthyroidism -Continue methimazole Chronic Abdominal pain -admission:CT ABD:Interval increase in marked biliary ductal dilatation as well as increased pancreatic ductal dilatation. No evidence of an obstructing mass or calculus allowing for limitations of this single phase CT examination. Given this was present to a significant degree on the prior exam, this could represents a benign stricture at the sphincter of Oddi among other possibilities. Correlate with LFTs. Gallbladder wall thickening/pericholecystic fluid. This is nonspecific in the setting of volume overload. Volume overload with congestive change and pulmonary edema at the lung bases, pericardial and pleural effusions, anasarca, and mesenteric edema. Fluid in the mid small bowel could indicate a mild enteritis among other etiologies. Feces in the distal small bowel without evidence of bowel obstruction, possibly due to delayed transit, bacterial overgrowth, or an incompetent ileocecal valve. Chronic IVC occlusion. Possible asymmetric bladder wall thickening along the right anterolateral aspect. This could relate to chronic bladder obstruction in the setting of prostatomegaly, however, an underlying neoplastic etiology is not excluded. -10/20/19 urine analysis with normal urine culture -10/20/19 PSA is normal history of Testicular Cancer -S/P surgery and chemotherapy in the past DVT Px: heparin for DVT prophylaxis if patient takes Code Status Full code Subjective Patient seen and examined this AM. was able to ambulate with physical therapist. Diastolic blood pressures noted to be elevated. Patient had metoprolol 12.5 mg BID re-dosed to 25 mg BID by having additional 12.5 mg metoprolol added on on original 12.5 mg morning dose . The additional dose of metoprolol appears to better control heart rate and blood pressure. However, when seen later this afternoon, patient complains of malaise. he declines to get out of the bed. no actual syncope episodes. patient not in pain. patient is being visited by his home director quality systems today. Physical Exam Constitutional: comfortable Eyes: PERRL, conjunctivae normal, anicteric sclerae EOM intact bilaterally ENMT: external ear and nose normal, oropharynx normal Neck: normal visual inspection Respiratory: normal respiratory effort Cardiovascular: RRR, no murmur, no edema Gastrointestinal (Abdomen): normal bowel sounds, soft, nontender, no hepatosplenomegaly Musculoskeletal: Head/Neck/Chest: normocephalic and head atraumatic Neurologic: PERRL, EOMI, accommodation nl, no face palsy, no dysarthria Psychiatric: Orientation: alert, oriented x 3 and cooperative Results & Data Vital Signs (Past 12 Hours) Vital Signs Temp Pulse Resp BP BP Pulse Ox 10/21/19 15:00 36.8 C 75 19 138/87 100 10/21/19 11:52 168/126 H 10/21/19 06:58 36.7 C 91 H 18 165/102 H 92
[2019-10-22] MEDS: HYDROmorphone INJ 0.5 MG/0.5 ML SYR IV PRN ×3 (07:19→23:35)
[2019-10-22] MEDS: HEPARIN SOD 5,000 UNIT/0.5 ML VIAL SQ SCH ×2 (07:21→20:37)
[2019-10-22] MEDS: ATORVASTATIN 40 MG TAB PO SCH (08:37)
[2019-10-22] MEDS: FUROSEMIDE 20 MG in SYRINGE 0 ML IV SCH ×3 (08:37→18:13)
[2019-10-22] MEDS: PRASugrel TAB 10 MG TAB PO SCH (08:38)
[2019-10-22] MEDS: ASPIRIN 81 MG ECTAB PO SCH (08:38)
[2019-10-22] MEDS: MAGNESIUM OXIDE 400 MG TAB PO SCH (08:39)
[2019-10-22] MEDS: METOPROLOL TARTRATE 25 MG TAB PO SCH ×2 (08:39→20:37)
[2019-10-22] MEDS: methIMAzole 5 MG TABLET PO SCH ×2 (08:40→20:37)
--- NOTE | 2019-10-22 15:28 | Hospitalist Progress Note ---
Date of Service October 22, 2019 Assessment & Plan (1) Atypical chest pain: Atypical chest pain Acute on chronic systolic CHF history of Ischemic Cardiomyopathy, Coronary Artery Disease -S/P stents in the past - admission CTA: No evidence of acute pulmonary embolism. Suspected congestive heart failure/fluid overload. Pulmonary emphysema. Lower lobe bronchial wall thickening. -chest pain likely due to volume overload and initial tachycardia Secondary to Non compliance with Medications -Chronic elevation of Troponin which peaked at on this admission on 10/14/19 as 0.088 -patient confirms being nonadherent to medications, continue cardiac medications while inpatient -encourage patient to take diuretics BID -10/18/19: Patient seen and examined at bedside. Breathing on room air. Having intermittent adherence to oral diuretic. Patient reports his appetite is decreased. he feels afraid of the food. he denies acute pain of the neck or pain with swallowing. he does not report of choking. he repeatedly asks for narcotic pain medication because he thinks it will prevent him from feeling light headed or general malaise of the face. he denies headache. blood pressure is stable. patient has not been noted by nursing staff to have episodes of passing up. When asked if he has been ambulating, he reports he did not ambulate very far in the [place] way before he feels that he cannot do it anymore. Discussed with patient about about some increased congestion on chest X ray. he is agreeable to IV diuretic. He declines respiratory antibiotics because he thinks the antibiotics will make him "disappear" by weight loss. Hospitalists expressed concern about his miscellaneous and vague complaints and asked him if he is agreeable to be evaluated by inpatient psychiatry. Patient denies that his feelings are from anxiety but allows psychiatry consultation -10/19/19: Patient is very different in attitude today. He reports he is feeling better, no longer scared of eating and would like to try to transition from liquid diet to solid diet. He was encouraged by medical doctor throughout the day to try to some walking in the hallway which he has yet to attempt today. Patient does not appear to have acute pain concerns as he did yesterday. As per patient's nurse, behavioral health doctor saw the patient today. -10/20/19: Patient feels subjective better today. He reports less fearful today of his surroundings. He feels he is walking more in his room. Patient reports generalized pain feels better today with pain medications. He reports he does not feel confident yet to go home. Patient prefers to continue the IV Lasix for now. Psychiatry service is following the patient in the hospital stay -10/21/19: Patient seen and examined this AM. was able to ambulate with physical therapist. Diastolic blood pressures noted to be elevated. Patient had metoprolol 12.5 mg BID re-dosed to 25 mg BID by having additional 12.5 mg metoprolol added on on original 12.5 mg morning dose . The additional dose of metoprolol appears to better control heart rate and blood pressure. However, when seen later this afternoon, patient complains of malaise. he declines to get out of the bed. no actual syncope episodes. patient not in pain. patient is being visited by his home training director today. 10/22/19: Patient is seen with wound care nurse. right lower extremity chronic edema is stable or improved. No purulent drainage of the legs. Patient reports he is afraid to go home without dilaudid pain medication. Medical doctor enforced that the dilaudid is not a medication that patient will be discharged for at end of hospital stay. Patient understands but he expresses concern of being afraid of what would happen without pain medication when at home. Medical doctor advised that dilaudid prn is on inpatient medication list only for emergency severe pain. Medical doctor advised patient to avoid asking for dilaudid and see how he can tolerate potential discomforts without strong pain medications History of paranoid schizophrenia -behavioral health recommendations are appreciated Paroxysmal Atrial fibrillation -Tachycardic on presentation due to being non complaint -Continue metoprolol, Effient -Poor candidate for home anticoagulation due to paranoid schizophrenia, Non compliance -non specific reported symptoms on 10/16/19 -cardiac rate and rhythm appears to be uneventful on telemetry monitoring; transfer from telemetry garcia to medical garcia on 10/16/19 for further monitoring -10/18/19: decrease metoprolol 25 mg BID to 12.5 mg to alleviate any possible malaise from beta polo -10/19/19 to 10/20/19: continue 12.5 mg BID metoprolol -10/21/19 resumed metoprolol 25 mg BID metoprolol as diastolic blood pressures were recorded above 100 when on reduced metoprolol Chronic lymphedema Malnutrition -chronic right lower extremity edema -food diet and diuretic and BOOST nutrition supplements Hypertension -Lasix diuretic BID and metoprolol tartrate -Lasix can be changed to oral on discharge, patient preference of IV Lasix for now to encourage adherence Chronic anemia -no concern for any gross bleeding Hyperthyroidism -Continue methimazole Chronic Abdominal pain -admission:CT ABD:Interval increase in marked biliary ductal dilatation as well as increased pancreatic ductal dilatation. No evidence of an obstructing mass or calculus allowing for limitations of this single phase CT examination. Given this was present to a significant degree on the prior exam, this could represents a benign stricture at the sphincter of Oddi among other possibilities. Correlate with LFTs. Gallbladder wall thickening/pericholecystic fluid. This is nonspecific in the setting of volume overload. Volume overload with congestive change and pulmonary edema at the lung bases, pericardial and pleural effusions, anasarca, and mesenteric edema. Fluid in the mid small bowel could indicate a mild enteritis among other etiologies. Feces in the distal small bowel without evidence of bowel obstruction, possibly due to delayed transit, bacterial overgrowth, or an incompetent ileocecal valve. Chronic IVC occlusion. Possible asymmetric bladder wall thickening along the right anterolateral aspect. This could relate to chronic bladder obstruction in the setting of prostatomegaly, however, an underlying neoplastic etiology is not excluded. -10/20/19 urine analysis with normal urine culture -10/20/19 PSA is normal history of Testicular Cancer -S/P surgery and chemotherapy in the past DVT Px: heparin for DVT prophylaxis if patient takes Code Status Full code Subjective Patient is seen with wound care nurse. right lower extremity chronic edema is stable or improved. No purulent drainage of the legs. Patient reports he is afraid to go home without dilaudid pain medication. Medical doctor enforced that the dilaudid is not a medication that patient will be discharged for at end of hospital stay. Patient understands but he expresses concern of being afraid of what would happen without pain medication when at home. Medical doctor advised that dilaudid prn is on inpatient medication list only for emergency severe pain. Medical doctor advised patient to avoid asking for dilaudid and see how he can tolerate potential discomforts without strong pain medications Review of Systems Review of Systems: All systems reviewed & are unremarkable except as noted in HPI & below Physical Exam Constitutional: comfortable Eyes: PERRL, conjunctivae normal, anicteric sclerae EOM intact bilaterally ENMT: external ear and nose normal, oropharynx normal Neck: normal visual inspection Respiratory: normal respiratory effort Cardiovascular: RRR, no murmur, no edema Gastrointestinal (Abdomen): normal bowel sounds, soft, nontender, no hepatosplenomegaly Musculoskeletal: Head/Neck/Chest: normocephalic and head atraumatic right lower extremity swelling is improved Neurologic: PERRL, EOMI, accommodation nl, no face palsy, no dysarthria Psychiatric: Orientation: alert, oriented x 3 and cooperative Results & Data Vital Signs (Past 12 Hours) Vital Signs Temp Pulse Resp BP Pulse Ox 10/22/19 15:04 36.9 C 80 20 130/87 99 10/22/19 06:18 36.7 C 86 19 152/96 H 94
[2019-10-23] MEDS: HYDROmorphone INJ 0.5 MG/0.5 ML SYR IV PRN (08:30)
[2019-10-23] MEDS: ATORVASTATIN 40 MG TAB PO SCH (08:34)
[2019-10-23] MEDS: methIMAzole 5 MG TABLET PO SCH (08:34)
[2019-10-23] MEDS: ASPIRIN 81 MG ECTAB PO SCH (08:34)
[2019-10-23] MEDS: MAGNESIUM OXIDE 400 MG TAB PO SCH (08:34)
[2019-10-23] MEDS: METOPROLOL TARTRATE 25 MG TAB PO SCH (08:35)
[2019-10-23] MEDS: PRASugrel TAB 10 MG TAB PO SCH (08:35)
[2019-10-23] MEDS: HEPARIN SOD 5,000 UNIT/0.5 ML VIAL SQ SCH (08:36)
[2019-10-23] MEDS: FUROSEMIDE 20 MG in SYRINGE 0 ML IV SCH (08:38)
--- NOTE | 2019-10-23 12:37 | Discharge Summary ---
Date of Service October 23, 2019 Admission HPI Per Admitting Provider Chief Complaint: Chest pain, right-sided abdominal pain heart pounding Primary Care Provider: Dr. Misty Vora History obtained from patient and records. Medical history significant for chronic systolic heart failure secondary to ischemic cardiomyopathy EF 45%, TTE 2019), severe MR, CAD status post stent, hypertension, hx PAF, paranoid schizophrenia, past hx DVT, hxf testicular CA sp surgery and chemotherapy, past tobacco abuse, chronic anemia (baseline hemoglobin of 10-11), chronic lymphedema, medication noncompliance. Recent confinement last month for decompensated CHF. Patient discharged to detention. As per patient, he did not have medications at home on discharge Medications will be refilled until October 16, 2019. No follow-up with PCP. Riri case checker unable to contact patient on multiple attempts as per outpatient notes. 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 Patient woke up this morning with sudden right-sided chest discomfort and shortness of breath. Achy right-sided abdominal pain. No constipation/diarrhea/patient. Admission Exam Per Admitting Provider GENERAL: Anxious, chronic dysphonia, minimal respiratory distress, underweight SKIN: Pallor , warm HEENT: Pale palpebral conjunctivae, no ptosis, dry buccal mucosa NECK : Supple, no tenderness CHEST : Decreased breath sounds, minimal right-sided chest wall tenderness HEART : RRR, systolic murmur ABDOMEN: Scaphoid abdomen, right-sided abdominal tenderness EXTREMITIES : Chronic bilateral LE swelling RLE greater than the left; minimal RLE tenderness NEUROLOGIC : Coherent, no facial asymmetry, no other gross focality Principal Diagnosis Acute on chronic systolic CHF History of paranoid schizophrenia Paroxysmal Atrial fibrillation Chronic lymphedema Malnutrition Hypertension Chronic anemia Hyperthyroidism Chronic Abdominal pain history of Testicular Cancer Discharge Exam Constitutional: comfortable Eyes: PERRL, conjunctivae normal, anicteric sclerae EOM intact bilaterally ENMT: external ear and nose normal, oropharynx normal Neck: normal visual inspection Respiratory: normal respiratory effort Cardiovascular: RRR, no murmur, no edema Gastrointestinal: normal bowel sounds, soft, nontender, no hepatosplenomegaly Head/Neck/Chest: normocephalic and head atraumatic Neurologic: PERRL, EOMI, accommodation nl, no face palsy, no dysarthria Psychiatric: Orientation: alert, oriented x 3 and cooperative Extremities: +Chronic lymphedema/venous stasis changes involving right leg Discharge Data Allergies Allergy/AdvReac Type Severity Reaction Status Date / Time horse dander Allergy Unknown HORSE HAIR Verified 10/14/19 02:15 tetanus toxoid, adsorbed Allergy Unknown Unknown Verified 10/14/19 02:15 Consultations 10/14/19 03:48 ED Decision to Admit Stat 10/14/19 05:39 Consult Case Management - Discharge Planning Routine 10/18/19 14:58 Consult Psychiatry Routine Ordered Studies 10/14/19 04:46 CT abd pelvis IV con only Urgent CT angio chest PE protocol Urgent XR chest 1V portable CLINICAL HISTORY: Chest pain. COMPARISON STUDY: Chest CT and chest radiograph September 11, 2019. FINDINGS: There is no pneumothorax. Moderate cardiomegaly is noted. Mild pulmonary edema is present. Small bilateral pleural effusions are present. IMPRESSION: Mild pulmonary edema with small bilateral pleural effusions. Electronically signed by: Terence Donahue M.D. 10/14/2019 7:06 AM Dictated: 10/14/19 0704 Transcribed: 10/14/19 07 [place], [place] [phone] CT Scan Report Patient: LUZ MARINA MORALEZAdmit Date: 10/14/19 MR#: [id number]: [address] Acct ID:[id number]: Date: 2City Zip: [place] [address] Age: 69Location: 2S Sex: M Room/Bed: [facility] Att Phy: Uche Chatman, MDDiagnosis: CP Tere Phy: PCP,NOService Date: 10/14/19 Fam Phy:Interpreting Phy: Delta Gotti MD Admit Phy: Trung Montiel MD Ordering Phy: Trung Montiel MD cc: ~ ADDENDUM Additional impression: 7. Possible asymmetric bladder wall thickening along the right anterolateral aspect. This could relate to chronic bladder obstruction in the setting of prostatomegaly, however, an underlying neoplastic etiology is not excluded. Correlate with urinalysis and consider urologic consultation on a nonurgent outpatient basis. Electronically signed by: Delta Gotti M.D. 10/14/2019 6:[address] abd pelvis IV con only CLINICAL HISTORY: 69 years-old Male presenting with right-sided abdominal pain. TECHNIQUE: Multidetector CT of the abdomen and pelvis was performed after the administration of intravenous contrast. IV contrast: 117 mL of Optiray 320. One or more dose lowering techniques were used consistent with the principles of ALARA (as low as reasonably achievable), including automatic exposure control, mA or kV adjustment to individual patient size, and/or use of iterative reconstruction. COMPARISON: 01/21/2017. CT DOSE (mGy.cm): The estimated cumulative dose is 535.88 mGy.cm. FINDINGS: Clothing Sorter topogram: Surgical clips project over the right lower quadrant. Lung bases: Moderate multichamber enlargement of the heart. Small pericardial effusion. Small bilateral pleural effusions. Extensive lower lobe bronchial wall thickening and interlobular septal thickening. Dependent atelectasis as well as patchy superimposed groundglass opacity. Liver: Normal morphology. Heterogeneous enhancement may relate to the early portal venous phase. Allowing for the phase of contrast, no focal lesion. Hepatic veins not yet opacified. Hepatic artery and portal veins patent. Biliary: Marked central predominant intrahepatic and extrahepatic biliary ductal dilatation, which is slightly increased from prior. The common bile duct measures 1.7 cm in diameter in the midportion. No gross evidence of obstructing mass or calculus. Gallbladder wall thickening versus or cholecystic fluid. Mucosal hyperemia of the gallbladder. Pancreas: Pancreatic ductal dilatation slightly increased from prior exam. No gross evidence of an obstructing calculus or mass. Spleen: Normal. Adrenal glands: Normal. Kidneys and ureters: Severe atrophy of the right kidney. Normal left kidney allowing for the phase of contrast. No nephrolithiasis or hydronephrosis. Left ureter nondistended. Bladder: Possible asymmetric wall thickening along the right anterolateral aspect of the bladder. Pelvic organs: Prostate and seminal vesicles normal. Bowel: Mild stool burden throughout normal caliber colon. The appendix is not visualized and surgical clips are noted in the right lower quadrant as on prior exam no bowel obstruction. Fluid noted in the mid small bowel. Feces noted in the distal small bowel likely indicating delayed transit, bacterial overgrowth, or an incompetent ileocecal valve. Peritoneal cavity: Mesenteric edema. Trace free fluid in the pelvis. No free intraperitoneal gas. Lymph nodes: Allowing for diffuse infiltrative fat planes, no lymphadenopathy. Vasculature: Prominent varices in the abdominal wall. There is nonopacification and likely chronic occlusion of the IVC and common iliac veins. This could account for the presence of the prominent collateral vasculature the abdominal wall. Prominent veins in the retrocrural regions also noted. Diffuse atherosclerosis including along the origins and courses of several of the major branch vessels most prominently the superior mesenteric artery. Abdominal wall: Severe body wall edema. Musculoskeletal: Degenerative changes of the spine. IMPRESSION: 1. Interval increase in marked biliary ductal dilatation as well as increased pancreatic ductal dilatation. No evidence of an obstructing mass or calculus allowing for limitations of this single phase CT examination. Given this was present to a significant degree on the prior exam, this could represents a benign stricture at the sphincter of Oddi among other possibilities. Correlate with LFTs. 2. Gallbladder wall thickening/pericholecystic fluid. This is nonspecific in the setting of volume overload. 3. Volume overload with congestive change and pulmonary edema at the lung bases, pericardial and pleural effusions, anasarca, and mesenteric edema. 4. Fluid in the mid small bowel could indicate a mild enteritis among other etiologies. Feces in the distal small bowel without evidence of bowel obstruction, possibly due to delayed transit, bacterial overgrowth, or an incompetent ileocecal valve. 5. Chronic IVC occlusion. 6. Additional findings as above. Electronically signed by: Delta Gotti M.D. 10/14/2019 6:52 AM Dictated: 10/14/19 0640 Transcribed: 10/14/[address] ANGIOGRAM OF THE CHEST CLINICAL HISTORY: Atypical chest pain. Shortness of breath. COMPARISON STUDY: 09/11/2019 TECHNIQUE: Following the IV administration of mL of Optiray-320, CT angiogram of the thorax was performed from the thoracic inlet to the lung bases utilizing the pulmonary embolus protocol. Images are reviewed in the axial, sagittal, and coronal planes. IV contrast was administered without complication. MIP imaging was performed. A dose lowering technique was utilized adhering to the principles of ALARA. CT DOSE: FINDINGS: No pathologically enlarged axillary mediastinal or hilar lymph nodes were visualized. There was no evidence of thoracic aortic dilatation. There were no pulmonary artery filling defects to indicate acute pulmonary embolism. There are small bilateral pleural effusions There is pulmonary edema. There is septal thickening. There is lower lobe bronchial wall thickening. There is reflux of contrast into hepatic veins suggesting elevated right heart pressures. The heart is enlarged. There are coronary artery calcifications. There is pulmonary edema with a 5 cm focus of clustered cysts within the left upper lobe. There is a suggestion of mild biliary ductal dilatation There is right renal atrophy. IMPRESSION: 1. No evidence of acute pulmonary embolism 2. Suspected congestive heart failure/fluid overload. 3. Pulmonary emphysema. 4. Lower lobe bronchial wall thickening. Electronically signed by: Villa Almeida M.D. 10/14/2019 6:48 AM Dictated: 10/14/1941 Transcribed: 10/14/19642 XR chest 1V portable CLINICAL HISTORY: CHF COMPARISON STUDY: 10/14/2019 FINDINGS: The heart remains enlarged. There is continued radiographic evidence for congestive failure/fluid overload with associated pulmonary edema. Developing left mid lower lung zone airspace opacities, likely represent focal edema. There is slight increase in the right pleural effusion.[A trace left pleural effusion is also suspected IMPRESSION: 1. Slight worsening pulmonary edema pattern. Developing left mid lower lung zone airspace opacities likely representing focal edema. There is slight increase in size of the right pleural effusion. Electronically signed by: Villa Almeida M.D. 10/16/2019 7:18 AM Dictated: 10/16/19 0717 Transcribed: 10/16/19716 SINGLE VIEW CHEST CLINICAL HISTORY: Dyspnea. FINDINGS: An AP, portable, upright chest radiograph is compared to study dated 10/16/2019 and correlated with chest CT dated 10/14/2019. The heart is enlarged noting atherosclerotic calcification of the thoracic aorta. There is pulmonary vascular congestion. Emphysematous change is noted. There are small layering pleural effusions with bibasilar consolidation. Diffuse bilateral airspace consolidation is similar to previous. No pneumothorax is seen. The skeletal structures are osteopenic. The bony thorax is grossly intact. IMPRESSION: 1. Cardiomegaly with evidence of congestive failure. 2. Multifocal bilateral airspace opacities have modestly increased from 10/14/2019. This likely represents interstitial edema. Correlate clinically for evidence of a superimposed infectious/inflammatory pneumonitis. 3. Layering pleural effusions. 4. Emphysema. Electronically signed by: Mulugeta Mccabe M.D. 10/18/2019 1:56 PM Dictated: 10/18/19 1354 Transcribed: 10/18/19 1354 Hospital Course (1) Atypical chest pain: Atypical chest pain Acute on chronic systolic CHF history of Ischemic Cardiomyopathy, Coronary Artery Disease -S/P stents in the past - admission CTA: No evidence of acute pulmonary embolism. Suspected congestive heart failure/fluid overload. Pulmonary emphysema. Lower lobe bronchial wall th ickening. -chest pain likely due to volume overload and initial tachycardia Secondary to Non compliance with Medications -Chronic elevation of Troponin which peaked at on this admission on 10/14/19 as 0.088 -patient confirms being nonadherent to medications, continue cardiac medications while inpatient -encourage patient to take diuretics BID - Refuse to take lasix because of increase urinary frequency -Advised pt again to take the lasix when discharge (outpatient) to avoid fluid overload and SOB -10/18/19: Patient seen and examined at bedside. Breathing on room air. Having intermittent adherence to oral diuretic. Patient reports his appetite is decreased. he feels afraid of the food. he denies acute pain of the neck or pain with swallowing. he does not report of choking. he repeatedly asks for narcotic pain medication because he thinks it will prevent him from feeling light headed or general malaise of the face. he denies headache. blood pressure is stable. patient has not been noted by nursing staff to have episodes of passing up. When asked if he has been ambulating, he reports he did not ambulate very far in the [place] way before he feels that he cannot do it anymore. Discussed with patient about about some increased congestion on chest X ray. he is agreeable to IV diuretic. He declines respiratory antibiotics because he thinks the antibiotics will make him "disappear" by weight loss. Hospitalists expressed concern about his miscellaneous and vague complaints and asked him if he is agreeable to be evaluated by inpatient psychiatry. Patient denies that his feelings are from anxiety but allows psychiatry consultation -10/19/19: Patient is very different in attitude today. He reports he is feeling better, no longer scared of eating and would like to try to transition from liquid diet to solid diet. He was encouraged by medical doctor throughout the day to try to some walking in the hallway which he has yet to attempt today. Patient does not appear to have acute pain concerns as he did yesterday. As per patient's nurse, behavioral health doctor saw the patient today. -10/20/19: Patient feels subjective better today. He reports less fearful today of his surroundings. He feels he is walking more in his room. Patient reports generalized pain feels better today with pain medications. He reports he does not feel confident yet to go home. Patient prefers to continue the IV Lasix for now. Psychiatry service is following the patient in the hospital stay -10/21/19: Patient seen and examined this AM. was able to ambulate with physical therapist. Diastolic blood pressures noted to be elevated. Patient had metoprolol 12.5 mg BID re-dosed to 25 mg BID by having additional 12.5 mg metoprolol added on on original 12.5 mg morning dose . The additional dose of metoprolol appears to better control heart rate and blood pressure. However, when seen later this afternoon, patient complains of malaise. he declines to get out of the bed. no actual syncope episodes. patient not in pain. patient is being visited by his home broadcast operations director today. 10/22/19: Patient is seen with wound care nurse. right lower extremity chronic edema is stable or improved. No purulent drainage of the legs. Patient reports he is afraid to go home without dilaudid pain medication. Medical doctor enforced that the dilaudid is not a medication that patient will be discharged for at end of hospital stay. Patient understands but he expresses concern of being afraid of what would happen without pain medication when at home. Medical doctor advised that dilaudid prn is on inpatient medication list only for emergency severe pain. Medical doctor advised patient to avoid asking for dilaudid and see how he can tolerate potential discomforts without strong pain medications History of paranoid schizophrenia Psych on board As per Psych team pt is near his baseline, no inpatient psych therapy Paroxysmal Atrial fibrillation -Tachycardic on presentation due to being non complaint -Continue metoprolol, Effient -Poor candidate for home anticoagulation due to paranoid schizophrenia, Non compliance -non specific reported symptoms on 10/16/19 -cardiac rate and rhythm appears to be uneventful on telemetry monitoring; transfer from telemetry garcia to medical garcia on 10/16/19 for further monitoring -10/18/19: decrease metoprolol 25 mg BID to 12.5 mg to alleviate any possible malaise from beta polo -10/19/19 to 10/20/19: continue 12.5 mg BID metoprolol - Continue metoprolol 25 mg BID metoprolol Chronic lymphedema Malnutrition -chronic right lower extremity edema -food diet and diuretic and BOOST nutrition supplements Hypertension -Lasix diuretic BID and metoprolol tartrate -Lasix can be changed to oral on discharge, patient preference of IV Lasix for now to encourage adherence Chronic anemia -no concern for any gross bleeding Hyperthyroidism -Continue methimazole Chronic Abdominal pain CT ABD:Interval increase in marked biliary ductal dilatation as well as incr eased pancreatic ductal dilatation. No evidence of an obstructing mass or calculus allowing for limitations of this single phase CT examination. Given this was present to a significant degree on the prior exam, this could represents a benign stricture at the sphincter of Oddi among other possibilities. Correlate with LFTs. Gallbladder wall thickening/pericholecystic fluid. This is nonspecific in the setting of volume overload. Volume overload with congestive change and pulmonary edema at the lung bases, pericardial and pleural effusions, anasarca, and mesenteric edema. Fluid in the mid small bowel could indicate a mild enteritis among other etiologies. Feces in the distal small bowel without evidence of bowel obstruction, possibly due to delayed transit, bacterial overgrowth, or an incompetent ileocecal valve. Chronic IVC occlusion. Possible asymmetric bladder wall thickening along the right anterolateral aspect. This could relate to chronic bladder obstruction in the setting of prostatomegaly, however, an underlying neoplastic etiology is not excluded. -10/20/19 urine analysis with normal urine culture -10/20/19 PSA is normal -Will need to monitor bladder wall with outpatient CT -Might consider outpatient urology consult history of Testicular Cancer -S/P surgery and chemotherapy in the past DVT Px: heparin for DVT prophylaxis if patient takes Code Status Full code Total Time Total Time Spent Total Time Spent (In Minutes): 35 minutes Total Time Includes: Examination of the Patient, Discharge Planning, Medication Reconciliation, Communication With Other Providers and Other Discharge Plan Discharge Items Patient Disposition: Home - Home Health Services Reason For Visit: CP Discharge Diagnosis: Atypical chest pain, Acute on chronic systolic Congestive Heart failure, Chronic lymphedema, Malnutrition, chronic anemia, History of paranoid schizophrenia, Hypertension Activity: Resume your previous activity Activity Comment: As tolerated Non-emergency contact: Primary Care Provider Call non-emergency contact if: you have any medication questions Follow-up/Referrals: PCP,NO [Primary Care Provider] - Diet: Heart Healthy Addtl Attending Provider Instructions: Follow up with your primary care provider Dr. Vora on 10/29 @ 11:20 AM Continue physical and occupational therapy Fall precaution Fluid restrictions to 1.5L daily Do not drive or perform any machine after taking the tramadol Please hold next dose if you become lethargy or drowsy IT IS VERY IMPORTANT FOR YOU TO TAKE MEDICATIONS DIRECTED Call your Primary Care doctor if any of the following symptoms or problems start or get worse: Shortness of breath or difficulty breathing Wake up at night short of breath Chest pain Cough Swelling of your hands, feet, or legs More fatigued or tired with your normal activity Palpitations - sudden fast heart beats WEIGHT Weigh yourself every morning after using the bathroom. Use the same scale. Wear the same amount of clothing. Write your weight down on a chart. Call your Primary Care doctor if you gain more than 2-3 pounds in 1-2 days. MEDICATIONS Use this discharge instruction sheet for medication instructions. Take your medications at the time your doctor ordered. Do not skip a dose of your medicines. If you miss a dose of medicine, take it as soon as possible, but DO NOT DOUBLE A DOSE. Read your medicine information when you get home. Know all of the side effects of your medicine. If in doubt, ask your pharmacist Call your Primary Care doctor's office if you have any side effects. Be sure all of your doctors know what medicine and herbs you take (including cold, flu, and herbal medicine). Take the following with you to your follow-up doctor appointments: Weight Chart Medication List List of questions Do not drink excessive alcohol, beer or wine. Pending Studies at Discharge: No Stand-Alone Forms: Call Back Authorization, [facility], Smoking Cessation Medications and DC Order Prescriptions: New tramadol 50 mg tablet 50 mg PO Q12H PRN (Reason: pain) Qty: 5 RF: 0 Continued atorvastatin 40 mg Tablet 80 mg PO QAM Qty: 30 RF: 0 nitroglycerin [Nitrostat] 0.4 mg Tablet, Sublingual 0.4 mg sublingual PRN PRN (Reason: chest pain) Qty: 30 RF: 0 prasugrel [Effient] 10 mg Tablet 10 mg PO QAM Qty: 30 RF: 0 aspirin [Ecotrin Low Strength] 81 mg Tablet,Delayed Release (Dr/Ec) 81 mg PO QAM Qty: 30 RF: 0 furosemide [Lasix] 40 mg tablet 40 mg PO BID Qty: 60 RF: 0 Discontinued tramadol 50 mg tablet 50 mg PO Q8 PRN (Reason: Pain) RF: 0 Discharge Orders: Discharge Order (Routine); Ordered 10/23/19 Ordered By: Funmi Valentine Admission Data Admit Date/Time: 10/14/19 04:52 Attending Provider: Funmi Valentine Admit Provider: Trung Montiel Primary Care Provider: PCP,NO Other Providers: [place] ; Trung Montiel ; Edson Honeycutt ; Arnold Gaspar. Other Interventions: Discharge Summary Assessment (RN) Last Done: 10/23/19 13:00 DC Date/Time DO NOT enter until pt leaves facility: 10/23/19 16:07
[2019-10-28] MEDS ORDERED: KETOROLAC TROMETHAMINE 15 MG/ML VIAL ONE (03:02)
== END 2019-10-23 16:07 | disposition home health service (06) | DRG 292 ==
LOC: ED 01:50 → 2S 01:50 → SUATTDRO 10-15 09:16 → 2W 10-15 18:43 → 4W 10-18 10:25

== ENCOUNTER 2019-11-10 05:39 | Inpatient (IN) ==
[2019-11-10 06:15] LABS: Basophils # (auto) 0.01 K/uL (0-0.2); Basophils % (auto) 0.1 %; Eosinophils # (auto) 0.07 K/uL (0-0.5); Eosinophils % (auto) 0.8 %; Hematocrit (blood only) 35.8 % (42-52); Hemoglobin 10.8 g/dL (14.0-18.0); Immature Granulocytes # (auto) 0.02 K/uL (0.00-0.02); Immature Granulocytes % (auto) 0.2 %; Lymphocytes # (auto) 0.66 K/uL (1.2-3.4); Lymphocytes % (auto) 7.6 %; Mean Corpuscular Hemoglobin 25.1 pg (25-34); Mean Corpuscular Hgb Conc 30.2 g/dL (32-36); Mean Corpuscular Volume 83.3 fL (80-100); Mean Platelet Volume 8.8 fL (7.4-10.4); Monocytes % (auto) 4.6 %; Neutrophils # (auto) 7.53 K/uL (1.4-6.5); Neutrophils % (auto) 86.7 %; Platelet Count 198 K/uL (130-400); RDW Coefficient of Variation 16.2 % (11.5-14.5); RDW Standard Deviation 49.2 fL (36.4-46.3); White Blood Count 8.69 K/uL (4.8-10.8)
[2019-11-10 06:35] LABS: BUN Creatinine Ratio 18.5 (10-20); Calcium 9.2 mg/dl (8.5-10.1); Creatinine Clr Calc Pharmacy 67.2 ml/min; Est GFR (African American) 92.1; Est GFR (Non-African American) 79.5; Potassium 3.6 mmol/L (3.5-5.1)
[2019-11-10 06:44] LABS: Albumin Globulin Ratio 0.6 (0.9-2); Bilirubin,Total 0.7 mg/dl (0.2-1); Globulin 4.7 gm/dl (2.5-4.0); Total Protein 7.7 gm/dl (6.4-8.2); Troponin I 0.057 ng/ml (0-0.045)
[2019-11-10] MEDS ORDERED: fentaNYL citrate 100 MCG/2 ML VIAL IV STA (06:51)
--- NOTE | 2019-11-10 07:01 | XRay Report ---
XR chest 1V portable CLINICAL HISTORY: Chest pain. COMPARISON STUDY: Chest CT October 14, 2019 and chest radiograph October 18, 2019. FINDINGS: There is no pneumothorax. Small right and trace left pleural effusions are noted. Cardiomeg patricio is unchanged. Pulmonary edema has slightly improved since exam of October 18, 2019. Bibasilar op acities persist. IMPRESSION: 1. Mild interstitial pulmonary edema, slightly improved since prior exam October 18, 2019. 2. Persistent bibasilar opacities which may reflect pulmonary edema, atelectasis or consolidation. 3. Small right and trace left pleural effusions. ACT 112: Negative or not required by law. Electronically signed by: Terence Donahue M.D. 11/10/2019 7:00 AM
--- NOTE | 2019-11-10 07:08 | Emergency Department Note ---
Entered by Kathy Lynn acting as a scribe for History of Present Illness General Chief complaint: Chest Pain Stated complaint: chest pain Time Seen by Provider: 11/10/19 05:40 Source: patient History of Present Illness Onset (ago): hour(s) (5.5) Location: chest Pain Consistency: + other (persistent) Quality: + other (gripping) Associated symptoms: + cough, + shortness of breath and + other (positive congestion) The patient is a 69 year old male who presents to the Emergency Room with complaints of persistent chest pain that began at 0030, approximately 5.5 hours prior to arrival. The patient describes this as a "gripping" pain. He reports congestion, cough, and shortness of breath at this time. The patient states that he has had more energy, but states "I am able to hurt myself more" and "I can hit myself". The patient denies wanting to hurt himself. The patient states that he has been having "nightmarish things" over the past 4 days while watching TV. He denies hallucinations. Home Medications Home Medications Medication Instructions Recorded Confirmed Type aspirin [Ecotrin Low Strength] 81 mg PO QAM #30 tab 07/16/19 11/10/19 Rx nitroglycerin [Nitrostat] 0.4 mg SUBLINGUAL PRN PRN #30 tab 07/16/19 11/10/19 Rx prasugrel [Effient] 10 mg PO QAM #30 tab 07/16/19 11/10/19 Rx furosemide [Lasix] 40 mg PO BID #60 tab 09/25/19 11/10/19 Rx tramadol 50 mg PO Q12H PRN #5 tab 10/23/19 11/10/19 Rx atorvastatin 20 mg PO HS 11/10/19 11/10/19 History metoprolol tartrate 25 mg PO BID 11/10/19 11/10/19 History Allergies Allergy/AdvReac Type Severity Reaction Status Date / Time horse dander Allergy Unknown HORSE HAIR Verified 11/10/19 06:10 tetanus toxoid, adsorbed Allergy Unknown Unknown Verified 11/10/19 06:10 Past Med/Surg History Medical History CAD (coronary artery disease) CHF exacerbation (Acute) Cholecystitis, acute History of DVT (deep vein thrombosis) History of pancreatitis History of testicular cancer History of tobacco abuse Homelessness HTN (hypertension) (Chronic) "declines to take medication" Hypertension Hyperthyroidism Lymphedema of right lower extremity Pleural effusion Schizophrenia STEMI (ST elevation myocardial infarction) Surgical History Hx of heart artery stent Status post cardiac catheterization Family History Other Unknown family medical history Social History Preferred Language: Portuguese Communication Ability: Effective Brokerage Coordinator Required: No Beliefs That Will Affect Care: None Current Living Situation: Alone Current Living Situation Comment: apartment Feels Safe at Home: Yes Smoking Status: Former smoker Number of Years Since Quit: 10 ; Second Hand Exposure: No ; Hx Alcohol Use: Yes Alcohol type: hard liquor Hx Substance Use: No Review of Systems See HPI for pertinent positives & negatives. and A total of 10 systems reviewed and were otherwise negative Physical Exam Vital Signs Vital Signs - 24 hr 11/10/19 05:41 11/10/19 06:14 Temperature 36.4 C L Temperature Source Oral Pulse Rate 100 H Pulse Rate [Finger] 97 H Respiratory Rate 20 24 Respiratory Effort / Characteristics Non-Labored Spontaneous Respiratory Depth Normal Blood Pressure 144/111 H Blood Pressure [Right Arm] 137/86 Blood Pressure Mean 122 Blood Pressure Mean [Right Arm] 103 Pulse Oximetry 97 99 Oxygen Delivery Method Room Air Room Air Sepsis Action Taken by Nursing No Action Required HEENT: Head - normocephalic and atraumatic Pupils are equal, round, and reactive to light. Extraocular eye muscles are intact, and sclera are anicteric. Nose - moist nasal mucosa without discharge. Mouth - Poor dentition. Moist buccal mucosa. Oropharynx is nonerythematous and there is no tonsillar exudate or edema noted. Neck: Supple; no JVD, nuchal rigidity, cervical lymphadenopathy. Heart: Regular rate and rhythm. There is a normal S1 and S2 with no murmurs, clicks, or gallops appreciated. Lungs: Clear to auscultation bilaterally with no wheezes, rales, or rhonchi. Abdomen: Soft, completely nontender, nondistended, with good bowel sounds. There are no palpable pulsatile masses or hepatosplenomegaly. There is no guarding, rigidity, or rebound noted. Extremities: Right leg lymphedema. Small open wounds which appear very well healing. No evidence of cyanosis or clubbing. There are easily palpable peripher al pulses. Skin: warm and dry with good turgor and no rashes. Course Course 0547: Past medical records reviewed. The patient was evaluated in room A12B. A complete history and physical exam was performed. Laboratory studies were drawn as above. I ordered continuous cardiac monitoring on this patient. He was in normal sinus rhythm at 97. Upon my initial evaluation of the patient, the patient's chest pain had resolved. He seemed quite anxious. A chest x-ray was performed. 0647: I discussed the case with Dr. Diego Hospitalist who accepts the patient for further evaluation. 0651: I checked on and updated the patient on all results. He is asking for a very strong shot of pain medication as his chest pain has returned. The patient refused aspirin because it is the "source of all his problems". The patient states that he has not been taking any of his medications because he could not get them filled upon discharge from his last inpatient stay. He is in agreement with the treatment plan. Administered Medications Medical Decision Making Differential Diagnosis Differential diagnoses include cardiac chest pain, anxiety, nightmares, and others were considered. Medical Records Attestation: I reviewed the patient's medical records. Home Medications Current Medication List: was personally reviewed by me Laboratory Data Attestation: I reviewed the patient's lab results. Result diagrams: 11/10/19 05:59 11/10/19 05:59 Lab Results 11/10/19 11/10/19 Range/Units 05:59 05:59 WBC 8.69 (4.8-10.8) K/uL RBC 4.30 L (4.7-6.1) M/uL Hgb 10.8 L (14.0-18.0) g/dL Hct 35.8 L (42-52) % MCV 83.3 (80-100) fL MCH 25.1 (25-34) pg MCHC 30.2 L (32-36) g/dL RDW Std Deviation 49.2 H (36.4-46.3) fL RDW Coeff of Dante 16.2 H (11.5-14.5) % Plt Count 198 (130-400) K/uL MPV 8.8 (7.4-10.4) fL Immature Gran % (Auto) 0.2 % Neut % (Auto) 86.7 % Lymph % (Auto) 7.6 % Lee % (Auto) 4.6 % Eos % (Auto) 0.8 % Baso % (Auto) 0.1 % Immature Gran # (Auto) 0.02 (0.00-0.02) K/uL Neut # (Auto) 7.53 H (1.4-6.5) K/uL Lymph # (Auto) 0.66 L (1.2-3.4) K/uL Lee # (Auto) 0.40 (0.11-0.59) K/uL Eos # (Auto) 0.07 (0-0.5) K/uL Baso # (Auto) 0.01 (0-0.2) K/uL Sodium 141 (136-145) mmol/L Potassium 3.6 (3.5-5.1) mmol/L Chloride 113 H (98-107) mmol/L Carbon Dioxide 22 (21-32) mmol/L Anion Gap 7.0 (3-11) BUN 18 (7-18) mg/dl Creatinine 0.98 (0.6-1.4) mg/dl Est Cr Clr Drug Dosing 67.2 ml/min Est GFR ( Amer) 92.1 Est GFR (Non-Af Amer) 79.5 BUN/Creatinine Ratio 18.5 (10-20) Glucose 88 (70-99) mg/dl Calcium 9.2 (8.5-10.1) mg/dl Total Bilirubin 0.7 (0.2-1) mg/dl AST 18 (15-37) U/L ALT 17 (12-78) U/L Alkaline Phosphatase 132 H (45-117) U/L Troponin I 0.057 H* (0-0.045) ng/ml Total Protein 7.7 (6.4-8.2) gm/dl Albumin 3.0 L (3.4-5.0) gm/dl Globulin 4.7 H (2.5-4.0) gm/dl Albumin/Globulin Ratio 0.6 L (0.9-2) Lipase 392 (73-393) U/L Imaging Data Attestation: I personally reviewed and interpreted this imaging study as follows: My Impression: CHEST X-RAY 1 VIEW: Cardiomegaly. Mild CHF which is improved from chest x-ray on 10/18/19. ECG Data Attestation: I personally reviewed and interpreted this ECG as follows: Indication: + chest pain Rate (beats per minute): 100 Rhythm: + normal sinus ECG ST segments: + ST depression (lateral and inferior) Comparison ECG Date: from (10/14/19) Change: no significant change Blood Pressure Blood Pressure Findings: Elevated blood pressure Blood Pressure Disposition: elevated BP felt to be situational MDM Narrative The patient is a 69 year old male who presents to the Emergency Room with complaints of persistent chest pain that began at 0030, approximately 5.5 hours prior to arrival. The patient has a long history of intermittent episodes of CHF and chest pain. The patient had an elevated troponin which is not unusual for the patient. He states that his chest discomfort has returned and he was given a dose of fentanyl. I discussed the case with the [facility] hospitalist and they will evaluate for further management. The patient had been complaining of some back pain associated with chest pain but that has since resolved. There was a narrow mediastinum on chest x-ray. The patient stopped taking his aspirin and it is questionable whether or not the patient is currently taking his daily medications stating that he has not been able to get them filled. Impression & Plan Substernal chest pain, Mid back pain Discharge Plan Visit Data Chief Complaint: Chest Pain Stated Complaint: chest pain ED Provider: Zee Perry Discharge Problem: Substernal chest pain, Mid back pain Patient Disposition: Being Evaluated by Hospitalist Forms Stand Alone Forms: Call Back Authorization, [facility] Prescriptions Prescriptions: No Action nitroglycerin [Nitrostat] 0.4 mg Tablet, Sublingual 0.4 mg sublingual PRN PRN (Reason: chest pain) Qty: 30 RF: 0 prasugrel [Effient] 10 mg Tablet 10 mg PO QAM Qty: 30 RF: 0 aspirin [Ecotrin Low Strength] 81 mg Tablet,Delayed Release (Dr/Ec) 81 mg PO QAM Qty: 30 RF: 0 tramadol 50 mg tablet 50 mg PO Q12H PRN (Reason: pain) Qty: 5 RF: 0 atorvastatin 40 mg tablet 20 mg PO HS RF: 0 metoprolol tartrate 25 mg Tablet 25 mg PO BID RF: 0 furosemide [Lasix] 40 mg tablet 40 mg PO BID Qty: 60 RF: 0 Referrals Referrals: PCP,NO [Primary Care Provider] - The scribe's documentation has been prepared under my direction and personally reviewed by me in its entirety. I confirm that the note above accurately reflects all work, treatment, procedures, and medical decision making performed by me.
[2019-11-10 08:02] LABS: INR 1.1 (0.9-1.1); Prothrombin Time 11.6 Seconds (9.0-12.0)
--- NOTE | 2019-11-10 08:04 | History & Physical Report ---
Date of Service November 10, 2019 Assessment & Plan (1) Substernal chest pain: Mild elevation in troponin this morning with evidence of severe chest pain and a history of CAD with a history of smoking and clear noncompliance with medication. ACS is possible, however, he has a history of chronically elevated troponin. Patient is refusing aspirin. Continue to trend troponin. Keep patient n.p.o. in case need for cardiac catheterization arises. Consulted cardiology for their thoughts. The patient is agreeing to Lopressor, Lipitor, Effient at this time. He is also agreeable to morphine and tramadol as needed to control his pain. He declines nitro. (2) Elevated troponin: plan as above. Will repeat ECHO as last was in April and revealed abnormalities with a reduced EF. (3) CAD (coronary artery disease): Patient had an 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 He has a known chronic occlusion involving the right coronary artery. He was successfully stented in the circumflex vessel in 2018. Of note he also had an complete heart block around that episode as well as severe mitral regurgitation likely related to his acute infarct. Noncompliance in therapy played a role in these complications, and as mentioned he was recently admitted for CHF which has also been an ongoing issue. His complete heart block was resolved with reperfusion, and EKG this morning reveals no evidence of block. There is no murmur on exam to indicate worsening of valvulopathy but will repeat echo as above. Continue monitoring on telemetry for evidence of ventricular ectopy or other arrhythmias. (4) Hyperthyroidism: Has a history of methimazole use which he was actually declining. Will repeat TSH with free T4 at this time. (5) History of tobacco abuse: Unclear if patient is still smoking at this time. (6) Chronic systolic heart failure: Although he has coarse crackles in his lungs, he declines symptoms consistent with heart failure syndrome. Patient is currently refusing Lasix. I do not think he is in an exacerbation at this time, however do strongly recommend Lasix use. The patient is considering this and would defer this decision to later this afternoon. (7) Hypertension: Elevated blood pressure. With history of systolic dysfunction, Entresto would likely be the ideal agent however, this may be difficult for the patient to obtain. We will start with low-dose LOIS inhibitor and continue the conversation with cardiology. (8) Paranoid schizophrenia: Chronic, recent hallucinations and paranoid delusions regarding nightmares things seen on TV. (9) Noncompliance: Known history of chronic noncompliance of medication for various different reasons. (10) DVT prophylaxis: Lovenox Full code Disposition-uncertain at this time Chelsea Mosley DO [facility] Hospitalist History of Present Illness Chief Complaint: chest pain Primary Care Provider: NO PCP 69-year-old man with a history of CAD presents with acute chest pain. The patient is well-known to our service and he has a history of noncompliance with medication secondary to paranoid schizophrenia with delusions. He is not okay with taking aspirin because it says he says it scares him, he declines Lasix because he does not like running to the bathroom, and he declines nitroglycerin because he says it changes you as a person. The chest pain began early this morning and woke him up from sleep. He was recently hospitalized 3 weeks ago and reports feeling well since that time. The prior hospitalization was for acute on chronic systolic CHF. There seems to be no other associated symptoms to the episode of pain last night but it has lasted through till this morning. He did receive fentanyl in the ER and he states it helped his pain 90% of the way. He denies any other fevers or chills or shortness of breath at this time. He denies any weight gain or swelling. He does report eating foods that include SpaghettiOs and other processed foods he has to microwave. He states his refrigerator is stopped by a community service effort. He reports tolerating p.o. and eating well recently. He has not been outside due to the cold weather, and reports staying active in his apartment recently. Allergies Allergy/AdvReac Type Severity Reaction Status Date / Time horse dander Allergy Unknown HORSE HAIR Verified 11/10/19 06:10 tetanus toxoid, adsorbed Allergy Unknown Unknown Verified 11/10/19 06:10 Home Medications Home Medications Medication Instructions Recorded Confirmed Type aspirin [Ecotrin Low Strength] 81 mg PO QAM #30 tab 07/16/19 11/10/19 Rx nitroglycerin [Nitrostat] 0.4 mg SUBLINGUAL PRN PRN #30 tab 07/16/19 11/10/19 Rx prasugrel [Effient] 10 mg PO QAM #30 tab 07/16/19 11/10/19 Rx furosemide [Lasix] 40 mg PO BID #60 tab 09/25/19 11/10/19 Rx tramadol 50 mg PO Q12H PRN #5 tab 10/23/19 11/10/19 Rx atorvastatin [Lipitor] 80 mg PO HS 11/10/19 11/10/19 History metoprolol tartrate 25 mg PO BID 11/10/19 11/10/19 History Past Med/Surg History Medical History CAD (coronary artery disease) CHF exacerbation (Acute) Cholecystitis, acute History of DVT (deep vein thrombosis) History of pancreatitis History of testicular cancer History of tobacco abuse Homelessness HTN (hypertension) (Chronic) "declines to take medication" Hypertension Hyperthyroidism Lymphedema of right lower extremity Pleural effusion Schizophrenia STEMI (ST elevation myocardial infarction) Surgical History Hx of heart artery stent Status post cardiac catheterization Family History Other Unknown family medical history Social History Preferred Language: Occitan Communication Ability: Effective Paid Search Specialist Required: No Beliefs That Will Affect Care: None Current Living Situation: Alone Current Living Situation Comment: apartment Other Information That Helps Us Care for You: No Feels Safe at Home: Yes Safety Concerns: Feels Safe At This Time Smoking Status: Former smoker Number of Years Since Quit: 10 ; Second Hand Exposure: No ; Hx Alcohol Use: Yes Alcohol type: hard liquor Hx Substance Use: No Review of Systems Review of Systems: All systems reviewed & are unremarkable except as noted in HPI & below Of note, it is difficult to get an accurate and full history from the patient as he does not always answer questions directly and goes off on multiple tangents with difficulty redirecting him. It is important to note that per the ER record he has been hitting himself to try and help the chest pain. He denies any suicidal ideations or homicidal ideations at this time and denies hitting himself to me. It appears with what he is saying that this is not the way he consistently manages his pain. Physical Exam Physical Exam: CONSTITUTIONAL: WNWD, vitals as above, generally well- appearing EYES: EOMMI, PERRL, normal conjunctivae, no scleral icterus ENT: external ear and nose normal, oropharynx clear, mucous membranes are moist. RESPIRATORY: Normal respiratory effort, coarse crackles at the bases bilaterally, no rales or wheezes and otherwise moving air well. CARDIOVASCULAR: regular rate and rhythm, S1 and 2 heard without murmurs, gallops or rubs, no JVD, no peripheral edema CHEST: inspection of chest was normal GASTROINTESTINAL: Muscular abdomen and patient was tensing as I examined him but not out of pain. It appears he was unable to follow instruction to relax his abdominal muscles. Otherwise nondistended and nontender without guarding. MUSCULOSKELETAL: strength 5/5 throughout, head is normocephalic and atraumatic SKIN: warm and dry (patient reports resolution of sacral wound but would not allow examination of this area). Chronic lower extremity changes on the right including scaly hard skin with a chronic swollen appearance and erythema. No evidence of wounds or skin breakdown. NEUROLOGIC: CN 2-12 grossly intact, no sensory deficit, normal cognition, n ormal speech, no tremor, no gross focal neuro deficit PSYCHIATRIC: alert and oriented, cooperative. Results & Data Vital Signs (Past 12 Hours) Vital Signs Temp Pulse Pulse Resp BP BP Pulse Ox 11/10/19 06:14 97 H 24 137/86 99 11/10/19 05:41 36.4 C L 100 H 20 144/111 H 97 Laboratory Results Short CBC 11/10/19 Range/Units 05:59 WBC 8.69 (4.8-10.8) K/uL Hgb 10.8 L (14.0-18.0) g/dL Hct 35.8 L (42-52) % Plt Count 198 (130-400) K/uL BMP 11/10/19 05:59 Sodium 141 Potassium 3.6 Chloride 113 H Carbon Dioxide 22 BUN 18 Creatinine 0.98 Glucose 88 Calcium 9.2 Cardiac Enzymes 11/10/19 Range/Units 05:59 Troponin I 0.057 H* (0-0.045) ng/ml Liver Function 11/10/19 Range/Units 05:59 Total Bilirubin 0.7 (0.2-1) mg/dl AST 18 (15-37) U/L ALT 17 (12-78) U/L Alkaline Phosphatase 132 H (45-117) U/L Albumin 3.0 L (3.4-5.0) gm/dl Diagnostic Findings XR chest 1V portable FINDINGS: There is no pneumothorax. Small right and trace left pleural effusions are noted. Cardiomegaly is unchanged. Pulmonary edema has slightly improved since exam of October 18, 2019. Bibasilar opacities persist. IMPRESSION: 1. Mild interstitial pulmonary edema, slightly improved since prior exam October 18, 2019. 2. Persistent bibasilar opacities which may reflect pulmonary edema, atelectasis or consolidation. 3. Small right and trace left pleural effusions. Medications Administered Fentanyl Code Status & VTE Plan Code Status Full Code
[2019-11-10] MEDS ORDERED: ONDANSETRON INJ 2 MG/ML 2 ML VIAL IV PRN ×2 (09:24→17:44)
[2019-11-10] MEDS ORDERED: ACETAMINOPHEN 325 MG TAB PO PRN (09:24)
[2019-11-10] MEDS ORDERED: NITROGLYCERIN SL 0.4 MG/TAB TAB SL PRN (09:24)
[2019-11-10] MEDS: METOPROLOL TARTRATE 25 MG TAB PO SCH ×2 (10:12→20:50)
[2019-11-10] MEDS: MoRPHine SULFATE 2 MG/ML CARP IV PRN ×2 (10:12→16:46)
[2019-11-10] MEDS: ASPIRIN 81 MG ECTAB PO SCH (10:12)
[2019-11-10] MEDS: PRASugrel TAB 10 MG TAB PO SCH (10:12)
[2019-11-10] MEDS: FUROSEMIDE 40 MG TAB PO SCH (10:12)
[2019-11-10] MEDS ORDERED: lisinopriL 5 MG TAB PO ONE (10:39)
[2019-11-10 11:42] LABS: Thyroid Stimulating Hormone 0.193 uIu/ml (0.300-4.500)
[2019-11-10 11:55] LABS: T4 Free Thyroxine 1.29 ng/dl (0.8-1.6)
[2019-11-10] MEDS: TRAMADOL HCL 50 MG TABLET PO PRN (13:11)
[2019-11-10] MEDS ORDERED: VANCOMYCIN HCL 1,500 MG in SODIUM CHLORIDE 0.9% 500 ML IV STA (13:55)
[2019-11-10] MEDS ORDERED: cefTRIAXone SODIUM 2,000 MG in DEXTROSE 5% 50 ML IV SCH (14:00)
[2019-11-10] MEDS ORDERED: VANCOMYCIN CONSULT ACTIVE PRN (14:15)
--- NOTE | 2019-11-10 15:29 | Pharmacy Report ---
Pharmacy Abx Initial Consult - Date of Service November 10, 2019 - Pharmacy Dosing Scope Date of Consult: 11/10 Consultation requested by: Dr. Mosley Pharmacy is consulted to initiate vancomycin IV/PO dosing therapy, order appropriate labs and adjust drug dose/frequency. - Subjective The patient is a 69 year old M admitted on 11/10/19 13:55. - Objective Height: 5 ft 8 in Weight: 65 kg Vital Signs (Past 12hrs): Vital Signs Temp Pulse Pulse Resp BP BP Pulse Ox 11/10/19 15:19 36.7 C 80 20 121/76 96 11/10/19 11:57 93 H 11/10/19 09:24 36.6 C 98 H 22 150/92 H 93 11/10/19 08:00 97 H 18 134/97 97 11/10/19 06:14 97 H 24 137/86 99 11/10/19 05:41 36.4 C L 100 H 20 144/111 H 97 Lab Results (24hrs): Laboratory Tests (24 Hours) 11/10/19 11/10/19 05:59 05:59 WBC 8.69 Neut # (Auto) 7.53 H Creatinine 0.98 Est Cr Clr Drug Dosing 67.2 Micro Results: 11/10/19 14:17 Aerobic Blood Culture - Pending Blood Anaerobic Blood Culture - Pending 11/10/19 14:22 Aerobic Blood Culture - Pending Blood Anaerobic Blood Culture - Pending - Risk Factors for Resistance * Hospitalization for 48 hours or more within the past 90 days - Assessment & Plan Assessment 69 year old male admitted with acute chest pain. Echo concerning for endocarditis. Pharmacy consulted for vancomycin dosing. Blood cultures x 2 are pending Plan Vancomycin IV * Received loading dose of vancomycin 1500 mg (~23 mg/kg) * Will start maintenance dose of vancomycin 1000 mg(~15 mg/kg) iv q 12 hrs to achieve estimated trough ~20 mcg/ml (goal for endocarditis) * Estimated kinetics: t1/2~12 hrs, ke~0.06 hr-1, CrCl ~67 ml/min * Will plan to obtain a trough prior to the 4th maintenance dose or sooner if renal function changes Pharmacy will continue to follow and will adjust dose/frequency as necessary. Thank you.
[2019-11-10] MEDS ORDERED: FUROSEMIDE 40 MG in SYRINGE 0 ML IV ONE (17:32)
--- NOTE | 2019-11-10 18:16 | Cardiology Consultation ---
Date of Consultation November 10, 2019 Assessment & Plan (1) Chronic systolic CHF (congestive heart failure): (2) CAD (coronary artery disease): (3) Hypertension: (4) Schizophrenia: (5) Chest pain: (6) Noncompliance: (7) Paroxysmal atrial fibrillation: (8) Mitral regurgitation: ASSESSMENT/PLAN: 1. Chest pain: His chest pain has been constant and his troponins are not significantly elevated. In fact, second troponin level was within normal limits. His troponins are chronically elevated at a low level. This does not appear to be acute coronary syndrome. No urgent indication for cardiac catheterization. 2. Chronic systolic CHF: He appears mildly hypervolemic. Recommend Lasix. Can use intravenous Lasix if he accepts Lasix however he has already refuse that by nursing staff report. Low-sodium diet. Strict I&Os. Daily weights. Diuretic was encouraged during our discussion. Unfortunately, he has been noncompliant as an outpatient. 3. Ischemic cardiomyopathy: His right and left ventricular systolic function is severely reduced based on today's echo. We discussed potential evaluation such as cardiac catheterization given his prior catheterization findings, but he does not wish to undergo cardiac catheterization. Further PCI would not be without its risk given the fact that he is not compliant with dual anti-platelet therapy. He wishes for medical therapy only, but then has been noncompliant with medical therapy. Recommend metoprolol succinate. Recommend LOIS-inhibitor such as lisinopril 5 mg daily. Entresto not recommended due to cost and trying to improve compliance by choosing once daily medications. If LV systolic function is not improved over time, he can discuss potential for ICD for primary prevention. He wishes to remain full code, stating that he plans on living to 89 years of age. 4. CAD s/p Cx/OM PCI: Recommend aspirin 81 mg daily. Recommend dual anti- platelet therapy for at least 1 year given NH in May but given stent was bare metal, would recommend at least aspirin 81 mg daily indefinitely at this point. Recommend continuation of high-intensity statin therapy and beta-polo. 5. Mitral and tricuspid regurgitation: May improve with diuresis. He prefers conservative management only. 6. Concern for endocarditis: Vegetation reported on echo, involving the tricuspid valve. Clinically, he has no leukocytosis, fever, chills, or other symptoms to suggest endocarditis. He does have chronic valvular insufficie ncies. On the parasternal view, tricuspid valve did appear abnormal however this was not well seen on other views. Recommend checking blood cultures to further evaluate. Intravenous antibiotics had already been started by primary service and they consulted ID. 7. Hypertension: Blood pressure has been normotensive to mildly hypertensive. Treatment as above. 8. Paroxysmal atrial fibrillation: Continue beta-polo. He is not on anticoagulation and with his noncompliance, anticoagulation would be difficult. 9. Noncompliance: Well documented. Importance of taking his medications disc ussed with him. 10. Schizophrenia: As per Psychiatry and primary service. 11. Disposition: He identifies Dr. Carter as his extracorporeal technician. He has also been followed by Dr. Jansen during prior hospitalizations. Plan of care discussed with Dr. Mosley of the primary hospitalist service. Thank you for allowing me to participate in the care of your patient. Please call for any other questions or concerns. Sincerely, Enrique Lechuga M.D. History of Present Illness Reason for Consultation: CAD and Chest pain Requesting Physician: Dr. Mosley Attending Physician: Chelsea Mosley, DO History of Present Illness Mr. Masterson is a pleasant 69-year-old gentleman with a history significant for CAD with history of STEMI and PCI of OM in May of 2019, occluded RCA, ischemic cardiomyopathy, mitral regurgitation, paroxysmal atrial fibrillation, and systolic CHF. He also has paranoid schizophrenia and medication noncompliance with a history of being homeless. He was hospitalized on 06/15/2019 for acute NH and underwent PCI of OM by Dr. Jansen and discharged on 07/16/2019. During his hospitalization, he had paroxysmal atrial fibrillation and was briefly treated with amiodarone. During that hospitalization, he did refuse medications at times. He was seen by palliative care and also psychiatry. He was then rehospitalized in August of 2019 with acute CHF, being discharged approximately 2 weeks later. He was rehospitalized on 10/14/2019, being discharged on 10/23/2019 with reported CHF. He had been homeless in the past but is currently living in an apartment. He admits that he does not take medications. He states that he is unable to obtain medications. He has not taken any medications since discharge. He states that he maintains a low-sodium diet and that overall his edema has improved. He has had dyspnea with exertion however since his NH in May and sometimes can experience shortness of breath at rest. He denies orthopnea however. He denies syncope but does have occasional near-syncope. This morning at approximately 12:30 a.m., he woke up at around 1:00 a.m., he developed left-sided chest pain that radiated to his neck and left shoulder. It persisted for 2 or 3 hours, prompting him to call 911. The pain has persisted without resolution, however the pain is improved currently, only mild during our discussion. He has refused aspirin Lasix as per nursing staff. We discussed this and he states that he will not take aspirin because he believes aspirin covers things up. He states that he will consider taking aspirin in the next 2 weeks, but not now, despite the fact that we discussed that aspirin is very important given his prior stent placement. He states that he has been waiting on nursing staff to bring Lasix, however nursing staff states that he refused it. He was quick to say that he does not want to undergo surgical procedures in prefers medical management but then discussed the fact that he will not take statin or aspirin therapy and has no way to obtain medications as an outpatient. He states that he is department is a wonderful place but that he does not trust his apartment. He says lots of people in his apartment, specifically the bedroom in the bathroom. For this reason, he avoids the bedroom and sleeps on his couch. He does use the restroom, but only because he has no choice he said. He lives alone. He denies melena, hematochezia, hematuria, or other bleeding. He states that he has had chronic issues with his right leg but things have improved. He denied palpitations. Review of systems: As above. Review of systems otherwise negative/unremarkable. Family history: Father at the age of 40 from NH. Social history: Quit smoking 89 years ago. Has done drugs in the past but denies drugs in the past several years. No significant alcohol. He lives alone. He is . No children. He has a brother who lives in [place] but admits that he has not seen or spoken with him since the . He was alone in his hospital room. Allergies Allergy/AdvReac Type Severity Reaction Status Date / Time horse dander Allergy Unknown HORSE HAIR Verified 11/10/19 06:10 tetanus toxoid, adsorbed Allergy Unknown Unknown Verified 11/10/19 06:10 Home Medications Home Medications Medication Instructions Recorded Confirmed Type aspirin [Ecotrin Low Strength] 81 mg PO QAM #30 tab 07/16/19 11/10/19 Rx nitroglycerin [Nitrostat] 0.4 mg SUBLINGUAL PRN PRN #30 tab 07/16/19 11/10/19 Rx prasugrel [Effient] 10 mg PO QAM #30 tab 07/16/19 11/10/19 Rx furosemide [Lasix] 40 mg PO BID #60 tab 09/25/19 11/10/19 Rx tramadol 50 mg PO Q12H PRN #5 tab 10/23/19 11/10/19 Rx atorvastatin [Lipitor] 80 mg PO HS 11/10/19 11/10/19 History metoprolol tartrate 25 mg PO BID 11/10/19 11/10/19 History Patient History Medical History CAD (coronary artery disease) CHF exacerbation (Acute) Cholecystitis, acute History of DVT (deep vein thrombosis) History of pancreatitis History of testicular cancer History of tobacco abuse Homelessness HTN (hypertension) (Chronic) "declines to take medication" Hypertension Hyperthyroidism Lymphedema of right lower extremity Pleural effusion Schizophrenia STEMI (ST elevation myocardial infarction) Surgical History Hx of heart artery stent Status post cardiac catheterization Family History Other Unknown family medical history Social History Preferred Language: Serbian Communication Ability: Effective Director [employer] Required: No Beliefs That Will Affect Care: None Current Living Situation: Alone Current Living Situation Comment: apartment Other Information That Helps Us Care for You: No Feels Safe at Home: Yes Safety Concerns: Feels Safe At This Time Smoking Status: Former smoker Number of Years Since Quit: 10 ; Second Hand Exposure: No ; Hx Alcohol Use: Yes Alcohol type: hard liquor Hx Substance Use: No Physical Exam Physical Exam: Gen.: No acute distress. Alert. HEENT: Anicteric sclera. Neck: Mild JVD. Hepatic jugular reflux noted. No bruits. Normal carotid upstrokes bilaterally. Cardiac: PMI was nonpalpable. No ventricular heave. Regular. Normal S1-S2. No murmurs, rubs, or gallops. Pulmonary: Bibasilar crackles/rales. Abdomen: Soft, nontender, nondistended, with normoactive bowel sounds. No bruits noted. Extremities: 2+ radial pulses bilaterally. 2+ posterior tibialis pulses bilaterally. Trace to 1+ bilateral lower extremity edema. No cyanosis. Results & Data Vital Signs (Past 12 Hours) Vital Signs Temp Pulse Pulse Resp BP Pulse Ox 11/10/19 15:19 36.7 C 80 20 121/76 96 11/10/19 11:57 93 H 11/10/19 09:24 36.6 C 98 H 22 150/92 H 93 11/10/19 08:00 97 H 18 134/97 97 11/10/19 06:14 97 H 24 137/86 99 Laboratory Results Laboratory Results - last 24 hr 11/10/19 11/10/19 11/10/19 05:59 05:59 05:59 WBC 8.69 RBC 4.30 L Hgb 10.8 L Hct 35.8 L MCV 83.3 MCH 25.1 MCHC 30.2 L RDW Std Deviation 49.2 H RDW Coeff of Dante 16.2 H Plt Count 198 MPV 8.8 Immature Gran % (Auto) 0.2 Neut % (Auto) 86.7 Lymph % (Auto) 7.6 [place] % (Auto) 4.6 Eos % (Auto) 0.8 Baso % (Auto) 0.1 Immature Gran # (Auto) 0.02 Neut # (Auto) 7.53 H Lymph # (Auto) 0.66 L [place] # (Auto) 0.40 Eos # (Auto) 0.07 Baso # (Auto) 0.01 PT INR Sodium 141 Potassium 3.6 Chloride 113 H Carbon Dioxide 22 Anion Gap 7.0 BUN 18 Creatinine 0.98 Est Cr Clr Drug Dosing 67.2 Est GFR ( Amer) 92.1 Est GFR (Non-Af Amer) 79.5 BUN/Creatinine Ratio 18.5 Glucose 88 Calcium 9.2 Total Bilirubin 0.7 AST 18 ALT 17 Alkaline Phosphatase 132 H Troponin I 0.057 H* Total Protein 7.7 Albumin 3.0 L Globulin 4.7 H Albumin/Globulin Ratio 0.6 L Lipase 392 TSH 0.193 L Free T4 1.29 11/10/19 11/10/19 07:36 12:01 WBC RBC Hgb Hct MCV MCH MCHC RDW Std Deviation RDW Coeff of Dante Plt Count MPV Immature Gran % (Auto) Neut % (Auto) Lymph % (Auto) [place] % (Auto) Eos % (Auto) Baso % (Auto) Immature Gran # (Auto) Neut # (Auto) Lymph # (Auto) [place] # (Auto) Eos # (Auto) Baso # (Auto) PT 11.6 INR 1.1 Sodium Potassium Chloride Carbon Dioxide Anion Gap BUN Creatinine Est Cr Clr Drug Dosing Est GFR ( Amer) Est GFR (Non-Af Amer) BUN/Creatinine Ratio Glucose Calcium Total Bilirubin AST ALT Alkaline Phosphatase Troponin I 0.037 Total Protein Albumin Globulin Albumin/Globulin Ratio Lipase TSH Free T4 Diagnostic Findings Telemetry personally reviewed: Sinus rhythm. No arrhythmia. Echo 11/10/2019: Images were personally reviewed: Left ventricular systolic function was severely reduced. EF < 25%. Inferolateral and base to mid inferior wall segments appeared akinetic. Otherwise, global hypokinesis. Mitral regurgitation appeared to be at least moderate. Tricuspid regurgitation appeared moderate to severe. On the parasternal views, the tricuspid valve appeared thickened with possible vegetation, however it was not well seen on other images. ECG personally reviewed: ECG 11/10/2019: Sinus rhythm 100 bpm. Septal infarct. Inferolateral ST abnormality. Cardiac catheterization 06/15/2019: Proximal LAD 20-30%. Diffuse mid LAD up to 60%. Very small D1 subtotally occluded. Mid circumflex 100% and underwent PCI of Cx/OM with 2.75 x 18 mm integrity EMS and post dilated with 3.25 NC balloon. Small to moderate, dominant RCA with mid RCA 100%. RCA partial filling of distal vessel via [id number] collaterals. LVEDP 15. VFib during catheterization, requiring defibrillation. Medications Administered Current Inpatient Medications Acetaminophen (Tylenol) 650 mg PO Q4H PRN PRN Reason: Pain or Fever Stop: 12/10/19 09:23 Aspirin (Ecotrin Ectab) 81 mg PO QAM [facility] Stop: 12/10/19 09:23 Last Admin: 11/10/19 10:12 Dose: Not Given Documented by: Atorvastatin Calcium (Lipitor) 80 mg PO HS [facility] Stop: 12/10/19 20:59 Furosemide (Lasix) 40 mg PO BID17 [facility] Stop: 12/10/19 09:23 Last Admin: 11/10/19 10:12 Dose: Not Given Documented by: Ceftriaxone Sodium 2,000 mg/ (Dextrose) 70 mls @ 100 mls/hr IV Q24H [facility]; Protocol Stop: 12/22/19 13:59 Last Infusion: 11/10/19 15:36 Dose: Infused Documented by: Vancomycin HCl 1,000 mg/ (Sodium Chloride) 270 mls @ 125 mls/hr IV Q12H [facility] Stop: 12/23/19 01:59 Lisinopril (Zestril) 5 mg PO [facility] Stop: 12/11/19 08:59 [facility] ([facility]) [facility] Stop: 12/11/19 08:59 Metoprolol Tartrate (Lopressor) 25 mg PO BID [facility] Stop: 11/10/19 22:00 Last Admin: 11/10/19 10:12 Dose: 25 mg Documented by: Miscellaneous Information (Consult) 1 ea N/A UD PRN PRN Reason: Consult Stop: 12/10/19 14:14 Morphine Sulfate (Morphine Sulfate) 2 mg IV Q30M PRN PRN Reason: Chest Pain Stop: 11/24/19 09:23 Last Admin: 11/10/19 16:46 Dose: 2 mg Documented by: Nitroglycerin (Nitrostat) 0.4 mg UD PRN PRN Reason: Chest Pain Stop: 12/10/19 09:23 Ondansetron HCl (Zofran) 4 mg IV Q8H PRN PRN Reason: nausea Stop: 12/10/19 17:43 Pras[facility]rel (Effient) [facility] [place] Stop: 12/10/19 09:23 Last Admin: 11/10/19 10:12 Dose: 10 mg Documented by: Tramadol HCl (Ultram) 50 mg PO Q6H PRN PRN Reason: Pain Stop: 12/10/19 09:23 Last Admin: 11/10/19 13:11 Dose: 50 mg Documented by: PG Care Time/CCT Total # of Minutes Spent Total Time Spent with Patient: Total time spent is greater than 50% in coordination of care (as documented) at patient's floor/unit and/or counseling patient:
[2019-11-10 18:33] LABS: Troponin I 0.042 ng/ml (0-0.045)
[2019-11-10] MEDS: ATORVASTATIN 40 MG TAB PO SCH (20:51)
[2019-11-10 22:53] LABS: Potassium 3.8 mmol/L (3.5-5.1)
[2019-11-10 22:54] LABS: Magnesium 1.8 mg/dl (1.8-2.4)
[2019-11-11] MEDS: MoRPHine SULFATE 2 MG/ML CARP IV PRN ×2 (00:04→15:53)
[2019-11-11] MEDS: VANCOMYCIN HCL 1,000 MG in SODIUM CHLORIDE 0.9% 250 ML IV SCH ×2 (01:37→14:17)
[2019-11-11] MEDS ORDERED: ACETAMINOPHEN 325 MG TAB PO PRN (07:23)
[2019-11-11] MEDS ORDERED: METOPROLOL TARTRATE 1 MG/ML VIAL IV SCH (08:00)
[2019-11-11 08:37] LABS: Hematocrit (blood only) 31.6 % (42-52); Hemoglobin 9.6 g/dL (14.0-18.0); Mean Corpuscular Hemoglobin 25.1 pg (25-34); Mean Corpuscular Hgb Conc 30.4 g/dL (32-36); Mean Corpuscular Volume 82.7 fL (80-100); Mean Platelet Volume 9.6 fL (7.4-10.4); Platelet Count 194 K/uL (130-400); RDW Coefficient of Variation 16.5 % (11.5-14.5); RDW Standard Deviation 49.9 fL (36.4-46.3); Red Blood Count 3.82 M/uL (4.7-6.1); White Blood Count 6.68 K/uL (4.8-10.8)
[2019-11-11] MEDS: PRASugrel TAB 10 MG TAB PO SCH (08:51)
[2019-11-11 08:53] LABS: BUN Creatinine Ratio 18.1 (10-20); Calcium 8.6 mg/dl (8.5-10.1); Creatinine Clr Calc Pharmacy 54.9 ml/min; Est GFR (African American) 77.5; Est GFR (Non-African American) 66.9; Potassium 3.6 mmol/L (3.5-5.1)
[2019-11-11] MEDS: lisinopriL 5 MG TAB PO SCH (08:53)
[2019-11-11] MEDS: ASPIRIN 81 MG ECTAB PO SCH (08:54)
[2019-11-11] MEDS ORDERED: METOPROLOL SUCC 25MG EXT REL TAB PO SCH (09:00)
[2019-11-11] MEDS ORDERED: lisinopriL 5 MG TAB PO SCH (09:00)
--- NOTE | 2019-11-11 09:17 | Cardiology Progress Note ---
Date of Service November 11, 2019 Assessment & Plan (1) Chronic systolic CHF (congestive heart failure): (2) CAD (coronary artery disease): (3) Hypertension: (4) Schizophrenia: (5) Chest pain: (6) Noncompliance: (7) Paroxysmal atrial fibrillation: (8) Mitral regurgitation: ASSESSMENT/PLAN: 1. Chest pain: Resolved. Elevation in his cardiac biomarkers is not suggestive of significant ischemic event despite several hours of severe chest pain. Additionally, he is not a good candidate for additional interventions due to his known noncompliance. I do not think we will pursue this further. 2. Chronic systolic CHF: He appears to have common to except Lasix as a medication. He is doing well on the medication. Symptomatic Nimo improved. Renal function stable. Continue current dosing. 3. Ischemic cardiomyopathy: He has been switched to metoprolol succinate. He is on lisinopril. Blood pressure appears good. The etiology of his significant decline in LV function is unclear. Possibly ischemic. However, given his mental health issues and noncompliance, I think our options for aggressive intervention may be limited. No continue his current therapy and as time goes on may have an opportunity to intensify his medical regimen. 4. CAD s/p Cx/OM PCI: Continue high-dose atorvastatin, beta-polo and prasugrel. The patient has stopped his aspirin as he does not want to mask what is really wrong with him. He is confident that during this admission without taking aspirin we will find out what his real problem happens to be. 5. Mitral and tricuspid regurgitation: Severe. Likely compromises his cardiac function and produces additional symptoms. Will continue with diuretics. 6. Concern for endocarditis: Blood cultures negative so far. On empiric therapy. 7. Hypertension: Normal blood pressure this morning. 8. Paroxysmal atrial fibrillation: The patient transitioned back to atrial fibrillation this morning. He has had paroxysms in the past some episodes with high heart rates. I will intensify his beta-polo therapy. We will need to discuss systemic anticoagulation. He was taking anticoagulants previously in would be a good candidate for a novel agent along with continued prasugrel. In that setting we could open it aspirin. 9. Noncompliance: Well documented. Importance of taking his medications discussed with him. 10. Schizophrenia: As per Psychiatry and primary service. Subjective This morning the patient claims to be feeling better. He has some difficulty characterizing this statement. He states that he has not had any recurrent chest pain. He has some very mild discomfort in the precordium if he presses on his chest. However, the symptoms which prompted his admission seem to have resolved. He states that the swelling in his right leg is also significantly improved. He did not report breathing trouble at this point. He had some interested in ambulating around the garcia today and I encouraged this. Review of Systems Review of Systems: Per HPI Physical Exam Physical Exam: The patient is alert and oriented. Mood and affect appeared normal. He answered all questions appropriately. He did report some paranoid delusions. HEENT: Pupils are equal and reactive to light and accommodation. Extraocular movements are intact. The sclerae are anicteric. Neuro: Cranial nerves intact Neck: Patient's neck is supple. He has palpable carotid pulses bilaterally without bruits on auscultation. There is no evidence of jugular venous distention. The thyroid is not enlarged. Lungs: Normal respiratory effort. Crackles primarily in the left lung base. Cardiac: Heart demonstrates an irregular rate and rhythm. Normal S1 and S2. Soft holosystolic murmur. Pulses: The patient has palpable radial pulses bilaterally that are equal in intensity Extremities: The right lower extremity has some mild edema. There is significant trophic changes in the right lower extremity. Excoriations in the left lower extremity.. Skin: I did not appreciate any rashes on examination today. Results & Data Vital Signs (Past 12 Hours) Vital Signs Temp Pulse Pulse Resp BP Pulse Ox 11/11/19 07:08 36.7 C 97 H 18 131/84 93 11/11/19 06:41 89 143/94 H 11/11/19 05:22 123 H 11/11/19 04:13 36.3 C L 107 H 20 124/84 99 11/11/19 00:02 84 123/86 11/10/19 22:48 36.5 C 102 H 20 130/91 97 Laboratory Results Abnormal Lab Results 11/10/19 11/10/19 11/10/19 05:59 12:01 18:01 WBC RBC Hgb Hct MCV MCH MCHC RDW Std Deviation RDW Coeff of Dante Plt Count MPV Sodium Potassium 3.8 Chloride Carbon Dioxide Anion Gap BUN Creatinine Est Cr Clr Drug Dosing Est GFR ( Amer) Est GFR (Non-Af Amer) BUN/Creatinine Ratio Glucose Calcium Magnesium 1.8 Troponin I 0.037 0.042 Triglycerides Cholesterol LDL Cholesterol, Calc VLDL Cholesterol, Calc HDL Cholesterol Cholesterol/HDL Ratio TSH 0.193 L Free T4 1.29 11/11/19 11/11/19 08:15 08:15 WBC 6.68 RBC 3.82 L Hgb 9.6 L Hct 31.6 L MCV 82.7 MCH 25.1 MCHC 30.4 L RDW Std Deviation 49.9 H RDW Coeff of Dante 16.5 H Plt Count 194 MPV 9.6 Sodium 142 Potassium 3.6 Chloride 112 H Carbon Dioxide 23 Anion Gap 7.0 BUN 21 H Creatinine 1.13 Est Cr Clr Drug Dosing 54.9 Est GFR ( Amer) 77.5 Est GFR (Non-Af Amer) 66.9 BUN/Creatinine Ratio 18.1 Glucose 92 Calcium 8.6 Magnesium Troponin I Triglycerides 70 Cholesterol 152 LDL Cholesterol, Calc 88 VLDL Cholesterol, Calc 14 HDL Cholesterol 50 Cholesterol/HDL Ratio 3 TSH Free T4 Diagnostic Findings Echocardiogram yesterday demonstrated severely reduced LV systolic function and severe valvular disease including mitral and tricuspid regurgitation. Possible lesion on the tricuspid valve. ECG Additional Comments: EKG this morning demonstrated atrial fibrillation PG Care Time/CCT Total # of Minutes Spent Total Time Spent with Patient: Total time spent is greater than 50% in coordination of care (as documented) at patient's floor/unit and/or counseling patient:
[2019-11-11] MEDS ORDERED: METOPROLOL TARTRATE 1 MG/ML VIAL IV PRN (09:21)
--- NOTE | 2019-11-11 09:37 | Infectious Disease Consult ---
Date of Consultation November 11, 2019 Assessment & Plan (1) Vegetation of heart valve: continue abx, follow culture results. cardio following. History of Present Illness Attending Physician: Arnold Gaspar MD pt admitted with cp, no sob. none on my exam. eating breakfast. per nursing having episodes of tacycardia. afebrile. echo done and mass on TV with TR noted. has h/o schizophrenia and non complaince with meds. he denies any cp, sob, abd pain, n/v/d. he was placed on ctx and vanco and is tolerating well. blood cultures done and results are pending. wbc 8.6, creat 0.9 CXR negative. Allergies Allergy/AdvReac Type Severity Reaction Status Date / Time horse dander Allergy Unknown HORSE HAIR Verified 11/10/19 06:10 tetanus toxoid, adsorbed Allergy Unknown Unknown Verified 11/10/19 06:10 Home Medications Home Medications Medication Instructions Recorded Confirmed Type aspirin [Ecotrin Low Strength] 81 mg PO QAM #30 tab 07/16/19 11/10/19 Rx nitroglycerin [Nitrostat] 0.4 mg SUBLINGUAL PRN PRN #30 tab 07/16/19 11/10/19 Rx prasugrel [Effient] 10 mg PO QAM #30 tab 07/16/19 11/10/19 Rx furosemide [Lasix] 40 mg PO BID #60 tab 09/25/19 11/10/19 Rx tramadol 50 mg PO Q12H PRN #5 tab 10/23/19 11/10/19 Rx atorvastatin [Lipitor] 80 mg PO HS 11/10/19 11/10/19 History metoprolol tartrate 25 mg PO BID 11/10/19 11/10/19 History Patient History Medical History CAD (coronary artery disease) Cholecystitis, acute Chronic systolic CHF (congestive heart failure) History of DVT (deep vein thrombosis) History of pancreatitis History of testicular cancer History of tobacco abuse Homelessness HTN (hypertension) (Chronic) "declines to take medication" Hypertension Hyperthyroidism Ischemic cardiomyopathy Lymphedema of right lower extremity Mitral regurgitation Pleural effusion Schizophrenia STEMI (ST elevation myocardial infarction) Tricuspid regurgitation Surgical History Hx of heart artery stent Status post cardiac catheterization Family History Other Unknown family medical history Social History Preferred Language: Lao Communication Ability: Effective Reporting Process Consultant Required: No Beliefs That Will Affect Care: None Current Living Situation: Alone Current Living Situation Comment: apartment Other Information That Helps Us Care for You: No Feels Safe at Home: Yes Safety Concerns: Feels Safe At This Time Smoking Status: Former smoker Number of Years Since Quit: 10 ; Second Hand Exposure: No ; Hx Alcohol Use: Yes Alcohol type: hard liquor Hx Substance Use: No Review of Systems Review of Systems: All systems reviewed & are unremarkable except as noted in HPI & below Physical Exam Constitutional: WD/WN, vitals as above Eyes: PERRL, conjunctivae normal, anicteric sclerae ENMT: external ear and nose normal, oropharynx normal Neck: normal visual inspection Respiratory: normal respiratory effort, lungs clear to auscultation Cardiovascular: RRR, no murmur, no edema Gastrointestinal (Abdomen): normal bowel sounds, soft, nontender, no hepatosplenomegaly Musculoskeletal: no cyanosis or clubbing, extremities motor strength 5/5 Skin: no rashes, warm and dry Psychiatric: A+Ox3, euthymic affect Results & Data Vital Signs (Past 12 Hours) Vital Signs Temp Pulse Pulse Resp BP Pulse Ox 11/11/19 07:08 36.7 C 97 H 18 131/84 93 11/11/19 06:41 89 143/94 H 11/11/19 05:22 123 H 11/11/19 04:13 36.3 C L 107 H 20 124/84 99 11/11/19 00:02 84 123/86 11/10/19 22:48 36.5 C 102 H 20 130/91 97 PG Care Time/CCT Total # of Minutes Spent Total Time Spent with Patient: Total time spent is greater than 50% in coordination of care (as documented) at patient's floor/unit and/or counseling patient:
[2019-11-11] MEDS: cefTRIAXone SODIUM 2,000 MG in DEXTROSE 5% 50 ML IV SCH ×2 (09:42→20:05)
--- NOTE | 2019-11-11 12:49 | Palliative Care Consultation ---
Date of Consultation November 11, 2019 Assessment & Plan (1) Goals of care, counseling/discussion: -69 year old male patient with PMH schizophrenia, hypertension, DVT, lymphedema in the right lower extremity, testicular cancer, tobacco use, pancreatitis, acute kidney injury, and cellulitis, presented to the hospital a few days ago with c/o chest pain. Patient just left hospital on 10/23 when he was here with abdominal pain. Patient has frequent readmissions to the hospital, usually with cardiac related issues including cardiac arrest, decompensated heart failure, and PR. Patient is homeless and is a paranoid schizophrenic. He does not always take his medications as ordered. He believes that Lasix gives him diarrhea "messes things up," he also does not like nitroglycerin or aspirin. Upon admission, patient has been agreeing to take his Lasix and is diuresing, his chest pain is improved. Echo reveals EF 15%, severe MR. No cardiac cath planned as patient is noncompliant with antiplatelet therapy. He may need an ICD. He follows with cardiology who is consulted here in hospital. Patient is a full code. Palliative care has been involved in the past and is reconsulted to discuss goals of care. -Met with patient this morning in room 278-2. He is sitting on edge of bed washing himself up. He is alert and oriented x4. His thought process is actually quite clear today and he seems to be at his baseline. -Patient stated that he has been taking his lasix while in hospital and feels much better. He feels that his legs are less swollen and his breathing is improving. He does not quite feel 100% yet. -Patient still maintains that he wants to be a full code. However, he does state that he would likely not want to have any type of invasive procedures or surgery if it came to that. Patient stated, "[employer] do not believe in surgery." I asked if he identified as [employer], he said, "No, but that's what they say." -Patient is not interested in discussing further goals of care. He has no family, no decision maker if he is unable. Case management follows him closely and knows this patient well. We discussed his severely weakened heart and what that puts him at risk for, and he stated he wants to proceed with full care and wants to return to the hospital when needed. Patient said he wants to leave the hospital JANET. -Palliative care will sign off at this time, but please re-involve us if there are any further needs. (2) Chronic systolic CHF (congestive heart failure): (3) Ischemic cardiomyopathy: (4) Schizophrenia: Supervising Physician Co-Signing Physician Notes Chart reviewed, patient seen and examined. Collaborated with IAIN Bocanegra. Patient is known to our service from prior hospitalizations, patient also known to me from a recent stay at [facility]. PE: Patient awake and alert, appears at his prior baseline. HEENT: EOMI, hearing and within normal limits. Soft ,hoarse voice-chronic Respiratory: Unlabored CV: Regular rate, lower extremity edema right greater than left-chronic Abdomen: Soft, nontender Neuro: No focal deficits Agree with above note, assessment and plan as per IAIN Bocanegra-patient will remain a full code as per his wishes. We will follow peripherally, please reconsult if condition changes. History of Present Illness Reason for Consultation: Goals of care Requesting Physician: Dr. Mosley Attending Physician: Arnold Gaspar MD History of Present Illness This 69 year old male patient with PMH schizophrenia, hypertension, DVT, lymphedema in the right lower extremity, testicular cancer, tobacco use, pancreatitis, acute kidney injury, and cellulitis, presented to the hospital a few days ago with c/o chest pain. Patient just left hospital on 10/23 when he was here with abdominal pain. Patient has frequent readmissions to the hospital, usually with cardiac related issues including cardiac arrest, decompensated heart failure, and PR. Patient is homeless and is a paranoid schizophrenic. He does not always take his medications as ordered. He believes that Lasix gives him diarrhea "messes things up," he also does not like nitroglycerin or aspirin. Upon admission, patient has been agreeing to take his Lasix and is diuresing, his chest pain is improved. Echo reveals EF 15%, severe MR. No cardiac cath planned as patient is noncompliant with antiplatelet therapy. He may need an ICD. He follows with cardiology who is consulted here in hospital. Patient is a full code. Palliative care has been involved in the past and is reconsulted to discuss goals of care. Thank you kindly for this consult. Palliative care team will follow as needed. Allergies Allergy/AdvReac Type Severity Reaction Status Date / Time horse dander Allergy Unknown HORSE HAIR Verified 11/10/19 06:10 tetanus toxoid, adsorbed Allergy Unknown Unknown Verified 11/10/19 06:10 Home Medications Home Medications Medication Instructions Recorded Confirmed Type aspirin [Ecotrin Low Strength] 81 mg PO QAM #30 tab 07/16/19 11/10/19 Rx nitroglycerin [Nitrostat] 0.4 mg SUBLINGUAL PRN PRN #30 tab 07/16/19 11/10/19 Rx prasugrel [Effient] 10 mg PO QAM #30 tab 07/16/19 11/10/19 Rx furosemide [Lasix] 40 mg PO BID #60 tab 09/25/19 11/10/19 Rx tramadol 50 mg PO Q12H PRN #5 tab 10/23/19 11/10/19 Rx atorvastatin [Lipitor] 80 mg PO HS 11/10/19 11/10/19 History metoprolol tartrate 25 mg PO BID 11/10/19 11/10/19 History Patient History Medical History CAD (coronary artery disease) Cholecystitis, acute Chronic systolic CHF (congestive heart failure) History of DVT (deep vein thrombosis) History of pancreatitis History of testicular cancer History of tobacco abuse Homelessness HTN (hypertension) (Chronic) "declines to take medication" Hypertension Hyperthyroidism Ischemic cardiomyopathy Lymphedema of right lower extremity Mitral regurgitation Pleural effusion Schizophrenia STEMI (ST elevation myocardial infarction) Tricuspid regurgitation Surgical History Hx of heart artery stent Status post cardiac catheterization Family History Other Unknown family medical history Social History Preferred Language: Lithuanian Communication Ability: Effective 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 Beliefs That Will Affect Care: None marital status: Current Living Situation: Alone Current Living Situation Comment: apartment Other Information That Helps Us Care for You: No Feels Safe at Home: Yes Safety Concerns: Feels Safe At This Time Smoking Status: Former smoker Number of Years Since Quit: 10 ; Second Hand Exposure: No ; Hx Alcohol Use: Yes Alcohol type: hard liquor Hx Substance Use: No Review of Systems Review of Systems: Const: + weakness ENMT: No dysphagia Resp: + SOB, + nonproductive cough Cardio: No chest pain, + edema, but improved GI: No abdominal pain, no N/V MS: No musculoskeletal pain Neuro: No confusion Psych: No anxiety, no depression Physical Exam Constitutional: + ill appearing (chronically) ENMT: external ear and nose normal, oropharynx normal Respiratory: no labored breathing Auscultation: + diminished lung sounds Cardiovascular: Rate/Rhythm: regular rate and regular rhythm Extremities: + edema (+1-2 BLE) Neurologic: moves all extremities and awake; not confused Psychiatric: Orientation: alert and oriented x 3 Thought Process: clear/coherent thought process Insight: + limited insight Judgement: + limited judgement Results & Data Vital Signs (Past 12 Hours) Vital Signs Temp Pulse Pulse Resp BP Pulse Ox 11/11/19 07:08 36.7 C 97 H 18 131/84 93 11/11/19 06:41 89 143/94 H 11/11/19 05:22 123 H 11/11/19 04:13 36.3 C L 107 H 20 124/84 99 Time Spent Midlevel 50 minutes with >50% of the time spent at bedside with patient discussing condition and GOC.
[2019-11-11] MEDS: FUROSEMIDE 40 MG TAB PO SCH ×2 (14:17→17:11)
--- NOTE | 2019-11-11 16:27 | Hospitalist Progress Note ---
Date of Service November 11, 2019 Assessment & Plan (1) CAD (coronary artery disease): -Patient had an 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 He has a known chronic occlusion involving the right coronary artery. He was successfully stented in the circumflex vessel in 2019. Of note he also had an complete heart block around that episode as well as severe mitral regurgitation likely related to his acute infarct. Noncompliance in therapy played a role in these complications, and as mentioned he was recently admitted for CHF which has also been an ongoing issue. (2) Elevated troponin: -patient has been known to have chronically elevated troponins -on this 11/10/19 presentation, inital troponin mildly elevated as 0.057 and then normalized to 0.037 and 0.042 -cardiac cath not needed at this time as per cardiology (3) Substernal chest pain: -Patient has reported on and off chest pain and is difficult to assess as being a reliable historian -his known underlying cardiac dysfunction also complicates medical assessment to rule out acute coronary artery syndromes on initial hospitalizations; cardiac cath not needed at this time as per cardiology Rule out Endocarditis -during this cardiac workup, his echocardiogram showed a thickening of the tricuspid valve which was not seen before -during this time and last recent Hospitalization in October 14, 2019 to October 23, 2019; no leukocytosis, fever, chills, or other symptoms to suggest endocarditis. -does have chronic valvular insufficiencies. On the parasternal view, tricuspid valve did appear abnormal however this was not well seen on other views as per cardiology -patient is empirically being treated as if there are endocarditis vegetations, currently on ceftriaxone and vancomycin -awaiting admission blood culture results (4) Chronic systolic heart failure: -continue furosemide 40 mg BID -palliative care consulted as patient has chronically low ejection fraction (5) Hypertension: -blood pressure controlled on 5 mg daily lisinopril, continue (6) Hyperthyroidism: -Has a history of methimazole use which he was actually declining. -low TSH of 0.193 on 11/10/19, normal free T4 1.29 (7) Paranoid schizophrenia: -patient had reported Chronic, recent hallucinations and paranoid delusions regarding nightmares things seen on TV -is cooperative on exam, does not demonstrate harm to self or others (8) Noncompliance: -Known history of chronic noncompliance of medicatio (9) History of tobacco abuse: -no nicotine craving reported (10) DVT prophylaxis: -Lovenox Full code Subjective Patient does not have acute distress. breathing on room air. no fevers. IV antibiotics running. no nausea. no vomiting. no abdominal pain. no dizziness. no lightheadedness Review of Systems Review of Systems: All systems reviewed & are unremarkable except as noted in HPI & below Physical Exam Constitutional: comfortable Eyes: PERRL, conjunctivae normal, anicteric sclerae EOM intact bilaterally ENMT: external ear and nose normal, oropharynx normal Neck: normal visual inspection Respiratory: normal respiratory effort, lungs clear to auscultation Cardiovascular: Rate/Rhythm: regular rate Gastrointestinal (Abdomen): normal bowel sounds, soft, nontender, no hepatosplenomegaly Musculoskeletal: Head/Neck/Chest: normocephalic and head atraumatic Neurologic: PERRL, EOMI, accommodation nl, no face palsy, no dysarthria CN's II-XI intact bilaterally Psychiatric: A+Ox3, euthymic affect Results & Data Vital Signs (Past 12 Hours) Vital Signs Temp Pulse Pulse Resp BP BP Pulse Ox 11/11/19 15:05 36.6 C 90 20 135/92 90 11/11/19 14:15 122/88 11/11/19 07:08 36.7 C 97 H 18 131/84 93 11/11/19 06:41 89 143/94 H 11/11/19 05:22 123 H
[2019-11-11] MEDS: TRAMADOL HCL 50 MG TABLET PO PRN (18:11)
[2019-11-11] MEDS: ATORVASTATIN 40 MG TAB PO SCH (20:08)
[2019-11-11] MEDS: METOPROLOL SUCC 25MG EXT REL TAB PO SCH (20:08)
[2019-11-12] MEDS: VANCOMYCIN HCL 1,000 MG in SODIUM CHLORIDE 0.9% 250 ML IV SCH ×2 (01:44→14:38)
[2019-11-12 06:56] LABS: Basophils # (auto) 0.03 K/uL (0-0.2); Basophils % (auto) 0.5 %; Eosinophils # (auto) 0.16 K/uL (0-0.5); Eosinophils % (auto) 2.8 %; Hematocrit (blood only) 29.3 % (42-52); Hemoglobin 8.9 g/dL (14.0-18.0); Immature Granulocytes # (auto) 0.01 K/uL (0.00-0.02); Immature Granulocytes % (auto) 0.2 %; Lymphocytes # (auto) 0.83 K/uL (1.2-3.4); Lymphocytes % (auto) 14.6 %; Mean Corpuscular Hemoglobin 25.1 pg (25-34); Mean Corpuscular Hgb Conc 30.4 g/dL (32-36); Mean Corpuscular Volume 82.8 fL (80-100); Mean Platelet Volume 9.1 fL (7.4-10.4); Monocytes % (auto) 8.8 %; Neutrophils # (auto) 4.15 K/uL (1.4-6.5); Neutrophils % (auto) 73.1 %; Platelet Count 164 K/uL (130-400); RDW Coefficient of Variation 16.4 % (11.5-14.5); RDW Standard Deviation 50.1 fL (36.4-46.3); Red Blood Count 3.54 M/uL (4.7-6.1); White Blood Count 5.68 K/uL (4.8-10.8)
[2019-11-12 07:32] LABS: Albumin Level 2.3 gm/dl (3.4-5.0); Calcium 8.4 mg/dl (8.5-10.1); Creatinine Clr Calc Pharmacy 59.1 ml/min; Est GFR (African American) 84.7; Est GFR (Non-African American) 73.1; Magnesium 1.9 mg/dl (1.8-2.4); Potassium 3.6 mmol/L (3.5-5.1)
[2019-11-12 07:43] LABS: Albumin Globulin Ratio 0.6 (0.9-2); Bilirubin,Total 0.4 mg/dl (0.2-1); Globulin 3.8 gm/dl (2.5-4.0); Total Protein 6.1 gm/dl (6.4-8.2)
--- NOTE | 2019-11-12 07:48 | Hospitalist Progress Note ---
Date of Service November 12, 2019 Assessment & Plan (1) CAD (coronary artery disease): -Patient had an 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 He has a known chronic occlusion involving the right coronary artery. He was successfully stented in the circumflex vessel in 2019. Of note he also had an complete heart block around that episode as well as severe mitral regurgitation likely related to his acute infarct. Noncompliance in therapy played a role in these complications, and as mentioned he was recently admitted for CHF which has also been an ongoing issue. (2) Elevated troponin: -patient has been known to have chronically elevated troponins -on this 11/10/19 presentation, inital troponin mildly elevated as 0.057 and then normalized to 0.037 and 0.042 -cardiac cath not needed at this time as per cardiology (3) Substernal chest pain: -Patient has reported on and off chest pain and is difficult to assess as being a reliable historian -his known underlying cardiac dysfunction also complicates medical assessment to rule out acute coronary artery syndromes on initial hospitalizations; cardiac cath not needed at this time as per cardiology Rule out Endocarditis -during this cardiac workup, his echocardiogram showed a thickening of the tricuspid valve which was not seen before -during this time and last recent Hospitalization in October 14, 2019 to October 23, 2019; no leukocytosis, fever, chills, or other symptoms to suggest endocarditis. -does have chronic valvular insufficiencies. On the parasternal view, tricuspid valve did appear abnormal however this was not well seen on other views as per cardiology -patient is empirically being treated as if there are endocarditis vegetations, currently on ceftriaxone and vancomycin -11/12/19: Patient having repeat blood cultures as 1 of 2 aerobic bottles of admission blood culture with Gram positive cocci clusters. Patient still does not have fever. continue ceftriaxone and vancomycin for now (4) Chronic systolic heart failure: -continue furosemide 40 mg BID -palliative care consulted as patient has chronically low ejection fraction (5) Hypertension: -blood pressure controlled on 5 mg daily lisinopril, continue (6) Hyperthyroidism: -Has a history of methimazole use which he was actually declining. -low TSH of 0.193 on 11/10/19, normal free T4 1.29 (7) Paranoid schizophrenia: -patient had reported Chronic, recent hallucinations and paranoid delusions regarding nightmares things seen on TV -is cooperative on exam, does not demonstrate harm to self or others (8) Noncompliance: -Known history of chronic noncompliance of medication (9) History of tobacco abuse: -no nicotine craving reported (10) DVT prophylaxis: -Lovenox Full code Subjective Patient having repeat blood cultures as 1 of 2 aerobic bottles of admission blood culture with Gram positive cocci clusters. Patient has not had fevers. no current chest pain. no palpitations. no vomiting. no shortness of breath. breathing on room air. no shortness of breath. awake and alert and cooperative on exam Review of Systems Review of Systems: All systems reviewed & are unremarkable except as noted in HPI & below Physical Exam Constitutional: comfortable Eyes: PERRL, conjunctivae normal, anicteric sclerae EOM intact bilaterally ENMT: external ear and nose normal, oropharynx normal Neck: normal visual inspection Respiratory: normal respiratory effort, lungs clear to auscultation Cardiovascular: Rate/Rhythm: regular rate Gastrointestinal (Abdomen): normal bowel sounds, soft, nontender, no hepatosplenomegaly Musculoskeletal: Head/Neck/Chest: normocephalic and head atraumatic Neurologic: PERRL, EOMI, accommodation nl, no face palsy, no dysarthria CN's II-XI intact bilaterally Psychiatric: A+Ox3, euthymic affect Results & Data Vital Signs (Past 12 Hours) Vital Signs Temp Pulse Pulse Resp BP Pulse Ox 11/12/19 07:29 36.4 C L 84 18 124/86 96 11/12/19 03:18 36.4 C L 75 18 127/91 99 11/11/19 22:53 86 11/11/19 22:22 36.8 C 91 H 19 109/82 97
[2019-11-12] MEDS: METOPROLOL SUCC 25MG EXT REL TAB PO SCH ×2 (08:34→21:08)
[2019-11-12] MEDS: PRASugrel TAB 10 MG TAB PO SCH (08:34)
[2019-11-12] MEDS: ASPIRIN 81 MG ECTAB PO SCH (08:35)
[2019-11-12] MEDS: lisinopriL 5 MG TAB PO SCH (08:35)
[2019-11-12] MEDS: FUROSEMIDE 40 MG TAB PO SCH ×2 (08:35→16:56)
[2019-11-12] MEDS: cefTRIAXone SODIUM 2,000 MG in DEXTROSE 5% 50 ML IV SCH ×2 (08:44→20:01)
--- NOTE | 2019-11-12 09:26 | Infectious Disease Progress Nt ---
Date of Service November 12, 2019 Assessment & Plan (1) Vegetation of heart valve: continue abx, follow culture results, 1 set gpc cluster. will repeat today. will need min 6 weeks IV abx. Blood cultures not yet finalized, will need weekly cbc,cmp, vanco trough (maintain 15-20). I will be away until 11/25/2019, if any additional ID concerns, would suggest transfer. Subjective Pt initial blood cultures now growing gpc in 11/21. he remains on rocephin and vanco, tolerating well. afebrile. wbc 5.8, creat 1. Results & Data Vital Signs (Past 12 Hours) Vital Signs Temp Pulse Pulse Resp BP Pulse Ox 11/12/19 07:29 36.4 C L 84 18 124/86 96 11/12/19 03:18 36.4 C L 75 18 127/91 99 11/11/19 22:53 86 11/11/19 22:22 36.8 C 91 H 19 109/82 97 Laboratory Results Microbiology 11/10/19 14:17 Blood Aerobic Blood Culture - Preliminary Gram positive cocci clusters 11/10/19 14:17 Blood Anaerobic Blood Culture - Preliminary No growth in Anaerobic bottle after 24 hours. 11/10/19 14:22 Blood Aerobic Blood Culture - Preliminary No growth in Aerobic bottle after 24 hours. 11/10/19 14:22 Blood Anaerobic Blood Culture - Preliminary No growth in Anaerobic bottle after 24 hours. PG Care Time/CCT Total # of Minutes Spent Total Time Spent with Patient: Total time spent is greater than 50% in coordination of care (as documented) at patient's floor/unit and/or counseling patient:
[2019-11-12] MEDS: MoRPHine SULFATE 2 MG/ML CARP IV PRN ×2 (11:43→17:48)
[2019-11-12] MEDS ORDERED: CHLORASEPTIC 1.4% SOLN 180 ML BTL MT PRN (12:10)
--- NOTE | 2019-11-12 13:12 | Cardiology Progress Note ---
Date of Service November 12, 2019 Assessment & Plan (1) Chronic systolic CHF (congestive heart failure): (2) CAD (coronary artery disease): (3) Hypertension: (4) Schizophrenia: (5) Chest pain: (6) Noncompliance: (7) Paroxysmal atrial fibrillation: (8) Mitral regurgitation: ASSESSMENT/PLAN: 1. Chest pain: Resolved. Unclear etiology. Not in acute coronary syndrome. No need for additional coronary evaluation. 2. Chronic systolic CHF: Overall doing well. I think he has diuresed adequately. He continues to refuse Lasix at times but seems to have a good diuresis with the medication he takes. 3. Ischemic cardiomyopathy: Continue metoprolol succinate and lisinopril. Bas ed on the degree of LV dysfunction noted on his recent echocardiogram he would qualify for an ICD as primary prevention. However, I do not believe he is a good candidate given his mental health issues and desire to avoid procedures. 4. CAD s/p Cx/OM PCI: Continue high-dose atorvastatin, beta-polo and prasugrel. He should be returned to a daily aspirin if he elects not to take systemic anticoagulation for atrial fibrillation. 5. Mitral and tricuspid regurgitation: Severe. Likely compromises his cardiac function and produces additional symptoms. Will continue with diuretics. 6. Concern for endocarditis: No clinical evidence of endocarditis. 7. Hypertension: Normal blood pressure this morning. 8. Paroxysmal atrial fibrillation: He converted back to normal sinus rhythm over the course of yesterday. He did cycle in now periodically. Whether high ventricular rates associated with atrial fibrillation cause some of his symptoms on the toilet are unclear. I think he is on a adequate dose of beta-polo currently. I did discuss the option of systemic anticoagulation with Xarelto. I think this would be a good option for him. If he is interested I would start Xarelto and continue his prasugrel. If he is not interested then he should return to prasugrel and aspirin. 9. Noncompliance: Well documented. Importance of taking his medications discussed with him. 10. Schizophrenia: As per Psychiatry and primary service. Subjective This morning the patient claims to be feeling well. He ambulated yesterday around 11:00 a.m.. He states that this really screwed up his day. He is unclear why this made him feel poorly for the rest of the day. He plans to walk today at approximately 2:00 p.m.. He did report feeling poorly when defecating yesterday. He stated that bad things were going to happen. In that he was in a bad place. He did not have associated chest pain. He has not had a recurrence of his chest pain since admission. He states that his breathing overall is good although this morning he finds himself taking more and deeper breaths. He is happy with improvement in his right lower extremity edema. Review of Systems Review of Systems: Per HPI Physical Exam Physical Exam: The patient is alert and oriented. Mood and affect appeared normal. He answered all questions appropriately. He did report some paranoid delusions. HEENT: Pupils are equal and reactive to light and accommodation. Extraocular movements are intact. The sclerae are anicteric. Neuro: Cranial nerves intact Neck: Patient's neck is supple. He has palpable carotid pulses bilaterally without bruits on auscultation. There is no evidence of jugular venous distention. The thyroid is not enlarged. Lungs: Normal respiratory effort. Crackles primarily in the left lung base. Cardiac: Heart demonstrates an irregular rate and rhythm. Normal S1 and S2. Soft holosystolic murmur. Pulses: The patient has palpable radial pulses bilaterally that are equal in intensity Extremities: The right lower extremity has some mild edema. There is significant trophic changes in the right lower extremity. Excoriations in the left lower extremity.. Skin: I did not appreciate any rashes on examination today. Results & Data Vital Signs (Past 12 Hours) Vital Signs Temp Pulse Pulse Resp BP BP Pulse Ox 11/12/19 11:02 36.4 C L 71 18 125/85 97 11/12/19 09:57 72 11/12/19 09:05 75 128/92 11/12/19 07:29 36.4 C L 84 18 124/86 96 11/12/19 03:18 36.4 C L 75 18 127/91 99 Laboratory Results Abnormal Lab Results 11/11/19 11/12/19 11/12/19 14:17 06:45 06:45 WBC 5.68 RBC 3.54 L Hgb 8.9 L Hct 29.3 L MCV 82.8 MCH 25.1 MCHC 30.4 L RDW Std Deviation 50.1 H RDW Coeff of Dante 16.4 H Plt Count 164 MPV 9.1 Immature Gran % (Auto) 0.2 Neut % (Auto) 73.1 Lymph % (Auto) 14.6 Routt % (Auto) 8.8 Eos % (Auto) 2.8 Baso % (Auto) 0.5 Immature Gran # (Auto) 0.01 Neut # (Auto) 4.15 Lymph # (Auto) 0.83 L Routt # (Auto) 0.50 Eos # (Auto) 0.16 Baso # (Auto) 0.03 Sodium 142 Potassium 3.6 Chloride 111 H Carbon Dioxide 22 Anion Gap 9.0 BUN 23 H Creatinine 1.05 Est Cr Clr Drug Dosing 59.1 Est GFR ( Amer) 84.7 Est GFR (Non-Af Amer) 73.1 BUN/Creatinine Ratio 22.0 H Glucose 87 Calcium 8.4 L Magnesium 1.9 Total Bilirubin 0.4 AST 14 L ALT 14 Alkaline Phosphatase 111 Total Protein 6.1 L Albumin 2.3 L Globulin 3.8 Albumin/Globulin Ratio 0.6 L Bld Cult Staph aureus PCR Negative Blood Culture MRSA PCR Negative PG Care Time/CCT Total # of Minutes Spent Total Time Spent with Patient: Total time spent is greater than 50% in coordination of care (as documented) at patient's floor/unit and/or counseling patient:
[2019-11-12] MEDS ORDERED: VANCOMYCIN TROUGH ONE (13:30)
[2019-11-12] MEDS: TRAMADOL HCL 50 MG TABLET PO PRN (14:38)
--- NOTE | 2019-11-12 15:10 | Pharmacy Report ---
Pharmacy Abx Dose Progress Nt - Date of Service November 12, 2019 - Pharmacy Dosing Scope The patient WAS receiving the following antimicrobial agents per Pharmacy consult: Vancomycin 1000 mg IV every 12 hours - Objective Vital Signs (Past 12hrs): Vital Signs Temp Pulse Pulse Resp BP BP Pulse Ox 11/12/19 14:57 89 11/12/19 11:02 36.4 C L 71 18 125/85 97 11/12/19 09:57 72 11/12/19 09:05 75 128/92 11/12/19 07:29 36.4 C L 84 18 124/86 96 11/12/19 03:18 36.4 C L 75 18 127/91 99 Lab Results (24hrs): Laboratory Tests (24 Hours) 11/12/19 11/12/19 11/12/19 13:20 06:45 06:45 WBC 5.68 Neut # (Auto) 4.15 Creatinine 1.05 Est Cr Clr Drug Dosing 59.1 Vancomycin Trough 21.9 Micro Results: 11/12/19 08:01 Aerobic Blood Culture - Pending Blood Anaerobic Blood Culture - Pending 11/12/19 07:54 Aerobic Blood Culture - Pending Blood Anaerobic Blood Culture - Pending - Assessment & Plan Assessment 69 year old M receiving Vancomycin for treatment of Endocarditis. Day #3 of antimicrobial therapy. Per ID recommendation, patient requires minimum of 6 weeks of antibiotics. Patient was on Vancomycin 1000 mg IV q12h. Trough was obtained after 3 maintenance doses. Trough is at steady-state. Renal function is stable. Dosing was based on AUC Nomogram. Plan Vancomycin IV * Trough level of 21.9 mcg/mL is supratherapeutic. * Dosing changed to Vancomycin 750 mg IV every 12 hours based on supra- therapeutic level. * Goal trough level for Endocarditis: 18 to 20 mcg/mL * Trough level ordered for: 11/14/19 before dose at 1600. Pharmacy will continue to follow and will adjust dose/frequency as necessary. Thank you.
[2019-11-12] MEDS ORDERED: LORazepam 0.25 MG/0.5 ML VIAL IV PRN (17:37)
[2019-11-12] MEDS: OXYCODONE HCL IR 5 MG TAB (IMMEDIATE RELEASE) PO PRN (19:58)
[2019-11-12] MEDS: ATORVASTATIN 40 MG TAB PO SCH (21:08)
[2019-11-13] MEDS ORDERED: VANCOMYCIN HCL 750 MG in SODIUM CHLORIDE 0.9% 250 ML IV SCH (04:00)
[2019-11-13] MEDS: MoRPHine SULFATE 2 MG/ML CARP IV PRN ×3 (05:35→19:23)
[2019-11-13] MEDS: METOPROLOL SUCC 25MG EXT REL TAB PO SCH ×2 (08:45→20:06)
[2019-11-13] MEDS: FUROSEMIDE 40 MG TAB PO SCH ×2 (08:45→17:34)
[2019-11-13] MEDS: PRASugrel TAB 10 MG TAB PO SCH (08:46)
[2019-11-13] MEDS: lisinopriL 5 MG TAB PO SCH (08:46)
[2019-11-13] MEDS: ASPIRIN 81 MG ECTAB PO SCH (08:46)
[2019-11-13] MEDS: cefTRIAXone SODIUM 2,000 MG in DEXTROSE 5% 50 ML IV SCH ×2 (10:17→19:22)
[2019-11-13] MEDS ORDERED: SODIUM CHLORIDE 0.65% NA SOLN 45 ML (OCEAN) PRN (12:06)
--- NOTE | 2019-11-13 12:08 | Hospitalist Progress Note ---
Date of Service November 13, 2019 Assessment & Plan (1) CAD (coronary artery disease): -Patient had an 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 He has a known chronic occlusion involving the right coronary artery. He was successfully stented in the circumflex vessel in 2019. Of note he also had an complete heart block around that episode as well as severe mitral regurgitation likely related to his acute infarct. Noncompliance in therapy played a role in these complications, and as mentioned he was recently admitted for CHF which has also been an ongoing issue. (2) Elevated troponin: -patient has been known to have chronically elevated troponins -on this 11/10/19 presentation, inital troponin mildly elevated as 0.057 and then normalized to 0.037 and 0.042 -cardiac cath not needed at this time as per cardiology (3) Substernal chest pain: -Patient has reported on and off chest pain and is difficult to assess as being a reliable historian -his known underlying cardiac dysfunction also complicates medical assessment to rule out acute coronary artery syndromes on initial hospitalizations; cardiac cath not needed at this time as per cardiology suspected Endocarditis -during this cardiac workup, his echocardiogram showed a thickening of the tricuspid valve which was not seen before -during this time and last recent Hospitalization in October 14, 2019 to October 23, 2019; no leukocytosis, fever, chills, or other symptoms to suggest endocarditis. -does have chronic valvular insufficiencies. On the parasternal view, tricuspid valve did appear abnormal however this was not well seen on other views as per cardiology -patient is empirically being treated as if there are endocarditis vegetations, has been on ceftriaxone and vancomycin from admission 11/10/19 -as of 11/13/19, the 11/10/19 admission blood cultures in 1 of 2 aerobic bottles of admission blood culture as Coag negative Staphylococcus. No other growth so far from other bottles on 11/10/19 cultures and no growth to date from 11/12/19 repeat blood cultures. -Vancomycin stopped on 11/13/19 as MRSA coverage does not appear to be necessary -Continue Ceftriaxone -at this point in time, patient does not present with any clinical symptoms of endocarditis. Once cultures finalized, there can be more plans on making decision whether a minimum of 6 weeks of IV antibiotics total is truly needed as suggested by infectious disease consult on 11/12/19 or not. secondly patient's history of nonadherence to medical therapy and his personal beliefs of medical treatment may prevent him from accepting superintendent container terminal IV antibiotic treatments (4) Chronic systolic heart failure: -continue furosemide 40 mg BID -palliative care consulted as patient has chronically low ejection fraction Paroxysmal atrial fibrillation -patient had episodes of tachycardia on telemetry -cardiologists suggested either to stay with combination of Prasugel and aspirin versus Prasugel and Xarelto which may better prevent stroke risk from atrial fibrillation -hospitalist discussed with patient that the combination of Prasugel and Xarelto would prevent coronary artery stent re-occlusion (such as the case with Prasugel and aspirin) but in addition limit the stroke risks from atrial fibrillation -patient commented that he actually has been avoiding aspirin at home and only was taking Prasugel. He is not interested in Xarelto at this time -there are no immediate plans by cardiology service for pacemaker (5) Hypertension: -blood pressure controlled on 5 mg daily lisinopril, continue (6) Hyperthyroidism: -Has a history of methimazole use which he was actually declining. -low TSH of 0.193 on 11/10/19, normal free T4 1.29 (7) Paranoid schizophrenia: -patient had reported Chronic, recent hallucinations and paranoid delusions regarding nightmares things seen on TV -is cooperative on exam, does not demonstrate harm to self or others (8) Noncompliance: -Known history of chronic noncompliance of medication (9) History of tobacco abuse: -no nicotine craving reported (10) DVT prophylaxis: -Lovenox Full code Subjective Patient declined aspirin this AM. Also avoiding day time dose of furosemide. patient does not have fever. we discussed about anxiety. patient breathing on room air. no shortness of breath. no dizziness or lightheadedness reported. no vomiting Review of Systems Review of Systems: All systems reviewed & are unremarkable except as noted in HPI & below Physical Exam Constitutional: comfortable Eyes: PERRL, conjunctivae normal, anicteric sclerae EOM intact bilaterally ENMT: external ear and nose normal, oropharynx normal Neck: normal visual inspection Respiratory: normal respiratory effort, lungs clear to auscultation Cardiovascular: Rate/Rhythm: regular rate Gastrointestinal (Abdomen): normal bowel sounds, soft, nontender, no hepatosplenomegaly Musculoskeletal: Head/Neck/Chest: normocephalic and head atraumatic Neurologic: PERRL, EOMI, accommodation nl, no face palsy, no dysarthria CN's II-XI intact bilaterally Psychiatric: A+Ox3, euthymic affect Results & Data Vital Signs (Past 12 Hours) Vital Signs Temp Pulse Pulse Resp BP BP Pulse Ox 11/13/19 11:00 36.5 C 77 18 126/94 97 11/13/19 07:20 75 11/13/19 07:00 36.4 C L 63 18 117/77 98 11/13/19 03:31 36.5 C 72 18 120/84 100 11/13/19 01:49 83
[2019-11-13] MEDS: OXYCODONE HCL IR 5 MG TAB (IMMEDIATE RELEASE) PO PRN ×2 (14:27→22:43)
[2019-11-13] MEDS: ATORVASTATIN 40 MG TAB PO SCH (20:05)
[2019-11-14] MEDS: cefTRIAXone SODIUM 2,000 MG in DEXTROSE 5% 50 ML IV SCH (08:34)
[2019-11-14] MEDS: lisinopriL 5 MG TAB PO SCH (08:35)
[2019-11-14] MEDS: ASPIRIN 81 MG ECTAB PO SCH (08:35)
[2019-11-14] MEDS: PRASugrel TAB 10 MG TAB PO SCH (08:36)
[2019-11-14] MEDS: METOPROLOL SUCC 25MG EXT REL TAB PO SCH ×2 (08:36→20:34)
[2019-11-14] MEDS ORDERED: VANCOMYCIN CONSULT ACTIVE PRN (08:39)
--- NOTE | 2019-11-14 08:48 | Hospitalist Progress Note ---
Date of Service November 14, 2019 Assessment & Plan (1) CAD (coronary artery disease): -Patient had an 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 He has a known chronic occlusion involving the right coronary artery. He was successfully stented in the circumflex vessel in 2019. Of note he also had an complete heart block around that episode as well as severe mitral regurgitation likely related to his acute infarct. Noncompliance in therapy played a role in these complications, and as mentioned he was recently admitted for CHF which has also been an ongoing issue. (2) Elevated troponin: -patient has been known to have chronically elevated troponins -on this 11/10/19 presentation, inital troponin mildly elevated as 0.057 and then normalized to 0.037 and 0.042 -cardiac cath not needed at this time as per cardiology (3) Substernal chest pain: -Patient has reported on and off chest pain and is difficult to assess as being a reliable historian -his known underlying cardiac dysfunction also complicates medical assessment to rule out acute coronary artery syndromes on initial hospitalizations; cardiac cath not needed at this time as per cardiology suspected Endocarditis -during this cardiac workup, his echocardiogram showed a thickening of the tricuspid valve which was not seen before -during this time and last recent Hospitalization in October 14, 2019 to October 23, 2019; no leukocytosis, fever, chills, or other symptoms to suggest endocarditis. -does have chronic valvular insufficiencies. On the parasternal view, tricuspid valve did appear abnormal however this was not well seen on other views as per cardiology -patient is empirically being treated as if there are endocarditis vegetations, has been on ceftriaxone and vancomycin from admission 11/10/19 -as of 11/13/19, the 11/10/19 admission blood cultures in 1 of 2 aerobic bottles of admission blood culture as Coag negative Staphylococcus. No other growth so far from other bottles on 11/10/19 cultures and no growth to date from 11/12/19 repeat blood cultures. -11/13/19 Vancomycin was held and ceftriaxone continued as there was low suspic ion for MRSA; peripheral guided ultrasound IV access secured in left upper extremity -However on 11/14/19 the Coag negative Staph sensitivity returned as resistant to Oxacillin. Therefor, vancomycin restarted and ceftriaxone is discontinued -discussed with case manger that patient may be willing to to physical rehabilitation facility or longterm facility to complete minimum of 6 weeks of IV antibiotics as recommended by infectious disease consult. welfare case worker will discuss with patient. patient likely will need upgrade to PICC line. ideally hospitalist doctor would like patient to continue IV antibiotics as daptomycin in outside facility rather than vancomycin to avoid renal side effects of vancomycin -patient has been afebrile to date (4) Chronic systolic heart failure: -continue furosemide 40 mg BID -palliative care consulted as patient has chronically low ejection fraction Paroxysmal atrial fibrillation -patient had episodes of tachycardia on telemetry -cardiologists suggested either to stay with combination of Prasugel and aspirin versus Prasugel and Xarelto which may better prevent stroke risk from atrial fibrillation -hospitalist discussed with patient that the combination of Prasugel and Xarelto would prevent coronary artery stent re-occlusion (such as the case with Prasugel and aspirin) but in addition limit the stroke risks from atrial fibrillation -patient commented that he actually has been avoiding aspirin at home and only was taking Prasugel. He is not interested in Xarelto at this time -there are no immediate plans by cardiology service for pacemaker (5) Hypertension: -blood pressure controlled on 5 mg daily lisinopril, continue (6) Hyperthyroidism: -Has a history of methimazole use which he was actually declining. -low TSH of 0.193 on 11/10/19, normal free T4 1.29 (7) Paranoid schizophrenia: -patient had reported Chronic, recent hallucinations and paranoid delusions regarding nightmares things seen on TV -is cooperative on exam, does not demonstrate harm to self or others (8) Noncompliance: -Known history of chronic noncompliance of medication (9) History of tobacco abuse: -no nicotine craving reported (10) DVT prophylaxis: -Lovenox Full code Subjective Patient does not have acute pain. breathing on room air. no shortness of breath. no headache. no dizziness. we discussed at length of IV antibiotic management. military exchange wireless manager to discuss with patient about physical therapy facilities or SNFs for completion of antibiotic course Review of Systems Review of Systems: All systems reviewed & are unremarkable except as noted in HPI & below Physical Exam Constitutional: comfortable Eyes: PERRL, conjunctivae normal, anicteric sclerae EOM intact bilaterally ENMT: external ear and nose normal, oropharynx normal Neck: normal visual inspection Respiratory: normal respiratory effort, lungs clear to auscultation Cardiovascular: Rate/Rhythm: regular rate Gastrointestinal (Abdomen): normal bowel sounds, soft, nontender, no hepatosplenomegaly Musculoskeletal: Head/Neck/Chest: normocephalic and head atraumatic Neurologic: PERRL, EOMI, accommodation nl, no face palsy, no dysarthria CN's II-XI intact bilaterally Psychiatric: A+Ox3, euthymic affect Results & Data Vital Signs (Past 12 Hours) Vital Signs Temp Pulse Pulse Resp BP Pulse Ox 11/14/19 07:24 70 11/14/19 07:20 36.5 C 70 18 123/88 98 11/14/19 04:37 36.5 C 72 20 120/82 96 11/13/19 23:45 36.7 C 79 20 136/87 100 11/13/19 22:20 83
--- NOTE | 2019-11-14 09:04 | Pharmacy Report ---
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 Plan Vancomycin * Patient's last dose of vancomycin was 0400 on 11/13/19 representing approximately 30 hours since last dose. * Patient specific pharmacokinetics suggest a peak of 38 mcg/mL when trough was last 21.9 mcg/mL -- half life of 14 hours with elimination constant of 0.05 hr-1. * Will give small load, approximately 20 mg/kg, since patient has lost about 2.5 half-lives. --> vancomycin 1250 mg/IV x 1 * Restart vancomycin 750 mg IV q12 hours (12.5 mg/kg) since patient will need this long-term. Will attempt to keep normal dosing intervals. * Trough for endocarditis 18-20 mcg/kg * Check trough prior to 1000 tomorrow to ensure no accumulation. * Ordered kidney function labs for tomorrow. Pharmacy will continue to follow and will adjust dose/frequency as necessary. Thank you.
[2019-11-14] MEDS ORDERED: VANCOMYCIN HCL 1,250 MG in SODIUM CHLORIDE 0.9% 250 ML IV ONE (10:00)
[2019-11-14] MEDS: MoRPHine SULFATE 2 MG/ML CARP IV PRN ×3 (10:02→23:21)
--- NOTE | 2019-11-14 11:12 | Cardiology Progress Note ---
Date of Service November 14, 2019 Assessment & Plan (1) Chronic systolic CHF (congestive heart failure): (2) CAD (coronary artery disease): (3) Hypertension: (4) Schizophrenia: (5) Chest pain: (6) Noncompliance: (7) Paroxysmal atrial fibrillation: (8) Mitral regurgitation: ASSESSMENT/PLAN: 1. Chest pain: No ACS. 2. Chronic systolic CHF: Overall doing well. I think he has diuresed adequately. He continues to refuse Lasix at times but seems to have a good diuresis with the medication he takes. 3. Ischemic cardiomyopathy: Continue metoprolol succinate and lisinopril. Will not pursue ICD at this time 4. CAD s/p Cx/OM PCI: Continue high-dose atorvastatin, beta-polo and prasugrel. Aspirin has been ordered but he has been refusing to take 5. Mitral and tricuspid regurgitation: Severe. Likely compromises his cardiac function and produces additional symptoms. Will continue with diuretics. 6. Concern for endocarditis: One blood culture growing coag negative staph. Unclear if this is a contaminant. He has some concerns regarding antibiotics but has been taking them so far. 7. Hypertension: Normal blood pressure this morning. 8. Paroxysmal atrial fibrillation: Maintaining sinus rhythm. He has elected to not take anticoagulation and he has been prescribed dual antiplatelet therapy Subjective He reports having some difficulty with bowel movements and urinating. Feeling like he is going to "land in a bad place" while on the toilet. He has some concerns about his antibiotics. He feels that it may help his infection but he "might not be here" if he gets them. No breathing difficulty. Continued leg swelling. Minimal ambulation. Review of Systems Review of Systems: per HPI Physical Exam Physical Exam: The patient is alert and oriented. Mood and affect appeared normal. He answered all questions appropriately. He did report some paranoid delusions. HEENT: Pupils are equal and reactive to light and accommodation. Extraocular movements are intact. The sclerae are anicteric. Neuro: Cranial nerves intact Neck: Patient's neck is supple. He has palpable carotid pulses bilaterally without bruits on auscultation. There is no evidence of jugular venous distention. The thyroid is not enlarged. Lungs: Normal respiratory effort. Crackles primarily in the left lung base. Cardiac: Heart demonstrates an irregular rate and rhythm. Normal S1 and S2. Soft holosystolic murmur. Pulses: The patient has palpable radial pulses bilaterally that are equal in intensity Extremities: The right lower extremity has some mild edema. There is significant trophic changes in the right lower extremity. Excoriations in the left lower extremity.. Skin: I did not appreciate any rashes on examination today. Results & Data Vital Signs (Past 12 Hours) Vital Signs Temp Pulse Pulse Resp BP Pulse Ox 11/14/19 07:24 70 11/14/19 07:20 36.5 C 70 18 123/88 98 11/14/19 04:37 36.5 C 72 20 120/82 96 11/13/19 23:45 36.7 C 79 20 136/87 100 PG Care Time/CCT Total # of Minutes Spent Total Time Spent with Patient: Total time spent is greater than 50% in coordination of care (as documented) at patient's floor/unit and/or counseling patient:
[2019-11-14 11:34] LABS: Creatinine Clr Calc Pharmacy 54.3 ml/min; Est GFR (African American) 74.3; Est GFR (Non-African American) 64.1
[2019-11-14] MEDS: OXYCODONE HCL IR 5 MG TAB (IMMEDIATE RELEASE) PO PRN (13:24)
[2019-11-14] MEDS ORDERED: LORazepam 0.25 MG/0.5 ML VIAL IV STA (13:52)
[2019-11-14] MEDS: FUROSEMIDE 40 MG TAB PO SCH ×2 (13:53→17:29)
[2019-11-14] MEDS ORDERED: VANCOMYCIN TROUGH ONE (15:30)
[2019-11-14] MEDS: ATORVASTATIN 40 MG TAB PO SCH (20:34)
[2019-11-14] MEDS ORDERED: VANCOMYCIN HCL 750 MG in SODIUM CHLORIDE 0.9% 250 ML IV SCH (22:00)
[2019-11-15 07:22] LABS: Creatinine Clr Calc Pharmacy 59.2 ml/min; Est GFR (African American) 83.8; Est GFR (Non-African American) 72.3
[2019-11-15] MEDS: ASPIRIN 81 MG ECTAB PO SCH (09:29)
[2019-11-15] MEDS: PRASugrel TAB 10 MG TAB PO SCH (09:30)
[2019-11-15] MEDS ORDERED: VANCOMYCIN TROUGH ONE ×2 (09:30→11:30)
[2019-11-15] MEDS: lisinopriL 5 MG TAB PO SCH (09:31)
[2019-11-15] MEDS: METOPROLOL SUCC 25MG EXT REL TAB PO SCH ×2 (09:31→20:55)
[2019-11-15] MEDS: MoRPHine SULFATE 2 MG/ML CARP IV PRN ×3 (09:34→22:50)
--- NOTE | 2019-11-15 10:41 | Cardiology Progress Note ---
Date of Service November 15, 2019 Assessment & Plan (1) Chronic systolic CHF (congestive heart failure): (2) CAD (coronary artery disease): (3) Hypertension: (4) Schizophrenia: (5) Chest pain: (6) Noncompliance: (7) Paroxysmal atrial fibrillation: (8) Mitral regurgitation: ASSESSMENT/PLAN: 1. Chest pain: No ACS. 2. Chronic systolic CHF: Overall doing well. I think he has diuresed adequately. He continues to refuse Lasix at times but seems to have a good diuresis with the medication he takes. He apparently has some dyspnea with activity. I would not be surprised that this represents symptoms from his heart failure. However, our ability to be more aggressive I think is limited by his mental health issues and noncompliance. Time of discharge if he goes home on 40 milligrams of Lasix daily that should be adequate. 3. Ischemic cardiomyopathy: Continue metoprolol succinate and lisinopril. Will not pursue ICD at this time. 4. CAD s/p Cx/OM PCI: Continue high-dose atorvastatin, beta-polo and prasugrel. Aspirin has been ordered but he has been refusing to take 5. Mitral and tricuspid regurgitation: Severe. Likely compromises his cardiac function and produces additional symptoms. Not a candidate for valve surgery. Will continue with diuretics. 6. Concern for endocarditis: He is refusing the optimal treatment for the coag- negative organism identified in his blood culture. Whether this represents true endocarditis or is a contaminant is unclear. He did not present with sec way of endocarditis. I think he would be a difficult patient to manage on an outpatient basis either with a PICC line or frequent antibiotic infusions. I do not think he will allow us to provide him optimal treatment in this regard. I would favor not treating this potential contaminant at this time in simply monitoring him periodically with blood cultures. If he continues to have evidence of a bacteremia perhaps more aggressive efforts to treat presumed endocarditis could be entertained at that time. 7. Hypertension: Normal blood pressure this morning. 8. Paroxysmal atrial fibrillation: Maintaining sinus rhythm. He has elected to not take anticoagulation and he has been prescribed dual antiplatelet therapy. He will continue on metoprolol. I will be away from the hospital for the next 2 days. Please direct any additional questions regarding this patient's care to the buddhist monk seo professional for G[facility] Carrington (Dr. Ingram) Subjective This morning the patient had some concerns regarding vancomycin. He questioned its use yesterday and apparently felt quite poorly after the infusion started yesterday. He is currently refusing vancomycin. He also claims to have more breathing difficulty this morning. According to nursing staff he is dyspneic when he ambulates. He reported feeling poorly on the toilet again in some difficulty explaining the symptoms. Review of Systems Review of Systems: Per HPI. Physical Exam Physical Exam: The patient is alert and oriented. Mood and affect appeared normal. He answered all questions appropriately. He did report some paranoid delusions. HEENT: Pupils are equal and reactive to light and accommodation. Extraocular movements are intact. The sclerae are anicteric. Neuro: Cranial nerves intact Neck: Patient's neck is supple. He has palpable carotid pulses bilaterally without bruits on auscultation. There is no evidence of jugular venous distention. The thyroid is not enlarged. Lungs: Normal respiratory effort. Crackles primarily in the left lung base. Cardiac: Heart demonstrates an irregular rate and rhythm. Normal S1 and S2. Soft holosystolic murmur. Pulses: The patient has palpable radial pulses bilaterally that are equal in intensity Extremities: The right lower extremity has some mild edema. There is significant trophic changes in the right lower extremity. Excoriations in the left lower extremity.. Skin: I did not appreciate any rashes on examination today. Results & Data Vital Signs (Past 12 Hours) Vital Signs Temp Pulse Pulse Resp BP Pulse Ox 11/15/19 07:22 36.8 C 59 L 18 116/75 92 11/15/19 04:15 36.6 C 70 18 123/78 98 11/15/19 02:03 68 11/15/19 00:31 36.5 C 71 18 105/76 90 Laboratory Results Abnormal Lab Results 11/14/19 11/15/19 10:47 06:20 Creatinine 1.17 1.06 Est Cr Clr Drug Dosing 54.3 59.2 Est GFR ( Amer) 74.3 83.8 Est GFR (Non-Af Amer) 64.1 72.3 PG Care Time/CCT Total # of Minutes Spent Total Time Spent with Patient: Total time spent is greater than 50% in coord ination of care (as documented) at patient's floor/unit and/or counseling patient:
--- NOTE | 2019-11-15 10:56 | Hospitalist Progress Note ---
Date of Service November 15, 2019 Assessment & Plan (1) CAD (coronary artery disease): -Patient had an 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 He has a known chronic occlusion involving the right coronary artery. He was successfully stented in the circumflex vessel in 2019. Of note he also had an complete heart block around that episode as well as severe mitral regurgitation likely related to his acute infarct. Noncompliance in therapy played a role in these complications, and as mentioned he was recently admitted for CHF which has also been an ongoing issue. (2) Elevated troponin: -patient has been known to have chronically elevated troponins -on this 11/10/19 presentation, inital troponin mildly elevated as 0.057 and then normalized to 0.037 and 0.042 -cardiac cath not needed at this time as per cardiology (3) Substernal chest pain: -Patient has reported on and off chest pain and is difficult to assess as being a reliable historian -his known underlying cardiac dysfunction also complicates medical assessment to rule out acute coronary artery syndromes on initial hospitalizations; cardiac cath not needed at this time as per cardiology suspected Endocarditis -during this cardiac workup, his echocardiogram showed a thickening of the tricuspid valve which was not seen before -during this time and last recent Hospitalization in October 14, 2019 to October 23, 2019; no leukocytosis, fever, chills, or other symptoms to suggest endocarditis. -does have chronic valvular insufficiencies. On the parasternal view, tricuspid valve did appear abnormal however this was not well seen on other views as per cardiology -patient is empirically being treated as if there are endocarditis vegetations, has been on ceftriaxone and vancomycin from admission 11/10/19 -as of 11/13/19, the 11/10/19 admission blood cultures in 1 of 2 aerobic bottles of admission blood culture as Coag negative Staphylococcus. No other growth so far from other bottles on 11/10/19 cultures and no growth to date from 11/12/19 repeat blood cultures. -11/13/19 Vancomycin was held and ceftriaxone continued as there was low suspic ion for MRSA; peripheral guided ultrasound IV access secured in left upper extremity -However on 11/14/19 the Coag negative Staph sensitivity returned as resistant to Oxacillin. Therefor, vancomycin restarted and ceftriaxone is discontinued. Patient could not complete dose of Vancomycin because he felt discomfort or anxiety -11/15/19 pharmacist looking to run IV Vancomycin at slower rate. Nurse asked to give ativan with IV Vancomycin infusion. also discussed with Dr. Carter from cardiology that given's patients lack of fever symptoms and problems with medication compliance that strategy of long term care social worker IV antibiotics may not be successful or not absolutely needed. Dr. Carter suggest possibility of outpatient surveillance blood cultures alone off antibiotics. Hospitalist also notes that given patient's non adherence to outpatient health care that outpatient surveillance blood cultures may not happen - with patient's frequent hospital presentations for chest discomfort, he will likely be high likely to be hospital re-admission (4) Chronic systolic heart failure: -continue furosemide 40 mg BID -palliative care consulted as patient has chronically low ejection fraction Paroxysmal atrial fibrillation -patient had episodes of tachycardia on telemetry -cardiologists suggested either to stay with combination of Prasugel and aspirin versus Prasugel and Xarelto which may better prevent stroke risk from atrial fibrillation -hospitalist discussed with patient that the combination of Prasugel and Xarelto would prevent coronary artery stent re-occlusion (such as the case with Prasugel and aspirin) but in addition limit the stroke risks from atrial fibrillation -patient commented that he actually has been avoiding aspirin at home and only was taking Prasugel. He is not interested in Xarelto at this time -there are no immediate plans by cardiology service for pacemaker (5) Hypertension: -blood pressure controlled on 5 mg daily lisinopril, continue (6) Hyperthyroidism: -Has a history of methimazole use which he was actually declining. -low TSH of 0.193 on 11/10/19, normal free T4 1.29 (7) Paranoid schizophrenia: -patient had reported Chronic, recent hallucinations and paranoid delusions regarding nightmares things seen on TV -is cooperative on exam, does not demonstrate harm to self or others (8) Noncompliance: -Known history of chronic noncompliance of medication (9) History of tobacco abuse: -no nicotine craving reported (10) DVT prophylaxis: -Lovenox Full code Subjective Patient agrees again to try the IV Vancomycin today. Patient with nonspecific symptoms when he only got a little bit of IV Vancomycin infusion yesterday. Zak benitez does not have acute symptoms today. We discuss [facility] hospital plans and options. Review of Systems Review of Systems: All systems reviewed & are unremarkable except as noted in HPI & below Physical Exam Constitutional: comfortable Eyes: PERRL, conjunctivae normal, anicteric sclerae EOM intact bilaterally ENMT: external ear and nose normal, oropharynx normal Neck: normal visual inspection Respiratory: normal respiratory effort, lungs clear to auscultation Cardiovascular: Rate/Rhythm: regular rate Gastrointestinal (Abdomen): normal bowel sounds, soft, nontender, no hepatosplenomegaly Musculoskeletal: Head/Neck/Chest: normocephalic and head atraumatic Neurologic: PERRL, EOMI, accommodation nl, no face palsy, no dysarthria CN's II-XI intact bilaterally Psychiatric: A+Ox3, euthymic affect Results & Data Vital Signs (Past 12 Hours) Vital Signs Temp Pulse Pulse Resp BP Pulse Ox 11/15/19 07:22 36.8 C 59 L 18 116/75 92 11/15/19 04:15 36.6 C 70 18 123/78 98 11/15/19 02:03 68 11/15/19 00:31 36.5 C 71 18 105/76 90
[2019-11-15] MEDS ORDERED: VANCOMYCIN HCL IV SCH (12:00)
[2019-11-15] MEDS ORDERED: SODIUM CHLORIDE 0.9% IV SCH (12:00)
--- NOTE | 2019-11-15 12:50 | Pharmacy Report ---
Pharmacy Abx Dose Short Note - Date of Service November 15, 2019 - Assessment & Plan Assessment 69 year old M receiving vancomycin for treatment of suspected endocarditis Plan Vancomycin * Discussed with patient about receiving vancomycin. He was nervous to receive the "big bag" as the bigger bags contained too much antibiotic. He stated he has difficulty breathing and it is just simply "too much." He denies any throat swelling or tongue swelling. * Patient said the "small bags" were better. This was in reference to the Rocephin. * We compromised on a 100 mL bag - patient said he would give it a shot. Run over 2 hours in hopes of preventing any adverse effects from infusion. Concentration below 10 mg/mL so okay from pharmacy side. * Restart 750 mg IV q12 hours - give second dose at 2200 (about 2 hours early) since not loaded plus then will allow patient to not need to be woken up. * Goal trough level for endocarditis : 15 to 20 mcg/mL * Trough NOT ordered - please order if patient continues to receive routinely. Pharmacy will continue to follow and will adjust dose/frequency as necessary. Thank you.
[2019-11-15] MEDS: FUROSEMIDE 40 MG TAB PO SCH ×2 (14:53→16:50)
[2019-11-15] MEDS: ATORVASTATIN 40 MG TAB PO SCH (20:55)
[2019-11-16] MEDS: ASPIRIN 81 MG ECTAB PO SCH (09:00)
[2019-11-16] MEDS: PRASugrel TAB 10 MG TAB PO SCH (09:00)
[2019-11-16] MEDS: METOPROLOL SUCC 25MG EXT REL TAB PO SCH ×2 (09:01→20:55)
[2019-11-16] MEDS: lisinopriL 5 MG TAB PO SCH (09:01)
[2019-11-16] MEDS: MoRPHine SULFATE 2 MG/ML CARP IV PRN (09:03)
[2019-11-16] MEDS: OXYCODONE HCL IR 5 MG TAB (IMMEDIATE RELEASE) PO PRN (10:05)
[2019-11-16] MEDS: FUROSEMIDE 40 MG TAB PO SCH ×2 (13:22→18:22)
--- NOTE | 2019-11-16 16:36 | Hospitalist Progress Note ---
Date of Service November 16, 2019 Assessment & Plan (1) CAD (coronary artery disease): -Patient had an 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 He has a known chronic occlusion involving the right coronary artery. He was successfully stented in the circumflex vessel in 2019. Of note he also had an complete heart block around that episode as well as severe mitral regurgitation likely related to his acute infarct. Noncompliance in therapy played a role in these complications, and as mentioned he was recently admitted for CHF which has also been an ongoing issue. (2) Elevated troponin: -patient has been known to have chronically elevated troponins -on this 11/10/19 presentation, inital troponin mildly elevated as 0.057 and then normalized to 0.037 and 0.042 -cardiac cath not needed at this time as per cardiology (3) Substernal chest pain: -Patient has reported on and off chest pain and is difficult to assess as being a reliable historian -his known underlying cardiac dysfunction also complicates medical assessment to rule out acute coronary artery syndromes on initial hospitalizations; cardiac cath not needed at this time as per cardiology suspected Endocarditis -during this cardiac workup, his echocardiogram showed a thickening of the tricuspid valve which was not seen before -during this time and last recent Hospitalization in October 14, 2019 to October 23, 2019; no leukocytosis, fever, chills, or other symptoms to suggest endocarditis. -does have chronic valvular insufficiencies. On the parasternal view, tricuspid valve did appear abnormal however this was not well seen on other views as per cardiology -patient is empirically being treated as if there are endocarditis vegetations, has been on ceftriaxone and vancomycin from admission 11/10/19 -as of 11/13/19, the 11/10/19 admission blood cultures in 1 of 2 aerobic bottles of admission blood culture as Coag negative Staphylococcus. No other growth so far from other bottles on 11/10/19 cultures and no growth to date from 11/12/19 repeat blood cultures. -11/13/19 Vancomycin was held and ceftriaxone continued as there was low susp icion for MRSA; peripheral guided ultrasound IV access secured in left upper extremity -However on 11/14/19 the Coag negative Staph sensitivity returned as resistant to Oxacillin. Therefor, vancomycin restarted and ceftriaxone is discontinued. Patient could not complete dose of Vancomycin because he felt discomfort or anxiety -11/15/19 pharmacist looking to run IV Vancomycin at slower rate. Nurse asked to give ativan with IV Vancomycin infusion. also discussed with Dr. Carter from cardiology that given's patients lack of fever symptoms and problems with medication compliance that strategy of regional intermodal truck driver IV antibiotics may not be successful or not absolutely needed. Dr. Carter suggest possibility of outpatient surveillance blood cultures alone off antibiotics. Hospitalist also notes that given patient's non adherence to outpatient health care that outpatient surveillance blood cultures may not happen - with patient's frequent hospital presentations for chest discomfort, he will likely be high likely to be hospital re-admission. Nurse reported that after half a bag of IV Vancomycin was given, the IV line beeped for line occlusion and then patient declined any further IV infusions of the Vancomycin. Patient reported to medical doctor that he thinks the IV antibiotic was somehow hurting him. He does not have interest in continuing IV antibiotic treatment. Patient agrees for monitoring inpatient off IV antibiotics. If no fevers develops, patient agrees for possible hospital discharge on Monday11/17/19 as he would have had 48 hours of inpatient monitoring off antibiotics at that time. 11/16/19: no fevers to date (4) Chronic systolic heart failure: -continue furosemide 40 mg BID -palliative care consulted as patient has chronically low ejection fraction Paroxysmal atrial fibrillation -patient had episodes of tachycardia on telemetry during this hospital stay; furnace charging machine operator had suggested either to stay with combination of Prasugel and aspirin versus Prasugel and Xarelto which may better prevent stroke risk from atrial fibrillation -hospitalist discussed with patient that the combination of Prasugel and Xarelto would prevent coronary artery stent re-occlusion (such as the case with Prasugel and aspirin) but in addition limit the stroke risks from atrial fibrillation -patient commented that he actually has been avoiding aspirin at home and only was taking Prasugel. He is not interested in Xarelto at this time -there are no immediate plans by cardiology service for pacemaker -patient generally avoid aspirin when nurse offers medication to him (5) Hypertension: -blood pressure controlled on 5 mg daily lisinopril, continue (6) Hyperthyroidism: -Has a history of methimazole use which he was actually declining. -low TSH of 0.193 on 11/10/19, normal free T4 1.29 (7) Paranoid schizophrenia: -is cooperative on exam, does not demonstrate harm to self or others (8) Noncompliance: -Known history of chronic noncompliance of medication (9) History of tobacco abuse: -no nicotine craving reported (10) DVT prophylaxis: -Lovenox Full code Subjective patient seen and examined at bedside. he is brushing his hair. breathing on room air. no fevers. no acute pain expressed to physician. Review of Systems Review of Systems: All systems reviewed & are unremarkable except as noted in HPI & below Physical Exam Constitutional: comfortable Eyes: PERRL, conjunctivae normal, anicteric sclerae EOM intact bilaterally ENMT: external ear and nose normal, oropharynx normal Neck: normal visual inspection Respiratory: normal respiratory effort, lungs clear to auscultation Cardiovascular: Rate/Rhythm: regular rate Gastrointestinal (Abdomen): normal bowel sounds, soft, nontender, no hepa tosplenomegaly Musculoskeletal: Head/Neck/Chest: normocephalic and head atraumatic Neurologic: PERRL, EOMI, accommodation nl, no face palsy, no dysarthria CN's II-XI intact bilaterally Psychiatric: A+Ox3, euthymic affect Results & Data Vital Signs (Past 12 Hours) Vital Signs Temp Pulse Pulse Resp BP BP Pulse Ox 11/16/19 15:44 74 11/16/19 15:13 36.6 C 59 L 18 102/64 100 11/16/19 11:39 36.3 C L 94 H 16 133/77 96 11/16/19 08:15 36.6 C 65 18 114/71 96 11/16/19 08:00 68
[2019-11-16] MEDS: HYDROmorphone INJ 0.5 MG/0.5 ML SYR IV PRN (19:25)
[2019-11-16] MEDS: ATORVASTATIN 40 MG TAB PO SCH (21:01)
[2019-11-17] MEDS: HYDROmorphone INJ 0.5 MG/0.5 ML SYR IV PRN ×2 (08:32→16:29)
[2019-11-17] MEDS: FUROSEMIDE 40 MG TAB PO SCH ×2 (08:36→18:19)
[2019-11-17] MEDS: PRASugrel TAB 10 MG TAB PO SCH (08:36)
[2019-11-17] MEDS: ASPIRIN 81 MG ECTAB PO SCH (08:36)
[2019-11-17] MEDS: lisinopriL 5 MG TAB PO SCH (08:37)
[2019-11-17] MEDS: METOPROLOL SUCC 25MG EXT REL TAB PO SCH ×2 (08:38→20:48)
--- NOTE | 2019-11-17 13:21 | Hospitalist Progress Note ---
Date of Service November 17, 2019 Assessment & Plan (1) CAD (coronary artery disease): Chronic systolic congestive heart failure -Patient had an 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 He has a known chronic occlusion involving the right coronary artery. He was successfully stented in the circumflex vessel in 2019. Of note he also had an complete heart block around that episode as well as severe mitral regurgitation likely related to his acute infarct. Noncompliance in therapy played a role in these complications, and as mentioned he was recently admitted for CHF which has also been an ongoing issue. (2) Elevated troponin: -patient has been known to have chronically elevated troponins -on this 11/10/19 presentation, inital troponin mildly elevated as 0.057 and then normalized to 0.037 and 0.042 -cardiac cath not needed at this time as per cardiology (3) Substernal chest pain: -Patient has reported on and off chest pain and is difficult to assess as being a reliable historian -his known underlying cardiac dysfunction also complicates medical assessment to rule out acute coronary artery syndromes on initial hospitalizations; cardiac cath not needed at this time as per cardiology suspected Endocarditis -during this cardiac workup, his echocardiogram showed a thickening of the tricuspid valve which was not seen before -during this time and last recent Hospitalization in October 14, 2019 to October 23, 2019; no leukocytosis, fever, chills, or other symptoms to suggest endocarditis. -does have chronic valvular insufficiencies. On the parasternal view, tricuspid valve did appear abnormal however this was not well seen on other views as per cardiology -patient is empirically being treated as if there are endocarditis vegetations, has been on ceftriaxone and vancomycin from admission 11/10/19 -as of 11/13/19, the 11/10/19 admission blood cultures in 1 of 2 aerobic bottles of admission blood culture as Coag negative Staphylococcus. No other growth so far from other bottles on 11/10/19 cultures and no growth to date from 11/12/19 repeat blood cultures. -11/13/19 Vancomycin was held and ceftriaxone continued as there was low suspicion for MRSA; peripheral guided ultrasound IV access secured in left upper extremity -However on 11/14/19 the Coag negative Staph sensitivity returned as resistant to Oxacillin. Therefor, vancomycin restarted and ceftriaxone is discontinued. Patient could not complete dose of Vancomycin because he felt discomfort or anxiety -11/15/19 pharmacist looking to run IV Vancomycin at slower rate. Nurse asked to give ativan with IV Vancomycin infusion. also discussed with Dr. Carter from cardiology that given's patients lack of fever symptoms and problems with medication compliance that strategy of group home IV antibiotics may not be successful or not absolutely needed. Dr. Carter suggest possibility of outpatient surveillance blood cultures alone off antibiotics. Hospitalist also notes that given patient's non adherence to outpatient health care that outpatient surveillance blood cultures may not happen - with patient's frequent hospital presentations for chest discomfort, he will likely be high likely to be hospital re-admission. Nurse reported that after half a bag of IV Vancomycin was given, the IV line beeped for line occlusion and then patient declined any further IV infusions of the Vancomycin. Patient reported to medical doctor that he thinks the IV antibiotic was somehow hurting him. He does not have interest in continuing IV antibiotic treatment. Patient agrees for monitoring inpatient off IV antibiotics. If no fevers develops, patient agrees for possible hospital discharge on Monday11/17/19 as he would have had 48 hours of inpatient monitoring off antibiotics at that time. 11/16/19: no fevers to date 11/17/19: medical discharge have discussed with patient with establishing with primary care doctor's office. He has not gone to [facility] outpatient clinic on last several appointments. Patient should get outpatient blood cultures with primary care doctor for routine blood work surveillance (4) Hypertension: -blood pressure controlled on 5 mg daily lisinopril, continue (5) Hyperthyroidism: -Has a history of methimazole use which he was actually declining. -low TSH of 0.193 on 11/10/19, normal free T4 1.29 (6) Paranoid schizophrenia: -is cooperative on exam, does not demonstrate harm to self or others (7) Noncompliance: -Known history of chronic noncompliance of medication (8) History of tobacco abuse: -no nicotine craving reported (9) DVT prophylaxis: -Lovenox when inpatient Full code Discharge Diagnosis: chest pain; Elevated troponin, coronary artery disease, chronic congestive systolic heart failure, treatment was started for suspected endocarditis but this is likely a cardiac valvulopathy seen on imaging , medical noncompliance/ nonadherence, Chronic systolic heart failure, Paroxysmal atrial fibrillation, Hypertension, Hyperthyroidism, Paranoid schizophrenia Subjective went to see and examined the patient this AM. no chest pain. no shortness of breath. patient did not report complaints. we talked about discharge plans today given absence of fevers off antibiotics. fund accounting manager discussions had been taking place earlier today to coordinate discharge then went back to room to discuss with patient of medical discharge have discussed with patient with establishing with primary care doctor's office. He has not gone to [facility] outpatient clinic on last several appointments. Patient should get outpatient blood cultures with primary care doctor for routine blood work surveillance patient had been previously agreeable to hospital discharge on Monday. but when discussing with outpatient plans and discharge order, he accused medical doctor of lying to him and that it was supposed to be Monday. Medical doctor explained to him that there is no further inpatient hospital work up to be done. fund accounting manager can assist on further social needs. Review of Systems Review of Systems: All systems reviewed & are unremarkable except as noted in HPI & below Physical Exam Constitutional: comfortable Eyes: PERRL, conjunctivae normal, anicteric sclerae EOM intact bilaterally ENMT: external ear and nose normal, oropharynx normal Neck: normal visual inspection Respiratory: normal respiratory effort, lungs clear to auscultation Cardiovascular: Rate/Rhythm: regular rate Gastrointestinal (Abdomen): normal bowel sounds, soft, nontender, no hepatospl enomegaly Musculoskeletal: Head/Neck/Chest: normocephalic and head atraumatic Neurologic: PERRL, EOMI, accommodation nl, no face palsy, no dysarthria CN's II-XI intact bilaterally Psychiatric: A+Ox3, euthymic affect Results & Data Vital Signs (Past 12 Hours) Vital Signs Temp Pulse Pulse Resp BP Pulse Ox 11/17/19 11:00 36.6 C 71 20 109/62 100 11/17/19 07:23 64 11/17/19 07:00 36.6 C 76 18 109/70 95 11/17/19 02:59 36.6 C 67 20 95/55 L 98
--- NOTE | 2019-11-17 13:32 | Discharge Summary ---
Date of Service November 17, 2019 Admission HPI Per Admitting Provider 69-year-old man with a history of CAD presents with acute chest pain. The patient is well-known to our service and he has a history of noncompliance with medication secondary to paranoid schizophrenia with delusions. He is not okay with taking aspirin because it says he says it scares him, he declines Lasix because he does not like running to the bathroom, and he declines nitroglycerin because he says it changes you as a person. The chest pain began early this morning and woke him up from sleep. He was recently hospitalized 3 weeks ago and reports feeling well since that time. The prior hospitalization was for acute on chronic systolic CHF. There seems to be no other associated symptoms to the episode of pain last night but it has lasted through till this morning. He did receive fentanyl in the ER and he states it helped his pain 90% of the way. He denies any other fevers or chills or shortness of breath at this time. He denies any weight gain or swelling. He does report eating foods that include SpaghettiOs and other processed foods he has to microwave. He states his refrigerator is stopped by a community service effort. He reports tolerating p.o. and eating well recently. He has not been outside due to the cold weather, and reports staying active in his apartment recently. Admission Exam Per Admitting Provider CONSTITUTIONAL: WNWD, vitals as above, generally well-appearing EYES: EOMMI, PERRL, normal conjunctivae, no scleral icterus ENT: external ear and nose normal, oropharynx clear, mucous membranes are moist. RESPIRATORY: Normal respiratory effort, coarse crackles at the bases bilaterally, no rales or wheezes and otherwise moving air well. CARDIOVASCULAR: regular rate and rhythm, S1 and 2 heard without murmurs, gallops or rubs, no JVD, no peripheral edema CHEST: inspection of chest was normal GASTROINTESTINAL: Muscular abdomen and patient was tensing as I examined him but not out of pain. It appears he was unable to follow instruction to relax his abdominal muscles. Otherwise nondistended and nontender without guarding. MUSCULOSKELETAL: strength 5/5 throughout, head is normocephalic and atraumatic SKIN: warm and dry (patient reports resolution of sacral wound but would not allow examination of this area). Chronic lower extremity changes on the right including scaly hard skin with a chronic swollen appearance and erythema. No evidence of wounds or skin breakdown. NEUROLOGIC: CN 2-12 grossly intact, no sensory deficit, normal cognition, normal speech, no tremor, no gross focal neuro deficit PSYCHIATRIC: alert and oriented, cooperative. Principal Diagnosis chest pain; Elevated troponin, coronary artery disease, chronic congestive systolic heart failure, treatment was started for suspected endocarditis but this is likely a cardiac valvulopathy seen on imaging , medical noncompliance/ nonadherence, Chronic systolic heart failure, Paroxysmal atrial fibrillation, Hypertension, Hyperthyroidism, Paranoid schizophrenia Discharge Exam Constitutional comfortable Eyes PERRL, conjunctivae normal, anicteric sclerae EOM intact bilaterally ENMT external ear and nose normal, oropharynx normal Neck normal visual inspection Respiratory normal respiratory effort, lungs clear to auscultation Cardiovascular Rate/Rhythm: regular rate Gastrointestinal (Abdomen) normal bowel sounds, soft, nontender, no hepatosplenomegaly Musculoskeletal Head/Neck/Chest: normocephalic and head atraumatic Neurologic PERRL, EOMI, accommodation nl, no face palsy, no dysarthria CN's II-XI intact bilaterally Psychiatric A+Ox3, euthymic affect Discharge Data Allergies Allergy/AdvReac Type Severity Reaction Status Date / Time horse dander Allergy Unknown HORSE HAIR Verified 11/10/19 06:10 tetanus toxoid, adsorbed Allergy Unknown Unknown Verified 11/10/19 06:10 Consultations 11/10/19 06:49 ED Decision to Admit Stat 11/10/19 09:24 Consult Cardiology Routine Consult Case Management - Discharge Planning Routine 11/10/19 13:53 Consult Infectious Diseases Routine 11/10/19 13:54 Consult Palliative Care Routine Hospital Course (1) CAD (coronary artery disease): Chronic systolic congestive heart failure -Patient had an 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 He has a known chronic occlusion involving the right coronary artery. He was successfully stented in the circumflex vessel in 2019. Of note he also had an complete heart block around that episode as well as severe mitral regurgitation likely related to his acute infarct. Noncompliance in therapy played a role in these complications, and as mentioned he was recently admitted for CHF which has also been an ongoing issue. (2) Elevated troponin: -patient has been known to have chronically elevated troponins -on this 11/10/19 presentation, inital troponin mildly elevated as 0.057 and then normalized to 0.037 and 0.042 -cardiac cath not needed at this time as per cardiology (3) Substernal chest pain: -Patient has reported on and off chest pain and is difficult to assess as being a reliable historian -his known underlying cardiac dysfunction also complicates medical assessment to rule out acute coronary artery syndromes on initial hospitalizations; cardiac cath not needed at this time as per cardiology suspected Endocarditis -during this cardiac workup, his echocardiogram showed a thickening of the tricuspid valve which was not seen before -during this time and last recent Hospitalization in October 14, 2019 to October 23, 2019; no leukocytosis, fever, chills, or other symptoms to suggest endocarditis. -does have chronic valvular insufficiencies. On the parasternal view, tricuspid valve did appear abnormal however this was not well seen on other views as per cardiology -patient is empirically being treated as if there are endocarditis vegetations, has been on ceftriaxone and vancomycin from admission 11/10/19 -as of 11/13/19, the 11/10/19 admission blood cultures in 1 of 2 aerobic bottles of admission blood culture as Coag negative Staphylococcus. No other growth so far from other bottles on 11/10/19 cultures and no growth to date from 11/12/19 repeat blood cultures. -11/13/19 Vancomycin was held and ceftriaxone continued as there was low suspicion for MRSA; peripheral guided ultrasound IV access secured in left upper extremity -However on 11/14/19 the Coag negative Staph sensitivity returned as resistant to Oxacillin. Therefor, vancomycin restarted and ceftriaxone is discontinued. Patient could not complete dose of Vancomycin because he felt discomfort or anxiety -11/15/19 pharmacist looking to run IV Vancomycin at slower rate. Nurse asked to give ativan with IV Vancomycin infusion. also discussed with Dr. 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 Dr. Carter suggest possibility of outpatient surveillance blood cultures alone off antibiotics. Hospitalist also notes that given patient's non adherence to outpatient health care that outpatient surveillance blood cultures may not happen - with patient's frequent hospital presentations for chest discomfort, he will likely be high likely to be hospital re-admission. Nurse reported that after half a bag of IV Vancomycin was given, the IV line beeped for line occlusion and then patient declined any f urther IV infusions of the Vancomycin. Patient reported to medical doctor that he thinks the IV antibiotic was somehow hurting him. He does not have interest in continuing IV antibiotic treatment. Patient agrees for monitoring inpatient off IV antibiotics. If no fevers develops, patient agrees for possible hospital discharge on Monday11/17/19 as he would have had 48 hours of inpatient monitoring off antibiotics at that time. 11/16/19: no fevers to date 11/17/19: medical discharge have discussed with patient with establishing with primary care doctor's office. He has not gone to [facility] outpatient clinic on last several appointments. Patient should get outpatient blood cultures with primary care doctor for routine blood work surveillance (4) Hypertension: -blood pressure controlled on 5 mg daily lisinopril, continue (5) Hyperthyroidism: -Has a history of methimazole use which he was actually declining. -low TSH of 0.193 on 11/10/19, normal free T4 1.29 (6) Paranoid schizophrenia: -is cooperative on exam, does not demonstrate harm to self or others (7) Noncompliance: -Known history of chronic noncompliance of medication (8) History of tobacco abuse: -no nicotine craving reported (9) DVT prophylaxis: -Lovenox when inpatient Full code Discharge Diagnosis: chest pain; Elevated troponin, coronary artery disease, chronic congestive systolic heart failure, treatment was started for suspected endocarditis but this is likely a cardiac valvulopathy seen on imaging , medical noncompliance/ nonadherence, Chronic systolic heart failure, Paroxysmal atrial fibrillation, Hypertension, Hyperthyroidism, Paranoid schizophrenia Total Time Total Time Spent Total Time Spent (In Minutes): 40 minutes Total Time Includes: Examination of the Patient, Discharge Planning, Medication Reconciliation and Communication With Other Providers Discharge Plan Discharge Items Patient Disposition: Home - Self-Care Reason For Visit: CHEST PAIN Discharge Diagnosis: chest pain; Elevated troponin, coronary artery disease, chronic congestive systolic heart failure, treatment was started for suspected endocarditis but this is likely a cardiac valvulopathy seen on imaging , medical noncompliance/ nonadherence, Chronic systolic heart failure, Paroxysmal atrial fibrillation, Hypertension, Hyperthyroidism, Paranoid schizophrenia Condition on Discharge: Good Activity: Per Instructions section Non-emergency contact: Primary Care Provider Call non-emergency contact if: you have any medication questions Follow-up/Referrals: PCP,NO [Primary Care Provider] - Diet: Heart Healthy and Low Sodium (2gm) Addtl Attending Provider Instructions: CAD (coronary artery disease): -Patient had an 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 He has a known chronic occlusion involving the right coronary artery. He was successfully stented in the circumflex vessel in 2019. Of note he also had an complete heart block around that episode as well as severe mitral regurgitation likely related to his acute infarct. Noncompliance in therapy played a role in these complications, and as mentioned he was recently admitted for CHF which has also been an ongoing issue. Elevated troponin: -patient has been known to have chronically elevated troponins -on this 11/10/19 presentation, inital troponin mildly elevated as 0.057 and then normalized to 0.037 and 0.042 -cardiac cath not needed at this time as per cardiology Substernal chest pain: -Patient has reported on and off chest pain and is difficult to assess as being a reliable historian -his known underlying cardiac dysfunction also complicates medical assessment to rule out acute coronary artery syndromes on initial hospitalizations; cardiac cath not needed at this time as per cardiology suspected Endocarditis but likely a cardiac valvulopathy seen on imaging -during this cardiac workup, his echocardiogram showed a thickening of the tricuspid valve which was not seen before -during this time and last recent Hospitalization in October 14, 2019 to October 23, 2019; no leukocytosis, fever, chills, or other symptoms to suggest endocarditis. -does have chronic valvular insufficiencies. On the parasternal view, tricuspid valve did appear abnormal however this was not well seen on other views as per cardiology -patient is empirically being treated as if there are endocarditis vegetations, has been on ceftriaxone and vancomycin from admission 11/10/19 -as of 11/13/19, the 11/10/19 admission blood cultures in 1 of 2 aerobic bottles of admission blood culture as Coag negative Staphylococcus. No other growth so far from other bottles on 11/10/19 cultures and no growth to date from 11/12/19 repeat blood cultures. -11/13/19 Vancomycin was held and ceftriaxone continued as there was low suspicion for MRSA; peripheral guided ultrasound IV access secured in left upper extremity -However on 11/14/19 the Coag negative Staph sensitivity returned as resistant to Oxacillin. Therefor, vancomycin restarted and ceftriaxone is discontinued. Patient could not complete dose of Vancomycin because he felt discomfort or anxiety -11/15/19 pharmacist looking to run IV Vancomycin at slower rate. Nurse asked to give ativan with IV Vancomycin infusion. also discussed with Dr. 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 Dr. Carter suggest possibility of outpatient surveillance blood cultures alone off antibiotics. Hospitalist also notes that given patient's non adherence to outpatient health care that outpatient surveillance blood cultures may not happen - with patient's frequent hospital presentations for chest discomfort, he will likely be high likely to be hospital re-admission. Nurse reported that after half a bag of IV Vancomycin was given, the IV line beeped for line occlusion and then patient declined any further IV infusions of the Vancomycin. Patient reported to medical doctor that he thinks the IV antibiotic was somehow hurting him. He does not have interest in continuing IV antibiotic treatment. Patient agrees for monitoring inpatient off IV antibiotics. If no fevers develops, patient agrees for possible hospital discharge on Monday11/17/19 as he would have had 48 hours of inpatient monitori ng off antibiotics at that time. 11/16/19: no fevers to date 11/17/19: patient is medically discharged Chronic systolic heart failure: -continue furosemide 40 mg BID -palliative care consulted as patient has chronically low ejection fraction Paroxysmal atrial fibrillation -patient had episodes of tachycardia on telemetry during this hospital stay; brand director had suggested either to stay with combination of Prasugel and aspirin versus Prasugel and Xarelto which may better prevent stroke risk from atrial fibrillation -hospitalist discussed with patient that the combination of Prasugel and Xarelto would prevent coronary artery stent re-occlusion (such as the case with Prasugel and aspirin) but in addition limit the stroke risks from atrial fibrillation -patient commented that he actually has been avoiding aspirin at home and only was taking Prasugel. He is not interested in Xarelto at this time -there are no immediate plans by cardiology service for pacemaker -patient generally avoid aspirin when nurse offers medication to him Hypertension: -blood pressure controlled on 5 mg daily lisinopril, continue Hyperthyroidism: -Has a history of methimazole use which he was actually declining. -low TSH of 0.193 on 11/10/19, normal free T4 1.29 Paranoid schizophrenia: -does not demonstrate harm to self or others Noncompliance: -Known history of chronic noncompliance of medication History of tobacco abuse: -no nicotine craving reported Addtl Project Engineer Provider Instructions: have discussed with patient with establishing with primary care doctor's office. He has not gone to [facility] outpatient clinic on last several appointments. Patient should get outpatient blood cultures with primary care doctor for routine blood work surveillance . Who to Call and When: Call 911 or go to the Emergency Room if: * If at any time you feel your situation is an emergency * You have tightness or pain in your chest that does not go away with rest or Nitroglycerin * You are very short of breath even with rest . Pending Studies at Discharge: No Stand-Alone Forms: Call Back Authorization, [facility], Smoking Cessation Medications and DC Order Prescriptions: Continued nitroglycerin [Nitrostat] 0.4 mg Tablet, Sublingual 0.4 mg sublingual PRN PRN (Reason: chest pain) Qty: 30 RF: 0 prasugrel [Effient] 10 mg Tablet 10 mg PO QAM Qty: 30 RF: 0 aspirin [Ecotrin Low Strength] 81 mg Tablet,Delayed Release (Dr/Ec) 81 mg PO QAM Qty: 30 RF: 0 tramadol 50 mg tablet 50 mg PO Q12H PRN (Reason: pain) Qty: 5 RF: 0 metoprolol tartrate 25 mg Tablet 25 mg PO BID RF: 0 atorvastatin [Lipitor] 80 mg Tablet 80 mg PO HS RF: 0 furosemide [Lasix] 40 mg tablet 40 mg PO BID Qty: 60 RF: 0 Discharge Orders: Discharge Order (Routine); Ordered 11/17/19 Ordered By: Arnold Gaspar Admission Data Admit Date/Time: 11/10/19 13:55 Attending Provider: Arnold Gaspar Admit Provider: Chelsea Mosley Primary Care Provider: PCP,NO Other Providers: Trung Montiel ; Godfrey Lechuga ; Ellen Jc ; [facility] ; [facility],
[2019-11-17] MEDS: ATORVASTATIN 40 MG TAB PO SCH (20:50)
[2019-11-17] MEDS: OXYCODONE HCL IR 5 MG TAB (IMMEDIATE RELEASE) PO PRN (22:04)
[2019-11-18] MEDS: PRASugrel TAB 10 MG TAB PO SCH (07:51)
[2019-11-18] MEDS: ASPIRIN 81 MG ECTAB PO SCH (07:51)
[2019-11-18] MEDS: FUROSEMIDE 40 MG TAB PO SCH (07:51)
[2019-11-18] MEDS: METOPROLOL SUCC 25MG EXT REL TAB PO SCH (07:51)
[2019-11-18] MEDS: lisinopriL 5 MG TAB PO SCH (07:52)
[2019-11-18] MEDS: OXYCODONE HCL IR 5 MG TAB (IMMEDIATE RELEASE) PO PRN (10:03)
--- NOTE | 2019-11-18 14:15 | Discharge Summary ---
Date of Service November 18, 2019 Admission HPI Per Admitting Provider 69-year-old man with a history of CAD presents with acute chest pain. The patient is well-known to our service and he has a history of noncompliance with medication secondary to paranoid schizophrenia with delusions. He is not okay with taking aspirin because it says he says it scares him, he declines Lasix because he does not like running to the bathroom, and he declines nitroglycerin because he says it changes you as a person. The chest pain began early this morning and woke him up from sleep. He was recently hospitalized 3 weeks ago and reports feeling well since that time. The prior hospitalization was for acute on chronic systolic CHF. There seems to be no other associated symptoms to the episode of pain last night but it has lasted through till this morning. He did receive fentanyl in the ER and he states it helped his pain 90% of the way. He denies any other fevers or chills or shortness of breath at this time. He denies any weight gain or swelling. He does report eating foods that include SpaghettiOs and other processed foods he has to microwave. He states his refrigerator is stopped by a community service effort. He reports tolerating p.o. and eating well recently. He has not been outside due to the cold weather, and reports staying active in his apartment recently. Admission Exam Per Admitting Provider CONSTITUTIONAL: WNWD, vitals as above, generally well-appearing EYES: EOMMI, PERRL, normal conjunctivae, no scleral icterus ENT: external ear and nose normal, oropharynx clear, mucous membranes are moist. RESPIRATORY: Normal respiratory effort, coarse crackles at the bases bilaterally, no rales or wheezes and otherwise moving air well. CARDIOVASCULAR: regular rate and rhythm, S1 and 2 heard without murmurs, gallops or rubs, no JVD, no peripheral edema CHEST: inspection of chest was normal GASTROINTESTINAL: Muscular abdomen and patient was tensing as I examined him but not out of pain. It appears he was unable to follow instruction to relax his abdominal muscles. Otherwise nondistended and nontender without guarding. MUSCULOSKELETAL: strength 5/5 throughout, head is normocephalic and atraumatic SKIN: warm and dry (patient reports resolution of sacral wound but would not allow examination of this area). Chronic lower extremity changes on the right including scaly hard skin with a chronic swollen appearance and erythema. No evidence of wounds or skin breakdown. NEUROLOGIC: CN 2-12 grossly intact, no sensory deficit, normal cognition, normal speech, no tremor, no gross focal neuro deficit PSYCHIATRIC: alert and oriented, cooperative. Principal Diagnosis Chronic congestive systolic heart failure Cardiac valvulopathy Chest pain Demand ischemia Medical noncompliance Paranoid schizophrenia Discharge Data Allergies Allergy/AdvReac Type Severity Reaction Status Date / Time horse dander Allergy Unknown HORSE HAIR Verified 11/10/19 06:10 tetanus toxoid, adsorbed Allergy Unknown Unknown Verified 11/10/19 06:10 Consultations 11/10/19 06:49 ED Decision to Admit Stat 11/10/19 09:24 Consult Cardiology Routine Consult Case Management - Discharge Planning Routine 11/10/19 13:53 Consult Infectious Diseases Routine 11/10/19 13:54 Consult Palliative Care Routine Hospital Course (1) Chronic systolic CHF (congestive heart failure): (2) Vegetation of heart valve: (3) Substernal chest pain: (4) Ischemic cardiomyopathy: (5) CAD (coronary artery disease): (6) Elevated troponin: (7) Paranoid schizophrenia: (8) Noncompliance: 69-year-old paranoid schizophrenic patient presented with substernal chest pain. He has a known history of prior heart attack with stent placement within the last 6 months. He has a history of noncompliance with medications. An echocardiogram was performed revealing new onset ejection fraction 15% with global hypokinesis. There was also a questionable thickening of the tricuspid valve seen in 1 of 3 views which was initially thought to represent endocarditis. He was placed on empiric antibiotics pending blood culture results of which one bottle was positive for Coagulase negative staph with resistance to oxacillin . Clinically he did not appear ill and denies a history of fevers or chills. He has dyspnea on exertion that is expected for him with his [place] and complications since [place] with valve rupture and heart failure that are known. Cardiology was consulted and felt his mildly elevated troponin was not consistent with ACS. From a heart failure standpoint he appeared mildly hypervolemic initially with Lasix recommended by cardiology. The patient continued to refuse this per his feelings about the medication. Cardiac catheterization was discussed with the patient given his prior catheterization findings, however the patient declined cardiac catheterization at this time. Additionally cardiology noted that further PCI would not be without its risk given the fact that he is not compliant with dual antiplatelet therapy to begin with. Metoprolol succinate and LOIS inhibitor therapy was recommended. Entresto was not recommended secondary to cost and attempts to improve compliance by choosing once daily medications. The possibility of ICD placement was discussed if the LV systolic function did not improve over time. Infectious disease was consulted and recommended 6 weeks of IV antibiotics however the patient declined this and PICC line was removed prior to discharge. At time of discharge she was hemodynamically stable and afebrile. He was mentating and ambulating at baseline and tolerating p.o. He was oxygenating well on room air and was requesting to be discharged home. Physical exam revealed a euvolemic patient in no acute distress who was thin and frail. Lungs were clear to auscultation. Heart exam was unremarkable. No peripheral edema was present. He was discharged in stable condition with close primary care follow-up recommended. Total Time Total Time Spent Total Time Spent (In Minutes): 60 Discharge Plan Discharge Items Patient Disposition: Home - Self-Care Reason For Visit: CHEST PAIN Discharge Diagnosis: Chronic congestive systolic heart failure Cardiac valvulopathy Chest pain Demand ischemia Medical noncompliance Paranoid schizophrenia Condition on Discharge: Good Activity: Resume your previous activity Non-emergency contact: Primary Care Provider Call non-emergency contact if: you have any medication questions Follow-up/Referrals: PCP,NO [Primary Care Provider] - Diet: Heart Healthy and Low Sodium (2gm) Addtl Attending Provider Instructions: Please take all medications as instructed on discharge list below. Please follow-up with your primary care provider at the appointment given below: 11/26/2019 2:00 PM Misty Vora MD General Internal Medicine [facility] You will need non-fasting bloodwork (BMP) in two weeks after starting lisinopril. This may be ordered by your PCP at follow-up. It was a pleasure taking care of you! Please call if you have any questions or problems. You can reach a [facility] hospitalist on duty at [facility] 24 hours a day by calling [phone]. Take care of yourself. Chelsea Mosley DO [facility] Hospitalist Addtl Stripper Color Provider Instructions: Call 1 and go to the Emergency Room if: * You have tightness or pain in your chest that does not go away with rest or Nitroglycerin * You are very short of breath even with rest Call your doctor if any of the following symptoms or problems start or get worse: * Shortness of breath or difficulty breathing * Wake up at night short of breath * Chest pain * Cough * Swelling of your hands, fee, or legs * More fatigued or tired with your normal activity * Palpitations - sudden fast heart beats WEIGHT * Weigh yourself every morning after using the bathroom. * Use the same scale. * Wear the same amount of clothing. * Write your weight down on your chart. * Call your doctor if you gain more than 2-3 pounds in 1-2 days. MEDICATIONS * Use this discharge instruction sheet for instructions. * Take your medications at the time your doctor ordered. * Do not skip a dose of your medicines. * If you miss a dose of medicine, take as soon as possible, but DO NOT DOUBLE A DOSE. * Read your medicine information when you get home. * Know all of the side effects of your medicine. * Call your doctor's office if you have any side effects. * Be sure all of your doctors know what medicine and herbs you take (including cold, flu, and herbal medicine). * Pain Medicine: If you do not get relief from your pain, please call your doctor for help. Take the following with you to your follow-up doctor appointments: * Weight Chart * Medication List * List of questions Do not drink excessive alcohol, beer or wine. . Pending Studies at Discharge: No Stand-Alone Forms: Call Back Authorization, [facility], Smoking Cessation Medications and DC Order Prescriptions: New metoprolol succinate 25 mg Tablet Extended Release 24 Hr 25 mg PO BID Qty: 60 RF: 1 lisinopril [Zestril] 5 mg Tablet 5 mg PO QAM Qty: 30 RF: 1 furosemide [Lasix] 40 mg tablet 40 mg PO DAILY Qty: 30 RF: 1 Continued nitroglycerin [Nitrostat] 0.4 mg Tablet, Sublingual 0.4 mg sublingual PRN PRN (Reason: chest pain) Qty: 30 RF: 0 prasugrel [Effient] 10 mg Tablet 10 mg PO QAM Qty: 30 RF: 0 aspirin [Ecotrin Low Strength] 81 mg Tablet,Delayed Release (Dr/Ec) 81 mg PO QAM Qty: 30 RF: 0 tramadol 50 mg tablet 50 mg PO Q12H PRN (Reason: pain) Qty: 5 RF: 0 atorvastatin [Lipitor] 80 mg Tablet 80 mg PO HS RF: 0 Discontinued metoprolol tartrate 25 mg Tablet 25 mg PO BID RF: 0 furosemide [Lasix] 40 mg tablet 40 mg PO BID Qty: 60 RF: 0 Discharge Orders: Discharge Order (Routine); Ordered 11/18/19 Ordered By: Chelsea Mosley Admission Data Admit Date/Time: 11/10/19 13:55 Attending Provider: Chelsea Mosley Admit Provider: Chelsea Mosley Primary Care Provider: PCP,NO Other Providers: Trung Montiel ; Godfrey Lechuga ; Ellen Jc ; [facility] ; [facility], Other Interventions: Discharge Summary Assessment (RN) Last Done: 11/18/19 14:06 DC Date/Time DO NOT enter until pt leaves facility: 11/18/19 15:46
== END 2019-11-18 15:46 | disposition home or self-care (01) | DRG 313 ==
LOC: 2N 05:39 → ED 05:39 → 2N 09:00 → SUATTDRO 13:55

== ENCOUNTER 2019-12-01 15:27 | Inpatient (IN) ==
[2019-12-01] MEDS ORDERED: TRAMADOL HCL 50 MG TABLET PO STA (15:43)
--- NOTE | 2019-12-01 15:51 | XRay Report ---
XR chest 1V portable CLINICAL HISTORY: SEPSIS COMPARISON STUDY: 11/10/2019 FINDINGS: The heart remains enlarged. There is improving pulmonary vascular congestion. There is a sm all right pleural effusion and trace left pleural effusion. There is no focal pulmonary consolidation . IMPRESSION: 1. Cardiomegaly and resolving congestive failure/fluid overload 2. No evidence of focal pulmonary consolidation 3. Persistent small right pleural effusion. Persistent trace left pleural effusion ACT 112: Negative or not required by law. Electronically signed by: Villa Almeida M.D. 12/01/2019 3:50 PM
[2019-12-01 16:46] LABS: Basophils # (auto) 0.02 K/uL (0-0.2); Basophils % (auto) 0.4 %; Eosinophils # (auto) 0.03 K/uL (0-0.5); Eosinophils % (auto) 0.6 %; Hematocrit (blood only) 34.5 % (42-52); Hemoglobin 10.5 g/dL (14.0-18.0); Immature Granulocytes # (auto) 0.01 K/uL (0.00-0.02); Immature Granulocytes % (auto) 0.2 %; Lymphocytes # (auto) 0.64 K/uL (1.2-3.4); Lymphocytes % (auto) 13.4 %; Mean Corpuscular Hemoglobin 24.5 pg (25-34); Mean Corpuscular Hgb Conc 30.4 g/dL (32-36); Mean Corpuscular Volume 80.4 fL (80-100); Monocytes # (auto) 0.32 K/uL (0.11-0.59); Monocytes % (auto) 6.7 %; Neutrophils # (auto) 3.75 K/uL (1.4-6.5); Neutrophils % (auto) 78.7 %; Platelet Count 222 K/uL (130-400); RDW Coefficient of Variation 17.9 % (11.5-14.5); RDW Standard Deviation 51.7 fL (36.4-46.3); Red Blood Count 4.29 M/uL (4.7-6.1); White Blood Count 4.77 K/uL (4.8-10.8)
[2019-12-01 16:57] LABS: INR 1.2 (0.9-1.1); Partial Thromboplastin Ratio 0.9; Partial Thromboplastin Time 24.5 Seconds (21.0-31.0); Prothrombin Time 12.4 Seconds (9.0-12.0)
[2019-12-01 17:05] LABS: Albumin Level 3.3 gm/dl (3.4-5.0); BUN Creatinine Ratio 20.3 (10-20); Calcium 8.7 mg/dl (8.5-10.1); Creatinine Clr Calc Pharmacy 53.5 ml/min; Est GFR (African American) 75.1; Est GFR (Non-African American) 64.8; Magnesium 2.1 mg/dl (1.8-2.4)
[2019-12-01 17:10] LABS: Albumin Globulin Ratio 0.7 (0.9-2); Bilirubin,Total 1.2 mg/dl (0.2-1); Creatine Kinase MB 3.5 ng/ml (0.5-3.6); Globulin 4.6 gm/dl (2.5-4.0); Total Protein 7.9 gm/dl (6.4-8.2); Troponin I 0.03 ng/ml (0-0.045)
[2019-12-01] MEDS ORDERED: MoRPHine SULFATE 10 MG/ML CARP/VIAL IV STA (17:16)
[2019-12-01] MEDS ORDERED: KETOROLAC 30 MG/ML VIAL IV STA (17:16)
[2019-12-01] MEDS ORDERED: MoRPHine SULFATE 4 MG/ML 1 ML CARP\\VIAL ONE (17:38)
[2019-12-01] MEDS ORDERED: MoRPHine SULFATE 2 MG/ML CARP ONE (17:39)
[2019-12-01] MEDS: FUROSEMIDE 40 MG/4 ML VIAL IV STA ×2 (17:45→19:05)
[2019-12-01] MEDS ORDERED: VANCOMYCIN HCL 1,250 MG in SODIUM CHLORIDE 0.9% 500 ML IV ONE (18:04)
[2019-12-01] MEDS ORDERED: LEVOFLOXACIN/D5W 750 MG/150 ML BAG IV STA (18:04)
[2019-12-01] MEDS ORDERED: VANCOMYCIN CONSULT ACTIVE PRN (18:04)
[2019-12-01] MEDS ORDERED: PIPERACILLIN/TAZOBACTAM 4.5 GM/120 ML BAG IV ONE (18:04)
[2019-12-01] MEDS ORDERED: PIPERACILL/TAZOBAC CONSULT ACTIVE PRN (18:04)
--- NOTE | 2019-12-01 18:14 | History & Physical Report ---
Date of Service December 01, 2019 Assessment & Plan (1) Ischemic cardiomyopathy: Ischemic cardiomyopathy with LVEF 15-20%. Not always compliant with diuretic regimen. History, exam, chest x-ray, elevated BNP consistent with acute on chronic left ventricular systolic heart failure. IV furosemide ordered in ED. Continue lisinopril and metoprolol succinate. Follow exam, fluid status, weights. (2) CAD (coronary artery disease): No anginal symptoms. No acute EKG changes. Troponin normal. Continue aspirin, prasugrel, metoprolol, lisinopril, statin. (3) 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 Blood culture grew coag neg Staph. 6 week course of IV vancomycin recommended, but patient declined. Check repeat blood cultures. Resume IV vancomycin. (4) Lymphedema of right lower extremity: Chronic lymphedema of RLE with draining ulcers. Consult Wound Care Nursing to follow. (5) Diarrhea: Patient reports frequent loose stools. Check stool for C diff. (6) DVT prophylaxis: SQ heparin. Ambulate. History of Present Illness Chief Complaint: weakness, shortness of breath Primary Care Provider: NO PCP 69 YO male who does not have a primary care provider. History of coronary artery disease, ischemic cardiomyopathy, paranoid schizophrenia, and other problems as noted. Not always compliant with medical recommendations due to his beliefs / concerns. Prefers not to take furosemide unless absolutely necessary because it is difficult for him to get to the bathroom. Last hospitalized in October with CHF and suspected endocarditis. Echo showed vegetation of anterior leaflet of tricuspid valve. Blood cultures grew coagulase negative Staph. ID consulted and 6 week course of IV antibiotics was recommended, but patient declined Rx. Homeless in the past. Followed by [facility]; currently has apartment at [facility]. Experiencing profound weakness and dyspnea with minimal exertion. Chronic lower extremity edema, R > L. Has transient shooting pains "all over." No apparent anginal symptoms. No fever, pharyngitis, or significant cough. Allergies Allergy/AdvReac Type Severity Reaction Status Date / Time horse dander Allergy Unknown HORSE HAIR Verified 12/01/19 16:02 tetanus toxoid, adsorbed Allergy Unknown Unknown Verified 12/01/19 16:02 Home Medications Home Medications Medication Instructions Recorded Confirmed Type aspirin [Ecotrin Low Strength] 81 mg PO QAM #30 tab 07/16/19 12/01/19 Rx nitroglycerin [Nitrostat] 0.4 mg SUBLINGUAL PRN PRN #30 tab 07/16/19 12/01/19 Rx prasugrel [Effient] 10 mg PO QAM #30 tab 07/16/19 12/01/19 Rx tramadol 50 mg PO Q12H PRN #5 tab 10/23/19 12/01/19 Rx atorvastatin [Lipitor] 80 mg PO HS 11/10/19 12/01/19 History furosemide [Lasix] 40 mg PO DAILY #30 tab 11/18/19 12/01/19 Rx lisinopril [Zestril] 5 mg PO QAM #30 tab 11/18/19 12/01/19 Rx metoprolol succinate 25 mg PO BID #60 tab 11/18/19 12/01/19 Rx Past Med/Surg History Medical History CAD (coronary artery disease) Cholecystitis, acute Chronic systolic CHF (congestive heart failure) History of DVT (deep vein thrombosis) History of pancreatitis History of testicular cancer History of tobacco abuse Homelessness HTN (hypertension) (Chronic) "declines to take medication" Hypertension Hyperthyroidism Ischemic cardiomyopathy Lymphedema of right lower extremity Mitral regurgitation Pleural effusion Schizophrenia STEMI (ST elevation myocardial infarction) Tricuspid regurgitation Surgical History Hx of heart artery stent Status post cardiac catheterization Family History Other Unknown family medical history Social History Preferred Language: Polish Communication Ability: Effective Child Care Counselor Required: No Beliefs That Will Affect Care: None marital status: Current Living Situation: Alone Current Living Situation Comment: apartment Feels Safe at Home: No Is there a partner from a previous relationship who is making you feel unsafe now?: No Safety Concerns: Afraid for Self Smoking Status: Former smoker Number of Years Since Quit: 10 ; Second Hand Exposure: No ; Hx Alcohol Use: No Hx Substance Use: No Review of Systems Constitutional: + fatigue and + weakness; no fever and no weight loss Eyes: no diplopia and no worsening vision Ear, Nose, Mouth, Throat: no nasal congestion, no sinus pain/pressure and no sore throat Respiratory: + dyspnea; no cough (rare) Cardiovascular: + edema; no palpitations Additional Comments: no anginal symptoms Gastrointestinal: + diarrhea/loose stools (frequent); no nausea, no vomiting, no constipation, no blood in stools and no melena Musculoskeletal: + joint pain; no myalgia Integumentary: no rash and no new lesions chronic swelling / drainage RLE Neurologic: no headache(s) Psychiatric: no hallucinations Endocrine: no polydipsia and no polyuria Hematologic / Lymphatic: + easy bruising; no easy bleeding and no l ymphadenopathy Physical Exam Constitutional: + thin and + disheveled; no acute distress Eyes: PERRL, conjunctivae normal, anicteric sclerae ENMT: external ear and nose normal, oropharynx normal Mouth: + dentition abnormality (poor dentition) Neck: trachea midline, no thyromegaly Respiratory: no respiratory distress Auscultation: + rales Cardiovascular: Rate/Rhythm: regular rate Heart Sounds: + gallop (apical S3) and + murmur (II/ sys murmur LSB); no cardiac rub Vessels: + JVD Extremities: normal capillary refill and + edema (R > L); no calf tenderness Gastrointestinal (Abdomen): normal bowel sounds, soft, nontender, no hepatosplenomegaly Musculoskeletal: Head/Neck/Chest: neck supple Extremities: no cyanosis and no clubbing chronic lymphedema RLE with thickening of skin and several ulcers with drainage Skin: as noted above Neurologic: PERRL, EOMI no facial palsy no dysarthria or aphasia patellar DTR's 2/2 bilat Psychiatric: Orientation: alert and oriented x 3 no apparent visual or auditory hallucinations Lymphatic: no cervical lymphadenopathy Results & Data Vital Signs (Past 12 Hours) Vital Signs Temp Pulse Resp BP Pulse Ox 12/01/19 17:30 93 H 20 149/114 H 96 12/01/19 17:00 90 20 144/106 H 93 12/01/19 16:22 91 H 28 H 157/104 H 12/01/19 16:00 88 21 135/96 12/01/19 15:45 100 H 24 97 12/01/19 15:34 98 H 21 156/113 H 96 12/01/19 15:30 36.9 C 100 H 24 156/113 H 97 Laboratory Results Laboratory Results - last 24 hr 12/01/19 12/01/19 12/01/19 16:35 16:35 16:35 WBC 4.77 L RBC 4.29 L Hgb 10.5 L Hct 34.5 L MCV 80.4 MCH 24.5 L MCHC 30.4 L RDW Std Deviation 51.7 H RDW Coeff of Dante 17.9 H Plt Count 222 MPV 10.0 Immature Gran % (Auto) 0.2 Neut % (Auto) 78.7 Lymph % (Auto) 13.4 [place] % (Auto) 6.7 Eos % (Auto) 0.6 Baso % (Auto) 0.4 Immature Gran # (Auto) 0.01 Neut # (Auto) 3.75 Lymph # (Auto) 0.64 L [place] # (Auto) 0.32 Eos # (Auto) 0.03 Baso # (Auto) 0.02 PT 12.4 H INR 1.2 H APTT 24.5 PTT Ratio 0.9 Sodium 141 Potassium 4.0 Chloride 110 H Carbon Dioxide 23 Anion Gap 8.0 BUN 24 H Creatinine 1.16 Est Cr Clr Drug Dosing 53.5 Est GFR ( Amer) 75.1 Est GFR (Non-Af Amer) 64.8 BUN/Creatinine Ratio 20.3 H Glucose 101 H Lactate Calcium 8.7 Magnesium 2.1 Total Bilirubin 1.2 H AST 24 ALT 25 Alkaline Phosphatase 142 H Total Creatine Kinase 68 CK-MB (CK-2) 3.5 CK/CKMB % Calc 5.1 H Troponin I 0.030 NT-Pro-B Natriuret Pep 15083 H Total Protein 7.9 Albumin 3.3 L Globulin 4.6 H Albumin/Globulin Ratio 0.7 L Procalcitonin 12/01/19 12/01/19 12/01/19 16:35 16:35 19:34 WBC RBC Hgb Hct MCV MCH MCHC RDW Std Deviation RDW Coeff of Dante Plt Count MPV Immature Gran % (Auto) Neut % (Auto) Lymph % (Auto) [place] % (Auto) Eos % (Auto) Baso % (Auto) Immature Gran # (Auto) Neut # (Auto) Lymph # (Auto) [place] # (Auto) Eos # (Auto) Baso # (Auto) PT INR APTT PTT Ratio Sodium Potassium Chloride Carbon Dioxide Anion Gap BUN Creatinine Est Cr Clr Drug Dosing Est GFR ( Amer) Est GFR (Non-Af Amer) BUN/Creatinine Ratio Glucose Lactate 2.3 H* 1.6 Calcium Magnesium Total Bilirubin AST ALT Alkaline Phosphatase Total Creatine Kinase CK-MB (CK-2) CK/CKMB % Calc Troponin I NT-Pro-B Natriuret Pep Total Protein Albumin Globulin Albumin/Globulin Ratio Procalcitonin 0.19 Diagnostic Findings Portable chest x-ray showed cardiomegaly, CHF, right pleural effusion. ECG Additional Comments: EKG performed at 1606 reviewed and demonstrated NSR at 84 / min, QTc 482 msec, no acute ST or T-wave abnormalities. Code Status & VTE Plan Code Status Full code per recent discussion with Palliative Care. VTE Prophylaxis Plan VTE Prophylaxis will be ordered: Yes
[2019-12-01] MEDS ORDERED: TRAMADOL HCL 50 MG TABLET PO PRN (19:27)
[2019-12-01] MEDS ORDERED: NITROGLYCERIN SL 0.4 MG/TAB TAB SL PRN (19:27)
[2019-12-01] MEDS: METOPROLOL SUCC 25MG EXT REL TAB PO SCH (21:47)
[2019-12-01] MEDS: ATORVASTATIN 40 MG TAB PO SCH (21:47)
--- NOTE | 2019-12-01 22:08 | Electrocardiogram Report ---
Test Reason : Blood Pressure : / mmHG Vent. Rate : 084 BPM Atrial Rate : 084 BPM P-R Int : 170 ms QRS Dur : 100 ms QT Int : 408 ms P-R-T Axes : 084 086 081 degrees QTc Int : 482 ms Normal sinus rhythm with sinus arrhythmia Nonspecific T wave abnormality Prolonged QT Abnormal ECG When compared with ECG of 12-NOV-2019 11:23, No significant change was found Confirmed by Godfrey Lechuga ([id number]) on 12/01/2019 10:08:12 PM Referred By: REFERRED SELF Confirmed By:Godfrey Lechuga
[2019-12-02] MEDS: ASPIRIN 81 MG ECTAB PO SCH (09:38)
[2019-12-02] MEDS: METOPROLOL SUCC 25MG EXT REL TAB PO SCH ×2 (09:39→20:00)
[2019-12-02] MEDS: PRASugrel TAB 10 MG TAB PO SCH (09:39)
[2019-12-02] MEDS: FUROSEMIDE 40 MG TAB PO SCH (09:40)
[2019-12-02] MEDS: ENOXAPARIN INJ 40 MG/0.4 ML SYR SQ SCH (09:40)
[2019-12-02] MEDS: lisinopriL 5 MG TAB PO SCH (09:40)
--- NOTE | 2019-12-02 09:59 | Electrocardiogram Report ---
Test Reason : Blood Pressure : / mmHG Vent. Rate : 078 BPM Atrial Rate : 078 BPM P-R Int : 168 ms QRS Dur : 104 ms QT Int : 446 ms P-R-T Axes : 081 -56 080 degrees QTc Int : 508 ms Normal sinus rhythm Left axis deviation Diffuse Nonspecific T wave abnormality Prolonged QT Abnormal ECG When compared with ECG of 01-DEC-2019 16:06, No significant change Confirmed by Anthony Chery ([id number] on 12/02/2019 9:59:24 AM Referred By: REFERRED SELF Confirmed By:Anthony Chery
--- NOTE | 2019-12-02 12:41 | Hospitalist Progress Note ---
Date of Service December 02, 2019 Assessment & Plan (1) Ischemic cardiomyopathy: Ischemic cardiomyopathy with LVEF 15-20%. Not always compliant with diuretic regimen. IV furosemide ordered in ED. Continue lisinopril and metoprolol succinate. Follow exam, fluid status, weights. Denies any symptoms this morning (2) CAD (coronary artery disease): No anginal symptoms. No acute EKG changes. Troponin normal. Continue aspirin, prasugrel, metoprolol, lisinopril, statin. 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 Blood culture grew coag neg Staph. 6 week course of IV vancomycin recommended, but patient declined. Check repeat blood cultures-pending. Resume IV vancomycin-continued We will discuss with the patient in detail (4) Lymphedema of right lower extremity: Chronic lymphedema of RLE with draining ulcers. Consult Wound Care Nursing to follow. No antibiotic is given (5) Diarrhea: Patient reports frequent loose stools. Check stool for C diff-pending Paranoid schizophrenia Does not have any acute schizophrenic symptoms Part of his fear of medications and compliance is likely related to schizophrenia (6) DVT prophylaxis: SQ heparin. Ambulate. Subjective 12/02/2019 He is a 69-year-old male with significant past medical history of recently diagnosed ischemic cardiomyopathy with EF of 15 to 20%, paranoid schizophrenia, lymphedema with bilateral right more than left lower extremity cellulitis and homelessness was admitted yesterday with weakness and shortness of breath. He complains to have aches and pains all over the body Denies any chest pain and/or palpitation Denies any fever and/or chills Review of Systems Review of Systems: All systems reviewed and are unremarkable except as noted below Neurologic: Likely has some schizophrenia symptoms but nothing acute Physical Exam Physical Exam: Lying in bed comfortably Constitutional: + thin and + disheveled; no acute distress Eyes: PERRL, conjunctivae normal, anicteric sclerae ENMT: external ear and nose normal, oropharynx normal Mouth: + dentition abnormality (poor dentition) Neck: trachea midline, no thyromegaly Respiratory: no respiratory distress Auscultation: + rales Cardiovascular: Rate/Rhythm: regular rate and regular rhythm Heart Sounds: + murmur (II/ sys murmur LSB); no cardiac rub Vessels: + JVD Extremities: normal capillary refill and + edema (R > L); no calf tenderness Gastrointestinal (Abdomen): normal bowel sounds, soft, nontender, no hepatosplenomegaly Musculoskeletal: Head/Neck/Chest: neck supple Extremities: no cyanosis and no clubbing Neurologic: Alert, awake and oriented. No typical schizophrenic symptoms reported; no paranoid ideas Psychiatric: Orientation: alert and oriented x 3 Lymphatic: no cervical lymphadenopathy Results & Data Vital Signs (Past 12 Hours) Vital Signs Temp Pulse Pulse Resp BP Pulse Ox 12/02/19 11:23 36.4 C L 77 18 128/89 97 12/02/19 07:56 82 12/02/19 06:56 36.8 C 78 18 124/93 100 12/02/19 03:42 36.5 C 81 17 136/95 98 Laboratory Results Short CBC 12/01/19 Range/Units 16:35 WBC 4.77 L (4.8-10.8) K/uL Hgb 10.5 L (14.0-18.0) g/dL Hct 34.5 L (42-52) % Plt Count 222 (130-400) K/uL BMP 12/01/19 16:35 Sodium 141 Potassium 4.0 Chloride 110 H Carbon Dioxide 23 BUN 24 H Creatinine 1.16 Glucose 101 H Calcium 8.7 Cardiac Enzymes 12/01/19 Range/Units 16:35 Total Creatine Kinase 68 (39-308) U/L CK-MB (CK-2) 3.5 (0.5-3.6) ng/ml Troponin I 0.030 (0-0.045) ng/ml Liver Function 12/01/19 Range/Units 16:35 Total Bilirubin 1.2 H (0.2-1) mg/dl AST 24 (15-37) U/L ALT 25 (12-78) U/L Alkaline Phosphatase 142 H (45-117) U/L Albumin 3.3 L (3.4-5.0) gm/dl Medications Administered Current Inpatient Medications Aspirin (Ecotrin Ectab) 81 mg PO [facility] Stop: 01/01/20 08:59 Last Admin: 12/02/19 09:38 Dose: Not Given Documented by: Atorvastatin Calcium (Lipitor) 80 mg PO [facility] Stop: 12/31/19 20:59 Last Admin: 12/01/19 21:47 Dose: 80 mg Documented by: Enoxaparin Sodium (Lovenox) 40 mg SQ QAM [facility] Stop: 01/01/20 08:59 Last Admin: 12/02/19 09:40 Dose: Not Given Documented by: Furosemide (Lasix) 40 mg PO DAILY [facility] Stop: 01/01/20 08:59 Last Admin: 12/02/19 09:40 Dose: Not Given Documented by: [facility]) [facility] Stop: 01/01/20 08:59 Last Admin: 12/02/19 09:40 Dose: 5 mg Documented by: Metoprolol Succinate (Toprol Xl) 25 mg PO BID [facility] Stop: 12/31/19 20:59 Last Admin: 12/02/19 09:39 Dose: 25 mg Documented by: Nitroglycerin (Nitrostat) 0.4 mg SL PRN PRN PRN Reason: chest pain Stop: 12/31/19 19:26 Prasugrel (Effient) 10 mg PO QAM [facility] Stop: 01/01/20 08:59 Last Admin: 12/02/19 09:39 Dose: 10 mg Documented by: Tramadol HCl (Ultram) 50 mg PO Q12H PRN PRN Reason: pain Stop: 12/31/19 19:26 Last Admin: 12/02/19 07:19 Dose: 50 mg Documented by:
[2019-12-02] MEDS ORDERED: MoRPHine SULFATE 2 MG/ML CARP IV STA (16:18)
[2019-12-02] MEDS ORDERED: TRAMADOL HCL 50 MG TABLET PO PRN (16:20)
[2019-12-02] MEDS: ATORVASTATIN 40 MG TAB PO SCH (20:00)
[2019-12-02] MEDS: TRAMADOL HCL 50 MG TABLET PO PRN (20:01)
--- NOTE | 2019-12-03 00:19 | Emergency Department Note ---
Entered by Dontrell Guzman acting as a scribe for History of Present Illness General Chief complaint: Illness Stated complaint: ILLNESS, WEAK, TIRED, BODY ACHES Time Seen by Provider: 12/01/19 15:35 Source: patient and other (ED legal secretary receptionist) History of Present Illness Onset (ago): day(s) (couple) Location: head (illness) Pain Consistency: + other (worsening) Relieved By: + medication (pain) Associated symptoms: + shortness of breath, + weakness and + other (tiredness, body aches); no fever/chills The patient is a 69 year old M who presents to the Emergency Room with complaints of a worsening illness that started a couple of days ago. The patient states that he is currently experiencing weakness, tiredness, body aches, and shortness of breath. He notes that these symptoms are causing him to have troub le ambulating around his apartment. He denies that he is currently experiencing fevers and chills. He notes that he has been taking tramadol for chronic pain, but adds that he ran out of pain medications 4 days ago. He states that he is in the ED, today, to receive pain medications. The ED legal secretary receptionist notes that the patient was in the ED recently for similar symptoms. She states that the patient received pain medications in the ED. She adds that the patient was supposed to be discharged with a prescription for 6 weeks of IV antibiotics. She notes that the patient refused the prescription. Home Medications Home Medications Medication Instructions Recorded Confirmed Type aspirin [Ecotrin Low Strength] 81 mg PO QAM #30 tab 07/16/19 12/01/19 Rx nitroglycerin [Nitrostat] 0.4 mg SUBLINGUAL PRN PRN #30 tab 07/16/19 12/01/19 Rx prasugrel [Effient] 10 mg PO QAM #30 tab 07/16/19 12/01/19 Rx tramadol 50 mg PO Q12H PRN #5 tab 10/23/19 12/01/19 Rx atorvastatin [Lipitor] 80 mg PO HS 11/10/19 12/01/19 History furosemide [Lasix] 40 mg PO DAILY #30 tab 11/18/19 12/01/19 Rx lisinopril [Zestril] 5 mg PO QAM #30 tab 11/18/19 12/01/19 Rx metoprolol succinate 25 mg PO BID #60 tab 11/18/19 12/01/19 Rx Allergies Allergy/AdvReac Type Severity Reaction Status Date / Time horse dander Allergy Unknown HORSE HAIR Verified 12/01/19 16:02 tetanus toxoid, adsorbed Allergy Unknown Unknown Verified 12/01/19 16:02 Past Med/Surg History Medical History CAD (coronary artery disease) Cholecystitis, acute Chronic systolic CHF (congestive heart failure) History of DVT (deep vein thrombosis) History of pancreatitis History of testicular cancer History of tobacco abuse Homelessness HTN (hypertension) (Chronic) "declines to take medication" Hypertension Hyperthyroidism Ischemic cardiomyopathy Lymphedema of right lower extremity Mitral regurgitation Pleural effusion Schizophrenia STEMI (ST elevation myocardial infarction) Tricuspid regurgitation Surgical History Hx of heart artery stent Status post cardiac catheterization Family History Other Unknown family medical history Social History Preferred Language: French 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 and A total of 10 systems reviewed and were otherwise negative Physical Exam Vital Signs Vital Signs - 24 hr 12/01/19 15:30 12/01/19 15:34 12/01/19 15:45 Temperature 98.4 F Temperature Source Oral Pulse Rate 100 H 98 H 100 H Pulse Rate from SpO2 Sensor 99 H Pulse Rhythm Regular Regular Respiratory Rate 24 21 24 Respiratory Effort / Characteristics Non-Labored Respiratory Depth Normal Respiratory Pattern Regular Blood Pressure 156/113 H 156/113 H Blood Pressure Mean 127 127 Pulse Oximetry 97 96 97 Oxygen Delivery Method Room Air Room Air Room Air Sepsis Recent Fever Within 48 Hours No Sepsis New/Unexplained Change in Mental Status No Sepsis Action Taken by Nursing No Action Required 12/01/19 16:00 12/01/19 16:22 12/01/19 17:00 Temperature Temperature Source Pulse Rate 88 91 H 90 Pulse Rate from SpO2 Sensor 90 Pulse Rhythm Respiratory Rate 21 28 H 20 Respiratory Effort / Characteristics Respiratory Depth Respiratory Pattern Blood Pressure 135/96 157/104 H 144/106 H Blood Pressure Mean 117 124 120 Pulse Oximetry 93 Oxygen Delivery Method Room Air Sepsis Recent Fever Within 48 Hours Sepsis New/Unexplained Change in Mental Status Sepsis Action Taken by Nursing 12/01/19 17:30 Temperature Temperature Source Pulse Rate 93 H Pulse Rate from SpO2 Sensor 95 H Pulse Rhythm Respiratory Rate 20 Respiratory Effort / Characteristics Respiratory Depth Respiratory Pattern Blood Pressure 149/114 H Blood Pressure Mean 122 Pulse Oximetry 96 Oxygen Delivery Method Room Air Sepsis Recent Fever Within 48 Hours Sepsis New/Unexplained Change in Mental Status Sepsis Action Taken by Nursing GENERAL: Awake, alert, unkempt appearance, in no acute distress HENT: Normocephalic, atraumatic. Oropharynx unremarkable. EYES: Normal conjunctiva. Sclera non-icteric. NECK: Supple. No nuchal rigidity. FROM. No JVD. RESPIRATORY: Clear to auscultation. CARDIAC: Regular rate, normal rhythm. Extremities warm and well perfused. Pulses equal. ABDOMEN: Soft, non-distended. No tenderness to palpation. No rebound or guarding. No masses. RECTAL: Deferred. MUSCULOSKELETAL: Chest examination reveals no tenderness. The back is symmetrical on inspection without obvious abnormality. There is no CVA tenderness to palpation. No joint edema. LOWER EXTREMITIES: Calves are equal size bilaterally and non-tender. No edema. No discoloration. NEURO: Normal sensorium. No sensory or motor deficits noted. SKIN: No rash or jaundice noted. Course Course 153: The patient was evaluated in room C5. A complete history and physical exam was performed. 1803: I reviewed the patient's case with Dr. King, [facility] Hospitalist. He will evaluate the patient for further management. Administered Medications [facility] Stop: 01/01/20 08:59 Last Admin: 12/02/19 09:38 Dose: Not Given Documented by: [id number] Atorvastatin Calcium (Lipitor) 80 mg PO [facility] Stop: 12/31/19 20:59 Last Admin: 12/02/19 20:00 Dose: 80 mg Documented by: [id number] Admin: 12/01/19 21:47 Dose: 80 mg Documented by: [id number] Enoxaparin Sodium (Lovenox) [facility] [place] Stop: 01/01/20 08:59 Last Admin: 12/02/19 09:40 Dose: Not Given Documented by: [id number] Furosemide (Lasix) 40 mg PO DAILY [facility] Stop: 01/01/20 08:59 Last Admin: 12/02/19 09:40 Dose: Not Given Documented by: [id number] Lisinopril (Zestril) 5 mg PO QAM [facility] Stop: 01/01/20 08:59 Last Admin: 12/02/19 09:40 Dose: 5 mg Documented by: [id number] Metoprolol Succinate (Toprol Xl) 25 mg PO BID [facility] Stop: 12/31/19 20:59 Last Admin: 12/02/19 20:00 Dose: 25 mg Documented by: [id number] Admin: 12/02/19 09:39 Dose: 25 mg Documented by: [id number] Admin: 12/01/19 21:47 Dose: 25 mg Documented by: [id number] Prasugrel (Effient) 10 mg PO QAM [facility] Stop: 01/01/20 08:59 Last Admin: 12/02/19 09:39 Dose: 10 mg Documented by: [id number] Tramadol HCl (Ultram) 25 mg PO Q4H PRN PRN Reason: pain Stop: 01/01/20 16:19 Last Admin: 12/02/19 20:01 Dose: 25 mg Documented by: [id number] Discontinued Medications Furosemide (Lasix) 40 mg IV NOW STA Stop: 12/01/19 17:12 Last Admin: 12/01/19 19:05 Dose: Not Given Documented by: [id number] Piperacillin Sod/Tazobactam Sod (Zosyn) 4.5 gm in 120 mls @ 240 mls/hr IV NOW ONE Stop: 12/01/19 18:33 Last Infusion: 12/01/19 19:33 Dose: 0 mls/hr Documented by: [id number] Admin: 12/01/19 19:00 Dose: 240 mls/hr Documented by: [id number] Levofloxacin/Dextrose (Levaquin/D5w) 750 mg in 150 mls @ 100 mls/hr IV NOW STA Stop: 12/01/19 19:33 Last Infusion: 12/01/19 21:30 Dose: 0 mls/hr Documented by: [id number] Admin: 12/01/19 19:23 Dose: 100 mls/hr Documented by: [id number] Vancomycin HCl 1,250 mg/ (Sodium Chloride) 525 mls @ 200 mls/hr IV NOW ONE Stop: 12/01/19 20:41 Last Infusion: 12/01/19 23:08 Dose: 0 mls/hr Documented by: [id number] Admin: 12/01/19 19:25 Dose: 200 mls/hr Documented by: [id number] Ketorolac Tromethamine (Toradol) 30 mg IV NOW STA Stop: 12/01/19 17:17 Last Admin: 12/01/19 17:45 Dose: 30 mg Documented by: [id number] Morphine Sulfate (Morphine Sulfate) 6 mg IV NOW STA Stop: 12/01/19 17:17 Last Admin: 12/01/19 17:45 Dose: Not Given Documented by: [id number] Morphine Sulfate (Morphine Sulfate) Confirm Administered Dose 4 mg .ROUTE .STK- MED ONE Stop: 12/01/19 17:39 Last Admin: 12/01/19 17:45 Dose: 4 mg Documented by: [id number] Morphine Sulfate (Morphine Sulfate) Confirm Administered Dose 2 mg .ROUTE .STK- MED ONE Stop: 12/01/19 17:40 Last Admin: 12/01/19 17:45 Dose: 2 mg Documented by: [id number] Morphine Sulfate (Morphine Sulfate) 2 mg IV NOW STA Stop: 12/02/19 16:19 Last Admin: 12/02/19 16:24 Dose: 2 mg Documented by: [id number] Tramadol HCl (Ultram) 50 mg PO NOW STA Stop: 12/01/19 15:44 Last Admin: 12/01/19 16:07 Dose: 50 mg Documented by: [id number] Tramadol HCl (Ultram) 50 mg PO Q12H PRN PRN Reason: pain Stop: 12/31/19 19:26 Last Admin: 12/02/19 07:19 Dose: 50 mg Documented by: [id number] Medical Decision Making Differential Diagnosis Differential diagnosis: Etiologies such as cardiac ischemia, aortic dissection, pulmonary embolism, pneumonia, pneumothorax, musculoskeletal, infections, pericarditis, myocarditis, esophageal rupture, gastrointestinal, as well as others were entertained. Medical Records Attestation: I reviewed the patient's medical records. Home Medications Current Medication List: was personally reviewed by me Laboratory Data Attestation: I reviewed the patient's lab results. Result diagrams: 12/01/19 16:35 12/01/19 16:35 Lab Results 12/01/19 12/01/19 12/01/19 Range/Units 16:35 16:35 16:35 WBC 4.77 L (4.8-10.8) K/uL RBC 4.29 L (4.7-6.1) M/uL Hgb 10.5 L (14.0-18.0) g/dL Hct 34.5 L (42-52) % MCV 80.4 (80-100) fL MCH 24.5 L (25-34) pg MCHC 30.4 L (32-36) g/dL RDW Std Deviation 51.7 H (36.4-46.3) fL RDW Coeff of Dante 17.9 H (11.5-14.5) % Plt Count 222 (130-400) K/uL MPV 10.0 (7.4-10.4) fL Immature Gran % (Auto) 0.2 % Neut % (Auto) 78.7 % Lymph % (Auto) 13.4 % Sebastian % (Auto) 6.7 % Eos % (Auto) 0.6 % Baso % (Auto) 0.4 % Immature Gran # (Auto) 0.01 (0.00-0.02) K/uL Neut # (Auto) 3.75 (1.4-6.5) K/uL Lymph # (Auto) 0.64 L (1.2-3.4) K/uL Sebastian # (Auto) 0.32 (0.11-0.59) K/uL Eos # (Auto) 0.03 (0-0.5) K/uL Baso # (Auto) 0.02 (0-0.2) K/uL PT 12.4 H (9.0-12.0) Seconds INR 1.2 H (0.9-1.1) APTT 24.5 (21.0-31.0) Seconds PTT Ratio 0.9 Sodium 141 (136-145) mmol/L Potassium 4.0 (3.5-5.1) mmol/L Chloride 110 H (98-107) mmol/L Carbon Dioxide 23 (21-32) mmol/L Anion Gap 8.0 (3-11) BUN 24 H (7-18) mg/dl Creatinine 1.16 (0.6-1.4) mg/dl Est Cr Clr Drug Dosing 53.5 ml/min Est GFR ( Amer) 75.1 Est GFR (Non-Af Amer) 64.8 BUN/Creatinine Ratio 20.3 H (10-20) Glucose 101 H (70-99) mg/dl Lactate (0.4-2.0) mmol/L Calcium 8.7 (8.5-10.1) mg/dl Magnesium 2.1 (1.8-2.4) mg/dl Total Bilirubin 1.2 H (0.2-1) mg/dl AST 24 (15-37) U/L ALT 25 (12-78) U/L Alkaline Phosphatase 142 H (45-117) U/L Total Creatine Kinase 68 (39-308) U/L CK-MB (CK-2) 3.5 (0.5-3.6) ng/ml CK/CKMB % Calc 5.1 H (0-3.0) Troponin I 0.030 (0-0.045) ng/ml NT-Pro-B Natriuret Pep 21638 H (0-900) pg/ml Total Protein 7.9 (6.4-8.2) gm/dl Albumin 3.3 L (3.4-5.0) gm/dl Globulin 4.6 H (2.5-4.0) gm/dl Albumin/Globulin Ratio 0.7 L (0.9-2) Procalcitonin (0-0.5) ng/ml 12/01/19 12/01/19 Range/Units 16:35 16:35 WBC (4.8-10.8) K/uL RBC (4.7-6.1) M/uL Hgb (14.0-18.0) g/dL Hct (42-52) % MCV (80-100) fL MCH (25-34) pg MCHC (32-36) g/dL RDW Std Deviation (36.4-46.3) fL RDW Coeff of Dante (11.5-14.5) % Plt Count (130-400) K/uL MPV (7.4-10.4) fL Immature Gran % (Auto) % Neut % (Auto) % Lymph % (Auto) % Sebastian % (Auto) % Eos % (Auto) % Baso % (Auto) % Immature Gran # (Auto) (0.00-0.02) K/uL Neut # (Auto) (1.4-6.5) K/uL Lymph # (Auto) (1.2-3.4) K/uL Sebastian # (Auto) (0.11-0.59) K/uL Eos # (Auto) (0-0.5) K/uL Baso # (Auto) (0-0.2) K/uL PT (9.0-12.0) Seconds INR (0.9-1.1) APTT (21.0-31.0) Seconds PTT Ratio Sodium (136-145) mmol/L Potassium (3.5-5.1) mmol/L Chloride (98-107) mmol/L Carbon Dioxide (21-32) mmol/L Anion Gap (3-11) BUN (7-18) mg/dl Creatinine (0.6-1.4) mg/dl Est Cr Clr Drug Dosing ml/min Est GFR ( Amer) Est GFR (Non-Af Amer) BUN/Creatinine Ratio (10-20) Glucose (70-99) mg/dl Lactate 2.3 H* (0.4-2.0) mmol/L Calcium (8.5-10.1) mg/dl Magnesium (1.8-2.4) mg/dl Total Bilirubin (0.2-1) mg/dl AST (15-37) U/L ALT (12-78) U/L Alkaline Phosphatase (45-117) U/L Total Creatine Kinase (39-308) U/L CK-MB (CK-2) (0.5-3.6) ng/ml CK/CKMB % Calc (0-3.0) Troponin I (0-0.045) ng/ml NT-Pro-B Natriuret Pep (0-900) pg/ml Total Protein (6.4-8.2) gm/dl Albumin (3.4-5.0) gm/dl Globulin (2.5-4.0) gm/dl Albumin/Globulin Ratio (0.9-2) Procalcitonin 0.19 (0-0.5) ng/ml Imaging Data Radiologist's Impression: Radiology results as stated below per my review and the radiologist's interpretation: XR chest 1V portable CLINICAL HISTORY: SEPSIS COMPARISON STUDY: 11/10/2019 FINDINGS: The heart remains enlarged. There is improving pulmonary vascular congestion. There is a small right pleural effusion and trace left pleural effusion. There is no focal pulmonary consolidation. IMPRESSION: 1. Cardiomegaly and resolving congestive failure/fluid overload 2. No evidence of focal pulmonary consolidation 3. Persistent small right pleural effusion. Persistent trace left pleural effusion ACT 112: Negative or not required by law. Electronically signed by: Villa Almeida M.D. 12/01/2019 3:50 PM ECG Data Attestation: I personally reviewed and interpreted this ECG as follows: Indication: + weakness Rate (beats per minute): 84 Rhythm: + normal sinus ECG ST segments: no ST depression and no ST elevation ECG Findings: + Other (QTc 482); no PACs and no PVCs Blood Pressure Blood Pressure Findings: Elevated blood pressure Blood Pressure Disposition: further management by hospitalist MDM Narrative This is a 69-year-old male who presents to the emergency department complaining of generalized weakness. The patient is well-known to me and is noncompliant with his medication regimens. He was given Lasix here in the department as he does appear to be volume overloaded on chest x-ray. Due to the patient's past medical history blood cultures were obtained. I did discuss the case with the hospitalist service who did agree to admit the patient. Patient was in agreement with the treatment plan. Patient was given tramadol, morphine and Toradol in the emergency department for his pain. Repeat examination revealed improvement the patient's symptoms Impression & Plan Lymphedema of right lower extremity, Schizophrenia, Chronic systolic CHF (congestive heart failure) Discharge Plan Visit Data *Final* Discharge Date/Time: 12/01/19 19:07 Chief Complaint: Illness Stated Complaint: ILLNESS, WEAK, TIRED, BODY ACHES ED Provider: Hitesh Hernandez Discharge Problem: Lymphedema of right lower extremity, Schizophrenia, Chronic systolic CHF (congestive heart failure) Patient Disposition: Admitted As Inpatient Discharge Instructions Interventions: ED Discharge Assessment Last Done: 12/01/19 19:07 Discharge Problem: Schizophrenia Qualifiers: Schizophrenia type: unspecified Qualified Code(s): F20.9 - Schizophrenia, unspecified The scribe's documentation has been prepared under my direction and personally reviewed by me in its entirety. I confirm that the note above accurately reflects all work, treatment, procedures, and medical decision making performed by me.
[2019-12-03] MEDS: TRAMADOL HCL 50 MG TABLET PO PRN ×5 (01:16→20:15)
[2019-12-03] MEDS: ENOXAPARIN INJ 40 MG/0.4 ML SYR SQ SCH (08:57)
[2019-12-03] MEDS: ASPIRIN 81 MG ECTAB PO SCH (08:57)
[2019-12-03] MEDS: PRASugrel TAB 10 MG TAB PO SCH (08:58)
[2019-12-03] MEDS: METOPROLOL SUCC 25MG EXT REL TAB PO SCH ×2 (08:58→20:15)
[2019-12-03] MEDS: lisinopriL 5 MG TAB PO SCH (08:58)
[2019-12-03] MEDS: FUROSEMIDE 40 MG TAB PO SCH (08:59)
--- NOTE | 2019-12-03 10:42 | Electrocardiogram Report ---
Test Reason : Blood Pressure : / mmHG Vent. Rate : 076 BPM Atrial Rate : 076 BPM P-R Int : 170 ms QRS Dur : 094 ms QT Int : 438 ms P-R-T Axes : 077 078 070 degrees QTc Int : 492 ms Normal sinus rhythm Prolonged QT Abnormal ECG When compared with ECG of 02-DEC-2019 07:10, QRS axis Shifted right Confirmed by Viktor Ingram ([id number] on 12/03/2019 10:41:40 AM Referred By: REFERRED SELF Confirmed By:Viktor Ingram
[2019-12-03 11:22] LABS: Basophils # (auto) 0.01 K/uL (0-0.2); Basophils % (auto) 0.2 %; Eosinophils # (auto) 0.03 K/uL (0-0.5); Eosinophils % (auto) 0.7 %; Hemoglobin 9.7 g/dL (14.0-18.0); Immature Granulocytes # (auto) 0.02 K/uL (0.00-0.02); Immature Granulocytes % (auto) 0.5 %; Lymphocytes # (auto) 0.28 K/uL (1.2-3.4); Lymphocytes % (auto) 6.9 %; Mean Corpuscular Hemoglobin 24.5 pg (25-34); Mean Corpuscular Hgb Conc 30.3 g/dL (32-36); Mean Corpuscular Volume 80.8 fL (80-100); Mean Platelet Volume 9.7 fL (7.4-10.4); Monocytes % (auto) 9.9 %; Neutrophils # (auto) 3.31 K/uL (1.4-6.5); Neutrophils % (auto) 81.8 %; Platelet Count 149 K/uL (130-400); RDW Coefficient of Variation 18.4 % (11.5-14.5); RDW Standard Deviation 53.8 fL (36.4-46.3); Red Blood Count 3.96 M/uL (4.7-6.1); White Blood Count 4.05 K/uL (4.8-10.8)
[2019-12-03 11:45] LABS: BUN Creatinine Ratio 25.8 (10-20); Calcium 8.5 mg/dl (8.5-10.1); Creatinine Clr Calc Pharmacy 53.9 ml/min; Est GFR (African American) 72.1; Est GFR (Non-African American) 62.2; Magnesium 2.2 mg/dl (1.8-2.4); Potassium 4.7 mmol/L (3.5-5.1)
--- NOTE | 2019-12-03 12:49 | Infectious Disease Consult ---
Date of Consultation December 03, 2019 Assessment & Plan (1) Ischemic cardiomyopathy: unclear if veg vs myxoma, repeat echo pending. would suspect he would be clnically ill, febrile, with embolic disease if all TV changes to due infection, especially since he has been off of abx for weeks. 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 carido following, will continue vanco for now, follo repeat cultures, negative to date. await echo findings. (2) Tricuspid regurgitation: History of Present Illness Attending Physician: Meredith Gonzalez MD pt admitted with sob. was recently admitted for cardiac issues, noncompliant with meds. 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 Repeat echo done this am and is pending. pt now agreeable to vanco and this has been started by primary service. wbc 11/2 -4, creat 1.1 afebrile off of abx, procalcitonin negative. concern for myxoma due to large size, repeat echo pending. CXR and blood cultures from 12/01 negative. pt states he is anxious and feels his breathing is frantic, denies cp, sob, farah, cough. no abd pain, no n/v/d. no f/c. Allergies Allergy/AdvReac Type Severity Reaction Status Date / Time horse dander Allergy Unknown HORSE HAIR Verified 12/01/19 16:02 tetanus toxoid, adsorbed Allergy Unknown Unknown Verified 12/01/19 16:02 Home Medications Home Medications Medication Instructions Recorded Confirmed Type aspirin [Ecotrin Low Strength] 81 mg PO QAM #30 tab 07/16/19 12/01/19 Rx nitroglycerin [Nitrostat] 0.4 mg SUBLINGUAL PRN PRN #30 tab 07/16/19 12/01/19 Rx prasugrel [Effient] 10 mg PO QAM #30 tab 07/16/19 12/01/19 Rx tramadol 50 mg PO Q12H PRN #5 tab 10/23/19 12/01/19 Rx atorvastatin [Lipitor] 80 mg PO HS 11/10/19 12/01/19 History furosemide [Lasix] 40 mg PO DAILY #30 tab 11/18/19 12/01/19 Rx lisinopril [Zestril] 5 mg PO QAM #30 tab 11/18/19 12/01/19 Rx metoprolol succinate 25 mg PO BID #60 tab 11/18/19 12/01/19 Rx Patient History Medical History CAD (coronary artery disease) Cholecystitis, acute Chronic systolic CHF (congestive heart failure) (Acute) History of DVT (deep vein thrombosis) History of pancreatitis History of testicular cancer History of tobacco abuse Homelessness HTN (hypertension) (Chronic) "declines to take medication" Hypertension Hyperthyroidism Ischemic cardiomyopathy Lymphedema of right lower extremity (Acute) Mitral regurgitation Pleural effusion Schizophrenia (Acute) STEMI (ST elevation myocardial infarction) Tricuspid regurgitation Surgical History Hx of heart artery stent Status post cardiac catheterization Family History Other Unknown family medical history Social History Preferred Language: Greek Communication Ability: Effective Contract Negotiation Specialist Required: No Beliefs That Will Affect Care: None marital status: Current Living Situation: Alone Current Living Situation Comment: apartment Feels Safe at Home: No Is there a partner from a previous relationship who is making you feel unsafe now?: No Safety Concerns: Afraid for Self Smoking Status: Former smoker Number of Years Since Quit: 10 ; Second Hand Exp osure: No ; Hx Alcohol Use: No Hx Substance Use: No Review of Systems Review of Systems: All systems reviewed & are unremarkable except as noted in HPI & below Physical Exam Constitutional: WD/WN, vitals as above Eyes: PERRL, conjunctivae normal, anicteric sclerae ENMT: external ear and nose normal, oropharynx normal Neck: normal visual inspection Respiratory: normal respiratory effort, lungs clear to auscultation Cardiovascular: RRR, no murmur, no edema Gastrointestinal (Abdomen): normal bowel sounds, soft, nontender, no hepatosplenomegaly Musculoskeletal: no cyanosis or clubbing, extremities motor strength 5/5 Skin: no rashes, warm and dry Psychiatric: A+Ox3, euthymic affect Results & Data Vital Signs (Past 12 Hours) Vital Signs Temp Pulse Pulse Resp BP Pulse Ox 12/03/19 10:54 36.3 C L 72 19 116/79 100 12/03/19 07:03 74 12/03/19 07:01 36.5 C 71 17 117/73 97 12/03/19 04:18 36.7 C 80 16 116/79 93 Laboratory Results Microbiology 12/01/19 16:35 Blood Aerobic Blood Culture - Preliminary No growth in Aerobic bottle after 24 hours. 12/01/19 16:35 Blood Anaerobic Blood Culture - Preliminary No growth in Anaerobic bottle after 24 hours. 12/01/19 16:35 Blood Aerobic Blood Culture - Preliminary No growth in Aerobic bottle after 24 hours. 12/01/19 16:35 Blood Anaerobic Blood Culture - Preliminary No growth in Anaerobic bottle after 24 hours. PG Care Time/CCT Total # of Minutes Spent Total Time Spent with Patient: Total time spent is greater than 50% in coordination of care (as documented) at patient's floor/unit and/or counseling patient:
--- NOTE | 2019-12-03 15:17 | Hospitalist Progress Note ---
Date of Service December 03, 2019 Assessment & Plan (1) Ischemic cardiomyopathy: Ischemic cardiomyopathy with LVEF 15-20%. Not always compliant with diuretic regimen. IV furosemide ordered in ED. Continue lisinopril and metoprolol succinate. Follow exam, fluid status, weights. Denies any symptoms this morning Has been diuresing enough and denies any shortness of breath at rest We will get echocardiogram to evaluate LV function (2) CAD (coronary artery disease): No anginal symptoms. No acute EKG changes. Troponin normal. Continue aspirin, prasugrel, metoprolol, lisinopril, statin. 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 Blood culture grew coag neg Staph. 6 week course of IV vancomycin recommended, but patient declined. Check repeat blood cultures-pending. Resume IV vancomycin-continued Detailed discussion with the patient about the echo findings Will repeat echocardiogram and discussed with the reservoir engineering manager about the echo findings Suspect more of myxoma than of infective endocarditis (4) Lymphedema of right lower extremity: Chronic lymphedema of RLE with draining ulcers. Consult Wound Care Nursing to follow. No antibiotic is given (5) Diarrhea: Patient reports frequent loose stools. Check stool for C diff-pending Paranoid schizophrenia Does not have any acute schizophrenic symptoms Part of his fear of medications and compliance is likely related to schizophrenia (6) DVT prophylaxis: SQ heparin. Ambulate. Subjective 12/02/2019 He is a 69-year-old male with significant past medical history of recently diagnosed ischemic cardiomyopathy with EF of 15 to 20%, paranoid schizophrenia, lymphedema with bilateral right more than left lower extremity cellulitis and homelessness was admitted yesterday with weakness and shortness of breath. He complains to have aches and pains all over the body Denies any chest pain and/or palpitation Denies any fever and/or chills 12/03/2019 Patient was seen and examined in telemetry unit He is worried that he is Ultram has been decreased to half He did not ask for any intravenous pain medications today Clinically stable and denies any significant symptoms Review of Systems Review of Systems: All systems reviewed and are unremarkable except as noted below Constitutional: + fatigue and + weakness; no fever and no weight loss Respiratory: + dyspnea; no cough (rare) Cardiovascular: + edema; no palpitations Additional Comments: no anginal symptoms Gastrointestinal: + diarrhea/loose stools (frequent); no nausea, no vomiting, no constipation, no blood in stools and no melena Musculoskeletal: + joint pain; no myalgia Integumentary: chronic swelling / drainage RLE Neurologic: Likely has some schizophrenia symptoms but nothing acute Psychiatric: + depression Thought insertion Hematologic / Lymphatic: + easy bruising; no easy bleeding and no lymp hadenopathy Physical Exam Physical Exam: Lying in bed comfortably Constitutional: + thin and + disheveled; no acute distress Eyes: PERRL, conjunctivae normal, anicteric sclerae ENMT: external ear and nose normal, oropharynx normal Mouth: + dentition abnormality (poor dentition) Neck: trachea midline, no thyromegaly Respiratory: no respiratory distress Auscultation: + rales Cardiovascular: Rate/Rhythm: regular rate and regular rhythm Heart Sounds: + murmur (II/ sys murmur LSB); no cardiac rub Vessels: + JVD Extremities: normal capillary refill and + edema (R > L); no calf tenderness Gastrointestinal (Abdomen): normal bowel sounds, soft, nontender, no hepato splenomegaly Musculoskeletal: Head/Neck/Chest: neck supple Extremities: no cyanosis and no clubbing Psychiatric: Orientation: alert and oriented x 3 Lymphatic: no cervical lymphadenopathy Results & Data Vital Signs (Past 12 Hours) Vital Signs Temp Pulse Pulse Resp BP Pulse Ox 12/03/19 15:10 73 12/03/19 15:00 36.4 C L 69 20 136/91 96 12/03/19 10:54 36.3 C L 72 19 116/79 100 12/03/19 07:03 74 12/03/19 07:01 36.5 C 71 17 117/73 97 12/03/19 04:18 36.7 C 80 16 116/79 93 Laboratory Results Short CBC 12/03/19 Range/Units 11:11 WBC 4.05 L (4.8-10.8) K/uL Hgb 9.7 L (14.0-18.0) g/dL Hct 32.0 L (42-52) % Plt Count 149 (130-400) K/uL BMP 12/03/19 11:11 Sodium 141 Potassium 4.7 D Chloride 112 H Carbon Dioxide 23 BUN 31 H Creatinine 1.20 Glucose 95 Calcium 8.5 Medications Administered Current Inpatient Medications Aspirin (Ecotrin Ectab) 81 mg PO QAM [facility] Stop: 01/01/20 08:59 Last Admin: 12/03/19 08:57 Dose: Not Given Documented by: Atorvastatin Calcium (Lipitor) 80 mg PO HS [facility] Stop: 12/31/19 20:59 Last Admin: 12/02/19 20:00 Dose: 80 mg Documented by: Enoxaparin Sodium (Lovenox) 40 mg SQ QAM [facility] Stop: 01/01/20 08:59 Last Admin: 12/03/19 08:57 Dose: Not Given Documented by: Furosemide (Lasix) 40 mg PO DAILY [facility] Stop: 01/01/20 08:59 Last Admin: 12/03/19 08:59 Dose: Not Given Documented by: Lisinopril (Zestril) 5 mg PO QAM [facility] Stop: 01/01/20 08:59 Last Admin: 12/03/19 08:58 Dose: 5 mg Documented by: Metoprolol Succinate (Toprol Xl) 25 mg PO BID [facility] Stop: 12/31/19 20:59 Last Admin: 12/03/19 08:58 Dose: 25 mg Documented by: Nitroglycerin (Nitrostat) 0.4 mg SL PRN PRN PRN Reason: chest pain Stop: 12/31/19 19:26 Prasugrel (Effient) 10 mg PO QAM [facility] Stop: 01/01/20 08:59 Last Admin: 12/03/19 08:58 Dose: 10 mg Documented by: Tramadol HCl (Ultram) 50 mg PO Q4H PRN PRN Reason: pain Stop: 01/01/20 16:19 Last Admin: 12/03/19 14:55 Dose: 50 mg Documented by:
[2019-12-03] MEDS: ATORVASTATIN 40 MG TAB PO SCH (20:15)
[2019-12-04] MEDS: TRAMADOL HCL 50 MG TABLET PO PRN ×5 (00:35→21:04)
[2019-12-04] MEDS: ASPIRIN 81 MG ECTAB PO SCH (08:57)
[2019-12-04] MEDS: METOPROLOL SUCC 25MG EXT REL TAB PO SCH ×2 (08:57→21:02)
[2019-12-04] MEDS: ENOXAPARIN INJ 40 MG/0.4 ML SYR SQ SCH (08:58)
[2019-12-04] MEDS: PRASugrel TAB 10 MG TAB PO SCH (08:58)
[2019-12-04] MEDS: FUROSEMIDE 40 MG TAB PO SCH (08:58)
[2019-12-04] MEDS: lisinopriL 5 MG TAB PO SCH (08:59)
--- NOTE | 2019-12-04 10:40 | Infectious Disease Progress Nt ---
Date of Service December 04, 2019 Assessment & Plan (1) Ischemic cardiomyopathy: unclear if veg vs myxoma, repeat echo unchanged. would suspect he would be clnically ill, febrile, with embolic disease if all TV changes to due infection, especially since he has been off of abx for weeks. 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 carido following, will continue vanco for now, follo repeat cultures, negative to date. (2) Tricuspid regurgitation: Subjective cultures negative, afebrile. echo unchanged 1cm non mobile mass on TV Results & Data Vital Signs (Past 12 Hours) Vital Signs Temp Pulse Pulse Resp BP Pulse Ox 12/04/19 07:10 62 12/04/19 07:01 36.5 C 67 19 105/70 99 12/04/19 04:48 36.5 C 67 16 99/70 L 93 12/03/19 23:04 36.5 C 67 16 120/77 98 Laboratory Results Microbiology 12/01/19 16:35 Blood Aerobic Blood Culture - Preliminary No growth in Aerobic bottle after 48 hours. 12/01/19 16:35 Blood Anaerobic Blood Culture - Preliminary No growth in Anaerobic bottle after 48 hours. 12/01/19 16:35 Blood Aerobic Blood Culture - Preliminary No growth in Aerobic bottle after 48 hours. 12/01/19 16:35 Blood Anaerobic Blood Culture - Preliminary No growth in Anaerobic bottle after 48 hours. PG Care Time/CCT Total # of Minutes Spent Total Time Spent with Patient: Total time spent is greater than 50% in coordination of care (as documented) at patient's floor/unit and/or counseling patient:
[2019-12-04] MEDS ORDERED: ACETAMINOPHEN 1,000 MG/100 ML VIAL IV ONE (16:30)
[2019-12-04] MEDS ORDERED: FUROSEMIDE 20 MG in SYRINGE 0 ML IV ONE (16:45)
[2019-12-04] MEDS: ONDANSETRON INJ 2 MG/ML 2 ML VIAL IV PRN (16:59)
--- NOTE | 2019-12-04 19:11 | Hospitalist Progress Note ---
Date of Service December 04, 2019 Assessment & Plan (1) Ischemic cardiomyopathy: Ischemic cardiomyopathy with LVEF 15-20%. Non compliant with diuretic regimen. Received IV furosemide in ED. Continue lisinopril and metoprolol succinate. Refused Oral lasix Denies any symptoms overload ECHO showed LV is severely dilated with EF 15-20 % Severe global Hypokinesis of left ventricles Will give Lasix 20mg IVx1 today Will continue monitor closely (2) CAD (coronary artery disease): No anginal symptoms. No acute EKG changes. Troponin normal. Continue aspirin, prasugrel, metoprolol, lisinopril, statin. 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 Blood culture grew coag neg Staph on 11/10 6 week course of IV vancomycin recommended, but patient declined. Blood cultures negative so far Repeat ECHO showed non mobile mass on the atrial surface Suspect more of myxoma than of infective endocarditis since pt does not look toxic because he has not been on abx for about 1 month Will discuss with cardiology for possible JOEL (4) Lymphedema of right lower extremity: Chronic lymphedema of RLE with draining ulcers. Consult Wound Care Nursing to follow. No antibiotic is given (5) Diarrhea: Patient reports frequent loose stools. Diarrhea improves Paranoid schizophrenia Does not have any acute schizophrenic symptoms Part of his fear of medications and compliance is likely related to schizophrenia Psych as been consulted multiple times for schizophrenia management (6) DVT prophylaxis: On Lovenox Ambulate. Subjective Pt was seen and examined Lying in bed with no distress Pt said that he wants IV pain med He said that the TV is sending him a signal when the volume is up He muted the TV to avoid getting any signal from it He refused to take his oral medication and his lasix After speaking to him, he agreed to take IV lasix Denies any chest pain, palpitation and SOB Physical Exam Physical Exam: General- No acute distress Head- atraumatic Eyes- PERRL, EOMI, ENT- Poor dentition Neck- supple, no JVD Lungs- clear to auscultation Heart- regular rhythm; +murmur Abdomen- normal bowel sounds, soft, nontender Extremities- no calf tenderness, Chronic bilateral LE swelling RLE greater than the left Neuro- alert, oriented x 3; PERRL, EOMI; no facial palsy; no dysarthria Skin- warm & dry Results & Data Vital Signs (Past 12 Hours) Vital Signs Temp Pulse Pulse Resp BP Pulse Ox 12/04/19 19:06 36.4 C L 62 17 95/61 L 99 12/04/19 15:16 62 12/04/19 15:12 36.4 C L 70 20 116/82 97 12/04/19 10:57 36.4 C L 67 18 107/76 91
[2019-12-04] MEDS: ATORVASTATIN 40 MG TAB PO SCH (21:04)
[2019-12-05] MEDS: ASPIRIN 81 MG ECTAB PO SCH (08:46)
[2019-12-05] MEDS: ENOXAPARIN INJ 40 MG/0.4 ML SYR SQ SCH (08:51)
[2019-12-05] MEDS: lisinopriL 5 MG TAB PO SCH (08:51)
[2019-12-05] MEDS: METOPROLOL SUCC 25MG EXT REL TAB PO SCH ×2 (08:54→22:00)
[2019-12-05] MEDS: PRASugrel TAB 10 MG TAB PO SCH (08:54)
[2019-12-05] MEDS: ONDANSETRON INJ 2 MG/ML 2 ML VIAL IV PRN ×2 (08:54→14:25)
[2019-12-05] MEDS ORDERED: ACETAMINOPHEN 1,000 MG/100 ML VIAL IV STA (09:07)
[2019-12-05] MEDS: FUROSEMIDE 40 MG TAB PO SCH (09:07)
--- NOTE | 2019-12-05 09:25 | Infectious Disease Progress Nt ---
Date of Service December 05, 2019 Assessment & Plan (1) Ischemic cardiomyopathy: unclear if veg vs myxoma, repeat echo unchanged. would suspect he would be clnically ill, febrile, with embolic disease if all TV changes to due infection, especially since he has been off of abx for weeks. 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 satishido following, will continue vanco for now, follo repeat cultures, negative to date. (2) Tricuspid regurgitation: Subjective remains afebrile with negative blood cultures, JOEL being considered. Results & Data Vital Signs (Past 12 Hours) Vital Signs Temp Pulse Resp BP Pulse Ox 12/05/19 07:05 36.4 C L 60 18 95/66 L 97 12/05/19 03:44 36.4 C L 57 L 18 92/56 L 100 12/04/19 23:59 36.4 C L 56 L 18 90/62 L 98 Laboratory Results Microbiology 12/01/19 16:35 Blood Aerobic Blood Culture - Preliminary No growth in Aerobic bottle after 48 hours. 12/01/19 16:35 Blood Anaerobic Blood Culture - Preliminary No growth in Anaerobic bottle after 48 hours. 12/01/19 16:35 Blood Aerobic Blood Culture - Preliminary No growth in Aerobic bottle after 48 hours. 12/01/19 16:35 Blood Anaerobic Blood Culture - Preliminary No growth in Anaerobic bottle after 48 hours. PG Care Time/CCT Total # of Minutes Spent Total Time Spent with Patient: Total time spent is greater than 50% in coordination of care (as documented) at patient's floor/unit and/or counseling patient:
[2019-12-05] MEDS: TRAMADOL HCL 50 MG TABLET PO PRN (14:25)
--- NOTE | 2019-12-05 19:54 | Hospitalist Progress Note ---
Date of Service December 05, 2019 Assessment & Plan (1) Ischemic cardiomyopathy: Ischemic cardiomyopathy with LVEF 15-20%. Non compliant with diuretic regimen. Received IV furosemide in ED. Continue lisinopril and metoprolol succinate. Continue to refused Oral lasix Denies any symptoms overload ECHO showed LV is severely dilated with EF 15-20 % Severe global Hypokinesis of left ventricles Will continue monitor closely (2) CAD (coronary artery disease): No anginal symptoms. No acute EKG changes. Troponin normal. Continue aspirin, prasugrel, metoprolol, lisinopril, statin. 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 Blood culture grew coag neg Staph on 11/10 6 week course of IV vancomycin recommended, but patient declined. Blood cultures negative so far Repeat ECHO showed non mobile mass on the atrial surface Suspect more of myxoma than of infective endocarditis since pt does not look toxic because he has not been on abx for about 1 month Case discussed with cardiology and reviewed the echo again- showed non mobile mass Will hold on JOEL for now since blood cx negative during this admission, afebrie and no leukocytosis (4) Lymphedema of right lower extremity: Chronic lymphedema of RLE with draining ulcers. Consult Wound Care Nursing to follow. No antibiotic is given (5) Diarrhea: Patient reports frequent loose stools. Diarrhea improves Paranoid schizophrenia Does not have any acute schizophrenic symptoms Part of his fear of medications and compliance is likely related to schizophrenia Psych as been consulted multiple times for schizophrenia management (6) DVT prophylaxis: On Lovenox Ambulate. Subjective Pt was seen and examined Lying in bed with no distress Pt said that he feels much better today He said that the IV med (IV tylenol) that he is getting work very well He said that he slept well last night Denies any chest pain, palpitation, dizziness and SOB Physical Exam Physical Exam: General- No acute distress Head- atraumatic Eyes- PERRL, EOMI, ENT- Poor dentition Neck- supple, no JVD Lungs- clear to auscultation Heart- regular rhythm; +murmur Abdomen- normal bowel sounds, soft, nontender Extremities- no calf tenderness, Chronic bilateral LE swelling RLE greater than the left Neuro- alert, oriented x 3; PERRL, EOMI; no facial palsy; no dysarthria Skin- warm & dry Results & Data Vital Signs (Past 12 Hours) Vital Signs Temp Pulse Pulse Resp BP BP Pulse Ox 12/05/19 19:01 36.5 C 56 L 19 94/64 L 97 12/05/19 15:53 60 12/05/19 15:15 36.5 C 56 L 18 96/62 L 95 12/05/19 11:38 36.5 C 55 L 18 94/60 L 96
[2019-12-05] MEDS: ATORVASTATIN 40 MG TAB PO SCH ×2 (22:01→22:11)
[2019-12-05 23:24] LABS: BUN Creatinine Ratio 24.9 (10-20); Calcium 8.4 mg/dl (8.5-10.1); Creatinine Clr Calc Pharmacy 27.3 ml/min; Est GFR (African American) 31.3; Magnesium 2.4 mg/dl (1.8-2.4); Potassium 5.8 mmol/L (3.5-5.1)
[2019-12-05] MEDS ORDERED: CALCIUM GLUCONATE 10% 1,000 MG in SODIUM CHLORIDE 0.9% 50 ML IV STA (23:24)
[2019-12-05] MEDS ORDERED: SODIUM CHLORIDE 0.9% 500 ML IV ONE (23:26)
--- NOTE | 2019-12-05 23:27 | Communication Note ---
Date of Service: December 05, 2019 Poor urine output as per RN. SBP 90/60, pulse rate 50s. Serum potassium noted to be 5.8 Serum creatinine noted to be 2.39. AP ARF secondary to overdiuresis Hyperkalemia secondary to above, medications contributory Stop Lasix, ACEI for now EKG now, calcium gluconate 1 dose Gentle IVF Follow renal function, renal ultrasound if without improvement Regular insulin for hyperkalemia Patient updated of of developments at bedside and rationale behind new medications. I informed patient of possibility of if medications if he refuses adminis tration of above medications. He will contemplate recommendations. Will relay to AM provider.
[2019-12-06 00:10] LABS: Thyroid Stimulating Hormone 24.9 uIu/ml (0.300-4.500)
[2019-12-06] MEDS ORDERED: ALBUMIN 25% 50 ML IV ONE (00:29)
[2019-12-06] MEDS ORDERED: DEXTROSE 50% 50 ML SYRINGE IV ONE ×2 (00:29→21:30)
[2019-12-06 00:30] LABS: T4 Free Thyroxine 0.93 ng/dl (0.8-1.6)
[2019-12-06] MEDS ORDERED: INSULIN HUMAN REGULAR PER UNIT 5 UNITS in SYRINGE 4.95 ML IV ONE ×2 (00:45→21:30)
[2019-12-06] MEDS: TRAMADOL HCL 50 MG TABLET PO PRN ×3 (01:11→20:27)
[2019-12-06] MEDS: HEPARIN SOD 5,000 UNIT/0.5 ML VIAL SQ SCH ×3 (05:57→20:28)
[2019-12-06 06:26] LABS: Hematocrit (blood only) 32.3 % (42-52); Hemoglobin 9.8 g/dL (14.0-18.0); Mean Corpuscular Hemoglobin 24.6 pg (25-34); Mean Corpuscular Hgb Conc 30.3 g/dL (32-36); Nucleated RBC # (auto) 0.05 K/uL (0-0); Nucleated RBC % (auto) 0.8 %; Platelet Count 175 K/uL (130-400); RDW Coefficient of Variation 18.3 % (11.5-14.5); RDW Standard Deviation 53.9 fL (36.4-46.3); Red Blood Count 3.99 M/uL (4.7-6.1); White Blood Count 5.89 K/uL (4.8-10.8)
[2019-12-06 06:57] LABS: BUN Creatinine Ratio 23.9 (10-20); Calcium 8.7 mg/dl (8.5-10.1); Creatinine Clr Calc Pharmacy 26.5 ml/min; Est GFR (Non-African American) 25.9; Potassium 5.9 mmol/L (3.5-5.1)
[2019-12-06 07:43] LABS: Appearance Urine Cloudy (Clear); Bacteria Urine Automated Negative (Negative); Blood Urine Trace (Negative); Color Urine Dark Yellow; Epithelial Cell Urine Auto >30 /lpf (0-5); Glucose Urine UA Negative (Negative); Ketones Urine Negative (Negative); Leukocyte Esterase Urine 1+ (Negative); Nitrite Urine Negative (Negative); Protein Urine 2+ (Negative); RBC Urine Automated 0-4 /hpf (0-4); Specific Gravity Urine 1.025 (1.000-1.030); Urobilinogen Urine Negative (Negative); WBC Urine Automated >30 /hpf (0-5)
[2019-12-06] MEDS: ASPIRIN 81 MG ECTAB PO SCH (07:51)
[2019-12-06] MEDS: PRASugrel TAB 10 MG TAB PO SCH (07:51)
[2019-12-06 07:57] LABS: Bilirubin Urine 1+ (Negative)
[2019-12-06 07:59] LABS: Ictotest Urine Positive (Negative)
[2019-12-06 08:03] LABS: Mucus Urine Present (None Prsent); Renal Epithelial Cells Urine 0-5 /lpf (0-5)
[2019-12-06] MEDS: METOPROLOL SUCC 25MG EXT REL TAB PO SCH ×2 (09:38→20:31)
[2019-12-06] MEDS: ONDANSETRON INJ 2 MG/ML 2 ML VIAL IV PRN ×2 (11:58→20:28)
--- NOTE | 2019-12-06 16:03 | Communication Note ---
Date of Service: December 06, 2019 69-year-old male admitted medically on 12/01/2019 after presenting to the ED with weakness and shortness of breath. Pt has a significant cardiac history, with poor compliance with medications and follow-up appointments due to chronic homeless status. Patient is well-known to our psychiatric service from several previous hospitalizations. Patient has a historical diagnosis of schizophrenia, paranoid type for which he has consistently refused medications or outpatient psychiatric treatment. While there is some underlying delusional thought marine nt displayed at times, it is historically been felt that patient's behavior, functioning, and decision-making capacity has been at baseline. Several previous assessments regarding capacity to refuse various medications have been completed both by our service and by palliative care. Request was received on 12/06/2019 for psychiatric evaluation of capacity to refuse medications. Attempts were made to further clarify this question via conversations with both consulting physician and case management services. It is reported that the patient, who is previously had a long history of homelessness, is requesting placement in a fci facility at this time. This recommendation has been made to the patient on numerous occasions; however, patient continued to verbalize desire to return to the [facility]. It appears that case management has initiated requests for transfer to various facilities; however, patient's documented refusal of medications has been presented as a concern. We will ask psychiatric nurse liaison to further clarify whether there is a particular concern, or if the capacity assessment applies to all recommended medications. Patient was seen for initial psychiatric nurse liaison evaluation. It was reported that patient appeared mildly altered and sedated, interfering with ability to appropriately participate in conversation. It was reported that patient had received an as needed dose of tramadol just prior to their interaction, and that this is not an unusual response to this medication based on the patient's history. Given request for psychiatric consultation revolves around patient's decision-making capabilities, it was felt to be an inappropriate time to assess patient's capacity for any significant medical decision. We would be happy to weigh in on this topic further; however, will need to interview patient when he is closer to the baseline cognitive functioning witnessed during this hospitalization. Of note: We are requesting that additional information be provided regarding specific medical decision being question. There is a significant difference in risks and potential adverse outcomes of refusing each medication on the patient's medication list. It is reasonable to believe that patient may have capacity to refuse certain medications while lacking capacity to refuse others. It would be helpful to know if this determination is requested to broadly assess his medication regimen, or if there is a specific medication of concern.Historically patient's decision-making process, while not the decision most individuals may decide, has been based in rational thinking for the patient (i.e. concern regarding side effects, anxiety about medication interactions, and concerns about obtaining medications after discharge due to previous homeless status). In the recent past, it has not been felt that patient's refusal of medication recommendations has been directly-linked to a primary psychiatric condition. While it is certainly reasonable for re-evaluation to be requested, there is no reported evidence at this time to suggest patient's rationale for medication refusal has changed substantially. As a reminder, any medical provider involved in the patient's care can make a determination regarding capacity to make a specific treatment decision at a specific point in time. Capacity for appropriate medical decision-making can vary based on patient's present state, but also on the weight of the specific decision being questioned. In order for a patient to have capacity to make a specific treatment decision, they must meet the four following criteria: ability to recall/understand information related to the decision being made, appreciate their condition as well as the consequences of their decision, demonstrate ability to rationally process information being provided, and clearly communicate a choice. It would be helpful to have discussions on this topic clearly documented; including recommendations by provider, risks and benefits associated with the decision, patient's verbalized choice, and initial thoughts regarding patient's perceived understanding of the conversation. We would also be happy to coordinate our consultation visit to occur at time of this conversation, in order to best facilitate a clear understanding of patient's present capacity. Will sign-out patient's case to on-call weekend psychiatrist for further review, as patient was unable to be properly evaluated for capacity today. Please reach out to our service with any additional information, questions, or concerns. Historically, patient has not demonstrated behavior to suggest he would be psychiatrically inappropriate for transfer to an SNF. Dr. Orlando Casillas was directly involved in review and discussion of the patient's case and participated in medical decision making regarding treatment recommendations.
--- NOTE | 2019-12-06 19:42 | Hospitalist Progress Note ---
Date of Service December 06, 2019 Assessment & Plan (1) Ischemic cardiomyopathy: Ischemic cardiomyopathy with LVEF 15-20%. Non compliant with diuretic regimen. Received IV furosemide in ED. Continue lisinopril and metoprolol succinate. Continue to hold lasix due to worsening creatinine Denies any symptoms overload ECHO showed LV is severely dilated with EF 15-20 % Severe global Hypokinesis of left ventricles Will continue monitor closely (2) CAD (coronary artery disease): No anginal symptoms. No acute EKG changes. Troponin normal. Continue aspirin, prasugrel, metoprolol, lisinopril, statin. 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 Blood culture grew coag neg Staph on 11/10 6 week course of IV vancomycin recommended, but patient declined. Blood cultures negative so far Repeat ECHO showed non mobile mass on the atrial surface Suspect more of myxoma than of infective endocarditis since pt does not look toxic because he has not been on abx for about 1 month Case discussed with cardiology and reviewed the echo again- showed non mobile mass Will hold on JOEL for now since blood cx negative during this admission, afebrie and no leukocytosis (6) Lymphedema of right lower extremity: Chronic lymphedema of RLE with draining ulcers. Consult Wound Care Nursing to follow. No antibiotic is given (7) Diarrhea: Patient reports frequent loose stools. Diarrhea improves Paranoid schizophrenia Does not have any acute schizophrenic symptoms Part of his fear of medications and compliance is likely related to schizophrenia Psych as been consulted multiple times for schizophrenia management (8) DVT prophylaxis: On Lovenox Ambulate. Subjective Pt was seen and examined Lying in bed with no distress Refused to take medication today and IVF Very poor oral intake Denies any chest pain, palpitation, dizziness and SOB Physical Exam Physical Exam: General- No acute distress Head- atraumatic Eyes- PERRL, EOMI, ENT- Poor dentition Neck- supple, no JVD Lungs- clear to auscultation Heart- regular rhythm; +murmur Abdomen- normal bowel sounds, soft, nontender Extremities- no calf tenderness, Chronic bilateral LE swelling RLE greater than the left Neuro- alert, oriented x 3; PERRL, EOMI; no facial palsy; no dysarthria Skin- warm & dry Results & Data Vital Signs (Past 12 Hours) Vital Signs Temp Pulse Resp BP BP Pulse Ox 12/06/19 15:42 36.3 C L 50 L 19 124/77 100 12/06/19 11:29 36.6 C 56 L 18 93/69 L 100
[2019-12-06] MEDS: ATORVASTATIN 40 MG TAB PO SCH (20:28)
[2019-12-06 20:45] LABS: BUN Creatinine Ratio 26.8 (10-20); Creatinine Clr Calc Pharmacy 26.1 ml/min; Est GFR (African American) 29.4; Est GFR (Non-African American) 25.4; Potassium 5.9 mmol/L (3.5-5.1)
[2019-12-06] MEDS ORDERED: SODIUM CHLORIDE 0.9% 1000ML 1,000 ML IV ONE (21:10)
[2019-12-06] MEDS ORDERED: CALCIUM GLUCONATE 10% 1,000 MG in SODIUM CHLORIDE 0.9% 50 ML IV ONE (21:30)
[2019-12-07] MEDS: HEPARIN SOD 5,000 UNIT/0.5 ML VIAL SQ SCH ×3 (05:16→22:05)
[2019-12-07 06:54] LABS: BUN Creatinine Ratio 27.1 (10-20); Calcium 8.4 mg/dl (8.5-10.1); Creatinine Clr Calc Pharmacy 27.1 ml/min; Est GFR (African American) 30.6; Est GFR (Non-African American) 26.4; Potassium 6.4 mmol/L (3.5-5.1)
[2019-12-07] MEDS: METOPROLOL SUCC 25MG EXT REL TAB PO SCH ×2 (08:58→19:58)
[2019-12-07] MEDS: PRASugrel TAB 10 MG TAB PO SCH (08:59)
[2019-12-07] MEDS: ASPIRIN 81 MG ECTAB PO SCH (08:59)
[2019-12-07] MEDS ORDERED: SODIUM POLYSTYRENE SULFONATE 15G/60ML SUSP PO STA (09:00)
[2019-12-07] MEDS ORDERED: CALCIUM GLUCONATE 10% 10 ML VIAL IV STA (09:00)
[2019-12-07] MEDS: TRAMADOL HCL 50 MG TABLET PO PRN (09:01)
[2019-12-07] MEDS ORDERED: CALCIUM GLUCONATE 10% 1,000 MG in SODIUM CHLORIDE 0.9% 50 ML IV ONE (09:15)
--- NOTE | 2019-12-07 11:25 | Psychiatric Consultation ---
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 Hasn't met criteria for involuntary commitment and multiple providers have stated capacity. Impression / Recommendations Impression 69 yo male with remote history of schizophrenia, no active psychotic symptoms interfering with his medical decision making. He is psychiatrically stable for discharge to SNF level of care. There is no specific indication for psychiatric medication at this time as he is not grossly disorganized, actively hallucinating nor is he agitated. Psych History Chief Complaint "yeah, alot going on, my potassium is messed up, I'm too dry, I just get annoyed with some people". History of Present Illness 69 YO male History of coronary artery disease, ischemic cardiomyopathy, paranoid schizophrenia, and other problems as noted. Not always compliant with medical recommendations due to his concerns (non- psychotic), Prefers not to take furosemide unless absolutely necessary because it is difficult for him to get to the bathroom. Last hospitalized in October with CHF and suspected endocarditis but declined antibiotics, this stay is agreeing to necessary placement to receive IV. Homeless in the past. Followed by [facility]; currently has apartment at [facility]. Allergies Allergy/AdvReac Type Severity Reaction Status Date / Time horse dander Allergy Unknown HORSE HAIR Verified 12/01/19 16:02 tetanus toxoid, adsorbed Allergy Unknown Unknown Verified 12/01/19 16:02 Home Medications Home Medications Medication Instructions Recorded Confirmed Type aspirin [Ecotrin Low Strength] 81 mg PO QAM #30 tab 07/16/19 12/01/19 Rx nitroglycerin [Nitrostat] 0.4 mg SUBLINGUAL PRN PRN #30 tab 07/16/19 12/01/19 Rx prasugrel [Effient] 10 mg PO QAM #30 tab 07/16/19 12/01/19 Rx tramadol 50 mg PO Q12H PRN #5 tab 10/23/19 12/01/19 Rx atorvastatin [Lipitor] 80 mg PO HS 11/10/19 12/01/19 History furosemide [Lasix] 40 mg PO DAILY #30 tab 11/18/19 12/01/19 Rx lisinopril [Zestril] 5 mg PO QAM #30 tab 11/18/19 12/01/19 Rx metoprolol succinate 25 mg PO BID #60 tab 11/18/19 12/01/19 Rx Personal History Beliefs That Will Affect Care: None Patient History Medical History CAD (coronary artery disease) Cholecystitis, acute Chronic systolic CHF (congestive heart failure) (Acute) History of DVT (deep vein thrombosis) History of pancreatitis History of testicular cancer History of tobacco abuse Homelessness HTN (hypertension) (Chronic) "declines to take medication" Hypertension Hyperthyroidism Ischemic cardiomyopathy Lymphedema of right lower extremity (Acute) Mitral regurgitation Pleural effusion Schizophrenia (Acute) STEMI (ST elevation myocardial infarction) Tricuspid regurgitation Surgical History Hx of heart artery stent Status post cardiac catheterization Family History Other Unknown family medical history Social History Preferred Language: Beninese Communication Ability: Effective Pipelines Laborer Required: No Beliefs That Will Affect Care: None marital status: Current Living Situation: Alone Current Living Situation Comment: apartment Feels Safe at Home: No Is there a partner from a previous relationship who is making you feel unsafe now?: No Safety Concerns: Afraid for Self Smoking Status: Former smoker Number of Years Since Quit: 10 ; Second Hand Exposure: No ; Hx Alcohol Use: No Hx Substance Use: No Physical Exam Psychiatric: Orientation: alert, oriented to person, oriented to place and oriented to time Apperance: + disheveled Eye Contact: + fair eye contact normal rate of speech but poor dentition and lower volumed than baseline. Affect: + constricted affect states is mood is fine, just frustrated with rehospitalization. Thought Process: + concrete thought process Thought Content: no delusions Suicidal Thoughts: denies suicidal thoughts Homicidal Thoughts: denies homicidal thoughts Hallucinations: no auditory hallucinations and no visual hallucinations Cognition: attention grossly intact Insight: + limited insight Judgement: + limited judgement Vital Signs (Past 24 Hours): Last Vital Signs Temp 36.8 C 12/07/19 08:00 Pulse 62 12/07/19 08:00 Resp 20 12/07/19 08:00 BP 115/69 12/07/19 08:00 Pulse Ox 96 12/07/19 08:00 Review of Systems All systems reviewed & are unremarkable except as noted in HPI & below defer to medical. hoarse voice. Results & Data Medications Administered Aspirin (Ecotrin Ectab) 81 mg PO QAM [facility] Stop: 01/01/20 08:59 Last Admin: 12/07/19 08:59 Dose: Not Given Documented by: [id number] Admin: 12/06/19 07:51 Dose: Not Given Documented by: [id number] Admin: 12/05/19 08:46 Dose: Not Given Documented by: [id number] Admin: 12/04/19 08:57 Dose: Not Given Documented by: [id number] Admin: 12/03/19 08:57 Dose: Not Given Documented by: [id number] Admin: 12/02/19 09:38 Dose: Not Given Documented by: [id number] Atorvastatin Calcium (Lipitor) 80 mg PO [facility] Stop: 12/31/19 20:59 Last Admin: 12/06/19 20:28 Dose: 80 mg Documented by: [id number] Admin: 12/05/19 22:11 Dose: 20 mg Documented by: [id number] Admin: 12/04/19 21:04 Dose: 80 mg Documented by: [id number] Admin: 12/03/19 20:15 Dose: 80 mg Documented by: [id number] Admin: 12/02/19 20:00 Dose: 80 mg Documented by: [id number] Admin: 12/01/19 21:47 Dose: 80 mg Documented by: [id number] [facility] S[facility]) [facility] [place]: 01/01/20 08:59 Last Admin: 12/05/19 08:51 Dose: Not Given Documented by: [id number] Admin: 12/04/19 08:58 Dose: Not Given Documented by: [id number] Admin: 12/03/19 08:57 Dose: Not Given Documented by: [id number] Admin: 12/02/19 09:40 Dose: Not Given Documented by: [id number] Furosemide (Lasix) 40 mg PO DAILY [facility] Stop: 01/01/20 08:59 Last Admin: 12/05/19 09:07 Dose: Not Given Documented by: [id number] Admin: 12/04/19 08:58 Dose: Not Given Documented by: [id number] Admin: 12/03/19 08:59 Dose: Not Given Documented by: [id number] Admin: 12/02/19 09:40 Dose: Not Given Documented by: [id number] Heparin Sodium (Porcine) (Heparin Sodium (Porcine)) 5,000 units SQ Q8 [facility] Stop: 01/05/20 05:59 Last Admin: 12/07/19 05:16 Dose: Not Given Documented by: [id number] Admin: 12/06/19 20:28 Dose: Not Given Documented by: [id number] Admin: 12/06/19 13:56 Dose: Not Given Documented by: [id number] Admin: 12/06/19 05:57 Dose: Not Given Documented by: [id number] Sodium Chloride (Nss 1000ml) 1,000 mls @ 50 mls/hr IV .Q20H ONE Stop: 12/07/19 17:09 Last Admin: 12/06/19 22:15 Dose: 50 mls/hr Documented by: [id number] Lisinopril (Zestril) 5 mg PO QAM [facility] Stop: 01/01/20 08:59 Last Admin: 12/05/19 08:51 Dose: Not Given Documented by: [id number] Admin: 12/04/19 08:59 Dose: Not Given Documented by: [id number] Admin: 12/03/19 08:58 Dose: 5 mg Documented by: [id number] Admin: 12/02/19 09:40 Dose: 5 mg Documented by: [id number] Metoprolol Succinate (Toprol Xl) 12.5 mg PO BID [facility] Stop: 01/05/20 08:59 Last Admin: 12/07/19 08:58 Dose: 12.5 mg Documented by: [id number] Admin: 12/06/19 20:31 Dose: Not Given Documented by: [id number] Admin: 12/06/19 09:38 Dose: Not Given Documented by: [id number] Ondansetron HCl (Zofran) 4 mg IV ONE PRN PRN Reason: Nausea Stop: 01/03/20 16:13 Last Admin: 12/06/19 20:28 Dose: 4 mg Documented by: [id number] Admin: 12/06/19 11:58 Dose: 4 mg Documented by: [id number] Admin: 12/05/19 14:25 Dose: 4 mg Documented by: [id number] Admin: 12/05/19 08:54 Dose: 4 mg Documented by: [id number] Admin: 12/04/19 16:59 Dose: 4 mg Documented by: [id number] Prasugrel (Effient) 10 mg PO QAM [facility] Stop: 01/01/20 08:59 Last Admin: 12/07/19 08:59 Dose: 10 mg Documented by: [id number] Admin: 12/06/19 07:51 Dose: 10 mg Documented by: [id number] Admin: 12/05/19 08:54 Dose: 10 mg Documented by: [id number] Admin: 12/04/19 08:58 Dose: 10 mg Documented by: [id number] Admin: 12/03/19 08:58 Dose: 10 mg Documented by: [id number] Admin: 12/02/19 09:39 Dose: 10 mg Documented by: [id number] Tramadol HCl (Ultram) 50 mg PO Q4H PRN PRN Reason: pain Stop: 01/01/20 16:19 Last Admin: 12/07/19 09:01 Dose: 50 mg Documented by: [id number] Admin: 12/06/19 20:27 Dose: 50 mg Documented by: [id number] Admin: 12/06/19 11:56 Dose: 50 mg Documented by: [id number] Admin: 12/06/19 01:11 Dose: 50 mg Documented by: [id number] Admin: 12/05/19 14:25 Dose: 50 mg Documented by: [id number] Admin: 12/04/19 21:04 Dose: 50 mg Documented by: [id number] Admin: 12/04/19 16:58 Dose: 50 mg Documented by: [id number] Admin: 12/04/19 12:42 Dose: 50 mg Documented by: [id number] Admin: 12/04/19 07:19 Dose: 50 mg Documented by: [id number] Admin: 12/04/19 00:35 Dose: 50 mg Documented by: [id number] Admin: 12/03/19 20:15 Dose: 50 mg Documented by: [id number] Admin: 12/03/19 14:55 Dose: 50 mg Documented by: [id number] Coding Level of Care Code 37099 U Intl Hosp Care Lvl 2
--- NOTE | 2019-12-07 15:57 | Hospitalist Progress Note ---
Date of Service December 07, 2019 Assessment & Plan (1) Ischemic cardiomyopathy: Ischemic cardiomyopathy with LVEF 15-20%. Non compliant with diuretic regimen. Received IV furosemide in ED. Continue lisinopril and metoprolol succinate. Continue to hold lasix due to worsening creatinine Denies any symptoms overload ECHO showed LV is severely dilated with EF 15-20 % Severe global Hypokinesis of left ventricles Will continue monitor closely (2) CAD (coronary artery disease): No anginal symptoms. No acute EKG changes. Troponin normal. Continue aspirin, prasugrel, metoprolol, lisinopril, statin. 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 Blood culture grew coag neg Staph on 11/10 6 week course of IV vancomycin recommended, but patient declined. 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 Consult Wound Care Nursing to follow. No antibiotic is given (7) Diarrhea: Patient reports frequent loose stools. Diarrhea improves Paranoid schizophrenia Does not have any acute schizophrenic symptoms Part of his fear of medications and compliance is likely related to schizophrenia Psych consulted and does not meet inpatient psych treatment No specific indication for psychiatric medication at this time as he is not grossly disorganized, actively hallucinating nor is he agitated as per psych (8) DVT prophylaxis: On Lovenox Ambulate. Disposition Will need placement to rehab Subjective Pt was seen and examined. Lying in bed with no distress Pt refused to take the calcium gluconate last night and IVF This morning he agreed to take the IVF and the calcium gluconate after explaining to him the benefit and complication about his care Denies any chest pain, palpitation and SOB Physical Exam Physical Exam: General- No acute distress Head- atraumatic Eyes- PERRL, EOMI, ENT- Poor dentition Neck- supple, no JVD Lungs- clear to auscultation Heart- regular rhythm; +murmur Abdomen- normal bowel sounds, soft, nontender Extremities- no calf tenderness, Chronic bilateral LE swelling RLE greater than the left Neuro- alert, oriented x 3; PERRL, EOMI; no facial palsy; no dysarthria Skin- warm & dry Results & Data Vital Signs (Past 12 Hours) Vital Signs Temp Pulse Resp BP Pulse Ox 12/07/19 15:29 36.4 C L 60 19 123/79 97 12/07/19 11:29 36.4 C L 59 L 20 120/88 97 12/07/19 08:00 36.8 C 62 20 115/69 96
[2019-12-07] MEDS: ATORVASTATIN 40 MG TAB PO SCH (19:57)
[2019-12-07 20:19] LABS: Hematocrit (blood only) 33.1 % (42-52); Mean Corpuscular Hemoglobin 24.4 pg (25-34); Mean Corpuscular Hgb Conc 30.2 g/dL (32-36); Mean Corpuscular Volume 80.7 fL (80-100); Mean Platelet Volume 10.2 fL (7.4-10.4); Nucleated RBC # (auto) 0.09 K/uL (0-0); Nucleated RBC % (auto) 1.7 %; Platelet Count 179 K/uL (130-400); RDW Coefficient of Variation 18.2 % (11.5-14.5); RDW Standard Deviation 53.9 fL (36.4-46.3)
[2019-12-07 22:18] LABS: BUN Creatinine Ratio 29.6 (10-20); Calcium 8.5 mg/dl (8.5-10.1); Creatinine Clr Calc Pharmacy 31.3 ml/min; Est GFR (African American) 36.4; Est GFR (Non-African American) 31.4; Magnesium 2.5 mg/dl (1.8-2.4); Potassium 5.7 mmol/L (3.5-5.1)
[2019-12-07 22:29] LABS: Thyroid Stimulating Hormone 29.3 uIu/ml (0.300-4.500)
[2019-12-07 22:42] LABS: T4 Free Thyroxine 0.92 ng/dl (0.8-1.6)
[2019-12-07] MEDS ORDERED: SODIUM CHLORIDE 0.9% 1000ML 1,000 ML IV ONE (23:48)
[2019-12-08] MEDS ORDERED: ACETAMINOPHEN 1,000 MG/100 ML VIAL IV STA (00:38)
[2019-12-08] MEDS: HEPARIN SOD 5,000 UNIT/0.5 ML VIAL SQ SCH ×3 (05:54→22:00)
[2019-12-08] MEDS: ONDANSETRON INJ 2 MG/ML 2 ML VIAL IV PRN (07:32)
[2019-12-08 08:14] LABS: BUN Creatinine Ratio 30.3 (10-20); Calcium 8.7 mg/dl (8.5-10.1); Creatinine Clr Calc Pharmacy 31.8 ml/min; Est GFR (African American) 37.1; Potassium 5.9 mmol/L (3.5-5.1)
[2019-12-08] MEDS: PRASugrel TAB 10 MG TAB PO SCH (10:55)
[2019-12-08] MEDS: METOPROLOL SUCC 25MG EXT REL TAB PO SCH (10:55)
[2019-12-08] MEDS: TRAMADOL HCL 50 MG TABLET PO PRN ×2 (10:59→19:50)
[2019-12-08] MEDS: ASPIRIN 81 MG ECTAB PO SCH (11:00)
--- NOTE | 2019-12-08 12:46 | Hospitalist Progress Note ---
Date of Service December 08, 2019 Assessment & Plan (1) Ischemic cardiomyopathy: Ischemic cardiomyopathy with LVEF 15-20%. Non compliant with diuretic regimen. Received IV furosemide in ED. Continue lisinopril and metoprolol succinate. Continue to hold lasix due to worsening creatinine Denies any symptoms overload ECHO showed LV is severely dilated with EF 15-20 % Severe global Hypokinesis of left ventricles Will continue monitor closely (2) CAD (coronary artery disease): No anginal symptoms. No acute EKG changes. Troponin normal. Continue aspirin, prasugrel, metoprolol, lisinopril, statin. No acute cardiac symptoms (3) Acute kidney failure: Creatinine improved to 2.08 today Possible related poor oral intake and diuretic Refused IVF, but finally agreed to take IVF Continue to hold lasix Will repeat BMP later (4) Hyperkalemia: K worsening to 6.4, then dropped to 5.9 Refused to take IV calcium, but finally agreed after explaining him the nivia gement and complication for refusing calcium Kayexate given, but nurse said that he only drank 1/3 of it discussed with him about insulin and dextrose to be given if K continues to increase, but he does not want to take it now Just had a large this morning Will repeat BMP at later (5) 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 Blood culture grew coag neg Staph on 11/10 6 week course of IV vancomycin recommended, but patient declined. 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 Consult Wound Care Nursing to follow. No antibiotic is given (7) Diarrhea: Patient reports frequent loose stools. Diarrhea improves Paranoid schizophrenia Does not have any acute schizophrenic symptoms Part of his fear of medications and compliance is likely related to schizophrenia Psych consulted and does not meet inpatient psych treatment No specific indication for psychiatric medication at this time as he is not grossly disorganized, actively hallucinating nor is he agitated as per psych (8) DVT prophylaxis: On Lovenox Ambulate. Disposition Will need placement to rehab Subjective Pt was seen and examined. Lying in bed with no distress Pt said that he was moved to another room last night because they found a bug in his room Nurse said that he continues to refuse taking his med He only drank 5ml of Kayexalate He had a large BM this morning Denies any chest pain, palpitation and SOB Physical Exam Physical Exam: General- No acute distress Head- atraumatic Eyes- PERRL, EOMI, ENT- Poor dentition Neck- supple, no JVD Lungs- clear to auscultation Heart- regular rhythm; +murmur Abdomen- normal bowel sounds, soft, nontender Extremities- no calf tenderness, Chronic bilateral LE swelling RLE greater than the left Neuro- alert, oriented x 3; PERRL, EOMI; no facial palsy; no dysarthria Skin- warm & dry Results & Data Vital Signs (Past 12 Hours) Vital Signs Temp Pulse Resp BP BP Pulse Ox 12/08/19 11:15 36.6 C 55 L 22 119/74 99 12/08/19 07:25 36.6 C 61 20 137/89 100 12/08/19 02:57 36.5 C 60 19 125/81 97 12/08/19 00:59 138/98
[2019-12-08 16:56] LABS: BUN Creatinine Ratio 31.4 (10-20); Calcium 8.4 mg/dl (8.5-10.1); Est GFR (African American) 41.6; Est GFR (Non-African American) 35.9; Potassium 5.6 mmol/L (3.5-5.1)
[2019-12-08] MEDS: ATORVASTATIN 40 MG TAB PO SCH (19:51)
[2019-12-09] MEDS: HEPARIN SOD 5,000 UNIT/0.5 ML VIAL SQ SCH ×3 (05:25→20:38)
[2019-12-09 06:15] LABS: Calcium 8.9 mg/dl (8.5-10.1); Creatinine Clr Calc Pharmacy 35.3 ml/min; Est GFR (African American) 42.4; Est GFR (Non-African American) 36.6; Potassium 5.5 mmol/L (3.5-5.1)
[2019-12-09] MEDS: PRASugrel TAB 10 MG TAB PO SCH (08:01)
[2019-12-09] MEDS: METOPROLOL SUCC 25MG EXT REL TAB PO SCH (08:01)
[2019-12-09] MEDS: ASPIRIN 81 MG ECTAB PO SCH (08:02)
[2019-12-09] MEDS: TRAMADOL HCL 50 MG TABLET PO PRN ×2 (08:11→20:48)
[2019-12-09] MEDS: ONDANSETRON INJ 2 MG/ML 2 ML VIAL IV PRN (08:11)
--- NOTE | 2019-12-09 18:54 | Hospitalist Progress Note ---
Date of Service December 09, 2019 Assessment & Plan (1) Ischemic cardiomyopathy: Ischemic cardiomyopathy with LVEF 15-20%. Non compliant with diuretic regimen. Received IV furosemide in ED. Continue lisinopril and metoprolol succinate. Continue to hold lasix due to worsening creatinine Denies any symptoms overload ECHO showed LV is severely dilated with EF 15-20 % Severe global Hypokinesis of left ventricles Will continue monitor closely (2) CAD (coronary artery disease): No anginal symptoms. No acute EKG changes. Troponin normal. Continue aspirin, prasugrel, metoprolol, lisinopril, statin. No acute cardiac symptoms (3) Acute kidney failure: Creatinine improved to 1.8 today Possible related poor oral intake and diuretic Refused IVF, but finally agreed to take IVF Continue to hold lasix Will repeat BMP later (4) Hyperkalemia: K worsening to 6.4, then dropped to 5.5 Refused to take IV calcium, but finally agreed after explaining him the manag ement and complication for refusing calcium Kayexalate given, but nurse said that he only drank 1/3 of it discussed with him about insulin and dextrose to be given if K continues to increase, but he does not want to take it now Will repeat BMP in am (5) 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 Blood culture grew coag neg Staph on 11/10 6 week course of IV vancomycin recommended, but patient declined. 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 Consult Wound Care Nursing to follow. No antibiotic is given (7) Diarrhea: Patient reports frequent loose stools. Diarrhea improves Paranoid schizophrenia Does not have any acute schizophrenic symptoms Part of his fear of medications and compliance is likely related to schizophrenia Psych consulted and does not meet inpatient psych treatment No specific indication for psychiatric medication at this time as he is not grossly disorganized, actively hallucinating nor is he agitated as per psych (8) DVT prophylaxis: On Lovenox Ambulate. Disposition Will need placement to rehab Subjective Pt was seen and examined Lying in bed with no distress Pt said that he is feeling much better today Denies any chest pain, palpitation and SOB Physical Exam Physical Exam: General- No acute distress Head- atraumatic Eyes- PERRL, EOMI, ENT- Poor dentition Neck- supple, no JVD Lungs- clear to auscultation Heart- regular rhythm; +murmur Abdomen- normal bowel sounds, soft, nontender Extremities- no calf tenderness, Chronic bilateral LE swelling RLE greater than the left Neuro- alert, oriented x 3; PERRL, EOMI; no facial palsy; no dysarthria Skin- warm & dry Results & Data Vital Signs (Past 12 Hours) Vital Signs Temp Pulse Pulse Resp BP Pulse Ox 12/09/19 15:41 66 12/09/19 15:18 36.8 C 57 L 16 134/84 97 12/09/19 11:08 36.8 C 60 18 130/89 98 12/09/19 07:30 36.8 C 60 18 150/98 H 100 12/09/19 07:23 59 L
[2019-12-09] MEDS: ATORVASTATIN 40 MG TAB PO SCH (20:37)
[2019-12-10] MEDS: HEPARIN SOD 5,000 UNIT/0.5 ML VIAL SQ SCH ×3 (05:40→20:08)
[2019-12-10] MEDS: METOPROLOL SUCC 25MG EXT REL TAB PO SCH (08:34)
[2019-12-10] MEDS: PRASugrel TAB 10 MG TAB PO SCH (08:34)
[2019-12-10] MEDS: TRAMADOL HCL 50 MG TABLET PO PRN ×2 (08:40→20:12)
[2019-12-10] MEDS: ASPIRIN 81 MG ECTAB PO SCH (08:42)
[2019-12-10 09:03] LABS: BUN Creatinine Ratio 25.9 (10-20); Calcium 8.6 mg/dl (8.5-10.1); Creatinine Clr Calc Pharmacy 41.4 ml/min; Est GFR (African American) 51.3; Est GFR (Non-African American) 44.3; Potassium 4.9 mmol/L (3.5-5.1)
--- NOTE | 2019-12-10 18:32 | Hospitalist Progress Note ---
Date of Service December 10, 2019 Assessment & Plan (1) Ischemic cardiomyopathy: Ischemic cardiomyopathy with LVEF 15-20%. Non compliant with diuretic regimen. Received IV furosemide in ED. Continue lisinopril and metoprolol succinate. Continue to hold lasix due to worsening creatinine Denies any symptoms overload ECHO showed LV is severely dilated with EF 15-20 % Severe global Hypokinesis of left ventricles Will continue monitor closely (2) CAD (coronary artery disease): No anginal symptoms. No acute EKG changes. Troponin normal. Continue aspirin, prasugrel, metoprolol, lisinopril, statin. No acute cardiac symptoms (3) Acute kidney failure: Creatinine improved to 1.5 today Possible related poor oral intake and diuretic Refused IVF, but finally agreed to take IVF Continue to hold lasix Continue monitor BMP (4) Hyperkalemia: K worsening to 6.4, then dropped to 5.5-->4.9 toay Refused to take IV calcium, but finally agreed after explaining him the management and complication for refusing calcium Kayexalate given, but nurse said that he only drank 1/3 of it discussed with him about insulin and dextrose to be given if K continues to increase, but he does not want to take it now Will repeat BMP in am (5) 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 Blood culture grew coag neg Staph on 11/10 6 week course of IV vancomycin recommended, but patient declined. 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 Consult Wound Care Nursing to follow. No antibiotic is given (7) Diarrhea: Patient reports frequent loose stools. Diarrhea improves Paranoid schizophrenia Does not have any acute schizophrenic symptoms Part of his fear of medications and compliance is likely related to schizophrenia Psych consulted and does not meet inpatient psych treatment No specific indication for psychiatric medication at this time as he is not grossly disorganized, actively hallucinating nor is he agitated as per psych (8) DVT prophylaxis: On Lovenox Ambulate. Disposition waiting for placement to rehab Subjective Pt was seen and examined Lying in bed with no distress Denies any new complaints Physical Exam Physical Exam: General- No acute distress Head- atraumatic Eyes- PERRL, EOMI, ENT- Poor dentition Neck- supple, no JVD Lungs- clear to auscultation Heart- regular rhythm; +murmur Abdomen- normal bowel sounds, soft, nontender Extremities- no calf tenderness, Chronic bilateral LE swelling RLE greater than the left Neuro- alert, oriented x 3; PERRL, EOMI; no facial palsy; no dysarthria Skin- warm & dry Results & Data Vital Signs (Past 12 Hours) Vital Signs Temp Pulse Resp BP Pulse Ox 12/10/19 14:57 36.5 C 61 19 141/88 H 100 12/10/19 07:48 36.6 C 62 20 143/88 H 97
[2019-12-10] MEDS: ATORVASTATIN 40 MG TAB PO SCH (20:09)
[2019-12-10] MEDS: ONDANSETRON INJ 2 MG/ML 2 ML VIAL IV PRN (20:13)
[2019-12-11] MEDS: TRAMADOL HCL 50 MG TABLET PO PRN ×2 (05:27→19:32)
[2019-12-11] MEDS: HEPARIN SOD 5,000 UNIT/0.5 ML VIAL SQ SCH ×3 (05:27→19:34)
[2019-12-11] MEDS: ONDANSETRON INJ 2 MG/ML 2 ML VIAL IV PRN (05:33)
[2019-12-11] MEDS: METOPROLOL SUCC 25MG EXT REL TAB PO SCH (07:56)
[2019-12-11] MEDS: PRASugrel TAB 10 MG TAB PO SCH (07:56)
[2019-12-11] MEDS: ASPIRIN 81 MG ECTAB PO SCH (07:56)
--- NOTE | 2019-12-11 13:02 | Hospitalist Progress Note ---
Date of Service December 11, 2019 Assessment & Plan (1) Ischemic cardiomyopathy: Ischemic cardiomyopathy with LVEF 15-20%. Not always compliant with diuretic regimen. IV furosemide ordered in ED. Continue lisinopril and metoprolol succinate. Follow exam, fluid status, weights. Denies any symptoms this morning Has been diuresing enough and denies any shortness of breath at rest ECHO ::showed LV is severely dilated with EF 15-20 % Severe global Hypokinesis of left ventricles Clinically a lot better during the last 1 week Remains stable with generalized weakness Denies any chest pain and/or palpitation or shortness of breath Complains to have dizziness with presyncope with ambulation Will ask for orthostasis (2) Acute kidney failure: Acute kidney injury likely secondary to dehydration complicated by diuretics Also associated with hyperkalemia Though he refused to have initial management for LAUREN and hyperkalemia, the overall condition is much better now He was advised to drink water up t0 1500 mL daily He is diuretics dose will be adjusted (3) CAD (coronary artery disease): No anginal symptoms. No acute EKG changes. Troponin normal. Continue aspirin, prasugrel, metoprolol, lisinopril, statin. 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 Blood culture grew coag neg Staph. 6 week course of IV vancomycin recommended, but patient declined. Check repeat blood cultures-pending. 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 Previously noted 50 Kem mobile echodensities are no longer present. Possibility of endocarditis has been ruled out Will not get any antibiotic (5) Lymphedema of right lower extremity: Chronic lymphedema of RLE with draining ulcers. Consult Wound Care Nursing to follow. No antibiotic is given Advised continue PT and OT as an outpatient (6) Diarrhea: Patient reports frequent loose stools. Check stool for C diff-was never checked Denies any more diarrhea Paranoid schizophrenia Does not have any acute schizophrenic symptoms Part of his fear of medications and compliance is likely related to schizophrenia Was evaluated by psychiatrist and will not be given any medications Otherwise medically stable to be discharged (7) DVT prophylaxis: SQ heparin. Ambulate. Subjective 12/02/2019 He is a 69-year-old male with significant past medical history of recently diagnosed ischemic cardiomyopathy with EF of 15 to 20%, paranoid schizophrenia, lymphedema with bilateral right more than left lower extremity cellulitis and homelessness was admitted yesterday with weakness and shortness of breath. He complains to have aches and pains all over the body Denies any chest pain and/or palpitation Denies any fever and/or chills 12/03/2019 Patient was seen and examined in telemetry unit He is worried that he is Ultram has been decreased to half He did not ask for any intravenous pain medications today Clinically stable and denies any significant symptoms 12/11/2019 Patient was seen and examined in telemetry unit He complains to have extreme tiredness and presyncope with ambulation Denies any chest pain and/or palpitation No fever and/or chills Review of Systems Review of Systems: All systems reviewed and are unremarkable except as noted below Constitutional: + fatigue and + weakness; no fever and no weight loss Respiratory: + dyspnea; no cough (rare) Cardiovascular: + edema; no palpitations Additional Comments: Dizziness with presyncope with ambulation Gastrointestinal: + diarrhea/loose stools (frequent); no nausea, no vomiting, no constipation, no blood in stools and no melena Musculoskeletal: + joint pain; no myalgia Integumentary: chronic swelling / drainage RLE Neurologic: Likely has some schizophrenia symptoms but nothing acute Psychiatric: + depression Thought insertion Hematologic / Lymphatic: + easy bruising; no easy bleeding and no lymphadenopathy Physical Exam Physical Exam: Lying in bed comfortably Constitutional: + thin and + disheveled; no acute distress Eyes: PERRL, conjunctivae normal, anicteric sclerae ENMT: external ear and nose normal, oropharynx normal Mouth: + dentition abnormality (poor dentition) Neck: trachea midline, no thyromegaly Respiratory: normal respiratory effort; no respiratory distress Auscultation: + diminished lung sounds (Especially on the right side) Cardiovascular: Rate/Rhythm: regular rate and regular rhythm Heart Sounds: + murmur (II/ sys murmur LSB); no cardiac rub Vessels: + JVD Extremities: normal capillary refill and + edema (R > L); no calf tenderness Gastrointestinal (Abdomen): Inspection/Auscultation: abdomen normal to inspection and normal bowel sounds Musculoskeletal: Head/Neck/Chest: neck supple Extremities: no cyanosis and no clubbing Neurologic: Alert, awake and oriented Psychiatric: Orientation: alert and oriented x 3 Lymphatic: no cervical lymphadenopathy Results & Data Vital Signs (Past 12 Hours) Vital Signs Temp Pulse Pulse Resp BP Pulse Ox 12/11/19 11:04 36.7 C 63 18 135/78 95 12/11/19 08:00 63 12/11/19 07:42 36.1 C L 66 18 155/81 H 98 12/11/19 04:27 36.5 C 16 143/80 H 97 Medications Administered Current Inpatient Medications Aspirin (Ecotrin Ectab) 81 mg PO QAM [facility] Stop: 01/01/20 08:59 Last Admin: 12/11/19 07:56 Dose: Not Given Documented by: Atorvastatin Calcium (Lipitor) 80 mg PO HS [facility] Stop: 12/31/19 20:59 Last Admin: 12/10/19 20:09 Dose: 20 mg Documented by: Enoxaparin Sodium (Lovenox) 40 mg SQ QAM [facility] Stop: 01/01/20 08:59 Last Admin: 12/05/19 08:51 Dose: Not Given Documented by: Furosemide (Lasix) 40 mg PO DAILY [facility] Stop: 01/01/20 08:59 Last Admin: 12/05/19 09:07 Dose: Not Given Documented by: Heparin Sodium (Porcine) (Heparin Sodium (Porcine)) 5,000 units SQ Q8 [facility] Stop: 01/05/20 05:59 Last Admin: 12/11/19 05:27 Dose: Not Given Documented by: Lisinopril (Zestril) 5 mg PO QAM [facility] Stop: 01/01/20 08:59 Last Admin: 12/05/19 08:51 Dose: Not Given Documented by: Metoprolol Succinate (Toprol Xl) 12.5 mg PO DAILY [facility] Stop: 01/07/20 08:59 Last Admin: 12/11/19 07:56 Dose: 12.5 mg Documented by: Nitroglycerin (Nitrostat) 0.4 mg SL PRN PRN PRN Reason: chest pain Stop: 12/31/19 19:26 Ondansetron HCl (Zofran) 4 mg IV ONE PRN PRN Reason: Nausea Stop: 01/03/20 16:13 Last Admin: 12/11/19 05:33 Dose: 4 mg Documented by: Prasugrel (Effient) 10 mg PO QAM [facility] Stop: 01/01/20 08:59 Last Admin: 12/11/19 07:56 Dose: 10 mg Documented by: Tramadol HCl (Ultram) 50 mg PO Q4H PRN PRN Reason: pain Stop: 01/01/20 16:19 Last Admin: 12/11/19 05:27 Dose: 50 mg Documented by:
[2019-12-11] MEDS: ATORVASTATIN 40 MG TAB PO SCH (19:32)
[2019-12-12] MEDS: HEPARIN SOD 5,000 UNIT/0.5 ML VIAL SQ SCH ×3 (06:17→21:57)
[2019-12-12 06:26] LABS: Basophils # (auto) 0.02 K/uL (0-0.2); Basophils % (auto) 0.4 %; Eosinophils # (auto) 0.15 K/uL (0-0.5); Eosinophils % (auto) 3.1 %; Hematocrit (blood only) 29.4 % (42-52); Immature Granulocytes # (auto) 0.01 K/uL (0.00-0.02); Immature Granulocytes % (auto) 0.2 %; Lymphocytes # (auto) 0.84 K/uL (1.2-3.4); Lymphocytes % (auto) 17.2 %; Mean Corpuscular Hemoglobin 24.2 pg (25-34); Mean Corpuscular Hgb Conc 30.6 g/dL (32-36); Mean Platelet Volume 8.6 fL (7.4-10.4); Monocytes # (auto) 0.45 K/uL (0.11-0.59); Monocytes % (auto) 9.2 %; Neutrophils % (auto) 69.9 %; Platelet Count 116 K/uL (130-400); RDW Coefficient of Variation 18.5 % (11.5-14.5); Red Blood Count 3.72 M/uL (4.7-6.1); White Blood Count 4.87 K/uL (4.8-10.8)
[2019-12-12 07:03] LABS: BUN Creatinine Ratio 22.5 (10-20); Creatinine Clr Calc Pharmacy 54.9 ml/min; Est GFR (African American) 73.6; Est GFR (Non-African American) 63.5; Magnesium 1.7 mg/dl (1.8-2.4); Phosphorus 2.6 mg/dl (2.5-4.9); Potassium 4.6 mmol/L (3.5-5.1)
[2019-12-12] MEDS: METOPROLOL SUCC 25MG EXT REL TAB PO SCH (08:26)
[2019-12-12] MEDS: ASPIRIN 81 MG ECTAB PO SCH (08:26)
[2019-12-12] MEDS: PRASugrel TAB 10 MG TAB PO SCH (08:26)
[2019-12-12] MEDS: TRAMADOL HCL 50 MG TABLET PO PRN ×2 (08:32→20:23)
--- NOTE | 2019-12-12 13:58 | Hospitalist Progress Note ---
Date of Service December 12, 2019 Assessment & Plan (1) Ischemic cardiomyopathy: Ischemic cardiomyopathy with LVEF 15-20%. Not always compliant with diuretic regimen. IV furosemide ordered in ED. Continue lisinopril and metoprolol succinate. Follow exam, fluid status, weights. Denies any symptoms this morning Has been diuresing enough and denies any shortness of breath at rest ECHO ::showed LV is severely dilated with EF 15-20 % Severe global Hypokinesis of left ventricles Clinically a lot better during the last 1 week Remains stable with generalized weakness Denies any chest pain and/or palpitation or shortness of breath Remains stable for the last few days Only significant symptom is being tired with minimal exertion Complains to have dizziness with presyncope with ambulation Orthostasis test were negative (2) Acute kidney failure: Acute kidney injury likely secondary to dehydration complicated by diuretics Also associated with hyperkalemia Though he refused to have initial management for LAUREN and hyperkalemia, the overall condition is much better now He was advised to drink water up t0 1500 mL daily He is diuretics dose will be adjusted His renal function is normalized with normal electrolytes He will have a small dose of Lasix to go (3) CAD (coronary artery disease): No anginal symptoms. No acute EKG changes. Troponin normal. Continue aspirin, prasugrel, metoprolol, lisinopril, statin. 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 Blood culture grew coag neg Staph. 6 week course of IV vancomycin recommended, but patient declined. Check repeat blood cultures-pending. 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 Previously noted 50 Kem mobile echodensities are no longer present. Possibility of endocarditis has been ruled out No endocarditis and will not need any antibiotic (5) Lymphedema of right lower extremity: Chronic lymphedema of RLE with draining ulcers. Consult Wound Care Nursing to follow. No antibiotic is given Advised continue PT and OT as an outpatient (6) Diarrhea: Patient reports frequent loose stools. Check stool for C diff-was never checked Denies any more diarrhea Paranoid schizophrenia Does not have any acute schizophrenic symptoms Part of his fear of medications and compliance is likely related to schizophrenia Was evaluated by psychiatrist and will not be given any medications Otherwise medically stable to be discharged (7) DVT prophylaxis: SQ heparin. Ambulate. Medically stable to be discharged Awaiting social service evaluation Subjective 12/02/2019 He is a 69-year-old male with significant past medical history of recently diagnosed ischemic cardiomyopathy with EF of 15 to 20%, paranoid schizophrenia, lymphedema with bilateral right more than left lower extremity cellulitis and homelessness was admitted yesterday with weakness and shortness of breath. He complains to have aches and pains all over the body Denies any chest pain and/or palpitation Denies any fever and/or chills 12/03/2019 Patient was seen and examined in telemetry unit He is worried that he is Ultram has been decreased to half He did not ask for any intravenous pain medications today Clinically stable and denies any significant symptoms 12/11/2019 Patient was seen and examined in telemetry unit He complains to have extreme tiredness and presyncope with ambulation Denies any chest pain and/or palpitation No fever and/or chills 12/12/2019 The patient was seen and examined in telemetry unit He has been better for the last few days without any significant symptoms He is orthostasis have been negative Denies any significant symptoms as of today and medically stable to go out of the hospital Review of Systems Review of Systems: All systems reviewed and are unremarkable except as noted below Constitutional: + fatigue and + weakness; no fever and no weight loss Respiratory: no cough (rare) and no dyspnea Cardiovascular: + edema; no chest pain and no palpitations Additional Comments: Dizziness with presyncope with ambulation Gastrointestinal: + diarrhea/loose stools (frequent); no nausea, no vomiting, no constipation, no blood in stools and no melena Musculoskeletal: + joint pain; no myalgia Integumentary: chronic swelling / drainage RLE Neurologic: Likely has some schizophrenia symptoms but nothing acute Psychiatric: + depression Thought insertion Hematologic / Lymphatic: + easy bruising; no easy bleeding and no lymphadenopathy Physical Exam Physical Exam: Lying in bed without any symptoms and/or hallucinations Constitutional: + thin and + disheveled; no acute distress Eyes: PERRL, conjunctivae normal, anicteric sclerae ENMT: external ear and nose normal, oropharynx normal Mouth: + dentition abnormality (poor dentition) Neck: trachea midline, no thyromegaly Respiratory: normal respiratory effort; no respiratory distress Auscultation: lungs clear to auscultation bilaterally Cardiovascular: Rate/Rhythm: regular rate and regular rhythm Heart Sounds: + murmur (II/ sys murmur LSB); no cardiac rub Vessels: + JVD Extremities: normal capillary refill and + edema (R > L); no calf tenderness Gastrointestinal (Abdomen): normal bowel sounds, soft, nontender, no hepatosplenomegaly Inspection/Auscultation: abdomen normal to inspection and normal bowel sounds Musculoskeletal: Head/Neck/Chest: neck supple Extremities: no cyanosis and no clubbing Skin: Has chronic right leg cellulitis Psychiatric: Orientation: alert and oriented x 3 Lymphatic: no cervical lymphadenopathy Results & Data Vital Signs (Past 12 Hours) Vital Signs Temp Pulse Pulse Resp BP Pulse Ox 12/12/19 10:53 36.6 C 71 18 133/78 96 12/12/19 07:51 65 12/12/19 07:16 36.8 C 67 18 127/88 98 12/12/19 04:38 37 C 65 18 126/76 97 Laboratory Results Short CBC 12/12/19 Range/Units 06:04 WBC 4.87 (4.8-10.8) K/uL Hgb 9.0 L (14.0-18.0) g/dL Hct 29.4 L (42-52) % Plt Count 116 L (130-400) K/uL BMP 12/12/19 06:04 Sodium 143 Potassium 4.6 Chloride 114 H Carbon Dioxide 25 BUN 27 H Creatinine 1.18 D Glucose 92 Calcium 8.0 L Medications Administered Current Inpatient Medications Aspirin (Ecotrin Ectab) 81 mg PO QAM [facility] Stop: 01/01/20 08:59 Last Admin: 12/12/19 08:26 Dose: Not Given Documented by: Atorvastatin Calcium (Lipitor) 80 mg PO [facility] Stop: 12/31/19 20:59 Last Admin: 12/11/19 19:32 Dose: 20 mg Documented by: Enoxaparin Sodium (Lovenox) 40 mg SQ QAM [facility] Stop: 01/01/20 08:59 Last Admin: 12/05/19 08:51 Dose: Not Given Documented by: Furosemide (Lasix) 40 mg PO DAILY [facility] Stop: 01/01/20 08:59 Last Admin: 12/05/19 09:07 Dose: Not Given Documented by: Heparin Sodium (Porcine) (Heparin Sodium (Porcine)) 5,000 units SQ Q8 [facility] Stop: 01/05/20 05:59 Last Admin: 12/12/19 06:17 Dose: Not Given Documented by: Lisinopril (Zestril) 5 mg PO QAM [facility] Stop: 01/01/20 08:59 Last Admin: 12/05/19 08:51 Dose: Not Given Documented by: Metoprolol Succinate (Toprol Xl) 12.5 mg PO DAILY [facility] Stop: 01/07/20 08:59 Last Admin: 12/12/19 08:26 Dose: 12.5 mg Documented by: Nitroglycerin (Nitrostat) 0.4 mg SL PRN PRN PRN Reason: chest pain Stop: 12/31/19 19:26 Ondansetron HCl (Zofran) 4 mg IV ONE PRN PRN Reason: Nausea Stop: 01/03/20 16:13 Last Admin: 12/11/19 05:33 Dose: 4 mg Documented by: Prasugrel (Effient) 10 mg PO QAM [facility] Stop: 01/01/20 08:59 Last Admin: 12/12/19 08:26 Dose: 10 mg Documented by: Tramadol HCl (Ultram) 50 mg PO Q4H PRN PRN Reason: pain Stop: 01/01/20 16:19 Last Admin: 12/12/19 08:32 Dose: 50 mg Documented by:
[2019-12-12] MEDS: ONDANSETRON INJ 2 MG/ML 2 ML VIAL IV PRN (14:58)
[2019-12-12] MEDS: ATORVASTATIN 40 MG TAB PO SCH (20:24)
[2019-12-13] MEDS: HEPARIN SOD 5,000 UNIT/0.5 ML VIAL SQ SCH (05:11)
[2019-12-13] MEDS: PRASugrel TAB 10 MG TAB PO SCH (08:40)
[2019-12-13] MEDS: METOPROLOL SUCC 25MG EXT REL TAB PO SCH (08:40)
[2019-12-13] MEDS: ASPIRIN 81 MG ECTAB PO SCH (08:40)
[2019-12-13] MEDS: TRAMADOL HCL 50 MG TABLET PO PRN (08:42)
--- NOTE | 2019-12-13 10:03 | Hospitalist Progress Note ---
Date of Service December 13, 2019 Assessment & Plan (1) Ischemic cardiomyopathy: Ischemic cardiomyopathy with LVEF 15-20%. Not always compliant with diuretic regimen. IV furosemide ordered in ED. Continue lisinopril and metoprolol succinate. Follow exam, fluid status, weights. Denies any symptoms this morning Has been diuresing enough and denies any shortness of breath at rest ECHO ::showed LV is severely dilated with EF 15-20 % Severe global Hypokinesis of left ventricles Clinically a lot better during the last 1 week Remains stable with generalized weakness Denies any chest pain and/or palpitation or shortness of breath Remains stable for the last few days Only significant symptom is being tired with minimal exertion Denies any more symptoms Complains to have dizziness with presyncope with ambulation Orthostasis test were negative Generally weak and lethargic while ambulating but no significant dizziness and/or presyncope (2) Acute kidney failure: Acute kidney injury likely secondary to dehydration complicated by diuretics Also associated with hyperkalemia Though he refused to have initial management for LAUREN and hyperkalemia, the overall condition is much better now He was advised to drink water up t0 1500 mL daily He is diuretics dose will be adjusted His renal function is normalized with normal electrolytes He will have a small dose of Lasix to go (3) CAD (coronary artery disease): No anginal symptoms. No acute EKG changes. Troponin normal. Continue aspirin, prasugrel, metoprolol, lisinopril, statin. 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 Blood culture grew coag neg Staph. 6 week course of IV vancomycin recommended, but patient declined. Check repeat blood cultures-pending. 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 Previously noted 50 Kem mobile echodensities are no longer present. Possibility of endocarditis has been ruled out No endocarditis and will not need any antibiotic (5) Lymphedema of right lower extremity: Chronic lymphedema of RLE with draining ulcers. Consult Wound Care Nursing to follow. No antibiotic is given He will be dressing his own leg as before (6) Diarrhea: Patient reports frequent loose stools. Check stool for C diff-was never checked Denies any more diarrhea Paranoid schizophrenia Does not have any acute schizophrenic symptoms Part of his fear of medications and compliance is likely related to schizophrenia Was evaluated by psychiatrist and will not be given any medications Otherwise medically stable to be discharged (7) DVT prophylaxis: SQ heparin. Ambulate. Medically stable to be discharged Home health services have been activated and in place Will be discharged home this afternoon Subjective 12/02/2019 He is a 69-year-old male with significant past medical history of recently diagnosed ischemic cardiomyopathy with EF of 15 to 20%, paranoid schizophrenia, lymphedema with bilateral right more than left lower extremity cellulitis and homelessness was admitted yesterday with weakness and shortness of breath. He complains to have aches and pains all over the body Denies any chest pain and/or palpitation Denies any fever and/or chills 12/03/2019 Patient was seen and examined in telemetry unit He is worried that he is Ultram has been decreased to half He did not ask for any intravenous pain medications today Clinically stable and denies any significant symptoms 12/11/2019 Patient was seen and examined in telemetry unit He complains to have extreme tiredness and presyncope with ambulation Denies any chest pain and/or palpitation No fever and/or chills 12/12/2019 The patient was seen and examined in telemetry unit He has been better for the last few days without any significant symptoms He is orthostasis have been negative Denies any significant symptoms as of today and medically stable to go out of the hospital 12/13/2019 The patient was seen and examined in telemetry unit Remains stable and has been moving around without significant symptom Is ready to go home Review of Systems Review of Systems: All systems reviewed and are unremarkable except as noted below Constitutional: + weakness and + weight loss Cardiovascular: + edema; no chest pain and no palpitations Additional Comments: Dizziness with presyncope with ambulation Gastrointestinal: + diarrhea/loose stools (frequent); no nausea, no vomiting, no constipation, no blood in stools and no melena Musculoskeletal: no myalgia Integumentary: chronic swelling / drainage RLE Neurologic: Likely has some schizophrenia symptoms but nothing acute Psychiatric: + depression Thought insertion Hematologic / Lymphatic: + easy bruising; no easy bleeding and no lymphadenopathy Physical Exam Physical Exam: Lying in bed comfortably Constitutional: + thin and + disheveled; no acute distress Eyes: PERRL, conjunctivae normal, anicteric sclerae ENMT: external ear and nose normal, oropharynx normal Mouth: + dentition abnormality (poor dentition) Neck: trachea midline, no thyromegaly Respiratory: normal respiratory effort; no respiratory distress Auscultation: lungs clear to auscultation bilaterally Cardiovascular: Rate/Rhythm: regular rate and regular rhythm Heart Sounds: + murmur (II/ sys murmur LSB); no cardiac rub Vessels: + JVD Extremities: normal capillary refill and + edema (R > L); no calf tenderness Gastrointestinal (Abdomen): normal bowel sounds, soft, nontender, no hepatosplenomegaly Inspection/Auscultation: abdomen normal to inspection and normal bowel sounds Musculoskeletal: Head/Neck/Chest: neck supple Extremities: no cyanosis and no clubbing Psychiatric: Orientation: alert and oriented x 3 Lymphatic: no cervical lymphadenopathy Results & Data Vital Signs (Past 12 Hours) Vital Signs Temp Pulse Pulse Resp BP Pulse Ox 12/13/19 07:49 68 12/13/19 07:01 36.3 C L 65 16 135/83 98 12/13/19 03:12 37.1 C 72 18 133/80 97 12/12/19 23:19 36.7 C 65 20 130/81 98 Medications Administered Current Inpatient Medications Aspirin (Ecotrin Ectab) 81 mg PO QAM [facility] Stop: 01/01/20 08:59 Last Admin: 12/13/19 08:40 Dose: Not Given Documented by: Atorvastatin Calcium (Lipitor) 80 mg PO HS [facility] Stop: 12/31/19 20:59 Last Admin: 12/12/19 20:24 Dose: 20 mg Documented by: Enoxaparin Sodium (Lovenox) 40 mg SQ QAM [facility] Stop: 01/01/20 08:59 Last Admin: 12/05/19 08:51 Dose: Not Given Documented by: Furosemide (Lasix) 40 mg PO DAILY [facility] Stop: 01/01/20 08:59 Last Admin: 12/05/19 09:07 Dose: Not Given Documented by: Heparin Sodium (Porcine) (Heparin Sodium (Porcine)) 5,000 units SQ Q8 [facility] Stop: 01/05/20 05:59 Last Admin: 12/13/19 05:11 Dose: Not Given Documented by: [facility]inop[facility] ([facility]est[facility]) [facility] [place] Stop: 01/01/20 08:59 Last Admin: 12/05/19 08:51 Dose: Not Given Documented by: Metoprolol Succinate (Toprol Xl) 12.5 mg PO DAILY [facility] Stop: 01/07/20 08:59 Last Admin: 12/13/19 08:40 Dose: 12.5 mg Documented by: Nitroglycerin (Nitrostat) 0.4 mg SL PRN PRN PRN Reason: chest pain Stop: 12/31/19 19:26 Ondansetron HCl (Zofran) 4 mg IV ONE PRN PRN Reason: Nausea Stop: 01/03/20 16:13 Last Admin: 12/12/19 14:58 Dose: 4 mg Documented by: Prasugrel (Effient) 10 mg PO QAM [facility] Stop: 01/01/20 08:59 Last Admin: 12/13/19 08:40 Dose: 10 mg Documented by: Tramadol HCl (Ultram) 50 mg PO Q4H PRN PRN Reason: pain Stop: 01/01/20 16:19 Last Admin: 12/13/19 08:42 Dose: 50 mg Documented by:
--- NOTE | 2019-12-14 08:25 | Discharge Summary ---
Date of Service December 14, 2019 Admission HPI Per Admitting Provider 69 YO male History of coronary artery disease, ischemic cardiomyopathy, paranoid schizophrenia, and other problems as noted. Not always compliant with medical recommendations due to his concerns (non- psychotic), Prefers not to take furosemide unless absolutely necessary because it is difficult for him to get to the bathroom. Last hospitalized in October with CHF and suspected endocarditis but declined antibiotics, this stay is agreeing to necessary placement to receive IV. Homeless in the past. Followed by [facility]; currently has apartment at [facility]. Admission Exam Per Admitting Provider Constitutional: + thin and + disheveled; no acute distress Eyes: PERRL, conjunctivae normal, anicteric sclerae ENMT: external ear and nose normal, oropharynx normal Mouth: + dentition abnormality (poor dentition) Neck: trachea midline, no thyromegaly Respiratory: no respiratory distress Auscultation: + rales Cardiovascular: Rate/Rhythm: regular rate Heart Sounds: + gallop (apical S3) and + murmur (II/ sys murmur LSB); no cardiac rub Vessels: + JVD Extremities: normal capillary refill and + edema (R > L); no calf tenderness Gastrointestinal (Abdomen): normal bowel sounds, soft, nontender, no hepatosplenomegaly Musculoskeletal: Head/Neck/Chest: neck supple Extremities: no cyanosis and no clubbing chronic lymphedema RLE with thickening of skin and several ulcers with drainage Skin: as noted above Neurologic: PERRL, EOMI no facial palsy no dysarthria or aphasia patellar DTR's 2/2 bilat Psychiatric: Orientation: alert and oriented x 3 no apparent visual or auditory hallucinations Lymphatic: no cervical lymphadenopathy Principal Diagnosis Ischemic cardiomyopathy with EF of 15 to 20%, stable systolic heart failure, CAD, paranoid schizophrenia, chronic lymphedema of the right lower extremity with chronic cellulitis. Discharge Exam Constitutional + thin and + disheveled; no acute distress Eyes PERRL, conjunctivae normal, anicteric sclerae ENMT external ear and nose normal, oropharynx normal Mouth: + dentition abnormality (poor dentition) Neck trachea midline, no thyromegaly Respiratory normal respiratory effort; no respiratory distress Auscultation: lungs clear to auscultation bilaterally Cardiovascular Rate/Rhythm: regular rate and regular rhythm Heart Sounds: + murmur (II/ sys murmur LSB); no cardiac rub Vessels: + JVD Extremities: normal capillary refill and + edema (R > L); no calf tenderness Gastrointestinal (Abdomen) normal bowel sounds, soft, nontender, no hepatosplenomegaly Inspection/Auscultation: abdomen normal to inspection and normal bowel sounds Musculoskeletal Head/Neck/Chest: neck supple Extremities: no cyanosis and no clubbing Psychiatric Orientation: alert and oriented x 3 Lymphatic no cervical lymphadenopathy Discharge Data Allergies Allergy/AdvReac Type Severity Reaction Status Date / Time horse dander Allergy Unknown HORSE HAIR Verified 12/01/19 16:02 tetanus toxoid, adsorbed Allergy Unknown Unknown Verified 12/01/19 16:02 Consultations 12/01/19 17:53 ED Decision to Admit Stat 12/01/19 18:07 ED Decision to Admit Stat 12/03/19 10:38 Consult Infectious Diseases Routine 12/06/19 11:07 Consult Psychiatry Routine Hospital Course (1) Ischemic cardiomyopathy: Ischemic cardiomyopathy with LVEF 15-20%. Not always compliant with diuretic regimen. IV furosemide ordered in ED. Continue lisinopril and metoprolol succinate. Follow exam, fluid status, weights. Denies any symptoms this morning Has been diuresing enough and denies any shortness of breath at rest ECHO ::showed LV is severely dilated with EF 15-20 % Severe global Hypokinesis of left ventricles Clinically a lot better during the last 1 week Remains stable with generalized weakness Denies any chest pain and/or palpitation or shortness of breath Remains stable for the last few days Only significant symptom is being tired with minimal exertion Denies any more symptoms Complains to have dizziness with presyncope with ambulation Orthostasis test were negative Generally weak and lethargic while ambulating but no significant dizziness and/or presyncope (2) Acute kidney failure: Acute kidney injury likely secondary to dehydration complicated by diuretics Also associated with hyperkalemia Though he refused to have initial management for LAUREN and hyperkalemia, the overall condition is much better now He was advised to drink water up t0 1500 mL daily He is diuretics dose will be adjusted His renal function is normalized with normal electrolytes He will have a small dose of Lasix to go (3) CAD (coronary artery disease): No anginal symptoms. No acute EKG changes. Troponin normal. Continue aspirin, prasugrel, metoprolol, lisinopril, statin. 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 Blood culture grew coag neg Staph. 6 week course of IV vancomycin recommended, but patient declined. Check repeat blood cultures-pending. Resume IV vancomycin-continued Detailed discussion with the patient about the echo findings Will repeat echocardiogram and discussed with the email administrator about the echo findings Suspect more of myxoma than of infective endocarditis Repeat echo did show 0.8 x 1 cm non-mobile mass on the atrial surface of the anterior bicuspid valve leaflet. Previously noted 50 Kem mobile echodensities are no longer present. Possibility of endocarditis has been ruled out No endocarditis and will not need any antibiotic (5) Lymphedema of right lower extremity: Chronic lymphedema of RLE with draining ulcers. Consult Wound Care Nursing to follow. No antibiotic is given He will be dressing his own leg as before (6) Diarrhea: Patient reports frequent loose stools. Check stool for C diff-was never checked Denies any more diarrhea Paranoid schizophrenia Does not have any acute schizophrenic symptoms Part of his fear of medications and compliance is likely related to schizophrenia Was evaluated by psychiatrist and will not be given any medications Otherwise medically stable to be discharged (7) DVT prophylaxis: SQ heparin. Ambulate. Medically stable to be discharged Home health services have been activated and in place Will be discharged home this afternoon Total Time Total Time Spent Total Time Spent (In Minutes): 40 minutes Total Time Includes: Examination of the Patient, Discharge Planning, Medication Reconciliation and Communication With Other Providers Discharge Plan Discharge Items Patient Disposition: Home - Self-Care Reason For Visit: CHF Discharge Diagnosis: Ischemic cardiomyopathy with EF of 15 to 20%, stable systolic heart failure, CAD, paranoid schizophrenia, chronic lymphedema of the right lower extremity with chronic cellulitis. Condition on Discharge: Fair Activity: Resume your previous activity Non-emergency contact: Primary Care Provider Call non-emergency contact if: you have any medication questions Follow-up/Referrals: Jenaro Carter MD [Physician] - 12/27/19 1:00 pm (Your Appointment is with [facility]) Misty Vora MD [Physician] - 12/17/19 11:20 am (12/17/2019 11:20 AM with Misty Vora MD Please make an appointment with your email administrator in 2 to 3 weeks. ) PCP,NO [Primary Care Provider] - Diet: Heart Healthy and Low Sodium (2gm) Addtl Attending Provider Instructions: Please take your medications regularly Limit fluid to 1500 mL in total in 24 hours Take precaution to avoid falls Keep appointments with your doctors Please keep dressing your right leg as advised Pending Studies at Discharge: No Stand-Alone Forms: [facility], Smoking Cessation Medications and DC Order Prescriptions: New atorvastatin 40 mg Tablet 80 mg PO HS 30 Days Qty: 60 RF: 0 furosemide [Lasix] 40 mg tablet 40 mg PO DAILY 30 Days Qty: 30 RF: 1 aspirin [Ecotrin Low Strength] 81 mg Tablet,Delayed Release (Dr/Ec) 81 mg PO QAM 30 Days Qty: 30 RF: 0 tramadol 50 mg tablet 50 mg PO Q12H PRN (Reason: pain) 7 Days Qty: 10 RF: 0 nitroglycerin [Nitrostat] 0.4 mg Tablet, Sublingual 0.4 mg sublingual PRN PRN (Reason: chest pain) 30 Days Qty: 30 RF: 0 lisinopril [Zestril] 5 mg Tablet 5 mg PO QAM 30 Days Qty: 30 RF: 1 metoprolol succinate 25 mg Tablet Extended Release 24 Hr 12.5 mg PO DAILY 30 Days Qty: 15 RF: 1 clopidogrel [Plavix] 75 mg tablet 75 mg PO DAILY Qty: 30 RF: 0 Continued atorvastatin [Lipitor] 80 mg Tablet 80 mg PO HS 30 Days Qty: 30 RF: 0 Discontinued prasugrel [Effient] 10 mg Tablet 10 mg PO QAM Qty: 30 RF: 0 Discharge Orders: Discharge Order (Routine); Ordered 12/13/19 Ordered By: Meredith Olivas/Other Patient Handouts: Atorvastatin Calcium Oral tablet, Tramadol Hydrochloride Oral tablet, Clopidogrel Bisulfate Oral tablet, Metoprolol Succinate Oral tablet extended-release, Nitroglycerin Sublingual tablet, Lisinopril Oral tablet, Furosemide Oral tablet, Aspirin Oral tablet Admission Data Admit Date/Time: 12/01/19 18:09 Attending Provider: Meredith Gonzalez Admit Provider: Tyler King Primary Care Provider: PCP,NO Other Providers: Tyler King ; Ellen Jc ; [facility] ; Bri, ; Meredith Gonzalez ; Nancy Lagunas ; Funmi Valentine Other Interventions: Discharge Summary Assessment (RN) Last Done: 12/13/19 11:03 DC Date/Time DO NOT enter until pt leaves facility: 12/13/19 13:34
== END 2019-12-13 13:34 | disposition home or self-care (01) | DRG 302 ==
LOC: ED 15:27 → SUATTDRO 18:09 → 2E 18:09 → 2S 12-08 01:56

== ENCOUNTER 2020-01-25 08:22 | Inpatient (IN) ==
--- NOTE | 2020-01-25 10:02 | XRay Report ---
XR chest 1V portable CLINICAL HISTORY: 69 years-old Male presenting with SEPSIS. TECHNIQUE: Portable upright AP view of the chest was obtained. COMPARISON: 01/16/2020 and CTA chest from 10/14/2019. FINDINGS: Cardiopericardial silhouette markedly enlarged. Significant engorgement of the azygos vein. Mild prom inence of upper lobe pulmonary vasculature. Interval worsening of the right basilar opacity. Signific ant worsening of the left retrocardiac opacity. Increased size of the small to moderate right pleural effusion. Trace left pleural effusion may also be present. No pneumothorax. Osseous structures kevin l. Upper abdomen normal. IMPRESSION: 1. Cardiomegaly with elevated right heart pressure. Mild vascular engorgement. 2. Significant interval worsening of bibasilar infiltrates. This may relate to increasing layering p leural effusions and extensive passive atelectasis. Underlying aspiration or infection not excluded. ACT 112: Negative or not required by law. Electronically signed by: Delta Gotti M.D. 01/25/2020 10:01 AM
[2020-01-25 10:26] LABS: Basophils # (auto) 0.01 K/uL (0-0.2); Basophils % (auto) 0.1 %; Eosinophils # (auto) 0.18 K/uL (0-0.5); Eosinophils % (auto) 2.4 %; Hematocrit (blood only) 32.6 % (42-52); Hemoglobin 10.1 g/dL (14.0-18.0); Immature Granulocytes # (auto) 0.02 K/uL (0.00-0.02); Immature Granulocytes % (auto) 0.3 %; Lymphocytes # (auto) 0.52 K/uL (1.2-3.4); Lymphocytes % (auto) 6.9 %; Mean Corpuscular Volume 80.7 fL (80-100); Mean Platelet Volume 9.8 fL (7.4-10.4); Monocytes # (auto) 0.53 K/uL (0.11-0.59); Neutrophils # (auto) 6.32 K/uL (1.4-6.5); Neutrophils % (auto) 83.3 %; Platelet Count 230 K/uL (130-400); RDW Coefficient of Variation 22.4 % (11.5-14.5); RDW Standard Deviation 66.4 fL (36.4-46.3); Red Blood Count 4.04 M/uL (4.7-6.1); White Blood Count 7.58 K/uL (4.8-10.8)
[2020-01-25 10:42] LABS: Albumin Level 2.3 gm/dl (3.4-5.0); BUN Creatinine Ratio 17.8 (10-20); Calcium 8.1 mg/dl (8.5-10.1); Creatinine Clr Calc Pharmacy 81.6 ml/min; Est GFR (African American) 106.1; Est GFR (Non-African American) 91.5; Potassium 3.8 mmol/L (3.5-5.1)
[2020-01-25 10:44] LABS: INR 1.2 (0.9-1.1); Partial Thromboplastin Ratio 1.1; Partial Thromboplastin Time 31.8 Seconds (21.0-31.0); Prothrombin Time 12.4 Seconds (9.0-12.0)
[2020-01-25 10:45] LABS: Anisocytosis Present
[2020-01-25 10:52] LABS: Albumin Globulin Ratio 0.6 (0.9-2); Bilirubin,Total 0.8 mg/dl (0.2-1); Globulin 3.9 gm/dl (2.5-4.0); Total Protein 6.2 gm/dl (6.4-8.2); Troponin I 0.06 ng/ml (0-0.045)
--- NOTE | 2020-01-25 11:12 | CT Scan Report ---
CT abd pelvis wo con CLINICAL HISTORY: 69 years-old Male presenting with generalized abdominal pain and scrotal swelling. TECHNIQUE: Multidetector CT of the abdomen and pelvis was performed without the use of intravenous co ntrast. IV contrast: None. One or more dose lowering techniques were used consistent with the princip les of ALA (as low as reasonably achievable), including automatic exposure control, mA or kV adjust ment to individual patient size, and/or use of iterative reconstruction. COMPARISON: 10/14/2019. CT DOSE (mGy.cm): The estimated cumulative dose is 409.86 mGy.cm. FINDINGS: Retail Assistant topogram: Cardiomegaly. Lung bases: Moderate to marked multichamber enlargement of the heart. Coronary artery calcification. Small to moderate pericardial effusion. Moderate to large right and small left pleural effusions. Ext ensive dependent groundglass infiltrates increased from prior. Peribronchovascular bundle thickening. Liver: Normal morphology. Normal density. Biliary: Central predominant intrahepatic and extrahepatic biliary ductal dilatation similar to prior . Normal gallbladder. Pancreas: Normal noncontrast appearance. Underlying pancreatic ductal prominence not as well apprecia cheri on this noncontrast study. Spleen: Normal noncontrast appearance. Adrenal glands: Normal noncontrast appearance. Kidneys and ureters: Severely atrophic right kidney. Normal noncontrast appearance of the left kidney . No hydronephrosis. Bladder: Circumferential bladder wall thickening. The morphology of the bladder may suggest underlyin g neurogenic bladder or prominent duodenal diverticulum arising from the anterior wall. Pelvic organs: Normal noncontrast appearance. Severe scrotal wall thickening. Underlying small to mod erate right hydrocele suspected. The right hemiscrotum is not well delineated. Bowel: Mild stool burden throughout normal caliber colon. The appendix is not visualized and surgical clips are noted in the right lower quadrant. No bowel obstruction though small bowel is mildly diste nded in the central abdomen with a diameter of 2.5 cm. No focal transition point is appreciated. Peritoneal cavity: Small volume free fluid in the pelvis. No free intraperitoneal gas. Diffuse mesent vandana edema. Lymph nodes: Noncontrast. Diffusely infiltrated fat planes secondary to edema significantly degraded evaluation. Vasculature: Diffuse atherosclerosis of the abdominal aorta and major branch vessels. 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 Abdominal wall: Severe body wall edema. 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 Musculoskeletal: Osseous fusion across the right sacroiliac joint. Osteopenia suspected. IMPRESSION: 1. Severe scrotal edema. This may be a consequence of volume overload. If there is concern, scrotal ultrasound is more sensitive for detection of scrotal abnormalities. 2. Severe volume overload with severe body wall edema, diffuse mesenteric edema, and bilateral pleur al effusions. 3. The lack of intravenous contrast and the severity of body wall edema significantly degrades evalu ation. 4. Cardiomegaly with a small to moderate pericardial effusion. 5. Extensive bibasilar groundglass dependent infiltrates likely represent moderate bibasilar pulmona ry edema versus aspiration/aspiration pneumonitis. 6. Additional chronic findings as above. ACT 112: Negative or not required by law. Electronically signed by: Delta Gotti M.D. 01/25/2020 11:10 AM
[2020-01-25] MEDS ORDERED: MoRPHine SULFATE 4 MG/ML 1 ML CARP\\VIAL IV STA (11:27)
[2020-01-25] MEDS ORDERED: ONDANSETRON INJ 2 MG/ML 2 ML VIAL IV STA (11:27)
[2020-01-25] MEDS ORDERED: FUROSEMIDE 40 MG/4 ML VIAL IV STA ×2 (11:29→12:20)
--- NOTE | 2020-01-25 13:49 | Emergency Department Note ---
Entered by Mark Hewitt acting as a scribe for History of Present Illness General Chief complaint: Groin Pain Time Seen by Provider: 01/25/20 08:46 Source: patient History of Present Illness Onset (ago): hour(s) (48) Location: genitals (scrotum) Pain Consistency: + constant Quality: + other (swelling) Associated symptoms: + denies other symptoms (new chest congestion, vomiting, blood in stool, fevers) and + chest pain; no cough The patient is a 69 y/o male who presents to the ED w/ CC of constant swelling to his scrotum beginning 48 hours ago. The patient states she has a history of testicular cancer 30 years ago and had his right testicle removed. He reports he normally has trouble with right leg swelling, but this time that is under control. The patient notes he intermittently has chest pain when he drinks somet mary. He states he is on a few medications for his blood pressure. The patient denies fevers, new cough, new chest congestion, vomiting, and blood in his stool. He notes a history of being 302d and denies SI and HI. Home Medications Home Medications Medication Instructions Recorded Confirmed Type aspirin [Ecotrin Low Strength] 81 mg PO QAM 30 Days #30 tab 12/13/19 01/25/20 Rx atorvastatin [Lipitor] 80 mg PO HS 30 Days #30 tab 12/13/19 01/25/20 Rx clopidogrel [Plavix] 75 mg PO DAILY #30 tab 12/13/19 01/25/20 Rx furosemide [Lasix] 40 mg PO DAILY 30 Days #30 tab 12/13/19 01/25/20 Rx lisinopril [Zestril] 5 mg PO QAM 30 Days #30 tab 12/13/19 01/25/20 Rx metoprolol succinate 12.5 mg PO DAILY 30 Days #15 tab 12/13/19 01/25/20 Rx nitroglycerin [Nitrostat] 0.4 mg SUBLINGUAL PRN PRN 30 Days 12/13/19 01/25/20 Rx #30 tab prasugrel [Effient] 10 mg PO DAILY 01/15/20 01/25/20 History Allergies Allergy/AdvReac Type Severity Reaction Status Date / Time horse dander Allergy Unknown HORSE HAIR Verified 01/25/20 10:22 tetanus toxoid, adsorbed Allergy Unknown Unknown Verified 01/25/20 10:22 Past Med/Surg History Medical History CAD (coronary artery disease) Cholecystitis, acute Chronic systolic CHF (congestive heart failure) (Acute) History of DVT (deep vein thrombosis) History of pancreatitis History of testicular cancer History of tobacco abuse Homelessness HTN (hypertension) (Chronic) "declines to take medication" Hypertension Hyperthyroidism Ischemic cardiomyopathy Lymphedema of right lower extremity (Acute) Mitral regurgitation Pleural effusion Schizophrenia (Acute) STEMI (ST elevation myocardial infarction) Tricuspid regurgitation Surgical History Hx of heart artery stent Status post cardiac catheterization Family History Other Unknown family medical history Social History Preferred Language: Brazilian Communication Ability: Effective 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 and A total of 10 systems reviewed and were otherwise negative Physical Exam Vital Signs Vital Signs - 24 hr 01/25/20 08:16 01/25/20 08:25 01/25/20 08:29 Temperature 36.4 C L Temperature Source Oral Pulse Rate 124 H 115 H 103 H Pulse Rate from SpO2 Sensor 120 H Pulse Rhythm Irregular Respiratory Rate 20 29 H 30 H Respiratory Effort / Characteristics Short of Breath Blood Pressure 147/110 H 147/110 H Blood Pressure Mean 122 116 Blood Pressure Position Lying Pulse Oximetry 96 90 Oxygen Delivery Method Nasal Cannula Oxygen Flow Rate 2 Sepsis Recent Fever Within 48 Hours No Sepsis Action Taken by Nursing No Action Required 01/25/20 08:30 01/25/20 08:54 01/25/20 09:00 Temperature Temperature Source Pulse Rate 102 H 110 H Pulse Rate from SpO2 Sensor 103 H Pulse Rhythm Respiratory Rate 16 19 Respiratory Effort / Characteristics Blood Pressure 146/108 H Blood Pressure Mean 114 Blood Pressure Position Pulse Oximetry 100 Oxygen Delivery Method Nasal Cannula Oxygen Flow Rate Sepsis Recent Fever Within 48 Hours Sepsis Action Taken by Nursing 01/25/20 09:30 01/25/20 10:00 01/25/20 10:30 Temperature Temperature Source Pulse Rate 125 H 126 H 125 H Pulse Rate from SpO2 Sensor Pulse Rhythm Respiratory Rate 29 H 18 19 Respiratory Effort / Characteristics Blood Pressure Blood Pressure Mean Blood Pressure Position Pulse Oximetry Oxygen Delivery Method Oxygen Flow Rate Sepsis Recent Fever Within 48 Hours Sepsis Action Taken by Nursing 01/25/20 11:10 01/25/20 11:30 01/25/20 11:31 Temperature Temperature Source Pulse Rate 124 H 124 H 112 H Pulse Rate from SpO2 Sensor Pulse Rhythm Respiratory Rate 22 27 H 21 Respiratory Effort / Characteristics Blood Pressure 137/99 144/116 H Blood Pressure Mean 107 124 Blood Pressure Position Pulse Oximetry Oxygen Delivery Method Oxygen Flow Rate Sepsis Recent Fever Within 48 Hours Sepsis Action Taken by Nursing 01/25/20 12:00 Temperature Temperature Source Pulse Rate 112 H Pulse Rate from SpO2 Sensor Pulse Rhythm Respiratory Rate 17 Respiratory Effort / Characteristics Blood Pressure 144/111 H Blood Pressure Mean 112 Blood Pressure Position Pulse Oximetry Oxygen Delivery Method Oxygen Flow Rate Sepsis Recent Fever Within 48 Hours Sepsis Action Taken by Nursing General: Non-ill appearing older male in no acute distress. HEENT: Normal cephalic atraumatic. Pupils are equal round and reactive to light. Extraocular movements are intact. Oropharynx is pink with moist mucous membranes. No swelling of the mouth lips or tongue. Neck: Supple with a midline trachea. No meningeal signs or stiffness, no JVD or bruits. No Stridor. Chest: Clear to auscultation bilaterally. No wheezes or rhonchi. No increased work of breathing. Heart: Mildly tachycardic rate with afib scene on the monitor. Abdomen: Soft nontender, nondistended without rebound guarding or rigidity. Mild edema. : Markedly enlarged scrotum with fluid in the scrotum and penis. Mildly red and warm. No discoloration of the skin, break down, or crepitus. Extremities: No cyanosis clubbing or edema. No calf tenderness or asymmetry Spine/Back. Non tender to palpation. No CVA tenderness Skin: Good turgor without rashes. Neurologic exam: Cranial nerves two through 12 are intact. Motor and sensation are intact and symmetrical throughout. Course Course 0847: The patient was evaluated in room B08. A complete history and physical exam was performed. 1001: I reevaluated the patient. We are waiting for his blood work. 1131: Upon reevaluation, the patient is resting comfortably. I discussed laboratory and radiographic results with him. He verbalized agreement of the treatment plan. The patient will be evaluated for further management and care. 1140: I reviewed the patient's case with Dr. Gonzalez, [facility] Hospitalist. He will evaluate the patient for further management. Administered Medications Discontinued Medications Furosemide (Lasix) 40 mg IV NOW STA Stop: 01/25/20 11:30 Last Admin: 01/25/20 11:41 Dose: 40 mg Documented by: [id number] Furosemide (Lasix) 40 mg IV BID STA Stop: 01/25/20 12:21 Last Admin: 01/25/20 13:55 Dose: Not Given Documented by: [id number] Morphine Sulfate (Morphine Sulfate) 4 mg IV NOW STA Stop: 01/25/20 11:28 Last Admin: 01/25/20 11:41 Dose: 4 mg Documented by: [id number] Ondansetron HCl (Zofran) 4 mg IV NOW STA Stop: 01/25/20 11:28 Last Admin: 01/25/20 11:41 Dose: 4 mg Documented by: [id number] Medical Decision Making Differential Diagnosis Differential diagnosis includes: sepsis, infection, hydrocele, CHF, hernia, electrolyte or metabolic abnormality, Napoleon gangrene. Medical Records Attestation: I reviewed the patient's medical records. Home Medications Current Medication List: was personally reviewed by me Laboratory Data Attestation: I reviewed the patient's lab results. Result diagrams: 01/25/20 10:11 01/25/20 10:11 Lab Results 01/25/20 01/25/20 01/25/20 Range/Units 10:11 10:11 10:11 WBC 7.58 (4.8-10.8) K/uL RBC 4.04 L (4.7-6.1) M/uL Hgb 10.1 L (14.0-18.0) g/dL Hct 32.6 L (42-52) % MCV 80.7 (80-100) fL MCH 25.0 (25-34) pg MCHC 31.0 L (32-36) g/dL RDW Std Deviation 66.4 H (36.4-46.3) fL RDW Coeff of Dante 22.4 H (11.5-14.5) % Plt Count 230 (130-400) K/uL MPV 9.8 (7.4-10.4) fL Immature Gran % (Auto) 0.3 % Neut % (Auto) 83.3 % Lymph % (Auto) 6.9 % Mellette % (Auto) 7.0 % Eos % (Auto) 2.4 % Baso % (Auto) 0.1 % Immature Gran # (Auto) 0.02 (0.00-0.02) K/uL Neut # (Auto) 6.32 (1.4-6.5) K/uL Lymph # (Auto) 0.52 L (1.2-3.4) K/uL Mellette # (Auto) 0.53 (0.11-0.59) K/uL Eos # (Auto) 0.18 (0-0.5) K/uL Baso # (Auto) 0.01 (0-0.2) K/uL Anisocytosis Present PT 12.4 H (9.0-12.0) Seconds INR 1.2 H (0.9-1.1) APTT 31.8 H (21.0-31.0) Seconds PTT Ratio 1.1 Sodium 143 (136-145) mmol/L Potassium 3.8 (3.5-5.1) mmol/L Chloride 114 H (98-107) mmol/L Carbon Dioxide 24 (21-32) mmol/L Anion Gap 5.0 (3-11) BUN 15 (7-18) mg/dl Creatinine 0.82 (0.6-1.4) mg/dl Est Cr Clr Drug Dosing 81.6 ml/min Est GFR ( Amer) 106.1 Est GFR (Non-Af Amer) 91.5 BUN/Creatinine Ratio 17.8 (10-20) Glucose 77 (70-99) mg/dl Lactate (0.4-2.0) mmol/L Calcium 8.1 L (8.5-10.1) mg/dl Magnesium 2.0 (1.8-2.4) mg/dl Total Bilirubin 0.8 (0.2-1) mg/dl AST 22 (15-37) U/L ALT 22 (12-78) U/L Alkaline Phosphatase 137 H (45-117) U/L Troponin I 0.060 H* (0-0.045) ng/ml NT-Pro-B Natriuret Pep 64988 H (0-900) pg/ml Total Protein 6.2 L (6.4-8.2) gm/dl Albumin 2.3 L (3.4-5.0) gm/dl Globulin 3.9 (2.5-4.0) gm/dl Albumin/Globulin Ratio 0.6 L (0.9-2) 01/25/20 Range/Units 10:11 WBC (4.8-10.8) K/uL RBC (4.7-6.1) M/uL Hgb (14.0-18.0) g/dL Hct (42-52) % MCV (80-100) fL MCH (25-34) pg MCHC (32-36) g/dL RDW Std Deviation (36.4-46.3) fL RDW Coeff of Dante (11.5-14.5) % Plt Count (130-400) K/uL MPV (7.4-10.4) fL Immature Gran % (Auto) % Neut % (Auto) % Lymph % (Auto) % Mellette % (Auto) % Eos % (Auto) % Baso % (Auto) % Immature Gran # (Auto) (0.00-0.02) K/uL Neut # (Auto) (1.4-6.5) K/uL Lymph # (Auto) (1.2-3.4) K/uL Mellette # (Auto) (0.11-0.59) K/uL Eos # (Auto) (0-0.5) K/uL Baso # (Auto) (0-0.2) K/uL Anisocytosis PT (9.0-12.0) Seconds INR (0.9-1.1) APTT (21.0-31.0) Seconds PTT Ratio Sodium (136-145) mmol/L Potassium (3.5-5.1) mmol/L Chloride (98-107) mmol/L Carbon Dioxide (21-32) mmol/L Anion Gap (3-11) BUN (7-18) mg/dl Creatinine (0.6-1.4) mg/dl Est Cr Clr Drug Dosing ml/min Est GFR ( Amer) Est GFR (Non-Af Amer) BUN/Creatinine Ratio (10-20) Glucose (70-99) mg/dl Lactate 1.5 (0.4-2.0) mmol/L Calcium (8.5-10.1) mg/dl Magnesium (1.8-2.4) mg/dl Total Bilirubin (0.2-1) mg/dl AST (15-37) U/L ALT (12-78) U/L Alkaline Phosphatase (45-117) U/L Troponin I (0-0.045) ng/ml NT-Pro-B Natriuret Pep (0-900) pg/ml Total Protein (6.4-8.2) gm/dl Albumin (3.4-5.0) gm/dl Globulin (2.5-4.0) gm/dl Albumin/Globulin Ratio (0.9-2) Imaging Data Radiologist's Impression: Radiology results as stated below per my review and the radiologist's interpretation: XR chest 1V portable CLINICAL HISTORY: 69 years-old Male presenting with SEPSIS. TECHNIQUE: Portable upright AP view of the chest was obtained. COMPARISON: 01/16/2020 and CTA chest from 10/14/2019. FINDINGS: Cardiopericardial silhouette markedly enlarged. Significant engorgement of the azygos vein. Mild prominence of upper lobe pulmonary vasculature. Interval worsening of the right basilar opacity. Significant worsening of the left retrocardiac opacity. Increased size of the small to moderate right pleural effusion. Trace left pleural effusion may also be present. No pneumothorax. Osseous structures normal. Upper abdomen normal. IMPRESSION: 1. Cardiomegaly with elevated right heart pressure. Mild vascular engorgement. 2. Significant interval worsening of bibasilar infiltrates. This may relate to increasing layering pleural effusions and extensive passive atelectasis. Underlying aspiration or infection not excluded. ACT 112: Negative or not required by law. Electronically signed by: Delta Gotti M.D. 01/25/2020 10:[address] abd pelvis wo con CLINICAL HISTORY: 69 years-old Male presenting with generalized abdominal pain and scrotal swelling. TECHNIQUE: Multidetector CT of the abdomen and pelvis was performed without the use of intravenous contrast. IV contrast: None. One or more dose lowering techniques were used consistent with the principles of ALARA (as low as reasonably achievable), including automatic exposure control, mA or kV adjustment to individual patient size, and/or use of iterative reconstruction. COMPARISON: 10/14/2019. CT DOSE (mGy.cm): The estimated cumulative dose is 409.86 mGy.cm. FINDINGS: Animal Geneticist topogram: Cardiomegaly. Lung bases: Moderate to marked multichamber enlargement of the heart. Coronary artery calcification. Small to moderate pericardial effusion. Moderate to large right and small left pleural effusions. Extensive dependent groundglass infiltrates increased from prior. Peribronchovascular bundle thickening. Liver: Normal morphology. Normal density. Biliary: Central predominant intrahepatic and extrahepatic biliary ductal dilatation similar to prior. Normal gallbladder. Pancreas: Normal noncontrast appearance. Underlying pancreatic ductal prominence not as well appreciated on this noncontrast study. Spleen: Normal noncontrast appearance. Adrenal glands: Normal noncontrast appearance. Kidneys and ureters: Severely atrophic right kidney. Normal noncontrast appearance of the left kidney. No hydronephrosis. Bladder: Circumferential bladder wall thickening. The morphology of the bladder may suggest underlying neurogenic bladder or prominent duodenal diverticulum arising from the anterior wall. Pelvic organs: Normal noncontrast appearance. Severe scrotal wall thickening. Underlying small to moderate right hydrocele suspected. The right hemiscrotum is not well delineated. Bowel: Mild stool burden throughout normal caliber colon. The appendix is not visualized and surgical clips are noted in the right lower quadrant. No bowel obstruction though small bowel is mildly distended in the central abdomen with a diameter of 2.5 cm. No focal transition point is appreciated. Peritoneal cavity: Small volume free fluid in the pelvis. No free intraperitoneal gas. Diffuse mesenteric edema. Lymph nodes: Noncontrast. Diffusely infiltrated fat planes secondary to edema significantly degraded evaluation. Vasculature: Diffuse atherosclerosis of the abdominal aorta and major branch vessels. 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 Abdominal wall: Severe body wall edema. Prominent abdominal wall collateral veins related to the chronic IVC occlusion. Musculoskeletal: Osseous fusion across the right sacroiliac joint. Osteopenia suspected. IMPRESSION: 1. Severe scrotal edema. This may be a consequence of volume overload. If there is concern, scrotal ultrasound is more sensitive for detection of scrotal abnormalities. 2. Severe volume overload with severe body wall edema, diffuse mesenteric edema, and bilateral pleural effusions. 3. The lack of intravenous contrast and the severity of body wall edema significantly degrades evaluation. 4. Cardiomegaly with a small to moderate pericardial effusion. 5. Extensive bibasilar groundglass dependent infiltrates likely represent moderate bibasilar pulmonary edema versus aspiration/aspiration pneumonitis. 6. Additional chronic findings as above. ACT 112: Negative or not required by law. Electronically signed by: Delta Gotti M.D. 01/25/2020 11:10 AM ECG Data Attestation: I personally reviewed and interpreted this ECG as follows: Indication: + other (Sepsis) Rate (beats per minute): 131 Rhythm: + atrial fibrillation (with RVR) ECG ST segments: no ST depression and no ST elevation ECG Findings: + Other (Low voltage) Comparison ECG Date: from (01/15/20) Change: the following changes noted (A-fib replaced normal sinus and rate has increased) Blood Pressure Blood Pressure Findings: Elevated blood pressure Blood Pressure Disposition: further management by hospitalist MAGGI Rodriges Continuous Cardiac Monitoring: An order was placed for continuous cardiac monit oring. The monitor shows a rate of 125 with an atrial fibrillation rhythm. This patient comes in as described above. he has a complex medical history. He says that his scrotum is been swollen significantly over the last 24 hours. He does have a cardiac history also also a history of testicular cancer and chronic lower extremity edema. IV acess was established and blood work was obtained his scrotum is markedly enlarged but is not red or warm significantly. There is no skin breakdown or anything suggest Napoleon's gangrene. He has no white count or fever. He initially was tachycardic but this slowed down into the low 100s. His chest x-ray shows some mild congestive changes. I did do a CAT scan the abdomen without contrast and shows fluid overload and fluid within the scrotum this is most likely related to CHF. He was given IV morphine and IV Zofran for pain and nausea management. He was also given Lasix 20 mg IV. His troponin is mildly elevated appears no chest pain at present and has no EKG changes to suggest a STEMI. He will be admitted/observed for further treatment and evaluation. Have consulted Dr. Gonzalez. Impression & Plan CHF (congestive heart failure), A-fib, Scrotal edema, Elevated troponin I tyree surement Discharge Plan Visit Data Chief Complaint: Groin Pain ED Provider: Brodie Lambert Discharge Problem: CHF (congestive heart failure), A-fib, Scrotal edema, Elevated troponin I measurement Patient Disposition: Being Evaluated by Hospitalist Discharge Instructions Interventions: ED Discharge Assessment Last Done: 01/25/20 14:05 Discharge Problem: CHF (congestive heart failure) Qualifiers: Heart failure type: unspecified Heart failure chronicity: unspecified Qualified Code(s): I50.9 - Heart failure, unspecified A-fib Qualifiers: Atrial fibrillation type: unspecified Qualified Code(s): I48.91 - Unspecified atrial fibrillation The scribe's documentation has been prepared under my direction and personally reviewed by me in its entirety. I confirm that the note above accurately reflects all work, treatment, procedures, and medical decision making performed by me.
--- NOTE | 2020-01-25 14:11 | History & Physical Report ---
Date of Service January 25, 2020 Assessment & Plan (1) CHF (congestive heart failure): He has minimal systolic heart failure secondary to ischemic: Cardiomyopathy Has A. fib with RVR and valvular heart disease is complicating CHF Presented with increasing bilateral legs, scrotum and lower abdominal swelling Received IV Lasix in the ER and will continue with 40 mg intravenously twice daily Fluid intake less than 50 mg in a day The condition does not get any better we may ask cardiology evaluation He has known vegetations in the heart which is not due to infective causes He was evaluated by pan devulcanizer and ID physicians during his last admission No need to give any antibiotic and no further investigation for this He was sent home under supervision during his last hospital stay He mentioned that he has been taking his medication after being discharged from the hospital and his medicines are rotten coordinator cardiopulmonary services should be involved for discharge planning (2) Ischemic cardiomyopathy: History of ischemic cardiomyopathy with EF of 15 to 20% (3) A-fib: Has A. fib now presenting with RVR Has not been taking his medications He is not on any anticoagulation likely secondary to noncompliance We will continue his beta-polo to control the heart rate (4) Noncompliance with medications: Has been very noncompliant with the medication Part of the problem is due to schizophrenia and he thinks that medicine is going to do harm to him at times He agreed to take the medications that will be prescribed during the hospitalization (5) HTN (hypertension): Remains controlled (6) Lymphedema of right lower extremity: Lymphedema of the right leg is complicated by edema We will continue with the wound care (7) Paranoid schizophrenia: Has paranoid schizophrenia but does not have any acute symptoms Denies any hallucinations No acute confusion DVT prophylaxis With Lovenox CODE STATUS Full-discussed with the patient History of Present Illness Chief Complaint: Bilateral legs and scrotal swelling for the last day and half Primary Care Provider: NO PCP She is a 69-year-old male homeless with significant past medical history of ischemic cardiomyopathy with chronic systolic and diastolic heart failure, atrial fibrillation not on any anticoagulation, paranoid schizophrenia, valvular heart disease, known vegetations in the heart but no infective endocarditis, chronic back pain, lymphedema of the right leg with chronic leg ulcer and anxiety apparently has been taking his medications he does not know for how long. He has been complaining of increasing swelling involving both the legs and scrotum for the last day and a half. He complains of groin pain due to increasing swelling in that area but did not have any chest pain and/or increasing shortness of breath. Denies any abdominal pain nausea and/or vomiting. No fever and/or chills and no cough or sputum production. He did not have any increasing redness and/or discharge from the right leg. He was noted to have 2-3+ edema bilaterally on presentation in the emergency room with new swelling of the scrotum and the penis and edema up to the waist. Chest x-ray showed mild congestive changes but from that point he was admitted to telemetry unit for continuation of care. Allergies Allergy/AdvReac Type Severity Reaction Status Date / Time horse dander Allergy Unknown HORSE HAIR Verified 01/25/20 10:22 tetanus toxoid, adsorbed Allergy Unknown Unknown Verified 01/25/20 10:22 Home Medications Home Medications Medication Instructions Recorded Confirmed Type aspirin [Ecotrin Low Strength] 81 mg PO QAM 30 Days #30 tab 12/13/19 01/25/20 Rx atorvastatin [Lipitor] 80 mg PO HS 30 Days #30 tab 12/13/19 01/25/20 Rx clopidogrel [Plavix] 75 mg PO DAILY #30 tab 12/13/19 01/25/20 Rx furosemide [Lasix] 40 mg PO DAILY 30 Days #30 tab 12/13/19 01/25/20 Rx lisinopril [Zestril] 5 mg PO QAM 30 Days #30 tab 12/13/19 01/25/20 Rx metoprolol succinate 12.5 mg PO DAILY 30 Days #15 tab 12/13/19 01/25/20 Rx nitroglycerin [Nitrostat] 0.4 mg SUBLINGUAL PRN PRN 30 Days 12/13/19 01/25/20 Rx #30 tab prasugrel [Effient] 10 mg PO DAILY 01/15/20 01/25/20 History Past Med/Surg History Medical History CAD (coronary artery disease) Cholecystitis, acute Chronic systolic CHF (congestive heart failure) (Acute) History of DVT (deep vein thrombosis) History of pancreatitis History of testicular cancer History of tobacco abuse Homelessness HTN (hypertension) (Chronic) "declines to take medication" Hypertension Hyperthyroidism Ischemic cardiomyopathy Lymphedema of right lower extremity (Acute) Mitral regurgitation Pleural effusion Schizophrenia (Acute) STEMI (ST elevation myocardial infarction) Tricuspid regurgitation Surgical History Hx of heart artery stent Status post cardiac catheterization Family History Other Unknown family medical history Social History Preferred Language: Bangladeshi Communication Ability: Effective Senior Laboratory Technician Required: No Beliefs That Will Affect Care: None marital status: Current Living Situation: Alone Current Living Situation Comment: apartment Other Information That Helps Us Care for You: No Feels Safe at Home: Yes Safety Concerns: Feels Safe At This Time Smoking Status: Former smoker Do You Dip or Chew Tobacco: No ; Number of Years Since Quit: 10 ; Second Hand Exposure: No ; Tobacco Cessation Education Requested by Patient: No Hx Alcohol Use: Yes Alcohol type: hard liquor Hx Substance Use: No Review of Systems Review of Systems: All systems reviewed & are unremarkable except as noted in HPI & below Physical Exam Physical Exam: Lying in bed without any distress Constitutional: + ill appearing and + thin; no acute distress Eyes: PERRL, conjunctivae normal, anicteric sclerae ENMT: external ear and nose normal, oropharynx normal Neck: trachea midline, no thyromegaly Respiratory: + respiratory distress (Shortness of breath with minimal exertion) Auscultation: + diminished lung sounds and + crackles (Bibasilar crackles) Cardiovascular: Rate/Rhythm: + abnormal rate and + abnormal rhythm Heart Sounds: + murmur (2/6 systolic murmur over precordium) Extremities: + edema (2-3+ edema bilaterally legs right more than the left with edema of the scrotum and penis) Gastrointestinal (Abdomen): Inspection/Auscultation: abdomen normal to inspection Percussion/Palpation: abdomen soft; abdomen nontender Musculoskeletal: No acute arthritis in any joints Skin: Has right leg lymphedema and the lower leg is bandaged secondary to chronic ulceration Neurologic: Alert, awake and oriented x3. Does not have any hallucinations during my examination Lymphatic: no cervical or axillary lymphadenopathy Results & Data Vital Signs (Past 12 Hours) Vital Signs Temp Pulse Resp BP Pulse Ox 01/25/20 10:30 125 H 19 01/25/20 10:00 126 H 18 01/25/20 09:30 125 H 29 H 01/25/20 09:00 110 H 19 01/25/20 08:30 102 H 16 146/108 H 100 01/25/20 08:29 103 H 30 H 90 01/25/20 08:25 115 H 29 H 147/110 H 01/25/20 08:16 36.4 C L 124 H 20 147/110 H 96 Laboratory Results Short CBC 01/25/20 Range/Units 10:11 WBC 7.58 (4.8-10.8) K/uL Hgb 10.1 L (14.0-18.0) g/dL Hct 32.6 L (42-52) % Plt Count 230 (130-400) K/uL BMP 01/25/20 10:11 Sodium 143 Potassium 3.8 Chloride 114 H Carbon Dioxide 24 BUN 15 Creatinine 0.82 Glucose 77 Calcium 8.1 L Cardiac Enzymes 01/25/20 Range/Units 10:11 Troponin I 0.060 H* (0-0.045) ng/ml Liver Function 01/25/20 Range/Units 10:11 Total Bilirubin 0.8 (0.2-1) mg/dl AST 22 (15-37) U/L ALT 22 (12-78) U/L Alkaline Phosphatase 137 H (45-117) U/L Albumin 2.3 L (3.4-5.0) gm/dl Code Status & VTE Plan VTE Prophylaxis Plan VTE Prophylaxis will be ordered: Yes (1) CHF (congestive heart failure) Heart failure chronicity: unspecified Heart failure type: unspecified Qualified Code(s): I50.9 - Heart failure, unspecified (2) A-fib Atrial fibrillation type: unspecified Qualified Code(s): I48.91 - Unspecified atrial fibrillation
[2020-01-25] MEDS ORDERED: NITROGLYCERIN SL 0.4 MG/TAB TAB SL PRN (14:38)
[2020-01-25 15:00] LABS: Appearance Urine Clear (Clear); Bilirubin Urine Negative (Negative); Blood Urine Negative (Negative); Color Urine Yellow; Glucose Urine UA Negative (Negative); Ketones Urine Negative (Negative); Leukocyte Esterase Urine Negative (Negative); Nitrite Urine Negative (Negative); Protein Urine Negative (Negative); Specific Gravity Urine 1.008 (1.000-1.030); Urobilinogen Urine Negative (Negative)
[2020-01-25] MEDS: ASPIRIN 81 MG ECTAB PO SCH (15:18)
[2020-01-25] MEDS: METOPROLOL SUCC 25MG EXT REL TAB PO SCH (15:18)
[2020-01-25] MEDS: CLOPIDOGREL BISULFATE 75 MG TAB PO SCH (15:18)
[2020-01-25] MEDS: lisinopriL 5 MG TAB PO SCH (15:19)
[2020-01-25] MEDS: ATORVASTATIN 40 MG TAB PO SCH (19:44)
[2020-01-26] MEDS: CLOPIDOGREL BISULFATE 75 MG TAB PO SCH (07:29)
[2020-01-26] MEDS: lisinopriL 5 MG TAB PO SCH (07:29)
[2020-01-26] MEDS: METOPROLOL SUCC 25MG EXT REL TAB PO SCH (07:29)
[2020-01-26] MEDS: ASPIRIN 81 MG ECTAB PO SCH ×2 (07:30→07:31)
--- NOTE | 2020-01-26 14:13 | Hospitalist Progress Note ---
Date of Service January 26, 2020 Assessment & Plan (1) CHF (congestive heart failure): presented with Vol overload /decompensated CHF with systolic heart failure underlying ischemic Cardiomyopathy medication and diet noncompliance A. fib with RVR with valvular heart disease is complicating CHF Presented with increasing bilateral legs, scrotum and lower abdominal swelling pt is continued with Aggressive diuresus with Lasix 40 mg IV BID cont to follow vol status (2) Ischemic cardiomyopathy: History of ischemic cardiomyopathy with EF of 15 to 20% presented with marked vol overload , decompensated CHF -multifactorial -rapid afib, medication non compliance cont IV diuresis monitor vol status (3) A-fib: presented with Afib RVR now remains in rate controlled afib Has not been taking his medications He is not on any anticoagulation likely secondary to noncompliance cont beta polo (4) Noncompliance with medications: Has been very noncompliant with the medication Part of the problem is due to schizophrenia and he thinks that medicine is going to do harm to him at times He agreed to take the medications that will be prescribed during the hospitalization (5) HTN (hypertension): cont out pt meds (6) Lymphedema of right lower extremity: Lymphedema of the right leg is complicated by edema We will continue with the wound care cont IV diuresis for decompensated CHF causing worsening of lower ext edema (7) Paranoid schizophrenia: Has paranoid schizophrenia but does not have any acute symptoms Denies any hallucinations No acute confusion DVT prophylaxis With Lovenox CODE STATUS Full-discussed with the patient Admission and Anticipated Discharge Date Admission Date: January 25, 2020 Subjective Complains of pain in the scrotal area secondary to marked swelling, Denies of any shortness of breath, orthopnea, nonproductive cough, no chest pain or palpitation Afebrile Review of Systems Review of Systems: All systems reviewed & are unremarkable except as noted in HPI & below Constitutional: no fever and no chills Eyes: as per Subjective / HPI Respiratory: + cough; no dyspnea, no dyspnea on exertion and no wheezing Cardiovascular: + edema; no chest pain, no dyspnea, no orthopnea and no lightheadedness Genitourinary: + scrotal swelling (Large scrotal swelling secondary to CHF volume overload) Musculoskeletal: Bilateral lower extremity swelling right more than left Physical Exam Constitutional: WD/WN, vitals as above + ill appearing Eyes: sclerae not anicteric Neck: trachea midline, no thyromegaly Respiratory: + cough Auscultation: + crackles and + rales; no wheezes Cardiovascular: Rate/Rhythm: regular rate (afib ); + abnormal rhythm (afib ) Extremities: + edema Gastrointestinal (Abdomen): Inspection/Auscultation: normal bowel sounds Percussion/Palpation: abdomen soft; abdomen nontender Musculoskeletal: large scrotal swelling , extensive pittine edema on bilateral thigh area , extending to bilat lower ext Neurologic: PERRL, EOMI, accommodation nl, no face palsy, no dysarthria Psychiatric: Orientation: alert and oriented x 3 Insight: + limited insight Results & Data ([place]) Vital Signs (Past 12 Hours) Vital Signs Temp Pulse Resp BP Pulse Ox 01/26/20 11:49 36.4 C L 83 18 111/73 100 01/26/20 07:44 36.4 C L 117 H 18 112/78 95 01/26/20 05:36 36.8 C 86 20 103/69 96 (1) CHF (congestive heart failure) Heart failure chronicity: unspecified Heart failure type: unspecified Qualified Code(s): I50.9 - Heart failure, unspecified (2) A-fib Atrial fibrillation type: unspecified Qualified Code(s): I48.91 - Unspecified atrial fibrillation
[2020-01-26] MEDS: FUROSEMIDE 40 MG in SYRINGE 0 ML IV SCH (14:41)
[2020-01-26] MEDS: MoRPHine SULFATE 2 MG/ML CARP IV PRN (18:51)
[2020-01-26] MEDS: ATORVASTATIN 40 MG TAB PO SCH (20:52)
[2020-01-26] MEDS ORDERED: TRAMADOL HCL 50 MG TABLET PO STA (21:02)
[2020-01-26] MEDS ORDERED: MICONAZOLE NITRATE POWDER 43 GM EXT PRN (22:23)
[2020-01-26] MEDS ORDERED: PROMETHAZINE HCL 12.5 MG in SODIUM CHLORIDE 0.9% 50 ML IV STA (23:13)
[2020-01-27] MEDS ORDERED: HYDROmorphone INJ 0.5 MG/0.5 ML SYR IV STA ×2 (04:05→22:01)
[2020-01-27 07:47] LABS: BUN Creatinine Ratio 19.8 (10-20); Calcium 7.7 mg/dl (8.5-10.1); Creatinine Clr Calc Pharmacy 68.9 ml/min; Est GFR (African American) 89.9; Est GFR (Non-African American) 77.5; Potassium 3.8 mmol/L (3.5-5.1)
[2020-01-27] MEDS: lisinopriL 5 MG TAB PO SCH (08:50)
[2020-01-27] MEDS: CLOPIDOGREL BISULFATE 75 MG TAB PO SCH (08:50)
[2020-01-27] MEDS: METOPROLOL SUCC 25MG EXT REL TAB PO SCH (08:51)
[2020-01-27] MEDS: ASPIRIN 81 MG ECTAB PO SCH (08:51)
[2020-01-27] MEDS: FUROSEMIDE 40 MG in SYRINGE 0 ML IV SCH ×2 (08:51→17:39)
--- NOTE | 2020-01-27 10:28 | Hospitalist Progress Note ---
Date of Service January 27, 2020 Assessment & Plan (1) CHF (congestive heart failure): presented with Vol overload /decompensated CHF with systolic heart failure underlying ischemic Cardiomyopathy medication and diet noncompliance A. fib with RVR with valvular heart disease is complicating CHF Presented with increasing bilateral legs, diffuse large scrotum and lower abdominal swelling Continue with IV Lasix 40 mg twice daily Monitor volume status intake output ELEVATED TROPONIN possible due to demand ischemia/Type 2 NSTEMI possible due to : acute on chronic systolic CHF /presentation with A Fib with RVR-Initial HR 131/hypertensive urgency -admission BP 187/130. no evidence of ACS , no chest pain , orthopnea , SOB improved after aggressive diuresis (2) Ischemic cardiomyopathy: History of ischemic cardiomyopathy with EF of 15 to 20% presented with marked vol overload , decompensated CHF -multifactorial -rapid afib, medication non compliance cont IV diuresis monitor vol status (3) A-fib: presented with Afib RVR now remains in rate controlled afib Has not been taking his medications He is not on any anticoagulation likely secondary to noncompliance cont beta polo (4) Noncompliance with medications: Has been very noncompliant with the medication Part of the problem is due to schizophrenia and he thinks that medicine is going to do harm to him at times He agreed to take the medications that will be prescribed during the hospitalization (5) HTN (hypertension): cont out pt meds (6) Lymphedema of right lower extremity: Lymphedema of the right leg is complicated by edema We will continue with the wound care cont IV diuresis for decompensated CHF causing worsening of lower ext edema (7) Paranoid schizophrenia: Has paranoid schizophrenia but does not have any acute symptoms Denies any hallucinations No acute confusion DVT prophylaxis With Lovenox CODE STATUS Full-discussed with the patient Admission and Anticipated Discharge Date Admission Date: January 25, 2020 Subjective Patient reports of feeling better, No orthopnea no shortness of breath, no hypoxia Still has persistent scrotal swelling, limiting his movement No cough, no fever chills Review of Systems Eyes: as per Subjective / HPI Respiratory: no dyspnea, no dyspnea on exertion and no wheezing Cardiovascular: + edema; no chest pain, no dyspnea, no orthopnea and no lightheadedness Genitourinary: + scrotal swelling (Large scrotal swelling secondary to CHF volume overload) Musculoskeletal: Bilateral lower extremity swelling right more than left Physical Exam Constitutional: WD/WN, vitals as above + ill appearing Eyes: sclerae not anicteric Neck: trachea midline, no thyromegaly Respiratory: + cough Auscultation: + crackles and + rales; no wheezes Cardiovascular: Rate/Rhythm: regular rate (afib ); + abnormal rhythm (afib ) Extremities: + edema Gastrointestinal (Abdomen): Inspection/Auscultation: normal bowel sounds Percussion/Palpation: abdomen soft; abdomen nontender Neurologic: PERRL, EOMI, accommodation nl, no face palsy, no dysarthria Psychiatric: Orientation: alert and oriented x 3 Insight: + limited insight Results & Data ([place]) Vital Signs (Past 12 Hours) Vital Signs Temp Pulse Resp BP Pulse Ox 01/27/20 07:06 36.6 C 75 18 93/58 L 95 01/27/20 04:30 36.6 C 73 18 98/63 L 98 01/26/20 23:24 36.3 C L 87 19 110/74 95 (1) CHF (congestive heart failure) Heart failure chronicity: unspecified Heart failure type: unspecified Qualified Code(s): I50.9 - Heart failure, unspecified (2) A-fib Atrial fibrillation type: unspecified Qualified Code(s): I48.91 - Unspecified atrial fibrillation
--- NOTE | 2020-01-27 12:20 | Electrocardiogram Report ---
Test Reason : Blood Pressure : / mmHG Vent. Rate : 131 BPM Atrial Rate : 107 BPM P-R Int : 000 ms QRS Dur : 106 ms QT Int : 342 ms P-R-T Axes : 000 072 066 degrees QTc Int : 505 ms Atrial fibrillation with rapid ventricular response Low voltage QRS Abnormal ECG When compared with ECG of 15-JAN-2020 23:55, Atrial fibrillation has replaced Sinus rhythm Confirmed by Viktor Ingram ([id number]) on 01/27/2020 12:20:33 PM Referred By: ED Confirmed By:Viktor Ingram
[2020-01-27] MEDS: ATORVASTATIN 40 MG TAB PO SCH (19:46)
[2020-01-27] MEDS: MoRPHine SULFATE 2 MG/ML CARP IV PRN (21:22)
[2020-01-28 08:14] LABS: BUN Creatinine Ratio 26.5 (10-20); Calcium 8.2 mg/dl (8.5-10.1); Creatinine Clr Calc Pharmacy 74.2 ml/min; Est GFR (African American) 102.5; Est GFR (Non-African American) 88.5; Potassium 3.6 mmol/L (3.5-5.1)
[2020-01-28] MEDS: lisinopriL 5 MG TAB PO SCH (08:53)
[2020-01-28] MEDS: FUROSEMIDE 40 MG in SYRINGE 0 ML IV SCH ×2 (08:54→16:46)
[2020-01-28] MEDS: METOPROLOL SUCC 25MG EXT REL TAB PO SCH (08:54)
[2020-01-28] MEDS: ASPIRIN 81 MG ECTAB PO SCH (08:54)
[2020-01-28] MEDS: CLOPIDOGREL BISULFATE 75 MG TAB PO SCH (08:54)
[2020-01-28] MEDS: MoRPHine SULFATE 2 MG/ML CARP IV PRN ×2 (16:52→20:42)
--- NOTE | 2020-01-28 18:24 | Hospitalist Progress Note ---
Date of Service January 28, 2020 Assessment & Plan (1) CHF (congestive heart failure): presented with Vol overload /decompensated CHF with systolic heart failure underlying ischemic Cardiomyopathy/with valvular heart disease medication and diet noncompliance Presented with increasing bilateral legs, diffuse large scrotum and lower abdominal swelling developed A. fib with RVR possible due to decompensated CHF started IV Lasix 40 mg twice daily pt is on negative balance of 2.8 L improvement of breathing, lower ext edema HR improved to rate controlled Afib in past overt paranoia noted with fluid restriction fluid restriction not ordered refusing PO lisinopril , Lopressor intermittently cont IV lasix ELEVATED TROPONIN possible due to demand ischemia/Type 2 NSTEMI possible due to : acute on chronic systolic CHF /presentation with A Fib with RVR-Initial HR 131/hypertensive urgency -admission BP 187/130. no evidence of ACS , no chest pain , orthopnea , SOB improved after aggressive diuresis Hr improved , Afib with rate controlled after diuresis (2) Ischemic cardiomyopathy: History of ischemic cardiomyopathy with EF of 15 to 20% presented with marked vol overload , decompensated CHF -multifactorial -rapid afib, medication non compliance cont IV diuresis as above monitor vol status (3) A-fib: presented with Afib RVR now remains in rate controlled afib Has not been taking his medications He is not on any anticoagulation likely secondary to noncompliance cont beta polo /pt been refusing Lopressor intermittently (4) Noncompliance with medications: Has been very noncompliant with the medication and salt and fluid restrictions Part of the problem is paranoid schizophrenia /thinks that medicine is going harm him multiple hospital admission due to similar scenario (5) HTN (hypertension): ordered for lopressor /lisinopril Lasix 40 mg IV BId (6) Lymphedema of right lower extremity: Lymphedema of the right leg is complicated by edema We will continue with the wound care cont IV diuresis for decompensated CHF causing worsening of lower ext edema (7) Paranoid schizophrenia: Has paranoid schizophrenia but does not have any acute symptoms Denies any hallucinations No acute confusion DVT prophylaxis With Lovenox CODE STATUS Full code -discussed with the patient DISPOSITION : pt lives in apartment PT/OT eval return back to apartment when medically stable Admission and Anticipated Discharge Date Admission Date: January 25, 2020 Subjective Patient reports of feeling better, No orthopnea no shortness of breath, no hypoxia Still has persistent scrotal swelling, limiting his movement No cough, no fever chills Review of Systems Eyes: as per Subjective / HPI Cardiovascular: + edema; no chest pain, no dyspnea, no orthopnea and no lightheadedness Genitourinary: + scrotal swelling (Large scrotal swelling secondary to CHF volume overload) Musculoskeletal: Bilateral lower extremity swelling right more than left Physical Exam Constitutional: WD/WN, vitals as above + ill appearing Eyes: sclerae not anicteric Neck: trachea midline, no thyromegaly Respiratory: Auscultation: + crackles and + rales; no wheezes Cardiovascular: Rate/Rhythm: regular rate (afib ); + abnormal rhythm (afib ) Extremities: + edema Gastrointestinal (Abdomen): Inspection/Auscultation: normal bowel sounds Percussion/Palpation: abdomen soft; abdomen nontender Neurologic: PERRL, EOMI, accommodation nl, no face palsy, no dysarthria Psychiatric: Orientation: alert and oriented x 3 Insight: + limited insight Results & Data ([facility]) Vital Signs (Past 12 Hours) Vital Signs Temp Pulse Pulse Resp BP Pulse Ox 01/28/20 17:22 83 01/28/20 14:21 37.2 C 87 20 120/79 98 01/28/20 11:16 36.5 C 83 18 115/71 96 01/28/20 07:48 36.6 C 84 18 120/78 99 01/28/20 07:14 78 (1) CHF (congestive heart failure) Heart failure chronicity: unspecified Heart failure type: unspecified Qualified Code(s): I50.9 - Heart failure, unspecified (2) A-fib Atrial fibrillation type: unspecified Qualified Code(s): I48.91 - Unspecified atrial fibrillation
[2020-01-28] MEDS: ATORVASTATIN 40 MG TAB PO SCH (20:41)
[2020-01-29] MEDS: MoRPHine SULFATE 2 MG/ML CARP IV PRN ×2 (00:34→19:40)
[2020-01-29] MEDS: CLOPIDOGREL BISULFATE 75 MG TAB PO SCH (08:00)
[2020-01-29] MEDS: ASPIRIN 81 MG ECTAB PO SCH (08:00)
[2020-01-29] MEDS: METOPROLOL SUCC 25MG EXT REL TAB PO SCH (08:01)
[2020-01-29] MEDS: FUROSEMIDE 40 MG in SYRINGE 0 ML IV SCH ×2 (08:02→17:55)
[2020-01-29] MEDS: lisinopriL 5 MG TAB PO SCH (08:03)
[2020-01-29 10:46] LABS: BUN Creatinine Ratio 27.9 (10-20); Calcium 8.7 mg/dl (8.5-10.1); Creatinine Clr Calc Pharmacy 62.7 ml/min; Est GFR (African American) 88.8; Est GFR (Non-African American) 76.6; Potassium 3.2 mmol/L (3.5-5.1)
[2020-01-29] MEDS ORDERED: POTASSIUM CHLORIDE 20 MEQ TABCR PO STA (14:43)
[2020-01-29] MEDS: ATORVASTATIN 40 MG TAB PO SCH (20:31)
--- NOTE | 2020-01-29 20:54 | Hospitalist Progress Note ---
Date of Service January 29, 2020 Assessment & Plan (1) CHF (congestive heart failure): Decompensated CHF with systolic heart failure underlying ischemic Cardiomyopathy/with valvular heart disease medication and diet noncompliance Presented with increasing bilateral legs, diffuse large scrotum and lower abdominal swelling developed A. fib with RVR possible due to decompensated CHF started IV Lasix 40 mg twice daily pt is on negative balance of 2.8 L improvement of breathing, lower ext edema HR improved to rate controlled Afib in past overt paranoia noted with fluid restriction fluid restriction not ordered refusing PO lisinopril , Lopressor intermittently cont IV lasix ELEVATED TROPONIN possible due to demand ischemia/Type 2 NSTEMI possible due to : acute on chronic systolic CHF /presentation with A Fib with RVR-Initial HR 131/hypertensive urgency -admission BP 187/130. no evidence of ACS , no chest pain , orthopnea , SOB improved after aggressive diuresis Hr improved , Afib with rate controlled after diuresis (2) Ischemic cardiomyopathy: Decompensated CHF with systolic heart failure Ischemic cardiomyopathy with LVEF 15-20%. Non compliant with diuretic regimen. Continue IV lasix 40mg BID . Continue lisinopril and metoprolol succinate. Denies any symptoms overload ECHO showed LV is severely dilated with EF 15-20 % Severe global Hypokinesis of left ventricles Will continue monitor closely (3) A-fib: presented with Afib RVR now remains in rate controlled afib Has not been taking his medications He is not on any anticoagulation likely secondary to noncompliance cont beta polo /pt been refusing Lopressor intermittently (4) Noncompliance with medications: Has been very noncompliant with the medication and salt and fluid restrictions Part of the problem is paranoid schizophrenia /thinks that medicine is going harm him multiple hospital admission due to similar scenario (5) HTN (hypertension): ordered for lopressor /lisinopril Lasix 40 mg IV BId (6) Lymphedema of right lower extremity: Lymphedema of the right leg is complicated by edema We will continue with the wound care cont IV diuresis for decompensated CHF causing worsening of lower ext edema (7) Paranoid schizophrenia: Has paranoid schizophrenia but does not have any acute symptoms Denies any hallucinations No acute confusion DVT prophylaxis With Lovenox CODE STATUS Full code -discussed with the patient DISPOSITION : pt lives in apartment PT/OT eval return back to apartment when medically stable Admission and Anticipated Discharge Date Admission Date: January 25, 2020 Subjective Pt was seen and examined Lying in bed with no distress Denies any chest pain, palpitation and SOB Physical Exam Physical Exam: General- No acute distress Head- atraumatic Eyes- PERRL, EOMI, ENT- Poor dentition Neck- supple, no JVD Lungs- clear to auscultation Heart- regular rhythm; +murmur Abdomen- normal bowel sounds, soft, nontender Extremities- no calf tenderness, Chronic bilateral LE swelling RLE greater than the left Neuro- alert, oriented x 3; PERRL, EOMI; no facial palsy; no dysarthria Skin- warm & dry Results & Data ([facility]) Vital Signs (Past 12 Hours) Vital Signs Temp Pulse Pulse Resp BP BP Pulse Ox 01/29/20 19:03 36.8 C 83 20 110/71 94 01/29/20 15:17 37.1 C 85 16 114/71 98 01/29/20 14:58 86 01/29/20 12:52 99 01/29/20 12:00 36.6 C 81 18 101/96 96 (1) CHF (congestive heart failure) Heart failure chronicity: unspecified Heart failure type: unspecified Qualified Code(s): I50.9 - Heart failure, unspecified (2) A-fib Atrial fibrillation type: unspecified Qualified Code(s): I48.91 - Unspecified atrial fibrillation
[2020-01-30] MEDS: lisinopriL 5 MG TAB PO SCH (07:55)
[2020-01-30] MEDS: FUROSEMIDE 40 MG in SYRINGE 0 ML IV SCH ×2 (07:55→17:20)
[2020-01-30] MEDS: CLOPIDOGREL BISULFATE 75 MG TAB PO SCH (07:56)
[2020-01-30] MEDS: METOPROLOL SUCC 25MG EXT REL TAB PO SCH (07:56)
[2020-01-30] MEDS: ASPIRIN 81 MG ECTAB PO SCH (07:56)
[2020-01-30 08:12] LABS: BUN Creatinine Ratio 34.5 (10-20); Calcium 8.7 mg/dl (8.5-10.1); Est GFR (African American) 103.5; Est GFR (Non-African American) 89.3; Potassium 3.9 mmol/L (3.5-5.1)
--- NOTE | 2020-01-30 19:12 | Hospitalist Progress Note ---
Date of Service January 30, 2020 Assessment & Plan (1) CHF (congestive heart failure): (2) Ischemic cardiomyopathy: Decompensated CHF with systolic heart failure Ischemic cardiomyopathy with LVEF 15-20%. Non compliant with diuretic regimen. Continue IV lasix 40mg BID . Continue lisinopril and metoprolol succinate. Denies any symptoms overload ECHO showed LV is severely dilated with EF 15-20 % Severe global Hypokinesis of left ventricles Will continue monitor closely (3) A-fib: presented with Afib RVR now remains in rate controlled afib Has not been taking his medications He is not on any anticoagulation likely secondary to noncompliance cont beta polo /pt been refusing Lopressor intermittently (4) Noncompliance with medications: Has been very noncompliant with the medication and salt and fluid restrictions Part of the problem is paranoid schizophrenia /thinks that medicine is going harm him multiple hospital admission due to similar scenario (5) HTN (hypertension): ordered for lopressor /lisinopril Lasix 40 mg IV BId (6) Lymphedema of right lower extremity: Lymphedema of the right leg is complicated by edema We will continue with the wound care cont IV diuresis for decompensated CHF causing worsening of lower ext edema (7) Paranoid schizophrenia: Has paranoid schizophrenia but does not have any acute symptoms Denies any hallucinations No acute confusion DVT prophylaxis With Lovenox CODE STATUS Full code -discussed with the patient DISPOSITION : pt lives in apartment PT/OT eval return back to apartment when medically stable Admission and Anticipated Discharge Date Admission Date: January 25, 2020 Subjective Pt was seen and examined Lying in bed with no distress and comfortable Pt said that he had about 4 BM today He said that morphine 4 mg did not help with the pain Denies any chest pain, palpitation and SOB Physical Exam Physical Exam: General- No acute distress Head- atraumatic Eyes- PERRL, EOMI, ENT- Poor dentition Neck- supple, no JVD Lungs- clear to auscultation Heart- regular rhythm; +murmur Abdomen- normal bowel sounds, soft, nontender Extremities- no calf tenderness, Chronic bilateral LE swelling RLE greater than the left Neuro- alert, oriented x 3; PERRL, EOMI; no facial palsy; no dysarthria Skin- warm & dry Results & Data ([facility]) Vital Signs (Past 12 Hours) Vital Signs Temp Pulse Resp BP BP Pulse Ox 01/30/20 15:51 37.0 C 93 H 18 113/70 96 01/30/20 10:56 36.5 C 80 18 121/71 95 01/30/20 07:20 36.7 C 87 18 135/89 99 (1) CHF (congestive heart failure) Heart failure chronicity: unspecified Heart failure type: unspecified Qualified Code(s): I50.9 - Heart failure, unspecified (2) A-fib Atrial fibrillation type: unspecified Qualified Code(s): I48.91 - Unspecified atrial fibrillation
[2020-01-30] MEDS: ATORVASTATIN 40 MG TAB PO SCH (21:02)
[2020-01-31] MEDS: MoRPHine SULFATE 2 MG/ML CARP IV PRN (00:20)
[2020-01-31 08:22] LABS: BUN Creatinine Ratio 36.6 (10-20); Calcium 8.7 mg/dl (8.5-10.1); Creatinine Clr Calc Pharmacy 64.2 ml/min; Est GFR (African American) 100.7; Est GFR (Non-African American) 86.9; Potassium 3.9 mmol/L (3.5-5.1)
[2020-01-31] MEDS: METOPROLOL SUCC 25MG EXT REL TAB PO SCH (08:52)
[2020-01-31] MEDS: CLOPIDOGREL BISULFATE 75 MG TAB PO SCH (08:52)
[2020-01-31] MEDS: lisinopriL 5 MG TAB PO SCH (08:52)
[2020-01-31] MEDS: FUROSEMIDE 40 MG in SYRINGE 0 ML IV SCH ×2 (08:52→18:02)
[2020-01-31] MEDS: ASPIRIN 81 MG ECTAB PO SCH (08:53)
--- NOTE | 2020-01-31 19:33 | Hospitalist Progress Note ---
Date of Service January 31, 2020 Assessment & Plan (1) CHF (congestive heart failure): (2) Ischemic cardiomyopathy: Decompensated CHF with systolic heart failure Ischemic cardiomyopathy with LVEF 15-20%. Non compliant with diuretic regimen. Continue IV lasix 40mg BID . Continue lisinopril and metoprolol succinate. Denies any symptoms overload ECHO showed LV is severely dilated with EF 15-20 % Severe global Hypokinesis of left ventricles Will continue monitor closely (3) A-fib: presented with Afib RVR now remains in rate controlled afib Has not been taking his medications He is not on any anticoagulation likely secondary to noncompliance cont beta polo /pt been refusing Lopressor intermittently (4) HTN (hypertension): ordered for lopressor /lisinopril Lasix 40 mg IV BId (5) Lymphedema of right lower extremity: Lymphedema of the right leg is complicated by edema We will continue with the wound care cont IV diuresis for decompensated CHF causing worsening of lower ext edema (6) Paranoid schizophrenia: Has paranoid schizophrenia but does not have any acute symptoms Denies any hallucinations No acute confusion DVT prophylaxis With Lovenox CODE STATUS Full code -discussed with the patient DISPOSITION : pt lives in apartment PT/OT eval return back to apartment when medically stable Admission and Anticipated Discharge Date Admission Date: January 25, 2020 Subjective Pt was seen and examined Lying in bed with no distress Denies any chest pain, palpitation and SOB Physical Exam Physical Exam: General- No acute distress Head- atraumatic Eyes- PERRL, EOMI, ENT- Poor dentition Neck- supple, no JVD Lungs- clear to auscultation Heart- regular rhythm; +murmur Abdomen- normal bowel sounds, soft, nontender Extremities- no calf tenderness, Chronic bilateral LE swelling RLE greater than the left Neuro- alert, oriented x 3; PERRL, EOMI; no facial palsy; no dysarthria Skin- warm & dry Results & Data ([facility]) Vital Signs (Past 12 Hours) Vital Signs Temp Pulse Resp BP BP Pulse Ox 01/31/20 16:06 36.4 C L 82 18 97/61 L 95 01/31/20 12:00 36.6 C 82 18 97/60 L 95 01/31/20 07:53 36.3 C L 88 18 129/81 96 (1) CHF (congestive heart failure) Heart failure chronicity: unspecified Heart failure type: unspecified Qualified Code(s): I50.9 - Heart failure, unspecified (2) A-fib Atrial fibrillation type: unspecified Qualified Code(s): I48.91 - Unspecified atrial fibrillation
[2020-01-31] MEDS ORDERED: ACETAMINOPHEN 1,000 MG/100 ML VIAL IV ONE (20:02)
[2020-01-31] MEDS: ATORVASTATIN 40 MG TAB PO SCH (20:58)
[2020-02-01] MEDS: FUROSEMIDE 40 MG in SYRINGE 0 ML IV SCH ×2 (08:21→17:43)
[2020-02-01] MEDS: METOPROLOL SUCC 25MG EXT REL TAB PO SCH (08:21)
[2020-02-01] MEDS: CLOPIDOGREL BISULFATE 75 MG TAB PO SCH (08:21)
[2020-02-01] MEDS: lisinopriL 5 MG TAB PO SCH (08:21)
[2020-02-01] MEDS: ASPIRIN 81 MG ECTAB PO SCH (08:21)
--- NOTE | 2020-02-01 18:54 | Hospitalist Progress Note ---
Date of Service February 01, 2020 Assessment & Plan (1) CHF (congestive heart failure): (2) Ischemic cardiomyopathy: Decompensated CHF with systolic heart failure Ischemic cardiomyopathy with LVEF 15-20%. Non compliant with diuretic regimen. Continue IV lasix 40mg BID . Continue lisinopril and metoprolol succinate. Denies any symptoms overload ECHO showed LV is severely dilated with EF 15-20 % Severe global Hypokinesis of left ventricles Will continue monitor closely (3) A-fib: presented with Afib RVR now remains in rate controlled afib Has not been taking his medications He is not on any anticoagulation likely secondary to noncompliance cont beta polo /pt been refusing Lopressor intermittently (4) HTN (hypertension): ordered for lopressor /lisinopril Lasix 40 mg IV BId (5) Lymphedema of right lower extremity: Lymphedema of the right leg is complicated by edema We will continue with the wound care cont IV diuresis for decompensated CHF causing worsening of lower ext edema (6) Paranoid schizophrenia: Has paranoid schizophrenia but does not have any acute symptoms Denies any hallucinations No acute confusion DVT prophylaxis With Lovenox CODE STATUS Full code -discussed with the patient DISPOSITION : pt lives in apartment PT/OT eval return back to apartment when medically stable Admission and Anticipated Discharge Date Admission Date: January 25, 2020 Subjective Pt was seen and examined Lying in bed with no distress pt said that his leg and his breathing much better today Pt said that he continue to diuresis well Denies any chest pain, palpitation and SOB Physical Exam Physical Exam: General- No acute distress Head- atraumatic Eyes- PERRL, EOMI, ENT- Poor dentition Neck- supple, no JVD Lungs- clear to auscultation Heart- regular rhythm; +murmur Abdomen- normal bowel sounds, soft, nontender Extremities- no calf tenderness, Chronic bilateral LE swelling RLE greater than the left Neuro- alert, oriented x 3; PERRL, EOMI; no facial palsy; no dysarthria Skin- warm & dry Results & Data ([facility]) Vital Signs (Past 12 Hours) Vital Signs Temp Pulse Pulse Resp BP Pulse Ox 02/01/20 16:12 88 02/01/20 14:40 36.7 C 88 20 113/75 98 02/01/20 11:37 36.5 C 83 20 109/76 97 02/01/20 07:08 36.4 C L 83 20 126/85 98 02/01/20 07:00 76 (1) CHF (congestive heart failure) Heart failure chronicity: unspecified Heart failure type: unspecified Qualified Code(s): I50.9 - Heart failure, unspecified (2) A-fib Atrial fibrillation type: unspecified Qualified Code(s): I48.91 - Unspecified atrial fibrillation
[2020-02-01] MEDS: ATORVASTATIN 40 MG TAB PO SCH (21:22)
[2020-02-01] MEDS: MoRPHine SULFATE 2 MG/ML CARP IV PRN (23:41)
[2020-02-02 07:04] LABS: BUN Creatinine Ratio 42.4 (10-20); Calcium 8.9 mg/dl (8.5-10.1); Creatinine Clr Calc Pharmacy 62.9 ml/min; Est GFR (African American) 96.8; Est GFR (Non-African American) 83.6
[2020-02-02] MEDS: lisinopriL 5 MG TAB PO SCH (08:30)
[2020-02-02] MEDS: ASPIRIN 81 MG ECTAB PO SCH (08:30)
[2020-02-02] MEDS: FUROSEMIDE 40 MG in SYRINGE 0 ML IV SCH ×4 (08:30→18:09)
[2020-02-02] MEDS: METOPROLOL SUCC 25MG EXT REL TAB PO SCH (08:30)
[2020-02-02] MEDS: CLOPIDOGREL BISULFATE 75 MG TAB PO SCH (08:30)
[2020-02-02] MEDS: MoRPHine SULFATE 2 MG/ML CARP IV PRN (12:58)
[2020-02-02] MEDS ORDERED: ONDANSETRON INJ 2 MG/ML 2 ML VIAL IV PRN (18:17)
[2020-02-02] MEDS ORDERED: PROCHLORPERAZINE 5 MG in SYRINGE 4 ML IV PRN (18:18)
--- NOTE | 2020-02-02 19:00 | Hospitalist Progress Note ---
Date of Service February 02, 2020 Assessment & Plan (1) CHF (congestive heart failure): (2) Ischemic cardiomyopathy: Decompensated CHF with systolic heart failure Ischemic cardiomyopathy with LVEF 15-20%. Non compliant with diuretic regimen. Continue IV lasix 40mg BID . Continue lisinopril and metoprolol succinate. Denies any symptoms overload ECHO showed LV is severely dilated with EF 15-20 % Severe global Hypokinesis of left ventricles Will continue monitor closely Refused morning dose of lasix Diuresis very well (3) A-fib: presented with Afib RVR now remains in rate controlled afib Has not been taking his medications He is not on any anticoagulation likely secondary to noncompliance cont beta polo /pt been refusing Lopressor intermittently (4) HTN (hypertension): ordered for lopressor /lisinopril Lasix 40 mg IV BId (5) Lymphedema of right lower extremity: Lymphedema of the right leg is complicated by edema We will continue with the wound care cont IV diuresis for decompensated CHF causing worsening of lower ext edema (6) Paranoid schizophrenia: Has paranoid schizophrenia but does not have any acute symptoms Denies any hallucinations No acute confusion DVT prophylaxis With Lovenox CODE STATUS Full code -discussed with the patient DISPOSITION : pt lives in apartment PT/OT eval return back to apartment when medically stable Admission and Anticipated Discharge Date Admission Date: January 25, 2020 Subjective Pt was seen and examined Lying in bed with no distress Pt said that he feels nauseated he said that the food was not good today Pt refused lasix this morning because he lost weight while being diuresis After taking to him, he agreed to take he after lasix dose Denies any chest pain, palpitation and SOB Physical Exam Physical Exam: General- No acute distress Head- atraumatic Eyes- PERRL, EOMI, ENT- Poor dentition Neck- supple, no JVD Lungs- clear to auscultation Heart- regular rhythm; +murmur Abdomen- normal bowel sounds, soft, nontender Extremities- no calf tenderness, Chronic bilateral LE swelling RLE greater than the left Neuro- alert, oriented x 3; PERRL, EOMI; no facial palsy; no dysarthria Skin- warm & dry Results & Data ([facility]) Vital Signs (Past 12 Hours) Vital Signs Temp Pulse Pulse Resp BP Pulse Ox 02/02/20 15:45 84 02/02/20 15:20 36.6 C 84 20 99/66 L 98 02/02/20 12:50 104/64 02/02/20 11:06 36.4 C L 84 18 107/67 97 02/02/20 07:44 79 02/02/20 06:58 36.5 C 78 20 119/80 98 (1) CHF (congestive heart failure) Heart failure chronicity: unspecified Heart failure type: unspecified Qualified Code(s): I50.9 - Heart failure, unspecified (2) A-fib Atrial fibrillation type: unspecified Qualified Code(s): I48.91 - Unspecified atrial fibrillation
[2020-02-02] MEDS: ATORVASTATIN 40 MG TAB PO SCH (21:10)
[2020-02-03] MEDS: FUROSEMIDE 40 MG in SYRINGE 0 ML IV SCH ×2 (08:33→16:22)
[2020-02-03] MEDS: METOPROLOL SUCC 25MG EXT REL TAB PO SCH (08:33)
[2020-02-03] MEDS: ASPIRIN 81 MG ECTAB PO SCH (08:33)
[2020-02-03] MEDS: CLOPIDOGREL BISULFATE 75 MG TAB PO SCH (08:34)
[2020-02-03] MEDS: lisinopriL 5 MG TAB PO SCH (08:34)
[2020-02-03] MEDS: MoRPHine SULFATE 2 MG/ML CARP IV PRN (16:52)
--- NOTE | 2020-02-03 19:40 | Hospitalist Progress Note ---
Date of Service February 03, 2020 Assessment & Plan (1) CHF (congestive heart failure): (2) Ischemic cardiomyopathy: Decompensated CHF with systolic heart failure Ischemic cardiomyopathy with LVEF 15-20%. Non compliant with diuretic regimen. Continue IV lasix 40mg BID . Continue lisinopril and metoprolol succinate. ECHO showed LV is severely dilated with EF 15-20 % Severe global Hypokinesis of left ventricles Diuresis very well and lost 13 kg so far Will continue monitor closely Refused morning dose of lasix Clinically improves significantly (3) A-fib: presented with Afib RVR now remains in rate controlled afib Has not been taking his medications He is not on any anticoagulation likely secondary to noncompliance cont beta polo /pt been refusing Lopressor intermittently (4) HTN (hypertension): ordered for lopressor /lisinopril Lasix 40 mg IV BId (5) Lymphedema of right lower extremity: Lymphedema of the right leg is complicated by edema We will continue with the wound care cont IV diuresis for decompensated CHF causing worsening of lower ext edema (6) Paranoid schizophrenia: Has paranoid schizophrenia but does not have any acute symptoms Denies any hallucinations No acute confusion DVT prophylaxis With Lovenox CODE STATUS Full code -discussed with the patient DISPOSITION : Plan to discharge home tomorrow PT/OT eval return back to apartment when medically stable Admission and Anticipated Discharge Date Admission Date: January 25, 2020 Subjective Pt was seen and examined Lying in bed with no distress Pt said that he feels nauseated today He said that he did not eat today Denies any chest pain, palpitation and SOB Physical Exam Physical Exam: General- No acute distress Head- atraumatic Eyes- PERRL, EOMI, ENT- Poor dentition Neck- supple, no JVD Lungs- clear to auscultation Heart- regular rhythm; +murmur Abdomen- normal bowel sounds, soft, nontender Extremities- no calf tenderness, Chronic bilateral LE swelling RLE greater than the left Neuro- alert, oriented x 3; PERRL, EOMI; no facial palsy; no dysarthria Skin- warm & dry Results & Data ([facility]) Vital Signs (Past 12 Hours) Vital Signs Temp Pulse Pulse Resp BP Pulse Ox 02/03/20 19:30 36.7 C 87 18 108/69 99 02/03/20 15:59 36.7 C 93 H 18 116/79 99 02/03/20 15:34 83 02/03/20 11:02 36.8 C 93 H 19 114/68 98 (1) CHF (congestive heart failure) Heart failure chronicity: unspecified Heart failure type: unspecified [place] lified Code(s): I50.9 - Heart failure, unspecified (2) A-fib Atrial fibrillation type: unspecified Qualified Code(s): I48.91 - Unspecified atrial fibrillation
[2020-02-03] MEDS: ATORVASTATIN 40 MG TAB PO SCH (20:00)
[2020-02-04] MEDS: METOPROLOL SUCC 25MG EXT REL TAB PO SCH (09:53)
[2020-02-04] MEDS: lisinopriL 5 MG TAB PO SCH (09:54)
[2020-02-04] MEDS: CLOPIDOGREL BISULFATE 75 MG TAB PO SCH (09:54)
[2020-02-04] MEDS: ASPIRIN 81 MG ECTAB PO SCH (10:09)
[2020-02-04] MEDS: FUROSEMIDE 40 MG in SYRINGE 0 ML IV SCH (10:09)
--- NOTE | 2020-02-04 14:30 | Hospitalist Progress Note ---
Date of Service February 04, 2020 Assessment & Plan (1) CHF (congestive heart failure): (2) Ischemic cardiomyopathy: Decompensated CHF with systolic heart failure Ischemic cardiomyopathy with LVEF 15-20%. Non compliant with diuretic regimen. Continue IV lasix 40mg BID . Continue lisinopril and metoprolol succinate. ECHO showed LV is severely dilated with EF 15-20 % Severe global Hypokinesis of left ventricles Diuresis very well and lost 13 kg so far Will continue monitor closely Refused morning dose of lasix today Advised pt to take his oral lasix on discharge Clinically improves significantly (3) A-fib: presented with Afib RVR now remains in rate controlled afib Has not been taking his medications He is not on any anticoagulation likely secondary to noncompliance cont beta polo /pt been refusing Lopressor intermittently (4) HTN (hypertension): ordered for lopressor /lisinopril Lasix 40 mg IV BId (5) Lymphedema of right lower extremity: Lymphedema of the right leg is complicated by edema We will continue with the wound care cont IV diuresis for decompensated CHF causing worsening of lower ext edema (6) Paranoid schizophrenia: Has paranoid schizophrenia but does not have any acute symptoms Denies any hallucinations No acute confusion DVT prophylaxis With Lovenox CODE STATUS Full code DISPOSITION : Plan to discharge home today PT/OT eval return back to apartment when medically stable Admission and Anticipated Discharge Date Admission Date: January 25, 2020 Subjective Pt was seen and examined Lying in bed with no distress Pt said that he is feeling much better Denies any chest pain, palpitation and SOB Physical Exam Physical Exam: General- No acute distress Head- atraumatic Eyes- PERRL, EOMI, ENT- Poor dentition Neck- supple, no JVD Lungs- clear to auscultation Heart- regular rhythm; +murmur Abdomen- normal bowel sounds, soft, nontender Extremities- no calf tenderness, Chronic bilateral LE swelling RLE greater than the left Neuro- alert, oriented x 3; PERRL, EOMI; no facial palsy; no dysarthria Skin- warm & dry Results & Data ([facility]) Vital Signs (Past 12 Hours) Vital Signs Temp Pulse Pulse Resp BP Pulse Ox 02/04/20 07:30 73 02/04/20 06:32 36.4 C L 77 18 103/69 96 02/04/20 03:53 36.6 C 77 16 95/67 L 98 (1) CHF (congestive heart failure) Heart failure chronicity: unspecified Heart failure type: unspecified Qualified Code(s): I50.9 - Heart failure, unspecified (2) A-fib Atrial fibrillation type: unspecified Qualified Code(s): I48.91 - Unspecified atrial fibrillation
--- NOTE | 2020-02-06 16:35 | Discharge Summary ---
Date of Service February 04, 2020 Admission HPI Per Admitting Provider She is a 69-year-old male homeless with significant past medical history of ischemic cardiomyopathy with chronic systolic and diastolic heart failure, atrial fibrillation not on any anticoagulation, paranoid schizophrenia, valvular heart disease, known vegetations in the heart but no infective endocarditis, chronic back pain, lymphedema of the right leg with chronic leg ulcer and anxiety apparently has been taking his medications he does not know for how long. He has been complaining of increasing swelling involving both the legs and scrotum for the last day and a half. He complains of groin pain due to increasing swelling in that area but did not have any chest pain and/or increasing shortness of breath. Denies any abdominal pain nausea and/or vomiting. No fever and/or chills and no cough or sputum production. He did not have any increasing redness and/or discharge from the right leg. He was noted to have 2-3+ edema bilaterally on presentation in the emergency room with new swelling of the scrotum and the penis and edema up to the waist. Chest x-ray showed mild congestive changes but from that point he was admitted to telemetry unit for continuation of care. Admission Exam Per Admitting Provider Physical Exam: Lying in bed without any distress Constitutional: + ill appearing and + thin; no acute distress Eyes: PERRL, conjunctivae normal, anicteric sclerae ENMT: external ear and nose normal, oropharynx normal Neck: trachea midline, no thyromegaly Respiratory: + respiratory distress (Shortness of breath with minimal exertion) Auscultation: + diminished lung sounds and + crackles (Bibasilar crackles) Cardiovascular: + abnormal rate and + abnormal rhythm Heart Sounds: + murmur (2/6 systolic murmur over precordium) Extremities: + edema (2-3+ edema bilaterally legs right more than the left with edema of the scrotum and penis) Gastrointestinal: Inspection/Auscultation: abdomen normal to inspection Percussion/Palpation: abdomen soft; abdomen nontender Musculoskeletal: No acute arthritis in any joints Skin: Has right leg lymphedema and the lower leg is bandaged secondary to chronic ulceration Neurologic: Alert, awake and oriented x3. Does not have any hallucinations during my examination Lymphatic: no cervical or axillary lymphadenopathy Principal Diagnosis (1) CHF (congestive heart failure): (2) Ischemic cardiomyopathy: (3) Atrial fibrillation (4) HTN (hypertension): (5) Lymphedema of right lower extremity: Discharge Exam General- No acute distress Head- atraumatic Eyes- PERRL, EOMI, ENT- Poor dentition Neck- supple, no JVD Lungs- clear to auscultation Heart- regular rhythm; +murmur Abdomen- normal bowel sounds, soft, nontender Extremities- no calf tenderness, Chronic bilateral LE swelling RLE greater than the left Neuro- alert, oriented x 3; PERRL, EOMI; no facial palsy; no dysarthria Skin- warm & dry Discharge Data Allergies Allergy/AdvReac Type Severity Reaction Status Date / Time horse dander Allergy Unknown HORSE HAIR Verified 01/25/20 10:22 tetanus toxoid, adsorbed Allergy Unknown Unknown Verified 01/25/20 10:22 Consultations 01/25/20 11:30 ED Decision to Admit Stat 01/28/20 18:56 Consult Case Management - Discharge Planning Routine Ordered Studies 01/25/20 08:55 CT abd pelvis wo con Stat XR chest 1V portable CLINICAL HISTORY: 69 years-old Male presenting with SEPSIS. TECHNIQUE: Portable upright AP view of the chest was obtained. COMPARISON: 01/16/2020 and CTA chest from 10/14/2019. FINDINGS: Cardiopericardial silhouette markedly enlarged. Significant engorgement of the azygos vein. Mild prominence of upper lobe pulmonary vasculature. Interval worsening of the right basilar opacity. Significant worsening of the left retrocardiac opacity. Increased size of the small to moderate right pleural effusion. Trace left pleural effusion may also be present. No pneumothorax. Osseous structures normal. Upper abdomen normal. IMPRESSION: 1. Cardiomegaly with elevated right heart pressure. Mild vascular engorgement. 2. Significant interval worsening of bibasilar infiltrates. This may relate to increasing layering pleural effusions and extensive passive atelectasis. Underlying aspiration or infection not excluded. ACT 112: Negative or not required by law. Electronically signed by: Delta Gotti M.D. 01/25/2020 10:01 AM Dictated: 01/25/20958 Transcribed: 01/25/20958 CT abd pelvis wo con CLINICAL HISTORY: 69 years-old Male presenting with generalized abdominal pain and scrotal swelling. TECHNIQUE: Multidetector CT of the abdomen and pelvis was performed without the use of intravenous contrast. IV contrast: None. One or more dose lowering techniques were used consistent with the principles of ALARA (as low as reasonably achievable), including automatic exposure control, mA or kV adjustment to individual patient size, and/or use of iterative reconstruction. COMPARISON: 10/14/2019. CT DOSE (mGy.cm): The estimated cumulative dose is 409.86 mGy.cm. FINDINGS: Gasfitter topogram: Cardiomegaly. Lung bases: Moderate to marked multichamber enlargement of the heart. Coronary artery calcification. Small to moderate pericardial effusion. Moderate to large right and small left pleural effusions. Extensive dependent groundglass infiltrates increased from prior. Peribronchovascular bundle thickening. Liver: Normal morphology. Normal density. Biliary: Central predominant intrahepatic and extrahepatic biliary ductal dilatation similar to prior. Normal gallbladder. Pancreas: Normal noncontrast appearance. Underlying pancreatic ductal prominence not as well appreciated on this noncontrast study. Spleen: Normal noncontrast appearance. Adrenal glands: Normal noncontrast appearance. Kidneys and ureters: Severely atrophic right kidney. Normal noncontrast appearance of the left kidney. No hydronephrosis. Bladder: Circumferential bladder wall thickening. The morphology of the bladder may suggest underlying neurogenic bladder or prominent duodenal diverticulum arising from the anterior wall. Pelvic organs: Normal noncontrast appearance. Severe scrotal wall thickening. Underlying small to moderate right hydrocele suspected. The right hemiscrotum is not well delineated. Bowel: Mild stool burden throughout normal caliber colon. The appendix is not visualized and surgical clips are noted in the right lower quadrant. No bowel obstruction though small bowel is mildly distended in the central abdomen with a diameter of 2.5 cm. No focal transition point is appreciated. Peritoneal cavity: Small volume free fluid in the pelvis. No free intraperitoneal gas. Diffuse mesenteric edema. Lymph nodes: Noncontrast. Diffusely infiltrated fat planes secondary to edema significantly degraded evaluation. Vasculature: Diffuse atherosclerosis of the abdominal aorta and major branch vessels. 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 Abdominal wall: Severe body wall edema. Prominent abdominal wall collateral veins related to the chronic IVC occlusion. Musculoskeletal: Osseous fusion across the right sacroiliac joint. Osteopenia suspected. IMPRESSION: 1. Severe scrotal edema. This may be a consequence of volume overload. If there is concern, scrotal ultrasound is more sensitive for detection of scrotal abnormalities. 2. Severe volume overload with severe body wall edema, diffuse mesenteric edema, and bilateral pleural effusions. 3. The lack of intravenous contrast and the severity of body wall edema significantly degrades evaluation. 4. Cardiomegaly with a small to moderate pericardial effusion. 5. Extensive bibasilar groundglass dependent infiltrates likely represent moderate bibasilar pulmonary edema versus aspiration/aspiration pneumonitis. 6. Additional chronic findings as above. ACT 112: Negative or not required by law. Electronically signed by: Delta Gotti M.D. 01/25/2020 11:10 AM Dictated: 01/25/20 110 Transcribed: 01/25/20 1104 Hospital Course (1) CHF (congestive heart failure): Decompensated CHF with systolic heart failure underlying ischemic Cardiomyopathy/with valvular heart disease medication and diet noncompliance Presented with increasing bilateral legs, diffuse large scrotum and lower abdominal swelling developed A. fib with RVR possible due to decompensated CHF started IV Lasix 40 mg twice daily pt is on negative balance of 2.8 L improvement of breathing, lower ext edema HR improved to rate controlled Afib in past overt paranoia noted with fluid restriction fluid restriction not ordered refusing PO lisinopril , Lopressor intermittently cont IV lasix ELEVATED TROPONIN possible due to demand ischemia/Type 2 NSTEMI possible due to : acute on chronic systolic CHF /presentation with A Fib with RVR-Initial HR 131/hypertensive urgency -admission BP 187/130. no evidence of ACS , no chest pain , orthopnea , SOB improved after aggressive diuresis Hr improved , Afib with rate controlled after diuresis (2) Ischemic cardiomyopathy: Decompensated CHF with systolic heart failure Ischemic cardiomyopathy with LVEF 15-20%. Non compliant with diuretic regimen. Continue IV lasix 40mg BID . Continue lisinopril and metoprolol succinate. ECHO showed LV is severely dilated with EF 15-20 % Severe global Hypokinesis of left ventricles Diuresis very well and lost 13 kg so far Will continue monitor closely Refused morning dose of lasix today Advised pt to take his oral lasix on discharge Clinically improves significantly (3) A-fib: presented with Afib RVR now remains in rate controlled afib Has not been taking his medications He is not on any anticoagulation likely secondary to noncompliance cont beta polo /pt been refusing Lopressor intermittently (4) HTN (hypertension): ordered for lopressor /lisinopril Lasix 40 mg IV BId (5) Lymphedema of right lower extremity: Lymphedema of the right leg is complicated by edema We will continue with the wound care cont IV diuresis for decompensated CHF causing worsening of lower ext edema (6) Paranoid schizophrenia: Has paranoid schizophrenia but does not have any acute symptoms Denies any hallucinations No acute confusion DVT prophylaxis With Lovenox CODE STATUS Full code DISPOSITION : Plan to discharge home today PT/OT eval return back to apartment when medically stable Total Time Total Time Spent Total Time Spent (In Minutes): 35 minutes Total Time Includes: Examination of the Patient, Discharge Planning, Medication Reconciliation, Communication With Other Providers and Other Discharge Plan Discharge Items Patient Disposition: Home - Self-Care Reason For Visit: CHF,AF Discharge Diagnosis: (1) CHF (congestive heart failure): (2) Ischemic cardiomyopathy: (3) Atrial fibrillation (4) HTN (hypertension): (5) Lymphedema of right lower extremity: Activity: Resume your previous activity Non-emergency contact: Primary Care Provider Call non-emergency contact if: you have any medication questions and your temperature is above 101 Follow-up/Referrals: PCP,NO [Primary Care Provider] - Diet: Heart Healthy and Low Sodium (2gm) Addtl Attending Provider Instructions: Follow up with your primary care provider Dr. Vora in 1 week Continue physical and occupational therapy Fall precaution Fluid restrictions to 1.5L daily It is very important to take the lasix to help remove excess water in your body IT IS VERY IMPORTANT FOR YOU TO TAKE MEDICATIONS DIRECTED Call your Primary Care doctor if any of the following symptoms or problems start or get worse: Shortness of breath or difficulty breathing Wake up at night short of breath Chest pain Cough Swelling of your hands, feet, or legs More fatigued or tired with your normal activity Palpitations - sudden fast heart beats WEIGHT Weigh yourself every morning after using the bathroom. Use the same scale. Wear the same amount of clothing. Write your weight down on a chart. Call your Primary Care doctor if you gain more than 2-3 pounds in 1-2 days. MEDICATIONS Use this discharge instruction sheet for medication instructions. Take your medications at the time your doctor ordered. Do not skip a dose of your medicines. If you miss a dose of medicine, take it as soon as possible, but DO NOT DOUBLE A DOSE. Read your medicine information when you get home. Know all of the side effects of your medicine. If in doubt, ask your pharmacist Call your Primary Care doctor's office if you have any side effects. Be sure all of your doctors know what medicine and herbs you take (including cold, flu, and herbal medicine). Take the following with you to your follow-up doctor appointments: Weight Chart Medication List List of questions Do not drink excessive alcohol, beer or wine. Pending Studies at Discharge: No Stand-Alone Forms: [facility], Smoking Cessation Medications and DC Order Prescriptions: Continued nitroglycerin [Nitrostat] 0.4 mg Tablet, Sublingual 0.4 mg sublingual PRN PRN (Reason: chest pain) 30 Days Qty: 30 RF: 0 furosemide [Lasix] 40 mg tablet 40 mg PO DAILY 30 Days Qty: 30 RF: 1 atorvastatin [Lipitor] 80 mg Tablet 80 mg PO HS 30 Days Qty: 30 RF: 0 clopidogrel [Plavix] 75 mg tablet 75 mg PO DAILY Qty: 30 RF: 0 aspirin [Ecotrin Low Strength] 81 mg Tablet,Delayed Release (Dr/Ec) 81 mg PO QAM 30 Days Qty: 30 RF: 0 lisinopril [Zestril] 5 mg Tablet 5 mg PO QAM 30 Days Qty: 30 RF: 1 metoprolol succinate 25 mg Tablet Extended Release 24 Hr 12.5 mg PO DAILY 30 Days Qty: 15 RF: 1 Discontinued prasugrel [Effient] 10 mg tablet 10 mg PO DAILY RF: 0 Discharge Orders: Discharge Order (Routine); Ordered 02/04/20 Ordered By: Funmi Valentine Admission Data Admit Date/Time: 01/25/20 12:11 Attending Provider: Funmi Valentine Admit Provider: Meredith Gonzalez Primary Care Provider: PCP,NO Other Providers: Meredith Gonzalez ; Joy Belle Other Interventions: Discharge Summary Assessment (RN) Last Done: 02/04/20 15:03 DC Date/Time DO NOT enter until pt leaves facility: 02/04/20 15:50
== END 2020-02-04 15:50 | disposition home or self-care (01) | DRG 281 ==
LOC: ED 08:22 → 2S 12:11 → SUATTDRO 12:11 → 2S 14:05 → 2W 01-28 13:06

== ENCOUNTER 2020-04-24 14:55 | Inpatient (IN) ==
[2020-04-24] MEDS ORDERED: FUROSEMIDE 40 MG/4 ML VIAL IV STA (15:48)
--- NOTE | 2020-04-24 15:57 | Emergency Department Note ---
Impression & Plan CHF exacerbation, Scrotal edema, Fluid overload, Noncompliance with medications, Leg edema ED Provider Note Provider: Dorian Matta MD DATE OF SERVICE: 04/24/2020 CHIEF COMPLAINT: Swelling HISTORY OF PRESENT ILLNESS: Patient is a 69-year-old gentleman with a history of atrial fibrillation on anticoagulation, ischemic cardiopathy heart failure, schizophrenia, valvular disease, back pain, chronic lymphedema and ulcer of the right leg presenting today due to worsening swelling over the last week or so. Patient states that since discharge at the beginning of January of this year he has not had any of his home medications. Patient states he has had some shortness of breath with exertion of movement. Patient states a significant swelling of his legs now up through his scrotum and into his lower abdomen. Patient states he has significant scrotal swelling and some discomfort today it is a little bit better than 2 days ago but still uncomfortable. Patient states occasionally had some intermittent chest pain. Denies any trauma. Denies fever. Denies nausea. Patient states he has no ability to keep his medications use the bathroom at home so will not take his Lasix at home and it has been misplaced. Patient has not changed the bandage on his right lower leg since discharge. EMS was initially evaluated the patient earlier after a friend checked on him and had concerns but refused ambulance transport or friends here via private vehicle today. Patient states he is not seen a doctor since he was discharged from the hospital. There is a question whether he has been homeless or in an apartment. REVIEW OF SYSTEMS: A total of 10 review of systems was obtained and negative except as stated above in the HPI. PAST MEDICAL HISTORY: As noted above MEDICATIONS: Not taking any current home medications per his report. SOCIAL HISTORY: former smoker. . Speaks Luxembourger. PHYSICAL EXAM: GENERAL: alert and oriented in no acute distress on stretcher, poorly kept Head: normocephalic and atraumatic EYES: No injection, discharge or icterus. NECK: Trachea midline. Supple. ENT: Mucous membranes pink and moist. LUNGS: Airway patent. No retractions. Breath sounds with diminished bases HEART: Regular rate and irregular rhythm. No chest wall tenderness ABDOMEN: Soft and non-tender, without guarding or rebound. Does have subcutaneous swelling of the lower abdomen without significant tenderness : Patient with significant scrotal and penile edema. SKIN: Acyanotic, warm, dry. Right lower leg described as below. Some edematous changes of the lower abdomen scrotal/ region. EXTREMITIES: 2+ swelling of the left lower extremity with 3+ lying of the right lower extremity with fairly well-healed but chronic stasis changes of the right calf area. A dirty bandage was removed from this for evaluation. NEUROLOGICAL: No focal deficits. No aphasia. No facial droop or slurred speech. EK bpm sinus rhythm with sinus arrhythmia. No PVC. No acute ST segment elevation or depression. QTC 477. CONTINUOUS CARDIAC MONITORING: was ordered and showed a heart rate of 80 bpm in sinus rhythm with occasional arrhythmia Patient's hypertension was referred to the hospitalist HOSPITAL COURSE: 1540 Patient was first seen and H&P performed. 1700 Patient reassessed and updated. Some difficulty with IV access. Reviewed x-ray findings and discussed plan for additional Lasix and plan for admission 1804 discussed with [facility] for admission. Patient's laboratory studies and imaging reviewed. Differential includes Reactive airway disease, pneumonia, pneumothorax, COPD, CHF, infections, cardiac ischemia, pulmonary embolism, musculoskeletal, gastrointestinal, as well as other pathologies. IMPRESSION/MEDICAL DECISION MAKING: Patient presents homeless without complaints no medications with what appears to be CHF exacerbation with swelling from his lower extremities now through the abdomen with significant scrotal edema. Lower suspicion this is infectious. X- ray and basic labs were obtained. EKG without significant findings. Lower suspicion is PE or DVT. Given additional IV dose of Lasix here. Patient has poor home care and has not changed the bandage on his right leg for more than 2 months. This was removed. Likely underneath this not significant ulcerations or concern for neck fashion. Chronic wound but again low suspicion for serious bacterial over infection at this time. Chest x-ray with evidence of some pulmonary congestion. Some delay in labs due to difficult IV access. No leukocytosis. Mild anemia. Patient requires admission for diuresis given his significant edema and set up of a better home care plan as able. I doubt coronavirus in this patient. DIAGNOSIS: CHF exacerbation, fluid overload, scrotal edema DISPOSITION: Hospitalist will evaluate Patient was agreeable with this plan. Past Med/Surg History Social History Preferred Language: Luxembourger Communication Ability: Effective Gerentological Physiotherapist Required: No Beliefs That Will Affect Care: None marital status: Current Living Situation: Alone Current Living Situation Comment: apartment Feels Safe at Home: Yes Smoking Status: Former smoker Number of Years Since Quit: 10 ; Second Hand Exposure: No ; Hx Alcohol Use: Yes Alcohol type: hard liquor Hx Substance Use: No Allergies Allergies Allergy/AdvReac Type Severity Reaction Status Date / Time horse dander Allergy Unknown HORSE HAIR Verified 04/24/20 16:49 tetanus toxoid, adsorbed Allergy Unknown Unknown Verified 04/24/20 16:49 Home Meds Previous Rx's Medication Instructions Recorded nitroglycerin [Nitrostat] 0.4 mg SUBLINGUAL PRN PRN 30 Days 12/13/19 #30 tab aspirin [Ecotrin Low Strength] 81 mg PO QAM 30 Days #30 tab 02/04/20 atorvastatin [Lipitor] 80 mg PO HS 30 Days #30 tab 02/04/20 clopidogrel [Plavix] 75 mg PO DAILY #30 tab 02/04/20 furosemide [Lasix] 40 mg PO DAILY 30 Days #30 tab 02/04/20 lisinopril [Zestril] 5 mg PO QAM 30 Days #30 tab 02/04/20 metoprolol succinate 12.5 mg PO DAILY 30 Days #15 tab 02/04/20 Results & Data (ED) Vital Signs Vital Signs - 24 hr 04/24/20 15:00 04/24/20 15:04 04/24/20 15:12 Temperature 36.6 C Temperature Source Oral Pulse Rate 82 82 82 Pulse Rate from SpO2 Sensor 82 80 Respiratory Rate 25 H 20 18 Blood Pressure 169/113 H 169/113 H Blood Pressure Mean 131 131 Pulse Oximetry 97 99 96 Oxygen Delivery Method Room Air Sepsis Recent Fever Within 48 Hours No Sepsis New/Unexplained Change in Mental Status No Sepsis Action Taken by Nursing No Action Required 04/24/20 15:18 04/24/20 15:30 04/24/20 15:31 Temperature Temperature Source Pulse Rate 84 94 H Pulse Rate from SpO2 Sensor 86 Respiratory Rate 17 25 H Blood Pressure 137/103 H Blood Pressure Mean 117 Pulse Oximetry 100 100 Oxygen Delivery Method Room Air Sepsis Recent Fever Within 48 Hours Sepsis New/Unexplained Change in Mental Status Sepsis Action Taken by Nursing 04/24/20 16:00 04/24/20 16:06 04/24/20 16:30 Temperature Temperature Source Pulse Rate 84 77 87 Pulse Rate from SpO2 Sensor 90 Respiratory Rate 19 22 20 Blood Pressure Blood Pressure Mean Pulse Oximetry 100 97 Oxygen Delivery Method Room Air Sepsis Recent Fever Within 48 Hours Sepsis New/Unexplained Change in Mental Status Sepsis Action Taken by Nursing 04/24/20 17:00 04/24/20 17:26 04/24/20 17:30 Temperature Temperature Source Pulse Rate 86 85 Pulse Rate from SpO2 Sensor 86 92 H Respiratory Rate 17 24 23 Blood Pressure 155/112 H 160/117 H Blood Pressure Mean 125 125 Pulse Oximetry 98 100 Oxygen Delivery Method Sepsis Recent Fever Within 48 Hours Sepsis New/Unexplained Change in Mental Status Sepsis Action Taken by Nursing 04/24/20 17:31 Temperature Temperature Source Pulse Rate 86 Pulse Rate from SpO2 Sensor 87 Respiratory Rate 23 Blood Pressure Blood Pressure Mean Pulse Oximetry 100 Oxygen Delivery Method Sepsis Recent Fever Within 48 Hours Sepsis New/Unexplained Change in Mental Status Sepsis Action Taken by Nursing Laboratory Data Result diagrams: 04/24/20 17:07 04/24/20 17:07 Lab Results 04/24/20 04/24/20 04/24/20 Range/Units 17:07 17:07 17:07 WBC 6.53 (4.8-10.8) K/uL RBC 4.71 (4.7-6.1) M/uL Hgb 11.8 L (14.0-18.0) g/dL Hct 38.1 L (42-52) % MCV 80.9 (80-100) fL MCH 25.1 (25-34) pg MCHC 31.0 L (32-36) g/dL RDW Std Deviation 56.2 H (36.4-46.3) fL RDW Coeff of Dante 18.9 H (11.5-14.5) % Plt Count 217 (130-400) K/uL MPV 9.6 (7.4-10.4) fL Immature Gran % (Auto) 0.2 % Neut % (Auto) 86.5 % Lymph % (Auto) 6.6 % Morrow % (Auto) 6.3 % Eos % (Auto) 0.2 % Baso % (Auto) 0.2 % Immature Gran # (Auto) 0.01 (0.00-0.02) K/uL Neut # (Auto) 5.66 (1.4-6.5) K/uL Lymph # (Auto) 0.43 L (1.2-3.4) K/uL Morrow # (Auto) 0.41 (0.11-0.59) K/uL Eos # (Auto) 0.01 (0-0.5) K/uL Baso # (Auto) 0.01 (0-0.2) K/uL PT 12.8 H (9.0-12.0) Seconds INR 1.2 H (0.9-1.1) APTT 26.7 (21.0-31.0) Seconds PTT Ratio 1.0 Sodium 143 (136-145) mmol/L Potassium 3.2 L (3.5-5.1) mmol/L Chloride 112 H (98-107) mmol/L Carbon Dioxide 24 (21-32) mmol/L Anion Gap 7.0 (3-11) BUN 20 H (7-18) mg/dl Creatinine 1.12 (0.6-1.4) mg/dl Est Cr Clr Drug Dosing 61.9 ml/min Est GFR ( Amer) 78.4 Est GFR (Non-Af Amer) 67.6 BUN/Creatinine Ratio 17.7 (10-20) Glucose 90 (70-99) mg/dl Calcium 8.8 (8.5-10.1) mg/dl Magnesium 2.1 (1.8-2.4) mg/dl Total Bilirubin 2.1 H (0.2-1) mg/dl AST 17 (15-37) U/L ALT 16 (12-78) U/L Alkaline Phosphatase 128 H (45-117) U/L Troponin I 0.059 H* (0-0.045) ng/ml NT-Pro-B Natriuret Pep 47795 H (0-900) pg/ml Total Protein 7.5 (6.4-8.2) gm/dl Albumin 3.0 L (3.4-5.0) gm/dl Globulin 4.5 H (2.5-4.0) gm/dl Albumin/Globulin Ratio 0.7 L (0.9-2) Administered Medications Discontinued Medications Furosemide (Lasix) 80 mg IV NOW STA Stop: 04/24/20 15:49 Last Admin: 04/24/20 17:29 Dose: 80 mg Documented by: [id number] Discharge Plan Visit Data Chief Complaint: Shortness of Breath/Dyspnea Stated Complaint: LEG SWELLING ED Provider: Dorian Matta Discharge Problem: CHF exacerbation, Scrotal edema, Fluid overload, Noncompliance with medications, Leg edema Patient Disposition: Being Evaluated by Hospitalist Forms Stand Alone Forms: My [facility] Prescriptions Prescriptions: No Action nitroglycerin [Nitrostat] 0.4 mg Tablet, Sublingual 0.4 mg sublingual PRN PRN (Reason: chest pain) 30 Days Qty: 30 RF: 0 furosemide [Lasix] 40 mg tablet 40 mg PO DAILY 30 Days Qty: 30 RF: 1 atorvastatin [Lipitor] 80 mg Tablet 80 mg PO HS 30 Days Qty: 30 RF: 0 clopidogrel [Plavix] 75 mg tablet 75 mg PO DAILY Qty: 30 RF: 0 aspirin [Ecotrin Low Strength] 81 mg Tablet,Delayed Release (Dr/Ec) 81 mg PO QAM 30 Days Qty: 30 RF: 0 lisinopril [Zestril] 5 mg Tablet 5 mg PO QAM 30 Days Qty: 30 RF: 1 metoprolol succinate 25 mg Tablet Extended Release 24 Hr 12.5 mg PO DAILY 30 Days Qty: 15 RF: 1 Referrals Referrals: PCP,NO [Primary Care Provider] - Discharge Problem: CHF exacerbation Qualifiers: Heart failure type: combined systolic and diastolic Qualified Code(s): I50.43 - Acute on chronic combined systolic (congestive) and diastolic (congestive) heart failure Fluid overload Qualifiers: Hypervolemia type: other Qualified Code(s): E87.79 - Other fluid overload
--- NOTE | 2020-04-24 16:16 | XRay Report ---
SINGLE VIEW CHEST CLINICAL HISTORY: Dyspnea. FINDINGS: An AP, portable, upright chest radiograph is compared to study dated 01/25/2020 and correlate d with chest CT dated 10/14/2019. The examination is degraded by portable technique and apical lordot ic positioning. The heart is enlarged noting atherosclerotic calcification of the thoracic aorta. The re is prominence of the pulmonary vasculature. Emphysema and chronic interstitial thickening are shannan lar to previous. There are right larger than left pleural effusions with bibasilar consolidation. No pneumothorax is seen. The skeletal structures are osteopenic. The bony thorax is grossly intact. IMPRESSION: 1. Cardiomegaly with prominence of the central pulmonary vasculature. Correlate clinically for eviden ce of mild congestive failure. 2. Right larger than left pleural effusions with bibasilar consolidation. This likely represents atel ectasis and clinical correlation will be required. ACT 112: Negative or not required by law. Electronically signed by: Mulugeta Mccabe M.D. 04/24/2020 4:15 PM
[2020-04-24 17:19] LABS: Basophils # (auto) 0.01 K/uL (0-0.2); Basophils % (auto) 0.2 %; Eosinophils # (auto) 0.01 K/uL (0-0.5); Eosinophils % (auto) 0.2 %; Hematocrit (blood only) 38.1 % (42-52); Hemoglobin 11.8 g/dL (14.0-18.0); Immature Granulocytes # (auto) 0.01 K/uL (0.00-0.02); Immature Granulocytes % (auto) 0.2 %; Lymphocytes # (auto) 0.43 K/uL (1.2-3.4); Lymphocytes % (auto) 6.6 %; Mean Corpuscular Hemoglobin 25.1 pg (25-34); Mean Corpuscular Volume 80.9 fL (80-100); Mean Platelet Volume 9.6 fL (7.4-10.4); Monocytes # (auto) 0.41 K/uL (0.11-0.59); Monocytes % (auto) 6.3 %; Neutrophils # (auto) 5.66 K/uL (1.4-6.5); Neutrophils % (auto) 86.5 %; Platelet Count 217 K/uL (130-400); RDW Coefficient of Variation 18.9 % (11.5-14.5); RDW Standard Deviation 56.2 fL (36.4-46.3); Red Blood Count 4.71 M/uL (4.7-6.1); White Blood Count 6.53 K/uL (4.8-10.8)
[2020-04-24 17:31] LABS: INR 1.2 (0.9-1.1); Partial Thromboplastin Time 26.7 Seconds (21.0-31.0); Prothrombin Time 12.8 Seconds (9.0-12.0)
[2020-04-24 17:46] LABS: BUN Creatinine Ratio 17.7 (10-20); Calcium 8.8 mg/dl (8.5-10.1); Creatinine Clr Calc Pharmacy 61.9 ml/min; Est GFR (African American) 78.4; Est GFR (Non-African American) 67.6; Magnesium 2.1 mg/dl (1.8-2.4); Potassium 3.2 mmol/L (3.5-5.1)
[2020-04-24 17:54] LABS: Albumin Globulin Ratio 0.7 (0.9-2); Bilirubin,Total 2.1 mg/dl (0.2-1); Globulin 4.5 gm/dl (2.5-4.0); Total Protein 7.5 gm/dl (6.4-8.2); Troponin I 0.059 ng/ml (0-0.045)
[2020-04-24 18:12] LABS: Appearance Urine Clear (Clear); Bacteria Urine Automated Negative (Negative); Bilirubin Urine Negative (Negative); Blood Urine 1+ (Negative); Color Urine Dark Yellow; Epithelial Cell Urine Auto 20-30 /lpf (0-5); Glucose Urine UA Negative (Negative); Ketones Urine Negative (Negative); Leukocyte Esterase Urine Trace (Negative); Nitrite Urine Negative (Negative); Protein Urine 3+ (Negative); RBC Urine Automated 0-4 /hpf (0-4); Urobilinogen Urine Negative (Negative); pH Urine 5.5 (4.5-7.5)
[2020-04-24] MEDS ORDERED: ACETAMINOPHEN 325 MG TAB PO PRN (21:22)
--- NOTE | 2020-04-24 21:23 | History & Physical Report ---
Date of Service April 24, 2020 Assessment & Plan (1) CHF exacerbation: 69-year-old male with history of ischemic cardiomyopathy, combined systolic and diastolic congestive heart failure, ejection fraction 15 to 20%, Valvular heart disease, chronic atrial fibrillation not on anticoagulation, pa ranoid schizophrenia, presenting with progressive lower extremity edema and shortness of breath. Acute on chronic congestive heart failure exacerbation, systolic and diastolic type, ischemic cardiomyopathy Secondary to poor adherence to medication regimen Patient was given Lasix 80 mg IV at the ER, will order Lasix 40 mg IV every 12 hours in the morning Fluid restriction 1500 mL's per day, 2 g sodium diet Resume patient's medication regimen from January 2020, including metoprolol, lisinopril, aspirin, Plavix, atorvastatin Echo was performed in November, we will update echo for this admission Vocational Rehabilitation Technician consulted Mild troponin elevation First troponin 0 0.059 Denies chest pain, EKG showed nonspecific T wave changes in the lateral leads Check 2 more sets of troponin, check an echocardiogram Resume aspirin, Plavix, metoprolol, atorvastatin Hypokalemia Replace with oral potassium Abnormal chest x-ray Showing bilateral pleural effusion, with bibasilar consolidation Patient is afebrile, leukocytosis, denies cough or sputum production COVID test ordered, continue isolation for now Abnormal urinalysis Positive proteinuria Outpatient work-up History of chronic atrial fibrillation Sinus rhythm on EKG, continue metoprolol, and aspirin, Plavix Chronic right leg lymphedema No signs of cellulitis at this time, continue to monitor Wound care consult Paranoid schizophrenia Mood stable at this time Monitor DVT prophylaxis Heparin subcutaneous 3 times daily CODE STATUS Full code Disposition Patient apparently lives in his apartment Will need PT OT evaluation History of Present Illness 63-year-old male with history of ischemic cardiomyopathy EF 15 to 20%, combined systolic and diastolic heart failure, valvular heart disease, Chronic atrial fibrillation not on anticoagulation, chronic schizophrenia, chronic right leg lymphedema with ulcer, presenting with shortness of breath and leg swelling times few days. Patient was recently discharged from [facility] last January 2020 secondary to volume overload. He was prescribed Lasix p.o. daily, but patient has not been taking his medications since discharge because " medications did not suit in his apartment". As per patient, he was doing well until a few days ago when he started to have increasing leg and scrotal swelling, which progressed to shortness of breath. He then presented to the ER for evaluation. At the ER, the patient was noted to have a BNP of 15,000, chest x-ray showed congestive heart failure pattern. He was given Lasix 80 mg IV 1 dose. On exam, the patient was seen sitting up in bed, comfortable, not in distress. Reports breathing slightly improved compared to admission. He reports being anxious about his medical condition, patient reassured. He denies having any active chest pain, palpitations, dizziness, headache. No fevers or chills, shortness of breath, cough, sputum production. Denies leg pain. Primary Care Provider: NO PCP Allergies Allergy/AdvReac Type Severity Reaction Status Date / Time horse dander Allergy Unknown HORSE HAIR Verified 04/24/20 16:49 tetanus toxoid, adsorbed Allergy Unknown Unknown Verified 04/24/20 16:49 Home Medications Home Medications Medication Instructions Recorded Confirmed Type nitroglycerin [Nitrostat] 0.4 mg SUBLINGUAL PRN PRN 30 Days 12/13/19 04/24/20 Rx #30 tab aspirin [Ecotrin Low Strength] 81 mg PO QAM 30 Days #30 tab 02/04/20 04/24/20 Rx atorvastatin [Lipitor] 80 mg PO HS 30 Days #30 tab 02/04/20 04/24/20 Rx clopidogrel [Plavix] 75 mg PO DAILY #30 tab 02/04/20 04/24/20 Rx furosemide [Lasix] 40 mg PO DAILY 30 Days #30 tab 02/04/20 04/24/20 Rx lisinopril [Zestril] 5 mg PO QAM 30 Days #30 tab 02/04/20 04/24/20 Rx metoprolol succinate 12.5 mg PO DAILY 30 Days #15 tab 02/04/20 04/24/20 Rx Past Med/Surg History Social History Preferred Language: Bhutanese Communication Ability: Effective Morning Show Newscast Producer Required: No Beliefs That Will Affect Care: None marital status: Current Living Situation: Alone Current Living Situation Comment: apartment Feels Safe at Home: Yes Smoking Status: Former smoker Number of Years Since Quit: 10 ; Second Hand Exposure: No ; Hx Alcohol Use: Yes Alcohol type: hard liquor Hx Substance Use: No Review of Systems Review of Systems: All systems reviewed & are unremarkable except as noted in HPI & below Physical Exam Physical Exam: General- oriented x 3, not in distress, speaks in sentences with no effort or accessory muscle use Head- atraumatic Eyes- PERRL, EOMI, anicteric ENT- oropharynx clear Neck- supple, no JVD, no adenopathy, no thyromegaly; carotids +2/2, no bruits appreciated Lungs-positive mild rales at the bases, decreased breath sounds at the bases, no wheezing Heart- normal rate, regular rhythm; no murmur, no gallop, no rub appreciated Abdomen- normal bowel sounds, nondistended, soft, nontender, no masses or hepatosplenomegaly Positive edema on the abdominal wall in the lower quadrants Extremities- Right lower extremity: Positive significant edema, with desquamation, mild erythema on the right lower leg, no warmth, no tenderness Doppler extremity: Positive significant edema no calf tenderness; peripheral pulses intact Neuro- alert, oriented x 3; CN 2-12 grossly intact; motor 5/5 bilaterally;sensation 100% on all extremities; no other gross focal neurologic deficits Skin- warm & dry Results & Data Results & Data ([facility]) Vital Signs (Past 12 Hours) Vital Signs Temp Pulse Resp BP Pulse Ox 04/24/20 19:31 86 15 04/24/20 19:30 97 H 15 134/113 H 04/24/20 19:01 91 H 18 04/24/20 19:00 98 H 20 155/118 H 04/24/20 18:31 93 H 24 04/24/20 18:30 84 15 142/94 H 04/24/20 18:01 93 H 24 04/24/20 18:00 98 H 20 159/122 H 04/24/20 17:31 86 23 100 04/24/20 17:30 85 23 160/117 H 100 04/24/20 17:26 24 155/112 H 04/24/20 17:00 86 17 98 04/24/20 16:30 87 20 97 04/24/20 16:06 77 22 100 04/24/20 16:00 84 19 04/24/20 15:31 94 H 25 H 04/24/20 15:30 84 17 137/103 H 100 04/24/20 15:18 100 04/24/20 15:12 82 18 96 04/24/20 15:04 36.6 C 82 20 169/113 H 99 04/24/20 15:00 82 25 H 169/113 H 97 Laboratory Results Laboratory Results - last 24 hr 04/24/20 04/24/20 04/24/20 17:07 17:07 17:07 WBC 6.53 RBC 4.71 Hgb 11.8 L Hct 38.1 L MCV 80.9 MCH 25.1 MCHC 31.0 L RDW Std Deviation 56.2 H RDW Coeff of Dante 18.9 H Plt Count 217 MPV 9.6 Immature Gran % (Auto) 0.2 Neut % (Auto) 86.5 Lymph % (Auto) 6.6 Stafford % (Auto) 6.3 Eos % (Auto) 0.2 Baso % (Auto) 0.2 Immature Gran # (Auto) 0.01 Neut # (Auto) 5.66 Lymph # (Auto) 0.43 L Stafford # (Auto) 0.41 Eos # (Auto) 0.01 Baso # (Auto) 0.01 PT 12.8 H INR 1.2 H APTT 26.7 PTT Ratio 1.0 Sodium 143 Potassium 3.2 L Chloride 112 H Carbon Dioxide 24 Anion Gap 7.0 BUN 20 H Creatinine 1.12 Est Cr Clr Drug Dosing 61.9 Est GFR ( Amer) 78.4 Est GFR (Non-Af Amer) 67.6 BUN/Creatinine Ratio 17.7 Glucose 90 Calcium 8.8 Magnesium 2.1 Total Bilirubin 2.1 H AST 17 ALT 16 Alkaline Phosphatase 128 H Troponin I 0.059 H* NT-Pro-B Natriuret Pep 79703 H Total Protein 7.5 Albumin 3.0 L Globulin 4.5 H Albumin/Globulin Ratio 0.7 L Urine Color Urine Appearance Urine pH Ur Specific Sullivan Urine Protein Urine Glucose (UA) Urine Ketones Urine Blood Urine Nitrite Urine Bilirubin Urine Urobilinogen Ur Leukocyte Esterase Urine WBC (Auto) Urine RBC (Auto) U Hyaline Cast (Auto) U Epithel Cells (Auto) Urine Bacteria (Auto) COVID-19 PCR SARS-CoV-2 RNA (RT-PCR) 04/24/20 04/24/20 04/24/20 17:57 18:30 18:31 WBC RBC Hgb Hct MCV MCH MCHC RDW Std Deviation RDW Coeff of Dante Plt Count MPV Immature Gran % (Auto) Neut % (Auto) Lymph % (Auto) Stafford % (Auto) Eos % (Auto) Baso % (Auto) Immature Gran # (Auto) Neut # (Auto) Lymph # (Auto) Stafford # (Auto) Eos # (Auto) Baso # (Auto) PT INR APTT PTT Ratio Sodium Potassium Chloride Carbon Dioxide Anion Gap BUN Creatinine Est Cr Clr Drug Dosing Est GFR ( Amer) Est GFR (Non-Af Amer) BUN/Creatinine Ratio Glucose Calcium Magnesium Total Bilirubin AST ALT Alkaline Phosphatase Troponin I NT-Pro-B Natriuret Pep Total Protein Albumin Globulin Albumin/Globulin Ratio Urine Color Dark Yellow Urine Appearance Clear Urine pH 5.5 Ur Specific Sullivan 1.020 Urine Protein 3+ H Urine Glucose (UA) Negative Urine Ketones Negative Urine Blood 1+ H Urine Nitrite Negative Urine Bilirubin Negative Urine Urobilinogen Negative Ur Leukocyte Esterase Trace H Urine WBC (Auto) 5-10 H Urine RBC (Auto) 0-4 U Hyaline Cast (Auto) 1-5 U Epithel Cells (Auto) 20-30 H Urine Bacteria (Auto) Negative COVID-19 PCR Pending SARS-CoV-2 RNA (RT-PCR) Cancelled Code Status & VTE Plan Code Status Full code as per patient VTE Prophylaxis Plan VTE Prophylaxis will be ordered: Yes (1) CHF exacerbation Heart failure type: combined systolic and diastolic Qualified Code(s): I50.43 - Acute on chronic combined systolic (congestive) and diastolic (congestive) heart failure
[2020-04-24] MEDS: TRAMADOL HCL 50 MG TABLET PO PRN (22:40)
[2020-04-25] MEDS ORDERED: POTASSIUM CHLORIDE 20 MEQ TABCR PO STA
--- NOTE | 2020-04-25 07:07 | Electrocardiogram Report ---
Test Reason : Blood Pressure : / mmHG Vent. Rate : 084 BPM Atrial Rate : 084 BPM P-R Int : 170 ms QRS Dur : 106 ms QT Int : 404 ms P-R-T Axes : 045 061 006 degrees QTc Int : 477 ms Sinus rhythm with marked sinus arrhythmia Low voltage QRS Cannot rule out Anteroseptal infarct , age undetermined Abnormal ECG When compared with ECG of 25-JAN-2020 08:32, Sinus rhythm has replaced Atrial fibrillation Vent. rate has decreased BY 47 BPM Nonspecific T wave abnormality now evident in Lateral leads Confirmed by Viktor Ingram ([id number]) on 04/25/2020 7:07:10 AM Referred By: REFERRED SELF Confirmed By:Viktor Ingram
--- NOTE | 2020-04-25 07:40 | XRay Report ---
XR chest 1V portable CLINICAL HISTORY: ff up CHF dyspnea COMPARISON STUDY: 04/24/2020 FINDINGS: Moderate stable cardiomegaly. Right pleural effusion unchanged. Pulmonary vasculature promi nence unaltered. IMPRESSION: Stable components of congestive failure. Unchanged right pleural effusion. ACT 112: Negative or not required by law. The above report was generated using voice recognition software. It may contain grammatical, syntax or spelling errors. Electronically signed by: Daniel Tyler M.D. 04/25/2020 7:39 AM
[2020-04-25] MEDS ORDERED: PERFLUTREN LIPID MICROSPHERE (DEFINITY) IV ONE (07:43)
[2020-04-25] MEDS ORDERED: ENOXAPARIN INJ 40 MG/0.4 ML SYR SQ SCH (09:00)
[2020-04-25] MEDS ORDERED: FUROSEMIDE 40 MG/4 ML VIAL IV SCH (09:00)
[2020-04-25] MEDS: FUROSEMIDE 40 MG in SYRINGE 0 ML IV SCH ×2 (09:09→20:03)
[2020-04-25] MEDS: lisinopriL 5 MG TAB PO SCH (09:09)
[2020-04-25] MEDS: METOPROLOL SUCC 25MG EXT REL TAB PO SCH (09:09)
[2020-04-25] MEDS: CLOPIDOGREL BISULFATE 75 MG TAB PO SCH (09:10)
[2020-04-25] MEDS: ENOXAPARIN INJ 40 MG/0.4 ML SYR SQ SCH (10:02)
[2020-04-25] MEDS: POTASSIUM CHLORIDE 20 MEQ TABCR PO SCH (10:02)
[2020-04-25] MEDS: ASPIRIN 81 MG ECTAB PO SCH (10:02)
--- NOTE | 2020-04-25 12:14 | XCELERA ---
[id number]
--- NOTE | 2020-04-25 12:45 | Cardiology Consultation ---
Date of Consultation April 25, 2020 Assessment & Plan (1) Acute on chronic systolic (congestive) heart failure: (2) Noncompliance with medications: (3) Ischemic cardiomyopathy: (4) Tricuspid regurgitation: (5) Ischemic cardiomyopathy: (6) CAD (coronary artery disease): (7) Paranoid schizophrenia: (8) Paroxysmal atrial fibrillation: (9) Mitral regurgitation: (10) Hypertension: ASSESSMENT/PLAN: 1. Acute on chronic systolic CHF: He appears hypervolemic, likely due to medication noncompliance, dietary noncompliance (does not maintain low-sodium diet), in the setting of severely reduced LV systolic function. Continue diuresis. Monitor electrolytes, I&Os, and daily weights closely. Low-sodium diet. Close outpatient follow-up was encouraged however he states that he will not take Lasix as he needs to stay away from his bathroom as noted above in HPI. He will likely continue to require readmission due to hypervolemia given his inability to remain compliant with medications. 2. Ischemic cardiomyopathy: Reduced LV and RV systolic function. Noncompliance continues to be a major issue as noted. Can continue his previously tolerated medications such as lisinopril and metoprolol succinate, but he already has stated that he will not take medications once he returns to his apartment as they change into something dangerous. ICD has not been pursued due to ongoing issues with his mental health and noncompliance. He primarily has been followed by Dr. Carter of . 3. CAD s/p Cx PCI: Has multivessel CAD. No angina. Can continue dual anti- platelet therapy. Continue beta-polo while hospitalized. Continue high- intensity statin therapy, but once again he states that he will not take any medications once discharged. He has minimally elevated troponins likely due to decompensated CHF, as he is not presenting with acute coronary syndrome. 4. Medication noncompliance: This appears to be due to his schizophrenia based on his description of medications changing into dangerous things and his fear of using his bathroom. 5. Hypertension: Blood pressure has been elevated but should improved by restarting his medications and diuresis. 6. Paroxysmal atrial fibrillation: Currently in sinus rhythm. Has had paroxysmal AFib in the past. He is noncompliant with medications and therefore anticoagulation does not appear to be a safe option for him. 7. Mitral regurgitation: Non severe. No further evaluation necessary at this time. 8. Tricuspid regurgitation: Non severe. He did have a mass previously described on prior echoes however this was not noted on today's echo. There was concern in the past for endocarditis however clinically he did not appear to be infected and has not had any further sequela as it was thought that his abnormal blood culture was due to contamination. 9. Paranoid schizophrenia: Has been seen by Psychiatry in the past. His mental illness appears to be negatively affecting his overall health care based on his reasons described to me today on why he does not take his medication. Will defer treatment to primary service. 10. Disposition: Cardiology will continue to follow. Please call with any questions or concerns. Thank you for allowing me to participate in the care of your patient. Please call for any other questions or concerns. Sincerely, Enrique Lechuga M.D. History of Present Illness Reason for Consultation: CHF exacerbation Requesting Physician: Dr. Sexton Attending Physician: Funmi Valentine MD History of Present Illness Mr. Masterson is a pleasant 69-year-old gentleman with a history significant for CAD with history of STEMI and PCI of OM in May of 2019, occluded RCA, ischemic cardiomyopathy, mitral regurgitation, paroxysmal atrial fibrillation, and systolic CHF. He also has paranoid schizophrenia and medication noncompliance with a history of being homeless. He was hospitalized on 06/15/2019 for acute NM and underwent PCI of OM by Dr. Jansen and discharged on 07/16/2019. During his hospitalization, he had paroxysmal atrial fibrillation and was briefly treated with amiodarone. During that hospitalization, he did refuse medications at times. He was seen by palliative care and also psychiatry. He was then rehospitalized in August of 2019 with acute CHF, being discharged approximately 2 weeks later. He was rehospitalized on 10/14/2019, being discharged on 10/23/2019 with reported CHF. He was rehospitalized in October of 2019, November of 2019, and January of 2020. He was once again admitted yesterday after not taking any of his medications since being discharge in January of 2020. He states that once his medications and to his apartment, within half of day, baby come "very bad" and he will take them anymore. Because of this, he has not taken any of his medications. He has been seen by psychiatry on previous hospitalizations and it was deemed that psychotic symptoms were not interfering with his medical decision-making. Today's description that he provided, is similar to what he described in his October hospitalization. He states that he tries to avoid the restroom in his apartment because bad things happen in their. He states that more than 50 people have in his apartment. One specifically, Flavio, was a friend of his. He states that if he takes Lasix he has to go to the restroom 10 or 12 times a day and he cannot go more than 5 times a day into his restroom to avoid these bad things. He avoids his bedroom as well as multiple people have there according to his report. His food is purchased by another person who delivers it to him. He describes eating noodles often and canned or frozen foods. He states that he has not followed up with any providers as an outpatient. He denies any recent fevers, chest pain, syncope. He admits that he has been very short of breath and has had significant swelling in his lower extremities and scrotum. His breathing is much improved already after diuresis here. He denies palpitations or bleeding such as melena, hematochezia, or hematuria. He has had the following studies/procedures: 1. Cardiac catheterization 06/15/2019: Proximal LAD 20-30%. Mid LAD diffuse disease up to 60%. Very small D1 subtotally occluded. Large circumflex. Mid circumflex 100% after aneurysmal segment. Dominant RCA, small to moderate caliber. chronic mid RCA 100%. Partial filling of distal RCA via [id number] collaterals. Underwent PCI of mid circumflex with 2.75 by 18 mm integrity bare metal stent, extending into a large OM to and post dilated with 3.25 mm NC. 2. Echo 04/25/2020: Mildly dilated LV with severely reduced systolic function. EF 15-20%. Akinesis of the inferolateral, basal anterolateral, base to mid inferior, and basal inferoseptal wall segments. Otherwise, severe global hypokinesis. No left ventricular hypertrophy. Tissue Doppler suggests elevated left atrial pressure. Normal RV size with moderately reduced systolic function. Moderate biatrial dilation. Moderate MR. [id number] TR. RVSP 43mmHg. Small pericardial effusion without echocardiographic evidence of tamponade physiology. Review of systems: As above. Review of systems otherwise negative/unremarkable. Family history: Father at the age of 40 from [place]. Social history: Quit smoking several years ago. Has done drugs in the past but denies drugs in the past several years. No significant alcohol. He lives alone. He is . No children. He has a brother who lives in [place] but has not seen or spoken with him since the . He was alone in his hospital room. Allergies Allergy/AdvReac Type Severity Reaction Status Date / Time horse dander Allergy Unknown HORSE HAIR Verified 04/24/20 16:49 tetanus toxoid, adsorbed Allergy Unknown Unknown Verified 04/24/20 16:49 Home Medications Home Medications Medication Instructions Recorded Confirmed Type nitroglycerin [Nitrostat] 0.4 mg SUBLINGUAL PRN PRN 30 Days 12/13/19 04/24/20 Rx #30 tab aspirin [Ecotrin Low Strength] 81 mg PO QAM 30 Days #30 tab 02/04/20 04/24/20 Rx atorvastatin [Lipitor] 80 mg PO HS 30 Days #30 tab 02/04/20 04/24/20 Rx clopidogrel [Plavix] 75 mg PO DAILY #30 tab 02/04/20 04/24/20 Rx furosemide [Lasix] 40 mg PO DAILY 30 Days #30 tab 02/04/20 04/24/20 Rx lisinopril [Zestril] 5 mg PO QAM 30 Days #30 tab 02/04/20 04/24/20 Rx metoprolol succinate 12.5 mg PO DAILY 30 Days #15 tab 02/04/20 04/24/20 Rx Patient History Social History Preferred Language: Lithuanian Communication Ability: Effective Nurse Head Required: No Beliefs That Will Affect Care: None marital status: Current Living Situation: Alone Current Living Situation Comment: apartment Other Information That Helps Us Care for You: No Feels Safe at Home: Yes Smoking Status: Former smoker Number of Years Since Quit: 10 ; Second Hand Exposure: No ; Hx Alcohol Use: Yes Alcohol type: hard liquor Hx Substance Use: No Physical Exam Physical Exam: Gen.: No acute distress. Alert. HEENT: Anicteric sclera. Neck: Mild JVD. No bruits. Normal carotid upstrokes bilaterally. Cardiac: PMI was nonpalpable. No ventricular heave. Regular. Normal S1-S2. No audible murmurs, rubs, or gallops. Pulmonary: Bibasilar rales. Abdomen: Soft, nontender, nondistended, with normoactive bowel sounds. No bruits noted. Extremities: 2+ radial pulses bilaterally. 2+ posterior tibialis pulses bilaterally. 1+ bilateral lower extremity edema to above the hips. Right lower extremity larger in circumference compared to the left. No cyanosis. : Scrotal edema noted. Results & Data ([facility]) Vital Signs (Past 12 Hours) Vital Signs Temp Pulse Pulse Resp BP Pulse Ox 04/25/20 11:47 91 H 04/25/20 07:57 36.6 C 59 L 20 130/85 99 04/25/20 03:12 36.4 C L 84 20 144/95 H 99 Intake & Output 04/23/20 04/24/20 04/25/20 04/26/20 06:59 06:59 06:59 06:59 Intake Total 60 / 60 Output Total 3800 / 3800 Balance -3740 / -3740 Weight 76.9 kg Laboratory Results Laboratory Results - last 24 hr 04/24/20 04/24/20 04/24/20 17:07 17:07 17:07 WBC 6.53 RBC 4.71 Hgb 11.8 L Hct 38.1 L MCV 80.9 MCH 25.1 MCHC 31.0 L RDW Std Deviation 56.2 H RDW Coeff of Dante 18.9 H Plt Count 217 MPV 9.6 Immature Gran % (Auto) 0.2 Neut % (Auto) 86.5 Lymph % (Auto) 6.6 [place] % (Auto) 6.3 Eos % (Auto) 0.2 Baso % (Auto) 0.2 Immature Gran # (Auto) 0.01 Neut # (Auto) 5.66 Lymph # (Auto) 0.43 L [place] # (Auto) 0.41 Eos # (Auto) 0.01 Baso # (Auto) 0.01 PT 12.8 H INR 1.2 H APTT 26.7 PTT Ratio 1.0 Sodium 143 Potassium 3.2 L Chloride 112 H Carbon Dioxide 24 Anion Gap 7.0 BUN 20 H Creatinine 1.12 Est Cr Clr Drug Dosing 61.9 Est GFR ( Amer) 78.4 Est GFR (Non-Af Amer) 67.6 BUN/Creatinine Ratio 17.7 Glucose 90 Calcium 8.8 Magnesium 2.1 Total Bilirubin 2.1 H AST 17 ALT 16 Alkaline Phosphatase 128 H Troponin I 0.059 H* NT-Pro-B Natriuret Pep 11446 H Total Protein 7.5 Albumin 3.0 L Globulin 4.5 H Albumin/Globulin Ratio 0.7 L Urine Color Urine Appearance Urine pH Ur Specific [place] Urine Protein Urine Glucose (UA) Urine Ketones Urine Blood Urine Nitrite Urine Bilirubin Urine Urobilinogen Ur Leukocyte Esterase Urine WBC (Auto) Urine RBC (Auto) U Hyaline Cast (Auto) U Epithel Cells (Auto) Urine Bacteria (Auto) COVID-19 PCR SARS-CoV-2 RNA (RT-PCR) 04/24/20 04/24/20 04/24/20 17:57 18:30 18:31 WBC RBC Hgb Hct MCV MCH MCHC RDW Std Deviation RDW Coeff of Dante Plt Count MPV Immature Gran % (Auto) Neut % (Auto) Lymph % (Auto) [place] % (Auto) Eos % (Auto) Baso % (Auto) Immature Gran # (Auto) Neut # (Auto) Lymph # (Auto) [place] # (Auto) Eos # (Auto) Baso # (Auto) PT INR APTT PTT Ratio Sodium Potassium Chloride Carbon Dioxide Anion Gap BUN Creatinine Est Cr Clr Drug Dosing Est GFR ( Amer) Est GFR (Non-Af Amer) BUN/Creatinine Ratio Glucose Calcium Magnesium Total Bilirubin AST ALT Alkaline Phosphatase Troponin I NT-Pro-B Natriuret Pep Total Protein Albumin Globulin Albumin/Globulin Ratio Urine Color Dark Yellow Urine Appearance Clear Urine pH 5.5 Ur Specific [place] 1.020 Urine Protein 3+ H Urine Glucose (UA) Negative Urine Ketones Negative Urine Blood 1+ H Urine Nitrite Negative Urine Bilirubin Negative Urine Urobilinogen Negative Ur Leukocyte Esterase Trace H Urine WBC (Auto) 5-10 H Urine RBC (Auto) 0-4 U Hyaline Cast (Auto) 1-5 U Epithel Cells (Auto) 20-30 H Urine Bacteria (Auto) Negative COVID-19 PCR NEGATIVE SARS-CoV-2 RNA (RT-PCR) Cancelled 04/24/20 04/25/20 23:04 05:33 WBC RBC Hgb Hct MCV MCH MCHC RDW Std Deviation RDW Coeff of Dante Plt Count MPV Immature Gran % (Auto) Neut % (Auto) Lymph % (Auto) [place] % (Auto) Eos % (Auto) Baso % (Auto) Immature Gran # (Auto) Neut # (Auto) Lymph # (Auto) [place] # (Auto) Eos # (Auto) Baso # (Auto) PT INR APTT PTT Ratio Sodium Potassium Chloride Carbon Dioxide Anion Gap BUN Creatinine Est Cr Clr Drug Dosing Est GFR ( Amer) Est GFR (Non-Af Amer) BUN/Creatinine Ratio Glucose Calcium Magnesium Total Bilirubin AST ALT Alkaline Phosphatase Troponin I 0.049 H* 0.050 H* NT-Pro-B Natriuret Pep Total Protein Albumin Globulin Albumin/Globulin Ratio Urine Color Urine Appearance Urine pH Ur Specific [place] Urine Protein Urine Glucose (UA) Urine Ketones Urine Blood Urine Nitrite Urine Bilirubin Urine Urobilinogen Ur Leukocyte Esterase Urine WBC (Auto) Urine RBC (Auto) U Hyaline Cast (Auto) U Epithel Cells (Auto) Urine Bacteria (Auto) COVID-19 PCR SARS-CoV-2 RNA (RT-PCR) Diagnostic Findings Telemetry personally reviewed: Sinus rhythm. ECG personally reviewed. ECG 04/24/2020: Sinus rhythm 84 bpm. PAC. Anteroseptal infarct. Nonspecific T-wave abnormality. Echo 04/25/2020 personally reviewed. Findings as noted above in the HPI. Cardiac catheterization report reviewed as noted above. Chest x-ray 04/24/2020: Cardiomegaly with prominence of central pulmonary vasculature. Right larger than left pleural effusions with bibasilar consolidation, likely representing atelectasis per Radiology. Medications Administered Current Inpatient Medications Acetaminophen (Tylenol) 650 mg PO Q4H PRN PRN Reason: Pain or Fever Stop: 05/24/20 21:21 Aspirin (Ecotrin Ectab) 81 mg PO QAM [facility] Stop: 05/25/20 08:59 Last Admin: 04/25/20 10:02 Dose: Not Given Documented by: Atorvastatin Calcium (Lipitor) 80 mg PO HS [facility] Stop: 05/25/20 20:59 Clopidogrel Bisulfate (Plavix) 75 mg PO DAILY [facility] Stop: 05/25/20 08:59 Last Admin: 04/25/20 09:10 Dose: 75 mg Documented by: Enoxaparin Sodium (Lovenox) 40 mg SQ QAM [facility] Stop: 05/25/20 08:59 Last Admin: 04/25/20 10:02 Dose: Not Given Documented by: Furosemide 40 mg/ Syringe 4 mls @ 4 mls/min IV Q12H [facility] Stop: 05/25/20 08:59 Last Admin: 04/25/20 09:09 Dose: 4 mls/min Documented by: Lisinopril (Zestril) 5 mg PO QAM [facility] Stop: 05/25/20 08:59 Last Admin: 04/25/20 09:09 Dose: 5 mg Documented by: Metoprolol Succinate (Toprol Xl) 12.5 mg PO DAILY [facility] Stop: 05/25/20 08:59 Last Admin: 04/25/20 09:09 Dose: 12.5 mg Documented by: Potassium Chloride (Klor-Con M20) 20 meq PO DAILY [facility] Stop: 05/25/20 08:59 Last Admin: 04/25/20 10:02 Dose: Not Given Documented by: Tramadol HCl (Ultram) 50 mg PO Q6H PRN PRN Reason: Pain Stop: 05/24/20 21:21 Last Admin: 04/24/20 22:40 Dose: 50 mg Documented by: PG Care Time/CCT Total # of Minutes Spent Total Time Spent with Patient: Total time spent is greater than 50% in coordination of care (as documented) at patient's floor/unit and/or counseling patient: Coding Level of Care Code 57207 Initial Inpt Care Lvl 3 Diagnoses Acute on chronic systolic (congestive) heart failure I50.23 Noncompliance with medications Z91.14 Ischemic cardiomyopathy I25.5 Tricuspid regurgitation I07.1 Ischemic cardiomyopathy I25.5 CAD (coronary artery disease) I25.10 Paranoid schizophrenia F20.0 Paroxysmal atrial fibrillation I48.0 Mitral regurgitation I34.0 Hypertension I10
--- NOTE | 2020-04-25 15:09 | Hospitalist Progress Note ---
Date of Service April 25, 2020 Assessment & Plan (1) CHF exacerbation: Acute on chronic systolic congestive heart failure exacerbation 69-year-old male with history of ischemic cardiomyopathy, combined systolic and diastolic congestive heart failure, ejection fraction 15 to 20%, Valvular heart disease, chronic atrial fibrillation not on anticoagulation, paranoid schizophrenia, presenting with progressive lower extremity edema and shortness of breath. Secondary to poor adherence to medication regimen Does not take any medication once discharge from the hospital since January CXR on admission showed cardiomegaly with prominence of the central pulmonary vasculature. Right larger than left pleural effusions with bibasilar consolidation. Lasix 80 mg IV at the ER Continue Lasix 40mg IV BID Repeat CXR showed stable components of congestive failure. Unchanged right pleural effusion. Cardiology on board Continued fluid restriction 1500 mL's per day, 2 g sodium diet Echo done today showed mildly dilated left ventricle with severely reduced systolic function with ejection fraction 15 to 20%. Akinesis of the inferior lateral wall, basal anterolateral wall, basal to mid inferior, and basal inferior septal wall segment. Severe global hypokinesis Will monitor I/O Continue monitor BMP while on IV diuresis Clinically improves Right Pleural Effusion CXR on admission showed Right larger than left pleural effusions with bibasilar consolidation Continue IV diuresis If no improvement, will discuss with pt about thoracentesis, but due to his mental health not sure if he will want to proceed Mild troponin elevation Possible related to CHF exacerbation Troponin 0.059 on admission, then dropped to Troponin 0.050 EKG showed nonspecific T wave changes in the lateral leads Non compliant with medication Continue aspirin, Plavix, metoprolol, atorvastatin Ischemic Cardiomyopathy Discussed with patient that he needs to be complaint with his med ECHO with EF 15 to 20 % Continue Metoprolol and Lisinopril Defer to his cardiology to address for ICD placement Hypokalemia Refused to take Potassium supplement Continue monitor elctrolytes Abnormal urinalysis Positive proteinuria Continue ACEI Outpatient work-up History of chronic atrial fibrillation Rate control Normal sinus rhythm on EKG Not on anticoagulant due to his non compliant continue metoprolol, and aspirin, Plavix Chronic right leg lymphedema No signs of cellulitis at this time, continue to monitor Continue daily wound care Generalized Weakness PT/OT eval Fall precaution Paranoid schizophrenia Mood stable at this time DVT prophylaxis Heparin subcutaneous CODE STATUS Full code Admission and Anticipated Discharge Date Admission Date: April 24, 2020 Subjective Pt was seen and examined Lying in bed with no distress Pt said that his breathing is much better Denies any chest pain, palpitation, dizziness and fever Physical Exam Physical Exam: General- No acute distress Head- atraumatic Eyes- PERRL, EOMI, ENT- Poor dentition Neck- supple, no JVD Lungs- clear to auscultation Heart- regular rhythm; +murmur Abdomen- normal bowel sounds, soft, nontender Extremities- no calf tenderness, Chronic bilateral LE swelling RLE greater than the left Neuro- alert, oriented x 3; PERRL, EOMI; no facial palsy; no dysarthria Skin- warm & dry Results & Data Results & Data ([facility]) Vital Signs (Past 12 Hours) Vital Signs Temp Pulse Pulse Resp BP Pulse Ox 04/25/20 12:47 36.4 C L 74 20 115/76 94 04/25/20 11:47 91 H 04/25/20 07:57 36.6 C 59 L 20 130/85 99 04/25/20 03:12 36.4 C L 84 20 144/95 H 99 (1) CHF exacerbation Heart failure type: combined systolic and diastolic Qualified Code(s): I50.43 - Acute on chronic combined systolic (congestive) and diastolic (congestive) heart failure
[2020-04-25] MEDS ORDERED: ACETAMINOPHEN 1,000 MG/100 ML VIAL IV ONE (16:00)
[2020-04-25] MEDS: ATORVASTATIN 40 MG TAB PO SCH (20:09)
[2020-04-25] MEDS ORDERED: ACETAMINOPHEN 1,000 MG/100 ML VIAL IV STA (23:09)
[2020-04-25 23:57] LABS: Partial Thromboplastin Ratio 1.1; Partial Thromboplastin Time 29.7 Seconds (21.0-31.0)
[2020-04-26 07:45] LABS: BUN Creatinine Ratio 24.8 (10-20); Creatinine Clr Calc Pharmacy 59.3 ml/min; Est GFR (African American) 74.3; Est GFR (Non-African American) 64.1; Potassium 2.5 mmol/L (3.5-5.1)
[2020-04-26] MEDS: FUROSEMIDE 40 MG in SYRINGE 0 ML IV SCH ×2 (10:07→23:12)
[2020-04-26] MEDS: METOPROLOL SUCC 25MG EXT REL TAB PO SCH (10:08)
[2020-04-26] MEDS: lisinopriL 5 MG TAB PO SCH (10:08)
[2020-04-26] MEDS: CLOPIDOGREL BISULFATE 75 MG TAB PO SCH (10:08)
[2020-04-26] MEDS: ASPIRIN 81 MG ECTAB PO SCH (10:31)
[2020-04-26] MEDS: ENOXAPARIN INJ 40 MG/0.4 ML SYR SQ SCH (10:31)
[2020-04-26] MEDS: SPIRONOLACTONE 25 MG TAB PO SCH (12:24)
[2020-04-26] MEDS: POTASSIUM CHLORIDE / WTR 10 MEQ/100 ML PLCT IV SCH (12:25)
[2020-04-26] MEDS: POTASSIUM CHLORIDE 20 MEQ TABCR PO SCH (12:25)
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
[2020-04-26] MEDS ORDERED: POTASSIUM CHLORIDE 20 MEQ TABCR PO STA ×3 (16:09→22:33)
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
[2020-04-26] MEDS ORDERED: POTASSIUM CHLORIDE 10 MEQ TABCR PO STA (16:37)
[2020-04-26] MEDS ORDERED: POTASSIUM CHLORIDE 10 MEQ TABCR PO ONE (21:00)
[2020-04-26] MEDS ORDERED: POTASSIUM CHLORIDE 20 MEQ TABCR PO ONE (21:00)
[2020-04-26] MEDS: ATORVASTATIN 40 MG TAB PO SCH (22:43)
[2020-04-27] MEDS ORDERED: POTASSIUM CHLORIDE 20 MEQ TABCR PO ONE (01:00)
[2020-04-27] MEDS ORDERED: FUROSEMIDE 40 MG/4 ML VIAL IV SCH ×2 (02:00→09:00)
--- NOTE | 2020-04-27 07:51 | Psychiatric Consultation ---
Date of Consultation April 27, 2020 Impression / Recommendations Impression 69 yo male with a history of schizophrenia, currently he is experiencing multiple delusions related to his apartment and these are directly causing medication non-compliance for his cardiac medications. He continues to state he will not take life-sustaining medications upon discharge from the hospital but is accepting of his care at this time in the hospital. Will need to clarify level of care recs from medical team. Discussed with patient that he would benefit from a trial of Zyprexa as a mood stabilizer to help sleep and appetite as his delusions are interfering with him sleeping and eating. I mainly focussed on him feeling calmer in the evening and sleep but will need to be more specific re: longer term risks as he would gain insight. He ultimately agreed to try Zyprexa zypdis tonight and 5 mg will be ordered. Cardiology supports and will update Dr. Valentine. Psych History Identifying Data 69 yo male with long hx of homelessness and remote dx of schizophrenia, well known to our consult service admit with hypervolumia and hypokalemia to medical floor with cardiology consulting due to significant cardiomyopathy (EF 15-20%). Chief Complaint "Bad things happen in that apartment". History of Present Illness Mendoza has been living at [facility], told primary medical teams that not taking medications as "they all go bad" in his apartment. He believes that people have in the apartment and describes sleeping on his couch rather than the bedroom due to a presence he feels by the window. He is also paranoid re: the bathroom, states this is why he won't take Lasix as he "can't imagine going in there" as "bad things have happened". When discussed further he in a disorganized fashion tries to explain how county workers get surrounded by this "white fog" when they drop off his things and that he won't then eat the food as "they (spirits) did something to it". Says he was gaining weight regardless, "I was like strong man" and reviewed that this is actually fluid from his heart failure. He states that fine taking meds "when I'm in trouble", initially refused potassium supplement but also complied. He describes getting very anxious in his apartment due to "that place messing with me" and believes that staff at [facility] share in his delusion. States he only stays there as "otherwise I'm on the street and I can't do that any more" so some degree of insight. Past Psychiatric History Previous Psych History: remote Current Psychiatric Diagnosis: schizophrenia Past Medication Trials: he recalls Haldol and states "i'll always refuse that stuff" Allergies Allergy/AdvReac Type Severity Reaction Status Date / Time horse dander Allergy Unknown HORSE HAIR Verified 04/24/20 16:49 tetanus toxoid, adsorbed Allergy Unknown Unknown Verified 04/24/20 16:49 Home Medications Home Medications Medication Instructions Recorded Confirmed Type nitroglycerin [Nitrostat] 0.4 mg SUBLINGUAL PRN PRN 30 Days 12/13/19 04/24/20 Rx #30 tab aspirin [Ecotrin Low Strength] 81 mg PO QAM 30 Days #30 tab 02/04/20 04/24/20 Rx atorvastatin [Lipitor] 80 mg PO HS 30 Days #30 tab 02/04/20 04/24/20 Rx clopidogrel [Plavix] 75 mg PO DAILY #30 tab 02/04/20 04/24/20 Rx furosemide [Lasix] 40 mg PO DAILY 30 Days #30 tab 02/04/20 04/24/20 Rx lisinopril [Zestril] 5 mg PO QAM 30 Days #30 tab 02/04/20 04/24/20 Rx metoprolol succinate 12.5 mg PO DAILY 30 Days #15 tab 02/04/20 04/24/20 Rx Family History unknown Substance Abuse History denies Personal History Living Arrangements: Apartment Employment Status: Disabled Marital Status: Single Beliefs That Will Affect Care: None Patient History Medical History CAD (coronary artery disease) Cholecystitis, acute Chronic systolic CHF (congestive heart failure) (Acute) History of DVT (deep vein thrombosis) History of pancreatitis History of testicular cancer History of tobacco abuse Homelessness HTN (hypertension) (Chronic) Hypertension Hyperthyroidism Ischemic cardiomyopathy Lymphedema of right lower extremity (Acute) Mitral regurgitation Pleural effusion Schizophrenia (Acute) STEMI (ST elevation myocardial infarction) Tricuspid regurgitation Surgical History Hx of heart artery stent Status post cardiac catheterization Social History Preferred Language: Slovenian Communication Ability: Effective Sponge Clipper Required: No Beliefs That Will Affect Care: None marital status: Current Living Situation: Alone Current Living Situation Comment: apartment Other Information That Helps Us Care for You: No Feels Safe at Home: Yes Smoking Status: Former smoker Number of Years Since Quit: 10 ; Second Hand Exposure: No ; Hx Alcohol Use: Yes Alcohol type: hard liquor Hx Substance Use: No Physical Exam Psychiatric: Orientation: alert, oriented to person and oriented to place Apperance: + disheveled Eye Contact: + fair eye contact Motor Behavior: no abnormal motor movements Speech: normal rate/rhythm/volume of speech Affect: euthymic affect Mood: + anxious mood Thought Process: + tangential thought process Thought Content: + paranoid and + delusions Suicidal Thoughts: denies suicidal thoughts Homicidal Thoughts: denies homicidal thoughts Hallucinations: no auditory hallucinations and no visual hallucinations Cognition: attention grossly intact Insight: + impaired insight Judgement: + impaired judgement Vital Signs (Past 24 Hours): Last Vital Signs Temp 36.4 C L 04/27/20 04:00 Pulse 73 04/27/20 04:00 Resp 16 04/27/20 04:00 BP 114/75 04/27/20 04:00 Pulse Ox 97 04/27/20 04:00 Review of Systems All systems reviewed & are unremarkable except as noted in HPI & below Results & Data ([facility]) Medications Administered [facility]ir[facility] [place]: 05/25/20 08:59 Last Admin: 04/26/20 10:31 Dose: Not Given Documented by: [id number] Admin: 04/25/20 10:02 Dose: Not Given Documented by: [id number] Atorvastatin Calcium (Lipitor) 80 mg PO HS [facility] Stop: 05/25/20 20:59 Last Admin: 04/26/20 22:43 Dose: Not Given Documented by: [id number] Admin: 04/25/20 20:09 Dose: 80 mg Documented by: [id number] Clopidogrel Bisulfate (Plavix) 75 mg PO DAILY [facility] Stop: 05/25/20 08:59 Last Admin: 04/26/20 10:08 Dose: 75 mg Documented by: [id number] Admin: 04/25/20 09:10 Dose: 75 mg Documented by: [id number] Enoxaparin Sodium (Lovenox) 40 mg SQ QAM [facility] Stop: 05/25/20 08:59 Last Admin: 04/26/20 10:31 Dose: Not Given Documented by: [id number] Admin: 04/25/20 10:02 Dose: Not Given Documented by: [id number] Lisinopril (Zestril) 5 mg PO QAM [facility] Stop: 05/25/20 08:59 Last Admin: 04/26/20 10:08 Dose: 5 mg Documented by: [id number] Admin: 04/25/20 09:09 Dose: 5 mg Documented by: [id number] Metoprolol Succinate (Toprol Xl) 12.5 mg PO DAILY [facility] Stop: 05/25/20 08:59 Last Admin: 04/26/20 10:08 Dose: 12.5 mg Documented by: [id number] Admin: 04/25/20 09:09 Dose: 12.5 mg Documented by: [id number] Potassium Chloride (Klor-Con M20) 20 meq PO DAILY [facility] Stop: 05/25/20 08:59 Last Admin: 04/26/20 12:25 Dose: Not Given Documented by: [id number] Admin: 04/25/20 10:02 Dose: Not Given Documented by: [id number] Spironolactone (Aldactone) 25 mg PO QAM [facility] Stop: 05/26/20 10:14 Last Admin: 04/26/20 12:24 Dose: 25 mg Documented by: [id number] Tramadol HCl (Ultram) 50 mg PO Q6H PRN PRN Reason: Pain Stop: 05/24/20 21:21 Last Admin: 04/24/20 22:40 Dose: 50 mg Documented by: [id number] Coding Level of Care Code 34795 U Intl Hosp Care Lvl 2
[2020-04-27] MEDS: ASPIRIN 81 MG ECTAB PO SCH (09:54)
[2020-04-27] MEDS: SPIRONOLACTONE 25 MG TAB PO SCH (09:55)
[2020-04-27] MEDS: METOPROLOL SUCC 25MG EXT REL TAB PO SCH (09:55)
[2020-04-27] MEDS: ENOXAPARIN INJ 40 MG/0.4 ML SYR SQ SCH (09:55)
[2020-04-27] MEDS: lisinopriL 5 MG TAB PO SCH (09:56)
[2020-04-27 09:57] LABS: BUN Creatinine Ratio 22.7 (10-20); Calcium 7.8 mg/dl (8.5-10.1); Creatinine Clr Calc Pharmacy 60.8 ml/min; Est GFR (African American) 76.7; Est GFR (Non-African American) 66.2; Potassium 3.5 mmol/L (3.5-5.1)
[2020-04-27] MEDS: CLOPIDOGREL BISULFATE 75 MG TAB PO SCH (09:57)
[2020-04-27] MEDS: POTASSIUM CHLORIDE 20 MEQ TABCR PO SCH ×2 (11:30→21:29)
[2020-04-27] MEDS: FUROSEMIDE 40 MG in SYRINGE 0 ML IV SCH ×2 (11:30→21:28)
--- NOTE | 2020-04-27 15:11 | Cardiology Progress Note ---
Date of Service April 27, 2020 Assessment & Plan (1) Acute on chronic systolic (congestive) heart failure: (2) Noncompliance with medications: (3) Ischemic cardiomyopathy: (4) Tricuspid regurgitation: (5) CAD (coronary artery disease): (6) Paranoid schizophrenia: (7) Paroxysmal atrial fibrillation: (8) Mitral regurgitation: (9) Hypertension: ASSESSMENT/PLAN: 1. Acute on chronic systolic CHF: Hypervolemia is improving daily. CHF exacerbation is likely due to medication noncompliance likely due to his mental illness, dietary noncompliance (does not maintain low-sodium diet), in the setting of severely reduced LV systolic function. Continue diuresis at current dosing with Lasix and spironolactone. Monitor electrolytes, I&Os, and daily weights closely. Low-sodium diet. 2. Ischemic cardiomyopathy: Reduced LV and RV systolic function. Noncompliance continues to be a major issue as noted. Can continue with his previously tolerated medications such as lisinopril and metoprolol succinate. If it appears as though he will take these medications long-term, can attempt titration as an outpatient. ICD has not been pursued due to ongoing issues with his mental health and noncompliance. He primarily has been followed by Dr. Carter of . 3. CAD s/p Cx PCI: Has multivessel CAD. No angina. Can continue dual anti- platelet therapy. Continue beta-polo while hospitalized. Continue high- intensity statin therapy, but once again he states that he will not take any medications once discharged. He has minimally elevated troponins likely due to decompensated CHF, as he is not presenting with acute coronary syndrome. 4. Medication noncompliance: This appears to be due to his schizophrenia based on his description of medications changing into dangerous things and his fear of using his bathroom. Hopefully this will improve with treatment of his schizophrenia. 5. Hypertension: Blood pressure reasonably controlled. Continue current regimen. 6. Paroxysmal atrial fibrillation: Currently in sinus rhythm. Has had paroxysmal AFib in the past. He is noncompliant with medications and therefore anticoagulation does not appear to be a safe option for him. 7. Mitral regurgitation: Non severe. No further evaluation necessary at this time. 8. Tricuspid regurgitation: Non severe. He did have a mass previously described on prior echoes however this was not noted on echo from this hospitalization. There was concern in the past for endocarditis however clinically he did not appear to be infected and has not had any further sequela as it was thought that his abnormal blood culture was due to contamination. 9. Paranoid schizophrenia: Appreciate psychiatry assistance. Treatment as per Psychiatry peer 10. Disposition: Cardiology will continue to follow. Patient care discussed with psychiatry. Admission and Anticipated Discharge Date Admission Date: April 24, 2020 Subjective He states that his breathing is better today however acknowledges that he has not yet ambulated much. He denies chest pain, syncope, near-syncope, palpitations. Review of systems: As above. Physical Exam Physical Exam: Gen.: No acute distress. Alert. HEENT: Anicteric sclera. Neck: Possible mild JVD, but improved. Cardiac: No ventricular heave. Regular. Normal S1-S2. No audible murmurs, rubs, or gallops. Pulmonary: Clear to auscultation bilaterally without wheezes, rales, or rhonchi. Abdomen: Soft, nontender, nondistended, with normoactive bowel sounds. No bruits noted. Extremities: 2+ radial pulses bilaterally. 1+ bilateral lower extremity edema to the hips (Improved). Right lower extremity larger in circumference compared to the left. No cyanosis. Results & Data ([facility]) Vital Signs (Past 12 Hours) Vital Signs Temp Pulse Resp BP Pulse Ox 04/27/20 08:06 36.7 C 65 20 116/79 100 04/27/20 04:00 36.4 C L 73 16 114/75 97 Intake & Output 04/25/20 04/26/20 04/27/20 04/28/20 06:59 06:59 06:59 06:59 Intake Total 60 / 60 780 / 780 700 / 700 240 / 240 Output Total 3800 / 3800 3576 / 3576 4227 / 4227 Balance -3740 / -3740 -2796 / -2796 -3527 / -3527 240 / 240 Weight 76.9 kg 74.1 kg 70.5 kg Laboratory Results Laboratory Results - last 24 hr 04/26/20 04/27/20 19:53 07:30 Sodium 149 H Potassium 2.7 L 3.5 D Chloride 115 H Carbon Dioxide 27 Anion Gap 7.0 BUN 26 H Creatinine 1.14 Est Cr Clr Drug Dosing 60.8 Est GFR ( Amer) 76.7 Est GFR (Non-Af Amer) 66.2 BUN/Creatinine Ratio 22.7 H Glucose 82 Calcium 7.8 L Diagnostic Findings Telemetry personally reviewed: Sinus rhythm. No significant arrhythmia. Medications Administered Current Inpatient Medications Acetaminophen (Tylenol) 650 mg PO Q4H PRN PRN Reason: Pain or Fever Stop: 05/24/20 21:21 Aspirin (Ecotrin Ectab) 81 mg PO QAM [facility] Stop: 05/25/20 08:59 Last Admin: 04/27/20 09:54 Dose: 81 mg Documented by: Atorvastatin Calcium (Lipitor) 80 mg PO HS [facility] Stop: 05/25/20 20:59 Last Admin: 04/26/20 22:43 Dose: Not Given Documented by: Clopidogrel Bisulfate (Plavix) 75 mg PO DAILY [facility] Stop: 05/25/20 08:59 Last Admin: 04/27/20 09:57 Dose: 75 mg Documented by: Enoxaparin Sodium (Lovenox) 40 mg SQ QAM [facility] Stop: 05/25/20 08:59 Last Admin: 04/27/20 09:55 Dose: Not Given Documented by: Furosemide 40 mg/ Syringe 4 mls @ 4 mls/min IV Q12H [facility] Stop: 04/27/20 21:00 Last Admin: 04/27/20 11:30 Dose: 4 mls/min Documented by: Lisinopril (Zestril) 5 mg PO QAM [facility] Stop: 05/25/20 08:59 Last Admin: 04/27/20 09:56 Dose: 5 mg Documented by: Metoprolol Succinate (Toprol Xl) 12.5 mg PO DAILY [facility] Stop: 05/25/20 08:59 Last Admin: 04/27/20 09:55 Dose: 12.5 mg Documented by: Olanzapine (Zyprexa Zydis Od) 5 mg PO [facility] Stop: 05/27/20 20:59 Potassium Chloride (Klor-Con M20) 20 meq PO DAILY [facility] Stop: 05/25/20 08:59 Last Admin: 04/27/20 11:30 Dose: 20 meq Documented by: Spironolactone (Aldactone) 25 mg PO QAM [facility] Stop: 05/26/20 10:14 Last Admin: 04/27/20 09:55 Dose: 25 mg Documented by: Tramadol HCl (Ultram) 50 mg PO Q6H PRN PRN Reason: Pain Stop: 05/24/20 21:21 Last Admin: 04/24/20 22:40 Dose: 50 mg Documented by: PG Care Time/CCT Total # of Minutes Spent Total Time Spent with Patient: Total time spent is greater than 50% in coordination of care (as documented) at patient's floor/unit and/or counseling patient: Coding Level of Care Code 53915 Subseq Hosp Care Lvl 3 Diagnoses Acute on chronic systolic (congestive) heart failure I50.23 Noncompliance with medications Z91.14 Ischemic cardiomyopathy I25.5 Tricuspid regurgitation I07.1 CAD (coronary artery disease) I25.10 Paranoid schizophrenia F20.0 Paroxysmal atrial fibrillation I48.0 Mitral regurgitation I34.0 Hypertension I10
--- NOTE | 2020-04-27 17:02 | Hospitalist Progress Note ---
Date of Service April 27, 2020 Assessment & Plan (1) CHF exacerbation: Acute on chronic systolic congestive heart failure exacerbation 69-year-old male with history of ischemic cardiomyopathy, combined systolic and diastolic congestive heart failure, ejection fraction 15 to 20%, Valvular heart disease, chronic atrial fibrillation not on anticoagulation, paranoid schizophrenia, presenting with progressive lower extremity edema and shortness of breath. Secondary to poor adherence to medication regimen Does not take any medication once discharge from the hospital since January CXR on admission showed cardiomegaly with prominence of the central pulmonary vasculature. Right larger than left pleural effusions with bibasilar consolidation. Lasix 80 mg IV at the ER Continue Lasix 40mg IV BID Repeat CXR showed stable components of congestive failure. Unchanged right pleural effusion. Cardiology on board Continued fluid restriction 1500 mL's per day, 2 g sodium diet Echo done today showed mildly dilated left ventricle with severely reduced systolic function with ejection fraction 15 to 20%. Akinesis of the inferior lateral wall, basal anterolateral wall, basal to mid inferior, and basal inferior septal wall segment. Severe global hypokinesis Will monitor I/O Continue spironolactone 25mg daily Continue monitor BMP while on IV diuresis Clinically improves Right Pleural Effusion CXR on admission showed Right larger than left pleural effusions with bibasilar consolidation Continue IV diuresis If no improvement, will discuss with pt about thoracentesis, but due to his mental health not sure if he will want to proceed Will repeat CXR in am Mild troponin elevation Possible related to CHF exacerbation Troponin 0.059 on admission, then dropped to Troponin 0.050 EKG showed nonspecific T wave changes in the lateral leads Non compliant with medication Continue aspirin, Plavix, metoprolol, atorvastatin Ischemic Cardiomyopathy Discussed with patient that he needs to be complaint with his med ECHO with EF 15 to 20 % Continue Metoprolol, Lasix and Lisinopril Defer to his cardiology to address for ICD placement Hypokalemia Due to IV lasix Potassium 3.5 today After discussed with pt that i would hold tonight dose of Lasix due to the low K, he agreed to take potassium supplement Agreed to take K supplement before taking Lasix if K low Check BMP to monitor electrolytes Abnormal urinalysis Positive proteinuria Continue ACEI Outpatient work-up History of chronic atrial fibrillation Rate control Normal sinus rhythm on EKG Not on anticoagulant due to his non compliant continue metoprolol, and aspirin, Plavix Chronic right leg lymphedema No signs of cellulitis at this time, continue to monitor Continue daily wound care Generalized Weakness PT/OT eval Fall precaution Paranoid schizophrenia Continue refusing taking his meds Does not take any medication at home once discharge since pt is so paranoid and believes someone changed his meds He mentioned to the analytical chemistry teacher that a white force that attacked him Psych on board Recommended to start on Zyprexa 5mg HS DVT prophylaxis Heparin subcutaneous CODE STATUS Full code Admission and Anticipated Discharge Date Admission Date: April 24, 2020 Subjective Pt was seen and examined Lying in bed with no distress Pt said that he is diuresis very well He agreed to take the K supplement Denies any chest pain, palpitation, dizziness and SOB Physical Exam Physical Exam: General- No acute distress Head- atraumatic Eyes- PERRL, EOMI, ENT- Poor dentition Neck- supple, no JVD Lungs- clear to auscultation Heart- regular rhythm; +murmur Abdomen- normal bowel sounds, soft, nontender Extremities- no calf tenderness, Chronic bilateral LE swelling RLE greater than the left Neuro- alert, oriented x 3; PERRL, EOMI; no facial palsy; no dysarthria Skin- warm & dry Results & Data Results & Data ([facility]) Vital Signs (Past 12 Hours) Vital Signs Temp Pulse Resp BP Pulse Ox 04/27/20 15:41 36.8 C 72 21 109/62 98 04/27/20 08:06 36.7 C 65 20 116/79 100 (1) CHF exacerbation Heart failure type: combined systolic and diastolic Qualified Code(s): I50.43 - Acute on chronic combined systolic (congestive) and diastolic (congestive) heart failure
[2020-04-27] MEDS ORDERED: OLANZapine 5 MG TABLET PO SCH (21:00)
[2020-04-27] MEDS: OLANZAPINE ZYDIS 5 MG ORALLY DIS. TAB PO SCH (21:26)
[2020-04-27] MEDS: ATORVASTATIN 40 MG TAB PO SCH (21:27)
[2020-04-28] MEDS: TRAMADOL HCL 50 MG TABLET PO PRN ×2 (02:53→21:20)
[2020-04-28 08:19] LABS: BUN Creatinine Ratio 22.2 (10-20); Calcium 8.3 mg/dl (8.5-10.1); Creatinine Clr Calc Pharmacy 60.2 ml/min; Est GFR (African American) 76.7; Est GFR (Non-African American) 66.2; Magnesium 1.7 mg/dl (1.8-2.4); Potassium 3.4 mmol/L (3.5-5.1)
[2020-04-28] MEDS: ASPIRIN 81 MG ECTAB PO SCH (08:36)
[2020-04-28] MEDS: SPIRONOLACTONE 25 MG TAB PO SCH (08:36)
[2020-04-28] MEDS: METOPROLOL SUCC 25MG EXT REL TAB PO SCH (08:36)
[2020-04-28] MEDS: lisinopriL 5 MG TAB PO SCH (08:36)
[2020-04-28] MEDS: ENOXAPARIN INJ 40 MG/0.4 ML SYR SQ SCH (08:37)
[2020-04-28] MEDS: CLOPIDOGREL BISULFATE 75 MG TAB PO SCH (08:37)
[2020-04-28] MEDS ORDERED: MAGNESIUM SULFATE / D5W 1 GM/100 ML BAG IV ONE (08:45)
[2020-04-28] MEDS: POTASSIUM CHLORIDE 20 MEQ TABCR PO SCH ×2 (09:53→22:13)
[2020-04-28] MEDS: FUROSEMIDE 40 MG in SYRINGE 0 ML IV SCH ×2 (11:07→22:15)
[2020-04-28] MEDS: POTASSIUM CHLORIDE 20 MEQ/15 ML UDC PO SCH ×2 (11:07→21:22)
--- NOTE | 2020-04-28 11:59 | Cardiology Progress Note ---
Date of Service April 28, 2020 Assessment & Plan (1) Acute on chronic systolic (congestive) heart failure: (2) Noncompliance with medications: (3) Ischemic cardiomyopathy: (4) Tricuspid regurgitation: (5) CAD (coronary artery disease): (6) Paranoid schizophrenia: (7) Paroxysmal atrial fibrillation: (8) Mitral regurgitation: (9) Hypertension: ASSESSMENT/PLAN: 1. Acute on chronic systolic CHF: He remains hypervolemic but is improving. He is now net negative 11.8 liters during this hospital stay. CHF exacerbation is likely due to medication noncompliance likely due to his mental illness, dietary noncompliance (does not maintain low-sodium diet), in the setting of severely re duced LV systolic function. Continue diuresis at current dosing with Lasix and spironolactone. Monitor electrolytes, I&Os, and daily weights closely. Low- sodium diet. 2. Ischemic cardiomyopathy: Reduced LV and RV systolic function. Noncompliance continues to be a major issue as noted. Can continue with his previously tolerated medications such as lisinopril and metoprolol succinate. If it appears as though he will take these medications long-term, can attempt titration as an outpatient. ICD has not been pursued due to ongoing issues with his mental health and noncompliance. He primarily has been followed by Dr. [facility]. 3. CAD s/p Cx PCI: Has multivessel CAD. No angina. Continuedual anti-platelet therapy. Continue beta-polo and high-intensity statin therapy. He has minimally elevated troponins likely due to decompensated CHF, as he is not presenting with acute coronary syndrome. 4. Medication noncompliance: This appears to be due to his schizophrenia based on his description of medications changing into dangerous things and his fear of using his bathroom. Hopefully this will improve with treatment of his schizophrenia, however he has refused prescribed medication by Psychiatry. 5. Hypertension: Blood pressure is well controlled. No changes made today. 6. Paroxysmal atrial fibrillation: Currently in sinus rhythm. Has had paroxysmal AFib in the past. He is noncompliant with medications and therefore anticoagulation does not appear to be a safe option for him. 7. Mitral regurgitation: Non severe. No further evaluation necessary at this time. 8. Tricuspid regurgitation: Non severe. He did have a mass previously described on prior echoes however this was not noted on echo from this hospitalization. There was concern in the past for endocarditis however clinically he did not appear to be infected and has not had any further sequela as it was thought that his abnormal blood culture was due to contamination. 9. Paranoid schizophrenia: Psychiatry has prescribed Zyprexa, but he has refused the medication. 10. Disposition: Cardiology will continue to follow. Patient care discussed with primary hospitalist, Dr. Valentine. Admission and Anticipated Discharge Date Admission Date: April 24, 2020 Subjective He is feeling better today. Shortness of breath has resolved at rest. He did have some dyspnea with exertion yesterday when walking in the hallways. He denies chest pain, palpitations, syncope, or bleeding. He states that the filth from his apartment followed him here but he has finally been able to get rid of it and because of this, he feels better. Review of systems: As above. Physical Exam Physical Exam: Gen.: No acute distress. Alert. HEENT: Anicteric sclera. Neck: Mild JVD with hepatic jugular reflux. Cardiac: No ventricular heave. Regular. Normal S1-S2. No audible murmurs, rubs, or gallops. Pulmonary: Clear to auscultation bilaterally without wheezes, rales, or rhonchi. Abdomen: Soft, nontender, nondistended, with normoactive bowel sounds. No bruits noted. Extremities: 2+ radial pulses bilaterally. 1+ bilateral lower extremity edema to the hips, most prominently in the dependent areas in the proximal upper extremities (improving). Right lower extremity larger in circumference compared to the left. No cyanosis. Results & Data ([facility]) Vital Signs (Past 12 Hours) Vital Signs Temp Pulse Pulse Pulse Resp BP Pulse Ox 04/28/20 07:25 36.6 C 77 20 126/76 91 04/28/20 07:22 70 04/28/20 04:00 36.6 C 86 17 127/85 98 04/28/20 00:24 36.7 C 83 19 108/69 100 Intake & Output 04/26/20 04/27/20 04/28/20 04/29/20 06:59 06:59 06:59 06:59 Intake Total 780 / 780 700 / 700 720 / 720 Output Total 3576 / 3576 4227 / 4227 2500 / 2500 Balance -2796 / -2796 -3527 / -3527 -1780 / -1780 Weight 74.1 kg 70.5 kg 67.7 kg Laboratory Results Laboratory Results - last 24 hr 04/28/20 07:23 Sodium 145 Potassium 3.4 L Chloride 109 H Carbon Dioxide 30 Anion Gap 6.0 BUN 25 H Creatinine 1.14 Est Cr Clr Drug Dosing 60.2 Est GFR ( Amer) 76.7 Est GFR (Non-Af Amer) 66.2 BUN/Creatinine Ratio 22.2 H Glucose 83 Calcium 8.3 L Magnesium 1.7 L Diagnostic Findings Telemetry personally reviewed: Sinus rhythm. Medications Administered Current Inpatient Medications Acetaminophen (Tylenol) 650 mg PO Q4H PRN PRN Reason: Pain or Fever Stop: 05/24/20 21:21 Aspirin (Ecotrin Ectab) 81 mg PO [facility] Stop: 05/25/20 08:59 Last Admin: 04/28/20 08:36 Dose: 81 mg Documented by: Atorvastatin Calcium (Lipitor) 80 mg PO [facility] Stop: 05/25/20 20:59 Last Admin: 04/27/20 21:27 Dose: Not Given Documented by: Clopidogrel Bisulfate (Plavix) 75 mg PO DAILY [facility] Stop: 05/25/20 08:59 Last Admin: 04/28/20 08:37 Dose: 75 mg Documented by: Enoxaparin Sodium (Lovenox) 40 mg SQ [facility] Stop: 05/25/20 08:59 Last Admin: 04/28/20 08:37 Dose: Not Given Documented by: Furosemide 40 mg/ Syringe 4 mls @ 4 mls/min IV BID [facility] Stop: 05/28/20 10:14 Last Admin: 04/28/20 11:07 Dose: 4 mls/min Documented by: Lisinopril (Zestril) 5 mg PO QAM [facility] Stop: 05/25/20 08:59 Last Admin: 04/28/20 08:36 Dose: 5 mg Documented by: Metoprolol Succinate (Toprol Xl) 12.5 mg PO DAILY [facility] Stop: 05/25/20 08:59 Last Admin: 04/28/20 08:36 Dose: 12.5 mg Documented by: Olanzapine (Zyprexa Zydis Od) 5 mg PO [facility] Stop: 05/27/20 20:59 Last Admin: 04/27/20 21:26 Dose: Not Given Documented by: Olanzapine (Zyprexa) 5 mg PO HS [facility] Stop: 05/27/20 20:59 Last Admin: 04/27/20 21:27 Dose: Not Given Documented by: Potassium Chloride (Amelia Ciel Elix) 20 meq PO BID [facility] Stop: 05/28/20 09:59 Last Admin: 04/28/20 11:07 Dose: 20 meq Documented by: Spironolactone (Aldactone) 25 mg PO QAM [facility] Stop: 05/26/20 10:14 Last Admin: 04/28/20 08:36 Dose: 25 mg Documented by: Tramadol HCl (Ultram) 50 mg PO Q6H PRN PRN Reason: Pain Stop: 05/24/20 21:21 Last Admin: 04/28/20 02:53 Dose: 50 mg Documented by: PG Care Time/CCT Total # of Minutes Spent Total Time Spent with Patient: Total time spent is greater than 50% in coordination of care (as documented) at patient's floor/unit and/or counseling patient: Coding Level of Care Code 74447 Subseq Hosp Care Lvl 3 Diagnoses Acute on chronic systolic (congestive) heart failure I50.23 Noncompliance with medications Z91.14 Ischemic cardiomyopathy I25.5 Tricuspid regurgitation I07.1 CAD (coronary artery disease) I25.10 Paranoid schizophrenia F20.0 Paroxysmal atrial fibrillation I48.0 Mitral regurgitation I34.0 Hypertension I10
--- NOTE | 2020-04-28 18:58 | Hospitalist Progress Note ---
Date of Service April 28, 2020 Assessment & Plan (1) CHF exacerbation: Acute on chronic systolic congestive heart failure exacerbation 69-year-old male with history of ischemic cardiomyopathy, combined systolic and diastolic congestive heart failure, ejection fraction 15 to 20%, Valvular heart disease, chronic atrial fibrillation not on anticoagulation, paranoid schizophrenia, presenting with progressive lower extremity edema and shortness of breath. Secondary to poor adherence to medication regimen Does not take any medication once discharge from the hospital since January CXR on admission showed cardiomegaly with prominence of the central pulmonary vasculature. Right larger than left pleural effusions with bibasilar consolidation. Lasix 80 mg IV at the ER Continue Lasix 40mg IV BID Repeat CXR showed stable components of congestive failure. Unchanged right pleural effusion. Cardiology on board Continued fluid restriction 1500 mL's per day, 2 g sodium diet Echo done today showed mildly dilated left ventricle with severely reduced systolic function with ejection fraction 15 to 20%. Akinesis of the inferior lateral wall, basal anterolateral wall, basal to mid inferior, and basal inferior septal wall segment. Severe global hypokinesis Continue monitor I/O Continue spironolactone 25mg daily Continue monitor BMP while on IV diuresis Clinically improves Right Pleural Effusion CXR on admission showed Right larger than left pleural effusions with bibasilar consolidation Continue IV diuresis If no improvement, will discuss with pt about thoracentesis, but due to his mental health not sure if he will want to proceed Will repeat CXR in am Mild troponin elevation Possible related to CHF exacerbation Troponin 0.059 on admission, then dropped to Troponin 0.050 EKG showed nonspecific T wave changes in the lateral leads Non compliant with medication Continue aspirin, Plavix, metoprolol, atorvastatin Ischemic Cardiomyopathy Discussed with patient that he needs to be complaint with his med ECHO with EF 15 to 20 % Continue Metoprolol, Lasix and Lisinopril Defer to his cardiology to address for ICD placement Hypokalemia Due to IV lasix Potassium 3.4 today He agreed to take potassium supplement today after talking to him Check BMP to monitor electrolytes Abnormal urinalysis Positive proteinuria Continue ACEI Outpatient work-up History of chronic atrial fibrillation Rate control Normal sinus rhythm on EKG Not on anticoagulant due to his non compliant continue metoprolol, and aspirin, Plavix Chronic right leg lymphedema No signs of cellulitis at this time, continue to monitor Continue daily wound care Generalized Weakness PT/OT eval Fall precaution Paranoid schizophrenia Continue refusing taking his meds Does not take any medication at home once discharge since pt is so paranoid and believes someone changed his meds He mentioned to the single stayer operator that a white force that attacked him Psych on board Recommended to start on Zyprexa 5mg HS Refused to take the Zyprexa last night, will encourage tonight to try to take it DVT prophylaxis Heparin subcutaneous CODE STATUS Full code Disposition Continue IV lasix Discharge once medically stable Will transfer to med/tele Admission and Anticipated Discharge Date Admission Date: April 24, 2020 Subjective Pt was seen and examined Lying in bed with no distress Sitting in bed with no distress He said that his breathing feels much better He refused the Zyprexa last night He said that the Zyprexa was for crazy people Denies any chest pain, palpitation and fever Physical Exam Physical Exam: General- No acute distress Head- atraumatic Eyes- PERRL, EOMI, ENT- Poor dentition Neck- supple, no JVD Lungs- clear to auscultation Heart- regular rhythm; +murmur Abdomen- normal bowel sounds, soft, nontender Extremities- no calf tenderness, Chronic bilateral LE swelling RLE greater than the left Neuro- alert, oriented x 3; PERRL, EOMI; no facial palsy; no dysarthria Skin- warm & dry Results & Data Results & Data ([facility]) Vital Signs (Past 12 Hours) Vital Signs Temp Pulse Pulse Resp BP Pulse Ox 04/28/20 16:00 66 04/28/20 15:36 36.9 C 70 20 91/57 L 92 04/28/20 11:09 36.5 C 66 21 96/63 L 95 04/28/20 07:25 36.6 C 77 20 126/76 91 04/28/20 07:22 70 (1) CHF exacerbation Heart failure type: combined systolic and diastolic Qualified Code(s): I50.43 - Acute on chronic combined systolic (congestive) and diastolic (congestive) heart failure
[2020-04-28] MEDS: OLANZAPINE ZYDIS 5 MG ORALLY DIS. TAB PO SCH (21:20)
[2020-04-28] MEDS: ATORVASTATIN 40 MG TAB PO SCH (21:20)
[2020-04-29] MEDS: FUROSEMIDE 40 MG in SYRINGE 0 ML IV SCH ×2 (08:14→20:51)
[2020-04-29] MEDS: ENOXAPARIN INJ 40 MG/0.4 ML SYR SQ SCH (08:14)
[2020-04-29] MEDS: METOPROLOL SUCC 25MG EXT REL TAB PO SCH (08:15)
[2020-04-29] MEDS: POTASSIUM CHLORIDE 20 MEQ TABCR PO SCH ×2 (08:15→20:52)
[2020-04-29] MEDS: CLOPIDOGREL BISULFATE 75 MG TAB PO SCH (08:15)
[2020-04-29] MEDS: ASPIRIN 81 MG ECTAB PO SCH (08:15)
[2020-04-29] MEDS: lisinopriL 5 MG TAB PO SCH (08:15)
[2020-04-29] MEDS: SPIRONOLACTONE 25 MG TAB PO SCH (08:16)
--- NOTE | 2020-04-29 15:58 | Hospitalist Progress Note ---
Date of Service April 29, 2020 Assessment & Plan Admission and Anticipated Discharge Date Admission Date: April 24, 2020 Results & Data Results & Data ([facility]) Vital Signs (Past 12 Hours) Vital Signs Temp Pulse Pulse Resp BP BP Pulse Ox 04/29/20 15:19 36.6 C 86 18 111/70 100 04/29/20 13:06 94 04/29/20 07:50 36.4 C L 66 18 100/65 100 04/29/20 07:48 88 04/29/20 04:18 36.5 C 51 L 18 101/65 100
--- NOTE | 2020-04-29 16:00 | Hospitalist Progress Note ---
Date of Service April 29, 2020 Assessment & Plan (1) Acute on chronic systolic (congestive) heart failure: (1) CHF exacerbation: Acute on chronic systolic congestive heart failure exacerbation 69-year-old male with history of ischemic cardiomyopathy, combined systolic and diastolic congestive heart failure, ejection fraction 15 to 20%, Valvular heart disease, chronic atrial fibrillation not on anticoagulation, paranoid schizophrenia, presenting with progressive lower extremity edema and shortness of breath. Secondary to poor adherence to medication regimen Did not take any medication once discharge from the hospital since January CXR on admission showed cardiomegaly with prominence of the central pulmonary vasculature. Right larger than left pleural effusions with bibasilar consolidation. Lasix 80 mg IV at the ER Continue Lasix 40mg IV BID cardiology following Echo : showed mildly dilated left ventricle with severely reduced systolic function with ejection fraction 15 to 20%. Akinesis of the inferior lateral wall, basal anterolateral wall, basal to mid inferior, and basal inferior septal wall segment. Severe global hypokinesis Continue monitor I/O Continue spironolactone 25mg daily Right Pleural Effusion due to vol overload /decompensated CHF CXR on admission showed Right larger than left pleural effusions with bibasilar consolidation Continue IV diuresis Mild troponin elevation Possible demand ischemia related to CHF exacerbation no complain of Chest pain SOB improved with diuresis Troponin 0.059 on admission, then dropped to Troponin 0.050 Continue aspirin, Plavix, metoprolol, atorvastatin Ischemic Cardiomyopathy Discussed with patient that he needs to be complaint with his med ECHO as above Continue Metoprolol, Lasix and Lisinopril atrial fibrillation Rate control Normal sinus rhythm on EKG Not on anticoagulant due to non compliance continue metoprolol, Chronic right leg lymphedema No signs of cellulitis at this time, continue to monitor Continue daily wound care Generalized Weakness PT/OT eval Fall precaution Paranoid schizophrenia Continues to refuse taking his meds Did not take any medication at home since last discharge since pt is so paranoid and believes someone changed his meds Psych on board Recommended to start on Zyprexa 5mg HS DVT prophylaxis Heparin subcutaneous CODE STATUS Full code Disposition expected to be discharged home when medically stable Admission and Anticipated Discharge Date Admission Date: April 24, 2020 Subjective complains of fluid restrictions thinks that we are trying to kill him by not allowing him to drink fluids - devastated that he is allowed only 3 small cans of spritie a day he is not given enough water to swallow his pills pt is counselled regarding taking meds -specially the Lasix to prevent vol overload and heart failure fluid restrictions are ordered to limit excess fluid to build up in his body - help him to breath better , improve leg swelling patient is not convinced , thinks medicines are not doing him any good and fluid restrictions killing him after discussion , pt is willing to co operate , take medicines if he is allowed to drink more fluids ordered to dc fluid restrictions pt is aware if he refuses to take Lasix /his other meds -he will be placed back in 1500 ml /day fluid restriction -pt is agreeable Review of Systems Review of Systems: All systems reviewed & are unremarkable except as noted in HPI & below Constitutional: as per Subjective / HPI Respiratory: no cough and no dyspnea Cardiovascular: + edema; no chest pain, no dyspnea, no orthopnea and no palpitations Physical Exam Constitutional: WD/WN, vitals as above no acute distress Eyes: PERRL, conjunctivae normal, anicteric sclerae ENMT: external ear and nose normal, oropharynx normal Neck: trachea midline, no thyromegaly Respiratory: normal respiratory effort; no respiratory distress Auscultation: no crackles and no wheezes Cardiovascular: Rate/Rhythm: regular rate and regular rhythm Extremities: + pedal edema and + edema Gastrointestinal (Abdomen): Percussion/Palpation: abdomen soft; abdomen nontender Neurologic: PERRL, EOMI, accommodation nl, no face palsy, no dysarthria Psychiatric: Orientation: alert and oriented x 3 Affect: + flat affect Insight: + limited insight Judgement: + poor judgement Results & Data Results & Data ([facility]) Vital Signs (Past 12 Hours) Vital Signs Temp Pulse Pulse Resp BP BP Pulse Ox 04/29/20 15:19 36.6 C 86 18 111/70 100 04/29/20 13:06 94 04/29/20 07:50 36.4 C L 66 18 100/65 100 04/29/20 07:48 88 04/29/20 04:18 36.5 C 51 L 18 101/65 100
[2020-04-29] MEDS: OLANZAPINE ZYDIS 5 MG ORALLY DIS. TAB PO SCH (20:52)
[2020-04-29] MEDS: ATORVASTATIN 40 MG TAB PO SCH (20:52)
[2020-04-30] MEDS: POTASSIUM CHLORIDE 20 MEQ TABCR PO SCH ×2 (08:40→21:02)
[2020-04-30] MEDS: ASPIRIN 81 MG ECTAB PO SCH (08:40)
[2020-04-30] MEDS: SPIRONOLACTONE 25 MG TAB PO SCH (08:40)
[2020-04-30] MEDS: FUROSEMIDE 40 MG in SYRINGE 0 ML IV SCH (08:40)
[2020-04-30] MEDS: ENOXAPARIN INJ 40 MG/0.4 ML SYR SQ SCH ×2 (08:41→08:45)
[2020-04-30] MEDS: CLOPIDOGREL BISULFATE 75 MG TAB PO SCH (08:41)
[2020-04-30] MEDS: METOPROLOL SUCC 25MG EXT REL TAB PO SCH (08:41)
[2020-04-30] MEDS: lisinopriL 5 MG TAB PO SCH (08:42)
[2020-04-30 12:17] LABS: BUN Creatinine Ratio 30.6 (10-20); Calcium 8.4 mg/dl (8.5-10.1); Creatinine Clr Calc Pharmacy 55.7 ml/min; Est GFR (African American) 70.7; Potassium 4.1 mmol/L (3.5-5.1)
[2020-04-30] MEDS: TRAMADOL HCL 50 MG TABLET PO PRN (13:41)
--- NOTE | 2020-04-30 14:19 | Cardiology Progress Note ---
Date of Service April 30, 2020 Assessment & Plan (1) Acute on chronic systolic (congestive) heart failure: (2) Noncompliance with medications: (3) Ischemic cardiomyopathy: (4) Tricuspid regurgitation: (5) CAD (coronary artery disease): (6) Paranoid schizophrenia: (7) Paroxysmal atrial fibrillation: (8) Mitral regurgitation: (9) Hypertension: ASSESSMENT/PLAN: 1. Acute on chronic systolic CHF: Nearing euvolemia. We will reduced Lasix to 40 mg IV once daily. Labs are suggesting mild azotemia. Question most recent I&Os charted but clinically continues to improve. CHF exacerbation is likely due to medication noncompliance likely due to his mental illness, dietary noncompliance (does not maintain low-sodium diet), in the setting of severely reduced LV systolic function. Continue diuresis at current dosing with Lasix and spironolactone. Monitor renal function, electrolytes, I&Os, and daily weights closely. Low-sodium diet. 2. Ischemic cardiomyopathy: Reduced LV and RV systolic function. Noncompliance continues to be a major issue as noted. Can continue with his previously tolerated medications such as lisinopril and metoprolol succinate. Will increase metoprolol succinate to 25 mg once daily. ICD has not been pursued due to ongoing issues with his mental health and noncompliance. He primarily has been followed by Dr. Carter of EP. 3. CAD s/p Cx PCI: Has multivessel CAD. No angina. Continue dual anti- platelet therapy. Continue beta-polo and high-intensity statin therapy. He had minimally elevated troponins likely due to decompensated CHF, as he did not present with acute coronary syndrome. 4. Medication noncompliance: This appears to be due to his schizophrenia based on his description of medications changing into dangerous things and his fear of using his bathroom. Hopefully this will improve with treatment of his schizophrenia. 5. Hypertension: Blood pressure has been acceptable. Continue current regimen with titration of metoprolol succinate. 6. Paroxysmal atrial fibrillation: Currently in sinus rhythm. Has had parox ysmal AFib in the past. He is noncompliant with medications and therefore anticoagulation does not appear to be a safe option for him. 7. Mitral regurgitation: Non severe. No further evaluation necessary at this time. 8. Tricuspid regurgitation: Non severe. He did have a mass previously described on prior echoes however this was not noted on echo from this hospitalization. There was concern in the past for endocarditis however clinically he did not appear to be infected and has not had any further sequela as it was thought that his abnormal blood culture was due to contamination. 9. Paranoid schizophrenia: Psychiatry has prescribed Zyprexa. 10. Disposition: Cardiology will continue to follow. TSH added to his labs as it has been abnormal when last evaluated in November. Admission and Anticipated Discharge Date Admission Date: April 24, 2020 Subjective He denies shortness of breath today. He denies chest pain, syncope, near- syncope, palpitations. His edema has improved but he admits that he continues to have edema in his right lower extremity. He walked in the hallway yesterday, completing 3 laps with better exercise tolerance compared to earlier this hospitalization. Review of systems: As above. Physical Exam Physical Exam: Gen.: No acute distress. Alert. HEENT: Anicteric sclera. Neck: Mild hepatic jugular reflux. No obvious JVD elevation. Cardiac: No ventricular heave. Regular. Normal S1-S2. No audible murmurs, rubs, or gallops. Pulmonary: Clear to auscultation bilaterally without wheezes, rales, or rhonchi. Abdomen: Soft, nontender, nondistended, with normoactive bowel sounds. No bruits noted. Extremities: 2+ radial pulses bilaterally. 1+ right lower extremity edema in the dependent areas, just distal to his hip. His left lower extremity is now without edema. Right lower extremity larger in circumference compared to the left. No cyanosis. Results & Data ([facility]) Vital Signs (Past 12 Hours) Vital Signs Temp Pulse Pulse Resp BP Pulse Ox 04/30/20 10:52 37.0 C 83 20 99/61 L 96 04/30/20 07:25 71 04/30/20 07:23 36.7 C 66 16 121/74 100 04/30/20 03:00 36.7 C 98 H 18 106/73 96 Intake & Output 04/28/20 04/29/20 04/30/20 05/01/20 06:59 06:59 06:59 06:59 Intake Total 720 / 720 680 / 680 1790 / 1790 1176 / 1176 Output Total 2500 / 2500 600 / 600 2250 / 2250 1400 / 1400 Balance -1780 / -1780 80 / 80 -460 / -460 -224 / -224 Weight 67.7 kg 66.8 kg 67 kg Laboratory Results Laboratory Results - last 24 hr 04/30/20 04/30/20 11:43 11:43 Sodium 145 Potassium 4.1 Chloride 111 H Carbon Dioxide 31 Anion Gap 3.0 BUN 37 H Creatinine 1.22 Est Cr Clr Drug Dosing 55.7 Est GFR ( Amer) 70.7 Est GFR (Non-Af Amer) 61.0 BUN/Creatinine Ratio 30.6 H Glucose 121 H Calcium 8.4 L TSH 10.500 H Diagnostic Findings Telemetry personally reviewed: Sinus rhythm. There was a ventricular triplet and a 6 beat run of atrial tachycardia. No sustained arrhythmia. Medications Administered Current Inpatient Medications Acetaminophen (Tylenol) 650 mg PO Q4H PRN PRN Reason: Pain or Fever Stop: 05/24/20 21:21 [facility]irin ([facility]rin [facility]ab) [facility] [place] Stop: 05/25/20 08:59 Last Admin: 04/30/20 08:40 Dose: 81 mg Documented by: Atorvastatin Calcium (Lipitor) 80 mg PO [facility] Stop: 05/25/20 20:59 Last Admin: 04/29/20 20:52 Dose: 80 mg Documented by: Clopidogrel Bisulfate (Plavix) 75 mg PO DAILY [facility] Stop: 05/25/20 08:59 Last Admin: 04/30/20 08:41 Dose: 75 mg Documented by: Enoxaparin Sodium (Lovenox) 40 mg SQ QAM [facility] Stop: 05/25/20 08:59 Last Admin: 04/30/20 08:45 Dose: Not Given Documented by: Furosemide 40 mg/ Syringe 4 mls @ 4 mls/min IV DAILY [facility] Stop: 05/31/20 08:59 Lisinopril (Zestril) [facility] [place] Stop: 05/25/20 08:59 Last Admin: 04/30/20 08:42 Dose: 5 mg Documented by: Metoprolol Succinate (Toprol Xl) 12.5 mg PO DAILY [facility] Stop: 05/25/20 08:59 Last Admin: 04/30/20 08:41 Dose: 12.5 mg Documented by: Olanzapine (Zyprexa Zydis Od) 5 mg PO [facility] Stop: 05/27/20 20:59 Last Admin: 04/29/20 20:52 Dose: 5 mg Documented by: Potassium Chloride (Klor-Con M20) 20 meq PO BID [facility] Stop: 05/28/20 21:44 Last Admin: 04/30/20 08:40 Dose: 20 meq Documented by: Spironolactone (Aldactone) 25 mg PO QAM [facility] Stop: 05/26/20 10:14 Last Admin: 04/30/20 08:40 Dose: 25 mg Documented by: Tramadol HCl (Ultram) 50 mg PO Q6H PRN PRN Reason: Pain Stop: 05/24/20 21:21 Last Admin: 04/30/20 13:41 Dose: 50 mg Documented by: PG Care Time/CCT Total # of Minutes Spent Total Time Spent with Patient: Total time spent is greater than 50% in coordination of care (as documented) at patient's floor/unit and/or counseling patient: Coding Level of Care Code 85400 Subseq Hosp Care Lvl 3 Diagnoses Acute on chronic systolic (congestive) heart failure I50.23 Noncompliance with medications Z91.14 Ischemic cardiomyopathy I25.5 Tricuspid regurgitation I07.1 CAD (coronary artery disease) I25.10 Paranoid schizophrenia F20.0 Paroxysmal atrial fibrillation I48.0 Mitral regurgitation I34.0 Hypertension I10
--- NOTE | 2020-04-30 16:10 | Hospitalist Progress Note ---
Date of Service April 30, 2020 Assessment & Plan (1) Acute on chronic systolic (congestive) heart failure: (1) CHF exacerbation: Acute on chronic systolic congestive heart failure exacerbation 69-year-old male with history of ischemic cardiomyopathy, combined systolic and diastolic congestive heart failure, ejection fraction 15 to 20%, Valvular heart disease, chronic atrial fibrillation not on anticoagulation, paranoid schizophrenia, presenting with progressive lower extremity edema and shortness of breath. Secondary to poor adherence to medication regimen Did not take any medication once discharge from the hospital since January CXR on admission showed cardiomegaly with prominence of the central pulmonary vasculature. Right larger than left pleural effusions with bibasilar consolidation. on Lasix 40 mg IV BID will change to PO Lasix in next 24-48 hrs cardiology following Echo : showed mildly dilated left ventricle with severely reduced systolic function with ejection fraction 15 to 20%. Akinesis of the inferior lateral wall, basal anterolateral wall, basal to mid inferior, and basal inferior septal wall segment. Severe global hypokinesis Continue monitor I/O Continue spironolactone 25mg daily Right Pleural Effusion due to vol overload /decompensated CHF CXR on admission showed Right larger than left pleural effusions with bibasilar consolidation getting diuresis Mild troponin elevation Possible demand ischemia related to CHF exacerbation no complain of Chest pain SOB improved with diuresis Troponin 0.059 on admission, then dropped to Troponin 0.050 Continue aspirin, Plavix, metoprolol, atorvastatin Ischemic Cardiomyopathy Discussed with patient that he needs to be complaint with his med ECHO as above Continue Metoprolol, Lasix and Lisinopril ELEVATED TSH : pt has not been taking levothyroxine for months started on 50 mg daily pt is known to be non compliant of medications once discharged from hospital atrial fibrillation Rate control Normal sinus rhythm on EKG Not on anticoagulant due to non compliance continue metoprolol, Chronic right leg lymphedema No signs of cellulitis at this time, continue to monitor Continue daily wound care Generalized Weakness PT/OT eval Fall precaution Paranoid schizophrenia Continues to refuse taking his meds Did not take any medication at home since last discharge since pt is so paranoid and believes someone changed his meds Psych on board Recommended to start on Zyprexa 5mg HS DVT prophylaxis Heparin subcutaneous CODE STATUS Full code Disposition expected to be discharged home when medically stable Admission and Anticipated Discharge Date Admission Date: April 24, 2020 Subjective feels his leg swelling is getting better no complain of SOB or orthopnea Review of Systems Constitutional: as per Subjective / HPI Cardiovascular: + edema; no chest pain, no dyspnea, no orthopnea and no palpitations Physical Exam Constitutional: WD/WN, vitals as above no acute distress Eyes: PERRL, conjunctivae normal, anicteric sclerae ENMT: external ear and nose normal, oropharynx normal Neck: trachea midline, no thyromegaly Respiratory: normal respiratory effort; no respiratory distress Auscultation: no crackles and no wheezes Cardiovascular: Rate/Rhythm: regular rate and regular rhythm Extremities: + pedal edema and + edema Gastrointestinal (Abdomen): Percussion/Palpation: abdomen soft; abdomen nontender Neurologic: PERRL, EOMI, accommodation nl, no face palsy, no dysarthria Psychiatric: Orientation: alert and oriented x 3 Affect: + flat affect Insight: + limited insight Judgement: + poor judgement Results & Data Results & Data ([facility]) Vital Signs (Past 12 Hours) Vital Signs Temp Pulse Pulse Resp BP Pulse Ox 04/30/20 15:13 36.7 C 84 21 117/63 96 04/30/20 10:52 37.0 C 83 20 99/61 L 96 04/30/20 07:25 71 04/30/20 07:23 36.7 C 66 16 121/74 100
[2020-04-30] MEDS: ATORVASTATIN 40 MG TAB PO SCH (21:00)
[2020-04-30] MEDS: OLANZAPINE ZYDIS 5 MG ORALLY DIS. TAB PO SCH (21:02)
[2020-05-01] MEDS: LEVOTHYROXINE SODIUM 50 MCG TABLET PO SCH (05:36)
[2020-05-01] MEDS ORDERED: LEVOTHYROXINE SODIUM 100 MCG TABLET PO SCH (06:30)
[2020-05-01] MEDS: ENOXAPARIN INJ 40 MG/0.4 ML SYR SQ SCH (08:59)
[2020-05-01] MEDS: CLOPIDOGREL BISULFATE 75 MG TAB PO SCH (09:00)
[2020-05-01] MEDS: ASPIRIN 81 MG ECTAB PO SCH (09:00)
[2020-05-01] MEDS ORDERED: FUROSEMIDE 40 MG in SYRINGE 0 ML IV SCH (09:00)
[2020-05-01] MEDS: SPIRONOLACTONE 25 MG TAB PO SCH (09:00)
[2020-05-01] MEDS: POTASSIUM CHLORIDE 20 MEQ TABCR PO SCH ×2 (09:00→20:52)
[2020-05-01] MEDS: lisinopriL 5 MG TAB PO SCH (09:01)
[2020-05-01] MEDS: METOPROLOL SUCC 25MG EXT REL TAB PO SCH (09:01)
--- NOTE | 2020-05-01 09:46 | Cardiology Progress Note ---
Date of Service May 01, 2020 Assessment & Plan (1) Acute on chronic systolic (congestive) heart failure: (2) Noncompliance with medications: (3) Ischemic cardiomyopathy: (4) Tricuspid regurgitation: (5) CAD (coronary artery disease): (6) Paranoid schizophrenia: (7) Paroxysmal atrial fibrillation: (8) Mitral regurgitation: (9) Hypertension: ASSESSMENT/PLAN: 1. Acute on chronic systolic CHF: Clinically he appears much improved. I would suggest he is close to his baseline. I would consider switching his Lasix to an oral formulation. His outpatient regimen was 40 milligrams daily. Seems that the most pressing issue is trying to determine we for increasing his compliance on an outpatient basis. 2. Ischemic cardiomyopathy: Continue Lasix, spironolactone, lisinopril and metoprolol 3. CAD s/p Cx PCI: Has multivessel CAD. No current symptoms suggestive of ischemia. Continue aspirin and Plavix. Continue beta-polo. Continue high- dose atorvastatin 4. Medication noncompliance: This appears to be the major barrier to improvement in care and reducing Re admissions. 5. Hypertension: Blood pressure has been acceptable. 6. Paroxysmal atrial fibrillation: Currently in sinus rhythm. Has had paroxysmal AFib in the past. He is noncompliant with medications and therefore anticoagulation does not appear to be a safe option for him. 7. Mitral regurgitation: Non severe. No further evaluation necessary at this time. 8. Tricuspid regurgitation: Non severe. This can be followed over time. 9. Paranoid schizophrenia: Psychiatry has prescribed Zyprexa. 10. Disposition: I will be away from the hospital for the next 2 days. I would suggest changing his intravenous Lasix to oral formulation. 40 milligrams daily would seem reasonable. He will need to have his electrolytes and renal function monitored. I think the major issue is ensuring good compliance with medical therapy at the time of discharge. For specific questions regarding his medical care over the next 2 days, please contact the on-call summer nanny for [facility] Admission and Anticipated Discharge Date Admission Date: April 24, 2020 Subjective This morning the patient claims to be feeling better overall. He still has some anxiety related to activity and associated dyspnea. However, he has been ambulatory around the room with limited dyspnea. Continues to have some lower extremity swelling primarily involving the right leg. He feels this is improved. He also feels that his increased abdominal girth has improved. Review of Systems Review of Systems: Per HPI. Physical Exam Physical Exam: Gen.: No acute distress. Alert. HEENT: Anicteric sclera. Neck: Mild hepatic jugular reflux. No obvious JVD elevation. Cardiac: No ventricular heave. Regular. Normal S1-S2. No audible murmurs, rubs, or gallops. Pulmonary: Generally clear with occasional crackles in the bases bilaterally. Normal respiratory effort. No expiratory wheezing. Abdomen: Soft, nontender, nondistended, with normoactive bowel sounds. No bruits noted. Extremities: 2+ radial pulses bilaterally. 1+ right lower extremity edema in the dependent areas, just distal to his hip. His left lower extremity is now without edema. Right lower extremity larger in circumference compared to the left. Right leg is bandaged with evidence of chronic lymphedema. No cyanosis. Results & Data ([facility]) Vital Signs (Past 12 Hours) Vital Signs Temp Pulse Resp BP Pulse Ox 05/01/20 07:12 36.7 C 66 18 103/64 98 05/01/20 04:00 36.6 C 72 20 104/65 97 04/30/20 23:00 36.7 C 83 20 120/76 98 Laboratory Results Abnormal Lab Results 04/30/20 04/30/20 11:43 11:43 Sodium 145 Potassium 4.1 Chloride 111 H Carbon Dioxide 31 Anion Gap 3.0 BUN 37 H Creatinine 1.22 Est Cr Clr Drug Dosing 55.7 Est GFR ( Amer) 70.7 Est GFR (Non-Af Amer) 61.0 BUN/Creatinine Ratio 30.6 H Glucose 121 H Calcium 8.4 L TSH 10.500 H PG Care Time/CCT Total # of Minutes Spent Total Time Spent with Patient: Total time spent is greater than 50% in coordination of care (as documented) at patient's floor/unit and/or counseling patient: Coding Level of Care Code 52269 Subseq Hosp Care Lvl 3 Diagnoses Acute on chronic systolic (congestive) heart failure I50.23 Noncompliance with medications Z91.14 Ischemic cardiomyopathy I25.5 Tricuspid regurgitation I07.1 CAD (coronary artery disease) I25.10 Paranoid schizophrenia F20.0 Paroxysmal atrial fibrillation I48.0 Mitral regurgitation I34.0 Hypertension I10
[2020-05-01] MEDS: TRAMADOL HCL 50 MG TABLET PO PRN (15:40)
[2020-05-01] MEDS ORDERED: MAGNESIUM HYDROXIDE SUSP 30 ML UDC PO PRN (16:27)
--- NOTE | 2020-05-01 16:56 | Hospitalist Progress Note ---
Date of Service May 01, 2020 Assessment & Plan (1) Acute on chronic systolic (congestive) heart failure: (1) CHF exacerbation: Acute on chronic systolic congestive heart failure exacerbation 69-year-old male with history of ischemic cardiomyopathy, combined systolic and diastolic congestive heart failure, ejection fraction 15 to 20%, Valvular heart disease, chronic atrial fibrillation not on anticoagulation, paranoid schizophrenia, presenting with progressive lower extremity edema and shortness of breath. Secondary to poor adherence to medication regimen Did not take any medication once discharge from the hospital since January CXR on admission showed cardiomegaly with prominence of the central pulmonary vasculature. Right larger than left pleural effusions with bibasilar consolidation. lasix changed to 40 mg PO daily cardiology following Echo : showed mildly dilated left ventricle with severely reduced systolic function with ejection fraction 15 to 20%. Akinesis of the inferior lateral wall, basal anterolateral wall, basal to mid inferior, and basal inferior septal wall segment. Severe global hypokinesis Continue monitor I/O Continue spironolactone 25mg daily Right Pleural Effusion due to vol overload /decompensated CHF CXR on admission showed Right larger than left pleural effusions with bibasilar consolidation getting diuresis Mild troponin elevation Possible demand ischemia related to CHF exacerbation no complain of Chest pain SOB improved with diuresis Troponin 0.059 on admission, then dropped to Troponin 0.050 Continue aspirin, Plavix, metoprolol, atorvastatin Ischemic Cardiomyopathy Discussed with patient that he needs to be complaint with his med ECHO as above Continue Metoprolol, Lasix and Lisinopril ELEVATED TSH : pt has not been taking levothyroxine for months started on 50 mg daily pt is known to be non compliant of medications once discharged from hospital atrial fibrillation Rate control Normal sinus rhythm on EKG Not on anticoagulant due to non compliance continue metoprolol, Chronic right leg lymphedema No signs of cellulitis at this time, continue to monitor Continue daily wound care Generalized Weakness PT/OT eval Fall precaution Paranoid schizophrenia Continues to refuse taking his meds Did not take any medication at home since last discharge since pt is so paranoid and believes someone changed his meds Psych on board Recommended to start on Zyprexa 5mg HS DVT prophylaxis Heparin subcutaneous CODE STATUS Full code Disposition expected to be discharged home when medically stable Admission and Anticipated Discharge Date Admission Date: April 24, 2020 Subjective complains of abdominal pain and nausea no SOB , no cough , no fever or chills Review of Systems Constitutional: as per Subjective / HPI Cardiovascular: + edema; no chest pain, no dyspnea, no orthopnea and no palpit ations Physical Exam Constitutional: WD/WN, vitals as above no acute distress Eyes: PERRL, conjunctivae normal, anicteric sclerae ENMT: external ear and nose normal, oropharynx normal Neck: trachea midline, no thyromegaly Respiratory: normal respiratory effort; no respiratory distress Auscultation: no crackles and no wheezes Cardiovascular: Rate/Rhythm: regular rate and regular rhythm Extremities: + pedal edema and + edema Gastrointestinal (Abdomen): Percussion/Palpation: abdomen soft; abdomen nontender Neurologic: PERRL, EOMI, accommodation nl, no face palsy, no dysarthria Psychiatric: Orientation: alert and oriented x 3 Affect: + flat affect Insight: + limited insight Judgement: + poor judgement Results & Data Results & Data ([facility]) Vital Signs (Past 12 Hours) Vital Signs Temp Pulse Pulse Resp BP Pulse Ox 05/01/20 15:31 36.7 C 77 85 21 115/67 99 05/01/20 07:30 73 05/01/20 07:12 36.7 C 66 18 103/64 98
[2020-05-01] MEDS: POLYETHYLENE (MIRALAX) 17 GM PACK PO SCH (17:15)
[2020-05-01] MEDS: HYDROmorphone INJ 0.5 MG/0.5 ML SYR IV PRN (20:51)
[2020-05-01] MEDS: OLANZAPINE ZYDIS 5 MG ORALLY DIS. TAB PO SCH (20:52)
[2020-05-01] MEDS: ATORVASTATIN 40 MG TAB PO SCH (20:52)
[2020-05-02] MEDS: LEVOTHYROXINE SODIUM 50 MCG TABLET PO SCH (06:16)
[2020-05-02] MEDS: CLOPIDOGREL BISULFATE 75 MG TAB PO SCH (10:23)
[2020-05-02] MEDS: ENOXAPARIN INJ 40 MG/0.4 ML SYR SQ SCH (10:23)
[2020-05-02] MEDS: POLYETHYLENE (MIRALAX) 17 GM PACK PO SCH (10:23)
[2020-05-02] MEDS: POTASSIUM CHLORIDE 20 MEQ TABCR PO SCH ×2 (10:24→20:10)
[2020-05-02] MEDS: ASPIRIN 81 MG ECTAB PO SCH (10:24)
[2020-05-02] MEDS: SPIRONOLACTONE 25 MG TAB PO SCH (10:24)
[2020-05-02] MEDS: lisinopriL 5 MG TAB PO SCH (10:24)
[2020-05-02] MEDS: METOPROLOL SUCC 25MG EXT REL TAB PO SCH (10:25)
[2020-05-02] MEDS: FUROSEMIDE 40 MG TAB PO SCH (10:25)
--- NOTE | 2020-05-02 16:05 | Hospitalist Progress Note ---
Date of Service May 02, 2020 Assessment & Plan (1) Acute on chronic systolic (congestive) heart failure: (1) CHF exacerbation: volume status improved to baseline after diuresis with lasix presented Acute on chronic systolic congestive heart failure exacerbation-due to medication non compliance /does not take meds once discharged home 69-year-old male with history of ischemic cardiomyopathy, combined systolic and diastolic congestive heart failure, ejection fraction 15 to 20%, Valvular heart disease, chronic atrial fibrillation not on anticoagulation, paranoid schizophrenia, presenting with progressive lower extremity edema and shortness of breath. Did not take any medication once discharge from the hospital since January on Lasix 40 mg daily cardiology following Echo : showed mildly dilated left ventricle with severely reduced systolic function with ejection fraction 15 to 20%. Akinesis of the inferior lateral wall, basal anterolateral wall, basal to mid inferior, and basal inferior septal wall segment. Severe global hypokinesis Continue spironolactone 25mg daily pt is counselled repeatedly for taking meds at directed after discharge Mild troponin elevation Possible demand ischemia related to CHF exacerbation no complain of Chest pain SOB improved with diuresis Troponin 0.059 on admission, then dropped to Troponin 0.050 Continue aspirin, Plavix, metoprolol, atorvastatin pt is counselled for medication compliance Ischemic Cardiomyopathy Discussed with patient that he needs to be complaint with his med ECHO as above Continue Metoprolol, Lasix and Lisinopril ELEVATED TSH : pt has not been taking levothyroxine for months started on 50 mg daily pt is known to be non compliant of medications once discharged from hospital atrial fibrillation Rate control Normal sinus rhythm on EKG Not on anticoagulant due to non compliance continue metoprolol, Chronic right leg lymphedema No signs of cellulitis lower ext swelling improved with diursis Generalized Weakness PT/OT eval Fall precaution Paranoid schizophrenia Continues to refuse taking his meds Did not take any medication at home since last discharge since pt is so paranoid and believes someone changed his meds Psych on board pt is started on Zyprexa 5mg HS DVT prophylaxis Heparin subcutaneous CODE STATUS Full code Disposition expected to be discharged home in next 24-48 hrs when medically stable Admission and Anticipated Discharge Date Admission Date: April 24, 2020 Subjective sob , lower extremity edema has improved complains of nausea had multiple bowel movements today schedule dose of Milralax D/marni no cough , no fever or chills Physical Exam Constitutional: WD/WN, vitals as above no acute distress Eyes: PERRL, conjunctivae normal, anicteric sclerae ENMT: external ear and nose normal, oropharynx normal Neck: trachea midline, no thyromegaly Respiratory: normal respiratory effort; no respiratory distress Auscultation: no crackles and no wheezes Cardiovascular: Rate/Rhythm: regular rate and regular rhythm Gastrointestinal (Abdomen): Percussion/Palpation: abdomen soft; abdomen nontender Neurologic: PERRL, EOMI, accommodation nl, no face palsy, no dysarthria Psychiatric: Orientation: alert and oriented x 3 Affect: + flat affect Insight: + limited insight Judgement: + poor judgement Results & Data Results & Data ([facility]) Vital Signs (Past 12 Hours) Vital Signs Temp Pulse Resp BP Pulse Ox 05/02/20 06:58 36.3 C L 69 14 102/66 100
[2020-05-02] MEDS: HYDROmorphone INJ 0.5 MG/0.5 ML SYR IV PRN (20:06)
[2020-05-02] MEDS: ATORVASTATIN 40 MG TAB PO SCH (20:11)
[2020-05-02] MEDS: OLANZAPINE ZYDIS 5 MG ORALLY DIS. TAB PO SCH (20:11)
[2020-05-03] MEDS: LEVOTHYROXINE SODIUM 50 MCG TABLET PO SCH (05:13)
[2020-05-03] MEDS: LOPERAMIDE HCL 2 MG CAP PO PRN ×2 (05:28→15:17)
[2020-05-03] MEDS: HYDROmorphone INJ 0.5 MG/0.5 ML SYR IV PRN ×2 (05:30→18:38)
[2020-05-03] MEDS: CLOPIDOGREL BISULFATE 75 MG TAB PO SCH (09:11)
[2020-05-03] MEDS: ENOXAPARIN INJ 40 MG/0.4 ML SYR SQ SCH (09:11)
[2020-05-03] MEDS: FUROSEMIDE 40 MG TAB PO SCH (09:12)
[2020-05-03] MEDS: METOPROLOL SUCC 25MG EXT REL TAB PO SCH (09:12)
[2020-05-03] MEDS: POTASSIUM CHLORIDE 20 MEQ TABCR PO SCH ×2 (09:12→19:45)
[2020-05-03] MEDS: ASPIRIN 81 MG ECTAB PO SCH ×2 (09:13→09:19)
[2020-05-03] MEDS: SPIRONOLACTONE 25 MG TAB PO SCH (09:13)
[2020-05-03] MEDS: lisinopriL 5 MG TAB PO SCH (09:13)
[2020-05-03] MEDS: TRAMADOL HCL 50 MG TABLET PO PRN (10:55)
--- NOTE | 2020-05-03 17:37 | Hospitalist Progress Note ---
Date of Service May 03, 2020 Assessment & Plan (1) Acute on chronic systolic (congestive) heart failure: (1) CHF exacerbation: volume status improved to baseline after diuresis with lasix presented Acute on chronic systolic congestive heart failure exacerbation-due to medication non compliance /does not take meds once discharged home 69-year-old male with history of ischemic cardiomyopathy, combined systolic and diastolic congestive heart failure, ejection fraction 15 to 20%, Valvular heart disease, chronic atrial fibrillation not on anticoagulation, paranoid schizophrenia, presenting with progressive lower extremity edema and shortness of breath. Did not take any medication once discharge from the hospital since January on Lasix 40 mg daily cardiology following Echo : showed mildly dilated left ventricle with severely reduced systolic function with ejection fraction 15 to 20%. Akinesis of the inferior lateral wall, basal anterolateral wall, basal to mid inferior, and basal inferior septal wall segment. Severe global hypokinesis Continue spironolactone 25mg daily pt is counselled repeatedly for taking meds at directed after discharge Mild troponin elevation Possible demand ischemia related to CHF exacerbation no complain of Chest pain SOB improved with diuresis Troponin 0.059 on admission, then dropped to Troponin 0.050 Continue aspirin, Plavix, metoprolol, atorvastatin pt is counselled for medication compliance Ischemic Cardiomyopathy Discussed with patient that he needs to be complaint with his med ECHO as above Continue Metoprolol, Lasix and Lisinopril ELEVATED TSH : pt has not been taking levothyroxine for months started on 50 mg daily pt is known to be non compliant of medications once discharged from hospital atrial fibrillation Rate control Normal sinus rhythm on EKG Not on anticoagulant due to non compliance continue metoprolol, Chronic right leg lymphedema No signs of cellulitis lower ext swelling improved with diursis Generalized Weakness PT/OT eval Fall precaution Paranoid schizophrenia Continues to refuse taking his meds Did not take any medication at home since last discharge since pt is so paranoid and believes someone changed his meds Psych on board pt is started on Zyprexa 5mg HS DVT prophylaxis Heparin subcutaneous CODE STATUS Full code Disposition expected to be discharged home in next 24-48 hrs when medically stable Admission and Anticipated Discharge Date Admission Date: April 24, 2020 Subjective complain of feeling tired and weak improvement of diarrhea no nausea or vomiting Physical Exam Constitutional: WD/WN, vitals as above no acute distress Eyes: PERRL, conjunctivae normal, anicteric sclerae ENMT: external ear and nose normal, oropharynx normal Neck: trachea midline, no thyromegaly Respiratory: normal respiratory effort; no respiratory distress Auscultation: no crackles and no wheezes Cardiovascular: Rate/Rhythm: regular rate and regular rhythm Gastrointestinal (Abdomen): Percussion/Palpation: abdomen soft; abdomen nontender Neurologic: PERRL, EOMI, accommodation nl, no face palsy, no dysarthria Psychiatric: Orientation: alert and oriented x 3 Affect: + flat affect Insight: + limited insight Judgement: + poor judgement Results & Data Results & Data ([facility]) Vital Signs (Past 12 Hours) Vital Signs Temp Pulse Resp BP Pulse Ox 05/03/20 15:27 37.0 C 79 17 92/55 L 99 05/03/20 07:02 37 C 82 16 100/61 97
[2020-05-03] MEDS: OLANZAPINE ZYDIS 5 MG ORALLY DIS. TAB PO SCH (19:46)
[2020-05-03] MEDS: ATORVASTATIN 40 MG TAB PO SCH (19:46)
[2020-05-04] MEDS: LEVOTHYROXINE SODIUM 50 MCG TABLET PO SCH (05:56)
[2020-05-04] MEDS: METOPROLOL SUCC 25MG EXT REL TAB PO SCH (08:31)
[2020-05-04] MEDS: POTASSIUM CHLORIDE 20 MEQ TABCR PO SCH ×2 (08:32→20:26)
[2020-05-04] MEDS: lisinopriL 5 MG TAB PO SCH (08:32)
[2020-05-04] MEDS: FUROSEMIDE 40 MG TAB PO SCH (08:32)
[2020-05-04] MEDS: SPIRONOLACTONE 25 MG TAB PO SCH (08:32)
[2020-05-04] MEDS: CLOPIDOGREL BISULFATE 75 MG TAB PO SCH (08:32)
[2020-05-04] MEDS: ENOXAPARIN INJ 40 MG/0.4 ML SYR SQ SCH (08:33)
[2020-05-04] MEDS: ASPIRIN 81 MG ECTAB PO SCH (08:34)
[2020-05-04] MEDS: HYDROmorphone INJ 0.5 MG/0.5 ML SYR IV PRN ×2 (14:40→19:51)
[2020-05-04] MEDS: ONDANSETRON INJ 2 MG/ML 2 ML VIAL IV PRN (16:02)
--- NOTE | 2020-05-04 17:31 | Hospitalist Progress Note ---
Date of Service May 04, 2020 Assessment & Plan (1) Acute on chronic systolic (congestive) heart failure: (1) CHF exacerbation: volume status improved to baseline after diuresis with lasix presented Acute on chronic systolic congestive heart failure exacerbation-due to medication non compliance /does not take meds once discharged home 69-year-old male with history of ischemic cardiomyopathy, combined systolic and diastolic congestive heart failure, ejection fraction 15 to 20%, Valvular heart disease, chronic atrial fibrillation not on anticoagulation, paranoid schizophrenia, presenting with progressive lower extremity edema and shortness of breath. Did not take any medication once discharge from the hospital since January on Lasix 40 mg daily cardiology input appreciated Echo : showed mildly dilated left ventricle with severely reduced systolic function with ejection fraction 15 to 20%. Akinesis of the inferior lateral wall, basal anterolateral wall, basal to mid inferior, and basal inferior septal wall segment. Severe global hypokinesis Continue spironolactone 25mg daily pt is counselled repeatedly for taking meds at directed after discharge Mild troponin elevation Possible demand ischemia related to CHF exacerbation no complain of Chest pain SOB improved with diuresis Troponin 0.059 on admission, then dropped to Troponin 0.050 Continue aspirin, Plavix, metoprolol, atorvastatin pt is counselled for medication compliance Ischemic Cardiomyopathy Discussed with patient that he needs to be complaint with his med ECHO as above Continue Metoprolol, Lasix and Lisinopril ELEVATED TSH : pt has not been taking levothyroxine for months started on 50 mg daily pt is known to be non compliant of medications once discharged from hospital atrial fibrillation Rate control Normal sinus rhythm on EKG Not on anticoagulant due to non compliance continue metoprolol, Chronic right leg lymphedema No signs of cellulitis lower ext swelling improved with diursis Generalized Weakness PT/OT eval Fall precaution Paranoid schizophrenia Continues to refuse taking his meds Did not take any medication at home since last discharge since pt is so paranoid and believes someone changed his meds Psych on board pt is started on Zyprexa 5mg HS DVT prophylaxis Heparin subcutaneous CODE STATUS Full code Disposition expected to be discharged home in next 24-48 hrs when medically stable Admission and Anticipated Discharge Date Admission Date: April 24, 2020 Subjective diarrhea /loose bowel movements has resolved no fever or chills asking to increase frequency of dilaudid for abdominal pain /cramps no SOB lower ext swelling continues to improve no LOCK , no orthopnea Physical Exam Constitutional: WD/WN, vitals as above + ill appearing; no acute distress Eyes: + anicteric sclerae ENMT: external ear and nose normal, oropharynx normal Neck: trachea midline, no thyromegaly Cardiovascular: Rate/Rhythm: regular rate and regular rhythm Extremities: + pedal edema Gastrointestinal (Abdomen): Percussion/Palpation: abdomen soft; abdomen nontender Neurologic: PERRL, EOMI, accommodation nl, no face palsy, no dysarthria Psychiatric: A+Ox3, euthymic affect Insight: + poor insight Judgement: + poor judgement Results & Data Results & Data ([facility]) Vital Signs (Past 12 Hours) Vital Signs Temp Pulse Resp BP Pulse Ox 05/04/20 15:16 36.4 C L 79 16 104/70 92 05/04/20 07:22 36.3 C L 69 15 97/66 L 99
[2020-05-04] MEDS: OLANZAPINE ZYDIS 5 MG ORALLY DIS. TAB PO SCH (20:26)
[2020-05-04] MEDS: ATORVASTATIN 40 MG TAB PO SCH (20:56)
[2020-05-05] MEDS: ONDANSETRON INJ 2 MG/ML 2 ML VIAL IV PRN ×3 (00:26→20:00)
[2020-05-05] MEDS: HYDROmorphone INJ 0.5 MG/0.5 ML SYR IV PRN ×4 (00:27→21:06)
[2020-05-05] MEDS: LOPERAMIDE HCL 2 MG CAP PO PRN ×2 (00:27→15:18)
[2020-05-05] MEDS: LEVOTHYROXINE SODIUM 50 MCG TABLET PO SCH (05:50)
[2020-05-05] MEDS: POTASSIUM CHLORIDE 20 MEQ TABCR PO SCH ×2 (08:52→20:05)
[2020-05-05] MEDS: METOPROLOL SUCC 25MG EXT REL TAB PO SCH (08:52)
[2020-05-05] MEDS: ASPIRIN 81 MG ECTAB PO SCH (08:53)
[2020-05-05] MEDS: ENOXAPARIN INJ 40 MG/0.4 ML SYR SQ SCH (09:24)
[2020-05-05] MEDS: SPIRONOLACTONE 25 MG TAB PO SCH (10:08)
[2020-05-05] MEDS: CLOPIDOGREL BISULFATE 75 MG TAB PO SCH (10:08)
[2020-05-05] MEDS: FUROSEMIDE 40 MG TAB PO SCH (10:08)
[2020-05-05] MEDS: lisinopriL 5 MG TAB PO SCH (10:08)
--- NOTE | 2020-05-05 17:11 | Hospitalist Progress Note ---
Date of Service May 05, 2020 Assessment & Plan (1) Acute on chronic systolic (congestive) heart failure: (1) CHF exacerbation: volume status improved to baseline after diuresis with lasix presented Acute on chronic systolic congestive heart failure exacerbation-due to medication non compliance /does not take meds once discharged home 69-year-old male with history of ischemic cardiomyopathy, combined systolic and diastolic congestive heart failure, ejection fraction 15 to 20%, Valvular heart disease, chronic atrial fibrillation not on anticoagulation, paranoid schizophrenia, presenting with progressive lower extremity edema and shortness of breath. Did not take any medication once discharge from the hospital since January on Lasix 40 mg daily cardiology input appreciated Echo : showed mildly dilated left ventricle with severely reduced systolic function with ejection fraction 15 to 20%. Akinesis of the inferior lateral wall, basal anterolateral wall, basal to mid inferior, and basal inferior septal wall segment. Severe global hypokinesis Continue spironolactone 25mg daily pt is counselled repeatedly for taking meds at directed after discharge Mild troponin elevation Possible demand ischemia related to CHF exacerbation no complain of Chest pain SOB improved with diuresis Troponin 0.059 on admission, then dropped to Troponin 0.050 Continue aspirin, Plavix, metoprolol, atorvastatin pt is counselled for medication compliance Ischemic Cardiomyopathy Discussed with patient that he needs to be complaint with his med ECHO as above Continue Metoprolol, Lasix and Lisinopril ELEVATED TSH : pt has not been taking levothyroxine for months started on 50 mg daily pt is known to be non compliant of medications once discharged from hospital atrial fibrillation Rate control Normal sinus rhythm on EKG Not on anticoagulant due to non compliance continue metoprolol, Chronic right leg lymphedema No signs of cellulitis lower ext swelling improved with diursis Generalized Weakness PT/OT eval Fall precaution Paranoid schizophrenia Continues to refuse taking his meds Did not take any medication at home since last discharge since pt is so paranoid and believes someone changed his meds Psych on board pt is started on Zyprexa 5mg HS DVT prophylaxis Heparin subcutaneous CODE STATUS Full code Disposition expected to be discharged home in next 24-48 hrs when medically stable Admission and Anticipated Discharge Date Admission Date: April 24, 2020 Subjective diarrhea /loose bowel movements has resolved no fever or chills asking to increase frequency of dilaudid for abdominal pain /cramps no SOB lower ext swelling continues to improve no LOCK , no orthopnea Physical Exam Constitutional: WD/WN, vitals as above + ill appearing; no acute distress Eyes: PERRL, conjunctivae normal, anicteric sclerae + anicteric sclerae ENMT: external ear and nose normal, oropharynx normal Neck: trachea midline, no thyromegaly Respiratory: normal respiratory effort; no respiratory distress Auscultation: no crackles and no wheezes Cardiovascular: Rate/Rhythm: regular rate and regular rhythm Extremities: + pedal edema and + edema Gastrointestinal (Abdomen): Percussion/Palpation: abdomen soft; abdomen nontender Neurologic: PERRL, EOMI, accommodation nl, no face palsy, no dysarthria Psychiatric: A+Ox3, euthymic affect Orientation: alert and oriented x 3 Affect: + flat affect Insight: + limited insight and + poor insight Judgement: + poor judgement Results & Data Results & Data ([facility]) Vital Signs (Past 12 Hours) Vital Signs Temp Pulse Resp BP Pulse Ox 05/05/20 15:01 36.5 C 69 16 111/72 95 05/05/20 07:07 36.3 C L 69 16 92/59 L 97
[2020-05-05] MEDS: TRAMADOL HCL 50 MG TABLET PO PRN (18:41)
[2020-05-05] MEDS: OLANZAPINE ZYDIS 5 MG ORALLY DIS. TAB PO SCH (20:05)
[2020-05-05] MEDS: ATORVASTATIN 40 MG TAB PO SCH ×2 (20:06→21:05)
[2020-05-06] MEDS: HYDROmorphone INJ 0.5 MG/0.5 ML SYR IV PRN (02:11)
[2020-05-06] MEDS: LOPERAMIDE HCL 2 MG CAP PO PRN (02:12)
[2020-05-06] MEDS: ONDANSETRON INJ 2 MG/ML 2 ML VIAL IV PRN (02:12)
[2020-05-06] MEDS: LEVOTHYROXINE SODIUM 50 MCG TABLET PO SCH (06:41)
[2020-05-06] MEDS: ASPIRIN 81 MG ECTAB PO SCH (09:21)
[2020-05-06] MEDS: POTASSIUM CHLORIDE 20 MEQ TABCR PO SCH ×2 (09:21→22:01)
[2020-05-06] MEDS: SPIRONOLACTONE 25 MG TAB PO SCH (09:21)
[2020-05-06] MEDS: ENOXAPARIN INJ 40 MG/0.4 ML SYR SQ SCH (09:22)
[2020-05-06] MEDS: FUROSEMIDE 40 MG TAB PO SCH (09:26)
[2020-05-06] MEDS: METOPROLOL SUCC 25MG EXT REL TAB PO SCH (09:26)
[2020-05-06] MEDS: CLOPIDOGREL BISULFATE 75 MG TAB PO SCH (09:26)
[2020-05-06] MEDS: lisinopriL 5 MG TAB PO SCH (09:27)
--- NOTE | 2020-05-06 15:08 | Cardiology Progress Note ---
Date of Service May 06, 2020 Assessment & Plan (1) Acute on chronic systolic (congestive) heart failure: (2) Noncompliance with medications: (3) Ischemic cardiomyopathy: (4) Tricuspid regurgitation: (5) CAD (coronary artery disease): (6) Paranoid schizophrenia: (7) Paroxysmal atrial fibrillation: (8) Mitral regurgitation: (9) Hypertension: ASSESSMENT/PLAN: 1. Acute on chronic systolic CHF: He appears euvolemic. He has been compliant with his medical therapy here in the hospital currently. I think we will continue on his current medical regimen which includes furosemide, lisinopril and metoprolol. 2. Ischemic cardiomyopathy: Continue Lasix, spironolactone, lisinopril and metoprolol 3. CAD s/p Cx PCI: Has multivessel CAD. No current symptoms suggestive of ischemia. Continue aspirin and Plavix. Continue beta-polo. Continue high- dose atorvastatin 4. Medication noncompliance: This appears to be the major barrier to improvement in care and reducing Re admissions. 5. Hypertension: Good control and he is taking his medications. 6. Paroxysmal atrial fibrillation: He is in sinus rhythm currently. Currently off telemetry. Continue metoprolol. Not on anticoagulation due to history of noncompliance. 7. Mitral regurgitation: Non severe. No further evaluation necessary at this time. 8. Tricuspid regurgitation: Non severe. This can be followed over time. 9. Paranoid schizophrenia: Psychiatry has prescribed Zyprexa. Overall he is doing much better from a cardiac standpoint. He seems to be well compensated although likely has an element of deconditioning and symptoms associated with his severe cardiomyopathy. Hopefully he will continue his medication compliance at the time of discharge. I do not have any further recommendations at this point. Cardiology will sign off currently. Please feel free to call with additional questions or concerns prior to discharge. Admission and Anticipated Discharge Date Admission Date: April 24, 2020 Subjective This afternoon the patient's main concern was diarrhea, frequent bowel movements and abdominal discomfort. He just returned from the bathroom and was notably dyspneic. He has had difficulty with that type of activity for some time. Moderate dyspnea but with fatigue as well. He claims have been ambulatory with physical therapy using walk around the halls. He states that was relatively easier but did have an element of dyspnea. Often times with walking he reports have any use the restroom almost immediately. Review of Systems Review of Systems: Per HPI Physical Exam Physical Exam: Gen.: No acute distress. Alert. HEENT: Anicteric sclera. Neck: Mild hepatic jugular reflux. No obvious JVD elevation. Cardiac: Regular. Normal S1-S2. No audible murmurs, rubs, or gallops. Pulmonary: Generally clear lungs. Normal respiratory effort. No expiratory wheezing. Abdomen: Soft, nontender, nondistended, with normoactive bowel sounds. No bruits noted. Extremities: 2+ radial pulses bilaterally. the left. Right leg is bandaged with evidence of chronic lymphedema. No cyanosis. Results & Data ([facility]) Vital Signs (Past 12 Hours) Vital Signs Temp Pulse Resp BP Pulse Ox 05/06/20 09:24 70 114/71 05/06/20 08:03 36.4 C L 69 16 98/61 L 100 PG Care Time/CCT Total # of Minutes Spent Total Time Spent with Patient: Total time spent is greater than 50% in coordination of care (as documented) at patient's floor/unit and/or counseling patient: Coding Level of Care Code 60889 Subseq Hosp Care Lvl 3 Diagnoses Acute on chronic systolic (congestive) heart failure I50.23 Noncompliance with medications Z91.14 Ischemic cardiomyopathy I25.5 Tricuspid regurgitation I07.1 CAD (coronary artery disease) I25.10 Paranoid schizophrenia F20.0 Paroxysmal atrial fibrillation I48.0 Mitral regurgitation I34.0 Hypertension I10
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
[2020-05-06] MEDS: TRAMADOL HCL 50 MG TABLET PO PRN (21:31)
[2020-05-06] MEDS: ATORVASTATIN 40 MG TAB PO SCH (22:01)
[2020-05-06] MEDS: OLANZAPINE ZYDIS 5 MG ORALLY DIS. TAB PO SCH (22:02)
[2020-05-07] MEDS: ONDANSETRON INJ 2 MG/ML 2 ML VIAL IV PRN (03:25)
[2020-05-07] MEDS: TRAMADOL HCL 50 MG TABLET PO PRN ×2 (03:26→17:48)
[2020-05-07] MEDS: LEVOTHYROXINE SODIUM 50 MCG TABLET PO SCH (05:55)
[2020-05-07] MEDS: METOPROLOL SUCC 25MG EXT REL TAB PO SCH (08:58)
[2020-05-07] MEDS: POTASSIUM CHLORIDE 20 MEQ TABCR PO SCH ×2 (08:59→21:57)
[2020-05-07] MEDS: SPIRONOLACTONE 25 MG TAB PO SCH (08:59)
[2020-05-07] MEDS: ENOXAPARIN INJ 40 MG/0.4 ML SYR SQ SCH (08:59)
[2020-05-07] MEDS: FUROSEMIDE 40 MG TAB PO SCH (08:59)
[2020-05-07] MEDS: ASPIRIN 81 MG ECTAB PO SCH (08:59)
[2020-05-07] MEDS: lisinopriL 5 MG TAB PO SCH (09:00)
[2020-05-07] MEDS: CLOPIDOGREL BISULFATE 75 MG TAB PO SCH (09:00)
--- NOTE | 2020-05-07 20:11 | Hospitalist Progress Note ---
Date of Service May 07, 2020 Assessment & Plan (1) Acute on chronic systolic (congestive) heart failure: 69-year-old male with history of ischemic cardiomyopathy, combined systolic and diastolic congestive heart failure, ejection fraction 15 to 20%, Valvular heart disease, chronic atrial fibrillation not on anticoagulation, paranoid schizophrenia, presenting with progressive lower extremity edema and shortness of breath. Secondary to poor adherence to medication regimen Does not take any medication once discharge from the hospital since January CXR on admission showed cardiomegaly with prominence of the central pulmonary vasculature. Right larger than left pleural effusions with bibasilar consolidation. Lasix 80 mg IV at the ER, then started on Lasix 40mg IV BID Repeat CXR showed stable components of congestive failure. Unchanged right pleural effusion. Cardiology on board Continued fluid restriction 1500 mL's per day, 2 g sodium diet Echo done today showed mildly dilated left ventricle with severely reduced systolic function with ejection fraction 15 to 20%. Akinesis of the inferior lateral wall, basal anterolateral wall, basal to mid inferior, and basal inferior septal wall segment. Severe global hypokinesis IV lasix transition to PO lasix 40mg daily Continue spironolactone 25mg daily Clinically improves significantly Ok from cardiology standpoint to discharge home Right Pleural Effusion CXR on admission showed Right larger than left pleural effusions with bibasilar consolidation Diuresis well with IV lasix saturated well on RA Mild troponin elevation Possible related to CHF exacerbation Troponin 0.059 on admission, then dropped to Troponin 0.050 EKG showed nonspecific T wave changes in the lateral leads Non compliant with medication Continue aspirin, Plavix, metoprolol, atorvastatin Ischemic Cardiomyopathy Discussed with patient that he needs to be complaint with his med ECHO with EF 15 to 20 % Continue Metoprolol, Lasix and Lisinopril Defer to his cardiology to address for ICD placement, not a good candidate due to medication noncompliant and paranaoid Hypokalemia Due to IV lasix Potassium 4.1 on 04/30 Continue Oxygen supplement Check BMP to monitor electrolytes History of chronic atrial fibrillation Rate control Normal sinus rhythm on EKG Not on anticoagulant due to his non compliant continue metoprolol, and aspirin, Plavix Chronic right leg lymphedema No signs of cellulitis at this time, continue to monitor Continue daily wound care Generalized Weakness PT/OT eval Fall precaution Hypothyroidism TSH 10.5 He has not been taking the levothyroxine for months Levothyroxine resumes, will continue 50 mg daily pt is known to be non compliant of medications once discharged from hospital Check TSH in 4 to 6 weeks Paranoid schizophrenia Continue refusing taking his meds Does not take any medication at home once discharge since pt is so paranoid and believes someone changed his meds He mentioned to the millinery salesperson that a white force that attacked him Psych on board Continue Zyprexa 5mg HS DVT prophylaxis Heparin subcutaneous CODE STATUS Full code Disposition Possible discharge home tomorrow Admission and Anticipated Discharge Date Admission Date: April 24, 2020 Subjective Pt was seen and examined. Lying in bed with no distress Pt said that he feels alittle tired He said that he is worried to go home because he does not have any groceries He refused to take his medication today Denies any chest pain, palpitation and SOB Physical Exam Physical Exam: General- No acute distress Head- atraumatic Eyes- PERRL, EOMI, ENT- Poor dentition Neck- supple, no JVD Lungs- clear to auscultation Heart- regular rhythm; +murmur Abdomen- normal bowel sounds, soft, nontender Extremities- no calf tenderness, bilateral LE swelling RLE greater than the left improved Neuro- alert, oriented x 3; PERRL, EOMI; no facial palsy; no dysarthria Skin- warm & dry Results & Data Results & Data ([facility]) Vital Signs (Past 12 Hours) Vital Signs Temp Pulse Resp BP BP Pulse Ox 05/07/20 15:30 36.4 C L 71 14 80/52 L 96 05/07/20 08:55 67 97/64 L
[2020-05-07] MEDS: ATORVASTATIN 40 MG TAB PO SCH (21:58)
[2020-05-07] MEDS: OLANZAPINE ZYDIS 5 MG ORALLY DIS. TAB PO SCH (21:58)
[2020-05-08] MEDS: LEVOTHYROXINE SODIUM 50 MCG TABLET PO SCH (06:20)
[2020-05-08 06:38] LABS: BUN Creatinine Ratio 20.2 (10-20); Calcium 9.5 mg/dl (8.5-10.1); Creatinine Clr Calc Pharmacy 11.3 ml/min; Est GFR (African American) 10.2; Est GFR (Non-African American) 8.8; Potassium 5.5 mmol/L (3.5-5.1)
--- NOTE | 2020-05-08 06:40 | Communication Note ---
Date of Service: May 08, 2020 Made aware by RN of [email or web address] lab work. Serum potassium 5.5 Serum creatinine 6.02 Anion gap 12 CO2 12 SBP 90s No complaints patient without new complaints. CXR as per my interpretation cardiomegaly EKG pending AP ARF, Hyperkalemia, AGMA Likely ATN Secondary to inpatient medications, overdiuresis Med telemetry transfer Follow EKG, may need calcium gluconate for hyperkalemia IV Insulin, bicarb stat Baseline UA, gentle IVF Appropriate to hold Lasix, spironolactone, lisinopril, spironolactone, potassium supplements for now Repeat renal function after 4 hours. Nephrology consult RE ARF Will relay to AM provider.
[2020-05-08] MEDS ORDERED: ALBUMIN 25% 50 ML IV ONE (06:57)
[2020-05-08] MEDS ORDERED: SODIUM BICARB 8.4% INJ 50 MEQ/50 ML SYR IV STA (06:59)
[2020-05-08] MEDS ORDERED: DEXTROSE 50% 50 ML SYRINGE IV ONE ×3 (07:01→16:50)
[2020-05-08] MEDS ORDERED: INSULIN HUMAN REGULAR PER UNIT 5 UNITS in SYRINGE 4.95 ML IV STA (07:01)
[2020-05-08] MEDS ORDERED: SODIUM CHLORIDE 0.9% 500 ML IV ONE (07:03)
--- NOTE | 2020-05-08 07:11 | XRay Report ---
XR chest 1V portable HISTORY: 70 years-old Male renal failure acute renal failure COMPARISON: Chest radiograph 04/25/2020 TECHNIQUE: Portable AP view of the chest FINDINGS: Cardiac silhouette is enlarged, unchanged. There is resolution of the previously described pulmonary edema and pleural effusions. Mild linear subsegmental atelectasis/scarring of the left lung base late rally. There is no pneumothorax, pleural effusion or airspace consolidation typical for pneumonia. De generative changes of the spine with mild convex left curvature of the lower thoracic spine. IMPRESSION: Cardiomegaly without acute process. ACT 112: Negative or not required by law. The above report was generated using voice recognition software. It may contain grammatical, syntax o r spelling errors. Electronically signed by: Shaun Dorantes M.D. 05/08/2020 7:09 AM
[2020-05-08] MEDS: METOPROLOL SUCC 25MG EXT REL TAB PO SCH (08:45)
[2020-05-08] MEDS: CLOPIDOGREL BISULFATE 75 MG TAB PO SCH (08:46)
[2020-05-08] MEDS: ASPIRIN 81 MG ECTAB PO SCH (08:46)
--- NOTE | 2020-05-08 11:53 | Nephrology Consultation ---
Date of Consultation May 08, 2020 Assessment & Plan (1) Hyperkalemia: Potassium 5.5 on May 08 in the setting of severe acute renal failure and had occasions such as potassium supplementation, spironolactone, lisinopril. All of these medications are now appropriately on hold. Patient is a ppropriately on low-potassium diet which should continue. Follow-up repeat chemistry ordered for 11 AM>> repeat K is 5.8 >> NS changed to bicarb gtt; gave 10 units IV insulin and 2 amps dextrose; gave dose of lasix as well 40 mg IV x 1; recheck ordered for 2099 bmp -Continue to hold above-mentioned medications Will coordinate w/ hospitalist. Present on Admission?: No (2) Acute kidney failure: Baseline creatinine 0.9-1.1. Was at 1.2 on most recent labs April 30. Next labs drawn May 08 show creatinine 6, BUN 122, bicarb 12, potassium 5.5. on recheck later am creatinine up to 6.2 -Follow-up pending repeat chemistry and ordered urinalysis -Continue to hold medications as discussed above; in addition hold Lasix -Changed NS as above -No indication at this time for acute dialysis; he would be a very poor ca ndidate for this should the need arise due to complex heart failure and challenges with consenting to adhering to medical regimen (3) Chronic systolic CHF (congestive heart failure): Heart failure medications currently on hold and he is receiving gentle flu id resuscitation. -Monitor closely Present on Admission?: Yes (4) Leg edema: better than baseline; may be come challenging as we give IVF and hold most diuretics Present on Admission?: Yes History of Present Illness Reason for Consultation: Acute renal failure Requesting Physician: Dr. Barton Attending Physician: Funmi Valentine MD History of Present Illness 70-year-old male whom I am asked to evaluate for acute renal insufficiency was admitted here April 24 for management of decompensated combined systolic and diastolic heart failure. Past medical history includes ischemic cardiomyopathy with an ejection fraction of 15 to 20%, valvular heart disease, chronic atrial fibrillation not anticoagulated, paranoid schizophrenia, chronic right lower extremity lymphedema. He has frequent admissions for volume overload, most recently January 2020. Noted on labs this morning to have a potassium of 5.5, creatinine 6, BUN 122, with a bicarb of 12. His baseline creatinine is 0.9-1.1. He received IV insulin 5 units, and an amp of sodium bicarbonate. His morning potassium supplements, spironolactone, Lasix, lisinopril were held. Normal saline was started at 75 mL hourly; he also had 4.5 g albumin IV. He was moved from the psych unit to a medical floor. Daily standing weights have not been recorded recently. He is on room air with systolic pressures in the low 90s, consistent with previous exams. His creatinine has not been checked since April 30; it was 1.2 at that time. Chest x-ray shows resolution of pulmonary edema and pleural effusions noted at admission. He feels generally well and is eating. Allergies Allergy/AdvReac Type Severity Reaction Status Date / Time horse dander Allergy Unknown HORSE HAIR Verified 04/24/20 16:49 tetanus toxoid, adsorbed Allergy Unknown Unknown Verified 04/24/20 16:49 Home Medications Home Medications Medication Instructions Recorded Confirmed Type nitroglycerin [Nitrostat] 0.4 mg SUBLINGUAL PRN PRN 30 Days 12/13/19 04/24/20 Rx #30 tab aspirin [Ecotrin Low Strength] 81 mg PO QAM 30 Days #30 tab 02/04/20 04/24/20 Rx atorvastatin [Lipitor] 80 mg PO HS 30 Days #30 tab 02/04/20 04/24/20 Rx clopidogrel [Plavix] 75 mg PO DAILY #30 tab 02/04/20 04/24/20 Rx furosemide [Lasix] 40 mg PO DAILY 30 Days #30 tab 02/04/20 04/24/20 Rx lisinopril [Zestril] 5 mg PO QAM 30 Days #30 tab 02/04/20 04/24/20 Rx metoprolol succinate 12.5 mg PO DAILY 30 Days #15 tab 02/04/20 04/24/20 Rx levothyroxine [Synthroid] 50 mcg PO DAILYBB 30 Days #30 tab 05/03/20 Rx olanzapine 5 mg PO HS 30 Days #30 tab 05/03/20 Rx potassium chloride [Klor-Con M20] 20 meq PO BID 30 Days #60 tab 05/03/20 Rx spironolactone 25 mg PO QAM 30 Days #30 tab 05/03/20 Rx Patient History Medical History CAD (coronary artery disease) Cholecystitis, acute Chronic systolic CHF (congestive heart failure) (Acute) History of DVT (deep vein thrombosis) History of pancreatitis History of testicular cancer History of tobacco abuse Homelessness HTN (hypertension) (Chronic) Hypertension Hyperthyroidism Ischemic cardiomyopathy Lymphedema of right lower extremity (Acute) Mitral regurgitation Pleural effusion Schizophrenia (Acute) STEMI (ST elevation myocardial infarction) Tricuspid regurgitation Surgical History Hx of heart artery stent Status post cardiac catheterization Family History Other Unknown family medical history Social History Preferred Language: Congolese Communication Ability: Effective Party Host/Hostess Required: No Beliefs That Will Affect Care: None marital status: Current Living Situation: Alone Current Living Situation Comment: apartment Other Information That Helps Us Care for You: No Feels Safe at Home: Yes Smoking Status: Former smoker Number of Years Since Quit: 10 ; Second Hand Exposure: No ; Hx Alcohol Use: Yes Alcohol type: hard liquor Hx Substance Use: No Review of Systems Review of Systems: All systems reviewed & are unremarkable except as noted in HPI & below Respiratory: no cough and no dyspnea Cardiovascular: + edema Gastrointestinal: no abdominal pain Genitourinary: + urinary frequency Psychiatric: + anxiety and + difficulty concentrating Physical Exam Constitutional: well developed, + cachectic, + behavioral limitations and + disheveled Eyes: EOM intact bilaterally ENMT: Ears: no external ear abnormality Nose: no external nose abnormality Mouth: + dry oral mucous membranes and + dentition abnormality Neck: no nuchal rigidity Respiratory: normal respiratory effort Auscultation: lungs clear to auscultation bilaterally and + diminished lung sounds Cardiovascular: Rate/Rhythm: regular rate and regular rhythm Heart Sounds: + murmur Extremities: + edema (RLE indurated) Gastrointestinal (Abdomen): Inspection/Auscultation: normal bowel sounds Percussion/Palpation: abdomen soft; abdomen nontender Musculoskeletal: Extremities: strength 5/5 throughout Skin: no rashes, warm and dry Neurologic: king, fluent speech, no tremor Psychiatric: Orientation: alert, oriented to person, oriented to place and + guarded Eye Contact: + fair eye contact Affect: + anxious affect Genitourinary: diaper/no bermudez Results & Data Vital Signs (Past 12 Hours) Vital Signs Temp Pulse Pulse Resp BP Pulse Ox 05/08/20 10:15 36.4 C L 88 94/60 L 95 05/08/20 09:30 69 92/57 L 05/08/20 06:45 36.5 C 66 16 93/57 L 100 Laboratory Results 04/24/20 17:07 05/08/20 05:09 Diagnostic Findings Chest x-ray: Cardiomegaly without acute process
[2020-05-08 11:55] LABS: Base Excess VBG -10.8 mEq/L; HCO3 VBG 15 mmol/L; PCO2 VBG 35 mmHg (38-50); PO2 VBG 26 mmHg; pH VBG 7.26 (7.36-7.41)
[2020-05-08 11:57] LABS: Oxygen Saturation VBG < 60.0 %
[2020-05-08] MEDS: PROMETHAZINE HCL 12.5 MG in SODIUM CHLORIDE 0.9% 50 ML IV PRN (12:22)
[2020-05-08 12:31] LABS: BUN Creatinine Ratio 18.5 (10-20); Calcium 9.4 mg/dl (8.5-10.1); Creatinine Clr Calc Pharmacy 11.1 ml/min; Est GFR (Non-African American) 8.6; Potassium 5.8 mmol/L (3.5-5.1)
[2020-05-08] MEDS ORDERED: DEXTROSE 50% 50 ML SYRINGE IV STA (14:03)
[2020-05-08] MEDS ORDERED: FUROSEMIDE 40 MG in SYRINGE 0 ML IV STA (14:18)
[2020-05-08] MEDS ORDERED: INSULIN HUMAN REGULAR PER UNIT 10 UNITS in SYRINGE 9.9 ML IV STA (14:19)
[2020-05-08] MEDS: SODIUM BICARBONATE 8.4% 150 MEQ in DEXTROSE 5% 1,000 ML IV SCH (14:40)
[2020-05-08] MEDS: HEPARIN SOD 5,000 UNIT/0.5 ML VIAL SQ SCH ×3 (15:19→21:35)
[2020-05-08] MEDS: HYDROmorphone INJ 0.5 MG/0.5 ML SYR IV PRN ×2 (16:39→21:55)
--- NOTE | 2020-05-08 19:17 | Hospitalist Progress Note ---
Date of Service May 08, 2020 Assessment & Plan (1) Acute on chronic systolic (congestive) heart failure: 69-year-old male with history of ischemic cardiomyopathy, combined systolic and diastolic congestive heart failure, ejection fraction 15 to 20%, Valvular heart disease, chronic atrial fibrillation not on anticoagulation, paranoid schizophrenia, presenting with progressive lower extremity edema and shortness of breath. Secondary to poor adherence to medication regimen Does not take any medication once discharge from the hospital since January CXR on admission showed cardiomegaly with prominence of the central pulmonary vasculature. Right larger than left pleural effusions with bibasilar consolidation. Lasix 80 mg IV at the ER, then started on Lasix 40mg IV BID Repeat CXR showed stable components of congestive failure. Unchanged right pleural effusion. Cardiology on board Continued fluid restriction 1500 mL's per day, 2 g sodium diet Echo done today showed mildly dilated left ventricle with severely reduced systolic function with ejection fraction 15 to 20%. Akinesis of the inferior lateral wall, basal anterolateral wall, basal to mid inferior, and basal inferior septal wall segment. Severe global hypokinesis IV lasix transition to PO lasix 40mg daily Continue spironolactone 25mg daily Clinically improves significantly Ok from cardiology standpoint to discharge home 05/08/20 Diuretic held due to acute renal failure with creatinine 6 Case discussed with cardiology and agreed to continue to hold Lasix and spironolactone Will monitor closely for sign of volume overload Acute renal failure Mostly due to diuretics Creatinine increased to 6.13 Nephrology on board Continue IVF Continue to hold lasix, spironolactone and lisinopril Continue monitor BMP Hyperkalemia Potassium 5.8 today Nephrology on board Received 10 units IV insulin, 2 amps dextrose and lasix 40mg IV given by nephro IVF changed to Dextrose with bicarb at 80cc Check BMP at 2100 Follow up a low K diet Continue monitor closely Right Pleural Effusion CXR on admission showed Right larger than left pleural effusions with bibasilar consolidation Repeat CXR on 05/08 showed resolution of the previously described pulmonary edema and pleural effusions. Continue to hold spironolactone and Lasix due to LAUREN saturated well on RA Mild troponin elevation Possible related to CHF exacerbation Troponin 0.059 on admission, then dropped to Troponin 0.050 EKG showed nonspecific T wave changes in the lateral leads Non compliant with medication Continue aspirin, Plavix, metoprolol, atorvastatin Ischemic Cardiomyopathy Discussed with patient that he needs to be complaint with his med ECHO with EF 15 to 20 % Continue Metoprolol, Lasix and Lisinopril on hold Defer to his cardiology to address for ICD placement, not a good candidate due to medication noncompliant and paranaoid History of chronic atrial fibrillation Rate control Normal sinus rhythm on EKG Not on anticoagulant due to his non compliant continue metoprolol, and aspirin, Plavix Chronic right leg lymphedema No signs of cellulitis at this time, continue to monitor Continue daily wound care Generalized Weakness PT/OT eval Fall precaution Hypothyroidism TSH 10.5 He has not been taking the levothyroxine for months Levothyroxine resumes, will continue 50 mg daily pt is known to be non compliant of medications once discharged from hospital Check TSH in 4 to 6 weeks Paranoid schizophrenia Continue refusing taking his meds Does not take any medication at home once discharge since pt is so paranoid and believes someone changed his meds He mentioned to the retail furniture sales that a white force that attacked him Psych on board Continue Zyprexa 5mg HS DVT prophylaxis Heparin subcutaneous CODE STATUS Full code Disposition Will discharge once medically stable Admission and Anticipated Discharge Date Admission Date: April 24, 2020 Subjective Pt was seen and examined Lying in bed with no distress Currently denies any chest pain, palpitation and SOB Physical Exam Physical Exam: General- No acute distress Head- atraumatic Eyes- PERRL, EOMI, ENT- Poor dentition Neck- supple, no JVD Lungs- clear to auscultation Heart- regular rhythm; +murmur Abdomen- normal bowel sounds, soft, nontender Extremities- no calf tenderness, bilateral LE swelling RLE greater than the left improved Neuro- alert, oriented x 3; PERRL, EOMI; no facial palsy; no dysarthria Skin- warm & dry Results & Data Results & Data ([facility]) Vital Signs (Past 12 Hours) Vital Signs Temp Pulse Pulse Resp BP Pulse Ox 05/08/20 15:20 36.3 C L 75 20 95/58 L 99 05/08/20 11:38 36.3 C L 67 18 91/49 L 99 05/08/20 10:15 36.4 C L 88 94/60 L 95 05/08/20 09:30 69 92/57 L
--- NOTE | 2020-05-08 19:18 | Electrocardiogram Report ---
Test Reason : Blood Pressure : / mmHG Vent. Rate : 071 BPM Atrial Rate : 071 BPM P-R Int : 184 ms QRS Dur : 118 ms QT Int : 406 ms P-R-T Axes : 064 078 082 degrees QTc Int : 441 ms Normal sinus rhythm Minimal voltage criteria for LVH, may be normal variant Anterior infarct (cited on or before 24-APR-2020) Abnormal ECG When compared with ECG of 24-APR-2020 15:16, ST elevation now present in Lateral leads Nonspecific T wave abnormality no longer evident in Inferior leads Nonspecific T wave abnormality no longer evident in Lateral leads Confirmed by Oni Carter ([id number]) on 05/08/2020 7:18:24 PM Referred By: REFERRED SELF Confirmed By:Sawyer Carter
[2020-05-08] MEDS: OLANZAPINE ZYDIS 5 MG ORALLY DIS. TAB PO SCH (21:35)
[2020-05-08] MEDS: ATORVASTATIN 40 MG TAB PO SCH (21:40)
[2020-05-08 23:39] LABS: BUN Creatinine Ratio 19.9 (10-20); Calcium 8.8 mg/dl (8.5-10.1); Creatinine Clr Calc Pharmacy 10.5 ml/min; Est GFR (African American) 9.3; Potassium 4.9 mmol/L (3.5-5.1)
[2020-05-09] MEDS: SODIUM BICARBONATE 8.4% 150 MEQ in DEXTROSE 5% 1,000 ML IV SCH ×2 (05:07→18:57)
[2020-05-09] MEDS: LEVOTHYROXINE SODIUM 50 MCG TABLET PO SCH (05:52)
[2020-05-09] MEDS: HEPARIN SOD 5,000 UNIT/0.5 ML VIAL SQ SCH ×3 (05:52→20:53)
[2020-05-09 07:06] LABS: BUN Creatinine Ratio 18.9 (10-20); Calcium 8.7 mg/dl (8.5-10.1); Creatinine Clr Calc Pharmacy 7.7 ml/min; Est GFR (African American) 9.3; Potassium 4.2 mmol/L (3.5-5.1)
[2020-05-09] MEDS: METOPROLOL SUCC 25MG EXT REL TAB PO SCH (07:45)
[2020-05-09] MEDS: CLOPIDOGREL BISULFATE 75 MG TAB PO SCH (07:45)
[2020-05-09] MEDS: ASPIRIN 81 MG ECTAB PO SCH (07:45)
--- NOTE | 2020-05-09 09:16 | Nephrology Progress Note ---
Date of Service May 09, 2020 Assessment & Plan (1) Hyperkalemia: K normalized on bicarb gtt. -cont to hold lisinopril, K suppls, spironolactone. Potassium 5.5 >5.8 on May 08 in the setting of severe acute renal failure and had occasions such as potassium supplementation, spironolactone, lisinopril. All of these medications are now appropriately on hold. Patient is appropriately on low-potassium diet which should continue. (2) Acute kidney failure: Baseline creatinine 0.9-1.1. Was at 1.2 on most recent labs April 30. Next labs drawn May 08 show creatinine 6, BUN 122, bicarb 12, potassium 5.5. BUN unchanged, creat up to 6.4 today. -clarify how much diarrhea >> seems like a lot/ may have a role -continue cautious bicarb gtt same rate -increase may reflect worsening HF, diarrhea, or/and obligate lasix given yesterday -daily bmp -No indication at this time for acute dialysis; he would be a very poor candidate for this should the need arise due to complex heart failure and challenges with consenting to adhering to medical regimen (3) Chronic systolic CHF (congestive heart failure): Heart failure medications currently on hold and he is receiving gentle fluid resuscitation. -Monitor closely (4) Leg edema: better than baseline; may be come challenging as we give IVF and hold most diuretics Admission and Anticipated Discharge Date Admission Date: April 24, 2020 Subjective hard to interact w/ today b/c states he's very tired and very cold; denies musculoskeletal pain, worse sob, worse edema; ++ diarrhea (5BM today so far) Review of Systems Review of Systems: All systems reviewed & are unremarkable except as noted in HPI & below Physical Exam Constitutional: well developed, + cachectic, + behavioral limitations and + disheveled on RA, lying in bed eyes closed and minimally interactive but wakens fully Eyes: EOM intact bilaterally ENMT: Ears: no external ear abnormality Nose: no external nose abnormality Mouth: + dry oral mucous membranes and + dentition abnormality Neck: no nuchal rigidity Respiratory: normal respiratory effort Auscultation: lungs clear to auscultation bilaterally and + diminished lung sounds Cardiovascular: Rate/Rhythm: regular rate and regular rhythm Heart Sounds: + murmur Extremities: + edema (RLE indurated) Gastrointestinal (Abdomen): Inspection/Auscultation: normal bowel sounds Percussion/Palpation: abdomen soft; abdomen nontender Musculoskeletal: Extremities: strength 5/5 throughout Skin: no rashes, warm and dry + lesion (posterior R calf) Psychiatric: Orientation: alert, oriented to person, oriented to place and + guarded Eye Contact: + poor eye contact Affect: + flat affect Results & Data ([facility]) Vital Signs (Past 12 Hours) Vital Signs Temp Pulse Pulse Resp BP BP Pulse Ox 05/09/20 07:48 36.5 C 78 18 87/57 L 100 05/09/20 07:44 36.6 C 94 H 20 107/69 97 05/09/20 03:11 36.6 C 71 18 91/52 L 98 05/09/20 00:04 36.6 C 80 20 97/61 L 97 Laboratory Results 04/24/20 17:07 05/09/20 05:24
--- NOTE | 2020-05-09 18:06 | Hospitalist Progress Note ---
Date of Service May 09, 2020 Assessment & Plan (1) Acute on chronic systolic (congestive) heart failure: 69-year-old male with history of ischemic cardiomyopathy, combined systolic and diastolic congestive heart failure, ejection fraction 15 to 20%, Valvular heart disease, chronic atrial fibrillation not on anticoagulation, paranoid schizophrenia, presenting with progressive lower extremity edema and shortness of breath. Secondary to poor adherence to medication regimen Does not take any medication once discharge from the hospital since January CXR on admission showed cardiomegaly with prominence of the central pulmonary vasculature. Right larger than left pleural effusions with bibasilar consolidation. Lasix 80 mg IV at the ER, then started on Lasix 40mg IV BID Repeat CXR showed stable components of congestive failure. Unchanged right pleural effusion. Cardiology on board Continued fluid restriction 1500 mL's per day, 2 g sodium diet Echo done today showed mildly dilated left ventricle with severely reduced systolic function with ejection fraction 15 to 20%. Akinesis of the inferior lateral wall, basal anterolateral wall, basal to mid inferior, and basal inferior septal wall segment. Severe global hypokinesis IV lasix transition to PO lasix 40mg daily Continue spironolactone 25mg daily Clinically improves significantly Ok from cardiology standpoint to discharge home 05/09/20 Continue to hold diuretic due to acute renal failure with creatinine 6.4 today Case discussed with cardiology and agreed to continue to hold Lasix and spironolactone Will monitor closely for sign of volume overload Acute renal failure Mostly due to diuretics Creatinine increased to 6.4 Nephrology on board Continue gentle IVF Continue to hold lasix, spironolactone and lisinopril Continue monitor BMP Hyperkalemia Potassium increased to 5.9 Nephrology was consulted Received 10 units IV insulin, 2 amps dextrose and lasix 40mg IV given by nephro IVF changed to Dextrose with bicarb at 80cc Potassium improved to 4.2 today Continue a low K diet Continue monitor closely Check BMP daily Right Pleural Effusion CXR on admission showed Right larger than left pleural effusions with bibasilar consolidation Repeat CXR on 05/08 showed resolution of the previously described pulmonary edema and pleural effusions. Continue to hold spironolactone and Lasix due to LAUREN saturated well on RA Mild troponin elevation Possible related to CHF exacerbation Troponin 0.059 on admission, then dropped to Troponin 0.050 EKG showed nonspecific T wave changes in the lateral leads Non compliant with medication Continue aspirin, Plavix, metoprolol, atorvastatin Ischemic Cardiomyopathy Discussed with patient that he needs to be complaint with his med ECHO with EF 15 to 20 % Continue Metoprolol, Lasix and Lisinopril on hold Defer to his cardiology to address for ICD placement, not a good candidate due to medication noncompliant and paranaoid Diarrhea Stools for C diff negative Will add loperamide prn History of chronic atrial fibrillation Rate control Normal sinus rhythm on EKG Not on anticoagulant due to his non compliant continue metoprolol, and aspirin, Plavix Chronic right leg lymphedema No signs of cellulitis at this time, continue to monitor Continue daily wound care Generalized Weakness PT/OT eval Fall precaution Hypothyroidism TSH 10.5 He has not been taking the levothyroxine for months Levothyroxine resumes, will continue 50 mg daily pt is known to be non compliant of medications once discharged from hospital Check TSH in 4 to 6 weeks Paranoid schizophrenia Continue refusing taking his meds Does not take any medication at home once discharge since pt is so paranoid and believes someone changed his meds He mentioned to the clinical laboratory science professor that a white force that attacked him Psych on board Continue Zyprexa 5mg HS DVT prophylaxis Heparin subcutaneous CODE STATUS Full code Disposition Will discharge once medically stable Admission and Anticipated Discharge Date Admission Date: April 24, 2020 Subjective Pt was seen and examined Lying in bed with no distress Pt said that he has been having alot of diarrhea He is room his so warm with the heat He said that whenever he goes to use the bathroom, the bathroom is very cold He said that he feels weak and he is appetite is poor Denies any chest pain, palpitation, dizziness and SOB Physical Exam Physical Exam: General- No acute distress Head- atraumatic Eyes- PERRL, EOMI, ENT- Poor dentition Neck- supple, no JVD Lungs- clear to auscultation Heart- regular rhythm; +murmur Abdomen- normal bowel sounds, soft, nontender Extremities- no calf tenderness, bilateral LE swelling RLE greater than the left improved Neuro- alert, oriented x 3; PERRL, EOMI; no facial palsy; no dysarthria Skin- warm & dry Results & Data Results & Data ([facility]) Vital Signs (Past 12 Hours) Vital Signs Temp Pulse Pulse Pulse Resp BP BP 05/09/20 16:00 96 H 05/09/20 15:00 36.8 C 84 18 90/52 L 05/09/20 12:20 36.4 C L 73 18 91/41 L 05/09/20 07:48 36.5 C 78 18 87/57 L 05/09/20 07:44 36.6 C 94 H 20 107/69 Pulse Ox 05/09/20 16:00 05/09/20 15:00 96 05/09/20 12:20 99 05/09/20 07:48 100 05/09/20 07:44 97
[2020-05-09] MEDS ORDERED: LOPERAMIDE HCL 2 MG CAP PO PRN (18:35)
[2020-05-09] MEDS: TRAMADOL HCL 50 MG TABLET PO PRN (19:13)
[2020-05-09] MEDS: HYDROmorphone INJ 0.5 MG/0.5 ML SYR IV PRN (20:49)
[2020-05-09] MEDS: ATORVASTATIN 40 MG TAB PO SCH (20:53)
[2020-05-10] MEDS: HYDROmorphone INJ 0.5 MG/0.5 ML SYR IV PRN (00:12)
[2020-05-10] MEDS: HEPARIN SOD 5,000 UNIT/0.5 ML VIAL SQ SCH ×3 (04:59→21:27)
[2020-05-10] MEDS: LEVOTHYROXINE SODIUM 50 MCG TABLET PO SCH (04:59)
[2020-05-10 06:11] LABS: Hematocrit (blood only) 35.8 % (42-52); Hemoglobin 10.9 g/dL (14.0-18.0); Mean Corpuscular Hemoglobin 24.3 pg (25-34); Mean Corpuscular Hgb Conc 30.4 g/dL (32-36); Mean Corpuscular Volume 79.9 fL (80-100); Mean Platelet Volume 8.9 fL (7.4-10.4); Platelet Count 253 K/uL (130-400); RDW Coefficient of Variation 18.9 % (11.5-14.5); RDW Standard Deviation 54.4 fL (36.4-46.3); Red Blood Count 4.48 M/uL (4.7-6.1); White Blood Count 6.85 K/uL (4.8-10.8)
[2020-05-10 07:05] LABS: BUN Creatinine Ratio 17.7 (10-20); Calcium 8.3 mg/dl (8.5-10.1); Creatinine Clr Calc Pharmacy 8.1 ml/min; Est GFR (African American) 9.5; Est GFR (Non-African American) 8.2; Potassium 3.4 mmol/L (3.5-5.1)
[2020-05-10] MEDS: SODIUM BICARBONATE 8.4% 150 MEQ in DEXTROSE 5% 1,000 ML IV SCH (09:15)
[2020-05-10] MEDS: CLOPIDOGREL BISULFATE 75 MG TAB PO SCH (09:44)
[2020-05-10] MEDS: ASPIRIN 81 MG ECTAB PO SCH (09:44)
[2020-05-10] MEDS: risperiDONE ODT 0.5 MG SOLTAB PO SCH ×2 (09:44→21:27)
[2020-05-10] MEDS: METOPROLOL SUCC 25MG EXT REL TAB PO SCH (09:44)
--- NOTE | 2020-05-10 12:48 | Psychiatric Progress Note ---
Date of Service May 10, 2020 Impression / Recommendations Impression 70-year-old male with reported history of schizophrenia, though has never been willing for antipsychotic medications to treat this historical diagnosis. As per his usual presentation, he is declining specific medication recommendations related to his cardiac health. Pt was initially intermittently accepting olanzapine ODT dosing, but more recently has been refusing doses for the past 3 days. Pt was evaluated today and participated appropriately in conversation, though continues to state he is unwilling to take potassium or olanzapine. Psychiatric recommendation was discussed, which includes switching HS olanzapine ODT to risperidone ODT which can be offered BID - increasing the availability of the medication for patient's consideration. Recommended dosing of 0.5mg BID given concern for acute renal failure. Interval History Identifying Information 70-year-old male with long history of homelessness and historical diagnoses of schizophrenia, well known to our consult service from previous medical admission. Pt was admitted medically, on 04/24/2020 with hypervolemia and hypokalemia to medical floor with cardiology consulting due to significant cardiomyopathy (EF 15-20%). Psychiatric consultation requested and completed on 04/27/2020 - seen today for follow up given noncompliance with recommended olanzapine. Chief Complaint "Feeling a lot better than yesterday." Review of Systems Notes Constitutional: reports dizziness Cardiovascular: denied Respiratory: reports frequent SOB Gastrointestinal: denied Neurological: denied Psychiatric: denies symptoms other than stated above Total of at least 10 systems reviewed, pertinent positives as above and in HPI. Subjective Subjective Patient's case was reviewed and discussed with psychiatric nurse liaison and supervising psychiatrist. It is reported that patient has been more consistently refusing olanzapine. Pt was seen today to assess progress since admission. Pt states he is feeling "a lot better than yesterday." Pt states that he is very confused about his medical condition, stating "it seems to have shifted direction, I don't know what's happening anymore." We reviewed psychiatric recommendations made during initial consultation. Pt did report awareness that olanzapine is a "mental health medication, I don't want that." Pt then begins to share with this provider that he is aware the medication can "cheer you up", and states "I just don't feel that way, I'm not ready to do the cheered up thing." Pt denies suicidality or hopelessness, but admits feeling overwhelmed occasionally related to his medical and housing situations. He states he has been largely isolated to his apartment as "that way the staff can keep track of me. If I go walking around downtown, I could fall over and no one would know where I am." Pt does admit to feeling lonely in the context of "being alone in my apartment 12/06." We discussed recommendation for medication adjustments to allow for more frequent availability of medication, with discussion that risperidone may also be helpful for anxiety/restlessness. Risks and benefits of the medication were discussed, with little word from the patient regarding his willingness to take the medication. Pt again states "I know that's a mental health medication. I'm not bonkers. If I was crazy, it would have come out by now." When patient was asked about his continued non- compliance with specific aspects of his medical treatment, he simply states "[the staff] are telling stories about me. They are not true. They're in control of what I take and what I don't, they're the ones giving it to me." Pt does report his housing situation is "much, much better than it was a year ago" and that he does not have any additional safety concerns related to the idea of returning to his apartment once he is medically cleared. Physical Exam Psychiatric Orientation: alert, oriented to person, oriented to place and + guarded (superifically cooperative) Apperance: appropriately dressed (wearing hospital gown) and + disheveled (long lacy hair and lim, appearing unkempt - limited hygiene ); + did not appear stated age (appears older than stated age) Eye Contact: + fair eye contact Motor Behavior: no abnormal motor movements (observed while laying in bed ) Speech: + abnormal rate/rhythm/volume of speech (soft volume, very raspy voice ) Affect: + anxious affect Mood: + anxious mood ("I'm nervous about what's happening, my medical issues keep shifting") Thought Process: goal directed thought process, + perseveration (regarding reasoning for refusal of medication recommendations) and + concrete thought process Thought Content: + preoccupation and + loneliness; no hopelessness Suicidal Thoughts: denies suicidal thoughts Homicidal Thoughts: denies homicidal thoughts Hallucinations: no auditory hallucinations and no visual hallucinations Cognition: attention grossly intact and language grossly intact Insight: + limited insight (chronic concern) Judgement: + limited judgement (chronic concern) Vital Signs (Past 24 Hours) Last Vital Signs Temp 36.4 C L 05/10/20 11:49 Pulse 70 05/10/20 11:49 Resp 20 05/10/20 11:49 BP 92/52 L 05/10/20 11:49 Pulse Ox 98 05/10/20 11:49 Results & Data ([facility]) Laboratory Results Laboratory Results - last 24 hr 05/10/20 05/10/20 05:58 05:58 WBC 6.85 RBC 4.48 L Hgb 10.9 L Hct 35.8 L MCV 79.9 L MCH 24.3 L MCHC 30.4 L RDW Std Deviation 54.4 H RDW Coeff of Dante 18.9 H Plt Count 253 MPV 8.9 Sodium 138 Potassium 3.4 L D Chloride 105 Carbon Dioxide 24 Anion Gap 10.0 BUN 113 H Creatinine 6.40 H* Est Cr Clr Drug Dosing 8.1 Est GFR ( Amer) 9.5 Est GFR (Non-Af Amer) 8.2 BUN/Creatinine Ratio 17.7 Glucose 95 Calcium 8.3 L Current Inpatient Medications Current Inpatient Medications: Current Inpatient Medications Acetaminophen (Tylenol) 650 mg PO Q4H PRN PRN Reason: Pain or Fever Stop: 05/24/20 21:21 Last Admin: 05/01/20 17:14 Dose: 650 mg Documented by: Aspirin (Ecotrin Ectab) 81 mg PO QAM [facility] Stop: 05/25/20 08:59 Last Admin: 05/10/20 09:44 Dose: Not Given Documented by: Atorvastatin Calcium (Lipitor) 80 mg PO HS [facility] Stop: 05/25/20 20:59 Last Admin: 05/09/20 20:53 Dose: 20 mg Documented by: Clopidogrel Bisulfate (Plavix) 75 mg PO DAILY [facility] Stop: 05/25/20 08:59 Last Admin: 05/10/20 09:44 Dose: 75 mg Documented by: Heparin Sodium (Porcine) (Heparin Sodium (Porcine)) 5,000 units SQ Q8 [facility] Stop: 06/07/20 13:59 Last Admin: 05/10/20 04:59 Dose: Not Given Documented by: Hydromorphone HCl (Dilaudid) 0.25 mg IV Q3H PRN PRN Reason: Pain Stop: 05/22/20 09:00 Last Admin: 05/10/20 00:12 Dose: 0.25 mg Documented by: Promethazine HCl 12.5 mg/ (Sodium Chloride) 50.5 mls @ 202 mls/hr IV Q6H PRN PRN Reason: Nausea And Vomiting Stop: 06/07/20 09:00 Last Infusion: 05/08/20 12:59 Dose: Infused Documented by: Sodium Bicarbonate 150 meq/ (Dextrose) 1,150 mls @ 80 mls/hr IV .[id number] [facility] Stop: 06/07/20 14:02 Last Admin: 05/10/20 09:15 Dose: 80 mls/hr Documented by: Levothyroxine Sodium (Synthroid) 50 mcg PO DAILYBB [facility] Stop: 05/31/20 06:29 Last Admin: 05/10/20 04:59 Dose: 50 mcg Documented by: Lisinopril (Zestril) 5 mg PO QAM [facility] Stop: 05/25/20 08:59 Last Admin: 05/07/20 09:00 Dose: Not Given Documented by: Loperamide HCl (Imodium) 2 mg PO Q6H PRN PRN Reason: Diarrhea Stop: 06/08/20 18:34 Last Admin: 05/09/20 19:13 Dose: 2 mg Documented by: Metoprolol Succinate (Toprol Xl) 25 mg PO DAILY [facility] Stop: 05/31/20 08:59 Last Admin: 05/10/20 09:44 Dose: Not Given Documented by: Olanzapine (Zyprexa Zydis Od) 5 mg PO HS [facility] Stop: 05/27/20 20:59 Last Admin: 05/08/20 21:35 Dose: Not Given Documented by: Risperidone (Risperdal M) 0.5 mg PO BID [facility] Stop: 06/09/20 08:59 Last Admin: 05/10/20 09:44 Dose: Not Given Documented by: Tramadol HCl (Ultram) 50 mg PO Q6H PRN PRN Reason: Pain Stop: 05/24/20 21:21 Last Admin: 05/09/20 19:13 Dose: 50 mg Documented by:
--- NOTE | 2020-05-10 13:21 | Nephrology Progress Note ---
Date of Service May 10, 2020 Assessment & Plan (1) Hyperkalemia: K normalized on bicarb gtt and between this, meds, diarrhea is actually low today >> will change to NS same rate -cont to hold lisinopril, K suppls, spironolactone. Potassium 5.5 >5.8 on May 08 in the setting of severe acute renal failure and had occasions such as potassium supplementation, spironolactone, lisinopril. Al l of these medications are now appropriately on hold. Patient is appropriately on low-potassium diet which should continue and was reinforced today. (2) Acute kidney failure: Baseline creatinine 0.9-1.1. Was at 1.2 on most recent labs April 30. Next labs drawn May 08 show creatinine 6, BUN 122, bicarb 12, potassium 5.5. Peak creat/BUN on 05/08 at 6.5/127 respectively; BUN a bit better, creat plateau'd at 6.4 today. -diarrhea reportedly improving so hope this will start to improve -continue cautious IVF same rate -stable creat may reflect worsening HF, diarrhea >> suspect the latter given lower K today -daily bmp -No indication at this time for acute dialysis; he would be a very poor candidate for this should the need arise due to complex heart failure and challenges with consenting to adhering to medical regimen (3) Chronic systolic CHF (congestive heart failure): Heart failure medications currently on hold and he is receiving gentle fluid resuscitation. -Monitor closely (4) Leg edema: better than baseline; may be come challenging as we give IVF and hold most diuretics Admission and Anticipated Discharge Date Admission Date: April 24, 2020 Subjective ongoing c/o significant N; ate full midday meal though. note OJ on tray and we discussed along w/ nursing low K diet and OJ alternatives. not sob; no worsening edema. diarrhea slowed. Review of Systems Review of Systems: All systems reviewed & are unremarkable except as noted in HPI & below Physical Exam Constitutional: well developed, + cachectic, + behavioral limitations and + disheveled on RA Eyes: EOM intact bilaterally ENMT: Ears: no external ear abnormality Nose: no external nose abnormality Mouth: + dry oral mucous membranes and + dentition abnormality Neck: no nuchal rigidity Respiratory: normal respiratory effort Auscultation: lungs clear to auscultation bilaterally and + diminished lung sounds Cardiovascular: Rate/Rhythm: regular rate and regular rhythm Heart Sounds: + murmur Extremities: + edema (RLE indurated) Gastrointestinal (Abdomen): Inspection/Auscultation: normal bowel sounds Percussion/Palpation: abdomen soft; abdomen nontender Musculoskeletal: Extremities: strength 5/5 throughout Skin: no rashes, warm and dry + lesion (posterior R calf) Neurologic: king, fluent speech, no tremor Psychiatric: A+Ox3, euthymic affect Eye Contact: + fair eye contact Speech: normal rate/rhythm/volume of speech Results & Data ([facility]) Vital Signs (Past 12 Hours) Vital Signs Temp Pulse Pulse Pulse Resp BP BP 05/10/20 11:49 36.4 C L 70 20 92/52 L 05/10/20 09:43 69 95/43 L 05/10/20 07:16 70 05/10/20 06:53 36.6 C 74 18 103/59 L 05/10/20 04:02 36.6 C 82 18 108/62 05/10/20 01:27 74 Pulse Ox 05/10/20 11:49 98 05/10/20 09:43 94 05/10/20 07:16 05/10/20 06:53 100 05/10/20 04:02 97 05/10/20 01:27 Laboratory Results 05/10/20 05:58 05/10/20 05:58
[2020-05-10] MEDS: SODIUM CHLORIDE 0.9% 1000ML 1,000 ML IV SCH (14:00)
--- NOTE | 2020-05-10 17:15 | Hospitalist Progress Note ---
Date of Service May 10, 2020 Assessment & Plan (1) Acute on chronic systolic (congestive) heart failure: 69-year-old male with history of ischemic cardiomyopathy, combined systolic and diastolic congestive heart failure, ejection fraction 15 to 20%, Valvular heart disease, chronic atrial fibrillation not on anticoagulation, paranoid schizophrenia, presenting with progressive lower extremity edema and shortness of breath. Secondary to poor adherence to medication regimen Does not take any medication once discharge from the hospital since January CXR on admission showed cardiomegaly with prominence of the central pulmonary vasculature. Right larger than left pleural effusions with bibasilar consolidation. Lasix 80 mg IV at the ER, then started on Lasix 40mg IV BID Repeat CXR showed stable components of congestive failure. Unchanged right pleural effusion. Cardiology on board Continued fluid restriction 1500 mL's per day, 2 g sodium diet Echo done today showed mildly dilated left ventricle with severely reduced systolic function with ejection fraction 15 to 20%. Akinesis of the inferior lateral wall, basal anterolateral wall, basal to mid inferior, and basal inferior septal wall segment. Severe global hypokinesis IV lasix transition to PO lasix 40mg daily Continue spironolactone 25mg daily Clinically improves significantly Ok from cardiology standpoint to discharge home 05/10/20 Continue to hold diuretic due to acute renal failure with creatinine 6.4 today Case discussed with cardiology and agreed to continue to hold Lasix and spironolactone Will monitor closely for sign of volume overload Acute renal failure Mostly due to diuretics Creatinine increased to 6.4 Nephrology on board Continue gentle IVF Continue to hold lasix, spironolactone and lisinopril Continue monitor BMP Hyperkalemia Potassium increased to 5.9 Nephrology was consulted Received 10 units IV insulin, 2 amps dextrose and lasix 40mg IV given by nephro IVF changed to Dextrose with bicarb at 80cc Potassium improved to 3.4 today Continue a low K diet Continue monitor closely Check BMP daily Right Pleural Effusion CXR on admission showed Right larger than left pleural effusions with bibasilar consolidation Repeat CXR on 05/08 showed resolution of the previously described pulmonary edema and pleural effusions. Continue to hold spironolactone and Lasix due to LAUREN saturated well on RA Mild troponin elevation Possible related to CHF exacerbation Troponin 0.059 on admission, then dropped to Troponin 0.050 EKG showed nonspecific T wave changes in the lateral leads Non compliant with medication Continue aspirin, Plavix, metoprolol, atorvastatin Ischemic Cardiomyopathy Discussed with patient that he needs to be complaint with his med ECHO with EF 15 to 20 % Continue Metoprolol, Lasix and Lisinopril on hold Defer to his cardiology to address for ICD placement, not a good candidate due to medication noncompliant and paranaoid Diarrhea Stools for C diff negative Will add loperamide prn History of chronic atrial fibrillation Rate control Normal sinus rhythm on EKG Not on anticoagulant due to his non compliant continue metoprolol, and aspirin, Plavix Chronic right leg lymphedema No signs of cellulitis at this time, continue to monitor Continue daily wound care Generalized Weakness PT/OT eval Fall precaution Hypothyroidism TSH 10.5 He has not been taking the levothyroxine for months Levothyroxine resumes, will continue 50 mg daily pt is known to be non compliant of medications once discharged from hospital Check TSH in 4 to 6 weeks Paranoid schizophrenia Continue refusing taking his meds Does not take any medication at home once discharge since pt is so paranoid and believes someone changed his meds He mentioned to the elevator repairer helper that a white force that attacked him last week Psych on board Zyprexa 5mg HS changed to Risperidone 0.5 mg BID I advised pt to try to take the Risperidone DVT prophylaxis Heparin subcutaneous CODE STATUS Full code Disposition Will discharge once medically stable Admission and Anticipated Discharge Date Admission Date: April 24, 2020 Subjective Pt was seen and examined Lying in bed with no distress He said that he feels a little better today He said that the diarrhea improves His appetite is better today Denies any chest pain, palpitation, dizziness and SOB Physical Exam Physical Exam: General- No acute distress Head- atraumatic Eyes- PERRL, EOMI, ENT- Poor dentition Neck- supple, no JVD Lungs- clear to auscultation Heart- regular rhythm; +murmur Abdomen- normal bowel sounds, soft, nontender Extremities- no calf tenderness, bilateral LE swelling RLE greater than the left improved Neuro- alert, oriented x 3; PERRL, EOMI; no facial palsy; no dysarthria Skin- warm & dry Results & Data Results & Data ([facility]) Vital Signs (Past 12 Hours) Vital Signs Temp Pulse Pulse Pulse Resp BP BP 05/10/20 16:00 75 05/10/20 15:15 36.6 C 70 18 95/60 L 05/10/20 11:49 36.4 C L 70 20 92/52 L 05/10/20 09:43 69 95/43 L 05/10/20 07:16 70 05/10/20 06:53 36.6 C 74 18 103/59 L Pulse Ox 05/10/20 16:00 05/10/20 15:15 99 05/10/20 11:49 98 05/10/20 09:43 94 05/10/20 07:16 05/10/20 06:53 100
[2020-05-10] MEDS: ATORVASTATIN 40 MG TAB PO SCH (21:26)
[2020-05-11] MEDS: SODIUM CHLORIDE 0.9% 1000ML 1,000 ML IV SCH ×2 (01:25→14:04)
[2020-05-11] MEDS: TRAMADOL HCL 50 MG TABLET PO PRN ×2 (01:40→17:34)
[2020-05-11] MEDS: PROMETHAZINE HCL 12.5 MG in SODIUM CHLORIDE 0.9% 50 ML IV PRN ×2 (01:55→21:01)
[2020-05-11] MEDS: HEPARIN SOD 5,000 UNIT/0.5 ML VIAL SQ SCH ×2 (06:06→13:29)
[2020-05-11] MEDS: LEVOTHYROXINE SODIUM 50 MCG TABLET PO SCH (06:21)
[2020-05-11 06:45] LABS: Appearance Urine Clear (Clear); Bacteria Urine Automated Negative (Negative); Bilirubin Urine Negative (Negative); Blood Urine Trace (Negative); Color Urine Yellow; Glucose Urine UA Negative (Negative); Ketones Urine Negative (Negative); Leukocyte Esterase Urine 2+ (Negative); Nitrite Urine Negative (Negative); Protein Urine Trace (Negative); RBC Urine Automated 0-4 /hpf (0-4); Specific Gravity Urine 1.016 (1.000-1.030); Urobilinogen Urine Negative (Negative); WBC Urine Automated >30 /hpf (0-5)
[2020-05-11 07:20] LABS: BUN Creatinine Ratio 27.1 (10-20); Calcium 7.6 mg/dl (8.5-10.1); Creatinine Clr Calc Pharmacy 13.4 ml/min; Est GFR (African American) 15.8; Est GFR (Non-African American) 13.7; Potassium 3.3 mmol/L (3.5-5.1)
[2020-05-11] MEDS: METOPROLOL SUCC 25MG EXT REL TAB PO SCH (09:03)
[2020-05-11] MEDS: CLOPIDOGREL BISULFATE 75 MG TAB PO SCH (09:04)
[2020-05-11] MEDS: ASPIRIN 81 MG ECTAB PO SCH (09:04)
[2020-05-11] MEDS: risperiDONE ODT 0.5 MG SOLTAB PO SCH ×2 (09:04→21:01)
[2020-05-11] MEDS ORDERED: POTASSIUM CHLORIDE 20 MEQ TABCR PO ONE (10:30)
--- NOTE | 2020-05-11 13:04 | Progress Notes ---
DATE: 05/11/2020 NEPHROLOGY PROGRESS NOTE SUBJECTIVE: The patient is complaining a lot about the food quality as he is on a renal diet. No new symptoms noted. He is making lots of urine, although it is not measured. OBJECTIVE: VITAL SIGNS: Blood pressure is 90/56, pulse rate 73, temperature 36.6 degrees Celsius, 99% on room air. HEENT: Mucous membrane is moist. NECK: Supple. CHEST: Bilaterally clear to auscultation. CARDIOVASCULAR: S1, S2 regular. ABDOMEN: Soft, nontender. EXTREMITIES: Show 1+ edema with chronic skin changes. LABORATORY TESTS: There has been significant improvement in a 24-hour time period, his creatinine has gone down by more than 2 and is now down to 4.18. Potassium is now low at 3.3, BUN 113. Hemoglobin 10.9, platelet count 253. ASSESSMENT AND PLAN: 1. Hyperkalemia: At this time, he actually has low potassium. Given this, I would discontinue the low-potassium diet and make him regular diet as he is complaining a lot about food quality. 2. Acute renal failure: Significant and encouraging improvement in his creatinine in the last 24 hours. Given this, I think he most likely will not require dialysis. Also, the diarrhea seems to be improving. Continue IV fluid normal saline at 80 mL per hour. 3. Chronic systolic congestive heart failure: Diuretics is currently on hold and he is getting gentle hydration. Continue to follow closely.
--- NOTE | 2020-05-11 15:32 | Hospitalist Progress Note ---
Date of Service May 11, 2020 Assessment & Plan (1) Acute on chronic systolic (congestive) heart failure: 69-year-old male with history of ischemic cardiomyopathy, combined systolic and diastolic congestive heart failure, ejection fraction 15 to 20%, Valvular heart disease, chronic atrial fibrillation not on anticoagulation, paranoid schizophrenia, presenting with progressive lower extremity edema and shortness of breath. Secondary to poor adherence to medication regimen Does not take any medication once discharge from the hospital since January CXR on admission showed cardiomegaly with prominence of the central pulmonary vasculature. Right larger than left pleural effusions with bibasilar consolidation. Lasix 80 mg IV at the ER, then started on Lasix 40mg IV BID Repeat CXR showed stable components of congestive failure. Unchanged right pleural effusion. Cardiology on board Continued fluid restriction 1500 mL's per day, 2 g sodium diet Echo done today showed mildly dilated left ventricle with severely reduced systolic function with ejection fraction 15 to 20%. Akinesis of the inferior lateral wall, basal anterolateral wall, basal to mid inferior, and basal inferior septal wall segment. Severe global hypokinesis IV lasix transition to PO lasix 40mg daily Continue spironolactone 25mg daily Clinically improves significantly Ok from cardiology standpoint to discharge home 05/11/20 Continue to hold diuretic due to acute renal failure with creatinine peak above 6.4 Case discussed with cardiology and agreed to continue to hold Lasix and spironolactone Will monitor closely for sign of volume overload Acute renal failure Mostly due to diuretics Creatinine peak to 6.4, now trending down to 4.1 Nephrology on board recommended to continuegentle IVF Continue to hold lasix, spironolactone and lisinopril Continue monitor BMP Hyperkalemia Potassium increased to 5.9 Nephrology was consulted Received 10 units IV insulin, 2 amps dextrose and lasix 40mg IV given by nephro IVF changed to Dextrose with bicarb at 80cc Potassium improved to 3.3today Continue monitor closely Check BMP daily Resolved Atrial fibrillation Converted to Afib this morning with rate control Has not been taking the metoprolol due to low BP or some days that he refused it Case discussed with cardiology Dr. Garcia that recommended to continue monitor the HR for now Will start on heparin drip while in the hospital for 24 to 48hr, not sure if he will be able to start it Not on anticoagulant due to his non compliant continue metoprolol, and aspirin, Plavix Hypokalemia Potassium 3.3 today K repalced Will discontinue low K diet Continue monitor BMP Right Pleural Effusion CXR on admission showed Right larger than left pleural effusions with bibasilar consolidation Repeat CXR on 05/08 showed resolution of the previously described pulmonary edema and pleural effusions. Continue to hold spironolactone and Lasix due to LAUREN saturated well on RA Mild troponin elevation Possible related to CHF exacerbation Troponin 0.059 on admission, then dropped to Troponin 0.050 EKG showed nonspecific T wave changes in the lateral leads Non compliant with medication Continue aspirin, Plavix, metoprolol, atorvastatin Ischemic Cardiomyopathy Discussed with patient that he needs to be complaint with his med ECHO with EF 15 to 20 % Continue Metoprolol, Lasix and Lisinopril on hold Defer to his cardiology to address for ICD placement, not a good candidate due to medication noncompliant and paranaoid Diarrhea Stools for C diff negative Will add loperamide prn Chronic right leg lymphedema No signs of cellulitis at this time, continue to monitor Continue daily wound care Generalized Weakness PT/OT eval Fall precaution Hypothyroidism TSH 10.5 He has not been taking the levothyroxine for months Levothyroxine resumes, will continue 50 mg daily pt is known to be non compliant of medications once discharged from hospital Check TSH in 4 to 6 weeks Paranoid schizophrenia Continue refusing taking his meds Does not take any medication at home once discharge since pt is so paranoid and believes someone changed his meds He mentioned to the transportation mechanic that a white force that attacked him last week Psych on board Zyprexa 5mg HS changed to Risperidone 0.5 mg BID I advised pt to try to take the Risperidone DVT prophylaxis Heparin subcutaneous CODE STATUS Full code Disposition Will discharge once medically stable Admission and Anticipated Discharge Date Admission Date: April 24, 2020 Subjective Pt was seen and examined Lying in bed with no distress Pt said that he was feeling dizzy today during physical therapy He said that his gait is unsteady Telemonitor showed afib this morning Denies any chest pain, palpitation, dizziness and SOB Physical Exam Physical Exam: General- No acute distress Head- atraumatic Eyes- PERRL, EOMI, ENT- Poor dentition Neck- supple, no JVD Lungs- clear to auscultation Heart- regular rhythm; +murmur Abdomen- normal bowel sounds, soft, nontender Extremities- no calf tenderness, bilateral LE swelling RLE greater than the left improved Neuro- alert, oriented x 3; PERRL, EOMI; no facial palsy; no dysarthria Skin- warm & dry Results & Data Results & Data ([facility]) Vital Signs (Past 12 Hours) Vital Signs Temp Pulse Pulse Pulse Resp BP BP 05/11/20 11:07 36.6 C 73 16 90/56 L 05/11/20 08:00 83 05/11/20 07:23 36.5 C 72 16 92/56 L 05/11/20 03:46 36.7 C 76 19 124/71 Pulse Ox 05/11/20 11:07 99 05/11/20 08:00 05/11/20 07:23 99 05/11/20 03:46 97
[2020-05-11] MEDS: HEPARIN SODIUM/DEXTROSE 25,000 UNITS/500 ML BAG IV SCH (17:29)
[2020-05-11] MEDS: Heparin IV Low Dose *NO* Bolus IV SCH ×2 (17:29→17:30)
[2020-05-11] MEDS: ATORVASTATIN 40 MG TAB PO SCH (21:06)
[2020-05-12 00:09] LABS: Partial Thromboplastin Ratio 1.4; Partial Thromboplastin Time 40.4 Seconds (21.0-31.0)
[2020-05-12] MEDS ORDERED: HEPARIN IV BOLUS 4,000 UNITS in SYRINGE 0 ML IV ONE (00:45)
[2020-05-12] MEDS: SODIUM CHLORIDE 0.9% 1000ML 1,000 ML IV SCH ×2 (02:26→15:36)
[2020-05-12] MEDS: LEVOTHYROXINE SODIUM 50 MCG TABLET PO SCH (05:53)
[2020-05-12 07:27] LABS: Hematocrit (blood only) 29.6 % (42-52); Hemoglobin 9.3 g/dL (14.0-18.0); Mean Corpuscular Hemoglobin 25.3 pg (25-34); Mean Corpuscular Hgb Conc 31.4 g/dL (32-36); Mean Corpuscular Volume 80.7 fL (80-100); Mean Platelet Volume 9.3 fL (7.4-10.4); Platelet Count 205 K/uL (130-400); RDW Standard Deviation 55.4 fL (36.4-46.3); Red Blood Count 3.67 M/uL (4.7-6.1); White Blood Count 6.36 K/uL (4.8-10.8)
[2020-05-12 07:48] LABS: Partial Thromboplastin Ratio 3.2
[2020-05-12] MEDS: METOPROLOL SUCC 25MG EXT REL TAB PO SCH (07:59)
[2020-05-12 08:11] LABS: Partial Thromboplastin Time 89.4 Seconds (21.0-31.0)
[2020-05-12 08:19] LABS: BUN Creatinine Ratio 35.7 (10-20); Calcium 7.5 mg/dl (8.5-10.1); Creatinine Clr Calc Pharmacy 26.1 ml/min; Est GFR (African American) 36.6; Est GFR (Non-African American) 31.6
[2020-05-12] MEDS: CLOPIDOGREL BISULFATE 75 MG TAB PO SCH (08:19)
[2020-05-12] MEDS: ASPIRIN 81 MG ECTAB PO SCH (08:23)
[2020-05-12] MEDS: risperiDONE ODT 0.5 MG SOLTAB PO SCH ×2 (08:23→21:55)
[2020-05-12] MEDS ORDERED: POTASSIUM CHLORIDE 20 MEQ TABCR PO STA (09:22)
--- NOTE | 2020-05-12 11:38 | Progress Notes ---
DATE: 05/12/2020 SUBJECTIVE: The patient is still complaining of diarrhea 4-5 times a day. Appetite is still not good. He is making lots of urine, although it is not measured. PHYSICAL EXAMINATION: VITAL SIGNS: Blood pressure 118/71, pulse 78, temperature 36.7 degrees Celsius, 99% on room air. HEENT: Mucous membrane is moist. NECK: Supple. No jugular venous distention. CHEST: Bilateral clear to auscultation. CARDIOVASCULAR: S1, S2 regular. ABDOMEN: Soft, nontender. EXTREMITIES: Shows chronic right lower extremity edema, but none in the left. ASSESSMENT AND PLAN: 1. Acute renal failure. He had another significant improvement in creatinine in the last 24 hours. At this rate I expect his kidney function to be almost close to normal by tomorrow. He has very low ejection fraction putting him at risk of pulmonary edema, but then at this time he is not eating much and he still has diarrhea. Given this opposite scenario I think it is reasonable to continue IV fluid at 80 mL per hour for 1 more day and then stop. He has unilateral edema, so I do not think this is mainly related with CHF and he does claim that he has always had swelling in his right leg. Continue daily labs.
[2020-05-12] MEDS: cefTRIAXone SODIUM 1,000 MG in DEXTROSE 5% 50 ML IV SCH (12:47)
--- NOTE | 2020-05-12 14:06 | Cardiology Progress Note ---
Date of Service May 12, 2020 Assessment & Plan (1) Paroxysmal atrial fibrillation: -currently in sinus rhythm, however, has demonstrated numerous episodes of atrial fibrillation. -would continue metoprolol succinate at 25 mg daily. -ventricular response adequately controlled when in atrial fibrillation. -currently on a heparin drip. -not on long-term anticoagulation due to his history of noncompliance. (2) Acute on chronic systolic (congestive) heart failure: -apparently over diuresed as his creatinine increased significantly. -receiving gentle hydration per Dr. Humphrey. -diuretics currently on hold. -continue lisinopril and metoprolol succinate. (3) CAD (coronary artery disease): -multivessel disease noted at catheterization, May 2019 -PCI of an OM branch, May 2019 -continue conservative medical care. (4) Ischemic cardiomyopathy: -ejection fraction of 15-20% on current echocardiogram. (5) Hypertension: -adequate control on current regimen. (6) Noncompliance with medications: -barrier to medical care. Admission and Anticipated Discharge Date Admission Date: April 24, 2020 Subjective The patient is resting comfortably in bed without complaints. Physical Exam Physical Exam: In general is a well-developed well-nourished male in no acute distress. HEENT exam is negative. Neck is supple with carotid upstrokes. No obvious bruits. No jugular venous distension. Cardiovascular exam reveals a regular rhythm with distant heart sounds. No obvious murmurs. Lungs are clear without rales, rhonchi or wheezes. Abdomen is soft without bruits. Extremities reveal intact radial artery pulses bilaterally. Right lower extremity notes chronic lymphedema. Results & Data ([facility]) Vital Signs (Past 12 Hours) Vital Signs Temp Pulse Pulse Resp BP BP Pulse Ox 05/12/20 11:36 36.7 C 70 18 115/65 100 05/12/20 08:30 78 05/12/20 07:01 36.7 C 74 18 118/71 99 05/12/20 04:00 36.3 C L 85 20 120/78 93 Diagnostic Findings teletypesetter monitor currently notes sinus rhythm. He is going in and out of atrial fibrillation. Rate is adequately controlled at less than 100 bpm. PG Care Time/CCT Total # of Minutes Spent Total Time Spent with Patient: Total time spent is greater than 50% in coordination of care (as documented) at patient's floor/unit and/or counseling patient: Coding Level of Care Code 66409 Subseq Hosp Care Lvl 3 Diagnoses Paroxysmal atrial fibrillation I48.0 Acute on chronic systolic (congestive) heart failure I50.23 CAD (coronary artery disease) I25.10 Ischemic cardiomyopathy I25.5 Hypertension I10 Noncompliance with medications Z91.14
[2020-05-12 15:13] LABS: Partial Thromboplastin Ratio 1.8
[2020-05-12 15:23] LABS: Partial Thromboplastin Time 50.9 Seconds (21.0-31.0)
--- NOTE | 2020-05-12 20:29 | Hospitalist Progress Note ---
Date of Service May 12, 2020 Assessment & Plan (1) Acute on chronic systolic (congestive) heart failure: 69-year-old male with history of ischemic cardiomyopathy, combined systolic and diastolic congestive heart failure, ejection fraction 15 to 20%, Valvular heart disease, chronic atrial fibrillation not on anticoagulation, paranoid schizophrenia, presenting with progressive lower extremity edema and shortness of breath. Secondary to poor adherence to medication regimen Does not take any medication once discharge from the hospital since January CXR on admission showed cardiomegaly with prominence of the central pulmonary vasculature. Right larger than left pleural effusions with bibasilar consolidation. Lasix 80 mg IV at the ER, then started on Lasix 40mg IV BID Repeat CXR showed stable components of congestive failure. Unchanged right pleural effusion. Cardiology on board Continued fluid restriction 1500 mL's per day, 2 g sodium diet Echo done today showed mildly dilated left ventricle with severely reduced systolic function with ejection fraction 15 to 20%. Akinesis of the inferior lateral wall, basal anterolateral wall, basal to mid inferior, and basal inferior septal wall segment. Severe global hypokinesis IV lasix transition to PO lasix 40mg daily Continue spironolactone 25mg daily Clinically improves significantly Ok from cardiology standpoint to discharge home 05/12/20 Continue to hold diuretic due to acute renal failure with creatinine peak above 6.4 Case discussed with cardiology and agreed to continue to hold Lasix and spironolactone Will monitor closely for sign of volume overload Acute renal failure Mostly due to diuretics Creatinine peak to 6.4, now trending down to 4.1 Nephrology on board recommended to continue gentle IVF for today and d/c tomorrow Continue to hold lasix, spironolactone and lisinopril Continue monitor BMP Hyperkalemia Potassium increased to 5.9 Nephrology was consulted Received 10 units IV insulin, 2 amps dextrose and lasix 40mg IV given by nephro IVF changed to Dextrose with bicarb at 80cc Potassium improved to 3 today Refused to take K supplement Continue monitor closely Check BMP daily Atrial fibrillation Converted to Afib this morning with rate control Has not been taking the metoprolol due to low BP or some days that he refused it Case discussed with cardiology Dr. Garcia that recommended to continue monitor the HR for now Continue heparin drip while in the hospital for 24 to 48hr Not on anticoagulant due to his non compliant continue metoprolol, and aspirin, Plavix Hypokalemia Potassium 3 today Refused K supplement today Continue monitor BMP Right Pleural Effusion CXR on admission showed Right larger than left pleural effusions with bibasilar consolidation Repeat CXR on 05/08 showed resolution of the previously described pulmonary edema and pleural effusions. Continue to hold spironolactone and Lasix due to LAUREN saturated well on RA Mild troponin elevation Possible related to CHF exacerbation Troponin 0.059 on admission, then dropped to Troponin 0.050 EKG showed nonspecific T wave changes in the lateral leads Non compliant with medication Continue aspirin, Plavix, metoprolol, atorvastatin Ischemic Cardiomyopathy Discussed with patient that he needs to be complaint with his med ECHO with EF 15 to 20 % Continue Metoprolol, Lasix and Lisinopril on hold Defer to his cardiology to address for ICD placement, not a good candidate due to medication noncompliant and paranaoid Diarrhea Stools for C diff negative Will add loperamide prn Chronic right leg lymphedema No signs of cellulitis at this time, continue to monitor Continue daily wound care Generalized Weakness PT/OT eval Fall precaution Hypothyroidism TSH 10.5 He has not been taking the levothyroxine for months Levothyroxine resumes, will continue 50 mg daily pt is known to be non compliant of medications once discharged from hospital Check TSH in 4 to 6 weeks Paranoid schizophrenia Continue refusing taking his meds Does not take any medication at home once discharge since pt is so paranoid and believes someone changed his meds He mentioned to the spine supervisor that a white force that attacked him last week Psych on board Zyprexa 5mg HS changed to Risperidone 0.5 mg BID I advised pt to try to take the Risperidone DVT prophylaxis Heparin subcutaneous CODE STATUS Full code Disposition Will discharge once medically stable Admission and Anticipated Discharge Date Admission Date: April 24, 2020 Subjective Pt was seen and examined Lying in bed with no distress He refused to take the potassium today He said that he feels much better Denies any chest pain, palpitation and SOB Physical Exam Physical Exam: General- No acute distress Head- atraumatic Eyes- PERRL, EOMI, ENT- Poor dentition Neck- supple, no JVD Lungs- clear to auscultation Heart- regular rhythm; +murmur Abdomen- normal bowel sounds, soft, nontender Extremities- no calf tenderness, bilateral LE swelling RLE greater than the left improved Neuro- alert, oriented x 3; PERRL, EOMI; no facial palsy; no dysarthria Skin- warm & dry Results & Data Results & Data ([facility]) Vital Signs (Past 12 Hours) Vital Signs Temp Pulse Pulse Pulse Resp BP Pulse Ox 05/12/20 19:51 36.8 C 108 H 18 112/69 98 05/12/20 15:50 36.7 C 71 18 145/83 H 97 05/12/20 14:20 77 05/12/20 11:36 36.7 C 70 18 115/65 100 05/12/20 08:30 78
[2020-05-12] MEDS: ATORVASTATIN 40 MG TAB PO SCH (21:55)
[2020-05-13] MEDS: SODIUM CHLORIDE 0.9% 1000ML 1,000 ML IV SCH (03:56)
[2020-05-13] MEDS: HEPARIN SODIUM/DEXTROSE 25,000 UNITS/500 ML BAG IV SCH (05:15)
[2020-05-13] MEDS: LEVOTHYROXINE SODIUM 50 MCG TABLET PO SCH (06:27)
[2020-05-13] MEDS ORDERED: ACETAMINOPHEN 325 MG TAB PO PRN (07:20)
[2020-05-13] MEDS: PROMETHAZINE HCL 12.5 MG in SODIUM CHLORIDE 0.9% 50 ML IV PRN (08:13)
[2020-05-13] MEDS: risperiDONE ODT 0.5 MG SOLTAB PO SCH ×2 (08:17→20:32)
[2020-05-13] MEDS: METOPROLOL SUCC 25MG EXT REL TAB PO SCH (08:17)
[2020-05-13] MEDS: ASPIRIN 81 MG ECTAB PO SCH (08:18)
[2020-05-13 09:19] LABS: Partial Thromboplastin Ratio 0.9; Partial Thromboplastin Time 25.9 Seconds (21.0-31.0)
[2020-05-13] MEDS ORDERED: HEPARIN IV BOLUS 4,000 UNITS in SYRINGE 0 ML IV ONE (10:00)
[2020-05-13 10:07] LABS: BUN Creatinine Ratio 41.9 (10-20); Calcium 7.7 mg/dl (8.5-10.1); Creatinine Clr Calc Pharmacy 48.5 ml/min; Est GFR (African American) 69.5; Est GFR (Non-African American) 59.9
[2020-05-13] MEDS: cefTRIAXone SODIUM 1,000 MG in DEXTROSE 5% 50 ML IV SCH (11:55)
[2020-05-13] MEDS: CLOPIDOGREL BISULFATE 75 MG TAB PO SCH (11:55)
[2020-05-13] MEDS ORDERED: POTASSIUM CHLORIDE 20 MEQ TABCR PO STA (14:21)
--- NOTE | 2020-05-13 14:22 | Hospitalist Progress Note ---
Date of Service May 13, 2020 Assessment & Plan (1) Acute on chronic systolic (congestive) heart failure: Acute renal failure with Hyperkalemia (both now resolved) currently with Hypokalemia -69-year-old male with history of ischemic cardiomyopathy, combined systolic and diastolic congestive heart failure, ejection fraction 15 to 20%, Valvular heart disease, chronic atrial fibrillation not on anticoagulation, paranoid schizophrenia, presenting on 04/24/2020 with progressive lower extremity edema and shortness of breath. Secondary to poor adherence to medication regimen. Does not take any medication once discharge from the hospital since January 2020. CXR on admission showed cardiomegaly with prominence of the central pulmonary vasculature. Right larger than left pleural effusions with bibasilar consolidation. -patient was diuresed during the hospital stay with IV Lasix diuretics and there were plans to transition to oral diuretics completely but then patient developed acute renal failure on 05/08/2020 labs and found to have creatinine of 6 and serum potassium of 5.8 -patient was then treated with IV fluids and by holding the diuretics in conjunction with nephrology evaluation -as of 05/13/2020, the renal function returned to baseline. potassium now around 3 and will replace with potassium supplements - hold diuretics until serum potassium can be between 3.5 to 4 Paroxysmal Atrial fibrillation -patient has history of medication nonadherence -he did develop episodes of atrial fibrillation during this hospital stay potentially from him not taking beta blockers regularly and because of underlying heart failure -heparin drip was started on 05/11/2020 with plans for 24 to 48 hours of dosing. as of 05/13/2020 IV heparin is stopped, patient also lost IV access,Because he has not demonstrated compliance with medications in the past, would avoid systemic IV heparin or NOAC at this time. patient also currently in sinus rhythm -continue metoprolol, and aspirin, Plavix Ischemic Cardiomyopathy Mild troponin elevation on this admission -Possible related to CHF exacerbation -Troponin 0.059 on admission, then dropped to Troponin 0.050, EKG showed nonspecific T wave changes in the lateral leads -Continue aspirin, Plavix, metoprolol, atorvastatin Right Pleural Effusion -CXR on admission showed Right larger than left pleural effusions with bibasilar consolidation -Repeat CXR on 05/08 showed resolution of the previously described pulmonary edema and pleural effusions. -patient on room air Chronic right leg lymphedema -No signs of cellulitis at this time, continue to monitor -Continue daily wound care Diarrhea -C diff negative -has loperamide prn Generalized Weakness -PT/OT evaluations Hypothyroidism -TSH 10.5 on 04/30/2020 -He has not been taking the levothyroxine for months -continue Levothyroxine as 50 mg daily -will need thyroid function tests in 4 to 6 weeks Paranoid schizophrenia -patient has been known to be historically nonadherent to medications and outpatient follow ups with contribution from his personal beliefs of how some medications work -he also is known to express visual hallucinations or other delusions from time to time although he is generally calm and nonviolent -on this stay psychiatry has evaluated him for his delusions -patient was initially intermittently accepting olanzapine ODT dosing, but then patient refused these medications recently, there is active risperidone 0.5 mg BID in the inpatient medication regimen DVT prophylaxis: Heparin subcutaneous q12 hours for now CODE STATUS Full code Admission and Anticipated Discharge Date Admission Date: April 24, 2020 Subjective patient not in distress. he reported recent nausea yesterday. no vomiting. he denies acute pain Review of Systems Review of Systems: All systems reviewed & are unremarkable except as noted in Subjective Physical Exam Constitutional: + thin and comfortable Eyes: PERRL, conjunctivae normal, anicteric sclerae EOM intact bilaterally ENMT: external ear and nose normal, oropharynx normal Neck: trachea midline, no thyromegaly normal visual inspection Respiratory: normal respiratory effort, lungs clear to auscultation Cardiovascular: Rate/Rhythm: regular rate Gastrointestinal (Abdomen): normal bowel sounds, soft, nontender, no hepatosplenomegaly Neurologic: PERRL, EOMI, accommodation nl, no face palsy, no dysarthria CN's II-XI intact bilaterally Psychiatric: Orientation: alert and oriented x 3 Results & Data Results & Data ([facility]) Vital Signs (Past 12 Hours) Vital Signs Temp Pulse Pulse Resp BP BP Pulse Ox 05/13/20 11:00 36.7 C 70 18 120/67 98 05/13/20 10:19 76 05/13/20 07:00 37.0 C 77 16 132/82 99 05/13/20 02:52 36.6 C 86 19 142/85 H 98
[2020-05-13] MEDS: POTASSIUM CHLORIDE / WTR 10 MEQ/100 ML PLCT IV SCH ×2 (16:15→18:23)
[2020-05-13] MEDS: HEPARIN SOD 5,000 UNIT/0.5 ML VIAL SQ SCH (20:31)
[2020-05-13] MEDS: ATORVASTATIN 40 MG TAB PO SCH (20:31)
[2020-05-14] MEDS: TRAMADOL HCL 50 MG TABLET PO PRN ×2 (00:15→20:50)
[2020-05-14] MEDS: METOCLOPRAMIDE HCL INJ 5 MG/ML 2 ML VIAL IV PRN ×3 (00:45→22:30)
[2020-05-14] MEDS: LEVOTHYROXINE SODIUM 50 MCG TABLET PO SCH (05:49)
[2020-05-14 06:28] LABS: Basophils # (auto) 0.02 K/uL (0-0.2); Basophils % (auto) 0.2 %; Eosinophils # (auto) 0.13 K/uL (0-0.5); Eosinophils % (auto) 1.5 %; Hematocrit (blood only) 31.3 % (42-52); Hemoglobin 9.6 g/dL (14.0-18.0); Immature Granulocytes # (auto) 0.03 K/uL (0.00-0.02); Immature Granulocytes % (auto) 0.4 %; Lymphocytes # (auto) 0.84 K/uL (1.2-3.4); Mean Corpuscular Hemoglobin 25.1 pg (25-34); Mean Corpuscular Hgb Conc 30.7 g/dL (32-36); Mean Corpuscular Volume 81.7 fL (80-100); Mean Platelet Volume 9.5 fL (7.4-10.4); Monocytes % (auto) 7.1 %; Neutrophils # (auto) 6.79 K/uL (1.4-6.5); Neutrophils % (auto) 80.8 %; Platelet Count 255 K/uL (130-400); RDW Standard Deviation 56.5 fL (36.4-46.3); Red Blood Count 3.83 M/uL (4.7-6.1); White Blood Count 8.41 K/uL (4.8-10.8)
[2020-05-14 07:00] LABS: Albumin Level 2.1 gm/dl (3.4-5.0); BUN Creatinine Ratio 30.3 (10-20); Calcium 7.6 mg/dl (8.5-10.1); Creatinine Clr Calc Pharmacy 54.8 ml/min; Est GFR (African American) 77.8; Est GFR (Non-African American) 67.1; Potassium 3.4 mmol/L (3.5-5.1)
[2020-05-14 07:02] LABS: Albumin Globulin Ratio 0.5 (0.9-2); Bilirubin,Total 0.6 mg/dl (0.2-1); Globulin 4.2 gm/dl (2.5-4.0); Total Protein 6.3 gm/dl (6.4-8.2)
[2020-05-14] MEDS ORDERED: POTASSIUM CHLORIDE 20 MEQ TABCR PO ONE (07:30)
[2020-05-14] MEDS ORDERED: POTASSIUM CHLORIDE / WTR 10 MEQ/100 ML PLCT IV ONE (07:30)
[2020-05-14] MEDS: HEPARIN SOD 5,000 UNIT/0.5 ML VIAL SQ SCH ×2 (08:26→20:50)
[2020-05-14] MEDS: ASPIRIN 81 MG ECTAB PO SCH (08:26)
[2020-05-14] MEDS: METOPROLOL SUCC 25MG EXT REL TAB PO SCH (08:27)
[2020-05-14] MEDS: risperiDONE ODT 0.5 MG SOLTAB PO SCH ×2 (08:27→20:51)
[2020-05-14] MEDS: CLOPIDOGREL BISULFATE 75 MG TAB PO SCH (08:28)
[2020-05-14] MEDS: FUROSEMIDE 40 MG TAB PO SCH (09:00)
[2020-05-14] MEDS: SPIRONOLACTONE 12.5 MG TAB PO SCH (09:00)
--- NOTE | 2020-05-14 10:28 | Hospitalist Progress Note ---
Date of Service May 14, 2020 Assessment & Plan (1) Acute on chronic systolic (congestive) heart failure: Acute renal failure with Hyperkalemia (both now resolved) currently with Hypokalemia (improving) -69-year-old male with history of ischemic cardiomyopathy, combined systolic and diastolic congestive heart failure, ejection fraction 15 to 20%, Valvular heart disease, chronic atrial fibrillation not on anticoagulation, paranoid schizophrenia, presenting on 04/24/2020 with progressive lower extremity edema and shortness of breath. Secondary to poor adherence to medication regimen. Does not take any medication once discharge from the hospital since January 2020. CXR on admission showed cardiomegaly with prominence of the central pulmonary vasculature. Right larger than left pleural effusions with bibasilar consolidation. -patient was diuresed during the hospital stay with IV Lasix diuretics and there were plans to transition to oral diuretics completely but then patient developed acute renal failure on 05/08/2020 labs and found to have creatinine of 6 and serum potassium of 5.8 -patient was then treated with IV fluids and by holding the diuretics in conjunction with nephrology evaluation -as of 05/13/2020, the renal function returned to baseline. potassium around 3 and given potassium supplements and again duiuretics held -05/14/2020: serum potassium 3.4 and patient was given more potassium supplements, oral Lasix 40 mg daily started and spirolactone 12.5 mg daily started, patient was seen with case specialist and discussed with patient about possible discharge from hospital if 05/15/2020 labs are reasonably stable. Patient agrees to this plan and did not express other concerns. No headache, no chest pain, no palpitations, no shortness of breath, no abdomen pain, no vomiting Paroxysmal Atrial fibrillation -patient has history of medication nonadherence -he did develop episodes of atrial fibrillation during this hospital stay potentially from him not taking beta blockers regularly and because of underlying heart failure -heparin drip was started on 05/11/2020 with plans for 24 to 48 hours of dosing. as of 05/13/2020 IV heparin is stopped, patient also lost IV access,Because he has not demonstrated compliance with medications in the past, would avoid systemic IV heparin or NOAC at this time. patient also currently in sinus rhythm -continue metoprolol, and aspirin, Plavix Ischemic Cardiomyopathy Mild troponin elevation on this admission -Possible related to CHF exacerbation -Troponin 0.059 on admission, then dropped to Troponin 0.050, EKG showed nonspecific T wave changes in the lateral leads -Continue aspirin, Plavix, metoprolol, atorvastatin Right Pleural Effusion -CXR on admission showed Right larger than left pleural effusions with bibasilar consolidation -Repeat CXR on 05/08 showed resolution of the previously described pulmonary edema and pleural effusions. -patient on room air Chronic right leg lymphedema -No signs of cellulitis at this time, continue to monitor -wound care as needed Diarrhea -C diff negative -has loperamide prn Generalized Weakness -PT/OT evaluations Hypothyroidism -TSH 10.5 on 04/30/2020 -He has not been taking the levothyroxine for months -continue Levothyroxine as 50 mg daily -will need thyroid function tests in 4 to 6 weeks Paranoid schizophrenia -patient has been known to be historically nonadherent to medications and outpatient follow ups with contribution from his personal beliefs of how some medications work -he also is known to express visual hallucinations or other delusions from time to time although he is generally calm and nonviolent -on this stay psychiatry has evaluated him for his delusions -patient was initially intermittently accepting olanzapine ODT dosing, but then patient refused these medications recently, there is active risperidone 0.5 mg BID in the inpatient medication regimen DVT prophylaxis: Heparin subcutaneous q12 hours for now CODE STATUS Full code Admission and Anticipated Discharge Date Admission Date: April 24, 2020 Subjective serum potassium 3.4 and patient was given more potassium supplements, oral Lasix 40 mg daily started and spirolactone 12.5 mg daily started, patient was seen with case specialist and discussed with patient about possible discharge from hospital if 05/15/2020 labs are reasonably stable. Patient agrees to this plan and did not express other concerns. No headache, no chest pain, no palpitations, no shortness of breath, no abdomen pain, no vomiting Review of Systems Review of Systems: All systems reviewed & are unremarkable except as noted in Subjective Physical Exam Constitutional: + thin and comfortable Eyes: PERRL, conjunctivae normal, anicteric sclerae EOM intact bilaterally ENMT: external ear and nose normal, oropharynx normal Neck: trachea midline, no thyromegaly normal visual inspection Respiratory: normal respiratory effort, lungs clear to auscultation Cardiovascular: Rate/Rhythm: regular rate Gastrointestinal (Abdomen): normal bowel sounds, soft, nontender, no hepatosplenomegaly Neurologic: PERRL, EOMI, accommodation nl, no face palsy, no dysarthria CN's II-XI intact bilaterally Psychiatric: Orientation: alert and oriented x 3 Results & Data Results & Data ([facility]) Vital Signs (Past 12 Hours) Vital Signs Temp Pulse Pulse Pulse Resp BP BP 05/14/20 09:17 96 H 05/14/20 07:00 36.8 C 78 18 139/88 05/14/20 03:49 36.5 C 84 19 164/90 H 05/14/20 01:17 86 05/13/20 23:21 36.5 C 88 18 161/89 H Pulse Ox 05/14/20 09:17 05/14/20 07:00 94 05/14/20 03:49 97 05/14/20 01:17 05/13/20 23:21 100
[2020-05-14] MEDS: cefTRIAXone SODIUM 1,000 MG in DEXTROSE 5% 50 ML IV SCH (13:24)
[2020-05-14] MEDS: ATORVASTATIN 40 MG TAB PO SCH (20:50)
[2020-05-14] MEDS: HYDROmorphone INJ 0.5 MG/0.5 ML SYR IV PRN ×2 (21:58→22:30)
[2020-05-15] MEDS: LEVOTHYROXINE SODIUM 50 MCG TABLET PO SCH (05:40)
[2020-05-15 06:36] VITALS: TEMP 97.9; O2SAT 96
[2020-05-15] MEDS: METOCLOPRAMIDE HCL INJ 5 MG/ML 2 ML VIAL IV PRN (07:25)
[2020-05-15] MEDS: SPIRONOLACTONE 12.5 MG TAB PO SCH (08:07)
[2020-05-15] MEDS: HEPARIN SOD 5,000 UNIT/0.5 ML VIAL SQ SCH (08:07)
[2020-05-15] MEDS: FUROSEMIDE 40 MG TAB PO SCH (08:07)
[2020-05-15] MEDS: ASPIRIN 81 MG ECTAB PO SCH (08:07)
[2020-05-15] MEDS: risperiDONE ODT 0.5 MG SOLTAB PO SCH (08:07)
[2020-05-15] MEDS: CLOPIDOGREL BISULFATE 75 MG TAB PO SCH (08:08)
[2020-05-15] MEDS: METOPROLOL SUCC 25MG EXT REL TAB PO SCH (08:08)
[2020-05-15] MEDS: HYDROmorphone INJ 0.5 MG/0.5 ML SYR IV PRN (08:14)
[2020-05-15 09:03] LABS: BUN Creatinine Ratio 18.4 (10-20); Calcium 7.9 mg/dl (8.5-10.1); Creatinine Clr Calc Pharmacy 56.6 ml/min; Est GFR (African American) 85.1; Est GFR (Non-African American) 73.4; Potassium 2.9 mmol/L (3.5-5.1)
[2020-05-15] MEDS ORDERED: POTASSIUM CHLORIDE 20 MEQ TABCR PO STA (10:24)
--- NOTE | 2020-05-15 10:38 | Hospitalist Progress Note ---
Date of Service May 15, 2020 Assessment & Plan (1) Acute on chronic systolic (congestive) heart failure: Acute renal failure with Hyperkalemia (both now resolved) currently with Hypokalemia -69-year-old male with history of ischemic cardiomyopathy, combined systolic and diastolic congestive heart failure, ejection fraction 15 to 20%, Valvular heart disease, chronic atrial fibrillation not on anticoagulation, paranoid schizophrenia, presenting on 04/24/2020 with progressive lower extremity edema and shortness of breath. Secondary to poor adherence to medication regimen. Does not take any medication once discharge from the hospital since January 2020. CXR on admission showed cardiomegaly with prominence of the central pulmonary vasculature. Right larger than left pleural effusions with bibasilar consolidation. -patient was diuresed during the hospital stay with IV Lasix diuretics and there were plans to transition to oral diuretics completely but then patient developed acute renal failure on 05/08/2020 labs and found to have creatinine of 6 and serum potassium of 5.8 -patient was then treated with IV fluids and by holding the diuretics in conjunction with nephrology evaluation -as of 05/13/2020, the renal function returned to baseline. potassium around 3 and given potassium supplements and again duiuretics held -05/14/2020: serum potassium 3.4 and patient was given more potassium supplements, oral Lasix 40 mg daily started and spirolactone 12.5 mg daily start ed, -05/15/2020: serum potassium 2.9, give IV and oral potassium and recheck labs at 2 PM No headache, no chest pain, no palpitations, no shortness of breath, no abdomen pain, no vomiting Paroxysmal Atrial fibrillation -patient has history of medication nonadherence -he did develop episodes of atrial fibrillation during this hospital stay potentially from him not taking beta blockers regularly and because of underlying heart failure -heparin drip was started on 05/11/2020 with plans for 24 to 48 hours of dosing. as of 05/13/2020 IV heparin is stopped, patient also lost IV access,Because he has not demonstrated compliance with medications in the past, would avoid systemic IV heparin or NOAC at this time. patient also currently in sinus rhythm -continue metoprolol, and aspirin, Plavix Ischemic Cardiomyopathy Mild troponin elevation on this admission -Possible related to CHF exacerbation -Troponin 0.059 on admission, then dropped to Troponin 0.050, EKG showed nonspecific T wave changes in the lateral leads -Continue aspirin, Plavix, metoprolol, atorvastatin Right Pleural Effusion -CXR on admission showed Right larger than left pleural effusions with bibasilar consolidation -Repeat CXR on 05/08 showed resolution of the previously described pulmonary edema and pleural effusions. -patient on room air Chronic right leg lymphedema -No signs of cellulitis at this time, continue to monitor -wound care as needed Diarrhea -C diff negative -has loperamide prn Generalized Weakness -PT/OT evaluations Hypothyroidism -TSH 10.5 on 04/30/2020 -He has not been taking the levothyroxine for months -continue Levothyroxine as 50 mg daily -will need thyroid function tests in 4 to 6 weeks Paranoid schizophrenia -patient has been known to be historically nonadherent to medications and out patient follow ups with contribution from his personal beliefs of how some medications work -he also is known to express visual hallucinations or other delusions from time to time although he is generally calm and nonviolent -on this stay psychiatry has evaluated him for his delusions -patient was initially intermittently accepting olanzapine ODT dosing, but then patient refused these medications recently, there is active risperidone 0.5 mg BID in the inpatient medication regimen DVT prophylaxis: Heparin subcutaneous q12 hours for now CODE STATUS Full code Admission and Anticipated Discharge Date Admission Date: April 24, 2020 Subjective serum potassium 2.9, give IV and oral potassium and recheck labs at 2 PM No headache, no chest pain, no palpitations, no shortness of breath, no abdomen pain, no vomiting Review of Systems Review of Systems: All systems reviewed & are unremarkable except as noted in Subjective Physical Exam Constitutional: + thin and comfortable Eyes: PERRL, conjunctivae normal, anicteric sclerae EOM intact bilaterally ENMT: external ear and nose normal, oropharynx normal Neck: trachea midline, no thyromegaly normal visual inspection Respiratory: normal respiratory effort, lungs clear to auscultation Cardiovascular: Rate/Rhythm: regular rate Gastrointestinal (Abdomen): normal bowel sounds, soft, nontender, no hepatosplenomegaly Neurologic: PERRL, EOMI, accommodation nl, no face palsy, no dysarthria CN's II-XI intact bilaterally Psychiatric: Orientation: alert and oriented x 3 Results & Data Results & Data ([facility]) Vital Signs (Past 12 Hours) Vital Signs Temp Pulse Pulse Resp BP Pulse Ox 05/15/20 07:30 86 05/15/20 06:35 36.6 C 79 19 165/93 H 96 05/15/20 03:06 36.5 C 84 19 150/82 H 98 05/15/20 01:16 78 05/14/20 22:47 36.6 C 88 19 152/91 H 100
[2020-05-15] MEDS: POTASSIUM CHLORIDE / WTR 10 MEQ/100 ML PLCT IV SCH ×2 (11:02→12:13)
[2020-05-15] MEDS: cefTRIAXone SODIUM 1,000 MG in DEXTROSE 5% 50 ML IV SCH (12:15)
[2020-05-15 14:51] LABS: BUN Creatinine Ratio 19.9 (10-20); Calcium 7.7 mg/dl (8.5-10.1); Creatinine Clr Calc Pharmacy 63.3 ml/min; Est GFR (African American) 97.4; Est GFR (Non-African American) 84.1; Potassium 3.5 mmol/L (3.5-5.1)
[2020-05-15] MEDS ORDERED: lisinopriL 5 MG TAB PO SCH (15:15)
--- NOTE | 2020-05-15 15:20 | Discharge Summary ---
Date of Service May 15, 2020 Admission HPI Per Admitting Provider 63-year-old male with history of ischemic cardiomyopathy EF 15 to 20%, combined systolic and diastolic heart failure, valvular heart disease, Chronic atrial fibrillation not on anticoagulation, chronic schizophrenia, chr onic right leg lymphedema with ulcer, presenting with shortness of breath and leg swelling times few days. Patient was recently discharged from [facility] last January 2020 secondary to volume overload. He was prescribed Lasix p.o. daily, but patient has not been taking his medications since discharge because " medications did not suit in his apartment". As per patient, he was doing well until a few days ago when he started to have increasing leg and scrotal swelling, which progressed to shortness of breath. He then presented to the ER for evaluation. At the ER, the patient was noted to have a BNP of 15,000, chest x-ray showed congestive heart failure pattern. He was given Lasix 80 mg IV 1 dose. On exam, the patient was seen sitting up in bed, comfortable, not in distress. Reports breathing slightly improved compared to admission. He reports being anxious about his medical condition, patient reassured. He denies having any active chest pain, palpitations, dizziness, headache. No fevers or chills, shortness of breath, cough, sputum production. Denies leg pain. Principal Diagnosis Acute on chronic systolic (congestive) heart failure Acute renal failure with Hyperkalemia (both now resolved) Ischemic Cardiomyopathy Mild troponin elevation on this admission Paroxysmal Atrial fibrillation Hypothyroidism Paranoid schizophrenia Discharge Exam Constitutional + thin and comfortable Eyes PERRL, conjunctivae normal, anicteric sclerae EOM intact bilaterally ENMT external ear and nose normal, oropharynx normal Neck trachea midline, no thyromegaly normal visual inspection Respiratory normal respiratory effort, lungs clear to auscultation Cardiovascular Rate/Rhythm: regular rate Gastrointestinal (Abdomen) normal bowel sounds, soft, nontender, no hepatosplenomegaly Musculoskeletal Head/Neck/Chest: normocephalic and head atraumatic Neurologic PERRL, EOMI, accommodation nl, no face palsy, no dysarthria CN's II-XI intact bilaterally Psychiatric Orientation: alert and oriented x 3 Discharge Data Allergies Allergy/AdvReac Type Severity Reaction Status Date / Time horse dander Allergy Unknown HORSE HAIR Verified 04/24/20 16:49 tetanus toxoid, adsorbed Allergy Unknown Unknown Verified 04/24/20 16:49 Consultations 04/24/20 18:03 ED Decision to Admit Stat 04/24/20 21:22 Consult Cardiology Routine 04/27/20 07:00 Consult Psychiatry Routine 05/08/20 09:01 Consult Nephrology Routine Hospital Course (1) Acute on chronic systolic (congestive) heart failure: Acute renal failure with Hyperkalemia (both now resolved) currently with Hypokalemia -69-year-old male with history of ischemic cardiomyopathy, combined systolic and diastolic congestive heart failure, ejection fraction 15 to 20%, Valvular heart disease, chronic atrial fibrillation not on anticoagulation, paranoid schizophrenia, presenting on 04/24/2020 with progressive lower extremity edema and shortness of breath. Secondary to poor adherence to medication regimen. Does not take any medication once discharge from the hospital since January 2020. CXR on admission showed cardiomegaly with prominence of the central pulmonary vasculature. Right larger than left pleural effusions with bibasilar consolidation. -patient was diuresed during the hospital stay with IV Lasix diuretics and there were plans to transition to oral diuretics completely but then patient developed acute renal failure on 05/08/2020 labs and found to have creatinine of 6 and serum potassium of 5.8 -patient was then treated with IV fluids and by holding the diuretics in conjunction with nephrology evaluation -as of 05/13/2020, the renal function returned to baseline. potassium around 3 and given potassium supplements and again diuretics held -05/14/2020: serum potassium 3.4 and patient was given more potassium supplements, oral Lasix 40 mg daily started and spironolactone 12.5 mg daily started, -05/15/2020: serum potassium 2.9, given IV and oral potassium and recheck labs at 2 PM is 3.5. discharge on potassium 20 meq BID for 15 days. continue diuretics as outpatient as Lasix 40 mg daily and spironolactone 12.5 mg daily No headache, no chest pain, no palpitations, no shortness of breath, no abdomen pain, no vomiting Paroxysmal Atrial fibrillation -patient has history of medication nonadherence -he did develop episodes of atrial fibrillation during this hospital stay potentially from him not taking beta blockers regularly and because of underlying heart failure -heparin drip was started on 05/11/2020 with plans for 24 to 48 hours of dosing. as of 05/13/2020 IV heparin is stopped, patient also lost IV access,Because he has not demonstrated compliance with medications in the past, would avoid systemic IV heparin or NOAC at this time. patient also currently in sinus rhythm -continue metoprolol, and aspirin, Plavix Ischemic Cardiomyopathy Mild troponin elevation on this admission -Possible related to CHF exacerbation -Troponin 0.059 on admission, then dropped to Troponin 0.050, EKG showed nonspecific T wave changes in the lateral leads -Continue aspirin, Plavix, metoprolol, atorvastatin -resume lisinopril 5 mg daily Right Pleural Effusion -CXR on admission showed Right larger than left pleural effusions with bibasilar consolidation -Repeat CXR on 05/08 showed resolution of the previously described pulmonary edema and pleural effusions. -patient on room air Chronic right leg lymphedema -No signs of cellulitis at this time, continue to monitor -wound care as needed Diarrhea -C diff negative -treated with loperamide prn Generalized Weakness -PT/OT evaluations completed Hypothyroidism -TSH 10.5 on 04/30/2020 -He has not been taking the levothyroxine for months -continue Levothyroxine as 50 mg daily -will need thyroid function tests in 4 to 6 weeks Paranoid schizophrenia -patient has been known to be historically nonadherent to medications and outpatient follow ups with contribution from his personal beliefs of how some medications work -he also is known to express visual hallucinations or other delusions from time to time although he is generally calm and nonviolent -on this stay psychiatry has evaluated him for his delusions -patient was initially intermittently accepting olanzapine ODT dosing, but then patient refused these medications recently, there is active risperidone 0.5 mg BID in the inpatient medication regimen and this is also prescribed now on discharge -a primary care doctor appointment has been set up and patient encouraged to go after discharge Total Time Total Time Spent Total Time Spent (In Minutes): 40 minutes Total Time Includes: Examination of the Patient, Discharge Planning, Medication Reconciliation and Communication With Other Providers Discharge Plan Discharge Items Patient Disposition: Home - Self-Care Reason For Visit: CHF EXACERBATION Discharge Diagnosis: Acute on chronic systolic (congestive) heart failure Acute renal failure with Hyperkalemia (both now resolved) Ischemic Cardiomyopathy Mild troponin elevation on this admission Paroxysmal Atrial fibrillation Hypothyroidism Paranoid schizophrenia Condition on Discharge: Good Activity: Resume your previous activity Non-emergency contact: Primary Care Provider Call non-emergency contact if: you have any medication questions Follow-up/Referrals: PCP,NO [Primary Care Provider] - 05/21/20 11:20 am ( 05/21/2020 11:20 AM Provider Misty Vora MD Department General Internal Medicine [facility] ) Diet: Heart Healthy and Low Sodium (2gm) Add Attending Provider Instructions: Patient prefers to have discharge medications sent to [id number] [facility] [place] [address] IT IS VERY IMPORTANT TO TAKE MEDICATIONS DIRECTED TO PREVENT HEART FAILURE /SHORTNESS OF BREATH , LEGS SWELLING primary care doctor appointment Dr. Vora at [address] [place] [address] on 05/21/2020 11:20 AM REPEAT THYROID FUNCTION TEST IN 4 to 6 weeks Addtl Programming Coordinator Provider Instructions: Call 911 and go to the Emergency Room if: * You have tightness or pain in your chest that does not go away with rest or Nitroglycerin * You are very short of breath even with rest Call your doctor if any of the following symptoms or problems start or get worse: * Shortness of breath or difficulty breathing * Wake up at night short of breath * Chest pain * Cough * Swelling of your hands, fee, or legs * More fatigued or tired with your normal activity * Palpitations - sudden fast heart beats WEIGHT * Weigh yourself every morning after using the bathroom. * Use the same scale. * Wear the same amount of clothing. * Write your weight down on your chart. * Call your doctor if you gain more than 2-3 pounds in 1-2 days. MEDICATIONS * Use this discharge instruction sheet for instructions. * Take your medications at the time your doctor ordered. * Do not skip a dose of your medicines. * If you miss a dose of medicine, take as soon as possible, but DO NOT DOUBLE A DOSE. * Read your medicine information when you get home. * Know all of the side effects of your medicine. * Call your doctor's office if you have any side effects. * Be sure all of your doctors know what medicine and herbs you take (including cold, flu, and herbal medicine). * Pain Medicine: If you do not get relief from your pain, please call your doctor for help. Take the following with you to your follow-up doctor appointments: * Weight Chart * Medication List * List of questions Do not drink excessive alcohol, beer or wine. Pending Studies at Discharge: No Stand-Alone Forms: [facility], Smoking Cessation Medications and DC Order Prescriptions: New spironolactone 25 mg Tablet 25 mg PO QAM 30 Days Qty: 30 RF: 2 potassium chloride [Klor-Con M20] 20 mEq Tablet,Er Particles/Crystals 20 meq PO BID 30 Days Qty: 60 RF: 0 atorvastatin 40 mg Tablet 80 mg PO HS 30 Days Qty: 60 RF: 0 clopidogrel 75 mg Tablet 75 mg PO DAILY 30 Days Qty: 30 RF: 0 spironolactone 25 mg Tablet 12.5 mg PO DAILY 30 Days Qty: 15 RF: 0 metoprolol succinate 25 mg Tablet Extended Release 24 Hr 25 mg PO DAILY 30 Days Qty: 30 RF: 0 furosemide 40 mg Tablet 40 mg PO QAM 30 Days Qty: 30 RF: 0 aspirin 81 mg Tablet,Delayed Release (Dr/Ec) 81 mg PO QAM 30 Days Qty: 30 RF: 0 potassium chloride 20 mEq Packet 20 meq PO BID 15 Days Qty: 30 RF: 0 risperidone 0.5 mg Tablet,Disintegrating 0.5 mg PO BID 30 Days Qty: 60 RF: 0 levothyroxine [Synthroid] 50 mcg Tablet 50 mcg PO DAILYBB 30 Days Qty: 30 RF: 0 lisinopril [Zestril] 5 mg Tablet 5 mg PO QAM 30 Days Qty: 30 RF: 0 Continued nitroglycerin [Nitrostat] 0.4 mg Tablet, Sublingual 0.4 mg sublingual PRN PRN (Reason: chest pain) 30 Days Qty: 30 RF: 0 furosemide [Lasix] 40 mg tablet 40 mg PO DAILY 30 Days Qty: 30 RF: 1 atorvastatin [Lipitor] 80 mg Tablet 80 mg PO HS 30 Days Qty: 30 RF: 0 clopidogrel [Plavix] 75 mg tablet 75 mg PO DAILY Qty: 30 RF: 0 aspirin [Ecotrin Low Strength] 81 mg Tablet,Delayed Release (Dr/Ec) 81 mg PO QAM 30 Days Qty: 30 RF: 0 lisinopril [Zestril] 5 mg Tablet 5 mg PO QAM 30 Days Qty: 30 RF: 1 metoprolol succinate 25 mg Tablet Extended Release 24 Hr 12.5 mg PO DAILY 30 Days Qty: 15 RF: 1 Discharge Orders: Discharge Order (Routine); Ordered 05/15/20 Ordered By: Arnold Gaspar Admission Data Admit Date/Time: 04/24/20 19:53 Attending Provider: Arnold Gaspar Admit Provider: Patrick Sexton Primary Care Provider: PCP,NO Other Providers: Patrick Sexton ; Godfrey Lechuga ; Nancy Lagunas ; Harini Humphrey ; Timothy Donnelly ; Jesica Hansen ; Christal Crook ; Evaristo Laughlin
[2020-05-15 16:19] VITALS: BP 134/84; PULSE 86
[2020-05-15] MEDS ORDERED: POTASSIUM CHLORIDE PWD 20 MEQ PACK PO SCH (21:00)
== END 2020-05-15 17:07 | disposition home or self-care (01) | DRG 291 ==
LOC: ED 14:55 → 2S 19:53 → SUATTDRO 19:53 → 2S 21:25 → 2N 04-28 18:58 → 3E 05-02 00:15 → 2W 05-08 06:51

== ENCOUNTER 2020-06-20 01:33 | Inpatient (IN) ==
--- NOTE | 2020-06-20 01:48 | Emergency Department Note ---
Impression & Plan Pleural effusion on right, SOB (shortness of breath), Medical non-compliance ED Provider Note Name: LUZ MARINA MORALEZ Age: 70 Sex: M Arrives Via: Ambulance Informant: Patient ED Provider: Agustin Blackwell MD Chief Complaint: Shortness of breath Impression: Pleural Effusion on right Shortness of breath Medical Non-Compliance Medical Decision Makin yr old male with extensive history including schizophrenia, CAD, Afib, CHF, HTN, DLP, Edema, DVTs arrives with increasing shortness of breath over the last few days/weeks. He is modestly overloaded fluid gill on exam but sats are good and not in much distress on exam. He eventually admits he has not been taking any of his medications, similar to what landed him in hospital just over a month ago. He clearly is incapable of caring for self a home as this is becoming recurrent issue and he does not seem to grasp the dangers of not caring for himself/taking his medications. CXR with recurrent right pleural effusion which had resolved after last trip. No ct imaging recently thus this was done without acute findings other than effusion. No wbc elevation nor fever thus I favor atelectasis rather than any pneumonia and will hold off on abx. He is not having ACS. Reviewed with Hospitalist and will bring in for further management. I opted not to give any IV lasix as previous admission this sent him in to acute renal failure. While history DVTs, and not on anticoagulation, his symptoms are not consistent with PE, he is not hypoxic, his HR was in 80s on my evaluation. Prior Medical Record and Triage/Nursing Notes reviewed by Me Additional history obtained from chart Differentials:Reactive airway disease, pneumonia, pneumothorax, COPD, CHF, infections, cardiac ischemia, pulmonary embolism, musculoskeletal, gastrointestinal, as well as other pathologies. Vital Signs: reviewed and remarkable for HTN Interventions: [place] Labs:Reviewed and remarkable for no significant abnormalities Imaging:X ray results are stated below per my interpretation: Chest: 1 view: No infiltrate, no effusion, normal cardiac border. Right pleural effusion new from most recent film, recurrent compared to older films [facility] Radiologist interpretation reviewed by me: CT Chest w IV con: "CT CHEST With Contrast: Compared to 10/14/19. Right pleural effusion and mild atelectasis/pneumonitis. Mild peribronchial thi ckening. Emphysematous changes. Cardiomegaly. Trace pericardial fluid. No large central PE. Ascites. Additional incidental findings similar to prior study. Radiologist: Columba Glass M.D." EKG:Per My Interpretation: Indication Shortness of breath: NSR 81 bpm, qtc 499, with PACs. No Ischemia. Compared to EKG 05/08/20, no significant changes. Cardiac/Tele Monitoring: Cardiac Monitoring: An Order was placed for continuous cardiac monitoring. The monitor shows a rate of 80 with a normal sinus rhythm. Consults:Dr Tiana Menezes Hospitalist Plan: Disposition:Hospitalization. Condition: Fair Blood pressure:Elevated - Referred to Hospitalist Prescriptions:none PDMP: n/a History of Present Illness:70 / yr old male with extensive PMH including CAD, Parox Afib, CHF, HTN, DLP, Chronic Edema, DVT, amongst others arrives for evaluation of shortness of breath. Patient notes being short of breath for 2 years since heart attack. Over the last 5 days he feels his shortness of breath has worsened. Associated with increase in leg swelling as well as weeping from chronic weeping right leg. Denies calf pain. States he has shortness of breath worse with exertion. Better with rest. No chest pain, cough, fevers, chills, syncope, palpitations, nausea, vomiting, back pain, headache, neck pain, rashes, abdominal pain, nor other symptoms. No change in medications. He has inhaler a t home but states he was scared to use it. States this feels like when he previously had fluid on his lungs. Admits associated anxiety has increased significantly the last few weeks. ROS: See above HPI for pertinent positives & negatives. A total of 10 systems reviewed and were otherwise negative. Past Medical History:See Below Past Surgical History:See Below Family History:See Below Social History:See Below Home Medications:See Below Allergies:Horse, Tetanus toxoid Vitals:Blood Pressure: 158/100, Pulse 90, RR 29, T 36.5C, O2 100% on RA Physical Exam: GENERAL: Patient is chronically unwell appearing and in minimal distress. EYES: No scleral icterus, unremarkable pupils. ENT: Mucous membranes moist, no nasal congestion. NECK: No masses appreciated, nomeningismus, trachea is midline. RESPIRATORY: No dyspnea. Crackles and decreased bilateral bases. Mild upper wheeze. CARDIOVASCULAR: Regular rate and rhythm.No murmurs, rubs, gallops appreciated. GASTROINTESTINAL: Abdomen soft, non-tender, no peritonitis.Bowel sounds positive.No masses appreciated. BACK: No midline tenderness, no CVA tenderness EXTREMITIES: 4+ pitting, weeping edema right leg, mild edema left leg (states Right always larger than left). NEUROLOGIC: Alert and oriented, no acute motor or sensory deficits, no focal weakness, cranial nerves grossly intact. SKIN: No rash, no jaundice, no diaphoresis. PSYCH: Appropriate GCS: 15 ED Course: Times/Reassessments: Stable, breathing comfortable, sats OK Agustin Blackwell MD Past Med/Surg History Social History Smoking Status: Former smoker Number of Years Since Quit: 10; Second Hand Exposure: No; Hx Alcohol Use: Yes Alcohol type: hard liquor Hx Substance Use: No Preferred Language: Yoruba Communication Ability: Effective Engagement Mgr Required: No Beliefs That Will Affect Care: None marital status: Current Living Situation: Alone Current Living Situation Comment: apartment How many Children do You have: 0 Feels Safe at Home: Yes Allergies Allergies Allergy/AdvReac Type Severity Reaction Status Date / Time horse dander Allergy Unknown HORSE HAIR Verified 06/20/20 02:08 tetanus toxoid, adsorbed Allergy Unknown Unknown Verified 06/20/20 02:08 Home Meds Home Medications Medication Instructions Recorded Confirmed levothyroxine 50 mcg PO DAILYBB 06/20/20 06/20/20 metoprolol succinate 25 mg PO DAILY 06/20/20 06/20/20 olanzapine 5 mg PO HS 06/20/20 06/20/20 potassium chloride 20 meq PO BID 06/20/20 06/20/20 risperidone 0.5 mg PO BID 06/20/20 06/20/20 spironolactone 12.5 mg PO QAM 06/20/20 06/20/20 Previous Rx's Medication Instructions Recorded aspirin [Ecotrin Low Strength] 81 mg PO QAM 30 Days #30 tab 02/04/20 atorvastatin [Lipitor] 80 mg PO HS 30 Days #30 tab 02/04/20 clopidogrel [Plavix] 75 mg PO DAILY #30 tab 02/04/20 furosemide [Lasix] 40 mg PO DAILY 30 Days #30 tab 02/04/20 lisinopril [Zestril] 5 mg PO QAM 30 Days #30 tab 02/04/20 Results & Data (ED) Vital Signs Vital Signs - 24 hr 06/20/20 01:35 06/20/20 01:37 06/20/20 02:02 Temperature 36.5 C Temperature Source Oral Pulse Rate 86 90 91 H Pulse Rate [Right Radial] Pulse Rate from SpO2 Sensor 87 90 Respiratory Rate 15 22 20 Respiratory Effort / Characteristics Non-Labored Blood Pressure 151/101 H 151/91 H 123/91 Blood Pressure Mean 120 111 99 Pulse Oximetry 100 100 100 Oxygen Delivery Method Room Air Sepsis Recent Fever Within 48 Hours No Sepsis New/Unexplained Change in Mental Status No Sepsis Action Taken by Nursing No Action Required 06/20/20 02:30 06/20/20 03:04 06/20/20 03:30 Temperature Temperature Source Pulse Rate 89 95 H 78 Pulse Rate [Right Radial] Pulse Rate from SpO2 Sensor 90 99 H 82 Respiratory Rate 15 20 20 Respiratory Effort / Characteristics Blood Pressure 145/107 H 173/119 H 165/114 H Blood Pressure Mean 119 125 140 Pulse Oximetry 98 100 99 Oxygen Delivery Method Sepsis Recent Fever Within 48 Hours Sepsis New/Unexplained Change in Mental Status Sepsis Action Taken by Nursing 06/20/20 04:00 06/20/20 04:30 06/20/20 05:00 Temperature Temperature Source Pulse Rate 90 91 H 86 Pulse Rate [Right Radial] Pulse Rate from SpO2 Sensor 95 H 91 H 87 Respiratory Rate 20 20 18 Respiratory Effort / Characteristics Blood Pressure 154/116 H 144/93 H 172/85 H Blood Pressure Mean 128 112 108 Pulse Oximetry 94 100 100 Oxygen Delivery Method Sepsis Recent Fever Within 48 Hours Sepsis New/Unexplained Change in Mental Status Sepsis Action Taken by Nursing 06/20/20 05:23 06/20/20 05:30 06/20/20 05:31 Temperature Temperature Source Pulse Rate 85 89 Pulse Rate [Right Radial] 89 Pulse Rate from SpO2 Sensor Respiratory Rate 20 11 L 33 H Respiratory Effort / Characteristics Non-Labored Spontaneous Blood Pressure 158/100 H Blood Pressure Mean 121 Pulse Oximetry 100 Oxygen Delivery Method Room Air Sepsis Recent Fever Within 48 Hours Sepsis New/Unexplained Change in Mental Status Sepsis Action Taken by Nursing 06/20/20 05:40 06/20/20 05:50 Temperature Temperature Source Pulse Rate 100 H 90 Pulse Rate [Right Radial] Pulse Rate from SpO2 Sensor Respiratory Rate 17 29 H Respiratory Effort / Characteristics Blood Pressure Blood Pressure Mean Pulse Oximetry Oxygen Delivery Method Sepsis Recent Fever Within 48 Hours Sepsis New/Unexplained Change in Mental Status Sepsis Action Taken by Nursing Laboratory Data Result diagrams: 06/20/20 02:00 06/20/20 02:00 Lab Results 06/20/20 06/20/20 06/20/20 Range/Units 02:00 02:00 02:00 WBC 5.46 (4.8-10.8) K/uL RBC 4.28 L (4.7-6.1) M/uL Hgb 10.7 L (14.0-18.0) g/dL Hct 35.1 L (42-52) % MCV 82.0 (80-100) fL MCH 25.0 (25-34) pg MCHC 30.5 L (32-36) g/dL RDW Std Deviation 61.1 H (36.4-46.3) fL RDW Coeff of Dante 20.1 H (11.5-14.5) % Plt Count 252 (130-400) K/uL MPV 9.6 (7.4-10.4) fL Immature Gran % (Auto) 0.0 % Neut % (Auto) 71.2 % Lymph % (Auto) 13.4 % Howard % (Auto) 13.2 % Eos % (Auto) 1.8 % Baso % (Auto) 0.4 % Neut # (Auto) 3.89 (1.4-6.5) K/uL Lymph # (Auto) 0.73 L (1.2-3.4) K/uL Howard # (Auto) 0.72 H (0.11-0.59) K/uL Eos # (Auto) 0.10 (0-0.5) K/uL Baso # (Auto) 0.02 (0-0.2) K/uL Immature Gran # (Auto) 0.00 (0.00-0.02) K/uL Absolute Nucleated RBC 0.02 H (0-0) K/uL Nucleated RBC % (auto) 0.4 % Hypochromasia Present Anisocytosis Present Echinocytes 1+ PT 15.1 H (9.0-12.0) Seconds INR 1.5 H (0.9-1.1) Sodium 144 (136-145) mmol/L Potassium 3.2 L (3.5-5.1) mmol/L Chloride 116 H (98-107) mmol/L Carbon Dioxide 20 L (21-32) mmol/L Anion Gap 8.0 (3-11) BUN 25 H (7-18) mg/dl Creatinine 1.19 (0.6-1.4) mg/dl Est Cr Clr Drug Dosing 57.5 ml/min Est GFR ( Amer) 72.3 Est GFR (Non-Af Amer) 62.4 BUN/Creatinine Ratio 21.1 H (10-20) Glucose 93 (70-99) mg/dl Calcium 8.2 L (8.5-10.1) mg/dl Magnesium 2.1 (1.8-2.4) mg/dl Total Bilirubin 2.0 H (0.2-1) mg/dl Direct Bilirubin 0.7 H (0-0.2) mg/dl AST 21 (15-37) U/L ALT 23 (12-78) U/L Alkaline Phosphatase 150 H (45-117) U/L Troponin I 0.029 (0-0.045) ng/ml NT-Pro-B Natriuret Pep 9408 H (0-900) pg/ml Total Protein 7.7 (6.4-8.2) gm/dl Albumin 3.3 L (3.4-5.0) gm/dl Administered Medications Discontinued Medications Acetaminophen (Tylenol) 650 mg PO NOW STA Stop: 06/20/20 05:11 Last Admin: 06/20/20 05:35 Dose: Not Given Documented by: [id number] Albuterol (Duoneb) 3 ml NEB NOW STA Stop: 06/20/20 05:10 Last Admin: 06/20/20 05:21 Dose: 3 ml Documented by: [id number] Furosemide (Lasix) 40 mg IV NOW STA Stop: 06/20/20 04:31 Last Admin: 06/20/20 04:47 Dose: 40 mg Documented by: [id number] Ioversol (Optiray 320 100ml) 94 ml IV ONCE ONE Stop: 06/20/20 03:05 Last Admin: 06/20/20 03:04 Dose: 94 ml Documented by: [id number] Potassium Chloride (Klor-Con Pwd) 40 meq PO NOW STA Stop: 06/20/20 05:10 Last Admin: 06/20/20 05:36 Dose: 40 meq Documented by: [id number] Discharge Plan Visit Data Chief Complaint: Shortness of Breath/Dyspnea Stated Complaint: SOB ED Provider: Agustin Blackwell Discharge Problem: Pleural effusion on right, SOB (shortness of breath), Medical non-compliance Discharge Instructions Interventions: ED Discharge Assessment Last Done: 06/20/20 05:54 Forms Stand Alone Forms: My [facility] Prescriptions Prescriptions: No Action furosemide [Lasix] 40 mg tablet 40 mg PO DAILY 30 Days Qty: 30 RF: 1 atorvastatin [Lipitor] 80 mg Tablet 80 mg PO HS 30 Days Qty: 30 RF: 0 clopidogrel [Plavix] 75 mg tablet 75 mg PO DAILY Qty: 30 RF: 0 aspirin [Ecotrin Low Strength] 81 mg Tablet,Delayed Release (Dr/Ec) 81 mg PO QAM 30 Days Qty: 30 RF: 0 lisinopril [Zestril] 5 mg Tablet 5 mg PO QAM 30 Days Qty: 30 RF: 1 olanzapine 5 mg Tablet 5 mg PO HS RF: 0 levothyroxine 50 mcg Tablet 50 mcg PO DAILYBB RF: 0 risperidone 0.5 mg Tablet 0.5 mg PO BID RF: 0 potassium chloride 20 mEq Tablet Extended Release 20 meq PO BID RF: 0 spironolactone 25 mg tablet 12.5 mg PO QAM RF: 0 metoprolol succinate 25 mg tablet extended release 24 hr 25 mg PO DAILY RF: 0 Referrals Referrals: PCP,NO [Primary Care Provider] -
[2020-06-20 02:08] LABS: Basophils # (auto) 0.02 K/uL (0-0.2); Basophils % (auto) 0.4 %; Eosinophils % (auto) 1.8 %; Hematocrit (blood only) 35.1 % (42-52); Hemoglobin 10.7 g/dL (14.0-18.0); Lymphocytes # (auto) 0.73 K/uL (1.2-3.4); Lymphocytes % (auto) 13.4 %; Mean Corpuscular Hgb Conc 30.5 g/dL (32-36); Mean Platelet Volume 9.6 fL (7.4-10.4); Monocytes # (auto) 0.72 K/uL (0.11-0.59); Monocytes % (auto) 13.2 %; Neutrophils # (auto) 3.89 K/uL (1.4-6.5); Neutrophils % (auto) 71.2 %; Nucleated RBC # (auto) 0.02 K/uL (0-0); Nucleated RBC % (auto) 0.4 %; Platelet Count 252 K/uL (130-400); RDW Coefficient of Variation 20.1 % (11.5-14.5); RDW Standard Deviation 61.1 fL (36.4-46.3); Red Blood Count 4.28 M/uL (4.7-6.1); White Blood Count 5.46 K/uL (4.8-10.8)
[2020-06-20 02:23] LABS: BUN Creatinine Ratio 21.1 (10-20); Calcium 8.2 mg/dl (8.5-10.1); Creatinine Clr Calc Pharmacy 57.5 ml/min; Est GFR (African American) 72.3; Est GFR (Non-African American) 62.4; Magnesium 2.1 mg/dl (1.8-2.4); Potassium 3.2 mmol/L (3.5-5.1)
[2020-06-20 02:28] LABS: INR 1.5 (0.9-1.1); Prothrombin Time 15.1 Seconds (9.0-12.0); Troponin I 0.029 ng/ml (0-0.045)
[2020-06-20 02:34] LABS: Anisocytosis Present; Echinocytes 1+; Hypochromasia Present
[2020-06-20 02:55] LABS: Albumin Level 3.3 gm/dl (3.4-5.0); Bilirubin Direct 0.7 mg/dl (0-0.2); Total Protein 7.7 gm/dl (6.4-8.2)
[2020-06-20] MEDS ORDERED: IOVERSOL 100ml IV ONE (03:04)
[2020-06-20] MEDS ORDERED: FUROSEMIDE 40 MG/4 ML VIAL IV STA (04:30)
[2020-06-20] MEDS ORDERED: POTASSIUM CHLORIDE 20 MEQ TABCR PO STA (04:33)
[2020-06-20] MEDS ORDERED: ALBUT/IPRATROP 3MG/0.5MG NEB 3 ML VIAL NEB STA (05:09)
[2020-06-20] MEDS ORDERED: POTASSIUM CHLORIDE PWD 20 MEQ PACK PO STA (05:09)
--- NOTE | 2020-06-20 05:09 | History & Physical Report ---
Date of Service June 20, 2020 Assessment & Plan (1) Decompensated heart failure: hx chronic systolic heart failure secondary to ischemic cardiomyopathy EF 20%, TTE 2019) Secondary to medication noncompliance, hx of paranoid schizophrenia Uncontrolled hypertension, severe mitral regurgitation hx CAD status post stent hx PAF, patient NSR Poor candidate for home anticoagulation due to paranoid schizophrenia hx testicular CA sp surgery and chemotherapy chronic anemia, hemoglobin at baseline Hypothyroidism, recent TSH from April 2020 noted to be elevated at 10 Hypokalemia Functional disability, inability to care for self/take medications due to paranoia at current personal assisted residence Incessant demands for IV analgesic medications during prior admissions Past history DVT as per records Past tobacco abuse PCU Diuretic Rx facilitate home meds Replace electrolytes Recheck TSH, home levothyroxine dose may need dose adjustment PT OT eval Social service RE discharge planning Caution with IV narcotic/IV Tylenol administration given possible secondary gain (Patient will consider moving to assisted living facility given increasing need for medical supervision.) DVT prophylaxis. Lovenox subcu Full code Text document was generated using [employer] voice recognition software. It may contain grammatical or spelling errors. Kindly contact undersigned for clarification of any documentation item in question. History of Present Illness Chief Complaint: Shortness of breath Primary Care Provider: Misty Vora MD History obtained from patient and records. Medical history significant for chronic systolic heart failure secondary to ischemic cardiomyopathy EF 15-20%, TTE 2019), severe mitral regurgitation, CAD status post stent, hypertension, hx PAF, paranoid schizophrenia, past hx DVT, hx testicular CA sp surgery and chemotherapy, past tobacco abuse, chronic anemia (baseline hemoglobin of 10-11), chronic lymphedema, hypothyroidism, history chronic leg lymphedema, medication noncompliance. Recent confinement April 2020 for decompensated CHF. Patient discharged back to personal assisted. Patient noted worsening shortness of breath especially on exertion the last 5 days. Increased abdominal distention, leg swelling without pain Transient substernal pain at home a few days ago. Patient admits to not taking home Lasix because he is afraid to go to bathroom at current personal assisted residence 'because there are evil people in the bathroom." No cough symptoms. Patient consulted ER for evaluation. Patient demanding for IV pain medications for generalized pain because "tablets do not work against those devils." Medical History as above Surgical History : Appendectomy, orchiectomy Family History : Heart disease Personal/Social history : Past tobacco abuse, no EtOH intake, disabled Allergies Allergy/AdvReac Type Severity Reaction Status Date / Time horse dander Allergy Unknown HORSE HAIR Verified 06/20/20 02:08 tetanus toxoid, adsorbed Allergy Unknown Unknown Verified 06/20/20 02:08 Home Medications Home Medications Medication Instructions Recorded Confirmed Type aspirin [Ecotrin Low Strength] 81 mg PO QAM 30 Days #30 tab 02/04/20 06/20/20 Rx atorvastatin [Lipitor] 80 mg PO HS 30 Days #30 tab 02/04/20 06/20/20 Rx clopidogrel [Plavix] 75 mg PO DAILY #30 tab 02/04/20 06/20/20 Rx furosemide [Lasix] 40 mg PO DAILY 30 Days #30 tab 02/04/20 06/20/20 Rx lisinopril [Zestril] 5 mg PO QAM 30 Days #30 tab 02/04/20 06/20/20 Rx levothyroxine 50 mcg PO DAILYBB 06/20/20 06/20/20 History metoprolol succinate 25 mg PO DAILY 06/20/20 06/20/20 History olanzapine 5 mg PO HS 06/20/20 06/20/20 History potassium chloride 20 meq PO BID 06/20/20 06/20/20 History risperidone 0.5 mg PO BID 06/20/20 06/20/20 History spironolactone 12.5 mg PO QAM 06/20/20 06/20/20 History Past Med/Surg History Social History Smoking Status: Former smoker Smoking End Date: pt stated stopped smoking couple yrs ago; Number of Years Since Quit: 10; Second Hand Exposure: No; Hx Alcohol Use: No ('no alcohol in couple yrs') Hx Substance Use: No Preferred Language: Maltese Communication Ability: Effective Plant 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: No Beliefs That Will Affect Care: None marital status: Current Living Situation: Other Current Living Situation Comment: [facility] How many Children do You have: 0 Other Information That Helps Us Care for You: No Feels Safe at Home: Yes Safety Concerns: Feels Safe At This Time Review of Systems Review of Systems: As per HPI, all 10 systems reviewed, all other ROS negative Physical Exam Physical Exam: GENERAL: Comfortable, anxious and paranoid, no respiratory distress SKIN: Pallor, warm HEENT: Pale palpebral conjunctivae, no ptosis, dry buccal mucosa NECK : Supple, no tenderness CHEST : Decreased breath sounds, occasional expiratory wheezes, no tenderness HEART : RRR, systolic murmur ABDOMEN: Marked distention without overt tenderness EXTREMITIES : LE swelling (R >L), no other conspicuous deformities noted NEUROLOGIC : Coherent, no facial asymmetry, no other gross focality Results & Data Results & Data ([facility]) Vital Signs (Past 12 Hours) Vital Signs Temp Pulse Resp BP Pulse Ox 06/20/20 05:00 86 18 172/85 H 100 06/20/20 04:30 91 H 20 144/93 H 100 06/20/20 04:00 90 20 154/116 H 94 06/20/20 03:30 78 20 165/114 H 99 06/20/20 03:04 95 H 20 173/119 H 100 06/20/20 02:30 89 15 145/107 H 98 06/20/20 02:02 91 H 20 123/91 100 06/20/20 01:37 36.5 C 90 22 151/91 H 100 06/20/20 01:35 86 15 151/101 H 100 Laboratory Results Laboratory Results WBC 5.46 K/uL (4.8-10.8) 06/20/20 02:00 RBC 4.28 M/uL (4.7-6.1) L 06/20/20 02:00 Hgb 10.7 g/dL (14.0-18.0) L 06/20/20 02:00 Hct 35.1 % (42-52) L 06/20/20 02:00 MCV 82.0 fL (80-100) 06/20/20 02:00 MCH 25.0 pg (25-34) 06/20/20 02:00 MCHC 30.5 g/dL (32-36) L 06/20/20 02:00 RDW Std Deviation 61.1 fL (36.4-46.3) H 06/20/20 02:00 RDW Coeff of Dante 20.1 % (11.5-14.5) H 06/20/20 02:00 Plt Count 252 K/uL (130-400) 06/20/20 02:00 MPV 9.6 fL (7.4-10.4) 06/20/20 02:00 Immature Gran % (Auto) 0.0 % 06/20/20 02:00 Neut % (Auto) 71.2 % 06/20/20 02:00 Lymph % (Auto) 13.4 % 06/20/20 02:00 Antelope % (Auto) 13.2 % 06/20/20 02:00 Eos % (Auto) 1.8 % 06/20/20 02:00 Baso % (Auto) 0.4 % 06/20/20 02:00 Neut # (Auto) 3.89 K/uL (1.4-6.5) 06/20/20 02:00 Lymph # (Auto) 0.73 K/uL (1.2-3.4) L 06/20/20 02:00 Antelope # (Auto) 0.72 K/uL (0.11-0.59) H 06/20/20 02:00 Eos # (Auto) 0.10 K/uL (0-0.5) 06/20/20 02:00 Baso # (Auto) 0.02 K/uL (0-0.2) 06/20/20 02:00 Immature Gran # (Auto) 0.00 K/uL (0.00-0.02) 06/20/20 02:00 Absolute Nucleated RBC 0.02 K/uL (0-0) H 06/20/20 02:00 Nucleated RBC % (auto) 0.4 % 06/20/20 02:00 Hypochromasia Present 06/20/20 02:00 Anisocytosis Present 06/20/20 02:00 Echinocytes 1+ 06/20/20 02:00 PT 15.1 Seconds (9.0-12.0) H 06/20/20 02:00 INR 1.5 (0.9-1.1) H 06/20/20 02:00 Sodium 144 mmol/L (136-145) 06/20/20 02:00 Potassium 3.2 mmol/L (3.5-5.1) L 06/20/20 02:00 Chloride 116 mmol/L (98-107) H 06/20/20 02:00 Carbon Dioxide 20 mmol/L (21-32) L 06/20/20 02:00 Anion Gap 8.0 (3-11) 06/20/20 02:00 BUN 25 mg/dl (7-18) H 06/20/20 02:00 Creatinine 1.19 mg/dl (0.6-1.4) 06/20/20 02:00 Est Cr Clr Drug Dosing 57.5 ml/min 06/20/20 02:00 Est GFR ( Amer) 72.3 06/20/20 02:00 Est GFR (Non-Af Amer) 62.4 06/20/20 02:00 BUN/Creatinine Ratio 21.1 (10-20) H 06/20/20 02:00 Glucose 93 mg/dl (70-99) 06/20/20 02:00 Calcium 8.2 mg/dl (8.5-10.1) L 06/20/20 02:00 Magnesium 2.1 mg/dl (1.8-2.4) 06/20/20 02:00 Total Bilirubin 2.0 mg/dl (0.2-1) H 06/20/20 02:00 Direct Bilirubin 0.7 mg/dl (0-0.2) H 06/20/20 02:00 AST 21 U/L (15-37) 06/20/20 02:00 ALT 23 U/L (12-78) 06/20/20 02:00 Alkaline Phosphatase 150 U/L (45-117) H 06/20/20 02:00 Troponin I 0.029 ng/ml (0-0.045) 06/20/20 02:00 NT-Pro-B Natriuret Pep 9408 pg/ml (0-900) H 06/20/20 02:00 Total Protein 7.7 gm/dl (6.4-8.2) 06/20/20 02:00 Albumin 3.3 gm/dl (3.4-5.0) L 06/20/20 02:[address] chest initial read: Right pleural effusion and mild atelectasis/pneumonitis. Mild peribronchial thickening. COPD. Cardiomegaly. Trace pericardial fluid. No large central PE. Ascites. EKG as per my interpretation : Rate 80, NSR, normal axis, septal infarct, diffuse T wave abnormalities, low voltage, PVCs
[2020-06-20] MEDS ORDERED: ACETAMINOPHEN 325 MG TAB PO STA (05:10)
--- NOTE | 2020-06-20 06:28 | CT Scan Report ---
CT chest w con CT DOSE: 211.14 mGy.cm HISTORY: Dyspnea. Pleural effusion. new right pleural effusion TECHNIQUE: Multiaxial CT images of the chest were performed following the intravenous administration of contrast. A dose lowering technique was utilized adhering to the principles of ALARA. COMPARISON: 10/14/2019 FINDINGS: Mild emphysematous change. Small right pleural effusion. Trace pleural fluid left lung base . Moderate cardiomegaly. Mild pericardial effusion. Mild perihepatic ascites. No significant mediastinal or hilar adenopathy. IMPRESSION: 1. Right and to a lesser extent minimal left pleural effusion. 2. Mild bibasilar atelectasis. 3. Mild emphysematous change. 4. Cardiomegaly with a trace amount of pericardial fluid. ACT 112: Negative or not required by law. The above report was generated using voice recognition software. It may contain grammatical, syntax or spelling errors. Electronically signed by: Daniel Tyler M.D. 06/20/2020 6:27 AM
--- NOTE | 2020-06-20 06:34 | XRay Report ---
XR chest 1V portable CLINICAL HISTORY: SHOB dyspnea COMPARISON STUDY: 05/08/2020 FINDINGS: Interval increase in cardiac size. Interval small right pleural effusion. Mild increase in pulmonary vasculature. IMPRESSION: 1. Cardiomegaly. 2. Small right pleural effusion. 3. Prominent pulmonary vasculature. ACT 112: Negative or not required by law. The above report was generated using voice recognition software. It may contain grammatical, syntax or spelling errors. Electronically signed by: Daniel Tyler M.D. 06/20/2020 6:33 AM
[2020-06-20] MEDS ORDERED: PROMETHAZINE HCL 12.5 MG in SODIUM CHLORIDE 0.9% 50 ML IV PRN (06:35)
[2020-06-20] MEDS ORDERED: ACETAMINOPHEN 325 MG TAB PO PRN (06:35)
[2020-06-20] MEDS: SPIRONOLACTONE 12.5 MG TAB PO SCH ×2 (08:08→08:18)
[2020-06-20] MEDS: CLOPIDOGREL BISULFATE 75 MG TAB PO SCH (08:08)
[2020-06-20] MEDS: POTASSIUM CHLORIDE PWD 20 MEQ PACK PO SCH ×2 (08:08→20:31)
[2020-06-20] MEDS: ENOXAPARIN INJ 30 MG/0.3 ML SYR SQ SCH (08:08)
[2020-06-20] MEDS: LEVOTHYROXINE SODIUM 50 MCG TABLET PO SCH (08:08)
[2020-06-20] MEDS: ASPIRIN 81 MG ECTAB PO SCH ×2 (08:08→08:17)
[2020-06-20] MEDS: risperiDONE 0.5 MG TABLET PO SCH ×2 (08:09→20:33)
[2020-06-20] MEDS: METOPROLOL SUCC 25MG EXT REL TAB PO SCH ×2 (08:09→08:18)
[2020-06-20] MEDS: lisinopriL 5 MG TAB PO SCH (08:09)
[2020-06-20] MEDS ORDERED: POTASSIUM CHLORIDE 20 MEQ TABCR PO SCH ×2 (09:00)
[2020-06-20] MEDS ORDERED: ALBUMIN 25% 50 ML with FUROSEMIDE 40 MG IV ONE (13:00)
--- NOTE | 2020-06-20 13:40 | Electrocardiogram Report ---
Test Reason : Blood Pressure : / mmHG Vent. Rate : 081 BPM Atrial Rate : 081 BPM P-R Int : 160 ms QRS Dur : 090 ms QT Int : 430 ms P-R-T Axes : 059 065 -19 degrees QTc Int : 499 ms Sinus rhythm with Premature ventricular complexes Septal infarct (cited on or before 24-APR-2020) Abnormal ECG When compared with ECG of 08-MAY-2020 07:18, ST now depressed in Lateral leads Nonspecific T wave abnormality now evident in Inferior leads Nonspecific T wave abnormality now evident in Lateral leads Confirmed by Darian Garcia ([id number]) on 06/20/2020 1:40:02 PM Referred By: REFERRED SELF Confirmed By:Darian Garcia
[2020-06-20] MEDS: FUROSEMIDE 40 MG in SYRINGE 0 ML IV SCH ×2 (14:38→19:19)
[2020-06-20] MEDS: TRAMADOL HCL 50 MG TABLET PO PRN (14:43)
--- NOTE | 2020-06-20 17:37 | Hospitalist Progress Note ---
Date of Service June 20, 2020 Assessment & Plan (1) Acute on chronic systolic (congestive) heart failure: Present to the ER with progressive lower extremity edema and shortness of breath. Secondary to poor adherence to medication regimen Does not take any medication once discharge from the hospital CT chest on admission showed right and to a lesser extent minimal left pleural effusion. Cardiomegaly with a trace amount of pericardial fluid. CXR on admission showed interval increase in cardiac size. Interval small right pleural effusion. Mild increase in pulmonary vasculature. ProBNP elevated on admission 9408 Echo done on last admission showed mildly dilated left ventricle with severely reduced systolic function with ejection fraction 15 to 20%. Akinesis of the inferior lateral wall, basal anterolateral wall, basal to mid inferior, and basal inferior septal wall segment. Severe global hypokinesis Received IV lasix 40mg with albumin on admission Refused to take additional lasix with the albumin Changed with IV Lasix 40mg BID Continue spironolactone 12.5 mg daily Monitor BMP while on IV lasix Hx Atrial fibrillation Rate control Not on anticoagulant due to his non compliant continue metoprolol, and aspirin, Plavix Hypokalemia Potassium 3.2 on admission Continue K supplement Monitor BMP Small Right Pleural Effusion Mild Pericardial effusion CT chest on admission showed right and to a lesser extent minimal left pleural effusion. Cardiomegaly with a trace amount of pericardial fluid. Continue Lasix IV and spironolactone Will continue monitor closely Ischemic Cardiomyopathy Discussed with patient that he needs to be complaint with his med ECHO with EF 15 to 20 % Continue Metoprolol, spironolactone, Lasix and Lisinopril Not a good candidate for ICD placement due to medication noncompliant and paranoid behavior Chronic right leg lymphedema No signs of cellulitis at this time, continue to monitor Continue daily wound care Generalized Weakness PT/OT eval Fall precaution Hypothyroidism TSH 14 He has not been taking the levothyroxine since discharge Levothyroxine resumes, will continue 50 mg daily pt is known to be non compliant of medications once discharged from hospital Check TSH in 4 to 6 weeks Paranoid schizophrenia Does not take any medication at home once discharge since pt is so paranoid and believes someone changed his meds Continue risperidone Pt will benefit for vermin exterminator placement that facility can encourage him to take his medications If unable to place at a facility, maybe home health nurse can come at least 3xweekly to give him his medications DVT prophylaxis On Lovenox subq CODE STATUS Full code Disposition Continue monitor in telemetry Admission and Anticipated Discharge Date Admission Date: June 20, 2020 Subjective Pt was seen and examined Lying in bed with no distress Pt said that his breathing is much better He said that when he went home he did not take his meds He said that his bathroom has demons/evil in it He said that the meds are no good after the next day he brought them in the house because evil would switch them Pt said that he avoid to go to his bathroom to urinate he said that his legs became swollen in the last 3 days Refused to take the lasix with the albumin, but after talking to him and he was agreed to take the lasix only Denies any chest pain, palpitation and SOB Physical Exam Physical Exam: General- No acute distress Head- atraumatic Eyes- PERRL, EOMI, ENT- Poor dentition Neck- supple, no JVD Lungs- clear to auscultation Heart- regular rhythm; +murmur Abdomen- normal bowel sounds, soft, nontender Extremities- no calf tenderness, bilateral LE swelling with RLE greater than the left improved Neuro- alert, oriented x 3; PERRL, EOMI; no facial palsy; no dysarthria Skin- warm & dry Results & Data Results & Data ([facility]) Vital Signs (Past 12 Hours) Vital Signs Temp Pulse Pulse Resp BP Pulse Ox 06/20/20 16:00 76 06/20/20 12:00 36.4 C L 78 18 115/83 94 06/20/20 10:20 36.4 C L 93 H 18 146/110 H 99 06/20/20 08:00 36.4 C L 93 H 18 146/110 H 99 06/20/20 06:47 36.4 C L 96 H 23 154/110 H 99 06/20/20 06:44 93 H 06/20/20 05:50 90 29 H 06/20/20 05:40 100 H 17 06/20/20 05:31 89 33 H
[2020-06-20] MEDS: ATORVASTATIN 40 MG TAB PO SCH (20:32)
[2020-06-21] MEDS: TRAMADOL HCL 50 MG TABLET PO PRN (04:04)
[2020-06-21] MEDS: LEVOTHYROXINE SODIUM 50 MCG TABLET PO SCH (06:11)
--- NOTE | 2020-06-21 07:02 | XRay Report ---
XR chest 1V portable CLINICAL HISTORY: ffup eval, r pleural effusion pleural effusion COMPARISON STUDY: 06/20/2020 FINDINGS: Stable cardiomegaly. Unchanged small right pleural effusion. Segmental atelectasis left bas e unchanged. Upper lungs are clear. IMPRESSION: Unchanged exam. Stable cardiomegaly. Stable small right effusion. ACT 112: Negative or not required by law. The above report was generated using voice recognition software. It may contain grammatical, syntax or spelling errors. Electronically signed by: Daniel Tyler M.D. 06/21/2020 7:01 AM
[2020-06-21] MEDS: ENOXAPARIN INJ 30 MG/0.3 ML SYR SQ SCH (07:55)
[2020-06-21] MEDS: ASPIRIN 81 MG ECTAB PO SCH (07:55)
[2020-06-21] MEDS: FUROSEMIDE 40 MG in SYRINGE 0 ML IV SCH ×2 (07:57→16:41)
[2020-06-21] MEDS: SPIRONOLACTONE 12.5 MG TAB PO SCH (07:58)
[2020-06-21] MEDS: CLOPIDOGREL BISULFATE 75 MG TAB PO SCH (07:58)
[2020-06-21] MEDS: METOPROLOL SUCC 25MG EXT REL TAB PO SCH (07:59)
[2020-06-21] MEDS: lisinopriL 5 MG TAB PO SCH (07:59)
[2020-06-21] MEDS: risperiDONE 0.5 MG TABLET PO SCH ×3 (07:59→20:53)
[2020-06-21] MEDS: POTASSIUM CHLORIDE PWD 20 MEQ PACK PO SCH ×2 (08:03→20:45)
[2020-06-21 08:11] LABS: Basophils # (auto) 0.01 K/uL (0-0.2); Basophils % (auto) 0.2 %; Eosinophils # (auto) 0.14 K/uL (0-0.5); Eosinophils % (auto) 2.4 %; Hematocrit (blood only) 32.2 % (42-52); Hemoglobin 9.9 g/dL (14.0-18.0); Immature Granulocytes # (auto) 0.01 K/uL (0.00-0.02); Immature Granulocytes % (auto) 0.2 %; Lymphocytes # (auto) 0.44 K/uL (1.2-3.4); Lymphocytes % (auto) 7.6 %; Mean Corpuscular Hemoglobin 24.9 pg (25-34); Mean Corpuscular Hgb Conc 30.7 g/dL (32-36); Mean Corpuscular Volume 80.9 fL (80-100); Mean Platelet Volume 9.4 fL (7.4-10.4); Monocytes # (auto) 0.53 K/uL (0.11-0.59); Monocytes % (auto) 9.2 %; Neutrophils # (auto) 4.65 K/uL (1.4-6.5); Neutrophils % (auto) 80.4 %; Platelet Count 179 K/uL (130-400); RDW Coefficient of Variation 20.4 % (11.5-14.5); Red Blood Count 3.98 M/uL (4.7-6.1); White Blood Count 5.78 K/uL (4.8-10.8)
[2020-06-21 08:40] LABS: BUN Creatinine Ratio 22.7 (10-20); Calcium 8.5 mg/dl (8.5-10.1); Creatinine Clr Calc Pharmacy 56.9 ml/min; Est GFR (African American) 80.4; Est GFR (Non-African American) 69.4; Potassium 3.3 mmol/L (3.5-5.1)
[2020-06-21 08:47] LABS: Anisocytosis Present; Poikilocytosis Present
[2020-06-21] MEDS ORDERED: ALBUMIN 25% 50 ML with FUROSEMIDE 40 MG IV SCH (09:00)
[2020-06-21] MEDS: CIPROFLOXACIN 500 MG TAB PO SCH ×2 (12:49→20:46)
--- NOTE | 2020-06-21 19:18 | Hospitalist Progress Note ---
Date of Service June 21, 2020 Assessment & Plan (1) Acute on chronic systolic (congestive) heart failure: Present to the ER with progressive lower extremity edema and shortness of breath. Secondary to poor adherence to medication regimen Does not take any medication once discharge from the hospital CT chest on admission showed right and to a lesser extent minimal left pleural effusion. Cardiomegaly with a trace amount of pericardial fluid. CXR on admission showed interval increase in cardiac size. Interval small right pleural effusion. Mild increase in pulmonary vasculature. ProBNP elevated on admission 9408 Echo done on last admission showed mildly dilated left ventricle with severely reduced systolic function with ejection fraction 15 to 20%. Akinesis of the inferior lateral wall, basal anterolateral wall, basal to mid inferior, and basal inferior septal wall segment. Severe global hypokinesis Received IV lasix 40mg with albumin on admission Refused to take additional lasix with the albumin Continue IV Lasix 40mg BID Continue spironolactone 12.5 mg daily Monitor BMP while on IV lasix Hx Atrial fibrillation Rate control Not on anticoagulant due to his non compliant continue metoprolol, and aspirin, Plavix Hypokalemia Potassium 3.2 on admission K 3.3 today Continue K supplement Monitor BMP Small Right Pleural Effusion Mild Pericardial effusion CT chest on admission showed right and to a lesser extent minimal left pleural effusion. Cardiomegaly with a trace amount of pericardial fluid. Continue Lasix IV and spironolactone Will continue monitor closely Ischemic Cardiomyopathy Discussed with patient that he needs to be complaint with his med ECHO with EF 15 to 20 % Continue Metoprolol, spironolactone, Lasix and Lisinopril Not a good candidate for ICD placement due to medication noncompliant and paranoid behavior Chronic right leg lymphedema No signs of cellulitis at this time, continue to monitor Continue daily wound care Generalized Weakness PT/OT eval Fall precaution Hypothyroidism TSH 14 He has not been taking the levothyroxine since discharge Levothyroxine resumes, will continue 50 mg daily pt is known to be non compliant of medications once discharged from hospital Check TSH in 4 to 6 weeks Paranoid schizophrenia Does not take any medication at home once discharge since pt is so paranoid and believes someone changed his meds Continue risperidone Pt will benefit for superintendent container terminal placement that facility can encourage him to take his medications If unable to place at a facility, maybe home health nurse can come at least 3xweekly to give him his medications DVT prophylaxis On Lovenox subq CODE STATUS Full code Disposition Continue monitor in telemetry Admission and Anticipated Discharge Date Admission Date: June 20, 2020 Subjective Pt was seen an examined Lying in bed with no distress Pt said that his breathing feels better He said that he has been diuresis a lot Pt is interested to go to rehab Denies any chest pain, palpitation, dizziness and SOB Physical Exam Physical Exam: General- No acute distress Head- atraumatic Eyes- PERRL, EOMI, ENT- Poor dentition Neck- supple, no JVD Lungs- clear to auscultation Heart- regular rhythm; +murmur Abdomen- normal bowel sounds, soft, nontender Extremities- no calf tenderness, bilateral LE swelling with RLE greater than the left improved Neuro- alert, oriented x 3; PERRL, EOMI; no facial palsy; no dysarthria Skin- warm & dry Results & Data Results & Data ([facility]) Vital Signs (Past 12 Hours) Vital Signs Temp Pulse Pulse Resp BP Pulse Ox 06/21/20 15:15 36.4 C L 74 20 104/69 97 06/21/20 15:00 63 06/21/20 11:09 36.3 C L 68 18 119/75 100
[2020-06-21] MEDS: ATORVASTATIN 40 MG TAB PO SCH (20:47)
[2020-06-22] MEDS: LEVOTHYROXINE SODIUM 50 MCG TABLET PO SCH (05:15)
[2020-06-22 08:26] LABS: BUN Creatinine Ratio 23.6 (10-20); Creatinine Clr Calc Pharmacy 58.6 ml/min; Est GFR (African American) 82.2; Potassium 3.3 mmol/L (3.5-5.1)
[2020-06-22] MEDS: FUROSEMIDE 40 MG in SYRINGE 0 ML IV SCH ×2 (08:38→16:12)
[2020-06-22] MEDS: CIPROFLOXACIN 500 MG TAB PO SCH ×2 (08:38→21:03)
[2020-06-22] MEDS: ENOXAPARIN INJ 30 MG/0.3 ML SYR SQ SCH (08:39)
[2020-06-22] MEDS: ASPIRIN 81 MG ECTAB PO SCH (08:39)
[2020-06-22] MEDS: POTASSIUM CHLORIDE PWD 20 MEQ PACK PO SCH ×2 (08:39→21:04)
[2020-06-22] MEDS: CLOPIDOGREL BISULFATE 75 MG TAB PO SCH (08:40)
[2020-06-22] MEDS: risperiDONE 0.5 MG TABLET PO SCH ×2 (08:41→21:04)
[2020-06-22] MEDS: lisinopriL 5 MG TAB PO SCH (08:41)
[2020-06-22] MEDS: METOPROLOL SUCC 25MG EXT REL TAB PO SCH (08:41)
[2020-06-22] MEDS: SPIRONOLACTONE 12.5 MG TAB PO SCH (08:42)
[2020-06-22] MEDS: TRAMADOL HCL 50 MG TABLET PO PRN (15:17)
--- NOTE | 2020-06-22 18:33 | Hospitalist Progress Note ---
Date of Service June 22, 2020 Assessment & Plan (1) Acute on chronic systolic (congestive) heart failure: Present to the ER with progressive lower extremity edema and shortness of breath. Secondary to poor adherence to medication regimen Does not take any medication once discharge from the hospital CT chest on admission showed right and to a lesser extent minimal left pleural effusion. Cardiomegaly with a trace amount of pericardial fluid. CXR on admission showed interval increase in cardiac size. Interval small right pleural effusion. Mild increase in pulmonary vasculature. ProBNP elevated on admission 9408 Echo done on last admission showed mildly dilated left ventricle with severely reduced systolic function with ejection fraction 15 to 20%. Akinesis of the inferior lateral wall, basal anterolateral wall, basal to mid inferior, and basal inferior septal wall segment. Severe global hypokinesis Received IV lasix 40mg with albumin on admission Refused to take additional lasix with the albumin Continue IV Lasix 40mg BID Continue spironolactone 12.5 mg daily Monitor BMP while on IV lasix Hx Atrial fibrillation Rate control Not on anticoagulant due to his non compliant continue metoprolol, and aspirin, Plavix Hypokalemia Potassium 3.2 on admission K 3.3 today Continue K supplement Monitor BMP Small Right Pleural Effusion Mild Pericardial effusion CT chest on admission showed right and to a lesser extent minimal left pleural effusion. Cardiomegaly with a trace amount of pericardial fluid. Continue Lasix IV and spironolactone Will continue monitor closely Ischemic Cardiomyopathy Discussed with patient that he needs to be complaint with his med ECHO with EF 15 to 20 % Continue Metoprolol, spironolactone, Lasix and Lisinopril Not a good candidate for ICD placement due to medication noncompliant and paranoid behavior Chronic right leg lymphedema No signs of cellulitis at this time, continue to monitor Continue daily wound care Generalized Weakness PT/OT eval Fall precaution Hypothyroidism TSH 14 He has not been taking the levothyroxine since discharge Levothyroxine resumes, will continue 50 mg daily pt is known to be non compliant of medications once discharged from hospital Check TSH in 4 to 6 weeks Paranoid schizophrenia Does not take any medication at home once discharge since pt is so paranoid and believes someone changed his meds Continue risperidone Pt will benefit for terminal press operator placement that facility can encourage him to take his medications If unable to place at a facility, maybe home health nurse can come at least 3xweekly to give him his medications DVT prophylaxis On Lovenox subq CODE STATUS Full code Disposition Continue monitor in telemetry Admission and Anticipated Discharge Date Admission Date: June 20, 2020 Subjective Pt was seen and examined Sitting in bed with no distress Pt said that his breathing is better Denies any chest pain, palpitation and SOB Physical Exam Physical Exam: General- No acute distress Head- atraumatic Eyes- PERRL, EOMI, ENT- Poor dentition Neck- supple, no JVD Lungs- clear to auscultation Heart- regular rhythm; +murmur Abdomen- normal bowel sounds, soft, nontender Extremities- no calf tenderness, bilateral LE swelling with RLE greater than the left improved Neuro- alert, oriented x 3; PERRL, EOMI; no facial palsy; no dysarthria Skin- warm & dry Results & Data Results & Data ([facility]) Vital Signs (Past 12 Hours) Vital Signs Temp Pulse Pulse Resp BP Pulse Ox 06/22/20 15:06 36.4 C L 76 18 105/69 98 06/22/20 11:11 36.5 C 77 18 100/65 99 06/22/20 08:00 71 06/22/20 07:51 36.2 C L 73 18 106/75 97
[2020-06-22] MEDS ORDERED: ACETAMINOPHEN 1,000 MG/100 ML VIAL IV PRN (18:45)
[2020-06-22] MEDS: ATORVASTATIN 40 MG TAB PO SCH (21:04)
[2020-06-23] MEDS: LEVOTHYROXINE SODIUM 50 MCG TABLET PO SCH (05:27)
[2020-06-23 06:53] LABS: BUN Creatinine Ratio 27.2 (10-20); Calcium 7.7 mg/dl (8.5-10.1); Creatinine Clr Calc Pharmacy 53.9 ml/min; Est GFR (African American) 74.6; Est GFR (Non-African American) 64.3
[2020-06-23] MEDS: FUROSEMIDE 40 MG in SYRINGE 0 ML IV SCH ×2 (09:10→17:29)
[2020-06-23] MEDS: ASPIRIN 81 MG ECTAB PO SCH (09:10)
[2020-06-23] MEDS: METOPROLOL SUCC 25MG EXT REL TAB PO SCH (09:10)
[2020-06-23] MEDS: risperiDONE 0.5 MG TABLET PO SCH ×2 (09:11→20:13)
[2020-06-23] MEDS: ENOXAPARIN INJ 30 MG/0.3 ML SYR SQ SCH (09:11)
[2020-06-23] MEDS: SPIRONOLACTONE 12.5 MG TAB PO SCH (09:12)
[2020-06-23] MEDS: CLOPIDOGREL BISULFATE 75 MG TAB PO SCH (09:12)
[2020-06-23] MEDS: lisinopriL 5 MG TAB PO SCH (09:12)
[2020-06-23] MEDS: POTASSIUM CHLORIDE PWD 20 MEQ PACK PO SCH ×2 (09:12→20:13)
[2020-06-23] MEDS: CIPROFLOXACIN 500 MG TAB PO SCH ×2 (09:13→20:13)
--- NOTE | 2020-06-23 18:27 | Hospitalist Progress Note ---
Date of Service June 23, 2020 Assessment & Plan (1) Acute on chronic systolic (congestive) heart failure: Present to the ER with progressive lower extremity edema and shortness of breath. Secondary to poor adherence to medication regimen Does not take any medication once discharge from the hospital CT chest on admission showed right and to a lesser extent minimal left pleural effusion. Cardiomegaly with a trace amount of pericardial fluid. CXR on admission showed interval increase in cardiac size. Interval small right pleural effusion. Mild increase in pulmonary vasculature. ProBNP elevated on admission 9408 Echo done on last admission showed mildly dilated left ventricle with severely reduced systolic function with ejection fraction 15 to 20%. Akinesis of the inferior lateral wall, basal anterolateral wall, basal to mid inferior, and basal inferior septal wall segment. Severe global hypokinesis Received IV lasix 40mg with albumin on admission Refused to take additional lasix with the albumin Continue IV Lasix 40mg BID Continue spironolactone 12.5 mg daily Monitor BMP while on IV lasix Hx Atrial fibrillation Rate control Not on anticoagulant due to his non compliant continue metoprolol, and aspirin, Plavix Hypokalemia Potassium 3.2 on admission Potassium 4 today stable Monitor BMP Small Right Pleural Effusion Mild Pericardial effusion CT chest on admission showed right and to a lesser extent minimal left pleural effusion. Cardiomegaly with a trace amount of pericardial fluid. Continue Lasix IV and spironolactone clinically stable Ischemic Cardiomyopathy Discussed with patient that he needs to be complaint with his med ECHO with EF 15 to 20 % Continue Metoprolol, spironolactone, Lasix and Lisinopril Not a good candidate for ICD placement due to medication noncompliant and paranoid behavior Chronic right leg lymphedema Wound cx grew pseudomonas and E. faecalis Continue Cipro BID PO and amoxicillin added for the E. Faecalis Continue daily wound care Generalized Weakness PT/OT eval Fall precaution Hypothyroidism TSH 14 He has not been taking the levothyroxine since discharge Levothyroxine resumes, will continue 50 mg daily pt is known to be non compliant of medications once discharged from hospital Check TSH in 4 to 6 weeks Paranoid schizophrenia Does not take any medication at home once discharge since pt is so paranoid and believes someone changed his meds Continue risperidone Pt will benefit for prison placement that facility can encourage him to take his medications If unable to place at a facility, maybe home health nurse can come at least 3xweekly to give him his medications DVT prophylaxis On Lovenox subq CODE STATUS Full code Disposition Will discharge once medically stable Admission and Anticipated Discharge Date Admission Date: June 20, 2020 Subjective Pt was seen and examined Lying in bed with no distress Denies any chest pain, palpitation, dizziness and SOB Physical Exam Physical Exam: General- No acute distress Head- atraumatic Eyes- PERRL, EOMI, ENT- Poor dentition Neck- supple, no JVD Lungs- clear to auscultation Heart- regular rhythm; +murmur Abdomen- normal bowel sounds, soft, nontender Extremities- no calf tenderness, bilateral LE swelling with RLE greater than the left improved Neuro- alert, oriented x 3; PERRL, EOMI; no facial palsy; no dysarthria Skin- warm & dry Results & Data Results & Data ([facility]) Vital Signs (Past 12 Hours) Vital Signs Temp Pulse Pulse Resp BP BP Pulse Ox 06/23/20 15:13 36.7 C 84 18 102/69 100 06/23/20 14:44 96 H 06/23/20 10:57 36.4 C L 77 18 119/77 100 06/23/20 08:00 76 06/23/20 06:58 36.4 C L 72 18 114/71 99
[2020-06-23] MEDS: ATORVASTATIN 40 MG TAB PO SCH (20:13)
[2020-06-23] MEDS: TRAMADOL HCL 50 MG TABLET PO PRN (20:28)
[2020-06-23] MEDS: AMOXICILLIN 500 MG CAP PO SCH (21:09)
[2020-06-24 06:10] LABS: BUN Creatinine Ratio 32.9 (10-20); Calcium 7.5 mg/dl (8.5-10.1); Est GFR (Non-African American) 66.4; Potassium 4.3 mmol/L (3.5-5.1)
[2020-06-24] MEDS: LEVOTHYROXINE SODIUM 50 MCG TABLET PO SCH (06:11)
[2020-06-24] MEDS: CLOPIDOGREL BISULFATE 75 MG TAB PO SCH (08:29)
[2020-06-24] MEDS: METOPROLOL SUCC 25MG EXT REL TAB PO SCH (08:29)
[2020-06-24] MEDS: CIPROFLOXACIN 500 MG TAB PO SCH ×2 (08:29→21:47)
[2020-06-24] MEDS: POTASSIUM CHLORIDE PWD 20 MEQ PACK PO SCH ×2 (08:29→21:19)
[2020-06-24] MEDS: ENOXAPARIN INJ 30 MG/0.3 ML SYR SQ SCH (08:30)
[2020-06-24] MEDS: ASPIRIN 81 MG ECTAB PO SCH (08:30)
[2020-06-24] MEDS: SPIRONOLACTONE 12.5 MG TAB PO SCH (08:30)
[2020-06-24] MEDS: lisinopriL 5 MG TAB PO SCH (08:30)
[2020-06-24] MEDS: FUROSEMIDE 40 MG in SYRINGE 0 ML IV SCH ×2 (08:31→17:33)
[2020-06-24] MEDS: risperiDONE 0.5 MG TABLET PO SCH ×3 (08:31→21:25)
[2020-06-24] MEDS: AMOXICILLIN 500 MG CAP PO SCH ×3 (10:12→21:18)
--- NOTE | 2020-06-24 11:51 | Hospitalist Progress Note ---
Date of Service June 24, 2020 Assessment & Plan (1) Acute on chronic systolic (congestive) heart failure: Small Right Pleural Effusion Mild Pericardial effusion Present to the ER with progressive lower extremity edema and shortness of breath. Secondary to poor adherence to medication regimen Does not take any medication once discharged from the hospital CT chest on admission showed right and to a lesser extent minimal left pleural effusion. Cardiomegaly with a trace amount of pericardial fluid. CXR on admission showed interval increase in cardiac size. Interval small right pleural effusion. Mild increase in pulmonary vasculature. ProBNP elevated on admission 9408 Echo done on last admission showed mildly dilated left ventricle with severely reduced systolic function with ejection fraction 15 to 20%. Akinesis of the inferior lateral wall, basal anterolateral wall, basal to mid inferior, and basal inferior septal wall segment. Severe global hypokinesis Received IV lasix 40mg with albumin on admission Refused to take additional lasix with the albumin Currently on IV Lasix 40mg BID Continue spironolactone 12.5 mg daily Patient reports he does not take his lasix once discharged because he gets anxious in his bathroom. He told stories about people have in the bathroom I suggested getting a urinal that he can use at home so he won't have to go to the bathroom as often. He stated he will consider that. Hx Atrial fibrillation Rate control Not on anticoagulant due to his non compliance Continue metoprolol, and aspirin, Plavix Hypokalemia Potassium 3.2 on admission Resolved. Potassium 4.3 today Monitor BMP Ischemic Cardiomyopathy ECHO with EF 15 to 20 % Continue Metoprolol, spironolactone, Lasix and Lisinopril Not a good candidate for ICD placement due to medication noncompliant and paranoid behavior Chronic right leg lymphedema Wound cx grew pseudomonas and E. faecalis Continue Cipro BID PO and amoxicillin added for the E. Faecalis Continue daily wound care Wound healing well from exam today Complete 7 day antibiotics Hypothyroidism TSH 14 He has not been taking the levothyroxine since discharge Levothyroxine resumed, will continue 50 mcg daily Pt is known to be non compliant of medications once discharged from hospital Check TSH in 4 to 6 weeks Paranoid schizophrenia Patient's poor adherence related to this Does not take any medication at home once discharge since pt is so paranoid and believes someone changed his meds He denied having any psychiatric problems and not interested in seeing a psychiatrist Patient does not seem to have a good social support. Reports he has a brother and no other family. He is not interested in any aid with respect to this Discussed with CM. Will set up home health on discharge. Per CM, patient has occasionally refused to let home health in. Will continue to encourage patient about psychiatric needs Continue risperidone DVT prophylaxis On Lovenox subq CODE STATUS Full code Disposition Plan discharge tomorrow Admission and Anticipated Discharge Date Admission Date: June 20, 2020 Subjective Patient seen and examined Reports he feels better today compared to yesterday Still reports dyspnea on exertion which is improving Denied any chest pain, cough Denied dizziness Denied any fevers, chills, nausea, vomiting, diarrhea Physical Exam Constitutional: no acute distress Eyes: PERRL, conjunctivae normal, anicteric sclerae ENMT: external ear and nose normal, oropharynx normal Respiratory: normal respiratory effort, lungs clear to auscultation Cardiovascular: Rate/Rhythm: regular rate and regular rhythm S1-2 Musculoskeletal: Bilateral leg edema (R>>L, +1 on left; appears to have improved significantly per patient since admission) Neurologic: PERRL, EOMI, accommodation nl, no face palsy, no dysarthria Psychiatric: Orientation: alert and oriented x 3 Results & Data Results & Data ([facility]) Vital Signs (Past 12 Hours) Vital Signs Temp Pulse Pulse Pulse Resp BP Pulse Ox 06/24/20 11:16 36.4 C L 74 18 109/71 100 06/24/20 08:00 76 06/24/20 07:25 36.3 C L 80 18 135/87 100 06/24/20 04:36 36.3 C L 64 18 103/67 100 06/24/20 00:02 36.4 C L 74 18 92/59 L 95 06/24/20 00:00 71 Laboratory Results Laboratory Results - last 24 hr 06/24/20 05:20 Sodium 144 Potassium 4.3 Chloride 112 H Carbon Dioxide 27 Anion Gap 5.0 BUN 37 H Creatinine 1.13 Est Cr Clr Drug Dosing 55.0 Est GFR ( Amer) 77.0 Est GFR (Non-Af Amer) 66.4 BUN/Creatinine Ratio 32.9 H Glucose 89 Calcium 7.5 L
[2020-06-24] MEDS: TRAMADOL HCL 50 MG TABLET PO PRN (13:56)
[2020-06-24] MEDS: ATORVASTATIN 40 MG TAB PO SCH ×2 (21:18→21:25)
[2020-06-25] MEDS: LEVOTHYROXINE SODIUM 50 MCG TABLET PO SCH (06:23)
[2020-06-25 06:38] LABS: BUN Creatinine Ratio 34.2 (10-20); Calcium 8.1 mg/dl (8.5-10.1); Creatinine Clr Calc Pharmacy 54.9 ml/min; Est GFR (African American) 78.7; Est GFR (Non-African American) 67.9; Magnesium 2.1 mg/dl (1.8-2.4); Potassium 4.9 mmol/L (3.5-5.1)
--- NOTE | 2020-06-25 09:48 | Psychiatric Consultation ---
Date of Consultation June 25, 2020 Impression / Recommendations Impression Dr. Kadie Davies was directly involved in review and discussion of the patient's case and participated in medical decision making regarding treatment recommendations. RECOMMENDATIONS: 06/25 - Psychiatric consultation requested to assist with management of historical diagnosis of schizophrenia. Pt has been ordered 0.5mg of risperidone BID, which he has been refusing rather consistently during his admission thus far (took 4 total doses in his 5 day hospitalization). - Pt is well-known to our service from previous psychiatric consultations. He has consistently refused suggested medications and consistently declines for outpatient psychiatric services to be set up for him. Reviewed recommendation for consistent use of risperidone as prescribed; however, patient does not feel that he needs the medication and declines to take it. - Pt denies SI/HI, SIB, A/V hallucinations or any acute psychosis. His has been known to display intermittent paranoia, but is verbalizing commitment to taking his medications on discharge and declines safety concerns regarding discharge. He does not meet criteria for involuntarily psychiatric admission and is denying additional needs from our service. - Please reach out with any additional questions or updates. Psych History Identifying Data 70-year-old male admitted medically on 06/20/2020 after presenting to the ED with shortness of breath. Pt is well known to our hospitalist service as well as our psychiatric consult service from numerous hospital admission related to CHF and various other medical conditions. 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 Chief Complaint "Oh. It's another day. Same as before." History of Present Illness Mendoza Masterson is a 70-year-old male admitted medically on 06/20/2020 after presenting to the ED with shortness of breath. Pt has had numerous hospital admissions related to various severe medical conditions and CHF, our psychiatric consult service has been involved during many of these admissions. Pt has a documented remote history of either schizophrenia or schizotypal personality disorder. Psychiatric consultation was requested during this admission to assist with medication recommendations for management of these historical diagnoses. When last involved in the patient's case, our service had recommended scheduled BID dosing of risperidone, which patient only intermittently accepted. This medication was ordered during this current admission, and patient has only agreed to 4 doses over the course of 5 days. Pt's case was reviewed and discussed during morning report with psychiatric nurse liaison and supervising psychiatrist. Interview with the patient took place after he had been offered his morning medications, refusing risperidone. This provider attempted to explain the reasoning for risperidone being ordered; however, patient still declined to take the medication. Pt reports he is feeling better over the course of his admission, but that he still feels a little weak. Pt declines this provider's offer to discuss alternatives to risperidone. He reports that he is willing to take the remainder of his medications on discharge, but is not sure that home health services will provide much benefit. He denies safety concerns related to returning to his apartment, though he does state "my medications get messed up, there's something about the apartment." Pt was encouraged to work with home health staff on a way to adequately store and distribute medications to assist with this. Pt denied SI/HI, SIB, A/V hallucinations, and other signs of acute psychosis. Pt was encouraged to reach out to our service with any additional questions or needs. He denied any concerns at this time. Past Psychiatric History Previous Psych History: Remote history Current Psychiatric Diagnosis: Historical diagnosis of schizophrenia vs. schizotypal personality d/o Outpatient Services: None - has historically declined outpatient psychiatric services Previous Psych Admissions: Records indicate a psychiatric admission at [facility] in 2006. Diagnosed with adjustment disorder and schizotypal personality disorder. Past Medication Trials: Brief experiences with haloperidol, olanzapine, and risperidone. It is not clear if patient has ever had a decent trial of an antipsychotic medication. Allergies Allergy/AdvReac Type Severity Reaction Status Date / Time horse dander Allergy Unknown HORSE HAIR Verified 06/20/20 02:08 tetanus toxoid, adsorbed Allergy Unknown Unknown Verified 06/20/20 02:08 Home Medications Home Medications Medication Instructions Recorded Confirmed Type aspirin [Ecotrin Low Strength] 81 mg PO QAM 30 Days #30 tab 02/04/20 06/20/20 Rx atorvastatin [Lipitor] 80 mg PO HS 30 Days #30 tab 02/04/20 06/20/20 Rx clopidogrel [Plavix] 75 mg PO DAILY #30 tab 02/04/20 06/20/20 Rx lisinopril [Zestril] 5 mg PO QAM 30 Days #30 tab 02/04/20 06/20/20 Rx levothyroxine 50 mcg PO DAILYBB 06/20/20 06/20/20 History metoprolol succinate 25 mg PO DAILY 06/20/20 06/20/20 History olanzapine 5 mg PO HS 06/20/20 06/20/20 History potassium chloride 20 meq PO BID 06/20/20 06/20/20 History risperidone 0.5 mg PO BID 06/20/20 06/20/20 History spironolactone 12.5 mg PO QAM 06/20/20 06/20/20 History amoxicillin 500 mg PO TID 2 Days #6 cap 06/25/20 Rx ciprofloxacin HCl 500 mg PO BID 2 Days #4 tab 06/25/20 Rx furosemide [Lasix] 40 mg PO DAILY #30 tab 06/25/20 Rx Personal History Living Arrangements: Apartment (provided through [facility]; home health support on discharge) Marital Status: Single Patient History Medical History CAD (coronary artery disease) Cholecystitis, acute Chronic systolic CHF (congestive heart failure) (Acute) History of DVT (deep vein thrombosis) History of pancreatitis History of testicular cancer History of tobacco abuse Homelessness HTN (hypertension) (Chronic) Hypertension Hyperthyroidism Ischemic cardiomyopathy Lymphedema of right lower extremity (Acute) Mitral regurgitation Pleural effusion Schizophrenia (Acute) STEMI (ST elevation myocardial infarction) Tricuspid regurgitation Surgical History Hx of heart artery stent Status post cardiac catheterization Family History Other Unknown family medical history Social History Smoking Status: Former smoker Smoking End Date: pt stated stopped smoking couple yrs ago; Number of Years Since Quit: 10; Second Hand Exposure: No; Hx Alcohol Use: No ('no alcohol in couple yrs') Hx Substance Use: No Preferred Language: Pashto Communication Ability: Effective 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 Pt is appropriately dressed in a hospital gown. Grooming is poor. Pt appears disheveled, with long unkempt hair and lim. Eye Contact: + fair eye contact Motor Behavior: no abnormal motor movements (observed while laying in bed) Speech: + abnormal rate/rhythm/volume of speech (quiet volume, raspy voice, speaking in a whisper) Affect: + blunted affect (appearing somewhat subdued) Mood: + anxious mood (reports some anxiety about discharge) Thought Process: goal directed thought process and + concrete thought process Thought Content: + delusions (believes things get "messed up" in his apartment, specifically meds); no hopelessness Suicidal Thoughts: denies suicidal thoughts, denies suicidal plan and denies suicidal intent Homicidal Thoughts: denies homicidal thoughts Hallucinations: no auditory hallucinations and no visual hallucinations Cognition: attention grossly intact and language grossly intact Insight: + poor insight Judgement: + poor judgement Vital Signs (Past 24 Hours): Last Vital Signs Temp 36.3 C L 06/25/20 07:27 Pulse 76 06/25/20 07:27 Resp 18 06/25/20 07:27 BP 117/79 06/25/20 07:27 Pulse Ox 98 06/25/20 07:27 Review of Systems Constitutional: reports continued weakness Cardiovascular: denied Respiratory: denied Gastrointestinal: denied Neurological: denied Psychiatric: denies symptoms other than stated above Total of at least 10 systems reviewed, pertinent positives as above and in HPI. Results & Data (PSY) Medications Administered Acetaminophen (Tylenol) 650 mg PO Q4H PRN PRN Reason: Pain or Fever Stop: 07/20/20 06:34 Last Admin: 06/23/20 21:10 Dose: 650 mg Documented by: [id number] Amoxicillin (Amoxil) 500 mg PO TID COUNT INCLUDES THE [facility]; Protocol Stop: 06/30/20 20:59 Last Admin: 06/24/20 21:18 Dose: 500 mg Documented by: [id number] Admin: 06/24/20 14:31 Dose: 500 mg Documented by: [id number] Admin: 06/24/20 10:12 Dose: 500 mg Documented by: [id number] Admin: 06/23/20 21:09 Dose: 500 mg Documented by: [id number] Aspirin (Ecotrin Ectab) [facility] [place] Stop: 07/20/20 08:59 Last Admin: 06/24/20 08:30 Dose: Not Given Documented by: [id number] Admin: 06/23/20 09:10 Dose: Not Given Documented by: [id number] Admin: 06/22/20 08:39 Dose: Not Given Documented by: [id number] Admin: 06/21/20 07:55 Dose: Not Given Documented by: [id number] Admin: 06/20/20 08:17 Dose: Not Given Documented by: [id number] Atorvastatin Calcium (Lipitor) 80 mg PO HS COUNT INCLUDES THE [facility] Stop: 07/20/20 20:59 Last Admin: 06/24/20 21:25 Dose: 20 mg Documented by: [id number] Admin: 06/23/20 20:13 Dose: 20 mg Documented by: [id number] Admin: 06/22/20 21:04 Dose: 80 mg Documented by: [id number] Admin: 06/21/20 20:47 Dose: 80 mg Documented by: [id number] Admin: 06/20/20 20:32 Dose: 80 mg Documented by: [id number] Ciprofloxacin (Cipro) 500 mg PO BID MIRZA Stop: 06/28/20 11:59 Last Admin: 06/24/20 21:47 Dose: 500 mg Documented by: [id number] Admin: 06/24/20 08:29 Dose: 500 mg Documented by: [id number] Admin: 06/23/20 20:13 Dose: 500 mg Documented by: [id number] Admin: 06/23/20 09:13 Dose: 500 mg Documented by: [id number] Admin: 06/22/20 21:03 Dose: 500 mg Documented by: [id number] Admin: 06/22/20 08:38 Dose: 500 mg Documented by: [id number] Admin: 06/21/20 20:46 Dose: 500 mg Documented by: [id number] Admin: 06/21/20 12:49 Dose: 500 mg Documented by: [id number] Clopidogrel Bisulfate (Plavix) 75 mg PO DAILY MIRZA Stop: 07/20/20 08:59 Last Admin: 06/24/20 08:29 Dose: 75 mg Documented by: [id number] Admin: 06/23/20 09:12 Dose: 75 mg Documented by: [id number] Admin: 06/22/20 08:40 Dose: 75 mg Documented by: [id number] Admin: 06/21/20 07:58 Dose: 75 mg Documented by: [id number] Admin: 06/20/20 08:08 Dose: 75 mg Documented by: [id number] Enoxaparin Sodium (Lovenox) 30 mg SQ QAM MIRZA Stop: 07/20/20 08:59 Last Admin: 06/24/20 08:30 Dose: Not Given Documented by: [id number] Admin: 06/23/20 09:11 Dose: Not Given Documented by: [id number] Admin: 06/22/20 08:39 Dose: Not Given Documented by: [id number] Admin: 06/21/20 07:55 Dose: Not Given Documented by: [id number] Admin: 06/20/20 08:08 Dose: Not Given Documented by: [id number] Furosemide 40 mg/ Syringe 4 mls @ 4 mls/min IV BID17 MIRZA Stop: 07/20/20 14:14 Last Admin: 06/24/20 17:33 Dose: 4 mls/min Documented by: [id number] Admin: 06/24/20 08:31 Dose: 4 mls/min Documented by: [id number] Admin: 06/23/20 17:29 Dose: 4 mls/min Documented by: [id number] Admin: 06/23/20 09:10 Dose: 4 mls/min Documented by: [id number] Admin: 06/22/20 16:12 Dose: 4 mls/min Documented by: [id number] Admin: 06/22/20 08:38 Dose: 4 mls/min Documented by: [id number] Admin: 06/21/20 16:41 Dose: 4 mls/min Documented by: [id number] Admin: 06/21/20 07:57 Dose: 4 mls/min Documented by: [id number] Admin: 06/20/20 19:19 Dose: 4 mls/min Documented by: [id number] Admin: 06/20/20 14:38 Dose: 4 mls/min Documented by: [id number] Levothyroxine Sodium (Synthroid) 50 mcg PO DAILYBB MIRZA Stop: 07/20/20 06:34 Last Admin: 06/25/20 06:23 Dose: 50 mcg Documented by: [id number] Admin: 06/24/20 06:11 Dose: 50 mcg Documented by: [id number] Admin: 06/23/20 05:27 Dose: 50 mcg Documented by: [id number] Admin: 06/22/20 05:15 Dose: 50 mcg Documented by: [id number] Admin: 06/21/20 06:11 Dose: 50 mcg Documented by: [id number] Admin: 06/20/20 08:08 Dose: 50 mcg Documented by: [id number] Lisinopril (Zestril) 5 mg PO QAM MIRZA Stop: 07/20/20 08:59 Last Admin: 06/24/20 08:30 Dose: 5 mg Documented by: [id number] Admin: 06/23/20 09:12 Dose: 5 mg Documented by: [id number] Admin: 06/22/20 08:41 Dose: 5 mg Documented by: [id number] Admin: 06/21/20 07:59 Dose: 5 mg Documented by: [id number] Admin: 06/20/20 08:09 Dose: 5 mg Documented by: [id number] Metoprolol Succinate (Toprol Xl) 25 mg PO DAILY MIRZA Stop: 07/20/20 08:59 Last Admin: 06/24/20 08:29 Dose: 25 mg Documented by: [id number] Admin: 06/23/20 09:10 Dose: 25 mg Documented by: [id number] Admin: 06/22/20 08:41 Dose: 25 mg Documented by: [id number] Admin: 06/21/20 07:59 Dose: 25 mg Documented by: [id number] Admin: 06/20/20 08:18 Dose: Not Given Documented by: [id number] Potassium Chloride (Klor-Con Pwd) 20 meq PO BID MIRZA Stop: 07/20/20 08:59 Last Admin: 06/24/20 21:19 Dose: 20 meq Documented by: [id number] Admin: 06/24/20 08:29 Dose: 20 meq Documented by: [id number] Admin: 06/23/20 20:13 Dose: 20 meq Documented by: [id number] Admin: 06/23/20 09:12 Dose: 20 meq Documented by: [id number] Admin: 06/22/20 21:04 Dose: 20 meq Documented by: [id number] Admin: 06/22/20 08:39 Dose: 20 meq Documented by: [id number] Admin: 06/21/20 20:45 Dose: 20 meq Documented by: [id number] Admin: 06/21/20 08:03 Dose: 20 meq Documented by: [id number] Admin: 06/20/20 20:31 Dose: 20 meq Documented by: [id number] Admin: 06/20/20 08:08 Dose: 20 meq Documented by: [id number] Risperidone (Risperdal) 0.5 mg PO BID MIRZA Stop: 07/20/20 08:59 Last Admin: 06/24/20 21:25 Dose: Not Given Documented by: [id number] Admin: 06/24/20 08:31 Dose: Not Given Documented by: [id number] Admin: 06/23/20 20:13 Dose: 0.5 mg Documented by: [id number] Admin: 06/23/20 09:11 Dose: Not Given Documented by: [id number] Admin: 06/22/20 21:04 Dose: Not Given Documented by: [id number] Admin: 06/22/20 08:41 Dose: Not Given Documented by: [id number] Admin: 06/21/20 20:53 Dose: Not Given Documented by: [id number] Admin: 06/21/20 07:59 Dose: 0.5 mg Documented by: [id number] Admin: 06/20/20 20:33 Dose: 0.5 mg Documented by: [id number] Admin: 06/20/20 08:09 Dose: 0.5 mg Documented by: [id number] Spironolactone (Aldactone) 12.5 mg PO QAM MIRZA Stop: 07/20/20 08:59 Last Admin: 06/24/20 08:30 Dose: 12.5 mg Documented by: [id number] Admin: 06/23/20 09:12 Dose: 12.5 mg Documented by: [id number] Admin: 06/22/20 08:42 Dose: 12.5 mg Documented by: [id number] Admin: 06/21/20 07:58 Dose: 12.5 mg Documented by: [id number] Admin: 06/20/20 08:18 Dose: Not Given Documented by: [id number] Tramadol HCl (Ultram) 50 mg PO Q4H PRN PRN Reason: Pain Stop: 07/20/20 06:34 Last Admin: 06/24/20 13:56 Dose: 50 mg Documented by: [id number] Admin: 06/23/20 20:28 Dose: 50 mg Documented by: [id number] Coding Level of Care Code 71208 U Intl Hosp Care Lvl 1
[2020-06-25] MEDS: FUROSEMIDE 40 MG in SYRINGE 0 ML IV SCH ×2 (10:04→15:18)
[2020-06-25] MEDS: AMOXICILLIN 500 MG CAP PO SCH ×2 (10:04→15:18)
[2020-06-25] MEDS: CIPROFLOXACIN 500 MG TAB PO SCH (10:05)
[2020-06-25] MEDS: POTASSIUM CHLORIDE PWD 20 MEQ PACK PO SCH (10:05)
[2020-06-25] MEDS: lisinopriL 5 MG TAB PO SCH (10:05)
[2020-06-25] MEDS: CLOPIDOGREL BISULFATE 75 MG TAB PO SCH (10:05)
[2020-06-25] MEDS: METOPROLOL SUCC 25MG EXT REL TAB PO SCH (10:05)
[2020-06-25] MEDS: ENOXAPARIN INJ 30 MG/0.3 ML SYR SQ SCH ×2 (10:06→15:17)
[2020-06-25] MEDS: SPIRONOLACTONE 12.5 MG TAB PO SCH (10:06)
[2020-06-25] MEDS: risperiDONE 0.5 MG TABLET PO SCH (10:10)
[2020-06-25] MEDS: ASPIRIN 81 MG ECTAB PO SCH (10:11)
--- NOTE | 2020-06-25 11:06 | Hospitalist Progress Note ---
Date of Service June 25, 2020 Assessment & Plan Admission and Anticipated Discharge Date Admission Date: June 20, 2020 Results & Data Results & Data ([facility]) Vital Signs (Past 12 Hours) Vital Signs Temp Pulse Pulse Resp BP Pulse Ox 06/25/20 11:00 36.6 C 79 18 153/79 H 100 06/25/20 07:27 36.3 C L 76 18 117/79 98 06/25/20 03:44 36.5 C 70 18 112/78 100 06/25/20 00:00 83 06/24/20 23:31 36.2 C L 75 18 114/76 100
--- NOTE | 2020-06-25 14:27 | Discharge Summary ---
Date of Service June 25, 2020 Admission HPI Per Admitting Provider History obtained from patient and records. Medical history significant for chronic systolic heart failure secondary to ischemic cardiomyopathy EF 15-20%, TTE 2019), severe mitral regurgitation, CAD status post stent, hypertension, hx PAF, paranoid schizophrenia, past hx DVT, hx testicular CA sp surgery and chemotherapy, past tobacco abuse, chronic anemia (baseline hemoglobin of 10-11), chronic lymphedema, hypothyroidism, history chronic leg lymphedema, medication noncompliance. Recent confinement April 2020 for decompensated CHF. Patient discharged back to personal skilled nursing. Patient noted worsening shortness of breath especially on exertion the last 5 days. Increased abdominal distention, leg swelling without pain Transient substernal pain at home a few days ago. Patient admits to not taking home Lasix because he is afraid to go to bathroom at current personal skilled nursing residence 'because there are evil people in the bathroom." No cough symptoms. Patient consulted ER for evaluation. Patient demanding for IV pain medications for generalized pain because "tablets do not work against those devils." Medical History as above Surgical History : Appendectomy, orchiectomy Family History : Heart disease Personal/Social history : Past tobacco abuse, no EtOH intake, disabled Admission Exam Per Admitting Provider GENERAL: Comfortable, anxious and paranoid, no respiratory distress SKIN: Pallor, warm HEENT: Pale palpebral conjunctivae, no ptosis, dry buccal mucosa NECK : Supple, no tenderness CHEST : Decreased breath sounds, occasional expiratory wheezes, no tenderness HEART : RRR, systolic murmur ABDOMEN: Marked distention without overt tenderness EXTREMITIES : LE swelling (R >L), no other conspicuous deformities noted NEUROLOGIC : Coherent, no facial asymmetry, no other gross focality Principal Diagnosis Acute on chronic systolic heart failure Right leg wound Chronic right leg lymphedema Discharge Exam Constitutional no acute distress Eyes PERRL, conjunctivae normal, anicteric sclerae ENMT external ear and nose normal, oropharynx normal Respiratory normal respiratory effort, lungs clear to auscultation Cardiovascular Rate/Rhythm: regular rate and regular rhythm Musculoskeletal Chronic lymphedema RLE Good wound healing with scabs, nontender, clean dressing Neurologic PERRL, EOMI, accommodation nl, no face palsy, no dysarthria Psychiatric Orientation: alert and oriented x 3 Discharge Data Allergies Allergy/AdvReac Type Severity Reaction Status Date / Time horse dander Allergy Unknown HORSE HAIR Verified 06/20/20 02:08 tetanus toxoid, adsorbed Allergy Unknown Unknown Verified 06/20/20 02:08 Consultations 06/20/20 05:07 ED Decision to Admit Stat 06/20/20 06:35 Consult Case Management - Discharge Planning Routine 06/24/20 14:24 Consult Psychiatry Routine Ordered Studies 06/20/20 02:30 CT chest w con Urgent 1. Right and to a lesser extent minimal left pleural effusion. 2. Mild bibasilar atelectasis. 3. Mild emphysematous change. 4. Cardiomegaly with a trace amount of pericardial fluid. Hospital Course (1) Acute on chronic systolic (congestive) heart failure: Small Right Pleural Effusion Mild Pericardial effusion Presented to the ER with progressive lower extremity edema and shortness of breath. Secondary to poor adherence to medication regimen Does not take any medication once discharged from the hospital CT chest on admission showed right and to a lesser extent minimal left pleural effusion. Cardiomegaly with a trace amount of pericardial fluid. CXR on admission showed interval increase in cardiac size. Interval small right pleural effusion. Mild increase in pulmonary vasculature. ProBNP elevated on admission 9408 Echo done on last admission showed mildly dilated left ventricle with severely reduced systolic function with ejection fraction 15 to 20%. Akinesis of the inferior lateral wall, basal anterolateral wall, basal to mid inferior, and basal inferior septal wall segment. Severe global hypokinesis Treated with iv diuresis Continue spironolactone 12.5 mg daily Discharged on po lasix Patient reports he does not take his lasix once discharged because he gets anxious in his bathroom. He told stories about people having in the bathroom Hx Atrial fibrillation Rate control Not on anticoagulant due to his non compliance Continue metoprolol, and aspirin, Plavix Hypokalemia Potassium 3.2 on admission Resolved. Potassium 4.9 today Ischemic Cardiomyopathy ECHO with EF 15 to 20 % Continue Metoprolol, spironolactone, Lasix and Lisinopril Not a good candidate for ICD placement due to medication noncompliant and paranoid behavior Chronic right leg lymphedema Wound cx grew pseudomonas and E. faecalis Very good healing Continue Cipro BID PO and amoxicillin added for the E. Faecalis to complete 7 days of antibiotics Hypothyroidism TSH 14 He has not been taking the levothyroxine since discharge Continue 50 mcg levothyroxine daily Pt is known to be non compliant of medications once discharged from hospital Check TSH in 4 to 6 weeks Paranoid schizophrenia Patient's poor adherence related to this Does not take any medication at home once discharge since pt is so paranoid and believes someone changed his meds He denied having any psychiatric problems and not interested in seeing a psychiatrist Patient does not seem to have a good social support. Reports he has a brother and no other family. He is not interested in any aid with respect to this Psych recommend continuing risperidone Discussed all these with CM who will set up home health/PT Patient is at very high risk for readmission due to poor med adherence Total Time Total Time Spent Total Time Spent (In Minutes): 50 Total Time Includes: Examination of the Patient, Discharge Planning and Medication Reconciliation Discharge Plan Discharge Items Patient Disposition: Home - Home Health Services Reason For Visit: CHF Discharge Diagnosis: Acute on chronic systolic heart failure Right leg wound Chronic right leg lymphedema Activity: Resume your previous activity Non-emergency contact: Primary Care Provider Call non-emergency contact if: you have any medication questions and your symptoms worsen Follow-up/Referrals: Misty Vora MD [Physician] - 07/02/20 11:20 am (07/02/2020 11:20 AM Provider Misty Vora MD Department General Internal Medicine [facility] ) PCP,NO [Primary Care Provider] - Diet: Heart Healthy and Low Sodium (2gm) Fluids: 1800ml (7 cups) Addtl Attending Provider Instructions: Mr Maldondao You came to the hospital for worsening shortness of breath and leg swelling You were evaluated and found to be in heart failure exacerbation. You were treated with iv lasix with improvement of your symptoms You also had right leg wound infection and was treated with wound dressing and antibiotics Please take antibiotics at home to complete treatment It is very important to continue taking your lasix at home as we discussed It was a pleasure taking care of you. Pending Studies at Discharge: No Stand-Alone Forms: My ZAP[place]ANO, Smoking Cessation Medications and DC Order Prescriptions: New amoxicillin 500 mg Capsule 500 mg PO TID 2 Days Qty: 6 RF: 0 ciprofloxacin HCl 500 mg Tablet 500 mg PO BID 2 Days Qty: 4 RF: 0 furosemide [Lasix] 40 mg tablet 40 mg PO DAILY Qty: 30 RF: 0 Continued atorvastatin [Lipitor] 80 mg Tablet 80 mg PO HS 30 Days Qty: 30 RF: 0 clopidogrel [Plavix] 75 mg tablet 75 mg PO DAILY Qty: 30 RF: 0 aspirin [Ecotrin Low Strength] 81 mg Tablet,Delayed Release (Dr/Ec) 81 mg PO QAM 30 Days Qty: 30 RF: 0 lisinopril [Zestril] 5 mg Tablet 5 mg PO QAM 30 Days Qty: 30 RF: 1 olanzapine 5 mg Tablet 5 mg PO HS RF: 0 levothyroxine 50 mcg Tablet 50 mcg PO DAILYBB RF: 0 risperidone 0.5 mg Tablet 0.5 mg PO BID RF: 0 potassium chloride 20 mEq Tablet Extended Release 20 meq PO BID RF: 0 spironolactone 25 mg tablet 12.5 mg PO QAM RF: 0 metoprolol succinate 25 mg tablet extended release 24 hr 25 mg PO DAILY RF: 0 Discontinued furosemide [Lasix] 40 mg tablet 40 mg PO DAILY 30 Days Qty: 30 RF: 1 Discharge Orders: Discharge Order (Routine); Ordered 06/25/20 Ordered By: Jailene Mcgraw Admission Data Admit Date/Time: 06/20/20 05:13 Attending Provider: Jailene Mcgraw I. Admit Provider: Trung Montiel Primary Care Provider: PCP,NO Other Providers: Turng Montiel ; [facility] ; Funmi Valentine ; Nancy Lagunas ; [facility] Other Interventions: Discharge Summary Assessment (RN) Last Done: 06/25/20 13:26 DC Date/Time DO NOT enter until pt leaves facility: 06/25/20 15:55
== END 2020-06-25 15:55 | disposition home health service (06) | DRG 292 ==
LOC: ED 01:33 → SUATTDRO 05:13 → 1E 05:13 → 2S 16:29

== ENCOUNTER 2020-07-28 01:21 | Inpatient (IN) ==
--- NOTE | 2020-07-28 01:37 | Emergency Department Note ---
History of Present Illness General Chief complaint: Swelling/Edema to Extremity Stated complaint: ENLARGED SCROTUM AND LEG EDEMA Time Seen by Provider: 07/28/20 01:22 Source: patient Mode of arrival: EMS Limitations: no limitations History of Present Illness Provider complaint: Shortness of breath Onset (ago): week(s) 3 Associated symptoms: no chest pain, no fever/chills and no syncope Treatments prior to arrival: none This is a 70-year-old male who presents via EMS with complaints of increasing shortness of breath. Pt states he began noticing slightly increased dyspnea with exertion several weeks ago, but this has gotten worse in the last 3 days. Pt states he has chronic right LE edema, however yesterday it began "weeping" again. Pt also noted scrotal edema. He denies chest pain, palpitations, dizziness, syncope, trouble urinating or change in his bowel movements. Pt states he doesn't take the medications he has been prescribed. He denies any dietary change, states he isn't on a low salt diet. Patient states he is concerned he is going to because of the breathing. Patient denies any known sick contacts or exposure to any coronavirus positive individual. Patient states he does have a mild cough. Patient is a former smoker. Patient denies any alcohol use. Pt seen during a time of high acuity and national emergency pandemic while wearing PPE. Home Medications Home Medications Medication Instructions Recorded Confirmed Type No Known Home Medications 07/28/20 07/28/20 History Allergies Allergy/AdvReac Type Severity Reaction Status Date / Time horse dander Allergy Unknown Unknown Verified 07/28/20 01:51 tetanus toxoid, adsorbed Allergy Unknown Unknown Verified 07/28/20 01:51 Past Med/Surg History Medical History CAD (coronary artery disease) Cholecystitis, acute Chronic systolic CHF (congestive heart failure) History of DVT (deep vein thrombosis) History of pancreatitis History of testicular cancer History of tobacco abuse Homelessness HTN (hypertension) Hypertension Hyperthyroidism Ischemic cardiomyopathy Lymphedema of right lower extremity Mitral regurgitation Pleural effusion Schizophrenia STEMI (ST elevation myocardial infarction) Tricuspid regurgitation Surgical History Hx of heart artery stent Status post cardiac catheterization Family History Other Unknown family medical history Social History Smoking Status: Former smoker Number of Years Since Quit: 10; Second Hand Exposure: No; Do You Dip or Chew Tobacco: No; Hx Alcohol Use: No Hx Substance Use: No Preferred Language: Lao Communication Ability: Effective Instrument 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 and A total of 10 systems reviewed and were otherwise negative Physical Exam Vital Signs Vital Signs - 24 hr 07/28/20 01:37 07/28/20 02:00 07/28/20 02:31 Temperature 37.0 C Temperature Source Oral Pulse Rate 98 H 84 97 H Pulse Rate [Apical] Pulse Rate from SpO2 Sensor 86 98 H Respiratory Rate 24 21 24 Respiratory Effort / Characteristics Non-Labored Spontaneous Respiratory Depth Normal Blood Pressure 162/116 H 130/83 155/105 H Blood Pressure [Right Arm] Blood Pressure Mean 131 93 125 Blood Pressure Mean [Right Arm] Pulse Oximetry 99 98 100 Oxygen Delivery Method Room Air Room Air Room Air Sepsis New/Unexplained Change in Mental Status N/A Sepsis Action Taken by Nursing No Action Required 07/28/20 02:59 07/28/20 03:02 07/28/20 03:30 Temperature Temperature Source Pulse Rate 94 H 100 H Pulse Rate [Apical] 103 H Pulse Rate from SpO2 Sensor 94 H Respiratory Rate 24 20 24 Respiratory Effort / Characteristics Respiratory Depth Blood Pressure 155/116 H 142/111 H Blood Pressure [Right Arm] 170/107 H Blood Pressure Mean 138 118 Blood Pressure Mean [Right Arm] 128 Pulse Oximetry 99 96 Oxygen Delivery Method Room Air Room Air Sepsis New/Unexplained Change in Mental Status Sepsis Action Taken by Nursing 07/28/20 04:01 07/28/20 04:30 07/28/20 05:00 Temperature Temperature Source Pulse Rate 93 H 106 H 82 Pulse Rate [Apical] Pulse Rate from SpO2 Sensor 90 99 H 89 Respiratory Rate 20 24 21 Respiratory Effort / Characteristics Respiratory Depth Blood Pressure 141/102 H 153/106 H 134/100 Blood Pressure [Right Arm] Blood Pressure Mean 107 118 105 Blood Pressure Mean [Right Arm] Pulse Oximetry 100 98 98 Oxygen Delivery Method Room Air Room Air Room Air Sepsis New/Unexplained Change in Mental Status Sepsis Action Taken by Nursing GENERAL: alert, well appearing, well nourished, no distress, non-toxic EYE EXAM: normal conjunctiva, PERRL and EOM's grossly intact OROPHARYNX: no exudate, no erythema, lips, buccal mucosa, and tongue normal and mucous membranes are moist NECK: supple, no nuchal rigidity, no adenopathy, non-tender LUNGS: Clear but decreased to auscultation. Normal chest wall mechanics, no w/r/r HEART: no murmurs, S1 normal and S2 normal ABDOMEN: abdomen soft, non-tender, normo-active bowel sounds, no masses, no rebound or guarding. : moderate scrotal edema, no erythema or crepitus, no evidence of [place] BACK: Back is symmetrical on inspection and there is no deformity, no midline tenderness, no CVA tenderness. SKIN: no rashes and no bruising UPPER EXTREMITIES: upper extremities are grossly normal. FROM, nml pulses b/l. LOWER EXTREMITIES: 4+ pitting edema with chronic skin changes and weeping from distal RLE, dressing that was removed from his leg was saturated with yellow- tinged fluid and foul odor, FROM, nml pulses b/l. Compartments soft, no joint effusion. LLE without edema, compartments soft. NEURO EXAM: Normal sensorium, cranial nerves II-XII grossly intact, normal speech, no gross weakness of arms, no gross weakness of legs. Gross sensation intact. Course Course 0352: Pt updated on results. 0420: Case discussed with Dr. Sorensen. Administered Medications Discontinued Medications Amoxicillin (Amoxicillin 500 Mg Cap) 500 mg PO NOW STA Stop: 07/28/20 04:28 Last Admin: 07/28/20 04:35 Dose: 500 mg Documented by: [id number] Ciprofloxacin (Ciprofloxacin 500 Mg Tab) 500 mg PO NOW STA Stop: 07/28/20 04:28 Last Admin: 07/28/20 04:35 Dose: 500 mg Documented by: [id number] Acetaminophen (Ofirmev) 1,000 mg in 100 mls @ 400 mls/hr IV NOW STA Stop: 07/28/20 03:56 Last Infusion: 07/28/20 04:30 Dose: 0 mls/hr Documented by: [id number] Admin: 07/28/20 03:45 Dose: 400 mls/hr Documented by: [id number] Ioversol (Optiray 320 125ml) 125 ml IV ONCE ONE Stop: 07/28/20 03:05 Last Admin: 07/28/20 03:05 Dose: 119 ml Documented by: [id number] Morphine Sulfate (Morphine Sulfate 2 Mg/Ml Carp) 2 mg IV NOW STA Stop: 07/28/20 04:38 Last Admin: 07/28/20 04:45 Dose: 2 mg Documented by: [id number] Potassium Chloride (Potassium Chloride 20 Meq Tabcr) 40 meq PO NOW STA Stop: 07/28/20 02:29 Last Admin: 07/28/20 02:37 Dose: 40 meq Documented by: [id number] Medical Decision Making Differential Diagnosis Differential diagnoses includes but is not limited to pneumonia, bronchitis, C OPD/Asthma exacerbation, pneumothorax, pulmonary embolism, congestive heart failure, acute coronary syndrome Medical Records Attestation: I reviewed the patient's medical records. Home Medications Current Medication List: was personally reviewed by me Laboratory Data Attestation: I reviewed the patient's lab results. Result diagrams: 07/28/20 01:45 07/28/20 01:45 Lab Results 07/28/20 07/28/20 07/28/20 Range/Units 01:45 01:45 01:45 WBC 6.56 (4.8-10.8) K/uL RBC 4.56 L (4.7-6.1) M/uL Hgb 11.1 L (14.0-18.0) g/dL Hct 36.5 L (42-52) % MCV 80.0 (80-100) fL MCH 24.3 L (25-34) pg MCHC 30.4 L (32-36) g/dL RDW Std Deviation 60.9 H (36.4-46.3) fL RDW Coeff of Dante 20.7 H (11.5-14.5) % Plt Count 145 (130-400) K/uL MPV 9.9 (7.4-10.4) fL Immature Gran % (Auto) 0.2 % Neut % (Auto) 79.9 % Lymph % (Auto) 9.8 % [place] % (Auto) 8.1 % Eos % (Auto) 1.7 % Baso % (Auto) 0.3 % Neut # (Auto) 5.25 (1.4-6.5) K/uL Lymph # (Auto) 0.64 L (1.2-3.4) K/uL [place] # (Auto) 0.53 (0.11-0.59) K/uL Eos # (Auto) 0.11 (0-0.5) K/uL Baso # (Auto) 0.02 (0-0.2) K/uL Immature Gran # (Auto) 0.01 (0.00-0.02) K/uL Hypochromasia Present Anisocytosis Present PT 12.1 H (9.0-12.0) Seconds INR 1.2 H (0.9-1.1) D-Dimer 1090 H* (0-500) ug/L FEU Sodium 144 (136-145) mmol/L Potassium 2.5 L* (3.5-5.1) mmol/L Chloride 114 H (98-107) mmol/L Carbon Dioxide 21 (21-32) mmol/L Anion Gap 10.0 (3-11) BUN 21 H (7-18) mg/dl Creatinine 0.97 (0.6-1.4) mg/dl Est Cr Clr Drug Dosing 70.5 ml/min Est GFR ( Amer) 92.6 Est GFR (Non-Af Amer) 79.9 BUN/Creatinine Ratio 21.6 H (10-20) Glucose 93 (70-99) mg/dl Calcium 8.9 (8.5-10.1) mg/dl Magnesium 1.8 (1.8-2.4) mg/dl Total Bilirubin 1.8 H (0.2-1) mg/dl AST 17 (15-37) U/L ALT 16 (12-78) U/L Alkaline Phosphatase 161 H (45-117) U/L Troponin I 0.042 (0-0.045) ng/ml NT-Pro-B Natriuret Pep 8522 H (0-900) pg/ml Total Protein 8.0 (6.4-8.2) gm/dl Albumin 3.2 L (3.4-5.0) gm/dl Globulin 4.8 H (2.5-4.0) gm/dl Albumin/Globulin Ratio 0.7 L (0.9-2) Lipase 98 (73-393) U/L Imaging Data Radiologist's Impression: CTA chest: LB and very comparison made to prior study 06/20/2020. The heart is enlarged with a globular configuration. There are coronary artery calcifications. There are mild atherosclerotic changes in the thoracic aorta. Pulmonary arteries appear normal. There is no pulmonary embolism. There is a moderately sized right- sided pleural fluid collection. There are scattered bullous changes with centrilobular pattern and there is some honeycombing in the lingula. There is subsegmental atelectasis in the right lower lobe and lingula. Impression: No pulmonary embolism. Cardiomyopathy. Radiologist: William Anand MD ECG Data Attestation: I personally reviewed and interpreted this ECG as follows: Indication: + SOB/dyspnea Rate (beats per minute): 90 Rhythm: + normal sinus ECG Intervals/blocks: + IVCD and + Prolonged QT ECG [place]: + Normal ECG ST segments: + Nonspecific ST abnormalities Blood Pressure Blood Pressure Findings: Elevated blood pressure Blood Pressure Disposition: further management by hospitalist [facility] Narrative Is a 70-year-old male with a history of noncompliance and complicated past medical history who presents emergency department complaining of increased shortness of breath particular with exertion, and worsening right lower extremity edema compared to his chronic. Patient with markedly edematous right lower extremity, skin changes and early blistering resulting in weeping and soaking of his bandage. Patient very dyspneic with any attempts at movement even to transfer. Patient hemodynamically stable and not hypoxic but did report feeling improved with nasal cannula. Chest x-ray showed increased right pleural effusion. Given elevated d-dimer sent with labs, a CT angiography of the chest was performed as well. No evidence of PE or pneumonia. Patient also has chronic appearing emphysematous changes patient does admit to being a prior smoker. Patient's troponin negative, I do not suspect ACS at this point in time. On review of EMR patient with a decreased ejection fraction on his last echo, and prone to exacerbations of congestive heart failure. Given his noncompliance I feel this is more likely a contributing factor, compounded by a worsened right pleural effusion secondarily. Patient's right lower extremity in part likely chronic lymphedema as patient does not elevate his leg at rest and is not taking his diuretic. Patient also had prior wound infections, and after review of prior wound cultures, patient started on dual antibiotic therapy. Patient's other labs reassuring, patient remained hemodynamically stable in the emergency room and case was discussed with the hospitalist. Patient was made aware of all results and was in agreement with plan for additional inpatient monitoring and treatment. An order was placed for continuous cardiac monitoring. The monitor shows a rate of _94 with _normal sinus_ rhythm. Impression & Plan LOCK (dyspnea on exertion), Lymphedema of right lower extremity, Hypokalemia, Open wound of right lower extremity, Noncompliance with medications, Pleural eff usion on right Discharge Plan Visit Data Chief Complaint: Swelling/Edema to Extremity Stated Complaint: ENLARGED SCROTUM AND LEG EDEMA ED Provider: Karley Barraza Discharge Problem: LOCK (dyspnea on exertion), Lymphedema of right lower extremity, Hypokalemia, Open wound of right lower extremity, Noncompliance with medications, Pleural effusion on right Patient Disposition: Admitted As Inpatient Discharge Instructions Interventions: ED Discharge Assessment Last Done: 07/28/20 05:39 Discharge Problem: Open wound of right lower extremity Qualifiers: Encounter type: initial encounter Qualified Code(s): S81.801A - Unspecified open wound, right lower leg, initial encounter
[2020-07-28 01:58] LABS: Basophils # (auto) 0.02 K/uL (0-0.2); Basophils % (auto) 0.3 %; Eosinophils # (auto) 0.11 K/uL (0-0.5); Eosinophils % (auto) 1.7 %; Hematocrit (blood only) 36.5 % (42-52); Hemoglobin 11.1 g/dL (14.0-18.0); Immature Granulocytes # (auto) 0.01 K/uL (0.00-0.02); Immature Granulocytes % (auto) 0.2 %; Lymphocytes # (auto) 0.64 K/uL (1.2-3.4); Lymphocytes % (auto) 9.8 %; Mean Corpuscular Hemoglobin 24.3 pg (25-34); Mean Corpuscular Hgb Conc 30.4 g/dL (32-36); Mean Platelet Volume 9.9 fL (7.4-10.4); Monocytes # (auto) 0.53 K/uL (0.11-0.59); Monocytes % (auto) 8.1 %; Neutrophils # (auto) 5.25 K/uL (1.4-6.5); Neutrophils % (auto) 79.9 %; Platelet Count 145 K/uL (130-400); RDW Coefficient of Variation 20.7 % (11.5-14.5); RDW Standard Deviation 60.9 fL (36.4-46.3); Red Blood Count 4.56 M/uL (4.7-6.1); White Blood Count 6.56 K/uL (4.8-10.8)
[2020-07-28 02:06] LABS: INR 1.2 (0.9-1.1); Prothrombin Time 12.1 Seconds (9.0-12.0)
[2020-07-28 02:11] LABS: D Dimer 1090 ug/L FEU (0-500)
[2020-07-28 02:19] LABS: Anisocytosis Present; Hypochromasia Present
[2020-07-28 02:21] LABS: Albumin Globulin Ratio 0.7 (0.9-2); Albumin Level 3.2 gm/dl (3.4-5.0); BUN Creatinine Ratio 21.6 (10-20); Bilirubin,Total 1.8 mg/dl (0.2-1); Calcium 8.9 mg/dl (8.5-10.1); Creatinine Clr Calc Pharmacy 70.5 ml/min; Est GFR (African American) 92.6; Est GFR (Non-African American) 79.9; Globulin 4.8 gm/dl (2.5-4.0); Magnesium 1.8 mg/dl (1.8-2.4); Potassium 2.5 mmol/L (3.5-5.1); Troponin I 0.042 ng/ml (0-0.045)
[2020-07-28] MEDS ORDERED: POTASSIUM CHLORIDE 20 MEQ TABCR PO STA (02:28)
[2020-07-28] MEDS ORDERED: OPTIRAY 320 125ml IV ONE (03:04)
[2020-07-28] MEDS ORDERED: ACETAMINOPHEN 1,000 MG/100 ML VIAL IV STA (03:42)
[2020-07-28] MEDS ORDERED: AMOXICILLIN 500 MG CAP PO STA (04:27)
[2020-07-28] MEDS ORDERED: CIPROFLOXACIN 500 MG TAB PO STA (04:27)
[2020-07-28] MEDS ORDERED: MoRPHine SULFATE 2 MG/ML CARP IV STA (04:37)
[2020-07-28] MEDS ORDERED: POTASSIUM CHLORIDE 20 MEQ/15 ML UDC PO STA (06:17)
[2020-07-28] MEDS ORDERED: NITROGLYCERIN SL 0.4 MG/TAB TAB SL PRN (06:17)
--- NOTE | 2020-07-28 06:50 | History and Physical Report ---
DATE OF ADMISSION: 07/28/2020 CHIEF COMPLAINT: Shortness of breath, lower extremity edema. HISTORY OF PRESENT ILLNESS: This is a 70-year-old male with past medical history significant for ischemic cardiomyopathy with EF of 15% to 20%, severe mitral regurgitation, CAD status post stent, hypertension, history of paroxysmal atrial fibrillation, paranoid schizophrenia, past history of DVT, history of testicular cancer status post surgery and chemotherapy, past tobacco abuse, chronic anemia, baseline hemoglobin around 10-11, chronic lymphedema, hypothyroidism, history of chronic medication noncompliance and chronic lower extremity wounds. Presents with shortness of breath on exertion and scrotal edema and he says the right lower extremity wound was healed, but again it has opened up. The patient was recently in the hospital on 06/20/2020 to 06/25/2020, was discharged back to his home. He says he is staying in an apartment. He gets weekly grocery supply. He says he is not in contact with anyone except when he gets grocery supply every week. He says today suddenly his scrotal edema got increased and he is getting short of breath on minimal exertion and also his lower extremity wound has opened up, that is what prompted him to come to the ER. He says he gets chest pain on and off, but right now he does not have any chest pain and right now he does not have any nausea. He says appetite is okay, he swallows okay. He gets headaches, but currently no headache, he has some blurred visions. He says he sees a person front of his right eye. He says the person is blocking his vision. He says he has chronic cough. He gets alternative diarrhea and constipation. He says that he has decreased urination. He is not taking any of his medications. He is noncompliant with medications generally.Currently in the ER he is resting comfortably and hemodynamically stable, saturating fine on room air. Labs showed potassium of 2.5. His D-dimer was elevated at 1090. CTA of the chest was done, there was no PE, but shows a moderate right pleural effusion. ALLERGIES: HORSE DANDER, TETANUS TOXOID. PAST MEDICAL HISTORY: As mentioned above. PAST SURGICAL HISTORY: Cardiac catheterization, appendectomy, orchiectomy. FAMILY HISTORY: Significant for heart disease. SOCIAL HISTORY: Past tobacco abuse. No alcohol use. Disabled. REVIEW OF SYSTEMS: As per HPI. Rest of the review of systems is negative. PHYSICAL EXAMINATION: GENERAL: The patient is of moderate built, not in acute distress. VITAL SIGNS: Temperature 37, pulse 82, respiratory rate 21, blood pressure 134/100, oxygen 98% on room air. HEENT: Pupils equal, round, and reactive to light. Oral mucosa dry. NECK: No JVD, no neck masses seen. Supple. CARDIOVASCULAR: S1, S2 heard, regular rate and rhythm, no murmur, no gallop. RESPIRATORY SYSTEM: Normal AP diameter. No accessory muscle use. Mild bibasilar crackles. No wheezing. ABDOMEN: Soft, bowel sounds present. Mild distention. No guarding, no rigidity. CENTRAL NERVOUS SYSTEM: Cranial nerves II-XII grossly intact, nonfocal. EXTREMITIES: Right lower extremity chronic wound with some drainage seen. LABORATORY DATA: WBC 6.5, hemoglobin 11.1, hematocrit 36.5, platelets 145. PT 12.1, INR 1.2. D-dimer 1090. Sodium 144, potassium 2.5, chloride 114, CO2 of 21, BUN 21, creatinine 0.9, serum glucose 93, calcium 8.9, magnesium 1.8, total bilirubin 1.8, AST 17, ALT 16, alkaline phosphatase 161. Troponin I of 0.04. BNP of 1500. Lipase 90. IMAGING DATA: Chest x-ray, it looks like he does have some right pleural effusion. CT of the chest on the preliminary report, no PE. There is moderately sized right-sided pleural fluid collection. EKG: Normal sinus rhythm at a rate of 90, nonspecific ST abnormalities seen. QTc of 496. ASSESSMENT AND PLAN: This is a 70-year-old male who presents with worsening shortness of breath and lower extremity wound. 1. Tvekb-[id number]-[id number] systolic congestive heart failure. Moderate right-sided pleural effusion. No pulmonary embolism. In the ER, BNP is in the 8000s. Previous echo showed with EF of 15% to 20%. The patient is supposed to be on Aldactone and Lasix, but he is not taking any of the medications, not taking Toprol-XL and lisinopril. He has scrotal edema. His potassium is low at 2.5. We will replace the potassium and once potassium is replaced, we will start him on IV Lasix 40 daily and consult cardiology for further recommendation. We will closely monitor in tele floor. No ICD was placed because of non compliance. 2. Right pleural effusion, moderate sized,.Diuretics as above. Consulted pulmonary for possible thoracocentesis. 3. History of atrial fibrillation, rate under control, not on anticoagulation, because of noncompliance. Not taking any medications at home. We will restart his Toprol-XL, aspirin, Plavix. 4. Hypokalemia, potassium of 2.5. replacing. We will recheck labs at 10:00 a.m. today. 5. Chronic right leg lymphedema and tvbts-an-aotteod wound. Last cultures grew pseudomonas and Enterococcus. Will restart Cipro and amoxicillin. Follow the wound cultures and wound care while in the hospital. 6. Hypothyroidism. Will restart his home levothyroxine. Recheck TSH levels. 7. History of paranoid schizophrenia, not taking any medications currently. While he is in the hospital, restart his previous medication of risperidone and olanzapine. If any concern, will consult psychiatry while in the hospital. 8. Deep venous thrombosis prophylaxis, Lovenox. DISPOSITION: Closely monitor in the tele floor. Level 1 full code as per my discussion with the patient. PT and OT prior to discharge. Social service to help with discharge planning. MORALES
[2020-07-28 07:32] LABS: BUN Creatinine Ratio 23.4 (10-20); Calcium 8.2 mg/dl (8.5-10.1); Creatinine Clr Calc Pharmacy 73.5 ml/min; Est GFR (African American) 97.4; Est GFR (Non-African American) 84.1; Potassium 2.6 mmol/L (3.5-5.1)
[2020-07-28] MEDS: METOPROLOL SUCC 25MG EXT REL TAB PO SCH (07:38)
[2020-07-28] MEDS: ASPIRIN 81 MG ECTAB PO SCH (07:38)
[2020-07-28] MEDS: LEVOTHYROXINE SODIUM 50 MCG TABLET PO SCH (07:38)
[2020-07-28] MEDS: risperiDONE 0.5 MG TABLET PO SCH ×2 (07:39→22:02)
[2020-07-28] MEDS: ENOXAPARIN INJ 40 MG/0.4 ML SYR SQ SCH (07:39)
[2020-07-28] MEDS: ATORVASTATIN 40 MG TAB PO SCH (07:40)
[2020-07-28] MEDS: CLOPIDOGREL BISULFATE 75 MG TAB PO SCH (07:40)
[2020-07-28] MEDS: AMOXICILLIN 500 MG CAP PO SCH ×3 (07:40→22:02)
[2020-07-28] MEDS: POTASSIUM CHLORIDE / WTR 10 MEQ/100 ML PLCT IV SCH ×2 (07:41→08:34)
--- NOTE | 2020-07-28 07:57 | XRay Report ---
XR chest 1V portable HISTORY: Shortness of breath. COMPARISON: Chest 06/21/2020. FINDINGS: No pneumothorax. Small right pleural effusion and right base airspace opacity are not simpl y changed. A few linear densities at the left lower lobe also persists. There is mild central pulmona ry vascular congestion without overt edema. Moderate cardiomegaly is also unchanged. IMPRESSION: No change in the cardiomegaly, small right pleural effusion, and right basilar airspace opacities. ACT 112: Negative or not required by law. Electronically signed by: Srikanth Ferrell M.D. 07/28/2020 7:55 AM
[2020-07-28] MEDS: POTASSIUM CHLORIDE PWD 20 MEQ PACK PO SCH ×2 (08:34→21:57)
--- NOTE | 2020-07-28 08:49 | CT Scan Report ---
CT ANGIOGRAM OF THE CHEST CLINICAL HISTORY: Dyspnea on exertion. Elevated d-dimer. COMPARISON STUDY: Chest CT scans dated 06/20/2020 and 10/28/2016. TECHNIQUE: Following the IV administration of 119 cc of Optiray 320, CT angiogram of the chest was pe rformed from the upper abdomen to the thoracic inlet utilizing the pulmonary embolus protocol. Images are reviewed in the axial, sagittal, and coronal planes. 3-D MIPS images are created and assessed. I V contrast was administered without complication. A dose lowering technique was utilized adhering to the principles of ALARA. CT DOSE: 301.46 mGy.cm FINDINGS: Thyroid: Atrophic. Thoracic aorta: There is atherosclerotic calcification of the thoracic aorta, which is normal in farzana giovanni and demonstrates standard 3-vessel arch anatomy. The thoracic aorta is not opacified by contrast. Pulmonary vasculature: The main pulmonary arteries are dilated suggesting pulmonary artery hypertensi on. There are no filling defects identified in main, lobar, or segmental pulmonary branches to sugges t pulmonary embolus. Heart: The heart is markedly enlarged noting a moderate pericardial effusion. Reflux of contrast into the IVC and hepatic veins suggests cardiac dysfunction. The coronary arteries are densely calcified. Lungs and pleural spaces: Emphysematous change is noted. The trachea and central airways are clear. T here are small right and trace left pleural effusions with associated atelectasis. Foci of parenchyma l scarring and atelectasis are seen scattered throughout both lungs. Mediastinum: There is no mediastinal lymphadenopathy. Devika: Clear. Axillae: There is no axillary lymphadenopathy. Upper abdomen: The liver is cirrhotic in morphology and heterogeneous in attenuation. There is nodula rity of the hepatic surface contour there is markedly asymmetric atrophy of the right kidney as nick red to the left. The kidneys are only partially imaged. There is trace perihepatic ascites. There is marked distention of the azygos vein. Skeletal structures: The skeletal structures are osteopenic. Mild hyperkyphosis is noted in the thora cic spine. No lytic or blastic bony lesions are seen. Soft tissues: There is body wall edema. IMPRESSION: 1. There is no evidence of pulmonary embolus in the main, lobar, or segmental pulmonary arteries. 2. Emphysema. 3. Marked cardiomegaly and moderate pericardial effusion with evidence of cardiac dysfunction. 4. Small right and trace left pleural effusions. 5. Cirrhotic liver morphology and trace perihepatic ascites. 6. Anasarca of the body wall. 7. Additional findings as above. ACT 112: Negative or not required by law. Electronically signed by: Mulugeta Mccabe M.D. 07/28/2020 8:48 AM
--- NOTE | 2020-07-28 09:10 | Pulmonary Consultation ---
Date of Consultation July 28, 2020 Assessment & Plan (1) LOCK (dyspnea on exertion): CTA chest 07/28/2020 personally reviewed patient has mild to moderate amount of right-sided pleural effusion. Centrilobular emphysema appreciated bilateral upper lobes more on the lingula. No significant mediastinal lymphadenopathy. Minimal right lower lobe haziness this could be compression atelectasis from the pleural effusion. Patient has left inferior lingular scarring which is appreciated dating back 06/20/2020. Cardiomegaly appreciated Pleural effusion has increased in size compared to CT chest done 06/20/2020 -- Right sided pleural effusion Etiology is likely from his underlying systolic plus diastolic CHF on top of noncompliant with his medications as an outpatient. NT BNP 8522 Patient is in no acute distress at the time of examination. The fluid has increased a little bit compared to CT chest done 06/20/2020 but patient has been noncompliant with his diuretics. The best next I would be to give IV diuretics and see how he responds. I did go over that if he does not improve with Lasix then he might need thoracentesis but he says he would never want that to be done and would rather have it covered with diuresis. -- COPD with emphysema Patient does have centrilobular emphysema History of greater than [id number] smoking history Not on inhalers at home. I would recommend him to be started on a lama inhaler (Incruse) to be used on a daily basis Plan: Continue with diuresis to keep negative balance. No plan for thoracentesis. Start Incruse inhaler to be used on a daily basis Recommend psych eval if the patient is refusing treatment given that the patient has history of paranoid schizophrenia. >50% time was spent [id number] with the patient discussing diagnosis and plan of care. (2) Pleural effusion on right: (3) COPD with emphysema: History of Present Illness Attending Physician: Jailene Mcgraw MD History of Present Illness 70-year-old male with past medical history of ischemic cardiomyopathy EF 15-20%, severe MR, coronary artery disease status post stent, history of paroxysmal A. fib, paranoid schizophrenia, hypothyroidism was admitted to [facility] because of shortness of breath and edema. Pulmonology was consulted because of right-sided pleural effusion. Patient has had chronic right-sided pleural effusion dating back to August 2019. Pulmonology were consulted even at that time but he refused to have any intervention done including diuretics at that time. The pleural effusion seems to have actually increased in size compared to CT chest 06/20/2020 At the time of examination today patient states that he usually when he is sitting and not exerting himself is okay. But whenever he exerts himself he gets short of breath. It is not associated with dizziness. Denies any nausea or vomiting. No headache. No chest pain. No fever or chills. Occasional cough with clear phlegm. No hemoptysis. Social history: Greater than [id number]-earq smoking history quit 2011, used to smoke marijuana back in the days. Allergies Allergy/AdvReac Type Severity Reaction Status Date / Time horse dander Allergy Unknown Unknown Verified 07/28/20 01:51 tetanus toxoid, adsorbed Allergy Unknown Unknown Verified 07/28/20 01:51 Home Medications Home Medications Medication Instructions Recorded Confirmed Type No Known Home Medications 07/28/20 07/28/20 History Patient History Medical History CAD (coronary artery disease) Cholecystitis, acute Chronic systolic CHF (congestive heart failure) History of DVT (deep vein thrombosis) History of pancreatitis History of testicular cancer History of tobacco abuse Homelessness HTN (hypertension) Hypertension Hyperthyroidism Ischemic cardiomyopathy Lymphedema of right lower extremity Mitral regurgitation Pleural effusion Schizophrenia STEMI (ST elevation myocardial infarction) Tricuspid regurgitation Surgical History Hx of heart artery stent Status post cardiac catheterization Family History Other Unknown family medical history Social History Smoking Status: Former smoker Number of Years Since Quit: 10; Second Hand Exposure: No; Do You Dip or Chew Tobacco: No; Hx Alcohol Use: No Hx Substance Use: No Preferred Language: Botswanan Communication Ability: Effective Boiling Tub Operator Required: No Beliefs That Will Affect Care: None marital status: Single Current Living Situation: Alone Current Living Situation Comment: [facility] How many Children do You have: 0 Other Information That Helps Us Care for You: No Feels Safe at Home: Yes Safety Concerns: Feels Safe At This Time Review of Systems Review of Systems: All systems reviewed & are unremarkable except as noted in HPI & below Physical Exam Physical Exam: Constitutional: No acute distress HEENT: EOMI, PERRLA, poor dentition Respiratory system: Decreased air entry bilaterally, more decreased on the right lower lobe, no wheeze, no rhonchi, mild crackles right lower lobe CVS: S1-S2 positive, positive 2 out of 6 systolic murmur appreciated best at the apex Abdomen: Soft, nontender, nondistended, positive bowel sounds x4 Extremities: +1 pulses bilaterally radialis/ dorsalis pedis, right lower extremity lymphedema chronic, bluish hue of the left toes Neuro: Awake alert oriented x3 Psych: Normal mood and affect G/U: No Courtney Skin: no rashes, warm and dry Lymphatic: + lymphedema (Right lower extremity) Results & Data Results & Data ([facility]) Vital Signs (Past 12 Hours) Vital Signs Temp Pulse Pulse Resp BP BP Pulse Ox 07/28/20 08:19 36.7 C 87 16 141/89 H 95 07/28/20 07:56 95 H 07/28/20 06:05 36.1 C L 91 H 20 151/105 H 100 07/28/20 05:30 98 H 22 146/103 H 100 07/28/20 05:00 82 21 134/100 98 07/28/20 04:30 106 H 24 153/106 H 98 07/28/20 04:01 93 H 20 141/102 H 100 07/28/20 03:30 100 H 24 142/111 H 96 07/28/20 03:02 103 H 20 170/107 H 07/28/20 02:59 94 H 24 155/116 H 99 07/28/20 02:31 97 H 24 155/105 H 100 07/28/20 02:00 84 21 130/83 98 07/28/20 01:37 37.0 C 98 H 24 162/116 H 99 07/28/20 01:45 07/28/20 06:26 PG Care Time/CCT Total # of Minutes Spent Total Time Spent with Patient: Total time spent is greater than 50% in coordination of care (as documented) at patient's floor/unit and/or counseling patient: Coding Level of Care Code 70483 Initial Inpt Care Lvl 3 Diagnoses LOCK (dyspnea on exertion) R06.00 Pleural effusion on right J90 COPD with emphysema J43.9
[2020-07-28 10:09] LABS: Appearance Urine Clear (Clear); Bacteria Urine Automated Negative (Negative); Bilirubin Urine Negative (Negative); Blood Urine Trace (Negative); Color Urine Dark Yellow; Glucose Urine UA Negative (Negative); Ketones Urine Negative (Negative); Leukocyte Esterase Urine Negative (Negative); Nitrite Urine Negative (Negative); Protein Urine 3+ (Negative); RBC Urine Automated 0-4 /hpf (0-4); Specific Gravity Urine > 1.045 (1.000-1.030); Urobilinogen Urine Negative (Negative)
--- NOTE | 2020-07-28 10:33 | Hospitalist Progress Note ---
Date of Service July 28, 2020 Assessment & Plan (1) Noncompliance with medications: (2) Pleural effusion on right: (3) Acute on chronic systolic (congestive) heart failure: Acute on chronic systolic heart failure with right pleural effusion secondary to med noncompliance Patient does not take his meds at home When asked about this, he gives all kinds of reasons from fear to go to his bathroom, meds disappearing or meds not working at home. He also occasionally refuses certain meds in the hospital I think his psychiatric problem plays a role in this. Patient does not acknowledge he has any psychiatric problems Will continue iv diuretics (4) Hypokalemia: Refuse iv potassium ordered earlier Prescribed po potassium and counselled patient on need for repletion. Monitor and replete appropriately (5) Lymphedema of right lower extremity: (6) Chronic cutaneous venous stasis ulcer: Wound care (7) Hypothyroidism: Continue levothyroxine 50mcg daily from last admission (8) Paranoid schizophrenia: Continue risperidone 0.5mg bid from recent psych recommendations if he agrees to take this (9) COPD with emphysema: Incruse inhaler per pulm recs (10) DVT prophylaxis: Lovenox sq Admission and Anticipated Discharge Date Admission Date: July 28, 2020 Subjective Patient seen and examined He complains of right leg swelling and occasionally oozing. Complains of scrotal swelling, shortness of breath, dyspnea on exertion, chronic cough No chest pain at this time Denied any fevers, chills, nausea, vomiting Denied any dysuria, freq, urgency, hematuria Physical Exam Constitutional: + well hydrated; no acute distress Eyes: PERRL, conjunctivae normal, anicteric sclerae ENMT: external ear and nose normal, oropharynx normal Respiratory: normal respiratory effort; no respiratory distress Reduced breath sounds lung bases, no wheeze Mild basilar crackles Cardiovascular: Rate/Rhythm: regular rate and regular rhythm S1 S2 Gastrointestinal (Abdomen): normal bowel sounds, soft, nontender, no hepatosplenomegaly Musculoskeletal: Right chronic leg lymphedema with areas of erythema, ulcer. Neurologic: PERRL, EOMI, accommodation nl, no face palsy, no dysarthria Genitourinary: + scrotum abnormality (Scrotal edema) Results & Data Results & Data ([facility]) Vital Signs (Past 12 Hours) Vital Signs Temp Pulse Pulse Resp BP BP Pulse Ox 07/28/20 08:19 36.7 C 87 16 141/89 H 95 07/28/20 07:56 95 H 07/28/20 06:05 36.1 C L 91 H 20 151/105 H 100 07/28/20 05:30 98 H 22 146/103 H 100 07/28/20 05:00 82 21 134/100 98 07/28/20 04:30 106 H 24 153/106 H 98 07/28/20 04:01 93 H 20 141/102 H 100 07/28/20 03:30 100 H 24 142/111 H 96 07/28/20 03:02 103 H 20 170/107 H 07/28/20 02:59 94 H 24 155/116 H 99 07/28/20 02:31 97 H 24 155/105 H 100 07/28/20 02:00 84 21 130/83 98 07/28/20 01:37 37.0 C 98 H 24 162/116 H 99 Laboratory Results Laboratory Results - last 24 hr 07/28/20 07/28/20 07/28/20 01:45 01:45 01:45 WBC 6.56 RBC 4.56 L Hgb 11.1 L Hct 36.5 L MCV 80.0 MCH 24.3 L MCHC 30.4 L RDW Std Deviation 60.9 H RDW Coeff of Dante 20.7 H Plt Count 145 MPV 9.9 Immature Gran % (Auto) 0.2 Neut % (Auto) 79.9 Lymph % (Auto) 9.8 Cloud % (Auto) 8.1 Eos % (Auto) 1.7 Baso % (Auto) 0.3 Neut # (Auto) 5.25 Lymph # (Auto) 0.64 L Cloud # (Auto) 0.53 Eos # (Auto) 0.11 Baso # (Auto) 0.02 Immature Gran # (Auto) 0.01 Hypochromasia Present Anisocytosis Present PT 12.1 H INR 1.2 H D-Dimer 1090 H* Sodium 144 Potassium 2.5 L* Chloride 114 H Carbon Dioxide 21 Anion Gap 10.0 BUN 21 H Creatinine 0.97 Est Cr Clr Drug Dosing 70.5 Est GFR ( Amer) 92.6 Est GFR (Non-Af Amer) 79.9 BUN/Creatinine Ratio 21.6 H Glucose 93 Calcium 8.9 Magnesium 1.8 Total Bilirubin 1.8 H AST 17 ALT 16 Alkaline Phosphatase 161 H Troponin I 0.042 NT-Pro-B Natriuret Pep 8522 H Total Protein 8.0 Albumin 3.2 L Globulin 4.8 H Albumin/Globulin Ratio 0.7 L Lipase 98 Urine Color Urine Appearance Urine pH Ur Specific [place] Urine Protein Urine Glucose (UA) Urine Ketones Urine Blood Urine Nitrite Urine Bilirubin Urine Urobilinogen Ur Leukocyte Esterase Urine WBC (Auto) Urine RBC (Auto) U Hyaline Cast (Auto) U Epithel Cells (Auto) Urine Bacteria (Auto) 07/28/20 07/28/20 06:26 09:30 WBC RBC Hgb Hct MCV MCH MCHC RDW Std Deviation RDW Coeff of Dante Plt Count MPV Immature Gran % (Auto) Neut % (Auto) Lymph % (Auto) Cloud % (Auto) Eos % (Auto) Baso % (Auto) Neut # (Auto) Lymph # (Auto) Cloud # (Auto) Eos # (Auto) Baso # (Auto) Immature Gran # (Auto) Hypochromasia Anisocytosis PT INR D-Dimer Sodium 141 Potassium 2.6 L Chloride 112 H Carbon Dioxide 19 L Anion Gap 10.0 BUN 22 H Creatinine 0.93 Est Cr Clr Drug Dosing 73.5 Est GFR ( Amer) 97.4 Est GFR (Non-Af Amer) 84.1 BUN/Creatinine Ratio 23.4 H Glucose 84 Calcium 8.2 L Magnesium Total Bilirubin AST ALT Alkaline Phosphatase Troponin I NT-Pro-B Natriuret Pep Total Protein Albumin Globulin Albumin/Globulin Ratio Lipase Urine Color Dark Yellow Urine Appearance Clear Urine pH 6.0 Ur Specific [place] > 1.045 H Urine Protein 3+ H Urine Glucose (UA) Negative Urine Ketones Negative Urine Blood Trace H Urine Nitrite Negative Urine Bilirubin Negative Urine Urobilinogen Negative Ur Leukocyte Esterase Negative Urine WBC (Auto) 10-30 H Urine RBC (Auto) 0-4 U Hyaline Cast (Auto) 1-5 U Epithel Cells (Auto) 10-20 H Urine Bacteria (Auto) Negative
--- NOTE | 2020-07-28 11:44 | Cardiology Consultation ---
Date of Consultation July 28, 2020 Assessment & Plan (1) Decompensated heart failure: Patient appears have an element of decompensated heart failure. This is generally been attributed medication noncompliance. Unfortunately, this has been an ongoing problem for the patient and resulted in repeated admissions. His potassium was low. Once his potassium is repleted, we should attempt to affect a diuresis monitoring his renal function electrolytes closely. This can be accomplished with intravenous Lasix initially with return to his oral regimen prior to discharge. (2) Medical non-compliance: This seems to be the biggest barrier to his health care and has resulted in multiple readmissions. (3) A-fib: Currently in sinus rhythm. Anticoagulation has been deferred due to medication noncompliance. (4) Ischemic cardiomyopathy: Again decompensated. Overall LV function is quite poor. He generally is on a good regimen for his cardiomyopathy to include metoprolol succinate, spironolactone and lisinopril. Lisinopril not currently on his medication list, but he was previously on 5 mg of lisinopril daily in the should be restarted. He is not appear to be a good candidate for an ICD due to his mental health issues. (5) CAD (coronary artery disease): His chest pain is atypical. Do not believe he requires any additional ischemic evaluation. He will continue on aspirin and Plavix. 80 mg was previously prescribed and can be restarted. History of Present Illness Reason for Consultation: Dyspnea, congestive heart failure Requesting Physician: Franchesca Attending Physician: Jailene Mcgraw MD History of Present Illness The patient is a 62-year-old gentleman with a history of coronary disease, paroxysmal atrial fibrillation and ischemic cardiomyopathy with associated heart failure who returns to the hospital with symptoms of progressive dyspnea and concerns over a right leg wound. The patient was discharged a little over a month ago after an admission for decompensated heart failure. The patient is known to have some difficulty with medication compliance. States that after leaving the hospital he was unable to obtain his medications. He feels that there is some zombie at his residence that perhaps goes around and takes medications. He feels that they do not allow medications at his residence. In the past he has had some concerns about medicines going bad once they were opened in his residence. As such, he has not taken medications for few weeks. He has once again developed his usual symptom of dyspnea on exertion. He characterizes this as a sense of feeling like I am going to when he is active. I suspect this also involves this feeling of palpitation and tachycardia. He describes some symptoms which can be concerning for presyncope. He does not report exertional chest discomfort, but does have some symptoms of chest pain that her fleeting and not associated with activity. Allergies Allergy/AdvReac Type Severity Reaction Status Date / Time horse dander Allergy Unknown Unknown Verified 07/28/20 01:51 tetanus toxoid, adsorbed Allergy Unknown Unknown Verified 07/28/20 01:51 Home Medications Home Medications Medication Instructions Recorded Confirmed Type No Known Home Medications 07/28/20 07/28/20 History Patient History Medical History CAD (coronary artery disease) Cholecystitis, acute Chronic systolic CHF (congestive heart failure) History of DVT (deep vein thrombosis) History of pancreatitis History of testicular cancer History of tobacco abuse Homelessness HTN (hypertension) Hypertension Hyperthyroidism Ischemic cardiomyopathy Lymphedema of right lower extremity Mitral regurgitation Pleural effusion Schizophrenia STEMI (ST elevation myocardial infarction) Tricuspid regurgitation Surgical History Hx of heart artery stent Status post cardiac catheterization Family History Other Unknown family medical history Social History Smoking Status: Former smoker Number of Years Since Quit: 10; Second Hand Exposure: No; Do You Dip or Chew Tobacco: No; Hx Alcohol Use: No Hx Substance Use: No Preferred Language: Belarusian Communication Ability: Effective Jewel Diameter Gauger Required: No Beliefs That Will Affect Care: None marital status: Single Current Living Situation: Alone Current Living Situation Comment: [facility] How many Children do You have: 0 Other Information That Helps Us Care for You: No Feels Safe at Home: Yes Safety Concerns: Feels Safe At This Time Review of Systems Review of Systems: All systems reviewed & are unremarkable except as noted in HPI & below He developed some increased drainage from wound on his right leg. Poor appetite recently. Intermittent diarrhea and constipation. Physical Exam Physical Exam: The patient is alert and oriented. Mood and affect appeared normal. He answered all questions appropriately but the responses or occasionally delusional. HEENT: Pupils are equal and reactive to light and accommodation. Extraocular movements are intact. The sclerae are anicteric. Poor dentition Neuro: Cranial nerves intact Neck: Patient's neck is supple. He has palpable carotid pulses bilaterally without bruits on auscultation. There is no evidence of jugular venous distention. The thyroid is not enlarged. Lungs: Clear to auscultation bilaterally. He has good air movement without use of accessory muscles. No rales wheezes or rhonchi. Some decreased breath sounds at the right base. Cardiac: Heart demonstrates a regular rate and rhythm. Normal S1 and S2. No murmurs on examination. Pulses: The patient has palpable radial pulses bilaterally that are equal in intensity Extremities: There was no evidence of hypoperfusion. There is no cyanosis or clubbing. Lymphedema and chronic changes associated with the right lower extremity. Mild edema and venous varicosities on the left lower leg. Skin: I did not appreciate any rashes on examination today. Results & Data ([facility]) Vital Signs (Past 12 Hours) Vital Signs Temp Pulse Pulse Resp BP BP Pulse Ox 07/28/20 11:28 36.3 C L 83 16 122/85 93 07/28/20 08:19 36.7 C 87 16 141/89 H 95 07/28/20 07:56 95 H 07/28/20 06:05 36.1 C L 91 H 20 151/105 H 100 07/28/20 05:30 98 H 22 146/103 H 100 07/28/20 05:00 82 21 134/100 98 07/28/20 04:30 106 H 24 153/106 H 98 07/28/20 04:01 93 H 20 141/102 H 100 07/28/20 03:30 100 H 24 142/111 H 96 07/28/20 03:02 103 H 20 170/107 H 07/28/20 02:59 94 H 24 155/116 H 99 07/28/20 02:31 97 H 24 155/105 H 100 07/28/20 02:00 84 21 130/83 98 07/28/20 01:37 37.0 C 98 H 24 162/116 H 99 Laboratory Results Abnormal Lab Results 07/28/20 07/28/20 07/28/20 01:45 01:45 01:45 WBC 6.56 RBC 4.56 L Hgb 11.1 L Hct 36.5 L MCV 80.0 MCH 24.3 L MCHC 30.4 L RDW Std Deviation 60.9 H RDW Coeff of Dante 20.7 H Plt Count 145 MPV 9.9 Immature Gran % (Auto) 0.2 Neut % (Auto) 79.9 Lymph % (Auto) 9.8 [place] % (Auto) 8.1 Eos % (Auto) 1.7 Baso % (Auto) 0.3 Neut # (Auto) 5.25 Lymph # (Auto) 0.64 L [place] # (Auto) 0.53 Eos # (Auto) 0.11 Baso # (Auto) 0.02 Immature Gran # (Auto) 0.01 Hypochromasia Present Anisocytosis Present PT 12.1 H INR 1.2 H D-Dimer 1090 H* Sodium 144 Potassium 2.5 L* Chloride 114 H Carbon Dioxide 21 Anion Gap 10.0 BUN 21 H Creatinine 0.97 Est Cr Clr Drug Dosing 70.5 Est GFR ( Amer) 92.6 Est GFR (Non-Af Amer) 79.9 BUN/Creatinine Ratio 21.6 H Glucose 93 Calcium 8.9 Magnesium 1.8 Total Bilirubin 1.8 H AST 17 ALT 16 Alkaline Phosphatase 161 H Troponin I 0.042 NT-Pro-B Natriuret Pep 8522 H Total Protein 8.0 Albumin 3.2 L Globulin 4.8 H Albumin/Globulin Ratio 0.7 L Lipase 98 Urine Color Urine Appearance Urine pH Ur Specific [place] Urine Protein Urine Glucose (UA) Urine Ketones Urine Blood Urine Nitrite Urine Bilirubin Urine Urobilinogen Ur Leukocyte Esterase Urine WBC (Auto) Urine RBC (Auto) U Hyaline Cast (Auto) U Epithel Cells (Auto) Urine Bacteria (Auto) 07/28/20 07/28/20 06:26 09:30 WBC RBC Hgb Hct MCV MCH MCHC RDW Std Deviation RDW Coeff of Dante Plt Count MPV Immature Gran % (Auto) Neut % (Auto) Lymph % (Auto) [place] % (Auto) Eos % (Auto) Baso % (Auto) Neut # (Auto) Lymph # (Auto) [place] # (Auto) Eos # (Auto) Baso # (Auto) Immature Gran # (Auto) Hypochromasia Anisocytosis PT INR D-Dimer Sodium 141 Potassium 2.6 L Chloride 112 H Carbon Dioxide 19 L Anion Gap 10.0 BUN 22 H Creatinine 0.93 Est Cr Clr Drug Dosing 73.5 Est GFR ( Amer) 97.4 Est GFR (Non-Af Amer) 84.1 BUN/Creatinine Ratio 23.4 H Glucose 84 Calcium 8.2 L Magnesium Total Bilirubin AST ALT Alkaline Phosphatase Troponin I NT-Pro-B Natriuret Pep Total Protein Albumin Globulin Albumin/Globulin Ratio Lipase Urine Color Dark Yellow Urine Appearance Clear Urine pH 6.0 Ur Specific [place] > 1.045 H Urine Protein 3+ H Urine Glucose (UA) Negative Urine Ketones Negative Urine Blood Trace H Urine Nitrite Negative Urine Bilirubin Negative Urine Urobilinogen Negative Ur Leukocyte Esterase Negative Urine WBC (Auto) 10-30 H Urine RBC (Auto) 0-4 U Hyaline Cast (Auto) 1-5 U Epithel Cells (Auto) 10-20 H Urine Bacteria (Auto) Negative Diagnostic Findings Echocardiogram performed 04/25/2020: Severely reduced LV systolic function with ejection fraction 15-20%. Regional wall motion abnormalities. Moderately reduced RV systolic function. Moderate biatrial dilation. Moderate mitral regurgitation. Mild pulmonary hypertension. Small pericardial effusion. PG Care Time/CCT Total # of Minutes Spent Total Time Spent with Patient: Total time spent is greater than 50% in coordination of care (as documented) at patient's floor/unit and/or counseling patient: Coding Level of Care Code 04009 Initial Inpt Care Lvl 3 Diagnoses Decompensated heart failure I50.9 Medical non-compliance Z91.19 A-fib I48.91 Atrial fibrillation type: unspecified Ischemic cardiomyopathy I25.5 CAD (coronary artery disease) I25.10 (1) A-fib Atrial fibrillation type: unspecified Qualified Code(s): I48.91 - Unspecified atrial fibrillation
[2020-07-28] MEDS: UMECLIDINIUM BROMIDE 62.5MCG/BLISTER 7 PUFFS/INHALER INH SCH (12:25)
[2020-07-28] MEDS: ACETAMINOPHEN 325 MG TAB PO PRN (17:22)
[2020-07-28] MEDS ORDERED: Nursing to Pharmacy Communication SCH (17:30)
[2020-07-28] MEDS ORDERED: FUROSEMIDE 40 MG in SYRINGE 0 ML IV ONE (17:45)
--- NOTE | 2020-07-28 18:09 | Electrocardiogram Report ---
Test Reason : Blood Pressure : / mmHG Vent. Rate : 090 BPM Atrial Rate : 090 BPM P-R Int : 188 ms QRS Dur : 124 ms QT Int : 406 ms P-R-T Axes : 052 057 058 degrees QTc Int : 496 ms Normal sinus rhythm Poor R wave progression, consider anterior AK vs. lead placement vs. LVH Abnormal ECG When compared with ECG of 20-JUN-2020 01:37, Premature ventricular complexes are no longer Present ST no longer depressed in Anterior leads Nonspecific T wave abnormality, improved in Inferior leads Nonspecific T wave abnormality no longer evident in Lateral leads Confirmed by Oni Carter ([id number]) on 07/28/2020 6:08:46 PM Referred By: REFERRED SELF Confirmed By:Sawyer Carter
[2020-07-28] MEDS: OLANZapine 5 MG TABLET PO SCH (22:01)
[2020-07-28] MEDS: CIPROFLOXACIN 500 MG TAB PO SCH (22:02)
[2020-07-29] MEDS: LEVOTHYROXINE SODIUM 50 MCG TABLET PO SCH (05:33)
[2020-07-29 05:52] LABS: Basophils # (auto) 0.01 K/uL (0-0.2); Basophils % (auto) 0.1 %; Eosinophils % (auto) 1.5 %; Hematocrit (blood only) 35.8 % (42-52); Hemoglobin 10.6 g/dL (14.0-18.0); Immature Granulocytes # (auto) 0.01 K/uL (0.00-0.02); Immature Granulocytes % (auto) 0.1 %; Lymphocytes # (auto) 0.55 K/uL (1.2-3.4); Lymphocytes % (auto) 8.1 %; Mean Corpuscular Hemoglobin 23.3 pg (25-34); Mean Corpuscular Hgb Conc 29.6 g/dL (32-36); Mean Corpuscular Volume 78.7 fL (80-100); Monocytes # (auto) 0.55 K/uL (0.11-0.59); Monocytes % (auto) 8.1 %; Neutrophils # (auto) 5.55 K/uL (1.4-6.5); Neutrophils % (auto) 82.1 %; Platelet Count 125 K/uL (130-400); RDW Coefficient of Variation 20.9 % (11.5-14.5); RDW Standard Deviation 60.3 fL (36.4-46.3); Red Blood Count 4.55 M/uL (4.7-6.1); White Blood Count 6.77 K/uL (4.8-10.8)
[2020-07-29 06:25] LABS: BUN Creatinine Ratio 24.3 (10-20); Calcium 8.4 mg/dl (8.5-10.1); Creatinine Clr Calc Pharmacy 75.2 ml/min; Est GFR (Non-African American) 86.3; Potassium 3.8 mmol/L (3.5-5.1)
[2020-07-29 06:27] LABS: Hypochromasia Present; Poikilocytosis Present
[2020-07-29 06:49] LABS: T4 Free Thyroxine 1.14 ng/dl (0.8-1.6)
--- NOTE | 2020-07-29 08:28 | Hospitalist Progress Note ---
Date of Service July 29, 2020 Assessment & Plan (1) Noncompliance with medications: (2) Pleural effusion on right: (3) Acute on chronic systolic (congestive) heart failure: Acute on chronic systolic heart failure with right pleural effusion secondary to med noncompliance Patient does not take his meds at home When asked about this, he gives all kinds of reasons from fear to go to his bathroom, meds disappearing or meds not working at home. He also occasionally refuses certain meds in the hospital I think his psychiatric problem plays a role in this. Patient does not acknowledge he has any psychiatric problems Psychiatry was consulted previously, last time in June 2020, recommended risperidone, patient however declined to take it Pulmonology was consulted for right-sided pleural effusion, no plan for thoracentesis, continue IV diuretics Will continue iv diuretics Close monitoring of I's and O's, and standing daily weights (4) Hypokalemia: Monitor and replete appropriately (5) Lymphedema of right lower extremity: (6) Chronic cutaneous venous stasis ulcer: Wound care (7) Hypothyroidism: Continue levothyroxine 50mcg daily from last admission (8) Paranoid schizophrenia: Continue risperidone 0.5mg bid from recent psych recommendations if he agrees to take this (9) COPD with emphysema: Incruse inhaler per pulm yaneth (10) DVT prophylaxis: Lovenox sq Admission and Anticipated Discharge Date Admission Date: July 28, 2020 Subjective Patient is sitting up in bed, says that he still feels quite short of breath ayesha. on exertion. Says that he is responding well to Lasix, reports voiding urine about every half an hour. He also states that he feels that most of his body is in pain and inquiring about pain medications. Reviewed his chart, Tylenol as needed was ordered but never given, will discuss with nursing staff. Also discussed with patient standing weights. He feels that he could stand on a scale, therefore we will try to reinforce. Review of Systems Review of Systems: All systems reviewed & are unremarkable except as noted in HPI & below Constitutional: no fever and no chills Respiratory: + dyspnea on exertion Physical Exam Physical Exam: Constitutional: Elderly slender male, sitting up in bed, in no acute distress Eyes: PERRL, conjunctivae normal, anicteric sclerae ENMT: external ear and nose normal, oropharynx normal Respiratory: normal respiratory effort; no respiratory distress, decreased breath sounds bilaterally, more decreased on the right lower lobe, no wheeze Mild basilar crackles Cardiovascular: Rate/Rhythm: regular rate and regular rhythm S1 S2 Gastrointestinal (Abdomen): normal bowel sounds, soft, nontender to palpation Musculoskeletal: Right chronic leg lymphedema with areas of erythema, ulcer. Neurologic: PERRL, EOMI, no face palsy, no dysarthria, moves extremities spontaneously Genitourinary: + scrotum abnormality (Scrotal edema) Results & Data Results & Data ([facility]) Vital Signs (Past 12 Hours) Vital Signs Temp Pulse Pulse Pulse Resp BP Pulse Ox 07/29/20 07:00 35.9 C L 78 18 162/93 H 100 07/29/20 04:17 36.3 C L 85 21 130/91 95 07/29/20 00:25 84 07/28/20 22:38 36.8 C 90 19 127/96 97 07/28/20 22:34 83 07/28/20 20:50 36.4 C L 92 H 16 133/83 99 Laboratory Results 07/29/20 07/29/20 07/28/20 Range/Units 05:36 05:36 14:51 WBC 6.77 (4.8-10.8) K/uL RBC 4.55 L (4.7-6.1) M/uL Hgb 10.6 L (14.0-18.0) g/dL Hct 35.8 L (42-52) % MCV 78.7 L (80-100) fL MCH 23.3 L (25-34) pg MCHC 29.6 L (32-36) g/dL RDW Std Deviation 60.3 H (36.4-46.3) fL RDW Coeff of Dante 20.9 H (11.5-14.5) % Plt Count 125 L (130-400) K/uL MPV 10.0 (7.4-10.4) fL Immature Gran % (Auto) 0.1 % Neut % (Auto) 82.1 % Lymph % (Auto) 8.1 % [place] % (Auto) 8.1 % Eos % (Auto) 1.5 % Baso % (Auto) 0.1 % Neut # (Auto) 5.55 (1.4-6.5) K/uL Lymph # (Auto) 0.55 L (1.2-3.4) K/uL [place] # (Auto) 0.55 (0.11-0.59) K/uL Eos # (Auto) 0.10 (0-0.5) K/uL Baso # (Auto) 0.01 (0-0.2) K/uL Immature Gran # (Auto) 0.01 (0.00-0.02) K/uL Hypochromasia Present Poikilocytosis Present Sodium 145 (136-145) mmol/L Potassium 3.8 3.4 L D (3.5-5.1) mmol/L Chloride 118 H (98-107) mmol/L Carbon Dioxide 18 L (21-32) mmol/L Anion Gap 9.0 (3-11) BUN 22 H (7-18) mg/dl Creatinine 0.91 (0.6-1.4) mg/dl Est Cr Clr Drug Dosing 75.2 ml/min Est GFR ( Amer) 100.0 Est GFR (Non-Af Amer) 86.3 BUN/Creatinine Ratio 24.3 H (10-20) Glucose 83 (70-99) mg/dl Calcium 8.4 L (8.5-10.1) mg/dl Magnesium 2.0 (1.8-2.4) mg/dl TSH 13.000 H (0.300-4.500) uIu/ml Free T4 1.14 (0.8-1.6) ng/dl Urine Color Urine Appearance (Clear) Urine pH (4.5-7.5) Ur Specific [place] (1.000-1.030) Urine Protein (Negative) Urine Glucose (UA) (Negative) Urine Ketones (Negative) Urine Blood (Negative) Urine Nitrite (Negative) Urine Bilirubin (Negative) Urine Urobilinogen (Negative) Ur Leukocyte Esterase (Negative) Urine WBC (Auto) (0-5) /hpf Urine RBC (Auto) (0-4) /hpf U Hyaline Cast (Auto) (0-5) /lpf U Epithel Cells (Auto) (0-5) /lpf Urine Bacteria (Auto) (Negative) 07/28/20 Range/Units 09:30 WBC (4.8-10.8) K/uL RBC (4.7-6.1) M/uL Hgb (14.0-18.0) g/dL Hct (42-52) % MCV (80-100) fL MCH (25-34) pg MCHC (32-36) g/dL RDW Std Deviation (36.4-46.3) fL RDW Coeff of Dante (11.5-14.5) % Plt Count (130-400) K/uL MPV (7.4-10.4) fL Immature Gran % (Auto) % Neut % (Auto) % Lymph % (Auto) % [place] % (Auto) % Eos % (Auto) % Baso % (Auto) % Neut # (Auto) (1.4-6.5) K/uL Lymph # (Auto) (1.2-3.4) K/uL [place] # (Auto) (0.11-0.59) K/uL Eos # (Auto) (0-0.5) K/uL Baso # (Auto) (0-0.2) K/uL Immature Gran # (Auto) (0.00-0.02) K/uL Hypochromasia Poikilocytosis Sodium (136-145) mmol/L Potassium (3.5-5.1) mmol/L Chloride (98-107) mmol/L Carbon Dioxide (21-32) mmol/L Anion Gap (3-11) BUN (7-18) mg/dl Creatinine (0.6-1.4) mg/dl Est Cr Clr Drug Dosing ml/min Est GFR ( Amer) Est GFR (Non-Af Amer) BUN/Creatinine Ratio (10-20) Glucose (70-99) mg/dl Calcium (8.5-10.1) mg/dl Magnesium (1.8-2.4) mg/dl TSH (0.300-4.500) uIu/ml Free T4 (0.8-1.6) ng/dl Urine Color Dark Yellow Urine Appearance Clear (Clear) Urine pH 6.0 (4.5-7.5) Ur Specific [place] > 1.045 H (1.000-1.030) Urine Protein 3+ H (Negative) Urine Glucose (UA) Negative (Negative) Urine Ketones Negative (Negative) Urine Blood Trace H (Negative) Urine Nitrite Negative (Negative) Urine Bilirubin Negative (Negative) Urine Urobilinogen Negative (Negative) Ur Leukocyte Esterase Negative (Negative) Urine WBC (Auto) 10-30 H (0-5) /hpf Urine RBC (Auto) 0-4 (0-4) /hpf U Hyaline Cast (Auto) 1-5 (0-5) /lpf U Epithel Cells (Auto) 10-20 H (0-5) /lpf Urine Bacteria (Auto) Negative (Negative) Medications Administered Current Inpatient Medications Acetaminophen (Acetaminophen 325 Mg Tab) 650 mg PO Q4H PRN PRN Reason: Pain or Fever Stop: 08/27/20 06:16 Amoxicillin (Amoxicillin 500 Mg Cap) 500 mg PO TID [facility]; Protocol Stop: 08/04/20 08:59 Last Admin: 07/28/20 22:02 Dose: 500 mg Documented by: Aspirin (Aspirin 81 Mg Ectab) 81 mg PO DAILY [facility] Stop: 08/27/20 08:59 Last Admin: 07/28/20 07:38 Dose: Not Given Documented by: Atorvastatin Calcium (Atorvastatin 40 Mg Tab) 80 mg PO [facility] Stop: 08/27/20 08:59 Last Admin: 07/28/20 07:40 Dose: Not Given Documented by: Ciprofloxacin (Ciprofloxacin 500 Mg Tab) 500 mg PO BID [facility]; Protocol Stop: 08/04/20 20:59 Last Admin: 07/28/20 22:02 Dose: 500 mg Documented by: Clopidogrel Bisulfate (Clopidogrel Bisulfate 75 Mg Tab) 75 mg PO [facility] Stop: 08/27/20 08:59 Last Admin: 07/28/20 07:40 Dose: 75 mg Documented by: Enoxaparin Sodium (Enoxaparin Inj 40 Mg/0.4 Ml Syr) 40 mg SQ Q24H [facility] Stop: 08/27/20 08:59 Last Admin: 07/28/20 07:39 Dose: Not Given Documented by: Furosemide 40 mg/ Syringe 4 mls @ 4 mls/min IV DAILY [facility] Stop: 08/28/20 08:59 Levothyroxine Sodium ([facility]othyroxine Sodium 50 Mcg Tablet) [facility] Stop: 08/27/20 06:29 Last Admin: 07/29/20 05:33 Dose: Not Given Documented by: Metoprolol Succinate (Metoprolol Succ 25mg Ext Rel Tab) 25 mg PO [facility] Stop: 08/27/20 06:24 Last Admin: 07/28/20 07:38 Dose: 25 mg Documented by: Nitroglycerin (Nitroglycerin Sl 0.4 Mg/Tab Tab) 0.4 mg SL UD PRN PRN Reason: Chest Pain Stop: 08/27/20 06:16 Olanzapine (Olanzapine 5 Mg Tablet) 5 mg PO HS [facility] Stop: 08/27/20 20:59 Last Admin: 07/28/20 22:01 Dose: 5 mg Documented by: Potassium Chloride (Potassium Chloride Pwd 20 Meq Pack) 40 meq PO BID [facility] Stop: 08/27/20 08:59 Last Admin: 07/28/20 21:57 Dose: 40 meq Documented by: Risperidone (Risperidone 0.5 Mg Tablet) 0.5 mg PO BID [facility] Stop: 08/27/20 08:59 Last Admin: 07/28/20 22:02 Dose: 0.5 mg Documented by: Umeclidinium [place] (Umeclidinium [place] 62.5mcg/Blister 7 Puffs/Inhaler) 1 puffs INH DAILY [facility] Stop: 08/27/20 10:59 Last Admin: 07/28/20 12:25 Dose: 1 puffs Documented by:
[2020-07-29] MEDS: FUROSEMIDE 40 MG in SYRINGE 0 ML IV SCH (08:44)
[2020-07-29] MEDS: POTASSIUM CHLORIDE PWD 20 MEQ PACK PO SCH ×2 (08:44→22:00)
[2020-07-29] MEDS: UMECLIDINIUM BROMIDE 62.5MCG/BLISTER 7 PUFFS/INHALER INH SCH (08:44)
[2020-07-29] MEDS: ENOXAPARIN INJ 40 MG/0.4 ML SYR SQ SCH (08:44)
[2020-07-29] MEDS: CLOPIDOGREL BISULFATE 75 MG TAB PO SCH (08:45)
[2020-07-29] MEDS: risperiDONE 0.5 MG TABLET PO SCH ×2 (08:45→22:00)
[2020-07-29] MEDS: AMOXICILLIN 500 MG CAP PO SCH ×3 (08:45→22:00)
[2020-07-29] MEDS: ATORVASTATIN 40 MG TAB PO SCH (08:45)
[2020-07-29] MEDS: CIPROFLOXACIN 500 MG TAB PO SCH ×2 (08:45→22:00)
[2020-07-29] MEDS: METOPROLOL SUCC 25MG EXT REL TAB PO SCH (08:45)
[2020-07-29] MEDS: ASPIRIN 81 MG ECTAB PO SCH (08:46)
--- NOTE | 2020-07-29 13:43 | Pulmonology Progress Note ---
Date of Service July 29, 2020 Assessment & Plan (1) LOCK (dyspnea on exertion): CTA chest 07/28/2020 personally reviewed patient has mild to moderate amount of right-sided pleural effusion. Centrilobular emphysema appreciated bilateral upper lobes more on the lingula. No significant mediastinal lymphadenopathy. Minimal right lower lobe haziness this could be compression atelectasis from the pleural effusion. Patient has left inferior lingular scarring which is appreciated dating back 06/20/2020. Cardiomegaly appreciated Pleural effusion has increased in size compared to CT chest done 06/20/2020 -- Right sided pleural effusion Etiology is likely from his underlying systolic plus diastolic CHF on top of noncompliant with his medications as an outpatient. NT BNP 8522 Patient is in no acute distress at the time of examination. The fluid has increased a little bit compared to CT chest done 06/20/2020 but patient has been noncompliant with his diuretics. The best next I would be to give IV diuretics and see how he responds. I did go over that if he does not improve with Lasix then he might need thoracentesis but he says he would never want that to be done and would rather have it covered with diuresis. -- COPD with emphysema Patient does have centrilobular emphysema History of greater than [id number] smoking history Not on inhalers at home. I would recommend him to be started on a lama inhaler (Incruse) to be used on a daily basis Plan: Continue with diuresis. Continue with inhaled bronchodilators. Discharge the patient on Incruse inhaler. He will benefit from following up with pulmonary if he wishes to. No further recommendations from pulmonary perspective. Will sign off. Recall if needed. Please note the above document was generated using voice recognition software. It may contain grammatical, syntax or spelling errors. (2) Pleural effusion on right: (3) COPD with emphysema: Admission and Anticipated Discharge Date Admission Date: July 28, 2020 Subjective Patient seen and examined at bedside. No acute distress, no adverse events overnight. Patient states he is peeing well. Shortness of breath is improved a little bit but still there on exertion. Denies any hemoptysis. No cough, no chest pain, no dizziness. Review of Systems Review of Systems: All systems reviewed & are unremarkable except as noted in Subjective Physical Exam Physical Exam: Constitutional: No acute distress HEENT: EOMI, PERRLA, poor dentition Respiratory system: Decreased air entry bilaterally, more decreased on the right lower lobe, no wheeze, no rhonchi, mild crackles right lower lobe CVS: S1-S2 positive, positive 2 out of 6 systolic murmur appreciated best at the apex Abdomen: Soft, nontender, nondistended, positive bowel sounds x4 Extremities: +1 pulses bilaterally radialis/ dorsalis pedis, right lower extremity lymphedema chronic, bluish hue of the left toes Neuro: Awake alert oriented x3 Psych: Normal mood and affect G/U: No Courtney Skin: no rashes, warm and dry Lymphatic: + lymphedema (Right lower extremity) Results & Data Results & Data ([facility]) Vital Signs (Past 12 Hours) Vital Signs Temp Pulse Pulse Resp BP Pulse Ox 07/29/20 11:00 36.3 C L 87 18 113/80 100 07/29/20 07:00 35.9 C L 78 18 162/93 H 100 07/29/20 04:17 36.3 C L 85 21 130/91 95 07/29/20 05:36 07/29/20 05:36 PG Care Time/CCT Total # of Minutes Spent Total Time Spent with Patient: Total time spent is greater than 50% in coordination of care (as documented) at patient's floor/unit and/or counseling patient: Coding Level of Care Code 79085 Subseq Hosp Care Lvl 3 Diagnoses LOCK (dyspnea on exertion) R06.00 Pleural effusion on right J90 COPD with emphysema J43.9
[2020-07-29 19:59] LABS: BUN Creatinine Ratio 22.8 (10-20); Calcium 8.3 mg/dl (8.5-10.1); Creatinine Clr Calc Pharmacy 62.2 ml/min; Est GFR (African American) 79.5; Est GFR (Non-African American) 68.6; Potassium 3.8 mmol/L (3.5-5.1)
[2020-07-29] MEDS: OLANZapine 5 MG TABLET PO SCH (22:00)
[2020-07-29] MEDS: TRAMADOL HCL 50 MG TABLET PO PRN (22:05)
[2020-07-30] MEDS: TRAMADOL HCL 50 MG TABLET PO PRN ×3 (02:08→17:54)
[2020-07-30] MEDS: LEVOTHYROXINE SODIUM 50 MCG TABLET PO SCH (06:30)
--- NOTE | 2020-07-30 07:03 | Hospitalist Progress Note ---
Date of Service July 30, 2020 Assessment & Plan (1) Noncompliance with medications: (2) Pleural effusion on right: (3) Acute on chronic systolic (congestive) heart failure: Acute on chronic systolic heart failure with right pleural effusion secondary to med noncompliance Patient does not take his meds at home When asked about this, he gives all kinds of reasons from fear to go to his bathroom, meds disappearing or meds not working at home. He also occasionally refuses certain meds in the hospital I think his psychiatric problem plays a role in this. Patient does not acknowledge he has any psychiatric problems Psychiatry was consulted previously, last time in June 2020, recommended risperidone, patient however declined to take it Pulmonology was consulted for right-sided pleural effusion, no plan for thoracentesis, continue IV diuretics Will continue iv diuretics Close monitoring of I's and O's, and standing daily weights (4) Hypokalemia: Monitor and replete appropriately (5) Lymphedema of right lower extremity: (6) Chronic cutaneous venous stasis ulcer: Wound care (7) Hypothyroidism: Continue levothyroxine 50mcg daily from last admission (8) Paranoid schizophrenia: Continue risperidone 0.5mg bid from recent psych recommendations if he agrees to take this (9) COPD with emphysema: Incruse inhaler per pulkris wolfe (10) DVT prophylaxis: Lovenox sq Admission and Anticipated Discharge Date Admission Date: July 28, 2020 Subjective Patient sitting up in bed, in no acute distress. He declined blood work this afternoon. Explained that we are monitoring his electrolytes. He feels that he is " more unstable", and that pain medication would improve this. He was st arted on tramadol last evening, as he was refusing Tylenol. Discussed with him to take Tylenol in addition to his tramadol and that he needs to be closely monitored with stronger medications. He continues to ask for stronger pain medications. However he does not appear in acute distress/pain. Obtained standing weights, and his weight is not seemingly improved. Yesterday patient said that he had frequent urine output, but today it slowed down. Lasix ordered twice a day. Review of Systems Review of Systems: All systems reviewed & are unremarkable except as noted in HPI & below Respiratory: + dyspnea on exertion Physical Exam Physical Exam: Constitutional: Elderly slender male, sitting up in bed, in no acute distress Eyes: PERRL, conjunctivae normal, anicteric sclerae ENMT: external ear and nose normal, oropharynx normal Respiratory: normal respiratory effort; no respiratory distress, decreased breath sounds bilaterally, more decreased on the right lower lobe, no wheeze Mild basilar crackles Cardiovascular: Rate/Rhythm: regular rate and regular rhythm S1 S2 Gastrointestinal (Abdomen): normal bowel sounds, soft, nontender to palpation Musculoskeletal: Right chronic leg lymphedema with areas of erythema, ulcer. Neurologic: PERRL, EOMI, no face palsy, no dysarthria, moves extremities spontaneously Genitourinary: + scrotum abnormality (Scrotal edema) Results & Data Results & Data ([facility]) Vital Signs (Past 12 Hours) Vital Signs Temp Pulse Pulse Resp BP Pulse Ox 07/30/20 02:50 36.8 C 89 18 124/84 100 07/30/20 01:00 98 H 07/30/20 00:30 98 H 07/29/20 23:11 36.5 C 97 H 19 129/88 97 07/29/20 19:35 36.4 C L 90 15 137/95 100 Laboratory Results 07/30/20 07/30/20 07/29/20 Range/Units 07:46 07:46 19:28 WBC 6.92 (4.8-10.8) K/uL RBC 4.50 L (4.7-6.1) M/uL Hgb 10.8 L (14.0-18.0) g/dL Hct 36.1 L (42-52) % MCV 80.2 (80-100) fL MCH 24.0 L (25-34) pg MCHC 29.9 L (32-36) g/dL RDW Std Deviation 62.8 H (36.4-46.3) fL RDW Coeff of Dante 21.5 H (11.5-14.5) % Plt Count 143 (130-400) K/uL MPV 10.3 (7.4-10.4) fL Sodium 146 H 146 H (136-145) mmol/L Potassium 4.7 D 3.8 (3.5-5.1) mmol/L Chloride 117 H 116 H (98-107) mmol/L Carbon Dioxide 20 L 19 L (21-32) mmol/L Anion Gap 9.0 11.0 (3-11) BUN 26 H 25 H (7-18) mg/dl Creatinine 1.08 1.10 (0.6-1.4) mg/dl Est Cr Clr Drug Dosing 63.3 62.2 ml/min Est GFR ( Amer) 81.3 79.5 Est GFR (Non-Af Amer) 70.2 68.6 BUN/Creatinine Ratio 23.9 H 22.8 H (10-20) Glucose 96 106 H (70-99) mg/dl Calcium 8.4 L 8.3 L (8.5-10.1) mg/dl Magnesium 1.9 (1.8-2.4) mg/dl
[2020-07-30] MEDS: ENOXAPARIN INJ 40 MG/0.4 ML SYR SQ SCH (07:31)
[2020-07-30] MEDS: ASPIRIN 81 MG ECTAB PO SCH (07:31)
[2020-07-30] MEDS: FUROSEMIDE 40 MG in SYRINGE 0 ML IV SCH ×2 (07:37→17:53)
[2020-07-30] MEDS: UMECLIDINIUM BROMIDE 62.5MCG/BLISTER 7 PUFFS/INHALER INH SCH (07:37)
[2020-07-30] MEDS: METOPROLOL SUCC 25MG EXT REL TAB PO SCH (07:37)
[2020-07-30] MEDS: ATORVASTATIN 40 MG TAB PO SCH (07:37)
[2020-07-30] MEDS: CLOPIDOGREL BISULFATE 75 MG TAB PO SCH (07:37)
[2020-07-30] MEDS: POTASSIUM CHLORIDE PWD 20 MEQ PACK PO SCH (07:37)
[2020-07-30] MEDS: risperiDONE 0.5 MG TABLET PO SCH ×2 (07:37→21:01)
[2020-07-30] MEDS: CIPROFLOXACIN 500 MG TAB PO SCH ×2 (07:38→21:01)
[2020-07-30] MEDS: AMOXICILLIN 500 MG CAP PO SCH ×3 (07:38→21:00)
[2020-07-30 08:35] LABS: Hematocrit (blood only) 36.1 % (42-52); Hemoglobin 10.8 g/dL (14.0-18.0); Mean Corpuscular Hgb Conc 29.9 g/dL (32-36); Mean Corpuscular Volume 80.2 fL (80-100); Mean Platelet Volume 10.3 fL (7.4-10.4); Platelet Count 143 K/uL (130-400); RDW Coefficient of Variation 21.5 % (11.5-14.5); RDW Standard Deviation 62.8 fL (36.4-46.3); White Blood Count 6.92 K/uL (4.8-10.8)
[2020-07-30] MEDS: SPIRONOLACTONE 12.5 MG TAB PO SCH (08:41)
[2020-07-30 08:55] LABS: BUN Creatinine Ratio 23.9 (10-20); Calcium 8.4 mg/dl (8.5-10.1); Creatinine Clr Calc Pharmacy 63.3 ml/min; Est GFR (African American) 81.3; Est GFR (Non-African American) 70.2; Magnesium 1.9 mg/dl (1.8-2.4); Potassium 4.7 mmol/L (3.5-5.1)
[2020-07-30] MEDS ORDERED: TRAMADOL HCL 50 MG TABLET PO STA (16:03)
[2020-07-30] MEDS: ACETAMINOPHEN 325 MG TAB PO PRN (17:20)
--- NOTE | 2020-07-30 18:19 | Cardiology Progress Note ---
Date of Service July 30, 2020 Assessment & Plan (1) Decompensated heart failure: Clinically improved. I will continue his diuretics. His renal function is normal. It is unclear fall of his urine output is being measured. If we feel his output is accurate, he may require more aggressive diuresis. (2) Medical non-compliance: This seems to be the biggest barrier to his health care and has resulted in multiple readmissions. (3) A-fib: Currently in sinus rhythm. Anticoagulation has been deferred due to medication noncompliance. (4) Ischemic cardiomyopathy: His metoprolol and spironolactone restarted. I will consider restarting lisinopril 2.5 mg daily if his renal function and blood pressure continued to be stable. (5) CAD (coronary artery disease): No current symptoms. Continue high-dose atorvastatin, aspirin and Plavix Admission and Anticipated Discharge Date Admission Date: July 28, 2020 Subjective This afternoon the patient was concerned about being more unstable. It seems he may be referring to his episodes of dyspnea and fear about episodes of dyspnea. Tends to occur with some activity but occasionally occurs at rest. Overall he states his breathing is improved. His appetite is improved. He has not noticed any palpitations. No chest pains. Review of Systems Review of Systems: Per HPI. Physical Exam Physical Exam: The patient is alert and oriented. Mood and affect appeared normal. He answered all questions appropriately but the responses or occasionally delusional. HEENT: Pupils are equal and reactive to light and accommodation. Extraocular movements are intact. The sclerae are anicteric. Poor dentition Neuro: Cranial nerves intact Neck: Patient's neck is supple. He has palpable carotid pulses bilaterally without bruits on auscultation. There is no evidence of jugular venous distention. The thyroid is not enlarged. Lungs: Clear to auscultation bilaterally. He has good air movement without use of accessory muscles. No rales wheezes or rhonchi. Some decreased breath sounds at the right base. Cardiac: Heart demonstrates a regular rate and rhythm. Normal S1 and S2. No murmurs on examination. Pulses: The patient has palpable radial pulses bilaterally that are equal in intensity Extremities: There was no evidence of hypoperfusion. There is no cyanosis or clubbing. Lymphedema and chronic changes associated with the right lower extremity. Mild edema and venous varicosities on the left lower leg. Right lower leg is bandaged. Skin: I did not appreciate any rashes on examination today. Results & Data ([facility]) Vital Signs (Past 12 Hours) Vital Signs Temp Pulse Resp BP Pulse Ox 07/30/20 15:18 36.4 C L 76 22 115/82 100 07/30/20 11:53 36.3 C L 63 18 106/74 99 07/30/20 07:00 36.4 C L 83 18 137/93 100 Laboratory Results Abnormal Lab Results 07/29/20 07/30/20 07/30/20 19:28 07:46 07:46 WBC 6.92 RBC 4.50 L Hgb 10.8 L Hct 36.1 L MCV 80.2 MCH 24.0 L MCHC 29.9 L RDW Std Deviation 62.8 H RDW Coeff of Dante 21.5 H Plt Count 143 MPV 10.3 Sodium 146 H 146 H Potassium 3.8 4.7 D Chloride 116 H 117 H Carbon Dioxide 19 L 20 L Anion Gap 11.0 9.0 BUN 25 H 26 H Creatinine 1.10 1.08 Est Cr Clr Drug Dosing 62.2 63.3 Est GFR ( Amer) 79.5 81.3 Est GFR (Non-Af Amer) 68.6 70.2 BUN/Creatinine Ratio 22.8 H 23.9 H Glucose 106 H 96 Calcium 8.3 L 8.4 L Magnesium 1.9 PG Care Time/CCT Total # of Minutes Spent Total Time Spent with Patient: Total time spent is greater than 50% in coordination of care (as documented) at patient's floor/unit and/or counseling patient: Coding Level of Care Code 30317 Subseq Hosp Care Lvl 2 Diagnoses Decompensated heart failure I50.9 Medical non-compliance Z91.19 A-fib I48.91 Atrial fibrillation type: unspecified Ischemic cardiomyopathy I25.5 CAD (coronary artery disease) I25.10 (1) A-fib Atrial fibrillation type: unspecified Qualified Code(s): I48.91 - Unspecified atrial fibrillation
[2020-07-30 19:43] LABS: BUN Creatinine Ratio 23.4 (10-20); Calcium 8.6 mg/dl (8.5-10.1); Creatinine Clr Calc Pharmacy 56.5 ml/min; Est GFR (African American) 70.9; Est GFR (Non-African American) 61.1; Magnesium 1.8 mg/dl (1.8-2.4)
[2020-07-30] MEDS: OLANZapine 5 MG TABLET PO SCH (21:00)
[2020-07-30] MEDS ORDERED: ALBUMIN 25% 50 ML IV ONE (22:30)
[2020-07-31] MEDS: LEVOTHYROXINE SODIUM 50 MCG TABLET PO SCH (05:41)
[2020-07-31] MEDS: FUROSEMIDE 40 MG in SYRINGE 0 ML IV SCH ×2 (07:30→16:05)
[2020-07-31] MEDS: ATORVASTATIN 40 MG TAB PO SCH (07:30)
[2020-07-31] MEDS: METOPROLOL SUCC 25MG EXT REL TAB PO SCH (07:30)
[2020-07-31] MEDS: AMOXICILLIN 500 MG CAP PO SCH ×3 (07:30→20:57)
[2020-07-31] MEDS: SPIRONOLACTONE 12.5 MG TAB PO SCH (07:30)
[2020-07-31] MEDS: CIPROFLOXACIN 500 MG TAB PO SCH ×2 (07:30→20:59)
[2020-07-31] MEDS: UMECLIDINIUM BROMIDE 62.5MCG/BLISTER 7 PUFFS/INHALER INH SCH (07:30)
[2020-07-31] MEDS: risperiDONE 0.5 MG TABLET PO SCH ×2 (07:31→20:58)
[2020-07-31] MEDS: ASPIRIN 81 MG ECTAB PO SCH (07:31)
[2020-07-31] MEDS: ENOXAPARIN INJ 40 MG/0.4 ML SYR SQ SCH (07:31)
[2020-07-31] MEDS: CLOPIDOGREL BISULFATE 75 MG TAB PO SCH (07:31)
[2020-07-31 08:05] LABS: BUN Creatinine Ratio 26.3 (10-20); Calcium 8.8 mg/dl (8.5-10.1); Creatinine Clr Calc Pharmacy 59.5 ml/min; Est GFR (African American) 75.4; Potassium 5.2 mmol/L (3.5-5.1)
[2020-07-31] MEDS ORDERED: SODIUM POLYSTYRENE SULFONATE 15G/60ML SUSP PO STA (08:28)
--- NOTE | 2020-07-31 08:33 | Hospitalist Progress Note ---
Date of Service July 31, 2020 Assessment & Plan (1) Noncompliance with medications: (2) Pleural effusion on right: (3) Acute on chronic systolic (congestive) heart failure: Acute on chronic systolic heart failure with right pleural effusion secondary to med noncompliance Patient does not take his meds at home When asked about this, he gives all kinds of reasons from fear to go to his bathroom, meds disappearing or meds not working at home. He also occasionally refuses certain meds in the hospital I think his psychiatric problem plays a role in this. Patient does not acknowledge he has any psychiatric problems Psychiatry was consulted previously, last time in June 2020, recommended risperidone, patient however declined to take it Pulmonology was consulted for right-sided pleural effusion, no plan for thoracentesis, continue IV diuretics Will continue iv diuretics Close monitoring of I's and O's, and standing daily weights (4) Hypokalemia: Monitor and replete appropriately (5) Lymphedema of right lower extremity: (6) Chronic cutaneous venous stasis ulcer: Wound care (7) Hypothyroidism: Continue levothyroxine 50mcg daily from last admission (8) Paranoid schizophrenia: Continue risperidone 0.5mg bid from recent psych recommendations if he agrees to take this -Zyprexa at bedtime -So far patient has been compliant with his psych medications (9) COPD with emphysema: Incruse inhaler per destinee wolfe (10) DVT prophylaxis: Lovenox sq -patient been refusing Admission and Anticipated Discharge Date Admission Date: July 28, 2020 Subjective Patient is sitting up in bed, in no acute distress. Reports that he is short of breath still with ambulation. His right lower extremity edema is somewhat improved but he still has significant edema in his hip area (dependent edema). He also reports that his urine output decreased. Per nursing staff some of his output may not be measured when patient has a bowel movement. Patient says that he has 2 BMs a day. His weight seems to be improved 68.5 kg this morning however not significantly improved. Review of Systems Review of Systems: All systems reviewed & are unremarkable except as noted in HPI & below Respiratory: + dyspnea on exertion Physical Exam Physical Exam: Constitutional: Elderly slender male, sitting up in bed, in no acute distress Eyes: PERRL, conjunctivae normal, anicteric sclerae ENMT: external ear and nose normal, oropharynx normal Respiratory: normal respiratory effort; no respiratory distress, decreased breath sounds bilaterally, more decreased on the right lower lobe, no wheeze Mild basilar crackles Cardiovascular: Rate/Rhythm: regular rate and regular rhythm S1 S2 Gastrointestinal (Abdomen): normal bowel sounds, soft, nontender to palpation Musculoskeletal: Right chronic leg lymphedema with areas of erythema, ulcer. (edema improved) Neurologic: PERRL, EOMI, no face palsy, no dysarthria, moves extremities spontaneously Genitourinary: + scrotum abnormality (Scrotal edema, improved) Results & Data Results & Data ([facility]) Vital Signs (Past 12 Hours) Vital Signs Temp Pulse Pulse Resp BP Pulse Ox 07/31/20 06:57 36.3 C L 80 21 120/86 99 07/31/20 03:44 36.0 C L 78 20 132/93 100 07/31/20 00:00 96 H 07/30/20 23:28 36.0 C L 62 20 90/67 L 100 Laboratory Results 07/31/20 07/30/20 07/30/20 Range/Units 07:12 19:09 07:46 WBC 6.92 (4.8-10.8) K/uL RBC 4.50 L (4.7-6.1) M/uL Hgb 10.8 L (14.0-18.0) g/dL Hct 36.1 L (42-52) % MCV 80.2 (80-100) fL MCH 24.0 L (25-34) pg MCHC 29.9 L (32-36) g/dL RDW Std Deviation 62.8 H (36.4-46.3) fL RDW Coeff of Dante 21.5 H (11.5-14.5) % Plt Count 143 (130-400) K/uL MPV 10.3 (7.4-10.4) fL Sodium 145 144 (136-145) mmol/L Potassium 5.2 H 5.0 (3.5-5.1) mmol/L Chloride 114 H 115 H (98-107) mmol/L Carbon Dioxide 23 19 L (21-32) mmol/L Anion Gap 7.0 10.0 (3-11) BUN 30 H 28 H (7-18) mg/dl Creatinine 1.15 1.21 (0.6-1.4) mg/dl Est Cr Clr Drug Dosing 59.5 56.5 ml/min Est GFR ( Amer) 75.4 70.9 Est GFR (Non-Af Amer) 65.0 61.1 BUN/Creatinine Ratio 26.3 H 23.4 H (10-20) Glucose 75 79 (70-99) mg/dl Calcium 8.8 8.6 (8.5-10.1) mg/dl Magnesium 2.0 1.8 (1.8-2.4) mg/dl 07/30/20 Range/Units 07:46 WBC (4.8-10.8) K/uL RBC (4.7-6.1) M/uL Hgb (14.0-18.0) g/dL Hct (42-52) % MCV (80-100) fL MCH (25-34) pg MCHC (32-36) g/dL RDW Std Deviation (36.4-46.3) fL RDW Coeff of Dante (11.5-14.5) % Plt Count (130-400) K/uL MPV (7.4-10.4) fL Sodium 146 H (136-145) mmol/L Potassium 4.7 D (3.5-5.1) mmol/L Chloride 117 H (98-107) mmol/L Carbon Dioxide 20 L (21-32) mmol/L Anion Gap 9.0 (3-11) BUN 26 H (7-18) mg/dl Creatinine 1.08 (0.6-1.4) mg/dl Est Cr Clr Drug Dosing 63.3 ml/min Est GFR ( Amer) 81.3 Est GFR (Non-Af Amer) 70.2 BUN/Creatinine Ratio 23.9 H (10-20) Glucose 96 (70-99) mg/dl Calcium 8.4 L (8.5-10.1) mg/dl Magnesium 1.9 (1.8-2.4) mg/dl Medications Administered Current Inpatient Medications Acetaminophen (Acetaminophen 325 Mg Tab) 650 mg PO Q4H PRN PRN Reason: Pain or Fever Stop: 08/27/20 06:16 Last Admin: 07/30/20 17:20 Dose: 650 mg Documented by: Amoxicillin (Amoxicillin 500 Mg Cap) 500 mg PO TID [facility]; Protocol Stop: 08/04/20 08:59 Last Admin: 07/31/20 07:30 Dose: 500 mg Documented by: Aspirin (Aspirin 81 Mg Ectab) 81 mg PO DAILY [facility] Stop: 08/27/20 08:59 Last Admin: 07/31/20 07:31 Dose: Not Given Documented by: Atorvastatin Calcium (Atorvastatin 40 Mg Tab) 80 mg PO QAM [facility] Stop: 08/27/20 08:59 Last Admin: 07/31/20 07:30 Dose: 20 mg Documented by: Ciprofloxacin (Ciprofloxacin 500 Mg Tab) 500 mg PO BID [facility]; Protocol Stop: 08/04/20 20:59 Last Admin: 07/31/20 07:30 Dose: 500 mg Documented by: Clopidogrel Bisulfate (Clopidogrel Bisulfate 75 Mg Tab) [facility] Stop: 08/27/20 08:59 Last Admin: 07/31/20 07:31 Dose: 75 mg Documented by: Enoxaparin Sodium (Enoxaparin Inj 40 Mg/0.4 Ml Syr) 40 mg SQ Q24H [facility] Stop: 08/27/20 08:59 Last Admin: 07/31/20 07:31 Dose: Not Given Documented by: Furosemide 40 mg/ Syringe 4 mls @ 4 mls/min IV BID17 [facility] Stop: 08/29/20 16:59 Last Admin: 07/31/20 07:30 Dose: 4 mls/min Documented by: Furosemide 20 mg/ Syringe 2 mls @ 4 mls/min IV ONE STA Stop: 07/31/20 08:30 Levothyroxine Sodium (Levothyroxine Sodium 50 Mcg Tablet) 50 mcg PO DAILYBB [facility] Stop: 08/27/20 06:29 Last Admin: 07/31/20 05:41 Dose: 50 mcg Documented by: Metoprolol Succinate (Metoprolol Succ 25mg Ext Rel Tab) [facility] Stop: 08/27/20 06:24 Last Admin: 07/31/20 07:30 Dose: 25 mg Documented by: Nitroglycerin (Nitroglycerin Sl 0.4 Mg/Tab Tab) 0.4 mg SL UD PRN PRN Reason: Chest Pain Stop: 08/27/20 06:16 Olanzapine (Olanzapine 5 Mg Tablet) 5 mg PO HS [facility] Stop: 08/27/20 20:59 Last Admin: 07/30/20 21:00 Dose: 5 mg Documented by: Potassium Chloride (Potassium Chloride Pwd 20 Meq Pack) 40 meq PO BID [facility] Stop: 08/27/20 08:59 Last Admin: 07/30/20 07:37 Dose: 40 meq Documented by: Risperidone (Risperidone 0.5 Mg Tablet) 0.5 mg PO BID [facility] Stop: 08/27/20 08:59 Last Admin: 07/31/20 07:31 Dose: 0.5 mg Documented by: Spironolactone (Spironolactone 12.5 Mg Tab) 12.5 mg PO DAILY [facility] Stop: 08/29/20 08:59 Last Admin: 07/31/20 07:30 Dose: 12.5 mg Documented by: Tramadol HCl (Tramadol Hcl 50 Mg Tablet) 25 mg PO Q4H PRN PRN Reason: Pain Stop: 08/28/20 21:06 Last Admin: 07/30/20 17:54 Dose: 25 mg Documented by: Umeclidinium [place] (Umeclidinium [place] 62.5mcg/Blister 7 Puffs/Inhaler) 1 puffs INH DAILY [facility] Stop: 08/27/20 10:59 Last Admin: 07/31/20 07:30 Dose: 1 puffs Documented by:
[2020-07-31] MEDS ORDERED: FUROSEMIDE 20 MG in SYRINGE 0 ML IV ONE ×2 (08:40→18:00)
[2020-07-31] MEDS: ACETAMINOPHEN 325 MG TAB PO PRN ×2 (13:31→20:58)
[2020-07-31] MEDS ORDERED: FUROSEMIDE 40 MG in SYRINGE 0 ML IV ONE (14:36)
[2020-07-31] MEDS ORDERED: FUROSEMIDE 60 MG in SYRINGE 0 ML IV SCH (15:00)
[2020-07-31] MEDS: TRAMADOL HCL 50 MG TABLET PO PRN ×2 (15:03→19:20)
[2020-07-31] MEDS ORDERED: TRAMADOL HCL 50 MG TABLET PO STA ×2 (17:23→21:29)
[2020-07-31] MEDS ORDERED: Nursing to Pharmacy Communication SCH (17:45)
--- NOTE | 2020-07-31 18:42 | Cardiology Progress Note ---
Date of Service July 31, 2020 Assessment & Plan (1) Decompensated heart failure: Clinically improved. Difficult to ascertain his volume status or effect of diuretics given his incontinence. His BUN is rising slightly and may be reaching point where he should be converted to an oral regimen of Lasix, likely 40 mg daily. This dose could be continued in the outpatient setting. (2) Medical non-compliance: This seems to be the biggest barrier to his health care and has resulted in multiple readmissions. (3) A-fib: Currently in sinus rhythm. Anticoagulation has been deferred due to medication noncompliance. (4) Ischemic cardiomyopathy: His metoprolol and spironolactone restarted. I think we can easily increase his metoprolol succinate to 50 mg daily. (5) CAD (coronary artery disease): No current symptoms. Continue high-dose atorvastatin, aspirin and Plavix I will be away from the hospital for the next 2 days. If there specific questions regarding his care please address to the on-call senior wind energy consultant. Admission and Anticipated Discharge Date Admission Date: July 28, 2020 Subjective This afternoon patient claims to be feeling 10% better. He seemed to have less trouble getting back and forth to the bathroom but still has an element of dyspnea on exertion. He is anxious to do more walking maintain his strength. He enjoyed his dinner. He did have some incontinence. Review of Systems Review of Systems: Per HPI Physical Exam Physical Exam: The patient is alert and oriented. Mood and affect appeared normal. He answered all questions appropriately but the responses or occasiona lly delusional. HEENT: Pupils are equal and reactive to light and accommodation. Extraocular movements are intact. The sclerae are anicteric. Poor dentition Neuro: Cranial nerves intact Neck: Patient's neck is supple. He has palpable carotid pulses bilaterally without bruits on auscultation. There is no evidence of jugular venous distention. The thyroid is not enlarged. Lungs: Clear to auscultation bilaterally. He has good air movement without use of accessory muscles. No rales wheezes or rhonchi. Some decreased breath sounds at the right base. Cardiac: Heart demonstrates a regular rate and rhythm. Normal S1 and S2. No murmurs on examination. Pulses: The patient has palpable radial pulses bilaterally that are equal in intensity Extremities: There was no evidence of hypoperfusion. There is no cyanosis or clubbing. Lymphedema and chronic changes associated with the right lower extremity. Mild edema and venous varicosities on the left lower leg. Right lower leg is bandaged. Skin: I did not appreciate any rashes on examination today. Results & Data ([facility]) Vital Signs (Past 12 Hours) Vital Signs Temp Pulse Pulse Resp BP Pulse Ox 07/31/20 16:00 73 07/31/20 15:08 36.4 C L 77 16 136/85 99 07/31/20 11:51 36.6 C 76 18 125/80 100 07/31/20 06:57 36.3 C L 80 21 120/86 99 Laboratory Results Abnormal Lab Results 07/30/20 07/31/20 19:09 07:12 Sodium 144 145 Potassium 5.0 5.2 H Chloride 115 H 114 H Carbon Dioxide 19 L 23 Anion Gap 10.0 7.0 BUN 28 H 30 H Creatinine 1.21 1.15 Est Cr Clr Drug Dosing 56.5 59.5 Est GFR ( Amer) 70.9 75.4 Est GFR (Non-Af Amer) 61.1 65.0 BUN/Creatinine Ratio 23.4 H 26.3 H Glucose 79 75 Calcium 8.6 8.8 Magnesium 1.8 2.0 PG Care Time/CCT Total # of Minutes Spent Total Time Spent with Patient: Total time spent is greater than 50% in coordination of care (as documented) at patient's floor/unit and/or counseling patient: Coding Level of Care Code 78007 Subseq Hosp Care Lvl 2 Diagnoses Decompensated heart failure I50.9 Medical non-compliance Z91.19 A-fib I48.91 Atrial fibrillation type: unspecified Ischemic cardiomyopathy I25.5 CAD (coronary artery disease) I25.10 (1) A-fib Atrial fibrillation type: unspecified Qualified Code(s): I48.91 - Unspecified atrial fibrillation
[2020-07-31] MEDS: OLANZapine 5 MG TABLET PO SCH (20:58)
[2020-07-31 21:27] LABS: BUN Creatinine Ratio 27.4 (10-20); Calcium 8.2 mg/dl (8.5-10.1); Est GFR (African American) 65.6; Est GFR (Non-African American) 56.6; Potassium 4.9 mmol/L (3.5-5.1)
[2020-08-01] MEDS: LEVOTHYROXINE SODIUM 50 MCG TABLET PO SCH (05:39)
[2020-08-01] MEDS: TRAMADOL HCL 50 MG TABLET PO PRN ×3 (05:40→20:20)
--- NOTE | 2020-08-01 07:23 | Hospitalist Progress Note ---
Date of Service August 01, 2020 Assessment & Plan (1) Noncompliance with medications: (2) Pleural effusion on right: (3) Acute on chronic systolic (congestive) heart failure: Acute on chronic systolic heart failure with right pleural effusion secondary to med noncompliance Patient does not take his meds at home When asked about this, he gives all kinds of reasons from fear to go to his bathroom, meds disappearing or meds not working at home. He also occasionally refuses certain meds in the hospital I think his psychiatric problem plays a role in this. Patient does not acknowledge he has any psychiatric problems Psychiatry was consulted previously, last time in June 2020, recommended risperidone, patient however declined to take it Pulmonology was consulted for right-sided pleural effusion, no plan for thoracentesis, continue IV diuretics Will continue iv diuretics Close monitoring of I's and O's, and standing daily weights BUN is increasing, reaching the point of switching to p.o. Lasix, per cardiology recommendations likely 40 mg daily on discharge (4) Hypokalemia: Monitor and replete appropriately Now normalized (5) Lymphedema of right lower extremity: (6) Chronic cutaneous venous stasis ulcer: Wound care (7) Hypothyroidism: Continue levothyroxine 50mcg daily from last admission (8) Paranoid schizophrenia: Continue risperidone 0.5mg bid from recent psych recommendations if he agrees to take this -Zyprexa at bedtime -So far patient has been compliant with his psych medications (9) COPD with emphysema: Incruse inhaler per destinee wolfe (10) DVT prophylaxis: Lovenox sq -patient been refusing Admission and Anticipated Discharge Date Admission Date: July 28, 2020 Subjective Patient is sitting up in bed, in no acute distress. His right lower extremity edema has improved, however he feels it is still not at baseline. He says he still needs a lot of time to get up from the bed and to the bathroom and he feels that he needs extra oxygen. No fevers or chills or any new symptoms. Cardiology saw the patient yesterday, given his BUN is increasing, reaching the point to switch to p.o. Lasix. Review of Systems Review of Systems: All systems reviewed & are unremarkable except as noted in HPI & below Constitutional: no fever and no chills Respiratory: + dyspnea on exertion; no cough Cardiovascular: + edema; no chest pain and no palpitations Gastrointestinal: no abdominal pain, no nausea and no vomiting Physical Exam Physical Exam: Constitutional: Elderly slender male, sitting up in bed, in no acute distress Eyes: PERRL, conjunctivae normal, anicteric sclerae ENMT: external ear and nose normal, oropharynx normal Respiratory: normal respiratory effort; no respiratory distress, decreased breath sounds bilaterally, more decreased on the right lower lobe, no wheeze Mild basilar crackles Cardiovascular: Rate/Rhythm: regular rate and regular rhythm S1 S2 Gastrointestinal (Abdomen): normal bowel sounds, soft, nontender to palpation Musculoskeletal: Right chronic leg lymphedema with areas of erythema, ulcer. (edema improved) Neurologic: PERRL, EOMI, no face palsy, no dysarthria, moves extremities spontaneously Genitourinary: + scrotum abnormality (Scrotal edema, improved) Results & Data Results & Data ([facility]) Vital Signs (Past 12 Hours) Vital Signs Temp Pulse Pulse Resp BP BP Pulse Ox 08/01/20 07:00 64 08/01/20 04:00 36.5 C 67 20 98/69 L 100 07/31/20 23:29 69 07/31/20 23:11 36.6 C 74 20 116/81 99 07/31/20 19:51 36.5 C 69 20 121/81 98 Laboratory Results 07/31/20 07/31/20 Range/Units 20:52 07:12 Sodium 146 H 145 (136-145) mmol/L Potassium 4.9 5.2 H (3.5-5.1) mmol/L Chloride 112 H 114 H (98-107) mmol/L Carbon Dioxide 24 23 (21-32) mmol/L Anion Gap 9.0 7.0 (3-11) BUN 35 H 30 H (7-18) mg/dl Creatinine 1.29 1.15 (0.6-1.4) mg/dl Est Cr Clr Drug Dosing 53.0 59.5 ml/min Est GFR ( Amer) 65.6 75.4 Est GFR (Non-Af Amer) 56.6 65.0 BUN/Creatinine Ratio 27.4 H 26.3 H (10-20) Glucose 86 75 (70-99) mg/dl Calcium 8.2 L 8.8 (8.5-10.1) mg/dl Magnesium 2.0 (1.8-2.4) mg/dl Medications Administered Current Inpatient Medications Acetaminophen (Acetaminophen 325 Mg Tab) 650 mg PO Q4H PRN PRN Reason: Pain or Fever Stop: 08/27/20 06:16 Last Admin: 07/31/20 20:58 Dose: 650 mg Documented by: Amoxicillin (Amoxicillin 500 Mg Cap) 500 mg PO TID [facility]; Protocol Stop: 08/04/20 08:59 Last Admin: 07/31/20 20:57 Dose: 500 mg Documented by: Aspirin (Aspirin 81 Mg Ectab) 81 mg PO DAILY [facility] Stop: 08/27/20 08:59 Last Admin: 07/31/20 07:31 Dose: Not Given Documented by: Atorvastatin Calcium ([facility]atin 40 Mg Tab) [facility] [place] Stop: 08/27/20 08:59 Last Admin: 07/31/20 07:30 Dose: 20 mg Documented by: Ciprofloxacin (Ciprofloxacin 500 Mg Tab) 500 mg PO BID [facility]; Protocol Stop: 08/04/20 20:59 Last Admin: 07/31/20 20:59 Dose: 500 mg Documented by: Clopidogrel Bisulfate (Clopidogrel Bisulfate 75 Mg Tab) [facility] [place] Stop: 08/27/20 08:59 Last Admin: 07/31/20 07:31 Dose: 75 mg Documented by: Enoxaparin Sodium (Enoxaparin Inj 40 Mg/0.4 Ml Syr) 40 mg SQ Q24H [facility] Stop: 08/27/20 08:59 Last Admin: 07/31/20 07:31 Dose: Not Given Documented by: Furosemide 60 mg/ Syringe 6 mls @ 4 mls/min IV 0900,1500 [facility] Stop: 08/31/20 08:59 Levothyroxine Sodium (Levothyroxine Sodium 50 Mcg Tablet) 50 mcg PO DAILYBB [facility] Stop: 08/27/20 06:29 Last Admin: 08/01/20 05:39 Dose: 50 mcg Documented by: Metoprolol Succinate (Metoprolol Succ 50mg Ext Rel Tab) [facility] [place] Stop: 08/31/20 08:59 Nitroglycerin (Nitroglycerin Sl 0.4 Mg/Tab Tab) 0.4 mg SL UD PRN PRN Reason: Chest Pain Stop: 08/27/20 06:16 Olanzapine (Olanzapine 5 Mg Tablet) 5 mg PO HS [facility] Stop: 08/27/20 20:59 Last Admin: 07/31/20 20:58 Dose: 5 mg Documented by: Potassium Chloride (Potassium Chloride Pwd 20 Meq Pack) 40 meq PO BID [facility] Stop: 08/27/20 08:59 Last Admin: 07/30/20 07:37 Dose: 40 meq Documented by: Risperidone (Risperidone 0.5 Mg Tablet) 0.5 mg PO BID [facility] Stop: 08/27/20 08:59 Last Admin: 07/31/20 20:58 Dose: 0.5 mg Documented by: Spironolactone (Spironolactone 12.5 Mg Tab) 12.5 mg PO DAILY [facility] Stop: 08/29/20 08:59 Last Admin: 07/31/20 07:30 Dose: 12.5 mg Documented by: Tramadol HCl (Tramadol Hcl 50 Mg Tablet) 25 - 50 mg PO Q4H PRN PRN Reason: Pain Stop: 08/28/20 21:06 Last Admin: 08/01/20 05:40 Dose: 50 mg Documented by: Umeclidinium [place] (Umeclidinium [place] 62.5mcg/Blister 7 Puffs/Inhaler) 1 puffs INH DAILY [facility] Stop: 08/27/20 10:59 Last Admin: 07/31/20 07:30 Dose: 1 puffs Documented by:
[2020-08-01 08:06] LABS: BUN Creatinine Ratio 28.5 (10-20); Calcium 8.6 mg/dl (8.5-10.1); Est GFR (African American) 70.2; Est GFR (Non-African American) 60.5; Potassium 4.7 mmol/L (3.5-5.1)
[2020-08-01] MEDS: risperiDONE 0.5 MG TABLET PO SCH ×2 (08:22→20:16)
[2020-08-01] MEDS: ENOXAPARIN INJ 40 MG/0.4 ML SYR SQ SCH (08:23)
[2020-08-01] MEDS: ASPIRIN 81 MG ECTAB PO SCH (08:23)
[2020-08-01] MEDS: CLOPIDOGREL BISULFATE 75 MG TAB PO SCH (08:24)
[2020-08-01] MEDS: ATORVASTATIN 40 MG TAB PO SCH (08:24)
[2020-08-01] MEDS: SPIRONOLACTONE 12.5 MG TAB PO SCH (08:24)
[2020-08-01] MEDS: AMOXICILLIN 500 MG CAP PO SCH ×3 (08:25→20:16)
[2020-08-01] MEDS: METOPROLOL SUCC 50MG EXT REL TAB PO SCH (08:25)
[2020-08-01] MEDS: UMECLIDINIUM BROMIDE 62.5MCG/BLISTER 7 PUFFS/INHALER INH SCH (08:25)
[2020-08-01] MEDS: CIPROFLOXACIN 500 MG TAB PO SCH ×2 (08:25→20:16)
[2020-08-01] MEDS: FUROSEMIDE 40 MG in SYRINGE 0 ML IV SCH ×2 (08:39→14:47)
[2020-08-01] MEDS ORDERED: FUROSEMIDE 60 MG in SYRINGE 0 ML IV SCH (09:00)
[2020-08-01] MEDS: OLANZapine 5 MG TABLET PO SCH (20:16)
[2020-08-02] MEDS: LEVOTHYROXINE SODIUM 50 MCG TABLET PO SCH (05:41)
[2020-08-02 07:37] LABS: BUN Creatinine Ratio 28.7 (10-20); Calcium 8.9 mg/dl (8.5-10.1); Creatinine Clr Calc Pharmacy 42.5 ml/min; Est GFR (African American) 53.4
[2020-08-02] MEDS: FUROSEMIDE 40 MG in SYRINGE 0 ML IV SCH (08:00)
[2020-08-02] MEDS: SPIRONOLACTONE 12.5 MG TAB PO SCH (08:01)
[2020-08-02] MEDS: CLOPIDOGREL BISULFATE 75 MG TAB PO SCH (08:01)
[2020-08-02] MEDS: ASPIRIN 81 MG ECTAB PO SCH (08:01)
[2020-08-02] MEDS: ATORVASTATIN 40 MG TAB PO SCH (08:01)
[2020-08-02] MEDS: UMECLIDINIUM BROMIDE 62.5MCG/BLISTER 7 PUFFS/INHALER INH SCH (08:01)
[2020-08-02] MEDS: risperiDONE 0.5 MG TABLET PO SCH ×2 (08:02→20:39)
[2020-08-02] MEDS: METOPROLOL SUCC 50MG EXT REL TAB PO SCH (08:02)
[2020-08-02] MEDS: AMOXICILLIN 500 MG CAP PO SCH ×3 (08:02→20:40)
[2020-08-02] MEDS: CIPROFLOXACIN 500 MG TAB PO SCH ×2 (08:03→20:40)
[2020-08-02] MEDS: ENOXAPARIN INJ 40 MG/0.4 ML SYR SQ SCH (08:04)
--- NOTE | 2020-08-02 10:06 | Hospitalist Progress Note ---
Date of Service August 02, 2020 Assessment & Plan (1) Noncompliance with medications: (2) Pleural effusion on right: (3) Acute on chronic systolic (congestive) heart failure: Acute on chronic systolic heart failure with right pleural effusion secondary to med noncompliance Patient does not take his meds at home When asked about this, he gives all kinds of reasons from fear to go to his bathroom, meds disappearing or meds not working at home. He also occasionally refuses certain meds in the hospital I think his psychiatric problem plays a role in this. Patient does not acknowledge he has any psychiatric problems Psychiatry was consulted previously, last time in June 2020, recommended risperidone, patient however declined to take it Pulmonology was consulted for right-sided pleural effusion, no plan for thoracentesis, continued IV diuretics BUN is increasing, will switch to p.o. Lasix, per cardiology recommendations likely 40 mg daily on discharge Close monitoring of I's and O's, and standing daily weights (4) Hypokalemia: Monitor and replete appropriately Now normalized (5) Lymphedema of right lower extremity: (6) Chronic cutaneous venous stasis ulcer: Wound care (7) Hypothyroidism: Continue levothyroxine 50mcg daily from last admission (8) Paranoid schizophrenia: Continue risperidone 0.5mg bid from recent psych recommendations if he agrees to take this -Zyprexa at bedtime -So far patient has been compliant with his psych medications (9) COPD with emphysema: Incruse inhaler per pulkris wolfe (10) DVT prophylaxis: Lovenox sq -patient been refusing Admission and Anticipated Discharge Date Admission Date: July 28, 2020 Subjective Patient is sitting up in bed, in no acute distress. His right lower extremity edema has improved, however he feels it is still not at baseline. He says he still needs a lot of time to get up from the bed and to the bathroom and he feels that he needs extra oxygen. No fevers or chills or any new symptoms. Cardiology saw the patient, given his BUN is increasing, reaching the point to switch to p.o. Lasix. Review of Systems Review of Systems: All systems reviewed & are unremarkable except as noted in HPI & below Constitutional: no fever and no chills Respiratory: no cough and no dyspnea Cardiovascular: no chest pain and no palpitations Gastrointestinal: no abdominal pain, no nausea and no vomiting Physical Exam Physical Exam: Constitutional: Elderly slender male, sitting up in bed, in no acute distress Eyes: PERRL, conjunctivae normal, anicteric sclerae ENMT: external ear and nose normal, oropharynx normal Respiratory: normal respiratory effort; no respiratory distress, decreased breath sounds bilaterally, more decreased at the right lower lobe, no wheezes Cardiovascular: Rate/Rhythm: regular rate and regular rhythm S1 S2 Gastrointestinal (Abdomen): normal bowel sounds, soft, nontender to palpation Musculoskeletal: Right chronic leg lymphedema with areas of erythema, ulcer. (edema improved) Neurologic: PERRL, EOMI, no face palsy, no dysarthria, moves extremities spontaneously Genitourinary: + scrotum abnormality (Scrotal edema, improved) Results & Data Results & Data ([facility]) Vital Signs (Past 12 Hours) Vital Signs Temp Pulse Pulse Resp BP BP Pulse Ox 08/02/20 07:05 74 08/02/20 06:00 36.4 C L 60 20 118/72 100 08/02/20 03:38 36.4 C L 68 18 93/68 L 100 08/02/20 00:58 63 08/01/20 23:57 104/72 08/01/20 23:00 36.4 C L 58 L 20 89/65 L 100 Laboratory Results 08/02/20 Range/Units 06:21 Sodium 141 (136-145) mmol/L Potassium 5.0 (3.5-5.1) mmol/L Chloride 108 H (98-107) mmol/L Carbon Dioxide 22 (21-32) mmol/L Anion Gap 11.0 (3-11) BUN 44 H (7-18) mg/dl Creatinine 1.53 H D (0.6-1.4) mg/dl Est Cr Clr Drug Dosing 42.5 ml/min Est GFR ( Amer) 53.4 Est GFR (Non-Af Amer) 46.0 BUN/Creatinine Ratio 28.7 H (10-20) Glucose 81 (70-99) mg/dl Calcium 8.9 (8.5-10.1) mg/dl Medications Administered Current Inpatient Medications Acetaminophen (Acetaminophen 325 Mg Tab) 650 mg PO Q4H PRN PRN Reason: Pain or Fever Stop: 08/27/20 06:16 Last Admin: 07/31/20 20:58 Dose: 650 mg Documented by: Amoxicillin (Amoxicillin 500 Mg Cap) 500 mg PO TID [facility]; Protocol Stop: 08/04/20 08:59 Last Admin: 08/02/20 08:02 Dose: 500 mg Documented by: Aspirin (Aspirin 81 Mg Ectab) 81 mg PO DAILY [facility] Stop: 08/27/20 08:59 Last Admin: 08/02/20 08:01 Dose: 81 mg Documented by: Atorvastatin Calcium (Atorvastatin 40 Mg Tab) [facility] Stop: 08/27/20 08:59 Last Admin: 08/02/20 08:01 Dose: 80 mg Documented by: Ciprofloxacin (Ciprofloxacin 500 Mg Tab) 500 mg PO BID [facility]; Protocol Stop: 08/04/20 20:59 Last Admin: 08/02/20 08:03 Dose: 500 mg Documented by: Clopidogrel Bisulfate (Clopidogrel Bisulfate 75 Mg Tab) 75 mg PO [facility] Stop: 08/27/20 08:59 Last Admin: 08/02/20 08:01 Dose: 75 mg Documented by: Enoxaparin Sodium (Enoxaparin Inj 40 Mg/0.4 Ml Syr) 40 mg SQ Q24H [facility] Stop: 08/27/20 08:59 Last Admin: 08/02/20 08:04 Dose: Not Given Documented by: Furosemide (Furosemide 40 Mg Tab) 40 mg PO [facility] Stop: 09/02/20 08:59 Levothyroxine Sodium (Levothyroxine Sodium 50 Mcg Tablet) 50 mcg PO DAILYBB [facility] Stop: 08/27/20 06:29 Last Admin: 08/02/20 05:41 Dose: 50 mcg Documented by: Metoprolol Succinate (Metoprolol Succ 50mg Ext Rel Tab) 50 mg PO [facility] Stop: 08/31/20 08:59 Last Admin: 08/02/20 08:02 Dose: 50 mg Documented by: Nitroglycerin (Nitroglycerin Sl 0.4 Mg/Tab Tab) 0.4 mg SL UD PRN PRN Reason: Chest Pain Stop: 08/27/20 06:16 Olanzapine (Olanzapine 5 Mg Tablet) 5 mg PO HS [facility] Stop: 08/27/20 20:59 Last Admin: 08/01/20 20:16 Dose: 5 mg Documented by: Potassium Chloride (Potassium Chloride Pwd 20 Meq Pack) 40 meq PO BID [facility] Stop: 08/27/20 08:59 Last Admin: 07/30/20 07:37 Dose: 40 meq Documented by: Risperidone (Risperidone 0.5 Mg Tablet) 0.5 mg PO BID [facility] Stop: 08/27/20 08:59 Last Admin: 08/02/20 08:02 Dose: 0.5 mg Documented by: Spironolactone (Spironolactone 12.5 Mg Tab) 12.5 mg PO DAILY [facility] Stop: 08/29/20 08:59 Last Admin: 08/02/20 08:01 Dose: 12.5 mg Documented by: Tramadol HCl (Tramadol Hcl 50 Mg Tablet) 25 mg PO Q4H PRN PRN Reason: Pain Stop: 08/28/20 21:06 Last Admin: 08/01/20 20:20 Dose: 25 mg Documented by: Umeclidinium [place] (Umeclidinium [place] 62.5mcg/Blister 7 Puffs/Inhaler) 1 puffs INH DAILY [facility] Stop: 08/27/20 10:59 Last Admin: 08/02/20 08:01 Dose: 1 puffs Documented by:
[2020-08-02] MEDS: TRAMADOL HCL 50 MG TABLET PO PRN ×2 (14:18→20:40)
[2020-08-02] MEDS: ACETAMINOPHEN 325 MG TAB PO PRN (15:12)
[2020-08-02] MEDS: OLANZapine 5 MG TABLET PO SCH (20:40)
[2020-08-03] MEDS: LEVOTHYROXINE SODIUM 50 MCG TABLET PO SCH (06:09)
[2020-08-03] MEDS: TRAMADOL HCL 50 MG TABLET PO PRN ×4 (06:09→23:40)
[2020-08-03] MEDS: ENOXAPARIN INJ 40 MG/0.4 ML SYR SQ SCH (07:22)
[2020-08-03] MEDS: AMOXICILLIN 500 MG CAP PO SCH ×3 (07:22→20:55)
[2020-08-03] MEDS: ASPIRIN 81 MG ECTAB PO SCH (07:22)
[2020-08-03] MEDS: CLOPIDOGREL BISULFATE 75 MG TAB PO SCH (07:23)
[2020-08-03] MEDS: METOPROLOL SUCC 50MG EXT REL TAB PO SCH (07:23)
[2020-08-03] MEDS: FUROSEMIDE 40 MG TAB PO SCH (07:23)
[2020-08-03] MEDS: ATORVASTATIN 40 MG TAB PO SCH (07:23)
[2020-08-03] MEDS: risperiDONE 0.5 MG TABLET PO SCH ×2 (07:23→20:55)
[2020-08-03] MEDS: SPIRONOLACTONE 12.5 MG TAB PO SCH (07:23)
[2020-08-03] MEDS: CIPROFLOXACIN 500 MG TAB PO SCH ×2 (07:23→20:54)
[2020-08-03] MEDS: UMECLIDINIUM BROMIDE 62.5MCG/BLISTER 7 PUFFS/INHALER INH SCH (07:24)
[2020-08-03 07:28] LABS: BUN Creatinine Ratio 33.6 (10-20); Calcium 8.4 mg/dl (8.5-10.1); Creatinine Clr Calc Pharmacy 40.3 ml/min; Est GFR (African American) 48.7; Potassium 4.9 mmol/L (3.5-5.1)
--- NOTE | 2020-08-03 09:37 | Cardiology Progress Note ---
Date of Service August 03, 2020 Assessment & Plan (1) Decompensated heart failure: Clinically improved. Unclear if the "severe episode" he reference last night is related to heart failure. His examination is benign. His renal function suggests an element of intravascular depletion. I agree with transitioning him to the oral Lasix as currently prescribed. I do not believe he requires more aggressive diuresis at this point. (2) Medical non-compliance: This seems to be the biggest barrier to his health care and has resulted in multiple readmissions. (3) A-fib: Currently in sinus rhythm. Anticoagulation has been deferred due to medication noncompliance. (4) Ischemic cardiomyopathy: Continue current doses of metoprolol and spironolactone. (5) CAD (coronary artery disease): No current symptoms. Continue high-dose atorvastatin, aspirin and Plavix Admission and Anticipated Discharge Date Admission Date: July 28, 2020 Subjective this morning the patient reported a "severe" episode last evening when transitioning from the bed to the bathroom. He states that he "felt like I was going to ". This was due to "doing too things at once". I think he had an element of severe dyspnea associated with this activity. He did not report dizziness or lightheadedness. No chest pain. He appears to be tolerating a diet. He has not walked in the halls of done significant ambulation by his report. Review of Systems Review of Systems: For HPI. He seems more satisfied with the progress on his leg. Physical Exam Physical Exam: The patient is alert and oriented. Mood and affect appeared normal. He answered all questions appropriately but the responses or occasionally delusional. HEENT: Pupils are equal and reactive to light and accommodation. Extraocular movements are intact. The sclerae are anicteric. Poor dentition Neuro: Cranial nerves intact Neck: Patient's neck is supple. He has palpable carotid pulses bilaterally without bruits on auscultation. There is no evidence of jugular venous distention. The thyroid is not enlarged. Lungs: Clear to auscultation bilaterally. He has good air movement without use of accessory muscles. No rales wheezes or rhonchi. Some decreased breath sounds at the right base. Cardiac: Heart demonstrates a regular rate and rhythm. Normal S1 and S2. No murmurs on examination. Pulses: The patient has palpable radial pulses bilaterally that are equal in intensity Extremities: There was no evidence of hypoperfusion. There is no cyanosis or clubbing. Lymphedema and chronic changes associated with the right lower extremity. Mild edema and venous varicosities on the left lower leg. Right lower leg is bandaged. Skin: I did not appreciate any rashes on examination today. Results & Data ([facility]) Vital Signs (Past 12 Hours) Vital Signs Temp Pulse Pulse Resp BP Pulse Ox 08/03/20 09:28 66 08/03/20 03:00 36.2 C L 56 L 20 115/81 100 08/03/20 01:57 81 08/02/20 23:55 36.2 C L 67 20 96/62 L 94 Laboratory Results Abnormal Lab Results 08/03/20 06:28 Sodium 141 Potassium 4.9 Chloride 109 H Carbon Dioxide 21 Anion Gap 12.0 H BUN 55 H Creatinine 1.65 H Est Cr Clr Drug Dosing 40.3 Est GFR ( Amer) 48.7 Est GFR (Non-Af Amer) 42.0 BUN/Creatinine Ratio 33.6 H Glucose 79 Calcium 8.4 L PG Care Time/CCT Total # of Minutes Spent Total Time Spent with Patient: Total time spent is greater than 50% in coordination of care (as documented) at patient's floor/unit and/or counseling patient: Coding Level of Care Code 61902 Subseq Hosp Care Lvl 2 Diagnoses Decompensated heart failure I50.9 Medical non-compliance Z91.19 A-fib I48.91 Atrial fibrillation type: unspecified Ischemic cardiomyopathy I25.5 CAD (coronary artery disease) I25.10 (1) A-fib Atrial fibrillation type: unspecified Qualified Code(s): I48.91 - Unspecified atrial fibrillation
--- NOTE | 2020-08-03 14:27 | Hospitalist Progress Note ---
Date of Service August 03, 2020 Assessment & Plan (1) Noncompliance with medications: (2) Pleural effusion on right: (3) Acute on chronic systolic (congestive) heart failure: Acute on chronic systolic heart failure with right pleural effusion secondary to med noncompliance Patient does not take his meds at home When asked about this, he gives all kinds of reasons from fear to go to his bathroom, meds disappearing or meds not working at home. He also occasionally refuses certain meds in the hospital I think his psychiatric problem plays a role in this. Patient does not acknowledge he has any psychiatric problems Psychiatry was consulted previously, last time in June 2020, recommended risperidone, patient however declined to take it Pulmonology was consulted for right-sided pleural effusion, no plan for thoracentesis, continued IV diuretics BUN is increasing, will switch to p.o. Lasix, per cardiology recommendations likely 40 mg daily on discharge Close monitoring of I's and O's, and standing daily weights (4) Hypokalemia: Monitor and replete appropriately Now normalized (5) Lymphedema of right lower extremity: (6) Chronic cutaneous venous stasis ulcer: Wound care (7) Hypothyroidism: Continue levothyroxine 50mcg daily from last admission (8) Paranoid schizophrenia: Continue risperidone 0.5mg bid from recent psych recommendations if he agrees to take this -Zyprexa at bedtime -So far patient has been compliant with his psych medications (9) COPD with emphysema: Incruse inhaler per pulm recs (10) DVT prophylaxis: Lovenox sq -patient been refusing Disposition: Unclear at this point, PT recommends SNF Admission and Anticipated Discharge Date Admission Date: July 28, 2020 Subjective Patient says that he did not do well with physical therapy today. He needed wheelchair to be brought in, felt weak and " did not think he would make it". Currently he is sitting up in bed, in no acute distress. Jt wraps are applied to right calf. Patient says he was not urinating much today. Cardiology following. Review of Systems Review of Systems: All systems reviewed & are unremarkable except as noted in HPI & below Constitutional: no fever and no chills Respiratory: + dyspnea on exertion Cardiovascular: + edema; no palpitations Gastrointestinal: no abdominal pain, no nausea and no vomiting Physical Exam Physical Exam: Constitutional: Elderly slender male, sitting up in bed, in no acute distress Eyes: PERRL, conjunctivae normal, anicteric sclerae ENMT: external ear and nose normal, oropharynx normal Respiratory: normal respiratory effort; no respiratory distress, decreased breath sounds bilaterally, more decreased at the right lower lobe, no wheezes Cardiovascular: Rate/Rhythm: regular rate and regular rhythm S1 S2 Gastrointestinal (Abdomen): normal bowel sounds, soft, nontender to palpation Musculoskeletal: Right chronic leg lymphedema with areas of erythema, ulcer. (edema improved) Neurologic: PERRL, EOMI, no face palsy, no dysarthria, moves extremities spontaneously Genitourinary: + scrotum abnormality (Scrotal edema, improved) Results & Data Results & Data ([facility]) Vital Signs (Past 12 Hours) Vital Signs Temp Pulse Pulse Resp BP Pulse Ox 08/03/20 10:58 36.5 C 63 18 112/73 95 08/03/20 09:28 66 08/03/20 03:00 36.2 C L 56 L 20 115/81 100 Laboratory Results 08/03/20 Range/Units 06:28 Sodium 141 (136-145) mmol/L Potassium 4.9 (3.5-5.1) mmol/L Chloride 109 H (98-107) mmol/L Carbon Dioxide 21 (21-32) mmol/L Anion Gap 12.0 H (3-11) BUN 55 H (7-18) mg/dl Creatinine 1.65 H (0.6-1.4) mg/dl Est Cr Clr Drug Dosing 40.3 ml/min Est GFR ( Amer) 48.7 Est GFR (Non-Af Amer) 42.0 BUN/Creatinine Ratio 33.6 H (10-20) Glucose 79 (70-99) mg/dl Calcium 8.4 L (8.5-10.1) mg/dl Medications Administered Current Inpatient Medications Acetaminophen (Acetaminophen 325 Mg Tab) 650 mg PO Q4H PRN PRN Reason: Pain or Fever Stop: 08/27/20 06:16 Last Admin: 08/02/20 15:12 Dose: 650 mg Documented by: Amoxicillin (Amoxicillin 500 Mg Cap) 500 mg PO TID [facility]; Protocol Stop: 08/04/20 08:59 Last Admin: 08/03/20 13:33 Dose: 500 mg Documented by: Aspirin (Aspirin 81 Mg Ectab) 81 mg PO DAILY [facility] Stop: 08/27/20 08:59 Last Admin: 08/03/20 07:22 Dose: Not Given Documented by: Atorvastatin Calcium (Atorvastatin 40 Mg Tab) 80 mg PO QAM [facility] Stop: 08/27/20 08:59 Last Admin: 08/03/20 07:23 Dose: 80 mg Documented by: Ciprofloxacin (Ciprofloxacin 500 Mg Tab) 500 mg PO BID [facility]; Protocol Stop: 08/04/20 20:59 Last Admin: 08/03/20 07:23 Dose: 500 mg Documented by: Clopidogrel Bisulfate (Clopidogrel Bisulfate 75 Mg Tab) 75 mg PO QAM [facility] Stop: 08/27/20 08:59 Last Admin: 08/03/20 07:23 Dose: 75 mg Documented by: Enoxaparin Sodium (Enoxaparin Inj 40 Mg/0.4 Ml Syr) 40 mg SQ Q24H [facility] Stop: 08/27/20 08:59 Last Admin: 08/03/20 07:22 Dose: Not Given Documented by: Furosemide (Furosemide 40 Mg Tab) 40 mg PO QAM [facility] Stop: 09/02/20 08:59 Last Admin: 08/03/20 07:23 Dose: 40 mg Documented by: Levothyroxine Sodium (Levothyroxine Sodium 50 Mcg Tablet) 50 mcg PO DAILYBB [facility] Stop: 08/27/20 06:29 Last Admin: 08/03/20 06:09 Dose: 50 mcg Documented by: Metoprolol Succinate (Metoprolol Succ 50mg Ext Rel Tab) [facility] Stop: 08/31/20 08:59 Last Admin: 08/03/20 07:23 Dose: 50 mg Documented by: Nitroglycerin (Nitroglycerin Sl 0.4 Mg/Tab Tab) 0.4 mg SL UD PRN PRN Reason: Chest Pain Stop: 08/27/20 06:16 Olanzapine (Olanzapine 5 Mg Tablet) 5 mg PO HS [facility] Stop: 08/27/20 20:59 Last Admin: 08/02/20 20:40 Dose: 5 mg Documented by: Potassium Chloride (Potassium Chloride Pwd 20 Meq Pack) 40 meq PO BID [facility] Stop: 08/27/20 08:59 Last Admin: 07/30/20 07:37 Dose: 40 meq Documented by: Risperidone (Risperidone 0.5 Mg Tablet) 0.5 mg PO BID [facility] Stop: 08/27/20 08:59 Last Admin: 08/03/20 07:23 Dose: 0.5 mg Documented by: Spironolactone (Spironolactone 12.5 Mg Tab) 12.5 mg PO DAILY [facility] Stop: 08/29/20 08:59 Last Admin: 08/03/20 07:23 Dose: 12.5 mg Documented by: Tramadol HCl (Tramadol Hcl 50 Mg Tablet) 25 mg PO Q4H PRN PRN Reason: Pain Stop: 08/28/20 21:06 Last Admin: 08/03/20 13:49 Dose: 25 mg Documented by: Umeclidinium [place] (Umeclidinium [place] 62.5mcg/Blister 7 Puffs/Inhaler) 1 puffs INH DAILY [facility] Stop: 08/27/20 10:59 Last Admin: 08/03/20 07:24 Dose: 1 puffs Documented by:
[2020-08-03] MEDS ORDERED: ALBUMIN 25% 50 ML IV ONE (18:30)
[2020-08-03] MEDS: OLANZapine 5 MG TABLET PO SCH (20:54)
[2020-08-04] MEDS: LEVOTHYROXINE SODIUM 50 MCG TABLET PO SCH (05:51)
[2020-08-04] MEDS: TRAMADOL HCL 50 MG TABLET PO PRN ×2 (05:54→21:09)
[2020-08-04] MEDS: SPIRONOLACTONE 12.5 MG TAB PO SCH (07:31)
[2020-08-04] MEDS: CIPROFLOXACIN 500 MG TAB PO SCH (07:31)
[2020-08-04] MEDS: FUROSEMIDE 40 MG TAB PO SCH (07:31)
[2020-08-04] MEDS: ATORVASTATIN 40 MG TAB PO SCH (07:31)
[2020-08-04] MEDS: ASPIRIN 81 MG ECTAB PO SCH (07:32)
[2020-08-04] MEDS: ENOXAPARIN INJ 40 MG/0.4 ML SYR SQ SCH (07:32)
[2020-08-04] MEDS: risperiDONE 0.5 MG TABLET PO SCH ×2 (07:33→21:09)
[2020-08-04] MEDS: UMECLIDINIUM BROMIDE 62.5MCG/BLISTER 7 PUFFS/INHALER INH SCH (07:33)
[2020-08-04] MEDS: CLOPIDOGREL BISULFATE 75 MG TAB PO SCH (07:33)
[2020-08-04] MEDS: METOPROLOL SUCC 50MG EXT REL TAB PO SCH (07:33)
[2020-08-04 07:59] LABS: BUN Creatinine Ratio 36.8 (10-20); Calcium 8.3 mg/dl (8.5-10.1); Creatinine Clr Calc Pharmacy 41.3 ml/min; Est GFR (African American) 50.6; Est GFR (Non-African American) 43.6; Potassium 4.6 mmol/L (3.5-5.1)
--- NOTE | 2020-08-04 13:18 | Hospitalist Progress Note ---
Date of Service August 04, 2020 Assessment & Plan (1) Noncompliance with medications: (2) Pleural effusion on right: (3) Acute on chronic systolic (congestive) heart failure: Acute on chronic systolic heart failure with right pleural effusion secondary to med noncompliance Patient does not take his meds at home When asked about this, he gives all kinds of reasons from fear to go to his bathroom, meds disappearing or meds not working at home. He also occasionally refuses certain meds in the hospital I think his psychiatric problem plays a role in this. Patient does not acknowledge he has any psychiatric problems Psychiatry was consulted previously, last time in June 2020, recommended risperidone, patient however declined to take it Pulmonology was consulted for right-sided pleural effusion, no plan for thoracentesis, continued IV diuretics BUN is increasing, will switch to p.o. Lasix, per cardiology recommendations likely 40 mg daily on discharge Close monitoring of I's and O's, and standing daily weights (4) Hypokalemia: Monitor and replete appropriately Now normalized (5) Lymphedema of right lower extremity: (6) Chronic cutaneous venous stasis ulcer: Wound care -Lymphedema much improved (7) Hypothyroidism: Continue levothyroxine 50mcg daily from last admission (8) Paranoid schizophrenia: Continue risperidone 0.5mg bid from recent psych recommendations if he agrees to take this -Zyprexa at bedtime -So far patient has been compliant with his psych medications (9) COPD with emphysema: Incruse inhaler per pulm recs (10) DVT prophylaxis: Lovenox sq -patient been refusing Disposition: Unclear at this point, PT recommends SNF/ Rehab Admission and Anticipated Discharge Date Admission Date: July 28, 2020 Subjective Patient is lying in bed, in no acute distress. Denies any fevers, chills, chest pain. He continues to have exertional dyspnea. Review of Systems Review of Systems: All systems reviewed & are unremarkable except as noted in HPI & below Constitutional: no fever and no chills Respiratory: + dyspnea on exertion; no cough Cardiovascular: + edema (LE much improved); no palpitations Gastrointestinal: no abdominal pain, no nausea and no vomiting Physical Exam Physical Exam: Constitutional: Elderly slender male, sitting up in bed, in no acute distress Eyes: PERRL, conjunctivae normal, anicteric sclerae ENMT: external ear and nose normal, oropharynx normal Respiratory: normal respiratory effort; no respiratory distress, decreased breath sounds bilaterally, more decreased at the right lower lobe, no wheezes Cardiovascular: Rate/Rhythm: regular rate and regular rhythm S1 S2 Gastrointestinal (Abdomen): normal bowel sounds, soft, nontender to palpation Musculoskeletal: Right chronic leg lymphedema with areas of erythema, ulcer. (edema improved) Neurologic: PERRL, EOMI, no face palsy, no dysarthria, moves extremities spontaneously Genitourinary: + scrotum abnormality (Scrotal edema, improved) Results & Data Results & Data ([facility]) Vital Signs (Past 12 Hours) Vital Signs Temp Pulse Pulse Resp BP BP Pulse Ox 08/04/20 13:07 64 08/04/20 11:15 36.7 C 62 18 98/50 L 94 08/04/20 07:05 36.7 C 58 L 18 128/83 100 08/04/20 02:45 36.8 C 60 22 113/82 96 Laboratory Results 08/04/20 Range/Units 06:33 Sodium 141 (136-145) mmol/L Potassium 4.6 (3.5-5.1) mmol/L Chloride 108 H (98-107) mmol/L Carbon Dioxide 21 (21-32) mmol/L Anion Gap 11.0 (3-11) BUN 59 H (7-18) mg/dl Creatinine 1.60 H (0.6-1.4) mg/dl Est Cr Clr Drug Dosing 41.3 ml/min Est GFR ( Amer) 50.6 Est GFR (Non-Af Amer) 43.6 BUN/Creatinine Ratio 36.8 H (10-20) Glucose 99 (70-99) mg/dl Calcium 8.3 L (8.5-10.1) mg/dl Medications Administered Current Inpatient Medications Acetaminophen (Acetaminophen 325 Mg Tab) 650 mg PO Q4H PRN PRN Reason: Pain or Fever Stop: 08/27/20 06:16 Last Admin: 08/02/20 15:12 Dose: 650 mg Documented by: Aspirin (Aspirin 81 Mg Ectab) 81 mg PO DAILY [facility] Stop: 08/27/20 08:59 Last Admin: 08/04/20 07:32 Dose: Not Given Documented by: Atorvastatin Calcium (Atorvastatin 40 Mg Tab) 80 mg PO QAM [facility] Stop: 08/27/20 08:59 Last Admin: 08/04/20 07:31 Dose: 20 mg Documented by: Ciprofloxacin (Ciprofloxacin 500 Mg Tab) 500 mg PO BID [facility]; Protocol Stop: 08/04/20 20:59 Last Admin: 08/04/20 07:31 Dose: 500 mg Documented by: Clopidogrel Bisulfate (Clopidogrel Bisulfate 75 Mg Tab) 75 mg PO QAM [facility] [place] Stop: 08/27/20 08:59 Last Admin: 08/04/20 07:33 Dose: 75 mg Documented by: Enoxaparin Sodium (Enoxaparin Inj 40 Mg/0.4 Ml Syr) 40 mg SQ Q24H [facility] Stop: 08/27/20 08:59 Last Admin: 08/04/20 07:32 Dose: Not Given Documented by: Furosemide (Furosemide 40 Mg Tab) 40 mg PO QAM [facility] Stop: 09/02/20 08:59 Last Admin: 08/04/20 07:31 Dose: 40 mg Documented by: Levothyroxine Sodium (Levothyroxine Sodium 50 Mcg Tablet) [facility] Stop: 08/27/20 06:29 Last Admin: 08/04/20 05:51 Dose: 50 mcg Documented by: Metoprolol Succinate (Metoprolol Succ 50mg Ext Rel Tab) 50 mg PO QAM [facility] [place] Stop: 08/31/20 08:59 Last Admin: 08/04/20 07:33 Dose: 50 mg Documented by: Nitroglycerin (Nitroglycerin Sl 0.4 Mg/Tab Tab) 0.4 mg SL UD PRN PRN Reason: Chest Pain Stop: 08/27/20 06:16 Olanzapine (Olanzapine 5 Mg Tablet) 5 mg PO HS [facility] Stop: 08/27/20 20:59 Last Admin: 08/03/20 20:54 Dose: 5 mg Documented by: Potassium Chloride (Potassium Chloride Pwd 20 Meq Pack) 40 meq PO BID [facility] [place] Stop: 08/27/20 08:59 Last Admin: 07/30/20 07:37 Dose: 40 meq Documented by: Risperidone (Risperidone 0.5 Mg Tablet) 0.5 mg PO BID [facility] [place] Stop: 08/27/20 08:59 Last Admin: 08/04/20 07:33 Dose: 0.5 mg Documented by: Spironolactone (Spironolactone 12.5 Mg Tab) 12.5 mg PO DAILY [facility] [place] Stop: 08/29/20 08:59 Last Admin: 08/04/20 07:31 Dose: 12.5 mg Documented by: Tramadol HCl (Tramadol Hcl 50 Mg Tablet) 25 mg PO Q4H PRN PRN Reason: Pain Stop: 08/28/20 21:06 Last Admin: 08/04/20 05:54 Dose: 25 mg Documented by: Umeclidinium [place] (Umeclidinium [place] 62.5mcg/Blister 7 Puffs/Inhaler) 1 puffs INH DAILY [facility] Stop: 08/27/20 10:59 Last Admin: 08/04/20 07:33 Dose: 1 puffs Documented by:
[2020-08-04] MEDS ORDERED: ALBUMIN 25% 50 ML IV ONE (15:00)
[2020-08-04] MEDS: OLANZapine 5 MG TABLET PO SCH (21:08)
[2020-08-05] MEDS: LEVOTHYROXINE SODIUM 50 MCG TABLET PO SCH (06:23)
--- NOTE | 2020-08-05 07:39 | Hospitalist Progress Note ---
Date of Service August 05, 2020 Assessment & Plan (1) Noncompliance with medications: (2) Pleural effusion on right: (3) Acute on chronic systolic (congestive) heart failure: Acute on chronic systolic heart failure with right pleural effusion secondary to med noncompliance Patient does not take his medications at home When asked about this, he gives all kinds of reasons from fear to go to his bathroom, meds disappearing or meds not working at home. He also occasionally refuses certain meds in the hospital I think his psychiatric problem plays a role in this. Patient does not acknowledge he has any psychiatric problems Psychiatry was consulted previously on multiple occasions, last time in June 2020, recommended risperidone, patient however declined to take it at that time Pulmonology was consulted for right-sided pleural effusion, no plan for thoracentesis, continued IV diuretics BUN increased, switched to p.o. Lasix, per cardiology recommendations likely 40 mg daily on discharge wanted to improved diuresis with albumin however patient declines Close monitoring of I's and O's, and standing daily weights (4) Hypokalemia: Monitor and replete appropriately Now normalized (5) Lymphedema of right lower extremity: (6) Chronic cutaneous venous stasis ulcer: wound infection 2/2/ above -Wound care consulted -Lymphedema much improved -Wound culture grew Pseudomonas, ciprofloxacin started on admission, Abx course finished (7) Hypothyroidism: Continue levothyroxine 50mcg daily from last admission (8) Paranoid schizophrenia: Continue risperidone 0.5mg bid from recent psych recommendations if he agrees to take this -Zyprexa at bedtime -So far patient has been compliant with his psych medications (9) COPD with emphysema: Incruse inhaler per pulm recs (10) DVT prophylaxis: Lovenox sq - patient been refusing Disposition: Unclear at this point, PT recommends SNF/ Rehab Admission and Anticipated Discharge Date Admission Date: July 28, 2020 Subjective Patient is sitting up in bed, in no acute distress. Says that he feels better today but he has "to do one thing at a time". He still has significant right thigh edema, however due to his renal function, they would expect to p.o. form. Discussed possible IV albumin, however patient is very hesitant and declines on several occasions. [facility]position possibly to [facility], patient is not interested in any other rehab or SNF. Review of Systems Review of Systems: All systems reviewed & are unremarkable except as noted in HPI & below Constitutional: no fever and no chills Respiratory: + dyspnea on exertion (improved); no cough Cardiovascular: + edema (Right LE much improved); no palpitations Gastrointestinal: no abdominal pain, no nausea and no vomiting Physical Exam Physical Exam: Constitutional: Elderly slender male, sitting up in bed, in no acute distress Eyes: PERRL, conjunctivae normal, anicteric sclerae ENMT: external ear and nose normal, oropharynx normal Respiratory: normal respiratory effort; no respiratory distress, decreased breath sounds bilaterally, more decreased at the right lower lobe, no wheezes Cardiovascular: Rate/Rhythm: regular rate and regular rhythm S1 S2 Gastrointestinal (Abdomen): normal bowel sounds, soft, nontender to palpation Musculoskeletal: Right chronic leg lymphedema with areas of erythema, ulcer. (edema improved) Neurologic: PERRL, EOMI, no face palsy, no dysarthria, moves extremities spontaneously Genitourinary: + scrotum abnormality (Scrotal edema, improved) Results & Data Results & Data ([facility]) Vital Signs (Past 12 Hours) Vital Signs Temp Pulse Pulse Resp BP Pulse Ox 08/05/20 07:06 36.5 C 63 18 139/88 100 08/05/20 00:00 91 H 08/04/20 23:13 36.4 C L 65 18 121/82 93 Laboratory Results 08/05/20 Range/Units 07:21 Sodium 143 (136-145) mmol/L Potassium 4.2 (3.5-5.1) mmol/L Chloride 111 H (98-107) mmol/L Carbon Dioxide 21 (21-32) mmol/L Anion Gap 12.0 H (3-11) BUN 58 H (7-18) mg/dl Creatinine 1.56 H (0.6-1.4) mg/dl Est Cr Clr Drug Dosing 41.7 ml/min Est GFR ( Amer) 52.1 Est GFR (Non-Af Amer) 45.0 BUN/Creatinine Ratio 37.1 H (10-20) Glucose 101 H (70-99) mg/dl Calcium 8.4 L (8.5-10.1) mg/dl Medications Administered Current Inpatient Medications Acetaminophen (Acetaminophen 325 Mg Tab) 650 mg PO Q4H PRN PRN Reason: Pain or Fever Stop: 08/27/20 06:16 Last Admin: 08/02/20 15:12 Dose: 650 mg Documented by: Aspirin (Aspirin 81 Mg Ectab) 81 mg PO DAILY [facility] Stop: 08/27/20 08:59 Last Admin: 08/05/20 08:18 Dose: Not Given Documented by: Atorvastatin Calcium (Atorvastatin 40 Mg Tab) 80 mg PO QAM [facility] Stop: 08/27/20 08:59 Last Admin: 08/05/20 08:21 Dose: 20 mg Documented by: Clopidogrel Bisulfate (Clopidogrel Bisulfate 75 Mg Tab) 75 mg PO QAM [facility] Stop: 08/27/20 08:59 Last Admin: 08/05/20 08:23 Dose: 75 mg Documented by: Enoxaparin Sodium (Enoxaparin Inj 40 Mg/0.4 Ml Syr) 40 mg SQ Q24H [facility] Stop: 08/27/20 08:59 Last Admin: 08/05/20 08:19 Dose: Not Given Documented by: Furosemide (Furosemide 40 Mg Tab) 40 mg PO QAM [facility] Stop: 09/02/20 08:59 Last Admin: 08/05/20 08:20 Dose: 40 mg Documented by: Levothyroxine Sodium (Levothyroxine Sodium 50 Mcg Tablet) 50 mcg PO DAILYBB [facility] Stop: 08/27/20 06:29 Last Admin: 08/05/20 06:23 Dose: 50 mcg Documented by: Metoprolol Succinate (Metoprolol Succ 50mg Ext Rel Tab) [facility] Stop: 08/31/20 08:59 Last Admin: 08/05/20 08:20 Dose: 50 mg Documented by: Nitroglycerin (Nitroglycerin Sl 0.4 Mg/Tab Tab) 0.4 mg SL UD PRN PRN Reason: Chest Pain Stop: 08/27/20 06:16 Olanzapine (Olanzapine 5 Mg Tablet) 5 mg PO HS [facility] Stop: 08/27/20 20:59 Last Admin: 08/04/20 21:08 Dose: 5 mg Documented by: Potassium Chloride (Potassium Chloride Pwd 20 Meq Pack) 40 meq PO BID [facility] Stop: 08/27/20 08:59 Last Admin: 07/30/20 07:37 Dose: 40 meq Documented by: Risperidone (Risperidone 0.5 Mg Tablet) 0.5 mg PO BID [facility] Stop: 08/27/20 08:59 Last Admin: 08/05/20 08:21 Dose: 0.5 mg Documented by: Spironolactone (Spironolactone 12.5 Mg Tab) 12.5 mg PO DAILY [facility] Stop: 08/29/20 08:59 Last Admin: 08/05/20 08:21 Dose: 12.5 mg Documented by: Tramadol HCl (Tramadol Hcl 50 Mg Tablet) 25 mg PO Q4H PRN PRN Reason: Pain Stop: 08/28/20 21:06 Last Admin: 08/05/20 08:31 Dose: 25 mg Documented by: Umeclidinium [place] (Umeclidinium [place] 62.5mcg/Blister 7 Puffs/Inhaler) 1 puffs INH DAILY [facility] Stop: 08/27/20 10:59 Last Admin: 08/05/20 08:21 Dose: 1 puffs Documented by:
[2020-08-05 08:17] LABS: BUN Creatinine Ratio 37.1 (10-20); Calcium 8.4 mg/dl (8.5-10.1); Creatinine Clr Calc Pharmacy 41.7 ml/min; Est GFR (African American) 52.1; Potassium 4.2 mmol/L (3.5-5.1)
[2020-08-05] MEDS: ASPIRIN 81 MG ECTAB PO SCH (08:18)
[2020-08-05] MEDS: ENOXAPARIN INJ 40 MG/0.4 ML SYR SQ SCH (08:19)
[2020-08-05] MEDS: FUROSEMIDE 40 MG TAB PO SCH (08:20)
[2020-08-05] MEDS: METOPROLOL SUCC 50MG EXT REL TAB PO SCH (08:20)
[2020-08-05] MEDS: SPIRONOLACTONE 12.5 MG TAB PO SCH (08:21)
[2020-08-05] MEDS: ATORVASTATIN 40 MG TAB PO SCH (08:21)
[2020-08-05] MEDS: risperiDONE 0.5 MG TABLET PO SCH ×2 (08:21→20:24)
[2020-08-05] MEDS: UMECLIDINIUM BROMIDE 62.5MCG/BLISTER 7 PUFFS/INHALER INH SCH (08:21)
[2020-08-05] MEDS: CLOPIDOGREL BISULFATE 75 MG TAB PO SCH (08:23)
[2020-08-05] MEDS: TRAMADOL HCL 50 MG TABLET PO PRN ×2 (08:31→19:22)
[2020-08-05] MEDS ORDERED: ALBUMIN 25% 50 ML IV ONE (14:43)
[2020-08-05] MEDS: OLANZapine 5 MG TABLET PO SCH (20:24)
[2020-08-06] MEDS: LEVOTHYROXINE SODIUM 50 MCG TABLET PO SCH (05:59)
[2020-08-06 08:02] LABS: BUN Creatinine Ratio 38.7 (10-20); Calcium 8.1 mg/dl (8.5-10.1); Creatinine Clr Calc Pharmacy 48.8 ml/min; Est GFR (African American) 62.1; Est GFR (Non-African American) 53.6; Potassium 4.1 mmol/L (3.5-5.1)
[2020-08-06] MEDS: SPIRONOLACTONE 12.5 MG TAB PO SCH (09:23)
[2020-08-06] MEDS: risperiDONE 0.5 MG TABLET PO SCH (09:23)
[2020-08-06] MEDS: FUROSEMIDE 40 MG TAB PO SCH (09:24)
[2020-08-06] MEDS: ASPIRIN 81 MG ECTAB PO SCH (09:24)
[2020-08-06] MEDS: ATORVASTATIN 40 MG TAB PO SCH (09:24)
[2020-08-06] MEDS: CLOPIDOGREL BISULFATE 75 MG TAB PO SCH (09:24)
[2020-08-06] MEDS: ENOXAPARIN INJ 40 MG/0.4 ML SYR SQ SCH (09:24)
[2020-08-06] MEDS: METOPROLOL SUCC 50MG EXT REL TAB PO SCH (09:25)
[2020-08-06] MEDS: UMECLIDINIUM BROMIDE 62.5MCG/BLISTER 7 PUFFS/INHALER INH SCH (09:25)
[2020-08-06] MEDS: TRAMADOL HCL 50 MG TABLET PO PRN (09:31)
--- NOTE | 2020-08-06 12:02 | Hospitalist Progress Note ---
Date of Service August 06, 2020 Assessment & Plan (1) Noncompliance with medications: (2) Pleural effusion on right: Pulmonology was consulted for right-sided pleural effusion, no plan for thoracentesis, continued IV diuretics BUN increased, switched to p.o. Lasix, per cardiology recommendations likely 40 mg daily on discharge wanted to improved diuresis with albumin however patient declines Close monitoring of I's and O's, and standing daily weights (3) Acute on chronic systolic (congestive) heart failure: Acute on chronic systolic heart failure with right pleural effusion secondary to med noncompliance He remains to be noncompliant Part of his noncompliance is due to his Psychiatric condition He gives all kinds of reasons from fear to go to his bathroom, meds disappearing or meds not working at home. He also occasionally refuses certain meds in the hospital Patient does not acknowledge he has any psychiatric problems Psychiatry was consulted previously on multiple occasions, last time in June 2020, recommended risperidone, patient however declined to take it at that time (4) Hypokalemia: Monitor and replete appropriately Now normalized (5) Lymphedema of right lower extremity: Chronic issue and is complicated by on going infection (6) Chronic cutaneous venous stasis ulcer: wound infection 2// above -Wound care consulted -Lymphedema much improved -Wound culture grew Pseudomonas, ciprofloxacin started on admission, Abx course finished -Advised to continue wound care as an Outpatient (7) Hypothyroidism: Continue levothyroxine 50mcg daily from last admission (8) Paranoid schizophrenia: Continue risperidone 0.5mg bid from recent psych recommendations if he agrees to take this -Zyprexa at bedtime -So far patient has been compliant with his psych medications (9) COPD with emphysema: Incruse inhaler per pulm recs No acute issue (10) DVT prophylaxis: Lovenox sq - patient been refusing Disposition: Unclear at this point, PT recommends SNF/ Rehab Will be transferred to [facility] this afternoon. Admission and Anticipated Discharge Date Admission Date: July 28, 2020 Subjective 08/06/2020 The patient was seen and examined in medical telemetry unit He has been feeling a lot better today Denies any significant symptoms Denies any chest pain, shortness of breath, palpitation, any fever and/or chills and right lower extremity is slightly better Review of Systems Review of Systems: All systems reviewed and are unremarkable except as noted below Musculoskeletal: Right lower extremity is swollen. Cellulitis with bandage applied whole of the leg. Chronic edema may be complicated by lymphedema Physical Exam Physical Exam: Lying in bed comfortably Constitutional: + thin; no acute distress and not ill appearing Eyes: PERRL, conjunctivae normal, anicteric sclerae ENMT: external ear and nose normal, oropharynx normal Neck: trachea midline, no thyromegaly Respiratory: normal respiratory effort; no respiratory distress Auscultation: lungs clear to auscultation bilaterally; no crackles Cardiovascular: Rate/Rhythm: regular rate and regular rhythm Heart Sounds: no murmur Gastrointestinal (Abdomen): Inspection/Auscultation: abdomen normal to inspection and normal bowel sounds; abdomen not distended Percussion/Palpation: abdomen soft; abdomen nontender Musculoskeletal: No acute arthritis involving any joint Has chronic edema involving the right lower extremity with associated ischemic changes and chronic inflammation secondary to cellulitis Neurologic: moves all extremities; no focal motor deficits Alert, awake and oriented x3 Results & Data Results & Data ([facility]) Vital Signs (Past 12 Hours) Vital Signs Temp Pulse Pulse Resp BP Pulse Ox 08/06/20 07:12 70 08/06/20 07:01 36.7 C 63 16 105/69 96 08/06/20 00:08 58 L Laboratory Results [facility] 08/06/20 06:55 Sodium 145 Potassium 4.1 Chloride 114 H Carbon Dioxide 24 BUN 52 H Creatinine 1.35 Glucose 80 Calcium 8.1 L Medications Administered Current Inpatient Medications Acetaminophen (Acetaminophen 325 Mg Tab) 650 mg PO Q4H PRN PRN Reason: Pain or Fever Stop: 08/27/20 06:16 Last Admin: 08/02/20 15:12 Dose: 650 mg Documented by: Aspirin (Aspirin 81 Mg Ectab) 81 mg PO DAILY [facility] Stop: 08/27/20 08:59 Last Admin: 08/06/20 09:24 Dose: 81 mg Documented by: Atorvastatin Calcium (Atorvastatin 40 Mg Tab) 80 mg PO QAM [facility] Stop: 08/27/20 08:59 Last Admin: 08/06/20 09:24 Dose: 20 mg Documented by: Clopidogrel Bisulfate (Clopidogrel Bisulfate 75 Mg Tab) 75 mg PO QAM [facility] Stop: 08/27/20 08:59 Last Admin: 08/06/20 09:24 Dose: 75 mg Documented by: Enoxaparin Sodium (Enoxaparin Inj 40 Mg/0.4 Ml Syr) 40 mg SQ Q24H [facility] Stop: 08/27/20 08:59 Last Admin: 08/06/20 09:24 Dose: Not Given Documented by: Furosemide (Furosemide 40 Mg Tab) 40 mg PO QAM [facility] Stop: 09/02/20 08:59 Last Admin: 08/06/20 09:24 Dose: 40 mg Documented by: Levothyroxine Sodium (Levothyroxine Sodium 50 Mcg Tablet) 50 mcg PO DAILYBB [facility] Stop: 08/27/20 06:29 Last Admin: 08/06/20 05:59 Dose: 50 mcg Documented by: Metoprolol Succinate (Metoprolol Succ 50mg Ext Rel Tab) 50 mg PO QAM [facility] Stop: 08/31/20 08:59 Last Admin: 08/06/20 09:25 Dose: 50 mg Documented by: Nitroglycerin (Nitroglycerin Sl 0.4 Mg/Tab Tab) 0.4 mg SL UD PRN PRN Reason: Chest Pain Stop: 08/27/20 06:16 Olanzapine (Olanzapine 5 Mg Tablet) 5 mg PO HS [facility] Stop: 08/27/20 20:59 Last Admin: 08/05/20 20:24 Dose: 5 mg Documented by: Potassium Chloride (Potassium Chloride Pwd 20 Meq Pack) 40 meq PO BID [facility] Stop: 08/27/20 08:59 Last Admin: 07/30/20 07:37 Dose: 40 meq Documented by: Risperidone (Risperidone 0.5 Mg Tablet) 0.5 mg PO BID [facility] Stop: 08/27/20 08:59 Last Admin: 08/06/20 09:23 Dose: 0.5 mg Documented by: Spironolactone (Spironolactone 12.5 Mg Tab) 12.5 mg PO DAILY [facility] Stop: 08/29/20 08:59 Last Admin: 08/06/20 09:23 Dose: 12.5 mg Documented by: Tramadol HCl (Tramadol Hcl 50 Mg Tablet) 25 mg PO Q4H PRN PRN Reason: Pain Stop: 08/28/20 21:06 Last Admin: 08/06/20 09:31 Dose: 25 mg Documented by: Umeclidinium [place] (Umeclidinium [place] 62.5mcg/Blister 7 Puffs/Inhaler) 1 puffs INH DAILY [facility] Stop: 08/27/20 10:59 Last Admin: 08/06/20 09:25 Dose: 1 puffs Documented by:
--- NOTE | 2020-08-07 07:43 | Discharge Summary ---
Date of Service August 07, 2020 Admission HPI Per Admitting Provider DICTATED BY: Jaun Sorensen MD DATE OF ADMISSION: 07/28/2020 CHIEF COMPLAINT: Shortness of breath, lower extremity edema. HISTORY OF PRESENT ILLNESS: This is a 70-year-old male with past medical history significant for ischemic cardiomyopathy with EF of 15% to 20%, severe mitral regurgitation, CAD status post stent, hypertension, history of paroxysmal atrial fibrillation, paranoid schizophrenia, past history of DVT, history of testicular cancer status post surgery and chemotherapy, past tobacco abuse, chronic anemia, baseline hemoglobin around 10-11, chronic lymphedema, hypothyroidism, history of chronic medication noncompliance and chronic lower extremity wounds. Presents with shortness of breath on exertion and scrotal edema and he says the right lower extremity wound was healed, but again it has opened up. The patient was recently in the hospital on 06/20/2020 to 06/25/2020, was discharged back to his home. He says he is staying in an apartment. He gets weekly grocery supply. He says he is not in contact with anyone except when he gets grocery supply every week. He says today suddenly his scrotal edema got increased and he is getting short of breath on minimal exertion and also his lower extremity wound has opened up, that is what prompted him to come to the ER. He says he gets chest pain on and off, but right now he does not have any chest pain and right now he does not have any nausea. He says appetite is okay, he swallows okay. He gets headaches, but currently no headache, he has some blurred visions. He says he sees a person front of his right eye. He says the person is blocking his vision. He says he has chronic cough. He gets alternative diarrhea and constipation. He says that he has decreased urination. He is not taking any of his medications. He is noncompliant with medications generally.Currently in the ER he is resting comfortably and hemodynamically stable, saturating fine on room air. Labs showed potassium of 2.5. His D-dimer was elevated at 1090. CTA of the chest was done, there was no PE, but shows a moderate right pleural effusion. Admission Exam Per Admitting Provider GENERAL: The patient is of moderate built, not in acute distress. VITAL SIGNS: Temperature 37, pulse 82, respiratory rate 21, blood pressure 134/100, oxygen 98% on room air. HEENT: Pupils equal, round, and reactive to light. Oral mucosa dry. NECK: No JVD, no neck masses seen. Supple. CARDIOVASCULAR: S1, S2 heard, regular rate and rhythm, no murmur, no gallop. RESPIRATORY SYSTEM: Normal AP diameter. No accessory muscle use. Mild bibasilar crackles. No wheezing. ABDOMEN: Soft, bowel sounds present. Mild distention. No guarding, no rigidity. CENTRAL NERVOUS SYSTEM: Cranial nerves II-XII grossly intact, nonfocal. EXTREMITIES: Right lower extremity chronic wound with some drainage seen. Principal Diagnosis Acute on chronic systolic heart failure, noncompliant with medications, right- sided pleural effusion, chronic cutaneous venous stasis ulcer, right lower extremity lymphedema paranoid schizophrenia, COPD Discharge Exam Constitutional + thin; no acute distress and not ill appearing Eyes PERRL, conjunctivae normal, anicteric sclerae ENMT external ear and nose normal, oropharynx normal Neck trachea midline, no thyromegaly Respiratory normal respiratory effort; no respiratory distress Auscultation: lungs clear to auscultation bilaterally; no crackles Cardiovascular Rate/Rhythm: regular rate and regular rhythm Heart Sounds: no murmur Gastrointestinal (Abdomen) Inspection/Auscultation: abdomen normal to inspection and normal bowel sounds; abdomen not distended Percussion/Palpation: abdomen soft; abdomen nontender Neurologic moves all extremities; no focal motor deficits Discharge Data Allergies Allergy/AdvReac Type Severity Reaction Status Date / Time horse dander Allergy Unknown Unknown Verified 07/28/20 01:51 tetanus toxoid, adsorbed Allergy Unknown Unknown Verified 07/28/20 01:51 Consultations 07/28/20 04:27 ED Decision to Admit Stat 07/28/20 06:17 Consult Case Management - Discharge Planning Routine 07/28/20 08:00 Consult Cardiology Routine Consult Pulmonology Routine Ordered Studies 07/28/20 02:28 CT angio chest PE protocol Urgent Hospital Course (1) Noncompliance with medications: (2) Pleural effusion on right: Pulmonology was consulted for right-sided pleural effusion, no plan for thoracentesis, continued IV diuretics BUN increased, switched to p.o. Lasix, per cardiology recommendations likely 40 mg daily on discharge wanted to improved diuresis with albumin however patient declines Close monitoring of I's and O's, and standing daily weights (3) Acute on chronic systolic (congestive) heart failure: Acute on chronic systolic heart failure with right pleural effusion secondary to med noncompliance He remains to be noncompliant Part of his noncompliance is due to his Psychiatric condition He gives all kinds of reasons from fear to go to his bathroom, meds disappearing or meds not working at home. He also occasionally refuses certain meds in the hospital Patient does not acknowledge he has any psychiatric problems Psychiatry was consulted previously on multiple occasions, last time in June 2020, recommended risperidone, patient however declined to take it at that time (4) Hypokalemia: Monitor and replete appropriately Now normalized (5) Lymphedema of right lower extremity: Chronic issue and is complicated by on going infection (6) Chronic cutaneous venous stasis ulcer: wound infection 2// above -Wound care consulted -Lymphedema much improved -Wound culture grew Pseudomonas, ciprofloxacin started on admission, Abx course finished -Advised to continue wound care as an Outpatient (7) Hypothyroidism: Continue levothyroxine 50mcg daily from last admission (8) Paranoid schizophrenia: Continue risperidone 0.5mg bid from recent psych recommendations if he agrees to take this -Zyprexa at bedtime -So far patient has been compliant with his psych medications (9) COPD with emphysema: Incruse inhaler per pulm recs No acute issue (10) DVT prophylaxis: Lovenox sq - patient been refusing Disposition: Unclear at this point, PT recommends SNF/ Rehab Will be transferred to [facility] this afternoon. Total Time Total Time Spent Total Time Spent (In Minutes): 35 minutes Total Time Includes: Examination of the Patient, Discharge Planning, Medication Reconciliation and Communication With Other Providers Discharge Plan Discharge Items Patient Disposition: Transfer Inpatient Rehab Fac Reason For Visit: SOB / EDEMA Discharge Diagnosis: Acute on chronic systolic heart failure, noncompliant with medications, right- sided pleural effusion, chronic cutaneous venous stasis ulcer, right lower extremity lymphedema paranoid schizophrenia, COPD Condition on Discharge: Fair Activity: Resume your previous activity Non-emergency contact: Primary Care Provider Call non-emergency contact if: you have any medication questions and your symptoms worsen Follow-up/Referrals: PCP,NO [Primary Care Provider] - Diet: Heart Healthy and Low Sodium (2gm) Fluids: 1800ml (7 cups) Addtl Attending Provider Instructions: Please take medications as advised Continue wound care as advised by the wound care nurse Pending Studies at Discharge: No Stand-Alone Forms: My [facility] Skilled Items Patient informed of condition?: Yes DNR: No Discharge Level of Care: Skilled Communicable Disease: No Discharge Prognosis: Stable Lines: None Urinary Catheter: No Medications and DC Order Prescriptions: New furosemide 40 mg Tablet 40 mg PO QAM 30 Days Qty: 30 RF: 0 atorvastatin 40 mg Tablet 80 mg PO QAM 30 Days Qty: 60 RF: 0 metoprolol succinate 50 mg Tablet Extended Release 24 Hr 50 mg PO QAM 30 Days Qty: 30 RF: 0 olanzapine 5 mg Tablet 5 mg PO HS 30 Days Qty: 30 RF: 0 clopidogrel 75 mg Tablet 75 mg PO QAM 30 Days Qty: 30 RF: 0 aspirin 81 mg Tablet,Delayed Release (Dr/Ec) 81 mg PO DAILY 30 Days Qty: 30 RF: 0 tramadol 50 mg Tablet 25 mg PO Q4H PRN (Reason: pain) 5 Days Qty: 12 RF: 0 spironolactone 25 mg Tablet 12.5 mg PO DAILY 30 Days Qty: 15 RF: 0 potassium chloride 20 mEq Packet 20 meq PO BID 30 Days Qty: 60 RF: 0 levothyroxine [Synthroid] 50 mcg Tablet 50 mcg PO DAILYBB 30 Days Qty: 30 RF: 0 nitroglycerin [Nitrostat] 0.4 mg Tablet, Sublingual 0.4 mg sublingual UD PRN (Reason: chest pain) 30 Days Qty: 30 RF: 0 risperidone 0.5 mg Tablet 0.5 mg PO BID 30 Days Qty: 60 RF: 0 Incruse Ellipta 62.5 mcg/actuation Blister With Device 1 puff inhalation DAILY 30 Days Qty: 1 RF: 0 No Action No Known Home Medications RF: 0 Discharge Orders: Discharge Order (Routine); Ordered 08/06/20 Ordered By: Meredith Gonzalez Admission Data Admit Date/Time: 07/28/20 05:09 Attending Provider: Meredith Gonzalez Admit Provider: Jaun Sorensen Primary Care Provider: PCP,NO Other Providers: Jaun Sorensen ; Jenaro Carter ; Yovana Rodriguez ; Jailene Mcgraw I. ; [facility] ; Junaid Enciso Other Interventions: Discharge Summary Assessment (RN) Last Done: 08/06/20 12:36
== END 2020-08-06 14:38 | DRG 292 ==
LOC: ED 01:21 → SUATTDRO 05:09 → 2E 05:09 → 2N 20:53

== ENCOUNTER 2020-09-30 22:37 | Inpatient (IN) ==
[2020-09-30] MEDS ORDERED: ALBUT/IPRATROP 3MG/0.5MG NEB 3 ML VIAL NEB STA (23:59)
[2020-10-01 00:09] LABS: Basophils # (auto) 0.01 K/uL (0-0.2); Basophils % (auto) 0.2 %; Eosinophils # (auto) 0.05 K/uL (0-0.5); Eosinophils % (auto) 1.1 %; Hematocrit (blood only) 36.9 % (42-52); Hemoglobin 11.1 g/dL (14.0-18.0); Immature Granulocytes # (auto) 0.01 K/uL (0.00-0.02); Immature Granulocytes % (auto) 0.2 %; Lymphocytes # (auto) 0.64 K/uL (1.2-3.4); Lymphocytes % (auto) 13.9 %; Mean Corpuscular Hemoglobin 24.1 pg (25-34); Mean Corpuscular Hgb Conc 30.1 g/dL (32-36); Mean Corpuscular Volume 80.2 fL (80-100); Mean Platelet Volume 10.1 fL (7.4-10.4); Monocytes # (auto) 0.41 K/uL (0.11-0.59); Monocytes % (auto) 8.9 %; Neutrophils # (auto) 3.47 K/uL (1.4-6.5); Neutrophils % (auto) 75.7 %; Platelet Count 198 K/uL (130-400); RDW Coefficient of Variation 21.8 % (11.5-14.5); RDW Standard Deviation 64.2 fL (36.4-46.3); White Blood Count 4.59 K/uL (4.8-10.8)
[2020-10-01 00:12] LABS: INR 1.3 (0.9-1.1); Prothrombin Time 13.5 Seconds (9.0-12.0)
[2020-10-01 00:17] LABS: Alanine Aminotransferase 12 U/L (12-78); Albumin Level 3.2 gm/dl (3.4-5.0); Aspartate Aminotransferase 20 U/L (15-37); BUN Creatinine Ratio 14.4 (10-20); Blood Urea Nitrogen 17 mg/dl (7-18); Calcium 8.4 mg/dl (8.5-10.1); Carbon Dioxide 22 mmol/L (21-32); Chloride 113 mmol/L (98-107); Est GFR (African American) 74.6; Est GFR (Non-African American) 64.3; Glucose 101 mg/dl (70-99); Lipase 96 U/L (73-393); Potassium 3.7 mmol/L (3.5-5.1); Sodium 142 mmol/L (136-145)
[2020-10-01 00:22] LABS: Albumin Globulin Ratio 0.8 (0.9-2); Alkaline Phosphatase 158 U/L (45-117); Bilirubin,Total 1.8 mg/dl (0.2-1); Globulin 4.1 gm/dl (2.5-4.0); NT Pro B Type Natriuretic Pept 6415 pg/ml (0-900); Total Protein 7.3 gm/dl (6.4-8.2); Troponin I 0.021 ng/ml (0-0.045)
[2020-10-01 00:34] LABS: Anisocytosis Present; Echinocytes 1+; Ovalocytes 1+
--- NOTE | 2020-10-01 01:11 | Emergency Department Note ---
History of Present Illness General Chief complaint: Shortness of Breath/Dyspnea Stated complaint: EDEMA, BREATHING DIFF Time Seen by Provider: 09/30/20 23:31 Source: patient Mode of arrival: EMS Limitations: no limitations History of Present Illness Provider complaint: Shortness of breath Onset (ago): unknown Maximum Pain Intensity: 4 Exacerbated By: + movement Associated symptoms: + chest pain, + cough, + malaise, + shortness of breath and + weakness; no fever/chills, no headaches and no nausea/vomiting Treatments prior to arrival: none This is a 62-year-old male presents emergency department complaining of worsening shortness of breath over the last several weeks. Patient does have a history of congestive heart failure after having a heart attack a year ago. Patient states he is not taking any of his medications as they "go bad very quickly" in his apartment. Patient also has a history of paranoid schizophrenia. Patient denies any use of oxygen at home, does have a history of tobacco abuse and underlying COPD, states he does have inhalers but does not always use them. Patient states he has chronic swelling in his legs, worse on the right than the left. Patient denies any known sick contacts or exposures. Patient states after he was hospitalized back in July with similar symptoms, he took a water pill for several days and was feeling improved, ho wever then the medication "went bad". Patient denies accompanying fevers or chills, cough or cold symptoms. Patient states with walking around his apartment or any exertion his breathing becomes worse and he begins to develop chest pain. Patient denies any change in bowel or bladder function. Patient does have a history of medication noncompliance. Patient well-known to the emergency room department as he has been here frequently with similar symptoms. Patient does have history of medication noncompliance and has had several similar presentations resulting in admission. Pt seen during a time of high acuity and national emergency pandemic while wearing PPE. Home Medications Home Medications Medication Instructions Recorded Confirmed Type No Known Home Medications 07/28/20 10/01/20 History Allergies Allergy/AdvReac Type Severity Reaction Status Date / Time horse dander Allergy Unknown Unknown Verified 10/01/20 00:22 tetanus toxoid, adsorbed Allergy Unknown Unknown Verified 10/01/20 00:22 Past Med/Surg History Medical History (Updated 10/02/20 @ 00:33 by Karley Barraza DO) CAD (coronary artery disease) Cholecystitis, acute Chronic systolic CHF (congestive heart failure) History of DVT (deep vein thrombosis) History of pancreatitis History of testicular cancer History of tobacco abuse Homelessness HTN (hypertension) Hypertension Hyperthyroidism Ischemic cardiomyopathy Lymphedema of right lower extremity Mitral regurgitation Pleural effusion Schizophrenia STEMI (ST elevation myocardial infarction) Tricuspid regurgitation Surgical History Hx of heart artery stent Status post cardiac catheterization Family History Other Unknown family medical history Social History Smoking Status: Former smoker Number of Years Since Quit: 10; Second Hand Exposure: No; Hx Alcohol Use: No Hx Substance Use: No Preferred Language: Latvian Communication Ability: Effective Rn Medication Required: No Beliefs That Will Affect Care: None marital status: Single Current Living Situation: Alone Current Living Situation Comment: [facility] How many Children do You have: 0 Feels Safe at Home: Yes Assistive Devices: None Review of Systems See HPI for pertinent positives & negatives. and A total of 10 systems reviewed and were otherwise negative Physical Exam Vital Signs Vital Signs - 24 hr 10/01/20 00:42 10/01/20 00:55 10/01/20 02:37 Pulse Rate [Finger] 88 93 H 80 Pulse Rhythm [Finger] Regular Respiratory Rate 18 18 18 Respiratory Effort / Characteristics Non-Labored Spontaneous Non-Labored Spontaneous Non-Labored Spontaneous Respiratory Depth Normal Normal Respiratory Pattern Regular Regular Blood Pressure [Right Arm] 141/103 H 146/105 H Blood Pressure Mean [Right Arm] 115 118 Blood Pressure Position [Right Arm] Lying Lying Pulse Oximetry 98 100 100 Oxygen Delivery Method Room Air Room Air Room Air 10/01/20 03:47 10/01/20 05:04 Pulse Rate [Finger] 77 70 Pulse Rhythm [Finger] Regular Regular Respiratory Rate 18 18 Respiratory Effort / Characteristics Non-Labored Spontaneous Non-Labored Spontaneous Respiratory Depth Normal Normal Respiratory Pattern Regular Regular Blood Pressure [Right Arm] 128/96 126/97 Blood Pressure Mean [Right Arm] 106 106 Blood Pressure Position [Right Arm] Lying Lying Pulse Oximetry 98 98 Oxygen Delivery Method Room Air Room Air GENERAL: alert, ill appearing, well nourished, no distress, non-toxic EYE EXAM: normal conjunctiva, PERRL and EOM's grossly intact OROPHARYNX: no exudate, no erythema, lips, buccal mucosa, and tongue normal and mucous membranes are moist NECK: supple, no nuchal rigidity, no adenopathy, non-tender LUNGS: Clear to auscultation. Normal chest wall mechanics, no w/r/r HEART: no murmurs, S1 normal and S2 normal ABDOMEN: abdomen soft, non-tender, normo-active bowel sounds, no masses, no rebound or guarding. BACK: Back is symmetrical on inspection and there is no deformity, no midline tenderness, no CVA tenderness. SKIN: no rashes and no bruising UPPER EXTREMITIES: upper extremities are grossly normal. FROM, nml pulses b/l. LOWER EXTREMITIES: 3 + right lower extremity, 1+ on the left pitting edema. Right lower extremity with a tattered Jt wrap in place, FROM, nml pulses b/l. NEURO EXAM: Normal sensorium, cranial nerves II-XII grossly intact, normal speech, no gross weakness of arms, no gross weakness of legs. Gross sensation intact. Course Course 0315: Patient updated on results. Patient states he still feels his breathing is difficult but improved compared to prior. 0402: Case discussed with Dr. Sorensen. Administered Medications Aspirin (Aspirin 81 Mg Ectab) 81 mg PO DAILY [facility] Stop: 10/31/20 08:59 Last Admin: 10/01/20 11:03 Dose: Not Given Documented by: [id number] Atorvastatin Calcium (Atorvastatin 40 Mg Tab) 80 mg PO QAM [facility] Stop: 10/31/20 08:59 Last Admin: 10/01/20 11:25 Dose: 20 mg Documented by: [id number] Clopidogrel Bisulfate (Clopidogrel Bisulfate 75 Mg Tab) 75 mg PO QAM [facility] Stop: 10/31/20 08:59 Last Admin: 10/01/20 11:07 Dose: 75 mg Documented by: [id number] Enoxaparin Sodium (Enoxaparin Inj 40 Mg/0.4 Ml Syr) 40 mg SQ Q24H [facility] Stop: 10/31/20 09:59 Last Admin: 10/01/20 11:09 Dose: Not Given Documented by: [id number] Levothyroxine Sodium (Levothyroxine Sodium 50 Mcg Tablet) 50 mcg PO DAILYBB [facility] Stop: 10/31/20 08:50 Last Admin: 10/01/20 11:03 Dose: 50 mcg Documented by: [id number] Metoprolol Succinate (Metoprolol Succ 50mg Ext Rel Tab) 50 mg PO QAM [facility] Stop: 10/31/20 08:59 Last Admin: 10/01/20 11:07 Dose: 50 mg Documented by: [id number] Olanzapine (Olanzapine 5 Mg Tablet) 5 mg PO HS [facility] Stop: 10/31/20 20:59 Last Admin: 10/01/20 21:32 Dose: 5 mg Documented by: [id number] Potassium Chloride (Potassium Chloride Pwd 20 Meq Pack) 20 meq PO BID [facility] Stop: 10/31/20 08:59 Last Admin: 10/01/20 21:33 Dose: 20 meq Documented by: [id number] Admin: 10/01/20 12:42 Dose: 20 meq Documented by: [id number] Risperidone (Risperidone 0.5 Mg Tablet) 0.5 mg PO BID [facility] Stop: 10/31/20 08:59 Last Admin: 10/01/20 21:32 Dose: 0.5 mg Documented by: [id number] Admin: 10/01/20 11:07 Dose: Not Given Documented by: [id number] Spironolactone (Spironolactone 12.5 Mg Tab) 12.5 mg PO DAILY [facility] Stop: 10/31/20 08:59 Last Admin: 10/01/20 11:03 Dose: 12.5 mg Documented by: [id number] Tramadol HCl (Tramadol Hcl 50 Mg Tablet) 50 mg PO Q4H PRN PRN Reason: Pain Stop: 10/31/20 08:50 Last Admin: 10/01/20 21:39 Dose: 50 mg Documented by: [id number] Admin: 10/01/20 16:42 Dose: 50 mg Documented by: [id number] Umeclidinium [place] (Umeclidinium [place] 62.5mcg/Blister 7 Puffs/Inhaler) 1 puffs INH DAILY [facility] Stop: 10/31/20 08:59 Last Admin: 10/01/20 11:09 Dose: 1 puffs Documented by: [id number] Discontinued Medications Albuterol (Albut/Ipratrop 3mg/0.5mg Neb 3 Ml Vial) 3 ml NEB NOW STA Stop: 10/01/20 00:00 Last Admin: 10/01/20 00:42 Dose: 3 ml Documented by: [id number] Furosemide (Furosemide 40 Mg/4 Ml Vial) 40 mg IV NOW STA Stop: 10/01/20 03:20 Last Admin: 10/01/20 05:00 Dose: 40 mg Documented by: [id number] Furosemide (Furosemide 40 Mg/4 Ml Vial) Confirm Administered Dose 40 mg IV .STK- MED ONE Stop: 10/01/20 10:50 Last Admin: 10/01/20 11:11 Dose: 40 mg Documented by: [id number] Acetaminophen (Ofirmev) 1,000 mg in 100 mls @ 400 mls/hr IV NOW STA Stop: 10/01/20 01:47 Last Infusion: 10/01/20 02:31 Dose: 0 mls/hr Documented by: [id number] Admin: 10/01/20 02:10 Dose: 400 mls/hr Documented by: [id number] Ioversol (Optiray 320 125ml) 125 ml IV ONCE ONE Stop: 10/01/20 02:02 Last Admin: 10/01/20 02:01 Dose: 110 ml Documented by: [id number] Ondansetron HCl (Ondansetron Inj 2 Mg/Ml 2 Ml Vial) 4 mg IV NOW STA Stop: 10/01/20 05:14 Last Admin: 10/01/20 05:31 Dose: 4 mg Documented by: [id number] Potassium Chloride (Potassium Chloride 20 Meq Tabcr) 20 meq PO BID [facility] Stop: 10/31/20 08:59 Last Admin: 10/01/20 11:03 Dose: Not Given Documented by: [id number] Medical Decision Making Differential Diagnosis Differential diagnoses includes but is not limited to pneumonia, bronchitis, COPD/Asthma exacerbation, pneumothorax, pulmonary embolism, congestive heart failure, acute coronary syndrome Medical Records Attestation: I reviewed the patient's medical records. Home Medications Current Medication List: was personally reviewed by me Laboratory Data Attestation: I reviewed the patient's lab results. Result diagrams: 09/30/20 23:35 09/30/20 23:35 Lab Results 09/30/20 09/30/20 09/30/20 Range/Units 23:35 23:35 23:35 WBC 4.59 L (4.8-10.8) K/uL RBC 4.60 L (4.7-6.1) M/uL Hgb 11.1 L (14.0-18.0) g/dL Hct 36.9 L (42-52) % MCV 80.2 (80-100) fL MCH 24.1 L (25-34) pg MCHC 30.1 L (32-36) g/dL RDW Std Deviation 64.2 H (36.4-46.3) fL RDW Coeff of Dante 21.8 H (11.5-14.5) % Plt Count 198 (130-400) K/uL MPV 10.1 (7.4-10.4) fL Immature Gran % (Auto) 0.2 % Neut % (Auto) 75.7 % Lymph % (Auto) 13.9 % [place] % (Auto) 8.9 % Eos % (Auto) 1.1 % Baso % (Auto) 0.2 % Neut # (Auto) 3.47 (1.4-6.5) K/uL Lymph # (Auto) 0.64 L (1.2-3.4) K/uL [place] # (Auto) 0.41 (0.11-0.59) K/uL Eos # (Auto) 0.05 (0-0.5) K/uL Baso # (Auto) 0.01 (0-0.2) K/uL Immature Gran # (Auto) 0.01 (0.00-0.02) K/uL Anisocytosis Present Ovalocytes 1+ Echinocytes 1+ PT 13.5 H (9.0-12.0) Seconds INR 1.3 H (0.9-1.1) Sodium 142 (136-145) mmol/L Potassium 3.7 (3.5-5.1) mmol/L Chloride 113 H (98-107) mmol/L Carbon Dioxide 22 (21-32) mmol/L Anion Gap 7.0 (3-11) BUN 17 (7-18) mg/dl Creatinine 1.16 (0.6-1.4) mg/dl Est Cr Clr Drug Dosing Not Reportable Est GFR ( Amer) 74.6 Est GFR (Non-Af Amer) 64.3 BUN/Creatinine Ratio 14.4 (10-20) Glucose 101 H (70-99) mg/dl Calcium 8.4 L (8.5-10.1) mg/dl Magnesium 2.0 (1.8-2.4) mg/dl Total Bilirubin 1.8 H (0.2-1) mg/dl AST 20 (15-37) U/L ALT 12 (12-78) U/L Alkaline Phosphatase 158 H (45-117) U/L Troponin I 0.021 (0-0.045) ng/ml NT-Pro-B Natriuret Pep 6415 H (0-900) pg/ml Total Protein 7.3 (6.4-8.2) gm/dl Albumin 3.2 L (3.4-5.0) gm/dl Globulin 4.1 H (2.5-4.0) gm/dl Albumin/Globulin Ratio 0.8 L (0.9-2) Lipase 96 (73-393) U/L Specimen Hemolysis COVID-19 Eval Order COVID-19 PCR (Negative) 10/01/20 10/01/20 Range/Units 04:28 04:28 WBC (4.8-10.8) K/uL RBC (4.7-6.1) M/uL Hgb (14.0-18.0) g/dL Hct (42-52) % MCV (80-100) fL MCH (25-34) pg MCHC (32-36) g/dL RDW Std Deviation (36.4-46.3) fL RDW Coeff of Dante (11.5-14.5) % Plt Count (130-400) K/uL MPV (7.4-10.4) fL Immature Gran % (Auto) % Neut % (Auto) % Lymph % (Auto) % [place] % (Auto) % Eos % (Auto) % Baso % (Auto) % Neut # (Auto) (1.4-6.5) K/uL Lymph # (Auto) (1.2-3.4) K/uL [place] # (Auto) (0.11-0.59) K/uL Eos # (Auto) (0-0.5) K/uL Baso # (Auto) (0-0.2) K/uL Immature Gran # (Auto) (0.00-0.02) K/uL Anisocytosis Ovalocytes Echinocytes PT (9.0-12.0) Seconds INR (0.9-1.1) Sodium (136-145) mmol/L Potassium (3.5-5.1) mmol/L Chloride (98-107) mmol/L Carbon Dioxide (21-32) mmol/L Anion Gap (3-11) BUN (7-18) mg/dl Creatinine (0.6-1.4) mg/dl Est Cr Clr Drug Dosing Est GFR ( Amer) Est GFR (Non-Af Amer) BUN/Creatinine Ratio (10-20) Glucose (70-99) mg/dl Calcium (8.5-10.1) mg/dl Magnesium (1.8-2.4) mg/dl Total Bilirubin (0.2-1) mg/dl AST (15-37) U/L ALT (12-78) U/L Alkaline Phosphatase (45-117) U/L Troponin I (0-0.045) ng/ml NT-Pro-B Natriuret Pep (0-900) pg/ml Total Protein (6.4-8.2) gm/dl Albumin (3.4-5.0) gm/dl Globulin (2.5-4.0) gm/dl Albumin/Globulin Ratio (0.9-2) Lipase (73-393) U/L Specimen Hemolysis COVID-19 Eval Order Covid19 Done at [facility] COVID-19 PCR NEGATIVE (Negative) Imaging Data Radiologist's Impression: CTA chest: Comparison: CT chest 06/17/2015. There is symmetrically decreased opacification of the distal pulmonary artery branches in both lower lobes involving multiple subsegmental branches. This is favored to be technical related to patient's cardiac status. No definite embolism is identified. Cardiomegaly with right heart enlargement, dilated IVC, and reflux of contrast into the hepatic veins, compatible with right heart fa ilure. No thoracic aortic aneurysm. Coronary artery atherosclerosis. Emphysema. Gravitational distribution of pulmonary edema. Small right pleural effusion. Atelectasis at the lung bases. Mild ascites. No acute osseous findings. Radiologist: David Vance MD Blood Pressure Blood Pressure Findings: Elevated blood pressure Blood Pressure Disposition: further management by hospitalist MAGGI Narrative This is a 70-year-old male who presents due to worsening shortness of breath. Patient with multiple similar presentations and a history of medication noncompliance in part due to his paranoid schizophrenia. Patient does have significant cardiac history of prior LA and congestive heart failure. Patient was not hypoxic here while at rest on room air, no increased work of breathing. Patient does have diminished breath sounds but also has a history of COPD although states he has quit smoking. Patient states he has lower extremity edema chronically although feels it is worse. Labs are drawn and sent and chest x-ray performed. Patient's chest x-ray reassuring, with only a slightly worse right-sided pleural effusion compared to the prior. Due to his noncompliance and prior history of DVT, patient sent for CT angiography of the chest, this did not show any PE. Patient's labs are reassuring, BNP elevated, although lower than prior levels. Troponin was negative, and EKG unchanged. Patient given a breathing treatment here and 40 mg of Lasix IV. Patient continued to complain of pain and was asking for pain medication. Patient was given IV Tylenol. Zak benitez continued to state he felt too unwell to go home and his of his breathing was worsening. Coronavirus test was negative. Case discussed with hospitalist for additional evaluation and management. An order was placed for continuous cardiac monitoring. The monitor shows a rate of 62_ with normal sinus_ rhythm. Impression & Plan Dyspnea, Non-compliance, CHF (congestive heart failure), COPD (chronic obstructive pulmonary disease), Bilateral edema of lower extremity Discharge Plan Visit Data Chief Complaint: Shortness of Breath/Dyspnea Stated Complaint: EDEMA, BREATHING DIFF ED Provider: Karley Barraza Discharge Problem: Dyspnea, Non-compliance, CHF (congestive heart failure), COPD (chronic obstructive pulmonary disease), Bilateral edema of lower extremity Patient Disposition: Admitted As Inpatient Discharge Instructions Interventions: ED Discharge Assessment Last Done: 10/01/20 10:00 Discharge Problem: Dyspnea Qualifiers: Dyspnea type: dyspnea on exertion Qualified Code(s): R06.00 - Dyspnea, unspecified CHF (congestive heart failure) Qualifiers: Heart failure type: combined systolic and diastolic Heart failure chronicity: acute on chronic Qualified Code(s): I50.43 - Acute on chronic combined systolic (congestive) and diastolic (congestive) heart failure COPD (chronic obstructive pulmonary disease) Qualifiers: COPD type: unspecified COPD Qualified Code(s): J44.9 - Chronic obstructive pulmonary disease, unspecified
[2020-10-01] MEDS ORDERED: ACETAMINOPHEN 1,000 MG/100 ML VIAL IV STA (01:33)
[2020-10-01] MEDS ORDERED: OPTIRAY 320 125ml IV ONE (02:01)
[2020-10-01] MEDS ORDERED: FUROSEMIDE 40 MG/4 ML VIAL IV STA (03:19)
[2020-10-01] MEDS ORDERED: ONDANSETRON INJ 2 MG/ML 2 ML VIAL IV STA (05:13)
--- NOTE | 2020-10-01 07:08 | History and Physical Report ---
DATE OF ADMISSION: 10/01/2020 CHIEF COMPLAINT: Shortness of breath. HISTORY OF PRESENT ILLNESS: This is a 70-year-old male with past medical history significant for ischemic cardiomyopathy, EF of 15% to 20%, severe mitral regurgitation, CAD status post stent, hypertension, history of paroxysmal atrial fibrillation, paranoid schizophrenia, past history of DVT, history of testicular cancer status post surgery and chemotherapy, past tobacco abuse, chronic anemia, baseline hemoglobin around 10-11, chronic lymphedema, hypothyroidism, history of chronic medication noncompliance, and chronic lower extremity wounds. Currently living in an apartment. Presents with shortness of breath on exertion. The patient has frequent hospitalizations and last admission was in July. At that time, got treated for CHF with his Lasix and discharged on p.o. Lasix 40 daily and also spironolactone 12.5 mg p.o. daily. Treated for pseudomonas and lower extremity wounds with ciprofloxacin. The patient says once he goes to his apartment, he takes medication for 1 week and then the medication stops working, does not take them. Chronic noncompliance is thought to be from his psychiatric issues. The patient says he is not going anywhere, he is just staying in his apartment. He gets food from the [employer]. Not exposed to any COVID patients. Says he is getting weak, has generalized pain, short of breath on exertion, on and off chest pains. This prompted him to come to the ER. In the ER, he is currently hemodynamically stable. Blood pressure is running okay. BNP 6400 Troponin is negative. CTA chest was unremarkable except for small right pleural effusion. The patient complains of some headache. Denies any blurred vision, no earache, no runny nose, no sore throat, no cough. Complains of nausea. No abdominal pain. Normal bowel and bladder movements. No hematuria or blood in the stools. He is not going to wound care, he wraps his own legs. He says he dressed it several days ago. ALLERGIES: HORSE DANDER, TETANUS TOXOID. PAST MEDICAL HISTORY: As mentioned above. PAST SURGICAL HISTORY: Cardiac catheterization, appendectomy, orchiectomy. MEDICATIONS: Currently not taking any medications. FAMILY HISTORY: Significant for heart disease. SOCIAL HISTORY: Past tobacco abuse. No alcohol use. Disabled. REVIEW OF SYSTEMS: As per HPI. Rest of the review of systems are negative. PHYSICAL EXAMINATION: GENERAL: The patient is of moderate build, not in acute distress. VITAL SIGNS: Temperature 36.4, pulse 70, respiratory rate 18, blood pressure 126/97, oxygen 98% on room air. HEENT: Pupils are equal, round, and reactive to light. Oral mucosa moist. NECK: No JVD, no neck masses. CARDIOVASCULAR: S1, S2 heard, regular rate and rhythm, no murmur, no gallop. RESPIRATORY SYSTEM: Normal AP diameter. No accessory muscle use. No wheezing, no crackles. ABDOMEN: Soft, bowel sounds present, nontender. No distention. CENTRAL NERVOUS SYSTEM: Cranial nerves II-XII grossly intact. Nonfocal. EXTREMITIES: Chronic right lower extremity lymphedema and open superficial wounds with mild drainage seen. LABORATORY DATA: WBC 4.5, hemoglobin 11.1, hematocrit 36.9, platelets 198. PT 13.5, INR 1.3. Sodium 142, potassium 3.7, chloride 113, CO2 of 22, BUN 17, creatinine 1.1, serum glucose 101, calcium 8.4, magnesium 2, total bilirubin 1.8, BNP 6400. Lipase 96. IMAGING DATA: Chest x-ray, no acute findings seen. CTA of the chest, no acute findings on the preliminary report. EKG: Accelerated junctional rhythm with occasional PVCs at a rate of 86, prolonged QT at the rate of 502. ASSESSMENT AND PLAN: This is a 70-year-old male who is noncompliant with medication, who presented with shortness of breath. 1. Shortness of breath:Acute on chronic systolic CHF CTA of the chest unremarkable except for mild right pleural effusion. He has a history of congestive heart failure with EF of 15% to 20%. Supposed to be on Lasix and Aldactone, noncompliant with the medications. In the ER, he was given IV Lasix 40. Will continue with IV Lasix 40 daily and restart the spironolactone and potassium supplements. Follow the response. If any concern, will consult cardiology while he is in the hospital. Will also restart his Toprol-XL. Follow the labs for any hypokalemia. 2. History of atrial fibrillation, rate is under control, noncompliant with medication. Restarted Toprol-XL. Also is on aspirin and Plavix. 3. History of chronic right leg lymphedema and chronic wounds. Recently was treated with Cipro and amoxicillin for his pseudomonas and enterococcus. We will reculture him as there appears to be some drainage.Wound care. 4. Hypothyroidism. Will restart his home levothyroxine. 5. History of paranoid schizophrenia. Will restart his previous medication of risperidone and olanzapine. 6. Deep venous thrombosis prophylaxis with Lovenox. 7. History of prolonged QT. Avoid QT prolonging drugs and follow the repeat EKG. 8. Disposition, closely monitor in the med tele. Code status, level 1 full code as per my discussion with the patient. PT and OT prior to discharge. Social service to help with discharge planning. MORALES
--- NOTE | 2020-10-01 08:44 | CT Scan Report ---
CT ANGIOGRAM OF THE CHEST CLINICAL HISTORY: Shortness of breath. SUSPECTED PULMONARY EMBOLISM COMPARISON STUDY: 07/28/2020 TECHNIQUE: Following the IV administration of 110 mL of Optiray-320, CT angiogram of the thorax was p erformed from the thoracic inlet to the lung bases utilizing the pulmonary embolus protocol. Images a re reviewed in the axial, sagittal, and coronal planes. IV contrast was administered without complica tion. MIP imaging was performed. A dose lowering technique was utilized adhering to the principles o f ALARA. CT DOSE: 308.28 mGy.cm FINDINGS: There is a small right renal calculus. There is dilatation of the hepatic veins with reflux of contrast into the inferior vena cava. This in dicates elevated right heart pressures. There is upper abdominal ascites. No pathologically enlarged axillary mediastinal or hilar lymph nodes were visualized. There was no evidence of thoracic aortic dilatation. The heart is enlarged. There are coronary artery calcifications. There were no pulmonary artery filling defects to indicate acute pulmonary embolism. There is poor op acification of the lower lobe pulmonary arteries, likely related to technical factors. There is a [id number] right pleural effusion. There is pulmonary emphysema. There are right middle and lower lobe airspace opacities likely atelect atic. There is mild left basilar atelectatic change. There is azygos vein dilatation IMPRESSION: 1. No evidence of acute pulmonary embolism. Suboptimal evaluation of the lower lobe pulmonary arterie s. 2. Cardiomegaly and coronary artery calcifications 3. Evidence of elevated right heart pressures 4. [id number] right pleural effusion 5. Right middle and lower lobe atelectatic changes 6.. Upper abdominal ascites 7. Azygous vein dilatation ACT 112: Negative or not required by law. Electronically signed by: Villa Almeida M.D. 10/01/2020 8:43 AM
--- NOTE | 2020-10-01 08:50 | XRay Report ---
XR chest 1V portable CLINICAL HISTORY: Shortness of breath. COMPARISON STUDY: Chest radiograph and chest CT July 28, 2020. FINDINGS: Marked cardiomegaly is again noted. There is a small to moderate right pleural effusion. Ri ght basilar opacity is noted. There is no pneumothorax. Azygos vein is distended. There is evidence f or mild interstitial pulmonary edema. No pneumothorax is present. IMPRESSION: 1. Small to moderate right pleural effusion with right basilar opacity. 2. Mild interstitial pulmonary edema. 3. Marked cardiomegaly. ACT 112: Negative or not required by law. Electronically signed by: Terence Donahue M.D. 10/01/2020 8:49 AM
[2020-10-01] MEDS ORDERED: ACETAMINOPHEN 325 MG TAB PO PRN (08:51)
[2020-10-01] MEDS ORDERED: LEVALBUTEROL HCL 0.63 MG/3 ML NEB NEB PRN (08:51)
[2020-10-01] MEDS ORDERED: XOPENEX/ATROVENT 0.63mg/0.5MG NEB COMBO NEB PRN (08:51)
[2020-10-01] MEDS ORDERED: POLYETHYLENE (MIRALAX) 17 GM PACK PO PRN (08:51)
[2020-10-01] MEDS ORDERED: IPRATROPIUM BROMIDE NEB SOLN 0.02% 2.5 ML VIAL INH PRN (08:51)
[2020-10-01] MEDS ORDERED: NITROGLYCERIN SL 0.4 MG/TAB TAB SL PRN (08:51)
[2020-10-01] MEDS ORDERED: POTASSIUM CHLORIDE CRTAB 20 MEQ TABCR PO SCH (09:00)
[2020-10-01] MEDS ORDERED: FUROSEMIDE 40 MG/4 ML VIAL IV ONE (10:49)
--- NOTE | 2020-10-01 10:50 | Electrocardiogram Report ---
Test Reason : Blood Pressure : / mmHG Vent. Rate : 086 BPM Atrial Rate : 042 BPM P-R Int : 000 ms QRS Dur : 090 ms QT Int : 420 ms P-R-T Axes : 000 021 044 degrees QTc Int : 502 ms Poor data quality, interpretation may be adversely affected Sinus rhythm with occasional Premature ventricular complexes Indeterminate axis Septal infarct (cited on or before 30-SEP-2020) Prolonged QT Abnormal ECG When compared with ECG of 28-JUL-2020 01:37, Premature ventricular complexes are now Present Confirmed by Viktor Ingram ([id number]) on 10/01/2020 10:50:13 AM Referred By: REFERRED SELF Confirmed By:Viktor Ingram
[2020-10-01] MEDS: LEVOTHYROXINE SODIUM 50 MCG TABLET PO SCH (11:03)
[2020-10-01] MEDS: ASPIRIN 81 MG ECTAB PO SCH (11:03)
[2020-10-01] MEDS: SPIRONOLACTONE 12.5 MG TAB PO SCH (11:03)
[2020-10-01] MEDS: METOPROLOL SUCC 50MG EXT REL TAB PO SCH (11:07)
[2020-10-01] MEDS: CLOPIDOGREL BISULFATE 75 MG TAB PO SCH (11:07)
[2020-10-01] MEDS: risperiDONE 0.5 MG TABLET PO SCH ×2 (11:07→21:32)
[2020-10-01] MEDS: UMECLIDINIUM BROMIDE 62.5MCG/BLISTER 7 PUFFS/INHALER INH SCH (11:09)
[2020-10-01] MEDS: ENOXAPARIN INJ 40 MG/0.4 ML SYR SQ SCH (11:09)
[2020-10-01] MEDS: ATORVASTATIN 40 MG TAB PO SCH (11:25)
[2020-10-01] MEDS: POTASSIUM CHLORIDE PWD 20 MEQ PACK PO SCH ×2 (12:42→21:33)
--- NOTE | 2020-10-01 12:56 | Cardiology Consultation ---
Date of Consultation October 01, 2020 Assessment & Plan (1) Decompensated heart failure: He is actually less decompensated than usual. Generally presents with more significant pulmonary edema breathing difficulties. He has not been taking any diuretic or presumably any medications for few weeks. He would seem reasonable to reinstitute a diuretic. He is currently on Lasix 40 mg daily. I think this is reasonable for now. We can monitor his fluid balance, electrolytes and renal function over the next few days. (2) A-fib: No clinical recurrence. He has not been complaining of any palpitations. He was never started on anticoagulation due to his history of medical noncompliance. (3) Ischemic cardiomyopathy: I do not believe he suffered any additional ischemic events. I agree with reinstituting his standard medical regimen which includes metoprolol succinate and spironolactone. Will monitor his renal function and blood pressure and consider addition of Jt inhibition as well. (4) Mitral regurgitation: No significant murmur on examination. (5) CAD (coronary artery disease): He underwent PCI to an obtuse marginal in May of 2019. He did not describe any symptoms of chest pain currently. We have been maintaining him on dual anti-platelet therapy and high-dose atorvastatin. (6) Noncompliance: This appears to be his biggest barrier to care. He has a lot of paranoia regarding his medications and his residence. I think we will continue to see frequent readmissions in the absence of some additional intervention in this regard. History of Present Illness Reason for Consultation: Heart failure Requesting Physician: Franchesca Attending Physician: Arnold Britt DO History of Present Illness The patient is a 70-year-old gentleman with a long history of cardiac disease who presented to the emergency room with concerns over weakness and breathing trouble. The patient was originally evaluated in May of 2019 when he suffered an acute myocardial infarction. He underwent percutaneous intervention to a large obtuse marginal at that time. He had an element of reduced LV systolic function and developed atrial fibrillation and flutter at the time of that admission. His clinical course has been complicated since that time due to m edication noncompliance. The patient is generally admitted every few weeks with recurrent symptoms of breathing difficulty and evidence of pulmonary vascular congestion. This appears primarily related to medication noncompliance. Patient states that after his discharge in July of this year he felt very well for a week or 2. He actually took his medications for 5 days. However after 5 days he felt that the medicine was bad and no longer took any pills. He has confined himself to his apartment. He does not venture out or do any strenuous physical activity. However, recently he has had difficulty getting around his apartment and has been concerned about collapsing. This appears to be primarily related to breathing difficulty. In the past he has had some symptoms of chest discomfort and dizziness associated with these spells, but this time he reports primarily dyspnea. He does not report any loss of consciousness. Did not describe orthopnea. He generally sleeps on his couch as he is afraid to sleep in his bedroom. He is very worried about being in his apartment for long periods of time because many people have there. Feels that every few weeks, Divine intervention requires him to go to the emergency room. He cooks his own meals, but this generally consists of a high sodium diet with frozen foods and prepared meals. He also eats pasta. Allergies Allergy/AdvReac Type Severity Reaction Status Date / Time horse dander Allergy Unknown Unknown Verified 10/01/20 00:22 tetanus toxoid, adsorbed Allergy Unknown Unknown Verified 10/01/20 00:22 Home Medications Home Medications Medication Instructions Recorded Confirmed Type No Known Home Medications 07/28/20 10/01/20 History Patient History Medical History (Updated 10/01/20 @ 12:55 by Jenaro Carter MD) CAD (coronary artery disease) Cholecystitis, acute Chronic systolic CHF (congestive heart failure) History of DVT (deep vein thrombosis) History of pancreatitis History of testicular cancer History of tobacco abuse Homelessness HTN (hypertension) Hypertension Hyperthyroidism Ischemic cardiomyopathy Lymphedema of right lower extremity Mitral regurgitation Pleural effusion Schizophrenia STEMI (ST elevation myocardial infarction) Tricuspid regurgitation Surgical History Hx of heart artery stent Status post cardiac catheterization Family History Other Unknown family medical history Social History Smoking Status: Former smoker Number of Years Since Quit: 10; Second Hand Exposure: No; Do You Dip or Chew Tobacco: No; Tobacco Cessation Education Requested by Patient: No Hx Alcohol Use: No Hx Substance Use: No Preferred Language: Bermudian Communication Ability: Effective Director Meetings Required: No Beliefs That Will Affect Care: None marital status: Single Current Living Situation: Alone Current Living Situation Comment: [facility] How many Children do You have: 0 Other Information That Helps Us Care for You: No Feels Safe at Home: Yes Assistive Devices: None Review of Systems Review of Systems: All systems reviewed & are unremarkable except as noted in HPI & below He did not report any recent fevers or chills. He is not having close contacts as he has been confined to his apartment. He denies any sense of palpitations or racing heartbeats. He states that his right side and right lower extremity chronic swelling and is unchanged. He has been wrapping his lower extremity with gauze and ABDs. He feels like his stomach may be swollen. He has not had any gastrointestinal disturbance recently. Physical Exam Physical Exam: The patient is alert and oriented. Mood and affect appeared normal although he did have some paranoid ideation at times. He answered all questions appropriately. HEENT: Pupils are equal and reactive to light and accommodation. Extraocular movements are intact. The sclerae are anicteric. Very poor dentition Neuro: Cranial nerves intact Neck: Patient's neck is supple. He has palpable carotid pulses bilaterally without bruits on auscultation. There is no evidence of jugular venous distention. The thyroid is not enlarged. Lungs: Occasional crackle in the right base. Overall his lungs sound fairly clear. No expiratory wheezing. Normal respiratory effort. Cardiac: Heart demonstrates a regular rate and rhythm. Normal S1 and S2. No murmurs on examination. Pulses: The patient has palpable radial pulses bilaterally that are equal in intensity Extremities: There was no evidence of hypoperfusion. There is no cyanosis or clubbing. He has chronic trophic and edematous changes in the right lower extremity. Some abrasions and dry skin on the right leg. He has moderate edema involving the left leg. Skin: I did not appreciate any rashes on examination today. He did have the trophic changes and dry skin as mentioned on his right lower extremity. Results & Data ([facility]) Vital Signs (Past 12 Hours) Vital Signs Pulse Pulse Resp BP BP Pulse Ox 10/01/20 10:55 85 24 130/97 93 10/01/20 10:00 75 18 130/97 94 10/01/20 09:00 74 20 118/87 95 10/01/20 06:30 94 H 20 157/121 H 98 10/01/20 06:00 85 24 121/93 98 10/01/20 05:30 80 18 138/109 H 100 10/01/20 05:11 83 17 148/101 H 94 10/01/20 05:04 70 18 126/97 98 10/01/20 03:47 77 18 128/96 98 10/01/20 02:37 80 18 146/105 H 100 10/01/20 00:55 93 H 18 141/103 H 100 Laboratory Results Abnormal Lab Results 09/30/20 09/30/20 09/30/20 23:35 23:35 23:35 WBC 4.59 L RBC 4.60 L Hgb 11.1 L Hct 36.9 L MCV 80.2 MCH 24.1 L MCHC 30.1 L RDW Std Deviation 64.2 H RDW Coeff of Dante 21.8 H Plt Count 198 MPV 10.1 Immature Gran % (Auto) 0.2 Neut % (Auto) 75.7 Lymph % (Auto) 13.9 [place] % (Auto) 8.9 Eos % (Auto) 1.1 Baso % (Auto) 0.2 Neut # (Auto) 3.47 Lymph # (Auto) 0.64 L [place] # (Auto) 0.41 Eos # (Auto) 0.05 Baso # (Auto) 0.01 Immature Gran # (Auto) 0.01 Anisocytosis Present Ovalocytes 1+ Echinocytes 1+ PT 13.5 H INR 1.3 H Sodium 142 Potassium 3.7 Chloride 113 H Carbon Dioxide 22 Anion Gap 7.0 BUN 17 Creatinine 1.16 Est Cr Clr Drug Dosing Not Reportable Est GFR ( Amer) 74.6 Est GFR (Non-Af Amer) 64.3 BUN/Creatinine Ratio 14.4 Glucose 101 H Calcium 8.4 L Magnesium 2.0 Total Bilirubin 1.8 H AST 20 ALT 12 Alkaline Phosphatase 158 H Troponin I 0.021 NT-Pro-B Natriuret Pep 6415 H Total Protein 7.3 Albumin 3.2 L Globulin 4.1 H Albumin/Globulin Ratio 0.8 L Lipase 96 Specimen Hemolysis COVID-19 Eval Order COVID-19 PCR 10/01/20 10/01/20 04:28 04:28 WBC RBC Hgb Hct MCV MCH MCHC RDW Std Deviation RDW Coeff of Dante Plt Count MPV Immature Gran % (Auto) Neut % (Auto) Lymph % (Auto) [place] % (Auto) Eos % (Auto) Baso % (Auto) Neut # (Auto) Lymph # (Auto) [place] # (Auto) Eos # (Auto) Baso # (Auto) Immature Gran # (Auto) Anisocytosis Ovalocytes Echinocytes PT INR Sodium Potassium Chloride Carbon Dioxide Anion Gap BUN Creatinine Est Cr Clr Drug Dosing Est GFR ( Amer) Est GFR (Non-Af Amer) BUN/Creatinine Ratio Glucose Calcium Magnesium Total Bilirubin AST ALT Alkaline Phosphatase Troponin I NT-Pro-B Natriuret Pep Total Protein Albumin Globulin Albumin/Globulin Ratio Lipase Specimen Hemolysis COVID-19 Eval Order Covid19 Done at [facility] COVID-19 PCR NEGATIVE Diagnostic Findings X-ray demonstrated some mild pulmonary vascular congestion and a mild to moderate right pleural effusion. Chest CTA did not demonstrate any evidence of pulmonary embolism. Small to moderate lives right pleural effusion. Ascites PG Care Time/CCT Total # of Minutes Spent Total Time Spent with Patient: Total time spent is greater than 50% in coordination of care (as documented) at patient's floor/unit and/or counseling patient: Coding Level of Care Code 75330 Initial Inpt Care Lvl 3 Diagnoses Decompensated heart failure I50.9 A-fib I48.91 Atrial fibrillation type: unspecified Ischemic cardiomyopathy I25.5 Mitral regurgitation I34.0 CAD (coronary artery disease) I25.10 Noncompliance Z91.19 (1) A-fib Atrial fibrillation type: unspecified Qualified Code(s): I48.91 - Unspecified atrial fibrillation
[2020-10-01] MEDS: traMADol HCL 50 MG TABLET PO PRN ×2 (16:42→21:39)
[2020-10-01] MEDS: OLANZapine 5 MG TABLET PO SCH (21:32)
[2020-10-02 04:41] LABS: Basophils # (auto) 0.01 K/uL (0-0.2); Basophils % (auto) 0.2 %; Eosinophils # (auto) 0.11 K/uL (0-0.5); Eosinophils % (auto) 2.6 %; Hematocrit (blood only) 38.3 % (42-52); Hemoglobin 11.2 g/dL (14.0-18.0); Lymphocytes # (auto) 0.71 K/uL (1.2-3.4); Lymphocytes % (auto) 16.5 %; Mean Corpuscular Hemoglobin 23.6 pg (25-34); Mean Corpuscular Hgb Conc 29.2 g/dL (32-36); Mean Corpuscular Volume 80.8 fL (80-100); Mean Platelet Volume 10.4 fL (7.4-10.4); Monocytes # (auto) 0.51 K/uL (0.11-0.59); Monocytes % (auto) 11.8 %; Neutrophils # (auto) 2.97 K/uL (1.4-6.5); Neutrophils % (auto) 68.9 %; Platelet Count 179 K/uL (130-400); RDW Coefficient of Variation 21.8 % (11.5-14.5); RDW Standard Deviation 64.5 fL (36.4-46.3); Red Blood Count 4.74 M/uL (4.7-6.1); White Blood Count 4.31 K/uL (4.8-10.8)
[2020-10-02 05:03] LABS: BUN Creatinine Ratio 16.4 (10-20); Calcium 8.3 mg/dl (8.5-10.1); Creatinine Clr Calc Pharmacy 50.7 ml/min; Est GFR (African American) 62.1; Est GFR (Non-African American) 53.6; Magnesium 2.1 mg/dl (1.8-2.4); Potassium 4.2 mmol/L (3.5-5.1)
[2020-10-02 05:12] LABS: Anisocytosis Present; Echinocytes 1+; Ovalocytes 1+
[2020-10-02] MEDS: LEVOTHYROXINE SODIUM 50 MCG TABLET PO SCH (06:18)
[2020-10-02] MEDS: SPIRONOLACTONE 12.5 MG TAB PO SCH (08:46)
[2020-10-02] MEDS: METOPROLOL SUCC 50MG EXT REL TAB PO SCH (08:46)
[2020-10-02] MEDS: POTASSIUM CHLORIDE PWD 20 MEQ PACK PO SCH ×2 (08:46→20:46)
[2020-10-02] MEDS: ATORVASTATIN 40 MG TAB PO SCH (08:46)
[2020-10-02] MEDS: risperiDONE 0.5 MG TABLET PO SCH ×2 (08:46→20:46)
[2020-10-02] MEDS: ENOXAPARIN INJ 40 MG/0.4 ML SYR SQ SCH ×2 (08:46→08:54)
[2020-10-02] MEDS: CLOPIDOGREL BISULFATE 75 MG TAB PO SCH (08:46)
[2020-10-02] MEDS: ASPIRIN 81 MG ECTAB PO SCH (08:54)
[2020-10-02] MEDS ORDERED: FUROSEMIDE 40 MG in SYRINGE 0 ML IV SCH (09:00)
[2020-10-02] MEDS ORDERED: FUROSEMIDE 40 MG/4 ML VIAL IV SCH (09:00)
[2020-10-02] MEDS: UMECLIDINIUM BROMIDE 62.5MCG/BLISTER 7 PUFFS/INHALER INH SCH (10:16)
--- NOTE | 2020-10-02 11:10 | Hospitalist Progress Note ---
Date of Service October 02, 2020 Assessment & Plan (1) Non-compliance: ASSESSMENT AND PLAN: This is a 70-year-old male who is noncompliant with medication, who presented with shortness of breath. 1. Shortness of breath:Acute on chronic systolic CHF CTA of the chest unremarkable except for mild right pleural effusion. He has a history of congestive heart failure with EF of 15% to 20%. Supposed to be on Lasix and Aldactone, noncompliant with the medications. In the ER, he was given IV Lasix 40. Continue IV Lasix 40, spironolactone and potassium. Cards on case 2. History of atrial fibrillation, rate is under control, noncompliant with medication. Restarted Toprol-XL. Also is on aspirin and Plavix. 3. History of chronic right leg lymphedema and chronic wounds. Recently was treated with Cipro and amoxicillin for his pseudomonas and enterococcus. We will reculture him as there appears to be some drainage. Wound care. 4. Hypothyroidism. Levothyroxine. 5. History of paranoid schizophrenia. Risperidone and Olanzapine. 6. Deep venous thrombosis prophylaxis with Lovenox. 7. History of prolonged QT. Avoid QT prolonging drugs and follow the repeat EKG. 8. Disposition, med tele. Code status, level 1 full code. Social service to help with discharge planning. Labs Checked change to inpatient status ROS-No Headache, No Visual Changes, No Nausea, No Vomiting, No Fever, No Chills, No Neck Pain or Stiffness, No Chest Pain, No Palpitations, No SOB, No LOCK, No Cough, No Sputum, No Wheezing, No Abdominal Pain, No Diarrhea, No Hematemesis, No Hemoptysis, No Unexpected Weight Loss, No Flank pain, No Melena, No Hematochezia, No Frequency, No Urgency, No Burning, No Hematuria, No Rashes, No Diaphoresis. Appetite is Normal Physical Exam Gen-AAO x 3, NAD, Afebrile, thin Head-NCAT, EOMI, PERRLA, Anicteric Sclera, No Posterior Pharyngeal Erythema Neck-Supple, No JVD, No Thyromegaly, No Masses, No LAD, No Bruits Lungs-Clear to Auscultation Bilaterally, No Rales, No Rhonchi, No Wheezing, No Crepitus Chest-No S4, +S1, +S2, No S3, No Murmurs, No Rubs, No Gallops, No Ectopy Abdomen-Soft, Bowel Sounds Present, Non Tender, Non Distended, No Hepatomegaly, No Splenomegaly, No Palpable Masses, No Rebound, No Rigidity, No Guarding Musculoskeletal-Full Range of Motion Bilaterally, No CVAT Extremities-RLE Lymphedema, c scaly stasis Dermatitis Nuero-Cranial Nerves II-XII grossly intact, Motor WNL, DTRs WNL, Strength WNL, Non Focal Psych-Normal Mood Admission and Anticipated Discharge Date Admission Date: October 01, 2020 Results & Data Results & Data ([facility]) Vital Signs (Past 12 Hours) Vital Signs Temp Pulse Pulse Resp BP BP Pulse Ox 10/02/20 07:00 36.4 C L 64 18 103/74 100 10/02/20 02:48 36.7 C 78 20 110/72 98 10/02/20 02:44 66
--- NOTE | 2020-10-02 12:48 | Cardiology Progress Note ---
Date of Service October 02, 2020 Assessment & Plan (1) Decompensated heart failure: Clinically stable. Difficult to assess his response to therapy and as his urine output is not accurately recorded. I will continue his current dose of intravenous diuretic while an inpatient. We can monitor his electrolytes and renal function closely. Will have a better understanding of his improvement once he is more mobile. (2) A-fib: No clinical recurrence. He has not been complaining of any palpitations. He was never started on anticoagulation due to his history of medical noncompliance. (3) Ischemic cardiomyopathy: I do not believe he suffered any additional ischemic events. I agree with reinstituting his standard medical regimen which includes metoprolol succinate and spironolactone. Will monitor his renal function and blood pressure and consider addition of Jt inhibition as well. (4) Mitral regurgitation: No significant murmur on examination. (5) CAD (coronary artery disease): He underwent PCI to an obtuse marginal in May of 2019. He did not describe any symptoms of chest pain currently. We have been maintaining him on dual anti-platelet therapy and high-dose atorvastatin. (6) Noncompliance: Generally compliant while in the hospital. Her biggest difficulties once he returns home. I will be away from the hospital for the next 2 days. Any questions concerning this patient's cardiac care can be addressed to the on-call [facility] data review specialist, Dr. Ingram Admission and Anticipated Discharge Date Admission Date: October 02, 2020 Subjective This morning the patient claims to be feeling well. He did not have a good assessment of improvement in breathing as he has not been ambulatory since reaching his room. He denies any breathing difficulty at rest. No chest pain. Some continued right-sided abdominal distension. No gastrointestinal complaints. Review of Systems Review of Systems: Per HPI Physical Exam Physical Exam: The patient is alert and oriented. Mood and affect appeared normal although he did have some paranoid ideation at times. He answered all questions appropriately. HEENT: Pupils are equal and reactive to light and accommodation. Extraocular movements are intact. The sclerae are anicteric. Very poor dentition Neuro: Cranial nerves intact Neck: Patient's neck is supple. He has palpable carotid pulses bilaterally without bruits on auscultation. There is no evidence of jugular venous distention. The thyroid is not enlarged. Lungs: Occasional crackle in the right base. Overall his lungs sound fairly c lear. No expiratory wheezing. Normal respiratory effort. Cardiac: Heart demonstrates a regular rate and rhythm. Normal S1 and S2. No murmurs on examination. Pulses: The patient has palpable radial pulses bilaterally that are equal in intensity Abdomen: He does have pitting edema in the soft tissues of the right lower quadrant. Extremities: Blue discoloration of the finger tips and some of the palms. There is no clubbing. He has chronic trophic and edematous changes in the right lower extremity. Some abrasions and dry skin on the right leg. He has moderate edema involving the left leg. Skin: I did not appreciate any rashes on examination today. He did have the trophic changes and dry skin as mentioned on his right lower extremity. Results & Data ([facility]) Vital Signs (Past 12 Hours) Vital Signs Temp Pulse Pulse Resp BP BP Pulse Ox 10/02/20 12:11 36.3 C L 67 22 119/76 96 10/02/20 08:50 61 10/02/20 07:00 36.4 C L 64 18 103/74 100 10/02/20 02:48 36.7 C 78 20 110/72 98 10/02/20 02:44 66 Laboratory Results Abnormal Lab Results 10/02/20 10/02/20 04:28 04:28 WBC 4.31 L RBC 4.74 Hgb 11.2 L Hct 38.3 L MCV 80.8 MCH 23.6 L MCHC 29.2 L RDW Std Deviation 64.5 H RDW Coeff of Dante 21.8 H Plt Count 179 MPV 10.4 Immature Gran % (Auto) 0.0 Neut % (Auto) 68.9 Lymph % (Auto) 16.5 [place] % (Auto) 11.8 Eos % (Auto) 2.6 Baso % (Auto) 0.2 Neut # (Auto) 2.97 Lymph # (Auto) 0.71 L [place] # (Auto) 0.51 Eos # (Auto) 0.11 Baso # (Auto) 0.01 Immature Gran # (Auto) 0.00 Anisocytosis Present Ovalocytes 1+ Echinocytes 1+ Sodium 143 Potassium 4.2 Chloride 113 H Carbon Dioxide 27 Anion Gap 3.0 BUN 22 H Creatinine 1.35 Est Cr Clr Drug Dosing 50.7 Est GFR ( Amer) 62.1 Est GFR (Non-Af Amer) 53.6 BUN/Creatinine Ratio 16.4 Glucose 89 Calcium 8.3 L Magnesium 2.1 PG Care Time/CCT Total # of Minutes Spent Total Time Spent with Patient: Total time spent is greater than 50% in coordination of care (as documented) at patient's floor/unit and/or counseling patient: Coding Level of Care Code 16620 Subseq Hosp Care Lvl 2 Diagnoses Decompensated heart failure I50.9 A-fib I48.91 Atrial fibrillation type: unspecified Ischemic cardiomyopathy I25.5 Mitral regurgitation I34.0 CAD (coronary artery disease) I25.10 Noncompliance Z91.19 (1) A-fib Atrial fibrillation type: unspecified Qualified Code(s): I48.91 - Unspecified atrial fibrillation
[2020-10-02] MEDS: traMADol HCL 50 MG TABLET PO PRN ×2 (13:48→23:51)
[2020-10-02] MEDS: OLANZapine 5 MG TABLET PO SCH (20:47)
[2020-10-03] MEDS ORDERED: SODIUM CHLORIDE 0.9% 500 ML IV SCH (03:45)
[2020-10-03] MEDS: LEVOTHYROXINE SODIUM 50 MCG TABLET PO SCH (06:07)
[2020-10-03] MEDS ORDERED: SODIUM CHLORIDE 0.9% 1000ML 500 ML IV ONE (07:40)
--- NOTE | 2020-10-03 07:43 | Hospitalist Progress Note ---
Date of Service October 03, 2020 Assessment & Plan (1) Non-compliance: ASSESSMENT AND PLAN: This is a 70-year-old male who is noncompliant with medication, who presented with shortness of breath. 1. Shortness of breath:Acute on chronic systolic CHF CTA of the chest unremarkable except for mild right pleural effusion. He has a history of congestive heart failure with EF of 15% to 20%. Supposed to be on Lasix and Aldactone, noncompliant with the medications. In the ER, he was given IV Lasix 40. hold IV Lasix resume tonight, spironolactone and potassium. Cards on case 2. History of atrial fibrillation, rate is under control, noncompliant with medication. Restarted Toprol-XL. Also is on aspirin and Plavix. 3. History of chronic right leg lymphedema and chronic wounds. Recently was treated with Cipro and amoxicillin for his pseudomonas and enterococcus. We will reculture him as there appears to be some drainage. Wound care. 4. Hypothyroidism. Levothyroxine. 5. History of paranoid schizophrenia. Risperidone and Olanzapine. 6. Deep venous thrombosis prophylaxis with Lovenox. 7. History of prolonged QT. Avoid QT prolonging drugs and follow the repeat EKG. 8. Disposition, med tele. Code status, level 1 full code. Social service to help with discharge planning. Labs Checked ROS-No Headache, No Visual Changes, No Nausea, No Vomiting, No Fever, No Chills, No Neck Pain or Stiffness, No Chest Pain, No Palpitations, No SOB, No LOCK, No Cough, No Sputum, No Wheezing, No Abdominal Pain, No Diarrhea, No Hematemesis, No Hemoptysis, No Unexpected Weight Loss, No Flank pain, No Melena, No Hematochezia, No Frequency, No Urgency, No Burning, No Hematuria, No Rashes, No Diaphoresis. Appetite is Normal Physical Exam Gen-AAO x 3, NAD, Afebrile, thin Head-NCAT, EOMI, PERRLA, Anicteric Sclera, No Posterior Pharyngeal Erythema Neck-Supple, No JVD, No Thyromegaly, No Masses, No LAD, No Bruits Lungs-Clear to Auscultation Bilaterally, No Rales, No Rhonchi, No Wheezing, No Crepitus Chest-No S4, +S1, +S2, No S3, No Murmurs, No Rubs, No Gallops, No Ectopy Abdomen-Soft, Bowel Sounds Present, Non Tender, Non Distended, No Hepatomegaly, No Splenomegaly, No Palpable Masses, No Rebound, No Rigidity, No Guarding Musculoskeletal-Full Range of Motion Bilaterally, No CVAT Extremities-RLE Lymphedema, c scaly stasis Dermatitis Nuero-Cranial Nerves II-XII grossly intact, Motor WNL, DTRs WNL, Strength WNL, Non Focal Psych-Normal Mood Admission and Anticipated Discharge Date Admission Date: October 02, 2020 Results & Data Results & Data ([facility]) Vital Signs (Past 12 Hours) Vital Signs Temp Pulse Pulse Resp BP Pulse Ox 10/03/20 07:16 56 L 10/03/20 05:25 81/58 L 10/03/20 03:36 35.9 C L 41 L 16 79/58 L 95 10/03/20 00:00 70 10/02/20 23:16 35.9 C L 65 18 93/60 L 96
[2020-10-03] MEDS: traMADol HCL 50 MG TABLET PO PRN (07:56)
[2020-10-03] MEDS: ENOXAPARIN INJ 40 MG/0.4 ML SYR SQ SCH (07:57)
[2020-10-03] MEDS: SPIRONOLACTONE 12.5 MG TAB PO SCH (07:57)
[2020-10-03] MEDS: ASPIRIN 81 MG ECTAB PO SCH (07:57)
[2020-10-03] MEDS ORDERED: MoRPHine SULFATE 2 MG/ML CARP ONE (08:42)
[2020-10-03 08:56] LABS: Hematocrit (blood only) 36.3 % (42-52); Hemoglobin 10.9 g/dL (14.0-18.0); Mean Corpuscular Hemoglobin 24.1 pg (25-34); Mean Corpuscular Volume 80.1 fL (80-100); Mean Platelet Volume 10.5 fL (7.4-10.4); Platelet Count 152 K/uL (130-400); RDW Coefficient of Variation 22.1 % (11.5-14.5); Red Blood Count 4.53 M/uL (4.7-6.1); White Blood Count 6.18 K/uL (4.8-10.8)
[2020-10-03 09:09] LABS: Base Excess VBG -3.6 mEq/L; HCO3 VBG 23 mmol/L; PCO2 VBG 46 mmHg (38-50); PO2 VBG 21 mmHg; pH VBG 7.31 (7.36-7.41)
[2020-10-03 09:11] LABS: Oxygen Saturation VBG < 60.0 %
[2020-10-03] MEDS ORDERED: NOREPINEPHRINE BITARTRATE 1 MG/ML 4 ML VIAL IV ONE (09:29)
[2020-10-03 10:02] LABS: BUN Creatinine Ratio 19.3 (10-20); Calcium 8.1 mg/dl (8.5-10.1); Creatinine Clr Calc Pharmacy 40.2 ml/min; Est GFR (Non-African American) 40.5; Potassium 5.3 mmol/L (3.5-5.1)
--- NOTE | 2020-10-03 10:12 | Critical Care Progress Note ---
Date of Service October 03, 2020 Assessment & Plan (1) CHF (congestive heart failure): Reason Critically Ill: []-year-old [female] [male] here with a PMHx significant for [] who presented with [] and who was admitted for []. Neuro - Sedation: none Analgesia: [] [] Cardiac - [] Respiratory - [] GI - [] diet RENAL/LYTES - [] [No significant electrolyte derangement.] Replace lytes as needed. - [] [No concerns at this time.] ENDO - [] HEME - [] [Stable H&H.] [Will monitor for any drops in the setting of Heparin gtt] ID - [] [No concerns for infection at this point.] [Monitor fever curve.] INTEGUMENTARY - [] LINES/IV ACCESS - - PIVs intact. - Right radial A line placed. - Right IJ placed. DVT PROPHYLAXIS - [] [Heparin gtt.] Thank you for allowing us to be part of this patient's care. Please refer to []'s documentation for any further recommendations. (2) Dyspnea: (3) Bilateral edema of lower extremity: (4) Chronic cutaneous venous stasis ulcer: (5) COPD with emphysema: (6) Pleural effusion on right: (7) A-fib: (8) Acute kidney failure: (9) Ischemic cardiomyopathy: (10) Anxiety: (11) HTN (hypertension): (12) Schizophrenia: Admission and Anticipated Discharge Date Admission Date: October 02, 2020 Supervising Physician Co-Signing Physician Notes Dr. Farmer was resident physician during care of patient. I separately evaluated patient for recio portions of the history and the exam. I was present during the critical portion of medical decision making, and I discussed the case with the resident. I generally agree with the findings and plan. Patient was a code purple, for acute hypotension and bradycardia. Was contacted by Dr. Britt patient remained hypotensive and bradycardic. During my bedside evaluation patient had a limited bedside echo which demonstrated significantly reduced EF and bradycardia. Results & Data Results & Data ([facility]) Vital Signs (Past 12 Hours) Vital Signs Temp Pulse Pulse Resp BP Pulse Ox 10/03/20 07:53 36.6 C 63 18 83/66 L 92 10/03/20 07:16 56 L 10/03/20 05:25 81/58 L 10/03/20 03:36 35.9 C L 41 L 16 79/58 L 95 10/03/20 00:00 70 10/02/20 23:16 35.9 C L 65 18 93/60 L 96 Coding Diagnoses CHF (congestive heart failure) I50.43 Heart failure chronicity: acute on chronic Heart failure type: combined systolic and diastolic Dyspnea R06.00 Dyspnea type: dyspnea on exertion Bilateral edema of lower extremity R60.0 Chronic cutaneous venous stasis ulcer I83.009; L97.909 COPD with emphysema J43.9 Pleural effusion on right J90 A-fib I48.91 Atrial fibrillation type: unspecified Acute kidney failure N17.9 Ischemic cardiomyopathy I25.5 Anxiety F41.9 HTN (hypertension) I10 Schizophrenia F20.9 Schizophrenia type: unspecified (1) CHF (congestive heart failure) Heart failure chronicity: acute on chronic Heart failure type: combined systolic and diastolic Qualified Code(s): I50.43 - Acute on chronic combined systolic (congestive) and diastolic (congestive) heart failure (2) A-fib Atrial fibrillation type: unspecified Qualified Code(s): I48.91 - Unspecified atrial fibrillation (3) Dyspnea Dyspnea type: dyspnea on exertion Qualified Code(s): R06.00 - Dyspnea, unspecified (4) Schizophrenia Schizophrenia type: unspecified Qualified Code(s): F20.9 - Schizophrenia, unspecified
[2020-10-03] MEDS ORDERED: FUROSEMIDE 40 MG in SYRINGE 0 ML IV ONE (10:15)
--- NOTE | 2020-10-03 10:18 | XRay Report ---
XR chest 1V portable HISTORY: Post central line COMPARISON: Chest 10/01/2020. FINDINGS: Interval placement of right subclavian central venous catheter with the tip terminating in the expected location of the SVC. Of note, the tip is partially obscured by a cardiac monitoring lead . No pneumothorax. Small to moderate right pleural effusion and right basilar densities are again not ed. There are few left basilar linear densities. Cardiac silhouette remains moderately enlarged. IMPRESSION: 1. Right subclavian central venous catheter terminates at the SVC. 2. No pneumothorax. 3. Redemonstration of the small to moderate right pleural effusion and right basilar densities. ACT 112: Negative or not required by law. Electronically signed by: Srikanth Ferrell M.D. 10/03/2020 10:17 AM
[2020-10-03 10:51] LABS: INR 1.3 (0.9-1.1); Partial Thromboplastin Ratio 1.1; Partial Thromboplastin Time 31.8 Seconds (21.0-31.0); Prothrombin Time 13.9 Seconds (9.0-12.0)
[2020-10-03] MEDS: UMECLIDINIUM BROMIDE 62.5MCG/BLISTER 7 PUFFS/INHALER INH SCH (11:10)
[2020-10-03] MEDS: CLOPIDOGREL BISULFATE 75 MG TAB PO SCH (11:11)
[2020-10-03] MEDS: risperiDONE 0.5 MG TABLET PO SCH ×2 (11:11→21:16)
[2020-10-03] MEDS: POTASSIUM CHLORIDE PWD 20 MEQ PACK PO SCH (11:11)
[2020-10-03] MEDS: ATORVASTATIN 40 MG TAB PO SCH (11:11)
[2020-10-03 11:28] LABS: Albumin Level 2.8 gm/dl (3.4-5.0); Bilirubin Direct 0.8 mg/dl (0-0.2); Bilirubin,Total 1.7 mg/dl (0.2-1); Phosphorus 4.2 mg/dl (2.5-4.9); Thyroid Stimulating Hormone 21.1 uIu/ml (0.300-4.500); Total Protein 6.7 gm/dl (6.4-8.2)
[2020-10-03] MEDS ORDERED: Heparin IV Standard *NO* Bolus IV SCH (11:56)
[2020-10-03 12:02] LABS: iSTAT Arterial Blood Gas HCO3 20 meg/L (19-24); iSTAT Arterial Blood Gas pCO2 43 mmHg (35-46); iSTAT Arterial Blood Gas pH 7.27 (7.35-7.45); iSTAT Arterial Blood Gas pO2 161 mmHg (80-95); iSTAT Carbon Dioxide 21 mmol/L (24-31); iSTAT Site Art Line
[2020-10-03] MEDS: HEPARIN SODIUM/DEXTROSE 25,000 UNITS/500 ML BAG IV SCH (13:26)
[2020-10-03 13:51] LABS: Lyme Ab IgG w/WB Rflx Negative (Negative); Lyme Ab IgM w/WB Rflx Negative (Negative)
--- NOTE | 2020-10-03 15:42 | Critical Care Consultation ---
Date of Consultation October 03, 2020 Assessment & Plan (1) CHF (congestive heart failure): Reason Critically Ill: 70 yo male PMHx significant for CAD s/p stent, ischemic cardiomyopathy, HFrEF baseline 15-20%, hypothyroidism, paranoid schizophrenia, ____ who was initially admitted for dyspnea on exertion and who this morning was a code purple for acute hypotension, chest pain, and bradycardia. Patient remained hypotensive despite IV fluids and patients fingers appeared cyanotic. ICU team was consulted due to continued hypotension on pressor therapy. Neuro/Psych - Sedation: none Analgesia: none Paranoid Schizophrenia: - History of, with longstanding history of medication noncompliance due to paranoia about his medications "going bad in his apartment". - Currently at his baseline neurologic and psychiatric status. - With multiple admissions this year alone for similar presentations of shortness of breath. - States that he "feels safe at the hospital". - Has been prescribed olanzapine and risperidone in the past for his schizophrenia; continue these while admitted. - Had long discussion today about his goals regarding his care. He recognizes that the medications are important that he takes however cannot reconcile this with his fear of taking "bad medications". - States multiple times that if he needed intubation, cardioversion/defibrillation, or chest compressions that he would want "all of those things". - Patient has a brother however he does not participate in his care. - Palliative care consult placed given multiple admissions for same presentation with continued medication noncompliance; question of medical futility with regard to treating patient's heart failure and AFib with diuretics and beta blockers in this circumstance given patient's inability to reconcile desire to live with need for medications and paranoid delusions. Cardiac - Hypotension/Bradycardia: - This morning complained of acute chest pain, and was found to be hypotensive and bradycardic. - Code Purple called, patient was given IV fluids and when his pressures did not improve he was placed on pressure support (levophed). - Initial troponin negative, EKG without ST or T wave changes but with bradycardia and couplets. - Limited bedside echo demonstrated significantly reduced EF and bradycardia, no pericardial effusion. - TSH elevated but with normal FT4. - Lyme IgG and IgM negative. - Patient was on Levophed this AM for hypotension and had arterial line placed; pressors were discontinued at 2:30PM today and BP now 120s/50-60s. - Continues to have mild bradycardia to high 50s. Baseline HR in prior admissions is 60s-80s. - Can receive spironolactone in AM, holding Lasix CAD: - History of catheterization in May 2019; s/p PCI x1 to obtuse marginal at that time. - History this admission from patient that he has not been taking his cardiac medications for several weeks. - Restarted this admission on aspirin, Plavix, high dose statin, beta polo, spironolactone. Holding beta polo in the setting of intermittent bradycardia. - No anginal symptoms at this time. WKG without acute ST/T wave changes. Troponin negative, trending. - Currently on Heparin drip given anginal symptoms this morning with known isch emic cardiomyopathy. HFrEF: - Echocardiogram 04/2020 showed LVEF 15-20% with akinesis of the inferolateral, basal anterolateral, base to mid inferior, and basal inferoseptal wall segments; otherwise severe global hypokinesis. - Normal right ventricular size with moderately reduced systolic function. - Moderate biatrial dilation. - Limited bedside echo demonstrated significantly reduced EF and bradycardia. - Beta polo (temporary hold), spironolactone as above. - BNP 3268 this admission. - Lasix 80mg PO BID. Respiratory - COPD: - History of, not on oxygen at home. - Umeclidinium bromide inhaler 1 puff daily. - Ipratropium bromide inhaler q4h PRN. - Titrate oxygen as needed to maintain O2 >90%. GI - - Heart Healthy diet. - No present GI concerns. - GI ppx with pantoprazole 40mg daily. RENAL/LYTES - - K 5.3 this morning. Repeat pending. - Holding KCl 20meq daily for now until repeat has resulted. - Replace lytes as needed. LAUREN: - Baseline creatinine 1.3; today with creatinine 1.7. - Given signs of fluid overload and low urine output since this AM have started Lasix 80 PO BID. - Nephrology consult placed given LAUREN and tenuous fluid status with severely reduced EF. - - No concerns at this time, no urinary complaints. - UA showed 1+ bacteria and LE, however significant epithelials. - UCx pending. - With poor UO today, total 250mL over 8 hours. - Patient is refusing Courtney, measure Is/Os as able. - Lasix as above, encourage PO intake of fluids. ENDO - - Random Cortisol 27.7 this AM. Hypothyroidism: - History of noncompliant with home medications. - TSH this admission 21, FT4 of 6. - Suggests subclinical hypothyroidism. - Continue levothyroxine 50mcg daily. HEME - - Baseline hemoglobin ~10, stable. - MCV 80, normocytic. - Will monitor for any drops in the setting of Heparin gtt. ID - - No concerns for infection at this point. - UCx/BCx x2 pending from workup during code purple this AM. - Monitor fever curve. INTEGUMENTARY - - History of pressure ulcers in the past. - Turn and reposition q2h. Chronic venous stasis ulcers: - History of, wound care following this admission. - Do not note any changes or apparent infection from last admission. LINES/IV ACCESS - - PIVs intact. - Right IJ and right radial A line placed. DVT PROPHYLAXIS - - Heparin gtt. Thank you for allowing us to be part of this patient's care. Please refer to Dr. Taylor's documentation for any further recommendations. Supervising Physician Co-Signing Physician Notes Dr. Betancur was resident physician during care of patient. I separately evaluated patient for recio portions of the history and the exam. I was present during the critical portion of medical decision making, and I discussed the case with the resident. I generally agree with the findings and plan. Definitive hypoperfusion, I believe this is most consistent with cardiogenic shock. Placed central line and arterial line. Patient is improving. Likely will need serious palliative care/medical futility discussion. Aggressive diuresis at this time History of Present Illness Attending Physician: Arnold Britt DO History of Present Illness 70 yo male PMHx significant for CAD s/p stent, ischemic cardiomyopathy, HFrEF baseline 15-20%, hypothyroidism, paranoid schizophrenia, AFib not on AC, Hx LE DVT, HTN, who was initially admitted for dyspnea on exertion and who this morning was a code purple for acute hypotension, chest pain, and bradycardia. Patient remained hypotensive despite IV fluids and patients fingers appeared cyanotic. ICU team was consulted due to continued hypotension on pressor therapy. During my interview patient is alert and oriented, complaining of feeling very weak. Not complaining of active chest pain, shortness of breath, dizziness, headache, abdominal pain, nausea, fevers. When asked why he does not take his medications at home he reports that "for the first few days the medicat ions are good. Then my apartment makes them go bad, and they do not work anymore, so I stop taking them. The hospital is safe and I always feel better here". Allergies Allergy/AdvReac Type Severity Reaction Status Date / Time horse dander Allergy Unknown Unknown Verified 10/01/20 00:22 tetanus toxoid, adsorbed Allergy Unknown Unknown Verified 10/01/20 00:22 Home Medications Home Medications Medication Instructions Recorded Confirmed Type No Known Home Medications 07/28/20 10/01/20 History Patient History Medical History (Updated 10/02/20 @ 00:33 by Karley Barraza DO) CAD (coronary artery disease) Cholecystitis, acute Chronic systolic CHF (congestive heart failure) History of DVT (deep vein thrombosis) History of pancreatitis History of testicular cancer History of tobacco abuse Homelessness HTN (hypertension) Hypertension Hyperthyroidism Ischemic cardiomyopathy Lymphedema of right lower extremity Mitral regurgitation Pleural effusion Schizophrenia STEMI (ST elevation myocardial infarction) Tricuspid regurgitation Surgical History Hx of heart artery stent Status post cardiac catheterization Family History Other Unknown family medical history Social History Smoking Status: Former smoker Number of Years Since Quit: 10; Second Hand Exposure: No; Do You Dip or Chew Tobacco: No; Tobacco Cessation Education Requested by Patient: No Hx Alcohol Use: No Hx Substance Use: No Preferred Language: Malian Communication Ability: Effective Automobile Locator Required: No Beliefs That Will Affect Care: None marital status: Single Current Living Situation: Alone Current Living Situation Comment: [facility] How many Children do You have: 0 Other Information That Helps Us Care for You: No Feels Safe at Home: Yes Assistive Devices: None Review of Systems Review of Systems: All systems reviewed & are unremarkable except as noted in HPI & below Constitutional: + malaise and + weakness; no fever and no chills Respiratory: no cough and no dyspnea Cardiovascular: no chest pain, no palpitations and no edema Gastrointestinal: no abdominal pain, no constipation and no diarrhea/loose stools Genitourinary: no dysuria and no hematuria Physical Exam Physical Exam: VITAL SIGNS - Vital signs and nursing notes were reviewed. GENERAL - 70 yo M, frail appearing, thin, in no acute distress resting comfortably in bed. SKIN - No rashes. Right IJ, right radial arterial line in place clean dry and in tact dressings. HEAD - NC/AT. EYES - PERRL. Sclera anicteric. Palpebral conjunctiva pink and moist with no injection noted. EARS - No deformities of external structures noted on gross examination bila terally. NOSE - Midline and without cyanosis. No epistaxis or purulent drainage noted. MOUTH/OROPHARYNX - No perioral cyanosis. Poor dentition. NECK - Supple to palpation. No nuchal rigidity. LUNGS - Lungs clear to auscultation bilaterally. CARDIAC - HR irregularly irregular, non-tachycardic. No murmur, rubs, or gallops appreciated. ABDOMEN - Soft, nontender, nondistended, with normal bowel sounds. EXTREMITIES - Peripheral cyanosis noted in fingers and toes on initial exam; improved on subsequent exams. R>L chronic peripheral leg edema. NEUROLOGIC - No focal neurological deficits noted on exam. PSYCH - Patient alert and oriented, however will intermittently have paranoid delusions (example: after A line placed, he mentioned that his knee had fallen off and he had to put it back, so he picked up air with his hand and placed it on his knee). Results & Data Results & Data ([facility]) Vital Signs (Past 12 Hours) Vital Signs Temp Pulse Pulse Resp BP BP Pulse Ox 10/03/20 14:30 36.2 C L 66 17 120/85 98 10/03/20 14:01 63 21 92 10/03/20 13:59 57 L 21 103/69 10/03/20 13:29 58 L 16 110/78 10/03/20 13:01 56 L 12 88/56 L 10/03/20 13:00 58 L 14 10/03/20 12:30 61 16 99/61 L 10/03/20 12:00 61 21 102/76 10/03/20 11:01 36.4 C L 66 19 10/03/20 11:00 58 L 16 138/87 10/03/20 10:31 64 17 129/61 10/03/20 10:14 56 L 29 H 94/65 L 11/14/20 10:00 56 L 90 10/03/20 09:30 53 L 10/03/20 07:53 36.6 C 63 18 83/66 L 92 10/03/20 07:16 56 L 10/03/20 05:25 81/58 L Resident Activity Tracking Resident Involvement: Resident Care Provided Care Provided: Adult Hospital Medicine (1) CHF (congestive heart failure) Heart failure chronicity: acute on chronic Heart failure type: combined systolic and diastolic Qualified Code(s): I50.43 - Acute on chronic combined systolic (congestive) and diastolic (congestive) heart failure
--- NOTE | 2020-10-03 16:20 | Procedure Note ---
Procedure Note Date of Service October 03, 2020 Procedure Name: Right radial A line placement Procedure time out: Side/site verified Consent obtained: Verbal Performed by: Myself, under direct supervision and then completion by Dr. Taylor Indications: Diagnostic Contraindications: None Description: The patient was placed in supine position, right radial A-line placement visualized under ultrasound guidance, and then under strict sterile field, the skin was prepped with chlorhexidine and anesthetized with lidocaine 1%. Using ultrasound guidance, one attempt made by myself and one attempt made by Dr. Taylor. The line was placed and secured with stat lock, and covered with surgical dressing. Patient tolerated the procedure very well, no immediate complication. Complications: None Patient tolerated procedure: Well Coding Resident Activity Tracking Resident Involvement: Resident Care Provided Care Provided: Adult Hospital Medicine
[2020-10-03 16:42] LABS: Appearance Urine Clear (Clear); Bilirubin Urine Negative (Negative); Blood Urine Negative (Negative); Color Urine Dark Yellow; Epithelial Cell Urine Auto 20-30 /lpf (0-5); Glucose Urine UA Negative (Negative); Ketones Urine Negative (Negative); Leukocyte Esterase Urine 1+ (Negative); Nitrite Urine Negative (Negative); Protein Urine 1+ (Negative); RBC Urine Automated 0-4 /hpf (0-4); Specific Gravity Urine 1.027 (1.000-1.030); Urobilinogen Urine Negative (Negative)
[2020-10-03 17:05] LABS: Bacteria Urine Automated 1+ (Negative)
--- NOTE | 2020-10-03 17:17 | Billing Data ---
Date of Service October 03, 2020 Coding Level of Care Code Critical Care 1st 30-74 mins Comment Arterial line note
--- NOTE | 2020-10-03 17:19 | Procedure Note ---
Procedure Note Date of Service October 03, 2020 Procedure date: Noted above Procedure: Central venous access Pre-procedure indication: Shock/need for vasoactive medication administration Post-procedure Diagnosis: same as above Prior to Procedure: Informed Consent: The risks, benefits, indications, potential complications, and alternatives were explained to the patient and informed consent obtained. Attending Staff: Alana Taylor DO Resident/APC: Not applicable Skin Prep: Chlorhexidine Anesthesia: 4 mL 1% lidocaine without epinephrine The identity of the patient was confirmed and a bedside time out was performed. Description of Procedure: After sterile prep and sterile drape utilizing standard sterile technique the superficial skin of the right subclavian area was anesthetized. The target vessel was identified and entered with an 18-gauge needle. Dark venous blood return was noted. A guidewire was inserted through the needle and into the vessel. The needle was withdrawn and a skin iveth was made. A tissue dilator was advanced via Seldinger technique and removed. A triple lumen catheter was inserted via Seldinger technique and the guidewire removed. All ports anna and flushed easily. A Biopatch was placed, and the catheter was secured via silk suture. A sterile dressing was then applied. Complications: None Estimated blood loss: Trace Patient tolerated the procedure well. Postprocedural x-ray was reviewed, the line is in good position and no pneumothorax is noted. Coding CPT Codes Tubes, Drains, and Vasc Access - Tubes, Drains, and Vasc Access: [id number] Insertion Of Non-tunneled Catheter Age 7 Yrs> ([id number]) [place] Procedure Codes ([place]) Tubes, Drains, and Vasc Access Procedure 1: Tubes, Drains, and Vasc Access: [id number] Insertion Of Non-tunneled Catheter Age 7 Yrs>
[2020-10-03 18:47] LABS: Partial Thromboplastin Ratio 3.4
[2020-10-03 18:49] LABS: BUN Creatinine Ratio 22.5 (10-20); Creatinine Clr Calc Pharmacy 43.6 ml/min; Est GFR (African American) 51.7; Est GFR (Non-African American) 44.6; Potassium 5.3 mmol/L (3.5-5.1)
[2020-10-03 18:52] LABS: Partial Thromboplastin Time 96.1 Seconds (21.0-31.0)
[2020-10-03 18:54] LABS: Troponin I 0.035 ng/ml (0-0.045)
[2020-10-03] MEDS: OLANZapine 5 MG TABLET PO SCH (21:15)
[2020-10-04 00:36] LABS: Partial Thromboplastin Ratio 3.3
[2020-10-04 00:41] LABS: Partial Thromboplastin Time 92.1 Seconds (21.0-31.0)
[2020-10-04 01:49] LABS: Mean Corpuscular Hgb Conc 30.3 g/dL (32-36); Mean Corpuscular Volume 79.1 fL (80-100); Mean Platelet Volume 10.6 fL (7.4-10.4); Platelet Count 155 K/uL (130-400); RDW Coefficient of Variation 22.2 % (11.5-14.5); RDW Standard Deviation 65.2 fL (36.4-46.3); Red Blood Count 4.17 M/uL (4.7-6.1); White Blood Count 6.54 K/uL (4.8-10.8)
[2020-10-04 02:06] LABS: BUN Creatinine Ratio 23.9 (10-20); Calcium 7.6 mg/dl (8.5-10.1); Creatinine Clr Calc Pharmacy 43.3 ml/min; Est GFR (African American) 51.3; Est GFR (Non-African American) 44.3; Phosphorus 4.5 mg/dl (2.5-4.9); Potassium 5.1 mmol/L (3.5-5.1)
[2020-10-04 02:11] LABS: Ferritin 11.9 ng/ml (8-388); Troponin I 0.044 ng/ml (0-0.045)
--- NOTE | 2020-10-04 06:46 | Electrocardiogram Report ---
Test Reason : Blood Pressure : / mmHG Vent. Rate : 060 BPM Atrial Rate : 060 BPM P-R Int : 000 ms QRS Dur : 104 ms QT Int : 486 ms P-R-T Axes : 000 059 014 degrees QTc Int : 486 ms Sinus rhythm with atrial bifgeminy Low voltage QRS Abnormal ECG When compared with ECG of 30-SEP-2020 23:22, HR has decreased Atrial bigeminy is now present Confirmed by Viktor Ingram ([id number]) on 10/04/2020 6:46:40 AM Referred By: REFERRED SELF Confirmed By:Viktor Ingram
--- NOTE | 2020-10-04 06:48 | Electrocardiogram Report ---
Test Reason : Blood Pressure : / mmHG Vent. Rate : 054 BPM Atrial Rate : 054 BPM P-R Int : 000 ms QRS Dur : 098 ms QT Int : 496 ms P-R-T Axes : 000 081 019 degrees QTc Int : 470 ms Sinus rhythm with atrial bigeminy Low voltage QRS Abnormal ECG When compared with ECG of 03-OCT-2020 08:59, (unconfirmed) No significant change Confirmed by Viktor Ingram ([id number]) on 10/04/2020 6:47:53 AM Referred By: REFERRED SELF Confirmed By:Viktor Ingram
--- NOTE | 2020-10-04 06:54 | Hospitalist Progress Note ---
Date of Service October 04, 2020 Assessment & Plan (1) Non-compliance: ASSESSMENT AND PLAN: This is a 70-year-old male who is noncompliant with medication, who presented with shortness of breath. 1. Shortness of breath:Acute on chronic systolic CHF CTA of the chest unremarkable except for mild right pleural effusion. He has a history of congestive heart failure with EF of 15% to 20%. Supposed to be on Lasix and Aldactone, noncompliant with the medications. In the ER, he was given IV Lasix 40. Cards on case 2. History of atrial fibrillation, rate is under control, noncompliant with medication. Restarted Toprol-XL. Also is on aspirin and Plavix. 3. History of chronic right leg lymphedema and chronic wounds. Recently was treated with Cipro and Amoxicillin for his pseudomonas and enterococcus. We will reculture him as there appears to be some drainage. Wound care. 4. Hypothyroidism. Levothyroxine. 5. History of paranoid schizophrenia. Risperidone and Olanzapine. 6. Deep venous thrombosis prophylaxis with Lovenox. 7. History of prolonged QT. Avoid QT prolonging drugs and follow the repeat EKG. 8. Disposition, ICU. Code status, level 1 full code. Social service to help with discharge planning. Cr rising, off Levofed, BP 107 Systolic on 10/03 at At 0840 I was called by my partner and told that a code purple was called on my patient. When I arrived the patient was somnolent, his BP was in the low 80s and he had just gotten his 500 ml bolus I ordered. His hands and feet were profoundly cyanotic. I had saline running wide open, but his BP was not coming up and he was bradycardic. I originally transferred him to PCU, but since he needed pressors and closer monitoring, I discussed his care c ICU attending and moved him there. While there a central line was placed and he was started on Levofed. He is stabilized and in the ICU. His code status was d iscussed at length by the ICU Dr and he wants to remain a full code. Labs Checked ROS-No Headache, No Visual Changes, No Nausea, No Vomiting, No Fever, No Chills, No Neck Pain or Stiffness, No Chest Pain, No Palpitations, No SOB, No LOCK, No Cough, No Sputum, No Wheezing, No Abdominal Pain, No Diarrhea, No Hematemesis, No Hemoptysis, No Unexpected Weight Loss, No Flank pain, No Melena, No Hematochezia, No Frequency, No Urgency, No Burning, No Hematuria, No Rashes, No Diaphoresis. Appetite is Normal Physical Exam Gen-AAO x 3, NAD, Afebrile, thin Head-NCAT, EOMI, PERRLA, Anicteric Sclera, No Posterior Pharyngeal Erythema Neck-Supple, No JVD, No Thyromegaly, No Masses, No LAD, No Bruits Lungs-Clear to Auscultation Bilaterally, No Rales, No Rhonchi, No Wheezing, No Crepitus Chest-No S4, +S1, +S2, No S3, No Murmurs, No Rubs, No Gallops, No Ectopy Abdomen-Soft, Bowel Sounds Present, Non Tender, Non Distended, No Hepatomegaly, No Splenomegaly, No Palpable Masses, No Rebound, No Rigidity, No Guarding Musculoskeletal-Full Range of Motion Bilaterally, No CVAT Extremities-RLE Lymphedema, c scaly stasis Dermatitis, BLE cyanosis improved from yesterday Nuero-Cranial Nerves II-XII grossly intact, Motor WNL, DTRs WNL, Strength WNL, Non Focal Psych-Normal Mood Admission and Anticipated Discharge Date Admission Date: October 02, 2020 Results & Data Results & Data ([facility]) Vital Signs (Past 12 Hours) Vital Signs Pulse Resp BP Pulse Ox 10/04/20 05:00 60 13 97 10/04/20 04:25 63 13 107/70 10/04/20 04:00 61 20 10/04/20 03:24 59 L 11 L 90/61 L 10/04/20 03:00 62 10 L 99 10/04/20 02:24 59 L 7 L 102/65 96 10/04/20 02:00 71 29 H 82 L 10/04/20 01:25 65 15 102/57 L 95 10/04/20 01:00 62 16 89 L 10/04/20 00:25 63 17 114/69 89 L 10/04/20 00:01 63 16 105/77 87 L 10/04/20 00:00 61 7 L 91 10/03/20 23:25 59 L 16 105/77 97 10/03/20 23:00 55 L 12 96 10/03/20 22:25 60 7 L 110/56 L 10/03/20 22:00 58 L 11 L 91 10/03/20 21:25 68 14 119/75 10/03/20 21:00 62 19 77 L 10/03/20 20:24 62 15 119/79 91 10/03/20 20:00 62 18 10/03/20 19:25 58 L 7 L 117/80 97 10/03/20 19:00 63 12
[2020-10-04] MEDS: SPIRONOLACTONE 12.5 MG TAB PO SCH (07:32)
[2020-10-04] MEDS: risperiDONE 0.5 MG TABLET PO SCH ×2 (07:32→21:07)
[2020-10-04] MEDS: PANTOprazole 40 MG TAB PO SCH (07:32)
[2020-10-04] MEDS: UMECLIDINIUM BROMIDE 62.5MCG/BLISTER 7 PUFFS/INHALER INH SCH (07:32)
[2020-10-04] MEDS: ASPIRIN 81 MG ECTAB PO SCH (07:32)
[2020-10-04] MEDS: CLOPIDOGREL BISULFATE 75 MG TAB PO SCH (07:33)
[2020-10-04] MEDS: ATORVASTATIN 40 MG TAB PO SCH (07:33)
[2020-10-04] MEDS: LEVOTHYROXINE SODIUM 50 MCG TABLET PO SCH (07:33)
[2020-10-04] MEDS: ICU PROTOCOL FOR HYPERGLYCEMIA SCH (07:33)
[2020-10-04] MEDS: FUROSEMIDE 80 MG TAB PO SCH ×2 (07:37→15:56)
[2020-10-04] MEDS: traMADol HCL 50 MG TABLET PO PRN ×2 (07:37→21:07)
[2020-10-04 08:16] LABS: Partial Thromboplastin Ratio 2.6
[2020-10-04 08:21] LABS: Partial Thromboplastin Time 73.7 Seconds (21.0-31.0)
[2020-10-04] MEDS: HEPARIN SODIUM/DEXTROSE 25,000 UNITS/500 ML BAG IV SCH ×2 (08:48→15:56)
--- NOTE | 2020-10-04 12:42 | Critical Care Progress Note ---
Date of Service October 04, 2020 Assessment & Plan (1) Cardiogenic shock: Neuro/Psych - Paranoid Schizophrenia: - History of, with longstanding history of medication noncompliance due to paranoia about his medications "going bad in his apartment". - Currently at his baseline neurologic and psychiatric status. - With multiple admissions this year alone for similar presentations of shortness of breath. - States that he "feels safe at the hospital". - Has been prescribed olanzapine and risperidone in the past for his schizophrenia; continue these while admitted. - Had long discussion today about his goals regarding his care. He recognizes that the medications are important that he takes however cannot reconcile this with his fear of taking "bad medications". - States multiple times that if he needed intubation, cardioversion/defibrillation, or chest compressions that he would want "all of those things". - Patient has a brother however he does not participate in his care. - Palliative care consult placed given multiple admissions for same presentation with continued medication noncompliance; question of medical futility with regard to treating patient's heart failure and AFib with diuretics and beta blockers in this circumstance given patient's inability to reconcile desire to live with need for medications and paranoid delusions. -Patient also states that there are 2 females who would be best knowledgeable of him if he was unable to make decisions for himself who work at the [employer] which he stays in Cardiac - Hypotension/Bradycardia: - Cardiogenic shock: Resolved - NSTEMI - Patient has been seen by cardiology: Reviewed -Reinstitute medical management including metoprolol spironolactone possible LOIS inhibitor - TSH elevated but with normal FT4. -Noncompliance with previous thyroxine treatment - Lyme IgG and IgM negative. -Discontinue heparin in 24 hours HFrEF: - Echocardiogram 04/2020 showed LVEF 15-20% with akinesis of the inferolateral, basal anterolateral, base to mid inferior, and basal inferoseptal wall segments; otherwise severe global hypokinesis. - Normal right ventricular size with moderately reduced systolic function. - Moderate biatrial dilation. Respiratory - COPD: - History of, not on oxygen at home. - Umeclidinium bromide inhaler 1 puff daily. - Ipratropium bromide inhaler q4h PRN. - Titrate oxygen as needed to maintain O2 >90%. GI - - Heart Healthy diet. - No present GI concerns. - GI ppx with pantoprazole 40mg daily. RENAL/LYTES - -creatinine improved LAUREN: -Improved -Continue Lasix twice daily with Aldactone - Nephrology consult placed given LAUREN and tenuous fluid status with severely reduced EF. - -refused [facility] - - Random Cortisol 27.7 this AM. Hypothyroidism: - History of noncompliant with home medications. - TSH this admission 21, FT4 of 6. - Suggests subclinical hypothyroidism. - Continue levothyroxine 50mcg daily. HEME - - Baseline hemoglobin ~10, stable. - MCV 80, normocytic. - Will monitor for any drops in the setting of Heparin gtt. ID - - No concerns for infection at this point. - UCx/BCx x2 pending from workup during code purple this AM. - Monitor fever curve. INTEGUMENTARY - - History of pressure ulcers in the past. - Turn and reposition q2h. Chronic venous stasis ulcers: - History of, wound care following this admission. - Do not note any changes or apparent infection from last admission. LINES/IV ACCESS - - PIVs intact. - Right IJ and right radial A line placed. Discontinue central line and arterial line tomorrow after heparin infusion is complete DVT PROPHYLAXIS - - Heparin gtt. to discontinue 10/05 at 700 hours -Lovenox 40 mg subcu to start at 9 AM on 1116 Endocrine: ICU hyperglycemia protocol Code Status: Full: Reviewed prior palliative care notes -Has not been seen in approximately 1 year, will revisit to see if there is any change Disposition: Stable for downgrade out of ICU to telemetry status (2) CHF (congestive heart failure): (3) Non-compliance: (4) COPD (chronic obstructive pulmonary disease): (5) Chronic cutaneous venous stasis ulcer: (6) Medical non-compliance: (7) Acute on chronic systolic (congestive) heart failure: (8) Scrotal edema: (9) Elevated troponin I measurement: (10) Pleural effusion: (11) History of DVT (deep vein thrombosis): (12) Schizophrenia: (13) Anemia: (14) History of testicular cancer: (15) History of DVT of lower extremity: (16) Hypothyroidism: (17) Homeless single person: Admission and Anticipated Discharge Date Admission Date: October 02, 2020 Physical Exam Physical Exam: General: Alert. nontoxic. Skin: Warm, dry, Head: Atraumatic Ears, nose, mouth and throat: airway patent Cardiovascular: Normal peripheral perfusion Respiratory: no respiratory distress, scattered rhonchi Gastrointestinal: Non distended Musculoskeletal: Right lower extremity cellulitis and edema larger than left lower extremity Results & Data Results & Data ([facility]) Vital Signs (Past 12 Hours) Vital Signs Temp Pulse Resp BP Pulse Ox 10/04/20 11:00 64 14 96 10/04/20 10:00 63 14 97 10/04/20 09:25 61 12 96/65 L 95 10/04/20 09:00 62 12 98 10/04/20 08:30 63 12 99/59 L 99 10/04/20 08:00 36.4 C L 70 15 93 10/04/20 07:24 90 19 129/98 10/04/20 07:00 60 12 92 10/04/20 05:00 60 13 97 10/04/20 04:25 63 13 107/70 10/04/20 04:00 61 20 10/04/20 03:24 59 L 11 L 90/61 L 10/04/20 03:00 62 10 L 99 10/04/20 02:24 59 L 7 L 102/65 96 10/04/20 02:00 71 29 H 82 L 10/04/20 01:25 65 15 102/57 L 95 10/04/20 01:00 62 16 89 L Laboratory Results 10/04/20 10/04/20 10/04/20 Range/Units 08:45 07:40 01:37 WBC (4.8-10.8) K/uL RBC (4.7-6.1) M/uL Hgb (14.0-18.0) g/dL Hct (42-52) % MCV (80-100) fL MCH (25-34) pg MCHC (32-36) g/dL RDW Std Deviation (36.4-46.3) fL RDW Coeff of Dante (11.5-14.5) % Plt Count (130-400) K/uL MPV (7.4-10.4) fL Peripher Smr Path Cons APTT 73.7 H* (21.0-31.0) Seconds PTT Ratio 2.6 Sodium 144 (136-145) mmol/L Potassium 5.1 (3.5-5.1) mmol/L Chloride 116 H (98-107) mmol/L Carbon Dioxide 22 (21-32) mmol/L Anion Gap 6.0 (3-11) BUN 38 H (7-18) mg/dl Creatinine 1.58 H (0.6-1.4) mg/dl Est Cr Clr Drug Dosing 43.3 ml/min Est GFR ( Amer) 51.3 Est GFR (Non-Af Amer) 44.3 BUN/Creatinine Ratio 23.9 H (10-20) Glucose 96 (70-99) mg/dl Lactate (0.4-2.0) mmol/L Calcium 7.6 L (8.5-10.1) mg/dl Phosphorus 4.5 (2.5-4.9) mg/dl Magnesium 2.0 (1.8-2.4) mg/dl Iron 15 L (35-175) mcg/dl TIBC 316 (250-450) mcg/dl Transferrin 249 (200-360) mg/dl Ferritin 11.9 (8-388) ng/ml Troponin I 0.044 (0-0.045) ng/ml Urine Color Urine Appearance (Clear) Urine pH (4.5-7.5) Ur Specific [place] (1.000-1.030) Urine Protein (Negative) Urine Glucose (UA) (Negative) Urine Ketones (Negative) Urine Blood (Negative) Urine Nitrite (Negative) Urine Bilirubin (Negative) Urine Urobilinogen (Negative) Ur Leukocyte Esterase (Negative) Urine WBC (Auto) (0-5) /hpf Urine RBC (Auto) (0-4) /hpf U Hyaline Cast (Auto) (0-5) /lpf U Epithel Cells (Auto) (0-5) /lpf Urine Bacteria (Auto) (Negative) Nasal Screen MRSA (PCR) Negative (Negative) Lyme Disease IgG Ab (Negative) Lyme Disease IgM Ab (Negative) 10/04/20 10/04/20 10/03/20 Range/Units 01:37 00:04 18:19 WBC 6.54 (4.8-10.8) K/uL RBC 4.17 L (4.7-6.1) M/uL Hgb 10.0 L (14.0-18.0) g/dL Hct 33.0 L (42-52) % MCV 79.1 L (80-100) fL MCH 24.0 L (25-34) pg MCHC 30.3 L (32-36) g/dL RDW Std Deviation 65.2 H (36.4-46.3) fL RDW Coeff of Dante 22.2 H (11.5-14.5) % Plt Count 155 (130-400) K/uL MPV 10.6 H (7.4-10.4) fL Peripher Smr Path Cons Pending APTT 92.1 H* 96.1 H* (21.0-31.0) Seconds PTT Ratio 3.3 3.4 Sodium (136-145) mmol/L Potassium (3.5-5.1) mmol/L Chloride (98-107) mmol/L Carbon Dioxide (21-32) mmol/L Anion Gap (3-11) BUN (7-18) mg/dl Creatinine (0.6-1.4) mg/dl Est Cr Clr Drug Dosing ml/min Est GFR ( Amer) Est GFR (Non-Af Amer) BUN/Creatinine Ratio (10-20) Glucose (70-99) mg/dl Lactate (0.4-2.0) mmol/L Calcium (8.5-10.1) mg/dl Phosphorus (2.5-4.9) mg/dl Magnesium (1.8-2.4) mg/dl Iron (35-175) mcg/dl TIBC (250-450) mcg/dl Transferrin (200-360) mg/dl Ferritin (8-388) ng/ml Troponin I (0-0.045) ng/ml Urine Color Urine Appearance (Clear) Urine pH (4.5-7.5) Ur Specific [place] (1.000-1.030) Urine Protein (Negative) Urine Glucose (UA) (Negative) Urine Ketones (Negative) Urine Blood (Negative) Urine Nitrite (Negative) Urine Bilirubin (Negative) Urine Urobilinogen (Negative) Ur Leukocyte Esterase (Negative) Urine WBC (Auto) (0-5) /hpf Urine RBC (Auto) (0-4) /hpf U Hyaline Cast (Auto) (0-5) /lpf U Epithel Cells (Auto) (0-5) /lpf Urine Bacteria (Auto) (Negative) Nasal Screen MRSA (PCR) (Negative) Lyme Disease IgG Ab (Negative) Lyme Disease IgM Ab (Negative) 10/03/20 10/03/20 10/03/20 Range/Units 18:19 16:10 14:29 WBC (4.8-10.8) K/uL RBC (4.7-6.1) M/uL Hgb (14.0-18.0) g/dL Hct (42-52) % MCV (80-100) fL MCH (25-34) pg MCHC (32-36) g/dL RDW Std Deviation (36.4-46.3) fL RDW Coeff of Dante (11.5-14.5) % Plt Count (130-400) K/uL MPV (7.4-10.4) fL Peripher Smr Path Cons APTT (21.0-31.0) Seconds PTT Ratio Sodium 141 (136-145) mmol/L Potassium 5.3 H (3.5-5.1) mmol/L Chloride 114 H (98-107) mmol/L Carbon Dioxide 19 L (21-32) mmol/L Anion Gap 8.0 (3-11) BUN 35 H (7-18) mg/dl Creatinine 1.57 H (0.6-1.4) mg/dl Est Cr Clr Drug Dosing 43.6 ml/min Est GFR ( Amer) 51.7 Est GFR (Non-Af Amer) 44.6 BUN/Creatinine Ratio 22.5 H (10-20) Glucose 96 (70-99) mg/dl Lactate 1.5 (0.4-2.0) mmol/L Calcium 8.0 L (8.5-10.1) mg/dl Phosphorus (2.5-4.9) mg/dl Magnesium (1.8-2.4) mg/dl Iron (35-175) mcg/dl TIBC (250-450) mcg/dl Transferrin (200-360) mg/dl Ferritin (8-388) ng/ml Troponin I 0.035 (0-0.045) ng/ml Urine Color Dark Yellow Urine Appearance Clear (Clear) Urine pH 5.0 (4.5-7.5) Ur Specific [place] 1.027 (1.000-1.030) Urine Protein 1+ H (Negative) Urine Glucose (UA) Negative (Negative) Urine Ketones Negative (Negative) Urine Blood Negative (Negative) Urine Nitrite Negative (Negative) Urine Bilirubin Negative (Negative) Urine Urobilinogen Negative (Negative) Ur Leukocyte Esterase 1+ H (Negative) Urine WBC (Auto) 10-30 H (0-5) /hpf Urine RBC (Auto) 0-4 (0-4) /hpf U Hyaline Cast (Auto) 5-10 H (0-5) /lpf U Epithel Cells (Auto) 20-30 H (0-5) /lpf Urine Bacteria (Auto) 1+ H (Negative) Nasal Screen MRSA (PCR) (Negative) Lyme Disease IgG Ab (Negative) Lyme Disease IgM Ab (Negative) 10/03/20 Range/Units 10:12 WBC (4.8-10.8) K/uL RBC (4.7-6.1) M/uL Hgb (14.0-18.0) g/dL Hct (42-52) % MCV (80-100) fL MCH (25-34) pg MCHC (32-36) g/dL RDW Std Deviation (36.4-46.3) fL RDW Coeff of Dante (11.5-14.5) % Plt Count (130-400) K/uL MPV (7.4-10.4) fL Peripher Smr Path Cons APTT (21.0-31.0) Seconds PTT Ratio Sodium (136-145) mmol/L Potassium (3.5-5.1) mmol/L Chloride (98-107) mmol/L Carbon Dioxide (21-32) mmol/L Anion Gap (3-11) BUN (7-18) mg/dl Creatinine (0.6-1.4) mg/dl Est Cr Clr Drug Dosing ml/min Est GFR ( Amer) Est GFR (Non-Af Amer) BUN/Creatinine Ratio (10-20) Glucose (70-99) mg/dl Lactate (0.4-2.0) mmol/L Calcium (8.5-10.1) mg/dl Phosphorus (2.5-4.9) mg/dl Magnesium (1.8-2.4) mg/dl Iron (35-175) mcg/dl TIBC (250-450) mcg/dl Transferrin (200-360) mg/dl Ferritin (8-388) ng/ml Troponin I (0-0.045) ng/ml Urine Color Urine Appearance (Clear) Urine pH (4.5-7.5) Ur Specific [place] (1.000-1.030) Urine Protein (Negative) Urine Glucose (UA) (Negative) Urine Ketones (Negative) Urine Blood (Negative) Urine Nitrite (Negative) Urine Bilirubin (Negative) Urine Urobilinogen (Negative) Ur Leukocyte Esterase (Negative) Urine WBC (Auto) (0-5) /hpf Urine RBC (Auto) (0-4) /hpf U Hyaline Cast (Auto) (0-5) /lpf U Epithel Cells (Auto) (0-5) /lpf Urine Bacteria (Auto) (Negative) Nasal Screen MRSA (PCR) (Negative) Lyme Disease IgG Ab Negative (Negative) Lyme Disease IgM Ab Negative (Negative) Coding Level of Care Code 32833 Subseq Hosp Care Lvl 3 Diagnoses Cardiogenic shock R57.0 CHF (congestive heart failure) I50.43 Heart failure chronicity: acute on chronic Heart failure type: combined systolic and diastolic Non-compliance Z91.19 COPD (chronic obstructive pulmonary disease) J44.9 COPD type: unspecified COPD Chronic cutaneous venous stasis ulcer I83.009; L97.909 Medical non-compliance Z91.19 Acute on chronic systolic (congestive) heart failure I50.23 Scrotal edema N50.89 Elevated troponin I measurement R79.89 Pleural effusion J90 History of DVT (deep vein thrombosis) Z86.718 Schizophrenia F20.9 Schizophrenia type: unspecified Anemia D64.9 Anemia type: unspecified type History of testicular cancer Z85.47 History of DVT of lower extremity Z86.718 Hypothyroidism E03.9 Hypothyroidism type: unspecified Homeless single person Z59.0 (1) CHF (congestive heart failure) Heart failure chronicity: acute on chronic Heart failure type: combined systolic and diastolic Qualified Code(s): I50.43 - Acute on chronic combined systolic (congestive) and diastolic (congestive) heart failure (2) COPD (chronic obstructive pulmonary disease) COPD type: unspecified COPD Qualified Code(s): J44.9 - Chronic obstructive pulmonary disease, unspecified (3) Schizophrenia Schizophrenia type: unspecified Qualified Code(s): F20.9 - Schizophrenia, unspecified (4) Anemia Anemia type: unspecified type Qualified Code(s): D64.9 - Anemia, unspecified (5) Hypothyroidism Hypothyroidism type: unspecified Qualified Code(s): E03.9 - Hypothyroidism, unspecified
--- NOTE | 2020-10-04 13:38 | Nephrology Consultation ---
Date of Consultation October 04, 2020 Assessment & Plan (1) Acute kidney failure: baseline creatinine 1.0-1.2; presented at 1.7 on 10/01 and received IV contrast same day; also diuretics resumed same day. multifactorial nonoliguric LAUREN >> cardiorenal on presentation; then he had iV contrast and now resumption of obligate diuretics. chemistries acceptable; remains volume overloaded -daily bmp -cont current diuretics Present on Admission?: Yes (2) Acute on chronic systolic (congestive) heart failure: with other complex cardiac issues; i/o have been incomplete this admission -cont diuretics >note he's not currently on fluid or sodium limits or standing wts and may need them Present on Admission?: Yes (3) Noncompliance with medications: this is the root of many of his clinical issues; per primary service; challenging case Present on Admission?: Yes History of Present Illness Reason for Consultation: fluid overload, LAUREN, hypotension Requesting Physician: Dr Britt Attending Physician: Arnold Britt, History of Present Illness 70 y/o M whom I'm asked to see for volume OL, LAUREN, hypotension was admitted here on 10/01 with acute on chronic systolic HF after presenting with worsening exertional dyspnea, generalized weakness, intermittent chest pain. Past medical history includes ischemic cardiomyopathy (EF of 15% to 20%), severe mitral r egurgitation, CAD status post stent, pAF, hypertension, chronic lymphedema, chronic anemia, paranoid schizophrenia, past DVT, history of testicular cancer status post surgery and chemotherapy, past tobacco abuse, hypothyroidism, history of chronic medication noncompliance, and chronic lower extremity wounds. Pt w/ frequent admissions here for volum OL > last one in July and d/c with lasix 40 mg po daily and spironolcatone 12.5 mg daily; however he stopped all of his medications since that d/c which he frequently does d/t paranoia about taking "bad medication." his previous outpt medications were resumed for his multiple medical conditions on admission and wounds on his legs cultured. Vishnu mccarthy called on 10/03 and pt moved to ICU for hypotension, bradycardia; he had a transient pressor requirement yesterday and HR to 50s. he was stabilized and is improving; palliative care c/s placed regarding goals. of care. Baseline creatinine 1.0-1.2 as recently as Sep 30, 2020; presenting creatinine 1.7; currently plateau'd at 1.6. He is currently on lasix 80 mg po bid17 and spironolactone 12.5 mg daily. Allergies Allergy/AdvReac Type Severity Reaction Status Date / Time horse dander Allergy Unknown Unknown Verified 10/01/20 00:22 tetanus toxoid, adsorbed Allergy Unknown Unknown Verified 10/01/20 00:22 Home Medications Home Medications Medication Instructions Recorded Confirmed Type No Known Home Medications 07/28/20 10/01/20 History Patient History Medical History CAD (coronary artery disease) Cholecystitis, acute Chronic systolic CHF (congestive heart failure) History of DVT (deep vein thrombosis) History of pancreatitis History of testicular cancer History of tobacco abuse Homelessness HTN (hypertension) Hypertension Hyperthyroidism Ischemic cardiomyopathy Lymphedema of right lower extremity Mitral regurgitation Pleural effusion Schizophrenia STEMI (ST elevation myocardial infarction) Tricuspid regurgitation Surgical History Hx of heart artery stent Status post cardiac catheterization Family History Other Unknown family medical history Social History Smoking Status: Former smoker Number of Years Since Quit: 10; Second Hand Exposure: No; Do You Dip or Chew Tobacco: No; Tobacco Cessation Education Requested by Patient: No Hx Alcohol Use: No Hx Substance Use: No Preferred Language: Lithuanian Communication Ability: Effective Broommaker Required: No Beliefs That Will Affect Care: None marital status: Single Current Living Situation: Alone Current Living Situation Comment: [facility] How many Children do You have: 0 Other Information That Helps Us Care for You: No Feels Safe at Home: Yes Assistive Devices: None Review of Systems Review of Systems: Unobtainable due to mental health condition pt struggles w/ ros >> he states he has pain but cannot say where/how bad/what type despite several questions Cardiovascular: + edema (stable chronic) Genitourinary: + problem reported (no voiding concerns) Physical Exam Constitutional: well developed and + cachectic; not in distress (on RA) Eyes: EOM intact bilaterally ENMT: Ears: no external ear abnormality Nose: no external nose abnormality Mouth: + dry oral mucous membranes very hoarse voice Neck: no nuchal rigidity Respiratory: normal respiratory effort Auscultation: + diminished lung sounds and + crackles Cardiovascular: Rate/Rhythm: regular rate and regular rhythm Vessels: posterior tibial pulses present Gastrointestinal (Abdomen): Inspection/Auscultation: normal bowel sounds Percussion/Palpation: abdomen soft; abdomen nontender Musculoskeletal: Extremities: strength 5/5 throughout, + cyanosis (BL hands) and + lower leg abnormality (RLE indurated edema) Skin: no rashes, warm and dry + wound (RLE covered) Neurologic: king, fluent speech, no tremor Psychiatric: Orientation: alert and oriented x 3 Affect: + flat affect Mood: + anxious mood Thought Process: + tangential thought process Results & Data ([facility]) Vital Signs (Past 12 Hours) Vital Signs Temp Pulse Resp BP Pulse Ox 10/04/20 12:25 66 14 114/73 99 10/04/20 12:00 36.5 C 60 12 97 10/04/20 11:25 68 24 122/78 95 10/04/20 11:00 64 14 96 10/04/20 10:00 63 14 97 10/04/20 09:25 61 12 96/65 L 95 10/04/20 09:00 62 12 98 10/04/20 08:30 63 12 99/59 L 99 10/04/20 08:00 36.4 C L 70 15 93 10/04/20 07:24 90 19 129/98 10/04/20 07:00 60 12 92 10/04/20 05:00 60 13 97 10/04/20 04:25 63 13 107/70 10/04/20 04:00 61 20 10/04/20 03:24 59 L 11 L 90/61 L 10/04/20 03:00 62 10 L 99 10/04/20 02:24 59 L 7 L 102/65 96 10/04/20 02:00 71 29 H 82 L 10/04/20 01:25 65 15 102/57 L 95 Laboratory Results 10/04/20 01:37 10/04/20 01:37 UA clear dark yellow urine SG 1027; 1+ protein, LE, bacter; 10-30 WBC; 20-30 epithelial cells; all al indices negative wound, blood urine cxs ngtd (though urine reincubating d/t pinpoint growth) Diagnostic Findings CTA 10/01 1. No evidence of acute pulmonary embolism. Suboptimal evaluation of the lower lobe pulmonary arteries. 2. Cardiomegaly and coronary artery calcifications 3. Evidence of elevated right heart pressures 4. [id number] right pleural effusion 5. Right middle and lower lobe atelectatic changes 6.. Upper abdominal ascites 7. Azygous vein dilatation CXR yesterday 1. Right subclavian central venous catheter terminates at the SVC. 2. No pneumothorax. 3. Redemonstration of the small to moderate right pleural effusion and right basilar densities. Echocardiogram 04/2020 -LVEF 15-20% with akinesis of the inferolateral, basal anterolateral, base to mid inferior, and basal inferoseptal wall segments; otherwise severe global hypokinesis. - Normal right ventricular size with moderately reduced systolic function. - Moderate biatrial dilation.
--- NOTE | 2020-10-04 14:33 | XCELERA ---
[id number] \\[email or web address]\[id number]
[2020-10-04 14:55] LABS: Partial Thromboplastin Ratio 2.5
[2020-10-04 14:57] LABS: Partial Thromboplastin Time 69.1 Seconds (21.0-31.0)
[2020-10-04] MEDS: OLANZapine 5 MG TABLET PO SCH (21:07)
[2020-10-04 21:31] LABS: Partial Thromboplastin Ratio 2.2
[2020-10-04 22:18] LABS: Partial Thromboplastin Time 60.1 Seconds (21.0-31.0)
[2020-10-05 05:35] LABS: BUN Creatinine Ratio 26.6 (10-20); Creatinine Clr Calc Pharmacy 45.3 ml/min; Est GFR (African American) 54.2; Est GFR (Non-African American) 46.8; Magnesium 2.1 mg/dl (1.8-2.4); Phosphorus 3.6 mg/dl (2.5-4.9); Potassium 4.2 mmol/L (3.5-5.1)
--- NOTE | 2020-10-05 06:51 | Hospitalist Progress Note ---
Date of Service October 05, 2020 Assessment & Plan (1) Non-compliance: ASSESSMENT AND PLAN: This is a 70-year-old male who is noncompliant with medication, who presented with shortness of breath. 1. Shortness of breath:Acute on chronic systolic CHF CTA of the chest unremarkable except for mild right pleural effusion. He has a history of congestive heart failure with EF of 15% to 20%. Supposed to be on Lasix and Aldactone, noncompliant with the medications. In the ER, he was given IV Lasix 40. Cards on case 2. History of atrial fibrillation, rate is under control, noncompliant with medication. Restarted Toprol-XL. Also is on aspirin and Plavix. 3. History of chronic right leg lymphedema and chronic wounds. Recently was treated with Cipro and Amoxicillin for his pseudomonas and enterococcus. We will reculture him as there appears to be some drainage. Wound care. 4. Hypothyroidism. Levothyroxine. 5. History of paranoid schizophrenia. Risperidone and Olanzapine. 6. Deep venous thrombosis prophylaxis with Lovenox. 7. History of prolonged QT. Avoid QT prolonging drugs and follow the repeat EKG. 8. Disposition, Transfer to PCU. Code status, level 1 full code. Social service to help with discharge planning. Cr rising, Renal on case, off Levofed, BP 107 Systolic on 10/03 at At 0840 I was called by my partner and told that a code purple was called on my patient. When I arrived the patient was somnolent, his BP was in the low 80s and he had just gotten his 500 ml bolus I ordered. His hands and feet were profoundly cyanotic. I had saline running wide open, but his BP was not coming up and he was bradycardic. I originally transferred him to PCU, but since he needed pressors and closer monitoring, I discussed his care c ICU attending and moved him there. While there a central line was placed and he was started on Levofed. He is stabilized and in the ICU. His code status was discussed at length by the ICU Dr and he wants to remain a full code. 10/05 transferred to PCU, Continue Heparin gtt, PT/OT Labs Checked ROS-No Headache, No Visual Changes, No Nausea, No Vomiting, No Fever, No Chills, No Neck Pain or Stiffness, No Chest Pain, No Palpitations, No SOB, No LOCK, No Cough, No Sputum, No Wheezing, No Abdominal Pain, No Diarrhea, No Hematemesis, No Hemoptysis, No Unexpected Weight Loss, No Flank pain, No Melena, No Hematochezia, No Frequency, No Urgency, No Burning, No Hematuria, No Rashes, No Diaphoresis. Appetite is Normal Physical Exam Gen-AAO x 3, NAD, Afebrile, thin, looks a lot better today Head-NCAT, EOMI, PERRLA, Anicteric Sclera, No Posterior Pharyngeal Erythema Neck-Supple, No JVD, No Thyromegaly, No Masses, No LAD, No Bruits Lungs-Clear to Auscultation Bilaterally, No Rales, No Rhonchi, No Wheezing, No Crepitus Chest-Irreg, No S4, +S1, +S2, No S3, No Murmurs, No Rubs, No Gallops, +Ectopy Abdomen-Soft, Bowel Sounds Present, Non Tender, Non Distended, No Hepatomegaly, No Splenomegaly, No Palpable Masses, No Rebound, No Rigidity, No Guarding Musculoskeletal-Full Range of Motion Bilaterally, No CVAT Extremities-RLE Lymphedema, c scaly stasis Dermatitis, BLE cyanosis-Back to baseline Nuero-Cranial Nerves II-XII grossly intact, Motor WNL, DTRs WNL, Strength WNL, Non Focal Psych-Normal Mood Admission and Anticipated Discharge Date Admission Date: October 02, 2020 Results & Data Results & Data ([facility]) Vital Signs (Past 12 Hours) Vital Signs Pulse Resp BP Pulse Ox 10/05/20 06:00 65 4 L 95 10/05/20 05:25 66 0 L 99/63 L 99 10/05/20 05:00 61 8 L 96 10/05/20 04:25 74 16 95/65 L 97 10/05/20 04:00 66 24 120/47 L 93 10/05/20 03:25 78 15 132/92 93 10/05/20 03:00 69 6 L 97 10/05/20 02:25 74 16 106/70 97 10/05/20 02:00 67 18 96 10/05/20 01:00 82 23 100 10/05/20 00:26 68 4 L 114/83 98 10/05/20 00:00 91 H 15 136/55 L 100 10/04/20 23:25 77 13 89/65 L 96 10/04/20 23:00 74 3 L 99 10/04/20 22:25 71 11 L 88/63 L 100 10/04/20 22:00 82 19 97 10/04/20 21:25 76 20 114/77 98 10/04/20 21:00 69 11 L 94 10/04/20 20:25 84 15 120/67 99 10/04/20 20:00 85 23 193/75 H 94 10/04/20 19:25 74 9 L 120/79 97 10/04/20 19:00 85 15 97
[2020-10-05] MEDS: UMECLIDINIUM BROMIDE 62.5MCG/BLISTER 7 PUFFS/INHALER INH SCH (08:22)
[2020-10-05] MEDS: ENOXAPARIN INJ 40 MG/0.4 ML SYR SQ SCH ×2 (08:22→08:33)
[2020-10-05] MEDS: risperiDONE 0.5 MG TABLET PO SCH ×2 (08:23→20:56)
[2020-10-05] MEDS: ASPIRIN 81 MG ECTAB PO SCH (08:23)
[2020-10-05] MEDS: SPIRONOLACTONE 12.5 MG TAB PO SCH (08:23)
[2020-10-05] MEDS: LEVOTHYROXINE SODIUM 50 MCG TABLET PO SCH (08:23)
[2020-10-05] MEDS: CLOPIDOGREL BISULFATE 75 MG TAB PO SCH (08:23)
[2020-10-05] MEDS: ATORVASTATIN 40 MG TAB PO SCH (08:24)
[2020-10-05] MEDS: ICU PROTOCOL FOR HYPERGLYCEMIA SCH (08:24)
[2020-10-05] MEDS: PANTOprazole 40 MG TAB PO SCH (08:24)
[2020-10-05] MEDS: FUROSEMIDE 80 MG TAB PO SCH ×2 (08:25→16:34)
--- NOTE | 2020-10-05 09:16 | Cardiology Progress Note ---
Date of Service October 05, 2020 Assessment & Plan (1) Decompensated heart failure: Improved. Difficult to assess subjectively since he has not been very active since his admission. However, his lungs sound good. He had a robust diuresis yesterday. He does have an element of right ventricular failure in this likely accounts for significant portion of his edema and documented ascites. I think we need to be cautious with aggressive diuresis as he likely has a propensity towards intravascular depletion and lower blood pressures. Aggressive diuresis certainly complicated by his poor ventricular function and effective cardial renal syndrome. I think his diuretic could be reduced to 80 mg of oral Lasix daily. Once he is more hemodynamically stable we could consider re-initiation of metoprolol succinate 25 mg daily. Ideally he would be on Jt inhibition as well, but will need to monitor his renal function and blood pressure closely before considering initiation. His left ventricular systolic function is severely reduced. He has an element of right ventricular dysfunction as well. His noncompliance with medical therapy has hampered our efforts at improvement. I do not believe he is a good candidate for prophylactic ICD despite the degree of his ischemic ca rdiomyopathy given his noncompliance and mental health issues. (2) A-fib: No clinical recurrence. Frequent atrial ectopy. He has not been complaining of any palpitations. He was never started on anticoagulation due to his history of medical noncompliance. (3) Ischemic cardiomyopathy: I do not believe he suffered any additional ischemic events. Echocardiogram reviewed. (4) Mitral regurgitation: No significant murmur on examination. Mild mitral regurgitation on e chocardiogram performed yesterday. (5) CAD (coronary artery disease): He underwent PCI to an obtuse marginal in May of 2019. He did not describe any symptoms of chest pain currently. We have been maintaining him on dual anti-platelet therapy and high-dose atorvastatin. (6) Noncompliance: Generally compliant while in the hospital. This seems to be the biggest difficulty with his outpatient (And occasionally inpatient) management. Admission and Anticipated Discharge Date Admission Date: October 02, 2020 Subjective This morning the patient claims to be feeling about the same. He was unable to determine if he feels better since admission or worse. To his credit, he has not been very ambulatory since being in the intensive care unit. No subjective improvement in his breathing, but no significant difficulty at rest. He had some difficulty remembering the events associated with his transferred to the intensive care unit. He did not remember feeling any specific symptoms around that time. He specifically denies dizziness or breathing difficulty. Review of Systems Review of Systems: Per HPI Physical Exam Physical Exam: The patient is alert and oriented. Mood and affect appeared normal this morning. He answered all questions appropriately. HEENT: Pupils are equal and reactive to light and accommodation. Extraocular movements are intact. The sclerae are anicteric. Very poor dentition Neuro: Cranial nerves intact Neck: Patient's neck is supple. right central venous line in place.He has palpable carotid pulses bilaterally without bruits on auscultation. The thyroid is not enlarged. Lungs: Perhaps some very mildly reduced breath sounds in the right base. No rales. No expiratory wheezing. Normal respiratory effort. Cardiac: Heart demonstrates a regular rate and rhythm With occasional ectopy. Normal S1 and S2. No murmurs on examination. Pulses: palpable left radial pulse. Right radial arterial Catheter currently being removed. Abdomen: He does have pitting edema in the soft tissues of the right lower quadrant. Extremities: Blue discoloration of the finger tips and some of the palms. There is no clubbing. He has chronic trophic and edematous changes in the right lower extremity. moderate lower extremity edema. Right lower extremity is wrapped to the knee. Skin: I did not appreciate any rashes on examination today. He did have the trophic changes and dry skin as mentioned on his right lower extremity. Results & Data ([facility]) Vital Signs (Past 12 Hours) Vital Signs Temp Pulse Resp BP Pulse Ox 10/05/20 08:00 36.5 C 69 16 100 10/05/20 07:25 69 21 96/62 L 10/05/20 06:00 65 4 L 95 10/05/20 05:25 66 0 L 99/63 L 99 10/05/20 05:00 61 8 L 96 10/05/20 04:25 74 16 95/65 L 97 10/05/20 04:00 66 24 120/47 L 93 10/05/20 03:25 78 15 132/92 93 10/05/20 03:00 69 6 L 97 10/05/20 02:25 74 16 106/70 97 10/05/20 02:00 67 18 96 10/05/20 01:00 82 23 100 10/05/20 00:26 68 4 L 114/83 98 10/05/20 00:00 91 H 15 136/55 L 100 10/04/20 23:25 77 13 89/65 L 96 10/04/20 23:00 74 3 L 99 10/04/20 22:25 71 11 L 88/63 L 100 10/04/20 22:00 82 19 97 10/04/20 21:25 76 20 114/77 98 Laboratory Results Abnormal Lab Results 10/04/20 10/04/20 10/04/20 08:45 14:25 16:02 APTT 69.1 H* PTT Ratio 2.5 Sodium Potassium Chloride Carbon Dioxide Anion Gap BUN Creatinine Est Cr Clr Drug Dosing Est GFR ( Amer) Est GFR (Non-Af Amer) BUN/Creatinine Ratio Glucose POC Glucose 85 Calcium Phosphorus Magnesium Nasal Screen MRSA (PCR) Negative 10/04/20 10/05/20 21:04 04:39 APTT 60.1 H* PTT Ratio 2.2 Sodium 141 Potassium 4.2 D Chloride 112 H Carbon Dioxide 22 Anion Gap 7.0 BUN 40 H Creatinine 1.51 H Est Cr Clr Drug Dosing 45.3 Est GFR ( Amer) 54.2 Est GFR (Non-Af Amer) 46.8 BUN/Creatinine Ratio 26.6 H Glucose 83 POC Glucose Calcium 8.0 L Phosphorus 3.6 Magnesium 2.1 Nasal Screen MRSA (PCR) Diagnostic Findings Echocardiogram performed yesterday reveals severely reduced LV systolic function with ejection fraction around 20%. Global hypokinesis with inferior akinesis. Mild mitral regurgitation. Mild right ventricular dilation reduced right ventricular function. ECG Additional Comments: Telemetry demonstrated periods of atrial bigeminy and atrial ectopy. Rare ventricular ectopy. PG Care Time/CCT Total # of Minutes Spent Total Time Spent with Patient: Total time spent is greater than 50% in coordination of care (as documented) at patient's floor/unit and/or counseling patient: Coding Level of Care Code 59578 Subseq Hosp Care Lvl 3 Diagnoses Decompensated heart failure I50.9 A-fib I48.91 Atrial fibrillation type: unspecified Ischemic cardiomyopathy I25.5 Mitral regurgitation I34.0 CAD (coronary artery disease) I25.10 Noncompliance Z91.19 (1) A-fib Atrial fibrillation type: unspecified Qualified Code(s): I48.91 - Unspecified atrial fibrillation
--- NOTE | 2020-10-05 09:21 | Palliative Care Consultation ---
Date of Consultation October 05, 2020 Assessment & Plan (1) Palliative care encounter: This is a 70-year-old male known to the Palliative Care Service from a previous admission in October 2019. He presented to the hospital this time with complaints of shortness of breath on exertion. He has had frequent hospitalizations over the past year. 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 His hospitalizations are typically related to his heart condition. The patient historically has been homeless, but is now reportedly living in an apartment. The patient has been evaluated by psychiatry numerous times for medication non-compliance and his schizophrenia. The military source operations specialist has discussed goals of care with this patient during this, and previous, hospitalizations. He has consistently wanted to remain full code with aggressive treatment measures. Due to the extent of his heart condition, palliative care was re-consulted to discuss goals of care. I met with the patient in room 107. He has since been transitioned to room 238- 1. The patient was awake, alert, and oriented in no apparent distress. The patient agrees that he has returned to his baseline status. The patient is AAOx3. We discussed his hospitalization and also the importance of taking his medications, which he agrees. The patient is a full code and we discussed this in detail. He would like to remain a full code at this time. I discussed the importance of him having a d ecision maker appointed. He said that he does have a brother, but does not want him involved in making decisions for him. He has not been part of his life for some time now. He did say that he lives at [facility], and is provided transportation, food, etc through [facility]. He mentioned Nancy and Ale being two people who he would like to be made aware and see if they would make decisions for him if he is unable. He said they are case workers. In speaking with Loyda BELLA in case management, Nabeel is a name listed through [employer] too. I called her and left a message to discuss ([phone]). Palliative care will follow and complete communication with [facility]. Thank you for re-involving this gentleman with our service. (2) CHF (congestive heart failure): Heart failure chronicity: acute on chronic Heart failure type: combined systolic and diastolic Qualified Code(s): I50.43 - Acute on chronic combined systolic (congestive) and diastolic (congestive) heart failure (3) COPD (chronic obstructive pulmonary disease): COPD type: unspecified COPD Qualified Code(s): J44.9 - Chronic obstructive pulmonary disease, unspecified (4) Schizophrenia: Patient has been evaluated by Psychiatry on previous hospitalizations Patient takes Zyprexa 0.5 mg PO Q HS and Risperidone 0.5 mg po BID Patient has had known non-compliance Schizophrenia type: unspecified Qualified Code(s): F20.9 - Schizophrenia, unspecified (5) Dyspnea: Dyspnea type: dyspnea on exertion Qualified Code(s): R06.00 - Dyspnea, unspecified (6) Medical non-compliance: Patient has historically been non-compliant in the past, does recognize the importance of outpatient follow up and medication compliance History of Present Illness Reason for Consultation: Goals of Care Requesting Physician: Dr. Taylor Attending Physician: Arnold Britt DO History of Present Illness This is a 70-year-old male known to the Palliative Care Service from a previous admission in October 2019. He presented to the hospital this time with complaints of shortness of breath on exertion. He has had frequent hospital izations over the past year. 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 His hospitalizations are typically related to his heart condition. The patient historically has been homeless, but is now reportedly living in an apartment. The patient has been evaluated by psychiatry numerous times for medication non-compliance and his schizophrenia. The military source operations specialist has discussed goals of care with this patient during this, and previous, hospitalizations. He has consistently wanted to remain full code with aggressive treatment measures. Due to the extent of his heart condition, palliative care was re-consulted to discuss goals of care. Please see A/P for further details. Thank you kindly for involving the palliative care consultation service with thi s individual. Allergies Allergy/AdvReac Type Severity Reaction Status Date / Time horse dander Allergy Unknown Unknown Verified 10/01/20 00:22 tetanus toxoid, adsorbed Allergy Unknown Unknown Verified 10/01/20 00:22 Home Medications Medication Instructions Recorded Confirmed Type No Known Home Medications 07/28/20 10/01/20 History Patient History Medical History (Updated 10/05/20 @ 09:20 by IAIN Etienne) CAD (coronary artery disease) Cholecystitis, acute Chronic systolic CHF (congestive heart failure) History of DVT (deep vein thrombosis) History of pancreatitis History of testicular cancer History of tobacco abuse Homelessness HTN (hypertension) Hypertension Hyperthyroidism Ischemic cardiomyopathy Lymphedema of right lower extremity Mitral regurgitation Palliative care encounter Pleural effusion Schizophrenia STEMI (ST elevation myocardial infarction) Tricuspid regurgitation Surgical History Hx of heart artery stent Status post cardiac catheterization Family History Other Unknown family medical history Social History Smoking Status: Former smoker Number of Years Since Quit: 10; Second Hand Exposure: No; Hx Alcohol Use: No Hx Substance Use: No Preferred Language: French Communication Ability: Effective Line Servicer Required: No Beliefs That Will Affect Care: None marital status: Single Current Living Situation: Alone Current Living Situation Comment: [facility] How many Children do You have: 0 Feels Safe at Home: Yes Assistive Devices: None Review of Systems Review of Systems: [place] Symptom Assessment Scale Pain 0/3 Dyspnea 1/3 Anxiety 3/3 Depression2/3 Drowsiness 2/3 Nausea 1/3 Anorexia 2/3 Palliative Performance Score 30% Physical Exam Constitutional: + frail appearing, + disheveled, cooperative and comfortable; + not well groomed Respiratory: normal respiratory effort and + cough Auscultation: + diminished lung sounds Cardiovascular: Rate/Rhythm: regular rate and regular rhythm Heart Sounds: normal S1 and normal S2 Extremities: normal capillary refill and + edema Gastrointestinal (Abdomen): normal bowel sounds, soft, nontender, no hepatosplenomegaly Skin: + excoriations and + pallor Trauma: + abrasion Psychiatric: Orientation: alert and oriented x 3 Thought Process: + flight of ideas Thought Content: + worthlessness Suicidal Thoughts: denies smith icidal thoughts Hallucinations: + auditory hallucinations Insight: + limited insight Judgement: + limited judgement Genitourinary: indwelling bermudez catheter Results & Data ([facility]) Vital Signs (Past 12 Hours) Vital Signs Temp Pulse Resp BP Pulse Ox 10/05/20 08:00 36.5 C 69 16 100 10/05/20 07:25 69 21 96/62 L 10/05/20 06:00 65 4 L 95 10/05/20 05:25 66 0 L 99/63 L 99 10/05/20 05:00 61 8 L 96 10/05/20 04:25 74 16 95/65 L 97 10/05/20 04:00 66 24 120/47 L 93 10/05/20 03:25 78 15 132/92 93 10/05/20 03:00 69 6 L 97 10/05/20 02:25 74 16 106/70 97 10/05/20 02:00 67 18 96 10/05/20 01:00 82 23 100 10/05/20 00:26 68 4 L 114/83 98 10/05/20 00:00 91 H 15 136/55 L 100 10/04/20 23:25 77 13 89/65 L 96 10/04/20 23:00 74 3 L 99 10/04/20 22:25 71 11 L 88/63 L 100 10/04/20 22:00 82 19 97 10/04/20 21:25 76 20 114/77 98 PG Care Time/CCT Total # of Minutes Spent Total Time Spent with Patient: Total time spent is greater than 50% in coordina tion of care (as documented) at patient's floor/unit and/or counseling patient: 70 Coding Level of Care Code 94424 Inpt Consult Level 3 Diagnoses Palliative care encounter Z51.5 CHF (congestive heart failure) I50.43 Heart failure chronicity: acute on chronic Heart failure type: combined systolic and diastolic COPD (chronic obstructive pulmonary disease) J44.9 COPD type: unspecified COPD Schizophrenia F20.9 Schizophrenia type: unspecified Dyspnea R06.00 Dyspnea type: dyspnea on exertion Medical non-compliance Z91.19 Time Spent (min) 70 Time Spent Midlevel Total time spent 70 minutes with > 50% of that time spent assessing the patient, discussing goals of care and collaborating with IDT
[2020-10-05] MEDS: OLANZapine 5 MG TABLET PO SCH (20:56)
[2020-10-06] MEDS: LEVOTHYROXINE SODIUM 50 MCG TABLET PO SCH (06:28)
[2020-10-06 07:27] LABS: Hematocrit (blood only) 31.3 % (42-52); Hemoglobin 9.6 g/dL (14.0-18.0); Mean Corpuscular Hemoglobin 23.8 pg (25-34); Mean Corpuscular Hgb Conc 30.7 g/dL (32-36); Mean Corpuscular Volume 77.7 fL (80-100); Mean Platelet Volume 9.8 fL (7.4-10.4); Platelet Count 141 K/uL (130-400); RDW Coefficient of Variation 21.8 % (11.5-14.5); RDW Standard Deviation 62.4 fL (36.4-46.3); Red Blood Count 4.03 M/uL (4.7-6.1); White Blood Count 5.05 K/uL (4.8-10.8)
[2020-10-06] MEDS: risperiDONE 0.5 MG TABLET PO SCH ×3 (08:18→21:41)
[2020-10-06] MEDS: PANTOprazole 40 MG TAB PO SCH (08:18)
[2020-10-06] MEDS: CLOPIDOGREL BISULFATE 75 MG TAB PO SCH (08:18)
[2020-10-06] MEDS: ASPIRIN 81 MG ECTAB PO SCH ×2 (08:19→08:22)
[2020-10-06] MEDS: ATORVASTATIN 40 MG TAB PO SCH ×2 (08:19→08:22)
[2020-10-06 08:23] LABS: Albumin Globulin Ratio 0.7 (0.9-2); Albumin Level 2.7 gm/dl (3.4-5.0); BUN Creatinine Ratio 26.5 (10-20); Bilirubin,Total 1.6 mg/dl (0.2-1); Calcium 8.3 mg/dl (8.5-10.1); Creatinine Clr Calc Pharmacy 48.2 ml/min; Est GFR (African American) 58.4; Est GFR (Non-African American) 50.4; Globulin 3.7 gm/dl (2.5-4.0); Potassium 3.6 mmol/L (3.5-5.1); Total Protein 6.4 gm/dl (6.4-8.2)
[2020-10-06] MEDS: UMECLIDINIUM BROMIDE 62.5MCG/BLISTER 7 PUFFS/INHALER INH SCH (08:23)
[2020-10-06] MEDS: FUROSEMIDE 80 MG TAB PO SCH ×2 (09:20→09:45)
[2020-10-06] MEDS: SPIRONOLACTONE 12.5 MG TAB PO SCH (09:45)
--- NOTE | 2020-10-06 10:01 | Cardiology Progress Note ---
Date of Service October 06, 2020 Assessment & Plan (1) Decompensated heart failure: overall he seems improved. His volume status appears improved. He had a very robust diuresis again yesterday. Fortunately, his renal function has remained stable. However, I think we can certainly reduce his dose of diuretic to 80 milligrams daily. His lung examination is very benign. His edema is improved. Likely get a better assessment of his functional status with ambulation today. Will continue his daily dose of Lasix. He will continue on spironolactone. Hopefully will have some improvement in his blood pressures over the next few days and can reinstitute his beta blockade. . (2) A-fib: His rhythm is more irregular today. Review of the rhythm on telemetry did not reveal any acute conversion to atrial fibrillation but it is very diffi cult to determine if this is sinus with frequent PACs or atrial fibrillation. I ordered an EKG. However, given the normal heart rates and his inability to take long-term anticoagulation, whether he is in sinus or atrial fibrillation has little clinical relevance at this point. (3) Ischemic cardiomyopathy: I do not believe he suffered any additional ischemic events. Echocardiogram reviewed. (4) Mitral regurgitation: No significant murmur on examination. Mild mitral regurgitation on echocardiogram performed yesterday. (5) CAD (coronary artery disease): He underwent PCI to an obtuse marginal in May of 2019. He did not describe any symptoms of chest pain currently. We have been maintaining him on dual anti-platelet therapy and high-dose atorvastatin. I think we can stop his Plavix. There may be some benefit with respect to stroke risk reduction on dual anti-platelet therapy, but this is often at the expense of increased bleeding. He does have an iron deficiency anemia and would likely better be served by aspirin alone. (6) Noncompliance: Generally compliant while in the hospital. This seems to be the biggest difficulty with his outpatient (And occasionally inpatient) management. Admission and Anticipated Discharge Date Admission Date: October 02, 2020 Subjective This morning the patient had no specific complaints. He admits to not being very ambulatory yesterday. He has not done much activity since he has been in the hospital. Most of his symptoms of dyspnea. Occur with activity and he was encouraged to be more active today. He denied breathing difficulty at rest. No symptoms of pain. No abdominal complaints no GI complaints. Review of Systems Review of Systems: Per HPI Physical Exam Physical Exam: The patient is alert and oriented. Mood and affect appeared normal this morning. He answered all questions appropriately. he did not report any specific hallucinations or paranoid delusions today. HEENT: Pupils are equal and reactive to light and accommodation. Extraocular movements are intact. The sclerae are anicteric. Very poor dentition Neuro: Cranial nerves intact Neck: Patient's neck is supple. right central venous line in place.He has palpable carotid pulses bilaterally without bruits on auscultation. The thyroid is not enlarged. Lungs: Perhaps some very mildly reduced breath sounds in the right base. No rales. No expiratory wheezing. Normal respiratory effort. Cardiac: Heart demonstrates a regular rate and rhythm With Frequent ectopy. Normal S1 and S2. No murmurs on examination. Pulses: palpable left radial pulse. Right radial arterial Catheter currently being removed. Abdomen: He does have pitting edema in the soft tissues of the right lower quadrant. Extremities: no discoloration or cyanosis on exam today. There is no clubbing. He has chronic trophic and edematous changes in the right lower extremity. Minimal left lower extremity edema. Right lower extremity is wrapped to the knee. Skin: I did not appreciate any rashes on examination today. He did have the trophic changes and dry skin as mentioned on his right lower extremity. Results & Data ([facility]) Vital Signs (Past 12 Hours) Vital Signs Temp Pulse Pulse Resp BP Pulse Ox 10/06/20 09:45 98/50 L 10/06/20 07:05 36.4 C L 71 20 101/60 95 10/06/20 04:02 36.8 C 71 16 101/64 94 10/06/20 00:16 36.9 C 74 14 124/76 97 10/05/20 23:00 86 Laboratory Results Abnormal Lab Results 10/04/20 10/06/20 10/06/20 01:37 07:13 07:13 WBC 5.05 RBC 4.03 L Hgb 9.6 L Hct 31.3 L MCV 77.7 L MCH 23.8 L MCHC 30.7 L RDW Std Deviation 62.4 H RDW Coeff of Dante 21.8 H Plt Count 141 MPV 9.8 Peripher Smr Path Cons Sodium 141 Potassium 3.6 Chloride 106 Carbon Dioxide 27 Anion Gap 8.0 BUN 38 H Creatinine 1.42 H Est Cr Clr Drug Dosing 48.2 Est GFR ( Amer) 58.4 Est GFR (Non-Af Amer) 50.4 BUN/Creatinine Ratio 26.5 H Glucose 87 Calcium 8.3 L Total Bilirubin 1.6 H AST 17 ALT 12 Alkaline Phosphatase 133 H NT-Pro-B Natriuret Pep 3950 H Total Protein 6.4 Albumin 2.7 L Globulin 3.7 Albumin/Globulin Ratio 0.7 L Diagnostic Findings Echocardiogram performed This admission reveals severely reduced LV systolic function with ejection fraction around 20%. Global hypokinesis with inferior akinesis. Mild mitral regurgitation. Mild right ventricular dilation reduced right ventricular function. PG Care Time/CCT Total # of Minutes Spent Total Time Spent with Patient: Total time spent is greater than 50% in coordination of care (as documented) at patient's floor/unit and/or counseling patient: Coding Level of Care Code 59967 Subseq Hosp Care Lvl 2 Diagnoses Decompensated heart failure I50.9 A-fib I48.91 Atrial fibrillation type: unspecified Ischemic cardiomyopathy I25.5 Mitral regurgitation I34.0 CAD (coronary artery disease) I25.10 Noncompliance Z91.19 (1) A-fib Atrial fibrillation type: unspecified Qualified Code(s): I48.91 - Unspecified atrial fibrillation
--- NOTE | 2020-10-06 10:19 | Hospitalist Progress Note ---
Date of Service October 06, 2020 Assessment & Plan (1) Non-compliance: ASSESSMENT AND PLAN: This is a 70-year-old male who is noncompliant with medication, who presented with shortness of breath. 1. Shortness of breath:Acute on chronic systolic CHF CTA of the chest unremarkable except for mild right pleural effusion. He has a history of congestive heart failure with EF of 15% to 20%. Supposed to be on Lasix and Aldactone, noncompliant with the medications. In the ER, he was given IV Lasix 40. Cards on case 2. History of atrial fibrillation, rate is under control, noncompliant with medication. Restarted Toprol-XL. Also is on aspirin and Plavix. 3. History of chronic right leg lymphedema and chronic wounds. Recently was treated with Cipro and Amoxicillin for his pseudomonas and enterococcus. We will reculture him as there appears to be some drainage. Wound care. 4. Hypothyroidism. Levothyroxine. 5. History of paranoid schizophrenia. Risperidone and Olanzapine. 6. Deep venous thrombosis prophylaxis with Lovenox. 7. History of prolonged QT. Avoid QT prolonging drugs and follow the repeat EKG. 8. Disposition, Transfer to PCU. Code status, level 1 full code. Social service to help with discharge planning. Cr rising, Renal on case, off Levofed, BP 107 Systolic on 10/03 at At 0840 I was called by my partner and told that a code purple was called on my patient. When I arrived the patient was somnolent, his BP was in the low 80s and he had just gotten his 500 ml bolus I ordered. His hands and feet were profoundly cyanotic. I had saline running wide open, but his BP was not coming up and he was bradycardic. I originally transferred him to PCU, but since he needed pressors and closer monitoring, I discussed his care c ICU attending and moved him there. While there a central line was placed and he was started on Levofed. He was stabilized in the ICU. His code status was discussed at length by the ICU Dr and he wants to remain a full code. 10/05 transferred to PCU, Continue Heparin gtt, PT/OT 10/06 No improvement from yesterday, still weak, limited activity, Prognosis poor Labs Checked ROS-No Headache, No Visual Changes, No Nausea, No Vomiting, No Fever, No Chills, No Neck Pain or Stiffness, No Chest Pain, No Palpitations, No SOB, No LOCK, No Cough, No Sputum, No Wheezing, No Abdominal Pain, No Diarrhea, No Hematemesis, No Hemoptysis, No Unexpected Weight Loss, No Flank pain, No Melena, No Hematochezia, No Frequency, No Urgency, No Burning, No Hematuria, No Rashes, No Diaphoresis. Appetite is Normal Physical Exam Gen-AAO x 3, NAD, Afebrile, thin, weak Head-NCAT, EOMI, PERRLA, Anicteric Sclera, No Posterior Pharyngeal Erythema Neck-Supple, No JVD, No Thyromegaly, No Masses, No LAD, No Bruits Lungs-Clear to Auscultation Bilaterally, No Rales, No Rhonchi, No Wheezing, No Crepitus Chest-Irreg, No S4, +S1, +S2, No S3, No Murmurs, No Rubs, No Gallops, +Ectopy Abdomen-Soft, Bowel Sounds Present, Non Tender, Non Distended, No Hepatomegaly, No Splenomegaly, No Palpable Masses, No Rebound, No Rigidity, No Guarding Musculoskeletal-Full Range of Motion Bilaterally, No CVAT Extremities-RLE Lymphedema, c scaly stasis Dermatitis, BLE cyanosis-Back to baseline, Hand are cyanotic as well Nuero-Cranial Nerves II-XII grossly intact, Motor WNL, DTRs WNL, Strength WNL, Non Focal Psych-Normal Mood Admission and Anticipated Discharge Date Admission Date: October 02, 2020 Results & Data Results & Data ([facility]) Vital Signs (Past 12 Hours) Vital Signs Temp Pulse Pulse Resp BP Pulse Ox 10/06/20 09:45 98/50 L 10/06/20 07:05 36.4 C L 71 20 101/60 95 10/06/20 04:02 36.8 C 71 16 101/64 94 10/06/20 00:16 36.9 C 74 14 124/76 97 10/05/20 23:00 86
--- NOTE | 2020-10-06 16:58 | Electrocardiogram Report ---
Test Reason : Blood Pressure : / mmHG Vent. Rate : 072 BPM Atrial Rate : 000 BPM P-R Int : 000 ms QRS Dur : 110 ms QT Int : 440 ms P-R-T Axes : 000 048 133 degrees QTc Int : 481 ms Normal sinus rhythm with frequent Premature ventricular complexes in a pattern of bigeminy Minimal voltage criteria for LVH, may be normal variant Nonspecific ST and T wave abnormality Prolonged QT Abnormal ECG When compared with ECG of 03-OCT-2020 10:03, ST now depressed in Lateral leads Nonspecific T wave abnormality now evident in Lateral leads Confirmed by Darian Garcia ([id number]) on 10/06/2020 4:58:14 PM Referred By: REFERRED SELF Confirmed By:Darian Garcia
[2020-10-06] MEDS: OLANZapine 5 MG TABLET PO SCH (21:40)
[2020-10-06] MEDS: traMADol HCL 50 MG TABLET PO PRN (21:40)
[2020-10-07] MEDS: LEVOTHYROXINE SODIUM 50 MCG TABLET PO SCH (06:11)
[2020-10-07 08:14] LABS: Mean Corpuscular Hgb Conc 31.2 g/dL (32-36)
[2020-10-07] MEDS: FUROSEMIDE 80 MG TAB PO SCH (08:31)
[2020-10-07] MEDS: ATORVASTATIN 40 MG TAB PO SCH ×2 (08:31→08:39)
[2020-10-07] MEDS: risperiDONE 0.5 MG TABLET PO SCH ×3 (08:31→20:24)
[2020-10-07] MEDS: SPIRONOLACTONE 12.5 MG TAB PO SCH (08:32)
[2020-10-07] MEDS: PANTOprazole 40 MG TAB PO SCH (08:32)
[2020-10-07] MEDS: ASPIRIN 81 MG ECTAB PO SCH ×2 (08:32→08:39)
[2020-10-07 08:34] LABS: Hematocrit (blood only) 32.4 % (42-52); Hemoglobin 10.1 g/dL (14.0-18.0); Mean Corpuscular Hemoglobin 24.2 pg (25-34); Mean Corpuscular Volume 77.7 fL (80-100); RDW Coefficient of Variation 21.6 % (11.5-14.5); RDW Standard Deviation 61.9 fL (36.4-46.3); Red Blood Count 4.17 M/uL (4.7-6.1); White Blood Count 5.03 K/uL (4.8-10.8)
[2020-10-07 08:38] LABS: Mean Platelet Volume 10.4 fL (7.4-10.4); Platelet Count 120 K/uL (130-400)
[2020-10-07 08:39] LABS: Platelet Estimate Decreased (Normal)
[2020-10-07 08:44] LABS: Albumin Level 2.7 gm/dl (3.4-5.0); BUN Creatinine Ratio 26.3 (10-20); Creatinine Clr Calc Pharmacy 47.2 ml/min; Est GFR (African American) 66.2; Est GFR (Non-African American) 57.1; Potassium 3.6 mmol/L (3.5-5.1)
[2020-10-07 08:46] LABS: Albumin Globulin Ratio 0.8 (0.9-2); Bilirubin,Total 1.4 mg/dl (0.2-1); Globulin 3.5 gm/dl (2.5-4.0); Total Protein 6.2 gm/dl (6.4-8.2)
[2020-10-07] MEDS: UMECLIDINIUM BROMIDE 62.5MCG/BLISTER 7 PUFFS/INHALER INH SCH (09:22)
--- NOTE | 2020-10-07 09:52 | Cardiology Progress Note ---
Date of Service October 07, 2020 Assessment & Plan (1) Decompensated heart failure: of the volume status quite good. With ambulation yesterday did not report limiting dyspnea. He refuses diuretic yesterday but still managed to effect some element of fluid loss. I think continuing him on 80 milligrams of Lasix daily is reasonable. His renal function appears quite stable. At some point we may even need to reduce the dose. His blood pressure has been on the lower side. Overall, improving. I think we will wait another day before initiating more aggressive therapy with beta- blockade. . (2) A-fib: While his rhythm continues to be irregular, the EKG obtained yesterday reveals a sinus rhythm with frequent atrial ectopy. No atrial fibrillation. (3) Ischemic cardiomyopathy: Persistently low ejection fraction. He has not been compliant with medical therapy. I would not expect much improvement unless he has more compliant with his outpatient medical regimen. I think his blood pressure looks good tomorrow we can reinitiate metoprolol succinate. Eventually we can reintroduce Jt inhibition if tolerated. (4) Mitral regurgitation: No significant murmur on examination. Mild mitral regurgitation on recent echocardiogram (5) CAD (coronary artery disease): He underwent PCI to an obtuse marginal in May of 2019. He has not describe any chest pain during this admission. Continue aspirin and atorvastatin. (6) Noncompliance: Generally compliant while in the hospital. This seems to be the biggest difficulty with his outpatient (And occasionally inpatient) management. Admission and Anticipated Discharge Date Admission Date: October 02, 2020 Subjective This morning the patient claims to be feeling well. He was able to ambulate around the [place]arcia briefly yesterday. He did not report any symptoms of dyspnea. He did report a sense of fatigue and weakness. It seems his main concern with ambulation and activity is "collapsing". He has not had dyspnea associated with getting back and forth to the bathroom. He denies any symptoms of chest pain. Does not respond reported dizziness. He most his breakfast but then became scared as the food was "bad" Review of Systems Review of Systems: per HPI Physical Exam Physical Exam: The patient is alert and oriented. Mood and affect appeared normal this morning. He answered all questions appropriately. some paranoia involving his food. HEENT: Pupils are equal and reactive to light and accommodation. Extraocular movements are intact. The sclerae are anicteric. Very poor dentition Neuro: Cranial nerves intact Neck: Patient's neck is supple. right central venous line in place.He has palpable carotid pulses bilaterally without bruits on auscultation. The thyroid is not enlarged. Lungs: Perhaps some very mildly reduced breath sounds in the right base. No rales. No expiratory wheezing. Normal respiratory effort. Cardiac: Heart demonstrates a regular rate and rhythm With Frequent ectopy. Normal S1 and S2. No murmurs on examination. Pulses: palpable left radial pulse. Right radial arterial Catheter currently being removed. Abdomen: Improved subcutaneous edema Extremities: no discoloration or cyanosis on exam today. There is no clubbing. He has chronic trophic and edematous changes in the right lower extremity. Minimal left lower extremity edema. Right lower extremity is wrapped Skin: I did not appreciate any rashes on examination today. He did have the trophic changes and dry skin as mentioned on his right lower extremity. Results & Data ([facility]) Vital Signs (Past 12 Hours) Vital Signs Temp Pulse Pulse Resp BP BP Pulse Ox 10/07/20 07:43 75 10/07/20 06:59 36.6 C 82 18 114/67 97 10/07/20 04:30 36.8 C 78 18 136/69 97 10/07/20 00:00 81 10/06/20 23:12 36.8 C 77 18 114/56 L 95 Laboratory Results Abnormal Lab Results 10/07/20 10/07/20 07:29 07:29 WBC 5.03 RBC 4.17 L Hgb 10.1 L Hct 32.4 L MCV 77.7 L MCH 24.2 L MCHC 31.2 L RDW Std Deviation 61.9 H RDW Coeff of Dante 21.6 H Plt Count 120 L MPV 10.4 Platelet Estimate Decreased L Sodium 142 Potassium 3.6 Chloride 108 H Carbon Dioxide 28 Anion Gap 6.0 BUN 34 H Creatinine 1.28 Est Cr Clr Drug Dosing 47.2 Est GFR ( Amer) 66.2 Est GFR (Non-Af Amer) 57.1 BUN/Creatinine Ratio 26.3 H Glucose 72 Calcium 8.0 L Total Bilirubin 1.4 H AST 16 ALT 10 L Alkaline Phosphatase 128 H Total Protein 6.2 L Albumin 2.7 L Globulin 3.5 Albumin/Globulin Ratio 0.8 L Diagnostic Findings Echocardiogram performed This admission reveals severely reduced LV systolic function with ejection fraction around 20%. Global hypokinesis with inferior akinesis. Mild mitral regurgitation. Mild right ventricular dilation reduced right ventricular function. PG Care Time/CCT Total # of Minutes Spent Total Time Spent with Patient: Total time spent is greater than 50% in coordination of care (as documented) at patient's floor/unit and/or counseling patient: Coding Level of Care Code 29676 Subseq Hosp Care Lvl 2 Diagnoses Decompensated heart failure I50.9 A-fib I48.91 Atrial fibrillation type: unspecified Ischemic cardiomyopathy I25.5 Mitral regurgitation I34.0 CAD (coronary artery disease) I25.10 Noncompliance Z91.19 (1) A-fib Atrial fibrillation type: unspecified Qualified Code(s): I48.91 - Unspecified atrial fibrillation
--- NOTE | 2020-10-07 09:55 | Hospitalist Progress Note ---
Date of Service October 07, 2020 Assessment & Plan (1) Non-compliance: ASSESSMENT AND PLAN: This is a 70-year-old male who is noncompliant with medication, who presented with shortness of breath. 1. Shortness of breath:Acute on chronic systolic CHF CTA of the chest unremarkable except for mild right pleural effusion. He has a history of congestive heart failure with EF of 15% to 20%. Supposed to be on Lasix and Aldactone, noncompliant with the medications. In the ER, he was given IV Lasix 40. Cardiology consulted, appreciate their input. Currently on PO lasix 80 mg daily. 2. History of atrial fibrillation, now in sinus w/ frequent ectopy. rate is under control, pt noncompliant with medication. ICMO, CAD Cardiology following. plan to restart metoprolol succinate. ideally reintroduce ACEinh in the future if BP allows. Cont. ASA and atorvastatin. 3. History of chronic right leg lymphedema and chronic wounds. Recently was treated with Cipro and Amoxicillin for his pseudomonas and enterococcus. Recultured as there appeared to be some drainage - no growth. Wound care. 4. Hypothyroidism. Levothyroxine. 5. History of paranoid schizophrenia. Risperidone and Olanzapine. No hallucinations currently, Psychiatry consulted several times during previous admissions, however pt noncompliant w/ medications when out of the hospital (and sometimes also while int) -believing his medications "go bad in his apartment." Which seems to be the major issue for his clinical decline and frequent readmissions. DVT prophylaxis with Lovenox. 7. History of prolonged QT. Avoid QT prolonging drugs and follow the repeat EKG. 8. Disposition, Social service to help with discharge planning. Case management and palliative medicine both involved in the discharge planning and possible decision-makers assignments. On 10/03 at At 0840 sylvie fabio was called, patient was somnolent, his BP was in the low 80s and he had just gotten his 500 ml bolus. His hands and feet were profoundly cyanotic. saline running wide open, but his BP was not coming up and he was bradycardic. transferred him to PCU, but since he needed pressors and closer monitoring,discussed his care c ICU attending and moved him there. While there a central line was placed and he was started on Levophed. He was stabilized in the ICU. His code status was discussed at length by the ICU Dr and pt wants to remain a full code. Cr rising, Renal on case, off Levophed, BP 101 Systolic Palliative medicine was consulted - pt wishes to remain full code, in the process of assigning decision-makers for the patient. 10/05 transferred to PCU, Continue Heparin gtt, PT/OT 10/06 No improvement from yesterday, still weak, limited activity, Prognosis poor 10/07 Appears to be doing better but overall weak, prognosis remains poor, palliative medicine and case management involved in discharge planning and in progress of possible decision-maker for pt assignment Admission and Anticipated Discharge Date Admission Date: October 02, 2020 Subjective Patient is lying in bed, in no acute distress. Currently denies any chest pain or shortness of breath, says he gets short of breath easily though with any mild ambulation. He did walk in the hallway. He is answering most questions appropriately. He still insists on his medications "going bad" in his apartment. He also feels that he is not doing well in his apartment overall but he cannot explain exactly what he means by that. [facility]iscussed [facility]: Patient states that he was doing well there and he is okay to [facility] to [facility] discharge. Also discussed if somebody could be helping him with his medications after he returns home. Palliative medicine involved and case management also involved with discharge planning. Hilaria from palliative medicine is trying to establish decision-makers for the patient. It could help if people that he trusts are helping him with his medications as medication noncompliance seems to be the most major part of his clinical decline and frequent readmissions. Review of Systems Review of Systems: All systems reviewed & are unremarkable except as noted in HPI & below Constitutional: no fever and no chills Respiratory: no cough and no dyspnea Cardiovascular: no chest pain and no palpitations Gastrointestinal: no abdominal pain, no nausea and no vomiting Physical Exam Physical Exam: Gen- elderly male laying in bed in NAD,AAO x 3, NAD, Afebrile, thin, weak Head- NCAT, EOMI, Anicteric Sclera, No Posterior Pharyngeal Erythema Neck-Supple, No JVD Lungs-Clear to Auscultation Bilaterally, No Rales, No Rhonchi, No Wheezing Chest- regular w/ frequent ectopy, No Murmurs Abdomen- Soft, Bowel Sounds Present, Non Tender, Thin, Non Distended, No Rigidity, No Guarding Musculoskeletal-Full Range of Motion Bilaterally, No CVAT Extremities- RLE Lymphedema, c scaly stasis Dermatitis, RLE wrapped Neuro- alert and oriented x3, Cranial Nerves II-XII grossly intact, Motor WNL, DTRs WNL, Strength WNL, Non Focal Psych-Normal Mood Results & Data Results & Data ([facility]) Vital Signs (Past 12 Hours) Vital Signs Temp Pulse Pulse Resp BP BP Pulse Ox 10/07/20 07:43 75 10/07/20 06:59 36.6 C 82 18 114/67 97 10/07/20 04:30 36.8 C 78 18 136/69 97 10/07/20 00:00 81 10/06/20 23:12 36.8 C 77 18 114/56 L 95 Laboratory Results 10/07/20 10/07/20 Range/Units 07:29 07:29 WBC 5.03 (4.8-10.8) K/uL RBC 4.17 L (4.7-6.1) M/uL Hgb 10.1 L (14.0-18.0) g/dL Hct 32.4 L (42-52) % MCV 77.7 L (80-100) fL MCH 24.2 L (25-34) pg MCHC 31.2 L (32-36) g/dL RDW Std Deviation 61.9 H (36.4-46.3) fL RDW Coeff of Dante 21.6 H (11.5-14.5) % Plt Count 120 L (130-400) K/uL MPV 10.4 (7.4-10.4) fL Platelet Estimate Decreased L (Normal) Sodium 142 (136-145) mmol/L Potassium 3.6 (3.5-5.1) mmol/L Chloride 108 H (98-107) mmol/L Carbon Dioxide 28 (21-32) mmol/L Anion Gap 6.0 (3-11) BUN 34 H (7-18) mg/dl Creatinine 1.28 (0.6-1.4) mg/dl Est Cr Clr Drug Dosing 47.2 ml/min Est GFR ( Amer) 66.2 Est GFR (Non-Af Amer) 57.1 BUN/Creatinine Ratio 26.3 H (10-20) Glucose 72 (70-99) mg/dl Calcium 8.0 L (8.5-10.1) mg/dl Total Bilirubin 1.4 H (0.2-1) mg/dl AST 16 (15-37) U/L ALT 10 L (12-78) U/L Alkaline Phosphatase 128 H (45-117) U/L Total Protein 6.2 L (6.4-8.2) gm/dl Albumin 2.7 L (3.4-5.0) gm/dl Globulin 3.5 (2.5-4.0) gm/dl Albumin/Globulin Ratio 0.8 L (0.9-2) Medications Administered Current Inpatient Medications Acetaminophen (Acetaminophen 325 Mg Tab) 650 mg PO Q4H PRN PRN Reason: Pain or Fever Stop: 10/31/20 08:50 Aspirin (Aspirin 81 Mg Ectab) 81 mg PO DAILY [facility] Stop: 10/31/20 08:59 Last Admin: 10/07/20 08:39 Dose: Not Given Documented by: Atorvastatin Calcium (Atorvastatin 40 Mg Tab) 80 mg PO QAM [facility] Stop: 10/31/20 08:59 Last Admin: 10/07/20 08:39 Dose: 20 mg Documented by: Furosemide (Furosemide 80 Mg Tab) 80 mg PO DAILY [facility] Stop: 11/05/20 09:29 Last Admin: 10/07/20 08:31 Dose: 80 mg Documented by: Heparin Sodium (Beef Lung) (Heparin 10 Unit/Ml 5 Ml Flush) 5 ml FLUSH PRN PRN PRN Reason: Flush Stop: 11/02/20 23:58 Ipratropium [place] (Ipratropium [place] Neb Soln 0.02% 2.5 Ml Vial) 0.5 mg INH Q4H PRN PRN Reason: SOB OR WHEEZING Stop: 10/31/20 08:50 Levalbuterol HCl (Levalbuterol Hcl 0.63 Mg/3 Ml Neb) 0.63 mg NEB Q4H PRN PRN Reason: Shortness Of Breath OR WHEEZIN Stop: 10/31/20 08:50 Levothyroxine Sodium (Levothyroxine Sodium 50 Mcg Tablet) 50 mcg PO DAILYBB [facility] Stop: 10/31/20 08:50 Last Admin: 10/07/20 06:11 Dose: 50 mcg Documented by: Nitroglycerin (Nitroglycerin Sl 0.4 Mg/Tab Tab) 0.4 mg SL UD PRN PRN Reason: Chest Pain Stop: 10/31/20 08:50 Olanzapine (Olanzapine 5 Mg Tablet) 5 mg PO HS [facility] Stop: 10/31/20 20:59 Last Admin: 10/06/20 21:40 Dose: 5 mg Documented by: Pantoprazole Sodium (Pantoprazole 40 Mg Tab) 40 mg PO QAM [facility] Stop: 11/03/20 08:59 Last Admin: 10/07/20 08:32 Dose: 40 mg Documented by: Polyethylene Glycol (Polyethylene (Miralax) 17 Gm Pack) 17 gm PO DAILY PRN PRN Reason: Constipation Stop: 10/31/20 08:50 Risperidone (Risperidone 0.5 Mg Tablet) 0.5 mg PO BID [facility] Stop: 10/31/20 08:59 Last Admin: 10/07/20 08:38 Dose: Not Given Documented by: Spironolactone (Spironolactone 12.5 Mg Tab) 12.5 mg PO DAILY [facility] Stop: 10/31/20 08:59 Last Admin: 10/07/20 08:32 Dose: 12.5 mg Documented by: Tramadol HCl (Tramadol Hcl 50 Mg Tablet) 50 mg PO Q4H PRN PRN Reason: Pain Stop: 10/31/20 08:50 Last Admin: 10/06/20 21:40 Dose: 50 mg Documented by: Umeclidinium [place] (Umeclidinium [place] 62.5mcg/Blister 7 Puffs/Inhaler) 1 puffs INH DAILY [facility] Stop: 10/31/20 08:59 Last Admin: 10/07/20 09:22 Dose: 1 puffs Documented by:
--- NOTE | 2020-10-07 10:33 | Palliative Care Progress Note ---
Date of Service October 07, 2020 Assessment & Plan (1) Palliative care encounter: I met with the patient in room 238 today. Patient reports feeling well today. He is ambulating independently around the room. No new hallucinations noted or reported. He has not experienced any SOB. The patient was able to recall the names Nancy and Elenita who he would like to be made aware and see if they would make decisions for him if he is unable. He said they are case workers. I have been playing phone tag with Halima. I left her another message at ([phone]). Per discussion with the hospitalist, there are some medication alterations that they are doing before considering discharge. Palliative care will follow and complete communication with [facility] [employer]. Palliative will follow to assist with completion of decision making information. (2) CHF (congestive heart failure): (3) COPD (chronic obstructive pulmonary disease): (4) Schizophrenia: Patient has been evaluated by Psychiatry on previous hospitalizations. No new hallucinatory changes. Patient takes Zyprexa 0.5 mg PO Q HS and Risperidone 0.5 mg po BID Patient has had known non-compliance, but reports understanding of taking medications. (5) Dyspnea: (6) Medical non-compliance: Patient has historically been non-compliant in the past, does recognize the importance of outpatient follow up and medication compliance Admission and Anticipated Discharge Date Admission Date: October 02, 2020 Subjective Patient feeling well today. He is ambulating independently around the room. No new hallucinations noted or reported. He has not experienced any SOB. Please see A/P for further details Review of Systems Review of Systems: [place] Symptom Assessment Scale Pain 0/3 Dyspnea 0/3 Anxiety 2/3 Depression2/3 Drowsiness 2/3 Nausea 1/3 Anorexia 2/3 Palliative Performance Score 30% Physical Exam Constitutional: + frail appearing, + disheveled, cooperative and comfortable; + not well groomed Respiratory: normal respiratory effort and + cough Auscultation: + diminished lung sounds Cardiovascular: Rate/Rhythm: regular rate and regular rhythm Heart Sounds: normal S1 and normal S2 Extremities: normal capillary refill and + edema Gastrointestinal (Abdomen): normal bowel sounds, soft, nontender, no hepatosplenomegaly Skin: + excoriations and + pallor Trauma: + abrasion Psychiatric: Orientation: alert and oriented x 3 Thought Process: + flight of ideas Thought Content: + worthlessness Suicidal Thoughts: denies suicidal thoughts Hallucinations: + auditory hallucinations Insight: + limited insight Judgement: + limited judgement Results & Data ([facility]) Vital Signs (Past 12 Hours) Vital Signs Temp Pulse Pulse Resp BP BP Pulse Ox 10/07/20 07:43 75 10/07/20 06:59 36.6 C 82 18 114/67 97 10/07/20 04:30 36.8 C 78 18 136/69 97 10/07/20 00:00 81 10/06/20 23:12 36.8 C 77 18 114/56 L 95 PG Care Time/CCT Total # of Minutes Spent Total Time Spent with Patient: Total time spent is greater than 50% in coordination of care (as documented) at patient's floor/unit and/or counseling patient: 25 Coding Level of Care Code 59706 Subseq Hosp Care Lvl 2 Diagnoses Palliative care encounter Z51.5 CHF (congestive heart failure) I50.43 Heart failure chronicity: acute on chronic Heart failure type: combined systolic and diastolic COPD (chronic obstructive pulmonary disease) J44.9 COPD type: unspecified COPD Schizophrenia F20.9 Schizophrenia type: unspecified Dyspnea R06.00 Dyspnea type: dyspnea on exertion Medical non-compliance Z91.19 Time Spent (min) 25 Time Spent Midlevel Total time spent 25 minutes with > 50% of that time spent assessing the patient, discussing plan of care and collaborating with IDT. (1) CHF (congestive heart failure) Heart failure chronicity: acute on chronic Heart failure type: combined systolic and diastolic Qualified Code(s): I50.43 - Acute on chronic combined systolic (congestive) and diastolic (congestive) heart failure (2) COPD (chronic obstructive pulmonary disease) COPD type: unspecified COPD Qualified Code(s): J44.9 - Chronic obstructive pulmonary disease, unspecified (3) Schizophrenia Schizophrenia type: unspecified Qualified Code(s): F20.9 - Schizophrenia, unspecified (4) Dyspnea Dyspnea type: dyspnea on exertion Qualified Code(s): R06.00 - Dyspnea, unspecified
[2020-10-07] MEDS: traMADol HCL 50 MG TABLET PO PRN (20:27)
[2020-10-07] MEDS: OLANZapine 5 MG TABLET PO SCH (20:28)
[2020-10-08] MEDS: LEVOTHYROXINE SODIUM 50 MCG TABLET PO SCH (06:21)
--- NOTE | 2020-10-08 08:19 | Hospitalist Progress Note ---
Date of Service October 08, 2020 Assessment & Plan (1) Non-compliance: ASSESSMENT AND PLAN: This is a 70-year-old male who is noncompliant with medication, who presented with shortness of breath. 1. Shortness of breath:Acute on chronic systolic CHF CTA of the chest unremarkable except for mild right pleural effusion. He has a history of congestive heart failure with EF of 15% to 20%. Supposed to be on Lasix and Aldactone, noncompliant with the medications. In the ER, he was given IV Lasix 40. Cardiology consulted, appreciate their input. Currently on PO lasix 80 mg daily. 2. History of atrial fibrillation, now in sinus w/ frequent ectopy. rate is under control, pt noncompliant with medication. ICMO, CAD Cardiology following. plan was to restart metoprolol succinate and ideally reintroduce ACEinh however BP remains on low side and so not optimal to do at this time. Cont. ASA and atorvastatin. 3. History of chronic right leg lymphedema and chronic wounds. Recently was treated with Cipro and Amoxicillin for his pseudomonas and enterococcus. Recultured as there appeared to be some drainage - no growth. Wound care. 4. Hypothyroidism. Levothyroxine. 5. History of paranoid schizophrenia. Risperidone and Olanzapine. No hallucinations currently, Psychiatry consulted several times during previous admissions, however pt noncompliant w/ medications when out of the hospital (and sometimes also while int) -believing his medications "go bad in his apartment." Which seems to be the major issue for his clinical decline and frequent readmissions. DVT prophylaxis with Lovenox. 7. History of prolonged QT. Avoid QT prolonging drugs and follow the repeat EKG. 8. Disposition, Social service to help with discharge planning. Case management and palliative medicine both involved in the discharge planning and possible decision-makers assignments. It could help if people that he trusts are helping him with his medications as medication noncompliance seems to be the major part of his clinical decline and frequent readmissions. On 10/03 AM sylvie mccarthy was called, patient was somnolent, his BP was in the low 80s and he had just gotten his 500 ml bolus. His hands and feet were profoundly cyanotic. saline running wide open, but his BP was not coming up and he was bradycardic. transferred him to PCU, but since he needed pressors and closer monitoring,discussed his care c ICU attending and moved him there. While there a central line was placed and he was started on Levophed. He was stabilized in the ICU. His code status was discussed at length by the ICU Dr and pt wants to remain a full code. Palliative medicine was consulted - pt wishes to remain full code, in the process of assigning decision-makers for the patient. 10/06 No improvement from yesterday, still weak, limited activity, Prognosis poor 10/07 Appears to be doing better but overall weak, prognosis remains poor, palliative medicine and case management involved in discharge planning and in progress of possible decision-maker for pt assignment 10/08 BP remains low and so up-titrating his cardiac meds is not an option at this time, overall pt feel better but remains weak, plan for dc to [facility] Admission and Anticipated Discharge Date Admission Date: October 02, 2020 Subjective Patient is sitting up in bed, in no acute distress. Eating without any issues. No fever chills, chest pain, shortness of breath. Reports that he has been ambulating without much difficulty, denies any dizziness or lightheadedness however feels weak. Likely plan to [facility] tomorrow. Palliative medicine and case management following, decision maker assignment in progress. It could help if people that he trusts are helping him with his medications as medication noncompliance seems to be the major part of his clinical decline and frequent readmissions. Review of Systems Review of Systems: All systems reviewed & are unremarkable except as noted in HPI & below Constitutional: no fever and no chills Respiratory: no cough and no dyspnea Cardiovascular: no chest pain and no palpitations Gastrointestinal: no abdominal pain, no nausea and no vomiting Physical Exam Physical Exam: Gen- elderly male laying in bed in NAD,AAO x 3, NAD, Afebrile, thin, weak Head- NCAT, EOMI, Anicteric Sclera, No Posterior Pharyngeal Erythema Neck-Supple, No JVD Lungs-Clear to Auscultation Bilaterally, No Rales, No Rhonchi, No Wheezing Chest- regular w/ frequent ectopy, No Murmurs Abdomen- Soft, Bowel Sounds Present, Non Tender, Thin, Non Distended, No Rigidity, No Guarding Musculoskeletal-Full Range of Motion Bilaterally Extremities- RLE Lymphedema, c scaly stasis Dermatitis, RLE wrapped Neuro- alert and oriented x3, Cranial Nerves II-XII grossly intact, moves extremities spontaneously Psych-Normal Mood Results & Data Results & Data ([facility]) Vital Signs (Past 12 Hours) Vital Signs Temp Pulse Pulse Resp BP Pulse Ox 10/08/20 07:03 36.5 C 78 19 111/58 L 97 10/08/20 03:42 36.6 C 67 16 99/61 L 10/08/20 00:40 84 10/08/20 00:00 36.9 C 88 20 108/67 96 Laboratory Results 10/08/20 Range/Units 07:26 Sodium 143 (136-145) mmol/L Potassium 3.6 (3.5-5.1) mmol/L Chloride 107 (98-107) mmol/L Carbon Dioxide 29 (21-32) mmol/L Anion Gap 6.0 (3-11) BUN 33 H (7-18) mg/dl Creatinine 1.07 (0.6-1.4) mg/dl Est Cr Clr Drug Dosing 56.4 ml/min Est GFR ( Amer) 82.2 Est GFR (Non-Af Amer) 71.0 BUN/Creatinine Ratio 30.6 H (10-20) Glucose 83 (70-99) mg/dl Calcium 8.2 L (8.5-10.1) mg/dl Phosphorus 2.5 (2.5-4.9) mg/dl Magnesium 1.9 (1.8-2.4) mg/dl Medications Administered Current Inpatient Medications Acetaminophen (Acetaminophen 325 Mg Tab) 650 mg PO Q4H PRN PRN Reason: Pain or Fever Stop: 10/31/20 08:50 Aspirin (Aspirin 81 Mg Ectab) 81 mg PO DAILY [facility] Stop: 10/31/20 08:59 Last Admin: 10/08/20 08:27 Dose: Not Given Documented by: Atorvastatin Calcium (Atorvastatin 40 Mg Tab) 80 mg PO QAM [facility] Stop: 10/31/20 08:59 Last Admin: 10/08/20 08:28 Dose: 20 mg Documented by: Furosemide (Furosemide 80 Mg Tab) 80 mg PO DAILY [facility] Stop: 11/05/20 09:29 Last Admin: 10/08/20 08:30 Dose: 80 mg Documented by: Heparin Sodium (Beef Lung) (Heparin 10 Unit/Ml 5 Ml Flush) 5 ml FLUSH PRN PRN PRN Reason: Flush Stop: 11/02/20 23:58 Ipratropium [place] (Ipratropium [place] Neb Soln 0.02% 2.5 Ml Vial) 0.5 mg INH Q4H PRN PRN Reason: SOB OR WHEEZING Stop: 10/31/20 08:50 Levalbuterol HCl (Levalbuterol Hcl 0.63 Mg/3 Ml Neb) 0.63 mg NEB Q4H PRN PRN Reason: Shortness Of Breath OR WHEEZIN Stop: 10/31/20 08:50 Levothyroxine Sodium (Levothyroxine Sodium 50 Mcg Tablet) 50 mcg PO DAILYBB [facility] Stop: 10/31/20 08:50 Last Admin: 10/08/20 06:21 Dose: 50 mcg Documented by: Nitroglycerin (Nitroglycerin Sl 0.4 Mg/Tab Tab) 0.4 mg SL UD PRN PRN Reason: Chest Pain Stop: 10/31/20 08:50 Olanzapine (Olanzapine 5 Mg Tablet) 5 mg PO HS [facility] Stop: 10/31/20 20:59 Last Admin: 10/07/20 20:28 Dose: 5 mg Documented by: Pantoprazole Sodium (Pantoprazole 40 Mg Tab) 40 mg PO QAM [facility] Stop: 11/03/20 08:59 Last Admin: 10/08/20 08:26 Dose: Not Given Documented by: Polyethylene Glycol (Polyethylene (Miralax) 17 Gm Pack) 17 gm PO DAILY PRN PRN Reason: Constipation Stop: 10/31/20 08:50 Risperidone (Risperidone 0.5 Mg Tablet) 0.5 mg PO BID [facility] Stop: 10/31/20 08:59 Last Admin: 10/08/20 08:25 Dose: Not Given Documented by: Spironolactone (Spironolactone 12.5 Mg Tab) 12.5 mg PO DAILY [facility] Stop: 10/31/20 08:59 Last Admin: 10/08/20 08:29 Dose: 12.5 mg Documented by: Tramadol HCl (Tramadol Hcl 50 Mg Tablet) 50 mg PO Q4H PRN PRN Reason: Pain Stop: 10/31/20 08:50 Last Admin: 10/07/20 20:27 Dose: 50 mg Documented by: Umeclidinium [place] (Umeclidinium [place] 62.5mcg/Blister 7 Puffs/Inhaler) 1 puffs INH DAILY [facility] Stop: 10/31/20 08:59 Last Admin: 10/08/20 08:30 Dose: 1 puffs Documented by:
[2020-10-08 08:23] LABS: BUN Creatinine Ratio 30.6 (10-20); Calcium 8.2 mg/dl (8.5-10.1); Creatinine Clr Calc Pharmacy 56.4 ml/min; Est GFR (African American) 82.2; Magnesium 1.9 mg/dl (1.8-2.4); Phosphorus 2.5 mg/dl (2.5-4.9); Potassium 3.6 mmol/L (3.5-5.1)
[2020-10-08] MEDS: risperiDONE 0.5 MG TABLET PO SCH ×2 (08:25→20:39)
[2020-10-08] MEDS: PANTOprazole 40 MG TAB PO SCH (08:26)
[2020-10-08] MEDS: ASPIRIN 81 MG ECTAB PO SCH (08:27)
[2020-10-08] MEDS: ATORVASTATIN 40 MG TAB PO SCH (08:28)
[2020-10-08] MEDS: SPIRONOLACTONE 12.5 MG TAB PO SCH (08:29)
[2020-10-08] MEDS: UMECLIDINIUM BROMIDE 62.5MCG/BLISTER 7 PUFFS/INHALER INH SCH (08:30)
[2020-10-08] MEDS: FUROSEMIDE 80 MG TAB PO SCH (08:30)
--- NOTE | 2020-10-08 14:43 | Cardiology Progress Note ---
Date of Service October 08, 2020 Assessment & Plan (1) Decompensated heart failure: I think he is euvolemic. He has had effective diuresis over the past few days. Appears maintaining a good volume status on his current dose of Lasix. I will continue him on his current dose of Lasix. Renal function electrolytes appear normal and stable. His blood pressures been relatively low and I do not think there is an option for more intensive medical therapy at this time. . (2) A-fib: No atrial fibrillation. Continues to have frequent atrial ectopy. (3) Ischemic cardiomyopathy: Persistently low ejection fraction. He has not been compliant with medical therapy. At this point does not appear to be room for intensification of his heart failure therapy due to relatively low blood pressures. (4) Mitral regurgitation: No significant murmur on examination. Mild mitral regurgitation on recent echocardiogram (5) CAD (coronary artery disease): He underwent PCI to an obtuse marginal in May of 2019. He has not describe any chest pain during this admission. Continue aspirin and atorvastatin. (6) Noncompliance: Generally compliant while in the hospital. This seems to be the biggest difficulty with his outpatient (And occasionally inpatient) management. Admission and Anticipated Discharge Date Admission Date: October 02, 2020 Subjective Morning the patient was resting comfortably. Review of Systems Review of Systems: no complaints Physical Exam Physical Exam: sleeping Neck: Patient's neck is supple. right central venous line in place.He has palpable carotid pulses bilaterally without bruits on auscultation. The thyroid is not enlarged. Lungs: No expiratory wheezing. Normal respiratory effort. Cardiac: Heart demonstrates a regular rate and rhythm With Frequent ectopy. Normal S1 and S2. No murmurs on examination. Pulses: palpable radial pulses bilaterally Abdomen: soft. Extremities: no discoloration or cyanosis on exam today. There is no clubbing. He has chronic trophic and edematous changes in the right lower extremity. Minimal left lower extremity edema. Right lower extremity is wrapped Skin: I did not appreciate any rashes on examination today. He did have the trophic changes and dry skin as mentioned on his right lower extremity. Results & Data ([facility]) Vital Signs (Past 12 Hours) Vital Signs Temp Pulse Pulse Resp BP Pulse Ox 10/08/20 11:15 36.6 C 64 17 95/45 L 92 10/08/20 07:03 36.5 C 78 19 111/58 L 97 10/08/20 07:00 80 10/08/20 03:42 36.6 C 67 16 99/61 L Laboratory Results Abnormal Lab Results 10/08/20 07:26 Sodium 143 Potassium 3.6 Chloride 107 Carbon Dioxide 29 Anion Gap 6.0 BUN 33 H Creatinine 1.07 Est Cr Clr Drug Dosing 56.4 Est GFR ( Amer) 82.2 Est GFR (Non-Af Amer) 71.0 BUN/Creatinine Ratio 30.6 H Glucose 83 Calcium 8.2 L Phosphorus 2.5 Magnesium 1.9 PG Care Time/CCT Total # of Minutes Spent Total Time Spent with Patient: Total time spent is greater than 50% in coordination of care (as documented) at patient's floor/unit and/or counseling patient: Coding Level of Care Code 90861 Subseq Hosp Care Lvl 1 Diagnoses Decompensated heart failure I50.9 A-fib I48.91 Atrial fibrillation type: unspecified Ischemic cardiomyopathy I25.5 Mitral regurgitation I34.0 CAD (coronary artery disease) I25.10 Noncompliance Z91.19 (1) A-fib Atrial fibrillation type: unspecified Qualified Code(s): I48.91 - Unspecified atrial fibrillation
--- NOTE | 2020-10-08 15:13 | Palliative Care Progress Note ---
Date of Service October 08, 2020 Assessment & Plan (1) Palliative care encounter: I met with the patient in room 238 today. Patient reports feeling well today. He is ambulating independently around the room. I was able to speak with Nabeel from [employer]. She was able to talk with Elenita Felipe, one of the child welfare caseworker that Mendoza named as a possible decision maker. Elenita stated that she was willing to complete paperwork. I left a message with [facility] through [facility] to call and complete paperwork Appointed decision maker: Elenita Felipe [phone] At this time, case management advised this patient would be going to [facility] for acute rehab prior to returning to his apartment. At this time, palliative care will sign off on this patient. Should the patient require further assistance, please do not hesitate to contact us. (2) CHF (congestive heart failure): (3) COPD (chronic obstructive pulmonary disease): (4) Schizophrenia: Patient has been evaluated by Psychiatry on previous hospitalizations. No new hallucinatory changes. Patient takes Zyprexa 0.5 mg PO Q HS and Risperidone 0.5 mg po BID Patient has had known non-compliance, but reports understanding of taking medications. (5) Dyspnea: (6) Medical non-compliance: Patient has historically been non-compliant in the past, does recognize the importance of outpatient follow up and medication compliance Admission and Anticipated Discharge Date Admission Date: October 02, 2020 Subjective Morning the patient was resting comfortably. plan for patient to go to [facility] for acute rehab prior to him returning to his apartment See A/P for further information Review of Systems Review of Systems: [place] Symptom Assessment Scale Pain 0/3 Dyspnea 0/3 Anxiety 2/3 Depression2/3 Drowsiness 2/3 Nausea 1/3 Anorexia 2/3 Palliative Performance Score 30% Physical Exam Constitutional: + frail appearing, + disheveled, cooperative and comfortable; + not well groomed Respiratory: normal respiratory effort and + cough Auscultation: + diminished lung sounds Cardiovascular: Rate/Rhythm: regular rate and regular rhythm Heart Sounds: normal S1 and normal S2 Extremities: normal capillary refill and + edema Gastrointestinal (Abdomen): normal bowel sounds, soft, nontender, no hepatosplenomegaly Skin: + excoriations and + pallor Trauma: + abrasion Psychiatric: Orientation: alert and oriented x 3 Thought Process: + flight of ideas Thought Content: + worthlessness Suicidal Thoughts: denies suicidal thoughts Hallucinations: + auditory hallucinations Insight: + limited insight Judgement: + limited judgement Results & Data ([facility]) Vital Signs (Past 12 Hours) Vital Signs Temp Pulse Pulse Resp BP Pulse Ox 10/08/20 15:02 36.5 C 85 17 107/62 96 10/08/20 11:15 36.6 C 64 17 95/45 L 92 10/08/20 07:03 36.5 C 78 19 111/58 L 97 10/08/20 07:00 80 10/08/20 03:42 36.6 C 67 16 99/61 L PG Care Time/CCT Total # of Minutes Spent Total Time Spent with Patient: Total time spent is greater than 50% in coordination of care (as documented) at patient's floor/unit and/or counseling patient: 25 Coding Level of Care Code 91858 Subseq Hosp Care Lvl 2 Diagnoses Palliative care encounter Z51.5 CHF (congestive heart failure) I50.43 Heart failure chronicity: acute on chronic Heart failure type: combined systolic and diastolic COPD (chronic obstructive pulmonary disease) J44.9 COPD type: unspecified COPD Schizophrenia F20.9 Schizophrenia type: unspecified Dyspnea R06.00 Dyspnea type: dyspnea on exertion Medical non-compliance Z91.19 Time Spent (min) 25 Time Spent Midlevel Total time spent 25 minutes with > 50% of that time spent assessing the patient, discussing goals of care and collaborating with IDT (1) CHF (congestive heart failure) Heart failure chronicity: acute on chronic Heart failure type: combined systolic and diastolic Qualified Code(s): I50.43 - Acute on chronic combined systolic (congestive) and diastolic (congestive) heart failure (2) COPD (chronic obstructive pulmonary disease) COPD type: unspecified COPD Qualified Code(s): J44.9 - Chronic obstructive pulmonary disease, unspecified (3) Schizophrenia Schizophrenia type: unspecified Qualified Code(s): F20.9 - Schizophrenia, unspecified (4) Dyspnea Dyspnea type: dyspnea on exertion Qualified Code(s): R06.00 - Dyspnea, uns pecified
[2020-10-08] MEDS: OLANZapine 5 MG TABLET PO SCH (20:39)
[2020-10-08] MEDS: traMADol HCL 50 MG TABLET PO PRN (20:39)
[2020-10-09] MEDS: LEVOTHYROXINE SODIUM 50 MCG TABLET PO SCH (05:58)
[2020-10-09 07:47] LABS: BUN Creatinine Ratio 29.8 (10-20); Calcium 8.3 mg/dl (8.5-10.1); Creatinine Clr Calc Pharmacy 50.9 ml/min; Est GFR (African American) 77.8; Est GFR (Non-African American) 67.1; Potassium 3.6 mmol/L (3.5-5.1)
[2020-10-09] MEDS: UMECLIDINIUM BROMIDE 62.5MCG/BLISTER 7 PUFFS/INHALER INH SCH (09:07)
--- NOTE | 2020-10-09 09:07 | Cardiology Progress Note ---
Date of Service October 09, 2020 Assessment & Plan (1) Decompensated heart failure: Lungs are clear. Euvolemic. Renal function electrolytes stable. I will continue him on 80 milligrams of Lasix daily. . (2) A-fib: No atrial fibrillation. Continues to have frequent atrial ectopy. (3) Ischemic cardiomyopathy: Persistently low ejection fraction. He has not been compliant with medical therapy. He is on spironolactone. I think we could add low-dose metoprolol succinate as well. His blood pressure appears to have stabilized. (4) Mitral regurgitation: No significant murmur on examination. Mild mitral regurgitation on recent echocardiogram (5) CAD (coronary artery disease): He underwent PCI to an obtuse marginal in May of 2019. He has not describe any chest pain during this admission. Continue aspirin and atorvastatin. (6) Noncompliance: Generally compliant while in the hospital. This seems to be the biggest difficulty with his outpatient (And occasionally inpatient) management. I will be away from the hospital for the next 2 days. If there are additional questions regarding his cardiac care please contact the on-call [place] languages and literature instructor, Dr. Lechuga Admission and Anticipated Discharge Date Admission Date: October 02, 2020 Subjective This morning the patient claims to be feeling well. He had a restless evening, but no specific complaints. He reports ambulating extensively yesterday without limiting dyspnea. He used a walker and felt like this made his breathing better. No exertional chest pain or chest pain at rest. No sense of palpitations. Good appetite. No abdominal complaints. Review of Systems Review of Systems: Per HPI Physical Exam Physical Exam: alert and oriented. Answers all questions appropriately. HEENT: Sclerae anicteric. extraocular movements intact. Neck: Patient's neck is supple. right central venous line in place.He has palpable carotid pulses bilaterally without bruits on auscultation. The thyroid is not enlarged. Lungs: No expiratory wheezing. Normal respiratory effort. Clear to auscultation. Cardiac: Heart demonstrates a regular rate and rhythm With Frequent ectopy. Normal S1 and S2. No murmurs on examination. Pulses: palpable radial pulses bilaterally Abdomen: soft. Some right lower quadrant edema which is likely lymphedema. Extremities: no discoloration or cyanosis on exam today. There is no clubbing. He has chronic trophic and edematous changes in the right lower extremity. Minimal left lower extremity edema. Right lower extremity is wrapped Skin: I did not appreciate any rashes on examination today. He did have the trophic changes and dry skin as mentioned on his right lower extremity. Results & Data ([facility]) Vital Signs (Past 12 Hours) Vital Signs Temp Pulse Resp BP BP Pulse Ox 10/09/20 07:09 36.6 C 79 18 110/69 97 10/09/20 03:47 37.3 C 76 18 108/73 97 10/09/20 00:01 36.4 C L 86 20 115/70 98 Laboratory Results Abnormal Lab Results 10/09/20 06:43 Sodium 139 Potassium 3.6 Chloride 106 Carbon Dioxide 28 Anion Gap 5.0 BUN 33 H Creatinine 1.12 Est Cr Clr Drug Dosing 50.9 Est GFR ( Amer) 77.8 Est GFR (Non-Af Amer) 67.1 BUN/Creatinine Ratio 29.8 H Glucose 113 H Calcium 8.3 L PG Care Time/CCT Total # of Minutes Spent Total Time Spent with Patient: Total time spent is greater than 50% in coordination of care (as documented) at patient's floor/unit and/or counseling patient: Coding Level of Care Code 19638 Subseq Hosp Care Lvl 2 Diagnoses Decompensated heart failure I50.9 A-fib I48.91 Atrial fibrillation type: unspecified Ischemic cardiomyopathy I25.5 Mitral regurgitation I34.0 CAD (coronary artery disease) I25.10 Noncompliance Z91.19 (1) A-fib Atrial fibrillation type: unspecified Qualified Code(s): I48.91 - Unspecified atrial fibrillation
[2020-10-09] MEDS: ATORVASTATIN 40 MG TAB PO SCH (09:08)
[2020-10-09] MEDS: FUROSEMIDE 80 MG TAB PO SCH (09:09)
[2020-10-09] MEDS: SPIRONOLACTONE 12.5 MG TAB PO SCH (09:09)
[2020-10-09] MEDS: risperiDONE 0.5 MG TABLET PO SCH (09:11)
[2020-10-09] MEDS: PANTOprazole 40 MG TAB PO SCH (09:11)
[2020-10-09] MEDS: ASPIRIN 81 MG ECTAB PO SCH (09:12)
--- NOTE | 2020-10-09 10:14 | Hospitalist Progress Note ---
Date of Service October 09, 2020 Assessment & Plan (1) Non-compliance: ASSESSMENT AND PLAN: This is a 70-year-old male who is noncompliant with medication, who presented with shortness of breath. 1. Shortness of breath:Acute on chronic systolic CHF CTA of the chest unremarkable except for mild right pleural effusion. He has a history of congestive heart failure with EF of 15% to 20%. Supposed to be on Lasix and Aldactone, noncompliant with the medications. In the ER, he was given IV Lasix 40. Cardiology consulted, appreciate their input. Currently on PO lasix 80 mg daily. Cont. spironolactone. 2. History of atrial fibrillation, now in sinus w/ frequent ectopy. rate is under control, pt noncompliant with medication. ICMO, CAD Cardiology following. will start low dose metoprolol succinate now, ideally reintroduce ACEinh if BP allows in the future. Cont. ASA and atorvastatin. 3. History of chronic right leg lymphedema and chronic wounds. Recently was treated with Cipro and Amoxicillin for his pseudomonas and enterococcus. Recultured as there appeared to be some drainage - no growth. Wound care. 4. Hypothyroidism. Levothyroxine. 5. History of paranoid schizophrenia. Risperidone and Olanzapine. No hallucinations currently, Psychiatry consulted several times during previous admissions, however pt noncompliant w/ medications when out of the hospital (and sometimes also while int) -believing his medications "go bad in his apartment." Which seems to be the major issue for his clinical decline and frequent readm issions. DVT prophylaxis with Lovenox. 7. History of prolonged QT. Avoid QT prolonging drugs and follow the repeat EKG. 8. Disposition, Social service to help with discharge planning. Case management and palliative medicine both involved in the discharge planning and possible decision-makers assignments. It could help if people that he trusts are helping him with his medications as medication noncompliance seems to be the major part of his clinical decline and frequent readmissions. On 10/03 AM sylvie mccarthy was called, patient was somnolent, his BP was in the low 80s and he had just gotten his 500 ml bolus. His hands and feet were profoundly cyanotic. saline running wide open, but his BP was not coming up and he was bra dycardic. transferred him to PCU, but since he needed pressors and closer monitoring,discussed his care c ICU attending and moved him there. While there a central line was placed and he was started on Levophed. He was stabilized in the ICU. His code status was discussed at length by the ICU Dr and pt wants to remain a full code. Palliative medicine was consulted - pt wishes to remain full code, in the process of assigning decision-makers for the patient. 10/06 No improvement from yesterday, still weak, limited activity, Prognosis poor 10/07 Appears to be doing better but overall weak, prognosis remains poor, palliative medicine and case management involved in discharge planning and in progress of possible decision-maker for pt assignment 10/08 BP remains low and so up-titrating his cardiac meds is not an option at this time, overall pt feel better but remains weak, plan for [facility] to [facility] 10/09 BP improved metoprolol succinate started, pt ambulating, plan to [facility] Admission and Anticipated Discharge Date Admission Date: October 02, 2020 Subjective Patient is currently sitting up in bed, in no acute distress. He has been ambulating in hallways without much difficulty. Denies chest pain, shortness of breath, abdominal pain, nausea or vomiting. Blood pressure improved, metoprolol succinate started. Plan to [facility] to [facility]. Review of Systems Review of Systems: All systems reviewed & are unremarkable except as noted in HPI & below Constitutional: no fever and no chills Respiratory: no cough and no dyspnea Cardiovascular: no chest pain and no palpitations Gastrointestinal: no abdominal pain, no nausea and no vomiting Physical Exam Physical Exam: Gen- elderly male laying in bed in NAD,AAO x 3, NAD, Afebrile, thin, weak Head- NCAT, EOMI, Anicteric Sclera, No Posterior Pharyngeal Erythema Neck-Supple, No JVD Lungs-Clear to Auscultation Bilaterally, No Rales, No Rhonchi, No Wheezing Chest- regular w/ frequent ectopy, No Murmurs Abdomen- Soft, Bowel Sounds Present, Non Tender, Thin, Non Distended, No Rigidity, No Guarding Musculoskeletal-Full Range of Motion Bilaterally Extremities- RLE Lymphedema much improved, c scaly stasis Dermatitis, RLE wrapped Neuro- alert and oriented x3, Cranial Nerves II-XII grossly intact, moves extremities spontaneously Psych-Normal Mood, poor insight Results & Data Results & Data ([facility]) Vital Signs (Past 12 Hours) Vital Signs Temp Pulse Resp BP BP Pulse Ox 10/09/20 07:09 36.6 C 79 18 110/69 97 10/09/20 03:47 37.3 C 76 18 108/73 97 10/09/20 00:01 36.4 C L 86 20 115/70 98 Laboratory Results 10/09/20 Range/Units 06:43 Sodium 139 (136-145) mmol/L Potassium 3.6 (3.5-5.1) mmol/L Chloride 106 (98-107) mmol/L Carbon Dioxide 28 (21-32) mmol/L Anion Gap 5.0 (3-11) BUN 33 H (7-18) mg/dl Creatinine 1.12 (0.6-1.4) mg/dl Est Cr Clr Drug Dosing 50.9 ml/min Est GFR ( Amer) 77.8 Est GFR (Non-Af Amer) 67.1 BUN/Creatinine Ratio 29.8 H (10-20) Glucose 113 H (70-99) mg/dl Calcium 8.3 L (8.5-10.1) mg/dl Medications Administered Current Inpatient Medications Acetaminophen (Acetaminophen 325 Mg Tab) 650 mg PO Q4H PRN PRN Reason: Pain or Fever Stop: 10/31/20 08:50 Aspirin (Aspirin 81 Mg Ectab) 81 mg PO DAILY [facility] Stop: 10/31/20 08:59 Last Admin: 10/09/20 09:12 Dose: Not Given Documented by: Atorvastatin Calcium (Atorvastatin 40 Mg Tab) 80 mg PO QAM [facility] Stop: 10/31/20 08:59 Last Admin: 10/09/20 09:08 Dose: 20 mg Documented by: Furosemide (Furosemide 80 Mg Tab) 80 mg PO DAILY [facility] Stop: 11/05/20 09:29 Last Admin: 10/09/20 09:09 Dose: 80 mg Documented by: Heparin Sodium (Beef Lung) (Heparin 10 Unit/Ml 5 Ml Flush) 5 ml FLUSH PRN PRN PRN Reason: Flush Stop: 11/02/20 23:58 Ipratropium Kake (Ipratropium Kake Neb Soln 0.02% 2.5 Ml Vial) 0.5 mg INH Q4H PRN PRN Reason: SOB OR WHEEZING Stop: 10/31/20 08:50 Levalbuterol HCl (Levalbuterol Hcl 0.63 Mg/3 Ml Neb) 0.63 mg NEB Q4H PRN PRN Reason: Shortness Of Breath OR WHEEZIN Stop: 10/31/20 08:50 Levothyroxine Sodium (Levothyroxine Sodium 50 Mcg Tablet) 50 mcg PO DAILYBB [facility] Stop: 10/31/20 08:50 Last Admin: 10/09/20 05:58 Dose: 50 mcg Documented by: Nitroglycerin (Nitroglycerin Sl 0.4 Mg/Tab Tab) 0.4 mg SL UD PRN PRN Reason: Chest Pain Stop: 10/31/20 08:50 Olanzapine (Olanzapine 5 Mg Tablet) 5 mg PO HS [facility] Stop: 10/31/20 20:59 Last Admin: 10/08/20 20:39 Dose: 5 mg Documented by: Pantoprazole Sodium (Pantoprazole 40 Mg Tab) 40 mg PO QAM [facility] Stop: 11/03/20 08:59 Last Admin: 10/09/20 09:11 Dose: Not Given Documented by: Polyethylene Glycol (Polyethylene (Miralax) 17 Gm Pack) 17 gm PO DAILY PRN PRN Reason: Constipation Stop: 10/31/20 08:50 Risperidone (Risperidone 0.5 Mg Tablet) 0.5 mg PO BID [facility] Stop: 10/31/20 08:59 Last Admin: 10/09/20 09:11 Dose: Not Given Documented by: Spironolactone (Spironolactone 12.5 Mg Tab) 12.5 mg PO DAILY [facility] Stop: 10/31/20 08:59 Last Admin: 10/09/20 09:09 Dose: 12.5 mg Documented by: Tramadol HCl (Tramadol Hcl 50 Mg Tablet) 50 mg PO Q4H PRN PRN Reason: Pain Stop: 10/31/20 08:50 Last Admin: 10/08/20 20:39 Dose: 50 mg Documented by: Umeclidinium Kake (Umeclidinium Kake 62.5mcg/Blister 7 Puffs/Inhaler) 1 puffs INH DAILY [facility] Stop: 10/31/20 08:59 Last Admin: 10/09/20 09:07 Dose: 1 puffs Documented by:
[2020-10-09] MEDS ORDERED: METOPROLOL SUCC 25MG EXT REL TAB PO SCH (10:15)
--- NOTE | 2020-10-09 13:07 | Discharge Summary ---
Date of Service October 09, 2020 Admission HPI Per Admitting Provider This is a 70-year-old male with past medical history significant for ischemic cardiomyopathy, EF of 15% to 20%, severe mitral regurgitation, CAD status post stent, hypertension, history of paroxysmal atrial fibrillation, paranoid schizophrenia, past history of DVT, history of testicular cancer status post surgery and chemotherapy, past tobacco abuse, chronic anemia, baseline hemoglobin around 10-11, chronic lymphedema, hypothyroidism, history of chronic medication noncompliance, and chronic lower extremity wounds. Currently living in an apartment. Presents with shortness of breath on exertion. The patient has frequent hospitalizations and last admission was in July. At that time, got treated for CHF with his Lasix and discharged on p.o. Lasix 40 daily and also spironolactone 12.5 mg p.o. daily. Treated for pseudomonas and lower extremity wounds with ciprofloxacin. The patient says once he goes to his apartment, he takes medication for 1 week and then the medication stops working, does not take them. Chronic noncompliance is thought to be from his psychiatric issues. The patient says he is not going anywhere, he is just staying in his apartment. He gets food from the [employer]. Not exposed to any COVID patients. Says he is getting weak, has generalized pain, short of breath on exertion, on and off chest pains. This prompted him to come to the ER. In the ER, he is currently hemodynamically stable. Blood pressure is running okay. BNP 6400 Troponin is negative. CTA chest was unremarkable except for small right pleural effusion. The patient complains of some headache. Denies any blurred vision, no earache, no runny nose, no sore throat, no cough. Complains of nausea. No abdominal pain. Normal bowel and bladder movements. No hematuria or blood in the stools. He is not going to wound care, he wraps his own legs. He says he dressed it several days ago. Admission Exam Per Admitting Provider GENERAL: The patient is of moderate build, not in acute distress. VITAL SIGNS: Temperature 36.4, pulse 70, respiratory rate 18, blood pressure 126/97, oxygen 98% on room air. HEENT: Pupils are equal, round, and reactive to light. Oral mucosa moist. NECK: No JVD, no neck masses. CARDIOVASCULAR: S1, S2 heard, regular rate and rhythm, no murmur, no gallop. RESPIRATORY SYSTEM: Normal AP diameter. No accessory muscle use. No wheezing, no crackles. ABDOMEN: Soft, bowel sounds present, nontender. No distention. CENTRAL NERVOUS SYSTEM: Cranial nerves II-XII grossly intact. Nonfocal. EXTREMITIES: Chronic right lower extremity lymphedema and open superficial wounds with mild drainage seen. Principal Diagnosis Acute on chronic systolic heart failure Medication noncompliance Paranoid schizophrenia Discharge Exam Gen- elderly male laying in bed in NAD,AAO x 3, NAD, Afebrile, thin, weak Head- NCAT, EOMI, Anicteric Sclera, No Posterior Pharyngeal Erythema Neck-Supple, No JVD Lungs-Clear to Auscultation Bilaterally, No Rales, No Rhonchi, No Wheezing Chest- regular w/ frequent ectopy, No Murmurs Abdomen- Soft, Bowel Sounds Present, Non Tender, Thin, Non Distended, No Rigidity, No Guarding Musculoskeletal-Full Range of Motion Bilaterally Extremities- RLE Lymphedema much improved, c scaly stasis Dermatitis, RLE wrapped Neuro- alert and oriented x3, Cranial Nerves II-XII grossly intact, moves extremities spontaneously Psych-Normal Mood, poor insight Discharge Data Allergies Allergy/AdvReac Type Severity Reaction Status Date / Time horse dander Allergy Unknown Unknown Verified 10/01/20 00:22 tetanus toxoid, adsorbed Allergy Unknown Unknown Verified 10/01/20 00:22 Consultations 10/01/20 04:06 ED Decision to Admit Stat 10/01/20 08:51 Consult Cardiology Routine Consult Case Management - Discharge Planning Routine 10/03/20 16:52 Consult Palliative Care Routine 10/03/20 18:08 Consult Nephrology Routine Ordered Studies 10/01/20 01:12 CT angio chest PE protocol Urgent IMPRESSION: 1. No evidence of acute pulmonary embolism. Suboptimal evaluation of the lower lobe pulmonary arteries. 2. Cardiomegaly and coronary artery calcifications 3. Evidence of elevated right heart pressures 4. Iykza-ox-olywftby right pleural effusion 5. Right middle and lower lobe atelectatic changes 6.. Upper abdominal ascites 7. Azygous vein dilatation 10/03/20 09:59 US point of care ultrasound Routine Hospital Course (1) Non-compliance: ASSESSMENT AND PLAN: This is a 70-year-old male who is noncompliant with medication, who presented with shortness of breath. 1. Shortness of breath:Acute on chronic systolic CHF CTA of the chest unremarkable except for mild right pleural effusion. He has a history of congestive heart failure with EF of 15% to 20%. Supposed to be on Lasix and Aldactone, noncompliant with the medications. In the ER, he was given IV Lasix 40. Cardiology consulted, appreciate their input. Currently on PO lasix 80 mg daily. Cont. spironolactone. 2. History of atrial fibrillation, now in sinus w/ frequent ectopy. rate is under control, pt noncompliant with medication. ICMO, CAD Cardiology following. will start low dose metoprolol succinate now, ideally reintroduce ACEinh if BP allows in the future. Cont. ASA and atorvastatin. 3. History of chronic right leg lymphedema and chronic wounds. Recently was treated with Cipro and Amoxicillin for his pseudomonas and enterococcus. Recultured as there appeared to be some drainage - no growth. Wound care. 4. Hypothyroidism. Levothyroxine. 5. History of paranoid schizophrenia. Risperidone and Olanzapine. No hallucinations currently, Psychiatry consulted several times during previous admissions, however pt noncompliant w/ medications when out of the hospital (and sometimes also while int) -believing his medications "go bad in his apartment." Which seems to be the major issue for his clinical decline and frequent readmissions. DVT prophylaxis with Lovenox. 7. History of prolonged QT. Avoid QT prolonging drugs and follow the repeat EKG. 8. Disposition, Social service to help with discharge planning. Case management and palliative medicine both involved in the discharge planning and possible decision-makers assignments. It could help if people that he trusts are helping him with his medications as medication noncompliance seems to be the major part of his clinical decline and frequent readmissions. On 10/03 AM sylvie mccarthy was called, patient was somnolent, his BP was in the low 80s and he had just gotten his 500 ml bolus. His hands and feet were profoundly cyanotic. saline running wide open, but his BP was not coming up and he was bradycardic. transferred him to PCU, but since he needed pressors and closer monitoring,discussed his care c ICU attending and moved him there. While there a central line was placed and he was started on Levophed. He was stabilized in the ICU. His code status was discussed at length by the ICU Dr and pt wants to remain a full code. Palliative medicine was consulted - pt wishes to remain full code, in the process of assigning decision-makers for the patient. 10/06 No improvement from yesterday, still weak, limited activity, Prognosis poor 10/07 Appears to be doing better but overall weak, prognosis remains poor, palliative medicine and case management involved in discharge planning and in progress of possible decision-maker for pt assignment 10/08 BP remains low and so up-titrating his cardiac meds is not an option at this time, overall pt feel better but remains weak, plan for dc to [facility] 10/09 BP improved metoprolol succinate started, pt ambulating, plan to dc to [facility] Total Time Total Time Spent Total Time Spent (In Minutes): 40 Total Time Includes: Examination of the Patient, Discharge Planning, Medication Reconciliation and Communication With Other Providers Discharge Plan Discharge Items Patient Disposition: Transfer Inpatient Rehab Fac Reason For Visit: SOB Discharge Diagnosis: Acute on chronic systolic heart failure Medication noncompliance Paranoid schizophrenia Activity: Per Instructions section Non-emergency contact: Primary Care Provider and Data Integrity Analyst Call non-emergency contact if: you have any medication questions and your symptoms worsen Follow-up/Referrals: PCP,NO [Primary Care Provider] - Diet: Heart Healthy and Low Sodium (2gm) Addtl Attending Provider Instructions: It is crucial that you take your heart medications, including Lasix, spironolactone, metoprolol succinate, also continue aspirin and statin. It is also crucial that you take your psychiatric medications. You should follow-up closely with primary care physician or energy control officer after your discharge from [facility]. Pending Studies at Discharge: No Stand-Alone Forms: [facility] Skilled Items Patient informed of condition?: Yes DNR: No Discharge Level of Care: Acute rehab Communicable Disease: No Discharge Prognosis: Other Lines: None Urinary Catheter: No Medications and DC Order Prescriptions: New aspirin 81 mg Tablet,Delayed Release (Dr/Ec) 81 mg PO DAILY 30 Days Qty: 30 RF: 0 acetaminophen 325 mg Tablet 650 mg PO Q4H PRN (Reason: pain) 30 Days RF: 0 polyethylene glycol 3350 [Miralax] 17 gram Powder In Packet 17 g PO DAILY PRN (Reason: constipation) 30 Days RF: 0 olanzapine 5 mg Tablet 5 mg PO HS 30 Days Qty: 30 RF: 0 spironolactone 25 mg Tablet 12.5 mg PO DAILY 30 Days Qty: 15 RF: 0 risperidone 0.5 mg Tablet 0.5 mg PO BID 30 Days Qty: 60 RF: 0 furosemide 80 mg Tablet 80 mg PO DAILY 30 Days Qty: 30 RF: 0 metoprolol succinate 25 mg Tablet Extended Release 24 Hr 12.5 mg PO QAM 30 Days Qty: 15 RF: 0 atorvastatin 40 mg Tablet 80 mg PO QAM 30 Days Qty: 60 RF: 0 levothyroxine [Synthroid] 50 mcg Tablet 50 mcg PO DAILYBB 30 Days Qty: 30 RF: 0 Incruse Ellipta 62.5 mcg/actuation Blister With Device 1 inh inhalation DAILY 30 Days RF: 0 pantoprazole 40 mg Tablet,Delayed Release (Dr/Ec) 40 mg PO QAM 30 Days Qty: 30 RF: 0 No Action No Known Home Medications RF: 0 Discharge Orders: Discharge Order (Routine); Ordered 10/09/20 Ordered By: uJnaid Enciso Admission Data Admit Date/Time: 10/02/20 11:11 Attending Provider: Junaid Enciso Admit Provider: Jaun Sorensen Primary Care Provider: PCP,NO Other Providers: Jaun Sorensen ; Jenaro Carter ; Karley Dixon ; Harini Humphrey ; Arnold Britt ; [facility]
== END 2020-10-09 15:31 | DRG 291 ==
LOC: EDINP 22:37 → ED 22:37 → 2W 10-01 10:00 → SUATTDRO 10-02 11:11 → 2S 10-03 09:11 → 1E 10-03 09:21 → 2S 10-05 10:13

== ENCOUNTER 2020-12-07 22:49 | Inpatient (IN) ==
--- NOTE | 2020-12-07 23:33 | Emergency Department Note ---
Impression & Plan Acute on chronic congestive heart failure, Acute urinary retention ED Provider Note Name: LUZ MARINA MORALEZ Age: 70 Sex: M Arrives Via: Ambulance Informant: Patient, EMS ED Provider: Agustin Blackwell MD Chief Complaint: Shortness of breath Impression: Acute on chronic congestive heart failure Acute Urinary Retention Medical Decision Makin yr old male with COPD, CHF, CAD, ischemic cardiomyopathy, STEMI, schizophrenia, and DVT who was seen 36 hrs ago here with worsening shortness of breath consistent with CHF. Did have CTA chest at that time which did not r eveal clear evidence of PE at that time. Since getting home worsening shortness of breath and worsening lower abdominal pain. On exam he has diffuse crackles all lung celeste and appears overloaded by exam. exam reveals grossly edematous penis which is twisted on itself at foreskin. With untwisting this large UOP and patient does seem more comfortable. He is very anxious about all this though is also demanding pain medications (unclear what pain he wishes to control as states abdomen feels better). Given some IV ativan with good result. He was given IV lasic for failure. Labs unremarkable though BNP is increasing from yesterday despite IV lasix. Given history suspect here is element non- compliance though clearly he is overloaded at this time. He is short of breath enough that I do not feel disharging him at this time would be reasonable, though I will note that his sats are still good. Repeat Covid testing is negative. CXR with congestive failure and small right effusion which appears new from other day. EKG without ischemia and Trop wnl at this time. Prior Medical Record and Triage/Nursing Notes reviewed by Me Additional history obtained from chart Differentials:Reactive airway disease, pneumonia, pneumothorax, COPD, CHF, infe ctions, cardiac ischemia, pulmonary embolism, musculoskeletal, gastrointestinal, as well as other pathologies. Vital Signs: reviewed and remarkable for no significant abnormalities Interventions: Saline Lock, ativan IV, lasix IV, zofran 4mg IV Labs:Reviewed and remarkable for elevated BNP Imaging:X ray results are stated below per my interpretation: Chest: 1 view: Congestive failure, right small effusion EKG:Per My Interpretation: Indication SHOB: NSR 75 bpm, qtc 475, PAC noted. No Ischemia. Compared to EKG 12/06/20, no significant changes. Cardiac/Tele Monitoring: Cardiac Monitoring: An Order was placed for continuous cardiac monitoring. The monitor shows a rate of 70 with a normal sinus rhythm. Consults:Dr Tiana Menezes Hospitalist Plan: Disposition:Hospitalization. Condition: Good Prescriptions:none PDMP: n/a History of Present Illness:70 yr old male arrives for evaluation of shortness of breath. Patient with long history of COPD, CHF, CAD, ischemic cardiomyopathy, STEMI, schizophrenia, and DVT. He was seen 36 hours earlier and diagnosed with acute on chronic heart failure but as he was feeling better thus given IV Lasix and discharged. Since discharge shortness of breath worsening. Associated with increasing edema of legs, abdomen, penis and back. Notes shortness of breath with any exertion, even just getting out of her chair. With sitting still he feels a bit better. No improvement with IV lasix. Notes he has not been able to urinate normally the last few days due to edema in penis. Notes cough with shortness of breath but not productive. Denies fevers, chills, syncope, chest pain, back pain, abdominal pain, nausea, vomiting, nor other symptoms. ROS: See above HPI for pertinent positives & negatives. A total of 10 systems reviewed and were otherwise negative. Past Medical History:See Below Past Surgical History:See Below Family History:See Below Social History:See Below Home Medications:Lasix Allergies:tetanus toxoid, horse dander Vitals:Blood Pressure: 139/105, Pulse 85, RR 19, T 36.9C, O2 99% on RA Physical Exam: GENERAL: Patient is chronically unwell appearing and in moderate distress. Unkempt EYES: No scleral icterus, unremarkable pupils. ENT: Mucous membranes moist, no nasal congestion. NECK: No masses appreciated, nomeningismus, trachea is midline. RESPIRATORY: Dyspneic/tachypneic with diffuse crackles all lung celeste CARDIOVASCULAR: Regular rate and rhythm.No murmurs, rubs, gallops appreciated. GASTROINTESTINAL: Edema of lower abdomen. Abdomen soft, non-tender, no peritonitis.Bowel sounds positive.No masses appreciated. : Uncircumcised male with severely edematous penis which is twisted at the foreskin. I untwisted foreskin with large UOP at that time. BACK: Edema of lower back. No midline tenderness, no CVA tenderness EXTREMITIES: Large edema bilateral legs, right much larger than left with seeping wounds. Normal motion all extremities, no cyanosis NEUROLOGIC: Alert and oriented, no acute motor or sensory deficits, no focal weakness, cranial nerves grossly intact. SKIN: No rash, no jaundice, no diaphoresis. PSYCH: Appropriate GCS: 15 ED Course: Times/Reassessments: calmed down and feeling a bit better, still dyspnea with talking Agustin Blackwell MD Past Med/Surg History Medical History CAD (coronary artery disease) Cholecystitis, acute Chronic systolic CHF (congestive heart failure) History of DVT (deep vein thrombosis) History of pancreatitis History of testicular cancer History of tobacco abuse Homelessness HTN (hypertension) Hypertension Hyperthyroidism Ischemic cardiomyopathy Lymphedema of right lower extremity Mitral regurgitation Palliative care encounter Pleural effusion Schizophrenia STEMI (ST elevation myocardial infarction) Tricuspid regurgitation Surgical History Hx of heart artery stent Status post cardiac catheterization Family History Other Unknown family medical history Social History Smoking Status: Former smoker Number of Years Since Quit: 10; Second Hand Exposure: No; Hx Alcohol Use: No Hx Substance Use: No Preferred Language: Serbian Communication Ability: Effective Film Laboratory Technician Required: No Beliefs That Will Affect Care: None marital status: Single Current Living Situation: Alone Current Living Situation Comment: [facility] How many Children do You have: 0 Feels Safe at Home: Yes Assistive Devices: None Allergies Allergies Allergy/AdvReac Type Severity Reaction Status Date / Time horse dander Allergy Unknown Unknown Verified 12/08/20 00:18 tetanus toxoid, adsorbed Allergy Unknown Unknown Verified 12/08/20 00:18 Home Meds Previous Rx's Medication Instructions Recorded furosemide [Lasix] 80 mg PO DAILY #14 tab 12/06/20 Results & Data (ED) Vital Signs Vital Signs - 24 hr 12/07/20 23:01 12/07/20 23:05 12/08/20 01:09 Temperature 36.9 C Temperature Source Oral Pulse Rate 85 Pulse Rate [Bilateral Apical] 83 Respiratory Rate 19 16 Blood Pressure 139/105 H Blood Pressure [Right Arm] 137/98 Blood Pressure Mean 116 Blood Pressure Mean [Right Arm] 111 Blood Pressure Position Lying Pulse Oximetry 99 99 100 Oxygen Delivery Method Room Air Room Air Room Air Sepsis Recent Fever Within 48 Hours No Sepsis New/Unexplained Change in Mental Status N/A Sepsis Action Taken by Nursing No Action Required 12/08/20 02:20 12/08/20 03:27 12/08/20 04:01 Temperature Temperature Source Pulse Rate Pulse Rate [Bilateral Apical] 92 H 81 73 Respiratory Rate 20 20 20 Blood Pressure Blood Pressure [Right Arm] 160/87 H 131/100 105/87 Blood Pressure Mean Blood Pressure Mean [Right Arm] 111 110 93 Blood Pressure Position Pulse Oximetry 96 100 100 Oxygen Delivery Method Room Air Room Air Room Air Sepsis Recent Fever Within 48 Hours Sepsis New/Unexplained Change in Mental Status Sepsis Action Taken by Nursing Laboratory Data Result diagrams: 12/07/20 23:32 12/07/20 23:32 Lab Results 12/07/20 12/07/20 12/07/20 Range/Units 23:00 23:00 23:32 WBC (4.8-10.8) K/uL RBC (4.7-6.1) M/uL Hgb (14.0-18.0) g/dL Hct (42-52) % MCV (80-100) fL MCH (25-34) pg MCHC (32-36) g/dL RDW Std Deviation (36.4-46.3) fL RDW Coeff of Dante (11.5-14.5) % Plt Count (130-400) K/uL MPV (7.4-10.4) fL Immature Gran % (Auto) % Neut % (Auto) % Lymph % (Auto) % Bradford % (Auto) % Eos % (Auto) % Baso % (Auto) % Neut # (Auto) (1.4-6.5) K/uL Lymph # (Auto) (1.2-3.4) K/uL Bradford # (Auto) (0.11-0.59) K/uL Eos # (Auto) (0-0.5) K/uL Baso # (Auto) (0-0.2) K/uL Immature Gran # (Auto) (0.00-0.02) K/uL Absolute Nucleated RBC (0-0) K/uL Nucleated RBC % (auto) % Anisocytosis Ovalocytes Echinocytes PT (9.0-12.0) Seconds INR (0.9-1.1) Sodium 142 (136-145) mmol/L Potassium 4.0 (3.5-5.1) mmol/L Chloride 111 H (98-107) mmol/L Carbon Dioxide 19 L (21-32) mmol/L Anion Gap 11.0 (3-11) BUN 31 H (7-18) mg/dl Creatinine 1.35 (0.6-1.4) mg/dl Est Cr Clr Drug Dosing 50.7 ml/min Est GFR ( Amer) 62.1 Est GFR (Non-Af Amer) 53.6 BUN/Creatinine Ratio 22.9 H (10-20) Glucose 89 (70-99) mg/dl Calcium 8.9 (8.5-10.1) mg/dl Magnesium 2.0 (1.8-2.4) mg/dl Total Bilirubin 1.5 H (0.2-1) mg/dl Direct Bilirubin 0.6 H (0-0.2) mg/dl AST 16 (15-37) U/L ALT 19 (12-78) U/L Alkaline Phosphatase 138 H (45-117) U/L Troponin I 0.027 (0-0.045) ng/ml NT-Pro-B Natriuret Pep 23626 H (0-900) pg/ml Total Protein 7.8 (6.4-8.2) gm/dl Albumin 3.6 (3.4-5.0) gm/dl Lipase 101 (73-393) U/L Urine Color Urine Appearance (Clear) Urine pH (4.5-7.5) Ur Specific Lagrange (1.000-1.030) Urine Protein (Negative) Urine Glucose (UA) (Negative) Urine Ketones (Negative) Urine Blood (Negative) Urine Nitrite (Negative) Urine Bilirubin (Negative) Urine Urobilinogen (Negative) Ur Leukocyte Esterase (Negative) Urine WBC (Auto) (0-5) /hpf Urine RBC (Auto) (0-4) /hpf U Hyaline Cast (Auto) (0-5) /lpf U Epithel Cells (Auto) (0-5) /lpf Urine Bacteria (Auto) (Negative) COVID-19 Eval Order Covid19 IDNow [facility] SARS-CoV-2, RNA, NAAT NEGATIVE (NEGATIVE) 12/07/20 12/07/20 12/08/20 Range/Units 23:32 23:32 02:05 WBC 7.85 (4.8-10.8) K/uL RBC 4.26 L (4.7-6.1) M/uL Hgb 11.2 L (14.0-18.0) g/dL Hct 35.4 L (42-52) % MCV 83.1 (80-100) fL MCH 26.3 (25-34) pg MCHC 31.6 L (32-36) g/dL RDW Std Deviation 65.1 H (36.4-46.3) fL RDW Coeff of Dante 21.2 H (11.5-14.5) % Plt Count 194 (130-400) K/uL MPV 10.1 (7.4-10.4) fL Immature Gran % (Auto) 0.1 % Neut % (Auto) 85.3 % Lymph % (Auto) 12.6 % Bradford % (Auto) 2.0 % Eos % (Auto) 0.0 % Baso % (Auto) 0.0 % Neut # (Auto) 6.69 H (1.4-6.5) K/uL Lymph # (Auto) 0.99 L (1.2-3.4) K/uL Bradford # (Auto) 0.16 (0.11-0.59) K/uL Eos # (Auto) 0.00 (0-0.5) K/uL Baso # (Auto) 0.00 (0-0.2) K/uL Immature Gran # (Auto) 0.01 (0.00-0.02) K/uL Absolute Nucleated RBC 0.03 H (0-0) K/uL Nucleated RBC % (auto) 0.4 % Anisocytosis Present Ovalocytes 1+ Echinocytes 1+ PT 13.0 H (9.0-12.0) Seconds INR 1.2 H (0.9-1.1) Sodium (136-145) mmol/L Potassium (3.5-5.1) mmol/L Chloride (98-107) mmol/L Carbon Dioxide (21-32) mmol/L Anion Gap (3-11) BUN (7-18) mg/dl Creatinine (0.6-1.4) mg/dl Est Cr Clr Drug Dosing ml/min Est GFR ( Amer) Est GFR (Non-Af Amer) BUN/Creatinine Ratio (10-20) Glucose (70-99) mg/dl Calcium (8.5-10.1) mg/dl Magnesium (1.8-2.4) mg/dl Total Bilirubin (0.2-1) mg/dl Direct Bilirubin (0-0.2) mg/dl AST (15-37) U/L ALT (12-78) U/L Alkaline Phosphatase (45-117) U/L Troponin I (0-0.045) ng/ml NT-Pro-B Natriuret Pep (0-900) pg/ml Total Protein (6.4-8.2) gm/dl Albumin (3.4-5.0) gm/dl Lipase (73-393) U/L Urine Color Yellow Urine Appearance Clear (Clear) Urine pH 5.0 (4.5-7.5) Ur Specific [place] 1.015 (1.000-1.030) Urine Protein 1+ H (Negative) Urine Glucose (UA) Negative (Negative) Urine Ketones Negative (Negative) Urine Blood Negative (Negative) Urine Nitrite Negative (Negative) Urine Bilirubin Negative (Negative) Urine Urobilinogen Negative (Negative) Ur Leukocyte Esterase 1+ H (Negative) Urine WBC (Auto) 1-5 (0-5) /hpf Urine RBC (Auto) 0-4 (0-4) /hpf U Hyaline Cast (Auto) 1-5 (0-5) /lpf U Epithel Cells (Auto) 5-10 H (0-5) /lpf Urine Bacteria (Auto) Negative (Negative) COVID-19 Eval Order SARS-CoV-2, RNA, NAAT (NEGATIVE) Administered Medications Discontinued Medications Furosemide (Furosemide 40 Mg/4 Ml Vial) 40 mg IV NOW STA Stop: 12/08/20 00:17 Last Admin: 12/08/20 00:21 Dose: 40 mg Documented by: [id number] Lorazepam (Ativan) 1 mg in 2 mls @ 2 mls/min IV NOW STA Stop: 12/08/20 00:17 Last Admin: 12/08/20 00:21 Dose: 2 mls/min Documented by: [id number] Doxycycline Hyclate 100 mg/ (Dextrose) 110 mls @ 50 mls/hr IV NOW STA Stop: 12/08/20 04:25 Last Infusion: 12/08/20 04:44 Dose: 0 mls/hr Documented by: [id number] Admin: 12/08/20 02:35 Dose: 50 mls/hr Documented by: [id number] Metoprolol Tartrate (Metoprolol Tartrate 1 Mg/Ml Vial) 2.5 mg IV NOW STA Stop: 12/08/20 02:38 Last Admin: 12/08/20 03:28 Dose: 2.5 mg Documented by: [id number] Ondansetron HCl (Ondansetron Inj 2 Mg/Ml 2 Ml Vial) 4 mg IV NOW STA Stop: 12/08/20 00:37 Last Admin: 12/08/20 00:45 Dose: 4 mg Documented by: [id number] Discharge Plan Visit Data Chief Complaint: Shortness of Breath/Dyspnea Stated Complaint: SOB ED Provider: Agustin Blackwell Discharge Problem: Acute on chronic congestive heart failure, Acute urinary retention Forms [facility] Prescriptions: No Action furosemide [Lasix] 80 mg tablet 80 mg PO DAILY Qty: 14 RF: 0 Discharge Problem: Acute on chronic congestive heart failure Qualifiers: Heart failure type: diastolic Qualified Code(s): I50.33 - Acute on chronic diastolic (congestive) heart failure
[2020-12-07 23:41] LABS: Hematocrit (blood only) 35.4 % (42-52); Hemoglobin 11.2 g/dL (14.0-18.0); Mean Corpuscular Hemoglobin 26.3 pg (25-34); Mean Corpuscular Hgb Conc 31.6 g/dL (32-36); Mean Corpuscular Volume 83.1 fL (80-100); Mean Platelet Volume 10.1 fL (7.4-10.4); Nucleated RBC # (auto) 0.03 K/uL (0-0); Nucleated RBC % (auto) 0.4 %; Platelet Count 194 K/uL (130-400); RDW Coefficient of Variation 21.2 % (11.5-14.5); RDW Standard Deviation 65.1 fL (36.4-46.3); Red Blood Count 4.26 M/uL (4.7-6.1); White Blood Count 7.85 K/uL (4.8-10.8)
[2020-12-07 23:52] LABS: INR 1.2 (0.9-1.1)
[2020-12-07 23:57] LABS: Albumin Level 3.6 gm/dl (3.4-5.0); BUN Creatinine Ratio 22.9 (10-20); Bilirubin Direct 0.6 mg/dl (0-0.2); Calcium 8.9 mg/dl (8.5-10.1); Creatinine Clr Calc Pharmacy 50.7 ml/min; Est GFR (African American) 62.1; Est GFR (Non-African American) 53.6
[2020-12-08 00:02] LABS: Bilirubin,Total 1.5 mg/dl (0.2-1); Total Protein 7.8 gm/dl (6.4-8.2); Troponin I 0.027 ng/ml (0-0.045)
[2020-12-08] MEDS ORDERED: LORazepam 1 MG/2 ML VIAL IV STA (00:16)
[2020-12-08] MEDS ORDERED: FUROSEMIDE 40 MG/4 ML VIAL IV STA (00:16)
[2020-12-08 00:20] LABS: Anisocytosis Present; Echinocytes 1+; Immature Granulocytes # (auto) 0.01 K/uL (0.00-0.02); Immature Granulocytes % (auto) 0.1 %; Lymphocytes # (auto) 0.99 K/uL (1.2-3.4); Lymphocytes % (auto) 12.6 %; Monocytes # (auto) 0.16 K/uL (0.11-0.59); Neutrophils # (auto) 6.69 K/uL (1.4-6.5); Neutrophils % (auto) 85.3 %; Ovalocytes 1+
[2020-12-08] MEDS ORDERED: ONDANSETRON INJ 2 MG/ML 2 ML VIAL IV STA (00:36)
[2020-12-08] MEDS ORDERED: DOXYCYCLINE HYCLATE 100 MG in DEXTROSE 5% 100 ML IV STA (02:14)
--- NOTE | 2020-12-08 02:14 | History & Physical Report ---
Date of Service December 08, 2020 Assessment & Plan (1) Decompensated heart failure: Mild symptoms hx chronic systolic heart failure secondary to ischemic cardiomyopathy EF 20%, TTE 2019) Secondary to medication noncompliance, hx of paranoid schizophrenia RLE cellulitis, recurrent disease, hx lymphedema, no sepsis for now HTN, currently stable severe mitral regurgitation hx CAD status post stent hx PAF, patient NSR, poor candidate for home anticoagulation due to paranoid schizophrenia hx testicular CA sp surgery and chemotherapy chronic anemia, hemoglobin improved from baseline Hypothyroidism, recent TSH 20s, patient noncompliant with medication Functional disability, inability to care for self/take medications due to paranoia Past history DVT as per records Past tobacco abuse PCU facilitate home diuretic Rx Strict I/Os, daily weights, CHF education Doxycycline for cellulitis, wound care nurse consult Recheck TSH PT OT eval Social service RE discharge planning DVT prophylaxis. Lovenox subcu Full code Text document was generated using [employer] voice recognition software. It may contain grammatical or spelling errors. Kindly contact undersigned for clarification of any documentation item in question. History of Present Illness Chief Complaint: Shortness of breath on exertion, hurt all over as per records. Primary Care Provider: Dr. Vora History obtained from ER provider and records. Unable to obtain history from patient secondary to obtunded state post Ativan administration at the ER. Medical history significant for chronic systolic heart failure secondary to ischemic cardiomyopathy EF 15-20%, TTE 2019), severe mitral regurgitation, CAD status post stent, hypertension, hx PAF, paranoid schizophrenia, past hx DVT, hx testicular CA sp surgery and chemotherapy, past tobacco abuse, chronic anemia (baseline hemoglobin of 10-11), hypothyroidism, history chronic leg lymphedema, medication noncompliance. Recent confinement September 2020 for decompensated heart failure secondary to medication noncompliance. Recent ER visit 2 days ago for shortness of breath symptoms. Admits to noncompliance with home Lasix. Patient given Lasix at the ER for CHF. Subsequently discharged home with instructions to follow-up with PCP.. Patient persistently short of breath on exertion at home and hurting all over as per records. Upon arrival at the ER, patient given Lasix for CHF. Patient's penis noted to be edematous as per ER provider exam. Good urine output noted after manipulation at the ER. Patient currently obtunded post Ativan administration at the ER. Medical History as above Surgical History : Appendectomy, orchiectomy Family History : Heart disease Personal/Social history : Past tobacco abuse, no EtOH intake, disabled Allergies Allergies Allergy/AdvReac Type Severity Reaction Status Date / Time horse dander Allergy Unknown Unknown Verified 12/08/20 00:18 tetanus toxoid, adsorbed Allergy Unknown Unknown Verified 12/08/20 00:18 Home Medications Medication Instructions Recorded Confirmed Type furosemide [Lasix] 80 mg PO DAILY #14 tab 12/06/20 12/08/20 Rx Past Med/Surg History Medical History CAD (coronary artery disease) Cholecystitis, acute Chronic systolic CHF (congestive heart failure) History of DVT (deep vein thrombosis) History of pancreatitis History of testicular cancer History of tobacco abuse Homelessness HTN (hypertension) Hypertension Hyperthyroidism Ischemic cardiomyopathy Lymphedema of right lower extremity Mitral regurgitation Palliative care encounter Pleural effusion Schizophrenia STEMI (ST elevation myocardial infarction) Tricuspid regurgitation Surgical History Hx of heart artery stent Status post cardiac catheterization Family History Other Unknown family medical history Social History Smoking Status: Former smoker Number of Years Since Quit: 10; Second Hand Exposure: No; Do You Dip or Chew Tobacco: No; Tobacco Cessation Education Requested by Patient: No Hx Alcohol Use: No Hx Substance Use: No Preferred Language: Icelandic Communication Ability: Effective Hospitality Internship Required: No Beliefs That Will Affect Care: None marital status: Single Current Living Situation: Alone Current Living Situation Comment: Charissa Lees @ [facility]itions How many Children do You have: 0 Other Information That Helps Us Care for You: No Feels Safe at Home: Yes Safety Concerns: Feels Safe At This Time Assistive Devices: None Review of Systems Review of Systems: Could not be reliably obtained Physical Exam Physical Exam: GENERAL: Obtunded, unkempt, no respiratory distress SKIN: Pallor, warm HEENT: Pale palpebral conjunctivae, no ptosis, dry buccal mucosa NECK : Supple, no tenderness CHEST : Decreased breath sounds, no tenderness HEART : RRR, systolic murmur ABDOMEN: Some distention, no overt tenderness EXTREMITIES : RLE induration with dressing soaked with purulent drainage, no other conspicuous deformities noted NEUROLOGIC : Obtunded , no facial asymmetry, gait and stance not assessed Results & Data Results & Data ([facility]) Vital Signs (Past 12 Hours) Vital Signs Temp Pulse Pulse Resp BP BP Pulse Ox 12/08/20 01:09 83 16 137/98 100 12/07/20 23:05 99 12/07/20 23:01 36.9 C 85 19 139/105 H 99 Laboratory Results Laboratory Results WBC 7.85 K/uL (4.8-10.8) 12/07/20 23:32 RBC 4.26 M/uL (4.7-6.1) L 12/07/20 23:32 Hgb 11.2 g/dL (14.0-18.0) L 12/07/20 23:32 Hct 35.4 % (42-52) L 12/07/20 23:32 MCV 83.1 fL (80-100) 12/07/20 23:32 MCH 26.3 pg (25-34) 12/07/20 23:32 MCHC 31.6 g/dL (32-36) L 12/07/20 23:32 RDW Std Deviation 65.1 fL (36.4-46.3) H 12/07/20 23:32 RDW Coeff of Dante 21.2 % (11.5-14.5) H 12/07/20 23:32 Plt Count 194 K/uL (130-400) 12/07/20 23:32 MPV 10.1 fL (7.4-10.4) 12/07/20 23:32 Immature Gran % (Auto) 0.1 % 12/07/20 23:32 Neut % (Auto) 85.3 % 12/07/20 23:32 Lymph % (Auto) 12.6 % 12/07/20 23:32 [place] % (Auto) 2.0 % 12/07/20 23:32 Eos % (Auto) 0.0 % 12/07/20 23:32 Baso % (Auto) 0.0 % 12/07/20 23:32 Neut # (Auto) 6.69 K/uL (1.4-6.5) H 12/07/20 23:32 Lymph # (Auto) 0.99 K/uL (1.2-3.4) L 12/07/20 23:32 [place] # (Auto) 0.16 K/uL (0.11-0.59) 12/07/20 23:32 Eos # (Auto) 0.00 K/uL (0-0.5) 12/07/20 23:32 Baso # (Auto) 0.00 K/uL (0-0.2) 12/07/20 23:32 Immature Gran # (Auto) 0.01 K/uL (0.00-0.02) 12/07/20 23:32 Absolute Nucleated RBC 0.03 K/uL (0-0) H 12/07/20 23:32 Nucleated RBC % (auto) 0.4 % 12/07/20 23:32 Anisocytosis Present 12/07/20 23:32 Ovalocytes 1+ 12/07/20 23: Echinocytes 1+ 12/07/20 23:32 PT 13.0 Seconds (9.0-12.0) H 12/07/20 23:32 INR 1.2 (0.9-1.1) H 12/07/20 23:32 Sodium 142 mmol/L (136-145) 12/07/20 23:32 Potassium 4.0 mmol/L (3.5-5.1) 12/07/20 23:32 Chloride 111 mmol/L (98-107) H 12/07/20 23:32 Carbon Dioxide 19 mmol/L (21-32) L 12/07/20 23:32 Anion Gap 11.0 (3-11) 12/07/20 23:32 BUN 31 mg/dl (7-18) H 12/07/20 23:32 Creatinine 1.35 mg/dl (0.6-1.4) 12/07/20 23:32 Est Cr Clr Drug Dosing 50.7 ml/min 12/07/20 23:32 Est GFR ( Amer) 62.1 12/07/20 23:32 Est GFR (Non-Af Amer) 53.6 12/07/20 23:32 BUN/Creatinine Ratio 22.9 (10-20) H 12/07/20 23:32 Glucose 89 mg/dl (70-99) 12/07/20 23:32 Calcium 8.9 mg/dl (8.5-10.1) 12/07/20 23:32 Magnesium 2.0 mg/dl (1.8-2.4) 12/07/20 23:32 Total Bilirubin 1.5 mg/dl (0.2-1) H 12/07/20 23:32 Direct Bilirubin 0.6 mg/dl (0-0.2) H 12/07/20 23:32 AST 16 U/L (15-37) 12/07/20 23:32 ALT 19 U/L (12-78) 12/07/20 23:32 Alkaline Phosphatase 138 U/L (45-117) H 12/07/20 23:32 Troponin I 0.027 ng/ml (0-0.045) 12/07/20 23:32 NT-Pro-B Natriuret Pep 08457 pg/ml (0-900) H 12/07/20 23:32 Total Protein 7.8 gm/dl (6.4-8.2) 12/07/20 23:32 Albumin 3.6 gm/dl (3.4-5.0) 12/07/20 23:32 Lipase 101 U/L (73-393) 12/07/20 23:32 COVID-19 Eval [facility] 12/07/20 23:00 SARS-CoV-2, RNA, NAAT NEGATIVE (NEGATIVE) 12/07/20 23:00 Diagnostic Findings Chest x-ray as per my interpretation cardiomegaly, pleural effusion right EKG as per my interpretation : Rate 75, NSR, normal axis, T wave abnormalities inferior leads, low voltage
[2020-12-08 02:21] LABS: Appearance Urine Clear (Clear); Bacteria Urine Automated Negative (Negative); Bilirubin Urine Negative (Negative); Blood Urine Negative (Negative); Color Urine Yellow; Glucose Urine UA Negative (Negative); Ketones Urine Negative (Negative); Leukocyte Esterase Urine 1+ (Negative); Nitrite Urine Negative (Negative); Protein Urine 1+ (Negative); RBC Urine Automated 0-4 /hpf (0-4); Specific Gravity Urine 1.015 (1.000-1.030); Urobilinogen Urine Negative (Negative)
[2020-12-08] MEDS ORDERED: METOPROLOL TARTRATE 1 MG/ML VIAL IV STA (02:37)
[2020-12-08] MEDS ORDERED: ACETAMINOPHEN 325 MG TAB PO PRN (05:25)
[2020-12-08] MEDS ORDERED: PROMETHAZINE HCL 6.25 MG in SODIUM CHLORIDE 0.9% 50 ML IV PRN (05:25)
[2020-12-08] MEDS ORDERED: NITROGLYCERIN SL 0.4 MG/TAB TAB SL PRN (05:25)
[2020-12-08 06:46] LABS: Calcium 8.3 mg/dl (8.5-10.1); Creatinine Clr Calc Pharmacy 57.5 ml/min; Est GFR (African American) 72.3; Est GFR (Non-African American) 62.4; Potassium 3.8 mmol/L (3.5-5.1)
[2020-12-08 06:56] LABS: Thyroid Stimulating Hormone 9.8 uIu/ml (0.300-4.500)
--- NOTE | 2020-12-08 07:03 | XRay Report ---
XR chest 1V portable HISTORY: 70 years-old Male SHOB acute shortness of breath COMPARISON: Chest radiograph and CTA chest 12/06/2020 TECHNIQUE: Portable AP view of the chest FINDINGS: Moderate to marked enlargement of the cardiac silhouette redemonstrated. Calcified plaque the thoraci c aorta. Emphysema. No pneumothorax or overt pulmonary edema. Small right pleural effusion with mildl y improved aeration of the right lung base. Degenerative changes of the shoulders and spine. IMPRESSION: 1. Cardiomegaly without overt pulmonary edema. 2. Small right pleural effusion with mildly improved aeration of the right lung base. 3. Emphysema. ACT 112: Negative or not required by law. The above report was generated using voice recognition software. It may contain grammatical, syntax o r spelling errors. Electronically signed by: Shaun Dorantes M.D. 12/08/2020 7:02 AM
[2020-12-08] MEDS: ENOXAPARIN INJ 30 MG/0.3 ML SYR SQ SCH (10:15)
[2020-12-08] MEDS: traMADol HCL 50 MG TABLET PO PRN ×2 (13:02→22:19)
--- NOTE | 2020-12-08 16:21 | Hospitalist Progress Note ---
Date of Service December 08, 2020 Assessment & Plan (1) Acute on chronic congestive heart failure: 62-year-old male with history of ischemic cardiomyopathy, EF 15 to 20%, atrial fibrillation, chronic lymphedema of the right leg, paranoid schizophrenia presenting with shortness of breath. ACUTE ON CHRONIC SYSTOLIC CONGESTIVE HEART FAILURE HISTORY OF ISCHEMIC CARDIOMYOPATHY EF 15 TO 20% HISTORY OF CAD, STATUS POST STENT PLACEMENT --presents with mild CHF exacerbation secondary to nonadherence to Lasix --given Lasix IV 40 mg IV overnight -570 ml fluid balance so far --patient now reports improvement of his breathing --continue usual Lasix 80 mg p.o. daily monitor closely CHRONIC RIGHT LEG LYMPHEDEMA RIGHT LEG CELLULITIS --no sepsis --continue doxycycline p.o. day #1 --wound care consulted patient unable to observe proper care of his right leg, wound dressing found to be dirty, crusting ATRIAL FIBRILLATION --- currently in sinus rhythm good candidate for long-term anticoagulation secondary to poor adherence to medication, underlying psychiatric disorder SCHIZOPHRENIA --mood stable DVT prophylaxis Lovenox SC daily Disposition pending patient apparently lives in his own apartment Admission and Anticipated Discharge Date Admission Date: December 08, 2020 Subjective Follow-up for acute CHF exacerbation, right lower leg cellulitis, etc. 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 of Systems Review of Systems: All systems reviewed & are unremarkable except as noted in Subjective Physical Exam Physical Exam: General- oriented x 3, not in distress, speaks in sentences with no effort or accessory muscle use Head- atraumatic Eyes- PERRL, EOMI, anicteric ENT- oropharynx clear Neck- supple, mild JVD, no adenopathy, no thyromegaly; carotids +2/2, no bruits appreciated Lungs- clear to auscultation bilaterally, no rales/wheezes Heart- normal rate, regular rhythm; no murmur, no gallop, no rub appreciated Abdomen- normal bowel sounds, nondistended, soft, nontender, no masses or hepatosplenomegaly Extremities-very mild right lower extremity edema, with mild erythema, severe desquamation of the skin, no overt open wounds no calf tenderness; peripheral pulses intact Neuro- alert, oriented x 3; CN 2-12 grossly intact; motor 5/5 bilaterally;sensation 100% on all extremities; no other gross focal neurologic deficits Skin- warm & dry Results & Data Results & Data ([facility]) Vital Signs (Past 12 Hours) Vital Signs Temp Pulse Pulse Resp BP Pulse Ox Pulse Ox 12/08/20 15:46 36.4 C L 65 71 20 131/92 96 96 12/08/20 14:15 12/08/20 11:46 36.5 C 88 21 123/85 97 12/08/20 07:41 36.9 C 67 14 139/105 H 99 100 12/08/20 07:00 80 12/08/20 05:23 36.4 C L 79 24 130/98 100 12/08/20 04:58 92 H 20 105/87 96 Pulse Ox 12/08/20 15:46 12/08/20 14:15 100 12/08/20 11:46 12/08/20 07:41 12/08/20 07:00 12/08/20 05:23 12/08/20 04:58 Laboratory Results Laboratory Results - last 24 hr 12/07/20 12/07/20 12/07/20 23:00 23:00 23:32 WBC RBC Hgb Hct MCV MCH MCHC RDW Std Deviation RDW Coeff of Dante Plt Count MPV Immature Gran % (Auto) Neut % (Auto) Lymph % (Auto) Walker % (Auto) Eos % (Auto) Baso % (Auto) Neut # (Auto) Lymph # (Auto) Walker # (Auto) Eos # (Auto) Baso # (Auto) Immature Gran # (Auto) Absolute Nucleated RBC Nucleated RBC % (auto) Anisocytosis Ovalocytes Echinocytes PT INR Sodium 142 Potassium 4.0 Chloride 111 H Carbon Dioxide 19 L Anion Gap 11.0 BUN 31 H Creatinine 1.35 Est Cr Clr Drug Dosing 50.7 Est GFR ( Amer) 62.1 Est GFR (Non-Af Amer) 53.6 BUN/Creatinine Ratio 22.9 H Glucose 89 Fasting Glucose Calcium 8.9 Magnesium 2.0 Total Bilirubin 1.5 H Direct Bilirubin 0.6 H AST 16 ALT 19 Alkaline Phosphatase 138 H Troponin I 0.027 NT-Pro-B Natriuret Pep 66882 H Total Protein 7.8 Albumin 3.6 Lipase 101 TSH Urine Color Urine Appearance Urine pH Ur Specific [place] Urine Protein Urine Glucose (UA) Urine Ketones Urine Blood Urine Nitrite Urine Bilirubin Urine Urobilinogen Ur Leukocyte Esterase Urine WBC (Auto) Urine RBC (Auto) U Hyaline Cast (Auto) U Epithel Cells (Auto) Urine Bacteria (Auto) Nasal Screen MRSA (PCR) COVID-19 Eval [facility] SARS-CoV-2, RNA, NAAT NEGATIVE 12/07/20 12/07/20 12/08/20 23:32 23:32 02:05 WBC 7.85 RBC 4.26 L Hgb 11.2 L Hct 35.4 L MCV 83.1 MCH 26.3 MCHC 31.6 L RDW Std Deviation 65.1 H RDW Coeff of Dante 21.2 H Plt Count 194 MPV 10.1 Immature Gran % (Auto) 0.1 Neut % (Auto) 85.3 Lymph % (Auto) 12.6 Walker % (Auto) 2.0 Eos % (Auto) 0.0 Baso % (Auto) 0.0 Neut # (Auto) 6.69 H Lymph # (Auto) 0.99 L Walker # (Auto) 0.16 Eos # (Auto) 0.00 Baso # (Auto) 0.00 Immature Gran # (Auto) 0.01 Absolute Nucleated RBC 0.03 H Nucleated RBC % (auto) 0.4 Anisocytosis Present Ovalocytes 1+ Echinocytes 1+ PT 13.0 H INR 1.2 H Sodium Potassium Chloride Carbon Dioxide Anion Gap BUN Creatinine Est Cr Clr Drug Dosing Est GFR ( Amer) Est GFR (Non-Af Amer) BUN/Creatinine Ratio Glucose Fasting Glucose Calcium Magnesium Total Bilirubin Direct Bilirubin AST ALT Alkaline Phosphatase Troponin I NT-Pro-B Natriuret Pep Total Protein Albumin Lipase TSH Urine Color Yellow Urine Appearance Clear Urine pH 5.0 Ur Specific [place] 1.015 Urine Protein 1+ H Urine Glucose (UA) Negative Urine Ketones Negative Urine Blood Negative Urine Nitrite Negative Urine Bilirubin Negative Urine Urobilinogen Negative Ur Leukocyte Esterase 1+ H Urine WBC (Auto) 1-5 Urine RBC (Auto) 0-4 U Hyaline Cast (Auto) 1-5 U Epithel Cells (Auto) 5-10 H Urine Bacteria (Auto) Negative Nasal Screen MRSA (PCR) COVID-19 Eval Order SARS-CoV-2, RNA, NAAT 12/08/20 12/08/20 06:07 Unknown WBC RBC Hgb Hct MCV MCH MCHC RDW Std Deviation RDW Coeff of Dante Plt Count MPV Immature Gran % (Auto) Neut % (Auto) Lymph % (Auto) Walker % (Auto) Eos % (Auto) Baso % (Auto) Neut # (Auto) Lymph # (Auto) Walker # (Auto) Eos # (Auto) Baso # (Auto) Immature Gran # (Auto) Absolute Nucleated RBC Nucleated RBC % (auto) Anisocytosis Ovalocytes Echinocytes PT INR Sodium 143 Potassium 3.8 Chloride 115 H Carbon Dioxide 16 L Anion Gap 12.0 H BUN 32 H Creatinine 1.19 Est Cr Clr Drug Dosing 57.5 Est GFR ( Amer) 72.3 Est GFR (Non-Af Amer) 62.4 BUN/Creatinine Ratio Glucose Fasting Glucose 87 Calcium 8.3 L Magnesium Total Bilirubin Direct Bilirubin AST ALT Alkaline Phosphatase Troponin I NT-Pro-B Natriuret Pep Total Protein Albumin Lipase TSH 9.800 H Urine Color Urine Appearance Urine pH Ur Specific [place] Urine Protein Urine Glucose (UA) Urine Ketones Urine Blood Urine Nitrite Urine Bilirubin Urine Urobilinogen Ur Leukocyte Esterase Urine WBC (Auto) Urine RBC (Auto) U Hyaline Cast (Auto) U Epithel Cells (Auto) Urine Bacteria (Auto) Nasal Screen MRSA (PCR) Negative COVID-19 Eval Order SARS-CoV-2, RNA, NAAT (1) Acute on chronic congestive heart failure Heart failure type: diastolic Qualified Code(s): I50.33 - Acute on chronic diastolic (congestive) heart failure
[2020-12-08] MEDS: DOXYCYCLINE HYCLATE 100 MG CAP PO SCH (20:48)
[2020-12-08] MEDS: ONDANSETRON INJ 2 MG/ML 2 ML VIAL IV PRN (22:19)
[2020-12-09 06:17] LABS: Basophils # (auto) 0.01 K/uL (0-0.2); Basophils % (auto) 0.1 %; Eosinophils # (auto) 0.11 K/uL (0-0.5); Eosinophils % (auto) 1.5 %; Hematocrit (blood only) 34.7 % (42-52); Hemoglobin 10.6 g/dL (14.0-18.0); Immature Granulocytes # (auto) 0.01 K/uL (0.00-0.02); Immature Granulocytes % (auto) 0.1 %; Lymphocytes # (auto) 0.82 K/uL (1.2-3.4); Lymphocytes % (auto) 11.5 %; Mean Corpuscular Hemoglobin 25.5 pg (25-34); Mean Corpuscular Hgb Conc 30.5 g/dL (32-36); Mean Corpuscular Volume 83.6 fL (80-100); Mean Platelet Volume 10.1 fL (7.4-10.4); Monocytes # (auto) 0.69 K/uL (0.11-0.59); Monocytes % (auto) 9.7 %; Neutrophils # (auto) 5.51 K/uL (1.4-6.5); Neutrophils % (auto) 77.1 %; Platelet Count 153 K/uL (130-400); RDW Coefficient of Variation 21.1 % (11.5-14.5); RDW Standard Deviation 65.5 fL (36.4-46.3); Red Blood Count 4.15 M/uL (4.7-6.1); White Blood Count 7.15 K/uL (4.8-10.8)
--- NOTE | 2020-12-09 06:22 | Electrocardiogram Report ---
Test Reason : Blood Pressure : / mmHG Vent. Rate : 075 BPM Atrial Rate : 075 BPM P-R Int : 148 ms QRS Dur : 106 ms QT Int : 426 ms P-R-T Axes : 042 076 020 degrees QTc Int : 475 ms Poor data quality, interpretation may be adversely affected Sinus rhythm with Premature ventricular complexes Otherwise normal ECG When compared with ECG of 06-DEC-2020 04:24, Premature ventricular complexes are now Present Premature atrial complexes are no longer Present Confirmed by Godfrey Lechuga ([id number]) on 12/09/2020 6:22:10 AM Referred By: REFERRED SELF Confirmed By:Godfrey Lechuga
[2020-12-09 06:40] LABS: BUN Creatinine Ratio 30.6 (10-20); Calcium 8.4 mg/dl (8.5-10.1); Creatinine Clr Calc Pharmacy 53.9 ml/min; Est GFR (African American) 66.8; Est GFR (Non-African American) 57.7
[2020-12-09 06:51] LABS: Anisocytosis Present; Giant Platelets 1+; Ovalocytes 1+
[2020-12-09] MEDS: FUROSEMIDE 80 MG TAB PO SCH (09:07)
[2020-12-09] MEDS: DOXYCYCLINE HYCLATE 100 MG CAP PO SCH ×2 (09:09→20:30)
[2020-12-09] MEDS: ENOXAPARIN INJ 30 MG/0.3 ML SYR SQ SCH (11:07)
[2020-12-09] MEDS: traMADol HCL 50 MG TABLET PO PRN ×2 (11:08→23:58)
--- NOTE | 2020-12-09 15:49 | Hospitalist Progress Note ---
Date of Service December 09, 2020 Assessment & Plan (1) Acute on chronic systolic (congestive) heart failure: ACUTE ON CHRONIC SYSTOLIC CONGESTIVE HEART FAILURE HISTORY OF ISCHEMIC CARDIOMYOPATHY EF 15 TO 20% HISTORY OF CAD, STATUS POST STENT PLACEMENT --presents with mild CHF exacerbation secondary to nonadherence to Lasix --was given Lasix IV initially on 12/08 and is now compliant with his home PO dose as of this morning. He appears euvolemic and symptoms are greatly improved since admission. Cont with current medication therapy and monitor progress. Of note, patient states that he is fine at rest but symptomatic with any exertion, worse than baseline--however, he is refusing to ambulate for many different reasons. (2) Chronic cutaneous venous stasis ulcer: Chronic wound with some surrounding cellulitis, continues on doxycycline therapy with wound care consulted. Will review records regarding compliance with wound care followup as outpatient. Patient is higher risk for cellulitis because of chronic lymphedema in this extremity. (3) Cellulitis of right lower extremity: Doxy per plan as above. (4) Medical non-compliance: (5) CKD (chronic kidney disease), stage III: at baseline. (6) A-fib: Currently in sinus rhythm and rate is normal. Good candidate for long- term anticoagulation secondary to poor adherence to medication and underlying psychiatric disorder (7) Schizophrenia: stable, continues to have visions. Not on medication and has questionable ability to care for himself evidenced by crusted poorly cared for leg wound on arrival this hospitalization among other issues in the past. He has an apartment and is helped by system resources. Outpatient psychiatric follow-up care continuously recommended. (8) DVT prophylaxis: Lovenox Full Code Dispo-pending PT/OT recommendations. Would continue hospitalization until we ensure symptoms are controlled with ambulation. Chelsea Mosley DO [facility] Hospitalist Admission and Anticipated Discharge Date Admission Date: December 08, 2020 Subjective 70 yo noncompliant paranoid schizophrenic cardiac patient presented with s ymptoms of acute heart failure likely related to noncompliance with diuretic therapy. Mr. Masterson states that he currently doesn't like his apartment for various reasons. He feels that his left lower side of his body is "fat" (swollen) up into his scrotum area. There is chronic lymphedema present here. He feels his breathing has improved since admission and feels this is more related to Tramadol use as he states he has generalized pain. He reports feeling too weak to get out of bed and is hesitant to try. He is hesitant about discharge at this time for various reasons. He is tolerating PO and is currently compliant with lasix. Review of Systems Review of Systems: All systems reviewed & are unremarkable except as noted in Subjective Physical Exam Physical Exam: CONSTITUTIONAL: WNWD, vitals as above, generally well-appea ring EYES: normal conjunctivae, no scleral icterus ENT: external ear and nose normal, MMM, poor dentition RESPIRATORY: clear to auscultation bilaterally, no crackles, rales or wheezes, normal respiratory effort CARDIOVASCULAR: regular rate and rhythm, 3/6 EMELIA heard throughout precordium, no gallops or rubs, no JVD, no peripheral edema GASTROINTESTINAL: soft, nontender, nondistended, no guarding. MUSCULOSKELETAL: strength 5/5 throughout, head is normocephalic and atraumatic, neck supple, normal palpation of chest wall without tenderness SKIN: warm and dry, chronic woody appearance to skin of RLE with hardening of skin and swelling present. Small wound on anterior lower RLE is wrapped tightly with wound not examined today. NEUROLOGIC: No facial palsy, no dysarthria. CN 2-12 grossly intact, no sensory deficit, normal cognition, normal speech, no gross focal deficits. PSYCHIATRIC: alert and cooperative and answers questions appropriately but has a tendency to talk about hallucinations that don't exist except to him Results & Data Results & Data ([facility]) Vital Signs (Past 12 Hours) Vital Signs Temp Pulse Pulse Resp BP BP Pulse Ox 12/09/20 14:59 99 12/09/20 08:00 37 C 65 18 108/74 99 12/09/20 04:19 82 12 118/85 12/09/20 04:00 36.6 C 85 22 98 Laboratory Results Short CBC 12/09/20 Range/Units 05:42 WBC 7.15 (4.8-10.8) K/uL Hgb 10.6 L (14.0-18.0) g/dL Hct 34.7 L (42-52) % Plt Count 153 (130-400) K/uL BMP 12/09/20 05:42 Sodium 143 Potassium 4.0 Chloride 114 H Carbon Dioxide 22 BUN 39 H Creatinine 1.27 Glucose 79 Calcium 8.4 L Medications Administered Current Inpatient Medications Acetaminophen (Acetaminophen 325 Mg Tab) 325 mg PO Q6H PRN PRN Reason: Mild Pain Stop: 01/07/21 05:24 Doxycycline Hyclate (Doxycycline Hyclate 100 Mg Cap) 100 mg PO BID [facility] Stop: 12/15/20 20:59 Last Admin: 12/09/20 09:09 Dose: 100 mg Documented by: Enoxaparin Sodium (Enoxaparin Inj 30 Mg/0.3 Ml Syr) 30 mg SQ QAM [facility] Stop: 01/07/21 08:59 Last Admin: 12/09/20 11:07 Dose: Not Given Documented by: Furosemide (Furosemide 80 Mg Tab) 80 mg PO DAILY [facility] Stop: 01/08/21 08:59 Last Admin: 12/09/20 09:07 Dose: 80 mg Documented by: Promethazine HCl 6.25 mg/ (Sodium Chloride) 50.25 mls @ 201 mls/hr IV Q6H PRN PRN Reason: Nausea And Vomiting Stop: 01/07/21 05:24 Nitroglycerin (Nitroglycerin Sl 0.4 Mg/Tab Tab) 0.4 mg SL UD PRN PRN Reason: Chest Pain Stop: 01/07/21 05:24 Ondansetron HCl (Ondansetron Inj 2 Mg/Ml 2 Ml Vial) 4 mg IV Q6H PRN PRN Reason: Nausea Stop: 01/07/21 14:23 Last Admin: 12/08/20 22:19 Dose: 4 mg Documented by: Tramadol HCl (Tramadol Hcl 50 Mg Tablet) 25 mg PO Q4H PRN PRN Reason: Pain Stop: 01/07/21 05:24 Last Admin: 12/09/20 11:08 Dose: 25 mg Documented by: (1) A-fib Atrial fibrillation type: unspecified Qualified Code(s): I48.91 - Unspecified atrial fibrillation (2) Schizophrenia Schizophrenia type: unspecified Qualified Code(s): F20.9 - Schizophrenia, unspecified
[2020-12-10] MEDS: ENOXAPARIN INJ 30 MG/0.3 ML SYR SQ SCH (08:13)
[2020-12-10] MEDS: DOXYCYCLINE HYCLATE 100 MG CAP PO SCH ×2 (08:13→20:36)
[2020-12-10] MEDS: FUROSEMIDE 80 MG TAB PO SCH (08:13)
[2020-12-10] MEDS: traMADol HCL 50 MG TABLET PO PRN ×2 (15:33→22:02)
--- NOTE | 2020-12-10 16:25 | Hospitalist Progress Note ---
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 He appears euvolemic and symptoms are greatly improved since admission. Cont with current medication therapy and monitor progress. Of note, patient states that he is fine at rest but symptomatic with any exertion, worse than baseline--he was able to ambulate in the hallway with therapy and will continue to encourage him to move around. (2) Chronic cutaneous venous stasis ulcer: Chronic wound with some surrounding cellulitis, continues on doxycycline therapy with wound care consulted. He is at higher risk for cellulitis in this limb secondary to chronic lymphedema. He appears improved overall. Cont with short course of antibiotics. (3) Cellulitis of right lower extremity: Doxy per plan as above. (4) Medical non-compliance: This is difficult with patient's preconceived notions 2/2 mental health conditions/paranoia. (5) CKD (chronic kidney disease), stage III: at baseline. (6) A-fib: Currently in sinus rhythm and rate is normal. Poor candidate for long- term anticoagulation secondary to poor adherence to medication and underlying psychiatric disorder. No events on telemetry overnight. Transfer to medical floor. (7) Schizophrenia: stable, continues to have visions. Not on medication and has questionable ability to care for himself evidenced by crusted poorly cared for leg wound on arrival this hospitalization among other issues in the past. He has an apartment and is helped by system resources. Outpatient psychiatric follow-up care continuously recommended. (8) DVT prophylaxis: Lovenox Full Code Dispo-pending PT/OT recommendations. Would continue hospitalization until we ensure symptoms are controlled with ambulation. Plan to continue to encourage him to ambulate to improve his confidence in his abilities. He was requesting [facility] today for rehab at discharge. Will discuss with case management. Chelsea Mosley DO [facility] Hospitalist Admission and Anticipated Discharge Date Admission Date: December 08, 2020 Subjective 70 yo noncompliant paranoid schizophrenic cardiac patient presented with sympto ms of acute heart failure likely related to noncompliance with diuretic therapy. Mr. Masterson reports feeling improved today, but is still scared to go home. He states he is scared he will feel short of breath when he tries to cross his apartment. He reports his leg is appearing less red and improved overall, however, he has not seen it in 2 days as it has been wrapped. He feels his swelling in his right leg has gone down as he has been compliant with his diuretic and has been urinating successfully. He did ambulate with therapy a reported 80 feet in the hallway today. When I offered positive encouragement for this, he still expressed overall concerned that I would feel he was ready to go home yet. He did asked me for IV pain medicine describing he had pain all over and that he wanted pain medicine in preparation for getting up and feeling short of breath. This was denied. Otherwise tolerating p.o. and no other complaints at this time. Review of Systems Review of Systems: All systems reviewed & are unremarkable except as noted in Subjective Physical Exam 2 Physical Exam: CONSTITUTIONAL: WNWD, vitals as above, generally well- appearing EYES: normal conjunctivae, no scleral icterus ENT: external ear and nose normal, MMM, poor dentition RESPIRATORY: clear to auscultation bilaterally, no crackles, rales or wheezes, normal respiratory effort CARDIOVASCULAR: regular rate and rhythm, 3/6 EMELIA heard throughout precordium, no gallops or rubs, no JVD, no peripheral edema GASTROINTESTINAL: soft, nontender, nondistended, no guarding. MUSCULOSKELETAL: strength 5/5 throughout, head is normocephalic and atraumatic, neck supple, normal palpation of chest wall without tenderness SKIN: warm and dry, chronic woody appearance to skin of RLE with hardening of skin and swelling present. Small close wound on anterior RLE with scaliness to skin. No drainage present. Minimal erythema or warmth. NEUROLOGIC: No facial palsy, no dysarthria. CN 2-12 grossly intact, no sensory deficit, normal cognition, normal speech, no gross focal deficits. PSYCHIATRIC: alert and cooperative and answers questions appropriately but has a tendency to talk about hallucinations that don't exist except to him Results & Data Results & Data ([facility]) Vital Signs (Past 12 Hours) Vital Signs Temp Pulse Resp BP Pulse Ox 12/10/20 11:17 36.4 C L 64 18 127/86 97 01/21/21 07:23 36.5 C 64 20 124/84 98 Medications Administered Current Inpatient Medications Acetaminophen (Acetaminophen 325 Mg Tab) 325 mg PO Q6H PRN PRN Reason: Mild Pain Stop: 01/07/21 05:24 Doxycycline Hyclate (Doxycycline Hyclate 100 Mg Cap) 100 mg PO BID [facility] Stop: 12/15/20 20:59 Last Admin: 12/10/20 08:13 Dose: 100 mg Documented by: Enoxaparin Sodium (Enoxaparin Inj 30 Mg/0.3 Ml Syr) 30 mg SQ QAM [facility] Stop: 01/07/21 08:59 Last Admin: 12/10/20 08:13 Dose: 30 mg Documented by: Furosemide (Furosemide 80 Mg Tab) 80 mg PO DAILY [facility] Stop: 01/08/21 08:59 Last Admin: 12/10/20 08:13 Dose: 80 mg Documented by: Promethazine HCl 6.25 mg/ (Sodium Chloride) 50.25 mls @ 201 mls/hr IV Q6H PRN PRN Reason: Nausea And Vomiting Stop: 01/07/21 05:24 Nitroglycerin (Nitroglycerin Sl 0.4 Mg/Tab Tab) 0.4 mg SL UD PRN PRN Reason: Chest Pain Stop: 01/07/21 05:24 Ondansetron HCl (Ondansetron Inj 2 Mg/Ml 2 Ml Vial) 4 mg IV Q6H PRN PRN Reason: Nausea Stop: 01/07/21 14:23 Last Admin: 12/08/20 22:19 Dose: 4 mg Documented by: Tramadol HCl (Tramadol Hcl 50 Mg Tablet) 25 mg PO Q4H PRN PRN Reason: Pain Stop: 01/07/21 05:24 Last Admin: 12/10/20 15:33 Dose: 25 mg Documented by: (1) A-fib Atrial fibrillation type: unspecified Qualified Code(s): I48.91 - Unspecified atrial fibrillation (2) Schizophrenia Schizophrenia type: unspecified Qualified Code(s): F20.9 - Schizophrenia, unspecified
[2020-12-10] MEDS: ONDANSETRON INJ 2 MG/ML 2 ML VIAL IV PRN (22:02)
[2020-12-11] MEDS: FUROSEMIDE 80 MG TAB PO SCH (07:55)
[2020-12-11] MEDS: ENOXAPARIN INJ 30 MG/0.3 ML SYR SQ SCH (07:55)
[2020-12-11] MEDS: DOXYCYCLINE HYCLATE 100 MG CAP PO SCH ×2 (07:55→20:50)
[2020-12-11 09:22] LABS: BUN Creatinine Ratio 27.2 (10-20); Calcium 8.8 mg/dl (8.5-10.1); Creatinine Clr Calc Pharmacy 48.7 ml/min; Est GFR (African American) 62.1; Est GFR (Non-African American) 53.6; Magnesium 1.9 mg/dl (1.8-2.4); Potassium 3.5 mmol/L (3.5-5.1)
--- NOTE | 2020-12-11 15:40 | Hospitalist Progress Note ---
Date of Service December 11, 2020 Assessment & Plan (1) Acute on chronic systolic (congestive) heart failure: ACUTE ON CHRONIC SYSTOLIC CONGESTIVE HEART FAILURE HISTORY OF ISCHEMIC CARDIOMYOPATHY EF 15 TO 20% HISTORY OF CAD, STATUS POST STENT PLACEMENT --presents with mild CHF exacerbation secondary to nonadherence to Lasix --was given Lasix IV initially on 12/08 and was then switched back to home PO dose for next couple of days with continued diuresis. However, he appears to now have plateued and he still has decreased exercise tolerance that is not at his baseline and persistent swelling that bothers him. Increase Lasix to 40 IV BID. --chronic Ef 20%. Restarted spironolactone, Toprol XL, no ACEI/entresto in setting of acute heart failure. (2) Chronic cutaneous venous stasis ulcer: Chronic closed wound with some surrounding cellulitis, continues on doxycycline therapy with wound care consulted. He is at higher risk for cellulitis in this limb secondary to chronic lymphedema. He appears improved overall. Cont with short course of antibiotics. (3) Cellulitis of right lower extremity: Doxy per plan as above. (4) Medical non-compliance: This is difficult with patient's preconceived notions 2/2 mental health conditions/paranoia. He came in off many of his medications which I discussed with him today. He explained that he was confused why he wasn't on those medications and that meds were "not a threat" to him. Restarted home regimen from prior notes. (5) CKD (chronic kidney disease), stage III: at baseline. (6) A-fib: Currently in sinus rhythm and rate is normal. Poor candidate for long- term anticoagulation secondary to poor adherence to medication and underlying psychiatric disorder. (7) Schizophrenia: stable, Not on medication and has questionable ability to care for himself evidenced by crusted poorly cared for leg wound on arrival this hospitalization among other issues in the past. He has an apartment and is helped by system resources. Outpatient psychiatric follow-up care continuously recommended. (8) Mitral regurgitation: murmur heard on exam. Has known mild MR and mod TR in setting of LV EF 20% per last echo Sep 2020. Will continue to pursue diuresis but if no improvement will consider repeat echo to evaluate for worsening valvulopathy. (9) CAD (coronary artery disease): chronic, stable. Stents in place from 2018. Restarted Toprol, ASA 81 and Lipitor. (10) Hypothyroidism: Elevated TSH on admission to 9 with known h/o hypothyroidism and noncompliance with levothyroxine. With his permission today, this was restarted with first dose scheduled for am. Repeat TSH in 6-8 weeks as outpatient. (11) DVT prophylaxis: Lovenox Full Code Dispo-pending PT/OT recommendations. Would continue hospitalization until we ensure symptoms are controlled with ambulation. Plan to continue to encourage h im to ambulate to improve his confidence in his abilities. He was requesting [facility] today for rehab at discharge. Will discuss with case management. Chelsea Mosley DO [facility] Hospitalist Admission and Anticipated Discharge Date Admission Date: December 08, 2020 Subjective 70 yo M admitted with worsening dyspnea on exertion -still reporting dyspnea with exertion -no SOB at rest -baseline exercise tolerance is good and better than current state -he doesn't feel as though his swelling has improved much today -he is fine with restarting medications for heart failure and CAD that he was taking before despite a h/o noncompliance for various reasons. -he is fine with intravenous lasix again now. -denies chest pain or other issues -he is working to fluid restrict Review of Systems Review of Systems: All systems reviewed & are unremarkable except as noted in Subjective Physical Exam Physical Exam: CONSTITUTIONAL: WNWD, vitals as above, generally well- appearing EYES: normal conjunctivae, no scleral icterus ENT: external ear and nose normal, MMM, poor dentition RESPIRATORY: clear to auscultation bilaterally, no crackles, rales or wheezes, normal respiratory effort CARDIOVASCULAR: regular rate and rhythm, 3/6 EMELIA heard throughout precordium, no gallops or rubs, no JVD, no peripheral edema GASTROINTESTINAL: soft, nontender, nondistended, no guarding. MUSCULOSKELETAL: strength 5/5 throughout, head is normocephalic and atraumatic, neck supple, normal palpation of chest wall without tenderness SKIN: warm and dry, chronic woody appearance to skin of RLE with hardening of skin and swelling present. Small close wound on anterior RLE with scaliness to skin. No drainage present. Minimal erythema or warmth. NEUROLOGIC: No facial palsy, no dysarthria. CN 2-12 grossly intact, no sensory deficit, normal cognition, normal speech, no gross focal deficits. PSYCHIATRIC: alert and cooperative and answers questions appropriately Results & Data Results & Data ([facility]) Vital Signs (Past 12 Hours) Vital Signs Temp Pulse Resp BP Pulse Ox 12/11/20 15:09 36.6 C 66 18 114/80 98 12/11/20 07:34 36.4 C L 79 18 128/87 98 Laboratory Results [facility] 12/11/20 08:50 Sodium 143 Potassium 3.5 Chloride 110 H Carbon Dioxide 25 BUN 37 H Creatinine 1.35 Glucose 85 Calcium 8.8 Medications Administered Current Inpatient Medications Acetaminophen (Acetaminophen 325 Mg Tab) 325 mg PO Q6H PRN PRN Reason: Mild Pain Stop: 01/07/21 05:24 Doxycycline Hyclate (Doxycycline Hyclate 100 Mg Cap) 100 mg PO BID [facility] Stop: 12/15/20 20:59 Last Admin: 12/11/20 07:55 Dose: 100 mg Documented by: Enoxaparin Sodium (Enoxaparin Inj 30 Mg/0.3 Ml Syr) 30 mg SQ QAM [facility] Stop: 01/07/21 08:59 Last Admin: 12/11/20 07:55 Dose: 30 mg Documented by: Furosemide (Furosemide 80 Mg Tab) 80 mg PO DAILY [facility] Stop: 01/08/21 08:59 Last Admin: 12/11/20 07:55 Dose: 80 mg Documented by: Nitroglycerin (Nitroglycerin Sl 0.4 Mg/Tab Tab) 0.4 mg SL UD PRN PRN Reason: Chest Pain Stop: 01/07/21 05:24 Ondansetron HCl (Ondansetron Inj 2 Mg/Ml 2 Ml Vial) 4 mg IV Q6H PRN PRN Reason: Nausea Stop: 01/07/21 14:23 Last Admin: 12/10/20 22:02 Dose: 4 mg Documented by: Tramadol HCl (Tramadol Hcl 50 Mg Tablet) 25 mg PO Q4H PRN PRN Reason: Pain Stop: 01/07/21 05:24 Last Admin: 12/10/20 22:02 Dose: 25 mg Documented by: (1) A-fib Atrial fibrillation type: unspecified Qualified Code(s): I48.91 - Unspecified atrial fibrillation (2) Schizophrenia Schizophrenia type: unspecified Qualified Code(s): F20.9 - Schizophrenia, unspecified
[2020-12-11] MEDS: FUROSEMIDE 40 MG in SYRINGE 0 ML IV SCH (17:22)
[2020-12-11] MEDS ORDERED: ATORVASTATIN 40 MG TAB PO SCH (21:00)
[2020-12-11] MEDS: ATORVASTATIN 20 MG TAB PO SCH (21:28)
[2020-12-12] MEDS: LEVOTHYROXINE SODIUM 50 MCG TABLET PO SCH (05:56)
[2020-12-12] MEDS: ASPIRIN 81 MG ECTAB PO SCH (07:35)
[2020-12-12] MEDS: FUROSEMIDE 40 MG in SYRINGE 0 ML IV SCH (07:36)
[2020-12-12] MEDS: SPIRONOLACTONE 12.5 MG TAB PO SCH (07:36)
[2020-12-12] MEDS: ENOXAPARIN INJ 30 MG/0.3 ML SYR SQ SCH (07:36)
[2020-12-12] MEDS: METOPROLOL SUCC 25MG EXT REL TAB PO SCH (07:37)
[2020-12-12] MEDS: DOXYCYCLINE HYCLATE 100 MG CAP PO SCH ×2 (07:38→20:34)
[2020-12-12 08:16] LABS: BUN Creatinine Ratio 33.3 (10-20); Calcium 8.4 mg/dl (8.5-10.1); Creatinine Clr Calc Pharmacy 53.4 ml/min; Est GFR (African American) 69.5; Est GFR (Non-African American) 59.9; Magnesium 1.8 mg/dl (1.8-2.4); Potassium 3.6 mmol/L (3.5-5.1)
--- NOTE | 2020-12-12 14:47 | Hospitalist Progress Note ---
Date of Service December 12, 2020 Assessment & Plan (1) Acute on chronic systolic (congestive) heart failure: ACUTE ON CHRONIC SYSTOLIC CONGESTIVE HEART FAILURE HISTORY OF ISCHEMIC CARDIOMYOPATHY EF 15 TO 20% HISTORY OF CAD, STATUS POST STENT PLACEMENT --presents with mild CHF exacerbation secondary to nonadherence to Lasix --was given Lasix IV initially on 12/08 and was then switched back to home PO dose for next couple of days with continued diuresis. -He plateaued and was switched back to 40 IV BID dosing. Good result overnight, hold afternoon dose today. Liberalized fluid restriction based on patient request. Cont low salt diet and daily standing weights. --chronic Ef 20%. Restarted spironolactone, Toprol XL, no ACEI/entresto in setting of acute heart failure. (2) Chronic cutaneous venous stasis ulcer: Chronic closed wound with some surrounding cellulitis, continues on doxycycline therapy with wound care consulted. He is at higher risk for cellulitis in this limb secondary to chronic lymphedema. He appears improved overall. Cont with short course of antibiotics. (3) Cellulitis of right lower extremity: Doxy per plan as above. (4) Medical non-compliance: This is difficult with patient's preconceived notions 2/2 mental health conditions/paranoia. He came in off many of his medications which I discussed with him today. He explained that he was confused why he wasn't on those medications and that meds were "not a threat" to him. Restarted home regimen from prior notes. (5) CKD (chronic kidney disease), stage III: at baseline. (6) A-fib: Currently in sinus rhythm and rate is normal. Poor candidate for long- term anticoagulation secondary to poor adherence to medication and underlying psychiatric disorder. (7) Schizophrenia: stable, Not on medication and has questionable ability to care for himself evidenced by crusted poorly cared for leg wound on arrival this hospitalization among other issues in the past. He has an apartment and is helped by system resources. Outpatient psychiatric follow-up care continuously recommended. (8) Mitral regurgitation: murmur heard on exam. Has known mild MR and mod TR in setting of LV EF 20% per last echo Sep 2020. Will continue to pursue diuresis but if no improvement will consider repeat echo to evaluate for worsening valvulopathy. Looking improved today, and he reports feeling better at this time. Encouraged ambulation with assistance later today and discussed this with his primary nurse. (9) CAD (coronary artery disease): chronic, stable. Stents in place from 2019. Restarted Toprol, ASA 81 and Lipitor. (10) Hypothyroidism: Elevated TSH on admission to with known h/o hypothyroidism and noncompl iance with levothyroxine. Synthroid restarted. Repeat TSH in 6-8 weeks as outpatient. (11) DVT prophylaxis: Lovenox Full Code Dispo-pending PT/OT recommendations. Would continue hospitalization until we ensure symptoms are controlled with ambulation. Plan to continue to encourage him to ambulate to improve his confidence in his abilities. [facility]ated Discharge Date Admission Date: December 08, 2020 Subjective 70 yo M admitted with worsening dyspnea on exertion -still reporting dyspnea with exertion -no SOB at rest -feels the swelling is improving -2.2L out net overnight Review of Systems Review of Systems: All systems reviewed & are unremarkable except as noted in Subjective Physical Exam Physical Exam: CONSTITUTIONAL: WNWD, vitals as above, generally well- appearing EYES: normal conjunctivae, no scleral icterus ENT: external ear and nose normal, MMM, poor dentition RESPIRATORY: clear to auscultation bilaterally, no crackles, rales or wheezes, normal respiratory effort CARDIOVASCULAR: regular rate and rhythm, 3/6 EMELIA heard throughout precordium, no gallops or rubs, no JVD, no peripheral edema GASTROINTESTINAL: soft, nontender, nondistended, no guarding. MUSCULOSKELETAL: strength 5/5 throughout, head is normocephalic and atraumatic, neck supple, normal palpation of chest wall without tenderness SKIN: warm and dry, chronic woody appearance to skin of RLE with hardening of skin and swelling present. Small close wound on anterior RLE with scaliness to skin. No drainage present. Minimal erythema or warmth. NEUROLOGIC: No facial palsy, no dysarthria. CN 2-12 grossly intact, no sensory deficit, normal cognition, normal speech, no gross focal deficits. PSYCHIATRIC: alert and cooperative and answers questions appropriately Results & Data Results & Data ([facility]) Vital Signs (Past 12 Hours) Vital Signs Temp Pulse Resp BP Pulse Ox Pulse Ox 12/12/20 11:29 36.6 C 67 20 108/67 98 12/12/20 10:04 98 12/12/20 08:00 36.5 C 90 18 121/74 96 Laboratory Results [facility] 12/12/20 07:25 Sodium 143 Potassium 3.6 Chloride 109 H Carbon Dioxide 28 BUN 41 H Creatinine 1.23 Glucose 78 Calcium 8.4 L Medications Administered Current Inpatient Medications Acetaminophen (Acetaminophen 325 Mg Tab) 325 mg PO Q6H PRN PRN Reason: Mild Pain Stop: 01/07/21 05:24 Aspirin (Aspirin 81 Mg Ectab) [facility] [place] Stop: 01/11/21 08:59 Last Admin: 12/12/20 07:35 Dose: Not Given Documented by: Atorvastatin Calcium (Atorvastatin 20 Mg Tab) 20 mg PO HS [facility] Stop: 01/10/21 21:14 Last Admin: 12/11/20 21:28 Dose: Not Given Documented by: Doxycycline Hyclate (Doxycycline Hyclate 100 Mg Cap) 100 mg PO BID [facility] Stop: 12/15/20 20:59 Last Admin: 12/12/20 07:38 Dose: 100 mg Documented by: Enoxaparin Sodium (Enoxaparin Inj 30 Mg/0.3 Ml Syr) 30 [facility] [place] Stop: 01/07/21 08:59 Last Admin: 12/12/20 07:36 Dose: Not Given Documented by: Furosemide (Furosemide 80 Mg Tab) 80 mg PO DAILY [facility] Stop: 01/08/21 08:59 Last Admin: 12/11/20 07:55 Dose: 80 mg Documented by: Furosemide 40 mg/ Syringe 4 mls @ 4 mls/min IV DAILY [facility] Stop: 01/12/21 08:59 Levothyroxine Sodium (Levothyroxine Sodium 50 Mcg Tablet) 50 mcg PO DAILYBB [facility] Stop: 01/11/21 06:29 Last Admin: 12/12/20 05:56 Dose: 50 mcg Documented by: Metoprolol Succinate (Metoprolol Succ 25mg Ext Rel Tab) 12.5 mg PO QAM [facility] Stop: 01/11/21 08:59 Last Admin: 12/12/20 07:37 Dose: 12.5 mg Documented by: Nitroglycerin (Nitroglycerin Sl 0.4 Mg/Tab Tab) 0.4 mg SL UD PRN PRN Reason: Chest Pain Stop: 01/07/21 05:24 Ondansetron HCl (Ondansetron Inj 2 Mg/Ml 2 Ml Vial) 4 mg IV Q6H PRN PRN Reason: Nausea Stop: 01/07/21 14:23 Last Admin: 12/10/20 22:02 Dose: 4 mg Documented by: Spironolactone (Spironolactone 12.5 Mg Tab) 12.5 mg PO DAILY [facility] Stop: 01/11/21 08:59 Last Admin: 12/12/20 07:36 Dose: 12.5 mg Documented by: Tramadol HCl (Tramadol Hcl 50 Mg Tablet) 25 mg PO Q4H PRN PRN Reason: Pain Stop: 01/07/21 05:24 Last Admin: 12/10/20 22:02 Dose: 25 mg Documented by: (1) A-fib Atrial fibrillation type: unspecified Qualified Code(s): I48.91 - Unspecified atrial fibrillation (2) Schizophrenia Schizophrenia type: unspecified Qualified Code(s): F20.9 - Schizophrenia, unspecified
[2020-12-12] MEDS: ATORVASTATIN 20 MG TAB PO SCH (20:34)
[2020-12-12] MEDS: traMADol HCL 50 MG TABLET PO PRN (21:33)
[2020-12-13] MEDS: LEVOTHYROXINE SODIUM 50 MCG TABLET PO SCH (06:32)
[2020-12-13] MEDS: ASPIRIN 81 MG ECTAB PO SCH (07:40)
[2020-12-13] MEDS: ENOXAPARIN INJ 30 MG/0.3 ML SYR SQ SCH (07:41)
[2020-12-13] MEDS: SPIRONOLACTONE 12.5 MG TAB PO SCH (07:44)
[2020-12-13] MEDS: METOPROLOL SUCC 25MG EXT REL TAB PO SCH (07:44)
[2020-12-13] MEDS: DOXYCYCLINE HYCLATE 100 MG CAP PO SCH ×2 (07:45→20:11)
[2020-12-13] MEDS ORDERED: FUROSEMIDE 40 MG in SYRINGE 0 ML IV SCH ×2 (09:00→17:00)
[2020-12-13 09:35] LABS: BUN Creatinine Ratio 30.4 (10-20); Calcium 8.2 mg/dl (8.5-10.1); Creatinine Clr Calc Pharmacy 49.7 ml/min; Est GFR (African American) 70.2; Est GFR (Non-African American) 60.5; Potassium 3.3 mmol/L (3.5-5.1)
[2020-12-13] MEDS ORDERED: POTASSIUM CHLORIDE PWD 20 MEQ PACK PO ONE ×2 (09:43→20:33)
--- NOTE | 2020-12-13 16:57 | Hospitalist Progress Note ---
Date of Service December 13, 2020 Assessment & Plan (1) Acute on chronic systolic (congestive) heart failure: ACUTE ON CHRONIC SYSTOLIC CONGESTIVE HEART FAILURE HISTORY OF ISCHEMIC CARDIOMYOPATHY EF 15 TO 20% HISTORY OF CAD, STATUS POST STENT PLACEMENT --presents with mild CHF exacerbation secondary to nonadherence to Lasix --was given Lasix IV initially on 12/08 and was then switched back to home PO dose for next couple of days with continued diuresis. -He plateaued and was switched back to 40 IV BID dosing. Good result overnight, hold afternoon dose today. Liberalized fluid restriction based on patient request. Cont low salt diet and daily standing weights. --extra dose of IV lasix given today with potassium supplementation. caution as now back on spironolactone --convert back to PO dosing in am. if still with ambulatory difficulties, may consider rehab as an option but would defer to PT and OT therapist recommendations on that. --chronic Ef 20%. Restarted spironolactone, Toprol XL, no ACEI/entresto in setting of acute heart failure. (2) Chronic cutaneous venous stasis ulcer: Chronic closed wound with some surrounding cellulitis which has resolved. Stop doxycycline therapy. Skin is scaly and chronic-could use chronic long-term professional wound care follow-up as outpatient. (3) Cellulitis of right lower extremity: per plan as above. (4) Medical non-compliance: This is difficult with patient's preconceived notions 2/2 mental health conditions/paranoia. He came in off many of his medications which I discussed with him today. He explained that he was confused why he wasn't on those medications and that meds were "not a threat" to him. Restarted home regimen from prior notes and he is doing well on all of these for now. (5) CKD (chronic kidney disease), stage III: at baseline. (6) A-fib: Currently in sinus rhythm and rate is normal. Poor candidate for long- term anticoagulation secondary to poor adherence to medication and underlying psychiatric disorder. (7) Schizophrenia: stable, Not on medication and has questionable ability to care for himself evidenced by crusted poorly cared for leg wound on arrival this hospitalization among other issues in the past. He has an apartment and is helped by system resources. Outpatient psychiatric follow-up care continuously recommended. (8) Mitral regurgitation: murmur heard on exam. Has known mild MR and mod TR in setting of LV EF 20% per last echo Sep 2020. Considered repeat echo to evaluate for worsening valvulopathy, however, he is improved wtih diuresis. Cont ambulation efforts. (9) CAD (coronary artery disease): chronic, stable. Stents in place from 2019. Restarted Toprol, ASA 81 and Lipitor. (10) Hypothyroidism: Elevated TSH on admission to with known h/o hypothyroidism and noncompliance with levothyroxine. Synthroid restarted. Repeat TSH in 6-8 weeks as outpatient. (11) DVT prophylaxis: Lovenox Full Code Dispo-pending PT/OT recommendations which are recommending return home at this time. Patient still feeling questionable about this. Continue to encourage ambulation frequently. Chelsea Mosley DO [facility] Hospitalist Admission and Anticipated Discharge Date Admission Date: December 08, 2020 Subjective ccL increased SOB and LE swelling reoprts legs are feeling less fat but he thinks he needs a little more lasix reports being able to ambulate better in the hallways today tolerating PO doing well overall Leg wrap removed and evaluated. Review of Systems Review of Systems: All systems reviewed & are unremarkable except as noted in Subjective Physical Exam Physical Exam: CONSTITUTIONAL: WNWD, vitals as above, generally well- appearing EYES: normal conjunctivae, no scleral icterus ENT: external ear and nose normal, MMM, poor dentition RESPIRATORY: clear to auscultation bilaterally, no crackles, rales or wheezes, normal respiratory effort CARDIOVASCULAR: regular rate and rhythm, 3/6 EMELIA heard throughout precordium, no gallops or rubs, no JVD, no peripheral edema GASTROINTESTINAL: soft, nontender, nondistended, no guarding. MUSCULOSKELETAL: strength 5/5 throughout, head is normocephalic and atraumatic, neck supple, normal palpation of chest wall without tenderness SKIN: warm and dry, chronic woody appearance to skin of RLE with hardening of skin and swelling present. Small close wound on anterior RLE with scaliness to skin. No drainage present. Minimal erythema or warmth. NEUROLOGIC: No facial palsy, no dysarthria. CN 2-12 grossly intact, no sensory deficit, normal cognition, normal speech, no gross focal deficits. PSYCHIATRIC: alert and cooperative and answers questions appropriately Results & Data Results & Data ([facility]) Vital Signs (Past 12 Hours) Vital Signs Temp Pulse Resp BP Pulse Ox 12/13/20 15:39 36.8 C 68 19 101/68 96 12/13/20 12:42 36.9 C 64 19 114/67 94 12/13/20 08:10 36.4 C L 73 18 116/70 93 Laboratory Results BMP 12/13/20 08:59 Sodium 143 Potassium 3.3 L Chloride 107 Carbon Dioxide 27 BUN 37 H Creatinine 1.22 Glucose 148 H Calcium 8.2 L Medications Administered Current Inpatient Medications Acetaminophen (Acetaminophen 325 Mg Tab) 325 mg PO Q6H PRN PRN Reason: Mild Pain Stop: 01/07/21 05:24 Aspirin (Aspirin 81 Mg Ectab) 81 mg PO QAM [facility] Stop: 01/11/21 08:59 Last Admin: 12/13/20 07:40 Dose: Not Given Documented by: Atorvastatin Calcium (Atorvastatin 20 Mg Tab) 20 mg PO HS [facility] Stop: 01/10/21 21:14 Last Admin: 12/12/20 20:34 Dose: 20 mg Documented by: Doxycycline Hyclate (Doxycycline Hyclate 100 Mg Cap) 100 mg PO BID [facility] Stop: 12/15/20 20:59 Last Admin: 12/13/20 07:45 Dose: 100 mg Documented by: Enoxaparin Sodium (Enoxaparin Inj 30 Mg/0.3 Ml Syr) 30 mg SQ QAM [facility] Stop: 01/07/21 08:59 Last Admin: 12/13/20 07:41 Dose: Not Given Documented by: Furosemide (Furosemide 80 Mg Tab) 80 mg PO DAILY [facility] Stop: 01/08/21 08:59 Last Admin: 12/11/20 07:55 Dose: 80 mg Documented by: Furosemide 40 mg/ Syringe 4 mls @ 4 mls/min IV [id number] [facility] Stop: 01/12/21 16:59 Levothyroxine Sodium (Levothyroxine Sodium 50 Mcg Tablet) 50 mcg PO DAILYBB [facility] Stop: 01/11/21 06:29 Last Admin: 12/13/20 06:32 Dose: 50 mcg Documented by: Metoprolol Succinate (Metoprolol Succ 25mg Ext Rel Tab) 12.5 mg PO QAM [facility] Stop: 01/11/21 08:59 Last Admin: 12/13/20 07:44 Dose: 12.5 mg Documented by: Nitroglycerin (Nitroglycerin Sl 0.4 Mg/Tab Tab) 0.4 mg SL UD PRN PRN Reason: Chest Pain Stop: 01/07/21 05:24 Ondansetron HCl (Ondansetron Inj 2 Mg/Ml 2 Ml Vial) 4 mg IV Q6H PRN PRN Reason: Nausea Stop: 01/07/21 14:23 Last Admin: 12/10/20 22:02 Dose: 4 mg Documented by: Spironolactone (Spironolactone 12.5 Mg Tab) 12.5 mg PO DAILY [facility] Stop: 01/11/21 08:59 Last Admin: 12/13/20 07:44 Dose: 12.5 mg Documented by: Tramadol HCl (Tramadol Hcl 50 Mg Tablet) 25 mg PO Q4H PRN PRN Reason: Pain Stop: 01/07/21 05:24 Last Admin: 12/12/20 21:33 Dose: 25 mg Documented by: (1) A-fib Atrial fibrillation type: unspecified Qualified Code(s): I48.91 - Unspecified atrial fibrillation (2) Schizophrenia Schizophrenia type: unspecified Qualified Code(s): F20.9 - Schizophrenia, unspecified
[2020-12-13] MEDS: traMADol HCL 50 MG TABLET PO PRN (19:23)
[2020-12-13] MEDS: ONDANSETRON INJ 2 MG/ML 2 ML VIAL IV PRN (19:23)
[2020-12-13] MEDS: ATORVASTATIN 20 MG TAB PO SCH (20:10)
[2020-12-14] MEDS: LEVOTHYROXINE SODIUM 50 MCG TABLET PO SCH (06:28)
[2020-12-14 07:51] LABS: BUN Creatinine Ratio 33.1 (10-20); Calcium 7.9 mg/dl (8.5-10.1); Creatinine Clr Calc Pharmacy 51.8 ml/min; Est GFR (African American) 73.8; Est GFR (Non-African American) 63.7; Potassium 4.3 mmol/L (3.5-5.1)
[2020-12-14] MEDS: DOXYCYCLINE HYCLATE 100 MG CAP PO SCH (08:10)
[2020-12-14] MEDS: METOPROLOL SUCC 25MG EXT REL TAB PO SCH (08:11)
[2020-12-14] MEDS: ASPIRIN 81 MG ECTAB PO SCH (08:12)
[2020-12-14] MEDS: SPIRONOLACTONE 12.5 MG TAB PO SCH (08:12)
[2020-12-14] MEDS: ENOXAPARIN INJ 30 MG/0.3 ML SYR SQ SCH (08:12)
[2020-12-14] MEDS ORDERED: FUROSEMIDE 80 MG TAB PO SCH (09:00)
--- NOTE | 2020-12-14 14:09 | Discharge Summary ---
Date of Service December 14, 2020 Admission HPI Per Admitting Provider History obtained from ER provider and records. Unable to obtain history from patient secondary to obtunded state post Ativan administration at the ER. Medical history significant for chronic systolic heart failure secondary to ischemic cardiomyopathy EF 15-20%, TTE 2019), severe mitral regurgitation, CAD status post stent, hypertension, hx PAF, paranoid schizophrenia, past hx DVT, hx testicular CA sp surgery and chemotherapy, past tobacco abuse, chronic anemia (baseline hemoglobin of 10-11), hypothyroidism, history chronic leg lymphedema, medication noncompliance. Recent confinement September 2020 for decompensated heart failure secondary to medication noncompliance. Recent ER visit 2 days ago for shortness of breath symptoms. Admits to noncompliance with home Lasix. Patient given Lasix at the ER for CHF. Subsequently discharged home with instructions to follow-up with PCP.. Patient persistently short of breath on exertion at home and hurting all over as per records. Upon arrival at the ER, patient given Lasix for CHF. Patient's penis noted to be edematous as per ER provider exam. Good urine output noted after manipulation at the ER. Patient currently obtunded post Ativan administration at the ER. Medical History as above Surgical History : Appendectomy, orchiectomy Family History : Heart disease Personal/Social history : Past tobacco abuse, no EtOH intake, disabled Allergies Admission Exam Per Admitting Provider GENERAL: Obtunded, unkempt, no respiratory distress SKIN: Pallor, warm HEENT: Pale palpebral conjunctivae, no ptosis, dry buccal mucosa NECK : Supple, no tenderness CHEST : Decreased breath sounds, no tenderness HEART : RRR, systolic murmur ABDOMEN: Some distention, no overt tenderness EXTREMITIES : RLE induration with dressing soaked with purulent drainage, no other conspicuous deformities noted NEUROLOGIC : Obtunded , no facial asymmetry, gait and stance not assessed Principal Diagnosis Acute on chronic systolic heart fialure h/o ischemic cardiomyopathy h/o CAD s/p stent placement cellulitis of RLE medication noncompliance Discharge Exam CONSTITUTIONAL: WNWD, vitals as above, generally well-appearing EYES: normal conjunctivae, no scleral icterus ENT: external ear and nose normal, MMM, poor dentition RESPIRATORY: clear to auscultation bilaterally, no crackles, rales or wheezes, normal respiratory effort CARDIOVASCULAR: regular rate and rhythm, 3/6 EMELIA heard throughout precordium, no gallops or rubs, no JVD, no peripheral edema GASTROINTESTINAL: soft, nontender, nondistended, no guarding. MUSCULOSKELETAL: strength 5/5 throughout, head is normocephalic and atraumatic, neck supple, normal palpation of chest wall without tenderness SKIN: warm and dry, chronic woody appearance to skin of RLE with hardening of skin and considerable improvement in swelling noted. There is an erythroderma present on his RLE that appears chronic with initial increased redness and warmth resolved. Skin is scaly and dry with no open wounds present. NEUROLOGIC: No facial palsy, no dysarthria. CN 2-12 grossly intact, no sensory deficit, normal cognition, normal speech, no gross focal deficits. PSYCHIATRIC: alert and cooperative and answers questions appropriately Discharge Data Allergies Allergy/AdvReac Type Severity Reaction Status Date / Time horse dander Allergy Unknown Unknown Verified 12/08/20 00:18 tetanus toxoid, adsorbed Allergy Unknown Unknown Verified 12/08/20 00:18 Consultations 12/08/20 00:17 ED Decision to Admit Stat 12/08/20 05:25 Consult Case Management - Discharge Planning Routine Ordered Studies [facility], [id number] XRay Report Patient: LUZ MARINA MORALEZAdmit Date: 12/08/20#: [id number]: Abram PEDRO [facility] ID:[id number]: [facility]: [facility] Zip: [place], [place] [address]Oyf: 70Location: 1ESex: MRoom/Bed: [id number] Phy: Patrick Sexton, MDDiagnosis: CHF, CELLULITISPri Phy: PCP,NOService Date: 12/07/20Fam Phy:Interpreting Phy: Sunil DorantesAdmit Phy: Trung Montiel MD Ordering Phy: Agustin Blacwkell M.D. cc: ~ XR chest 1V portable HISTORY: 70 years-old Male SHOB acute shortness of breath COMPARISON: Chest radiograph and CTA chest 12/06/2020 TECHNIQUE: Portable AP view of the chest FINDINGS: Moderate to marked enlargement of the cardiac silhouette redemonstrated. Calcified plaque the thoracic aorta. Emphysema. No pneumothorax or overt pulm onary edema. Small right pleural effusion with mildly improved aeration of the right lung base. Degenerative changes of the shoulders and spine. IMPRESSION: 1. Cardiomegaly without overt pulmonary edema. 2. Small right pleural effusion with mildly improved aeration of the right lung base. 3. Emphysema. ACT 112: Negative or not required by law. The above report was generated using voice recognition software. It may contain grammatical, syntax or spelling errors. Electronically signed by: Shaun Dorantes M.D. 12/08/2020 7:02 AM Dictated: 12/08/20700Transcribed: 12/08/20700 Hospital Course (1) Acute on chronic systolic (congestive) heart failure: ACUTE ON CHRONIC SYSTOLIC CONGESTIVE HEART FAILURE HISTORY OF ISCHEMIC CARDIOMYOPATHY EF 15 TO 20% HISTORY OF CAD, STATUS POST STENT PLACEMENT --presents with mild CHF exacerbation secondary to nonadherence to Lasix --was given Lasix IV initially on 12/08 and was then switched back to home PO dose for next couple of days with continued diuresis. -He plateaued and was switched back to 40 IV BID dosing. Good result overnight, held afternoon dose. Liberalized fluid restriction based on patient request. Continued low salt diet and daily standing weights. -he was continued on intravenous lasix for a few days and felt to remain euvolemic and very stable. -he was working with therapy and ambulating in the hallways, although he did express concern for going home saying he didn't want to "have a fit." --chronic Ef 20%. He was restarted on home spironolactone and Toprol and given new prescriptions at time of discharge. (2) Chronic cutaneous venous stasis ulcer: Chronic closed wound with some surrounding cellulitis which has resolved. Given a course of doxycycline this admission. Skin is scaly and chronic-could use chronic long-term professional wound care follow-up as outpatient. (3) Cellulitis of right lower extremity: (4) Medical non-compliance: This is difficult with patient's preconceived notions 2/2 mental health conditions/paranoia. He came in off many of his medications which were restarted at discharge. . (5) CKD (chronic kidney disease), stage III: (6) A-fib: Currently in sinus rhythm and rate is normal. Poor candidate for long- term anticoagulation secondary to poor adherence to medication and underlying psychiatric disorder. (7) Schizophrenia: (8) Mitral regurgitation: (9) CAD (coronary artery disease): (10) Hypothyroidism: noncompliant with levothyroxine which was restarted on admission and re- prescribed to him at time of discharge. Repeat TSH is recommended in 6-8 weeks. At time of discharge he was hemodynamically stable and afebrile and was tolerating PO well. He was ambulating and mentating at baseline and was oxygenating well on room air. Lungs remained clear to auscultation for several days and his RLE swelling had improved significantly. He was sent home in stable condition with close PCP follow-up recommended. Total Time Total Time Spent Total Time Spent (In Minutes): 60 Total Time Includes: Examination of the Patient, Discharge Planning, Medication Reconciliation and Communication With Other Providers Discharge Plan Discharge Items Patient Disposition: Home - Self-Care Reason For Visit: CHF, CELLULITIS Discharge Diagnosis: Acute on chronic systolic heart fialure h/o ischemic cardiomyopathy h/o CAD s/p stent placement cellulitis of RLE medication noncompliance Condition on Discharge: Good Activity: Resume your previous activity Non-emergency contact: Primary Care Provider Call non-emergency contact if: you have any medication questions and your symptoms worsen Follow-up/Referrals: Yesica Donnelly MD [Hospitalist] - (Date & Time 12/21/2020 11:00 AM Provider Yesica Donnelly MD Department General Internal Medicine [facility] ) PCP,NO [Primary Care Provider] - Diet: Low Sodium (2gm) Fluids: 1800ml (7 cups) Diet Texture: Easy to Chew Addtl Attending Provider Instructions: Please take all medications as instructed on discharge list below. It is strongly recommended that you remain compliant with all the recommended medications on your list below. You have been given a follow-up appointment with a different provider per your request. It is recommended that you follow-up with this provider after hospital discharge to ensure you are doing fine with your symptoms and medications. You will also need to have monitoring blood work to monitor your kidney function and electrolytes since restarting your medications. This may be ordered by your primary care physician in the next two weeks. With your chronic right leg swelling, you may benefit from professional wound care and occasional debridement of the previous wound and the skin in this area. Please discuss this referral with your primary care provider at time of followup. It was a pleasure taking care of you! Please call if you have any questions or problems. You can reach a [facility] hospitalist on duty at 24 hours a day by calling [phone]. Take care of yourself. Chelsea Mosley, DO [facility] Center[facility] Pending Studies at Discharge: No Stand-Alone Forms: My [facility] Medications and DC Order Prescriptions: New atorvastatin [Lipitor] 80 mg tablet 80 mg PO HS Qty: 30 RF: 1 metoprolol succinate 25 mg Tablet Extended Release 24 Hr 12.5 mg PO QAM Qty: 30 RF: 1 spironolactone 25 mg Tablet 12.5 mg PO DAILY Qty: 30 RF: 1 aspirin 81 mg Tablet,Delayed Release (Dr/Ec) 81 mg PO QAM Qty: 90 RF: 1 levothyroxine [Synthroid] 50 mcg Tablet 50 mcg PO DAILYBB Qty: 30 RF: 1 Continued furosemide [Lasix] 80 mg tablet 80 mg PO DAILY Qty: 30 RF: 1 Discharge Orders: Discharge Order (Routine); Ordered 12/14/20 Ordered By: Chelsea Mosley Admission Data Admit Date/Time: 12/08/20 02:21 Attending Provider: Chelsea Mosley Admit Provider: Trung Montiel Primary Care Provider: PCP,NO Other Providers: Trung Montiel Other Interventions: Discharge Summary Assessment (RN) Last Done: 12/14/20 14:13
== END 2020-12-14 15:05 | disposition home or self-care (01) | DRG 291 ==
LOC: ED 22:49 → SUATTDRO 12-08 02:21 → 1E 12-08 02:21 → 2S 12-09 19:01 → 2W 12-10 18:06

== ENCOUNTER 2021-04-13 19:34 | Inpatient (IN) ==
[2021-04-13 21:08] LABS: Basophils # (auto) 0.01 K/uL (0-0.2); Basophils % (auto) 0.1 %; Eosinophils # (auto) 0.08 K/uL (0-0.5); Eosinophils % (auto) 1.2 %; Hematocrit (blood only) 38.7 % (42-52); Immature Granulocytes # (auto) 0.01 K/uL (0.00-0.02); Immature Granulocytes % (auto) 0.1 %; Lymphocytes # (auto) 0.34 K/uL (1.2-3.4); Lymphocytes % (auto) 4.9 %; Mean Corpuscular Hemoglobin 27.5 pg (25-34); Mean Corpuscular Volume 88.8 fL (80-100); Mean Platelet Volume 9.7 fL (7.4-10.4); Monocytes # (auto) 0.46 K/uL (0.11-0.59); Monocytes % (auto) 6.7 %; Neutrophils # (auto) 5.99 K/uL (1.4-6.5); Platelet Count 165 K/uL (130-400); RDW Coefficient of Variation 16.6 % (11.5-14.5); RDW Standard Deviation 53.8 fL (36.4-46.3); Red Blood Count 4.36 M/uL (4.7-6.1); White Blood Count 6.89 K/uL (4.8-10.8)
[2021-04-13 21:15] LABS: Alanine Aminotransferase 14 U/L (12-78); Albumin Level 3.7 gm/dl (3.4-5.0); Aspartate Aminotransferase 22 U/L (15-37); Blood Urea Nitrogen 14 mg/dl (7-18); Calcium 9.1 mg/dl (8.5-10.1); Carbon Dioxide 20 mmol/L (21-32); Chloride 115 mmol/L (98-107); Creatinine Clr Calc Pharmacy 64.5 ml/min; Est GFR (African American) 83.2 ml/min; Est GFR (Non-African American) 71.8 ml/min; Glucose 82 mg/dl (70-99); Potassium 4.3 mmol/L (3.5-5.1); Sodium 141 mmol/L (136-145)
[2021-04-13 21:20] LABS: Albumin Globulin Ratio 0.9 (0.9-2); Alkaline Phosphatase 136 U/L (45-117); Bilirubin,Total 2.4 mg/dl (0.2-1); Globulin 4.1 gm/dl (2.5-4.0); Total Protein 7.8 gm/dl (6.4-8.2); Troponin I < 0.015 ng/ml (0-0.045)
[2021-04-13 21:21] LABS: INR 1.2 (0.9-1.1); Partial Thromboplastin Time 27.1 Seconds (21.0-31.0); Prothrombin Time 11.7 Seconds (9.0-12.0)
[2021-04-13] MEDS ORDERED: PIPERACILL/TAZOBAC CONSULT ACTIVE PRN (21:28)
[2021-04-13] MEDS ORDERED: PIPERACILLIN/TAZOBACTAM 4.5 GM/120 ML BAG IV ONE (21:28)
[2021-04-13] MEDS ORDERED: FUROSEMIDE 40 MG/4 ML VIAL IV STA (21:28)
[2021-04-13] MEDS ORDERED: fentaNYL citrate 100 MCG/2 ML VIAL IV STA (21:40)
[2021-04-13 21:42] LABS: Magnesium 2.1 mg/dl (1.8-2.4)
--- NOTE | 2021-04-13 22:00 | Emergency Department Note ---
Impression & Plan SOB (shortness of breath), Lymphedema of right lower extremity, Chest pain, Acute on chronic congestive heart failure, Cellulitis of right lower extremity, Fluid overload ED Provider Note Provider: Dorian Matta MD DATE OF SERVICE: 04/13/2021 CHIEF COMPLAINT: Shortness of breath, leg swelling, chest pain HISTORY OF PRESENT ILLNESS: Patient is a 70-year-old gentleman history of hypertension, CKD, type 2 diabetes, right lower extremity lymphedema, CHF with prior CAD, atrial fibrillation, and schizophrenia presenting here today reporting some chest discomfort today as well as over the last several days worsening shortness of breath. Patient states he was hospitalized here in November and since then initially felt quite well but has recently had a decline over the last 7 to 10 days. His story keeps changing as to exactly how long has been off his medication but has been is off his medication for at least several days. Perseverates on his apartment and that his apartment is affecting his medications. States he is now followed in the outpatient setting with his primary care doctor and does not have one currently. Patient states his leg swelling has become worsened and he is having some mild pain here. States he is continue to wear the pants and socks as well as the bandage on his right lower leg that he had when he was discharged from this facility in November. Patient denies any trauma or falls. Denies any significant abdominal pain at this time or nausea. REVIEW OF SYSTEMS: A total of 10 review of systems was obtained and negative except as stated above in the HPI. PAST MEDICAL HISTORY: As noted above MEDICATIONS: Reviewed home medication list but, the patient states he is not currently taking any of his medications SOCIAL HISTORY: Patient lives in apartment by himself PHYSICAL EXAM: GENERAL: alert and oriented in no acute distress on stretcher appears somewhat disheveled and wearing tattered pair of blue paper scrubs for pants with well- worn yellow and a fall hospital socks in place. Head: normocephalic and atraumatic EYES: No injection, discharge or icterus. NECK: Trachea midline. ENT: Mucous membranes pink and moist. Pharynx without erythema or exudate. LUNGS: Airway patent. No retractions. Breath sounds with crackles in the bases HEART: Regular rate and rhythm. No chest wall tenderness ABDOMEN: Soft and non-tender, without guarding or rebound. Significant swelling of the lower extremities extends into the lower belt line and thigh areas with some 1-2+ edema here. Patient with a significant edematous penis SKIN: Patient with significant swelling of the lower extremities below and skin changes of the right lower extremity as detailed below. EXTREMITIES: Significant 3+ right lower extremity swelling with particular redness along the left lower leg and calf initially wrapped in a bandage. Reports pain is been in place since November. There is a foul smell as well as surrounding erythema and some macerated skin under this. No significant crepitus or necrotic skin appreciated however. The left lower extremity appears somewhat swollen as well but to a lesser degree and is not red or erythematous. Some serous weeping drainage appreciated from the right lower extremity. NEUROLOGICAL: No focal deficits. No aphasia. No facial droop or slurred speech. Intact distal sensation of the bilateral feet. EK bpm sinus rhythm with PAC. Some lateral ST depressions noted but no acute ST segment elevation. QTc 500. QTC is more prolonged and new lateral ST flattening compared to December 07 of this year CONTINUOUS CARDIAC MONITORING: was ordered and showed a heart rate of bpm in sinus rhythm occasional PACs Patient's laboratory studies and imaging reviewed. Differential includes Cardiac ischemia, aortic dissection, pulmonary embolism, pneumothorax, pneumonia, pericarditis, myocarditis, esophageal rupture, GERD, cholecystitis, pancreatitis, musculoskeletal, cellulitis, electrolyte abnormality, renal dysfunction, as well as other pathologies. IMPRESSION/MEDICAL DECISION MAKING: Patient presents somewhat poorly kept state poorly off of his medications appears to be having significant fluid overload. Chronic right lower extremity swelling and venous lymphedema issues. Lower suspicion at this time for acute DVT or PE. Some slight dyspnea on exertion and chest pain for the last day or 2 intermittently with chest pain. EKG without STEMI although question some lateral ST depression but troponin undetectable. Patient with minimal chest pain at this time. Not on oxygen here. Has significant lower extremity body swelling up and through the thighs. No significant leukocytosis and does not appear septic. Afebrile here. Slightly anemia. No significant renal dysfunction or electrolyte abnormality noted. Albumin is not low. TSH slightly high but free T4 is normal. Covid test was negative. Chest x-ray questions a little bit of right lower base pleural effusion and fluid. Believe he is fluid overloaded having CHF exacerbation. Aggressively given IV Lasix here and given a dose of Zosyn given prior microbiology and the concern for cellulitis of the right lower leg. Patient was agreeable for further care here at the hospital which I believe is needed given his state. Patient's obviously not been taking care of himself well at home. The hospitalist was contacted. A culture from t he right leg surface was obtained although not clearly that ulcerated and unsure if this is just going to return skin scarlet. DIAGNOSIS: Shortness of breath, chest pain, fluid overload, CHF exacerbation, right lower extremity cellulitis, lymphedema of the right lower extremity DISPOSITION: Hospitalist will evaluate Patient was agreeable with this plan. Past Med/Surg History Medical History CAD (coronary artery disease) Cholecystitis, acute Chronic systolic CHF (congestive heart failure) History of DVT (deep vein thrombosis) History of pancreatitis History of testicular cancer History of tobacco abuse Homelessness HTN (hypertension) Hypertension Hyperthyroidism Ischemic cardiomyopathy Lymphedema of right lower extremity Mitral regurgitation Palliative care encounter Pleural effusion Schizophrenia STEMI (ST elevation myocardial infarction) Tricuspid regurgitation Surgical History Hx of heart artery stent Status post cardiac catheterization Family History Other Unknown family medical history Social History Smoking Status: Former smoker Tobacco Type: Cigarettes Number of Years Since Quit: 10; Second Hand Exposure: No; Hx Alcohol Use: No Hx Substance Use: No Preferred Language: Martiniquais Communication Ability: Effective School Operations Manager Required: No Beliefs That Will Affect Care: None marital status: Single Current Living Situation: Alone Current Living Situation Comment: Charissa Lees @ housing Transitions How many Children do You have: 0 Feels Safe at Home: Yes Assistive Devices: None Allergies Allergies Allergy/AdvReac Type Severity Reaction Status Date / Time horse dander Allergy Unknown Unknown Verified 04/13/21 20:46 tetanus toxoid, adsorbed Allergy Unknown Unknown Verified 04/13/21 20:46 Home Meds Previous Rx's Medication Instructions Recorded aspirin 81 mg PO QAM #90 tab 12/14/20 atorvastatin [Lipitor] 80 mg PO HS #30 tab 12/14/20 furosemide [Lasix] 80 mg PO DAILY #30 tab 12/14/20 levothyroxine [Synthroid] 50 mcg PO DAILYBB #30 tab 12/14/20 metoprolol succinate 12.5 mg PO QAM #30 tab 12/14/20 spironolactone 12.5 mg PO DAILY #30 tab 12/14/20 Results & Data (ED) Vital Signs Vital Signs - 24 hr 04/13/21 20:01 04/13/21 20:46 Temperature 36.6 C Temperature Source Oral Pulse Rate 78 86 Pulse Rhythm Irregular Irregular Pulse Strength Normal Respiratory Rate 16 16 Respiratory Effort / Characteristics Non-Labored Respiratory Depth Normal Respiratory Pattern Regular Blood Pressure 137/97 Blood Pressure Mean 110 Blood Pressure Position Sitting Pulse Oximetry 97 97 Oxygen Delivery Method Room Air Room Air Sepsis Recent Fever Within 48 Hours No Sepsis New/Unexplained Change in Mental Status No Sepsis Action Taken by Nursing No Action Required Laboratory Data Result diagrams: 04/13/21 20:12 04/13/21 20:12 Lab Results 04/13/21 04/13/21 04/13/21 Range/Units 20:12 20:12 20:12 WBC 6.89 (4.8-10.8) K/uL RBC 4.36 L (4.7-6.1) M/uL Hgb 12.0 L (14.0-18.0) g/dL Hct 38.7 L (42-52) % MCV 88.8 (80-100) fL MCH 27.5 (25-34) pg MCHC 31.0 L (32-36) g/dL RDW Std Deviation 53.8 H (36.4-46.3) fL RDW Coeff of Dante 16.6 H (11.5-14.5) % Plt Count 165 (130-400) K/uL MPV 9.7 (7.4-10.4) fL Immature Gran % (Auto) 0.1 % Neut % (Auto) 87.0 % Lymph % (Auto) 4.9 % Laurens % (Auto) 6.7 % Eos % (Auto) 1.2 % Baso % (Auto) 0.1 % Neut # (Auto) 5.99 (1.4-6.5) K/uL Lymph # (Auto) 0.34 L (1.2-3.4) K/uL Laurens # (Auto) 0.46 (0.11-0.59) K/uL Eos # (Auto) 0.08 (0-0.5) K/uL Baso # (Auto) 0.01 (0-0.2) K/uL Immature Gran # (Auto) 0.01 (0.00-0.02) K/uL PT 11.7 (9.0-12.0) Seconds INR 1.2 H (0.9-1.1) APTT 27.1 (21.0-31.0) Seconds PTT Ratio 1.0 Sodium 141 (136-145) mmol/L Potassium 4.3 (3.5-5.1) mmol/L Chloride 115 H (98-107) mmol/L Carbon Dioxide 20 L (21-32) mmol/L Anion Gap 6.0 (3-11) BUN 14 (7-18) mg/dl Creatinine 1.06 (0.6-1.4) mg/dl Est Cr Clr Drug Dosing 64.5 ml/min Est GFR ( Amer) 83.2 ml/min Est GFR (Non-Af Amer) 71.8 ml/min BUN/Creatinine Ratio 13.0 (10-20) Glucose 82 (70-99) mg/dl Calcium 9.1 (8.5-10.1) mg/dl Magnesium 2.1 (1.8-2.4) mg/dl Total Bilirubin 2.4 H (0.2-1) mg/dl AST 22 (15-37) U/L ALT 14 (12-78) U/L Alkaline Phosphatase 136 H (45-117) U/L Troponin I < 0.015 (0-0.045) ng/ml Total Protein 7.8 (6.4-8.2) gm/dl Albumin 3.7 (3.4-5.0) gm/dl Globulin 4.1 H (2.5-4.0) gm/dl Albumin/Globulin Ratio 0.9 (0.9-2) TSH 8.940 H (0.300-4.500) uIu/ml Free T4 1.30 (0.8-1.6) ng/dl COVID-19 Eval Order SARS-CoV-2 (PCR) (Negative) 04/13/21 04/13/21 Range/Units 22:30 22:30 WBC (4.8-10.8) K/uL RBC (4.7-6.1) M/uL Hgb (14.0-18.0) g/dL Hct (42-52) % MCV (80-100) fL MCH (25-34) pg MCHC (32-36) g/dL RDW Std Deviation (36.4-46.3) fL RDW Coeff of Adnte (11.5-14.5) % Plt Count (130-400) K/uL MPV (7.4-10.4) fL Immature Gran % (Auto) % Neut % (Auto) % Lymph % (Auto) % Laurens % (Auto) % Eos % (Auto) % Baso % (Auto) % Neut # (Auto) (1.4-6.5) K/uL Lymph # (Auto) (1.2-3.4) K/uL Laurens # (Auto) (0.11-0.59) K/uL Eos # (Auto) (0-0.5) K/uL Baso # (Auto) (0-0.2) K/uL Immature Gran # (Auto) (0.00-0.02) K/uL PT (9.0-12.0) Seconds INR (0.9-1.1) APTT (21.0-31.0) Seconds PTT Ratio Sodium (136-145) mmol/L Potassium (3.5-5.1) mmol/L Chloride (98-107) mmol/L Carbon Dioxide (21-32) mmol/L Anion Gap (3-11) BUN (7-18) mg/dl Creatinine (0.6-1.4) mg/dl Est Cr Clr Drug Dosing ml/min Est GFR ( Amer) ml/min Est GFR (Non-Af Amer) ml/min BUN/Creatinine Ratio (10-20) Glucose (70-99) mg/dl Calcium (8.5-10.1) mg/dl Magnesium (1.8-2.4) mg/dl Total Bilirubin (0.2-1) mg/dl AST (15-37) U/L ALT (12-78) U/L Alkaline Phosphatase (45-117) U/L Troponin I (0-0.045) ng/ml Total Protein (6.4-8.2) gm/dl Albumin (3.4-5.0) gm/dl Globulin (2.5-4.0) gm/dl Albumin/Globulin Ratio (0.9-2) TSH (0.300-4.500) uIu/ml Free T4 (0.8-1.6) ng/dl COVID-19 Eval Order Covid19 at [facility] SARS-CoV-2 (PCR) NEGATIVE (Negative) Administered Medications Discontinued Medications Fentanyl Citrate (Fentanyl Citrate 100 Mcg/2 Ml Vial) 50 mcg IV NOW STA Stop: 04/13/21 21:41 Last Admin: 04/13/21 22:06 Dose: 50 mcg Documented by: [id number] Furosemide (Furosemide 40 Mg/4 Ml Vial) 80 mg IV NOW STA Stop: 04/13/21 21:29 Last Admin: 04/13/21 22:06 Dose: 80 mg Documented by: [id number] Piperacillin Sod/Tazobactam Sod (Zosyn) 4.5 gm in 120 mls @ 240 mls/hr IV NOW ONE Stop: 04/13/21 21:57 Last Infusion: 04/13/21 22:47 Dose: 0 mls/hr Documented by: [id number] Admin: 04/13/21 22:06 Dose: 240 mls/hr Documented by: [id number] Discharge Plan Visit Data Chief Complaint: Medication Request Stated Complaint: ILLNESS ED Provider: Dorian Matta Discharge Problem: SOB (shortness of breath), Lymphedema of right lower extremity, Chest pain, Acute on chronic congestive heart failure, Cellulitis of right lower extremity, Fluid overload Patient Disposition: Being Evaluated by Hospitalist Forms Stand Alone Forms: My [facility] Prescriptions Prescriptions: No Action atorvastatin [Lipitor] 80 mg tablet 80 mg PO HS Qty: 30 RF: 1 metoprolol succinate 25 mg Tablet Extended Release 24 Hr 12.5 mg PO QAM Qty: 30 RF: 1 spironolactone 25 mg Tablet 12.5 mg PO DAILY Qty: 30 RF: 1 aspirin 81 mg Tablet,Delayed Release (Dr/Ec) 81 mg PO QAM Qty: 90 RF: 1 levothyroxine [Synthroid] 50 mcg Tablet 50 mcg PO DAILYBB Qty: 30 RF: 1 furosemide [Lasix] 80 mg tablet 80 mg PO DAILY Qty: 30 RF: 1 Referrals Referrals: PCP,NO [Primary Care Provider] - Discharge Problem: Chest pain Qualifiers: Chest pain type: unspecified Qualified Code(s): R07.9 - Chest pain, unspecified Acute on chronic congestive heart failure Qualifiers: Heart failure type: unspecified Qualified Code(s): I50.9 - Heart failure, unspecified Fluid overload Qualifiers: Hypervolemia type: unspecified Qualified Code(s): E87.70 - Fluid overload, unspecified
[2021-04-13] MEDS ORDERED: DOXYCYCLINE HYCLATE 100 MG in DEXTROSE 5% 100 ML IV STA (23:25)
--- NOTE | 2021-04-13 23:53 | History & Physical Report ---
Date of Service April 13, 2021 Assessment & Plan (1) Decompensated heart failure: Decompensated heart failure: Presenting as fluid retention/weight gain No overt congestion on CXR hx chronic systolic heart failure secondary to ischemic cardiomyopathy EF 20%, TTE 2019) Secondary to medication noncompliance, hx of paranoid schizophrenia RLE cellulitis, recurrent disease, hx lymphedema, no sepsis for now hx Pseudomonas on prior CS HTN, currently stable severe mitral regurgitation hx CAD status post stent hx PAF, patient NSR, poor candidate for home anticoagulation due to paranoid schizophrenia hx testicular CA sp surgery and chemotherapy chronic anemia, hemoglobin improved from baseline Hypothyroidism, TSH slight elevated, patient noncompliant with medication Functional disability, inability to care for self/take medications due to paranoia Past history DVT as per records Past tobacco abuse Medical telemetry facilitate home diuretic Rx Strict I/Os, daily weights, CHF education Doxycycline, Cefepime for cellulitis, wound care nurse consult PT OT eval Social service RE discharge planning DVT prophylaxis. Lovenox subcu Full code Text document was generated using [employer] voice recognition software. It may contain grammatical or spelling errors. Kindly contact undersigned for clarification of any documentation item in question. History of Present Illness Chief Complaint: Shortness of breath, weight gain, right leg infection Primary Care Provider: Misty Vora MD History obtained from patient and records. Medical history significant for chronic systolic heart failure secondary to ischemic cardiomyopathy EF 15-20%, TTE 2019), severe mitral regurgitation, CAD status post stent, hypertension, hx PAF, paranoid schizophrenia, past hx DVT, hx testicular CA sp surgery and chemotherapy, past tobacco abuse, chronic anemia (baseline hemoglobin of 10-11), hypothyroidism, history chronic leg lymphedema, medication noncompliance. Recent confinement November 2020 for decompensated heart failure. Patient discharged to senior care. Patient ran out of Lasix prescription last month. Did not call PCPs office for refill. Patient not answering calls from outpatient case management as per documentation. In the last week, patient noted abdominal distention, weight gain, some shortness of breath, no unusual chest pain, no unusual cough symptoms. Right leg swelling with foul-smelling drainage. No fever, no chills. Patient given Lasix and Zosyn at the ER for CHF and cellulitis, respectively. Medical History as above Surgical History : Appendectomy, orchiectomy Family History : Heart disease Personal/Social history : Past tobacco abuse, no EtOH intake, disabled Allergies Allergy/AdvReac Type Severity Reaction Status Date / Time horse dander Allergy Unknown Unknown Verified 04/13/21 20:46 tetanus toxoid, adsorbed Allergy Unknown Unknown Verified 04/13/21 20:46 Home Medications Medication Instructions Recorded Confirmed Type aspirin 81 mg PO QAM #90 tab 12/14/20 04/13/21 Rx atorvastatin [Lipitor] 80 mg PO HS #30 tab 12/14/20 04/13/21 Rx furosemide [Lasix] 80 mg PO DAILY #30 tab 12/14/20 04/13/21 Rx levothyroxine [Synthroid] 50 mcg PO DAILYBB #30 tab 12/14/20 04/13/21 Rx metoprolol succinate 12.5 mg PO QAM #30 tab 12/14/20 04/13/21 Rx spironolactone 12.5 mg PO DAILY #30 tab 12/14/20 04/13/21 Rx Past Med/Surg History Medical History CAD (coronary artery disease) Cholecystitis, acute Chronic systolic CHF (congestive heart failure) History of DVT (deep vein thrombosis) History of pancreatitis History of testicular cancer History of tobacco abuse Homelessness HTN (hypertension) Hypertension Hyperthyroidism Ischemic cardiomyopathy Lymphedema of right lower extremity Mitral regurgitation Palliative care encounter Pleural effusion Schizophrenia STEMI (ST elevation myocardial infarction) Tricuspid regurgitation Surgical History Hx of heart artery stent Status post cardiac catheterization Family History Other Unknown family medical history Social History Smoking Status: Former smoker Tobacco Type: Cigarettes Smoking End Date: 9 years ago; Number of Years Since Quit: 10; Second Hand Exposure: No; Hx Alcohol Use: No Hx Substance Use: No Preferred Language: Icelandic Communication Ability: Effective 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: No Beliefs That Will Affect Care: None marital status: Single Current Living Situation: Alone Current Living Situation Comment: Charissa Lees @ housing Transitions How many Children do You have: 0 Feels Safe at Home: Yes Safety Concerns: Feels Safe At This Time Assistive Devices: None Review of Systems Review of Systems: As per HPI, all 10 systems reviewed, all other ROS negative Physical Exam Physical Exam: GENERAL: Comfortable, unkempt, no respiratory distress SKIN: Pallor, warm HEENT: Pale palpebral conjunctivae, no ptosis, dry buccal mucosa NECK : Supple, no tenderness CHEST : CTA, no tenderness HEART : RRR, apical systolic murmur ABDOMEN: Some distention, nontender EXTREMITIES : Tender RLE induration with foul-smelling yellow drainage, no other conspicuous deformities noted NEUROLOGIC : Coherent, no facial asymmetry, no other gross focality Results & Data Results & Data ([facility]) Vital Signs (Past 12 Hours) Vital Signs Temp Pulse Resp BP Pulse Ox 04/13/21 20:46 86 16 97 04/13/21 20:01 36.6 C 78 16 137/97 97 Laboratory Results Laboratory Results WBC 6.89 K/uL (4.8-10.8) 04/13/21 20:12 RBC 4.36 M/uL (4.7-6.1) L 04/13/21 20:12 Hgb 12.0 g/dL (14.0-18.0) L 04/13/21 20:12 Hct 38.7 % (42-52) L 04/13/21 20:12 MCV 88.8 fL (80-100) 04/13/21 20:12 MCH 27.5 pg (25-34) 04/13/21 20:12 MCHC 31.0 g/dL (32-36) L 04/13/21 20:12 RDW Std Deviation 53.8 fL (36.4-46.3) H 04/13/21 20:12 RDW Coeff of Dante 16.6 % (11.5-14.5) H 04/13/21 20:12 Plt Count 165 K/uL (130-400) 04/13/21 20:12 MPV 9.7 fL (7.4-10.4) 04/13/21 20:12 Immature Gran % (Auto) 0.1 % 04/13/21 20:12 Neut % (Auto) 87.0 % 04/13/21 20:12 Lymph % (Auto) 4.9 % 04/13/21 20:12 Shoshone % (Auto) 6.7 % 04/13/21 20:12 Eos % (Auto) 1.2 % 04/13/21 20:12 Baso % (Auto) 0.1 % 04/13/21 20:12 Neut # (Auto) 5.99 K/uL (1.4-6.5) 04/13/21 20:12 Lymph # (Auto) 0.34 K/uL (1.2-3.4) L 04/13/21 20:12 Shoshone # (Auto) 0.46 K/uL (0.11-0.59) 04/13/21 20:12 Eos # (Auto) 0.08 K/uL (0-0.5) 04/13/21 20:12 Baso # (Auto) 0.01 K/uL (0-0.2) 04/13/21 20:12 Immature Gran # (Auto) 0.01 K/uL (0.00-0.02) 04/13/21 20:12 PT 11.7 Seconds (9.0-12.0) 04/13/21 20: INR 1.2 (0.9-1.1) H 04/13/21 20:12 APTT 27.1 Seconds (21.0-31.0) 04/13/21 20: PTT Ratio 1.0 04/13/21 20:12 Sodium 141 mmol/L (136-145) 04/13/21 20:12 Potassium 4.3 mmol/L (3.5-5.1) 04/13/21 20:12 Chloride 115 mmol/L (98-107) H 04/13/21 20:12 Carbon Dioxide 20 mmol/L (21-32) L 04/13/21 20:12 Anion Gap 6.0 (3-11) 04/13/21 20:12 BUN 14 mg/dl (7-18) 04/13/21 20:12 Creatinine 1.06 mg/dl (0.6-1.4) 04/13/21 20:12 Est Cr Clr Drug Dosing 64.5 ml/min 04/13/21 20:12 Est GFR ( Amer) 83.2 ml/min 04/13/21 20:12 Est GFR (Non-Af Amer) 71.8 ml/min 04/13/21 20:12 BUN/Creatinine Ratio 13.0 (10-20) 04/13/21 20:12 Glucose 82 mg/dl (70-99) 04/13/21 20:12 Calcium 9.1 mg/dl (8.5-10.1) 04/13/21 20:12 Magnesium 2.1 mg/dl (1.8-2.4) 04/13/21 20:12 Total Bilirubin 2.4 mg/dl (0.2-1) H 04/13/21 20:12 AST 22 U/L (15-37) 04/13/21 20:12 ALT 14 U/L (12-78) 04/13/21 20:12 Alkaline Phosphatase 136 U/L (45-117) H 04/13/21 20:12 Troponin I < 0.015 ng/ml (0-0.045) 04/13/21 20:12 Total Protein 7.8 gm/dl (6.4-8.2) 04/13/21 20:12 Albumin 3.7 gm/dl (3.4-5.0) 04/13/21 20:12 Globulin 4.1 gm/dl (2.5-4.0) H 04/13/21 20:12 Albumin/Globulin Ratio 0.9 (0.9-2) 04/13/21 20:12 TSH 8.940 uIu/ml (0.300-4.500) H 04/13/21 20:12 Free T4 1.30 ng/dl (0.8-1.6) 04/13/21 20:12 COVID-19 Eval Order Covid19 at [facility] 04/13/21 22:30 SARS-CoV-2 (PCR) NEGATIVE (Negative) 04/13/21 22:30 Diagnostic Findings Chest x-ray as per my interpretation cardiomegaly, atelectasis RLE venous Dopplers initial read: No DVT EKG as per my interpretation : Rate 85, NSR, normal axis, T wave flattening inferior and septal leads, Code Status & VTE Plan VTE Prophylaxis Plan VTE Prophylaxis will be ordered: Yes
[2021-04-14] MEDS ORDERED: CEFEPIME CONSULT ACTIVE PRN (01:28)
[2021-04-14] MEDS ORDERED: ACETAMINOPHEN 325 MG TAB PO PRN (01:28)
[2021-04-14] MEDS ORDERED: PROMETHAZINE HCL 6.25 MG in SODIUM CHLORIDE 0.9% 50 ML IV PRN (01:28)
[2021-04-14] MEDS: CEFEPIME 2,000 MG in SYRINGE 0 ML IV SCH ×2 (02:58→13:28)
[2021-04-14] MEDS: LEVOTHYROXINE SODIUM 50 MCG TABLET PO SCH (06:09)
--- NOTE | 2021-04-14 07:10 | Ultrasound Report ---
ULTRASOUND RIGHT LOWER EXTREMITY VENOUS CLINICAL HISTORY: Right lower extremity edema. COMPARISON STUDY: Right lower extremity venous ultrasound dated 07/31/2015. TECHNIQUE: Real-time, grayscale, and color Doppler sonography of the deep veins of the right lower ex tremity was performed from the inguinal crease to the calf. Compression was attempted but not tolerat ed by the patient. The examination is suboptimal due to chronic lower extremity edema and pain. FINDINGS: There is no sonographic evidence of deep venous thrombosis identified in the right lower ex tremity. The common femoral, superficial femoral, and popliteal veins are patent as visualized. The g reater saphenous vein and the profunda femoris vein at the junction with the common femoral vein are clear. The visualized calf veins are patent. IMPRESSION: There is no sonographic evidence of deep venous thrombosis identified in the right lower extremity. ACT 112: Negative or not required by law. Electronically signed by: Mulugeta Mccabe M.D. 04/14/2021 7:08 AM
[2021-04-14 07:13] LABS: Basophils # (auto) 0.01 K/uL (0-0.2); Basophils % (auto) 0.2 %; Eosinophils # (auto) 0.03 K/uL (0-0.5); Eosinophils % (auto) 0.5 %; Hematocrit (blood only) 33.3 % (42-52); Hemoglobin 10.6 g/dL (14.0-18.0); Immature Granulocytes # (auto) 0.01 K/uL (0.00-0.02); Immature Granulocytes % (auto) 0.2 %; Lymphocytes # (auto) 0.19 K/uL (1.2-3.4); Lymphocytes % (auto) 3.2 %; Mean Corpuscular Hemoglobin 27.8 pg (25-34); Mean Corpuscular Hgb Conc 31.8 g/dL (32-36); Mean Corpuscular Volume 87.4 fL (80-100); Mean Platelet Volume 9.1 fL (7.4-10.4); Monocytes # (auto) 0.25 K/uL (0.11-0.59); Monocytes % (auto) 4.1 %; Neutrophils # (auto) 5.54 K/uL (1.4-6.5); Neutrophils % (auto) 91.8 %; Platelet Count 133 K/uL (130-400); RDW Coefficient of Variation 16.3 % (11.5-14.5); RDW Standard Deviation 52.2 fL (36.4-46.3); Red Blood Count 3.81 M/uL (4.7-6.1); White Blood Count 6.03 K/uL (4.8-10.8)
[2021-04-14 07:39] LABS: Calcium 8.7 mg/dl (8.5-10.1); Creatinine Clr Calc Pharmacy 63.9 ml/min; Est GFR (African American) 82.2 ml/min; Potassium 3.7 mmol/L (3.5-5.1)
--- NOTE | 2021-04-14 08:15 | XRay Report ---
XR chest 1V portable CLINICAL HISTORY: Atypical chest pain COMPARISON STUDY: 12/07/2020 FINDINGS: The heart remains enlarged. There is a persistent right pleural effusion with associated ri ght basilar atelectasis/consolidation. There is mild pulmonary vascular congestion. The patient appea rs hyperinflated.[ IMPRESSION: 1. Moderate to marked cardiomegaly 2. Persistent right pleural effusion with associated right basilar airspace opacities, likely atelect atic although an infectious/inflammatory process could appear similar ACT 112: Negative or not required by law. Electronically signed by: Villa Almeida M.D. 04/14/2021 8:14 AM
[2021-04-14] MEDS: ASPIRIN 81 MG ECTAB PO SCH (08:16)
[2021-04-14] MEDS: METOPROLOL SUCC 25MG EXT REL TAB PO SCH (08:16)
[2021-04-14] MEDS: DOXYCYCLINE HYCLATE 100 MG CAP PO SCH ×2 (08:17→20:19)
[2021-04-14] MEDS: FUROSEMIDE 80 MG TAB PO SCH (08:17)
[2021-04-14] MEDS: SPIRONOLACTONE 12.5 MG TAB PO SCH (08:17)
--- NOTE | 2021-04-14 13:39 | Electrocardiogram Report ---
Test Reason : Blood Pressure : / mmHG Vent. Rate : 086 BPM Atrial Rate : 084 BPM P-R Int : 112 ms QRS Dur : 110 ms QT Int : 418 ms P-R-T Axes : 000 082 005 degrees QTc Int : 500 ms Poor data quality, interpretation may be adversely affected Sinus rhythm with Premature atrial complexes Septal infarct , age undetermined Prolonged QT Abnormal ECG When compared with ECG of 07-DEC-2020 23:02, Premature ventricular complexes are no longer Present Premature atrial complexes are now Present ST now depressed in Lateral leads Confirmed by Darian Garcia ([id number]) on 04/14/2021 1:39:07 PM Referred By: REFERRED SELF Confirmed By:Darian Garcia
[2021-04-14] MEDS: traMADol HCL 50 MG TABLET PO PRN (14:05)
--- NOTE | 2021-04-14 14:57 | Hospitalist Progress Note ---
Date of Service April 14, 2021 Assessment & Plan (1) Decompensated heart failure: Decompensated heart failure: Presenting as fluid retention/weight gain No overt congestion on CXR History of chronic systolic heart failure secondary to ischemic cardiomyopathy EF 20%, TTE 2019) Secondary to medication noncompliance, hx of paranoid schizophrenia Received IV Lasix on admission and now on oral Lasix 80 mg daily His overall condition is improving We will monitor PRP RLE cellulitis, recurrent disease, hx lymphedema, no sepsis for now hx Pseudomonas on prior CS Has been on intravenous cefepime and oral doxycycline Gram stain from wound growing gram-negative bacilliawait further identification and sensitivity HTN, currently stable hx CAD status post stent History of severe mitral regurgitation History of PAF, patient NSR, poor candidate for home anticoagulation due to paranoid schizophrenia Denies any cardiac symptoms Heart rate remains stable at 77 History of testicular CA sp surgery and chemotherapy Chronic anemia, hemoglobin improved from baseline Hypothyroidism, TSH slight elevated, patient noncompliant with medication Functional disability, inability to care for self/take medications due to paranoia Past history DVT as per records Past tobacco [facility] Admission and Anticipated Discharge Date Admission Date: April 13, 2021 Subjective 04/14/2021 The patient was seen and examined in medical telemetry unit He has been complaining of shortness of breath and pain with increasing swelling of right lower extremity He denies any shortness of breath at rest Denies any chest pain and/or palpitation Review of Systems Review of Systems: All systems reviewed and are unremarkable except as noted below Respiratory: + dyspnea on exertion Cardiovascular: no chest pain Musculoskeletal: Right lower extremity swelling and pain Physical Exam Physical Exam: Lying in bed comfortably Constitutional: + ill appearing and average body habitus Eyes: PERRL, conjunctivae normal, anicteric sclerae ENMT: external ear and nose normal, oropharynx normal Neck: trachea midline, no thyromegaly Respiratory: + respiratory distress (Minimal respiratory distress at rest) Auscultation: + diminished lung sounds and + crackles (Minimal bibasilar crackles) Cardiovascular: Rate/Rhythm: regular rate and regular rhythm Heart Sounds: no murmur Extremities: + edema (Lymphedema on the right leg and right lower leg cellulitis) Gastrointestinal (Abdomen): Inspection/Auscultation: normal bowel sounds; abdomen not distended Percussion/Palpation: abdomen soft; abdomen nontender Musculoskeletal: No acute arthritis in any joint Neurologic: Alert, awake and oriented x3 Lymphatic: no cervical or axillary lymphadenopathy Results & Data Results & Data ([facility]) Vital Signs (Past 12 Hours) Vital Signs Temp Pulse Pulse Resp BP Pulse Ox 04/14/21 11:11 36.6 C 77 18 100/63 99 04/14/21 08:00 75 04/14/21 07:32 36.3 C L 70 18 107/61 99 04/14/21 02:55 75 Laboratory Results Short CBC 04/13/21 04/14/21 Range/Units 20:12 06:58 WBC 6.89 6.03 (4.8-10.8) K/uL Hgb 12.0 L 10.6 L (14.0-18.0) g/dL Hct 38.7 L 33.3 L (42-52) % Plt Count 165 133 (130-400) K/uL BMP 04/13/21 04/14/21 20:12 06:58 Sodium 141 145 Potassium 4.3 3.7 Chloride 115 H 116 H Carbon Dioxide 20 L 21 BUN 14 14 Creatinine 1.06 1.07 Glucose 82 83 Calcium 9.1 8.7 Cardiac Enzymes 04/13/21 Range/Units 20:12 Troponin I < 0.015 (0-0.045) ng/ml Liver Function 04/13/21 Range/Units 20:12 Total Bilirubin 2.4 H (0.2-1) mg/dl AST 22 (15-37) U/L ALT 14 (12-78) U/L Alkaline Phosphatase 136 H (45-117) U/L Albumin 3.7 (3.4-5.0) gm/dl Medications Administered Current Inpatient Medications Acetaminophen (Acetaminophen 325 Mg Tab) 650 mg PO Q4H PRN PRN Reason: Pain or Fever Stop: 05/14/21 01:27 Aspirin ([facility]in 81 Mg [facility]ctab) [facility] [place]: 05/14/21 08:59 Last Admin: 04/14/21 08:16 Dose: Not Given Documented by: Atorvastatin Calcium (Atorvastatin 40 Mg Tab) 80 mg PO HS [facility] Stop: 05/14/21 20:59 Doxycycline Hyclate (Doxycycline Hyclate 100 Mg Cap) 100 mg PO BID [facility] Stop: 04/21/21 08:59 Last Admin: 04/14/21 08:17 Dose: 100 mg Documented by: Furosemide (Furosemide 80 Mg Tab) 80 mg PO DAILY [facility] Stop: 05/14/21 08:59 Last Admin: 04/14/21 08:17 Dose: 80 mg Documented by: Promethazine HCl 6.25 mg/ (Sodium Chloride) 50.25 mls @ 201 mls/hr IV Q6H PRN PRN Reason: Nausea And Vomiting Stop: 05/14/21 01:27 Cefepime HCl 2,000 mg/ Syringe 20 mls @ 5 mls/min IV Q12H [facility] Stop: 04/21/21 01:59 Last Admin: 04/14/21 13:28 Dose: 5 mls/min Documented by: Levothyroxine Sodium (Levothyroxine Sodium 50 Mcg Tablet) 50 mcg PO DAILYBB [facility] Stop: 05/14/21 06:29 Last Admin: 04/14/21 06:09 Dose: 50 mcg Documented by: Metoprolol Succinate (Metoprolol Succ 25mg Ext Rel Tab) 12.5 mg PO QAM [facility] Stop: 05/14/21 08:59 Last Admin: 04/14/21 08:16 Dose: Not Given Documented by: Miscellaneous Information (Cefepime Consult Active) 1 ea N/A UD PRN PRN Reason: Consult Stop: 05/14/21 01:27 Spironolactone (Spironolactone 12.5 Mg Tab) 12.5 mg PO DAILY [facility] Stop: 05/14/21 08:59 Last Admin: 04/14/21 08:17 Dose: 12.5 mg Documented by: Tramadol HCl (Tramadol Hcl 50 Mg Tablet) 25 mg PO Q4H PRN PRN Reason: Pain Stop: 05/14/21 01:27 Last Admin: 04/14/21 14:05 Dose: 25 mg Documented by:
[2021-04-14] MEDS: ATORVASTATIN 40 MG TAB PO SCH (20:19)
[2021-04-15] MEDS: CEFEPIME 2,000 MG in SYRINGE 0 ML IV SCH (01:04)
[2021-04-15] MEDS: LEVOTHYROXINE SODIUM 50 MCG TABLET PO SCH (05:43)
[2021-04-15 06:17] LABS: Basophils # (auto) 0.01 K/uL (0-0.2); Basophils % (auto) 0.3 %; Eosinophils # (auto) 0.05 K/uL (0-0.5); Eosinophils % (auto) 1.4 %; Hematocrit (blood only) 33.6 % (42-52); Hemoglobin 10.4 g/dL (14.0-18.0); Lymphocytes # (auto) 0.34 K/uL (1.2-3.4); Lymphocytes % (auto) 9.5 %; Mean Corpuscular Hemoglobin 27.2 pg (25-34); Mean Platelet Volume 9.3 fL (7.4-10.4); Monocytes # (auto) 0.36 K/uL (0.11-0.59); Monocytes % (auto) 10.1 %; Neutrophils # (auto) 2.82 K/uL (1.4-6.5); Neutrophils % (auto) 78.7 %; Platelet Count 130 K/uL (130-400); RDW Coefficient of Variation 16.5 % (11.5-14.5); Red Blood Count 3.82 M/uL (4.7-6.1); White Blood Count 3.58 K/uL (4.8-10.8)
[2021-04-15 06:53] LABS: BUN Creatinine Ratio 13.6 (10-20); Est GFR (African American) 62.1 ml/min; Est GFR (Non-African American) 53.6 ml/min; Magnesium 2.2 mg/dl (1.8-2.4); Phosphorus 3.3 mg/dl (2.5-4.9); Potassium 3.2 mmol/L (3.5-5.1)
[2021-04-15 06:54] LABS: Giant Platelets 1+
[2021-04-15] MEDS: ASPIRIN 81 MG ECTAB PO SCH (07:51)
[2021-04-15] MEDS: DOXYCYCLINE HYCLATE 100 MG CAP PO SCH ×2 (07:51→20:16)
[2021-04-15] MEDS: METOPROLOL SUCC 25MG EXT REL TAB PO SCH (07:51)
[2021-04-15] MEDS: FUROSEMIDE 80 MG TAB PO SCH (07:51)
[2021-04-15] MEDS: SPIRONOLACTONE 12.5 MG TAB PO SCH (07:52)
[2021-04-15] MEDS ORDERED: POTASSIUM CHLORIDE CRTAB 20 MEQ TABCR PO STA (08:46)
[2021-04-15] MEDS: AMOXICILLIN/CLAVULANATE 875 MG TAB PO SCH ×2 (09:31→16:07)
[2021-04-15] MEDS: ONDANSETRON INJ 2 MG/ML 2 ML VIAL IV PRN (16:07)
[2021-04-15] MEDS: HYDROmorphone INJ 0.5 MG/0.5 ML SYR IV PRN (16:08)
--- NOTE | 2021-04-15 16:50 | Hospitalist Progress Note ---
Date of Service April 15, 2021 Assessment & Plan (1) Decompensated heart failure: Decompensated heart failure: Presenting as fluid retention/weight gain No overt congestion on CXR History of chronic systolic heart failure secondary to ischemic cardiomyopathy EF 20%, TTE 2019) Secondary to medication noncompliance, hx of paranoid schizophrenia Received IV Lasix on admission and now on oral Lasix 80 mg daily His overall condition is improving We will monitor PRP-remains stable RLE cellulitis, recurrent disease, hx lymphedema, no sepsis for now hx Pseudomonas on prior CS Has been on intravenous cefepime and oral doxycycline Gram stain from wound growing gram-negative bacilliawait further identification and sensitivity Antibiotics have been changed to oral Augmentin depending on the sensitivity Right leg swelling has been improving but he still has edematous thigh Increasing pain in the legs and back Will try very small dose of Dilaudid IV HTN, currently stable hx CAD status post stent History of severe mitral regurgitation History of PAF, patient NSR, poor candidate for home anticoagulation due to paranoid schizophrenia Denies any cardiac symptoms Heart rate remains stable at 77 History of testicular CA sp surgery and chemotherapy Chronic anemia, hemoglobin improved from baseline Hypothyroidism, TSH slight elevated, patient noncompliant with medication Functional disability, inability to care for self/take medications due to paranoia Past history DVT as per records Past tobacco abuse DVT prophylaxis. Lovenox subcu Full code Discussed with the patient about discharge out of hospital We will get PT and OT evaluation Admission and Anticipated Discharge Date Admission Date: April 13, 2021 Subjective 04/14/2021 The patient was seen and examined in medical telemetry unit He has been complaining of shortness of breath and pain with increasing swelling of right lower extremity He denies any shortness of breath at rest Denies any chest pain and/or palpitation 04/15/2021 The patient was seen and examined in medical telemetry unit He has been feeling much better but complains a lot of pain involving the leg and also the back Denies any chest pain, shortness of breath, palpitation, fever or chills Still has swelling of the legs Review of Systems Review of Systems: All systems reviewed and are unremarkable except as noted below Respiratory: + dyspnea on exertion Musculoskeletal: Right lower extremity swelling and pain Physical Exam Physical Exam: Lying in bed comfortably Constitutional: + ill appearing and average body habitus Eyes: PERRL, conjunctivae normal, anicteric sclerae ENMT: external ear and nose normal, oropharynx normal Neck: trachea midline, no thyromegaly Respiratory: + respiratory distress (Minimal respiratory distress at rest) Auscultation: + diminished lung sounds and + crackles (Minimal bibasilar crackles) Cardiovascular: Rate/Rhythm: regular rate and regular rhythm Heart Sounds: no murmur Extremities: + edema (Lymphedema on the right leg and right lower leg cellulitis) Gastrointestinal (Abdomen): Inspection/Auscultation: normal bowel sounds; abdomen not distended Percussion/Palpation: abdomen soft; abdomen nontender Musculoskeletal: Right leg pain but no acute arthritis involving any joint. Neurologic: Alert, awake and oriented x3 Psychiatric: Affect: + depressed affect and + anxious affect Insight: + limited insight Lymphatic: no cervical or axillary lymphadenopathy Results & Data Results & Data ([facility]) Vital Signs (Past 12 Hours) Vital Signs Temp Pulse Pulse Resp BP Pulse Ox 04/15/21 15:34 36.3 C L 65 18 114/75 98 04/15/21 11:23 36.3 C L 74 18 106/69 97 04/15/21 08:22 68 04/15/21 07:35 36.4 C L 62 18 96/59 L 99 Laboratory Results Short CBC 04/15/21 Range/Units 06:03 WBC 3.58 L (4.8-10.8) K/uL Hgb 10.4 L (14.0-18.0) g/dL Hct 33.6 L (42-52) % Plt Count 130 (130-400) K/uL BMP 04/15/21 06:03 Sodium 144 Potassium 3.2 L Chloride 112 H Carbon Dioxide 27 BUN 18 Creatinine 1.35 Glucose 107 H Calcium 8.0 L Medications Administered Current Inpatient Medications Acetaminophen (Acetaminophen 325 Mg Tab) 650 mg PO Q4H PRN PRN Reason: Pain or Fever Stop: 05/14/21 01:27 Amoxicillin/Clavulanate Potassium (Amoxicillin/Clavulanate 875 Mg Tab) 1 tab PO BIDM [facility]; Protocol Stop: 04/20/21 08:01 Last Admin: 04/15/21 16:07 Dose: 1 tab Documented by: Aspirin (Aspirin 81 Mg Ectab) 81 mg PO QAM [facility] Stop: 05/14/21 08:59 Last Admin: 04/15/21 07:51 Dose: Not Given Documented by: Atorvastatin Calcium (Atorvastatin 40 Mg Tab) 80 mg PO HS [facility] Stop: 05/14/21 20:59 Last Admin: 04/14/21 20:19 Dose: 20 mg Documented by: Doxycycline Hyclate (Doxycycline Hyclate 100 Mg Cap) 100 mg PO BID [facility] Stop: 04/21/21 08:59 Last Admin: 04/15/21 07:51 Dose: 100 mg Documented by: Furosemide (Furosemide 80 Mg Tab) 80 mg PO DAILY [facility] Stop: 05/14/21 08:59 Last Admin: 04/15/21 07:51 Dose: 80 mg Documented by: Hydromorphone HCl (Hydromorphone Inj 0.5 Mg/0.5 Ml Syr) 0.25 mg IV Q8H PRN PRN Reason: Pain Stop: 04/29/21 11:02 Last Admin: 04/15/21 16:08 Dose: 0.25 mg Documented by: Promethazine HCl 6.25 mg/ (Sodium Chloride) 50.25 mls @ 201 mls/hr IV Q6H PRN PRN Reason: Nausea And Vomiting Stop: 05/14/21 01:27 Levothyroxine Sodium (Levothyroxine Sodium 50 Mcg Tablet) 50 mcg PO DAILYBB [facility] Stop: 05/14/21 06:29 Last Admin: 04/15/21 05:43 Dose: 50 mcg Documented by: Metoprolol Succinate (Metoprolol Succ 25mg Ext Rel Tab) 12.5 mg PO QAM [facility] Stop: 05/14/21 08:59 Last Admin: 04/15/21 07:51 Dose: Not Given Documented by: Ondansetron HCl (Ondansetron Inj 2 Mg/Ml 2 Ml Vial) 4 mg IV Q6H PRN PRN Reason: Nausea And Vomiting Stop: 05/15/21 15:50 Last Admin: 04/15/21 16:07 Dose: 4 mg Documented by: Spironolactone (Spironolactone 12.5 Mg Tab) 12.5 mg PO DAILY [facility] Stop: 05/14/21 08:59 Last Admin: 04/15/21 07:52 Dose: 12.5 mg Documented by: Tramadol HCl (Tramadol Hcl 50 Mg Tablet) 25 mg PO Q4H PRN PRN Reason: Pain Stop: 05/14/21 01:27 Last Admin: 04/14/21 14:05 Dose: 25 mg Documented by:
[2021-04-15] MEDS: ATORVASTATIN 40 MG TAB PO SCH (20:16)
[2021-04-16] MEDS: LEVOTHYROXINE SODIUM 50 MCG TABLET PO SCH (05:43)
[2021-04-16] MEDS ORDERED: POTASSIUM CHLORIDE CRTAB 20 MEQ TABCR PO STA (08:37)
[2021-04-16] MEDS: ASPIRIN 81 MG ECTAB PO SCH ×2 (08:45→08:48)
[2021-04-16] MEDS: DOXYCYCLINE HYCLATE 100 MG CAP PO SCH ×2 (08:46→20:00)
[2021-04-16] MEDS: AMOXICILLIN/CLAVULANATE 875 MG TAB PO SCH ×2 (08:47→16:45)
[2021-04-16] MEDS: FUROSEMIDE 80 MG TAB PO SCH (08:48)
[2021-04-16] MEDS: SPIRONOLACTONE 12.5 MG TAB PO SCH (08:48)
[2021-04-16] MEDS: METOPROLOL SUCC 25MG EXT REL TAB PO SCH (08:48)
[2021-04-16] MEDS: POTASSIUM CHLORIDE CRTAB 20 MEQ TABCR PO SCH (10:55)
[2021-04-16] MEDS: ONDANSETRON INJ 2 MG/ML 2 ML VIAL IV PRN ×2 (10:55→19:59)
[2021-04-16] MEDS: HYDROmorphone INJ 0.5 MG/0.5 ML SYR IV PRN ×2 (10:55→19:59)
--- NOTE | 2021-04-16 14:03 | Hospitalist Progress Note ---
Date of Service April 16, 2021 Assessment & Plan (1) Decompensated heart failure: Decompensated heart failure: Presenting as fluid retention/weight gain No overt congestion on CXR History of chronic systolic heart failure secondary to ischemic cardiomyopathy EF 20%, TTE 2019) Secondary to medication noncompliance, hx of paranoid schizophrenia Received IV Lasix on admission and now on oral Lasix 80 mg daily We will continue current dose of Lasix as kidney functions remained stable Has been diuresing enough RLE cellulitis, recurrent disease, hx lymphedema, no sepsis for now hx Pseudomonas on prior CS Has been on intravenous cefepime and oral doxycycline Gram stain from wound growing gram-negative bacilliawait further identification and sensitivity Antibiotics have been changed to oral Augmentin depending on the sensitivity Right leg swelling has been improving but he still has edematous thigh The pain in the leg has been decreasing Continue with wound care Increasing pain in the legs and back Will try very small dose of Dilaudid IV HTN, currently stable hx CAD status post stent History of severe mitral regurgitation History of PAF, patient NSR, poor candidate for home anticoagulation due to paranoid schizophrenia Denies any cardiac symptoms Heart rate remains stable at 77 History of testicular CA sp surgery and chemotherapy Chronic anemia, hemoglobin improved from baseline Hypothyroidism, TSH slight elevated, patient noncompliant with medication Functional disability, inability to care for self/take medications due to paranoia Past history DVT as per records Past tobacco abuse DVT prophylaxis. Lovenox subcu Full code Discussed with the patient about discharge out of hospital We will get PT and OT evaluation Not yet ready to be discharged Admission and Anticipated Discharge Date Admission Date: April 13, 2021 Subjective 04/14/2021 The patient was seen and examined in medical telemetry unit He has been complaining of shortness of breath and pain with increasing swelling of right lower extremity He denies any shortness of breath at rest Denies any chest pain and/or palpitation 04/15/2021 The patient was seen and examined in medical telemetry unit He has been feeling much better but complains a lot of pain involving the leg and also the back Denies any chest pain, shortness of breath, palpitation, fever or chills Still has swelling of the legs 04/16/2021 The patient was seen and examined in medical telemetry unit He has been feeling much better but is still complains to have swelling involving the right lower abdominal wall and right leg Denies any more pain No fever and/or chills Review of Systems Review of Systems: All systems reviewed and are unremarkable except as noted below Respiratory: + dyspnea on exertion Musculoskeletal: Right lower extremity swelling and pain Physical Exam Physical Exam: Lying in bed comfortably Constitutional: + ill appearing and average body habitus Eyes: PERRL, conjunctivae normal, anicteric sclerae ENMT: external ear and nose normal, oropharynx normal Neck: trachea midline, no thyromegaly Respiratory: + respiratory distress (Minimal respiratory distress at rest) Auscultation: + diminished lung sounds and + crackles (Minimal bibasilar crackles) Cardiovascular: Rate/Rhythm: regular rate and regular rhythm Heart Sounds: no murmur Extremities: + edema (Lymphedema on the right leg and right lower leg cellulitis) Gastrointestinal (Abdomen): Inspection/Auscultation: normal bowel sounds; abdomen not distended Percussion/Palpation: abdomen soft; abdomen nontender Musculoskeletal: No acute arthritis in any joint Psychiatric: Affect: + depressed affect and + anxious affect Insight: + limited insight Lymphatic: no cervical or axillary lymphadenopathy Results & Data Results & Data ([facility]) Vital Signs (Past 12 Hours) Vital Signs Temp Pulse Pulse Resp BP Pulse Ox 04/16/21 11:25 36.4 C L 62 18 123/74 92 04/16/21 09:30 72 04/16/21 07:23 36.4 C L 71 18 95/66 L 96 04/16/21 03:48 36.3 C L 77 18 118/81 95 04/16/21 02:17 73 Medications Administered Current Inpatient Medications Acetaminophen (Acetaminophen 325 Mg Tab) 650 mg PO Q4H PRN PRN Reason: Pain or Fever Stop: 05/14/21 01:27 Amoxicillin/Clavulanate Potassium (Amoxicillin/Clavulanate 875 Mg Tab) [address] [facility]; Protocol Stop: 04/20/21 08:01 Last Admin: 04/16/21 08:47 Dose: 1 tab Documented by: Aspirin (Aspirin 81 Mg Ectab) [facility] [place] Stop: 05/14/21 08:59 Last Admin: 04/16/21 08:48 Dose: 81 mg Documented by: Atorvastatin Calcium (Atorvastatin 40 Mg Tab) 80 mg PO [facility] Stop: 05/14/21 20:59 Last Admin: 04/15/21 20:16 Dose: 20 mg Documented by: Doxycycline Hyclate (Doxycycline Hyclate 100 Mg Cap) [address] [facility] Stop: 04/21/21 08:59 Last Admin: 04/16/21 08:46 Dose: 100 mg Documented by: Furosemide (Furosemide 80 Mg Tab) [address] [facility] Stop: 05/14/21 08:59 Last Admin: 04/16/21 08:48 Dose: 80 mg Documented by: Hydromorphone HCl (Hydromorphone Inj 0.5 Mg/0.5 Ml Syr) 0.25 mg IV Q8H PRN PRN Reason: Pain Stop: 04/29/21 11:02 Last Admin: 04/16/21 10:55 Dose: 0.25 mg Documented by: Promethazine HCl 6.25 mg/ (Sodium Chloride) 50.25 mls @ 201 mls/hr IV Q6H PRN PRN Reason: Nausea And Vomiting Stop: 05/14/21 01:27 Levothyroxine Sodium (Levothyroxine Sodium 50 Mcg Tablet) [facility]: 05/14/21 06:29 Last Admin: 04/16/21 05:43 Dose: 50 mcg Documented by: Metoprolol Succinate (Metoprolol Succ 25mg Ext Rel Tab) 12.[address] [facility] Stop: 05/14/21 08:59 Last Admin: 04/16/21 08:48 Dose: Not Given Documented by: Ondansetron HCl (Ondansetron Inj 2 Mg/Ml 2 Ml Vial) 4 mg IV Q6H PRN PRN Reason: Nausea And Vomiting Stop: 05/15/21 15:50 Last Admin: 04/16/21 10:55 Dose: 4 mg Documented by: Potassium Chloride (Potassium Chloride Crtab 20 Meq Tabcr) [address] [facility] Stop: 05/16/21 08:59 Last Admin: 04/16/21 10:55 Dose: 20 meq Documented by: Spironolactone (Spironolactone 12.5 Mg Tab) 12.[address] [facility] Stop: 05/14/21 08:59 Last Admin: 04/16/21 08:48 Dose: 12.5 mg Documented by: Tramadol HCl (Tramadol Hcl 50 Mg Tablet) 25 mg PO Q4H PRN PRN Reason: Pain Stop: 05/14/21 01:27 Last Admin: 04/14/21 14:05 Dose: 25 mg Documented by:
[2021-04-16] MEDS: ATORVASTATIN 40 MG TAB PO SCH (20:01)
[2021-04-17] MEDS: LEVOTHYROXINE SODIUM 50 MCG TABLET PO SCH (06:08)
[2021-04-17] MEDS: ASPIRIN 81 MG ECTAB PO SCH ×2 (07:46→09:13)
[2021-04-17] MEDS: FUROSEMIDE 80 MG TAB PO SCH (07:46)
[2021-04-17] MEDS: SPIRONOLACTONE 12.5 MG TAB PO SCH (07:47)
[2021-04-17] MEDS: METOPROLOL SUCC 25MG EXT REL TAB PO SCH (07:47)
[2021-04-17] MEDS: DOXYCYCLINE HYCLATE 100 MG CAP PO SCH ×2 (07:47→20:12)
[2021-04-17] MEDS: AMOXICILLIN/CLAVULANATE 875 MG TAB PO SCH ×2 (07:49→16:37)
[2021-04-17] MEDS: POTASSIUM CHLORIDE CRTAB 20 MEQ TABCR PO SCH (07:52)
[2021-04-17] MEDS: ONDANSETRON INJ 2 MG/ML 2 ML VIAL IV PRN ×2 (10:37→20:12)
[2021-04-17] MEDS: HYDROmorphone INJ 0.5 MG/0.5 ML SYR IV PRN ×2 (10:37→22:23)
--- NOTE | 2021-04-17 12:17 | Hospitalist Progress Note ---
Date of Service April 17, 2021 Assessment & Plan (1) Decompensated heart failure: Decompensated heart failure: Presenting as fluid retention/weight gain No overt congestion on CXR History of chronic systolic heart failure secondary to ischemic cardiomyopathy EF 20%, TTE 2019) Secondary to medication noncompliance, hx of paranoid schizophrenia Received IV Lasix on admission and now on oral Lasix 80 mg daily We will continue current dose of Lasix as kidney functions remained stable Has been diuresing enough We will continue diuresis for now and supplement potassium as needed RLE cellulitis, recurrent disease, hx lymphedema, no sepsis for now hx Pseudomonas on prior CS Has been on intravenous cefepime and oral doxycycline Gram stain from wound growing gram-negative bacilliawait further identification and sensitivity Antibiotics have been changed to oral Augmentin depending on the sensitivity Right leg swelling has been improving but he still has edematous thigh The pain in the leg has been decreasing Continue with wound care Right lower extremity swelling has improved a lot Increasing pain in the legs and back Will try very small dose of Dilaudid IV HTN, currently stable hx CAD status post stent History of severe mitral regurgitation History of PAF, patient NSR, poor candidate for home anticoagulation due to paranoid schizophrenia Denies any cardiac symptoms Heart rate remains stable at 77 History of testicular CA sp surgery and chemotherapy Chronic anemia, hemoglobin improved from baseline Hypothyroidism, TSH slight elevated, patient noncompliant with medication Functional disability, inability to care for self/take medications due to paranoia Past history DVT as per records Past tobacco abuse DVT prophylaxis. Lovenox subcu Full code Discussed with the patient about discharge out of hospital We will get PT and OT evaluation Not yet ready to be discharged Admission and Anticipated Discharge Date Admission Date: April 13, 2021 Subjective 04/14/2021 The patient was seen and examined in medical telemetry unit He has been complaining of shortness of breath and pain with increasing swelling of right lower extremity He denies any shortness of breath at rest Denies any chest pain and/or palpitation 04/15/2021 The patient was seen and examined in medical telemetry unit He has been feeling much better but complains a lot of pain involving the leg and also the back Denies any chest pain, shortness of breath, palpitation, fever or chills Still has swelling of the legs 04/16/2021 The patient was seen and examined in medical telemetry unit He has been feeling much better but is still complains to have swelling involving the right lower abdominal wall and right leg Denies any more pain No fever and/or chills 04/07/2021 The patient was seen and examined in medical telemetry unit He has been feeling well today and complains to have right leg pain Denies any fever and/or chills, no nausea and or vomiting Review of Systems Review of Systems: All systems reviewed and are unremarkable except as noted below Respiratory: + dyspnea on exertion Musculoskeletal: Right lower extremity swelling and pain Physical Exam Physical Exam: Lying in bed comfortably Constitutional: + ill appearing and average body habitus Eyes: PERRL, conjunctivae normal, anicteric sclerae ENMT: external ear and nose normal, oropharynx normal Neck: trachea midline, no thyromegaly Respiratory: + respiratory distress (Minimal respiratory distress at rest) Auscultation: + diminished lung sounds and + crackles (Minimal bibasilar crackles) Cardiovascular: Rate/Rhythm: regular rate and regular rhythm Heart Sounds: no murmur Extremities: + edema (Lymphedema on the right leg and right lower leg cellulitis) Edema of the right lower extremity has been improving Gastrointestinal (Abdomen): Inspection/Auscultation: normal bowel sounds; abdomen not distended Percussion/Palpation: abdomen soft; abdomen nontender Musculoskeletal: No acute arthritis in any joint Psychiatric: Affect: + depressed affect and + anxious affect Insight: + limited insight Lymphatic: no cervical or axillary lymphadenopathy Results & Data Results & Data ([facility]) Vital Signs (Past 12 Hours) Vital Signs Temp Pulse Pulse Resp BP Pulse Ox 04/17/21 11:04 36.7 C 51 L 18 94/64 L 100 04/17/21 10:12 65 04/17/21 07:49 36.5 C 62 18 114/75 99 04/17/21 03:41 36.5 C 64 18 126/65 98 04/17/21 03:36 50 L Medications Administered Current Inpatient Medications Acetaminophen (Acetaminophen 325 Mg Tab) 650 mg PO Q4H PRN PRN Reason: Pain or Fever Stop: 05/14/21 01:27 Amoxicillin/Clavulanate Potassium (Amoxicillin/Clavulanate 875 Mg Tab) 1 tab PO BIDM [facility]; Protocol Stop: 04/20/21 08:01 Last Admin: 04/17/21 07:49 Dose: 1 tab Documented by: Aspirin (Aspirin 81 Mg Ectab) 81 mg PO QAM [facility] Stop: 05/14/21 08:59 Last Admin: 04/17/21 09:13 Dose: Not Given Documented by: Atorvastatin Calcium (Atorvastatin 40 Mg Tab) 80 mg PO HS [facility] Stop: 05/14/21 20:59 Last Admin: 04/16/21 20:01 Dose: 80 mg Documented by: Doxycycline Hyclate (Doxycycline Hyclate 100 Mg Cap) 100 mg PO BID [facility] Stop: 04/21/21 08:59 Last Admin: 04/17/21 07:47 Dose: 100 mg Documented by: Furosemide (Furosemide 80 Mg Tab) 80 mg PO DAILY [facility] Stop: 05/14/21 08:59 Last Admin: 04/17/21 07:46 Dose: 80 mg Documented by: Hydromorphone HCl (Hydromorphone Inj 0.5 Mg/0.5 Ml Syr) 0.25 mg IV Q8H PRN PRN Reason: Pain Stop: 04/29/21 11:02 Last Admin: 04/17/21 10:37 Dose: 0.25 mg Documented by: Promethazine HCl 6.25 mg/ (Sodium Chloride) 50.25 mls @ 201 mls/hr IV Q6H PRN PRN Reason: Nausea And Vomiting Stop: 05/14/21 01:27 Levothyroxine Sodium (Levothyroxine Sodium 50 Mcg Tablet) 50 mcg PO DAILYBB [facility] Stop: 05/14/21 06:29 Last Admin: 04/17/21 06:08 Dose: 50 mcg Documented by: Metoprolol Succinate (Metoprolol Succ 25mg Ext Rel Tab) [facility] [place] Stop: 05/14/21 08:59 Last Admin: 04/17/21 07:47 Dose: 12.5 mg Documented by: Ondansetron HCl (Ondansetron Inj 2 Mg/Ml 2 Ml Vial) 4 mg IV Q6H PRN PRN Reason: Nausea And Vomiting Stop: 05/15/21 15:50 Last Admin: 04/17/21 10:37 Dose: 4 mg Documented by: Potassium Chloride (Potassium Chloride Crtab 20 Meq Tabcr) 20 meq [facility] [place] Stop: 05/16/21 08:59 Last Admin: 04/17/21 07:52 Dose: 20 meq Documented by: Spironolactone (Spironolactone 12.5 Mg Tab) 12.5 mg PO DAILY [facility] Stop: 05/14/21 08:59 Last Admin: 04/17/21 07:47 Dose: 12.5 mg Documented by: Tramadol HCl (Tramadol Hcl 50 Mg Tablet) 25 mg PO Q4H PRN PRN Reason: Pain Stop: 05/14/21 01:27 Last Admin: 04/14/21 14:05 Dose: 25 mg Documented by:
[2021-04-17] MEDS: ENOXAPARIN INJ 30 MG/0.3 ML SYR SQ SCH (13:55)
[2021-04-17] MEDS: traMADol HCL 50 MG TABLET PO PRN (20:12)
[2021-04-17] MEDS: ATORVASTATIN 40 MG TAB PO SCH (20:13)
[2021-04-18] MEDS: LEVOTHYROXINE SODIUM 50 MCG TABLET PO SCH (06:25)
[2021-04-18 07:28] LABS: BUN Creatinine Ratio 17.5 (10-20); Calcium 8.3 mg/dl (8.5-10.1); Creatinine Clr Calc Pharmacy 46.6 ml/min; Est GFR (African American) 65.6 ml/min; Est GFR (Non-African American) 56.6 ml/min; Magnesium 1.8 mg/dl (1.8-2.4); Potassium 3.9 mmol/L (3.5-5.1)
[2021-04-18] MEDS: AMOXICILLIN/CLAVULANATE 875 MG TAB PO SCH ×2 (08:21→17:30)
[2021-04-18] MEDS: DOXYCYCLINE HYCLATE 100 MG CAP PO SCH ×2 (08:22→20:22)
[2021-04-18] MEDS: ASPIRIN 81 MG ECTAB PO SCH (08:22)
[2021-04-18] MEDS: FUROSEMIDE 80 MG TAB PO SCH (08:22)
[2021-04-18] MEDS: ENOXAPARIN INJ 30 MG/0.3 ML SYR SQ SCH (08:22)
[2021-04-18] MEDS: METOPROLOL SUCC 25MG EXT REL TAB PO SCH (08:22)
[2021-04-18] MEDS: POTASSIUM CHLORIDE CRTAB 20 MEQ TABCR PO SCH (08:31)
[2021-04-18] MEDS: SPIRONOLACTONE 12.5 MG TAB PO SCH (09:01)
[2021-04-18] MEDS: traMADol HCL 50 MG TABLET PO PRN (10:07)
[2021-04-18] MEDS: ONDANSETRON INJ 2 MG/ML 2 ML VIAL IV PRN (10:07)
[2021-04-18] MEDS: HYDROmorphone INJ 0.5 MG/0.5 ML SYR IV PRN ×2 (11:30→20:15)
--- NOTE | 2021-04-18 16:10 | Hospitalist Progress Note ---
Date of Service April 18, 2021 Assessment & Plan (1) Decompensated heart failure: Decompensated heart failure: Presenting as fluid retention/weight gain No overt congestion on CXR History of chronic systolic heart failure secondary to ischemic cardiomyopathy EF 20%, TTE 2019) Secondary to medication noncompliance, hx of paranoid schizophrenia Received IV Lasix on admission and now on oral Lasix 80 mg daily We will continue current dose of Lasix as kidney functions remained stable Has been diuresing enough We will continue diuresis for now and supplement potassium as needed Responded very well to diuretics RLE cellulitis, recurrent disease, hx lymphedema, no sepsis for now hx Pseudomonas on prior CS Has been on intravenous cefepime and oral doxycycline Gram stain from wound growing gram-negative bacilliawait further identification and sensitivity Antibiotics have been changed to oral Augmentin depending on the sensitivity Right leg swelling has been improving but he still has edematous thigh The pain in the leg has been decreasing Continue with wound care Right lower extremity swelling has improved a lot Still has some pain in the right leg Increasing pain in the legs and back Will try very small dose of Dilaudid IV HTN, currently stable hx CAD status post stent History of severe mitral regurgitation History of PAF, patient NSR, poor candidate for home anticoagulation due to paranoid schizophrenia Denies any cardiac symptoms Heart rate remains stable at 77 History of testicular CA sp surgery and chemotherapy Chronic anemia, hemoglobin improved from baseline Hypothyroidism, TSH slight elevated, patient noncompliant with medication Functional disability, inability to care for self/take medications due to paranoia Past history DVT as per records Past tobacco abuse DVT prophylaxis. Lovenox subcu Full code Discussed with the patient about discharge out of hospital We will get PT and OT evaluation Not yet ready to be discharged Admission and Anticipated Discharge Date Admission Date: April 13, 2021 Subjective 04/14/2021 The patient was seen and examined in medical telemetry unit He has been complaining of shortness of breath and pain with increasing swelling of right lower extremity He denies any shortness of breath at rest Denies any chest pain and/or palpitation 04/15/2021 The patient was seen and examined in medical telemetry unit He has been feeling much better but complains a lot of pain involving the leg and also the back Denies any chest pain, shortness of breath, palpitation, fever or chills Still has swelling of the legs 04/16/2021 The patient was seen and examined in medical telemetry unit He has been feeling much better but is still complains to have swelling involvin g the right lower abdominal wall and right leg Denies any more pain No fever and/or chills 04/17/2021 The patient was seen and examined in medical telemetry unit He has been feeling well today and complains to have right leg pain Denies any fever and/or chills, no nausea and or vomiting 04/18/2021 The patient was seen and examined in medical telemetry unit He says that he is not ready yet to be discharged Complains of more abdominal pain and dizziness with ambulation Review of Systems Review of Systems: All systems reviewed and are unremarkable except as noted below Respiratory: + dyspnea on exertion Musculoskeletal: Right lower extremity swelling and pain Physical Exam Physical Exam: Lying in bed comfortably Constitutional: + ill appearing and average body habitus Eyes: PERRL, conjunctivae normal, anicteric sclerae ENMT: external ear and nose normal, oropharynx normal Neck: trachea midline, no thyromegaly Respiratory: + respiratory distress (Minimal respiratory distress at rest) Auscultation: + diminished lung sounds and + crackles (Minimal bibasilar crackles) Cardiovascular: Rate/Rhythm: regular rate and regular rhythm Heart Sounds: no murmur Extremities: + edema (Lymphedema on the right leg and right lower leg cellulitis) Right leg edema has improved a lot Gastrointestinal (Abdomen): Inspection/Auscultation: normal bowel sounds; abdomen not distended Percussion/Palpation: abdomen soft; abdomen nontender Musculoskeletal: No acute arthritis in any joint Psychiatric: Affect: + depressed affect and + anxious affect Insight: + limited insight Lymphatic: no cervical or axillary lymphadenopathy Results & Data Results & Data ([facility]) Vital Signs (Past 12 Hours) Vital Signs Temp Pulse Pulse Pulse Resp BP BP 04/18/21 15:00 62 04/18/21 14:55 36.5 C 56 L 18 100/64 04/18/21 11:09 36.5 C 77 18 135/81 04/18/21 08:20 75 04/18/21 07:34 36.4 C L 59 L 18 106/62 04/18/21 07:14 66 04/18/21 04:18 36.7 C 65 18 112/69 Pulse Ox 04/18/21 15:00 04/18/21 14:55 98 05/30/21 11:09 90 04/18/21 08:20 04/18/21 07:34 100 04/18/21 07:14 04/18/21 04:18 97 Laboratory Results BMP 04/18/21 06:34 Sodium 140 Potassium 3.9 Chloride 105 Carbon Dioxide 30 BUN 23 H Creatinine 1.29 Glucose 76 Calcium 8.3 L Medications Administered Current Inpatient Medications Acetaminophen (Acetaminophen 325 Mg Tab) 650 mg PO Q4H PRN PRN Reason: Pain or Fever Stop: 05/14/21 01:27 Amoxicillin/Clavulanate Potassium (Amoxicillin/Clavulanate 875 Mg Tab) 1 tab PO BIDM [facility]; Protocol Stop: 04/20/21 08:01 Last Admin: 04/18/21 08:21 Dose: 1 tab Documented by: Aspirin (Aspirin 81 Mg Ectab) 81 mg PO QAM [facility] Stop: 05/14/21 08:59 Last Admin: 04/18/21 08:22 Dose: Not Given Documented by: Atorvastatin Calcium (Atorvastatin 40 Mg Tab) 80 mg PO [facility] Stop: 05/14/21 20:59 Last Admin: 04/17/21 20:13 Dose: 80 mg Documented by: Doxycycline Hyclate (Doxycycline Hyclate 100 Mg Cap) 100 mg PO BID [facility] Stop: 04/21/21 08:59 Last Admin: 04/18/21 08:22 Dose: 100 mg Documented by: Enoxaparin Sodium (Enoxaparin Inj 30 Mg/0.3 Ml Syr) 30 mg SQ QAM [facility] Stop: 05/17/21 12:29 Last Admin: 04/18/21 08:22 Dose: Not Given Documented by: Furosemide (Furosemide 80 Mg Tab) 80 mg PO DAILY [facility] Stop: 05/14/21 08:59 Last Admin: 04/18/21 08:22 Dose: 80 mg Documented by: Hydromorphone HCl (Hydromorphone Inj 0.5 Mg/0.5 Ml Syr) 0.25 mg IV Q8H PRN PRN Reason: Pain Stop: 04/29/21 11:02 Last Admin: 04/18/21 11:30 Dose: 0.25 mg Documented by: Promethazine HCl 6.25 mg/ (Sodium Chloride) 50.25 mls @ 201 mls/hr IV Q6H PRN PRN Reason: Nausea And Vomiting Stop: 05/14/21 01:27 Levothyroxine Sodium (Levothyroxine Sodium 50 Mcg Tablet) 50 mcg PO DAILYBB [facility] Stop: 05/14/21 06:29 Last Admin: 04/18/21 06:25 Dose: 50 mcg Documented by: Metoprolol Succinate (Metoprolol Succ 25mg Ext Rel Tab) 12.5 mg PO QAM [facility] Stop: 05/14/21 08:59 Last Admin: 04/18/21 08:22 Dose: 12.5 mg Documented by: Ondansetron HCl (Ondansetron Inj 2 Mg/Ml 2 Ml Vial) 4 mg IV Q6H PRN PRN Reason: Nausea And Vomiting Stop: 05/15/21 15:50 Last Admin: 04/18/21 10:07 Dose: 4 mg Documented by: Potassium Chloride (Potassium Chloride Crtab 20 Meq Tabcr) [facility] [place] Stop: 05/16/21 08:59 Last Admin: 04/18/21 08:31 Dose: 20 meq Documented by: Spironolactone (Spironolactone 12.5 Mg Tab) 12.5 mg PO DAILY [facility] Stop: 05/14/21 08:59 Last Admin: 04/18/21 09:01 Dose: 12.5 mg Documented by: Tramadol HCl (Tramadol Hcl 50 Mg Tablet) 25 mg PO Q4H PRN PRN Reason: Pain Stop: 05/14/21 01:27 Last Admin: 04/18/21 10:07 Dose: 25 mg Documented by:
[2021-04-18] MEDS: ATORVASTATIN 40 MG TAB PO SCH ×2 (20:21→20:24)
[2021-04-19] MEDS: LEVOTHYROXINE SODIUM 50 MCG TABLET PO SCH (06:06)
[2021-04-19 07:08] LABS: BUN Creatinine Ratio 20.8 (10-20); Calcium 8.6 mg/dl (8.5-10.1); Creatinine Clr Calc Pharmacy 44.2 ml/min; Est GFR (African American) 61.5 ml/min; Est GFR (Non-African American) 53.1 ml/min
[2021-04-19] MEDS: ASPIRIN 81 MG ECTAB PO SCH (08:01)
[2021-04-19] MEDS: AMOXICILLIN/CLAVULANATE 875 MG TAB PO SCH ×2 (08:01→16:35)
[2021-04-19] MEDS: DOXYCYCLINE HYCLATE 100 MG CAP PO SCH ×2 (08:02→20:24)
[2021-04-19] MEDS: ENOXAPARIN INJ 30 MG/0.3 ML SYR SQ SCH (08:02)
[2021-04-19] MEDS: FUROSEMIDE 80 MG TAB PO SCH (08:02)
[2021-04-19] MEDS: SPIRONOLACTONE 12.5 MG TAB PO SCH (08:03)
[2021-04-19] MEDS: METOPROLOL SUCC 25MG EXT REL TAB PO SCH (08:03)
[2021-04-19] MEDS: POTASSIUM CHLORIDE CRTAB 20 MEQ TABCR PO SCH (08:05)
--- NOTE | 2021-04-19 11:43 | Hospitalist Progress Note ---
Date of Service April 19, 2021 Assessment & Plan (1) Decompensated heart failure: Decompensated heart failure: Presenting as fluid retention/weight gain No overt congestion on CXR History of chronic systolic heart failure secondary to ischemic cardiomyopathy EF 20%, TTE 2019) Secondary to medication noncompliance, hx of paranoid schizophrenia Received IV Lasix on admission and now on oral Lasix 80 mg daily We will continue current dose of Lasix as kidney functions remained stable Has been diuresing enough We will continue diuresis for now and supplement potassium as needed Responded very well to diuretics He has been getting his outpatient doses of diuretics RLE cellulitis, recurrent disease, hx lymphedema, no sepsis for now hx Pseudomonas on prior CS Has been on intravenous cefepime and oral doxycycline Gram stain from wound growing gram-negative bacilliawait further identification and sensitivity Antibiotics have been changed to oral Augmentin depending on the sensitivity Right leg swelling has been improving but he still has edematous thigh The pain in the leg has been decreasing Continue with wound care Right lower extremity swelling has improved a lot Advised to keep the right lower extremity elevated while in bed Increasing pain in the legs and back Will try very small dose of Dilaudid IV Still has significant pain in the right leg HTN, currently stable hx CAD status post stent History of severe mitral regurgitation History of PAF, patient NSR, poor candidate for home anticoagulation due to paranoid schizophrenia Denies any cardiac symptoms Heart rate remains stable at 77 History of testicular CA sp surgery and chemotherapy Chronic anemia, hemoglobin improved from baseline Hypothyroidism, TSH slight elevated, patient noncompliant with medication Functional disability, inability to care for self/take medications due to paranoia Past history DVT as per records Past tobacco abuse DVT prophylaxis. Lovenox subcu Full code Discussed with the patient about discharge out of hospital We will get PT and OT evaluation Will be discharged tomorrow Admission and Anticipated Discharge Date Admission Date: April 13, 2021 Subjective 04/14/2021 The patient was seen and examined in medical telemetry unit He has been complaining of shortness of breath and pain with increasing swelling of right lower extremity He denies any shortness of breath at rest Denies any chest pain and/or palpitation 04/15/2021 The patient was seen and examined in medical telemetry unit He has been feeling much better but complains a lot of pain involving the leg and also the back Denies any chest pain, shortness of breath, palpitation, fever or chills Still has swelling of the legs 04/16/2021 The patient was seen and examined in medical telemetry unit He has been feeling much better but is still complains to have swelling involving the right lower abdominal wall and right leg Denies any more pain No fever and/or chills 04/17/2021 The patient was seen and examined in medical telemetry unit He has been feeling well today and complains to have right leg pain Denies any fever and/or chills, no nausea and or vomiting 04/18/2021 The patient was seen and examined in medical telemetry unit He says that he is not ready yet to be discharged Complains of more abdominal pain and dizziness with ambulation 04/19/21 The patient was seen and examined in medical telemetry unit He complains to have more pain in the right leg and also shortness of breath with ambulation He remains generally weak and lethargic He is not yet ready to be discharged Review of Systems Review of Systems: All systems reviewed and are unremarkable except as noted below Respiratory: + dyspnea on exertion Musculoskeletal: Right lower extremity swelling and pain Physical Exam Physical Exam: Lying in bed comfortably Constitutional: average body habitus; not ill appearing Eyes: PERRL, conjunctivae normal, anicteric sclerae ENMT: external ear and nose normal, oropharynx normal Neck: trachea midline, no thyromegaly Respiratory: + respiratory distress (Minimal respiratory distress at rest) Auscultation: + diminished lung sounds; no crackles (Minimal bibasilar crackles) Cardiovascular: Rate/Rhythm: regular rate and regular rhythm Heart Sounds: no murmur Extremities: + edema (Lymphedema on the right leg and right lower leg cellulitis) Gastrointestinal (Abdomen): Inspection/Auscultation: normal bowel sounds; abdomen not distended Percussion/Palpation: abdomen soft; abdomen nontender Musculoskeletal: Right lower extremities much improved with minimal edema Neurologic: Alert, awake and oriented x3 Psychiatric: Affect: + depressed affect and + anxious affect Insight: + limited insight Lymphatic: no cervical or axillary lymphadenopathy Results & Data Results & Data ([facility]) Vital Signs (Past 12 Hours) Vital Signs Temp Pulse Pulse Pulse Resp BP Pulse Ox 04/19/21 11:25 36.3 C L 72 18 121/82 100 04/19/21 07:42 36.3 C L 52 L 18 111/71 97 04/19/21 07:32 48 L 04/19/21 04:13 36.4 C L 79 18 99/65 L 96 04/19/21 01:19 68 04/18/21 23:51 36.6 C 62 18 115/78 99 Laboratory Results BMP 04/19/21 05:46 Sodium 140 Potassium 4.0 Chloride 105 Carbon Dioxide 31 BUN 28 H Creatinine 1.36 Glucose 65 L Calcium 8.6 Medications Administered Current Inpatient Medications Acetaminophen (Acetaminophen 325 Mg Tab) 650 mg PO Q4H PRN PRN Reason: Pain or Fever Stop: 05/14/21 01:27 Amoxicillin/Clavulanate Potassium (Amoxicillin/Clavulanate 875 Mg Tab) 1 tab PO BIDM [facility]; Protocol Stop: 04/20/21 08:01 Last Admin: 04/19/21 08:01 Dose: 1 tab Documented by: Aspirin (Aspirin 81 Mg Ectab) 81 mg PO QAM [facility] Stop: 05/14/21 08:59 Last Admin: 04/19/21 08:01 Dose: Not Given Documented by: Atorvastatin Calcium (Atorvastatin 40 Mg Tab) 80 mg PO [facility] Stop: 05/14/21 20:59 Last Admin: 04/18/21 20:24 Dose: 20 mg Documented by: Doxycycline Hyclate (Doxycycline Hyclate 100 Mg Cap) 100 mg PO BID [facility] Stop: 04/21/21 08:59 Last Admin: 04/19/21 08:02 Dose: 100 mg Documented by: Enoxaparin Sodium (Enoxaparin Inj 30 Mg/0.3 Ml Syr) 30 mg SQ QAM [facility] Stop: 05/17/21 12:29 Last Admin: 04/19/21 08:02 Dose: Not Given Documented by: Furosemide (Furosemide 80 Mg Tab) 80 mg PO DAILY [facility] Stop: 05/14/21 08:59 Last Admin: 04/19/21 08:02 Dose: 80 mg Documented by: Hydromorphone HCl (Hydromorphone Inj 0.5 Mg/0.5 Ml Syr) 0.25 mg IV Q8H PRN PRN Reason: Pain Stop: 04/29/21 11:02 Last Admin: 04/18/21 20:15 Dose: 0.25 mg Documented by: Promethazine HCl 6.25 mg/ (Sodium Chloride) 50.25 mls @ 201 mls/hr IV Q6H PRN PRN Reason: Nausea And Vomiting Stop: 05/14/21 01:27 Levothyroxine Sodium (Levothyroxine Sodium 50 Mcg Tablet) 50 mcg PO DAILYBB [facility] Stop: 05/14/21 06:29 Last Admin: 04/19/21 06:06 Dose: 50 mcg Documented by: Metoprolol Succinate (Metoprolol Succ 25mg Ext Rel Tab) 12.5 mg PO [facility] Stop: 05/14/21 08:59 Last Admin: 04/19/21 08:03 Dose: Not Given Documented by: Ondansetron HCl (Ondansetron Inj 2 Mg/Ml 2 Ml Vial) 4 mg IV Q6H PRN PRN Reason: Nausea And Vomiting Stop: 05/15/21 15:50 Last Admin: 04/18/21 10:07 Dose: 4 mg Documented by: Potassium Chloride (Potassium Chloride Crtab 20 Meq Tabcr) [facility] meq [facility] Stop: 05/16/21 08:59 Last Admin: 04/19/21 08:05 Dose: 20 meq Documented by: Spironolactone (Spironolactone 12.5 Mg Tab) 12.5 mg PO DAILY [facility] Stop: 05/14/21 08:59 Last Admin: 04/19/21 08:03 Dose: 12.5 mg Documented by: Tramadol HCl (Tramadol Hcl 50 Mg Tablet) 25 mg PO Q4H PRN PRN Reason: Pain Stop: 05/14/21 01:27 Last Admin: 04/18/21 10:07 Dose: 25 mg Documented by:
[2021-04-19] MEDS: ONDANSETRON INJ 2 MG/ML 2 ML VIAL IV PRN ×3 (11:49→20:17)
[2021-04-19] MEDS: traMADol HCL 50 MG TABLET PO PRN (11:49)
[2021-04-19] MEDS: HYDROmorphone INJ 0.5 MG/0.5 ML SYR IV PRN ×2 (12:54→20:17)
[2021-04-19] MEDS: ATORVASTATIN 40 MG TAB PO SCH (20:23)
[2021-04-20] MEDS: LEVOTHYROXINE SODIUM 50 MCG TABLET PO SCH (06:00)
[2021-04-20] MEDS: ASPIRIN 81 MG ECTAB PO SCH (09:07)
[2021-04-20] MEDS: ENOXAPARIN INJ 30 MG/0.3 ML SYR SQ SCH (09:07)
[2021-04-20] MEDS: AMOXICILLIN/CLAVULANATE 875 MG TAB PO SCH (09:08)
[2021-04-20] MEDS: POTASSIUM CHLORIDE CRTAB 20 MEQ TABCR PO SCH (09:08)
[2021-04-20] MEDS: DOXYCYCLINE HYCLATE 100 MG CAP PO SCH (09:08)
[2021-04-20] MEDS: METOPROLOL SUCC 25MG EXT REL TAB PO SCH (09:08)
[2021-04-20] MEDS: FUROSEMIDE 80 MG TAB PO SCH (09:08)
[2021-04-20] MEDS: SPIRONOLACTONE 12.5 MG TAB PO SCH (09:08)
[2021-04-20] MEDS: HYDROmorphone INJ 0.5 MG/0.5 ML SYR IV PRN (10:45)
[2021-04-20] MEDS: ONDANSETRON INJ 2 MG/ML 2 ML VIAL IV PRN (10:45)
--- NOTE | 2021-04-20 13:54 | Hospitalist Progress Note ---
Date of Service April 20, 2021 Assessment & Plan (1) Decompensated heart failure: Decompensated heart failure: Presenting as fluid retention/weight gain No overt congestion on CXR History of chronic systolic heart failure secondary to ischemic cardiomyopathy EF 20%, TTE 2019) Secondary to medication noncompliance, hx of paranoid schizophrenia Received IV Lasix on admission and now on oral Lasix 80 mg daily We will continue current dose of Lasix as kidney functions remained stable Has been diuresing enough We will continue diuresis for now and supplement potassium as needed Responded very well to diuretics He has been getting his outpatient doses of diuretics He will be discharged home this afternoon-all of his medications will be given at his bedside RLE cellulitis, recurrent disease, hx lymphedema, no sepsis for now hx Pseudomonas on prior CS Has been on intravenous cefepime and oral doxycycline Gram stain from wound growing gram-negative bacilliawait further identification and sensitivity Antibiotics have been changed to oral Augmentin depending on the sensitivity Right leg swelling has been improving but he still has edematous thigh The pain in the leg has been decreasing Continue with wound care Right lower extremity swelling has improved a lot Advised to keep the right lower extremity elevated while in bed We will continue antibiotics Augmentin and doxycycline for 3 more days Increasing pain in the legs and back Will try very small dose of Dilaudid IV Still has significant pain in the right leg Was advised to continue with Tylenol HTN, currently stable hx CAD status post stent History of severe mitral regurgitation History of PAF, patient NSR, poor candidate for home anticoagulation due to paranoid schizophrenia Denies any cardiac symptoms Heart rate remains stable at 77 History of testicular CA sp surgery and chemotherapy Chronic anemia, hemoglobin improved from baseline Hypothyroidism, TSH slight elevated, patient noncompliant with medication Functional disability, inability to care for self/take medications due to paranoia Past history DVT as per records Past tobacco abuse DVT prophylaxis. Lovenox subcu Full code Discussed with the patient about discharge out of hospital Appreciate PT and OT evaluation-recommended discharge home He will be discharged home this afternoon Admission and Anticipated Discharge Date Admission Date: April 13, 2021 Subjective 04/14/2021 The patient was seen and examined in medical telemetry unit He has been complaining of shortness of breath and pain with increasing swelling of right lower extremity He denies any shortness of breath at rest Denies any chest pain and/or palpitation 04/15/2021 The patient was seen and examined in medical telemetry unit He has been feeling much better but complains a lot of pain involving the leg and also the back Denies any chest pain, shortness of breath, palpitation, fever or chills Still has swelling of the legs 04/16/2021 The patient was seen and examined in medical telemetry unit He has been feeling much better but is still complains to have swelling involving the right lower abdominal wall and right leg Denies any more pain No fever and/or chills 04/17/2021 The patient was seen and examined in medical telemetry unit He has been feeling well today and complains to have right leg pain Denies any fever and/or chills, no nausea and or vomiting 04/18/2021 The patient was seen and examined in medical telemetry unit He says that he is not ready yet to be discharged Complains of more abdominal pain and dizziness with ambulation 04/19/21 The patient was seen and examined in medical telemetry unit He complains to have more pain in the right leg and also shortness of breath with ambulation He remains generally weak and lethargic He is not yet ready to be discharged 04/20/2021 The patient was seen and examined in medical telemetry unit He has been feeling much better and remained stable for the last 2 or 3 days Gets occasional dizziness with ambulation Has had physical therapy without any problem He will be discharged home this afternoon Review of Systems Review of Systems: All systems reviewed and are unremarkable except as noted below Respiratory: + dyspnea on exertion Musculoskeletal: Right lower extremity swelling and pain Physical Exam Physical Exam: Lying in bed comfortably Constitutional: average body habitus; not ill appearing Eyes: PERRL, conjunctivae normal, anicteric sclerae ENMT: external ear and nose normal, oropharynx normal Neck: trachea midline, no thyromegaly Respiratory: + respiratory distress (Minimal respiratory distress at rest) Auscultation: + diminished lung sounds; no crackles (Minimal bibasilar crackles) Cardiovascular: Rate/Rhythm: regular rate and regular rhythm Heart Sounds: no murmur Extremities: + edema (Lymphedema on the right leg and right lower leg cellulitis) Gastrointestinal (Abdomen): Inspection/Auscultation: normal bowel sounds; abdomen not distended Percussion/Palpation: abdomen soft; abdomen nontender Musculoskeletal: No acute arthritis in any joint Neurologic: Alert, awake and oriented x3. Generally weak but no focal neuro deficit Psychiatric: Affect: + depressed affect and + anxious affect Insight: + limited insight Lymphatic: no cervical or axillary lymphadenopathy Results & Data Results & Data ([facility]) Vital Signs (Past 12 Hours) Vital Signs Temp Pulse Pulse Resp BP BP Pulse Ox 04/20/21 10:56 36.7 C 56 L 16 117/74 90 04/20/21 09:51 55 L 04/20/21 07:24 36.4 C L 51 L 16 108/64 98 04/20/21 03:47 36.5 C 52 L 20 103/64 99 Medications Administered Current Inpatient Medications Acetaminophen (Acetaminophen 325 Mg Tab) 650 mg PO Q4H PRN PRN Reason: Pain or Fever Stop: 05/14/21 01:27 Aspirin (Aspirin 81 Mg Ectab) 81 mg PO QAM [facility] Stop: 05/14/21 08:59 Last Admin: 04/20/21 09:07 Dose: Not Given Documented by: Atorvastatin Calcium (Atorvastatin 40 Mg Tab) 80 mg PO HS [facility] Stop: 05/14/21 20:59 Last Admin: 04/19/21 20:23 Dose: 80 mg Documented by: Doxycycline Hyclate (Doxycycline Hyclate 100 Mg Cap) 100 mg PO BID [facility] Stop: 04/21/21 08:59 Last Admin: 04/20/21 09:08 Dose: 100 mg Documented by: Enoxaparin Sodium (Enoxaparin Inj 30 Mg/0.3 Ml Syr) 30 mg SQ QAM [facility] Stop: 05/17/21 12:29 Last Admin: 04/20/21 09:07 Dose: Not Given Documented by: Furosemide (Furosemide 80 Mg Tab) 80 mg PO DAILY [facility] Stop: 05/14/21 08:59 Last Admin: 04/20/21 09:08 Dose: 80 mg Documented by: Hydromorphone HCl (Hydromorphone Inj 0.5 Mg/0.5 Ml Syr) 0.25 mg IV Q8H PRN PRN Reason: Pain Stop: 04/29/21 11:02 Last Admin: 04/20/21 10:45 Dose: 0.25 mg Documented by: Promethazine HCl 6.25 mg/ (Sodium Chloride) 50.25 mls @ 201 mls/hr IV Q6H PRN PRN Reason: Nausea And Vomiting Stop: 05/14/21 01:27 Levothyroxine Sodium (Levothyroxine Sodium 50 Mcg Tablet) 50 mcg PO DAILYBB [facility] Stop: 05/14/21 06:29 Last Admin: 04/20/21 06:00 Dose: 50 mcg Documented by: Metoprolol Succinate (Metoprolol Succ 25mg Ext Rel Tab) [facility] [place]: 05/14/21 08:59 Last Admin: 04/20/21 09:08 Dose: Not Given Documented by: Ondansetron HCl (Ondansetron Inj 2 Mg/Ml 2 Ml Vial) 4 mg IV Q6H PRN PRN Reason: Nausea And Vomiting Stop: 05/15/21 15:50 Last Admin: 04/20/21 10:45 Dose: 4 mg Documented by: Potassium Chloride (Potassium Chloride Crtab 20 Meq Tabcr) 20 meq [facility] [place] Stop: 05/16/21 08:59 Last Admin: 04/20/21 09:08 Dose: 20 meq Documented by: Spironolactone (Spironolactone 12.5 Mg Tab) 12.5 mg PO DAILY [facility] Stop: 05/14/21 08:59 Last Admin: 04/20/21 09:08 Dose: 12.5 mg Documented by: Tramadol HCl (Tramadol Hcl 50 Mg Tablet) 25 mg PO Q4H PRN PRN Reason: Pain Stop: 05/14/21 01:27 Last Admin: 04/19/21 11:49 Dose: 25 mg Documented by:
--- NOTE | 2021-04-20 18:37 | Discharge Summary ---
Date of Service April 20, 2021 Admission HPI Per Admitting Provider History obtained from patient and records. Medical history significant for chronic systolic heart failure secondary to ischemic cardiomyopathy EF 15-20%, TTE 2019), severe mitral regurgitation, CAD status post stent, hypertension, hx PAF, paranoid schizophrenia, past hx DVT, hx testicular CA sp surgery and chemotherapy, past tobacco abuse, chronic anemia (baseline hemoglobin of 10-11), hypothyroidism, history chronic leg lymphedema, medication noncompliance. Recent confinement November 2020 for decompensated heart failure. Patient [facility] to [facility]. Patient ran out of Lasix prescription last month. Did not call PCPs office for refill. Patient not answering calls from outpatient case management as per documentation. In the last week, patient noted abdominal distention, weight gain, some shortness of breath, no unusual chest pain, no unusual cough symptoms. Right leg swelling with foul-smelling drainage. No fever, no chills. Patient given Lasix and Zosyn at the ER for CHF and cellulitis, respectively. Medical History as above Surgical History : Appendectomy, orchiectomy Family History : Heart disease Personal/Social history : Past tobacco abuse, no EtOH intake, disabled Admission Exam Per Admitting Provider Physical Exam: GENERAL: Comfortable, unkempt, no respiratory distress SKIN: Pallor, warm HEENT: Pale palpebral conjunctivae, no ptosis, dry buccal mucosa NECK : Supple, no tenderness CHEST : CTA, no tenderness HEART : RRR, apical systolic murmur ABDOMEN: Some distention, nontender EXTREMITIES : Tender RLE induration with foul-smelling yellow drainage, no other conspicuous deformities noted NEUROLOGIC : Coherent, no facial asymmetry, no other gross focality Principal Diagnosis Decompensated heart failure, right lower leg cellulitis, CAD status post stent, history of PAF, hypothyroidism, hypertension Discharge Exam Constitutional average body habitus; not ill appearing Eyes PERRL, conjunctivae normal, anicteric sclerae ENMT external ear and nose normal, oropharynx normal Neck trachea midline, no thyromegaly Respiratory + respiratory distress (Minimal respiratory distress at rest) Auscultation: + diminished lung sounds; no crackles (Minimal bibasilar crackles) Cardiovascular Rate/Rhythm: regular rate and regular rhythm Heart Sounds: no murmur Extremities: + edema (Lymphedema on the right leg and right lower leg cellulitis) Gastrointestinal (Abdomen) Inspection/Auscultation: normal bowel sounds; abdomen not distended Percussion/Palpation: abdomen soft; abdomen nontender Psychiatric Affect: + depressed affect and + anxious affect Insight: + limited insight Lymphatic no cervical or axillary lymphadenopathy Discharge Data Allergies Allergy/AdvReac Type Severity Reaction Status Date / Time horse dander Allergy Unknown Unknown Verified 04/13/21 20:46 tetanus toxoid, adsorbed Allergy Unknown Unknown Verified 04/13/21 20:46 Consultations 04/13/21 21:42 ED Decision to Admit Stat Ordered Studies 04/13/21 23:48 US venous doppler LE RT Urgent Hospital Course (1) Decompensated heart failure: Decompensated heart failure: Presenting as fluid retention/weight gain No overt congestion on CXR History of chronic systolic heart failure secondary to ischemic cardiomyopathy EF 20%, TTE 2019) Secondary to medication noncompliance, hx of paranoid schizophrenia Received IV Lasix on admission and now on oral Lasix 80 mg daily We will continue current dose of Lasix as kidney functions remained stable Has been diuresing enough We will continue diuresis for now and supplement potassium as needed Responded very well to diuretics He has been getting his outpatient doses of diuretics He will be discharged home this afternoon-all of his medications will be given at his bedside RLE cellulitis, recurrent disease, hx lymphedema, no sepsis for now hx Pseudomonas on prior CS Has been on intravenous cefepime and oral doxycycline Gram stain from wound growing gram-negative bacilliawait further identification and sensitivity Antibiotics have been changed to oral Augmentin depending on the sensitivity Right leg swelling has been improving but he still has edematous thigh The pain in the leg has been decreasing Continue with wound care Right lower extremity swelling has improved a lot Advised to keep the right lower extremity elevated while in bed We will continue antibiotics Augmentin and doxycycline for 3 more days Increasing pain in the legs and back Will try very small dose of Dilaudid IV Still has significant pain in the right leg Was advised to continue with Tylenol HTN, currently stable hx CAD status post stent History of severe mitral regurgitation History of PAF, patient NSR, poor candidate for home anticoagulation due to paranoid schizophrenia Denies any cardiac symptoms Heart rate remains stable at 77 History of testicular CA sp surgery and chemotherapy Chronic anemia, hemoglobin improved from baseline Hypothyroidism, TSH slight elevated, patient noncompliant with medication Functional disability, inability to care for self/take medications due to paranoia Past history DVT as per records Past tobacco abuse DVT prophylaxis. Lovenox subcu Full code Discussed with the patient about discharge out of hospital Appreciate PT and OT evaluation-recommended discharge home He will be discharged home this afternoon Total Time Total Time Spent Total Time Spent (In Minutes): 45 minutes Total Time Includes: Examination of the Patient, Discharge Planning, Medication Reconciliation and Communication With Other Providers Discharge Plan Discharge Items Patient Disposition: Home - Self-Care Reason For Visit: ANEMIA, GI BLEED Discharge Diagnosis: Decompensated heart failure, right lower leg cellulitis, CAD status post stent, history of PAF, hypothyroidism, hypertension Condition on Discharge: Fair Activity: Resume your previous activity Non-emergency contact: Primary Care Provider Call non-emergency contact if: you have any medication questions and your symptoms worsen Follow-up/Referrals: Misty Vora MD [Physician] - (Date & Time 04/21/2021 10:00 AM Provider Yesica Donnelly MD Department General Internal Medicine [facility] ) Diet: Heart Healthy Fluids: 1800ml (7 cups) Addtl Attending Provider Instructions: Please take extreme precaution to avoid falls Take your medications as directed Please keep your appointment with Dr. Vora and get more medications through your pharmacy Try to keep your leg wound clean and dry Try [id number] Tylenol to control pain Pending Studies at Discharge: No Stand-Alone Forms: [facility], Smoking Cessation Medications and DC Order Prescriptions: New doxycycline hyclate 100 mg Capsule 100 mg PO BID 6 Days Qty: 12 RF: 0 potassium chloride [Klor-Con M20] 20 mEq Tablet,Er Particles/Crystals 20 meq PO QAM 30 Days Qty: 30 RF: 0 tramadol 50 mg Tablet 25 mg PO Q4H PRN (Reason: pain) 5 Days Qty: 15 RF: 0 Continued atorvastatin [Lipitor] 80 mg tablet 80 mg PO HS 30 Days Qty: 30 RF: 1 aspirin 81 mg Tablet,Delayed Release (Dr/Ec) 81 mg PO QAM 90 Days Qty: 90 RF: 1 spironolactone 25 mg Tablet 12.5 mg PO DAILY 60 Days Qty: 30 RF: 1 furosemide [Lasix] 80 mg tablet 80 mg PO DAILY 30 Days Qty: 30 RF: 1 levothyroxine [Synthroid] 50 mcg Tablet 50 mcg PO DAILYBB 30 Days Qty: 30 RF: 1 metoprolol succinate 25 mg Tablet Extended Release 24 Hr 12.5 mg PO QAM 60 Days Qty: 30 RF: 1 Discharge Orders: Discharge Order (Routine); Ordered 04/20/21 Ordered By: Meredith Gonzalez Admission Data Admit Date/Time: 04/13/21 23:52 Attending Provider: Meredith Gonzalez Admit Provider: Trung Montiel Primary Care Provider: PCP,NO Other Providers: Trung Montiel Other Interventions: Discharge Summary Assessment (RN) Last Done: 04/20/21 16:54
== END 2021-04-20 18:08 | disposition home or self-care (01) | DRG 292 ==
LOC: ED 19:34 → 2N 23:52

== ENCOUNTER 2021-10-26 17:07 | Inpatient (IN) ==
[2021-10-26 17:49] LABS: Basophils # (auto) 0.01 K/uL (0-0.2); Basophils % (auto) 0.1 %; Eosinophils # (auto) 0.03 K/uL (0-0.5); Eosinophils % (auto) 0.4 %; Hematocrit (blood only) 36.4 % (42-52); Hemoglobin 11.1 g/dL (14.0-18.0); Immature Granulocytes # (auto) 0.01 K/uL (0.00-0.02); Immature Granulocytes % (auto) 0.1 %; Lymphocytes # (auto) 0.63 K/uL (1.2-3.4); Lymphocytes % (auto) 8.1 %; Mean Corpuscular Hemoglobin 27.3 pg (25-34); Mean Corpuscular Hgb Conc 30.5 g/dL (32-36); Mean Corpuscular Volume 89.4 fL (80-100); Mean Platelet Volume 9.5 fL (7.4-10.4); Monocytes # (auto) 0.52 K/uL (0.11-0.59); Monocytes % (auto) 6.7 %; Neutrophils # (auto) 6.56 K/uL (1.4-6.5); Neutrophils % (auto) 84.6 %; Platelet Count 261 K/uL (130-400); RDW Coefficient of Variation 15.9 % (11.5-14.5); Red Blood Count 4.07 M/uL (4.7-6.1); White Blood Count 7.76 K/uL (4.8-10.8)
[2021-10-26 18:14] LABS: Alanine Aminotransferase 9 (12-78); Albumin Globulin Ratio 0.4 (0.9-2); Albumin Level 2.1 gm/dl (3.4-5.0); Alkaline Phosphatase 222 U/L (45-117); Aspartate Aminotransferase 15 U/L (15-37); BUN Creatinine Ratio 15.4 (10-20); Bilirubin,Total 1.5 mg/dl (0.2-1); Blood Urea Nitrogen 15 mg/dl (7-18); Calcium 8.9 mg/dl (8.5-10.1); Carbon Dioxide 24 mmol/L (21-32); Chloride 112 mmol/L (98-107); Est GFR (African American) 89.7 ml/min; Est GFR (Non-African American) 77.4 ml/min; Globulin 5.8 gm/dl (2.5-4.0); Glucose 91 mg/dl (70-99); Potassium 4.4 mmol/L (3.5-5.1); Sodium 140 mmol/L (136-145); Total Protein 7.9 gm/dl (6.4-8.2)
--- NOTE | 2021-10-26 19:15 | XRay Report ---
XR chest 1V portable CLINICAL HISTORY: Lower extremity edema. COMPARISON STUDY: Chest CT December 06, 2020. Chest radiograph April 13, 2021. FINDINGS: Marked cardiomegaly is similar to prior exam. Small right pleural effusion is present. Ther e is no pneumothorax. There is pulmonary vascular congestion. Possible minimal right midlung opacity is noted. IMPRESSION: 1. Cardiomegaly with pulmonary vascular congestion. 2. Trace right pleural effusion. 3. Minimal right midlung opacity. Radiographic follow-up to ensure resolution is recommended. ACT 112: Negative or not required by law. Electronically signed by: Terence Donahue M.D. 10/26/2021 7:14 PM
--- NOTE | 2021-10-26 19:18 | XRay Report ---
XR tibia fibula RT 2V CLINICAL HISTORY: cellulitis, eval for osseous involvement COMPARISON: Right tibia and fibula radiographs March 02, 2014. FINDINGS: No acute fracture within the right tibia or fibula is noted. Periosteal thickening of the right fibula and to a lesser extent the distal right tibia is similar to prior exams. This is chronic and may be related to venous stasis. Soft tissue edema is present. Posterior calcaneal spurring is p resent. IMPRESSION: 1. No acute fracture. No radiographic evidence for acute osteomyelitis within the right tibia or fibu la. 2. No change in periosteal thickening of the right fibula and tibia since prior exam. This may be rel ated to chronic stasis. 3. Right lower extremity edema and soft tissue nodularity. ACT 112: Negative or not required by law. Electronically signed by: Terence Donahue M.D. 10/26/2021 7:17 PM
[2021-10-26 19:31] LABS: C Reactive Protein 9.38 mg/dl (0-0.29)
[2021-10-26 19:38] LABS: NT Pro B Type Natriuretic Pept 24552 pg/ml (0-900); Troponin I < 0.015 ng/ml (0-0.045)
[2021-10-26] MEDS ORDERED: DAPTOmycin 400 MG in SYRINGE 0 ML IV ONE (20:11)
[2021-10-26] MEDS ORDERED: PIPERACILL/TAZOBAC CONSULT ACTIVE PRN (20:11)
[2021-10-26] MEDS ORDERED: PIPERACILLIN/TAZOBACTAM 4.5 GM/120 ML BAG IV ONE (20:11)
[2021-10-26] MEDS ORDERED: ACETAMINOPHEN 1,000 MG/100 ML VIAL IV STA (20:13)
--- NOTE | 2021-10-26 20:47 | Ultrasound Report ---
RIGHT LOWER EXTREMITY VENOUS DOPPLER CLINICAL HISTORY: Right lower extremity edema. COMPARISON STUDY: Right lower extremity venous Doppler ultrasound April 14, 2021. TECHNIQUE: Sonography of the deep venous system of the right lower extremity was performed. Compress ion and augmentation were evaluated. FINDINGS: The right common femoral, superficial femoral and popliteal veins were compressible. Augme ntation was normal. Flow was shown within the deep calf vessels. Lower extremity edema is incidentall y noted. IMPRESSION: No evidence of deep venous thrombus within the right lower extremity. ACT 112: Negative or not required by law. Electronically signed by: Terence Donahue M.D. 10/26/2021 8:46 PM
--- NOTE | 2021-10-26 21:01 | History & Physical Report ---
Date of Service October 26, 2021 Assessment & Plan (1) Cellulitis of right lower extremity: (2) Acute on chronic congestive heart failure: (3) Hypothyroidism: (4) CKD (chronic kidney disease), stage III: (5) DMII (diabetes mellitus, type 2): (6) A-fib: (7) Non-compliance: Plan: This is a 71yo M with a PMH of chronic systolic heart failure secondary to ischemic cardiomyopathy EF 15-20%, TTE 2019), severe mitral regurgitation, CAD status post stent, hypertension, hx PAF, paranoid schizophrenia, past hx DVT, hx testicular CA sp surgery and chemotherapy, hypothyroidism, history chronic leg lymphedema, medication noncompliance who presents with worsening right lower extremity swelling and clear drainage. Please see Dr. Montiel's addendum for assessment and plan. History of Present Illness Chief Complaint: RLE edema Primary Care Provider: Misty Vora MD This is a 71yo M with a PMH of chronic systolic heart failure secondary to ischemic cardiomyopathy EF 15-20%, TTE 2019), severe mitral regurgitation, CAD status post stent, hypertension, hx PAF, paranoid schizophrenia, past hx DVT, hx testicular CA sp surgery and chemotherapy, hypothyroidism, history chronic leg lymphedema, medication noncompliance who presents with worsening right lower extremity swelling and clear drainage. Denies any pain or wounds to his lower leg. Also states he is having worsening left hip pain with radiation to left thigh. Having more difficulty ambulating around his apartment due to this discomfort. Has not had medications refilled since last discharged from the hospital. Does endorse chest pain few days ago that is since resolved. No fever, chills, lightheadedness, headache, nausea, vomiting, abdominal pain, dysuria, diarrhea or constipation. Chronic shortness of breath that is unchanged. In the ED, patient is afebrile and hemodynamically stable. No leukocytosis. ESR 76, CRP 9.38, proBNP 24,552. Procalcitonin within normal limits. Chest x- ray with cardiomegaly and pulmonary vascular congestion, trace right pleural effusion, right midlung opacity visualized. Right tib-fib x-ray without f racture or evidence of osteomyelitis. Presence of right lower extremity edema and soft tissue nodularity. Right venous Doppler without evidence of DVT. Allergies Allergy/AdvReac Type Severity Reaction Status Date / Time horse dander Allergy Unknown Unknown Verified 04/13/21 20:46 tetanus toxoid, adsorbed Allergy Unknown Unknown Verified 04/13/21 20:46 Home Medications Medication Instructions Recorded Confirmed Type aspirin 81 mg tablet,delayed 81 mg PO QAM 90 Days #90 tab 04/20/21 10/26/21 Rx release atorvastatin 80 mg tablet (Lipitor) 80 mg PO HS 30 Days #30 tab 04/20/21 10/26/21 Rx furosemide 80 mg tablet (Lasix) 80 mg PO DAILY 30 Days #30 tab 04/20/21 10/26/21 Rx levothyroxine 50 mcg tablet 50 mcg PO DAILYBB 30 Days #30 tab 04/20/21 10/26/21 Rx (Synthroid) metoprolol succinate 25 mg 12.5 mg PO QAM 60 Days #30 tab 04/20/21 10/26/21 Rx tablet,extended release 24 hr spironolactone 25 mg tablet 12.5 mg PO DAILY 60 Days #30 tab 04/20/21 10/26/21 Rx potassium chloride 20 mEq 20 meq PO DAILY 10/26/21 10/26/21 History tablet,extended release(part/cryst) (Klor-Con M) Past Med/Surg History Medical History CAD (coronary artery disease) Cholecystitis, acute Chronic systolic CHF (congestive heart failure) History of DVT (deep vein thrombosis) History of pancreatitis History of testicular cancer History of tobacco abuse Homelessness HTN (hypertension) Hypertension Hyperthyroidism Ischemic cardiomyopathy Lymphedema of right lower extremity Mitral regurgitation Palliative care encounter Pleural effusion Schizophrenia STEMI (ST elevation myocardial infarction) Tricuspid regurgitation Surgical History Hx of heart artery stent Status post cardiac catheterization Family History Other Unknown family medical history Social History Smoking Status: Former smoker Tobacco Type: Cigarettes Number of Years Since Quit: 10; Second Hand Exposure: No; Hx Alcohol Use: No Hx Substance Use: No Preferred Language: Maori Communication Ability: Effective Trim Installer Required: No Beliefs That Will Affect Care: None marital status: Single Current Living Situation: Alone Current Living Situation Comment: Charissa Rapp. Nabeel @ housing Transitions How many Children do You have: 0 Feels Safe at Home: Yes Assistive Devices: None Review of Systems Review of Systems: At least ten systems reviewed and negative except as noted in the HPI. Physical Exam Physical Exam: General Appearance: vitals as above, NAD, sitting in bed, pleasant, poorly groomed Head: normocephalic, atraumatic Eyes: normal inspection, PERRL, conjunctivae normal, anicteric sclerae ENT: external ear and nose normal, oropharynx normal Neck: normal visual inspection, trachea midline, no thyromegaly Respiratory: coarse breath sounds bilaterally, no wheeze or rhonchi. No accessory muscle use Cardiovascular: regular rate, rhythm, no murmur, normal peripheral pulses, no BLE edema. Vessels: no JVD Chest: normal inspection of chest Abdomen/GI: normal bowel sounds, soft, nontender, no hepatosplenomegaly Extremities/Musculoskeletal: RLE with chronic lymphedema and serous weeping. No purulent drainage. No cyanosis or clubbing, extremities motor strength 5/5 Neurologic: PERRL, EOMI, accommodation nl, no face palsy, no dysarthria, CN's II-XI intact bilaterally and moves all extremities Psychiatric: A+Ox3, euthymic affect Skin: no rashes, normal color, warm/dry Results & Data Results & Data ([facility]) Vital Signs (Past 12 Hours) Vital Signs Temp Pulse Pulse Resp BP BP Pulse Ox 10/26/21 18:40 98 10/26/21 18:38 82 18 132/85 100 10/26/21 17:14 36.6 C 96 H 18 158/99 H 97 Laboratory Results Short CBC 10/26/21 Range/Units 17:22 WBC 7.76 (4.8-10.8) K/uL Hgb 11.1 L (14.0-18.0) g/dL Hct 36.4 L (42-52) % Plt Count 261 (130-400) K/uL BMP 10/26/21 17:22 Sodium 140 Potassium 4.4 Chloride 112 H Carbon Dioxide 24 BUN 15 Creatinine 0.99 Glucose 91 Calcium 8.9 Cardiac Enzymes 10/26/21 Range/Units 17:22 Troponin I < 0.015 (0-0.045) ng/ml Liver Function 10/26/21 Range/Units 17:22 Total Bilirubin 1.5 H (0.2-1) mg/dl AST 15 (15-37) U/L ALT 9 L (12-78) Alkaline Phosphatase 222 H D (45-117) U/L Albumin 2.1 L (3.4-5.0) gm/dl Diagnostic Findings Tibia/Fibula X-Ray 10/26/21 18:45 XR tibia fibula RT 2V CLINICAL HISTORY: cellulitis, eval for osseous involvement COMPARISON: Right tibia and fibula radiographs March 02, 2014. FINDINGS: No acute fracture within the right tibia or fibula is noted. Periosteal thickening of the right fibula and to a lesser extent the distal right tibia is similar to prior exams. This is chronic and may be related to venous stasis. Soft tissue edema is present. Posterior calcaneal spurring is present. IMPRESSION: 1. No acute fracture. No radiographic evidence for acute osteomyelitis within the right tibia or fibula. 2. No change in periosteal thickening of the right fibula and tibia since prior exam. This may be related to chronic stasis. 3. Right lower extremity edema and soft tissue nodularity. ACT 112: Negative or not required by law. Electronically signed by: Terence Donahue M.D. 10/26/2021 7:17 PM Chest X-Ray 10/26/21 18:50 XR chest 1V portable CLINICAL HISTORY: Lower extremity edema. COMPARISON STUDY: Chest CT December 06, 2020. Chest radiograph April 13, 2021. FINDINGS: Marked cardiomegaly is similar to prior exam. Small right pleural effusion is present. There is no pneumothorax. There is pulmonary vascular congestion. Possible minimal right midlung opacity is noted. IMPRESSION: 1. Cardiomegaly with pulmonary vascular congestion. 2. Trace right pleural effusion. 3. Minimal right midlung opacity. Radiographic follow-up to ensure resolution is recommended. ACT 112: Negative or not required by law. Electronically signed by: Terence Donahue M.D. 10/26/2021 7:14 PM Venous Doppler Study 10/26/21 18:52 RIGHT LOWER EXTREMITY VENOUS DOPPLER CLINICAL HISTORY: Right lower extremity edema. COMPARISON STUDY: Right lower extremity venous Doppler ultrasound April 14, 2021. TECHNIQUE: Sonography of the deep venous system of the right lower extremity was performed. Compression and augmentation were evaluated. FINDINGS: The right common femoral, superficial femoral and popliteal veins were compressible. Augmentation was normal. Flow was shown within the deep calf vessels. Lower extremity edema is incidentally noted. IMPRESSION: No evidence of deep venous thrombus within the right lower extremity. ACT 112: Negative or not required by law. Electronically signed by: Terence Donahue M.D. 10/26/2021 8:46 PM Supervising Physician Co-Signing Physician Notes IM ATTENDING : Patient seen and examined. History obtained from patient and records. Preceding documentation by Ms. Berta Baumann PA-C reviewed. In addition, patient complaining of inability to move around the last few days because of left hip pain. FINAL ASSESSMENT AND PLAN as follows : Decompensated heart failure: Mild symptoms hx chronic systolic heart failure secondary to ischemic cardiomyopathy EF 20%, TTE 2019) Secondary to functional disability owing to schizophrenia/medication noncompliance Patient ran out of medications months ago but did not call for refills. Has not had outpatient follow-up visit with assigned [facility] PCP/[facility] meat wrapper since discharge. Patient also unable to answer calls from [facility] social workers. RLE cellulitis, recurrent disease, hx lymphedema, no sepsis for now Left hip pain rule out fracture HTN, slightly elevated severe mitral regurgitation hx CAD status post stent hx PAF, patient NSR, poor candidate for home anticoagulation due to paranoid schizophrenia hx testicular CA sp surgery and chemotherapy chronic anemia, hemoglobin at baseline Hypothyroidism, elevated secondary to medication noncompliance Functional disability, inability to care for self/take medications due to paranoia Past history DVT as per records Past tobacco abuse Medical telemetry facilitate home diuretic Rx Strict I/Os, daily weights, CHF education Cefepime, Doxycycline for cellulitis, Wound care nurse consult Plain x-rays of the left hip RLE pain PT OT eval if no fracture on left hip x-ray Social service RE discharge planning; check eligibility for [facility] given patient transport concerns/living situation DVT prophylaxis. Dayx subcu Full code Text document was generated using LPATH voice recognition software. It may contain grammatical or spelling errors. Kindly contact undersigned for clarification of any documentation item in question. (1) Acute on chronic congestive heart failure Heart failure type: unspecified Qualified Code(s): I50.9 - Heart failure, unspecified (2) A-fib Atrial fibrillation type: unspecified Qualified Code(s): I48.91 - Unspecified atrial fibrillation
--- NOTE | 2021-10-26 21:02 | Emergency Department Note ---
Impression & Plan Cellulitis of right lower extremity, Lymphedema, Elevated erythrocyte sedimentation rate, Elevated C-reactive protein ED Provider Note NAME: LUZ MARINA MORALEZ AGE: 71 SEX: M ARRIVES VIA: Ambulance INFORMANT: Patient ED PROVIDER(S): Mic Mcleod MD CHIEF COMPLAINT: Cellulitis PLAN: Disposition: Admit MEDICAL DECISION MAKING: The patient is a pleasant 71-year-old gentleman with a past medical history of chronic systolic heart failure secondary ischemic cardiomyopathy with EF of 15- 20%, CAD, hypertension, history of paroxysmal atrial fibrillation, paranoid schizophrenia, hypothyroidism, chronic leg lymphedema, medication noncompliance, homelessness who presents to the emergency department for evaluation of right lower leg pain swelling and recurrence of discharge over the past several days. The patient is a poor historian and reports that he has been dressing his like himself and last changed 5 days ago and reports he does not change it frequently because he understands that he was not supposed to do this. He reports feeling fatigued but denies any fevers, chills, cough, congestion, GI or symptoms. On arrival the patient is disheveled appearing but no acute distress, afebrile stable vital signs. He has 3+ pitting edema of the right lower leg with foul- smelling sero-purulent drainage/weeping without discrete areas of fluctuance. There is no discrete tenderness to palpation. There is no crepitus. There is no significant warmth. EKG without overt acute ischemia. Chest x-ray with mild venous congestion and question of right midlung opacity however the patient denies respiratory symptoms. WBC within normal limits. H/H 11/36 similar prior range of values. Platelets within normal limits. Chemistry without metabolic acidosis. LFTs without significant abnormality. Troponin negative/undetectable. BNP 24K in setting of the patient's known systolic heart failure. ESR elevated at 76 and CRP was elevated at 9.3. Procalcitonin is not significantly elevated. Plain films of the right lower leg without overt evidence of osseous involvement. Right lower extremity venous Doppler study was negative for DVT. Patient was treated empirically following blood cultures with Zosyn and daptomycin. Patient is agreement of plan for admission for further management. [facility] for [facility]. Triage Nursing notes reviewed and agree them. prior medical records reviewed Vital Signs: reviewed and remarkable for no significant abnormalities Differential diagnosis: Cellulitis, abscess, MRSA infection, DVT, necrotizing fasciitis, dermatitis, drug eruption, allergic reaction, as well as other pathologies. ER treatment provided: See below. Diagnostics interpreted by me: ECG: Atrial fibrillation with PVCs, 91 bpm, no overt ST elevation or depression, QTC 496, QRS 90. Cardiac Monitoring: An order for continuous cardiac monitoring was placed and demonstrated defibrillation, 91 bpm, PVCs. Laboratory studies: see below Imaging studies: See below Consultation(s): Case was discussed with Dr. Montiel, [facility] hospitalist, who will evaluate the patient for admission. HPI: The patient is a pleasant 71-year-old gentleman with a past medical history of chronic systolic heart failure secondary ischemic cardiomyopathy with EF of 15-20%, CAD, hypertension, history of paroxysmal atrial fibrillation, paranoid schizophrenia, hypothyroidism, chronic leg lymphedema, medication noncompliance, homelessness who presents to the emergency department for evaluation of right lower leg pain swelling and recurrence of discharge over the past several days. The patient is a poor historian and reports that he has been dressing his like himself and last changed 5 days ago and reports he does not change it frequently because he understands that he was not supposed to do this. He reports feeling fatigued but denies any fevers, chills, cough, congestion, GI or symptoms. ROS: See above HPI for pertinent positives & negatives. A total of 10 systems reviewed and were otherwise negative. PAST MEDICAL HISTORY: see Below PAST SURGICAL HISTORY: see Below FAMILY HISTORY:See Below SOCIAL HISTORY: see Below HOME MEDICATIONS: see Below ALLERGIES: see Below VITALS: see Below PHYSICAL EXAMINATION: GENERAL: Awake, alert, disheveled-appearing, in no distress HENT: Normocephalic, atraumatic. Oropharynx unremarkable. EYES: Normal conjunctiva. Sclera non-icteric. NECK: Supple. No nuchal rigidity. FROM. No JVD. RESPIRATORY: Clear to auscultation. CARDIAC: Regular rate, irregular rhythm. Extremities warm and well perfused. Pulses equal. ABDOMEN: Soft, non-distended. No tenderness to palpation. No rebound or guardi ng. No masses. RECTAL: Deferred. MUSCULOSKELETAL: Chest examination reveals no tenderness. The back is symmetrical on inspection without obvious abnormality. There is no CVA tenderness to palpation. No joint edema. LOWER EXTREMITIES: 3+ pitting edema of the right lower leg with foul-smelling sero-purulent drainage/weeping without discrete areas of fluctuance. There is no discrete tenderness to palpation. There is no crepitus. There is no significant warmth. NEURO: Normal sensorium. No sensory or motor deficits noted. SKIN: No rash or jaundice noted. Mic Mcleod MD Past Med/Surg History Medical History CAD (coronary artery disease) Cholecystitis, acute Chronic systolic CHF (congestive heart failure) History of DVT (deep vein thrombosis) History of pancreatitis History of testicular cancer History of tobacco abuse Homelessness HTN (hypertension) Hypertension Hyperthyroidism Ischemic cardiomyopathy Lymphedema of right lower extremity Mitral regurgitation Palliative care encounter Pleural effusion Schizophrenia STEMI (ST elevation myocardial infarction) Tricuspid regurgitation Surgical History Hx of heart artery stent Status post cardiac catheterization Family History Other Unknown family medical history Social History Smoking Status: Former smoker Tobacco Type: Cigarettes Number of Years Since Quit: 10; Second Hand Exposure: No; Hx Alcohol Use: No Hx Substance Use: No Preferred Language: Slovenian Communication Ability: Effective Deputy Fire Marshal Required: No Beliefs That Will Affect Care: None marital status: Single Current Living Situation: Alone Current Living Situation Comment: Charissa Lees @ housing Transitions How many Children do You have: 0 Feels Safe at Home: Yes Assistive Devices: None Allergies Allergies Allergy/AdvReac Type Severity Reaction Status Date / Time horse dander Allergy Unknown Unknown Verified 04/13/21 20:46 tetanus toxoid, adsorbed Allergy Unknown Unknown Verified 04/13/21 20:46 Home Meds Home Medications Medication Instructions Recorded Confirmed potassium chloride 20 mEq 20 meq PO DAILY 10/26/21 10/26/21 tablet,extended release(part/cryst) (Klor-Con M) Previous Rx's Medication Instructions Recorded aspirin 81 mg tablet,delayed 81 mg PO QAM 90 Days #90 tab 04/20/21 release atorvastatin 80 mg tablet (Lipitor) 80 mg PO HS 30 Days #30 tab 04/20/21 furosemide 80 mg tablet (Lasix) 80 mg PO DAILY 30 Days #30 tab 04/20/21 levothyroxine 50 mcg tablet 50 mcg PO DAILYBB 30 Days #30 tab 04/20/21 (Synthroid) metoprolol succinate 25 mg 12.5 mg PO QAM 60 Days #30 tab 04/20/21 tablet,extended release 24 hr spironolactone 25 mg tablet 12.5 mg PO DAILY 60 Days #30 tab 04/20/21 Results & Data (ED) Vital Signs Vital Signs - 24 hr 10/26/21 17:14 10/26/21 18:38 10/26/21 18:40 Temperature 36.6 C Temperature Source Temporal Artery Scan Pulse Rate 96 H Pulse Rate [Finger] 82 Pulse Rhythm [Finger] Regular Pulse Strength [Finger] Normal Respiratory Rate 18 18 Respiratory Effort / Characteristics Non-Labored Spontaneous Respiratory Depth Normal Respiratory Pattern Blood Pressure 158/99 H Blood Pressure [Right Arm] 132/85 Blood Pressure Mean 118 Blood Pressure Mean [Right Arm] 100 Blood Pressure Position [Right Arm] Semi-fowlers Pulse Oximetry 97 100 98 Oxygen Delivery Method Room Air Room Air Room Air Oxygen Flow Rate 0 Sepsis Recent Fever Within 48 Hours No Sepsis New/Unexplained Change in Mental Status N/A Sepsis Action Taken by Nursing No Action Required 10/26/21 20:00 10/26/21 22:00 Temperature Temperature Source Pulse Rate Pulse Rate [Finger] 89 69 Pulse Rhythm [Finger] Regular Regular Pulse Strength [Finger] Normal Normal Respiratory Rate 18 18 Respiratory Effort / Characteristics Non-Labored Spontaneous Non-Labored Spontaneous Respiratory Depth Normal Normal Respiratory Pattern Regular Regular Blood Pressure Blood Pressure [Right Arm] 151/96 H 151/96 H Blood Pressure Mean Blood Pressure Mean [Right Arm] 114 114 Blood Pressure Position [Right Arm] Semi-fowlers Semi-fowlers Pulse Oximetry 97 100 Oxygen Delivery Method Room Air Room Air Oxygen Flow Rate Sepsis Recent Fever Within 48 Hours Sepsis New/Unexplained Change in Mental Status Sepsis Action Taken by Nursing Laboratory Data Attestation: I reviewed the patient's lab results. Result diagrams: 10/26/21 17:22 10/26/21 17:22 Lab Results 10/26/21 10/26/21 10/26/21 Range/Units 17:22 17:22 19:23 WBC 7.76 (4.8-10.8) K/uL RBC 4.07 L (4.7-6.1) M/uL Hgb 11.1 L (14.0-18.0) g/dL Hct 36.4 L (42-52) % MCV 89.4 (80-100) fL MCH 27.3 (25-34) pg MCHC 30.5 L (32-36) g/dL RDW Std Deviation 52.0 H (36.4-46.3) fL RDW Coeff of Dante 15.9 H (11.5-14.5) % Plt Count 261 (130-400) K/uL MPV 9.5 (7.4-10.4) fL Immature Gran % (Auto) 0.1 % Neut % (Auto) 84.6 % Lymph % (Auto) 8.1 % [place] % (Auto) 6.7 % Eos % (Auto) 0.4 % Baso % (Auto) 0.1 % Neut # (Auto) 6.56 H (1.4-6.5) K/uL Lymph # (Auto) 0.63 L (1.2-3.4) K/uL [place] # (Auto) 0.52 (0.11-0.59) K/uL Eos # (Auto) 0.03 (0-0.5) K/uL Baso # (Auto) 0.01 (0-0.2) K/uL Immature Gran # (Auto) 0.01 (0.00-0.02) K/uL ESR 76 H (0-20) mm/hr Sodium 140 (136-145) mmol/L Potassium 4.4 (3.5-5.1) mmol/L Chloride 112 H (98-107) mmol/L Carbon Dioxide 24 (21-32) mmol/L Anion Gap 4.0 (3-11) BUN 15 (7-18) mg/dl Creatinine 0.99 (0.6-1.4) mg/dl Est Cr Clr Drug Dosing Not Reportable Est GFR ( Amer) 89.7 ml/min Est GFR (Non-Af Amer) 77.4 ml/min BUN/Creatinine Ratio 15.4 (10-20) Glucose 91 (70-99) mg/dl Lactate (0.4-2.0) mmol/L Calcium 8.9 (8.5-10.1) mg/dl Magnesium 2.2 (1.8-2.4) mg/dl Total Bilirubin 1.5 H (0.2-1) mg/dl AST 15 (15-37) U/L ALT 9 L (12-78) Alkaline Phosphatase 222 H D (45-117) U/L Troponin I < 0.015 (0-0.045) ng/ml C-Reactive Protein 9.38 H (0-0.29) mg/dl NT-Pro-B Natriuret Pep 14824 H (0-900) pg/ml Total Protein 7.9 (6.4-8.2) gm/dl Albumin 2.1 L (3.4-5.0) gm/dl Globulin 5.8 H (2.5-4.0) gm/dl Albumin/Globulin Ratio 0.4 L (0.9-2) Procalcitonin (0-0.5) ng/ml TSH 13.800 H (0.300-4.500) uIu/ml Free T4 1.09 (0.8-1.6) ng/dl Specimen Hemolysis SARS-CoV-2, RNA, NAAT (NEGATIVE) 10/26/21 10/26/21 10/26/21 Range/Units 19:23 19:23 21:02 WBC (4.8-10.8) K/uL RBC (4.7-6.1) M/uL Hgb (14.0-18.0) g/dL Hct (42-52) % MCV (80-100) fL MCH (25-34) pg MCHC (32-36) g/dL RDW Std Deviation (36.4-46.3) fL RDW Coeff of Dante (11.5-14.5) % Plt Count (130-400) K/uL MPV (7.4-10.4) fL Immature Gran % (Auto) % Neut % (Auto) % Lymph % (Auto) % [place] % (Auto) % Eos % (Auto) % Baso % (Auto) % Neut # (Auto) (1.4-6.5) K/uL Lymph # (Auto) (1.2-3.4) K/uL [place] # (Auto) (0.11-0.59) K/uL Eos # (Auto) (0-0.5) K/uL Baso # (Auto) (0-0.2) K/uL Immature Gran # (Auto) (0.00-0.02) K/uL ESR (0-20) mm/hr Sodium (136-145) mmol/L Potassium (3.5-5.1) mmol/L Chloride (98-107) mmol/L Carbon Dioxide (21-32) mmol/L Anion Gap (3-11) BUN (7-18) mg/dl Creatinine (0.6-1.4) mg/dl Est Cr Clr Drug Dosing Est GFR ( Amer) ml/min Est GFR (Non-Af Amer) ml/min BUN/Creatinine Ratio (10-20) Glucose (70-99) mg/dl Lactate 1.5 (0.4-2.0) mmol/L Calcium (8.5-10.1) mg/dl Magnesium (1.8-2.4) mg/dl Total Bilirubin (0.2-1) mg/dl AST (15-37) U/L ALT (12-78) Alkaline Phosphatase (45-117) U/L Troponin I (0-0.045) ng/ml C-Reactive Protein (0-0.29) mg/dl NT-Pro-B Natriuret Pep (0-900) pg/ml Total Protein (6.4-8.2) gm/dl Albumin (3.4-5.0) gm/dl Globulin (2.5-4.0) gm/dl Albumin/Globulin Ratio (0.9-2) Procalcitonin 0.36 (0-0.5) ng/ml TSH (0.300-4.500) uIu/ml Free T4 (0.8-1.6) ng/dl Specimen Hemolysis SARS-CoV-2, RNA, NAAT NEGATIVE (NEGATIVE) Administered Medications Doxycycline Hyclate 100 mg/ (Dextrose) 110 mls @ 50 mls/hr IV NOW STA Stop: 10/26/21 23:25 Last Admin: 10/26/21 22:27 Dose: 50 mls/hr Documented by: [id number] Discontinued Medications Piperacillin Sod/Tazobactam Sod (Zosyn) 4.5 gm in 120 mls @ 240 mls/hr IV NOW ONE Stop: 10/26/21 20:40 Last Infusion: 10/26/21 22:28 Dose: 0 mls/hr Documented by: [id number] Admin: 10/26/21 20:57 Dose: 240 mls/hr Documented by: [id number] Daptomycin 400 mg/ Syringe 8 mls @ 4 mls/min IV NOW ONE; Protocol Stop: 10/26/21 20:12 Last Admin: 10/26/21 22:26 Dose: Not Given Documented by: [id number] Acetaminophen (Ofirmev) 1,000 mg in 100 mls @ 400 mls/hr IV NOW STA Stop: 10/26/21 20:27 Last Infusion: 10/26/21 21:15 Dose: 0 mls/hr Documented by: [id number] Admin: 10/26/21 20:43 Dose: 400 mls/hr Documented by: [id number] Imaging Data Radiologist's Impression: Tibia/Fibula X-Ray 10/26/21 18:45 XR tibia fibula RT 2V CLINICAL HISTORY: cellulitis, eval for osseous involvement COMPARISON: Right tibia and fibula radiographs March 02, 2014. FINDINGS: No acute fracture within the right tibia or fibula is noted. Periosteal thickening of the right fibula and to a lesser extent the distal right tibia is similar to prior exams. This is chronic and may be related to venous stasis. Soft tissue edema is present. Posterior calcaneal spurring is present. IMPRESSION: 1. No acute fracture. No radiographic evidence for acute osteomyelitis within the right tibia or fibula. 2. No change in periosteal thickening of the right fibula and tibia since prior exam. This may be related to chronic stasis. 3. Right lower extremity edema and soft tissue nodularity. ACT 112: Negative or not required by law. Electronically signed by: Terence Donahue M.D. 10/26/2021 7:17 PM Chest X-Ray 10/26/21 18:50 XR chest 1V portable CLINICAL HISTORY: Lower extremity edema. COMPARISON STUDY: Chest CT December 06, 2020. Chest radiograph April 13, 2021. FINDINGS: Marked cardiomegaly is similar to prior exam. Small right pleural effusion is present. There is no pneumothorax. There is pulmonary vascular congestion. Possible minimal right midlung opacity is noted. IMPRESSION: 1. Cardiomegaly with pulmonary vascular congestion. 2. Trace right pleural effusion. 3. Minimal right midlung opacity. Radiographic follow-up to ensure resolution is recommended. ACT 112: Negative or not required by law. Electronically signed by: Terence Donahue M.D. 10/26/2021 7:14 PM Venous Doppler Study 10/26/21 18:52 RIGHT LOWER EXTREMITY VENOUS DOPPLER CLINICAL HISTORY: Right lower extremity edema. COMPARISON STUDY: Right lower extremity venous Doppler ultrasound April 14, 2021. TECHNIQUE: Sonography of the deep venous system of the right lower extremity was performed. Compression and augmentation were evaluated. FINDINGS: The right common femoral, superficial femoral and popliteal veins were compressible. Augmentation was normal. Flow was shown within the deep calf vessels. Lower extremity edema is incidentally noted. IMPRESSION: No evidence of deep venous thrombus within the right lower extre mity. ACT 112: Negative or not required by law. Electronically signed by: Terence Donahue M.D. 10/26/2021 8:46 PM Discharge Plan Visit Data Chief Complaint: Weakness ED Provider: Mic Mcleod Discharge Problem: Cellulitis of right lower extremity, Lymphedema, Elevated erythrocyte sedimentation rate, Elevated C-reactive protein Forms Stand Alone Forms: [facility] Ad Infuse Prescriptions Prescriptions: No Action atorvastatin [Lipitor] 80 mg tablet 80 mg PO HS 30 Days Qty: 30 RF: 1 aspirin 81 mg Tablet,Delayed Release (Dr/Ec) 81 mg PO QAM 90 Days Qty: 90 RF: 1 spironolactone 25 mg Tablet 12.5 mg PO DAILY 60 Days Qty: 30 RF: 1 furosemide [Lasix] 80 mg tablet 80 mg PO DAILY 30 Days Qty: 30 RF: 1 levothyroxine [Synthroid] 50 mcg Tablet 50 mcg PO DAILYBB 30 Days Qty: 30 RF: 1 metoprolol succinate 25 mg Tablet Extended Release 24 Hr 12.5 mg PO QAM 60 Days Qty: 30 RF: 1 potassium chloride [Klor-Con M20] 20 mEq tablet,ER particles/crystals 20 meq PO DAILY RF: 0 Referrals Referrals: PCP,NO [Primary Care Provider] -
[2021-10-26] MEDS ORDERED: DOXYCYCLINE HYCLATE 100 MG in DEXTROSE 5% 100 ML IV STA (21:14)
[2021-10-26 22:03] LABS: Magnesium 2.2 mg/dl (1.8-2.4)
[2021-10-26 22:16] LABS: T4 Free Thyroxine 1.09 ng/dl (0.8-1.6)
[2021-10-26] MEDS ORDERED: FUROSEMIDE INJ 20 MG/2 ML VIAL IV ONE (22:44)
[2021-10-26] MEDS ORDERED: traMADol HCL 50 MG TABLET PO STA (22:44)
[2021-10-26 23:00] LABS: Creatine Kinase 57 U/L (39-308)
[2021-10-27 01:17] LABS: Appearance Urine Clear (Clear); Bacteria Urine Automated Negative (Negative); Bilirubin Urine Negative (Negative); Blood Urine Negative (Negative); Cast Urine Automated 0 /lpf (0-5); Color Urine Yellow; Glucose Urine UA Negative (Negative); Ketones Urine Negative (Negative); Leukocyte Esterase Urine 1+ (Negative); Nitrite Urine Negative (Negative); Protein Urine Negative (Negative); RBC Urine Automated 0-4 /hpf (0-4); Specific Gravity Urine 1.005 (1.000-1.030); Urobilinogen Urine Negative (Negative)
[2021-10-27] MEDS ORDERED: ACETAMINOPHEN 325 MG TAB PO PRN (04:51)
[2021-10-27] MEDS ORDERED: NITROGLYCERIN SL 0.4 MG/TAB TAB SL PRN (04:51)
--- NOTE | 2021-10-27 06:38 | XRay Report ---
XR hip LT min 2V HISTORY: 71 years-old Male L hip pain . Acute left-sided hip pain COMPARISON: CT abdomen and pelvis 01/25/2020 TECHNIQUE: 2 views of the left hip FINDINGS: Minimal left hip osteoarthritis. No acute fracture, dislocation or avascular necrosis. Mild soft tiss ue prominence of the scrotum. IMPRESSION: No acute fracture or dislocation. ACT 112: Negative or not required by law. The above report was generated using voice recognition software. It may contain grammatical, syntax o r spelling errors. Electronically signed by: Sunil Dorantes M.D. 10/27/2021 6:37 AM
[2021-10-27] MEDS: POTASSIUM CHLORIDE CRTAB 20 MEQ TABCR PO SCH (08:27)
[2021-10-27] MEDS: METOPROLOL SUCC 25MG EXT REL TAB PO SCH (08:27)
[2021-10-27] MEDS: CEFEPIME 2,000 MG in SYRINGE 0 ML IV SCH ×2 (08:28→16:39)
[2021-10-27] MEDS: LEVOTHYROXINE SODIUM 50 MCG TABLET PO SCH (08:28)
[2021-10-27] MEDS: ASPIRIN 81 MG ECTAB PO SCH (08:28)
[2021-10-27] MEDS: DOXYCYCLINE HYCLATE 100 MG CAP PO SCH ×2 (08:28→22:24)
[2021-10-27] MEDS: SPIRONOLACTONE 12.5 MG TAB PO SCH (08:28)
[2021-10-27] MEDS: FUROSEMIDE 80 MG TAB PO SCH (08:28)
[2021-10-27] MEDS: ENOXAPARIN INJ 40 MG/0.4 ML SYR SQ SCH (08:29)
[2021-10-27] MEDS: traMADol HCL 50 MG TABLET PO PRN ×3 (08:40→21:07)
--- NOTE | 2021-10-27 15:42 | Electrocardiogram Report ---
Test Reason : Blood Pressure : / mmHG Vent. Rate : 091 BPM Atrial Rate : 098 BPM P-R Int : 000 ms QRS Dur : 090 ms QT Int : 404 ms P-R-T Axes : 000 102 061 degrees QTc Int : 496 ms Poor data quality, interpretation may be adversely affected Atrial fibrillation with premature ventricular or aberrantly conducted complexes Rightward axis Septal infarct (cited on or before 13-APR-2021) Abnormal ECG When compared with ECG of 13-APR-2021 19:58, Atrial fibrillation has replaced Sinus rhythm Confirmed by Darian Garcia ([id number]) on 10/27/2021 3:42:20 PM Referred By: REFERRED SELF Confirmed By:Darian Garcia
--- NOTE | 2021-10-27 20:26 | Hospitalist Progress Note ---
Date of Service October 27, 2021 Assessment & Plan (1) Cellulitis of right lower extremity: Plan: (1) Cellulitis of right lower extremity: (2) Acute on chronic congestive heart failure: Plan: Acute on chronic systolic CHF (3) Hypothyroidism: (4) CKD (chronic kidney disease), stage III: (5) DMII (diabetes mellitus, type 2): (6) A-fib: (7) Non-compliance: Plan: Per admitting service notes: With addendum, This is a 71yo M with a PMH of chronic systolic heart failure secondary to ischemic cardiomyopathy EF 15-20%, TTE 2019), severe mitral regurgitation, CAD status post stent, hypertension, hx PAF, paranoid schizophrenia, past hx DVT, hx testicular CA sp surgery and chemotherapy, hypothyroidism, history chronic leg lymphedema, medication noncompliance who presents with worsening right lower extremity swelling and clear drainage. Decompensated heart failure: Mild symptoms hx chronic systolic heart failure secondary to ischemic cardiomyopathy EF 20%, TTE 2019) Secondary to functional disability owing to schizophrenia/medication noncompliance Patient ran out of medications months ago but did not call for refills. Has not had outpatient follow-up visit with assigned [facility] PCP/[facility] car diologist since discharge. Patient also unable to answer calls from [facility] social workers. 10/31/2021 Remains euvolemic Continue usual Lasix and spironolactone with potassium supplement RLE cellulitis, recurrent disease, hx lymphedema Improving Wound cultures Pseudomonas sensitive to cefepime, scarlet quinolones Blood cultures negative so far Discontinue cefepime and doxycycline-5 days, start Levaquin 500 mg p.o. day number 1 out of [address] lumbar and hip ordered: Degenerative changes, no fractures Added as needed [place] and Dilaudid As needed tramadol PT OT evaluation: Recommends inpatient rehab, case management notified Still having significant left hip pain Well consult orthopedic service HTN severe mitral regurgitation hx CAD status post stent hx PAF, patient NSR, poor candidate for home anticoagulation due to paranoid schizophrenia hx testicular CA sp surgery and chemotherapy chronic anemia, hemoglobin at baseline Hypothyroidism, elevated secondary to medication noncompliance Functional disability, inability to care for self/take medications due to paranoia Past history DVT as per records Past tobacco abuse DVT prophylaxis. Lovenox subcu Full code Disposition Inpatient rehab (2) Acute on chronic congestive heart failure: Plan: Acute on chronic systolic CHF (3) Hypothyroidism: (4) CKD (chronic kidney disease), stage III: (5) DMII (diabetes mellitus, type 2): (6) A-fib: (7) Non-compliance: Plan: This is a 71yo M with a PMH of chronic systolic heart failure secondary to ischemic cardiomyopathy EF 15-20%, TTE 2019), severe mitral regurgitation, CAD status post stent, hypertension, hx PAF, paranoid schizophrenia, past hx DVT, hx testicular CA sp surgery and chemotherapy, hypothyroidism, history chronic leg lymphedema, medication noncompliance who presents with worsening right lower extremity swelling and clear drainage. Please see Dr. Montiel's addendum for assessment and plan. Admission and Anticipated Discharge Date Admission Date: October 26, 2021 Subjective Follow-up for acute CHF, right leg cellulitis, etc. Seen sitting up at edge of the bed, not in distress Still having significant left hip pain No leg weakness or numbness No other new symptoms Review of Systems Review of Systems: all noted and negative except for above Physical Exam Physical Exam: General- oriented x 3, not in distress, speaks in sentences with no effort or accessory muscle use Eyes- anicteric Neck- no JVD Lungs- clear BS bilaterally, no crackles no wheezing, good air entry laterally Heart- normal rate, regular rhythm; no murmurs Abdomen- normal bowel sounds, nondistended, soft, nontender Extremities-minimal right lower extremity edema, right lower leg dressing in place, no bleeding or discharge Left lower extremity essentially normal Neuro- alert, oriented x 3; no gross focal neurologic deficits Skin- warm & dry Results & Data Results & Data ([facility]) Vital Signs (Past 12 Hours) Vital Signs Temp Pulse Resp BP Pulse Ox Pulse Ox 10/27/21 19:18 93 10/27/21 16:37 36.5 C 69 16 124/86 92 10/27/21 14:23 74 16 116/82 96 10/27/21 12:43 97 10/27/21 08:32 84 18 149/89 H all noted and reviewed including below (1) Acute on chronic congestive heart failure Heart failure type: unspecified Qualified Code(s): I50.9 - Heart failure, unspecified (2) A-fib Atrial fibrillation type: unspecified Qualified Code(s): I48.91 - Unspecified atrial fibrillation
[2021-10-27] MEDS: ATORVASTATIN 40 MG TAB PO SCH (22:24)
[2021-10-28] MEDS: CEFEPIME 2,000 MG in SYRINGE 0 ML IV SCH ×3 (00:17→22:49)
[2021-10-28] MEDS: traMADol HCL 50 MG TABLET PO PRN ×3 (04:45→18:32)
[2021-10-28] MEDS: LEVOTHYROXINE SODIUM 50 MCG TABLET PO SCH (06:23)
[2021-10-28 06:47] LABS: Basophils # (auto) 0.01 K/uL (0-0.2); Basophils % (auto) 0.2 %; Eosinophils # (auto) 0.05 K/uL (0-0.5); Eosinophils % (auto) 1.2 %; Hemoglobin 12.2 g/dL (14.0-18.0); Lymphocytes # (auto) 0.37 K/uL (1.2-3.4); Lymphocytes % (auto) 8.9 %; Mean Corpuscular Hemoglobin 27.4 pg (25-34); Mean Corpuscular Hgb Conc 30.5 g/dL (32-36); Mean Corpuscular Volume 89.9 fL (80-100); Mean Platelet Volume 9.9 fL (7.4-10.4); Monocytes # (auto) 0.43 K/uL (0.11-0.59); Monocytes % (auto) 10.3 %; Neutrophils % (auto) 79.4 %; Platelet Count 167 K/uL (130-400); RDW Coefficient of Variation 16.2 % (11.5-14.5); RDW Standard Deviation 52.7 fL (36.4-46.3); Red Blood Count 4.45 M/uL (4.7-6.1); White Blood Count 4.16 K/uL (4.8-10.8)
[2021-10-28 07:02] LABS: BUN Creatinine Ratio 18.1 (10-20); Creatinine Clr Calc Pharmacy 53.6 ml/min; Est GFR (Non-African American) 68.1 ml/min; Potassium 3.9 mmol/L (3.5-5.1)
[2021-10-28] MEDS: METOPROLOL SUCC 25MG EXT REL TAB PO SCH (08:31)
[2021-10-28] MEDS: FUROSEMIDE 80 MG TAB PO SCH (08:32)
[2021-10-28] MEDS: DOXYCYCLINE HYCLATE 100 MG CAP PO SCH ×2 (08:33→20:31)
[2021-10-28] MEDS: SPIRONOLACTONE 12.5 MG TAB PO SCH (08:33)
[2021-10-28] MEDS: ENOXAPARIN INJ 40 MG/0.4 ML SYR SQ SCH (08:34)
[2021-10-28] MEDS: ASPIRIN 81 MG ECTAB PO SCH (08:34)
[2021-10-28] MEDS ORDERED: Nursing to Pharmacy Communication SCH (09:30)
[2021-10-28] MEDS: POTASSIUM CHLORIDE CRTAB 20 MEQ TABCR PO SCH (09:45)
[2021-10-28] MEDS ORDERED: POTASSIUM CHLORIDE PWD 20 MEQ PACK PO SCH (10:00)
[2021-10-28] MEDS: POTASSIUM CHLORIDE PWD 20 MEQ PACK PO SCH (10:11)
[2021-10-28] MEDS ORDERED: HYDROmorphone INJ 0.5 MG/0.5 ML SYR IV STA ×2 (14:08→21:48)
--- NOTE | 2021-10-28 14:46 | CT Scan Report ---
CT hip LT wo con, CT lumbar spine wo con CLINICAL HISTORY: left hip , buttock pain generalized weakness. TECHNIQUE: Multidetector row helical CT of the left hip and lumbar spine was performed without intrav enous contrast. Coronal and sagittal reformations were obtained. Automated dose lowering techniques a nd/or adjustment according to patient size were utilized for this examination. Comparison: None available at the time of this dictation. FINDINGS: The osseous structures are without fracture or dislocation. No joint effusion is seen. Left hip join t spaces are maintained. Degenerative changes are seen in the spine most prominent at L2-L3. Partial fusion of the right sacroiliac joint is noted. Atherosclerotic changes are seen. The right kidney is noted to be diminutive in size. IMPRESSION: Degenerative changes without evidence of acute fracture. ACT 112: Negative or not required by law. Electronically signed by: Aramis Teran M.D. 10/28/2021 2:44 PM
--- NOTE | 2021-10-28 19:23 | Hospitalist Progress Note ---
Date of Service October 28, 2021 Delayed entry Date of service as above Assessment & Plan (1) Cellulitis of right lower extremity: (2) Acute on chronic congestive heart failure: Plan: Acute on chronic systolic CHF (3) Hypothyroidism: (4) CKD (chronic kidney disease), stage III: (5) DMII (diabetes mellitus, type 2): (6) A-fib: (7) Non-compliance: Plan: Per admitting service notes: With addendum, This is a 71yo M with a PMH of chronic systolic heart failure secondary to ischemic cardiomyopathy EF 15-20%, TTE 2019), severe mitral regurgitation, CAD status post stent, hypertension, hx PAF, paranoid schizophrenia, past hx DVT, hx testicular CA sp surgery and chemotherapy, hypothyroidism, history chronic leg lymphedema, medication noncompliance who presents with worsening right lower extremity swelling and clear drainage. Decompensated heart failure: Mild symptoms hx chronic systolic heart failure secondary to ischemic cardiomyopathy EF 20%, TTE 2019) Secondary to functional disability owing to schizophrenia/medication noncompliance Patient ran out of medications months ago but did not call for refills. Has not had outpatient follow-up visit with assigned [facility] PCP/[facility] pin inserter since discharge. Patient also unable to answer calls from [facility] social workers. 10/28/2021 Patient appears euvolemic Continue usual Lasix and spironolactone RLE cellulitis, recurrent disease, hx lymphedema Improving Wound cultures pending Blood cultures negative so far Continue cefepime and doxycycline Left hip pain CT lumbar and hip ordered As needed tramadol HTN severe mitral regurgitation hx CAD status post stent hx PAF, patient NSR, poor candidate for home anticoagulation due to paranoid schizophrenia hx testicular CA sp surgery and chemotherapy chronic anemia, hemoglobin at baseline Hypothyroidism, elevated secondary to medication noncompliance Functional disability, inability to care for self/take medications due to paranoia Past history DVT as per records Past tobacco abuse DVT prophylaxis. Lovenox subcu Full code Admission and Anticipated Discharge Date Admission Date: October 26, 2021 Subjective Follow-up for acute CHF exacerbation, right leg cellulitis, etc. Seen resting in bed, comfortable, not in distress In good spirits States he feels improved compared to admission no chest pain, dyspnea, palpitations, dizziness Right lower leg discomfort also improving Reports significant left hip pain starting in lower back/buttock area moving to the left anterior thigh region No weakness or numbness No other symptoms Review of Systems Review of Systems: all noted and negative except for above Physical Exam Physical Exam: General- oriented x 3, not in distress, speaks in sentences with no effort or accessory muscle use Eyes- anicteric Neck- no JVD Lungs- clear breath sounds bilaterally, no rales/wheezes Heart- normal rate, regular rhythm; no murmurs Abdomen- normal bowel sounds, nondistended, soft, nontender Extremities- no pretibial edema, no calf tenderness Right lower leg: Mild edema, extremely dry skin, mild erythema of the lower leg, 2 small open wounds, healing well Neuro- alert, oriented x 3; no gross focal neurologic deficits Skin- warm & dry Results & Data Results & Data ([facility]) Vital Signs (Past 12 Hours) Vital Signs Temp Pulse Pulse Resp BP BP Pulse Ox 10/28/21 15:47 36.8 C 74 18 136/93 96 10/28/21 15:27 78 10/28/21 11:41 36.7 C 82 16 138/93 97 10/28/21 08:12 36.9 C 69 18 122/80 97 all noted and reviewed including below (1) Acute on chronic congestive heart failure Heart failure type: unspecified Qualified Code(s): I50.9 - Heart failure, unspecified (2) A-fib Atrial fibrillation type: unspecified Qualified Code(s): I48.91 - Unspecified atrial fibrillation
[2021-10-28] MEDS: ATORVASTATIN 40 MG TAB PO SCH (20:32)
[2021-10-29] MEDS: traMADol HCL 50 MG TABLET PO PRN ×2 (02:56→10:05)
[2021-10-29] MEDS: LEVOTHYROXINE SODIUM 50 MCG TABLET PO SCH (05:59)
[2021-10-29 09:11] LABS: BUN Creatinine Ratio 19.9 (10-20); Calcium 8.5 mg/dl (8.5-10.1); Creatinine Clr Calc Pharmacy 57.2 ml/min; Est GFR (African American) 86.5 ml/min; Est GFR (Non-African American) 74.6 ml/min; Potassium 3.7 mmol/L (3.5-5.1)
[2021-10-29] MEDS: POTASSIUM CHLORIDE PWD 20 MEQ PACK PO SCH (10:06)
[2021-10-29] MEDS: ASPIRIN 81 MG ECTAB PO SCH (10:06)
[2021-10-29] MEDS: ENOXAPARIN INJ 40 MG/0.4 ML SYR SQ SCH (10:07)
[2021-10-29] MEDS: DOXYCYCLINE HYCLATE 100 MG CAP PO SCH ×2 (10:07→22:01)
[2021-10-29] MEDS: SPIRONOLACTONE 12.5 MG TAB PO SCH (10:07)
[2021-10-29] MEDS: FUROSEMIDE 80 MG TAB PO SCH (10:07)
[2021-10-29] MEDS: METOPROLOL SUCC 25MG EXT REL TAB PO SCH (10:08)
[2021-10-29] MEDS: CEFEPIME 2,000 MG in SYRINGE 0 ML IV SCH ×2 (10:41→22:09)
[2021-10-29] MEDS: HYDROmorphone INJ 0.5 MG/0.5 ML SYR IV PRN ×2 (15:29→22:09)
--- NOTE | 2021-10-29 16:44 | Hospitalist Progress Note ---
Date of Service October 29, 2021 Assessment & Plan (1) Cellulitis of right lower extremity: (2) Acute on chronic congestive heart failure: Plan: Acute on chronic systolic CHF (3) Hypothyroidism: (4) CKD (chronic kidney disease), stage III: (5) DMII (diabetes mellitus, type 2): (6) A-fib: (7) Non-compliance: Plan: Per admitting service notes: With addendum, This is a 71yo M with a PMH of chronic systolic heart failure secondary to ischemic cardiomyopathy EF 15-20%, TTE 2019), severe mitral regurgitation, CAD status post stent, hypertension, hx PAF, paranoid schizophrenia, past hx DVT, hx testicular CA sp surgery and chemotherapy, hypothyroidism, history chronic leg lymphedema, medication noncompliance who presents with worsening right lower extremity swelling and clear drainage. Decompensated heart failure: Mild symptoms hx chronic systolic heart failure secondary to ischemic cardiomyopathy EF 20%, TTE 2019) Secondary to functional disability owing to schizophrenia/medication noncompliance Patient ran out of medications months ago but did not call for refills. Has not had outpatient follow-up visit with assigned [facility] PCP/[facility] video control operator since discharge. Patient also unable to answer calls from [facility] social workers. 10/29/2021 Patient appears euvolemic Continue usual Lasix and spironolactone with potassium supplement RLE cellulitis, recurrent disease, hx lymphedema Improving Wound cultures gram-negative bacilli Blood cultures negative so far Continue cefepime and doxycycline Left hip pain CT lumbar and hip ordered: Degenerative changes, no fractures Added as needed [place] and Dilaudid As needed tramadol PT OT evaluation: Recommends inpatient rehab, case management notified HTN severe mitral regurgitation hx CAD status post stent hx PAF, patient NSR, poor candidate for home anticoagulation due to paranoid schizophrenia hx testicular CA sp surgery and chemotherapy chronic anemia, hemoglobin at baseline Hypothyroidism, elevated secondary to medication noncompliance Functional disability, inability to care for self/take medications due to paranoia Past history DVT as per records Past tobacco abuse DVT prophylaxis. Lovenox subcu Full code Disposition Inpatient rehab Admission and Anticipated Discharge Date Admission Date: October 26, 2021 Subjective Follow-up for acute CHF, right lower extremity cellulitis, etc. Seen resting in bed, sitting up, in good spirits States he continues to feel better overall No shortness of breath, chest pain, palpitations Still reporting left hip significant pain, mostly with movement Right lower extremity pain also improving No other symptoms Review of Systems Review of Systems: all noted and negative except for above Physical Exam Physical Exam: General- oriented x 3, not in distress, speaks in sentences with no effort or accessory muscle use Eyes- anicteric Neck- no JVD Lungs- clear breath sounds, no crackles or wheezing bilaterally Heart- normal rate, regular rhythm; no murmurs Abdomen- normal bowel sounds, nondistended, soft, nontender Extremities-right lower extremity edema mostly resolved, right lower extremity dressing in place, no bleeding or discharge, Left lower extremity essentially normal Neuro- alert, oriented x 3; no gross focal neurologic deficits Skin- warm & dry Results & Data Results & Data ([facility]) Vital Signs (Past 12 Hours) Vital Signs Temp Pulse Pulse Resp BP Pulse Ox 10/29/21 14:35 36.4 C L 57 L 20 104/62 94 10/29/21 11:08 36.6 C 59 L 20 104/61 98 10/29/21 07:24 36.5 C 61 59 L 18 114/67 99 all noted and reviewed including below (1) Acute on chronic congestive heart failure Heart failure type: unspecified Qualified Code(s): I50.9 - Heart failure, unspecified (2) A-fib Atrial fibrillation type: unspecified Qualified Code(s): I48.91 - Unspecified atrial fibrillation
[2021-10-29] MEDS: HYDROCODONE/ACETAMOPHEN 5/325MG TAB PO PRN ×2 (17:58→23:49)
[2021-10-29] MEDS: LIDOCAINE 5% 1 PATCH TD SCH (17:59)
[2021-10-29] MEDS: ATORVASTATIN 40 MG TAB PO SCH (21:59)
[2021-10-30] MEDS: LEVOTHYROXINE SODIUM 50 MCG TABLET PO SCH (06:01)
[2021-10-30 06:51] LABS: BUN Creatinine Ratio 24.5 (10-20); Calcium 8.6 mg/dl (8.5-10.1); Creatinine Clr Calc Pharmacy 53.1 ml/min; Est GFR (Non-African American) 68.1 ml/min; Potassium 4.1 mmol/L (3.5-5.1)
[2021-10-30] MEDS: POTASSIUM CHLORIDE PWD 20 MEQ PACK PO SCH (07:53)
[2021-10-30] MEDS: CEFEPIME 2,000 MG in SYRINGE 0 ML IV SCH ×2 (07:53→20:19)
[2021-10-30] MEDS: traMADol HCL 50 MG TABLET PO PRN ×2 (07:53→21:56)
[2021-10-30] MEDS: DOXYCYCLINE HYCLATE 100 MG CAP PO SCH ×2 (07:54→20:09)
[2021-10-30] MEDS: SPIRONOLACTONE 12.5 MG TAB PO SCH (07:54)
[2021-10-30] MEDS: ENOXAPARIN INJ 40 MG/0.4 ML SYR SQ SCH (07:54)
[2021-10-30] MEDS: FUROSEMIDE 80 MG TAB PO SCH (07:54)
[2021-10-30] MEDS: DOCUSATE SODIUM/SENNA 50/8.6MG TAB PO SCH (07:55)
[2021-10-30] MEDS: ASPIRIN 81 MG ECTAB PO SCH (07:56)
[2021-10-30] MEDS: LIDOCAINE 5% 1 PATCH TD SCH (07:56)
[2021-10-30] MEDS: METOPROLOL SUCC 25MG EXT REL TAB PO SCH (07:57)
[2021-10-30] MEDS: HYDROmorphone INJ 0.5 MG/0.5 ML SYR IV PRN ×3 (09:05→21:38)
[2021-10-30] MEDS: HYDROCODONE/ACETAMOPHEN 5/325MG TAB PO PRN ×2 (13:41→20:10)
--- NOTE | 2021-10-30 16:06 | Hospitalist Progress Note ---
Date of Service October 30, 2021 Assessment & Plan (1) Cellulitis of right lower extremity: (2) Acute on chronic congestive heart failure: Plan: Acute on chronic systolic CHF (3) Hypothyroidism: (4) CKD (chronic kidney disease), stage III: (5) DMII (diabetes mellitus, type 2): (6) A-fib: (7) Non-compliance: Plan: Per admitting service notes: With addendum, This is a 71yo M with a PMH of chronic systolic heart failure secondary to ischemic cardiomyopathy EF 15-20%, TTE 2019), severe mitral regurgitation, CAD status post stent, hypertension, hx PAF, paranoid schizophrenia, past hx DVT, hx testicular CA sp surgery and chemotherapy, hypothyroidism, history chronic leg lymphedema, medication noncompliance who presents with worsening right lower extremity swelling and clear drainage. Decompensated heart failure: Mild symptoms hx chronic systolic heart failure secondary to ischemic cardiomyopathy EF 20%, TTE 2019) Secondary to functional disability owing to schizophrenia/medication noncompliance Patient ran out of medications months ago but did not call for refills. Has not had outpatient follow-up visit with assigned [facility] PCP/[facility] systems mgr since discharge. Patient also unable to answer calls from [facility] social workers. 10/30/2021 Patient now euvolemic Continue usual Lasix and spironolactone with potassium supplement RLE cellulitis, recurrent disease, hx lymphedema Improving Wound cultures Pseudomonas sensitive to cefepime, scarlet quinolones Blood cultures negative so far Continue cefepime and doxycycline Left hip pain CT lumbar and hip ordered: Degenerative changes, no fractures Added as needed [place] and Dilaudid As needed tramadol PT OT evaluation: Recommends inpatient rehab, case management notified HTN severe mitral regurgitation hx CAD status post stent hx PAF, patient NSR, poor candidate for home anticoagulation due to paranoid schizophrenia hx testicular CA sp surgery and chemotherapy chronic anemia, hemoglobin at baseline Hypothyroidism, elevated secondary to medication noncompliance Functional disability, inability to care for self/take medications due to paranoia Past history DVT as per records Past tobacco abuse DVT prophylaxis. Lovenox subcu Full code Disposition Inpatient rehab Admission and Anticipated Discharge Date Admission Date: October 26, 2021 Subjective Follow-up for CHF exacerbation, right lower extremity cellulitis, left hip pain, etc. Seen resting in bed, sitting up, not in distress, comfortable States left hip pain still significant, worse with movement No leg weakness or numbness No incontinence no chest pain, dyspnea, palpitations, dizziness No leg discomfort No other symptoms Review of Systems Review of Systems: all noted and negative except for above Physical Exam Physical Exam: General- oriented x 3, not in distress, speaks in sentences with no effort or accessory muscle use Eyes- anicteric Neck- no JVD Lungs- clear breath sounds bilaterally, no rales/wheezes Heart- normal rate, regular rhythm; no murmurs Abdomen- normal bowel sounds, nondistended, soft, nontender Positive mild tenderness on the left buttock region Extremities- no pretibial edema, no calf tenderness No edema resolved Right lower leg: Mild erythema, 2 wounds on the calf area anterior and posterior, healing well No tenderness Neuro- alert, oriented x 3; no gross focal neurologic deficits Skin- warm & dry Results & Data Results & Data ([facility]) Vital Signs (Past 12 Hours) Vital Signs Temp Pulse Pulse Resp BP Pulse Ox 10/30/21 15:30 36.7 C 79 18 120/71 96 10/30/21 10:56 36.2 C L 68 18 103/70 98 10/30/21 10:09 57 L 10/30/21 07:29 36.7 C 71 18 115/73 94 all noted and reviewed including below (1) Acute on chronic congestive heart failure Heart failure type: unspecified Qualified Code(s): I50.9 - Heart failure, unspecified (2) A-fib Atrial fibrillation type: unspecified Qualified Code(s): I48.91 - Unspecified atrial fibrillation
[2021-10-30] MEDS: ATORVASTATIN 40 MG TAB PO SCH (20:09)
[2021-10-31] MEDS: LEVOTHYROXINE SODIUM 50 MCG TABLET PO SCH (05:47)
[2021-10-31] MEDS: HYDROmorphone INJ 0.5 MG/0.5 ML SYR IV PRN ×3 (05:47→19:22)
[2021-10-31 06:25] LABS: BUN Creatinine Ratio 28.1 (10-20); Calcium 9.2 mg/dl (8.5-10.1); Creatinine Clr Calc Pharmacy 52.6 ml/min; Est GFR (African American) 79.8 ml/min; Est GFR (Non-African American) 68.9 ml/min; Potassium 4.2 mmol/L (3.5-5.1)
[2021-10-31] MEDS: traMADol HCL 50 MG TABLET PO PRN ×2 (07:39→15:27)
[2021-10-31] MEDS: CEFEPIME 2,000 MG in SYRINGE 0 ML IV SCH (07:40)
[2021-10-31] MEDS: METOPROLOL SUCC 25MG EXT REL TAB PO SCH (08:52)
[2021-10-31] MEDS: DOXYCYCLINE HYCLATE 100 MG CAP PO SCH (08:52)
[2021-10-31] MEDS: LIDOCAINE 5% 1 PATCH TD SCH (08:52)
[2021-10-31] MEDS: FUROSEMIDE 80 MG TAB PO SCH (08:52)
[2021-10-31] MEDS: ENOXAPARIN INJ 40 MG/0.4 ML SYR SQ SCH (08:52)
[2021-10-31] MEDS: POTASSIUM CHLORIDE PWD 20 MEQ PACK PO SCH (08:52)
[2021-10-31] MEDS: ASPIRIN 81 MG ECTAB PO SCH (08:52)
[2021-10-31] MEDS: DOCUSATE SODIUM/SENNA 50/8.6MG TAB PO SCH (08:52)
[2021-10-31] MEDS: SPIRONOLACTONE 12.5 MG TAB PO SCH (08:52)
[2021-10-31] MEDS: levoFLOXacin 500 MG TAB PO SCH (12:21)
[2021-10-31] MEDS: HYDROCODONE/ACETAMOPHEN 5/325MG TAB PO PRN (19:23)
[2021-10-31] MEDS: ATORVASTATIN 40 MG TAB PO SCH (20:40)
[2021-11-01] MEDS: HYDROCODONE/ACETAMOPHEN 5/325MG TAB PO PRN ×4 (01:28→20:51)
[2021-11-01] MEDS: HYDROmorphone INJ 0.5 MG/0.5 ML SYR IV PRN ×4 (01:28→20:52)
[2021-11-01] MEDS: LEVOTHYROXINE SODIUM 50 MCG TABLET PO SCH (05:33)
[2021-11-01] MEDS: SPIRONOLACTONE 12.5 MG TAB PO SCH (08:21)
[2021-11-01] MEDS: FUROSEMIDE 80 MG TAB PO SCH (08:22)
[2021-11-01] MEDS: POTASSIUM CHLORIDE PWD 20 MEQ PACK PO SCH (08:23)
[2021-11-01] MEDS: ENOXAPARIN INJ 40 MG/0.4 ML SYR SQ SCH (08:24)
[2021-11-01] MEDS: LIDOCAINE 5% 1 PATCH TD SCH (08:25)
[2021-11-01] MEDS: DOCUSATE SODIUM/SENNA 50/8.6MG TAB PO SCH (08:25)
[2021-11-01] MEDS: ASPIRIN 81 MG ECTAB PO SCH (08:26)
[2021-11-01] MEDS: METOPROLOL SUCC 25MG EXT REL TAB PO SCH (08:29)
[2021-11-01 08:52] LABS: BUN Creatinine Ratio 28.9 (10-20); Calcium 9.7 mg/dl (8.5-10.1); Est GFR (African American) 69.7 ml/min; Est GFR (Non-African American) 60.1 ml/min
[2021-11-01 09:00] LABS: Potassium 4.2 mmol/L (3.5-5.1)
[2021-11-01] MEDS: levoFLOXacin 500 MG TAB PO SCH (12:06)
--- NOTE | 2021-11-01 12:54 | Orthopedic Consultation ---
Date of Consultation November 01, 2021 Assessment & Plan (1) Left hip pain: It appears he is having less left hip joint pain rather than and more possible SI joint discomfort. This appears to be occurring off and on or with the Lidoderm patch, could be helping his initial pain. Plain films of the left hip and also CT scan are essentially benign. Discussed the possibility of an MRI of the lumbar spine and/or pelvis of which the patient absolutely refuses. Does not like the MRI machines. I will contact Dr. Lomeli to have him review the films. I would continue his tramadol and hydrocodone. If possible the addition of low-dose Toradol every 6 hours x24 hours to see if the patient benefits from this. Continue Lidoderm patch and possibly add a warm heating pad to the left SI joint. History of Present Illness Reason for Consultation: Left hip pain Attending Physician: Patrick Sexton MD History of Present Illness This is a 71yo M with a PMH of chronic systolic heart failure secondary to ischemic cardiomyopathy EF 15-20%, TTE 2019), severe mitral regurgitation, CAD status post stent, hypertension, hx PAF, paranoid schizophrenia, past hx DVT, hx testicular CA sp surgery and chemotherapy, hypothyroidism, history chronic leg lymphedema, medication noncomplianceadmitted for right lower extremity cellulitis with some draining wounds. Stay, he began experiencing left hip pain. Patient was started on tramadol and also low-dose hydrocodone/acetaminophen as well as a Lidoderm patch near the left SI joint. X-rays were taken of the left hip and CT of the lumbar spine and pelvis were also done. No overt degenerative arthritis of the left hip seen. No fractures noted. CT scan showed degenerative changes at L2-L3 and also fusion of the right SI joint however no obvious problems with his left SI joint. Currently the patient is sitting up in bed taking some medications from the nursing staff. He has his hips flexed at approximately 90 degrees with his knees folded up a little bit and he is leaning a little bit onto his left side. He does not appear in discomfort at this time. He states that he has been having this pain off and on for some time now and states that it is in the bone of his pelvis. He feels that at times it does radiate down into the left lower extremity not necessarily into the buttock but into the quadriceps muscles and knee. Currently he is not having that pain. He does not have any pain down into his left foot. States that if the pain is going down into his leg that it is mostly anteriorly. We have been asked to see him for this discomfort. Allergies Allergy/AdvReac Type Severity Reaction Status Date / Time horse dander Allergy Unknown Unknown Verified 04/13/21 20:46 tetanus toxoid, adsorbed Allergy Unknown Unknown Verified 04/13/21 20:46 Home Medications Medication Instructions Recorded Confirmed Type aspirin 81 mg tablet,delayed 81 mg PO QAM 90 Days #90 tab 04/20/21 10/26/21 Rx release atorvastatin 80 mg tablet (Lipitor) 80 mg PO HS 30 Days #30 tab 04/20/21 10/26/21 Rx furosemide 80 mg tablet (Lasix) 80 mg PO DAILY 30 Days #30 tab 04/20/21 10/26/21 Rx levothyroxine 50 mcg tablet 50 mcg PO DAILYBB 30 Days #30 tab 04/20/21 10/26/21 Rx (Synthroid) metoprolol succinate 25 mg 12.5 mg PO QAM 60 Days #30 tab 04/20/21 10/26/21 Rx tablet,extended release 24 hr spironolactone 25 mg tablet 12.5 mg PO DAILY 60 Days #30 tab 04/20/21 10/26/21 Rx potassium chloride 20 mEq 20 meq PO DAILY 10/26/21 10/26/21 History tablet,extended release(part/cryst) (Klor-Con M) Patient History Medical History CAD (coronary artery disease) Cholecystitis, acute Chronic systolic CHF (congestive heart failure) History of DVT (deep vein thrombosis) History of pancreatitis History of testicular cancer History of tobacco abuse Homelessness HTN (hypertension) Hypertension Hyperthyroidism Ischemic cardiomyopathy Lymphedema of right lower extremity Mitral regurgitation Palliative care encounter Pleural effusion Schizophrenia STEMI (ST elevation myocardial infarction) Tricuspid regurgitation Surgical History Hx of heart artery stent Status post cardiac catheterization Family History Other Unknown family medical history Social History Smoking Status: Former smoker Tobacco Type: Cigarettes Number of Years Since Quit: 10; Second Hand Exposure: No; Hx Alcohol Use: No Hx Substance Use: No Preferred Language: Portuguese Communication Ability: Effective Excel Analyst Required: No Beliefs That Will Affect Care: None marital status: Single Current Living Situation: Alone [place] How many Children do You have: 0 Feels Safe at Home: Yes Assistive Devices: None Physical Exam 2 Physical Exam: On examination the patient is a 71-year-old white male who appears older than his stated age. He is thin and cachectic. He appears to be alert and oriented x3. No acute distress, pleasant and cooperative. On discussion with the patient he states that most of his pain is below the back in his pelvis. He is capable of rolling over onto his left side to show me the area. Has an Optifoam dressing over the central portion of his lower lumbar area and sacrum secondary to breakdown. There is also a Lidoderm patch noted near the left SI joint. On palpation of the left SI joint, he states that that is the exact area where he feels the pain but it is now not painful on palpation when it usually is. Right SI joint is nontender as well. Palpation around the left SI joint does not elicit any increased pain at this time. The patient then turned onto his back still sitting up somewhat and I take him through gentle range of motion passively with the left hip. He has no groin pain during range of motion. I cannot appreciate any clicking sensations. The patient states he has no pain in his hip at that time. His left knee appears to be nontender through gentle range of motion as well. He has no active swelling of the left lower extremity although he said it was quite swollen yesterday. No effusion of the left knee. No overt swelling of the left hip. No obvious pain in the left trochanteric area. After examination, the patient then does complain of some discomfort over the area of the quadriceps muscles of which I had palpated. He then complains of having the pain in the left SI joint however palpating the area again does not elicit any discomfort. He denies any loss of sensation. There is no gross motor or sensory loss seen at this time. Results & Data ([facility]) Vital Signs (Past 12 Hours) Vital Signs Temp Pulse Resp BP Pulse Ox Pulse Ox 11/01/21 06:55 36.8 C 60 18 111/66 98 98 Diagnostic Findings Patient:LUZ MARINA MORALEZ Admit Date:10/26/21 MR#:[id number] Address1:[address] Acct ID:[id number] Address2: Date:1950 [facility] Zip:[place] [address] Age:71 Location:[facility] Sex:M Room/Bed:[facility] 1-19 Att Phy:Patrick Sexton MD Diagnosis:MILD CHF, CELLULITIS Tere Phy:PCP,NO Service Date:10/26/21 Fam Phy: Interpreting Phy:Sunil DorantesAdmit Phy:Trung Montiel MD Ordering Phy:Trung Montiel MD cc: ~ XR hip LT min 2V HISTORY: 71 years-old Male L hip pain . Acute left-sided hip pain COMPARISON: CT abdomen and pelvis 01/25/2020 TECHNIQUE: 2 views of the left hip FINDINGS: Minimal left hip osteoarthritis. No acute fracture, dislocation or avascular necrosis. Mild soft tissue prominence of the scrotum. IMPRESSION: No acute fracture or dislocation. CT hip LT wo con, CT lumbar spine wo con CLINICAL HISTORY: left hip , buttock pain generalized weakness. TECHNIQUE: Multidetector row helical CT of the left hip and lumbar spine was performed without intravenous contrast. Coronal and sagittal reformations were obtained. Automated dose lowering techniques and/or adjustment according to patient size were utilized for this examination. Comparison: None available at the time of this dictation. FINDINGS: The osseous structures are without fracture or dislocation. No joint effusion is seen. Left hip joint spaces are maintained. Degenerative changes are seen in the spine most prominent at L2-L3. Partial fusion of the right sacroiliac joint is noted. Atherosclerotic changes are seen. The right kidney is noted to be diminutive in size. IMPRESSION: Degenerative changes without evidence of acute fracture.
--- NOTE | 2021-11-01 16:47 | Hospitalist Progress Note ---
Date of Service November 01, 2021 Assessment & Plan (1) Cellulitis of right lower extremity: Plan: This is a 71yo M with a PMH of chronic systolic heart failure secondary to ischemic cardiomyopathy EF 15-20%, TTE 2019), severe mitral regurgitation, CAD status post stent, hypertension, hx PAF, paranoid schizophrenia, past hx DVT, hx testicular CA sp surgery and chemotherapy, hypothyroidism, history chronic leg lymphedema, medication noncompliance who presents with worsening right lower extremity swelling and clear drainage. RLE cellulitis Improving Wound cultures grew Pseudomonas sensitive to cefepime, fluoroquinolones Blood cultures no growth to date Initially received doxycycline and cefepime --> Levaquin. Today is day 7 of antibiotics, course completed. Mild acute on chronic systolic CHF Severe mitral regurgitation Due to noncompliance hx chronic systolic heart failure secondary to ischemic cardiomyopathy EF 20%, TTE 2019) Patient ran out of medications months ago but did not call for refills. Has not had outpatient follow-up visit with assigned [facility] PCP/[facility] household appliance installer since discharge. Patient also unable to answer calls from [facility] social workers. Home diuretic regimen resumed Patient appears euvolemic Left SI joint pain Seems to be improving with Lidoderm patch Lumbar spine and hip CT unremarkable. Patient refusing MRI Ortho consult, input appreciated Atrial fibrillation Rate controlled on metoprolol Not anticoagulated due to fall risk, history of medical noncompliance CAD Appears stable, no reports of chest pain Continue ASA, statin, beta-polo Hypothyroidism Continue levothyroxine DVT prophylaxis - SQ Lovenox Dispo - PT/OT, case management following. Medically stable for discharge. Referral placed to [facility]. Plan: Attending Addendum: care coordinated with IAIN parrish please refer to her notes for full details, I agree with her notes patient seen and examined, records reviewed by myself as well on exam, patient seen sitting up in bed, comfortable, not in distress Left hip pain well managed by pain medication regimen x3 no other symptoms VS noted and reviewed oriented x3, not in distress, speaks in sentences with no effort nor accessory muscle use normal rate, regular rhythm, no murmurs clear breath sounds bilaterally non distended, soft, nontender No lower extremity edema no neuro deficits ASSESSMENT AND PLAN Right lower extremity cellulitis Improving Levaquin p.o. Acute on chronic CHF exacerbation Resolved Continue p.o. Lasix and p.o. Spironolactone Left hip pain CT imaging unremarkable Ortho consulted Continue as needed analgesics, PT and OT other diagnoses and plan of care as per IAIN parrish's notes Patrick Sexton MD Admission and Anticipated Discharge Date Admission Date: October 26, 2021 Subjective Patient seen and examined. Follow-up for RLE cellulitis in mild acute CHF. Patient has been having left-sided low back pain. Seems to be improving with Lidoderm patch. Denies chest pain and shortness of breath. No lightheadedness or dizziness. No abdominal pain or nausea. Review of Systems Review of Systems: ROS per HPI, all other systems reviewed and negative Physical Exam Constitutional: WD/WN, vitals as above Respiratory: normal respiratory effort, lungs clear to auscultation Cardiovascular: Rate/Rhythm: regular rate and + irregularly irregular Vessels: normal peripheral pulses Extremities: no edema Gastrointestinal (Abdomen): Percussion/Palpation: abdomen soft; abdomen nontender Skin: Dry, thick, scaly skin noted to RLE; dressing CDI to RLE Neurologic: no focal motor deficits Psychiatric: A+Ox3, euthymic affect Results & Data Results & Data ([facility]) Vital Signs (Past 12 Hours) Vital Signs Temp Pulse Resp BP BP Pulse Ox Pulse Ox 11/01/21 15:35 36.9 C 54 L 18 118/65 96 11/01/21 06:55 36.8 C 60 18 111/66 98 98 Laboratory Results [facility] 11/01/21 08:00 Sodium 136 Potassium 4.2 Chloride 98 Carbon Dioxide 33 H BUN 35 H Creatinine 1.22 Glucose 82 Calcium 9.7
[2021-11-01] MEDS: traMADol HCL 50 MG TABLET PO PRN (19:39)
[2021-11-01] MEDS: ATORVASTATIN 40 MG TAB PO SCH ×2 (20:51→20:53)
[2021-11-01] MEDS ORDERED: ONDANSETRON INJ 2 MG/ML 2 ML VIAL IV STA (22:19)
[2021-11-02] MEDS: HYDROmorphone INJ 0.5 MG/0.5 ML SYR IV PRN ×2 (03:22→21:02)
[2021-11-02] MEDS: HYDROCODONE/ACETAMOPHEN 5/325MG TAB PO PRN ×2 (03:23→21:01)
[2021-11-02] MEDS: LEVOTHYROXINE SODIUM 50 MCG TABLET PO SCH (05:49)
[2021-11-02 07:40] LABS: BUN Creatinine Ratio 30.5 (10-20); Calcium 10.4 mg/dl (8.5-10.1); Creatinine Clr Calc Pharmacy 36.5 ml/min; Est GFR (African American) 58.5 ml/min; Est GFR (Non-African American) 50.5 ml/min; Potassium 4.5 mmol/L (3.5-5.1)
[2021-11-02] MEDS: ASPIRIN 81 MG ECTAB PO SCH (08:39)
[2021-11-02] MEDS: ENOXAPARIN INJ 40 MG/0.4 ML SYR SQ SCH (08:39)
[2021-11-02] MEDS: DOCUSATE SODIUM/SENNA 50/8.6MG TAB PO SCH (08:39)
[2021-11-02] MEDS: LIDOCAINE 5% 1 PATCH TD SCH (08:40)
[2021-11-02] MEDS: FUROSEMIDE 80 MG TAB PO SCH (08:40)
[2021-11-02] MEDS: POTASSIUM CHLORIDE PWD 20 MEQ PACK PO SCH (08:41)
[2021-11-02] MEDS: METOPROLOL SUCC 25MG EXT REL TAB PO SCH (08:41)
[2021-11-02] MEDS: SPIRONOLACTONE 12.5 MG TAB PO SCH (08:41)
--- NOTE | 2021-11-02 16:01 | Electrocardiogram Report ---
Test Reason : Blood Pressure : / mmHG Vent. Rate : 062 BPM Atrial Rate : 060 BPM P-R Int : 000 ms QRS Dur : 106 ms QT Int : 456 ms P-R-T Axes : 000 058 249 degrees QTc Int : 462 ms Sinus rhythm Premature atrial complexes Incomplete left bundle block Voltage criteria for left ventricular hypertrophy Prolonged QT Abnormal ECG When compared with ECG of 26-OCT-2021 17:29, Incomplete left bundle block is now Present Criteria for Septal infarct are no longer Present T wave inversion now evident in Lateral leads Confirmed by Viktor Ingram ([id number]) on 11/02/2021 4:01:29 PM Referred By: REFERRED SELF Confirmed By:Viktor Ingram
--- NOTE | 2021-11-02 16:53 | Hospitalist Progress Note ---
Date of Service November 02, 2021 Assessment & Plan (1) Cellulitis of right lower extremity: Plan: This is a 71yo M with a PMH of chronic systolic heart failure secondary to ischemic cardiomyopathy EF 15-20%, TTE 2019), severe mitral regurgitation, CAD status post stent, hypertension, hx PAF, paranoid schizophrenia, past hx DVT, hx testicular CA sp surgery and chemotherapy, hypothyroidism, history chronic leg lymphedema, medication noncompliance who presents with worsening right lower extremity swelling and clear drainage. RLE cellulitis Improving Wound cultures grew Pseudomonas sensitive to cefepime, fluoroquinolones Blood cultures no growth to date Initially received doxycycline and cefepime --> Levaquin. Completed 7-day course of antibiotics. Mild acute on chronic systolic CHF Severe mitral regurgitation Due to noncompliance hx chronic systolic heart failure secondary to ischemic cardiomyopathy EF 20%, TTE 2019) Patient ran out of medications months ago but did not call for refills. 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 Patient also unable to answer calls from [facility] social workers. Home diuretic regimen resumed Patient appears euvolemic Abnormal renal function Creatinine 1.4 today, will follow-up in a.m. Diarrhea C. difficile ordered Left SI joint pain Seems to be improving with Lidoderm patch Lumbar spine and hip CT unremarkable. Patient refusing MRI Ortho consult, input appreciated Atrial fibrillation Rate controlled on metoprolol Not anticoagulated due to fall risk, history of medical noncompliance CAD Appears stable, no reports of chest pain Continue ASA, statin, beta-polo Hypothyroidism Continue levothyroxine DVT prophylaxis - SQ Lovenox Dispo - PT/OT, case management following. Medically stable for discharge. Referral placed to [facility]. Plan: Attending Addendum: delayed entry date of service noted above care coordinated with IAIN parrish please refer to her notes for full details, I agree with her notes patient seen and examined, records reviewed by myself as well on exam, patient seen sitting up in bed, comfortable left hip pain well controlled no other symptoms VS noted and reviewed oriented x3, not in distress, speaks in sentences with no effort nor accessory muscle use normal rate, regular rhythm, no murmurs clear breath sounds bilaterally non distended, soft, nontender No lower extremity edema no neuro deficits ASSESSMENT AND PLAN Right lower extremity cellulitis, wound resolving Levaquin p.o. Acute on chronic CHF exacerbation Resolved Continue p.o. Lasix and p.o. Spironolactone Left hip pain CT imaging unremarkable Ortho consulted, non surgical intervention Continue as needed analgesics, PT and OT other diagnoses and plan of care as per IAIN parrish's notes Patrick Sexton MD Admission and Anticipated Discharge Date Admission Date: October 26, 2021 Subjective Patient seen and examined. Follow-up for RLE cellulitis in mild acute CHF. Left-sided low back pain improved with Lidoderm patch. Patient reporting several episodes of soft/loose stools today. No abdominal pain or nausea. Denies chest pain and shortness of breath Review of Systems Review of Systems: ROS per HPI, all other systems reviewed and negative Physical Exam Constitutional: + ill appearing (Chronically); no acute distress Respiratory: normal respiratory effort, lungs clear to auscultation Cardiovascular: Rate/Rhythm: regular rate and + irregularly irregular Extremities: no edema Gastrointestinal (Abdomen): Percussion/Palpation: abdomen soft; abdomen nontender Skin: no rashes, warm and dry Thick, dry, scaly skin to RLE. Dressing RLE CDI. Neurologic: no focal motor deficits Psychiatric: A+Ox3, euthymic affect Results & Data Results & Data ([facility]) Vital Signs (Past 12 Hours) Vital Signs Temp Pulse Resp BP Pulse Ox 11/02/21 15:19 36.8 C 71 18 122/78 98 11/02/21 07:24 36.6 C 58 L 18 100/67 94 Laboratory Results [facility] 11/02/21 06:19 Sodium 135 L Potassium 4.5 Chloride 97 L Carbon Dioxide 32 BUN 43 H Creatinine 1.41 H Glucose 89 Calcium 10.4 H
[2021-11-02] MEDS: ATORVASTATIN 40 MG TAB PO SCH (21:03)
[2021-11-03] MEDS: LEVOTHYROXINE SODIUM 50 MCG TABLET PO SCH (06:08)
[2021-11-03 08:23] LABS: Hematocrit (blood only) 38.4 % (42-52); Hemoglobin 12.1 g/dL (14.0-18.0); Mean Corpuscular Hemoglobin 27.3 pg (25-34); Mean Corpuscular Hgb Conc 31.5 g/dL (32-36); Mean Corpuscular Volume 86.5 fL (80-100); Mean Platelet Volume 9.7 fL (7.4-10.4); Platelet Count 253 K/uL (130-400); RDW Coefficient of Variation 16.4 % (11.5-14.5); RDW Standard Deviation 51.4 fL (36.4-46.3); Red Blood Count 4.44 M/uL (4.7-6.1); White Blood Count 9.42 K/uL (4.8-10.8)
[2021-11-03 08:49] LABS: BUN Creatinine Ratio 31.2 (10-20); Calcium 9.9 mg/dl (8.5-10.1); Creatinine Clr Calc Pharmacy 32.6 ml/min; Est GFR (African American) 50.6 ml/min; Est GFR (Non-African American) 43.6 ml/min; Potassium 4.7 mmol/L (3.5-5.1)
[2021-11-03] MEDS: ASPIRIN 81 MG ECTAB PO SCH ×2 (09:43→09:50)
[2021-11-03] MEDS: FUROSEMIDE 80 MG TAB PO SCH (09:43)
[2021-11-03] MEDS: METOPROLOL SUCC 25MG EXT REL TAB PO SCH (09:44)
[2021-11-03] MEDS: LIDOCAINE 5% 1 PATCH TD SCH (09:44)
[2021-11-03] MEDS: SPIRONOLACTONE 12.5 MG TAB PO SCH (09:44)
[2021-11-03] MEDS: POTASSIUM CHLORIDE PWD 20 MEQ PACK PO SCH (09:45)
[2021-11-03] MEDS: ENOXAPARIN INJ 40 MG/0.4 ML SYR SQ SCH (09:47)
[2021-11-03] MEDS: DOCUSATE SODIUM/SENNA 50/8.6MG TAB PO SCH ×2 (09:48→09:50)
[2021-11-03] MEDS: HYDROCODONE/ACETAMOPHEN 5/325MG TAB PO PRN ×2 (12:53→19:55)
[2021-11-03] MEDS: HYDROmorphone INJ 0.5 MG/0.5 ML SYR IV PRN ×2 (14:16→21:37)
--- NOTE | 2021-11-03 16:38 | Hospitalist Progress Note ---
Date of Service November 03, 2021 Assessment & Plan (1) Cellulitis of right lower extremity: Plan: This is a 71yo M with a PMH of chronic systolic heart failure secondary to ischemic cardiomyopathy EF 15-20%, TTE 2019), severe mitral regurgitation, CAD status post stent, hypertension, hx PAF, paranoid schizophrenia, past hx DVT, hx testicular CA sp surgery and chemotherapy, hypothyroidism, history chronic leg lymphedema, medication noncompliance who presents with worsening right lower extremity swelling and clear drainage. RLE cellulitis Improving Wound cultures grew Pseudomonas sensitive to cefepime, fluoroquinolones Blood cultures no growth to date Initially received doxycycline and cefepime --> Levaquin. Completed 7-day course of antibiotics. Mild acute on chronic systolic CHF Severe mitral regurgitation Due to noncompliance hx chronic systolic heart failure secondary to ischemic cardiomyopathy EF 20%, TTE 2019) Patient ran out of medications months ago but did not call for refills. Has not had outpatient follow-up visit with assigned [facility] PCP/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 Patient also unable to answer calls from [facility] [address] social workers. Home diuretic regimen resumed, now on hold due to LAUREN Fluid restriction Patient appears euvolemic LAUREN Creatinine 1.4 --> 1.59 Lasix and spironolactone held, may need to resume at lower dose Diarrhea Resolved, no further episodes of diarrhea Left SI joint pain Seems to be improving with Lidoderm patch Lumbar spine and hip CT unremarkable. Patient refusing MRI Ortho consult, input appreciated Atrial fibrillation Rate controlled on metoprolol Not anticoagulated due to fall risk, history of medical noncompliance CAD Appears stable, no reports of chest pain Continue ASA, statin, beta-polo Hypothyroidism Continue levothyroxine DVT prophylaxis - SQ Lovenox Dispo - Accepted to [facility] for tomorrow however patient currently refusing and worsening renal function today. Possible discharge tomorrow pending a.m. labs. Admission and Anticipated Discharge Date Admission Date: October 26, 2021 Supervising Physician Co-Signing Physician Notes Pt was seen and examined. agreed with Roslyn TIMMONS exam, assessment and plan. 71yo M with a PMH of chronic systolic heart failure secondary to ischemic cardiomyopathy EF 15-20%, TTE 2019), severe mitral regurgitation, CAD status post stent, hypertension, hx PAF, paranoid schizophrenia, past hx DVT, hx testicular CA sp surgery and chemotherapy, hypothyroidism, history chronic leg lymphedema, medication noncompliance who presents with worsening right lower extremity swelling and clear drainage. Will hold lasix and spironolactone due to elevate creatinine. Continue fluid restriction. Completed the course of the antibiotic. Continue monitor closely. MD Meme Subjective Patient seen and examined. Follow-up for RLE cellulitis in mild acute CHF. Patient with multiple complaints today. Refusing to go to [facility] for rehab tomorrow. States "I am no better than when I came in here". Reports ongoing left-sided low back pain. No chest pain or shortness of breath. Diarrhea from yesterday has resolved. Review of Systems Review of Systems: ROS per HPI, all other systems reviewed and negative Physical Exam Constitutional: WD/WN, vitals as above + ill appearing (Chronically); no acute distress Respiratory: normal respiratory effort, lungs clear to auscultation Cardiovascular: Rate/Rhythm: regular rate and + irregularly irregular Gastrointestinal (Abdomen): Percussion/Palpation: abdomen soft; abdomen nontender Skin: no rashes, warm and dry Thick, dry, scaly skin noted to RLE. Dressing CDI Neurologic: no focal motor deficits Psychiatric: Orientation: alert and oriented x 3 Affect: + irritable affect Results & Data Results & Data ([facility]) Vital Signs (Past 12 Hours) Vital Signs Temp Pulse Pulse Resp BP Pulse Ox 11/03/21 14:57 36.8 C 78 16 129/75 100 11/03/21 07:10 36.5 C 68 60 17 100/60 93 Laboratory Results Short CBC 11/03/21 Range/Units 07:58 WBC 9.42 (4.8-10.8) K/uL Hgb 12.1 L (14.0-18.0) g/dL Hct 38.4 L (42-52) % Plt Count 253 (130-400) K/uL BMP 11/03/21 07:58 Sodium 137 Potassium 4.7 Chloride 100 Carbon Dioxide 31 BUN 50 H Creatinine 1.59 H Glucose 90 Calcium 9.9
[2021-11-03] MEDS: ATORVASTATIN 40 MG TAB PO SCH (21:39)
[2021-11-04] MEDS: LEVOTHYROXINE SODIUM 50 MCG TABLET PO SCH (05:50)
[2021-11-04 06:27] LABS: BUN Creatinine Ratio 36.7 (10-20); Calcium 9.7 mg/dl (8.5-10.1); Creatinine Clr Calc Pharmacy 32.2 ml/min; Est GFR (African American) 49.8 ml/min; Potassium 4.5 mmol/L (3.5-5.1)
[2021-11-04] MEDS: ASPIRIN 81 MG ECTAB PO SCH (08:07)
[2021-11-04] MEDS: ENOXAPARIN INJ 40 MG/0.4 ML SYR SQ SCH (08:08)
[2021-11-04] MEDS: LIDOCAINE 5% 1 PATCH TD SCH (08:11)
[2021-11-04] MEDS: METOPROLOL SUCC 25MG EXT REL TAB PO SCH (08:13)
[2021-11-04] MEDS: POTASSIUM CHLORIDE PWD 20 MEQ PACK PO SCH (08:14)
[2021-11-04] MEDS: DOCUSATE SODIUM/SENNA 50/8.6MG TAB PO SCH (08:16)
[2021-11-04] MEDS: HYDROCODONE/ACETAMOPHEN 5/325MG TAB PO PRN ×2 (12:10→18:17)
[2021-11-04] MEDS: HYDROmorphone INJ 0.5 MG/0.5 ML SYR IV PRN ×2 (13:16→19:22)
--- NOTE | 2021-11-04 14:37 | Hospitalist Progress Note ---
Date of Service November 04, 2021 Assessment & Plan (1) Cellulitis of right lower extremity: Plan: This is a 71yo M with a PMH of chronic systolic heart failure secondary to ischemic cardiomyopathy EF 15-20%, TTE 2019), severe mitral regurgitation, CAD status post stent, hypertension, hx PAF, paranoid schizophrenia, past hx DVT, hx testicular CA sp surgery and chemotherapy, hypothyroidism, history chronic leg lymphedema, medication noncompliance who presents with worsening right lower extremity swelling and clear drainage. RLE cellulitis Improving Wound cultures grew Pseudomonas sensitive to cefepime, fluoroquinolones Blood cultures no growth to date Initially received doxycycline and cefepime --> Levaquin. Completed 7-day course of antibiotics. Mild acute on chronic systolic CHF Severe mitral regurgitation Due to noncompliance hx chronic systolic heart failure secondary to ischemic cardiomyopathy EF 20%, TTE 2019) Patient ran out of medications months ago but did not call for refills. 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 Patient also unable to answer calls from [facility] social workers. Home diuretic regimen resumed, now on hold due to LAUREN Fluid restriction Patient appears euvolemic LAUREN Creatinine 1.4 --> 1.59 --> 1.61 Lasix and spironolactone held, may need to resume at lower dose Kcl on hold as well Diarrhea Resolved, no further episodes of diarrhea Left SI joint pain Seems to be improving with Lidoderm patch Lumbar spine and hip CT unremarkable. Patient refusing MRI Ortho consult, input appreciated Atrial fibrillation Rate controlled on metoprolol Not anticoagulated due to fall risk, history of medical noncompliance CAD Appears stable, no reports of chest pain Continue ASA, statin, beta-polo Hypothyroidism Continue levothyroxine DVT prophylaxis - SQ Lovenox Dispo - Accepted to [facility], renal function increased to 1.61. Lasix and aldactone on hold. Repeat renal fxn in a.m. with hopes to discharge with reduced diuretic regimen if improving. FULL CODE Pt was seen and examined in collaboration with Dr. Valentine, please see addendum Admission and Anticipated Discharge Date Admission Date: October 26, 2021 Supervising Physician Co-Signing Physician Notes Pt was seen and examined. agreed with Nadia MAYS exam, assessment and plan. 71yo M with a PMH of chronic systolic heart failure secondary to ischemic cardiomyopathy EF 15-20%, TTE 2019), severe mitral regurgitation, CAD status post stent, hypertension, hx PAF, paranoid schizophrenia, past hx DVT, hx testicular CA sp surgery and chemotherapy, hypothyroidism, history chronic leg lymphedema, medication noncompliance who presents with worsening right lower extremity swelling and clear drainage. Creatinine bumped to 1.6. Continue to hold lasix and spironolactone due to elevate creatinine. Continue fluid restriction. Will monitor BMP. Completed the course of the antibiotic. Continue monitor closely. MD Meme Subjective Pt was seen and examined in room 384-2. Follow up cellulitis and LAUREN. Overall he offers no complaints today, "its too early to tell i'm not awake yet." He denies f/c/s, cp, sob, n/v/d, abd pain. He is tolerating diet. Review of Systems Review of Systems: All systems reviewed & are unremarkable except as noted in HPI & below Physical Exam Physical Exam: Gen: Thin, chronically ill appearing , NAD, A&O x3 HEENT: Normocephalic, atraumatic, conjunctivae moist, sclerae anicteric, mucous membranes moist. Lung: Clear to Auscultation bilaterally, no wheezes/rales/rhonchi Heart: Regular rate, regular rhythm, no murmurs, rubs, or gallops Abdomen: Soft, NT, ND +BS x 4 Extremities: RLE thick, dry skin with scales, LLE normal Skin: Warm, no rash, negative turgor. Results & Data Results & Data ([facility]) Vital Signs (Past 12 Hours) Vital Signs Temp Pulse Resp BP Pulse Ox 11/04/21 06:54 36.5 C 66 18 120/80 99 Laboratory Results [facility] 11/04/21 05:38 Sodium 137 Potassium 4.5 Chloride 100 Carbon Dioxide 30 BUN 59 H Creatinine 1.61 H Glucose 104 H Calcium 9.7 Medications Administered Current Inpatient Medications Acetaminophen (Acetaminophen 325 Mg Tab) 650 mg PO Q4H PRN PRN Reason: Pain or Fever Stop: 11/26/21 04:50 Hydrocodone Bitart/Acetaminophen (Hydrocodone/Acetamophen 5/325mg Tab) 1 tab PO Q4H PRN PRN Reason: Moderate Pain Stop: 11/12/21 14:57 Last Admin: 11/04/21 12:10 Dose: 1 tab Documented by: Aspirin (Aspirin 81 Mg Ectab) 81 mg PO [facility] Stop: 11/26/21 08:59 Last Admin: 11/04/21 08:07 Dose: 81 mg Documented by: Atorvastatin Calcium (Atorvastatin 40 Mg Tab) 80 mg PO HS [facility] Stop: 11/26/21 20:59 Last Admin: 11/03/21 21:39 Dose: 20 mg Documented by: Enoxaparin Sodium (Enoxaparin Inj 40 Mg/0.4 Ml Syr) 40 mg SQ [facility] Stop: 11/26/21 08:59 Last Admin: 11/04/21 08:08 Dose: Not Given Documented by: Furosemide (Furosemide 80 Mg Tab) 80 mg PO DAILY [facility] Stop: 11/26/21 08:59 Last Admin: 11/03/21 09:43 Dose: 80 mg Documented by: Hydromorphone HCl (Hydromorphone Inj 0.5 Mg/0.5 Ml Syr) 0.5 mg IV Q6H PRN PRN Reason: severe pain Stop: 11/12/21 14:57 Last Admin: 11/04/21 13:16 Dose: 0.5 mg Documented by: Levothyroxine Sodium (Levothyroxine Sodium 50 Mcg Tablet) [facility] Stop: 11/26/21 06:29 Last Admin: 11/04/21 05:50 Dose: 50 mcg Documented by: Lidocaine (Lidocaine 5% 1 Patch) 1 patch TD [facility] Stop: 11/28/21 14:59 Last Admin: 11/04/21 08:11 Dose: 1 patch Documented by: Metoprolol Succinate (Metoprolol Succ 25mg Ext Rel Tab) 12.5 mg PO [facility] Stop: 11/26/21 08:59 Last Admin: 11/04/21 08:13 Dose: 12.5 mg Documented by: Miscellaneous (Remove Lidoderm Patch) 1 ea N/A DAILY@2100 [facility] Stop: 11/28/21 20:59 Last Admin: 11/03/21 21:39 Dose: 1 ea Documented by: Nitroglycerin (Nitroglycerin Sl 0.4 Mg/Tab Tab) 0.4 mg SL UD PRN PRN Reason: Chest Pain Stop: 11/26/21 04:50 Potassium Chloride (Potassium Chloride Pwd 20 Meq Pack) 20 meq PO [facility] Stop: 11/27/21 09:44 Last Admin: 11/04/21 08:14 Dose: 20 meq Documented by: Senna/Docusate Sodium (Docusate Sodium/Senna 50/8.6mg Tab) 1 tab PO QAM [facility] Stop: 11/29/21 08:59 Last Admin: 11/04/21 08:16 Dose: Not Given Documented by: Spironolactone (Spironolactone 12.5 Mg Tab) 12.5 mg PO DAILY [facility] Stop: 11/26/21 08:59 Last Admin: 11/03/21 09:44 Dose: 12.5 mg Documented by: Tramadol HCl (Tramadol Hcl 50 Mg Tablet) 25 - 50 mg PO Q4H PRN PRN Reason: Pain Stop: 11/26/21 04:50 Last Admin: 11/01/21 19:39 Dose: 50 mg Documented by:
[2021-11-04] MEDS: traMADol HCL 50 MG TABLET PO PRN (16:46)
[2021-11-04] MEDS: ATORVASTATIN 40 MG TAB PO SCH (20:17)
[2021-11-05] MEDS: HYDROCODONE/ACETAMOPHEN 5/325MG TAB PO PRN ×4 (01:43→19:56)
[2021-11-05] MEDS: LEVOTHYROXINE SODIUM 50 MCG TABLET PO SCH (05:57)
[2021-11-05] MEDS: DOCUSATE SODIUM/SENNA 50/8.6MG TAB PO SCH (08:30)
[2021-11-05] MEDS: LIDOCAINE 5% 1 PATCH TD SCH (08:30)
[2021-11-05] MEDS: METOPROLOL SUCC 25MG EXT REL TAB PO SCH (08:30)
[2021-11-05] MEDS: ASPIRIN 81 MG ECTAB PO SCH (08:30)
[2021-11-05] MEDS: HYDROmorphone INJ 0.5 MG/0.5 ML SYR IV PRN ×3 (08:30→21:18)
[2021-11-05] MEDS: ENOXAPARIN INJ 40 MG/0.4 ML SYR SQ SCH (08:30)
[2021-11-05 08:43] LABS: BUN Creatinine Ratio 38.2 (10-20); Calcium 9.8 mg/dl (8.5-10.1); Creatinine Clr Calc Pharmacy 37.8 ml/min; Est GFR (African American) 60.6 ml/min; Est GFR (Non-African American) 52.3 ml/min; Potassium 4.6 mmol/L (3.5-5.1)
[2021-11-05] MEDS ORDERED: ONDANSETRON 4 MG OD TAB PO PRN (10:15)
--- NOTE | 2021-11-05 12:25 | Hospitalist Progress Note ---
Date of Service November 05, 2021 Assessment & Plan (1) Cellulitis of right lower extremity: Plan: This is a 71yo M with a PMH of chronic systolic heart failure secondary to ischemic cardiomyopathy EF 15-20%, TTE 2019), severe mitral regurgitation, CAD status post stent, hypertension, hx PAF, paranoid schizophrenia, past hx DVT, hx testicular CA sp surgery and chemotherapy, hypothyroidism, history chronic leg lymphedema, medication noncompliance who presents with worsening right lower extremity swelling and clear drainage. RLE cellulitis Improving Wound cultures grew Pseudomonas sensitive to cefepime, fluoroquinolones Blood cultures no growth to date Initially received doxycycline and cefepime --> Levaquin. Completed 7-day course of antibiotics. Mild acute on chronic systolic CHF Severe mitral regurgitation Due to noncompliance hx chronic systolic heart failure secondary to ischemic cardiomyopathy EF 20%, TTE 2019) Patient ran out of medications months ago but did not call for refills. 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 Patient also unable to answer calls from [facility] social workers. Home diuretic regimen resumed, now on hold due to LAUREN Fluid restriction Patient appears euvolemic LAUREN Creatinine 1.4 --> 1.59 --> 1.61 --> 1.37 today continue to hold lasix and aldactone today resume tomorrow, decrease lasix to 40mg daily Diarrhea Resolved, no further episodes of diarrhea Left SI joint pain Seems to be improving with Lidoderm patch Lumbar spine and hip CT unremarkable. Patient refusing MRI Ortho consult, input appreciated Atrial fibrillation Rate controlled on metoprolol Not anticoagulated due to fall risk, history of medical noncompliance CAD Appears stable, no reports of chest pain Continue ASA, statin, beta-polo Hypothyroidism Continue levothyroxine DVT prophylaxis - SQ Lovenox Dispo - Accepted to [facility], ready to d/c when [facility] able to take FULL CODE Pt was seen and examined in collaboration with Dr. Valentine, please see addendum Admission and Anticipated Discharge Date Admission Date: October 26, 2021 Supervising Physician Co-Signing Physician Notes Pt was seen and examined. agreed with Nadia MAYS exam, assessment and plan. 71yo M with a PMH of chronic systolic heart failure secondary to ischemic cardiomyopathy EF 15-20%, TTE 2019), severe mitral regurgitation, CAD status post stent, hypertension, hx PAF, paranoid schizophrenia, past hx DVT, hx testicular CA sp surgery and chemotherapy, hypothyroidism, history chronic leg lymphedema, medication noncompliance who presents with worsening right lower extremity swelling and clear drainage. Diuretic has been on hold due to elevate creatinine. Creatinine improved 1.37 today. Continue fluid restriction. will resumed diuretic tomorrow at a lower dose. Will monitor BMP. Completed the course of the antibiotic. Continue monitor closely. MD Meme Subjective Pt was seen and examined in room 384-2. Follow up cellulitis and LAUREN. He is hoping to be discharged tomorrow. He has been under Dr. Valentine care for 2 days and feel if he got just one more day, "I'd be in good shape." Denies f/c/s, chest pain, sob, n/v/d. +BM Is interested in [facility] to get strong. Review of Systems Review of Systems: All systems reviewed & are unremarkable except as noted in HPI & below Physical Exam Physical Exam: Gen: Thin, chronically ill appearing , NAD, A&O x3 HEENT: Normocephalic, atraumatic, conjunctivae moist, sclerae anicteric, mucous membranes moist. Lung: Clear to Auscultation bilaterally, no wheezes/rales/rhonchi Heart: Regular rate, regular rhythm, no murmurs, rubs, or gallops Abdomen: Soft, NT, ND +BS x 4 Extremities: RLE thick, dry skin with scales, LLE normal Skin: Warm, no rash, negative turgor. Results & Data Results & Data ([facility]) Vital Signs (Past 12 Hours) Vital Signs Temp Pulse Resp BP Pulse Ox 11/05/21 08:31 36.5 C 75 16 128/66 92 Laboratory Results BMP 11/05/21 08:13 Sodium 135 L Potassium 4.6 Chloride 100 Carbon Dioxide 31 BUN 52 H Creatinine 1.37 Glucose 86 Calcium 9.8 Medications Administered Current Inpatient Medications Acetaminophen (Acetaminophen 325 Mg Tab) 650 mg PO Q4H PRN PRN Reason: Pain or Fever Stop: 11/26/21 04:50 Hydrocodone Bitart/Acetaminophen (Hydrocodone/Acetamophen 5/325mg Tab) 1 tab PO Q4H PRN PRN Reason: Moderate Pain Stop: 11/12/21 14:57 Last Admin: 11/05/21 12:10 Dose: 1 tab Documented by: Aspirin (Aspirin 81 Mg Ectab) 81 mg PO [facility] Stop: 11/26/21 08:59 Last Admin: 11/05/21 08:30 Dose: Not Given Documented by: Atorvastatin Calcium (Atorvastatin 40 Mg Tab) 80 mg PO HS [facility] Stop: 11/26/21 20:59 Last Admin: 11/04/21 20:17 Dose: 20 mg Documented by: Enoxaparin Sodium (Enoxaparin Inj 40 Mg/0.4 Ml Syr) 40 mg SQ [facility] Stop: 11/26/21 08:59 Last Admin: 11/05/21 08:30 Dose: Not Given Documented by: Furosemide (Furosemide 80 Mg Tab) 80 mg PO DAILY [facility] Stop: 11/26/21 08:59 Last Admin: 11/03/21 09:43 Dose: 80 mg Documented by: Hydromorphone HCl (Hydromorphone Inj 0.5 Mg/0.5 Ml Syr) 0.5 mg IV Q6H PRN PRN Reason: severe pain Stop: 11/12/21 14:57 Last Admin: 11/05/21 08:30 Dose: 0.5 mg Documented by: Levothyroxine Sodium (Levothyroxine Sodium 50 Mcg Tablet) [facility]: 11/26/21 06:29 Last Admin: 11/05/21 05:57 Dose: 50 mcg Documented by: Lidocaine (Lidocaine 5% 1 Patch) 1 patch TD [facility] Stop: 11/28/21 14:59 Last Admin: 11/05/21 08:30 Dose: Not Given Documented by: Metoprolol Succinate (Metoprolol Succ 25mg Ext Rel Tab) 12.5 mg PO [facility] Stop: 11/26/21 08:59 Last Admin: 11/05/21 08:30 Dose: Not Given Documented by: Miscellaneous (Remove Lidoderm Patch) 1 ea N/A DAILY@2100 [facility] Stop: 11/28/21 20:59 Last Admin: 11/04/21 20:18 Dose: 1 ea Documented by: Nitroglycerin (Nitroglycerin Sl 0.4 Mg/Tab Tab) 0.4 mg SL UD PRN PRN Reason: Chest Pain Stop: 11/26/21 04:50 Ondansetron HCl (Ondansetron 4 Mg Od Tab) 4 mg PO Q6H PRN PRN Reason: Nausea Stop: 12/05/21 10:14 Last Admin: 11/05/21 10:44 Dose: 4 mg Documented by: Potassium Chloride (Potassium Chloride Pwd 20 Meq Pack) 20 meq PO QAM [facility] Stop: 11/27/21 09:44 Last Admin: 11/04/21 08:14 Dose: 20 meq Documented by: Senna/Docusate Sodium (Docusate Sodium/Senna 50/8.6mg Tab) [facility] Stop: 11/29/21 08:59 Last Admin: 11/05/21 08:30 Dose: Not Given Documented by: Spironolactone (Spironolactone 12.5 Mg Tab) 12.5 mg PO DAILY [facility] Stop: 11/26/21 08:59 Last Admin: 11/03/21 09:44 Dose: 12.5 mg Documented by: Tramadol HCl (Tramadol Hcl 50 Mg Tablet) 25 - 50 mg PO Q4H PRN PRN Reason: Pain Stop: 11/26/21 04:50 Last Admin: 11/04/21 16:46 Dose: 50 mg Documented by:
[2021-11-05] MEDS: traMADol HCL 50 MG TABLET PO PRN ×2 (13:48→14:46)
[2021-11-05] MEDS ORDERED: ONDANSETRON INJ 2 MG/ML 2 ML VIAL IV ONE (15:30)
[2021-11-05] MEDS: ATORVASTATIN 40 MG TAB PO SCH (19:57)
[2021-11-06] MEDS: HYDROCODONE/ACETAMOPHEN 5/325MG TAB PO PRN ×2 (04:02→11:31)
[2021-11-06] MEDS: LEVOTHYROXINE SODIUM 50 MCG TABLET PO SCH (05:49)
[2021-11-06] MEDS: HYDROmorphone INJ 0.5 MG/0.5 ML SYR IV PRN (05:49)
[2021-11-06] MEDS ORDERED: ONDANSETRON INJ 2 MG/ML 2 ML VIAL ONE (05:57)
[2021-11-06] MEDS ORDERED: FUROSEMIDE 40 MG TAB PO SCH (09:00)
[2021-11-06] MEDS: ASPIRIN 81 MG ECTAB PO SCH (09:29)
[2021-11-06] MEDS: ENOXAPARIN INJ 40 MG/0.4 ML SYR SQ SCH (09:29)
[2021-11-06] MEDS: DOCUSATE SODIUM/SENNA 50/8.6MG TAB PO SCH (09:29)
[2021-11-06] MEDS: LIDOCAINE 5% 1 PATCH TD SCH (09:30)
[2021-11-06] MEDS: SPIRONOLACTONE 12.5 MG TAB PO SCH (09:33)
[2021-11-06] MEDS: traMADol HCL 50 MG TABLET PO PRN (09:42)
[2021-11-06] MEDS: METOPROLOL SUCC 25MG EXT REL TAB PO SCH (09:43)
--- NOTE | 2021-11-06 13:02 | Discharge Summary ---
Date of Service November 06, 2021 Admission HPI Per Admitting Provider This is a 71yo M with a PMH of chronic systolic heart failure secondary to ischemic cardiomyopathy EF 15-20%, TTE 2019), severe mitral regurgitation, CAD status post stent, hypertension, hx PAF, paranoid schizophrenia, past hx DVT, hx testicular CA sp surgery and chemotherapy, hypothyroidism, history chronic leg lymphedema, medication noncompliance who presents with worsening right lower extremity swelling and clear drainage. Denies any pain or wounds to his lower leg. Also states he is having worsening left hip pain with radiation to left thigh. Having more difficulty ambulating around his apartment due to this discomfort. Has not had medications refilled since last discharged from the hospital. Does endorse chest pain few days ago that is since resolved. No fever, chills, lightheadedness, headache, nausea, vomiting, abdominal pain, dysuria, diarrhea or constipation. Chronic shortness of breath that is unchanged. In the ED, patient is afebrile and hemodynamically stable. No leukocytosis. ES R 76, CRP 9.38, proBNP 24,552. Procalcitonin within normal limits. Chest x-ray with cardiomegaly and pulmonary vascular congestion, trace right pleural effusion, right midlung opacity visualized. Right tib-fib x-ray without fracture or evidence of osteomyelitis. Presence of right lower extremity edema and soft tissue nodularity. Right venous Doppler without evidence of DVT. Admission Exam Per Admitting Provider General Appearance:vitals as above, NAD, sitting in bed, pleasant, poorly groomed Head: normocephalic, atraumatic Eyes:normal inspection, PERRL, conjunctivae normal, anicteric sclerae ENT: external ear and nose normal, oropharynx normal Neck: normal visual inspection, trachea midline, no thyromegaly Respiratory:coarse breath sounds bilaterally, no wheeze or rhonchi. No accessory muscle use Cardiovascular: regular rate, rhythm, no murmur, normal peripheral pulses, no BLE edema. Vessels: no JVD Chest: normal inspection of chest Abdomen/GI: normal bowel sounds, soft, nontender, no hepatosplenomegaly Extremities/Musculoskeletal: RLE with chronic lymphedema and serous weeping. No purulent drainage. No cyanosis or clubbing, extremities motor strength 5/5 Neurologic: PERRL, EOMI, accommodation nl, no face palsy, no dysarthria, CN's II-XI intact bilaterally and moves all extremities Psychiatric:A+Ox3, euthymic affect Skin: no rashes, normal color, warm/dry Principal Diagnosis (1) Cellulitis of right lower extremity: (2) Acute on chronic congestive heart failure: (3) Hypothyroidism: (4) CKD (chronic kidney disease), stage III: (5) DMII (diabetes mellitus, type 2): (6) A-fib: Discharge Exam Gen: Thin, chronically ill appearing , NAD, A&O x3 HEENT: Normocephalic, atraumatic, conjunctivae moist, sclerae anicteric, mucous membranes moist. Lung: Clear to Auscultation bilaterally, no wheezes/rales/rhonchi Heart: Regular rate, regular rhythm, no murmurs, rubs, or gallops Abdomen: Soft, NT, ND +BS x 4 Extremities: RLE thick, dry skin with scales, LLE normal Skin: Warm, no rash, negative turgor. Discharge Data Allergies Allergy/AdvReac Type Severity Reaction Status Date / Time horse dander Allergy Unknown Unknown Verified 04/13/21 20:46 tetanus toxoid, adsorbed Allergy Unknown Unknown Verified 04/13/21 20:46 Consultations 10/26/21 20:48 ED Decision to Admit Stat 10/31/21 13:46 Consult Orthopedic Surgery Routine Ordered Studies 10/26/21 18:52 US venous doppler LE RT Stat 10/28/21 11:21 CT hip LT wo con Routine CT lumbar spine wo con Routine CT hip LT wo con, CT lumbar spine wo con CLINICAL HISTORY: left hip , buttock pain generalized weakness. TECHNIQUE: Multidetector row helical CT of the left hip and lumbar spine was performed without intravenous contrast. Coronal and sagittal reformations were obtained. Automated dose lowering techniques and/or adjustment according to patient size were utilized for this examination. Comparison: None available at the time of this dictation. FINDINGS: The osseous structures are without fracture or dislocation. No joint effusion is seen. Left hip joint spaces are maintained. Degenerative changes are seen in the spine most prominent at L2-L3. Partial fusion of the right sacroiliac joint is noted. Atherosclerotic changes are seen. The right kidney is noted to be diminutive in size. IMPRESSION: Degenerative changes without evidence of acute fracture. ACT 112: Negative or not required by law. Electronically signed by: Aramis Teran M.D. 10/28/2021 2:44 PM Dictated:10/28/211441 Transcribed: 10/28/211441 CT hip LT wo con, CT lumbar spine wo con CLINICAL HISTORY: left hip , buttock pain generalized weakness. TECHNIQUE: Multidetector row helical CT of the left hip and lumbar spine was performed without intravenous contrast. Coronal and sagittal reformations were obtained. Automated dose lowering techniques and/or adjustment according to patient size were utilized for this examination. Comparison: None available at the time of this dictation. FINDINGS: The osseous structures are without fracture or dislocation. No joint effusion is seen. Left hip joint spaces are maintained. Degenerative changes are seen in the spine most prominent at L2-L3. Partial fusion of the right sacroiliac joint is noted. Atherosclerotic changes are seen. The right kidney is noted to be diminutive in size. IMPRESSION: Degenerative changes without evidence of acute fracture. ACT 112: Negative or not required by law. Electronically signed by: Aramis Teran M.D. 10/28/2021 2:44 PM Dictated:10/28/211441 Transcribed: 10/28/211441 XR hip LT min 2V HISTORY: 71 years-old Male L hip pain . Acute left-sided hip pain COMPARISON: CT abdomen and pelvis 01/25/2020 TECHNIQUE: 2 views of the left hip FINDINGS: Minimal left hip osteoarthritis. No acute fracture, dislocation or avascular necrosis. Mild soft tissue prominence of the scrotum. IMPRESSION: No acute fracture or dislocation. ACT 112: Negative or not required by law. The above report was generated using voice recognition software. It may contain grammatical, syntax or spelling errors. Electronically signed by: Sunil Dorantes M.D. 10/27/2021 6:37 AM Dictated:10/27/21 0635 Transcribed: 10/27/21 0635 RIGHT LOWER EXTREMITY VENOUS DOPPLER CLINICAL HISTORY: Right lower extremity edema. COMPARISON STUDY: Right lower extremity venous Doppler ultrasound April 14, 2021. TECHNIQUE: Sonography of the deep venous system of the right lower extremity was performed. Compression and augmentation were evaluated. FINDINGS: The right common femoral, superficial femoral and popliteal veins were compressible. Augmentation was normal. Flow was shown within the deep calf vessels. Lower extremity edema is incidentally noted. IMPRESSION: No evidence of deep venous thrombus within the right lower extremity. ACT 112: Negative or not required by law. Electronically signed by: Terence Donahue M.D. 10/26/2021 8:46 PM Dictated:10/26/212044 Transcribed: 10/26/212044 XR chest 1V portable CLINICAL HISTORY: Lower extremity edema. COMPARISON STUDY: Chest CT December 06, 2020. Chest radiograph April 13, 2021. FINDINGS: Marked cardiomegaly is similar to prior exam. Small right pleural effusion is present. There is no pneumothorax. There is pulmonary vascular congestion. Possible minimal right midlung opacity is noted. IMPRESSION: 1. Cardiomegaly with pulmonary vascular congestion. 2. Trace right pleural effusion. 3. Minimal right midlung opacity. Radiographic follow-up to ensure resolution is recommended. ACT 112: Negative or not required by law. Electronically signed by: Terence Donahue M.D. 10/26/2021 7:14 PM Dictated:10/26/211911 Transcribed: 10/26/211911 XR tibia fibula RT 2V CLINICAL HISTORY: cellulitis, eval for osseous involvement COMPARISON: Right tibia and fibula radiographs March 02, 2014. FINDINGS: No acute fracture within the right tibia or fibula is noted. Periosteal thickening of the right fibula and to a lesser extent the distal right tibia is similar to prior exams. This is chronic and may be related to venous stasis. Soft tissue edema is present. Posterior calcaneal spurring is present. IMPRESSION: 1. No acute fracture. No radiographic evidence for acute osteomyelitis within the right tibia or fibula. 2. No change in periosteal thickening of the right fibula and tibia since prior exam. This may be related to chronic stasis. 3. Right lower extremity edema and soft tissue nodularity. ACT 112: Negative or not required by law. Electronically signed by: Terence Donahue M.D. 10/26/2021 7:17 PM Dictated:10/26/211913 Transcribed: 10/26/211913 Hospital Course (1) Cellulitis of right lower extremity: This is a 71yo M with a PMH of chronic systolic heart failure secondary to ischemic cardiomyopathy EF 15-20%, TTE 2019), severe mitral regurgitation, CAD status post stent, hypertension, hx PAF, paranoid schizophrenia, past hx DVT, hx testicular CA sp surgery and chemotherapy, hypothyroidism, history chronic leg lymphedema, medication noncompliance who presents with worsening right lower extremity swelling and clear drainage. RLE cellulitis Improving Wound cultures grew Pseudomonas sensitive to cefepime, fluoroquinolones Blood cultures no growth to date Initially received doxycycline and cefepime --> Levaquin. Completed 7-day course of antibiotics. Mild acute on chronic systolic CHF Severe mitral regurgitation Due to noncompliance hx chronic systolic heart failure secondary to ischemic cardiomyopathy EF 20%, TTE 2019) Patient ran out of medications months ago but did not call for refills. Has not had outpatient follow-up visit with assigned [facility] [place]CP[place] [place] revers[place]. Patient also unable to answer calls from [facility] social workers. Home diuretic regimen resumed, now on hold due to LAUREN Fluid restriction Patient appears euvolemic LAUREN Creatinine 1.4 --> 1.59 --> 1.61 --> 1.37 today continue to hold lasix and aldactone today resume tomorrow, decrease lasix to 40mg daily Diarrhea Resolved, no further episodes of diarrhea Left SI joint pain Seems to be improving with Lidoderm patch Lumbar spine and hip CT unremarkable. Patient refusing MRI Ortho consult, input appreciated Atrial fibrillation Rate controlled on metoprolol Not anticoagulated due to fall risk, history of medical noncompliance CAD Appears stable, no reports of chest pain Continue ASA, statin, beta-polo Hypothyroidism Continue levothyroxine DVT prophylaxis - SQ Lovenox Dispo - Accepted to [facility], ready to d/c when [facility] able to take FULL CODE Pt was seen and examined in collaboration with Dr. Valentine, please see addendum Total Time Total Time Spent Total Time Spent (In Minutes): 35 minutes Discharge Plan Discharge Items Patient Disposition: Transfer Inpatient Rehab Fac Reason For Visit: MILD CHF, CELLULITIS Discharge Diagnosis: RLE Cellulitis - resolved Acute on Chronic HF with reserved EF, now compensated LAUREN - resolved Medication noncomplaince Activity: Resume your previous activity Weightbearing: Full weightbearing Non-emergency contact: Primary Care Provider Call non-emergency contact if: you have any medication questions, your symptoms worsen, your pain is not controlled, your pain is worsening and you have a fever Follow-up/Referrals: PCP,NO [Primary Care Provider] - Diet: Low Sodium (2gm) Addtl Attending Provider Instructions: MEDICATION CHANGES: Lasix reduced from 80mg daily to 40mg daily Continue to hold potassium supplement. Resume all other medications as prescribed. SUMMARY OF TEST RESULTS: Patient admitted to hospital due to medication noncompliance with worsening Right lower extremity redness and drainage. You were diagnosed with cellulitis and completed 7 day course of antibiotic. You were felt to have a mild exacerbation of CHF and you were treated with lasix. Due to rise in your kidney function lasix was then held and resumed at decreased dose when renal function returned to baseline. PENDING TEST RESULTS: None RECOMMENDATIONS FOR FOLLOW-UP: Please follow up with your Primary Care Provider upon discharge from acute rehab. Please follow up with [facility] upon discharge from acute rehab. Weigh yourself daily, if weight gain of > 2lb in one day or > 5lb in one week, please contact your gas reverser. Maintain a heart healthy, low sodium diet. Restrict Fluid to 2L daily. Please take all medications as prescribed. Wound care: Wash right leg daily, apply moisturizer cream to leg. Clean wounds with saline. Cover with ABD and secure with kerlix. Change every day and prn. To Mid Back: Cover with optifoam and change every 3 days and prn. Please check CBC, BMP within 3-5 days of discharge. OTHER INSTRUCTIONS: Seek medical attention if you have: * temperature above 101 * chest pain or trouble breathing * abdominal pain, nausea, vomiting * diarrhea, dark stools or bloody stools * any unanswered questions or concerns Call 911 if symptoms are severe. Please take good care of yourself. It has been a pleasure taking care of you. Please take care of yourself. If you have any questions regarding your recent hospitalization please contact [facility] and request Riri Vinsonist @ [phone]. Pending Studies at Discharge: No Stand-Alone Forms: [facility] Skilled Items Patient informed of condition?: Yes DNR: No Discharge Level of Care: Acute rehab Communicable Disease: No Discharge Prognosis: Stable Lines: None Urinary Catheter: No Medications and DC Order Prescriptions: New furosemide 40 mg Tablet 40 mg PO QAM Qty: 30 RF: 0 hydrocodone-acetaminophen 5-325 mg Tablet 1 tab PO Q8H PRN (Reason: pain) Qty: 10 RF: 0 lidocaine 5 % Adhesive Patch,Medicated 1 patch transdermal QAM Qty: 10 RF: 0 Continued atorvastatin [Lipitor] 80 mg tablet 80 mg PO HS 30 Days Qty: 30 RF: 1 aspirin 81 mg Tablet,Delayed Release (Dr/Ec) 81 mg PO QAM 90 Days Qty: 90 RF: 1 spironolactone 25 mg Tablet 12.5 mg PO DAILY 60 Days Qty: 30 RF: 1 levothyroxine [Synthroid] 50 mcg Tablet 50 mcg PO DAILYBB 30 Days Qty: 30 RF: 1 metoprolol succinate 25 mg Tablet Extended Release 24 Hr 12.5 mg PO QAM 60 Days Qty: 30 RF: 1 Discontinued furosemide [Lasix] 80 mg tablet 80 mg PO DAILY 30 Days Qty: 30 RF: 1 potassium chloride [Klor-Con M20] 20 mEq tablet,ER particles/crystals 20 meq PO DAILY RF: 0 Discharge Orders: Discharge Order (Routine); Ordered 11/06/21 Ordered By: Funmi Olivas/Other Patient Handouts: What Is Heart Failure, Medicine Taking an Active Role, Cellulitis Dc Admission Data Admit Date/Time: 10/26/21 23:44 Attending Provider: Funmi Valentine Admit Provider: Trung Montiel Primary Care Provider: PCP,NO Other Providers: [facility] ; Trung Montiel ; Arslan Hayward ; William Lomeli ; Jayy Hall ; Thania Thapa ; Gian Neal ; Danitza Ferrer ; Nicholas Foss ; Jenaro Hays ; Daniel Peterson ; Dorian Jenkins ; Jenaro Yepez ; Mike Allan ; Fernando Veronica ; Mike Parker ; Ole Leyva ; Danitza Navas ; eGra Whitaker ; Charles Cortez ; Pearl Higgins ; Tyler Guerra ; Roslyn Bello ; Sunil Upton ; Patrick Sexton ; Nadia Campo
== END 2021-11-06 13:53 | DRG 602 ==
LOC: ED 17:07 → EDINP 23:44 → SUATTDRO 23:44 → EDINP 10-27 04:02 → 2N 10-27 20:27 → 3N 10-30 21:46

== ENCOUNTER 2021-11-18 21:53 | Inpatient (IN) ==
[2021-11-18] MEDS ORDERED: HYDROCODONE/ACETAMOPHEN 5/325MG TAB PO STA (23:01)
[2021-11-18 23:50] LABS: Basophils # (auto) 0.01 K/uL (0-0.2); Basophils % (auto) 0.3 %; Eosinophils # (auto) 0.02 K/uL (0-0.5); Eosinophils % (auto) 0.6 %; Hematocrit (blood only) 36.2 % (42-52); Hemoglobin 11.9 g/dL (14.0-18.0); Immature Granulocytes # (auto) 0.01 K/uL (0.00-0.02); Immature Granulocytes % (auto) 0.3 %; Lymphocytes # (auto) 0.33 K/uL (1.2-3.4); Lymphocytes % (auto) 10.1 %; Mean Corpuscular Hemoglobin 27.5 pg (25-34); Mean Corpuscular Hgb Conc 32.9 g/dL (32-36); Mean Corpuscular Volume 83.6 fL (80-100); Mean Platelet Volume 8.4 fL (7.4-10.4); Monocytes # (auto) 0.39 K/uL (0.11-0.59); Neutrophils % (auto) 76.7 %; Platelet Count 249 K/uL (130-400); RDW Coefficient of Variation 16.2 % (11.5-14.5); RDW Standard Deviation 49.3 fL (36.4-46.3); Red Blood Count 4.33 M/uL (4.7-6.1); White Blood Count 3.26 K/uL (4.8-10.8)
[2021-11-18 23:58] LABS: INR 1.1 (0.9-1.1)
[2021-11-19 00:08] LABS: Alanine Aminotransferase 26 (12-78); Albumin Level 2.9 gm/dl (3.4-5.0); Aspartate Aminotransferase 30 U/L (15-37); BUN Creatinine Ratio 36.3 (10-20); Blood Urea Nitrogen 46 mg/dl (7-18); Calcium 10.2 mg/dl (8.5-10.1); Carbon Dioxide 26 mmol/L (21-32); Chloride 99 mmol/L (98-107); Creatinine Clr Calc Pharmacy 41.5 ml/min; Est GFR (African American) 66.4 ml/min; Est GFR (Non-African American) 57.3 ml/min; Glucose 92 mg/dl (70-99); Lipase 115 U/L (73-393); Magnesium 2.4 mg/dl (1.8-2.4); Sodium 133 mmol/L (136-145)
[2021-11-19 00:11] LABS: Albumin Globulin Ratio 0.4 (0.9-2); Alkaline Phosphatase 257 U/L (45-117); Bilirubin,Total 1.1 mg/dl (0.2-1); Creatine Kinase 54 U/L (39-308); Globulin 6.7 gm/dl (2.5-4.0); Phosphorus 3.8 mg/dl (2.5-4.9); Total Protein 9.6 gm/dl (6.4-8.2); Troponin I < 0.015 ng/ml (0-0.045)
[2021-11-19] MEDS ORDERED: MoRPHine SULFATE 2 MG/ML CARP IV STA (00:59)
[2021-11-19] MEDS ORDERED: dexAMETHasone**PF** 10 MG/ML VIAL IV ONE (00:59)
[2021-11-19] MEDS ORDERED: ACETAMINOPHEN 1,000 MG/100 ML VIAL IV STA (00:59)
[2021-11-19] MEDS ORDERED: LIDOCAINE 5% 1 PATCH TD STA (00:59)
[2021-11-19] MEDS ORDERED: ONDANSETRON INJ 2 MG/ML 2 ML VIAL IV STA (02:09)
[2021-11-19] MEDS ORDERED: ONDANSETRON INJ 2 MG/ML 2 ML VIAL ONE (02:10)
--- NOTE | 2021-11-19 02:49 | Emergency Department Note ---
Impression & Plan Ambulatory dysfunction, Noncompliance, Chronic low back pain, Lab test positive for detection of COVID-19 virus ED Provider Note NAME: LUZ MARINA MORALEZ AGE: 71 SEX: M ARRIVES VIA: Ambulance INFORMANT: Patient ED PROVIDER(S): Mic Mcleod MD CHIEF COMPLAINT: Back pain, inability to ambulate. PLAN: Disposition: Admit MEDICAL DECISION MAKING: The patient is a pleasant 71-year-old gentleman with a past medical history of chronic systolic heart failure secondary ischemic cardiomyopathy with a EF of 15-20%, CAD, hypertension, history of paroxysmal atrial fibrillation, paranoid schizophrenia, hypothyroidism, chronic leg lymphedema, medication noncompliance, history of homelessness who presents emergency department from home with complaints of persistence of his chronic back pain where he feels he is unable to ambulate which occurs in the setting of being discharged from [facility] yesterday following admission there following his recent admission to [facility] from 10/26-11/06. The patient is a poor historian. Initially reported that he was not walking at [facility] but then admits that he was during physical therapy. He reports he was receiving Babbitt while in rehab but did not get his prescription filled yet. I did review the patient's discharge plan with staff member at [facility] and it did appear that it was recommended that he have home services and therapy but the patient declined this. It does appear that he was discharged on a prescription for Babbitt. Patient denies any fevers, chills, cough, congestion, GI or symptoms. On arrival the patient is chronically ill-appearing but no acute distress, afebrile stable vital signs. He appears euvolemic compared to prior admission when this provider admitted him for volume overload. His right lower extremity lymphedema is still present but improving without erythema, warmth or tenderness. WBC 3.2, similar to prior range values. H/H and platelets also similar to prior range of values. Chemistry without metabolic acidosis. LFTs are unremarkable. Troponin negative/undetectable. Lipase not elevated. CPK is within normal limits. The patient's COVID-19, RNA, NAAT test (ID now) was positive. This was reviewed with the patient and he continues to deny any fevers, cough or congestion. He did have repeated COVID-19 testing during his hospitalization and prior to admission to rehab. Thus, this may reflect an acute infection where he has yet to develop symptoms. Upon evaluation following treatment with his prescribed Babbitt the patient was able to ambulate with a walker and assistance but with difficulty and complaining of severe pain. Thus, given his ambulatory dysfunction he did agree with plan for admission. However, he continues to refuse MRI which was recommended on his recent admission. Case was discussed with Dr. Sorensen, Riri hospitalist, who will evaluate the patient for admission. Triage Nursing notes reviewed and agree them. Prior medical records reviewed Vital Signs: reviewed and remarkable for no significant abnormalities Differential diagnosis: Infection, dehydration, metabolic abnormality, hypo/hyperglycemia, electrolyte disturbance, anemia, hypoxia, cardiac sources, intracerebral event, toxicologic, neurologic, as well as other pathologies. ER treatment provided: See below. Diagnostics interpreted by me: Cardiac Monitoring: An order for continuous cardiac monitoring was placed and demonstrated atrial fibrillation, 82 bpm, no ectopy. Laboratory studies: See below Consultation(s): Case was discussed with Riri Kaye hospitalist, who will evaluate the patient for admission. HPI: The patient is a pleasant 71-year-old gentleman with a past medical history of chronic systolic heart failure secondary ischemic cardiomyopathy with a EF of 15-20%, CAD, hypertension, history of paroxysmal atrial fibrillation, paranoid schizophrenia, hypothyroidism, chronic leg lymphedema, medication noncompliance, history of homelessness who presents emergency department from home with complaints of persistence of his chronic back pain where he feels he is unable to ambulate which occurs in the setting of being discharged from [facility] yesterday following admission there following his recent admission to [facility] from 10/26-11/06. The patient is a poor historian. Initially reported that he was not walking at [facility] but then admits that he was during physical therapy. He reports he was receiving Babbitt while in rehab but did not get his prescription filled yet. I did review the patient's discharge plan with staff member at [facility] and it did appear that it was recommended that he have home services and therapy but the patient declined this. It does appear that he was discharged on a prescription for Babbitt. Patient denies any fevers, chills, cough, congestion, GI or symptoms. ROS: See above HPI for pertinent positives & negatives. A total of 10 systems reviewed and were otherwise negative. PAST MEDICAL HISTORY:See Below PAST SURGICAL HISTORY:See Below FAMILY HISTORY:See Below SOCIAL HISTORY:See Below HOME MEDICATIONS:See Below ALLERGIES:See Below VITALS:See Below PHYSICAL EXAMINATION: GENERAL: Awake, alert, chronically ill-appearing, in no distress, unkempt. HENT: Normocephalic, atraumatic. Oropharynx unremarkable. EYES: Normal conjunctiva. Sclera non-icteric. NECK: Supple. No nuchal rigidity. FROM. No JVD. RESPIRATORY: Clear to auscultation. CARDIAC: Regular rate, normal rhythm. Extremities warm and well perfused. Pulses equal. ABDOMEN: Soft, non-distended. No tenderness to palpation. No rebound or guarding. No masses. RECTAL: Deferred. MUSCULOSKELETAL: Chest examination reveals no tenderness. The back is symmetrical on inspection without obvious abnormality. There is no CVA tend erness to palpation. No joint edema. LOWER EXTREMITIES: 2+ RLE edema. Scant serous weeping. No foul smelling discharge. No erythema, warmth or tenderness. Distal PMS intact. NEURO: No focal sensory or motor deficits noted. 5/5 strength and SILT x 4 extremities. SKIN: No rash or jaundice noted. Mic Mcleod MD Past Med/Surg History Medical History CAD (coronary artery disease) Cholecystitis, acute Chronic systolic CHF (congestive heart failure) History of DVT (deep vein thrombosis) History of pancreatitis History of testicular cancer History of tobacco abuse Homelessness HTN (hypertension) Hypertension Hyperthyroidism Ischemic cardiomyopathy Lymphedema of right lower extremity Mitral regurgitation Palliative care encounter Pleural effusion Schizophrenia STEMI (ST elevation myocardial infarction) Tricuspid regurgitation Surgical History Hx of heart artery stent Status post cardiac catheterization Family History Other Unknown family medical history Social History Smoking Status: Former smoker Tobacco Type: Cigarettes Number of Years Since Quit: 10; Second Hand Exposure: No; Hx Alcohol Use: No Hx Substance Use: No Preferred Language: Uzbek Communication Ability: Effective Decorator Street And Building Required: No Beliefs That Will Affect Care: None marital status: Single Current Living Situation: Alone Current Living Situation Comment: Charissa Lees @ [facility] How many Children do You have: 0 Feels Safe at Home: No Is there a partner from a previous relationship who is making you feel unsafe now?: No Assistive Devices: Glasses Allergies Allergies Allergy/AdvReac Type Severity Reaction Status Date / Time horse dander Allergy Unknown Unknown Verified 11/18/21 22:35 tetanus toxoid, adsorbed Allergy Unknown Unknown Verified 11/18/21 22:35 Home Meds Home Medications Medication Instructions Recorded Confirmed atorvastatin 20 mg tablet 20 mg PO DAILY 11/18/21 11/18/21 docusate sodium 100 mg capsule 100 mg PO BID 11/18/21 11/18/21 Previous Rx's Medication Instructions Recorded aspirin 81 mg tablet,delayed 81 mg PO QAM 90 Days #90 tab 04/20/21 release levothyroxine 50 mcg tablet 50 mcg PO DAILYBB 30 Days #30 tab 04/20/21 (Synthroid) metoprolol succinate 25 mg 12.5 mg PO QAM 60 Days #30 tab 04/20/21 tablet,extended release 24 hr spironolactone 25 mg tablet 12.5 mg PO DAILY 60 Days #30 tab 04/20/21 furosemide 40 mg tablet 40 mg PO QAM #30 tab 11/06/21 hydrocodone 5 mg-acetaminophen 325 1 tab PO Q8H PRN #10 tab 11/06/21 mg tablet lidocaine 5 % topical patch 1 patch TRANSDERMAL QAM #10 ea 11/06/21 Results & Data (ED) Vital Signs Vital Signs - 24 hr 11/18/21 22:09 11/18/21 23:32 11/19/21 02:18 Temperature 36.8 C Temperature Source Oral Pulse Rate 86 Pulse Rate [Left Finger] 74 Pulse Rhythm Regular Pulse Strength Normal Respiratory Rate 16 15 Blood Pressure 146/71 H Blood Pressure [Right Arm] 125/76 Blood Pressure Mean 96 Blood Pressure Mean [Right Arm] 92 Blood Pressure Position Lying Blood Pressure Position [Right Arm] Lying Pulse Oximetry 100 95 Oxygen Delivery Method Room Air Room Air Room Air Sepsis Recent Fever Within 48 Hours No Sepsis New/Unexplained Change in Mental Status No Sepsis Action Taken by Nursing No Action Required Laboratory Data Attestation: I reviewed the patient's lab results. Result diagrams: 11/18/21 23:40 11/18/21 23:40 Lab Results 11/18/21 11/18/21 11/18/21 Range/Units 23:30 23:40 23:40 WBC 3.26 L (4.8-10.8) K/uL RBC 4.33 L (4.7-6.1) M/uL Hgb 11.9 L (14.0-18.0) g/dL Hct 36.2 L (42-52) % MCV 83.6 (80-100) fL MCH 27.5 (25-34) pg MCHC 32.9 (32-36) g/dL RDW Std Deviation 49.3 H (36.4-46.3) fL RDW Coeff of Dante 16.2 H (11.5-14.5) % Plt Count 249 (130-400) K/uL MPV 8.4 (7.4-10.4) fL Immature Gran % (Auto) 0.3 % Neut % (Auto) 76.7 % Lymph % (Auto) 10.1 % [place] % (Auto) 12.0 % Eos % (Auto) 0.6 % Baso % (Auto) 0.3 % Neut # (Auto) 2.50 (1.4-6.5) K/uL Lymph # (Auto) 0.33 L (1.2-3.4) K/uL [place] # (Auto) 0.39 (0.11-0.59) K/uL Eos # (Auto) 0.02 (0-0.5) K/uL Baso # (Auto) 0.01 (0-0.2) K/uL Immature Gran # (Auto) 0.01 (0.00-0.02) K/uL PT 11.0 (9.0-12.0) Seconds INR 1.1 (0.9-1.1) Sodium (136-145) mmol/L Potassium (3.5-5.1) mmol/L Chloride (98-107) mmol/L Carbon Dioxide (21-32) mmol/L Anion Gap (3-11) BUN (7-18) mg/dl Creatinine (0.6-1.4) mg/dl Est Cr Clr Drug Dosing ml/min Est GFR ( Amer) ml/min Est GFR (Non-Af Amer) ml/min BUN/Creatinine Ratio (10-20) Glucose (70-99) mg/dl Calcium (8.5-10.1) mg/dl Phosphorus (2.5-4.9) mg/dl Magnesium (1.8-2.4) mg/dl Total Bilirubin (0.2-1) mg/dl AST (15-37) U/L ALT (12-78) Alkaline Phosphatase (45-117) U/L Total Creatine Kinase (39-308) U/L Troponin I (0-0.045) ng/ml Total Protein (6.4-8.2) gm/dl Albumin (3.4-5.0) gm/dl Globulin (2.5-4.0) gm/dl Albumin/Globulin Ratio (0.9-2) Lipase (73-393) U/L SARS-CoV-2, RNA, NAAT POSITIVE A* (NEGATIVE) 11/18/21 Range/Units 23:40 WBC (4.8-10.8) K/uL RBC (4.7-6.1) M/uL Hgb (14.0-18.0) g/dL Hct (42-52) % MCV (80-100) fL MCH (25-34) pg MCHC (32-36) g/dL RDW Std Deviation (36.4-46.3) fL RDW Coeff of Dante (11.5-14.5) % Plt Count (130-400) K/uL MPV (7.4-10.4) fL Immature Gran % (Auto) % Neut % (Auto) % Lymph % (Auto) % [place] % (Auto) % Eos % (Auto) % Baso % (Auto) % Neut # (Auto) (1.4-6.5) K/uL Lymph # (Auto) (1.2-3.4) K/uL [place] # (Auto) (0.11-0.59) K/uL Eos # (Auto) (0-0.5) K/uL Baso # (Auto) (0-0.2) K/uL Immature Gran # (Auto) (0.00-0.02) K/uL PT (9.0-12.0) Seconds INR (0.9-1.1) Sodium 133 L (136-145) mmol/L Potassium 4.0 (3.5-5.1) mmol/L Chloride 99 (98-107) mmol/L Carbon Dioxide 26 (21-32) mmol/L Anion Gap 8.0 (3-11) BUN 46 H (7-18) mg/dl Creatinine 1.27 (0.6-1.4) mg/dl Est Cr Clr Drug Dosing 41.5 ml/min Est GFR ( Amer) 66.4 ml/min Est GFR (Non-Af Amer) 57.3 ml/min BUN/Creatinine Ratio 36.3 H (10-20) Glucose 92 (70-99) mg/dl Calcium 10.2 H (8.5-10.1) mg/dl Phosphorus 3.8 (2.5-4.9) mg/dl Magnesium 2.4 (1.8-2.4) mg/dl Total Bilirubin 1.1 H (0.2-1) mg/dl AST 30 (15-37) U/L ALT 26 (12-78) Alkaline Phosphatase 257 H (45-117) U/L Total Creatine Kinase 54 (39-308) U/L Troponin I < 0.015 (0-0.045) ng/ml Total Protein 9.6 H (6.4-8.2) gm/dl Albumin 2.9 L (3.4-5.0) gm/dl Globulin 6.7 H (2.5-4.0) gm/dl Albumin/Globulin Ratio 0.4 L (0.9-2) Lipase 115 (73-393) U/L SARS-CoV-2, RNA, NAAT (NEGATIVE) Administered Medications Discontinued Medications Hydrocodone Bitart/Acetaminophen (Hydrocodone/Acetamophen 5/325mg Tab) 1 tab PO NOW STA Stop: 11/18/21 23:02 Last Admin: 11/18/21 23:06 Dose: 1 tab Documented by: [id number] Dexamethasone Sodium Phosphate (DexamethasonePf 10 Mg/Ml Vial) 10 mg IV NOW ONE Stop: 11/19/21 01:00 Last Admin: 11/19/21 02:02 Dose: 10 mg Documented by: [id number] Acetaminophen (Ofirmev) 1,000 mg in 100 mls @ 400 mls/hr IV NOW STA Stop: 11/19/21 01:13 Last Infusion: 11/19/21 02:20 Dose: 0 mls/hr Documented by: [id number] Admin: 11/19/21 02:02 Dose: 400 mls/hr Documented by: [id number] Lidocaine (Lidocaine 5% 1 Patch) 1 patch TD NOW STA Stop: 11/19/21 01:00 Last Admin: 11/19/21 02:02 Dose: 1 patch Documented by: [id number] Morphine Sulfate (Morphine Sulfate 2 Mg/Ml Carp) 2 mg IV NOW STA Stop: 11/19/21 01:00 Last Admin: 11/19/21 02:01 Dose: 2 mg Documented by: [id number] Ondansetron HCl (Ondansetron Inj 2 Mg/Ml 2 Ml Vial) 4 mg IV NOW STA Stop: 11/19/21 02:10 Last Admin: 11/19/21 02:15 Dose: Not Given Documented by: [id number] Ondansetron HCl (Ondansetron Inj 2 Mg/Ml 2 Ml Vial) Confirm Administered Dose 4 mg .ROUTE .STK-MED ONE Stop: 11/19/21 02:11 Last Admin: 11/19/21 02:14 Dose: 4 mg Documented by: [id number] Discharge Plan Visit Data Chief Complaint: Weakness Stated Complaint: UNABLE TO AMBULATE ED Provider: Mic Mcleod Discharge Problem: Ambulatory dysfunction, Noncompliance, Chronic low back pain, Lab test positive for detection of COVID-19 virus Forms Stand Alone Forms: My [facility] Prescriptions Prescriptions: No Action atorvastatin 20 mg tablet 20 mg PO DAILY RF: 0 docusate sodium 100 mg capsule 100 mg PO BID RF: 0 aspirin 81 mg Tablet,Delayed Release (Dr/Ec) 81 mg PO QAM 90 Days Qty: 90 RF: 1 spironolactone 25 mg Tablet 12.5 mg PO DAILY 60 Days Qty: 30 RF: 1 levothyroxine [Synthroid] 50 mcg Tablet 50 mcg PO DAILYBB 30 Days Qty: 30 RF: 1 metoprolol succinate 25 mg Tablet Extended Release 24 Hr 12.5 mg PO QAM 60 Days Qty: 30 RF: 1 furosemide 40 mg Tablet 40 mg PO QAM Qty: 30 RF: 0 hydrocodone-acetaminophen 5-325 mg Tablet 1 tab PO Q8H PRN (Reason: pain) Qty: 10 RF: 0 lidocaine 5 % Adhesive Patch,Medicated 1 patch transdermal QAM Qty: 10 RF: 0 Referrals Referrals: PCP,NO [Primary Care Provider] - Discharge Problem: Chronic low back pain Qualifiers: Back pain laterality: unspecified Sciatica presence: with sciatica Sciatica laterality: sciatica of left side Qualified Code(s): M54.42 - Lumbago with sciatica, left side
[2021-11-19 05:10] LABS: Influenza A virus by PCR Negative (Neg); Influenza B virus by PCR Negative (Neg); RSV by PCR Negative (Neg); SARS CoV2 RNA(COVID-19) InHosp POSITIVE (Negative)
[2021-11-19] MEDS ORDERED: POLYETHYLENE (MIRALAX) 17 GM PACK PO PRN (06:00)
[2021-11-19] MEDS ORDERED: NITROGLYCERIN SL 0.4 MG/TAB TAB SL PRN (06:00)
[2021-11-19] MEDS ORDERED: ACETAMINOPHEN 325 MG TAB PO PRN (06:00)
[2021-11-19] MEDS ORDERED: PROMETHAZINE HCL 12.5 MG in SODIUM CHLORIDE 0.9% 50 ML IV STA (06:34)
[2021-11-19] MEDS: ENOXAPARIN INJ 40 MG/0.4 ML SYR SQ SCH (06:52)
[2021-11-19] MEDS: HYDROCODONE/ACETAMOPHEN 5/325MG TAB PO PRN ×3 (06:53→23:14)
[2021-11-19] MEDS: LEVOTHYROXINE SODIUM 50 MCG TABLET PO SCH (06:53)
[2021-11-19 07:18] LABS: Eosinophils # (auto) 0.01 K/uL (0-0.5); Eosinophils % (auto) 0.4 %; Hematocrit (blood only) 32.7 % (42-52); Hemoglobin 10.5 g/dL (14.0-18.0); Immature Granulocytes # (auto) 0.01 K/uL (0.00-0.02); Immature Granulocytes % (auto) 0.4 %; Lymphocytes # (auto) 0.26 K/uL (1.2-3.4); Lymphocytes % (auto) 11.6 %; Mean Corpuscular Hemoglobin 27.3 pg (25-34); Mean Corpuscular Hgb Conc 32.1 g/dL (32-36); Mean Corpuscular Volume 84.9 fL (80-100); Mean Platelet Volume 8.4 fL (7.4-10.4); Monocytes # (auto) 0.06 K/uL (0.11-0.59); Monocytes % (auto) 2.7 %; Neutrophils % (auto) 84.9 %; Platelet Count 238 K/uL (130-400); RDW Coefficient of Variation 16.4 % (11.5-14.5); RDW Standard Deviation 50.9 fL (36.4-46.3); Red Blood Count 3.85 M/uL (4.7-6.1); White Blood Count 2.24 K/uL (4.8-10.8)
[2021-11-19] MEDS: SPIRONOLACTONE 12.5 MG TAB PO SCH (07:37)
[2021-11-19] MEDS: FUROSEMIDE 40 MG TAB PO SCH (07:38)
--- NOTE | 2021-11-19 07:45 | History and Physical Report ---
DATE OF ADMISSION: 11/19/2021. CHIEF COMPLAINT: Weakness. HISTORY OF PRESENT ILLNESS: A 71-year-old male with past medical history significant for chronic systolic heart failure secondary to ischemic cardiomyopathy, EF of 15% to 20% on echo in 2019, severe mitral regurgitation, CAD, status post stent, hypertension, history of paroxysmal atrial fibrillation, paranoid schizophrenia, past history of DVT, history of testicular cancer, status post surgery and chemotherapy, hyperthyroidism, history of chronic lower extremity lymphedema, history of medication noncompliance, who was recently in the hospital for right lower extremity cellulitis, treated with antibiotics, and also mild [id number] systolic CHF and LAUREN and diarrhea and he was discharged to [facility]. Comes back because of weakness. He complains of left sacroiliac joint pain and last admission hip CT was unremarkable and he refused MRI. [facility], advised for home health, he refused. He says after coming home he is not able to get up from the bed, not able to get up from the couch. He is not able to do anything, extreme weakness, so that is why he came to the hospital. Currently, resting comfortably, hemodynamically stable. Saturating fine on room air. His rapid COVID test came back positive. The patient is unvaccinated. The patient has no cough. Denies any headache. Has nausea, one episode of vomiting, however, attributes it to pain medication in the ER. He is somewhat constipated. No abdominal pain. Sometimes he gets short of breath, chest pains are on and off far in between,seems chronic problem. No blurry visions, no earache. He has some runny nose for few weeks. No sore throat. Appetite is not that great. No difficulty swallowing. Normal bladder movements. He says legs are looking better. ALLERGIES: HORSE DANDER, TETANUS TOXOID. PAST MEDICAL HISTORY: As mentioned above. PAST SURGICAL HISTORY: History of heart stent, history of surgery for testicular cancer. MEDICATIONS: The patient is on aspirin 81 mg p.o. daily, atorvastatin 20 mg p.o. a.m., Colace 100 mg p.o. b.i.d., Lasix 40 mg p.o. a.m., hydrocodone/acetaminophen 1 tablet p.o. q. 8 hours p.r.n., levothyroxine 50 mcg p.o. daily, lidocaine patch daily, metoprolol succinate 12.5 mg p.o. a.m., spironolactone 12.5 mg p.o. daily. FAMILY HISTORY: Significant for unknown family history. SOCIAL HISTORY: Former smoker. No alcohol use. No substance use. Currently living in apartments. REVIEW OF SYSTEMS: As per HPI. Rest of review of systems is negative. PHYSICAL EXAMINATION: GENERAL: The patient is thin and frail, not in acute distress. VITAL SIGNS: Temperature 36.8, pulse 74, respiratory rate 15, blood pressure 125/76, oxygen 95% on room air. HEENT: Pupils equal, round and reactive to light. Oral mucosa moist. NECK: No JVD, no neck masses. CARDIOVASCULAR: S1 and S2 heard. Regular rate and rhythm. No murmur, no gallop. RESPIRATORY SYSTEM: Normal AP diameter. No accessory muscle use. No wheezing, no crackles. ABDOMEN: Soft, bowel sounds present, nontender, no distention. CENTRAL NERVOUS SYSTEM: Cranial nerves II-XII grossly intact, nonfocal. EXTREMITIES: Right lower extremity is in a dressing. No erythema, no edema seen. LABORATORY DATA: WBC 3.2, hemoglobin 11.9, hematocrit 36.2, platelets 249. PT 11, INR 1.1. Sodium 133, potassium 4, chloride 99, bicarb 26, BUN 46, creatinine 1.2, serum glucose 92, calcium 10.2, phosphorus 3.8, magnesium 2.4, total bilirubin 1.1, AST 30, ALT 26, alkaline phosphatase 257, total creatine kinase 54. Troponin I less than 0.015. Lipase 115. SARS-CoV-2 RNA positive. ASSESSMENT AND PLAN: This is a 71-year-old male who was recently in the hospital for right lower extremity cellulitis and congestive heart failure and improved, discharged to [facility], and who was discharged home yesterday. Comes back with weakness. 1. Weakness and left hip pain: The patient refused MRI on last admission. He says he is not able to do anything because he is not able to get up and do a walk. Will get PT/OT. Monitor in the hospital. 2. COVID positive: Possibly contributing to symptoms. He is unvaccinated, currently asymptomatic. Will get a chest x-ray. . Currently closely monitor in the hospital. [facility] cov[facility] and also RSV and influenza. 3. Chronic systolic congestive heart failure and severe mitral regurgitation: Last time his EF was 20% in echo 2020. Last admission, Lasix was reduced to 40 mg daily, which will be continued. Continue metoprolol succinate. Monitor for volume overload. 4. Atrial fibrillation: Rate controlled on metoprolol, not on anticoagulation due to fall risk and history of medical noncompliance. 5. History of coronary artery disease: Continue aspirin, statin, beta polo. 6. Hypothyroidism: Continue Synthroid. 7. Deep venous thrombosis prophylaxis: Placed on Lovenox. DISPOSITION: Admit to [facility]. PT/OT prior to discharge. Social service to help with discharge planning. Level 1 full code. Job ID: [id number] MTDD
[2021-11-19 07:54] LABS: BUN Creatinine Ratio 38.1 (10-20); Calcium 9.5 mg/dl (8.5-10.1); Creatinine Clr Calc Pharmacy 43.2 ml/min; Est GFR (African American) 73.3 ml/min; Est GFR (Non-African American) 63.2 ml/min; Magnesium 2.4 mg/dl (1.8-2.4); Potassium 4.2 mmol/L (3.5-5.1)
--- NOTE | 2021-11-19 07:58 | XRay Report ---
XR chest 1V portable CLINICAL HISTORY: Covid positive. Evaluate for pneumonia.. COMPARISON STUDY: 10/26/2021 TECHNIQUE: 1 view of the chest FINDINGS: Single frontal view of the chest demonstrates the heart to again be moderately enlarged. The lungs ar e clear of alveolar opacities. There is no evidence for pleural effusion. There is no evidence for va scular congestion. There is no acute osseous pathology. IMPRESSION: No acute cardiopulmonary disease. Cardiomegaly. ACT 112: Negative or not required by law. Electronically signed by: Vinnie Shin M.D. 11/19/2021 7:56 AM
[2021-11-19] MEDS: METOPROLOL SUCC 25MG EXT REL TAB PO SCH (08:27)
[2021-11-19] MEDS: DOCUSATE SODIUM 100 MG CAP PO SCH ×2 (08:27→19:39)
[2021-11-19] MEDS: LIDOCAINE 5% 1 PATCH TD SCH (08:27)
[2021-11-19] MEDS: ATORVASTATIN 20 MG TAB PO SCH (08:27)
[2021-11-19] MEDS: ASPIRIN 81 MG ECTAB PO SCH (08:27)
--- NOTE | 2021-11-19 21:21 | Communication Note ---
Date of Service: November 19, 2021 Patient was seen and examined for follow-up of weakness associated with ambulatory dysfunction. Patient recently discharged from [facility]hab. He said the first night after discharge from [facility] to home that he slept wel He said that yesterday he could not get up or walk. He said that he continues to have pain. He denies any upper respiratory infection, chest pain and SOB General- No acute distress Head- atraumatic Eyes- PERRL, EOMI, ENT- oropharynx clear Neck- supple, no JVD Lungs- diminished BS Heart- regular rhythm; no murmur Abdomen- normal bowel sounds, soft, nontender Extremities- no calf tenderness Neuro- alert, oriented PERRL, EOMI; no facial palsy; no dysarthria Skin- warm & dry A/P . Weakness Ambulatory dysfunction gait Recently discharged from [facility] PT/OT gerald Fall precaution COVID 19 Tested positive for COVID-19 on admission. Pt is unvaccinated CXR showed no acute cardiopulmonary disease. Upper respiratory infection Does not meet the criteria Decadron and remdesivir since pt is asymptomatic saturated well on RA Clinically stable DVT px on Lovenox CODE status Full code
[2021-11-20] MEDS: ENOXAPARIN INJ 40 MG/0.4 ML SYR SQ SCH (05:51)
[2021-11-20] MEDS: LEVOTHYROXINE SODIUM 50 MCG TABLET PO SCH (05:52)
[2021-11-20] MEDS: METOPROLOL SUCC 25MG EXT REL TAB PO SCH (08:12)
[2021-11-20] MEDS: SPIRONOLACTONE 12.5 MG TAB PO SCH (08:13)
[2021-11-20] MEDS: FUROSEMIDE 40 MG TAB PO SCH (08:13)
[2021-11-20] MEDS: LIDOCAINE 5% 1 PATCH TD SCH (08:14)
[2021-11-20] MEDS: ASPIRIN 81 MG ECTAB PO SCH (08:15)
[2021-11-20] MEDS: ATORVASTATIN 20 MG TAB PO SCH (08:15)
[2021-11-20] MEDS: DOCUSATE SODIUM 100 MG CAP PO SCH ×2 (08:15→19:09)
[2021-11-20] MEDS: HYDROCODONE/ACETAMOPHEN 5/325MG TAB PO PRN ×3 (09:06→22:27)
[2021-11-20] MEDS: ONDANSETRON INJ 2 MG/ML 2 ML VIAL IV PRN (19:17)
--- NOTE | 2021-11-20 19:25 | Electrocardiogram Report ---
Test Reason : Blood Pressure : / mmHG Vent. Rate : 085 BPM Atrial Rate : 078 BPM P-R Int : 000 ms QRS Dur : 090 ms QT Int : 410 ms P-R-T Axes : 000 093 069 degrees QTc Int : 487 ms Poor data quality, interpretation may be adversely affected Atrial fibrillation Rightward axis Moderate voltage criteria for LVH, may be normal variant Nonspecific ST and T wave abnormality Abnormal ECG When compared with ECG of 01-NOV-2021 10:04, Atrial fibrillation has replaced Sinus rhythm Confirmed by Viktor Ingram ([id number]) on 11/20/2021 7:25:25 PM Referred By: REFERRED SELF Confirmed By:Viktor Ingram
--- NOTE | 2021-11-20 22:17 | Hospitalist Progress Note ---
Date of Service November 20, 2021 Assessment & Plan (1) Ambulatory dysfunction: Plan: Generalized weakness Recently discharged from [facility] Continue PT/OT evaluation Fall precaution COVID 19 Tested positive for COVID-19 on admission. Pt is unvaccinated CXR showed no acute cardiopulmonary disease. Upper respiratory infection Does not meet the criteria Decadron and remdesivir since pt is asymptomatic saturated well on RA Clinically stable Hx Atrial fibrillation Rate control Not on anticoagulant due to his non compliant continue metoprolol, and aspirin, Plavix Ischemic Cardiomyopathy Discussed with patient that he needs to be complaint with his med Continue Metoprolol, spironolactone, Lasix and Lisinopril Not a good candidate for ICD placement due to medication noncompliant and paranoid behavior Stable Chronic right leg lymphedema Stable Hypothyroidism Levothyroxine 50 mg daily Paranoid schizophrenia Continue risperidone Stable DVT prophylaxis On Lovenox subq CODE STATUS Full code Admission and Anticipated Discharge Date Admission Date: November 19, 2021 Subjective Pt was seen and examined for follow up of weakness Lying in bed with no acute distress Pt said that he continues to have pain that is chronic He asking for more pain mediation Nurse said that he chose which mediation that he wants to take Saturated well on RA Denies any chest pain, palpitation and SOB Review of Systems Review of Systems: All systems reviewed & are unremarkable except as noted in Subjective Physical Exam Physical Exam: General- No acute distress Head- atraumatic Eyes- PERRL, EOMI, ENT- oropharynx clear Neck- supple, no JVD Lungs- diminished BS Heart- no murmur Abdomen- normal bowel sounds, soft, nontender Extremities- no calf tenderness Neuro- alert, oriented PERRL, EOMI; no facial palsy; no dysarthria Skin- warm & dry Results & Data Results & Data ([facility]) Vital Signs (Past 12 Hours) Vital Signs Temp Pulse Pulse Resp BP Pulse Ox 11/20/21 19:11 36.7 C 62 16 119/80 98 11/20/21 16:00 61 11/20/21 15:28 36.5 C 74 19 132/79 95 11/20/21 11:36 36.5 C 64 19 105/74 98
[2021-11-21] MEDS: ENOXAPARIN INJ 40 MG/0.4 ML SYR SQ SCH (06:36)
[2021-11-21] MEDS: HYDROCODONE/ACETAMOPHEN 5/325MG TAB PO PRN ×3 (08:13→20:21)
[2021-11-21] MEDS: FUROSEMIDE 40 MG TAB PO SCH (08:14)
[2021-11-21] MEDS: ASPIRIN 81 MG ECTAB PO SCH (08:15)
[2021-11-21] MEDS: LEVOTHYROXINE SODIUM 50 MCG TABLET PO SCH (08:15)
[2021-11-21] MEDS: METOPROLOL SUCC 25MG EXT REL TAB PO SCH (08:15)
[2021-11-21] MEDS: SPIRONOLACTONE 12.5 MG TAB PO SCH (08:15)
[2021-11-21] MEDS: ATORVASTATIN 20 MG TAB PO SCH (08:15)
[2021-11-21] MEDS: LIDOCAINE 5% 1 PATCH TD SCH (08:16)
[2021-11-21] MEDS: DOCUSATE SODIUM 100 MG CAP PO SCH ×2 (08:16→20:20)
[2021-11-21 09:12] LABS: Hematocrit (blood only) 34.7 % (42-52); Hemoglobin 11.1 g/dL (14.0-18.0); Mean Corpuscular Hemoglobin 27.4 pg (25-34); Mean Corpuscular Volume 85.7 fL (80-100); Mean Platelet Volume 8.6 fL (7.4-10.4); Platelet Count 239 K/uL (130-400); RDW Coefficient of Variation 16.9 % (11.5-14.5); RDW Standard Deviation 52.7 fL (36.4-46.3); Red Blood Count 4.05 M/uL (4.7-6.1); White Blood Count 4.18 K/uL (4.8-10.8)
[2021-11-21 09:44] LABS: BUN Creatinine Ratio 40.8 (10-20); Calcium 9.1 mg/dl (8.5-10.1); Creatinine Clr Calc Pharmacy 49.2 ml/min; Est GFR (African American) 78.1 ml/min; Est GFR (Non-African American) 67.4 ml/min; Potassium 4.3 mmol/L (3.5-5.1)
[2021-11-21] MEDS: ONDANSETRON INJ 2 MG/ML 2 ML VIAL IV PRN ×2 (11:36→16:59)
--- NOTE | 2021-11-21 18:54 | Hospitalist Progress Note ---
Date of Service November 21, 2021 Assessment & Plan (1) Ambulatory dysfunction: Plan: Generalized weakness Recently discharged from [facility] Continue PT/OT evaluation Fall precaution COVID 19 Tested positive for COVID-19 on admission. Pt is unvaccinated CXR showed no acute cardiopulmonary disease. Upper respiratory infection Does not meet the criteria Decadron and remdesivir since pt is asymptomatic saturated well on RA Clinically stable Hx Atrial fibrillation Rate control Not on anticoagulant due to his non compliant continue metoprolol, and aspirin, Plavix Ischemic Cardiomyopathy Discussed with patient that he needs to be complaint with his med Continue Metoprolol, spironolactone, Lasix and Lisinopril Not a good candidate for ICD placement due to medication noncompliant and paranoid behavior Stable Chronic right leg lymphedema Stable Hypothyroidism Levothyroxine 50 mg daily Paranoid schizophrenia Continue risperidone Stable DVT prophylaxis On Lovenox subq CODE STATUS Full code Disposition Consider to discharge to rehab Admission and Anticipated Discharge Date Admission Date: November 19, 2021 Subjective Pt was seen and examined for follow up of weakness Lying in bed with no acute distress He said that he feels nauseated and continues to have pain Nurse said pt put his hands to his tight for support to walk to the bathroom Denies any chest pain, palpitation and SOB Review of Systems Review of Systems: All systems reviewed & are unremarkable except as noted in Subjective Physical Exam Physical Exam: General- No acute distress Head- atraumatic Eyes- PERRL, EOMI, ENT- oropharynx clear Neck- supple, no JVD Lungs- diminished BS Heart- no murmur Abdomen- normal bowel sounds, soft, nontender Extremities- no calf tenderness Neuro- alert, oriented PERRL, EOMI; no facial palsy; no dysarthria Skin- warm & dry Results & Data Results & Data ([facility]) Vital Signs (Past 12 Hours) Vital Signs Temp Pulse Pulse Resp BP BP Pulse Ox 11/21/21 16:48 71 11/21/21 15:24 36.8 C 74 17 121/72 97 11/21/21 11:26 36.9 C 66 18 112/66 98 11/21/21 08:00 68 11/21/21 07:27 37.0 C 80 17 130/80 98
[2021-11-22] MEDS: HYDROCODONE/ACETAMOPHEN 5/325MG TAB PO PRN ×4 (02:47→21:14)
[2021-11-22] MEDS: LEVOTHYROXINE SODIUM 50 MCG TABLET PO SCH (06:15)
[2021-11-22] MEDS: ENOXAPARIN INJ 40 MG/0.4 ML SYR SQ SCH (06:17)
[2021-11-22] MEDS: ASPIRIN 81 MG ECTAB PO SCH (09:05)
[2021-11-22] MEDS: DOCUSATE SODIUM 100 MG CAP PO SCH ×2 (09:05→21:16)
[2021-11-22] MEDS: ONDANSETRON INJ 2 MG/ML 2 ML VIAL IV PRN ×2 (09:06→16:35)
[2021-11-22] MEDS: SPIRONOLACTONE 12.5 MG TAB PO SCH (09:06)
[2021-11-22] MEDS: FUROSEMIDE 40 MG TAB PO SCH (09:06)
[2021-11-22] MEDS: METOPROLOL SUCC 25MG EXT REL TAB PO SCH (09:07)
[2021-11-22] MEDS: ATORVASTATIN 20 MG TAB PO SCH (09:07)
[2021-11-22] MEDS: LIDOCAINE 5% 1 PATCH TD SCH (09:12)
[2021-11-22 10:34] LABS: BUN Creatinine Ratio 35.1 (10-20); Calcium 9.2 mg/dl (8.5-10.1); Creatinine Clr Calc Pharmacy 42.3 ml/min; Est GFR (African American) 65.1 ml/min; Est GFR (Non-African American) 56.2 ml/min; Potassium 4.2 mmol/L (3.5-5.1)
--- NOTE | 2021-11-22 13:55 | Hospitalist Progress Note ---
Date of Service November 22, 2021 Assessment & Plan (1) Ambulatory dysfunction: Plan: Generalized weakness May be secondary to COVID-19 virus infection Recently discharged from [facility] The ambulatory dysfunction is being exaggerated by back pain Continue PT/OT evaluation Fall precaution COVID 19 Tested positive for COVID-19 on admission. Pt is unvaccinated CXR showed no acute cardiopulmonary disease. Upper respiratory infection Does not meet the criteria Decadron and remdesivir since pt is asymptomatic saturated well on RA Clinically stable and denies any cough and/or shortness of breath Has been saturating normally on room air Low back pain Pain has been worse for the last few days Has been getting Lidoderm patch and will add Voltaren gel on top of Tylenol and small dose of narcotic He will get PT and OT evaluation depending on that he will be placed Clinically no radiculopathic pain Hx Atrial fibrillation Rate control Not on anticoagulant due to his non compliant continue metoprolol, and aspirin, Plavix Ischemic Cardiomyopathy Discussed with patient that he needs to be complaint with his med Continue Metoprolol, spironolactone, Lasix and Lisinopril Not a good candidate for ICD placement due to medication noncompliant and paranoid behavior Stable Chronic right leg lymphedema Stable Hypothyroidism Levothyroxine 50 mg daily Paranoid schizophrenia Continue risperidone Stable DVT prophylaxis On Lovenox subq CODE STATUS Full code Disposition Consider to discharge to rehab Admission and Anticipated Discharge Date Admission Date: November 19, 2021 Subjective 11/22/2021 The patient was seen and examined in telemetry unit and in Covid room He complains of pain at the back and that goes down to the legs Denies any symptoms secondary to Covid and has not been requiring any oxygen to maintain saturation Review of Systems Review of Systems: All systems reviewed and are unremarkable except as noted below Respiratory: No respiratory distress and no shortness of breath Physical Exam Physical Exam: Lying in bed comfortably Constitutional: + ill appearing and + thin Eyes: PERRL, conjunctivae normal, anicteric sclerae ENMT: external ear and nose normal, oropharynx normal Neck: trachea midline, no thyromegaly Respiratory: no respiratory distress Auscultation: + diminished lung sounds; no crackles and no wheezes Cardiovascular: Rate/Rhythm: regular rate and regular rhythm; not tachycardic Heart Sounds: normal S1 and normal S2; no murmur Extremities: no edema Left leg is bandaged and has chronic skin changes Gastrointestinal (Abdomen): Inspection/Auscultation: abdomen not distended Percussion/Palpation: abdomen soft; abdomen nontender Musculoskeletal: No acute arthritis in any joint Neurologic: Alert, awake and oriented x3. No focal sensory and motor deficit appreciated Lymphatic: no cervical or axillary lymphadenopathy Results & Data Results & Data ([facility]) Vital Signs (Past 12 Hours) Vital Signs Temp Pulse Pulse Resp BP Pulse Ox 11/22/21 08:40 36.9 C 75 18 141/82 H 94 11/22/21 08:00 65 11/22/21 02:48 36.7 C 74 16 116/77 97 Laboratory Results BMP 11/22/21 08:00 Sodium 133 L Potassium 4.2 Chloride 98 Carbon Dioxide 26 BUN 45 H Creatinine 1.29 Glucose 81 Calcium 9.2 Medications Administered Current Inpatient Medications Acetaminophen (Acetaminophen 325 Mg Tab) 650 mg PO Q4H PRN PRN Reason: Pain or Fever Stop: 12/19/21 05:59 Hydrocodone Bitart/Acetaminophen (Hydrocodone/Acetamophen 5/325mg Tab) 1 tab PO Q6H PRN PRN Reason: pain Stop: 12/03/21 05:59 Last Admin: 11/22/21 09:16 Dose: 1 tab Documented by: Aspirin (Aspirin 81 Mg Ectab) 81 mg PO QAM [facility] Stop: 12/19/21 08:59 Last Admin: 11/22/21 09:05 Dose: Not Given Documented by: Atorvastatin Calcium (Atorvastatin 20 Mg Tab) 20 mg PO DAILY [facility] Stop: 12/19/21 08:59 Last Admin: 11/22/21 09:07 Dose: 20 mg Documented by: Diclofenac Sodium (Diclofenac Sod 1% Gel 100 Gm Tube) 2 gm EXT BID [facility] Stop: 12/22/21 20:59 Docusate Sodium (Docusate Sodium 100 Mg Cap) 100 mg PO BID [facility] Stop: 12/19/21 08:59 Last Admin: 11/22/21 09:05 Dose: Not Given Documented by: Enoxaparin Sodium (Enoxaparin Inj 40 Mg/0.4 Ml Syr) 40 mg SQ Q24H [facility] Stop: 12/19/21 05:59 Last Admin: 11/22/21 06:17 Dose: Not Given Documented by: Furosemide (Furosemide 40 Mg Tab) 40 mg PO QAM [facility] Stop: 12/19/21 08:59 Last Admin: 11/22/21 09:06 Dose: 40 mg Documented by: Levothyroxine Sodium (Levothyroxine Sodium 50 Mcg Tablet) 50 mcg PO DAILYBB [facility] Stop: 12/19/21 06:29 Last Admin: 11/22/21 06:15 Dose: 50 mcg Documented by: Lidocaine (L[facility]ocaine 5% 1 Patch) [facility] Stop: 12/19/21 08:59 Last Admin: 11/22/21 09:12 Dose: 1 patch Documented by: Metoprolol Succinate (Metoprolol Succ 25mg Ext Rel Tab) 12.5 [facility] Stop: 12/19/21 08:59 Last Admin: 11/22/21 09:07 Dose: 12.5 mg Documented by: Miscellaneous (Remove Lidoderm Patch) 1 ea N/A DAILY@2100 [facility] Stop: 12/19/21 20:59 Last Admin: 11/21/21 20:22 Dose: 1 ea Documented by: Miscellaneous (Remove Lidoderm Patch) 1 ea N/A DAILY@2099 [facility] Stop: 12/19/21 20:59 Last Admin: 11/21/21 20:23 Dose: 1 ea Documented by: Nitroglycerin (Nitroglycerin Sl 0.4 Mg/Tab Tab) 0.4 mg SL UD PRN PRN Reason: Chest Pain Stop: 12/19/21 05:59 Ondansetron HCl (Ondansetron Inj 2 Mg/Ml 2 Ml Vial) 4 mg IV Q6H PRN PRN Reason: Nausea Stop: 12/19/21 05:59 Last Admin: 11/22/21 09:06 Dose: 4 mg Documented by: Polyethylene Glycol (Polyethylene (Miralax) 17 Gm Pack) 17 gm PO DAILY PRN PRN Reason: Constipation Stop: 12/19/21 05:59 Spironolactone (Spironolactone 12.5 Mg Tab) 12.5 mg PO DAILY [facility] Stop: 12/19/21 08:59 Last Admin: 11/22/21 09:06 Dose: 12.5 mg Documented by:
[2021-11-22] MEDS: DICLOFENAC SOD 1% GEL 100 GM TUBE EXT SCH (21:16)
[2021-11-23] MEDS: HYDROCODONE/ACETAMOPHEN 5/325MG TAB PO PRN ×3 (06:04→18:02)
[2021-11-23] MEDS: LEVOTHYROXINE SODIUM 50 MCG TABLET PO SCH (06:04)
[2021-11-23] MEDS: ENOXAPARIN INJ 40 MG/0.4 ML SYR SQ SCH (06:04)
[2021-11-23] MEDS: LIDOCAINE 5% 1 PATCH TD SCH (08:19)
[2021-11-23] MEDS: SPIRONOLACTONE 12.5 MG TAB PO SCH (08:20)
[2021-11-23] MEDS: ATORVASTATIN 20 MG TAB PO SCH (08:20)
[2021-11-23] MEDS: METOPROLOL SUCC 25MG EXT REL TAB PO SCH (08:20)
[2021-11-23] MEDS: FUROSEMIDE 40 MG TAB PO SCH (08:21)
[2021-11-23] MEDS: DICLOFENAC SOD 1% GEL 100 GM TUBE EXT SCH ×2 (08:21→20:24)
[2021-11-23] MEDS: ASPIRIN 81 MG ECTAB PO SCH (08:23)
[2021-11-23] MEDS: DOCUSATE SODIUM 100 MG CAP PO SCH ×2 (08:23→20:24)
[2021-11-23] MEDS ORDERED: HYDROmorphone INJ 0.5 MG/0.5 ML SYR IV ONE (13:53)
--- NOTE | 2021-11-23 13:58 | Hospitalist Progress Note ---
Date of Service November 23, 2021 Assessment & Plan (1) Ambulatory dysfunction: Plan: Generalized weakness May be secondary to COVID-19 virus infection Recently discharged from [facility] The ambulatory dysfunction is being exaggerated by back pain Continue PT/OT evaluation-still pending Fall precaution COVID 19 Tested positive for COVID-19 on admission. Pt is unvaccinated CXR showed no acute cardiopulmonary disease. Upper respiratory infection Does not meet the criteria Decadron and remdesivir since pt is asymptomatic saturated well on RA Clinically stable and denies any cough and/or shortness of breath Has been saturating normally on room air Low back pain Pain has been worse for the last few days Has been getting Lidoderm patch and will add Voltaren gel on top of Tylenol and small dose of narcotic He will get PT and OT evaluation depending on that he will be placed Clinically no radiculopathic pain Will try small dose of intravenous Dilaudid before physical therapy Like to go back to [facility] following PT and OT evaluation Hx Atrial fibrillation Rate control Not on anticoagulant due to his non compliant continue metoprolol, and aspirin, Plavix Ischemic Cardiomyopathy Discussed with patient that he needs to be complaint with his med Continue Metoprolol, spironolactone, Lasix and Lisinopril Not a good candidate for ICD placement due to medication noncompliant and paranoid behavior Stable -no evidence of fluid overload Chronic right leg lymphedema Stable Hypothyroidism Levothyroxine 50 mg daily Paranoid schizophrenia Continue risperidone Stable DVT prophylaxis On Lovenox subq CODE STATUS Full code Disposition Consider to discharge to rehab Admission and Anticipated Discharge Date Admission Date: November 19, 2021 Subjective 11/22/2021 The patient was seen and examined in telemetry unit and in Covid room He complains of pain at the back and that goes down to the legs Denies any symptoms secondary to Covid and has not been requiring any oxygen to maintain saturation 11/23/2021 The patient was seen and examined in telemetry unit and in the Covid room He does not have any symptoms related to Covid Complains of more pain at the back without radiation and wanted to have more pain medications Review of Systems Review of Systems: All systems reviewed and are unremarkable except as noted below Respiratory: No respiratory distress and no shortness of breath Physical Exam Physical Exam: Lying in bed with acute distress due to low back pain Constitutional: + ill appearing and + thin Eyes: PERRL, conjunctivae normal, anicteric sclerae ENMT: external ear and nose normal, oropharynx normal Neck: trachea midline, no thyromegaly Respiratory: no respiratory distress Auscultation: + diminished lung sounds; no crackles and no wheezes Cardiovascular: Rate/Rhythm: regular rate and regular rhythm; not tachycardic Heart Sounds: normal S1 and normal S2; no murmur Extremities: no edema Gastrointestinal (Abdomen): Inspection/Auscultation: abdomen not distended Percussion/Palpation: abdomen soft; abdomen nontender Musculoskeletal: Low back pain without any acute arthritis in any other joint Neurologic: Alert and awake. Generally weak Lymphatic: no cervical or axillary lymphadenopathy Results & Data Results & Data ([facility]) Vital Signs (Past 12 Hours) Vital Signs Temp Pulse Resp BP BP Pulse Ox 11/23/21 11:55 36.6 C 64 17 117/78 99 11/23/21 08:16 36.9 C 70 16 110/61 97 11/23/21 03:33 36.8 C 65 19 117/99 100 Medications Administered Current Inpatient Medications Acetaminophen (Acetaminophen 325 Mg Tab) 650 mg PO Q4H PRN PRN Reason: Pain or Fever Stop: 12/19/21 05:59 Hydrocodone Bitart/Acetaminophen (Hydrocodone/Acetamophen 5/325mg Tab) 1 tab PO Q6H PRN PRN Reason: pain Stop: 12/03/21 05:59 Last Admin: 11/23/21 12:16 Dose: 1 tab Documented by: Aspirin (Aspirin 81 Mg Ectab) 81 mg PO QAM [facility] Stop: 12/19/21 08:59 Last Admin: 11/23/21 08:23 Dose: Not Given Documented by: Atorvastatin Calcium (Atorvastatin 20 Mg Tab) 20 mg PO DAILY [facility] Stop: 12/19/21 08:59 Last Admin: 11/23/21 08:20 Dose: 20 mg Documented by: Diclofenac Sodium (Diclofenac Sod 1% Gel 100 Gm Tube) 2 gm EXT BID [facility] Stop: 12/22/21 20:59 Last Admin: 11/23/21 08:21 Dose: 2 gm Documented by: Docusate Sodium (Docusate Sodium 100 Mg Cap) 100 mg PO BID [facility] Stop: 12/19/21 08:59 Last Admin: 11/23/21 08:23 Dose: Not Given Documented by: Enoxaparin Sodium (Enoxaparin Inj 40 Mg/0.4 Ml Syr) 40 mg SQ Q24H [facility] Stop: 12/19/21 05:59 Last Admin: 11/23/21 06:04 Dose: Not Given Documented by: Furosemide (Furosemide 40 Mg Tab) 40 mg PO [facility] Stop: 12/19/21 08:59 Last Admin: 11/23/21 08:21 Dose: 40 mg Documented by: Levothyroxine Sodium (Levothyroxine Sodium 50 Mcg Tablet) 50 mcg PO DAILYBB [facility] Stop: 12/19/21 06:29 Last Admin: 11/23/21 06:04 Dose: 50 mcg Documented by: Lidocaine (Lidocaine 5% 1 Patch) 1 patch TD [facility] Stop: 12/19/21 08:59 Last Admin: 11/23/21 08:19 Dose: 1 patch Documented by: Metoprolol Succinate (Metoprolol Succ 25mg Ext Rel Tab) 12.5 mg PO [facility] Stop: 12/19/21 08:59 Last Admin: 11/23/21 08:20 Dose: 12.5 mg Documented by: Miscellaneous (Remove Lidoderm Patch) 1 ea N/A DAILY@2100 [facility] Stop: 12/19/21 20:59 Last Admin: 11/22/21 21:14 Dose: 1 ea Documented by: Miscellaneous (Remove Lidoderm Patch) 1 ea N/A DAILY@2100 [facility] Stop: 12/19/21 20:59 Last Admin: 11/22/21 21:14 Dose: 1 ea Documented by: Nitroglycerin (Nitroglycerin Sl 0.4 Mg/Tab Tab) 0.4 mg SL UD PRN PRN Reason: Chest Pain Stop: 12/19/21 05:59 Ondansetron HCl (Ondansetron Inj 2 Mg/Ml 2 Ml Vial) 4 mg IV Q6H PRN PRN Reason: Nausea Stop: 12/19/21 05:59 Last Admin: 11/22/21 16:35 Dose: 4 mg Documented by: Polyethylene Glycol (Polyethylene (Miralax) 17 Gm Pack) 17 gm PO DAILY PRN PRN Reason: Constipation Stop: 12/19/21 05:59 Spironolactone (Spironolactone 12.5 Mg Tab) 12.5 mg PO DAILY [facility] Stop: 12/19/21 08:59 Last Admin: 11/23/21 08:20 Dose: 12.5 mg Documented by:
[2021-11-24] MEDS: HYDROCODONE/ACETAMOPHEN 5/325MG TAB PO PRN ×4 (01:08→20:21)
[2021-11-24] MEDS: ENOXAPARIN INJ 40 MG/0.4 ML SYR SQ SCH (06:29)
[2021-11-24] MEDS: LEVOTHYROXINE SODIUM 50 MCG TABLET PO SCH (06:30)
[2021-11-24 07:40] LABS: BUN Creatinine Ratio 40.2 (10-20); Calcium 8.7 mg/dl (8.5-10.1); Creatinine Clr Calc Pharmacy 43.2 ml/min; Est GFR (African American) 66.4 ml/min; Est GFR (Non-African American) 57.3 ml/min; Potassium 4.4 mmol/L (3.5-5.1)
[2021-11-24] MEDS: FUROSEMIDE 40 MG TAB PO SCH (08:22)
[2021-11-24] MEDS: METOPROLOL SUCC 25MG EXT REL TAB PO SCH (08:22)
[2021-11-24] MEDS: DICLOFENAC SOD 1% GEL 100 GM TUBE EXT SCH ×2 (08:25→20:18)
[2021-11-24] MEDS: ATORVASTATIN 20 MG TAB PO SCH (08:25)
[2021-11-24] MEDS: ASPIRIN 81 MG ECTAB PO SCH (08:25)
[2021-11-24] MEDS: DOCUSATE SODIUM 100 MG CAP PO SCH ×2 (08:25→20:19)
[2021-11-24] MEDS: SPIRONOLACTONE 12.5 MG TAB PO SCH (08:26)
[2021-11-24] MEDS: LIDOCAINE 5% 1 PATCH TD SCH (08:26)
--- NOTE | 2021-11-24 14:59 | Hospitalist Progress Note ---
Date of Service November 24, 2021 Assessment & Plan (1) Ambulatory dysfunction: Plan: Generalized weakness May be secondary to COVID-19 virus infection Recently discharged from [facility] The ambulatory dysfunction is being exaggerated by back pain Continue PT/OT evaluation-recommended ongoing rehab Fall precaution COVID 19 Tested positive for COVID-19 on admission. Pt is unvaccinated CXR showed no acute cardiopulmonary disease. Upper respiratory infection Does not meet the criteria Decadron and remdesivir since pt is asymptomatic saturated well on RA Clinically stable and denies any cough and/or shortness of breath Has been saturating normally on room air Low back pain Pain has been worse for the last few days Has been getting Lidoderm patch and will add Voltaren gel on top of Tylenol and small dose of narcotic He will get PT and OT evaluation depending on that he will be placed Clinically no radiculopathic pain Will try small dose of intravenous Dilaudid before physical therapy Like to go back to [facility] following PT and OT evaluation We will decrease the frequency of pain medication Hx Atrial fibrillation Rate control Not on anticoagulant due to his non compliant continue metoprolol, and aspirin, Plavix Ischemic Cardiomyopathy Discussed with patient that he needs to be complaint with his med Continue Metoprolol, spironolactone, Lasix and Lisinopril Not a good candidate for ICD placement due to medication noncompliant and paranoid behavior Stable -no evidence of fluid overload Chronic right leg lymphedema Stable Hypothyroidism Levothyroxine 50 mg daily Paranoid schizophrenia Continue risperidone Stable DVT prophylaxis On Lovenox subq CODE STATUS Full code Disposition Consider to discharge to rehab Medically stable to be discharged Admission and Anticipated Discharge Date Admission Date: November 19, 2021 Subjective 11/22/2021 The patient was seen and examined in telemetry unit and in Covid room He complains of pain at the back and that goes down to the legs Denies any symptoms secondary to Covid and has not been requiring any oxygen to maintain saturation 11/23/2021 The patient was seen and examined in telemetry unit and in the Covid room He does not have any symptoms related to Covid Complains of more pain at the back without radiation and wanted to have more pain medications 11/24/2021 The patient was seen and examined in telemetry unit and in the Covid room He has been feeling much better but he still has back pain He does not have any respiratory symptoms Review of Systems Review of Systems: All systems reviewed and are unremarkable except as noted below Respiratory: No respiratory distress and no shortness of breath Physical Exam Physical Exam: Lying in bed with acute distress due to low back pain Constitutional: + ill appearing and + thin Eyes: PERRL, conjunctivae normal, anicteric sclerae ENMT: external ear and nose normal, oropharynx normal Neck: trachea midline, no thyromegaly Respiratory: no respiratory distress Auscultation: + diminished lung sounds; no crackles and no wheezes Cardiovascular: Rate/Rhythm: regular rate and regular rhythm; not tachycardic Heart Sounds: normal S1 and normal S2; no murmur Extremities: no edema Gastrointestinal (Abdomen): Inspection/Auscultation: abdomen not distended Percussion/Palpation: abdomen soft; abdomen nontender Musculoskeletal: No acute arthritis in any joint. Neurologic: Alert, awake and oriented. Generally weak but no focal neuro deficit Lymphatic: no cervical or axillary lymphadenopathy Results & Data Results & Data ([facility]) Vital Signs (Past 12 Hours) Vital Signs Temp Pulse Pulse Resp BP BP Pulse Ox 11/24/21 11:47 68 11/24/21 11:44 36.7 C 70 18 100/60 98 11/24/21 09:00 68 11/24/21 07:32 36.5 C 67 16 113/61 97 11/24/21 03:50 36.6 C 63 16 98/63 L 95 Laboratory Results [facility] 11/24/21 06:08 Sodium 135 L Potassium 4.4 Chloride 100 Carbon Dioxide 30 BUN 51 H Creatinine 1.27 Glucose 82 Calcium 8.7 Medications Administered Current Inpatient Medications Acetaminophen (Acetaminophen 325 Mg Tab) 650 mg PO Q4H PRN PRN Reason: Pain or Fever Stop: 12/19/21 05:59 Hydrocodone Bitart/Acetaminophen (Hydrocodone/Acetamophen 5/325mg Tab) 1 tab PO Q6H PRN PRN Reason: pain Stop: 12/03/21 05:59 Last Admin: 11/24/21 13:48 Dose: 1 tab Documented by: Aspirin (Aspirin 81 Mg Ectab) 81 mg PO QAM [facility] Stop: 12/19/21 08:59 Last Admin: 11/24/21 08:25 Dose: Not Given Documented by: Atorvastatin Calcium (Atorvastatin 20 Mg Tab) 20 mg PO DAILY [facility] Stop: 12/19/21 08:59 Last Admin: 11/24/21 08:25 Dose: Not Given Documented by: Diclofenac Sodium (Diclofenac Sod 1% Gel 100 Gm Tube) 2 gm EXT BID [facility] Stop: 12/22/21 20:59 Last Admin: 11/24/21 08:25 Dose: Not Given Documented by: Docusate Sodium (Docusate Sodium 100 Mg Cap) 100 mg PO BID [facility] Stop: 12/19/21 08:59 Last Admin: 11/24/21 08:25 Dose: Not Given Documented by: Enoxaparin Sodium (Enoxaparin Inj 40 Mg/0.4 Ml Syr) 40 mg SQ Q24H [facility] Stop: 12/19/21 05:59 Last Admin: 11/24/21 06:29 Dose: Not Given Documented by: Furosemide (Furosemide 40 Mg Tab) 40 mg PO [facility] Stop: 12/19/21 08:59 Last Admin: 11/24/21 08:22 Dose: 40 mg Documented by: Levothyroxine Sodium (Levothyroxine Sodium 50 Mcg Tablet) 50 mcg PO DAILYBB [facility] Stop: 12/19/21 06:29 Last Admin: 11/24/21 06:30 Dose: 50 mcg Documented by: Lidocaine (Lidocaine 5% 1 Patch) 1 patch TD [facility] Stop: 12/19/21 08:59 Last Admin: 11/24/21 08:26 Dose: Not Given Documented by: Metoprolol Succinate (Metoprolol Succ 25mg Ext Rel Tab) [facility] Stop: 12/19/21 08:59 Last Admin: 11/24/21 08:22 Dose: 12.5 mg Documented by: Miscellaneous (Remove Lidoderm Patch) 1 ea N/A DAILY@2100 [facility] Stop: 12/19/21 20:59 Last Admin: 11/23/21 20:25 Dose: Not Given Documented by: Miscellaneous (Remove Lidoderm Patch) 1 ea N/A DAILY@2100 [facility] Stop: 12/19/21 20:59 Last Admin: 11/23/21 20:25 Dose: Not Given Documented by: Nitroglycerin (Nitroglycerin Sl 0.4 Mg/Tab Tab) 0.4 mg SL UD PRN PRN Reason: Chest Pain Stop: 12/19/21 05:59 Ondansetron HCl (Ondansetron Inj 2 Mg/Ml 2 Ml Vial) 4 mg IV Q6H PRN PRN Reason: Nausea Stop: 12/19/21 05:59 Last Admin: 11/22/21 16:35 Dose: 4 mg Documented by: Polyethylene Glycol (Polyethylene (Miralax) 17 Gm Pack) 17 gm PO DAILY PRN PRN Reason: Constipation Stop: 12/19/21 05:59 Spironolactone (Spironolactone 12.5 Mg Tab) 12.5 mg PO DAILY [facility] Stop: 12/19/21 08:59 Last Admin: 11/24/21 08:26 Dose: 12.5 mg Documented by:
[2021-11-24] MEDS: ONDANSETRON INJ 2 MG/ML 2 ML VIAL IV PRN (16:00)
[2021-11-25] MEDS: HYDROCODONE/ACETAMOPHEN 5/325MG TAB PO PRN ×5 (00:49→23:27)
[2021-11-25] MEDS: LEVOTHYROXINE SODIUM 50 MCG TABLET PO SCH (06:10)
[2021-11-25] MEDS: ENOXAPARIN INJ 40 MG/0.4 ML SYR SQ SCH (06:11)
[2021-11-25] MEDS: ASPIRIN 81 MG ECTAB PO SCH (08:29)
[2021-11-25] MEDS: LIDOCAINE 5% 1 PATCH TD SCH (08:30)
[2021-11-25] MEDS: METOPROLOL SUCC 25MG EXT REL TAB PO SCH (08:30)
[2021-11-25] MEDS: DOCUSATE SODIUM 100 MG CAP PO SCH ×2 (08:30→20:10)
[2021-11-25] MEDS: DICLOFENAC SOD 1% GEL 100 GM TUBE EXT SCH ×2 (08:30→20:10)
[2021-11-25] MEDS: ATORVASTATIN 20 MG TAB PO SCH (08:30)
[2021-11-25] MEDS: FUROSEMIDE 40 MG TAB PO SCH (08:31)
[2021-11-25] MEDS: SPIRONOLACTONE 12.5 MG TAB PO SCH (08:31)
[2021-11-25] MEDS: ONDANSETRON INJ 2 MG/ML 2 ML VIAL IV PRN ×3 (11:18→23:27)
[2021-11-25] MEDS ORDERED: ALBUTEROL HFA 8 GM INHALER INH PRN (14:45)
--- NOTE | 2021-11-25 14:50 | Hospitalist Progress Note ---
Date of Service November 25, 2021 Assessment & Plan (1) Ambulatory dysfunction: Plan: Generalized weakness May be secondary to COVID-19 virus infection Recently discharged from [facility] The ambulatory dysfunction is being exaggerated by back pain Continue PT/OT evaluation-recommended ongoing rehab Fall precaution He is being denied from [facility] and he does not want to go to any other rehab facility He is agreeable to go home on Monday if all the arrangements are made so that he can get his supplies when he is at home May not be appropriate to go home until Monday COVID 19 Tested positive for COVID-19 on admission. Pt is unvaccinated CXR showed no acute cardiopulmonary disease. Upper respiratory infection Does not meet the criteria Decadron and remdesivir since pt is asymptomatic saturated well on RA Clinically stable and denies any cough and/or shortness of breath Has been saturating normally on room air He was given albuterol inhaler with a spacer Low back pain Pain has been worse for the last few days Has been getting Lidoderm patch and will add Voltaren gel on top of Tylenol and small dose of narcotic He will get PT and OT evaluation depending on that he will be placed Clinically no radiculopathic pain Will try small dose of intravenous Dilaudid before physical therapy Like to go back to [facility] following PT and OT evaluation We will decrease the frequency of pain medication Pain seems to be reasonably controlled Hx Atrial fibrillation Rate control Not on anticoagulant due to his non compliant continue metoprolol, and aspirin, Plavix Ischemic Cardiomyopathy Discussed with patient that he needs to be complaint with his med Continue Metoprolol, spironolactone, Lasix and Lisinopril Not a good candidate for ICD placement due to medication noncompliant and paranoid behavior Stable -no evidence of fluid overload Chronic right leg lymphedema Stable Hypothyroidism Levothyroxine 50 mg daily Paranoid schizophrenia Continue risperidone Stable DVT prophylaxis On Lovenox subq CODE STATUS Full code Disposition Consider to discharge to rehab Medically stable to be discharged Admission and Anticipated Discharge Date Admission Date: November 19, 2021 Subjective 11/22/2021 The patient was seen and examined in telemetry unit and in Covid room He complains of pain at the back and that goes down to the legs Denies any symptoms secondary to Covid and has not been requiring any oxygen to maintain saturation 11/23/2021 The patient was seen and examined in telemetry unit and in the Covid room He does not have any symptoms related to Covid Complains of more pain at the back without radiation and wanted to have more pain medications 11/24/2021 The patient was seen and examined in telemetry unit and in the Covid room He has been feeling much better but he still has back pain He does not have any respiratory symptoms 11/25/2021 The patient was seen and examined in telemetry unit and in the Covid room He has been complaining of some chest tightness without any shortness of breath and does not require any oxygen He has minimal cough and the back pain seems to be reasonably controlled Review of Systems Review of Systems: All systems reviewed and are unremarkable except as noted below Respiratory: No respiratory distress and no shortness of breath Physical Exam Physical Exam: Lying in bed with acute distress due to low back pain Constitutional: + ill appearing and + thin Eyes: PERRL, conjunctivae normal, anicteric sclerae ENMT: external ear and nose normal, oropharynx normal Neck: trachea midline, no thyromegaly Respiratory: no respiratory distress Auscultation: + diminished lung sounds; no crackles and no wheezes Cardiovascular: Rate/Rhythm: regular rate and regular rhythm; not tachycardic Heart Sounds: normal S1 and normal S2; no murmur Extremities: no edema Gastrointestinal (Abdomen): Inspection/Auscultation: abdomen not distended Percussion/Palpation: abdomen soft; abdomen nontender Musculoskeletal: No acute arthritis in any joint Neurologic: Alert, awake and oriented x3 Lymphatic: no cervical or axillary lymphadenopathy Results & Data Results & Data ([facility]) Vital Signs (Past 12 Hours) Vital Signs Temp Pulse Resp BP BP Pulse Ox 11/25/21 11:30 36.8 C 78 16 113/62 96 11/25/21 08:06 37.0 C 64 18 125/67 95 11/25/21 03:28 36.4 C L 59 L 18 110/75 99 Medications Administered Current Inpatient Medications Acetaminophen (Acetaminophen 325 Mg Tab) 650 mg PO Q4H PRN PRN Reason: Pain or Fever Stop: 12/19/21 05:59 Hydrocodone Bitart/Acetaminophen (Hydrocodone/Acetamophen 5/325mg Tab) 1 tab PO Q4H PRN PRN Reason: pain Stop: 12/04/21 20:28 Last Admin: 11/25/21 11:18 Dose: 1 tab Documented by: Albuterol (Albuterol Hfa 8 Gm Inhaler) 2 puffs INH QID PRN PRN Reason: Dyspnea Stop: 12/25/21 16:59 Aspirin (Aspirin 81 Mg Ectab) 81 mg PO [facility] Stop: 12/19/21 08:59 Last Admin: 11/25/21 08:29 Dose: Not Given Documented by: Atorvastatin Calcium (Atorvastatin 20 Mg Tab) 20 mg PO DAILY [facility] Stop: 12/19/21 08:59 Last Admin: 11/25/21 08:30 Dose: Not Given Documented by: Diclofenac Sodium (Diclofenac Sod 1% Gel 100 Gm Tube) 2 gm EXT BID [facility] Stop: 12/22/21 20:59 Last Admin: 11/25/21 08:30 Dose: Not Given Documented by: Docusate Sodium (Docusate Sodium 100 Mg Cap) 100 mg PO BID [facility] Stop: 12/19/21 08:59 Last Admin: 11/25/21 08:30 Dose: Not Given Documented by: Enoxaparin Sodium (Enoxaparin Inj 40 Mg/0.4 Ml Syr) 40 mg SQ Q24H [facility] Stop: 12/19/21 05:59 Last Admin: 11/25/21 06:11 Dose: Not Given Documented by: Furosemide (Furosemide 40 Mg Tab) 40 mg PO [facility] Stop: 12/19/21 08:59 Last Admin: 11/25/21 08:31 Dose: 40 mg Documented by: Levothyroxine Sodium (Levothyroxine Sodium 50 Mcg Tablet) 50 mcg PO DAILYBB [facility] Stop: 12/19/21 06:29 Last Admin: 11/25/21 06:10 Dose: 50 mcg Documented by: Lidocaine (Lidocaine 5% 1 Patch) 1 patch TD [facility] Stop: 12/19/21 08:59 Last Admin: 11/25/21 08:30 Dose: Not Given Documented by: Metoprolol Succinate (Metoprolol Succ 25mg Ext Rel Tab) 12.5 mg PO [facility] Stop: 12/19/21 08:59 Last Admin: 11/25/21 08:30 Dose: Not Given Documented by: Miscellaneous (Remove Lidoderm Patch) 1 ea N/A DAILY@2100 [facility] Stop: 12/19/21 20:59 Last Admin: 11/24/21 20:20 Dose: Not Given Documented by: Miscellaneous (Remove Lidoderm Patch) 1 ea N/A DAILY@2100 [facility] Stop: 12/19/21 20:59 Last Admin: 11/24/21 20:20 Dose: Not Given Documented by: Nitroglycerin (Nitroglycerin Sl 0.4 Mg/Tab Tab) 0.4 mg SL UD PRN PRN Reason: Chest Pain Stop: 12/19/21 05:59 Ondansetron HCl (Ondansetron Inj 2 Mg/Ml 2 Ml Vial) 4 mg IV Q6H PRN PRN Reason: Nausea Stop: 12/19/21 05:59 Last Admin: 11/25/21 11:18 Dose: 4 mg Documented by: Polyethylene Glycol (Polyethylene (Miralax) 17 Gm Pack) 17 gm PO DAILY PRN PRN Reason: Constipation Stop: 12/19/21 05:59 Spironolactone (Spironolactone 12.5 Mg Tab) 12.5 mg PO DAILY [facility] Stop: 12/19/21 08:59 Last Admin: 11/25/21 08:31 Dose: 12.5 mg Documented by:
[2021-11-26] MEDS: ENOXAPARIN INJ 40 MG/0.4 ML SYR SQ SCH (06:09)
[2021-11-26] MEDS: LEVOTHYROXINE SODIUM 50 MCG TABLET PO SCH (06:10)
[2021-11-26] MEDS: HYDROCODONE/ACETAMOPHEN 5/325MG TAB PO PRN ×4 (06:13→20:30)
[2021-11-26] MEDS: DICLOFENAC SOD 1% GEL 100 GM TUBE EXT SCH ×2 (09:30→20:33)
[2021-11-26] MEDS: LIDOCAINE 5% 1 PATCH TD SCH (09:30)
[2021-11-26] MEDS: DOCUSATE SODIUM 100 MG CAP PO SCH ×2 (09:30→20:32)
[2021-11-26] MEDS: METOPROLOL SUCC 25MG EXT REL TAB PO SCH (09:30)
[2021-11-26] MEDS: ATORVASTATIN 20 MG TAB PO SCH (09:30)
[2021-11-26] MEDS: SPIRONOLACTONE 12.5 MG TAB PO SCH (09:32)
[2021-11-26] MEDS: FUROSEMIDE 40 MG TAB PO SCH (09:32)
[2021-11-26] MEDS: ASPIRIN 81 MG ECTAB PO SCH (09:32)
[2021-11-26] MEDS: ONDANSETRON INJ 2 MG/ML 2 ML VIAL IV PRN (12:06)
--- NOTE | 2021-11-26 15:29 | Hospitalist Progress Note ---
Date of Service November 26, 2021 Assessment & Plan (1) Ambulatory dysfunction: Plan: Generalized weakness May be secondary to COVID-19 virus infection Recently discharged from [facility] The ambulatory dysfunction is being exaggerated by back pain Continue PT/OT evaluation-recommended ongoing rehab Fall precaution He is being denied from [facility] and he does not want to go to any other rehab facility He is agreeable to go home on Monday if all the arrangements are made so that he can get his supplies when he is at home May not be appropriate to go home until Monday-remains medically stable COVID 19 Tested positive for COVID-19 on admission. Pt is unvaccinated CXR showed no acute cardiopulmonary disease. Upper respiratory infection Does not meet the criteria Decadron and remdesivir since pt is asymptomatic saturated well on RA Clinically stable and denies any cough and/or shortness of breath Has been saturating normally on room air He was given albuterol inhaler with a spacer Low back pain Pain has been worse for the last few days Has been getting Lidoderm patch and will add Voltaren gel on top of Tylenol and small dose of narcotic He will get PT and OT evaluation depending on that he will be placed Clinically no radiculopathic pain Will try small dose of intravenous Dilaudid before physical therapy Like to go back to [facility] following PT and OT evaluation We will decrease the frequency of pain medication Pain seems to be reasonably controlled-advised to participate in physical therapy Hx Atrial fibrillation Rate control Not on anticoagulant due to his non compliant continue metoprolol, and aspirin, Plavix Ischemic Cardiomyopathy Discussed with patient that he needs to be complaint with his med Continue Metoprolol, spironolactone, Lasix and Lisinopril Not a good candidate for ICD placement due to medication noncompliant and paranoid behavior Stable -no evidence of fluid overload Chronic right leg lymphedema Stable Hypothyroidism Levothyroxine 50 mg daily Paranoid schizophrenia Continue risperidone Stable DVT prophylaxis On Lovenox subq CODE STATUS Full code Disposition Consider to discharge to rehab Medically stable to be discharged Admission and Anticipated Discharge Date Admission Date: November 19, 2021 Subjective 11/22/2021 The patient was seen and examined in telemetry unit and in Covid room He complains of pain at the back and that goes down to the legs Denies any symptoms secondary to Covid and has not been requiring any oxygen to maintain saturation 11/23/2021 The patient was seen and examined in telemetry unit and in the Covid room He does not have any symptoms related to Covid Complains of more pain at the back without radiation and wanted to have more pain medications 11/24/2021 The patient was seen and examined in telemetry unit and in the Covid room He has been feeling much better but he still has back pain He does not have any respiratory symptoms 11/25/2021 The patient was seen and examined in telemetry unit and in the Covid room He has been complaining of some chest tightness without any shortness of breath and does not require any oxygen He has minimal cough and the back pain seems to be reasonably controlled 11/26/2021 The patient was seen and examined in Covid room He has been stable and denies any respiratory symptoms Still has back pain and the pain is worse with movement Has been getting PT and OT Review of Systems Review of Systems: All systems reviewed and are unremarkable except as noted below Respiratory: No respiratory distress and no shortness of breath Physical Exam Physical Exam: Lying in bed with acute distress due to low back pain Constitutional: + ill appearing and + thin Eyes: PERRL, conjunctivae normal, anicteric sclerae ENMT: external ear and nose normal, oropharynx normal Neck: trachea midline, no thyromegaly Respiratory: no respiratory distress Auscultation: + diminished lung sounds; no crackles and no wheezes Cardiovascular: Rate/Rhythm: regular rate and regular rhythm; not tachycardic Heart Sounds: normal S1 and normal S2; no murmur Extremities: no edema Gastrointestinal (Abdomen): Inspection/Auscultation: abdomen not distended Percussion/Palpation: abdomen soft; abdomen nontender Musculoskeletal: Back pain with localized tenderness lower back without radiation Neurologic: Alert, awake and oriented x3. Generally weak Lymphatic: no cervical or axillary lymphadenopathy Results & Data Results & Data ([facility]) Vital Signs (Past 12 Hours) Vital Signs Temp Pulse Resp BP Pulse Ox 11/26/21 15:13 36.6 C 71 18 124/79 96 11/26/21 07:32 36.8 C 64 18 100/67 94 Medications Administered Current Inpatient Medications Acetaminophen (Acetaminophen 325 Mg Tab) 650 mg PO Q4H PRN PRN Reason: Pain or Fever Stop: 12/19/21 05:59 Hydrocodone Bitart/Acetaminophen (Hydrocodone/Acetamophen 5/325mg Tab) 1 tab PO Q4H PRN PRN Reason: pain Stop: 12/04/21 20:28 Last Admin: 11/26/21 12:06 Dose: 1 tab Documented by: Albuterol (Albuterol Hfa 8 Gm Inhaler) 2 puffs INH QID PRN PRN Reason: Dyspnea Stop: 12/25/21 16:59 Aspirin (Aspirin 81 Mg Ectab) [address] [facility] Stop: 12/19/21 08:59 Last Admin: 11/26/21 09:32 Dose: Not Given Documented by: Atorvastatin Calcium (Atorvastatin 20 Mg Tab) 20 mg PO DAILY [facility] Stop: 12/19/21 08:59 Last Admin: 11/26/21 09:30 Dose: 20 mg Documented by: Diclofenac Sodium (Diclofenac Sod 1% Gel 100 Gm Tube) 2 gm EXT BID [facility] Stop: 12/22/21 20:59 Last Admin: 11/26/21 09:30 Dose: Not Given Documented by: Docusate Sodium (Docusate Sodium 100 Mg Cap) 100 mg PO BID [facility] Stop: 12/19/21 08:59 Last Admin: 11/26/21 09:30 Dose: Not Given Documented by: Enoxaparin Sodium (Enoxaparin Inj 40 Mg/0.4 Ml Syr) 40 mg SQ Q24H [facility] Stop: 12/19/21 05:59 Last Admin: 11/26/21 06:09 Dose: Not Given Documented by: Furosemide (Furosemide 40 Mg Tab) 40 mg PO QAM [facility] Stop: 12/19/21 08:59 Last Admin: 11/26/21 09:32 Dose: Not Given Documented by: Levothyroxine Sodium (Levothyroxine Sodium 50 Mcg Tablet) 50 mcg PO [facility] Stop: 12/19/21 06:29 Last Admin: 11/26/21 06:10 Dose: 50 mcg Documented by: Lidocaine (Lidocaine 5% 1 Patch) [address] [facility] Stop: 12/19/21 08:59 Last Admin: 11/26/21 09:30 Dose: Not Given Documented by: Metoprolol Succinate (Metoprolol Succ 25mg Ext Rel Tab) 12.[address] [facility] Stop: 12/19/21 08:59 Last Admin: 11/26/21 09:30 Dose: Not Given Documented by: Miscellaneous (Remove Lidoderm Patch) 1 ea N/A DAILY@2100 [facility] Stop: 12/19/21 20:59 Last Admin: 11/25/21 20:08 Dose: Not Given Documented by: Miscellaneous (Remove Lidoderm Patch) 1 ea N/A DAILY@2100 [facility] Stop: 12/19/21 20:59 Last Admin: 11/25/21 20:08 Dose: Not Given Documented by: Nitroglycerin (Nitroglycerin Sl 0.4 Mg/Tab Tab) 0.4 mg SL UD PRN PRN Reason: Chest Pain Stop: 12/19/21 05:59 Ondansetron HCl (Ondansetron Inj 2 Mg/Ml 2 Ml Vial) 4 mg IV Q6H PRN PRN Reason: Nausea Stop: 12/19/21 05:59 Last Admin: 11/26/21 12:06 Dose: 4 mg Documented by: Polyethylene Glycol (Polyethylene (Miralax) 17 Gm Pack) 17 gm PO DAILY PRN PRN Reason: Constipation Stop: 12/19/21 05:59 Spironolactone (Spironolactone 12.5 Mg Tab) 12.5 mg PO DAILY [facility] Stop: 12/19/21 08:59 Last Admin: 11/26/21 09:32 Dose: Not Given Documented by:
--- NOTE | 2021-11-26 16:12 | Electrocardiogram Report ---
Test Reason : Blood Pressure : / mmHG Vent. Rate : 068 BPM Atrial Rate : 068 BPM P-R Int : 152 ms QRS Dur : 088 ms QT Int : 450 ms P-R-T Axes : 000 057 052 degrees QTc Int : 478 ms Poor data quality, interpretation may be adversely affected Sinus rhythm with occasional Premature ventricular complexes Minimal voltage criteria for LVH, may be normal variant Poor R wave progression, consider anterior ME vs. lead placement vs. LVH Abnormal ECG When compared with ECG of 18-NOV-2021 22:19, Sinus rhythm has replaced Atrial fibrillation Nonspecific T wave abnormality no longer evident in Inferior leads T wave inversion no longer evident in Lateral leads Confirmed by Darian Garcia ([id number]) on 11/26/2021 4:11:47 PM Referred By: REFERRED SELF Confirmed By:Darian Garcia
[2021-11-27] MEDS: HYDROCODONE/ACETAMOPHEN 5/325MG TAB PO PRN ×5 (00:48→21:09)
[2021-11-27] MEDS: ONDANSETRON INJ 2 MG/ML 2 ML VIAL IV PRN ×2 (00:54→11:29)
[2021-11-27] MEDS: ENOXAPARIN INJ 40 MG/0.4 ML SYR SQ SCH (06:28)
[2021-11-27] MEDS: LEVOTHYROXINE SODIUM 50 MCG TABLET PO SCH (06:29)
[2021-11-27] MEDS: SPIRONOLACTONE 12.5 MG TAB PO SCH (08:10)
[2021-11-27] MEDS: FUROSEMIDE 40 MG TAB PO SCH (08:10)
[2021-11-27] MEDS: LIDOCAINE 5% 1 PATCH TD SCH (08:10)
[2021-11-27] MEDS: ASPIRIN 81 MG ECTAB PO SCH (08:11)
[2021-11-27] MEDS: DOCUSATE SODIUM 100 MG CAP PO SCH ×2 (08:11→21:10)
[2021-11-27] MEDS: ATORVASTATIN 20 MG TAB PO SCH (08:11)
[2021-11-27] MEDS: METOPROLOL SUCC 25MG EXT REL TAB PO SCH (08:11)
[2021-11-27] MEDS: DICLOFENAC SOD 1% GEL 100 GM TUBE EXT SCH ×2 (08:11→21:10)
--- NOTE | 2021-11-27 13:02 | Hospitalist Progress Note ---
Date of Service November 27, 2021 Assessment & Plan (1) Ambulatory dysfunction: Plan: Generalized weakness May be secondary to COVID-19 virus infection Recently discharged from [facility] The ambulatory dysfunction is being exaggerated by back pain Continue PT/OT evaluation-recommended ongoing rehab Fall precaution He is being denied from [facility] and he does not want to go to any other rehab facility He is agreeable to go home on Monday if all the arrangements are made so that he can get his supplies when he is at home May not be appropriate to go home until Monday-remains medically stable Remains stable without any significant complaints COVID 19 Tested positive for COVID-19 on admission. Pt is unvaccinated CXR showed no acute cardiopulmonary disease. Upper respiratory infection Does not meet the criteria Decadron and remdesivir since pt is asymptomatic saturated well on RA Clinically stable and denies any cough and/or shortness of breath Has been saturating normally on room air He was given albuterol inhaler with a spacer No shortness of breath at rest and no cough Low back pain Pain has been worse for the last few days Has been getting Lidoderm patch and will add Voltaren gel on top of Tylenol and small dose of narcotic He will get PT and OT evaluation depending on that he will be placed Clinically no radiculopathic pain Will try small dose of intravenous Dilaudid before physical therapy Like to go back to [facility] following PT and OT evaluation We will decrease the frequency of pain medication Pain seems to be reasonably controlled-advised to participate in physical therapy Pain is reasonably controlled Hx Atrial fibrillation Rate control Not on anticoagulant due to his non compliant continue metoprolol, and aspirin, Plavix Ischemic Cardiomyopathy Discussed with patient that he needs to be complaint with his med Continue Metoprolol, spironolactone, Lasix and Lisinopril Not a good candidate for ICD placement due to medication noncompliant and paranoid behavior Stable -no evidence of fluid overload Chronic right leg lymphedema Stable Hypothyroidism Levothyroxine 50 mg daily Paranoid schizophrenia Continue risperidone Stable DVT prophylaxis On Lovenox subq CODE STATUS Full code Disposition Consider to discharge to rehab Medically stable to be discharged Admission and Anticipated Discharge Date Admission Date: November 19, 2021 Subjective 11/22/2021 The patient was seen and examined in telemetry unit and in Covid room He complains of pain at the back and that goes down to the legs Denies any symptoms secondary to Covid and has not been requiring any oxygen to maintain saturation 11/23/2021 The patient was seen and examined in telemetry unit and in the Covid room He does not have any symptoms related to Covid Complains of more pain at the back without radiation and wanted to have more pain medications 11/24/2021 The patient was seen and examined in telemetry unit and in the Covid room He has been feeling much better but he still has back pain He does not have any respiratory symptoms 11/25/2021 The patient was seen and examined in telemetry unit and in the Covid room He has been complaining of some chest tightness without any shortness of breath and does not require any oxygen He has minimal cough and the back pain seems to be reasonably controlled 11/26/2021 The patient was seen and examined in Covid room He has been stable and denies any respiratory symptoms Still has back pain and the pain is worse with movement Has been getting PT and OT 11/27/2021 The patient was seen and examined in Covid room He remained stable and awaiting to go home on Monday Still complains to have some back pain with radiation to right thigh Review of Systems Review of Systems: All systems reviewed and are unremarkable except as noted below Respiratory: No respiratory distress and no shortness of breath Physical Exam Physical Exam: Lying in bed with acute distress due to low back pain Constitutional: + ill appearing and + thin Eyes: PERRL, conjunctivae normal, anicteric sclerae ENMT: external ear and nose normal, oropharynx normal Neck: trachea midline, no thyromegaly Respiratory: no respiratory distress Auscultation: + diminished lung sounds; no crackles and no wheezes Cardiovascular: Rate/Rhythm: regular rate and regular rhythm; not tachycardic Heart Sounds: normal S1 and normal S2; no murmur Extremities: no edema Gastrointestinal (Abdomen): Inspection/Auscultation: abdomen not distended Percussion/Palpation: abdomen soft; abdomen nontender Musculoskeletal: No acute arthritis in any joint Neurologic: Alert, awake and oriented x3, no focal sensory or no motor deficit appreciated Lymphatic: no cervical or axillary lymphadenopathy Results & Data Results & Data ([facility]) Vital Signs (Past 12 Hours) Vital Signs Temp Pulse Resp BP Pulse Ox 11/27/21 07:18 36.9 C 66 18 105/67 95 Medications Administered Current Inpatient Medications Acetaminophen (Acetaminophen 325 Mg Tab) 650 mg PO Q4H PRN PRN Reason: Pain or Fever Stop: 12/19/21 05:59 Hydrocodone Bitart/Acetaminophen (Hydrocodone/Acetamophen 5/325mg Tab) 1 tab PO Q4H PRN PRN Reason: pain Stop: 12/04/21 20:28 Last Admin: 11/27/21 11:29 Dose: 1 tab Documented by: Albuterol (Albuterol Hfa 8 Gm Inhaler) 2 puffs INH QID PRN PRN Reason: Dyspnea Stop: 12/25/21 16:59 Aspirin (Aspirin 81 Mg Ectab) 81 mg PO [facility] Stop: 12/19/21 08:59 Last Admin: 11/27/21 08:11 Dose: Not Given Documented by: Atorvastatin Calcium (Atorvastatin 20 Mg Tab) 20 mg PO DAILY [facility] Stop: 12/19/21 08:59 Last Admin: 11/27/21 08:11 Dose: Not Given Documented by: Diclofenac Sodium (Diclofenac Sod 1% Gel 100 Gm Tube) 2 gm EXT BID [facility] Stop: 12/22/21 20:59 Last Admin: 11/27/21 08:11 Dose: Not Given Documented by: Docusate Sodium (Docusate Sodium 100 Mg Cap) 100 mg PO BID [facility] Stop: 12/19/21 08:59 Last Admin: 11/27/21 08:11 Dose: Not Given Documented by: Enoxaparin Sodium (Enoxaparin Inj 40 Mg/0.4 Ml Syr) 40 mg SQ Q24H [facility] Stop: 12/19/21 05:59 Last Admin: 11/27/21 06:28 Dose: Not Given Documented by: Furosemide (Furosemide 40 Mg Tab) 40 mg PO [facility] Stop: 12/19/21 08:59 Last Admin: 11/27/21 08:10 Dose: 40 mg Documented by: Levothyroxine Sodium (Levothyroxine Sodium 50 Mcg Tablet) 50 mcg PO DAILYBB [facility] Stop: 12/19/21 06:29 Last Admin: 11/27/21 06:29 Dose: 50 mcg Documented by: Lidocaine (Lidocaine 5% 1 Patch) 1 patch TD [facility] Stop: 12/19/21 08:59 Last Admin: 11/27/21 08:10 Dose: 1 patch Documented by: Metoprolol Succinate (Metoprolol Succ 25mg Ext Rel Tab) 12.5 mg PO QAM [facility] Stop: 12/19/21 08:59 Last Admin: 11/27/21 08:11 Dose: Not Given Documented by: Miscellaneous (Remove Lidoderm Patch) 1 ea N/A DAILY@2100 [facility] Stop: 12/19/21 20:59 Last Admin: 11/26/21 20:34 Dose: Not Given Documented by: Miscellaneous (Remove Lidoderm Patch) 1 ea N/A DAILY@2100 [facility] Stop: 12/19/21 20:59 Last Admin: 11/26/21 20:34 Dose: Not Given Documented by: Nitroglycerin (Nitroglycerin Sl 0.4 Mg/Tab Tab) 0.4 mg SL UD PRN PRN Reason: Chest Pain Stop: 12/19/21 05:59 Ondansetron HCl (Ondansetron Inj 2 Mg/Ml 2 Ml Vial) 4 mg IV Q6H PRN PRN Reason: Nausea Stop: 12/19/21 05:59 Last Admin: 11/27/21 11:29 Dose: 4 mg Documented by: Polyethylene Glycol (Polyethylene (Miralax) 17 Gm Pack) 17 gm PO DAILY PRN PRN Reason: Constipation Stop: 12/19/21 05:59 Spironolactone (Spironolactone 12.5 Mg Tab) 12.5 mg PO DAILY [facility] Stop: 12/19/21 08:59 Last Admin: 11/27/21 08:10 Dose: 12.5 mg Documented by:
[2021-11-28] MEDS: HYDROCODONE/ACETAMOPHEN 5/325MG TAB PO PRN ×5 (01:14→20:12)
[2021-11-28] MEDS: ENOXAPARIN INJ 40 MG/0.4 ML SYR SQ SCH (06:35)
[2021-11-28] MEDS: LEVOTHYROXINE SODIUM 50 MCG TABLET PO SCH (06:37)
[2021-11-28] MEDS: ATORVASTATIN 20 MG TAB PO SCH (08:27)
[2021-11-28] MEDS: METOPROLOL SUCC 25MG EXT REL TAB PO SCH (08:28)
[2021-11-28] MEDS: DICLOFENAC SOD 1% GEL 100 GM TUBE EXT SCH ×2 (08:28→20:02)
[2021-11-28] MEDS: DOCUSATE SODIUM 100 MG CAP PO SCH ×2 (08:28→20:02)
[2021-11-28] MEDS: FUROSEMIDE 40 MG TAB PO SCH (08:28)
[2021-11-28] MEDS: LIDOCAINE 5% 1 PATCH TD SCH (08:28)
[2021-11-28] MEDS: ASPIRIN 81 MG ECTAB PO SCH (08:28)
[2021-11-28] MEDS: SPIRONOLACTONE 12.5 MG TAB PO SCH (08:28)
[2021-11-28 08:37] LABS: Eosinophils # (auto) 0.03 K/uL (0-0.5); Eosinophils % (auto) 0.5 %; Hematocrit (blood only) 37.6 % (42-52); Hemoglobin 11.8 g/dL (14.0-18.0); Immature Granulocytes # (auto) 0.02 K/uL (0.00-0.02); Immature Granulocytes % (auto) 0.3 %; Lymphocytes # (auto) 0.54 K/uL (1.2-3.4); Lymphocytes % (auto) 8.2 %; Mean Corpuscular Hemoglobin 26.9 pg (25-34); Mean Corpuscular Hgb Conc 31.4 g/dL (32-36); Mean Corpuscular Volume 85.8 fL (80-100); Mean Platelet Volume 9.7 fL (7.4-10.4); Monocytes # (auto) 0.51 K/uL (0.11-0.59); Monocytes % (auto) 7.7 %; Neutrophils # (auto) 5.49 K/uL (1.4-6.5); Neutrophils % (auto) 83.3 %; Platelet Count 128 K/uL (130-400); RDW Coefficient of Variation 16.9 % (11.5-14.5); RDW Standard Deviation 53.6 fL (36.4-46.3); Red Blood Count 4.38 M/uL (4.7-6.1); White Blood Count 6.59 K/uL (4.8-10.8)
[2021-11-28 08:57] LABS: BUN Creatinine Ratio 30.1 (10-20); Calcium 9.1 mg/dl (8.5-10.1); Creatinine Clr Calc Pharmacy 38.9 ml/min; Est GFR (African American) 66.4 ml/min; Est GFR (Non-African American) 57.3 ml/min; Potassium 4.6 mmol/L (3.5-5.1)
--- NOTE | 2021-11-28 13:54 | Hospitalist Progress Note ---
Date of Service November 28, 2021 Assessment & Plan (1) Ambulatory dysfunction: Plan: Generalized weakness May be secondary to COVID-19 virus infection Recently discharged from [facility] The ambulatory dysfunction is being exaggerated by back pain Continue PT/OT evaluation-recommended ongoing rehab Fall precaution He is being denied from [facility] and he does not want to go to any other rehab facility He is agreeable to go home on Monday if all the arrangements are made so that he can get his supplies when he is at home May not be appropriate to go home until Monday-remains medically stable Remains stable without any significant complaints He will be discharged home tomorrow COVID 19 Tested positive for COVID-19 on admission. Pt is unvaccinated CXR showed no acute cardiopulmonary disease. Upper respiratory infection Does not meet the criteria Decadron and remdesivir since pt is asymptomatic saturated well on RA Clinically stable and denies any cough and/or shortness of breath Has been saturating normally on room air He was given albuterol inhaler with a spacer No shortness of breath at rest and no cough All office labs remain unremarkable and he does not have any Covid 19 virus infection symptoms Low back pain Pain has been worse for the last few days Has been getting Lidoderm patch and will add Voltaren gel on top of Tylenol and small dose of narcotic He will get PT and OT evaluation depending on that he will be placed Clinically no radiculopathic pain Will try small dose of intravenous Dilaudid before physical therapy Like to go back to [facility] following PT and OT evaluation We will decrease the frequency of pain medication Pain seems to be reasonably controlled-advised to participate in physical therapy Pain is reasonably controlled Hx Atrial fibrillation Rate control Not on anticoagulant due to his non compliant continue metoprolol, and aspirin, Plavix Ischemic Cardiomyopathy Discussed with patient that he needs to be complaint with his med Continue Metoprolol, spironolactone, Lasix and Lisinopril Not a good candidate for ICD placement due to medication noncompliant and paranoid behavior Stable -no evidence of fluid overload Chronic right leg lymphedema Stable Hypothyroidism Levothyroxine 50 mg daily Paranoid schizophrenia Continue risperidone Stable DVT prophylaxis On Lovenox subq CODE STATUS Full code Disposition Consider to discharge to rehab Medically stable to be discharged Admission and Anticipated Discharge Date Admission Date: November 19, 2021 Subjective 11/22/2021 The patient was seen and examined in telemetry unit and in Covid room He complains of pain at the back and that goes down to the legs Denies any symptoms secondary to Covid and has not been requiring any oxygen to maintain saturation 11/23/2021 The patient was seen and examined in telemetry unit and in the Covid room He does not have any symptoms related to Covid Complains of more pain at the back without radiation and wanted to have more pain medications 11/24/2021 The patient was seen and examined in telemetry unit and in the Covid room He has been feeling much better but he still has back pain He does not have any respiratory symptoms 11/25/2021 The patient was seen and examined in telemetry unit and in the Covid room He has been complaining of some chest tightness without any shortness of breath and does not require any oxygen He has minimal cough and the back pain seems to be reasonably controlled 11/26/2021 The patient was seen and examined in Covid room He has been stable and denies any respiratory symptoms Still has back pain and the pain is worse with movement Has been getting PT and OT 11/27/2021 The patient was seen and examined in Covid room He remained stable and awaiting to go home on Monday Still complains to have some back pain with radiation to right thigh 11/28/2021 The patient was seen and examined in Covid room He has been feeling much better with minimal pain in the right lower extremity No symptoms secondary to Covid Review of Systems Review of Systems: All systems reviewed and are unremarkable except as noted below Respiratory: No respiratory distress and no shortness of breath Physical Exam Physical Exam: Lying in bed with acute distress due to low back pain Constitutional: + ill appearing and + thin Eyes: PERRL, conjunctivae normal, anicteric sclerae ENMT: external ear and nose normal, oropharynx normal Neck: trachea midline, no thyromegaly Respiratory: no respiratory distress Auscultation: + diminished lung sounds; no crackles and no wheezes Cardiovascular: Rate/Rhythm: regular rate and regular rhythm; not tachycardic Heart Sounds: normal S1 and normal S2; no murmur Extremities: no edema Gastrointestinal (Abdomen): Inspection/Auscultation: abdomen not distended Percussion/Palpation: abdomen soft; abdomen nontender Musculoskeletal: No acute arthritis in any joint Neurologic: Alert, awake and oriented x3. No focal sensory no motor deficit appreciated Lymphatic: no cervical or axillary lymphadenopathy Results & Data Results & Data ([facility]) Vital Signs (Past 12 Hours) Vital Signs Temp Pulse Resp BP Pulse Ox 11/28/21 07:43 36.5 C 70 20 118/70 96 Laboratory Results Short CBC 11/28/21 Range/Units 08:12 WBC 6.59 (4.8-10.8) K/uL Hgb 11.8 L (14.0-18.0) g/dL Hct 37.6 L (42-52) % Plt Count 128 L (130-400) K/uL BMP 11/28/21 08:12 Sodium 133 L Potassium 4.6 Chloride 100 Carbon Dioxide 28 BUN 38 H Creatinine 1.27 Glucose 91 Calcium 9.1 Medications Administered Current Inpatient Medications Acetaminophen (Acetaminophen 325 Mg Tab) 650 mg PO Q4H PRN PRN Reason: Pain or Fever Stop: 12/19/21 05:59 Hydrocodone Bitart/Acetaminophen (Hydrocodone/Acetamophen 5/325mg Tab) 1 tab PO Q4H PRN PRN Reason: pain Stop: 12/04/21 20:28 Last Admin: 11/28/21 10:36 Dose: 1 tab Documented by: Albuterol (Albuterol Hfa 8 Gm Inhaler) 2 puffs INH QID PRN PRN Reason: Dyspnea Stop: 12/25/21 16:59 Aspirin (Aspirin 81 Mg Ectab) 81 mg PO QAM [facility] Stop: 12/19/21 08:59 Last Admin: 11/28/21 08:28 Dose: Not Given Documented by: Atorvastatin Calcium (Atorvastatin 20 Mg Tab) 20 mg PO DAILY [facility] Stop: 12/19/21 08:59 Last Admin: 11/28/21 08:27 Dose: 20 mg Documented by: Diclofenac Sodium (Diclofenac Sod 1% Gel 100 Gm Tube) 2 gm EXT BID [facility] Stop: 12/22/21 20:59 Last Admin: 11/28/21 08:28 Dose: Not Given Documented by: Docusate Sodium (Docusate Sodium 100 Mg Cap) 100 mg PO BID [facility] Stop: 12/19/21 08:59 Last Admin: 11/28/21 08:28 Dose: Not Given Documented by: Enoxaparin Sodium (Enoxaparin Inj 40 Mg/0.4 Ml Syr) 40 mg SQ Q24H [facility] Stop: 12/19/21 05:59 Last Admin: 11/28/21 06:35 Dose: Not Given Documented by: Furosemide (Furosemide 40 Mg Tab) 40 mg PO [facility] Stop: 12/19/21 08:59 Last Admin: 11/28/21 08:28 Dose: Not Given Documented by: Levothyroxine Sodium (Levothyroxine Sodium 50 Mcg Tablet) 50 mcg PO DAILYBB [facility] Stop: 12/19/21 06:29 Last Admin: 11/28/21 06:37 Dose: 50 mcg Documented by: Lidocaine (Lidocaine 5% 1 Patch) [facility] Stop: 12/19/21 08:59 Last Admin: 11/28/21 08:28 Dose: Not Given Documented by: Metoprolol Succinate (Metoprolol Succ 25mg Ext Rel Tab) 12.5 mg PO [facility] Stop: 12/19/21 08:59 Last Admin: 11/28/21 08:28 Dose: Not Given Documented by: Miscellaneous (Remove Lidoderm Patch) 1 ea N/A DAILY@2100 [facility] Stop: 12/19/21 20:59 Last Admin: 11/27/21 21:10 Dose: 1 ea Documented by: Miscellaneous (Remove Lidoderm Patch) 1 ea N/A DAILY@2100 [facility] Stop: 12/19/21 20:59 Last Admin: 11/27/21 21:11 Dose: 1 ea Documented by: Nitroglycerin (Nitroglycerin Sl 0.4 Mg/Tab Tab) 0.4 mg SL UD PRN PRN Reason: Chest Pain Stop: 12/19/21 05:59 Ondansetron HCl (Ondansetron Inj 2 Mg/Ml 2 Ml Vial) 4 mg IV Q6H PRN PRN Reason: Nausea Stop: 12/19/21 05:59 Last Admin: 11/27/21 11:29 Dose: 4 mg Documented by: Polyethylene Glycol (Polyethylene (Miralax) 17 Gm Pack) 17 gm PO DAILY PRN PRN Reason: Constipation Stop: 12/19/21 05:59 Spironolactone (Spironolactone 12.5 Mg Tab) 12.5 mg PO DAILY [facility] Stop: 12/19/21 08:59 Last Admin: 11/28/21 08:28 Dose: Not Given Documented by:
[2021-11-29] MEDS: HYDROCODONE/ACETAMOPHEN 5/325MG TAB PO PRN ×2 (00:33→09:26)
[2021-11-29] MEDS: ENOXAPARIN INJ 40 MG/0.4 ML SYR SQ SCH (06:08)
[2021-11-29] MEDS: LEVOTHYROXINE SODIUM 50 MCG TABLET PO SCH (06:44)
[2021-11-29] MEDS: ATORVASTATIN 20 MG TAB PO SCH (09:20)
[2021-11-29] MEDS: ASPIRIN 81 MG ECTAB PO SCH (09:20)
[2021-11-29] MEDS: LIDOCAINE 5% 1 PATCH TD SCH (09:21)
[2021-11-29] MEDS: FUROSEMIDE 40 MG TAB PO SCH (09:21)
[2021-11-29] MEDS: DOCUSATE SODIUM 100 MG CAP PO SCH (09:21)
[2021-11-29] MEDS: DICLOFENAC SOD 1% GEL 100 GM TUBE EXT SCH (09:22)
[2021-11-29] MEDS: METOPROLOL SUCC 25MG EXT REL TAB PO SCH (09:22)
[2021-11-29] MEDS: SPIRONOLACTONE 12.5 MG TAB PO SCH (09:23)
--- NOTE | 2021-11-29 12:37 | Hospitalist Progress Note ---
Date of Service November 29, 2021 Assessment & Plan (1) Ambulatory dysfunction: Plan: Generalized weakness May be secondary to COVID-19 virus infection Recently discharged from [facility] The ambulatory dysfunction is being exaggerated by back pain Continue PT/OT evaluation-recommended ongoing rehab Fall precaution He is being denied from [facility] and he does not want to go to any other rehab facility He is agreeable to go home on Monday if all the arrangements are made so that he can get his supplies when he is at home May not be appropriate to go home until Monday-remains medically stable Remains stable without any significant complaints Denies any significant symptoms except minimal back pain COVID 19 Tested positive for COVID-19 on admission. Pt is unvaccinated CXR showed no acute cardiopulmonary disease. Upper respiratory infection Does not meet the criteria Decadron and remdesivir since pt is asymptomatic saturated well on RA Clinically stable and denies any cough and/or shortness of breath Has been saturating normally on room air He was given albuterol inhaler with a spacer No shortness of breath at rest and no cough All office labs remain unremarkable and he does not have any Covid 19 virus infection symptoms Does not have any symptoms secondary to COVID-19 virus infection Low back pain Pain has been worse for the last few days Has been getting Lidoderm patch and will add Voltaren gel on top of Tylenol and small dose of narcotic He will get PT and OT evaluation depending on that he will be placed Clinically no radiculopathic pain Will try small dose of intravenous Dilaudid before physical therapy Like to go back to [facility] following PT and OT evaluation We will decrease the frequency of pain medication Pain seems to be reasonably controlled-advised to participate in physical therapy Pain is reasonably controlled-with current medications Hx Atrial fibrillation Rate control Not on anticoagulant due to his non compliant continue metoprolol, and aspirin, Plavix Ischemic Cardiomyopathy Discussed with patient that he needs to be complaint with his med Continue Metoprolol, spironolactone, Lasix and Lisinopril Not a good candidate for ICD placement due to medication noncompliant and paranoid behavior Stable -no evidence of fluid overload Denies any shortness of breath and/or cough Chronic right leg lymphedema Stable Hypothyroidism Levothyroxine 50 mg daily Paranoid schizophrenia Continue risperidone Stable DVT prophylaxis On Lovenox subq CODE STATUS Full code Disposition He will be discharged home this afternoon He will be given the roller walker with seat on it Admission and Anticipated Discharge Date Admission Date: November 19, 2021 Subjective 11/22/2021 The patient was seen and examined in telemetry unit and in Covid room He complains of pain at the back and that goes down to the legs Denies any symptoms secondary to Covid and has not been requiring any oxygen to maintain saturation 11/23/2021 The patient was seen and examined in telemetry unit and in the Covid room He does not have any symptoms related to Covid Complains of more pain at the back without radiation and wanted to have more pain medications 11/24/2021 The patient was seen and examined in telemetry unit and in the Covid room He has been feeling much better but he still has back pain He does not have any respiratory symptoms 11/25/2021 The patient was seen and examined in telemetry unit and in the Covid room He has been complaining of some chest tightness without any shortness of breath and does not require any oxygen He has minimal cough and the back pain seems to be reasonably controlled 11/26/2021 The patient was seen and examined in Covid room He has been stable and denies any respiratory symptoms Still has back pain and the pain is worse with movement Has been getting PT and OT 11/27/2021 The patient was seen and examined in Covid room He remained stable and awaiting to go home on Monday Still complains to have some back pain with radiation to right thigh 11/28/2021 The patient was seen and examined in Covid room He has been feeling much better with minimal pain in the right lower extremity No symptoms secondary to Covid 11/29/2021 The patient was seen and examined in medical COVID room He has been complaining of back pain but denies any other symptoms He will be discharged home this afternoon He was asking for a wheelchair which cannot be fitted in his apartment as I was reported Review of Systems Review of Systems: All systems reviewed and are unremarkable except as noted below Respiratory: No respiratory distress and no shortness of breath Physical Exam Physical Exam: Lying in bed with acute distress due to low back pain Constitutional: + ill appearing and + thin Eyes: PERRL, conjunctivae normal, anicteric sclerae ENMT: external ear and nose normal, oropharynx normal Neck: trachea midline, no thyromegaly Respiratory: no respiratory distress Auscultation: + diminished lung sounds; no crackles and no wheezes Cardiovascular: Rate/Rhythm: regular rate and regular rhythm; not tachycardic Heart Sounds: normal S1 and normal S2; no murmur Extremities: no edema Gastrointestinal (Abdomen): Inspection/Auscultation: abdomen not distended Percussion/Palpation: abdomen soft; abdomen nontender Musculoskeletal: No acute arthritis in any joint. Has chronic back pain without any radiation Neurologic: Alert awake and oriented x3 Lymphatic: no cervical or axillary lymphadenopathy Results & Data Results & Data ([facility]) Vital Signs (Past 12 Hours) Vital Signs Temp Pulse Resp BP Pulse Ox 11/29/21 11:32 37 C 76 20 102/67 95 11/29/21 07:43 36.8 C 70 20 115/70 92 Medications Administered Current Inpatient Medications Acetaminophen (Acetaminophen 325 Mg Tab) 650 mg PO Q4H PRN PRN Reason: Pain or Fever Stop: 12/19/21 05:59 Hydrocodone Bitart/Acetaminophen (Hydrocodone/Acetamophen 5/325mg Tab) 1 tab PO Q4H PRN PRN Reason: pain Stop: 12/04/21 20:28 Last Admin: 11/29/21 09:26 Dose: 1 tab Documented by: Albuterol (Albuterol Hfa 8 Gm Inhaler) 2 puffs INH QID PRN PRN Reason: Dyspnea Stop: 12/25/21 16:59 Aspirin (Aspirin 81 Mg Ectab) 81 mg PO QAM [facility] Stop: 12/19/21 08:59 Last Admin: 11/29/21 09:20 Dose: Not Given Documented by: Atorvastatin Calcium (Atorvastatin 20 Mg Tab) 20 mg PO DAILY [facility] Stop: 12/19/21 08:59 Last Admin: 11/29/21 09:20 Dose: Not Given Documented by: Diclofenac Sodium (Diclofenac Sod 1% Gel 100 Gm Tube) 2 gm EXT BID [facility] Stop: 12/22/21 20:59 Last Admin: 11/29/21 09:22 Dose: Not Given Documented by: Docusate Sodium (Docusate Sodium 100 Mg Cap) 100 mg PO BID [facility] Stop: 12/19/21 08:59 Last Admin: 11/29/21 09:21 Dose: Not Given Documented by: Enoxaparin Sodium (Enoxaparin Inj 40 Mg/0.4 Ml Syr) 40 mg SQ Q24H [facility] Stop: 12/19/21 05:59 Last Admin: 11/29/21 06:08 Dose: Not Given Documented by: Furosemide (Furosemide 40 Mg Tab) 40 mg PO [facility] Stop: 12/19/21 08:59 Last Admin: 11/29/21 09:21 Dose: Not Given Documented by: Levothyroxine Sodium (Levothyroxine Sodium 50 Mcg Tablet) 50 mcg PO DAILYBB [facility] Stop: 12/19/21 06:29 Last Admin: 11/29/21 06:44 Dose: Not Given Documented by: Lidocaine (Lidocaine 5% 1 Patch) 1 patch TD [facility] Stop: 12/19/21 08:59 Last Admin: 11/29/21 09:21 Dose: Not Given Documented by: Metoprolol Succinate (Metoprolol Succ 25mg Ext Rel Tab) 12.5 mg PO [facility] Stop: 12/19/21 08:59 Last Admin: 11/29/21 09:22 Dose: Not Given Documented by: Miscellaneous (Remove Lidoderm Patch) 1 ea N/A DAILY@2100 [facility] Stop: 12/19/21 20:59 Last Admin: 11/28/21 20:03 Dose: Not Given Documented by: Miscellaneous (Remove Lidoderm Patch) 1 ea N/A DAILY@2100 [facility] Stop: 12/19/21 20:59 Last Admin: 11/28/21 20:03 Dose: Not Given Documented by: Nitroglycerin (Nitroglycerin Sl 0.4 Mg/Tab Tab) 0.4 mg SL UD PRN PRN Reason: Chest Pain Stop: 12/19/21 05:59 Ondansetron HCl (Ondansetron Inj 2 Mg/Ml 2 Ml Vial) 4 mg IV Q6H PRN PRN Reason: Nausea Stop: 12/19/21 05:59 Last Admin: 11/27/21 11:29 Dose: 4 mg Documented by: Polyethylene Glycol (Polyethylene (Miralax) 17 Gm Pack) 17 gm PO DAILY PRN PRN Reason: Constipation Stop: 12/19/21 05:59 Spironolactone (Spironolactone 12.5 Mg Tab) 12.5 mg PO DAILY [facility] Stop: 12/19/21 08:59 Last Admin: 11/29/21 09:23 Dose: 12.5 mg Documented by:
--- NOTE | 2021-11-30 08:21 | Discharge Summary ---
Date of Service November 30, 2021 Admission HPI Per Admitting Provider DICTATED BY:Jaun Sorensen MD DATE OF ADMISSION: 11/19/2021. CHIEF COMPLAINT: Weakness. HISTORY OF PRESENT ILLNESS: A 71-year-old male with past medical history significant for chronic systolic heart failure secondary to ischemic cardiomyopathy, EF of 15% to 20% on echo in 2019, severe mitral regurgitation, CAD, status post stent, hypertension, history of paroxysmal atrial fibrillation, paranoid schizophrenia, past history of DVT, history of testicular cancer, status post surgery and chemotherapy, hyperthyroidism, history of chronic lower extremity lymphedema, history of medication noncompliance, who was recently in the hospital for right lower extremity cellulitis, treated with antibiotics, and also mild lbjiy-fl-vyermyr systolic CHF and LAUREN and diarrhea and he was disch arged to [facility]. Comes back because of weakness. He complains of left sacroiliac joint pain and last admission hip CT was unremarkable and he refused MRI. [facility], advised for home health, he refused. He says after coming home he is not able to get up from the bed, not able to get up from the couch. He is not able to do anything, extreme weakness, so that is why he came to the hospital. Currently, resting comfortably, hemodynamically stable. Saturating fine on room air. His rapid COVID test came back positive. The patient is unvaccinated. The patient has no cough. Denies any headache. Has nausea, one episode of vomiting, however, attributes it to pain medication in the ER. He is somewhat constipated. No abdominal pain. Sometimes he gets short of breath, chest pains are on and off far in between,seems chronic problem. No blurry visions, no earache. He has some runny nose for few weeks. No sore throat. Appetite is not that great. No difficulty swallowing. Normal bladder movements. He says legs are looking better. Admission Exam Per Admitting Provider GENERAL: The patient is thin and frail, not in acute distress. VITAL SIGNS: Temperature 36.8, pulse 74, respiratory rate 15, blood pressure 125/76, oxygen 95% on room air. HEENT: Pupils equal, round and reactive to light. Oral mucosa moist. NECK: No JVD, no neck masses. CARDIOVASCULAR: S1 and S2 heard. Regular rate and rhythm. No murmur, no gallop. RESPIRATORY SYSTEM: Normal AP diameter. No accessory muscle use. No wheezing, no crackles. ABDOMEN: Soft, bowel sounds present, nontender, no distention. CENTRAL NERVOUS SYSTEM: Cranial nerves II-XII grossly intact, nonfocal. EXTREMITIES: Right lower extremity is in a dressing. No erythema, no edema seen. Principal Diagnosis Generalized weakness with ambulatory dysfunction, COVID-19 virus infection, atrial fibrillation, low back pain, chronic right leg lymphedema, hypothyroidism Discharge Exam Lying in bed with acute distress due to low back pain Constitutional + ill appearing and + thin Eyes PERRL, conjunctivae normal, anicteric sclerae ENMT external ear and nose normal, oropharynx normal Neck trachea midline, no thyromegaly Respiratory no respiratory distress Auscultation: + diminished lung sounds; no crackles and no wheezes Cardiovascular Rate/Rhythm: regular rate and regular rhythm; not tachycardic Heart Sounds: normal S1 and normal S2; no murmur Extremities: no edema Gastrointestinal (Abdomen) Inspection/Auscultation: abdomen not distended Percussion/Palpation: abdomen soft; abdomen nontender Lymphatic no cervical or axillary lymphadenopathy Discharge Data Allergies Allergy/AdvReac Type Severity Reaction Status Date / Time horse dander Allergy Unknown Unknown Verified 11/18/21 22:35 tetanus toxoid, adsorbed Allergy Unknown Unknown Verified 11/18/21 22:35 Consultations 11/19/21 00:58 ED Decision to Admit Stat Hospital Course (1) Ambulatory dysfunction: Generalized weakness May be secondary to COVID-19 virus infection Recently discharged from [facility] The ambulatory dysfunction is being exaggerated by back pain Continue PT/OT evaluation-recommended ongoing rehab Fall precaution He is being denied from [facility] and he does not want to go to any other rehab facility He is agreeable to go home on Monday if all the arrangements are made so that he can get his supplies when he is at home May not be appropriate to go home until Monday-remains medically stable Remains stable without any significant complaints Denies any significant symptoms except minimal back pain COVID 19 Tested positive for COVID-19 on admission. Pt is unvaccinated CXR showed no acute cardiopulmonary disease. Upper respiratory infection Does not meet the criteria Decadron and remdesivir since pt is asymptomatic saturated well on RA Clinically stable and denies any cough and/or shortness of breath Has been saturating normally on room air He was given albuterol inhaler with a spacer No shortness of breath at rest and no cough All office labs remain unremarkable and he does not have any Covid 19 virus infection symptoms Does not have any symptoms secondary to COVID-19 virus infection Low back pain Pain has been worse for the last few days Has been getting Lidoderm patch and will add Voltaren gel on top of Tylenol and small dose of narcotic He will get PT and OT evaluation depending on that he will be placed Clinically no radiculopathic pain Will try small dose of intravenous Dilaudid before physical therapy Like to go back to [facility] following PT and OT evaluation We will decrease the frequency of pain medication Pain seems to be reasonably controlled-advised to participate in physical therapy Pain is reasonably controlled-with current medications Hx Atrial fibrillation Rate control Not on anticoagulant due to his non compliant continue metoprolol, and aspirin, Plavix Ischemic Cardiomyopathy Discussed with patient that he needs to be complaint with his med Continue Metoprolol, spironolactone, Lasix and Lisinopril Not a good candidate for ICD placement due to medication noncompliant and paranoid behavior Stable -no evidence of fluid overload Denies any shortness of breath and/or cough Chronic right leg lymphedema Stable Hypothyroidism Levothyroxine 50 mg daily Paranoid schizophrenia Continue risperidone Stable DVT prophylaxis On Lovenox subq CODE STATUS Full code Disposition He will be discharged home this afternoon He will be given the roller walker with seat on it Total Time Total Time Spent Total Time Spent (In Minutes): 35 minutes Discharge Plan Discharge Items Patient Disposition: Home - Self-Care Reason For Visit: WEAKNESS Discharge Diagnosis: Generalized weakness with ambulatory dysfunction, COVID-19 virus infection, atrial fibrillation, low back pain, chronic right leg lymphedema, hypothyroidism Condition on Discharge: Fair Activity: Resume your previous activity Non-emergency contact: Primary Care Provider Call non-emergency contact if: you have any medication questions and your symptoms worsen Follow-up/Referrals: Misty Vora MD [Physician] - (Date & Time 12/03/2021 12:00 PM Provider Ameya Ramos MD Department General Internal Medicine [facility] ) Diet: Heart Healthy Addtl Attending Provider Instructions: Please take precautions to avoid fall Try to use your medications as advised Please keep appointments with your healthcare providers Pending Studies at Discharge: No Stand-Alone Forms: [employer], Smoking Cessation Medications and DC Order Prescriptions: New hydrocodone-acetaminophen 5-325 mg Tablet 1 tab PO Q6H PRN (Reason: pain) 5 Days Qty: 20 RF: 0 diclofenac sodium [Voltaren Arthritis Pain] 1 % Gel 2 g EXT BID Qty: 30 RF: 0 Continued atorvastatin 20 mg tablet 20 mg PO DAILY RF: 0 docusate sodium 100 mg capsule 100 mg PO BID RF: 0 aspirin 81 mg Tablet,Delayed Release (Dr/Ec) 81 mg PO QAM 90 Days Qty: 90 RF: 1 spironolactone 25 mg Tablet 12.5 mg PO DAILY 60 Days Qty: 30 RF: 1 levothyroxine [Synthroid] 50 mcg Tablet 50 mcg PO DAILYBB 30 Days Qty: 30 RF: 1 metoprolol succinate 25 mg Tablet Extended Release 24 Hr 12.5 mg PO QAM 60 Days Qty: 30 RF: 1 furosemide 40 mg Tablet 40 mg PO QAM Qty: 30 RF: 0 lidocaine 5 % Adhesive Patch,Medicated 1 patch transdermal QAM Qty: 10 RF: 0 Discontinued hydrocodone-acetaminophen 5-325 mg Tablet 1 tab PO Q8H PRN (Reason: pain) Qty: 10 RF: 0 Discharge Orders: Discharge Order (Routine); Ordered 11/29/21 Ordered By: Meredith Gonzalez Admission Data Admit Date/Time: 11/19/21 03:40 Attending Provider: Meredith Gonzalez Admit Provider: Jaun Sorensen Primary Care Provider: PCP,NO Other Providers: Jaun Sorensen Other Interventions: Discharge Summary Assessment (RN) Last Done: 11/29/21 13:36
== END 2021-11-29 14:30 | disposition home or self-care (01) | DRG 947 ==
LOC: ED 21:53 → SUATTDRO 11-19 03:40 → 2E 11-19 03:40 → 2W 11-25 19:54

== ENCOUNTER 2022-02-18 04:59 | Inpatient (IN) ==
[2022-02-18] MEDS: SODIUM CHLORIDE 0.9% 1000ML 1,000 ML IV SCH ×3 (05:51→23:16)
[2022-02-18] MEDS: PANTOprazole 40 MG in SYRINGE 0 ML IV ONE ×2 (05:51→06:40)
--- NOTE | 2022-02-18 05:56 | Emergency Department Note ---
History of Present Illness General Chief complaint: Vomiting Stated complaint: Vomiting Time Seen by Provider: 02/18/22 05:14 Source: patient Mode of arrival: ambulatory Limitations: patient cooperation History of Present Illness Provider complaint: Vomiting blood Onset (ago): hour(s) Maximum Pain Intensity: 7 Associated symptoms: + loss of appetite and + nausea/vomiting; no chest pain, no fever/chills or no shortness of breath Treatments prior to arrival: none This is a 71-year-old male presents emergency department complaining of vomiting blood and abdominal pain. Patient states symptoms began earlier in the evening, and were preceded by mild nausea. Patient states he vomited bright red blood multiple times. Patient was recently discharged after inpatient hospitalization. Patient with complex past medical history does include noncompliance. Patient states he has been taking his medication since he arr ived home. Patient denies black or bloody stools, fevers or chills, chest pain or trouble breathing. Patient does acknowledge that he refused EGD while he was hospitalized most recently. Patient does have a previously documented history of duodenitis. Pt seen during a time of high acuity and national emergency pandemic while wearing PPE. Home Medications Medication Instructions Recorded Confirmed Type furosemide 40 mg tablet 40 mg PO DIRECTED #30 tab 02/08/22 02/18/22 Rx lidocaine 5 % topical patch 1 patch TRANSDERMAL HS #30 ea 02/08/22 02/18/22 Rx metoprolol succinate 25 mg 12.5 mg PO BID PRN #30 tab 02/08/22 02/18/22 Rx tablet,extended release 24 hr pantoprazole 40 mg tablet,delayed 40 mg PO BID #30 tab 02/08/22 02/18/22 Rx release polyethylene glycol 3350 17 gram 17 g PO DIRECTED PRN 30 Days 02/08/22 02/18/22 Rx oral powder packet (Miralax) #30 ea atorvastatin 20 mg tablet 20 mg PO QAM 02/18/22 02/18/22 History ferrous sulfate 325 mg (65 mg 325 mg PO QAM 02/18/22 02/18/22 History iron) tablet,delayed release hydrocodone 7.5 mg-acetaminophen 1 tab PO Q4H PRN 02/18/22 02/18/22 History 325 mg tablet levothyroxine 50 mcg tablet 50 mcg PO DAILYBB 02/18/22 02/18/22 History spironolactone 25 mg tablet 12.5 mg PO QAM 02/18/22 02/18/22 History Allergies Allergy/AdvReac Type Severity Reaction Status Date / Time horse dander Allergy Unknown Unknown Verified 02/18/22 07:17 tetanus toxoid, adsorbed Allergy Unknown Unknown Verified 02/18/22 07:17 Past Med/Surg History Medical History CAD (coronary artery disease) Cholecystitis, acute Chronic systolic CHF (congestive heart failure) History of DVT (deep vein thrombosis) History of pancreatitis History of testicular cancer History of tobacco abuse Homelessness HTN (hypertension) Hypertension Hyperthyroidism Ischemic cardiomyopathy Lymphedema of right lower extremity Mitral regurgitation Palliative care encounter Pleural effusion Schizophrenia Schizotypal personality disorder STEMI (ST elevation myocardial infarction) Tricuspid regurgitation Surgical History Hx of heart artery stent Status post cardiac catheterization Family History Other Unknown family medical history Social History Smoking Status: Former smoker Tobacco Type: Cigarettes Number of Years Since Quit: 10; Second Hand Exposure: No; Do You Dip or Chew Tobacco: No; Hx Alcohol Use: No Hx Substance Use: No Preferred Language: Sinhala Communication Ability: Effective Entry Level Java Developer Required: No Beliefs That Will Affect Care: None marital status: Single Current Living Situation: Alone Current Living Situation Comment: [facility]issa Lees @ [facility] How many Children do You have: 0 Other Information That Helps Us Care for You: No Feels Safe at Home: Yes Safety Concerns: Feels Safe At This Time Assistive Devices: Walker Review of Systems A total of 10 systems reviewed and were otherwise negative All systems reviewed & are unremarkable except as noted in HPI & below Physical Exam Vital Signs Vital Signs - 24 hr 02/18/22 06:30 02/18/22 06:40 02/18/22 06:50 Temperature Temperature Source Pulse Rate 76 69 76 Pulse Rate from SpO2 Sensor 78 68 81 Respiratory Rate 19 16 17 Blood Pressure Blood Pressure Mean Blood Pressure Position Pulse Oximetry 92 90 Oxygen Delivery Method Room Air Room Air 02/18/22 07:00 02/18/22 07:10 02/18/22 07:20 Temperature Temperature Source Pulse Rate 79 79 74 Pulse Rate from SpO2 Sensor 87 80 79 Respiratory Rate 12 15 21 Blood Pressure Blood Pressure Mean Blood Pressure Position Pulse Oximetry 100 99 100 Oxygen Delivery Method Room Air Room Air Room Air 02/18/22 07:30 02/18/22 07:40 02/18/22 07:46 Temperature Temperature Source Pulse Rate 94 H 84 95 H Pulse Rate from SpO2 Sensor 81 91 H 88 Respiratory Rate 37 H 29 H 17 Blood Pressure 117/71 Blood Pressure Mean 86 Blood Pressure Position Pulse Oximetry 100 100 98 Oxygen Delivery Method Room Air Room Air Room Air 02/18/22 07:47 02/18/22 07:50 02/18/22 08:00 Temperature 36.5 C Temperature Source Oral Pulse Rate 79 84 78 Pulse Rate from SpO2 Sensor 86 77 Respiratory Rate 23 19 23 Blood Pressure 117/71 112/65 Blood Pressure Mean 86 80 Blood Pressure Position Sitting Pulse Oximetry 100 96 100 Oxygen Delivery Method Room Air Room Air 02/18/22 08:02 02/18/22 08:03 02/18/22 08:10 Temperature 36.4 C L Temperature Source Oral Pulse Rate 74 78 84 Pulse Rate from SpO2 Sensor 86 84 Respiratory Rate 20 20 15 Blood Pressure 111/70 111/70 Blood Pressure Mean 83 83 Blood Pressure Position Sitting Pulse Oximetry 98 100 100 Oxygen Delivery Method Room Air Room Air 02/18/22 08:17 02/18/22 08:19 02/18/22 08:20 Temperature 36.4 C L Temperature Source Oral Pulse Rate 73 87 82 Pulse Rate from SpO2 Sensor 95 H 92 H Respiratory Rate 20 27 H 19 Blood Pressure 117/73 117/73 Blood Pressure Mean 87 87 Blood Pressure Position Sitting Pulse Oximetry 100 100 100 Oxygen Delivery Method Room Air Room Air 02/18/22 08:30 Temperature Temperature Source Pulse Rate 82 Pulse Rate from SpO2 Sensor 85 Respiratory Rate 21 Blood Pressure 126/68 Blood Pressure Mean 87 Blood Pressure Position Pulse Oximetry 100 Oxygen Delivery Method Room Air GENERAL: alert, unwell appearing, no distress, non-toxic EYE EXAM: normal conjunctiva, PERRL and EOM's grossly intact OROPHARYNX: no exudate, no erythema, lips, buccal mucosa, and tongue normal and mucous membranes are moist NECK: supple, no nuchal rigidity, no adenopathy, non-tender LUNGS: Clear to auscultation. Normal chest wall mechanics, no w/r/r HEART: no murmurs, S1 normal and S2 normal ABDOMEN: abdomen soft, tenderness with palpation of the epigastric and left upper quadrant, normo-active bowel sounds, no masses, no rebound or guarding. BACK: Back is symmetrical on inspection and there is no deformity, no midline tenderness, no CVA tenderness. SKIN: no rashes and no bruising UPPER EXTREMITIES: upper extremities are grossly normal. FROM, nml pulses b/l. LOWER EXTREMITIES: No pitting edema. FROM, nml pulses b/l. NEURO EXAM: Normal sensorium, cranial nerves II-XII grossly intact, normal speech, no gross weakness of arms, no gross weakness of legs. Gross sensation intact. Course Course 06: Patient updated on results. No recurrent vomiting since arrival. Patient is in agreement with plan for blood transfusion and additional inpatient management. He is still unsure whether or not he wants to have an EGD performed. 0712: DIscussed with Dr. Sorensen. 0725: Disussed with Dr. Leung. He is very familiar with the patient. CT not yet performed, he will follow-up results. VS stable at this time. Administered Medications Hydrocodone Bitart/Acetaminophen (Hydrocodone/Acetaminophen 7.5/325mg Tab) 1 tab PO Q4H PRN PRN Reason: Pain Stop: 03/04/22 10:32 Last Admin: 02/19/22 03:49 Dose: 1 tab Documented by: [id number] Admin: 02/18/22 23:15 Dose: 1 tab Documented by: [id number] Admin: 02/18/22 19:14 Dose: 1 tab Documented by: [id number] Admin: 02/18/22 15:10 Dose: 1 tab Documented by: [id number] Admin: 02/18/22 11:07 Dose: 1 tab Documented by: [id number] Sodium Chloride (Nss 1000ml) 1,000 mls @ 125 mls/hr IV .Q8H MIRZA Stop: 03/20/22 05:59 Last Admin: 02/18/22 23:16 Dose: 125 mls/hr Documented by: [id number] Infusion: 02/18/22 23:16 Dose: 125 mls/hr Documented by: [id number] Admin: 02/18/22 16:10 Dose: 125 mls/hr Documented by: [id number] Infusion: 02/18/22 13:51 Dose: 125 mls/hr Documented by: [id number] Admin: 02/18/22 05:51 Dose: 125 mls/hr Documented by: [id number] Pantoprazole Sodium 40 mg/ (Dextrose) 100 mls @ 20 mls/hr IV Q5H REPLACED BY [facility] Stop: 03/20/22 06:59 Last Admin: 02/19/22 01:43 Dose: 8 mg/hr, 20 mls/hr Documented by: [id number] Infusion: 02/19/22 01:43 Dose: 8 mg/hr, 20 mls/hr Documented by: [id number] Admin: 02/18/22 20:48 Dose: 8 mg/hr, 20 mls/hr Documented by: [id number] Infusion: 02/18/22 20:48 Dose: 8 mg/hr, 20 mls/hr Documented by: [id number] Admin: 02/18/22 16:10 Dose: 8 mg/hr, 20 mls/hr Documented by: [id number] Infusion: 02/18/22 16:10 Dose: 8 mg/hr, 20 mls/hr Documented by: [id number] Admin: 02/18/22 12:51 Dose: 8 mg/hr, 20 mls/hr Documented by: [id number] Infusion: 02/18/22 12:42 Dose: 8 mg/hr, 20 mls/hr Documented by: [id number] Admin: 02/18/22 07:42 Dose: 8 mg/hr, 20 mls/hr Documented by: [id number] Levothyroxine Sodium (Levothyroxine Sodium 50 Mcg Tablet) 50 mcg PO DAILYBB REPLACED BY [facility] Stop: 03/21/22 06:29 Last Admin: 02/19/22 05:44 Dose: 50 mcg Documented by: [id number] Lidocaine (Lidocaine 5% 1 Patch) 1 patch TD HS REPLACED BY [facility] Stop: 03/20/22 20:59 Last Admin: 02/18/22 20:52 Dose: 1 patch Documented by: [id number] Miscellaneous (Remove Lidoderm Patch) 1 ea N/A DAILY@2100 REPLACED BY [facility] Stop: 03/20/22 20:59 Last Admin: 02/18/22 20:53 Dose: Not Given Documented by: [id number] Ondansetron HCl (Ondansetron Inj 2 Mg/Ml 2 Ml Vial) 4 mg IV Q4H PRN PRN Reason: Nausea And Vomiting Stop: 03/20/22 10:32 Last Admin: 02/18/22 11:07 Dose: 4 mg Documented by: [id number] Discontinued Medications Furosemide (Furosemide Inj 20 Mg/2 Ml Vial) 20 mg IV TODAY@1100 MIRZA Stop: 02/18/22 20:00 Last Admin: 02/18/22 10:59 Dose: 20 mg Documented by: [id number] Pantoprazole Sodium 40 mg/ (Syringe) 10 mls @ 5 mls/min IV NOW ONE Stop: 02/18/22 05:49 Last Admin: 02/18/22 06:40 Dose: 5 mls/min Documented by: [id number] Magnesium Sulfate/Dextrose (Magnesium Sulfate / D5w) 1 gm in 100 mls @ 100 mls/hr IV NOW STA Stop: 02/18/22 08:03 Last Infusion: 02/18/22 12:06 Dose: 0 mls/hr Documented by: [id number] Admin: 02/18/22 10:04 Dose: 100 mls/hr Documented by: [id number] Acetaminophen (Ofirmev) 1,000 mg in 100 mls @ 400 mls/hr IV NOW STA Stop: 02/18/22 07:44 Last Infusion: 02/18/22 09:55 Dose: 0 mls/hr Documented by: [id number] Admin: 02/18/22 09:39 Dose: 400 mls/hr Documented by: [id number] Ioversol (Optiray 320 100ml) 94 ml IV ONCE ONE Stop: 02/18/22 10:10 Last Admin: 02/18/22 10:10 Dose: 94 ml Documented by: [id number] Ondansetron HCl (Ondansetron Inj 2 Mg/Ml 2 Ml Vial) 4 mg IV NOW STA Stop: 02/18/22 06:00 Last Admin: 02/18/22 06:03 Dose: 4 mg Documented by: [id number] Ondansetron HCl (Ondansetron Inj 2 Mg/Ml 2 Ml Vial) Confirm Administered Dose 4 mg .ROUTE .STK-MED ONE Stop: 02/18/22 06:00 Last Admin: 02/18/22 06:03 Dose: Not Given Documented by: [id number] Critical Care Time Critical Care Time: Yes Total Critical Care Time: 42 Critical care of 42 min performed to assess and manage high likelihood of life- threatening GI bleed, involving labs and imaging performed with assessment to evaluate GI bleed diagnosis with frequent reassessment. This time includes bedside time, treatment discussions with patient/family/consultants, documentation time and excludes procedure time. Medical Decision Making Differential Diagnosis Differential: PUD, duodenitis, Gastroenteritis, Food Borne, Esophageal Perforation, , Electrolyte Abnormality, Dehydration, Intraabdominal Infection, UTI/Pyelonephritis, Bowel Obstruction, Biliary Pathology, amongst other pathology entertained. Medical Records Attestation: I reviewed the patient's medical records. Home Medications Current Medication List: was personally reviewed by me Laboratory Data Attestation: I reviewed the patient's lab results. Result diagrams: 02/18/22 21:28 02/18/22 06:05 Lab Results 02/18/22 02/18/22 02/18/22 Range/Units 06:05 06:05 06:05 WBC 10.99 H (4.8-10.8) K/uL RBC 2.17 L (4.7-6.1) M/uL Hgb 6.0 L* (14.0-18.0) g/dL Hct 19.5 L* (42-52) % MCV 89.9 (80-100) fL MCH 27.6 (25-34) pg MCHC 30.8 L (32-36) g/dL RDW Std Deviation 48.6 H (36.4-46.3) fL RDW Coeff of Dante 14.6 H (11.5-14.5) % Plt Count 318 (130-400) K/uL MPV 8.4 (7.4-10.4) fL Immature Gran % (Auto) 0.4 % Neut % (Auto) 86.3 % Lymph % (Auto) 6.3 % [place] % (Auto) 6.3 % Eos % (Auto) 0.6 % Baso % (Auto) 0.1 % Neut # (Auto) 9.49 H (1.4-6.5) K/uL Lymph # (Auto) 0.69 L (1.2-3.4) K/uL [place] # (Auto) 0.69 H (0.11-0.59) K/uL Eos # (Auto) 0.07 (0-0.5) K/uL Baso # (Auto) 0.01 (0-0.2) K/uL Immature Gran # (Auto) 0.04 H (0.00-0.02) K/uL RBC Morphology Unremarkable PT 12.1 H (9.0-12.0) Seconds INR 1.1 (0.9-1.1) Sodium 143 (136-145) mmol/L Potassium 3.7 (3.5-5.1) mmol/L Chloride 109 H (98-107) mmol/L Carbon Dioxide 26 (21-32) mmol/L Anion Gap 8 (3-11) BUN 20 (6-23) mg/dl Creatinine 0.85 (0.6-1.4) mg/dl Est Cr Clr Drug Dosing 63.8 ml/min Est GFR ( Amer) 103.0 ml/min Est GFR (Non-Af Amer) 88.9 ml/min BUN/Creatinine Ratio 23.5 H (10-20) Glucose 110 H (70-99(Fasting)) mg/dl Calcium 8.1 L (8.5-10.1) mg/dl Magnesium 1.6 L (1.7-2.4) mg/dl Total Bilirubin 0.3 (0.2-1.0) mg/dl AST 7 L (13-39) U/L ALT 4 L (7-52) U/L Alkaline Phosphatase 80 (34-104) U/L Troponin I 0.03 (0-0.04) ng/ml C-Reactive Protein (0-0.5) mg/dl Total Protein 5.5 L (6.0-8.3) gm/dl Albumin 2.7 L (3.4-5.0) gm/dl Globulin 2.8 (2.5-4.0) gm/dl Albumin/Globulin Ratio 1.0 (0.9-2) Lipase 9 L (11-82) U/L Blood Type Antibody Screen Crossmatch 02/18/22 02/18/22 Range/Units 06:05 06:05 WBC (4.8-10.8) K/uL RBC (4.7-6.1) M/uL Hgb (14.0-18.0) g/dL Hct (42-52) % MCV (80-100) fL MCH (25-34) pg MCHC (32-36) g/dL RDW Std Deviation (36.4-46.3) fL RDW Coeff of Dante (11.5-14.5) % Plt Count (130-400) K/uL MPV (7.4-10.4) fL Immature Gran % (Auto) % Neut % (Auto) % Lymph % (Auto) % [place] % (Auto) % Eos % (Auto) % Baso % (Auto) % Neut # (Auto) (1.4-6.5) K/uL Lymph # (Auto) (1.2-3.4) K/uL [place] # (Auto) (0.11-0.59) K/uL Eos # (Auto) (0-0.5) K/uL Baso # (Auto) (0-0.2) K/uL Immature Gran # (Auto) (0.00-0.02) K/uL RBC Morphology PT (9.0-12.0) Seconds INR (0.9-1.1) Sodium (136-145) mmol/L Potassium (3.5-5.1) mmol/L Chloride (98-107) mmol/L Carbon Dioxide (21-32) mmol/L Anion Gap (3-11) BUN (6-23) mg/dl Creatinine (0.6-1.4) mg/dl Est Cr Clr Drug Dosing ml/min Est GFR ( Amer) ml/min Est GFR (Non-Af Amer) ml/min BUN/Creatinine Ratio (10-20) Glucose (70-99(Fasting)) mg/dl Calcium (8.5-10.1) mg/dl Magnesium (1.7-2.4) mg/dl Total Bilirubin (0.2-1.0) mg/dl AST (13-39) U/L ALT (7-52) U/L Alkaline Phosphatase (34-104) U/L Troponin I (0-0.04) ng/ml C-Reactive Protein 6.36 H (0-0.5) mg/dl Total Protein (6.0-8.3) gm/dl Albumin (3.4-5.0) gm/dl Globulin (2.5-4.0) gm/dl Albumin/Globulin Ratio (0.9-2) Lipase (11-82) U/L Blood Type O Positive Antibody Screen NEGATIVE Crossmatch See Detail ECG Data Attestation: I personally reviewed and interpreted this ECG as follows: Indication: + vomiting Rate (beats per minute): 95 Rhythm: + normal sinus ECG Intervals/blocks: + Normal QRS and + Normal QT ECG [place]: + Normal ECG ST segments: + Nonspecific ST abnormalities ECG Findings: + PACs MDM Narrative This is a 71 yo male with complicated PMHx including prior GI bleed who presents with c/o hematemesis. VS stable. No hx of etoh abuse or varices. Labs reveal anemia, worse compared to prior. Patient agreeable with plan for blood transfusion. Patient given protonix bolus and drip. Blood ordered. CT scan added as a precaution. Patient chronic pain, however given hx of duodenitis and admitted noncompliance now with hematemesis and anemia, CT added to r/o addition pathology and complication. Hospitalist aware at time of discussion and will follow-up results. VS remained stable in the ER. Patient made aware of all results and need for additional inpatient mgmt. An order was placed for continuous cardiac monitoring. The monitor shows a rate of _88_ with _normal sinus_ rhythm. Impression & Plan Vomiting, Non-compliance, Anemia, Hematemesis, Chronic pain Discharge Plan Visit Data Chief Complaint: Vomiting Stated Complaint: Vomiting ED Provider: Karley Barraza Discharge Problem: Vomiting, Non-compliance, Anemia, Hematemesis, Chronic pain Patient Disposition: Admitted As Inpatient Discharge Instructions Interventions: ED Discharge Assessment Last Done: 02/18/22 09:56 Discharge Problem: Vomiting Qualifiers: Vomiting type: unspecified Nausea presence: with nausea Qualified Code(s): R11.2 - Nausea with vomiting, unspecified Anemia Qualifiers: Anemia type: unspecified type Qualified Code(s): D64.9 - Anemia, unspecified Hematemesis Qualifiers: Nausea presence: with nausea Qualified Code(s): K92.0 - Hematemesis Chronic pain Qualifiers: Chronic pain type: other chronic pain Qualified Code(s): G89.29 - Other chronic pain
[2022-02-18] MEDS ORDERED: ONDANSETRON INJ 2 MG/ML 2 ML VIAL IV STA (05:59)
[2022-02-18] MEDS ORDERED: ONDANSETRON INJ 2 MG/ML 2 ML VIAL ONE (05:59)
[2022-02-18 06:38] LABS: Troponin I 0.03 ng/ml (0-0.04)
[2022-02-18 06:43] LABS: Hematocrit (blood only) 19.5 % (42-52); Mean Corpuscular Hemoglobin 27.6 pg (25-34); Mean Corpuscular Hgb Conc 30.8 g/dL (32-36); Mean Corpuscular Volume 89.9 fL (80-100); Mean Platelet Volume 8.4 fL (7.4-10.4); Platelet Count 318 K/uL (130-400); RDW Coefficient of Variation 14.6 % (11.5-14.5); RDW Standard Deviation 48.6 fL (36.4-46.3); Red Blood Count 2.17 M/uL (4.7-6.1); White Blood Count 10.99 K/uL (4.8-10.8)
[2022-02-18 06:46] LABS: Albumin Level 2.7 gm/dl (3.4-5.0); BUN Creatinine Ratio 23.5 (10-20); Bilirubin,Total 0.3 mg/dl (0.2-1.0); Calcium 8.1 mg/dl (8.5-10.1); Creatinine Clr Calc Pharmacy 63.8 ml/min; Est GFR (Non-African American) 88.9 ml/min; Globulin 2.8 gm/dl (2.5-4.0); INR 1.1 (0.9-1.1); Magnesium 1.6 mg/dl (1.7-2.4); Potassium 3.7 mmol/L (3.5-5.1); Prothrombin Time 12.1 Seconds (9.0-12.0); Total Protein 5.5 gm/dl (6.0-8.3)
[2022-02-18 06:50] LABS: Basophils # (auto) 0.01 K/uL (0-0.2); Basophils % (auto) 0.1 %; Eosinophils # (auto) 0.07 K/uL (0-0.5); Eosinophils % (auto) 0.6 %; Immature Granulocytes # (auto) 0.04 K/uL (0.00-0.02); Immature Granulocytes % (auto) 0.4 %; Lymphocytes # (auto) 0.69 K/uL (1.2-3.4); Lymphocytes % (auto) 6.3 %; Monocytes # (auto) 0.69 K/uL (0.11-0.59); Monocytes % (auto) 6.3 %; Neutrophils # (auto) 9.49 K/uL (1.4-6.5); Neutrophils % (auto) 86.3 %; RBC Morphology Unremarkable
[2022-02-18] MEDS ORDERED: SODIUM CHLORIDE 0.9% 250 ML IV PRN (06:59)
[2022-02-18] MEDS ORDERED: MAGNESIUM SULFATE / D5W 1 GM/100 ML BAG IV STA (07:04)
[2022-02-18] MEDS ORDERED: ACETAMINOPHEN 1,000 MG/100 ML VIAL IV STA (07:30)
[2022-02-18] MEDS: PANTOprazole 40 MG in DEXTROSE 5% 100 ML IV SCH ×4 (07:42→20:48)
--- NOTE | 2022-02-18 08:46 | History & Physical Report ---
Date of Service February 18, 2022 Assessment & Plan (1) Hematemesis: Plan: - Admit to tele - Consult GI for possible endoscopy -during the patient's previous admission he was refusing endoscopy procedure and therefore was treated conservatively with Protonix. At this point it is hard to say if he has been compliant with taking pantoprazole as an outpatient due to his history of noncompliance. At this time he is hesitant to allow scope and feels that we will "ripped the scab off and he will bleed to ". Discussion was held regarding ability to evaluate the source of bleed and possible cauterize what is bleeding. Pt does not exhibit understanding of his condition. Will defer further workup to GI regarding such procedure - Continue protonix gtt for now - Hgb of 6 on admission, transfusing 2 U PRBCs today, give lasix 20 mg IV in between due to EF of 20%. - Repeat hgb level routinely - Cont PO iron - Keep NPO for now - WBC is noted to be 10.99 with a left shift, will follow, possibly reactive. No acute signs of infectious etiology, afebrile. Recently was evaluated by ID for osteomyelitis and discitis of L2-L3 during his last admission and completed 7 weeks and 3 days of cefepime, and 6 week course of daptomycin 8 mg/kg. As of 02/02 pt was taken off abx per ID recs. Will recheck CRP today. Was mentioned to have bone biopsy in the future if this remained elevated. Previously pt refused biopsy. (2) Anemia due to blood loss: Plan: - Secondary due to above -Transfusion as above, trend hemoglobin (3) Ischemic cardiomyopathy: Plan: - Unknown if the patient is taking his medications with history of noncompliance -We will hold Lasix, spironolactone and metoprolol secondary to acute GI bleed -Previously has not been a good candidate for ICD placement due to medication noncompliance and paranoid behavior -Echo reviewed and unchanged, has EF of 20% -Appears hypovolemic currently-transfusing as above, give lasix in between units of blood (4) Paroxysmal atrial fibrillation: Plan: - Currently in NSR, anticoagulation contraindicated secondary to GI bleed as above (5) HTN (hypertension): Plan: - Holding antihypertensive medications as above, BP 126/80 currently (6) Paranoid schizophrenia: Plan: -Consider psychiatry consult -CM to assist with discharge planning (7) Ambulatory dysfunction: Plan: -PT/OT consults (8) CKD (chronic kidney disease), stage III: Plan: -Chronic, stable (9) COPD (chronic obstructive pulmonary disease): Plan: -History of such, chronic, stable, does not appear to be in an acute COPD exacerbation at this time DVT PPx: - teds, scds, no anticoagulation in the setting of acute GI bleed CODE: Full code Dispo: From home, likely to remain in the hospital x 2 days. CM to assist with dc planning. History of Present Illness Primary Care Provider: Misty Vora MD This is a 71 yo M with PMHx of chronic systolic heart failure secondary to ischemic cardiomyopathy EF 15-20%, TTE 2019), severe mitral regurgitation, CAD status post stent, hypertension, hx PAF, paranoid schizophrenia, past hx DVT, hx testicular CA sp surgery and chemotherapy, past tobacco abuse, chronic anemia (baseline hemoglobin of 10-11), hypothyroidism, history chronic leg lymphedema, medication noncompliance. He has spent the majority of the past 3 months confined in the hospital. Recently admitted to the hospital here from 12/06/21- 02/08/22 for osteomyelitis/discitis of lumbar spine, upper Gi bleed with duodenitis vs peptic ulcer disease with needs for blood transfusion and protonix gtt, subsequently developed bout of Afib with RVR likely due to underlying upper GI bleed which was controlled with metoprolol. No anticoagulation was initiated due to GiB. Prior to this admission pt was here from 11/19/21 -11/30/21 for ambulatory dysfunction and COVID-19 illness, he is unvaccinated. Today the patient presents with hematemesis which started around midnight,he reports 5 very large episodes with dark red blood. He notes that he has been nauseous every 20 minutes and has a mid left sided abdominal pain which is nearly intolerable, denies dark tarry stools, diarrhea, or BRBPR. He also reports having chest heaviness and pain during these episodes of retching and vomiting blood. He has requested Dilaudid 3 times during my visit. Patient has been taking hydrocodone at home for pain and specifically states that it has his left hip which hurts. He has been walking at home but doing so with his hands on his knees, he does not use any assistive devices such as cane or walker at baseline. He in regards to his medications, he is unable to tell me exactly what medications he is taking. 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 Patient lives by himself in an apartment. He denies any lightheadedness, dizziness or shortness of breath. During the patient's previous admission he was refusing endoscopy procedure and therefore was treated conservatively with Protonix. At this point it is hard to say if he has been compliant with taking pantoprazole as an outpatient due to his history of noncompliance. At this time he is hesitant to allow scope and feels that we will "ripped the scab off and he will bleed to ". He reports not wanting a tube down his throat. He is willing to talk with the GI team, but ultimately wants "to be watched here over night and get some dilaudid". Allergies Allergy/AdvReac Type Severity Reaction Status Date / Time horse dander Allergy Unknown Unknown Verified 02/18/22 07:17 tetanus toxoid, adsorbed Allergy Unknown Unknown Verified 02/18/22 07:17 Home Medications Medication Instructions Recorded Confirmed Type furosemide 40 mg tablet 40 mg PO DIRECTED #30 tab 02/08/22 02/18/22 Rx lidocaine 5 % topical patch 1 patch TRANSDERMAL HS #30 ea 02/08/22 02/18/22 Rx metoprolol succinate 25 mg 12.5 mg PO BID PRN #30 tab 02/08/22 02/18/22 Rx tablet,extended release 24 hr polyethylene glycol 3350 17 gram 17 g PO DIRECTED PRN 30 Days 02/08/22 02/18/22 Rx oral powder packet (Miralax) #30 ea atorvastatin 20 mg tablet 20 mg PO QAM 02/18/22 02/18/22 History ferrous sulfate 325 mg (65 mg 325 mg PO QAM 02/18/22 02/18/22 History iron) tablet,delayed release hydrocodone 7.5 mg-acetaminophen 1 tab PO Q4H PRN 02/18/22 02/18/22 History 325 mg tablet levothyroxine 50 mcg tablet 50 mcg PO DAILYBB 02/18/22 02/18/22 History spironolactone 25 mg tablet 12.5 mg PO QAM 02/18/22 02/18/22 History magnesium chloride 64 mg 64 mg PO BID #14 tab 02/24/22 Rx (magnesium chloride) tablet,delayed release (Mag 64) ondansetron 4 mg disintegrating 4 mg PO DAILY PRN 7 Days #7 tab 02/24/22 Rx tablet pantoprazole 40 mg tablet,delayed 40 mg PO BID #60 tab 02/24/22 Rx release potassium chloride 20 mEq 20 meq PO DAILY #14 tab 02/24/22 Rx tablet,extended release(part/cryst) sucralfate 1 gram tablet (Carafate) 1 g PO ACHS 28 Days #28 tab 02/24/22 Rx Past Med/Surg History Medical History CAD (coronary artery disease) Cholecystitis, acute Chronic systolic CHF (congestive heart failure) History of DVT (deep vein thrombosis) History of pancreatitis History of testicular cancer History of tobacco abuse Homelessness HTN (hypertension) Hypertension Hyperthyroidism Ischemic cardiomyopathy Lymphedema of right lower extremity Mitral regurgitation Palliative care encounter Pleural effusion Schizophrenia Schizotypal personality disorder STEMI (ST elevation myocardial infarction) Tricuspid regurgitation Surgical History Hx of heart artery stent Status post cardiac catheterization Family History Other Unknown family medical history Social History Smoking Status: Former smoker Tobacco Type: Cigarettes Number of Years Since Quit: 10; Second Hand Exposure: No; Hx Alcohol Use: No Hx Substance Use: No Preferred Language: [place] Communication Ability: Effective Materials Tech Required: No Beliefs That Will Affect Care: None marital status: Single Current Living Situation: Alone Current Living Situation Comment: Charissa Lees @ housing Transitions How many Children do You have: 0 Feels Safe at Home: Yes Assistive Devices: None Review of Systems Review of Systems: Constitutional: No fever, sweats or chills Eyes: No diplopia, no worsening or blurred vision ENT: normal hearing, no trouble swallowing Respiratory: No cough, sputum, dyspnea at rest or on exertion Cardiovascular: As per HPI. +chest pain and heaviness during vomitting blood, no tightness or palpitations Abdomen: As per HPI. Musculoskeletal: + chronic Left hip pain making walking difficulty, otherwise no joint pain, calf pain, or swelling Neurologic: + generalized weakness, no numbness/tingling, no balance problems Psychiatric: + paranoid schizophrenia , no anxiety or depression Skin: No rash or itch Physical Exam Physical Exam: General: awake, alert, no apparent distress, + pallor, + thin, BMI 18.4 Head: Normocephalic, atraumatic ENT: PERRL, EOMI, no pharyngeal exudate, mucous membranes moist, + endentulous Chest: Clear to auscultation, on room air, no adventitious breath sounds Cardiac: Regular rate and rhythm, no murmur, no JVD, normal peripheral pulses, good capillary refill Abdominal: NABS x 4 quadrants, soft, nondistended, + dramatic response with light palpation to abdomen in all quadrants, jumping in pain, no rebound or guarding Extremities: Normal inspection, no peripheral edema or erythema, calfs nontender to palpation Psych: History of paranoid schizophrenia, initially upon my entering to the room he is hesitant to speak with me, dramatic regarding his pain and requesting Dilaudid, at times speaks in a nearly inaudible voice, then opens his eyes wide and repeats himself loudly. Neuro: AAO x 3, strength intact bilaterally and rated 5/5, no motor deficits, speech is clear, no peripheral sensory deficits Results & Data Results & Data ([facility]) Vital Signs (Past 12 Hours) Vital Signs Temp Pulse Resp BP BP Pulse Ox 02/18/22 08:17 36.4 C L 73 20 117/73 100 02/18/22 08:02 36.4 C L 74 20 111/70 98 02/18/22 07:47 36.5 C 79 23 117/71 100 02/18/22 07:46 95 H 17 117/71 98 02/18/22 07:40 84 29 H 100 02/18/22 07:30 94 H 37 H 100 02/18/22 07:20 74 21 100 02/18/22 07:10 79 15 99 02/18/22 07:00 79 12 100 02/18/22 06:50 76 17 90 02/18/22 06:40 69 16 02/18/22 06:30 76 19 92 02/18/22 06:00 86 13 100 02/18/22 05:30 93 H 6 L 100 02/18/22 05:08 88 13 124/70 100 02/18/22 04:57 90 18 124/70 124/70 98 Laboratory Results 02/18/22 02/18/22 02/18/22 Unknown 06:05 06:05 WBC RBC Hgb Hct MCV MCH MCHC RDW Std Deviation RDW Coeff of Dante Plt Count MPV Immature Gran % (Auto) Neut % (Auto) Lymph % (Auto) [place] % (Auto) Eos % (Auto) Baso % (Auto) Neut # (Auto) Lymph # (Auto) [place] # (Auto) Eos # (Auto) Baso # (Auto) Immature Gran # (Auto) RBC Morphology PT INR Sodium 143 Potassium 3.7 Chloride 109 H Carbon Dioxide 26 Anion Gap 8 BUN 20 Creatinine 0.85 Est Cr Clr Drug Dosing 63.8 Est GFR ( Amer) 103.0 Est GFR (Non-Af Amer) 88.9 BUN/Creatinine Ratio 23.5 H Glucose 110 H Calcium 8.1 L Magnesium 1.6 L Total Bilirubin 0.3 AST 7 L ALT 4 L Alkaline Phosphatase 80 Troponin I 0.03 Total Protein 5.5 L Albumin 2.7 L Globulin 2.8 Albumin/Globulin Ratio 1.0 Lipase 9 L SARS-CoV-2, RNA, NAAT NEGATIVE Blood Type O Positive Antibody Screen NEGATIVE Crossmatch See Detail 02/18/22 02/18/22 06:05 06:05 WBC 10.99 H RBC 2.17 L Hgb 6.0 L* Hct 19.5 L* MCV 89.9 MCH 27.6 MCHC 30.8 L RDW Std Deviation 48.6 H RDW Coeff of Dante 14.6 H Plt Count 318 MPV 8.4 Immature Gran % (Auto) 0.4 Neut % (Auto) 86.3 Lymph % (Auto) 6.3 [place] % (Auto) 6.3 Eos % (Auto) 0.6 Baso % (Auto) 0.1 Neut # (Auto) 9.49 H Lymph # (Auto) 0.69 L [place] # (Auto) 0.69 H Eos # (Auto) 0.07 Baso # (Auto) 0.01 Immature Gran # (Auto) 0.04 H RBC Morphology Unremarkable PT 12.1 H INR 1.1 Sodium Potassium Chloride Carbon Dioxide Anion Gap BUN Creatinine Est Cr Clr Drug Dosing Est GFR ( Amer) Est GFR (Non-Af Amer) BUN/Creatinine Ratio Glucose Calcium Magnesium Total Bilirubin AST ALT Alkaline Phosphatase Troponin I Total Protein Albumin Globulin Albumin/Globulin Ratio Lipase SARS-CoV-2, RNA, NAAT Blood Type Antibody Screen Crossmatch Diagnostic Findings Obtaining CT of the abdomen ECG Additional Comments: 18-FEB-2022 05:31:56 [facility]-EDSTAT ROUTINE RETRIEVAL Sinus rhythm with Premature atrial complexes with Aberrant conduction Minimal voltage criteria for LVH, may be normal variant ST & T wave abnormality, consider inferior ischemia Prolonged QT Abnormal ECG When compared with ECG of 08-JAN-2022 15:26, Sinus rhythm has replaced Atrial fibrillation T wave inversion now evident in Inferior leads T wave inversion no longer evident in Lateral leads QT has lengthened 25mm/s10mm/[id number] HDCID: 12Referred by: REFERRED SELF Unconfirmed Vent. rate 95 BPM WI interval 138 ms QRS duration 98 ms QT/QTc 432/542 ms Code Status & VTE Plan Code Status Full code - discussed with the patient at bedside VTE Prophylaxis Plan VTE Prophylaxis will be ordered: Yes Supervising Physician Co-Signing Physician Notes delayed entry date of service noted above Attending Addendum: care coordinated with BETHANY Robles please refer to her notes for full details, I agree with her notes, assessment and plan patient seen and examined, records reviewed by myself as well Patrick Sexton MD (1) COPD (chronic obstructive pulmonary disease) COPD type: unspecified COPD Qualified Code(s): J44.9 - Chronic obstructive pulmonary disease, unspecified (2) Hematemesis Nausea presence: with nausea Qualified Code(s): K92.0 - Hematemesis
[2022-02-18] MEDS ORDERED: OPTIRAY 320 100ml IV ONE (10:09)
[2022-02-18] MEDS ORDERED: ACETAMINOPHEN 325 MG TAB PO PRN (10:33)
--- NOTE | 2022-02-18 10:52 | Gastrointestinal Consultation ---
Date of Consultation February 18, 2022 Assessment & Plan (1) Hematemesis: 71 year old male with numerous medical comorbidities admitted with acute on chronic anemia in the setting of hematemesis, large volume episodes x 5 around 0100. Denies previous coffee ground emesis, melena or hematochezia. He is very fearful of EGD given unsuccessful attempt without sedation in the . He was educated on EGD, anesthesa, risk/benefits. He is fearful but is considering completion of the test and would like some more time to think about it NPO EGD today IV PPI bolus and drip Trend HGB Monitor and document output Transfuse PRN Await CT read Thank you for allowing us to participate in the care of this patient. Please call with any acute changes, questions or concerns. Please see addendum below with additional recommendation from my supervising physician. Supervising Physician Co-Signing Physician Notes Saw and evaluated patient. We were consulted for evaluation of hematemesis that occurred last evening. The patient had symptoms on and off for several weeks and had been recommended to undergo upper endoscopy during his last admission. Unfortunately the patient does not want to undergo endoscopy for evaluation. Physical examination no obvious distress pallor of skin noted no Abdominal tenderness Patient presents for evaluation of hematemesis. Based on the longevity of his symptoms I would wonder about a hiatal hernia and perhaps a Cha-Wetzel tear as a likely etiology to his recurrent symptoms. As the patient has not willing to undergo endoscopy we have limited options for him other than medical therapy. Recommendations Protonix 40 mg twice daily for 4 weeks then decrease to 1 time daily thereafter Carafate slurry 4 times daily for 2 weeks Consider use of an iron supplement upon discharge for at least 6 weeks Please call with any questions or concerns History of Present Illness Reason for Consultation: hematemesis Requesting Physician: Darshan Attending Physician: Patrick Sexton MD History of Present Illness 71 year old male w/ history of systolic heart failure secondary to ischemic cardiomyopathy EF 15-20%, TTE 2019),severe mitral regurgitation, CAD status post stent, hypertension, hx PAF, paranoid schizophrenia, past hx DVT,hx testicular CA sp surgery and chemotherapy, past tobacco abuse, chronic anemia (baseline hemoglobin of 10-11), hypothyroidism, history chronic leg lymphedema, medication noncompliance admitted with hematemesis. GI asked to evaluate. He notes that around 0100 he woke up with hematemesis. He had large volume episodes of bloody emesis. No previous coffee ground emesis. No report of melena or hematochezia. Presently feeling okay. Denies nausea, vomiting this AM. No abd pain. Denies lightheadedness, dizziness, CP, SOB CTAP 2021: not read yet EGD: in the 90's could not tolerate was without sedation Allergies Allergy/AdvReac Type Severity Reaction Status Date / Time horse dander Allergy Unknown Unknown Verified 02/18/22 07:17 tetanus toxoid, adsorbed Allergy Unknown Unknown Verified 02/18/22 07:17 Home Medications Medication Instructions Recorded Confirmed Type furosemide 40 mg tablet 40 mg PO DIRECTED #30 tab 02/08/22 02/18/22 Rx lidocaine 5 % topical patch 1 patch TRANSDERMAL HS #30 ea 02/08/22 02/18/22 Rx metoprolol succinate 25 mg 12.5 mg PO BID PRN #30 tab 02/08/22 02/18/22 Rx tablet,extended release 24 hr pantoprazole 40 mg tablet,delayed 40 mg PO BID #30 tab 02/08/22 02/18/22 Rx release polyethylene glycol 3350 17 gram 17 g PO DIRECTED PRN 30 Days 02/08/22 02/18/22 Rx oral powder packet (Miralax) #30 ea atorvastatin 20 mg tablet 20 mg PO QAM 02/18/22 02/18/22 History ferrous sulfate 325 mg (65 mg 325 mg PO QAM 02/18/22 02/18/22 History iron) tablet,delayed release hydrocodone 7.5 mg-acetaminophen 1 tab PO Q4H PRN 02/18/22 02/18/22 History 325 mg tablet levothyroxine 50 mcg tablet 50 mcg PO DAILYBB 02/18/22 02/18/22 History spironolactone 25 mg tablet 12.5 mg PO QAM 02/18/22 02/18/22 History Patient History Medical History CAD (coronary artery disease) Cholecystitis, acute Chronic systolic CHF (congestive heart failure) History of DVT (deep vein thrombosis) History of pancreatitis History of testicular cancer History of tobacco abuse Homelessness HTN (hypertension) Hypertension Hyperthyroidism Ischemic cardiomyopathy Lymphedema of right lower extremity Mitral regurgitation Palliative care encounter Pleural effusion Schizophrenia Schizotypal personality disorder STEMI (ST elevation myocardial infarction) Tricuspid regurgitation Surgical History Hx of heart artery stent Status post cardiac catheterization Family History Other Unknown family medical history Social History Smoking Status: Former smoker Tobacco Type: Cigarettes Number of Years Since Quit: 10; Second Hand Exposure: No; Do You Dip or Chew Tobacco: No; Hx Alcohol Use: No Hx Substance Use: No Preferred Language: Spanish Communication Ability: Effective Emergency Medical Service Manager Required: No Beliefs That Will Affect Care: None marital status: Single Current Living Situation: Alone Current Living Situation Comment: Charissa Lees @ housing Transitions How many Children do You have: 0 Other Information That Helps Us Care for You: No Feels Safe at Home: Yes Safety Concerns: Feels Safe At This Time Assistive Devices: Walker Review of Systems Review of Systems: All systems reviewed & are unremarkable except as noted in HPI & below Physical Exam Constitutional: WD/WN, vitals as above Neck: trachea midline, no thyromegaly Respiratory: normal respiratory effort, lungs clear to auscultation Cardiovascular: Rate/Rhythm: regular rate Gastrointestinal (Abdomen): normal bowel sounds, soft, nontender, no hepatosplenomegaly Skin: no rashes, warm and dry Results & Data ([facility]) Vital Signs (Past 12 Hours) Vital Signs Temp Pulse Pulse Resp BP BP Pulse Ox 02/18/22 10:37 36.7 C 86 16 126/83 98 02/18/22 09:39 36.6 C 72 19 126/80 99 02/18/22 09:30 126/80 02/18/22 09:29 77 19 100 02/18/22 09:20 75 23 100 02/18/22 09:10 71 16 99 02/18/22 09:00 80 18 120/74 02/18/22 08:50 94 H 26 H 100 02/18/22 08:47 79 19 126/68 100 02/18/22 08:40 81 17 99 02/18/22 08:30 82 21 126/68 100 02/18/22 08:20 82 19 100 02/18/22 08:19 87 27 H 117/73 100 02/18/22 08:17 36.4 C L 73 20 117/73 100 02/18/22 08:10 84 15 100 02/18/22 08:03 78 20 111/70 100 02/18/22 08:02 36.4 C L 74 20 111/70 98 02/18/22 08:00 78 23 112/65 100 02/18/22 07:50 84 19 96 02/18/22 07:47 36.5 C 79 23 117/71 100 02/18/22 07:46 95 H 17 117/71 98 02/18/22 07:40 84 29 H 100 02/18/22 07:30 94 H 37 H 100 02/18/22 07:20 74 21 100 02/18/22 07:10 79 15 99 02/18/22 07:00 79 12 100 02/18/22 06:50 76 17 90 02/18/22 06:40 69 16 02/18/22 06:30 76 19 92 02/18/22 06:00 86 13 100 02/18/22 05:30 93 H 6 L 100 02/18/22 05:08 88 13 124/70 100 02/18/22 04:57 90 18 124/70 124/70 98 Laboratory Results 02/18/22 02/18/22 02/18/22 Range/Units Unknown 06:05 06:05 WBC (4.8-10.8) K/uL RBC (4.7-6.1) M/uL Hgb (14.0-18.0) g/dL Hct (42-52) % MCV (80-100) fL MCH (25-34) pg MCHC (32-36) g/dL RDW Std Deviation (36.4-46.3) fL RDW Coeff of Dante (11.5-14.5) % Plt Count (130-400) K/uL MPV (7.4-10.4) fL Immature Gran % (Auto) % Neut % (Auto) % Lymph % (Auto) % [place] % (Auto) % Eos % (Auto) % Baso % (Auto) % Neut # (Auto) (1.4-6.5) K/uL Lymph # (Auto) (1.2-3.4) K/uL [place] # (Auto) (0.11-0.59) K/uL Eos # (Auto) (0-0.5) K/uL Baso # (Auto) (0-0.2) K/uL Immature Gran # (Auto) (0.00-0.02) K/uL RBC Morphology PT (9.0-12.0) Seconds INR (0.9-1.1) Sodium (136-145) mmol/L Potassium (3.5-5.1) mmol/L Chloride (98-107) mmol/L Carbon Dioxide (21-32) mmol/L Anion Gap (3-11) BUN (6-23) mg/dl Creatinine (0.6-1.4) mg/dl Est Cr Clr Drug Dosing ml/min Est GFR ( Amer) ml/min Est GFR (Non-Af Amer) ml/min BUN/Creatinine Ratio (10-20) Glucose (70-99(Fasting)) mg/dl Calcium (8.5-10.1) mg/dl Magnesium (1.7-2.4) mg/dl Total Bilirubin (0.2-1.0) mg/dl AST (13-39) U/L ALT (7-52) U/L Alkaline Phosphatase (34-104) U/L Troponin I (0-0.04) ng/ml C-Reactive Protein 6.36 H (0-0.5) mg/dl Total Protein (6.0-8.3) gm/dl Albumin (3.4-5.0) gm/dl Globulin (2.5-4.0) gm/dl Albumin/Globulin Ratio (0.9-2) Lipase (11-82) U/L SARS-CoV-2, RNA, NAAT NEGATIVE (NEGATIVE) Blood Type O Positive Antibody Screen NEGATIVE Crossmatch See Detail 02/18/22 02/18/22 02/18/22 Range/Units 06:05 06:05 06:05 WBC 10.99 H (4.8-10.8) K/uL RBC 2.17 L (4.7-6.1) M/uL Hgb 6.0 L* (14.0-18.0) g/dL Hct 19.5 L* (42-52) % MCV 89.9 (80-100) fL MCH 27.6 (25-34) pg MCHC 30.8 L (32-36) g/dL RDW Std Deviation 48.6 H (36.4-46.3) fL RDW Coeff of Dante 14.6 H (11.5-14.5) % Plt Count 318 (130-400) K/uL MPV 8.4 (7.4-10.4) fL Immature Gran % (Auto) 0.4 % Neut % (Auto) 86.3 % Lymph % (Auto) 6.3 % [place] % (Auto) 6.3 % Eos % (Auto) 0.6 % Baso % (Auto) 0.1 % Neut # (Auto) 9.49 H (1.4-6.5) K/uL Lymph # (Auto) 0.69 L (1.2-3.4) K/uL [place] # (Auto) 0.69 H (0.11-0.59) K/uL Eos # (Auto) 0.07 (0-0.5) K/uL Baso # (Auto) 0.01 (0-0.2) K/uL Immature Gran # (Auto) 0.04 H (0.00-0.02) K/uL RBC Morphology Unremarkable PT 12.1 H (9.0-12.0) Seconds INR 1.1 (0.9-1.1) Sodium 143 (136-145) mmol/L Potassium 3.7 (3.5-5.1) mmol/L Chloride 109 H (98-107) mmol/L Carbon Dioxide 26 (21-32) mmol/L Anion Gap 8 (3-11) BUN 20 (6-23) mg/dl Creatinine 0.85 (0.6-1.4) mg/dl Est Cr Clr Drug Dosing 63.8 ml/min Est GFR ( Amer) 103.0 ml/min Est GFR (Non-Af Amer) 88.9 ml/min BUN/Creatinine Ratio 23.5 H (10-20) Glucose 110 H (70-99(Fasting)) mg/dl Calcium 8.1 L (8.5-10.1) mg/dl Magnesium 1.6 L (1.7-2.4) mg/dl Total Bilirubin 0.3 (0.2-1.0) mg/dl AST 7 L (13-39) U/L ALT 4 L (7-52) U/L Alkaline Phosphatase 80 (34-104) U/L Troponin I 0.03 (0-0.04) ng/ml C-Reactive Protein (0-0.5) mg/dl Total Protein 5.5 L (6.0-8.3) gm/dl Albumin 2.7 L (3.4-5.0) gm/dl Globulin 2.8 (2.5-4.0) gm/dl Albumin/Globulin Ratio 1.0 (0.9-2) Lipase 9 L (11-82) U/L SARS-CoV-2, RNA, NAAT (NEGATIVE) Blood Type Antibody Screen Crossmatch (1) Hematemesis Nausea presence: with nausea Qualified Code(s): K92.0 - Hematemesis
[2022-02-18] MEDS ORDERED: FUROSEMIDE INJ 20 MG/2 ML VIAL IV SCH (11:00)
[2022-02-18] MEDS: HYDROCODONE/ACETAMINOPHEN 7.5/325MG TAB PO PRN ×4 (11:07→23:15)
[2022-02-18] MEDS: ONDANSETRON INJ 2 MG/ML 2 ML VIAL IV PRN (11:07)
--- NOTE | 2022-02-18 11:28 | CT Scan Report ---
ABDOMEN AND PELVIS CT WITH IV CONTRAST CT DOSE: 348.25 mGycm HISTORY: GI bleed. Left upper quadrant pain. TECHNIQUE: Multiaxial CT images of the abdomen and pelvis were performed following the use of intrave nous contrast. A dose lowering technique was utilized adhering to the principles of ALARA. COMPARISON STUDY: Abdomen and pelvis CT 12/16/2021. FINDINGS: There is persistent destructive change at the L2-L3 disc space. There is endplate sclerosis developing at this level. Finds are consistent with acute on chronic discitis/osteomyelitis. There i s paravertebral inflammatory change/soft tissue thickening at this level, unchanged. However, there i s now soft tissue thickening/inflammatory change extending into the periaortic location distal to the L2-L3 level which extends to the aortic bifurcation. This is highly suspicious for extension of the infectious/inflammatory change from the L2-L3 level into the retroperitoneum with an associated aorti tis. 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 There is a subtle area of hypodensity within the left para-aortic location on image 167 within this periaortic soft tissue thi ckening which measures 13 x 10 mm. This is suspicious for a small periaortic abscess. Extensive calci fied plaque within the abdominal aorta and iliac arteries, unchanged. There is approximately 50% sten osis at the takeoff of the left common iliac artery likely due to the calcified plaque. High-grade st enosis with distal occlusion of the right internal iliac artery. This is likely chronic. Persistent s oft tissue thickening within the right inguinal region likely representing scarring. Right lower extr emity soft tissue edema and skin thickening appears to be chronic is likely due to the suspected lunchroom mother reina thrombus within the infrarenal IVC and iliac veins. Multiple venous collaterals again noted withi n the left-sided abdominal wall. 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 This remains unchanged. Mild thoracic para-aortic lymphadenopathy remains stable. The h eart remains enlarged. There is a trace pericardial effusion and a trace right pleural effusion. Mild interlobular septal thickening at the lung bases favors mild congestive change. Ground glass densiti es at the lung bases posteriorly consistent with mild dependent change. No pneumoperitoneum. No pneum atosis. The right sacroiliac joint is fused. No hepatic or splenic masses. There is mild central intr ahepatic bile duct dilatation. Trace pericholecystic fluid. No gallbladder wall thickening. Multiple punctate calcifications within the uncinate process of the pancreas consistent with chronic pancreati tis. Mildly dilated main pancreatic duct measuring up to 5 mm. 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 Atrophic right kidney, unchanged. Interval de velopment of mild left-sided hydronephrosis to the level of the retroperitoneal soft tissue abnormali ty which appears to result in the ureteral obstruction. The bladder is unremarkable. Moderate to larg e amount of well-formed stool seen within the colon. Mildly dilated gas and fluid-filled loops of sma ll bowel seen within the abdomen. This may represent a mild ileus. No transition point to suggest a s mall bowel obstruction. Stomach is also mildly distended and fluid-filled. IMPRESSION: 1. Redemonstration of the acute chronic L2-L3 discitis/osteomyelitis with endplate erosive changes.. 2. There has been interval development of of abnormal soft tissue thickening/inflammatory change surr ounding the infrarenal abdominal aorta. This is distal to the L2-L3 discitis/osteomyelitis and theref ore favors extension of the infectious/inflammatory change into the adjacent retroperitoneum resultin g in an aortitis. There is a 13 x 10 mm hypodense focus within the left periaortic soft tissue thicke loly abutting the distal abdominal aorta which is suspicious for a small periaortic abscess. There is also been interval development of an 8 mm saccular aneurysm extending along the left side of the inf rarenal abdominal aorta which is highly suspicious for a mycotic aneurysm. 3. Interval development of mild left-sided hydroureteronephrosis to the level of the proximal to mid left ureter as it enters the left retroperitoneal/periaortic soft tissue abnormality. 4. Mildly dilated gas-filled loops of large or small bowel seen throughout the abdomen. No definite t ransition point to suggest a small bowel obstruction. This may represent an ileus. 5. The stomach is also mildly distended and fluid-filled. 6. Additional findings as described above ACT 112: Negative or not required by law. Electronically signed by: Srikanth Ferrell M.D. 02/18/2022 11:27 AM
--- NOTE | 2022-02-18 14:43 | Electrocardiogram Report ---
Test Reason : Blood Pressure : / mmHG Vent. Rate : 095 BPM Atrial Rate : 095 BPM P-R Int : 138 ms QRS Dur : 098 ms QT Int : 432 ms P-R-T Axes : 014 066 -83 degrees QTc Int : 542 ms Sinus rhythm with Premature ventricular complexes Minimal voltage criteria for LVH, may be normal variant Prolonged QT Abnormal ECG When compared with ECG of 08-JAN-2022 15:26, Sinus rhythm has replaced Atrial fibrillation T wave inversion now evident in Inferior leads T wave inversion no longer evident in Lateral leads QT has lengthened Confirmed by Darian Garcia ([id number]) on 02/18/2022 2:43:42 PM Referred By: REFERRED SELF Confirmed By:Darian Garcia
[2022-02-18 15:39] LABS: Hematocrit (blood only) 22.6 % (42-52); Hemoglobin 7.4 g/dL (14.0-18.0)
[2022-02-18] MEDS ORDERED: LIDOCAINE 5% 1 PATCH TD SCH (21:00)
[2022-02-18 21:45] LABS: Hematocrit (blood only) 22.9 % (42-52); Hemoglobin 7.4 g/dL (14.0-18.0)
[2022-02-19] MEDS: PANTOprazole 40 MG in DEXTROSE 5% 100 ML IV SCH ×5 (01:43→22:47)
[2022-02-19] MEDS: HYDROCODONE/ACETAMINOPHEN 7.5/325MG TAB PO PRN ×4 (03:49→21:08)
[2022-02-19] MEDS: LEVOTHYROXINE SODIUM 50 MCG TABLET PO SCH (05:44)
[2022-02-19] MEDS: SODIUM CHLORIDE 0.9% 1000ML 1,000 ML IV SCH (06:50)
[2022-02-19 06:51] LABS: Hematocrit (blood only) 22.2 % (42-52); Hemoglobin 7.2 g/dL (14.0-18.0); Mean Corpuscular Hgb Conc 32.4 g/dL (32-36); Mean Corpuscular Volume 89.5 fL (80-100); Mean Platelet Volume 8.7 fL (7.4-10.4); Platelet Count 222 K/uL (130-400); RDW Coefficient of Variation 14.6 % (11.5-14.5); RDW Standard Deviation 48.4 fL (36.4-46.3); Red Blood Count 2.48 M/uL (4.7-6.1); White Blood Count 7.42 K/uL (4.8-10.8)
[2022-02-19 07:25] LABS: Albumin Level 2.8 gm/dl (3.4-5.0); BUN Creatinine Ratio 41.8 (10-20); Bilirubin,Total 0.8 mg/dl (0.2-1.0); Calcium 7.8 mg/dl (8.5-10.1); Creatinine Clr Calc Pharmacy 70.8 ml/min; Est GFR (African American) 106.2 ml/min; Est GFR (Non-African American) 91.6 ml/min; Globulin 2.8 gm/dl (2.5-4.0); Magnesium 1.7 mg/dl (1.7-2.4); Potassium 3.4 mmol/L (3.5-5.1); Total Protein 5.6 gm/dl (6.0-8.3)
[2022-02-19] MEDS: FERROUS SULFATE 325 MG TAB PO SCH (07:32)
[2022-02-19] MEDS: ATORVASTATIN 20 MG TAB PO SCH (07:32)
[2022-02-19] MEDS ORDERED: SODIUM CHLORIDE 0.9% 250 ML IV PRN (07:41)
--- NOTE | 2022-02-19 10:59 | XRay Report ---
XR chest 1V portable HISTORY: 71 years-old Male r/o CHF, pulmonary edema acute shortness of breath with pulmonary edema COMPARISON: Chest radiograph 02/10/2022, 12/12/2021, CTA chest 12/06/2020 TECHNIQUE: Portable AP view of the chest FINDINGS: The cardiac silhouette is enlarged. 2.8 cm right paratracheal nodular opacity appears similar to the comparison CTA of the chest and likely represents a dilated azygos vein. Pulmonary vascular congestio n. Trace pleural effusions with mild bibasilar opacities. Ill-defined opacities of the right midlung are new from prior. The bones appear grossly intact. IMPRESSION: 1. Cardiomegaly with pulmonary vascular congestion. 2. 2.8 cm right paratracheal opacity is suggestive of a dilated azygos vein. 3. Trace pleural effusions with mild bibasilar atelectasis. 4. Ill-defined opacity of the right midlung may be artifactual or represent a subtle pneumonia. ACT 112: Negative or not required by law. The above report was generated using voice recognition software. It may contain grammatical, syntax o r spelling errors. Electronically signed by: Sunil Dorantes M.D. 02/19/2022 10:57 AM
[2022-02-19] MEDS: ONDANSETRON INJ 2 MG/ML 2 ML VIAL IV PRN (14:11)
--- NOTE | 2022-02-19 14:41 | Hospitalist Progress Note ---
Date of Service February 19, 2022 Assessment & Plan (1) Hematemesis: Plan: - Admit to tele - Consult GI for possible endoscopy -during the patient's previous admission he was refusing endoscopy procedure and therefore was treated conservatively with Protonix. At this point it is hard to say if he has been compliant with taking pantoprazole as an outpatient due to his history of noncompliance. At this time he is hesitant to allow scope and feels that we will "ripped the scab off and he will bleed to ". Discussion was held regarding ability to evaluate the source of bleed and possible cauterize what is bleeding. Pt does not exhibit understanding of his condition. Will defer further workup to GI regarding such procedure - Continue protonix gtt for now - Hgb of 6 on admission, transfusing 2 U PRBCs today, give lasix 20 mg IV in between due to EF of 20%. - Repeat hgb level routinely - Cont PO iron - Keep NPO for now - WBC is noted to be 10.99 with a left shift, will follow, possibly reactive. No acute signs of infectious etiology, afebrile. Recently was evaluated by ID for osteomyelitis and discitis of L2-L3 during his last admission and completed 7 weeks and 3 days of cefepime, and 6 week course of daptomycin 8 mg/kg. As of 02/02 pt was taken off abx per ID recs. Will recheck CRP today. Was mentioned to have bone biopsy in the future if this remained elevated. Previously pt refused biopsy. 02/19 Had 3 very small bowel movements today, black as per patient Blood pressure stable Hemoglobin still at 7.2 this morning 1 unit packed RBCs ordered Repeat hemoglobin this afternoon Continue Protonix drip, n.p.o. (2) Anemia due to blood loss: Plan: - Secondary due to above -Transfusion as above, trend hemoglobin (3) Ischemic cardiomyopathy: Plan: - Unknown if the patient is taking his medications with history of noncompliance -We will hold Lasix, spironolactone and metoprolol secondary to acute GI bleed -Previously has not been a good candidate for ICD placement due to medication noncompliance and paranoid behavior -Echo reviewed and unchanged, has EF of 20% -Appears hypovolemic currently-transfusing as above, give lasix in between units of blood 02/19/2022 Blood pressure stable Positive mild chest discomfort: Possible demand ischemia from anemia Trend troponins, echo ordered, EKG no signs of acute ischemia or infarct Resume metoprolol Will give Lasix 20 mg IV today (4) Paroxysmal atrial fibrillation: Plan: - Currently in NSR, anticoagulation contraindicated secondary to GI bleed as above Resume metoprolol (5) HTN (hypertension): Plan: Resume metoprolol (6) Paranoid schizophrenia: Plan: -Mental status at baseline -CM to assist with discharge planning (7) Ambulatory dysfunction: Plan: -PT/OT consults (8) CKD (chronic kidney disease), stage III: Plan: -Chronic, stable (9) COPD (chronic obstructive pulmonary disease): Plan: -History of such, chronic, stable, does not appear to be in an acute COPD exacerbation at this time DVT PPx: - teds, scds, no anticoagulation in the setting of acute GI bleed CODE: Full code Dispo: Pending plan of care discussed with patient in detail and at length all questions answered he is understanding, agreeable, comfortable with the plan of care Admission and Anticipated Discharge Date Admission Date: February 18, 2022 Subjective Follow-up for acute GI bleed, etc. Seen resting in bed, comfortable, not in distress Sleeping but easily awakened States he feels about the same as yesterday Reports epigastric/chest discomfort, mild, no shortness of breath, palpitations, dizziness, nausea Had melena around 6 PM yesterday, none since No other symptoms Review of Systems Review of Systems: all noted and negative except for above Physical Exam Physical Exam: General- oriented x 3, not in distress, speaks in sentences with no effort or accessory muscle use Eyes- anicteric Neck- no JVD Lungs- clear breath sounds bilaterally, no rales/wheezes Heart- normal rate, regular rhythm; no murmurs Abdomen- normal bowel sounds, nondistended, soft, mild epigastric tenderness Extremities- no pretibial edema, no calf tenderness Neuro- alert, oriented x 3; no gross focal neurologic deficits Skin- warm & dry Results & Data Results & [facility] ([facility]) Vital Signs (Past 12 Hours) Vital Signs Temp Pulse Pulse Resp BP BP Pulse Ox 02/19/22 13:11 36.8 C 88 16 133/77 02/19/22 12:41 36.6 C 93 H 16 147/76 H 98 02/19/22 12:26 36.6 C 79 16 119/74 02/19/22 12:17 36.7 C 86 16 122/69 02/19/22 12:00 36.4 C L 79 16 113/70 99 02/19/22 11:35 36.4 C L 91 H 16 135/80 98 02/19/22 08:05 36.6 C 87 18 129/77 99 02/19/22 03:44 36.3 C L 92 H 18 141/84 H 99 all noted and reviewed including below (1) Hematemesis Nausea presence: with nausea Qualified Code(s): K92.0 - Hematemesis (2) COPD (chronic obstructive pulmonary disease) COPD type: unspecified COPD Qualified Code(s): J44.9 - Chronic obstructive pulmonary disease, unspecified
[2022-02-19] MEDS ORDERED: FUROSEMIDE INJ 20 MG/2 ML VIAL IV ONE (14:42)
[2022-02-19 17:20] LABS: Hematocrit (blood only) 27.3 % (42-52); Hemoglobin 8.7 g/dL (14.0-18.0)
[2022-02-19] MEDS: METOPROLOL SUCC 25MG EXT REL TAB PO SCH (20:06)
[2022-02-20] MEDS: HYDROCODONE/ACETAMINOPHEN 7.5/325MG TAB PO PRN ×4 (01:01→20:15)
[2022-02-20] MEDS: PANTOprazole 40 MG in DEXTROSE 5% 100 ML IV SCH ×5 (03:25→22:51)
[2022-02-20] MEDS: LEVOTHYROXINE SODIUM 50 MCG TABLET PO SCH (07:02)
[2022-02-20 07:08] LABS: Hematocrit (blood only) 22.6 % (42-52); Hemoglobin 7.3 g/dL (14.0-18.0); Mean Corpuscular Hemoglobin 28.2 pg (25-34); Mean Corpuscular Hgb Conc 32.3 g/dL (32-36); Mean Corpuscular Volume 87.3 fL (80-100); Mean Platelet Volume 8.4 fL (7.4-10.4); Platelet Count 211 K/uL (130-400); RDW Coefficient of Variation 16.8 % (11.5-14.5); RDW Standard Deviation 54.1 fL (36.4-46.3); Red Blood Count 2.59 M/uL (4.7-6.1); White Blood Count 7.22 K/uL (4.8-10.8)
[2022-02-20] MEDS ORDERED: FUROSEMIDE INJ 20 MG/2 ML VIAL IV ONE ×2 (07:27→13:05)
[2022-02-20] MEDS ORDERED: SODIUM CHLORIDE 0.9% 250 ML IV PRN (07:27)
[2022-02-20 07:34] LABS: Albumin Level 2.7 gm/dl (3.4-5.0); BUN Creatinine Ratio 30.1 (10-20); Bilirubin,Total 0.8 mg/dl (0.2-1.0); Calcium 7.9 mg/dl (8.5-10.1); Creatinine Clr Calc Pharmacy 53.5 ml/min; Est GFR (African American) 85.5 ml/min; Est GFR (Non-African American) 73.8 ml/min; Globulin 2.6 gm/dl (2.5-4.0); Potassium 3.7 mmol/L (3.5-5.1); Total Protein 5.3 gm/dl (6.0-8.3)
[2022-02-20] MEDS: METOPROLOL SUCC 25MG EXT REL TAB PO SCH ×2 (08:05→20:19)
[2022-02-20] MEDS: LIDOCAINE 5% 1 PATCH TD SCH (08:07)
[2022-02-20] MEDS: FERROUS SULFATE 325 MG TAB PO SCH (08:11)
[2022-02-20] MEDS: ATORVASTATIN 20 MG TAB PO SCH (08:11)
[2022-02-20] MEDS: SUCRALFATE 1 GM/10 ML UDC PO SCH ×4 (08:12→20:13)
--- NOTE | 2022-02-20 09:57 | Electrocardiogram Report ---
Test Reason : Blood Pressure : / mmHG Vent. Rate : 088 BPM Atrial Rate : 088 BPM P-R Int : 170 ms QRS Dur : 112 ms QT Int : 402 ms P-R-T Axes : 081 066 033 degrees QTc Int : 486 ms Normal sinus rhythm Poor R wave progression, consider anterior ND vs. lead placement vs. LVH Voltage criteria for left ventricular hypertrophy Nonspecific T wave abnormality Abnormal ECG When compared with ECG of 18-FEB-2022 05:31, Premature ventricular complexes are no longer Present T wave inversion no longer evident in Inferior leads QT has shortened Confirmed by Nikhil May ([id number]) on 02/20/2022 9:57:01 AM Referred By: REFERRED SELF Confirmed By:Nikhil May
--- NOTE | 2022-02-20 12:24 | Hospitalist Progress Note ---
Date of Service February 20, 2022 Assessment & Plan (1) Hematemesis: Plan: - Admit to tele - Consult GI for possible endoscopy -during the patient's previous admission he was refusing endoscopy procedure and therefore was treated conservatively with Protonix. At this point it is hard to say if he has been compliant with taking pantoprazole as an outpatient due to his history of noncompliance. At this time he is hesitant to allow scope and feels that we will "ripped the scab off and he will bleed to ". Discussion was held regarding ability to evaluate the source of bleed and possible cauterize what is bleeding. Pt does not exhibit understanding of his condition. Will defer further workup to GI regarding such procedure - Continue protonix gtt for now - Hgb of 6 on admission, transfusing 2 U PRBCs today, give lasix 20 mg IV in between due to EF of 20%. - Repeat hgb level routinely - Cont PO iron - Keep NPO for now - WBC is noted to be 10.99 with a left shift, will follow, possibly reactive. No acute signs of infectious etiology, afebrile. Recently was evaluated by ID for osteomyelitis and discitis of L2-L3 during his last admission and completed 7 weeks and 3 days of cefepime, and 6 week course of daptomycin 8 mg/kg. As of 02/02 pt was taken off abx per ID recs. Will recheck CRP today. Was mentioned to have bone biopsy in the future if this remained elevated. Previously pt refused biopsy. 4/2 Had 2-3 very small bowel movements today, dark Blood pressure stable Hemoglobin still at 7.3 this morning 2 units packed RBCs ordered Repeat hemoglobin this afternoon Continue Protonix drip, clear liquids still declines EGD despite extensive discussion regarding risks of not having it performed (2) Anemia due to blood loss: Plan: - Secondary due to above - Transfusion as above, trend hemoglobin (3) Ischemic cardiomyopathy: Plan: - Unknown if the patient is taking his medications with history of noncompliance -We will hold Lasix, spironolactone and metoprolol secondary to acute GI bleed -Previously has not been a good candidate for ICD placement due to medication noncompliance and paranoid behavior -Echo reviewed and unchanged, has EF of 20% -Appears hypovolemic currently-transfusing as above, give lasix in between units of blood 02/20/2022 Blood pressure stable Positive mild chest discomfort: Possible demand ischemia from anemia troponin 0.3 x 2 echo noted Resume metoprolol Will give Lasix 20 mg IV today (4) Paroxysmal atrial fibrillation: Plan: - Currently in NSR, anticoagulation contraindicated secondary to GI bleed as above Resume metoprolol (5) HTN (hypertension): Plan: Resume metoprolol (6) Paranoid schizophrenia: Plan: -Mental status at baseline -CM to assist with discharge planning (7) Ambulatory dysfunction: Plan: -PT/OT consults (8) CKD (chronic kidney disease), stage III: Plan: -Chronic, stable (9) COPD (chronic obstructive pulmonary disease): Plan: -History of such, chronic, stable, does not appear to be in an acute COPD exacerbation at this time DVT PPx: - teds, scds, no anticoagulation in the setting of acute GI bleed CODE: Full code Dispo: Pending plan of care discussed with patient in detail and at length all questions answered he is understanding, agreeable, comfortable with the plan of care Admission and Anticipated Discharge Date Admission Date: February 18, 2022 Subjective ff up for GI bleed, etc seen resting in bed, not in distress comfortable had small BMs today, somewhat dark as per JENA Pelayo chest pain has resolved no dyspnea, dizziness, palpitations mild epigastric discomfort no nausea/vomiting no other symptoms still declines EGD despite extensive discussion regarding risks of not having it performed Review of Systems Review of Systems: all noted and negative except for above Physical Exam Physical Exam: General- oriented x 3, not in distress, speaks in sentences with no effort or accessory muscle use Eyes- anicteric Neck- no JVD Lungs- clear breath sounds bilaterally Heart- normal rate, regular rhythm; no murmurs Abdomen- normal bowel sounds, nondistended, soft, very mild epigastric tenderness Extremities- no pretibial edema, no calf tenderness Neuro- alert, oriented x 3; no gross focal neurologic deficits Skin- warm & dry Results & Data Results & Data ([facility]) Vital Signs (Past 12 Hours) Vital Signs Temp Pulse Pulse Resp BP BP BP 02/20/22 11:33 36.8 C 83 16 143/89 H 02/20/22 11:00 36.5 C 69 16 118/69 02/20/22 10:33 36.6 C 78 16 119/75 02/20/22 10:03 36.7 C 79 18 115/69 02/20/22 09:48 36.7 C 79 18 115/69 02/20/22 09:33 36.4 C L 69 16 112/49 L 02/20/22 09:28 36.4 C L 69 16 112/49 L 02/20/22 07:00 36.5 C 68 86 18 124/76 02/20/22 03:26 36.5 C 64 17 115/70 Pulse Ox 02/20/22 11:33 02/20/22 11:00 97 02/20/22 10:33 96 02/20/22 10:03 98 02/20/22 09:48 98 02/20/22 09:33 98 02/20/22 09:28 98 02/20/22 07:00 96 02/20/22 03:26 98 all noted and reviewed including below (1) Hematemesis Nausea presence: with nausea Qualified Code(s): K92.0 - Hematemesis (2) COPD (chronic obstructive pulmonary disease) COPD type: unspecified COPD Qualified Code(s): J44.9 - Chronic obstructive pulmonary disease, unspecified
[2022-02-20 17:13] LABS: Hematocrit (blood only) 31.6 % (42-52); Hemoglobin 10.5 g/dL (14.0-18.0)
[2022-02-21] MEDS: HYDROCODONE/ACETAMINOPHEN 7.5/325MG TAB PO PRN ×5 (00:45→20:23)
[2022-02-21] MEDS: PANTOprazole 40 MG in DEXTROSE 5% 100 ML IV SCH ×4 (03:42→19:48)
[2022-02-21] MEDS: LEVOTHYROXINE SODIUM 50 MCG TABLET PO SCH (04:50)
[2022-02-21 06:36] LABS: Hematocrit (blood only) 28.9 % (42-52); Hemoglobin 9.4 g/dL (14.0-18.0); Mean Corpuscular Hemoglobin 28.1 pg (25-34); Mean Corpuscular Hgb Conc 32.5 g/dL (32-36); Mean Corpuscular Volume 86.3 fL (80-100); Mean Platelet Volume 8.8 fL (7.4-10.4); Platelet Count 201 K/uL (130-400); RDW Coefficient of Variation 16.8 % (11.5-14.5); RDW Standard Deviation 53.5 fL (36.4-46.3); Red Blood Count 3.35 M/uL (4.7-6.1); White Blood Count 6.58 K/uL (4.8-10.8)
[2022-02-21 07:06] LABS: Albumin Level 2.8 gm/dl (3.4-5.0); Bilirubin,Total 1.3 mg/dl (0.2-1.0); Calcium 7.9 mg/dl (8.5-10.1); Est GFR (African American) 84.5 ml/min; Est GFR (Non-African American) 72.9 ml/min; Globulin 2.8 gm/dl (2.5-4.0); Magnesium 1.5 mg/dl (1.7-2.4); Potassium 3.1 mmol/L (3.5-5.1); Total Protein 5.6 gm/dl (6.0-8.3)
[2022-02-21] MEDS: ATORVASTATIN 20 MG TAB PO SCH (08:23)
[2022-02-21] MEDS: FERROUS SULFATE 325 MG TAB PO SCH (08:23)
[2022-02-21] MEDS: LIDOCAINE 5% 1 PATCH TD SCH (08:23)
[2022-02-21] MEDS: METOPROLOL SUCC 25MG EXT REL TAB PO SCH ×2 (08:23→19:47)
[2022-02-21] MEDS: SUCRALFATE 1 GM/10 ML UDC PO SCH ×4 (08:24→19:45)
[2022-02-21] MEDS ORDERED: POTASSIUM CHLORIDE CRTAB 20 MEQ TABCR PO SCH (09:00)
[2022-02-21] MEDS: MAGNESIUM OXIDE 400 MG TAB PO SCH ×2 (09:21→19:46)
[2022-02-21] MEDS: POTASSIUM CHLORIDE PWD 20 MEQ PACK PO SCH ×2 (11:32→19:46)
[2022-02-21 15:53] LABS: Hematocrit (blood only) 32.9 % (42-52); Hemoglobin 10.4 g/dL (14.0-18.0)
--- NOTE | 2022-02-21 17:00 | Hospitalist Progress Note ---
Date of Service February 21, 2022 Assessment & Plan (1) Hematemesis: Plan: - Admit to tele - Consult GI for possible endoscopy -during the patient's previous admission he was refusing endoscopy procedure and therefore was treated conservatively with Protonix. At this point it is hard to say if he has been compliant with taking pantoprazole as an outpatient due to his history of noncompliance. At this time he is hesitant to allow scope and feels that we will "ripped the scab off and he will bleed to ". Discussion was held regarding ability to evaluate the source of bleed and possible cauterize what is bleeding. Pt does not exhibit understanding of his condition. Will defer further workup to GI regarding such procedure - Continue protonix gtt for now - Hgb of 6 on admission, transfusing 2 U PRBCs today, give lasix 20 mg IV in between due to EF of 20%. - Repeat hgb level routinely - Cont PO iron - Keep NPO for now - WBC is noted to be 10.99 with a left shift, will follow, possibly reactive. No acute signs of infectious etiology, afebrile. Recently was evaluated by ID for osteomyelitis and discitis of L2-L3 during his last admission and completed 7 weeks and 3 days of cefepime, and 6 week course of daptomycin 8 mg/kg. As of 02/02 pt was taken off abx per ID recs. Will recheck CRP today. Was mentioned to have bone biopsy in the future if this remained elevated. Previously pt refused biopsy. 02/21/2022 Only 1 episode of melena Hemoglobin stable at 10.4 Continue Protonix, sucralfate, clear liquids still declines EGD despite extensive discussion regarding risks of not having it performed (2) Anemia due to blood loss: Plan: - Secondary due to above - Transfusion as above, trend hemoglobin (3) Ischemic cardiomyopathy: Plan: - Unknown if the patient is taking his medications with history of noncompliance -We will hold Lasix, spironolactone and metoprolol secondary to acute GI bleed -Previously has not been a good candidate for ICD placement due to medication noncompliance and paranoid behavior -Echo reviewed and unchanged, has EF of 20% -Appears hypovolemic currently-transfusing as above, give lasix in between units of blood 02/21/2022 Blood pressure stable Chest discomfort resolved Positive mild chest discomfort: Possible demand ischemia from anemia troponin 0.3 x 2 echo noted ResumeD metoprolol (4) Paroxysmal atrial fibrillation: Plan: - Currently in NSR, anticoagulation contraindicated secondary to GI bleed as above Resume metoprolol (5) HTN (hypertension): Plan: Resume metoprolol (6) Paranoid schizophrenia: Plan: -Mental status at baseline -CM to assist with discharge planning (7) Ambulatory dysfunction: Plan: -PT/OT consults (8) CKD (chronic kidney disease), stage III: Plan: -Chronic, stable (9) COPD (chronic obstructive pulmonary disease): Plan: -History of such, chronic, stable, does not appear to be in an acute COPD exacerbation at this time DVT PPx: - teds, scds, no anticoagulation in the setting of acute GI bleed CODE: Full code Dispo: Pending plan of care discussed with patient in detail and at length all questions answered he is understanding, agreeable, comfortable with the plan of care Admission and Anticipated Discharge Date Admission Date: February 18, 2022 Subjective ff up for gi bleed, anemia, etc seen resting in bed, comfortable States he feels better today Had 1 episode of black stools yesterday, none today No chest pain Very mild epigastric pain Note shortness of breath, dizziness, palpitations Tolerating clear diet well No other symptoms Review of Systems Review of Systems: all noted and negative except for above Physical Exam Physical Exam: General- oriented x 3, not in distress, speaks in sentences with no effort or accessory muscle use Eyes- anicteric Neck- no JVD Lungs- clear breath sounds bilaterally No crackles or wheezing Heart- normal rate, regular rhythm; no murmurs Abdomen- normal bowel sounds, nondistended, soft, nontender Extremities- no pretibial edema, no calf tenderness Neuro- alert, oriented x 3; no gross focal neurologic deficits Skin- warm & dry Results & Data Results & Data ([facility]) Vital Signs (Past 12 Hours) Vital Signs Temp Pulse Pulse Resp BP Pulse Ox 02/21/22 15:49 36.4 C L 71 17 144/82 H 97 02/21/22 14:17 66 02/21/22 11:03 36.4 C L 61 16 143/80 H 98 02/21/22 07:37 69 02/21/22 07:11 36.5 C 70 16 116/69 95 all noted and reviewed including below (1) COPD (chronic obstructive pulmonary disease) COPD type: unspecified COPD Qualified Code(s): J44.9 - Chronic obstructive pulmonary disease, unspecified (2) Hematemesis Nausea presence: with nausea Qualified Code(s): K92.0 - Hematemesis
[2022-02-22] MEDS: HYDROCODONE/ACETAMINOPHEN 7.5/325MG TAB PO PRN ×5 (00:32→22:22)
[2022-02-22] MEDS: PANTOprazole 40 MG in DEXTROSE 5% 100 ML IV SCH ×4 (00:33→16:49)
[2022-02-22] MEDS: LEVOTHYROXINE SODIUM 50 MCG TABLET PO SCH (05:40)
[2022-02-22] MEDS: ONDANSETRON INJ 2 MG/ML 2 ML VIAL IV PRN ×4 (08:01→22:22)
[2022-02-22] MEDS: METOPROLOL SUCC 25MG EXT REL TAB PO SCH ×2 (09:40→21:27)
[2022-02-22] MEDS: FERROUS SULFATE 325 MG TAB PO SCH (09:41)
[2022-02-22] MEDS: SUCRALFATE 1 GM/10 ML UDC PO SCH ×4 (09:41→21:27)
[2022-02-22] MEDS: ATORVASTATIN 20 MG TAB PO SCH (09:42)
[2022-02-22] MEDS: MAGNESIUM OXIDE 400 MG TAB PO SCH ×2 (09:42→21:27)
[2022-02-22] MEDS: LIDOCAINE 5% 1 PATCH TD SCH (09:43)
[2022-02-22] MEDS: POTASSIUM CHLORIDE PWD 20 MEQ PACK PO SCH ×2 (09:43→21:27)
[2022-02-22 10:44] LABS: Basophils # (auto) 0.01 K/uL (0-0.2); Basophils % (auto) 0.1 %; Eosinophils # (auto) 0.09 K/uL (0-0.5); Eosinophils % (auto) 1.3 %; Hematocrit (blood only) 32.1 % (42-52); Hemoglobin 10.2 g/dL (14.0-18.0); Immature Granulocytes # (auto) 0.01 K/uL (0.00-0.02); Immature Granulocytes % (auto) 0.1 %; Lymphocytes # (auto) 0.57 K/uL (1.2-3.4); Lymphocytes % (auto) 8.1 %; Mean Corpuscular Hemoglobin 27.9 pg (25-34); Mean Corpuscular Hgb Conc 31.8 g/dL (32-36); Mean Corpuscular Volume 87.9 fL (80-100); Mean Platelet Volume 8.9 fL (7.4-10.4); Monocytes # (auto) 0.63 K/uL (0.11-0.59); Neutrophils # (auto) 5.71 K/uL (1.4-6.5); Neutrophils % (auto) 81.4 %; Platelet Count 210 K/uL (130-400); RDW Coefficient of Variation 16.4 % (11.5-14.5); RDW Standard Deviation 53.2 fL (36.4-46.3); Red Blood Count 3.65 M/uL (4.7-6.1); White Blood Count 7.02 K/uL (4.8-10.8)
[2022-02-22 11:08] LABS: BUN Creatinine Ratio 22.2 (10-20); Calcium 7.9 mg/dl (8.5-10.1); Creatinine Clr Calc Pharmacy 61.2 ml/min; Est GFR (African American) 100.6 ml/min; Est GFR (Non-African American) 86.8 ml/min; Potassium 3.9 mmol/L (3.5-5.1)
--- NOTE | 2022-02-22 11:32 | CT Scan Report ---
CT SCAN OF THE ABDOMEN AND PELVIS WITHOUT IV CONTRAST CLINICAL HISTORY: Generalized abdominal pain. COMPARISON STUDY: Abdominal CT dated 02/18/2022. TECHNIQUE: CT scan of the abdomen and pelvis is performed from the lung bases to the proximal femora. Images are reviewed in the axial, sagittal, and coronal planes. IV contrast was not administered for this examination. Note that the examination was performed in significantly suboptimal fashion withou t oral and IV contrast. There is also motion artifact, as well as streak artifact from the arms which could not be elevated above the abdomen. A dose lowering technique was utilized adhering to the prin ciples of HENOK. CT DOSE: 289.21 mGy.cm FINDINGS: Lung bases: The heart is enlarged noting a small pericardial effusion. The coronary arteries are dens casey calcified. Emphysematous change is suggested. Intralobular septal thickening is noted at the lung bases. There are small pleural effusions with dependent consolidation. Liver: The unenhanced liver is normal in size and heterogeneous in attenuation. There is no intrahepa tic biliary ductal dilatation. Gallbladder: The gallbladder is distended and appears mildly thick-walled. Spleen: Normal in size and attenuation. Pancreas: The unenhanced pancreas is moderately atrophic and grossly unremarkable. Adrenal glands: Unremarkable. Kidneys: There is markedly asymmetric cortical atrophy of the right kidney as compared to the left. T here is mild left-sided hydronephrosis. Renovascular calcifications are present bilaterally. No renal calculi are clearly identified. Foci of cortical scarring are noted in the atrophic right kidney. Th ere is no evidence of contour deforming renal mass lesion. Abdominal vasculature: There is advanced atherosclerotic calcification and mild ectasia of the abdomi nal aorta. Calcification along the course of the inferior vena cava suggests chronic occlusion. This was better assessed on the prior contrast-enhanced study. Retrocrural collaterals are noted. Bowel: The gastric wall appears thickened. Circumferential wall thickening is also suggested involvin g the rectum. There is no bowel obstruction. Residual enteric contrast is noted in the colon. The marly endix is not identified and reported surgically absent. Peritoneum: There is no intraperitoneal free air or abdominal ascites. Lymphadenopathy: None. Pelvic viscera: The bladder is decompressed and appears circumferentially thick walled. There is lenka cystic infiltration. The prostate gland is diminutive and heterogeneous. Skeletal structures: The skeletal structures are osteopenic. Again seen is evidence of presumed acute on chronic osteomyelitis at L2-L3 with associated endplate erosion, compression deformities, and sig nificant paravertebral edema. No lytic or blastic lesions are seen. Soft tissues: The patient is cachectic and there is anasarca of the body wall. IMPRESSION: 1. Significantly suboptimal examination without oral and IV contrast. The Examination is also comprom ised by streak and motion artifact. 2. Findings of presumed acute on chronic discitis/osteomyelitis at L2-L3 has not appreciably changed as compared to 02/18/2022. There is significant associated paravertebral edema, and this was better ass essed on the recent contrast-enhanced examination. 3. Marked cardiomegaly with interlobular septal thickening at the lung bases 1 the appearance suggest s fluid overload/congestive failure and clinical correlation will be required. 4. There are small pleural effusions with dependent consolidation. These have increased from 02/18/2022 . 5. Anasarca of the body wall has increased from previous. 6. The gastric wall appears thickened, and there is also apparent circumferential wall thickening of the rectum. Correlate clinically for evidence of gastritis/proctitis. This could be further assessed with endoscopy if clinically warranted. 7. The gallbladder is distended and mildly thick-walled. There is no definitive CT evidence of acute cholecystitis. Clinical correlation will be required and if clinical history warranted this could be further assessed with ultrasound. 8. Additional findings as above. ACT 112: Negative or not required by law. Electronically signed by: Mulugeta Mccabe M.D. 02/22/2022 11:30 AM
[2022-02-22] MEDS ORDERED: FUROSEMIDE INJ 20 MG/2 ML VIAL IV ONE (13:32)
--- NOTE | 2022-02-22 18:08 | Hospitalist Progress Note ---
Date of Service February 22, 2022 Assessment & Plan (1) Hematemesis: Plan: - Admit to tele - Consult GI for possible endoscopy -during the patient's previous admission he was refusing endoscopy procedure and therefore was treated conservatively with Protonix. At this point it is hard to say if he has been compliant with taking pantoprazole as an outpatient due to his history of noncompliance. At this time he is hesitant to allow scope and feels that we will "ripped the scab off and he will bleed to ". Discussion was held regarding ability to evaluate the source of bleed and possible cauterize what is bleeding. Pt does not exhibit understanding of his condition. Will defer further workup to GI regarding such procedure - Continue protonix gtt for now - Hgb of 6 on admission, transfusing 2 U PRBCs today, give lasix 20 mg IV in between due to EF of 20%. - Repeat hgb level routinely - Cont PO iron - Keep NPO for now - WBC is noted to be 10.99 with a left shift, will follow, possibly reactive. No acute signs of infectious etiology, afebrile. Recently was evaluated by ID for osteomyelitis and discitis of L2-L3 during his last admission and completed 7 weeks and 3 days of cefepime, and 6 week course of daptomycin 8 mg/kg. As of 02/02 pt was taken off abx per ID recs. Will recheck CRP today. Was mentioned to have bone biopsy in the future if this remained elevated. Previously pt refused biopsy. 02/22/2022 no signs of GI bleed today received total of 5 units pRBCs Hemoglobin remains stable at 10 x 2 days change Protonix drip to IV BID, continue sucralfate advanced diet to minced and moist monitor still declines EGD despite extensive discussion regarding risks of not having it performed (2) Anemia due to blood loss: Plan: Acute Blood Loss Anemia - Secondary due to above - Transfusion as above, trend hemoglobin (3) Ischemic cardiomyopathy: Plan: - Unknown if the patient is taking his medications with history of noncompliance -We will hold Lasix, spironolactone and metoprolol secondary to acute GI bleed -Previously has not been a good candidate for ICD placement due to medication noncompliance and paranoid behavior -Echo reviewed and unchanged, has EF of 20% -Appears hypovolemic currently-transfusing as above, give lasix in between units of blood 02/22/2022 Blood pressure stable Chest discomfort resolved Positive mild chest discomfort: Possible demand ischemia from anemia troponin 0.3 x 2 echo noted Resumed metoprolol (4) Paroxysmal atrial fibrillation: Plan: - Currently in NSR, anticoagulation contraindicated secondary to GI bleed as above Resume metoprolol (5) HTN (hypertension): Plan: Resume metoprolol (6) Paranoid schizophrenia: Plan: -Mental status at baseline -CM to assist with discharge planning (7) Ambulatory dysfunction: Plan: -PT/OT consults (8) CKD (chronic kidney disease), stage III: Plan: -Chronic, stable (9) COPD (chronic obstructive pulmonary disease): Plan: -History of such, chronic, stable, does not appear to be in an acute COPD exacerbation at this time DVT PPx: - teds, scds, no anticoagulation in the setting of acute GI bleed CODE: Full code Dispo: Pending plan of care discussed with patient in detail and at length all questions answered he is understanding, agreeable, comfortable with the plan of care Admission and Anticipated Discharge Date Admission Date: February 18, 2022 Subjective ff up for GI bleed, etc seen resting in bed, sitting up having dinner in good spirits states he feels fine today no abdominal pain no hematemesis, melena/hematochezia no chest pain, dyspnea, palpitations, dizziness no other symptoms Review of Systems Review of Systems: all noted and negative except for above Physical Exam Physical Exam: General- oriented x 3, not in distress, speaks in sentences with no effort or accessory muscle use Eyes- anicteric Neck- no JVD Lungs- clear BS BL Heart- normal rate, regular rhythm; no murmurs Abdomen- normal bowel sounds, nondistended, soft, nontender Extremities- no pretibial edema, no calf tenderness Neuro- alert, oriented x 3; no gross focal neurologic deficits Skin- warm & dry Results & Data Results & Data ([facility]) Vital Signs (Past 12 Hours) Vital Signs Temp Pulse Pulse Resp BP Pulse Ox 02/22/22 15:05 37.1 C 76 16 135/77 96 02/22/22 15:00 79 02/22/22 11:46 36.3 C L 69 17 153/92 H 96 02/22/22 08:40 61 02/22/22 07:18 36.4 C L 72 16 143/84 H 99 all noted and reviewed including below (1) Hematemesis Nausea presence: with nausea Qualified Code(s): K92.0 - Hematemesis (2) COPD (chronic obstructive pulmonary disease) COPD type: unspecified COPD Qualified Code(s): J44.9 - Chronic obstructive pulmonary disease, unspecified
[2022-02-22] MEDS: PANTOprazole 40 MG in SYRINGE 0 ML IV SCH (21:28)
[2022-02-23] MEDS: HYDROCODONE/ACETAMINOPHEN 7.5/325MG TAB PO PRN ×4 (02:33→20:20)
[2022-02-23] MEDS: LEVOTHYROXINE SODIUM 50 MCG TABLET PO SCH (06:15)
[2022-02-23 08:04] LABS: Basophils # (auto) 0.01 K/uL (0-0.2); Basophils % (auto) 0.2 %; Eosinophils # (auto) 0.09 K/uL (0-0.5); Eosinophils % (auto) 1.4 %; Hematocrit (blood only) 29.6 % (42-52); Hemoglobin 9.4 g/dL (14.0-18.0); Immature Granulocytes # (auto) 0.02 K/uL (0.00-0.02); Immature Granulocytes % (auto) 0.3 %; Lymphocytes # (auto) 0.51 K/uL (1.2-3.4); Mean Corpuscular Hemoglobin 28.1 pg (25-34); Mean Corpuscular Hgb Conc 31.8 g/dL (32-36); Mean Corpuscular Volume 88.4 fL (80-100); Mean Platelet Volume 9.1 fL (7.4-10.4); Monocytes # (auto) 0.53 K/uL (0.11-0.59); Monocytes % (auto) 8.3 %; Neutrophils # (auto) 5.23 K/uL (1.4-6.5); Neutrophils % (auto) 81.8 %; Platelet Count 204 K/uL (130-400); RDW Coefficient of Variation 16.6 % (11.5-14.5); RDW Standard Deviation 53.2 fL (36.4-46.3); Red Blood Count 3.35 M/uL (4.7-6.1); White Blood Count 6.39 K/uL (4.8-10.8)
[2022-02-23 08:38] LABS: BUN Creatinine Ratio 21.9 (10-20); Calcium 7.9 mg/dl (8.5-10.1); Creatinine Clr Calc Pharmacy 57.3 ml/min; Est GFR (African American) 93.1 ml/min; Est GFR (Non-African American) 80.3 ml/min; Potassium 3.8 mmol/L (3.5-5.1)
[2022-02-23] MEDS: METOPROLOL SUCC 25MG EXT REL TAB PO SCH ×2 (10:08→20:21)
[2022-02-23] MEDS: MAGNESIUM OXIDE 400 MG TAB PO SCH ×2 (10:09→21:18)
[2022-02-23] MEDS: FERROUS SULFATE 325 MG TAB PO SCH (10:09)
[2022-02-23] MEDS: LIDOCAINE 5% 1 PATCH TD SCH (10:09)
[2022-02-23] MEDS: ATORVASTATIN 20 MG TAB PO SCH (10:09)
[2022-02-23] MEDS: POTASSIUM CHLORIDE PWD 20 MEQ PACK PO SCH ×2 (10:10→20:21)
[2022-02-23] MEDS: SUCRALFATE 1 GM/10 ML UDC PO SCH ×4 (10:11→20:21)
[2022-02-23] MEDS: ONDANSETRON INJ 2 MG/ML 2 ML VIAL IV PRN ×3 (11:33→20:20)
[2022-02-23] MEDS: PANTOprazole 40 MG in SYRINGE 0 ML IV SCH ×2 (12:27→20:20)
--- NOTE | 2022-02-23 18:10 | Hospitalist Progress Note ---
Date of Service February 23, 2022 Assessment & Plan (1) Hematemesis: Plan: Hematemesis Acute Blood loss Anemia H/O noncompliance with PPI use Patient refused endoscopy despite explaining the risks, benefits Appreciate GI input Continue Protonix gtt>>Protonix BID S/P PRBCs Continue Iron Supplement Monitor CBC Continue Carafate H/O Osteomyelitis and discitis of L2-L3 Diagnosed during his last admission Completed 7 weeks and 3 days of cefepime, and 6 week course of daptomycin 8 mg/kg. Currently off antibiotics (2) Anemia due to blood loss: Plan: Acute Blood Loss Anemia - Secondary due to above Transfuse as needed (3) Ischemic cardiomyopathy: Plan: -Unknown if the patient is taking his medications with history of noncompliance -Previously has not been a good candidate for ICD placement due to medication noncompliance and paranoid behavior -Echo reviewed and unchanged, has EF of 20% -Appears hypovolemic currently Resume home diuretics as able Continue Metoprolol (4) Paroxysmal atrial fibrillation: Plan: Currently in NSR Anticoagulation contraindicated secondary to GI bleed as above Continue Metoprolol (5) HTN (hypertension): Plan: Continue Current meds (6) Paranoid schizophrenia: Plan: -Mental status at baseline -CM to assist with discharge planning (7) Ambulatory dysfunction: Plan: -PT/OT consults (8) CKD (chronic kidney disease), stage III: Plan: -Chronic, stable (9) COPD (chronic obstructive pulmonary disease): Plan: Stable No signs of acute COPD exacerbation DVT Px: -Teds, SCDs Re: Acute GI bleeding CODE STATUS: Full code Admission and Anticipated Discharge Date Admission Date: February 18, 2022 Subjective Patient is seen and examined at bedside States having low back pain which is chronic Denies any acute bleeding issues Offers no other complaints Denies any chest pain, shortness of breath, dizziness, nausea, abdominal pain Review of Systems Review of Systems: All systems reviewed & are unremarkable except as noted in Subjective Physical Exam Physical Exam: Physical Exam: Vitals signs as noted above General Appearance: Thin, frail, chronically appearing, no apparent distress Head: normocephalic, Atraumatic Eyes: normal inspection, EOMI Neck: supple, Trachea midline Respiratory/Chest: Normal breath sounds, CTA, No accessory muscle use Cardiovascular: S1, S2, No murmur Abdomen/GI:Soft, Non tender, Bowel sounds present Extremities/Musculoskeletal:normal inspection, no edema, RLE in dressing Neurologic/Psych:AAOX3, grossly no focal neurological deficits Skin: normal color, warm Results & Data Results & Data ([facility]) Vital Signs (Past 12 Hours) Vital Signs Temp Pulse Pulse Pulse Resp BP Pulse Ox 02/23/22 15:51 36.6 C 74 18 143/82 H 100 02/23/22 12:00 36.6 C 14 123/67 99 02/23/22 11:52 66 02/23/22 08:26 36.6 C 78 19 138/49 L 98 Laboratory Results Short CBC 02/23/22 Range/Units 07:40 WBC 6.39 (4.8-10.8) K/uL Hgb 9.4 L (14.0-18.0) g/dL Hct 29.6 L (42-52) % Plt Count 204 (130-400) K/uL BMP 02/23/22 07:40 Sodium 141 Potassium 3.8 Chloride 109 H Carbon Dioxide 27 BUN 21 Creatinine 0.96 Glucose 91 Calcium 7.9 L (1) Hematemesis Nausea presence: with nausea Qualified Code(s): K92.0 - Hematemesis (2) COPD (chronic obstructive pulmonary disease) COPD type: unspecified COPD Qualified Code(s): J44.9 - Chronic obstructive pulmonary disease, unspecified
[2022-02-24] MEDS: ONDANSETRON INJ 2 MG/ML 2 ML VIAL IV PRN ×3 (00:27→12:38)
[2022-02-24] MEDS: HYDROCODONE/ACETAMINOPHEN 7.5/325MG TAB PO PRN ×3 (00:27→12:33)
[2022-02-24] MEDS: LEVOTHYROXINE SODIUM 50 MCG TABLET PO SCH (06:00)
[2022-02-24 07:27] LABS: Basophils # (auto) 0.01 K/uL (0-0.2); Basophils % (auto) 0.2 %; Eosinophils # (auto) 0.11 K/uL (0-0.5); Eosinophils % (auto) 1.8 %; Hematocrit (blood only) 28.5 % (42-52); Hemoglobin 9.1 g/dL (14.0-18.0); Immature Granulocytes # (auto) 0.01 K/uL (0.00-0.02); Immature Granulocytes % (auto) 0.2 %; Lymphocytes # (auto) 0.69 K/uL (1.2-3.4); Mean Corpuscular Hemoglobin 28.1 pg (25-34); Mean Corpuscular Hgb Conc 31.9 g/dL (32-36); Mean Platelet Volume 8.8 fL (7.4-10.4); Monocytes # (auto) 0.45 K/uL (0.11-0.59); Monocytes % (auto) 7.2 %; Neutrophils # (auto) 5.01 K/uL (1.4-6.5); Neutrophils % (auto) 79.6 %; Platelet Count 201 K/uL (130-400); RDW Coefficient of Variation 16.4 % (11.5-14.5); RDW Standard Deviation 52.8 fL (36.4-46.3); Red Blood Count 3.24 M/uL (4.7-6.1); White Blood Count 6.28 K/uL (4.8-10.8)
[2022-02-24 07:40] LABS: BUN Creatinine Ratio 21.6 (10-20); Calcium 7.8 mg/dl (8.5-10.1); Creatinine Clr Calc Pharmacy 62.5 ml/min; Est GFR (African American) 101.6 ml/min; Est GFR (Non-African American) 87.6 ml/min; Potassium 3.8 mmol/L (3.5-5.1)
[2022-02-24] MEDS: PANTOprazole 40 MG in SYRINGE 0 ML IV SCH (09:03)
[2022-02-24] MEDS: MAGNESIUM OXIDE 400 MG TAB PO SCH (09:03)
[2022-02-24] MEDS: METOPROLOL SUCC 25MG EXT REL TAB PO SCH (09:04)
[2022-02-24] MEDS: SUCRALFATE 1 GM/10 ML UDC PO SCH ×2 (09:04→15:18)
[2022-02-24] MEDS: POTASSIUM CHLORIDE PWD 20 MEQ PACK PO SCH ×2 (09:04→12:34)
[2022-02-24] MEDS: LIDOCAINE 5% 1 PATCH TD SCH (09:05)
[2022-02-24] MEDS: FERROUS SULFATE 325 MG TAB PO SCH (10:13)
[2022-02-24] MEDS: ATORVASTATIN 20 MG TAB PO SCH (10:13)
--- NOTE | 2022-02-24 13:30 | Hospitalist Progress Note ---
Date of Service February 24, 2022 Assessment & Plan (1) Hematemesis: Plan: Hematemesis Acute Blood loss Anemia H/O noncompliance with PPI use Patient refused endoscopy despite explaining the risks, benefits Appreciate GI input Continue Protonix gtt>>Protonix BID S/P PRBCs Continue Iron Supplement Monitor CBC Continue Carafate Refuses further work up including Endoscopy despite explaining the risks and complications if left untreated on multiple occasions. Hb Stable No recurrence of bleeding Advised to follow up with GI as outpatient H/O Osteomyelitis and discitis of L2-L3 Diagnosed during his last admission Completed 7 weeks and 3 days of cefepime, and 6 week course of daptomycin 8 mg/kg. Currently off antibiotics (2) Anemia due to blood loss: Plan: Acute Blood Loss Anemia - Secondary due to above Transfuse as needed (3) Ischemic cardiomyopathy: Plan: -Unknown if the patient is taking his medications with history of noncompliance -Previously has not been a good candidate for ICD placement due to medication noncompliance and paranoid behavior -Echo reviewed and unchanged, has EF of 20% -Appears hypovolemic currently Resume home diuretics as able Continue Metoprolol (4) Paroxysmal atrial fibrillation: Plan: Currently in NSR Anticoagulation contraindicated secondary to GI bleed as above Continue Metoprolol (5) HTN (hypertension): Plan: Continue Current meds (6) Paranoid schizophrenia: Plan: -Mental status at baseline -CM to assist with discharge planning (7) Ambulatory dysfunction: Plan: -PT/OT consults (8) CKD (chronic kidney disease), stage III: Plan: -Chronic, stable (9) COPD (chronic obstructive pulmonary disease): Plan: Stable No signs of acute COPD exacerbation DVT Px: -Teds, SCDs Re: Acute GI bleeding CODE STATUS: Full code Admission and Anticipated Discharge Date Admission Date: February 18, 2022 Subjective Patient is seen and examined at bedside Reports nausea overnight but otherwise feels well. No recurrence of any bleeding issues Denies any chest pain, shortness of breath, dizziness, abdominal pain Review of Systems Review of Systems: All systems reviewed & are unremarkable except as noted in Subjective Physical Exam Physical Exam: Physical Exam: Vitals signs as noted above General Appearance: Thin, frail, chronically appearing, no apparent distress Head: normocephalic, Atraumatic Eyes: normal inspection, EOMI Neck: supple, Trachea midline Respiratory/Chest: Normal breath sounds, CTA, No accessory muscle use Cardiovascular: S1, S2, No murmur Abdomen/GI:Soft, Non tender, Bowel sounds present Extremities/Musculoskeletal:normal inspection, no edema, RLE in dressing Neurologic/Psych:AAOX3, grossly no focal neurological deficits Skin: normal color, warm Results & Data Results & Data ([facility]) Vital Signs (Past 12 Hours) Vital Signs Temp Pulse Resp BP Pulse Ox 02/24/22 08:06 36.3 C L 69 16 143/79 H 98 Laboratory Results Short CBC 02/24/22 Range/Units 06:46 WBC 6.28 (4.8-10.8) K/uL Hgb 9.1 L (14.0-18.0) g/dL Hct 28.5 L (42-52) % Plt Count 201 (130-400) K/uL BMP 02/24/22 06:46 Sodium 142 Potassium 3.8 Chloride 110 H Carbon Dioxide 26 BUN 19 Creatinine 0.88 Glucose 97 Calcium 7.8 L (1) Hematemesis Nausea presence: with nausea Qualified Code(s): K92.0 - Hematemesis (2) COPD (chronic obstructive pulmonary disease) COPD type: unspecified COPD Qualified Code(s): J44.9 - Chronic obstructive pulmonary disease, unspecified
--- NOTE | 2022-02-24 13:49 | Discharge Summary ---
Date of Service February 24, 2022 Admission HPI Per Admitting Provider This is a 71 yo M with PMHx of chronic systolic heart failure secondary to ischemic cardiomyopathy EF 15-20%, TTE 2019), severe mitral regurgitation, CAD status post stent, hypertension, hx PAF, paranoid schizophrenia, past hx DVT, hx testicular CA sp surgery and chemotherapy, past tobacco abuse, chronic anemia (baseline hemoglobin of 10-11), hypothyroidism, history chronic leg lymphedema, medication noncompliance. He has spent the majority of the past 3 months confined in the hospital. Recently admitted to the hospital here from 12/06/21- 02/08/22 for osteomyelitis/discitis of lumbar spine, upper Gi bleed with duodenitis vs peptic ulcer disease with needs for blood transfusion and protonix gtt, subsequently developed bout of Afib with RVR likely due to underlying upper GI bleed which was controlled with metoprolol. No anticoagulation was initiated due to GiB. Prior to this admission pt was here from 11/19/21 -11/30/21 for ambulatory dysfunction and COVID-19 illness, he is unvaccinated. Today the patient presents with hematemesis which started around midnight,he reports 5 very large episodes with dark red blood. He notes that he has been nauseous every 20 minutes and has a mid left sided abdominal pain which is nearly intolerable, denies dark tarry stools, diarrhea, or BRBPR. He also reports having chest heaviness and pain during these episodes of retching and vomiting blood. He has requested Dilaudid 3 times during my visit. Patient has been taking hydrocodone at home for pain and specifically states that it has his left hip which hurts. He has been walking at home but doing so with his hands on his knees, he does not use any assistive devices such as cane or walker at baseline. He in regards to his medications, he is unable to tell me exactly what medications he is taking. 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 Patient lives by himself in an apartment. He denies any lightheadedn ess, dizziness or shortness of breath. During the patient's previous admission he was refusing endoscopy procedure and therefore was treated conservatively with Protonix. At this point it is hard to say if he has been compliant with taking pantoprazole as an outpatient due to his history of noncompliance. At this time he is hesitant to allow scope and feels that we will "ripped the scab off and he will bleed to ". He reports not wanting a tube down his throat. He is willing to talk with the GI team, but ultimately wants "to be watched here over night and get some dilaudid". Admission Exam Per Admitting Provider Physical Exam Physical Exam: General: awake, alert, no apparent distress, + pallor, + thin, BMI 18.4 Head: Normocephalic, atraumatic ENT: PERRL, EOMI, no pharyngeal exudate, mucous membranes moist, + endentulous Chest: Clear to auscultation, on room air, no adventitious breath sounds Cardiac: Regular rate and rhythm, no murmur, no JVD, normal peripheral pulses, good capillary refill Abdominal: NABS x 4 quadrants, soft, nondistended, + dramatic response with light palpation to abdomen in all quadrants, jumping in pain, no rebound or guarding Extremities: Normal inspection, no peripheral edema or erythema, calfs nontender to palpation Psych: History of paranoid schizophrenia, initially upon my entering to the room he is hesitant to speak with me, dramatic regarding his pain and requesting Dilaudid, at times speaks in a nearly inaudible voice, then opens his eyes wide and repeats himself loudly. Neuro: AAO x 3, strength intact bilaterally and rated 5/5, no motor deficits, speech is clear, no peripheral sensory deficits Principal Diagnosis Hematemesis Acute Blood loss Anemia Discharge Data Allergies Allergy/AdvReac Type Severity Reaction Status Date / Time horse dander Allergy Unknown Unknown Verified 02/18/22 07:17 tetanus toxoid, adsorbed Allergy Unknown Unknown Verified 02/18/22 07:17 Consultations 02/18/22 07:14 ED Decision to Admit Stat 02/18/22 08:32 Consult Gastroenterology Routine Procedures Performed Operation Date: 02/18/22 16:45 <No data on this case meets the specified criteria> Ordered Studies 02/18/22 07:30 CT abd pelvis IV con only Stat 02/22/22 10:04 CT abd pelvis wo con Stat Hospital Course (1) Hematemesis: Hematemesis Acute Blood loss Anemia H/O noncompliance with PPI use Patient refused endoscopy despite explaining the risks, benefits Appreciate GI input Continue Protonix gtt>>Protonix BID S/P PRBCs Continue Iron Supplement Monitor CBC Continue Carafate Refuses further work up including Endoscopy despite explaining the risks and complications if left untreated on multiple occasions. Hb Stable No recurrence of bleeding Advised to follow up with GI as outpatient H/O Osteomyelitis and discitis of L2-L3 Diagnosed during his last admission Completed 7 weeks and 3 days of cefepime, and 6 week course of daptomycin 8 mg/kg. Currently off antibiotics (2) Anemia due to blood loss: Acute Blood Loss Anemia - Secondary due to above Transfuse as needed (3) Ischemic cardiomyopathy: -Unknown if the patient is taking his medications with history of noncomp liance -Previously has not been a good candidate for ICD placement due to medication noncompliance and paranoid behavior -Echo reviewed and unchanged, has EF of 20% -Appears hypovolemic currently Resume home diuretics as able Continue Metoprolol (4) Paroxysmal atrial fibrillation: Currently in NSR Anticoagulation contraindicated secondary to GI bleed as above Continue Metoprolol (5) HTN (hypertension): Continue Current meds (6) Paranoid schizophrenia: -Mental status at baseline -CM to assist with discharge planning (7) Ambulatory dysfunction: -PT/OT consults (8) CKD (chronic kidney disease), stage III: -Chronic, stable (9) COPD (chronic obstructive pulmonary disease): Stable No signs of acute COPD exacerbation DVT Px: -Teds, SCDs Re: Acute GI bleeding CODE STATUS: Full code Total Time Total Time Spent Total Time Spent (In Minutes): 44 minutes Discharge Plan Discharge Items Patient Disposition: Home - Home Health Services Reason For Visit: UPPER GI BLEED, HEMATEMESIS Discharge Diagnosis: Hematemesis Acute Blood loss Anemia Activity: Per Instructions section Exercise/Sports: Wait until after follow-up appointment Non-emergency contact: Primary Care Provider Call non-emergency contact if: you have any medication questions, your symptoms worsen, your pain is concerning for you and you have a fever Follow-up/Referrals: Misty Vora MD [Primary Care Provider] - (Date & Time 03/01/2022 2:00 PM Provider Misty Vora MD Department General Internal Medicine [facility] ) Diet: Low Fiber and Low Sodium (2gm) Diet Texture: Easy to Chew Addtl Attending Provider Instructions: --Follow up with your primary care physician Dr. Misty Vora on 03/01/2022 2:00 PM as scheduled --Follow up with your [facility] in 2 weeks Do not take group of medications belonging to NSAIDs group -can cause worsening of your risk for bleeding. List Of these medications includes but not limited to: Aspirin Diclofenac Ibuprofen, Motrin, Advil Toradol,ketorolac Naproxen, Aleve, Naprosyn You can take Tylenol as needed for pain or fever When buying [id number] pain medications please consult with pharmacy if you are not sure regarding ingredients, as a lot of the pain medications have combination of NSAIDs and Tylenol. Seek immediate medical attention if your symptoms reoccur or worsen Please take all medications as instructed on discharge list below. Please call if you have any questions or problems. You can reach a [facility] hospitalist on duty at [facility] 24 hours a day by calling [phone] Pending Studies at Discharge: No Stand-Alone Forms: My [facility] [address], Smoking Cessation Medications and DC Order Prescriptions: New potassium chloride 20 mEq tablet,ER particles/crystals 20 meq PO DAILY Qty: 14 RF: 0 Mag 64 64 mg tablet,delayed release (DR/EC) 64 mg PO BID Qty: 14 RF: 0 sucralfate [Carafate] 1 gram tablet 1 g PO ACHS 28 Days Qty: 28 RF: 0 Continued polyethylene glycol 3350 [Miralax] 17 gram Powder In Packet 17 g PO DIRECTED PRN (Reason: constipation) 30 Days Qty: 30 RF: 0 furosemide 40 mg Tablet 40 mg PO DIRECTED Qty: 30 RF: 0 metoprolol succinate 25 mg tablet extended release 24 hr 12.5 mg PO BID PRN (Reason: WHEN B/P ELEVATED) Qty: 30 RF: 0 lidocaine 5 % Adhesive Patch,Medicated 1 patch transdermal HS Qty: 30 RF: 0 atorvastatin 20 mg tablet 20 mg PO QAM RF: 0 hydrocodone-acetaminophen 7.5-325 mg tablet 1 tab PO Q4H PRN (Reason: Pain) RF: 0 spironolactone 25 mg tablet 12.5 mg PO QAM RF: 0 levothyroxine 50 mcg tablet 50 mcg PO DAILYBB RF: 0 ferrous sulfate 325 mg (65 mg iron) tablet,delayed release (DR/EC) 325 mg PO QAM RF: 0 pantoprazole 40 mg Tablet,Delayed Release (Dr/Ec) 40 mg PO BID Qty: 60 RF: 0 Discharge Orders: Discharge Order (Routine); Ordered 02/24/22 Ordered By: Uche Chatman Admission Data Admit Date/Time: 02/18/22 08:32 Attending Provider: Uche Chatman Admit Provider: Patrick Sexton Primary Care Provider: Misty Vora Other Providers: [facility] ; Patrick Sexton ; Oscar Goel
== END 2022-02-24 16:09 | disposition home health service (06) | DRG 378 ==
LOC: ED 04:59 → 2S 08:32 → SUATTDRO 08:32 → 2S 09:56 → 3W 02-23 15:45
DX: I48.0 Paroxysmal atrial fibrillation; G89.29 Other chronic pain; Z79.890 Hormone replacement therapy; I25.10 Atherosclerotic heart disease of native coronary artery without angina pectoris; Z95.5 Presence of coronary angioplasty implant and graft; F20.0 Paranoid schizophrenia; Z86.718 Personal history of other venous thrombosis and embolism; I50.22 Chronic systolic (congestive) heart failure; Z53.29 Procedure and treatment not carried out because of patient's decision for other reasons; I25.5 Ischemic cardiomyopathy; I25.2 Old myocardial infarction; Z87.891 Personal history of nicotine dependence; I13.0 Hypertensive heart and chronic kidney disease with heart failure and stage 1 through stage 4 chronic kidney disease, or unspecified chronic kidney disease; D62 Acute posthemorrhagic anemia; J44.9 Chronic obstructive pulmonary disease, unspecified; Z92.21 Personal history of antineoplastic chemotherapy; K92.0 Hematemesis; N18.30 Chronic kidney disease, stage 3 unspecified; Z91.14 Patient's other noncompliance with medication regimen; Z85.47 Personal history of malignant neoplasm of testis; Z91.048 Other nonmedicinal substance allergy status; Z88.7 Allergy status to serum and vaccine; E03.9 Hypothyroidism, unspecified